=== PATIENT | female | born 1960 | race Caucasian/White ===

== ENCOUNTER 2019-11-30 14:08 | Outpatient (CLI) | payer MEDICARE, MEDICAID, SELFPAY | END 2019-11-30 14:09 | disposition home or self-care (01) | LOC: LAB 14:13 | PROVIDERS: Family Provider Family Medicine; PCP Family Medicine; Visit Provider Nurse Practitioner Family | DX: R91.8 Other nonspecific abnormal finding of lung field (principal) | CPT/HCPCS: 36415; 85610 ==

== ENCOUNTER → 2020-01-12 12:47 | Outpatient (BNVA) | payer MEDICARE, MEDICAID, SELFPAY | PROVIDERS: Family Provider Family Medicine; PCP Family Medicine; Referring Provider Registered Nurse; Visit Provider Anesthesiology Pain Medicine | DX: M54.16 Radiculopathy, lumbar region (principal); M54.2 Cervicalgia; M96.1 Postlaminectomy syndrome, not elsewhere classified; F17.210 Nicotine dependence, cigarettes, uncomplicated; Z79.891 Long term (current) use of opiate analgesic | CPT/HCPCS: 99203; 99999 ==

== ENCOUNTER → 2020-02-09 09:39 | Outpatient (BNVA) | payer MEDICARE, MEDICAID, SELFPAY | PROVIDERS: Family Provider Family Medicine; PCP Family Medicine; Visit Provider Anesthesiology Pain Medicine | DX: M54.2 Cervicalgia (principal); M96.1 Postlaminectomy syndrome, not elsewhere classified; M54.16 Radiculopathy, lumbar region; F17.210 Nicotine dependence, cigarettes, uncomplicated; Z79.891 Long term (current) use of opiate analgesic | CPT/HCPCS: 99213; 99214 ==

== ENCOUNTER → 2020-04-13 08:52 | Outpatient (BNVA) | payer MEDICARE, MEDICAID, SELFPAY | PROVIDERS: Family Provider Family Medicine; PCP Family Medicine; Visit Provider Anesthesiology Pain Medicine | DX: M54.16 Radiculopathy, lumbar region (principal); M54.9 Dorsalgia, unspecified; M96.1 Postlaminectomy syndrome, not elsewhere classified; M43.6 Torticollis; M54.2 Cervicalgia; F17.210 Nicotine dependence, cigarettes, uncomplicated; Z79.891 Long term (current) use of opiate analgesic | CPT/HCPCS: 99213 ==

== ENCOUNTER → 2020-04-22 13:03 | Outpatient (BNVA) | payer MEDICARE, MEDICAID, SELFPAY | PROVIDERS: Family Provider Family Medicine; PCP Family Medicine; Visit Provider Anesthesiology Pain Medicine | DX: M43.6 Torticollis (principal); M54.2 Cervicalgia; F17.210 Nicotine dependence, cigarettes, uncomplicated; Z79.891 Long term (current) use of opiate analgesic | CPT/HCPCS: 64616; 64642; J0585 ==

== ENCOUNTER → 2020-05-06 10:24 | Outpatient (BNVA) | payer MEDICARE, MEDICAID, SELFPAY | PROVIDERS: Family Provider Family Medicine; PCP Family Medicine; Visit Provider Anesthesiology Pain Medicine | DX: M54.16 Radiculopathy, lumbar region (principal); M54.9 Dorsalgia, unspecified; M96.1 Postlaminectomy syndrome, not elsewhere classified; M43.6 Torticollis; M54.2 Cervicalgia | CPT/HCPCS: 99213 ==

== ENCOUNTER 2020-06-12 21:48 | Emergency (ER) | payer MEDICARE, MEDICAID, SELFPAY ==
[2020-06-12 22:01] VITALS: BP 164/88; PULSE 90; RESP 20; TEMP 36.9; O2SAT 95; BMI 29.8
--- NOTE | 2020-06-12 22:16 | XRR_ITS ---
PROCEDURE INFORMATION: Exam: XR Chest, 1 View Exam date and time: 06/12/2020 11:09 PM Age: 60 years old Clinical indication: Prior surgery; Surgery type: C spine; Patient HX: RT side mouth droop; Additional info: Stroke symptoms, hypertensive TECHNIQUE: Imaging protocol: XR of the chest Views: Frontal portable supine view of the chest. COMPARISON: CR Chest 1 [place] [id number] 05/28/2019 11:00 AM FINDINGS: Lungs: Stable right basilar pulmonary subsegmental atelectasis. The lungs are otherwise peripherally clear bilaterally. The pulmonary vasculature is normal. Pleural space: No pleural effusion. No pneumothorax. Heart/Mediastinum: The heart is normal in size and contour. Mediastinum: Stable. Diaphragm: The right hemidiaphragm remains moderately elevated. Bones/joints: Posterior cervicothoracic fixation hardware. Lower cervical spinal anterior fixation hardware. Right lateral vertebral body marginal osteophytes are noted at multiple thoracic spinal levels. XR/XR chest 1V portable [id number] IMPRESSION: Stable right basilar pulmonary subsegmental atelectasis.
--- NOTE | 2020-06-12 22:16 | CTR_ITS ---
PROCEDURE INFORMATION: Exam: CT Head Without Contrast Exam date and time: 06/12/2020 10:26 PM Age: 60 years old Clinical indication: Weakness, facial; Prior surgery; Surgery date: 6+ months; Surgery type: Spine; Additional info: Stroke symptoms TECHNIQUE: Imaging protocol: Computed tomography of the head without contrast. Radiation optimization: All CT scans at this facility use at least one of these dose optimization techniques: automated exposure control; mA and/or kV adjustment per patient size (includes targeted exams where dose is matched to clinical indication); or iterative reconstruction. COMPARISON: CT head wo con* [id number] 05/28/2019 1:44 PM RADIATION DOSE METRICS: Total DLP (mGy-cm): 1592.16 FINDINGS: Brain: No acute intracranial hemorrhage or mass effect. No definite acute infarct by CT. MRI could be more sensitive/specific for detection, as clinically directed. Ventricles: Ventricle size is normal for age. Bones/joints: No definite acute skull fracture. Prior cranial-cervical fusion. Sinuses: Included paranasal sinuses are essentially clear. Mastoid air cells: No significant acute finding. CT/CT head wo con* [id number] IMPRESSION: 1. No acute intracranial hemorrhage or mass effect. 2. No definite acute infarct by CT, see above. 3. Other findings discussed above. 4. Some limitations due to artifact from patient motion. Radiation Dose CTDIVOL = (mGy): DLP = 1592.16 (mGy-cm)
--- NOTE | 2020-06-12 22:18 | ECG_ITS ---
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 Measurements Intervals [place] Rate: 78 P: 72 [place]: 160 QRS: 50 QRSD: 77 T: 66 QT: 375 QTc: 428 Interpretive Statements SINUS RHYTHM POSSIBLE LEFT ATRIAL ENLARGEMENT [-0.1mV P WAVE IN V1/V2] MINIMAL ST DEPRESSION [0.025+ mV ST DEPRESSION] Compared to ECG 05/28/2019 14:41:07 Sinus tachycardia no longer present ST (T wave) deviation still present Electronically Signed On 06-13-2020 21:28:08 CDT by Dora Rodríguez M.D. [id number]
[2020-06-12 22:31] VITALS: BP 193/80; PULSE 88; RESP 16; O2SAT 96
[2020-06-12 23:04] VITALS: RESP 16; O2SAT 97
[2020-06-12] MEDS: ondansetron 2 mg/ML SDV 2 mL 4 MG IVP (23:04)
[2020-06-12] MEDS: fentaNYL 50 mcg/mL INJ 2mL 100 MCG IVP (23:04)
[2020-06-12 23:19] LABS: Basophils # 0.1 10^3/uL (0.0-0.1); Basophils % 0.3 %; Eosinophils # 0.1 10^3/uL (0.0-0.8); Eosinophils % 0.6 %; Hematocrit 46.3 % (37.0-47.0); Hemoglobin 14.9 g/dL (11.5-15.3); Lymphocytes # 1.8 10^3/uL (0.8-4.8); Mean Corpuscular HGB Conc 32.2 g/dL (30.0-36.0); Mean Corpuscular Hemoglobin 32.3 pg (28.0-34.0); Mean Corpuscular Volume 100.2 fL (81-99); Mean Platelet Volume 11.2 fL (7.4-10.4); Monocytes # 1.4 10^3/uL (0.2-0.9); Monocytes % 7.7 %; Neutrophils # 14.71 10^3/uL (1.8-7.7); Neutrophils % 81.1 %; Nucleated Red Blood Cells % 0 %; Platelet Count 329 10^3/cmm (130-400); Red Blood Count 4.62 10^6/uL (4.1-5.3); Red Cell Distribution Width 13.8 % (12.1-15.1); White Blood Count 18.1 10^3/uL (4.0-10.0)
[2020-06-12 23:47] LABS: Alanine Aminotransferase 14 U/L (0-33); Albumin Level 4.6 g/dL (3.5-5.2); Alkaline Phosphatase 71 IU/L (35-105); Aspartate Amino Transferase 17 U/L (0-32); Blood Urea Nitrogen 12 mg/dL (8-23); Calcium 10.9 mg/dL (8.5-10.5); Carbon Dioxide 28 mmol/L (22-29); Chloride 98 mmol/L (98-107); Chol HDL Ratio 4.67 mg/dL (0.0-4.40); Cholesterol 182 mg/dL (0-200); Creatine Phosphokinase 92 U/L (26-192); Globulin 3.4 g/dL (1.3-4.6); Glomerular Filtration Rate 162.8 mL/min (90-130); Glucose 79 mg/dL (65-115); HDL Cholesterol 39 mg/dL (60-100); LDL Cholesterol Calculated 86 mg/dL (50-129); LDL HDL Ratio 2.21 RATIO (0.00-3.22); Osmolality Calculated 283 mOsm/kg (285-295); Sodium 139 mmol/L (136-145); Total Bilirubin 0.2 mg/dL (0.15-1.2); Triglycerides 287 mg/dL (0-150)
[2020-06-12 23:49] LABS: Alcohol Level < 10 mg/dL (0-10)
[2020-06-12 23:53] LABS: INR 0.97 (0.8-1.2)
[2020-06-12 23:54] LABS: Partial Thromboplastin Time 31.4 SECONDS (23.9-36.7)
[2020-06-13] LABS: Anion Gap 16.6 (5-19); Potassium 3.6 mmol/L (3.5-5.1)
[2020-06-13 00:44] VITALS: BP 143/96; PULSE 82; RESP 16; O2SAT 97
[2020-06-13 00:45] VITALS: RESP 16
[2020-06-13 00:59] LABS: Amphetamines Screen Urine Positive (Negative); Barbiturates Screen Urine Negative (Negative); Benzodiazepines Screen Urine Positive (Negative); Cocaine Screen Urine Negative (Negative); Opiate Screen Urine Negative (Negative); PCP Screen Urine Positive (Negative); THC Screen Urine Negative (Negative)
[2020-06-13 01:00] LABS: Add Urine Culture? Yes; Add Urine Microscopic? YES; Bacteria Urine 2+; Bilirubin Urine Neg (NEGATIVE); Blood Urine 3+ (Negative); Glucose Urine UA Norm (Normal); Ketones Urine Negative (Negative); Leukocyte Esterase Urine Negative (Negative); Nitrate Urine Negative (Negative); Protein Urine Neg (Negative); RBC Urine 0-4 /hpf (0-2); Squamous Epithelial Cell Urine 0-4 (0-5); Urine Appearance SL Hazy (CLEAR); Urine Color Yellow (Yellow); Urobilinogen Urine Norm (Negative); WBC Urine 0-4 /hpf (0-5); pH Urine 6 (5-7)
[2020-06-13 02:42] VITALS: BP 175/105; PULSE 86; RESP 15; O2SAT 97
--- NOTE | 2020-06-13 08:57 | ED_ITS ---
HPI - Neuro Symptoms/Deficit General: Chief Complaint: Neuro Symptoms/Deficit Stated Complaint: hypertensive Time Seen by Provider: 06/12/20 22:02 History of Present Illness: HPI Narrative: 60-year-old female presents with multiple complaints. She is a little hard to sort out, and is a poor historian. She reports that on the morning prior, she had experienced a sudden change in her vision, with weakness that was essentially her whole body. She is unable to walk at baseline and has chronic contractures of her lower extremities uses a wheelchair. She states she was unable to move her arms. This quickly resolved. She has been hypertensive at home she says. She also admitted to EMS, that she may have smoked illicit substances prior to their arrival. Onset (ago): day(s) (1.5) Location: speech History of same: No Severity: moderate Quality: weak and tingling Relieving factors: time Exacerbating factors: none Context: sudden onset On Anticoagulants: No Associated symptoms: Reports chest pain, headache(s), nausea and short of breath; Deny fevers/chills or vomiting Treatments Prior to Arrival: none Review of Systems Const: Denies: fever(s) or chills Eyes: Reports: change in vision ENMT: Denies: swelling of lips/tongue, change in hearing or sinus pain Card: Reports: chest pain and palpitations; Denies: irregular heart rhythm, swelling of feet/ankles, dyspnea on exertion or orthopnea Resp: Denies: dyspnea, productive cough, non-productive cough or wheezing GI: Reports: nausea; Denies: vomiting : Denies: dysuria or hematuria Musc: Reports: neck pain and back pain Skin/Breast: Denies: rash, pruritus or erythema Neuro: Reports: headache(s) Psych: Reports: visual hallucinations; Denies: anxiety or auditory hallucinations PFSH ED PFSH: Family History Family/Other Hypertension Depression Anxiety Diabetes Social History Smoking and tobacco status: current every day smoker cigarettes Packs smoked per day: 1.5 Quit status (tobacco): considering quitting Second hand smoke exposure: No Alcohol intake: never Household members: spouse Marital status: History of recent travel: No Physical Exam Const: GENERAL APPEARANCE: well developed ORIENTATION/CONSCIOUSNESS: Yes oriented to person and Yes oriented to place; not oriented to time HENMT: COMMON NORMALS: normocephalic, external ears normal and Normal external nose present HEAD & SCALP: normocephalic FACE & SINUS: normal facial exam NOSE: Normal external nose present and No nasal discharge present EXTERNAL EAR: Yes external ears normal Eye: COMMON NORMALS: Equal, round and reactive pupils present, EOMs intact bilaterally and conjunctivae normal EYELID: eyelids normal CONJUNCTIVA: Yes conjunctivae normal PUPIL: Yes Equal, round and reactive pupils present Neck/C-Spine: GENERAL: No tracheal deviation CERVICAL SPINE: Yes Cervical spine tenderness Chest: COMMONS NORMALS: normal inspection of the chest CHEST: No tenderness Resp: COMMON NORMALS: clear to auscultation bilaterally EFFORT & INSPECTION: Yes tachypneic, No respiratory distress, No retractions, No uses accessory muscles and No tracheal deviation AUSCULTATION: clear to auscultation bilaterally, no rhonchi, no wheezes and lung sounds not diminished Cardio: COMMON NORMALS: regular rate and regular rhythm RATE: regular rate RHYTHM: regular rhythm HEART SOUNDS: no murmurs PERIPHERAL PULSES: radial pulses present GI: INSPECTION: No abdominal distension AUSCULTATION: No Hyperactive bowel sounds present and No Hypoactive bowel sounds present PALPATION: No Guarding due to palpation present (GI) and No Rigid due to palpation PERCUSSION: no dullness to percussion and no tympanic to percussion Neuro: SENSORIUM/ORIENTATION: Yes oriented to person, Yes oriented to place and No oriented to time Psych: APPEARANCE: Yes grossly normal and Yes unkempt ATTITUDE: Yes bizarre ACTIVITY/MOTOR BEHAVIOR: Yes psychomotor agitation and Yes fidgeting SPEECH: Yes rapid MOOD & AFFECT: Yes anxious THOUGHT PROCESS: disorganized Course Vital Signs: Vital signs: Vital Signs Temperature 98.5 F 06/12/20 22:01 Pulse Rate 86 06/13/20 02:42 Respiratory Rate 15 06/13/20 02:42 Blood Pressure 175/105 06/13/20 02:42 Pulse Oximetry 97 06/13/20 02:42 MDM - Neuro Symptoms/Deficit MDM Narrative: Medical decision making narrative: This 60-year-old lady presents with neck pain and headache. She has been hypertensive. Her hypertension improved on its own. Her white blood cell count was 18 with a bit of a left shift. She is afebrile. There was no source of infection found chest x-ray was negative. Head CT did not reveal any hemorrhage. Her urine drug screen was positive for multiple substances including PCP, methamphetamine, and benzodiazepines. Her headache improved with administration of pain medication. She will be allowed home. Lab Data: Labs: Lab Results 06/12/20 06/12/20 06/12/20 Range/Units 23:05 23:05 23:05 WBC 18.1 H (4.0-10.0) 10^3/ uL RBC 4.62 (4.1-5.3) 10^6/u L Hgb 14.9 (11.5-15.3) g/dL Hct 46.3 (37.0-47.0) % MCV 100.2 H (81-99) fL MCH 32.3 (28.0-34.0) pg MCHC 32.2 (30.0-36.0) g/dL RDW 13.8 (12.1-15.1) % Plt Count 329 (130-400) 10^3/c mm MPV 11.2 H (7.4-10.4) fL Neut % (Auto) 81.1 % Lymph % (Auto) 10.0 % [place] % (Auto) 7.7 % Eos % (Auto) 0.6 % Baso % (Auto) 0.3 % Neut # (Auto) 14.71 H (1.8-7.7) 10^3/u L Lymph # (Auto) 1.8 (0.8-4.8) 10^3/u L [place] # (Auto) 1.4 H (0.2-0.9) 10^3/u L Eos # (Auto) 0.1 (0.0-0.8) 10^3/u L Baso # (Auto) 0.1 (0.0-0.1) 10^3/u L Nucleated RBC % (a uto) 0 % Nucleated RBCs # 0.0 /100WBC PT 13.20 (10.5-13.3) SECO NDS INR 0.97 (0.8-1.2) APTT 31.4 (23.9-36.7) SECO NDS Sodium 139 (136-145) mmol/L Potassium 3.6 (3.5-5.1) mmol/L Chloride 98 (98-107) mmol/L Carbon Dioxide 28 (22-29) mmol/L Anion Gap 16.6 (5-19) BUN 12 (8-23) mg/dL Creatinine 0.4 L (0.5-0.9) mg/dL GFR Calculation 162.8 H (90-130) mL/min Glucose 79 (65-115) mg/dL Calculated Osmolal ity 283 L (285-295) mOsm/k g Calcium 10.9 H (8.5-10.5) mg/dL Total Bilirubin 0.2 (0.15-1.2) mg/dL AST 17 (0-32) U/L ALT 14 (0-33) U/L Alkaline Phosphata se 71 (35-105) IU/L Creatine Kinase 92 (26-192) U/L Total Protein 8.0 (6.6-8.7) g/dL Albumin 4.6 (3.5-5.2) g/dL Globulin 3.4 (1.3-4.6) g/dL Triglycerides 287 H (0-150) mg/dL Cholesterol 182 (0-200) mg/dL LDL Cholesterol, C alc 86 (50-129) mg/dL HDL Cholesterol 39 L (60-100) mg/dL LDL/HDL Ratio 2.21 (0.00-3.22) RATI O Cholesterol/HDL Ra shaan 4.67 H (0.0-4.40) mg/dL Urine Color (Yellow) Urine Appearance (CLEAR) Urine pH (5-7) Ur Specific Gravit y (1.005-1.030) Urine Protein (Negative) Urine Glucose (UA) (Normal) Urine Ketones (Negative) Urine Blood (Negative) Urine Nitrate (Negative) Urine Bilirubin (NEGATIVE) Urine Urobilinogen (Negative) mg/dL Ur Leukocyte Maria C ase (Negative) Urine RBC (0-2) /hpf Urine WBC (0-5) /hpf Ur Squamous Epith Cells (0-5) Amorphous Sediment Urine Bacteria (NONE) Urine Opiates Scre en (Negative) ng/mL Ur Barbiturates Sc reen (Negative) ng/mL Ur Phencyclidine S crn (Negative) ng/mL Ur Amphetamines Sc reen (Negative) ng/mL U Benzodiazepines Scrn (Negative) ng/mL Urine Cocaine Scre en (Negative) ng/mL U Marijuana (THC) Screen (Negative) ng/mL Ethyl Alcohol < 10 (0-10) mg/dL 06/13/20 06/13/20 Range/Units 00:46 00:46 WBC (4.0-10.0) 10^3/ uL RBC (4.1-5.3) 10^6/u L Hgb (11.5-15.3) g/dL Hct (37.0-47.0) % MCV (81-99) fL MCH (28.0-34.0) pg MCHC (30.0-36.0) g/dL RDW (12.1-15.1) % Plt Count (130-400) 10^3/c mm MPV (7.4-10.4) fL Neut % (Auto) % Lymph % (Auto) % [place] % (Auto) % Eos % (Auto) % Baso % (Auto) % Neut # (Auto) (1.8-7.7) 10^3/u L Lymph # (Auto) (0.8-4.8) 10^3/u L [place] # (Auto) (0.2-0.9) 10^3/u L Eos # (Auto) (0.0-0.8) 10^3/u L Baso # (Auto) (0.0-0.1) 10^3/u L Nucleated RBC % (a uto) % Nucleated RBCs # /100WBC PT (10.5-13.3) SECO NDS INR (0.8-1.2) APTT (23.9-36.7) SECO NDS Sodium (136-145) mmol/L Potassium (3.5-5.1) mmol/L Chloride (98-107) mmol/L Carbon Dioxide (22-29) mmol/L Anion Gap (5-19) BUN (8-23) mg/dL Creatinine (0.5-0.9) mg/dL GFR Calculation (90-130) mL/min Glucose (65-115) mg/dL Calculated Osmolal ity (285-295) mOsm/k g Calcium (8.5-10.5) mg/dL Total Bilirubin (0.15-1.2) mg/dL AST (0-32) U/L ALT (0-33) U/L Alkaline Phosphata se (35-105) IU/L Creatine Kinase (26-192) U/L Total Protein (6.6-8.7) g/dL Albumin (3.5-5.2) g/dL Globulin (1.3-4.6) g/dL Triglycerides (0-150) mg/dL Cholesterol (0-200) mg/dL LDL Cholesterol, C alc (50-129) mg/dL HDL Cholesterol (60-100) mg/dL LDL/HDL Ratio (0.00-3.22) RATI O Cholesterol/HDL Ra shaan (0.0-4.40) mg/dL Urine Color Yellow (Yellow) Urine Appearance Sl hazy (CLEAR) Urine pH 6 (5-7) Ur Specific Gravit y 1.020 (1.005-1.030) Urine Protein Neg (Negative) Urine Glucose (UA) Norm (Normal) Urine Ketones Negative (Negative) Urine Blood 3+ H (Negative) Urine Nitrate Negative (Negative) Urine Bilirubin Neg (NEGATIVE) Urine Urobilinogen Norm (Negative) mg/dL Ur Leukocyte Maria C ase Negative (Negative) Urine RBC 0-4 H (0-2) /hpf Urine WBC 0-4 H (0-5) /hpf Ur Squamous Epith Cells 0-4 H (0-5) Amorphous Sediment Not Reportable Urine Bacteria 2+ H (NONE) Urine Opiates Scre en Negative (Negative) ng/mL Ur Barbiturates Sc reen Negative (Negative) ng/mL Ur Phencyclidine S crn Positive H (Negative) ng/mL Ur Amphetamines Sc reen Positive H (Negative) ng/mL U Benzodiazepines Scrn Positive H (Negative) ng/mL Urine Cocaine Scre en Negative (Negative) ng/mL U Marijuana (THC) Screen Negative (Negative) ng/mL Ethyl Alcohol (0-10) mg/dL Discharge Plan Discharge Patient Disposition: Home Clinical Impression: Substance abuse Headache Qualifiers: Headache type: unspecified Headache chronicity pattern: acute headache Intractability: intractable Qualified Code(s): R51 - Headache Condition: Stable Prescriptions: No Action atenolol 100 mg tablet 100 mg PO BID RF: 0 clonidine HCl 0.1 mg tablet 0.1 mg PO BID RF: 0 furosemide [Lasix] 40 mg tablet 40 mg PO DAILY RF: 0 potassium chloride 20 mEq tablet extended release 20 meq PO DAILY RF: 0 gabapentin 300 mg capsule 300 mg PO .2-3 caps TID RF: 0 aspirin 325 mg tablet 325 mg PO BID RF: 0 metformin 1,000 mg tablet 1,000 mg PO BID RF: 0 fenofibrate micronized 200 mg capsule 200 mg PO .1 HS RF: 0 venlafaxine [Effexor XR] 75 mg capsule,extended release 24hr 75 mg PO .3 day RF: 0 prochlorperazine maleate [Compazine] 10 mg tablet 10 mg PO DAILY PRNRF: 0 lisinopril 40 mg tablet 40 mg PO DAILY RF: 0 cholecalciferol (vitamin D3) 1,250 mcg (50,000 unit) capsule PO .1 week RF: 0 calcium carbonate 500 mg calcium (1,250 mg) tablet 500 mg PO BID RF: 0 oxycodone-acetaminophen 10-325 mg tablet 1 tab PO TID MDD 3 PRN (Reason: chronic pain) 30 Days Qty: 75 RF: 0 tizanidine 4 mg tablet 4 mg PO TID MDD 3 PRN (Reason: muscle spasticity) Qty: 60 RF: 0 Discharge Orders: Discharge Order (Routine); Ordered 06/13/20 Ordered By: Jose Angel Becker Referrals: Debbie Dietz DO [Primary Care Provider] - 4-7 days Discharge Diet: Advance as tolerated Discharge Activity: Increase activity as tolerated Patient Instructions: Acute Headache (ED), Methamphetamine Abuse (ED) Activity Restrictions/Additional Instructions: Avoid the use of illicit substances, as they can cause drug symptoms. Follow-up with your doctor. Return for worsening mental status, weakness to one side, intense dizziness, other concerning symptoms. Discharge Date/Time: 06/13/20 02:48 Coding Level of Care Code ED Chief Digital Media Officer for Trent Crews
== END 2020-06-13 02:48 | disposition home or self-care (01) ==
PROVIDERS: Emergency Provider Emergency Medicine; PCP Family Medicine
DX: R51 Headache (principal); F19.10 Other psychoactive substance abuse, uncomplicated; Z79.82 Long term (current) use of aspirin; F17.210 Nicotine dependence, cigarettes, uncomplicated; R07.9 Chest pain, unspecified; Z79.899 Other long term (current) drug therapy
CPT/HCPCS: 12345; 70450; 71045; 80053; 80061; 80306; 80307; 81001; 81003; 82550; 85025; 85610; 85730; 87077; 87086; 87186; 93005; 96374; 96375; 99284; J2405; J3010

== ENCOUNTER 2020-10-21 12:26 | Outpatient (CLI) | payer MEDICARE, MEDICAID, SELFPAY ==
--- NOTE | 2020-10-21 13:15 | MM_ITS ---
WS: [id number] BILATERAL DIGITAL DIAGNOSTIC MAMMOGRAM MAMMOGRAPHY WITH CAD CLINICAL INFORMATION: LEFT BREAST PAIN;LEFT BREAST LUMP;DECREASE IN BREAST SIZE COMPARISON: September 07, 2016 TECHNIQUE: Bilateral CC, MLO, and ML views. FINDINGS: Scattered fibroglandular densities bilaterally. Palpable marker inferior left breast. Small adjacent ovoid opacity measuring 6 mm nonspecific. Punctate calcifications left breast. Ultrasound left breast pending. No abnormalities in the right breast. ULTRASOUND BREAST LEFT TECHNIQUE: Ultrasound left breast focused area of concern. CLINICAL INFORMATION: LEFT BREAST PAIN;LEFT BREAST LUMP;DECREASE IN BREAST SIZE COMPARISON: None. FINDINGS: Ultrasound left breast at the 6 clock position. Cystic lesion at the 6 clock position 1 cm from the nipple measuring 3.9 x 4.6 mm has a benign appearance. Additional hypoechoic lesion with mixed echogenicity 1 cm from the nipple measuring 4.1 x 2.6 x 4.0 m m. This is nonspecific and recommend further evaluation with ultrasound-guided biopsy. IMPRESSION: MM/[place] [id number] BI-RADS: 4-Suspicious Finding-Biopsy Should Be Considered FOLLOW UP: US Guided Biopsy Recommended RECOMMEND ULTRASOUND-GUIDED BIOPSY LEFT BREAST
== END 2020-10-21 12:27 | disposition home or self-care (01) ==
LOC: RADSHAW 12:34
PROVIDERS: PCP Family Medicine; Visit Provider Registered Nurse
DX: N64.4 Mastodynia (principal); N63.25 Unspecified lump in the left breast, overlapping quadrants; N64.89 Other specified disorders of breast
CPT/HCPCS: 76642; 77066

== ENCOUNTER 2020-10-21 12:36 | Outpatient (CLI) | payer MEDICARE, MEDICAID, SELFPAY ==
--- NOTE | 2020-10-21 12:40 | MR_ITS ---
WS: [id number] MRI LUMBAR SPINE NONCONTRAST TECHNIQUE: Sagittal T1, T2 and STIR imaging. Axial T1 and T2 imaging. CLINICAL INFORMATION: SPONDYLOSIS, AE RELATED OSTEOPOROSIS, PATH FX COMPARISON: MRI FINDINGS: Lumbar scoliosis. No acute compression. Grade 1 anterolisthesis L4 on L5. Moderate spondylitic change s. Slight anterolisthesis L5 on S1. L1-L2: Mild disc bulging with osteophytic ridging. Mild facet arthropathy. Prominent dorsal epidural fat results in moderate central canal stenosis progressed since the prior examination 2006. Moderate right and no significant left foraminal narrowing. L2-L3: Mild disc osteophyte complex with endplate ridging. Narrowing of the left subarticular recess. Moderate central canal stenosis due to prominent epidural fat. Moderate facet arthropathy. Mild bila teral foraminal narrowing left greater than right. L3-L4: Disc osteophyte complex with endplate ridging. Impingement on the left subarticular recess and traversing left L4 nerve root. Moderate central canal stenosis mainly due to prominent dorsal epidur al fat. Moderate facet arthropathy. Moderate left foraminal narrowing. L4-L5: Grade 1 anterolisthesis. Disc bulging with osteophytic ridging. Moderate central canal stenosi s with impingement traversing left L5 nerve root. Advanced facet arthropathy. Mild left and no signif icant right foraminal narrowing. L5-S1: Slight anterolisthesis. Advanced facet arthropathy. Spinal canal and foramen are patent. Prior postoperative changes in the lower cervical spine. Visualized pelvic bony structures: Normal. Paravertebral soft tissues: Normal. MR/MR lumbar spine wo con* [id number] IMPRESSION: 1. Mild lumbar curve. No acute compression. Grade 1 anterolisthesis L4 on L5 m easuring 3 mm. Trace anterolisthesis L5 on S1. 2. Moderate central canal stenosis L1-L2, L2-L3 and L3-L4 due to disc osteophy te complexes with facet arthropathy and prominent dorsal epidural fat. This is new since 2006 3. Moderate to severe central canal stenosis L4-5 with impingement on the left subarticular recess and traversing left L5 nerve root. Advanced facet arthropa thy at this level. This is also new from previous. 4. Impingement on the left subarticular recess L3-4 and traversing left L4 ner ve root. 5. Mild to moderate bony foraminal narrowing described above worse at left L2- 3, left L3-4, and left L4-5. 6. Advanced arthropathy L4-L5 and L5-S1.
== END 2020-10-21 12:37 | disposition home or self-care (01) ==
LOC: RADSHAW 12:38
PROVIDERS: PCP Family Medicine; Visit Provider Neurological Surgery
DX: M81.0 Age-related osteoporosis without current pathological fracture (principal); M48.061 Spinal stenosis, lumbar region without neurogenic claudication
CPT/HCPCS: 72148

== ENCOUNTER 2020-11-04 11:36 | Outpatient (CLI) | payer MEDICARE, MEDICAID, SELFPAY ==
--- NOTE | 2020-11-04 11:45 | US_ITS ---
WS: [id number] ULTRASOUND-GUIDED LEFT BREAST BIOPSY HISTORY: ABNORMAL MAMMO/L BREAST LESION COMPARISON: 10/21/2020. Procedure, risks and complications are explained to the patient. Medications are reviewed. Consent is obtained. The mass in the LEFT breast is localized with ultrasound. Mass localized to 6:00, 1 cm from the nippl e. Skin is cleansed with ChloraPrep and anesthetized with 1% buffered lidocaine. Small dermatome is m gerardo. Under sterile conditions mass is biopsied with a 14-gauge Achieve needle. Multiple core biopsies are performed. Material placed in formalin and sent to pathology for review. No complications encoun tered. This lesion was very difficult to reimage after the first initial biopsy. Only 2-3 biopsies we re submitted. Breast tissue marker (Bard ultrasound enhanced ribbon): None. Patient left the radiology suite with no complications. Patient is instructed to return to [facility] [place] [facility] with any concerns. US/[place] [id number] IMPRESSION: 1. Uncomplicated core needle biopsy LEFT breast mass at 6:00, 1 cm from the ni pple. PATHOLOGY: Benign breast tissue with fibrocystic changes. No malignancy. RECOMMENDATION: Return to annual screening mammogram. Mammographic and patholog y findings are concordant.
== END 2020-11-04 11:37 | disposition home or self-care (01) ==
LOC: RAD 11:40
PROVIDERS: PCP Family Medicine; Visit Provider Registered Nurse
DX: R92.8 Other abnormal and inconclusive findings on diagnostic imaging of breast (principal); N64.89 Other specified disorders of breast; N63.20 Unspecified lump in the left breast, unspecified quadrant
CPT/HCPCS: 19083; 88305

== ENCOUNTER 2020-12-27 00:27 | Inpatient (IN) | payer MEDICARE, MEDICAID, SELFPAY ==
[2020-12-27] VITALS (199 sets, daily range): BP systolic 83–178; BP diastolic 32–109; PULSE 74–129; RESP 10–54; TEMP 36.2–38.5; O2SAT 71–100; BMI 33.9
--- NOTE | 2020-12-27 00:35 | ECG_ITS ---
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 Measurements Intervals [place] Rate: 80 P: 63 TN: 146 QRS: 9 QRSD: 101 T: 62 QT: 387 QTc: 447 Interpretive Statements SINUS RHYTHM POSSIBLE LEFT ATRIAL ENLARGEMENT [-0.1mV P WAVE IN V1/V2] POSSIBLE LEFT VENTRICULAR HYPERTROPHY [VOLTAGE CRITERIA PLUS LAE OR QRS WIDENING] NONSPECIFIC T-WAVE ABNORMALITY Compared to ECG 06/13/2020 01:05:02 T-wave abnormality now present ST (T wave) deviation no longer present Electronically Signed On 12-27-2020 19:48:49 RELOCATION SPECIALIST by Pat Whitley M.D. [id number]
--- NOTE | 2020-12-27 00:35 | XRR_ITS ---
PROCEDURE INFORMATION: Exam: XR Chest, 1 View Exam date and time: 12/27/2020 12:38 AM Age: 60 years old Clinical indication: Other: AMS; Prior surgery; Surgery type: C spine TECHNIQUE: Imaging protocol: XR of the chest Views: 1 view. COMPARISON: CR XR chest 1V portable [id number] 06/12/2020 10:58 PM FINDINGS: Lungs: Unremarkable. No consolidation. Pleural spaces: Unremarkable. No pleural effusion. No pneumothorax. Heart/Mediastinum: The heart is normal for the AP projection. Diaphragm: There is stable chronic elevation of the right hemidiaphragm. Bones/joints: The patient has undergone lower cervical upper thoracic surgical fusion with metal screws and rods. XR/XR chest 1V portable [id number] IMPRESSION: No acute abnormalities are seen in the chest.
--- NOTE | 2020-12-27 00:35 | CTR_ITS ---
PROCEDURE INFORMATION: Exam: CT Head Without Contrast Exam date and time: 12/27/2020 12:38 AM Age: 60 years old Clinical indication: Altered mental status/memory loss; Confusion or disorientation; Additional info: AMS TECHNIQUE: Imaging protocol: Computed tomography of the head without contrast. Radiation optimization: All CT scans at this facility use at least one of these dose optimization techniques: automated exposure control; mA and/or kV adjustment per patient size (includes targeted exams where dose is matched to clinical indication); or iterative reconstruction. COMPARISON: CT head wo con* [id number] 06/12/2020 11:18 PM RADIATION DOSE METRICS: Total DLP (mGy-cm): 1452.71 FINDINGS: Brain: Normal. No hemorrhage or CT evidence of acute infarction is seen. No mass effect. Cerebral ventricles: No ventriculomegaly. Bones/joints: Posterior craniocervical fusion changes are noted. No acute fracture. Paranasal sinuses: Visualized sinuses are unremarkable. No fluid levels. Mastoid air cells: Visualized mastoid air cells are well aerated. Soft tissues: Unremarkable. CT/CT head wo con* [id number] IMPRESSION: No acute intracranial abnormality. Radiation Dose CTDIVOL = (mGy): DLP = 1452.71 (mGy-cm)
--- NOTE | 2020-12-27 00:43 | ED_ITS ---
HPI - Altered Mental Status General: Chief Complaint: Altered Mental Status Stated Complaint: AMS Time Seen by Provider: 12/27/20 00:28 Source: EMS Mode of arrival: EMS Limitations: altered mental status History of Present Illness: HPI narrative: 60-year-old female brought in by EMS after family found her with altered mental status just before calling 911. She was last seen at her normal baseline approximately 12 hours ago. On review of her prior records, she has history of hypertension, hyperlipidemia, chronic pain, depression, [id number] diabetes. MD complaint: altered mental status and decreased responsiveness Onset (ago): hour(s) Treatments prior to arrival: IV fluid and oxygen Review of Systems General: Reports: ROS unobtainable due to mental status PFS ED PFSH: Medical History (Updated 12/28/20 @ 16:05 by Eduardo Pineda MD) Cervical post-laminectomy syndrome Fxrfudc-Pxhfk-Mozly disease-like deformity of foot right Chronic pain Depression with anxiety Diabetes mellitus, type II History of cardioversion history of SVT vs for other arrhythmia History of DVT of lower extremity post-operative Hyperlipidemia Hypertension Lumbar radiculopathy Lung cancer according to pain clinic notes, managed at [facility], underwent radiation therapy in 2019 Torticollis, acquired Has had good results with Botox in the past Surgical History (Updated 12/27/20 @ 05:19 by Alejandra Valencia MD) History of arthroplasty of left knee (~1976) History of partial hysterectomy Hx of appendectomy Hx of dilation and curettage Hx of neck surgery x 2, posterior laminectomy and cervical fusion with hardware in place, limite d ROM neck at baseline Hx of total knee replacement (~2010) Right Hx of tubal ligation Family History (Updated 12/27/20 @ 05:21 by Alejandra Valencia MD) Family/Other Hypertension Depression Anxiety Diabetes Father Aneurysm Mother Hypertension Brother Diabetes Sister Diabetes Social History (Updated 12/27/20 @ 05:22 by Alejandra Valencia MD) Alcohol intake: never Substance/Drug Use: current Substance/Drug use type: Methamphetamine Marital status: Additional social history: unknown if patient continues to smoke, documented to smoke previously Physical Exam Const: EXAM LIMITATIONS: altered mental status GENERAL APPEARANCE: disheveled, ill appearing and diaphoretic NUTRITIONAL APPEARANCE: overweight ORIENTATION/CONSCIOUSNESS: Yes patient obtunded HENMT: COMMON NORMALS: normocephalic, atraumatic and Normal external nose present HEAD & SCALP: normocephalic and atraumatic FACE & SINUS: face symmetric NOSE: Normal external nose present MOUTH: moist mucous membranes not abnormal Eye: COMMON NORMALS: Equal, round and reactive pupils present and conjunctivae normal ALIGNMENT: Yes alignment normal PERIORBITAL: periorbital findings normal EYELID: eyelids normal CONJUNCTIVA: Yes conjunctivae normal SCLERA: sclerae normal CORNEA: Yes corneas normal PUPIL: Yes Equal, round and reactive pupils present Neck/C-Spine: GENERAL: Yes torticollis CERVICAL SPINE: Yes cervical ROM abnormal lateral flexion to the right decreased, lateral flexion to the left decreased, rotation to the left decreased, rotation to the right decreased, anterior flexion decreased and extension decreased and Yes loss of normal cervical lordosis Resp: EFFORT & INSPECTION: No pursed lip breathing, Yes labored, No Actively coughing, No retractions, Yes uses accessory muscles and Yes prolonged expiratory phase AUSCULTATION: crackles, rhonchi and diminished lung sounds Cardio: COMMON NORMALS: regular rate, regular rhythm, S1 normal heart sound present and S2 normal heart sound present JUGULAR VENOUS DISTENTION: no JVD RATE: regular rate RHYTHM: regular rhythm HEART SOUNDS: S1 normal heart sound present and S2 normal heart sound present GI: COMMON NORMALS: Normal to inspection, nondistended, normoactive bowel sounds present, Soft to palpation, non-tender and No hepatosplenomegaly present INSPECTION: No Fluid wave present PALPATION: Yes Soft to palpation, Yes No hepatosplenomegaly present and Yes Rebound tenderness present PERCUSSION: no fluid wave Extremity: GENERAL: Yes edema RIGHT LOWER EXTREMITY: Yes knee joint (Scar from prior knee replacement) Right knee: Yes ROM (Decreased range of motion), Yes lower leg Right lower leg: Yes inspection (Marked lymphedema, erythema below the knee), Yes foot & digits and Yes foot & digits Right foot and digits: Yes inspection (ulcer- lateral heel, 3cm ) LEFT LOWER EXTREMITY: Yes knee joint Left knee: Yes inspection (Swollen, decreased range of motion) Neuro: SHOSHANA COMA SCALE: document GCS findings [place] coma scale eye opening: To pressure [place] coma scale verbal response: Sounds [place] coma scale motor response: Localising [place] coma scale total score: 9 SENSORIUM/ORIENTATION: Yes obtunded MOTOR EXAM: no tremor noted, no asterixis and Motor fasciculations not present Skin: COMMON NORMALS: no rashes or lesions noted (Erythema and swelling right lower extremity) and no jaundice GENERAL SKIN EXAM: no rashes or lesions noted (Erythema and swelling right lower extremity) Course Vital Signs: Vital signs: Vital Signs Temperature 99 F 12/29/20 05:00 Pulse Rate 88 12/29/20 08:22 Respiratory Rate 2 L 12/29/20 08:23 Blood Pressure 105/62 12/29/20 07:45 Pulse Oximetry 97 12/29/20 08:17 MDM - Altered Mental Status MDM Narrative: Medical decision making narrative: 60-year-old female with decreased level of consciousness, last seen normal over 12 hours ago. Differential diagnosis; CVA, sepsis, metabolic encephalopathy, polypharmacy, opioid overdose, pulmonary embolism, DVT, cellulitis, UTI, dehydration, encephalitis. CT had negative for any acute abnormalities. Chest x-ray appears similar to previous. No obvious infiltrates. GCS score 9; will respond to painful stimuli, mumbling ok ok , but otherwise does not making any purposeful movements or following commands. No obvious focal neuro deficits or abnormal motor activity. No signs of trauma. ABG does not show any significant derangements POC glucose 160s, temperature 99.8, vital signs stable, requiring 2 L of oxygen to maintain sats at 94%. Leukocytosis with left shift, elevated CRP; possible source right lower ext remity cellulitis; blood cultures drawn, vancomycin and Rocephin administered. Lactic acid 1.1 D-dimer elevated, swelling and redness of right lower extremity, new O2 requirement and labored breathing; venous Doppler and CTA chest ordered;no acute emboli. Hyponatremia with BUN:Cr 56, CPK 300s; additional fluid bolus started, monitoring urine output closely. No UTI Tox screen positive for opiates and amphetamines. Ammonia, APAP, and PaCO2 all wnl. patient became more responsive , complaining of diffuse pain, intermittantly with appropriate verbal responses. The case was discussed with Dr. Valencia, hospitalist, she accepted the admission for further work-up of acute encephalopathy. Lab Data: Labs: Lab Results 12/27/20 12/27/20 12/27/20 Range/Units 00:40 00:42 00:42 WBC (4.0-10.0) 10^3/ uL RBC (4.1-5.3) 10^6/u L Hgb (11.5-15.3) g/dL Hct (37.0-47.0) % MCV (81-99) fL MCH (28.0-34.0) pg MCHC (30.0-36.0) g/dL RDW (12.1-15.1) % Plt Count (130-400) 10^3/c mm MPV (7.4-10.4) fL Lymph % (Auto) [place] % (Auto) Lymph # (Auto) [place] # (Auto) Total Counted (0-100) Atypical Lymphs % (0-5) % Absolute Neutrophi ls (1.4-6.5) 10^3/c mm Segmented Neutroph ils % Abs Segm Neuts (Ma n) (1.6-7.1) 10/cmm Band Neutrophils % Abs Band Neuts (Ma n) (0.0-1.2) 10^3/c mm Lymphocytes (Manua l) % Monocytes (Manual) % Absolute Monocytes (0.1-0.6) 10^3/c mm Eosinophils (Manua l) % Absolute Eosinophi ls (0.0-0.7) 10^3/c mm Basophils (Manual) % Absolute Basophils (0.0-0.2) 10^3/c mm Metamyelocytes % Platelet Estimate (Normal) Hypochromasia PT (12.1-14.9) SECO NDS INR (0.8-1.2) D-Dimer (0-0.59) ug/mIFE U Specimen Type Arterial Sample Site Brachial, left ABG pH 7.35 (7.35-7.45) ABG pCO2 42.4 (35-45) mmHg ABG pO2 76.0 L (80.0-100.0) mmH g ABG HCO3 23.6 (22-26) mmol/L ABG O2 Saturation 95.9 ABG Base Excess -2.0 (-2.0-2.0) mmol/ L Abdoulaye Test N/a A-a O2 Gradient 2.8 L (5-10) mmHg Hematocrit 33.4 L (37-47) % Hgb O2 Saturation 93.0 L (95-100) % Carboxyhemoglobin 2.2 (0.4-20.1) %THgb Methemoglobin 0.9 (0.4-1.5) % Total Hemoglobin 10.9 L (12-16) g/dL Sodium 130.0 L (131-143) mmol/L Potassium 3.7 (3.5-5.0) mmol/L Glucose 161.0 H (70-115) mg/dL Ionized Calcium 1.2 (1.1-1.4) mmol/L O2 Delivery Device Nc O2 Liters/Min 2.0 % F[employer] Hel[employer] ID Jlg Chloride (98-107) mmol/L Carbon Dioxide (22-29) mmol/L Anion Gap (5-19) BUN (8-23) mg/dL Creatinine (0.5-0.9) mg/dL GFR Calculation (90-130) mL/min POC Glucose 160 H (70-110) mg/dL Calculated Osmolal ity (285-295) mOsm/k g Lactic Acid (0.5-2.2) mmol/L Calcium (8.5-10.5) mg/dL Magnesium (1.7-2.3) mg/dL Total Bilirubin (0.15-1.2) mg/dL AST (0-32) U/L ALT (0-33) U/L Alkaline Phosphata se (35-105) IU/L Ammonia (11-51) umol/L Creatine Kinase (26-192) U/L Troponin T Gen 5 n g/L (0-10) ng/L C-Reactive Protein (0.0-4.9) mg/L NT-Pro-B Natriuret Pep (0-125) pg/mL Total Protein (6.6-8.7) g/dL Albumin (3.5-5.2) g/dL Globulin (1.3-4.6) g/dL Urine Color Yellow (Yellow) Urine Appearance Sl hazy (CLEAR) Urine pH 5 (5-7) Ur Specific Gravit y 1.020 (1.005-1.030) Urine Protein 2+ H (Negative) Urine Glucose (UA) Norm (Normal) Urine Ketones 1+ H (Negative) Urine Blood Trace H (Negative) Urine Nitrate Negative (Negative) Urine Bilirubin 1+ H (Negative) Urine Urobilinogen 1 H (Negative) mg/dL Ur Leukocyte Maria C ase Negative (Negative) Urine RBC 0-4 H (0-2) /hpf Urine WBC 0-4 H (0-5) /hpf Ur Squamous Epith Cells 0-4 H (0-5) /hpf Amorphous Sediment 4+ /hpf Urine Bacteria Trace (NONE) /hpf Hyaline Casts 0-4 H /lpf Urine Opiates Scre en (Negative) ng/mL Acetaminophen (10-30) ug/mL Ur Barbiturates Sc reen (Negative) ng/mL Ur Phencyclidine S crn (Negative) ng/mL Ur Amphetamines Sc reen (Negative) ng/mL U Benzodiazepines Scrn (Negative) ng/mL Urine Cocaine Scre en (Negative) ng/mL U Marijuana (THC) Screen (Negative) ng/mL Ethyl Alcohol (0-10) mg/dL Nasal/Oral COVID-1 9 PCR SARS-CoV-2 Ag (Rap id) (Negative) 12/27/20 12/27/20 12/27/20 Range/Units 00:42 00:46 00:46 WBC (4.0-10.0) 10^3/ uL RBC (4.1-5.3) 10^6/u L Hgb (11.5-15.3) g/dL Hct (37.0-47.0) % MCV (81-99) fL MCH (28.0-34.0) pg MCHC (30.0-36.0) g/dL RDW (12.1-15.1) % Plt Count (130-400) 10^3/c mm MPV (7.4-10.4) fL Lymph % (Auto) [place] % (Auto) Lymph # (Auto) [place] # (Auto) Total Counted (0-100) Atypical Lymphs % (0-5) % Absolute Neutrophi ls (1.4-6.5) 10^3/c mm Segmented Neutroph ils % Abs Segm Neuts (Ma n) (1.6-7.1) 10/cmm Band Neutrophils % Abs Band Neuts (Ma n) (0.0-1.2) 10^3/c mm Lymphocytes (Manua l) % Monocytes (Manual) % Absolute Monocytes (0.1-0.6) 10^3/c mm Eosinophils (Manua l) % Absolute Eosinophi ls (0.0-0.7) 10^3/c mm Basophils (Manual) % Absolute Basophils (0.0-0.2) 10^3/c mm Metamyelocytes % Platelet Estimate (Normal) Hypochromasia PT (12.1-14.9) SECO NDS INR (0.8-1.2) D-Dimer 3.59 H (0-0.59) ug/mIFE U Specimen Type Sample Site ABG pH (7.35-7.45) ABG pCO2 (35-45) mmHg ABG pO2 (80.0-100.0) mmH g ABG HCO3 (22-26) mmol/L ABG O2 Saturation ABG Base Excess (-2.0-2.0) mmol/ L Abdoulaye Test A-a O2 Gradient (5-10) mmHg Hematocrit (37-47) % Hgb O2 Saturation (95-100) % Carboxyhemoglobin (0.4-20.1) %THgb Methemoglobin (0.4-1.5) % Total Hemoglobin (12-16) g/dL Sodium (131-143) mmol/L Potassium (3.5-5.0) mmol/L Glucose (70-115) mg/dL Ionized Calcium (1.1-1.4) mmol/L O2 Delivery Device O2 Liters/Min % F[employer] ID Chloride (98-107) mmol/L Carbon Dioxide (22-29) mmol/L Anion Gap (5-19) BUN (8-23) mg/dL Creatinine (0.5-0.9) mg/dL GFR Calculation (90-130) mL/min POC Glucose (70-110) mg/dL Calculated Osmolal ity (285-295) mOsm/k g Lactic Acid 1.1 (0.5-2.2) mmol/L Calcium (8.5-10.5) mg/dL Magnesium (1.7-2.3) mg/dL Total Bilirubin (0.15-1.2) mg/dL AST (0-32) U/L ALT (0-33) U/L Alkaline Phosphata se (35-105) IU/L Ammonia (11-51) umol/L Creatine Kinase (26-192) U/L Troponin T Gen 5 n g/L (0-10) ng/L C-Reactive Protein (0.0-4.9) mg/L NT-Pro-B Natriuret Pep (0-125) pg/mL Total Protein (6.6-8.7) g/dL Albumin (3.5-5.2) g/dL Globulin (1.3-4.6) g/dL Urine Color (Yellow) Urine Appearance (CLEAR) Urine pH (5-7) Ur Specific Gravit y (1.005-1.030) Urine Protein (Negative) Urine Glucose (UA) (Normal) Urine Ketones (Negative) Urine Blood (Negative) Urine Nitrate (Negative) Urine Bilirubin (Negative) Urine Urobilinogen (Negative) mg/dL Ur Leukocyte Mari[place] ase (Negative) Urine RBC (0-2) /hpf Urine WBC (0-5) /hpf Ur Squamous Epith Cells (0-5) /hpf Amorphous Sediment /hpf Urine Bacteria (NONE) /hpf Hyaline Casts /lpf Urine Opiates Scre en Positive H (Negative) ng/mL Acetaminophen (10-30) ug/mL Ur Barbiturates Sc reen Negative (Negative) ng/mL Ur Phencyclidine S crn Negative (Negative) ng/mL Ur Amphetamines Sc reen Positive H (Negative) ng/mL U Benzodiazepines Scrn Negative (Negative) ng/mL Urine Cocaine Scre en Negative (Negative) ng/mL U Marijuana (THC) Screen Negative (Negative) ng/mL Ethyl Alcohol (0-10) mg/dL Nasal/Oral COVID-1 9 PCR SARS-CoV-2 Ag (Rap id) (Negative) 12/27/20 12/27/20 12/27/20 Range/Units 00:46 00:46 00:46 WBC (4.0-10.0) 10^3/ uL RBC (4.1-5.3) 10^6/u L Hgb (11.5-15.3) g/dL Hct (37.0-47.0) % MCV (81-99) fL MCH (28.0-34.0) pg MCHC (30.0-36.0) g/dL RDW (12.1-15.1) % Plt Count (130-400) 10^3/c mm MPV (7.4-10.4) fL Lymph % (Auto) [place] % (Auto) Lymph # (Auto) [place] # (Auto) Total Counted (0-100) Atypical Lymphs % (0-5) % Absolute Neutrophi ls (1.4-6.5) 10^3/c mm Segmented Neutroph ils % Abs Segm Neuts (Ma n) (1.6-7.1) 10/cmm Band Neutrophils % Abs Band Neuts (Ma n) (0.0-1.2) 10^3/c mm Lymphocytes (Manua l) % Monocytes (Manual) % Absolute Monocytes (0.1-0.6) 10^3/c mm Eosinophils (Manua l) % Absolute Eosinophi ls (0.0-0.7) 10^3/c mm Basophils (Manual) % Absolute Basophils (0.0-0.2) 10^3/c mm Metamyelocytes % Platelet Estimate (Normal) Hypochromasia PT (12.1-14.9) SECO NDS INR (0.8-1.2) D-Dimer (0-0.59) ug/mIFE U Specimen Type Sample Site ABG pH (7.35-7.45) ABG pCO2 (35-45) mmHg ABG pO2 (80.0-100.0) mmH g ABG HCO3 (22-26) mmol/L ABG O2 Saturation ABG Base Excess (-2.0-2.0) mmol/ L Abdoulaye Test A-a O2 Gradient (5-10) mmHg Hematocrit (37-47) % Hgb O2 Saturation (95-100) % Carboxyhemoglobin (0.4-20.1) %THgb Methemoglobin (0.4-1.5) % Total Hemoglobin (12-16) g/dL Sodium 128 L (131-143) mmol/L Potassium 3.8 (3.5-5.0) mmol/L Glucose 141 H (70-115) mg/dL Ionized Calcium (1.1-1.4) mmol/L O2 Delivery Device O2 Liters/Min % [employer] ID Chloride 95 L (98-107) mmol/L Carbon Dioxide 22 (22-29) mmol/L Anion Gap 14.8 (5-19) BUN 17 (8-23) mg/dL Creatinine 0.3 L (0.5-0.9) mg/dL GFR Calculation 226.9 H (90-130) mL/min POC Glucose (70-110) mg/dL Calculated Osmolal ity 270 L (285-295) mOsm/k g Lactic Acid (0.5-2.2) mmol/L Calcium 8.3 L (8.5-10.5) mg/dL Magnesium 1.4 L (1.7-2.3) mg/dL Total Bilirubin 0.5 (0.15-1.2) mg/dL AST 49 H (0-32) U/L ALT 38 H (0-33) U/L Alkaline Phosphata se 72 (35-105) IU/L Ammonia 44 (11-51) umol/L Creatine Kinase (26-192) U/L Troponin T Gen 5 n g/L 10 (0-10) ng/L C-Reactive Protein 337.6 H (0.0-4.9) mg/L NT-Pro-B Natriuret Pep 500 H (0-125) pg/mL Total Protein 6.1 L (6.6-8.7) g/dL Albumin 3.1 L (3.5-5.2) g/dL Globulin 3.0 (1.3-4.6) g/dL Urine Color (Yellow) Urine Appearance (CLEAR) Urine pH (5-7) Ur Specific Gravit y (1.005-1.030) Urine Protein (Negative) Urine Glucose (UA) (Normal) Urine Ketones (Negative) Urine Blood (Negative) Urine Nitrate (Negative) Urine Bilirubin (Negative) Urine Urobilinogen (Negative) mg/dL Ur Leukocyte Maria C ase (Negative) Urine RBC (0-2) /hpf Urine WBC (0-5) /hpf Ur Squamous Epith Cells (0-5) /hpf Amorphous Sediment /hpf Urine Bacteria (NONE) /hpf Hyaline Casts /lpf Urine Opiates Scre en (Negative) ng/mL Acetaminophen < 5.0 L (10-30) ug/mL Ur Barbiturates Sc reen (Negative) ng/mL Ur Phencyclidine S crn (Negative) ng/mL Ur Amphetamines Sc reen (Negative) ng/mL U Benzodiazepines Scrn (Negative) ng/mL Urine Cocaine Scre en (Negative) ng/mL U Marijuana (THC) Screen (Negative) ng/mL Ethyl Alcohol < 10 (0-10) mg/dL Nasal/Oral COVID-1 9 PCR SARS-CoV-2 Ag (Rap id) (Negative) 12/27/20 12/27/20 12/27/20 Range/Units 00:46 00:46 00:46 WBC 13.3 H (4.0-10.0) 10^3/ uL RBC 3.50 L (4.1-5.3) 10^6/u L Hgb 10.6 L (11.5-15.3) g/dL Hct 33.1 L (37.0-47.0) % MCV 94.6 (81-99) fL MCH 30.3 (28.0-34.0) pg MCHC 32.0 (30.0-36.0) g/dL RDW 14.6 (12.1-15.1) % Plt Count 201 (130-400) 10^3/c mm MPV 10.5 H (7.4-10.4) fL Lymph % (Auto) Not Reportable [place] % (Auto) Not Reportable Lymph # (Auto) Not Reportable [place] # (Auto) Not Reportable Total Counted 100 (0-100) Atypical Lymphs % 0.0 (0-5) % Absolute Neutrophi ls 11.6 H (1.4-6.5) 10^3/c mm Segmented Neutroph ils 64 % Abs Segm Neuts (Ma n) 8.5 H (1.6-7.1) 10/cmm Band Neutrophils 23.0 % Abs Band Neuts (Ma n) 3.1 H (0.0-1.2) 10^3/c mm Lymphocytes (Manua l) 7 % Monocytes (Manual) 3.0 % Absolute Monocytes 0.4 (0.1-0.6) 10^3/c mm Eosinophils (Manua l) 0 % Absolute Eosinophi ls 0.0 (0.0-0.7) 10^3/c mm Basophils (Manual) 0.0 % Absolute Basophils 0.0 (0.0-0.2) 10^3/c mm Metamyelocytes 3.0 % Platelet Estimate Normal (Normal) Hypochromasia 1+ H PT 15.70 H (12.1-14.9) SECO NDS INR 1.21 H (0.8-1.2) D-Dimer (0-0.59) ug/mIFE U Specimen Type Sample Site ABG pH (7.35-7.45) ABG pCO2 (35-45) mmHg ABG pO2 (80.0-100.0) mmH g ABG HCO3 (22-26) mmol/L ABG O2 Saturation ABG Base Excess (-2.0-2.0) mmol/ L Abdoulaye Test A-a O2 Gradient (5-10) mmHg Hematocrit (37-47) % Hgb O2 Saturation (95-100) % Carboxyhemoglobin (0.4-20.1) %THgb Methemoglobin (0.4-1.5) % Total Hemoglobin (12-16) g/dL Sodium (131-143) mmol/L Potassium (3.5-5.0) mmol/L Glucose (70-115) mg/dL Ionized Calcium (1.1-1.4) mmol/L O2 Delivery Device O2 Liters/Min % [employer] ID Chloride (98-107) mmol/L Carbon Dioxide (22-29) mmol/L Anion Gap (5-19) BUN (8-23) mg/dL Creatinine (0.5-0.9) mg/dL GFR Calculation (90-130) mL/min POC Glucose (70-110) mg/dL Calculated Osmolal ity (285-295) mOsm/k g Lactic Acid (0.5-2.2) mmol/L Calcium (8.5-10.5) mg/dL Magnesium (1.7-2.3) mg/dL Total Bilirubin (0.15-1.2) mg/dL AST (0-32) U/L ALT (0-33) U/L Alkaline Phosphata se (35-105) IU/L Ammonia (11-51) umol/L Creatine Kinase 390 H* (26-192) U/L Troponin T Gen 5 n g/L (0-10) ng/L C-Reactive Protein (0.0-4.9) mg/L NT-Pro-B Natriuret Pep (0-125) pg/mL Total Protein (6.6-8.7) g/dL Albumin (3.5-5.2) g/dL Globulin (1.3-4.6) g/dL Urine Color (Yellow) Urine Appearance (CLEAR) Urine pH (5-7) Ur Specific Gravit y (1.005-1.030) Urine Protein (Negative) Urine Glucose (UA) (Normal) Urine Ketones (Negative) Urine Blood (Negative) Urine Nitrate (Negative) Urine Bilirubin (Negative) Urine Urobilinogen (Negative) mg/dL Ur Leukocyte Maria C ase (Negative) Urine RBC (0-2) /hpf Urine WBC (0-5) /hpf Ur Squamous Epith Cells (0-5) /hpf Amorphous Sediment /hpf Urine Bacteria (NONE) /hpf Hyaline Casts /lpf Urine Opiates Scre en (Negative) ng/mL Acetaminophen (10-30) ug/mL Ur Barbiturates Sc reen (Negative) ng/mL Ur Phencyclidine S crn (Negative) ng/mL Ur Amphetamines Sc reen (Negative) ng/mL U Benzodiazepines Scrn (Negative) ng/mL Urine Cocaine Scre en (Negative) ng/mL U Marijuana (THC) Screen (Negative) ng/mL Ethyl Alcohol (0-10) mg/dL Nasal/Oral COVID-1 9 PCR SARS-CoV-2 Ag (Rap id) (Negative) 12/27/20 12/27/20 Range/Units 05:25 05:25 WBC (4.0-10.0) 10^3/ uL RBC (4.1-5.3) 10^6/u L Hgb (11.5-15.3) g/dL Hct (37.0-47.0) % MCV (81-99) fL MCH (28.0-34.0) pg MCHC (30.0-36.0) g/dL RDW (12.1-15.1) % Plt Count (130-400) 10^3/c mm MPV (7.4-10.4) fL Lymph % (Auto) [place] % (Auto) Lymph # (Auto) [place] # (Auto) Total Counted (0-100) Atypical Lymphs % (0-5) % Absolute Neutrophi ls (1.4-6.5) 10^3/c mm Segmented Neutroph ils % Abs Segm Neuts (Ma n) (1.6-7.1) 10/cmm Band Neutrophils % Abs Band Neuts (Ma n) (0.0-1.2) 10^3/c mm Lymphocytes (Manua l) % Monocytes (Manual) % Absolute Monocytes (0.1-0.6) 10^3/c mm Eosinophils (Manua l) % Absolute Eosinophi ls (0.0-0.7) 10^3/c mm Basophils (Manual) % Absolute Basophils (0.0-0.2) 10^3/c mm Metamyelocytes % Platelet Estimate (Normal) Hypochromasia PT (12.1-14.9) SECO NDS INR (0.8-1.2) D-Dimer (0-0.59) ug/mIFE U Specimen Type Sample Site ABG pH (7.35-7.45) ABG pCO2 (35-45) mmHg ABG pO2 (80.0-100.0) mmH g ABG HCO3 (22-26) mmol/L ABG O2 Saturation ABG Base Excess (-2.0-2.0) mmol/ L Abdoulaye Test A-a O2 Gradient (5-10) mmHg Hematocrit (37-47) % Hgb O2 Saturation (95-100) % Carboxyhemoglobin (0.4-20.1) %THgb Methemoglobin (0.4-1.5) % Total Hemoglobin (12-16) g/dL Sodium (131-143) mmol/L Potassium (3.5-5.0) mmol/L Glucose (70-115) mg/dL Ionized Calcium (1.1-1.4) mmol/L O2 Delivery Device O2 Liters/Min % [employer] Hel[employer] ID Chloride (98-107) mmol/L Carbon Dioxide (22-29) mmol/L Anion Gap (5-19) BUN (8-23) mg/dL Creatinine (0.5-0.9) mg/dL GFR Calculation (90-130) mL/min POC Glucose (70-110) mg/dL Calculated Osmolal ity (285-295) mOsm/k g Lactic Acid (0.5-2.2) mmol/L Calcium (8.5-10.5) mg/dL Magnesium (1.7-2.3) mg/dL Total Bilirubin (0.15-1.2) mg/dL AST (0-32) U/L ALT (0-33) U/L Alkaline Phosphata se (35-105) IU/L Ammonia (11-51) umol/L Creatine Kinase (26-192) U/L Troponin T Gen 5 n g/L (0-10) ng/L C-Reactive Protein (0.0-4.9) mg/L NT-Pro-B Natriuret Pep (0-125) pg/mL Total Protein (6.6-8.7) g/dL Albumin (3.5-5.2) g/dL Globulin (1.3-4.6) g/dL Urine Color (Yellow) Urine Appearance (CLEAR) Urine pH (5-7) Ur Specific Gravit y (1.005-1.030) Urine Protein (Negative) Urine Glucose (UA) (Normal) Urine Ketones (Negative) Urine Blood (Negative) Urine Nitrate (Negative) Urine Bilirubin (Negative) Urine Urobilinogen (Negative) mg/dL Ur Leukocyte Maria C ase (Negative) Urine RBC (0-2) /hpf Urine WBC (0-5) /hpf Ur Squamous Epith Cells (0-5) /hpf Amorphous Sediment /hpf Urine Bacteria (NONE) /hpf Hyaline Casts /lpf Urine Opiates Scre en (Negative) ng/mL Acetaminophen (10-30) ug/mL Ur Barbiturates Sc reen (Negative) ng/mL Ur Phencyclidine S crn (Negative) ng/mL Ur Amphetamines Sc reen (Negative) ng/mL U Benzodiazepines Scrn (Negative) ng/mL Urine Cocaine Scre en (Negative) ng/mL U Marijuana (THC) Screen (Negative) ng/mL Ethyl Alcohol (0-10) mg/dL Nasal/Oral COVID-1 9 PCR Not detected SARS-CoV-2 Ag (Rap id) Negative (Negative) EKG Data^: EKG 1: Attestation: I personally reviewed and interpreted this EKG as follows: EKG interpretation date: 12/27/20 Prior EKG tracings: available for review Discharge Plan Discharge Patient Disposition: Admitted As Inpatient Admit Provider: Alejandra Valencia Coding Level of Care Code ED Multiple Slide Operator for Chg Fwd Exam Comprehensive
[2020-12-27] MEDS: naloxone 0.4 mg/ml SDV IVP (00:49)
[2020-12-27 00:52] LABS: Glucose Point of Care 160 mg/dL (70-110)
[2020-12-27 00:55] LABS: ABG PCO2 42.4 mmHg (35-45); ABG PH Result 7.35 (7.35-7.45); Alveolar-Arterial Oxygen Gradi 2.8 mmHg (5-10); Arterial Blood Gas Hematocrit 33.4 % (37-47); Blood Gas Sample Site Brachial, left; Blood Gas Sample Type Arterial; Carboxyhemoglobin 2.2 %THgb (0.4-20.1); HCO3 ABG 23.6 mmol/L (22-26); Ionized Calcium Level - ABG 1.2 mmol/L (1.1-1.4); Methemoglobin 0.9 % (0.4-1.5); Oxygen Device NC; Oxygen Saturation ABG 95.9; Potassium Level - ABG 3.7 mmol/L (3.5-5.0); Total Hemoglobin 10.9 g/dL (12-16)
[2020-12-27 00:56] LABS: Hematocrit 33.1 % (37.0-47.0); Hemoglobin 10.6 g/dL (11.5-15.3); Mean Corpuscular Hemoglobin 30.3 pg (28.0-34.0); Mean Corpuscular Volume 94.6 fL (81-99); Mean Platelet Volume 10.5 fL (7.4-10.4); Platelet Count 201 10^3/cmm (130-400); Red Cell Distribution Width 14.6 % (12.1-15.1); White Blood Count 13.3 10^3/uL (4.0-10.0)
[2020-12-27 01:06] LABS: Bilirubin Urine 1+ (Negative); Blood Urine Trace (Negative); Glucose Urine UA Norm (Normal); Ketones Urine 1+ (Negative); Leukocyte Esterase Urine Negative (Negative); Nitrate Urine Negative (Negative); Protein Urine 2+ (Negative); Urine Appearance SL Hazy (CLEAR); Urine Color Yellow (Yellow); Urobilinogen Urine 1 mg/dL (Negative); pH Urine 5 (5-7)
--- NOTE | 2020-12-27 01:06 | PC.NURSE ---
patient back from CT
[2020-12-27 01:08] LABS: Amphetamines Screen Urine Positive (Negative); Barbiturates Screen Urine Negative (Negative); Benzodiazepines Screen Urine Negative (Negative); Cocaine Screen Urine Negative (Negative); Opiate Screen Urine Positive (Negative); PCP Screen Urine Negative (Negative); THC Screen Urine Negative (Negative)
[2020-12-27 01:12] LABS: D Dimer 3.59 ug/mIFEU (0-0.59)
[2020-12-27 01:14] LABS: Amorphous Sediment Urine 4+ /hpf; Bacteria Urine TRACE /hpf; RBC Urine 0-4 /hpf (0-2); Squamous Epithelial Cell Urine 0-4 /hpf (0-5); WBC Urine 0-4 /hpf (0-5)
[2020-12-27 01:15] LABS: Add Urine Culture? No; Hyaline Casts Urine 0-4 /lpf
[2020-12-27 01:17] LABS: Ammonia 44 umol/L (11-51)
[2020-12-27 01:19] LABS: Lactic Sepsis W/Reflex 1.1 mmol/L (0.5-2.2)
[2020-12-27 01:20] LABS: Troponin T (5th) Once 10 ng/L (0-10)
[2020-12-27 01:26] LABS: Slide Review Slide Review Perform
[2020-12-27 01:27] LABS: Absolute Neutrophil 11.6 10^3/cmm (1.4-6.5); Absolute Segmented Neutrophil 8.5 10/cmm (1.6-7.1); Band Neutrophils Absolute 3.1 10^3/cmm (0.0-1.2); Eosinophils 0 %; Hypochromasia 1+; Lymphocytes 7 %; Monocytes Absolute 0.4 10^3/cmm (0.1-0.6); Platelet Estimate Normal (Normal); Segmented Neutrophils 64 %; Total Cells Counted 100 (0-100)
[2020-12-27 01:29] LABS: Anion Gap 14.8 (5-19); Blood Urea Nitrogen 17 mg/dL (8-23); Carbon Dioxide 22 mmol/L (22-29); Chloride 95 mmol/L (98-107); Creatine Phosphokinase 390 U/L (26-192); Glomerular Filtration Rate 226.9 mL/min (90-130); Glucose 141 mg/dL (65-115); Potassium 3.8 mmol/L (3.5-5.1); Sodium 128 mmol/L (136-145)
[2020-12-27 01:30] LABS: Alanine Aminotransferase 38 U/L (0-33); Albumin Level 3.1 g/dL (3.5-5.2); Alkaline Phosphatase 72 IU/L (35-105); Aspartate Amino Transferase 49 U/L (0-32); C Reactive Protein 337.6 mg/L (0.0-4.9); Calcium 8.3 mg/dL (8.5-10.5); Magnesium 1.4 mg/dL (1.7-2.3); NT Pro B Type Natriuretic Pept 500 pg/mL (0-125); Osmolality Calculated 270 mOsm/kg (285-295); Total Bilirubin 0.5 mg/dL (0.15-1.2); Total Protein 6.1 g/dL (6.6-8.7)
--- NOTE | 2020-12-27 01:34 | USCV_ITS ---
Polina Snyder Age: 60 Gender: F : 1960 Exam Date: 12/27/2020 02:41 Ordering Phys: Coral Zamarripa MD Technologist: Juan R Muñoz Exam Location: [facility] [place]_ Indication: RT LEG PAIN AND SWELLING HISTORY: Lower extremity edema. PROCEDURES: Venous duplex imaging was performed in only the right lower extremity. The following venous structures were evaluated: common femoral vein, profunda vein, proximal portion of the greater saphenous vein, superficial femoral vein, and the popliteal vein. In addition, the posterior tibial and peroneal trunk were evaluated. On the right side, the common femoral, superficial femoral, profunda femoral, popliteal, posterior tibial, greater saphenous veins and the peroneal trunk were identified and interrogated in the standard fashion. These veins were found to be easily compressible with spontaneous blood flow. No evidence of insufficiency or thrombus noted. FINDINGS: Normal 2-D Doppler and augmentation and compressibility throughout the lower extremity venous structures. Additional imaging through the proximal calf veins also reveals no thrombus. Limited evaluation of the greater saphenous vein is patent with no thrombus.. CONCLUSIONS No evidence of right lower extremity DVT. Tom Leyva MD (Electronically Signed) Final Date: 27 December 2020 09:31 S
--- NOTE | 2020-12-27 01:34 | CTR_ITS ---
PROCEDURE INFORMATION: Exam: CT Angiography Chest With Contrast Exam date and time: 12/27/2020 1:37 AM Age: 60 years old Clinical indication: Abnormal findings; Abnormal diagnostic tests; Elevated d-dimer; Additional info: Altered mental status, hypoxia TECHNIQUE: Imaging protocol: Computed tomographic angiography of the chest with contrast. 3D rendering (Not supervised by radiologist): MIP and/or 3D reconstructed images were created by the technologist. Radiation optimization: All CT scans at this facility use at least one of these dose optimization techniques: automated exposure control; mA and/or kV adjustment per patient size (includes targeted exams where dose is matched to clinical indication); or iterative reconstruction. Contrast material: OMNI 350; Contrast volume: 95 ml; Contrast route: INTRAVENOUS (IV); COMPARISON: CTA Chest-Pulmonary Emb [id number] 04/11/2019 6:24 AM RADIATION DOSE METRICS: Total DLP (mGy-cm): 617.12 FINDINGS: Pulmonary arteries: Mild patient motion occurs during the examination, limiting evaluation of bibasilar subsegmental pulmonary arteries. No pulmonary embolus is seen. Aorta: Unremarkable. No aortic aneurysm. No aortic dissection. Lungs: A calcified granuloma is present in the left lower lobe. Mild centrilobular emphysema is appreciated. Subsegmental atelectasis is seen in both lungs Pleural spaces: Unremarkable. No pneumothorax. No pleural effusion. Heart: The heart is normal in size. Lymph nodes: Unremarkable. No enlarged lymph nodes. Bones/joints: Unremarkable. No acute fracture. Soft tissues: Unremarkable. CT/CT angio chest PE protcl [id number] IMPRESSION: 1. Mild patient motion. No pulmonary embolus is seen. 2. Mild emphysema Radiation Dose CTDIVOL = (mGy): DLP = 617.12 (mGy-cm)
[2020-12-27 01:35] LABS: Acetaminophen < 5.0 ug/mL (10-30); Alcohol Level < 10 mg/dL (0-10)
[2020-12-27] MEDS: sodium chloride 0.9% 1,000 ML 999 ML IV ×2 (01:42→03:24)
[2020-12-27] MEDS: cefTRIAXone 1,000 MG in sodium chloride 0.9% (plus) 50 ML 100 MG IV (01:47)
[2020-12-27 02:03] LABS: INR 1.21 (0.8-1.2)
[2020-12-27] MEDS: vancomycin 1,500 MG/300 ML PIGGYBACK 200 MG IV ×3 (02:48→19:16)
--- NOTE | 2020-12-27 02:48 | CTR_ITS ---
PROCEDURE INFORMATION: Exam: CT Abdomen And Pelvis With Contrast Exam date and time: 12/27/2020 2:54 AM Age: 60 years old Clinical indication: Nausea; Additional info: Lymphadenopathy, rle edema TECHNIQUE: Imaging protocol: Computed tomography of the abdomen and pelvis with contrast. Radiation optimization: All CT scans at this facility use at least one of these dose optimization techniques: automated exposure control; mA and/or kV adjustment per patient size (includes targeted exams where dose is matched to clinical indication); or iterative reconstruction. Contrast material: VISI; Contrast volume: 95 ml; Contrast route: INTRAVENOUS (IV); COMPARISON: CT abdomen pelvis w con* [id number] 04/15/2018 12:06 PM RADIATION DOSE METRICS: Total DLP (mGy-cm): 1820.1 FINDINGS: Liver: Fatty change is seen in the liver. No mass. Gallbladder and bile ducts: Normal. No calcified stones. No ductal dilation. Pancreas: Normal. No ductal dilation. Spleen: Normal. No splenomegaly. Adrenal glands: Normal. No mass. Kidneys and ureters: Normal. No hydronephrosis. Stomach and bowel: Unremarkable. No obstruction. No mucosal thickening. Appendix: No evidence of appendicitis. Intraperitoneal space: Unremarkable. No free air. No significant fluid collection. Vasculature: Calcifications are noted. No abdominal aortic aneurysm. Lymph nodes: Unremarkable. No enlarged lymph nodes. Urinary bladder: Garber catheter is in place. Reproductive: The uterus is surgically absent. Unremarkable as visualized. Bones/joints: Multilevel degenerative changes are present. No acute fracture. Soft tissues: Unremarkable. CT/CT abdomen pelvis w con* [id number] IMPRESSION: 1. No acute findings. Negative for adenopathy. 2. Fatty change is present liver. 3. The uterus is surgically absent. Radiation Dose CTDIVOL = (mGy): DLP = 1820.1 (mGy-cm)
--- NOTE | 2020-12-27 02:48 | CTR_ITS ---
PROCEDURE INFORMATION: Exam: CT Right Lower Extremity Without Contrast, Foot Exam date and time: 12/27/2020 2:54 AM Age: 60 years old Clinical indication: Edema; Location not specified; Additional info: Ulcer, R/O osteo TECHNIQUE: Imaging protocol: CT of the Right lower extremity without contrast was performed. Exam focused on the foot. Radiation optimization: All CT scans at this facility use at least one of these dose optimization techniques: automated exposure control; mA and/or kV adjustment per patient size (includes targeted exams where dose is matched to clinical indication); or iterative reconstruction. COMPARISON: CR Foot 3 views, RIGHT* [id number] 02/24/2018 1:15 PM RADIATION DOSE METRICS: Total DLP (mGy-cm): 391.66 FINDINGS: Bones/joints: Degenerative changes are present. No lytic lesion or periosteal reaction is seen. No acute fracture or dislocation. Soft tissues: Soft tissue edema is present in the dorsum of the foot extending into the ankle region. No discrete abscess is seen. No air is present in the soft tissues. CT/CT foot RT wo con* [id number] IMPRESSION: No evidence of osteomyelitis is seen. No fracture is present. Changes of cellulitis are seen. Radiation Dose CTDIVOL = (mGy): DLP = 391.66 (mGy-cm)
[2020-12-27] MEDS: iodixanol 320 mg/mL 100mL Btl IV (03:14)
[2020-12-27] MEDS: piperacillin-tazobactam 4.5 GM in sodium chloride 0.9% (plus) 50 ML IV (03:24)
--- NOTE | 2020-12-27 04:59 | PM.HP ---
Providers/Chief Complaint Admitting Physician: Dr. Valencia Primary Care Provider: unclear who her current pcp is Chief Complaint: AMS History of Present Illness Polina Snyder is a 60 year old female who presented to the emergency room with chief complaint of alteration in mental status. Family had seen her approximately 12 hours prior to presentation and she was at her baseline. They were not currently available to discuss situation. Review of old records indicates that she has had previous admissions with alteration of mental status, sometimes felt secondary to medications. On arrival here initial [place] Coma Scale was 9. She was noted to be following commands. She was mumbling a few words but not answering any questions. She did have some labored breathing noted and hypoxemia necessitating initiation of 2 L of oxygen by nasal cannula. Work-up in the emergency room showed an unremarkable CT of the head, mild emphysematous changes on CTA of the chest with no evidence of PE, no evidence of osteomyelitis in the right lower extremity although findings were consistent with cellulitis based on imaging and physical examination. CT of the abdomen and pelvis also did not reveal any acute findings. She was noted to have an elevated white count with a left shift, normocytic anemia, elevated D-dimer, hyperglycemia, hypomagnesemia, hyponatremia, elevation in CK level as well as significant elevation in CRP. proBNP was also elevated. Urinalysis showed elevation in specific gravity and urine ketones suggestive of volume depletion. I am not able to get any history from the patient herself. Temperature in the emergency room initially noted to be 99.8. She has had some tachycardia. She has gradually started to be more vocal but still not cooperative. Lactic acid was normal at 1.1. Urine drug screen was positive for opiates and amphetamines. She has previously been followed at our pain clinic but I do not see any visits since April of last year when she was found to have broken terms of her narcotic contract. Old records in our system were reviewed to obtain past medical history, social history, family history as noted below. Review of Systems General: Reports: ROS unobtainable due to mental status Medications/Allergies Home Medications Medication Instructions Recorded Confirmed Last Taken Type aspirin 325 mg tablet 325 mg PO BID 03/15/20 04/22/20 Unknown History atenolol 100 mg tablet 100 mg PO BID 03/15/20 04/22/20 Unknown History calcium carbonate 500 mg calcium 500 mg PO BID 03/15/20 04/22/20 Unknown History (1,250 mg) tablet cholecalciferol (vitamin D3) 1,250 PO .1 week cap 03/15/20 04/22/20 Unknown History mcg (50,000 unit) capsule clonidine HCl 0.1 mg tablet 0.1 mg PO BID 03/15/20 04/22/20 Unknown History fenofibrate micronized 200 mg 200 mg PO .1 HS cap 03/15/20 04/22/20 Unknown History capsule furosemide 40 mg tablet 40 mg PO DAILY 03/15/20 04/22/20 Unknown History gabapentin 300 mg capsule 300 mg PO .2-3 caps TID cap 03/15/20 04/22/20 Unknown History lisinopril 40 mg tablet 40 mg PO DAILY 03/15/20 04/22/20 Unknown History metformin 1,000 mg tablet 1,000 mg PO BID 03/15/20 04/22/20 Unknown History potassium chloride 20 mEq 20 meq PO DAILY 03/15/20 04/22/20 Unknown History tablet,extended release prochlorperazine maleate 10 mg 10 mg PO DAILY PRN tab 03/15/20 04/22/20 Unknown History tablet venlafaxine 75 mg capsule,extended 75 mg PO .3 day cap 03/15/20 04/22/20 Unknown History release 24 hr oxycodone-acetaminophen 10 mg-325 1 tab PO TID PRN 30 Days #75 tab 04/13/20 04/22/20 Unknown Rx mg tablet MDD 3 tizanidine 4 mg tablet 4 mg PO TID PRN #60 tab MDD 3 04/13/20 04/22/20 Unknown Rx Allergies Allergy/AdvReac Type Severity Reaction Status Date / Time adhesive tape Allergy rash Verified 04/22/20 13:16 amitriptyline Allergy Unknown Verified 04/22/20 13:16 nalbuphine [From Nubain] Allergy sick to Verified 04/22/20 13:16 stomach Sulfa (Sulfonamide Allergy Itch all Verified 04/22/20 13:16 Antibiotics) over Additional Medication Information The above medication list have not been confirmed as we are unable to get information directly from the patient this evening. Review of external medication reconciliation shows medications filled within the last 3 months include baclofen, Effexor, atenolol, fenofibrate, Metformin, Ventolin, gabapentin, BuSpar, Lasix and potassium. It looks like she has also had antibiotics for Keflex, most recently November 23, clindamycin and is also been prescribed Silvadene cream and ketoconazole topical in the last few months. Last narcotic prescription that I see filled on what we can access here was oxycodone filled in March of last year which is around the time that she could no longer get narcotics prescribed by pain clinic physician here. PFSH Acute PFSH: Medical History (Updated 12/27/20 @ 05:50 by Alejandra Valencia MD) Cervical post-laminectomy syndrome Tmlihfs-Obblg-Ndddt disease-like deformity of foot right Chronic pain Depression with anxiety Diabetes mellitus, type II History of cardioversion history of SVT vs for other arrhythmia History of DVT of lower extremity post-operative Hyperlipidemia Hypertension Lumbar radiculopathy Lung cancer according to pain clinic notes, managed at [facility], underwent radiation therapy in 2019 Torticollis, acquired Has had good results with Botox in the past Surgical History (Updated 12/27/20 @ 05:19 by Alejandra Valencia MD) History of arthroplasty of left knee (~1976) History of partial hysterectomy Hx of appendectomy Hx of dilation and curettage Hx of neck surgery x 2, posterior laminectomy and cervical fusion with hardware in place, limited ROM neck at baseline Hx of total knee replacement (~2010) Right Hx of tubal ligation Family History (Updated 12/27/20 @ 05:21 by Alejandra Valencia MD) Family/Other Hypertension Depression Anxiety Diabetes Father Aneurysm Mother Hypertension Brother Diabetes Sister Diabetes Social History (Updated 12/27/20 @ 05:22 by Alejandra Valencia MD) Alcohol intake: never Substance/Drug Use: current Substance/Drug use type: Methamphetamine Marital status: Additional social history: unknown if patient continues to smoke, documented to smoke previously Vitals/I&O/Wt Last Vital Signs Temp 99.8 F H 12/27/20 00:51 Pulse 98 12/27/20 04:14 Resp 18 12/27/20 04:14 BP 134/90 12/27/20 03:45 Pulse Ox 92 12/27/20 04:14 12/26/20 12/26/20 12/27/20 14:59 22:59 06:59 Intake Total 50 / 50 Balance 50 / 50 Weight last 48 hrs Weight 95.254 kg Physical Exam Const: OTHER: Lethargic, not cooperative when awake, repetitive speech when awake HENMT: OTHER: Normocephalic atraumatic, nasopharynx is clear, oropharynx with dry mucous membranes Eye: OTHER: Pupils are equally reactive bilaterally, not pinpoint, mildly injected sclera Neck/C-Spine: OTHER: Decreased range of motion noted at the neck but this is chronic according to old records Resp: OTHER: Tachypneic, no wheezes, equal breath sounds bilaterally Cardio: OTHER: Tachycardic, regular rhythm, no murmurs GI: OTHER: Abdomen soft, nontender, nondistended with positive bowel sounds : OTHER: Garber catheter in place Extremity: NARRATIVE EXTREMITY EXAM: Patient with contractures of both lower extremities most prominently noted at the right lower extremity. Has Charcot deformity of the right foot with significant edema in the right lower extremity compared to the left. Both lower extremities with pitting edema again more prominent on the left than the right. Neuro: OTHER: Speech is clear although nonsensical at times, other times very goal-directed such as wanting to set up. She moves all extremities although has limitations in range of motion in the lower extremities. No abnormal movements although when aroused very restless. Psych: OTHER: No grossly apparent hallucinations but not currently oriented to person place or situation Skin: OTHER: Erythema noted under both breasts left greater than right, some scattered petechiae on the upper chest. There is erythema with satellite lesions in both groins. Both lower extremities with erythema and warmth from knee to foot right much more prominent than the left. There is a small dime sized bruise upper outer calf. She has skin breakdown on the right heel and the left forefoot present on admission. There is a scab sore to the right great toe. There are other scabbed sores to both lower extremities. No oozing currently Urinary Catheter Management^: Garber: Cath Placed During This Visit: yes Urinary Catheter Date of Insertion: 12/27/20 Urinary Catheter Time of Insertion: 00:51 Data : 12/27/20 00:46 12/27/20 00:46 Micro: Microbiology 12/27/20 01:28 Blood Culture - Preliminary Blood SPECIMEN COLLECTED 12/27/20 00:46 Blood Culture - Preliminary Blood SPECIMEN COLLECTED A&P Assessment and plan (1) Acute encephalopathy: Multifactorial from polysubstance use, hypoxemia, acute (on chronic) infection. No evidence of focal neurological deficits beyond mentation changes presently. Most likely symptoms represent an ingestion but have to keep in mind possibility of withdrawal. And she is waking up a bit it is starting to become apparent that she may be experiencing some psychosis as well. Status: Acute (2) Cellulitis: Bilateral lower extremities, left more significant than right. Status: Acute Qualifiers: Site of cellulitis: extremity Site of cellulitis of extremity: lower extremity Laterality: right Qualified Code(s): L03.115 - Cellulitis of right lower limb (3) Tinea corporis: Status: Acute (4) Hypoxemia: Not chronically on oxygen, history of prior tobacco use, CTA with some emphysematous changes but otherwise unremarkable. Need to rule out Covid. Status: Acute (5) Methamphetamine use: Looks to be a longstanding means of managing pain for this patient on review of records and has led to not being able to be managed at at least our pain clinic here. 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 (7) Ldfrzvu-Rnayg-Bbxkk disease-like deformity of foot: Status: Chronic (8) Hypertension: Chronically on Lasix and atenolol with potassium replacement Status: Chronic Qualifiers: Hypertension type: unspecified Qualified Code(s): I10 - Essential (primary) hypertension (9) Hyperlipidemia: Chronically on fenofibrate Status: Chronic Qualifiers: Hyperlipidemia type: unspecified Qualified Code(s): E78.5 - Hyperlipidemia, unspecified (10) Chronic pain: Looks to be chronically prescribed baclofen and gabapentin Status: Chronic Qualifiers: Chronic pain type: other chronic pain Qualified Code(s): G89.29 - Other chronic pain (11) Depression with anxiety: Looks to chronically be on Effexor and BuSpar Status: Acute Additional A&P Information Leukocytosis with left shift Normocytic anemia Elevated D-dimer without evidence of PE on CTA Hyponatremia and hypochloremia along with urinary findings suggestive of volume depletion Elevated CK level Hypomagnesemia Mild elevation in transaminases Significant elevation in CRP Elevated BNP Hypoalbuminemia Inpatient admission ICU level care currently Covid testing Continue a lower dose of baclofen as it appears to be a chronic medication One-to-one sitter for patient safety We will give a one-time dose of Ativan and see how she responds (became extremely agitated after Covid testing) Continue vancomycin and Zosyn for cellulitic coverage Diflucan and nystatin Monitor wounds to both feet for progression Replace magnesium IV fluids with potassium Insulin therapy Clarify home medications when able Need to get more clarification of recent history from patient and/or family when able Lovenox for DVT prophylaxis Pepcid for GI prophylaxis Supportive care otherwise Full code Attestations Medical Necessity Statement*: Anticipate hospital stay greater than 2 midnights in this lady with multiple issues as noted above. Plans are as indicated. At high risk of rapid clinical decline without monitoring and intervention. Coding Level of Care Code Acute Die Maker Trim for Trent Francisd Diagnoses Acute encephalopathy G93.40 Cellulitis L03.115 Site of cellulitis: extremity Site of cellulitis of extremity: lower extremity Laterality: right Tinea corporis B35.4 Hypoxemia R09.02 Methamphetamine use F15.10 Diabetes mellitus, type II E11.618 Diabetes mellitus long term care administrator insulin use: without long term care administrator use Diabetes mellitus complication status: with diabetic arthropathy Diabetes mellitus complication detail: with other arthropathy Vxgzkfb-Tylez-Joizk disease-like deformity of foot G60.0 Hypertension I10 Hypertension type: unspecified Hyperlipidemia E78.5 Hyperlipidemia type: unspecified Chronic pain G89.29 Chronic pain type: other chronic pain Depression with anxiety F41.8
[2020-12-27 06:12] LABS: SARS Covid-2 Antigen Negative (Negative)
[2020-12-27] MEDS: LORazepam 2 mg/mL INJ 1 mL 1 MG IVP ×2 (06:19→09:54)
--- NOTE | 2020-12-27 09:13 | USCV_ITS ---
Polina Snyder Age: 60 Gender: F : 1960 Exam Date: 12/27/2020 10:13 Ordering Phys: Eduardo Pineda MD Technologist: Juan R Muñoz Exam Location: [facility] [place] Indication: Assess left ventricular function BP: 124 / 100 HR: 110 Rhythm: Sinus Technical Quality: Very technically difficult study MEASUREMENTS (Male / Female) Normal Values 2D ECHO LV Diastolic Diameter PLAX 4.2 cm 4.2 - 5.9 / 3.9 - 5.3 cm LV Systolic Diameter PLAX 2.8 cm IVS Diastolic Thickness 1.2 cm 0.6 - 1.0 / 0.6 - 0.9 cm IVS Systolic Thickness 1.5 cm LVPW Diastolic Thickness 1.1 cm 0.6 - 1.0 / 0.6 - 0.9 cm LVPW Systolic Thickness 1.6 cm LVOT Diameter 2.0 cm LV Ejection Fraction 2D Teich 64.2 % LA Diameter 4.4 cm Aorta at Sinotubular Diameter 2.6 cm M-MODE LV Diastolic Diameter MM 4.4 cm 4.2 - 5.9 / 3.9 - 5.3 cm LV Systolic Diameter MM 2.4 cm LV Ejection Fraction MM Teich 75.9 % IVS Diastolic Thickness MM 1.2 cm 0.6 - 1.0 / 0.6 - 0.9 cm IVS Systolic Thickness MM 1.9 cm LVPW Diastolic Thickness MM 1.3 cm 0.6 - 1.0 / 0.6 - 0.9 cm LVPW Systolic Thickness MM 2.0 cm RV Diastolic Diameter MM 3.4 cm MV E Point Septal Separation 0.8 cm DOPPLER TR Peak Velocity 281.7 cm/s TR Peak Gradient 31.7 mmHg TV Peak E Velocity 122.0 cm/s Right Atrial Pressure 3.0 mmHg Pulmonary Artery Systolic Pressu 34.7 mmHg PV Peak Velocity 127.0 cm/s FINDINGS Left Ventricle Normal left ventricular cavity size. Mildly increased left ventricular wall thickness. Normal left ventricular systolic function. Left ventricular ejection fraction is estimated at 55- 60 %. This study is inadequate for estimation of regional wall motion abnormality. Right Ventricle Normal right ventricular size and systolic function. Right ventricular systolic pressure 36 mmHg. Right Atrium Right atrium not well visualized. Left Atrium Left atrium not well visualized. Mitral Valve Mildly thickened mitral valve. Aortic Valve Aortic valve not well visualized. Tricuspid Valve Tricuspid valve not well visualized. Mild tricuspid valve regurgitation. Pulmonic Valve Pulmonic valve not well visualized. No pulmonary valve stenosis. No pulmonary valve regurgitation. Pericardium No pericardial effusion. Aorta Aorta not well visualized. CONCLUSIONS 1. This is a technically difficult study. 2. Normal left ventricular cavity size and systolic function. Mildly increased left ventricular wall thickness. Left ventricular ejection fraction is estimated at 55-60 %. This study is inadequate for estimation of regional wall motion abnormality. 3. Normal right ventricular size and systolic function. 4. Mild tricuspid valve regurgitation. 5. Direct comparison to previous study dated 03/06/2015 is not possible due to technically difficult study. Dora Rodríguez MD (Electronically Signed) Final Date: 27 December 2020 16:19 S
--- NOTE | 2020-12-27 09:14 | PM.PN ---
Subjective Subjective: Interval history: Patient seen multiple times during the day. Patient admitted overnight. H&P and labs noted. On examination patient is altered, fidgety, moving all over in the bed with heart rate of 122 bpm, regular with blood pressure of 170/80 mmHg. Saturating 94% on 3 L nasal cannula. T-max since admission 99.8 Fahrenheit. Documented urine output 1400 cc since 6 AM today. Vitals/I&O/Wt Last Vital Signs Temp 99.8 F H 12/27/20 00:51 Pulse 103 H 12/27/20 08:35 Resp 20 H 12/27/20 08:35 BP 124/74 12/27/20 08:35 Pulse Ox 96 12/27/20 08:35 12/26/20 12/27/20 12/27/20 22:59 06:59 14:59 Intake Total 2400 / 2400 Balance 2400 / 2400 Weight last 48 hrs Weight 95.254 kg Physical Exam Narrative: EXAM NARRATIVE: General: Altered, awake, moving all limbs appropriately, confused HEENT: PERRLA, pupils bilaterally equal and reactive Chest: Normal vesicular breath sounds, bilateral rhonchi present all over the lung marrero, equal good air entry bilaterally CVS: S1-S2 regular, no murmurs, no tachycardia, no gallops, no rubs Abdomen: Soft, nontender, no organomegaly, bowel sounds present Neuro: No focal deficits, no facial deformity, AO x3, power 5/5 in all limbs Skin: OTHER: Erythema noted under both breasts left greater than right, some scattered petechiae on the upper chest. There is erythema with satellite lesions in both groins. Both lower extremities with erythema and warmth from knee to foot right much more prominent than the left. There is a small dime sized bruise upper outer calf. She has skin breakdown on the right heel and the left forefoot present on admission. There is a scab sore to the right great toe. There are other scabbed sores to both lower extremities. No oozing currently Urinary Catheter Management^: Garber: Cath Placed During This Visit: yes Urinary Catheter Date of Insertion: 12/27/20 Urinary Catheter Time of Insertion: 00:51 Data : 12/27/20 00:46 12/27/20 10:41 Micro: Microbiology 12/27/20 01:28 Blood Culture - Preliminary Blood SPECIMEN COLLECTED 12/27/20 00:46 Blood Culture - Preliminary Blood SPECIMEN COLLECTED A&P Assessment and plan (1) Sepsis: Status: Acute (2) Acute encephalopathy: Status: Acute (3) Methamphetamine use: Looks to be a longstanding means of managing pain for this patient on review of records and has led to not being able to be managed at at least our pain clinic here. Status: Chronic (4) Cellulitis: Bilateral lower extremities, left more significant than right. Status: Acute Qualifiers: Laterality: right Site of cellulitis: extremity Site of cellulitis of extremity: lower extremity Qualified Code(s): L03.115 - Cellulitis of right lower limb (5) Hypoxemia: Not chronically on oxygen, history of prior tobacco use, CTA with some emphysematous changes but otherwise unremarkable. Status: Acute (6) Diabetes mellitus, type II: Looks to chronically only be on Metformin, currently with hyperglycemia Status: Chronic Qualifiers: Diabetes mellitus complication detail: with other arthropathy Diabetes mellitus complication status: with diabetic arthropathy Diabetes mellitus intermediate card tender insulin use: without residential use Qualified Code(s): E11.618 - Type 2 diabetes mellitus with other diabetic arthropathy (7) Hypertension: Chronically on Lasix and atenolol with potassium replacement Status: Chronic Qualifiers: Hypertension type: unspecified Qualified Code(s): I10 - Essential (primary) hypertension (8) Hyperlipidemia: Chronically on fenofibrate Status: Chronic Qualifiers: Hyperlipidemia type: unspecified Qualified Code(s): E78.5 - Hyperlipidemia, unspecified (9) Chronic pain: Looks to be chronically prescribed baclofen and gabapentin Status: Chronic Qualifiers: Chronic pain type: other chronic pain Qualified Code(s): G89.29 - Other chronic pain (10) Depression with anxiety: Looks to chronically be on Effexor and BuSpar Status: Acute (11) Tinea corporis: Status: Acute (12) 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 Sepsis: Secondary to cellulitis. Keep mean arterial pressure over 65. Continue with IV fluids with normal saline at 100 cc an hour. Will monitor for fluid overload. Continue with vancomycin, Zosyn both renally dosed. Check procalcitonin, MRSA swab. Follow-up with blood cultures and urine cultures. Blood cultures preliminary 1 out of 4 positive for heavy growth GPC's in chains. We will continue to monitor. Repeat blood cultures. CT foot negative for any signs of osteomyelitis. We will get right knee x-ray to rule out any effusion to rule out septic arthritis. CT chest abdomen pelvis results appreciated. COVID-19 PCR was sent on admission. We will continue to follow. Continue with isolation precautions for now. Hypoxemia: CT chest concerning for mild emphysema though cannot rule out obstructive sleep apnea as well given the body habitus. ABG for admission appreciated. Keep saturations over 92%. Start patient on DuoNebs, budesonide twice daily. Echocardiogram has been done but results are awaited to check for cardiomyopathy. We will continue to monitor for fluid overload. Strict input output charting, daily weights. Start patient on Solu-Medrol 40 every 6 hourly. Type 2 diabetes mellitus: Insulin sliding scale at moderate dose every 6 hours as patient is n.p.o. because of her mental status. Hypertension: Goal blood pressure less than 140/90 mmHg keeping mean arterial pressure over 65. Patient having tachycardia could be secondary to sepsis versus polysubstance abuse. Start patient on metoprolol 5 mg IV every 6 hours as needed for heart rate of more than 110 while keeping systolic blood pressure more than 110 mmHg. Full code. NPO. Lovenox 40 daily for DVT prophylaxis. Discussed patient's care in detail with her aunt on phone. Her aunt verbalizes that patient has a life partner with whom she is been living for over 20 years. And verbalizes concerns for ongoing drug abuse. Continue with ICU care. Attestations Medical Necessity Statement*: Patient requires further hospitalization for management of acute encephalopathy which is most likely multifactorial because of sepsis from cellulitis, polysubstance abuse with UA positive for amphetamines. Time Spent in Patient Care: Greater than 35 minutes (>than 50% of time spent in counselling and/or direct pt care on unit). Coding Level of Care Code Acute Diver Helper for [facility] Diagnoses Sepsis A41.9 Acute encephalopathy G93.40 Methamphetamine use F15.10 Cellulitis L03.115 Laterality: right Site of cellulitis: extremity Site of cellulitis of extremity: lower extremity Hypoxemia R09.02 Diabetes mellitus, type II E11.618 Diabetes mellitus complication detail: with other arthropathy Diabetes mellitus complication status: with diabetic arthropathy Diabetes mellitus residential insulin use: without residential use Hypertension I10 Hypertension type: unspecified Hyperlipidemia E78.5 Hyperlipidemia type: unspecified Chronic pain G89.29 Chronic pain type: other chronic pain Depression with anxiety F41.8 Tinea corporis B35.4 Kcgzrem-Hyrpo-Pqidh disease-like deformity of foot G60.0
[2020-12-27] MEDS: ipratropium-albuterol 3 mL Neb INHALATION ×3 (09:29→20:45)
--- NOTE | 2020-12-27 09:34 | PC.CHAP ---
Pastoral Care Encounter/Spiritual Assessment Type of Contact [] Declined lubricating specialist visit [] Patient/Family/Request visit [] Outpatient visit [] Follow-up visit [] Physician referral [] Code/Alert [x] Routine visit [] Staff referral [] Actively dying [] Patient sleeping [] Family support [] [] Out of room [] Palliative care [] [] Receiving care in room [] Pre-surgical visit [] Trauma [] Long length of stay [x] ICU visit [] Other: Relational/Emotional Strength [] Patient feels connected with others/family/visitors/staff [] Distress [] Loneliness/isolation [] Abandonment Spirituality of Patient [] Person of Amee [] Attends Lutheran of their Amee [] Believes in Prayer [] Reads Bible or Zoroastrian materials [] There are Spiritual issues to be addressed Esthetician/Owner Interventions [x] Prayer [] Active listening [] Non-anxious presence [] Spiritual/emotional support [] Crisis/trauma care [] Spiritual counseling [] Bereavement support [] Provided bereavement packet [] Provided Bible/devotional materials [] Provided toy/stuffed animal, coloring book to patient or family member [] Provided Communion [] Anointing/[place] [] Salvation [x] Completed spiritual assessment [] Other: Impact on Illness or Injury [] Angry [] Fearful [] Anxious [] Often cries [] Exhaustion [] Unable to work [] Unable to attend adventist [] Unable to walk/stand [] Unable to read [] Unable to drive [] Unable to eat/drink [] Unable to sleep [] Unable to be with family [] Patient intubated [] Other: Summary Time spent with patient
[2020-12-27] MEDS: dexmedetomidine 400 MCG in sodium chloride 0.9% (100 ml) 100 ML IV (10:31)
[2020-12-27] MEDS: famotidine 20 mg/2 mL INJ IVP ×2 (10:31→19:16)
[2020-12-27] MEDS: piperacillin-tazobactam 3.375 GM in sodium chloride 0.9% (plus) 50 ML IV ×2 (10:33→16:34)
[2020-12-27] MEDS: magnesium sulfate premix 2 GM/50 ML PIGGYBACK IV (10:33)
[2020-12-27] MEDS: enoxaparin 40 mg/0.4 mL Syringe SUBCUT (10:34)
[2020-12-27 11:07] LABS: Glucose Point of Care 103 mg/dL (70-110)
[2020-12-27 11:19] LABS: Procalcitonin 2.03 ng/mL (0-0.5)
[2020-12-27 11:20] LABS: Anion Gap 12.7 (5-19); Blood Urea Nitrogen 13 mg/dL (8-23); Calcium 8.3 mg/dL (8.5-10.5); Carbon Dioxide 25 mmol/L (22-29); Chloride 99 mmol/L (98-107); Glomerular Filtration Rate 226.9 mL/min (90-130); Glucose 103 mg/dL (65-115); Osmolality Calculated 276 mOsm/kg (285-295); Potassium 3.7 mmol/L (3.5-5.1); Sodium 133 mmol/L (136-145); Thyroid Stimulating Hormone 0.58 uIU/mL (0.27-4.20)
[2020-12-27 11:30] LABS: Iron 7 ug/dL (37-145); Percent Saturation 2.9 % (20-50); Total Iron Binding Capacity 238 mcg/dl; Unsaturated Iron Binding 231 ug/dL (112-347)
[2020-12-27] MEDS: nystatin powder 15 gm Btl 1 APPLIC TOPICAL ×2 (12:19→17:41)
[2020-12-27] MEDS: sodium chlor 0.9% + KCl 20 mEq 20 MEQ/1,000 ML BAG 100 MEQ IV (12:20)
[2020-12-27 14:13] LABS: Coronavirus Test Green County Not Detected
[2020-12-27 15:25] LABS: Glucose Point of Care 101 mg/dL (70-110)
[2020-12-27] MEDS: FUROsemide 10 mg/mL SDV 2mL 20 MG IVP (16:08)
[2020-12-27] MEDS: morphine 4 mg/mL SDV 1 mL 2 MG IVP (16:20)
[2020-12-27] MEDS: metoprolol tartrate 1 mg/1 mL SDV 5 mL 5 MG IV (16:34)
[2020-12-27 18:14] LABS: Basophils % 0.5 %; Eosinophils % 0.5 %; Hematocrit 29.3 % (37.0-47.0); Hemoglobin 9.6 g/dL (11.5-15.3); Lymphocytes # 0.4 10^3/uL (0.8-4.8); Mean Corpuscular HGB Conc 32.8 g/dL (30.0-36.0); Mean Corpuscular Hemoglobin 30.5 pg (28.0-34.0); Mean Platelet Volume 10.6 fL (7.4-10.4); Monocytes # 0.7 10^3/uL (0.2-0.9); Monocytes % 8.2 %; Neutrophils # 7.62 10^3/uL (1.8-7.7); Neutrophils % 86.5 %; Nucleated Red Blood Cells % 0 %; Platelet Count 162 10^3/cmm (130-400); Red Blood Count 3.15 10^6/uL (4.1-5.3); Red Cell Distribution Width 14.7 % (12.1-15.1); White Blood Count 8.8 10^3/uL (4.0-10.0)
[2020-12-27 18:28] LABS: Lactic Sepsis W/Reflex 0.8 mmol/L (0.5-2.2)
[2020-12-27 18:29] LABS: Alanine Aminotransferase 27 U/L (0-33); Albumin Level 2.5 g/dL (3.5-5.2); Alkaline Phosphatase 70 IU/L (35-105); Anion Gap 15.1 (5-19); Aspartate Amino Transferase 25 U/L (0-32); Blood Urea Nitrogen 10 mg/dL (8-23); Calcium 7.7 mg/dL (8.5-10.5); Carbon Dioxide 23 mmol/L (22-29); Chloride 100 mmol/L (98-107); Globulin 3.5 g/dL (1.3-4.6); Glomerular Filtration Rate 226.9 mL/min (90-130); Glucose 101 mg/dL (65-115); Osmolality Calculated 279 mOsm/kg (285-295); Potassium 3.1 mmol/L (3.5-5.1); Sodium 135 mmol/L (136-145); Total Bilirubin 0.4 mg/dL (0.15-1.2)
--- NOTE | 2020-12-27 18:35 | PC.NURSE ---
Patient was admitted to unit at 0845 via bed from ER. Patient was screaming out and required a 1:1 sitter. Oxygen was ruining at 3L NC. Patient was visibly short of breath and right lower leg was noted to be red, warm and edematous. Patient was A&O x 0 and was unable to follow commands. Only patient belongings with patient was a blanket.
[2020-12-27 19:01] LABS: Slide Review Slide Review Perform
[2020-12-27 20:06] LABS: Glucose Point of Care 127 mg/dL (70-110)
[2020-12-27] MEDS: budesonide 0.5 mg/2 mL Neb INHALATION (20:45)
[2020-12-27 21:18] LABS: Potassium, Radom Urine 48 mmol/L; Urine Random Chloride 74 mmol/L; Urine Random Sodium 32 mmol/L
[2020-12-27] MEDS: dexmedetomidine 400 MCG in sodium chloride 0.9% (100 ml) 100 ML 9.9 MCG IV (22:21)
[2020-12-28] VITALS (207 sets, daily range): BP systolic 123–203; BP diastolic 58–124; PULSE 59–101; RESP 15–38; TEMP 36.5–37.5; O2SAT 65–100
[2020-12-28 00:49] LABS: Glucose Point of Care 177 mg/dL (70-110)
[2020-12-28] MEDS: piperacillin-tazobactam 3.375 GM in sodium chloride 0.9% (plus) 50 ML IV ×2 (01:33→09:00)
[2020-12-28] MEDS: ipratropium-albuterol 3 mL Neb INHALATION ×4 (03:15→20:21)
[2020-12-28] MEDS: vancomycin 1,500 MG/300 ML PIGGYBACK 200 MG IV ×3 (03:38→18:04)
[2020-12-28 04:03] LABS: Basophils # 0.1 10^3/uL (0.0-0.1); Basophils % 0.5 %; Hematocrit 31.5 % (37.0-47.0); Hemoglobin 10.1 g/dL (11.5-15.3); Lymphocytes # 0.5 10^3/uL (0.8-4.8); Lymphocytes % 4.1 %; Mean Corpuscular HGB Conc 32.1 g/dL (30.0-36.0); Mean Corpuscular Hemoglobin 30.6 pg (28.0-34.0); Mean Corpuscular Volume 95.5 fL (81-99); Mean Platelet Volume 10.6 fL (7.4-10.4); Monocytes # 0.8 10^3/uL (0.2-0.9); Monocytes % 6.1 %; Neutrophils # 11.34 10^3/uL (1.8-7.7); Neutrophils % 88.9 %; Nucleated Red Blood Cells % 0 %; Platelet Count 174 10^3/cmm (130-400); Red Cell Distribution Width 14.8 % (12.1-15.1); White Blood Count 12.8 10^3/uL (4.0-10.0)
[2020-12-28 04:28] LABS: Alanine Aminotransferase 25 U/L (0-33); Albumin Level 2.7 g/dL (3.5-5.2); Alkaline Phosphatase 87 IU/L (35-105); Anion Gap 18.3 (5-19); Aspartate Amino Transferase 20 U/L (0-32); Blood Urea Nitrogen 13 mg/dL (8-23); Calcium 8.5 mg/dL (8.5-10.5); Carbon Dioxide 20 mmol/L (22-29); Chloride 99 mmol/L (98-107); Globulin 3.7 g/dL (1.3-4.6); Glomerular Filtration Rate 226.9 mL/min (90-130); Glucose 175 mg/dL (65-115); Magnesium 1.7 mg/dL (1.7-2.3); Osmolality Calculated 282 mOsm/kg (285-295); Phosphorus 2.2 mg/dL (2.5-4.5); Potassium 3.3 mmol/L (3.5-5.1); Sodium 134 mmol/L (136-145); Total Bilirubin 0.4 mg/dL (0.15-1.2); Total Protein 6.4 g/dL (6.6-8.7)
[2020-12-28 04:50] LABS: Creatine Phosphokinase 230 U/L (26-192)
[2020-12-28 05:14] LABS: Estmated Average Glucose 137; Hemoglobin A1C 6.4 % (4.0-6.0)
[2020-12-28 05:42] LABS: Glucose Point of Care 195 mg/dL (70-110)
[2020-12-28] MEDS: famotidine 20 mg/2 mL INJ IVP ×2 (06:02→18:04)
[2020-12-28] MEDS: enoxaparin 40 mg/0.4 mL Syringe SUBCUT (06:02)
--- NOTE | 2020-12-28 07:52 | PC.NURSE ---
AM NOTE REPORT REC'D FROM JACKIE - PRECEDEX DRIP AT 0.5 - PT AWAKENING - AGITATED -PT ALERT TO SELF ONLY AT PRESENT TIME PULLING AT IV/OXYGEN STATING JUST HELP ME - JUST GIVE ME SOMETHING ALERT TO NAME - REPOSITIONED X2 STAFF - 02 3L NC - PRECEDEX DRIP INCREASED TO 0.6 PER THIS NURSE WITH ASSIST FROM LEDY GARZA - INSP WHEEZES NOTED THROUGHOUT - IV X2 LEFT FA/WRIST - SECURED WITH COBAN - ABD SOFT WITH NO DISTENTION - BS HYPOACTIVE - CALDERÓN NOTED TO BE PATENT WITH YELLOW URINE - NOTED RIGHT LOWER EXT TO HAVE 3+ EDEMA NOTED WITH DARK REDDENED AREA THROUGHOUT - RIGHT FOOT DEFORMITY NOTED WITH APPROX QUARTER SIZE AREA SCABBED NOTED TO INNER RIGHT ANKLE AREA - BLE UP ON PILLOWS - 1:1 SITTER AT SIDE - PT CALMING
[2020-12-28] MEDS: dexmedetomidine 400 MCG in sodium chloride 0.9% (100 ml) 100 ML 14.9 MCG IV (08:01)
[2020-12-28] MEDS: budesonide 0.5 mg/2 mL Neb INHALATION ×2 (08:41→20:21)
--- NOTE | 2020-12-28 08:49 | PC.NURSE ---
PRECEDEX TITRATED TO 0.7 DUE TO PT ATTEMPTING TO GET OUT OF BED - 1:1 AT SIDE
--- NOTE | 2020-12-28 08:56 | PC.CHAP ---
Pastoral Care Encounter/Spiritual Assessment Type of Contact [] Declined senior information systems architect visit [] Patient/Family/Request visit [] Outpatient visit [] Follow-up visit [] Physician referral [] Code/Alert [x] Routine visit [] Staff referral [] Actively dying [] Patient sleeping [] Family support [] [] Out of room [] Palliative care [] [] Receiving care in room [] Pre-surgical visit [] Trauma [] Long length of stay [x] ICU visit [] Other: Relational/Emotional Strength [] Patient feels connected with others/family/visitors/staff [] Distress [] Loneliness/isolation [] Abandonment Spirituality of Patient [] Person of Amee [] Attends Holiness of their Amee [] Believes in Prayer [] Reads Bible or Islam materials [] There are Spiritual issues to be addressed Director Of Primary Interventions [x] Prayer [] Active listening [] Non-anxious presence [] Spiritual/emotional support [] Crisis/trauma care [] Spiritual counseling [] Bereavement support [] Provided bereavement packet [] Provided Bible/devotional materials [] Provided toy/stuffed animal, coloring book to patient or family member [] Provided Communion [] Anointing/[place] [] Salvation [x] Completed spiritual assessment [] Other: Impact on Illness or Injury [] Angry [] Fearful [] Anxious [] Often cries [] Exhaustion [] Unable to work [] Unable to attend mosque [] Unable to walk/stand [] Unable to read [] Unable to drive [] Unable to eat/drink [] Unable to sleep [] Unable to be with family [] Patient intubated [] Other: Summary Time spent with patient
[2020-12-28] MEDS: morphine 4 mg/mL SDV 1 mL 2 MG IVP ×2 (08:57→13:10)
--- NOTE | 2020-12-28 09:12 | PC.NURSE ---
DR NORRIS PISANO IN UNIT - NOTIFIED OF MOST RECENT VITAL SIGNS, CURRENT PRECEDEX SETTING AND PTS INCREASED AGITATION AND ATTEMPTING TO GET OUT OF BED - REQUESTS TO DO A PHYSICAL ASSESSMENT PRIOR TO ORDERS - 1:1 REMAINS AT SIDE
--- NOTE | 2020-12-28 09:28 | XR_ITS ---
WS: [id number] Portable AP upright chest, 12/28/2020 Clinical Data: sob, ?covid Comparison: Portable chest, 12/27/2020. Findings: A minimal left midlung patchy opacity has developed which could represent pneumonia. The ri ght lung remains clear. The heart is enlarged. No nodules, masses or effusions are seen. The aortic a rch and descending aorta are minimally tortuous. Monitor leads are on the chest wall. The patient has had extensive anterior cervical disc fusion and posterior cervical and upper thoracic posterior fusi on surgery. There is a dextroscoliosis of the thoracic spine. XR/XR chest 1V portable [id number] Impression: 1. Development of minimal patchy opacity in lateral aspect of left lung which c ould represent atelectasis and/or pneumonia. 2. Atherosclerosis and cardiomegaly.
[2020-12-28] MEDS: nystatin powder 15 gm Btl 1 APPLIC TOPICAL ×2 (09:40→17:14)
--- NOTE | 2020-12-28 10:15 | PC.NURSE ---
LATE ENTRY 1000 PRECEDEX GTT INCREASED TO 1.2 - CONTINUED AGITATION AND CONFUSION - ATTEMPTS TO GET OUT OF BED - DOES NOT REORIENTATE WITH ATTEMPTS - 1:1 REMAINS AT SIDE
[2020-12-28] MEDS: LORazepam 2 mg/mL INJ 1 mL 1 MG IVP ×2 (10:26→14:45)
--- NOTE | 2020-12-28 10:28 | PC.NURSE ---
INCREASE AGITATION DR MAYNARD NOTIFIED OF CONTINUED INCREASE IN AGITATION WITH PRECEDEX MAX DOSE PER ORDER OF 1.2 - ORDER REC'D TO GIVE 1MG IVP ATIVAN NOW - DONE
[2020-12-28] MEDS: iron sucrose 200 MG in sodium chloride 0.9% (100 ml) 100 ML 220 MG IV (10:35)
[2020-12-28] MEDS: sodium chlor 0.9% + KCl 20 mEq 20 MEQ/1,000 ML BAG 50 MEQ IV ×2 (11:00→15:48)
[2020-12-28 11:06] LABS: NT Pro B Type Natriuretic Pept 2551 pg/mL (0-125); Procalcitonin 1.67 ng/mL (0-0.5)
[2020-12-28 11:12] LABS: Glucose Point of Care 208 mg/dL (70-110)
[2020-12-28] MEDS: HYDROmorphone 1 mg/mL INJ 1 mL IVP ×4 (11:15→23:20)
[2020-12-28 11:23] LABS: Vancomycin Trough 18.2 ug/mL (10-15)
--- NOTE | 2020-12-28 11:56 | PC.NURSE ---
MID SHIFT UPDATE PT CURRENTLY CALM WITH EYES CLOSED - PRECEDEX AT 0.8 -THROUGHOUT SHIFT WHEN PT AWAKENS NOTED IMMEDIATE INCREASE IN AGITATION, INABILITY TO FOLLOW COMMANDS, REMAINS DISORIENTATED TO PLACE AND SITUATION - MULTIPLE ATTEMPTS THROUGHOUT SHIFT TO GET OUT OF BED - VANC TROUGH WITHIN NORMAL LIMITS PER LAB - VANC INFUSING - 1:1 SITTER AT SIDE
[2020-12-28] MEDS: dexmedetomidine 400 MCG in sodium chloride 0.9% (100 ml) 100 ML 19.8 MCG IV ×2 (12:27→17:39)
--- NOTE | 2020-12-28 13:19 | PC.NURSE ---
LP DR CHONG AND DR THAKKAR IN ROOM AT 1245 IN ATTEMPT TO DO LP - X3 UNSUCCESSFUL ATTEMPTS - PT BECAME INCREASINGLY AGITATED AND UNCOOPERATIVE - DR BRANNON AWARE
--- NOTE | 2020-12-28 13:25 | P.PN_ITS ---
Subjective Subjective: Interval history: Overnight patient has remained hemodynamically stable. She continues to remain confused and altered. On examination patient is moving all her limbs though incorrectly. She seems to be in pain with occasional auditory hallucinations. She seems to calm down more and dark environment when the lights are switched off. Neck seems to be extremely rigid though she has a history of multiple neck surgeries in the past with most recently in 2018 as per her life partner. On my further conversation with a life partner she has been complaining of headaches for last 3 days with one episode of nausea before she became incoherent and was brought to the ER. Pain was localized on the left side. She is also been complaining of bilateral knee pain more in left than right. He states he has never noticed her using amphetamines but he thinks she uses amphetamines only on the weekends. Patient has remained hemodynamically stable with heart rate mostly ranging from 80 to 100 bpm with T-max of 101.3 Fahrenheit. Vitals/I&O/Wt Last Vital Signs Temp 98.6 F 12/28/20 10:00 Pulse 64 12/28/20 11:53 Resp 18 12/28/20 13:10 BP 138/73 12/28/20 11:53 Pulse Ox 95 12/28/20 11:53 12/27/20 12/28/20 12/28/20 22:59 06:59 14:59 Intake Total 1109.167 / 1409.167 482.34 / 1891.507 163.780 / 163.780 Output Total 1100 / 2500 525 / 3025 Balance 9.167 / -1090.833 -42.66 / -1133.493 163.780 / 163.780 Weight last 48 hrs Weight 95.254 kg Physical Exam Narrative: EXAM NARRATIVE: General: Altered, and currently moving both her arms, HEENT: PERRLA, pupils bilaterally equal and reactive Chest: Normal vesicular breath sounds, bilateral rhonchi present all over the lung marrero, equal good air entry bilaterally CVS: S1-S2 regular, no murmurs, no tachycardia, no gallops, no rubs Abdomen: Soft, nontender, no organomegaly, bowel sounds present Neuro: No focal deficits, no facial deformity, AO x3, power 5/5 in all limbs Skin: OTHER: Erythema noted under both breasts left greater than right, some scattered petechiae on the upper chest. There is erythema with satellite lesions in both groins. Both lower extremities with erythema and warmth from knee to foot right much more prominent than the left. There is a small dime sized bruise upper outer calf. She has skin breakdown on the right heel and the left forefoot present on admission. There is a scab sore to the right great toe. There are other scabbed sores to both lower extremities. No oozing c urrently Urinary Catheter Management^: Garber: Cath Placed During This Visit: yes Reason for Continuing Indwelling Catheter: Accurate Measurement of Urinary Output in Critically Ill Patients Urinary Catheter Date of Insertion: 12/27/20 Urinary Catheter Time of Insertion: 00:51 Data : 12/28/20 03:29 12/28/20 03:29 Other Labs: Pertinent Labs During Stay 12/27/20 12/27/20 12/27/20 00:46 00:46 00:46 Hemoglobin A1c Iron TIBC % Saturation Creatine Kinase 390 H* Troponin T Gen 5 ng/L 10 C-Reactive Protein 337.6 H NT-Pro-B Natriuret Pep 500 H Procalcitonin TSH Vancomycin Trough Acetaminophen < 5.0 L 12/27/20 12/27/20 12/28/20 10:41 10:41 03:29 Hemoglobin A1c Iron 7 L TIBC 238 % Saturation 2.9 L Creatine Kinase 230 H Troponin T Gen 5 ng/L C-Reactive Protein NT-Pro-B Natriuret Pep Procalcitonin 2.03 H TSH 0.58 Vancomycin Trough Acetaminophen 12/28/20 12/28/20 12/28/20 03:29 09:55 09:55 Hemoglobin A1c 6.4 H Iron TIBC % Saturation Creatine Kinase Troponin T Gen 5 ng/L C-Reactive Protein NT-Pro-B Natriuret Pep 2551 H Procalcitonin 1.67 H TSH Vancomycin Trough 18.2 H Acetaminophen Impressions Head CT 12/27/20 00:35 IMPRESSION: No acute intracranial abnormality. Radiation Dose CTDIVOL = (mGy): DLP = 1452.71 (mGy-cm) Chest CTA 12/27/20 01:34 IMPRESSION: 1. Mild patient motion. No pulmonary embolus is seen. 2. Mild emphysema Radiation Dose CTDIVOL = (mGy): DLP = 617.12 (mGy-cm) Abdomen/Pelvis CT 12/27/20 02:48 IMPRESSION: 1. No acute findings. Negative for adenopathy. 2. Fatty change is present liver. 3. The uterus is surgically absent. Radiation Dose CTDIVOL = (mGy): DLP = 1820.1 (mGy-cm) Foot CT 12/27/20 02:48 IMPRESSION: No evidence of osteomyelitis is seen. No fracture is present. Changes of cellulitis are seen. Radiation Dose CTDIVOL = (mGy): DLP = 391.66 (mGy-cm) Chest X-Ray 12/28/20 09:28 Impression: 1. Development of minimal patchy opacity in lateral aspect of left lung which could represent atelectasis and/or pneumonia. 2. Atherosclerosis and cardiomegaly. Micro: Microbiology 12/27/20 00:46 Blood Culture - Preliminary Blood Group g streptococcus 12/27/20 00:45 Legionella Urinary Antigen - Final Unknown Source 12/27/20 01:28 Blood Culture - Preliminary Blood NEGATIVE TO DATE 12/27/20 15:40 Blood Culture - Preliminary Blood SPECIMEN COLLECTED 12/27/20 15:41 Blood Culture - Preliminary Blood SPECIMEN COLLECTED A&P Assessment and plan (1) Streptococcal bacteremia: Status: Acute (2) Sepsis: Status: Acute (3) Acute encephalopathy: Status: Acute (4) Methamphetamine use: Looks to be a longstanding means of managing pain for this patient on r eview of records and has led to not being able to be managed at at least our pain clinic here. Status: Chronic (5) Cellulitis: Bilateral lower extremities, left more significant than right. Status: Acute Qualifiers: Laterality: right Site of cellulitis: extremity Site of cellulitis of extremity: lower extremity Qualified Code(s): L03.115 - Cellulitis of right lower limb (6) Hypoxemia: Not chronically on oxygen, history of prior tobacco use, CTA with some emphysematous changes but otherwise unremarkable. Status: Acute (7) Diabetes mellitus, type II: Looks to chronically only be on Metformin, currently with hyperglycemia Status: Chronic Qualifiers: Diabetes mellitus complication detail: with other arthropathy Diabetes mellitus complication status: with diabetic arthropathy Diabetes mellitus terminal supervisor insulin use: without senior care use Qualified Code(s): E11.618 - Type 2 diabetes mellitus with other diabetic arthropathy (8) Hypertension: Chronically on Lasix and atenolol with potassium replacement Status: Chronic Qualifiers: Hypertension type: unspecified Qualified Code(s): I10 - Essential (primary) hypertension (9) Hyperlipidemia: Chronically on fenofibrate Status: Chronic Qualifiers: Hyperlipidemia type: unspecified Qualified Code(s): E78.5 - Hy perlipidemia, unspecified (10) Chronic pain: Looks to be chronically prescribed baclofen and gabapentin Status: Chronic Qualifiers: Chronic pain type: other chronic pain Qualified Code(s): G89.29 - Other chronic pain (11) Depression with anxiety: Looks to chronically be on Effexor and BuSpar Status: Acute (12) Tinea corporis: Status: Acute (13) 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 Unfortunately lumbar puncture could not be done even after multiple tries both by oncologist and radiologist. Could still be multifactorial because of combination of sepsis from cellulitis, gram-positive bacteremia along with polysubstance abuse with the UA positive for opiates and amphetamines along though withdrawal cannot be ruled out. Streptococcal bacteremia Sepsis: Keep mean arterial pressure over 65. Continue with IV fluids at 50 cc an hour for now. We will have to monitor for fluid overload. Patient has remained hemodynamically stable. Continue with vancomycin. We will switch Zosyn to cefepime for better meningeal penetration. Given extensive cellulitis we will have to cover for pseudomonal coverage even though blood is only growing Streptococcus for now. Repeat blood cultures have remained negative. Cannot rule out meningitis for now so we will add acyclovir 10 mg/kg body weight 3 times a day. We will get x-ray of bilateral knee to rule out effusions. If patient continues to remain altered even after 24 hours of appropriate IV treatment will get MRI brain imaging. If repeat blood cultures come back positive we will have to do CT scan back to rule out discitis given multiple back surgeries in the past. COVID-19 PCR negative. Remove isolation precautions. Send respiratory viral panel, repeat procalcitonin. MRSA swab still awaited. If MRSA swab comes back negative can discontinue vancomycin. Hypoxemia: CT chest concerning for mild emphysema though cannot rule out obstructive sleep apnea as well given the body habitus. ABG for admission jose ramon reciated. Keep saturations over 92%. Continue with DuoNebs and budesonide twice daily for now. Continue with Solu-Medrol 40 mg every 6 hours. Echocardiogram results appreciated. Strict input output charting, daily weights. Type 2 diabetes mellitus: Insulin sliding scale at moderate dose every 6 hours as patient is n.p.o. because of her mental status. Hypertension: Goal blood pressure less than 140/90 mmHg keeping mean arterial pressure over 65. Patient having tachycardia could be secondary to sepsis versus polysubstance abuse. Start patient on metoprolol 5 mg IV every 6 hours as needed for heart rate of more than 110 while keeping systolic blood pressure more than 110 mmHg. Full code. NPO. Lovenox 40 daily for DVT prophylaxis. Discussed patient care in detail with her life partner who is also on her paperwork but not DPOA Mr. Floyd. Also informed that unfortunately if there is no DPOA paperwork in system we will have to discuss her health and medical decisions with her next of kin who would be her son. As per Mr. Floyd her son's name if Odell Stanford whose phone number is [phone]. Tried multiple times to get in touch with Mr. Bain but unfortunately not able to. We will continue to try. Critically ill, guarded prognosis for now. Continue with ICU care. Attestations Medical Necessity Statement*: Patient requires further hospitalization for management of streptococcal bacteremia, sepsis, acute encephalopathy most likely from meningitis though cannot rule out polysubstance abuse Time Spent in Patient Care: Greater than 35 minutes (>than 50% of time spent in counselling and/or direct pt care on unit) . Coding Level of Care Code Acute Director Imaging for [facility] Fwd Diagnoses Streptococcal bacteremia R78.81; B95.5 Sepsis A41.9 Acute encephalopathy G93.40 Methamphetamine use F15.10 Cellulitis L03.115 Laterality: right Site of cellulitis: extremity Site of cellulitis of extremity: lower extremity Hypoxemia R09.02 Diabetes mellitus, type II E11.618 Diabetes mellitus complication detail: with other arthropathy Diabetes mellitus complication status: with diabetic arthropathy Diabetes mellitus terminal supervisor insulin use: without senior care use Hypertension I10 Hypertension type: unspecified Hyperlipidemia E78.5 Hyperlipidemia type: unspecified Chronic pain G89.29 Chronic pain type: other chronic pain Depression with anxiety F41.8 Tinea corporis B35.4 Rgczvsa-Hyytv-Ctlpf disease-like deformity of foot G60.0
[2020-12-28] MEDS: potassium chloride premix 100 ML 25 MEQ IV (13:34)
[2020-12-28] MEDS: lidocaine 1% INJ 20 mL 5 ML IV (13:34)
--- NOTE | 2020-12-28 15:53 | PC.NURSE ---
LATE ENTRY 1430 - TAKEN PT OUT OF ROOM TO X RAY FOR ATTEMPT AT LP - THIS NURSE AND CHANTE RN AT SIDE - PT REMAINED ON MONITORS - ATTEMPTED TO GET PATIENT PRONE ON BED - PT BECAME INCREASINGLY AGITATED - KICKING AT STAFF, YELLING REFUSING TO LAY ON STOMACH - 1445 IVP ATIVAN 1MG GIVEN - NO RESULTS IN PATIENT CALMINGMULTIPLE STAFF AT SIDE TO ASSIST TO PT BACK TO BED - NOTED LEFT FA IV TO BE PULLED OUT - RETURNED TO ROOM - PT NOTED TO HAVE INCREASED AGITATION REMAINING UPON ENTERING ROOM - REATTACHED TO MONITORS IN ROOM - BP 123/58 - PULSE 95 RESP 22 - O2 90 ON 2L - [address] MAYNARD AT SIDE GIVING ORDERS - RT AT SIDE TO DO NEB - IGORRN AT PTS SIDE TO RESTART IV VIA US - X1 SUCCESSFUL ATTEMPT TO 20 GAUGE TO LEFT UPPER ARM - 02 SAT NOTED TO BE 88-90 - POST TREATMENT SATS AT 96% - AUDIBLE WHEEZES REMAIN - DR AWARE - INSTRUCTED PER DOC TO DECREASE ALL STIMULI TO PATIENT - PRECEDEX INCREASED TO 1
--- NOTE | 2020-12-28 15:54 | XR_ITS ---
WS: [id number] Left knee, AP and lateral views, 12/28/2020 Clinical Data: r/o effusion Comparison: Left knee, 07/26/2018. Findings: Severe osteoarthritic change throughout the left knee is present. There is pleural loss of joint spac e on the medial lateral joint compartments. There is irregularity of the posterior patella with loss of joint space. There is anterior spurring of the patella. There are large spurs of the medial latera l femoral condyles. No distinct effusion is seen. XR/XR knee LT 1-2V 25791 Impression: 1. Severe osteoarthritis of the left knee. 2. No left knee joint effusion.
--- NOTE | 2020-12-28 15:54 | XR_ITS ---
WS: [id number] Right knee, AP and lateral views, 12/28/2020 Clinical Data: r/o effusion Comparison: Right knee, 10/03/2007. Findings: A right knee arthroplasty is in position. No loosening is seen. The soft tissues are normal. XR/XR knee RT 1-2V 23820 Impression: Right knee arthroplasty.
--- NOTE | 2020-12-28 16:00 | PM.ACPR ---
Procedure/Consent Time out: Time Out Performed: Yes Consent: Consent for Procedure: Consent obtained from other (indicate) () and Risks & Benefits reviewed Procedure Narrative: Hospitalist Dr. Clark consulted me to perform Lumbar Puncture as patient has altered mental status. Reviewed labs and medications prior to procedure. Lumbar Puncture Procedure Note: Date: 12/28/2020 Time: 1300 Indication: Altered mental status Attending : Kirk Alvares MD A time-out was completed verifying correct patient, procedure, site, positioning, and special equipment if applicable. The patient was placed in the Left lateral decubitus position in a semi- position with help from the nursing staff. The area was cleansed and draped in usual sterile fashion. 1% lidocaine was used anesthetize the surrounding skin area. A 3.5-inch spinal needle was placed in the L3-L4 interspace. unable to obtain csf fluid. Dry tap. I assume patient obese body habitus is also making it difficult to reach CSF Recommended Hospitalist taking care of the patient to obtain LP under CT guidance. Estimated Blood Loss: 1ml. Complications: No complications during the procedure. Acute Procedures Epistaxis Control: Time out performed: Yes
[2020-12-28] MEDS: cefepime 2,000 MG in sodium chloride 0.9% (plus) 50 ML 100 MG IV (16:24)
[2020-12-28] MEDS: acyclovir 1,000 MG in sodium chloride 0.9% (100 ml) 100 ML 120 MG IV (17:01)
[2020-12-28 17:08] LABS: Glucose Point of Care 207 mg/dL (70-110)
[2020-12-28 20:50] LABS: Glucose Point of Care 178 mg/dL (70-110)
[2020-12-28] MEDS: haloperidol inj 5 mg/mL INJ 1 mL 1 MG IVP (21:57)
[2020-12-28] MEDS: dexmedetomidine 400 MCG in sodium chloride 0.9% (100 ml) 100 ML 24.8 MCG IV (22:37)
[2020-12-29] VITALS (144 sets, daily range): BP systolic 79–200; BP diastolic 47–118; PULSE 81–134; RESP 7–41; TEMP 37.2–38.3; O2SAT 81–100
[2020-12-29] MEDS: acyclovir 1,000 MG in sodium chloride 0.9% (100 ml) 100 ML 120 MG IV ×3 (01:01→17:13)
[2020-12-29] MEDS: ipratropium-albuterol 3 mL Neb INHALATION ×4 (02:22→20:32)
[2020-12-29] MEDS: dexmedetomidine 400 MCG in sodium chloride 0.9% (100 ml) 100 ML 24.8 MCG IV (02:37)
[2020-12-29] MEDS: HYDROmorphone 1 mg/mL INJ 1 mL IVP ×4 (03:07→21:11)
[2020-12-29] MEDS: vancomycin 1,500 MG/300 ML PIGGYBACK 200 MG IV ×3 (03:14→19:47)
[2020-12-29 04:11] LABS: Basophils # 0.1 10^3/uL (0.0-0.1); Basophils % 0.5 %; Eosinophils % 0.1 %; Hematocrit 30.3 % (37.0-47.0); Hemoglobin 9.8 g/dL (11.5-15.3); Lymphocytes # 0.6 10^3/uL (0.8-4.8); Lymphocytes % 2.9 %; Mean Corpuscular HGB Conc 32.3 g/dL (30.0-36.0); Mean Corpuscular Volume 92.7 fL (81-99); Monocytes # 0.9 10^3/uL (0.2-0.9); Monocytes % 4.8 %; Neutrophils # 17.05 10^3/uL (1.8-7.7); Neutrophils % 87.1 %; Nucleated Red Blood Cells % 0.1 %; Platelet Count 214 10^3/cmm (130-400); Red Blood Count 3.27 10^6/uL (4.1-5.3); Red Cell Distribution Width 14.9 % (12.1-15.1); White Blood Count 19.6 10^3/uL (4.0-10.0)
[2020-12-29] MEDS: cefepime 2,000 MG in sodium chloride 0.9% (plus) 50 ML 100 MG IV ×2 (04:22→15:32)
[2020-12-29 04:30] LABS: Alanine Aminotransferase 21 U/L (0-33); Albumin Level 2.6 g/dL (3.5-5.2); Alkaline Phosphatase 97 IU/L (35-105); Anion Gap 12.7 (5-19); Aspartate Amino Transferase 13 U/L (0-32); Blood Urea Nitrogen 16 mg/dL (8-23); Calcium 8.1 mg/dL (8.5-10.5); Carbon Dioxide 25 mmol/L (22-29); Chloride 106 mmol/L (98-107); Globulin 3.9 g/dL (1.3-4.6); Glomerular Filtration Rate 226.9 mL/min (90-130); Glucose 138 mg/dL (65-115); Osmolality Calculated 293 mOsm/kg (285-295); Potassium 3.7 mmol/L (3.5-5.1); Sodium 140 mmol/L (136-145); Total Bilirubin 0.4 mg/dL (0.15-1.2); Total Protein 6.5 g/dL (6.6-8.7)
--- NOTE | 2020-12-29 05:32 | PC.NURSE ---
Patient screaming most of the night, then went into tachycardia heart rate, assceossry muslce use for breathing, respirations rate excessive, called Dr. Valencia and updated condition stat RSI
[2020-12-29 05:38] LABS: Glucose Point of Care 135 mg/dL (70-110)
[2020-12-29 05:38] LABS: Glucose Point of Care 192 mg/dL (70-110)
[2020-12-29] MEDS: propofol 1,000 MG/100 ML INJ 2.9 MG IV (05:40)
--- NOTE | 2020-12-29 05:48 | XR_ITS ---
WS: [id number] Portable AP supine chest, 12/29/2020 Clinical Data: RSI Comparison: Portable chest, 12/28/2020 Findings: The endotracheal tube is above the petty. The nasogastric tube appears to end in the stoma ch. Bilateral pulmonary opacities have increased since yesterday. The heart remains enlarged. The aor tic arch and descending aorta are tortuous. Monitor leads are on the chest wall. The patient has had an anterior cervical disc fusion and a posterior fusion of the upper thoracic and lower cervical spin e. XR/XR chest 1V portable [id number] Impression: 1. Endotracheal tube above petty and nasogastric tube appears to be in the sto mach. 2. Increase in bilateral pulmonary opacities. 3. Cardiomegaly and atherosclerosis.
[2020-12-29] MEDS: midazolam 1 mg/mL INJ 5 ML 5 MG (06:07)
[2020-12-29] MEDS: succinylcholine 20 mg/mL SDV 10mL IVP (06:07)
--- NOTE | 2020-12-29 06:09 | PC.NURSE ---
RSI completed per Dr. Valencia, size 8 Endotracheal tube inserted 23 @ the lip, positive color received, positive auscultation heard for placement, OG tube inserted per orders, placement verified by xray. Continue care.
--- NOTE | 2020-12-29 06:18 | PM.CCN ---
Critical Care Event Note Critical Care Event The high probability of a clinically significant, sudden or life threatening deterioration of the patient's respiratory system(s) required my full and direct attention, intervention and personal management. The critical care time is as shown. This time is in addition to time spent performing any reported procedures but includes the following: [x] Data and vital sign review and interpretation [x] Patient assessment, examination and intervention [x] Documentation [x] Medication orders and management Called with patient having sudden onset of significant respiratory distress and drop in oxygen saturations. Upon my arrival she was breathing approximately 40 times a minute. Accessory muscle use noted with supraclavicular and subcostal retractions. Heart rate was 130s to 140s. Patient was unresponsive which is a change from when I admitted her where she vocalized. Decision made to proceed emergently to intubation given clinical appearance. Chest x-ray post procedure shows bilateral infiltrates not present yesterday. I did review Covid testing and both the rapid and PCR test were negative yesterday. Multiple other tests are pending to try to pinpoint an infectious etiology are currently pending. Initial blood cultures grew group G strep. Of note patient's lower extremities are markedly improved compared to had a lot when she presented. She is positive around 1700 L since admission. Morning labs reviewed. Getting lactic acid, CK level and BNP. Currently on cefepime, vancomycin, acyclovir. Sputum culture ordered. Fentanyl and propofol for sedation. She has 3 IVs currently. Critical Care Time Critical Care Time: Code activated: No Critical Care Time (min): 37 Additional information about critical care time: Time above includes intubation noted below Procedures Intubation Time out performed: Yes Sedative: etomidate Mg given: 20 Paralytic: succinylcholine Mg given: 200 Laryngoscope: fiber optic video scope ET tube size: 8 Tube secured depth (cm): 23 Tube secured location: lips Tube placement confirmation: visualized tube passing through cords, equal breath sounds bilaterally, no breath sounds over epigastrium and color change noted Patient tolerated procedure: well Intubation complications: none Additional comments: Personally reviewed chest x-ray showing ET tube in good position Patient also received 5 mg of Versed for RSI Coding Level of Care Code Acute Lining Machine Operator for [facility]
--- NOTE | 2020-12-29 06:24 | PC.NURSE ---
Called and talked to Aunt and currently talking to mom (Hien) to update family on patients change in condition and intubation. Continue care.
[2020-12-29 06:37] LABS: ABG PCO2 49.9 mmHg (35-45); ABG PH Result 7.32 (7.35-7.45); Alveolar-Arterial Oxygen Gradi 44.5 mmHg (5-10); Arterial Blood Gas Hematocrit 31.3 % (37-47); Base Excess ABG -1.1 mmol/L (-2.0-2.0); Blood Gas Sample Site Radial, left; Blood Gas Sample Type Arterial; Carboxyhemoglobin 0.7 %THgb (0.4-20.1); HCO3 ABG 25.4 mmol/L (22-26); HGB O2 Sat 98.2 % (95-100); Ionized Calcium Level - ABG 1.2 mmol/L (1.1-1.4); Methemoglobin 0.8 % (0.4-1.5); Oxygen Device VENT; Oxygen Saturation ABG 99.7; Potassium Level - ABG 3.9 mmol/L (3.5-5.0); Total Hemoglobin 10.2 g/dL (12-16)
--- NOTE | 2020-12-29 06:44 | ECG_ITS ---
[facility] Test Date: 2020-12-29 Pat Name: Polina Snyder Department: Room: [facility] Gender: Female Jailkeeper: : 1960 Requested By: Alejandra Valencia Order Number: [id number] Rosalba MD: Gil Ramos M.D. Measurements Intervals [place] Rate: 83 P: 53 TX: 134 QRS: 23 QRSD: 89 T: 43 QT: 359 QTc: 424 Interpretive Statements SINUS RHYTHM POSSIBLE LEFT ATRIAL ENLARGEMENT [-0.1mV P WAVE IN V1/V2] Compared to ECG 12/27/2020 00:33:51 T-wave abnormality no longer present Electronically Signed On 12-29-2020 16:03:31 MOBILE MARKETING SPECIALIST by Gil Ramos M.D. [id number]
[2020-12-29] MEDS: famotidine 20 mg/2 mL INJ IVP ×2 (07:47→18:38)
[2020-12-29] MEDS: enoxaparin 40 mg/0.4 mL Syringe SUBCUT (07:47)
[2020-12-29 07:56] LABS: Lactic Sepsis W/Reflex 1.2 mmol/L (0.5-2.2)
[2020-12-29] MEDS: budesonide 0.5 mg/2 mL Neb INHALATION ×2 (08:14→20:32)
[2020-12-29 08:18] LABS: Creatine Phosphokinase 91 U/L (26-192); NT Pro B Type Natriuretic Pept 4628 pg/mL (0-125)
[2020-12-29 08:31] LABS: Glucose Point of Care 173 mg/dL (70-110)
[2020-12-29 08:33] LABS: Troponin(5th) Baseline 57 ng/L (0-10)
--- NOTE | 2020-12-29 08:44 | ECG_ITS ---
[facility] Test Date: 2020-12-29 Pat Name: Polina Snyder Department: Room: [facility]06 Gender: Female Ceramics Machine Operator: : 1960 Requested By: Alejandra Valencia Order Number: [id number] Rosalba MD: Gil Ramos M.D. Measurements Intervals [place] Rate: 99 P: 57 CT: 126 QRS: 20 QRSD: 93 T: 43 QT: 340 QTc: 437 Interpretive Statements SINUS RHYTHM POSSIBLE LEFT ATRIAL ENLARGEMENT [-0.1mV P WAVE IN V1/V2] NONSPECIFIC T-WAVE ABNORMALITY Compared to ECG 12/29/2020 08:02:01 T-wave abnormality now present Electronically Signed On 12-29-2020 16:06:53 SHIFT PRODUCTION SUPERVISOR by Gil Ramos M.D. [id number]
--- NOTE | 2020-12-29 08:54 | P.PN_ITS ---
Subjective Subjective: Interval history: Overnight patient became more altered and was not in respiratory distress or to protect the airway she was intubated. Blood pressures have maintained with mean arterial pressure over 65. T-max in last 24 hours 99.5 Fahrenheit. On examination patient lying comfortably in bed, sedated on propofol and fentanyl, running normal saline 50 cc/h. Currently she is on ventilator setting of PEEP of 8, tidal volume of 400 saturating 94%. Tidal volume increased to 450 as per total IV body weight, PEEP decreased to 6. Repeat ABG in 1 hour adjusted. Vitals/I&O/Wt Last Vital Signs Temp 99 F 12/29/20 05:00 Pulse 88 12/29/20 08:22 Resp 2 L 12/29/20 08:23 BP 105/62 12/29/20 07:45 Pulse Ox 97 12/29/20 08:17 12/28/20 12/29/20 12/29/20 22:59 06:59 14:59 Intake Total 1576.96 / 1740.740 646.011 / 2386.751 52.458 / 52.458 Output Total 1000 / 1000 850 / 1850 Balance 576.96 / 740.740 -203.989 / 536.751 52.458 / 52.458 Physical Exam Narrative: EXAM NARRATIVE: General: Altered, and currently moving both her arms, HEENT: PERRLA, pupils bilaterally equal and reactive Chest: Normal vesicular breath sounds, bilateral rhonchi present all over the lung marrero, equal good air entry bilaterally CVS: S1-S2 regular, no murmurs, no tachycardia, no gallops, no rubs Abdomen: Soft, nontender, no organomegaly, bowel sounds present Neuro: No focal deficits, no facial deformity, AO x3, power 5/5 in all limbs Skin: OTHER: Erythema noted under both breasts left greater than right, some scattered petechiae on the upper chest. There is erythema with satellite lesions in both groins. Both lower extremities with erythema and warmth from knee to foot right much more prominent than the left. There is a small dime sized bruise upper outer calf. She has skin breakdown on the right heel and the left forefoot present on admission. There is a scab sore to the right great toe. There are other scabbed sores to both lower extremities. No oozing currently Urinary Catheter Management^: Garber: Cath Placed During This Visit: yes Reason for Continuing Indwelling Catheter: Accurate Measurement of Urinary Output in Critically Ill Patients Urinary Catheter Date of Insertion: 12/27/20 Urinary Catheter Time of Insertion: 00:51 Data : 12/29/20 03:42 12/29/20 03:42 Other Labs: Laboratory Results Radiological impressions Head CT 12/27/20 00:35 IMPRESSION: No acute intracranial abnormality. Radiation Dose CTDIVOL = (mGy): DLP = 1452.71 (mGy-cm) Chest CTA 12/27/20 01:34 IMPRESSION: 1. Mild patient motion. No pulmonary embolus is seen. 2. Mild emphysema Radiation Dose CTDIVOL = (mGy): DLP = 617.12 (mGy-cm) Abdomen/Pelvis CT 12/27/20 02:48 IMPRESSION: 1. No acute findings. Negative for adenopathy. 2. Fatty change is present liver. 3. The uterus is surgically absent. Radiation Dose CTDIVOL = (mGy): DLP = 1820.1 (mGy-cm) Foot CT 12/27/20 02:48 IMPRESSION: No evidence of osteomyelitis is seen. No fracture is present. Changes of cellulitis are seen. Radiation Dose CTDIVOL = (mGy): DLP = 391.66 (mGy-cm) Knee X-Ray 12/28/20 15:54 Impression: Right knee arthroplasty. Chest X-Ray 12/29/20 05:48 Impression: 1. Endotracheal tube above petty and nasogastric tube appears to be in the stomach. 2. Increase in bilateral pulmonary opacities. 3. Cardiomegaly and atherosclerosis. Pertinent Labs During Stay 12/27/20 12/27/20 12/27/20 00:46 00:46 00:46 Hemoglobin A1c Iron TIBC % Saturation Creatine Kinase 390 H* Troponin T Gen 5 ng/L 10 C-Reactive Protein 337.6 H NT-Pro-B Natriuret Pep 500 H Procalcitonin TSH Vancomycin Trough Acetaminophen < 5.0 L 12/27/20 12/27/20 12/28/20 10:41 10:41 03:29 Hemoglobin A1c Iron 7 L TIBC 238 % Saturation 2.9 L Creatine Kinase 230 H Troponin T Gen 5 ng/L C-Reactive Protein NT-Pro-B Natriuret Pep Procalcitonin 2.03 H TSH 0.58 Vancomycin Trough Acetaminophen 12/28/20 12/28/20 12/28/20 03:29 09:55 09:55 Hemoglobin A1c 6.4 H Iron TIBC % Saturation Creatine Kinase Troponin T Gen 5 ng/L C-Reactive Protein NT-Pro-B Natriuret Pep 2551 H Procalcitonin 1.67 H TSH Vancomycin Trough 18.2 H Acetaminophen 12/29/20 12/29/20 07:15 10:42 Hemoglobin A1c Iron TIBC % Saturation Creatine Kinase 91 Troponin T Gen 5 ng/L C-Reactive Protein NT-Pro-B Natriuret Pep 4628 H Procalcitonin TSH Vancomycin Trough 17.6 H Acetaminophen Micro: Microbiology 12/27/20 15:40 Blood Culture - Preliminary Blood NEGATIVE TO DATE 12/27/20 15:41 Blood Culture - Preliminary Blood NEGATIVE TO DATE 12/27/20 00:46 Blood Culture - Preliminary Blood Group g streptococcus 12/27/20 00:45 Legionella Urinary Antigen - Final Unknown Source A&P Assessment and plan (1) Streptococcal bacteremia: Status: Acute (2) Sepsis: Status: Acute (3) Acute encephalopathy: Status: Acute (4) Methamphetamine use: Looks to be a longstanding means of managing pain for this patient on review of records and has led to not being able to be managed at at least our pain clinic here. Status: Chronic (5) Cellulitis: Bilateral lower extremities, left more significant than right. Status: Acute Qualifiers: Laterality: right Site of cellulitis: extremity Site of cellulitis of extremity: lower extremity Qualified Code(s): L03.115 - Cellulitis of right lower limb (6) Hypoxemia: Not chronically on oxygen, history of prior tobacco use, CTA with some emphysematous changes but otherwise unremarkable. 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: without intermodal owner operator truck driver use Qualified Code(s): E11.618 - Type 2 diabetes mellitus with other diabetic arthropathy (8) Hypertension: Chronically on Lasix and atenolol with potassium replacement Status: Chronic Qualifiers: Hypertension type: unspecified Qualified Code(s): I10 - Essential (primary) hypertension (9) Hyperlipidemia: Chronically on fenofibrate Status: Chronic Qualifiers: Hyperlipidemia type: unspecified Qualified Code(s): E78.5 - Hyperlipidemia, unspecified (10) Chronic pain: Looks to be chronically prescribed baclofen and gabapentin Status: Chronic Qualifiers: Chronic pain type: other chronic pain Qualified Code(s): G89.29 - Other chronic pain (11) Depression with anxiety: Looks to chronically be on Effexor and BuSpar Status: Acute (12) Tinea corporis: Status: Acute (13) Gapuqet-Lqxkv-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 Can be secondary to meningitis, toxic metabolic encephalopathy from sepsis secondary to cellulitis, polysubstance abuse with UA positive for opiates and amphetamines. Lumbar puncture could not be done even after multiple attempts both by firmware software verification engineer and radiologist. Patient intubated overnight December 28, 2020. Continue sedation with propofol and fentanyl at current dose. Will start sedation vacation from tomorrow and will assess brain functions. Streptococcal bacteremia Sepsis: Secondary to cellulitis. Patient does have infiltrate on chest x-ray t mone. Antibiotics below will help with both pneumonia or cellulitis. Keep mean arterial pressure over 65. Blood cultures from day of admission now 2 out of 4 sets positive. Will request micro lab for sensitivities. Continue to follow repeat blood cultures. MRSA positive. For now continue with vancomycin, cefepime, acyclovir. Vancomycin as patient is MRSA positive. Cefepime as it has better meningeal penetration and given her IV drug abuse cannot rule out superadded Pseudomonas infection from cellulitis. Knee x-ray is negative for any signs of effusion. Because of history of deformity of the foot will consult podiatry to rule out osteomyelitis. CT scan negative for osteomyelitis on admission. Patient's blood culture come back positive will image back and cervical spine for ruling out discitis and will get formal echocardiogram to rule out infective endocarditis. If patient's mentation does not improve by tomorrow after being on appropriate antibiotics for more than 24 hours we will get MRI brain. COVID-19 PCR negative, isolation precautions removed. Continue DuoNebs and budesonide twice daily. Continue Solu-Medrol at 40 mg IV every 6 hours. Will wean off steroids from to patrick. Echocardiogram results appreciated. Patient looks mildly fluid overloaded today. Stop IV fluids. Lasix 40 mg IV stat. Will dose Lasix daily as per volume status. Strict input output charting, daily weights. Elevated troponins: We will cycle troponin for 6 hours. Most likely secondary to demand ischemia from hypoxia overnight though cannot rule out non-ST elevation NH. We will continue to trend troponin and if getting elevated further we will consult cardiology. Echocardiogram done on admission negative for regional wall motion abnormality. EKG done at baseline 2 hours have remained stable. HbA1c results appreciated. Check lipid panel Start patient on aspirin 81 mg daily, statin 80 mg daily, Lovenox 1 mg/kg body weight every 12 hourly as per renal functions. Type 2 diabetes mellitus: Insulin sliding scale at moderate dose every 6 hours as patient is n.p.o. because of her mental status. Hypertension: Goal blood pressure less than 140/90 mmHg keeping mean arterial pressure over 65. Blood pressure soft today. We will continue to monitor. Full code. NPO. Lovenox 40 daily for DVT prophylaxis. Discussed patient care in detail with her life partner who is also on her p aperwork but not DPOA Mr. Floyd. Also informed that unfortunately if there is no DPOA paperwork in system we will have to discuss her health and medical decisions with her next of kin who would be her son. As per Mr. Floyd her son's name if Odell Stanford whose phone number is [phone]. Tried multiple times to get in touch with Mr. Bain but unfortunately not able to. We will continue to try. Critically ill, guarded prognosis for now. Continue with ICU care. Attestations Medical Necessity Statement*: Patient requires further hospitalization for management of acute metabolic encephalopathy secondary to possible meningitis, strep bacteremia, unable to maintain airway so intubated overnight. Critical Care Time: The high probability of a clinically significant, sudden or life threatening deterioration of the patient's respiratory/neurological system(s) required my full and direct attention, intervention and personal management. The critical care time is as shown. 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 Diagnoses Streptococcal bacteremia R78.81; B95.5 Sepsis A41.9 Acute encephalopathy G93.40 Methamphetamine use F15.10 Cellulitis L03.115 Laterality: right Site of cellulitis: extremity Site of cellulitis of extremity: lower extremity Hypoxemia R09.02 Diabetes mellitus, type II E11.618 Diabetes mellitus complication detail: with other arthropathy Diabetes mellitus complication status: with diabetic arthropathy 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
[2020-12-29] MEDS: FUROsemide 10 mg/mL SDV 4mL 40 MG IVP (09:19)
[2020-12-29] MEDS: nystatin powder 15 gm Btl 1 APPLIC TOPICAL ×2 (09:49→18:39)
[2020-12-29 10:14] LABS: ABG PCO2 35.4 mmHg (35-45); ABG PH Result 7.44 (7.35-7.45); Alveolar-Arterial Oxygen Gradi 26.8 mmHg (5-10); Arterial Blood Gas Hematocrit 35.5 % (37-47); Base Excess ABG 0.3 mmol/L (-2.0-2.0); Blood Gas Allen Test Pos; Blood Gas Operator Identificat GD; Blood Gas Sample Site Radial, left; Blood Gas Sample Type Arterial; Blood Gas Tidal Volume 0.45; Carboxyhemoglobin 0.8 %THgb (0.4-20.1); HCO3 ABG 24.1 mmol/L (22-26); HGB O2 Sat 97.5 % (95-100); Ionized Calcium Level - ABG 1.2 mmol/L (1.1-1.4); Methemoglobin 0.7 % (0.4-1.5); Oxygen Device VENT; Potassium Level - ABG 3.3 mmol/L (3.5-5.0); Total Hemoglobin 11.6 g/dL (12-16)
[2020-12-29 10:35] LABS: Troponin 5 2HR 112.1 ng/L (0-10); Troponin 5 2HR Delta 55.1 ABS# (0-10)
[2020-12-29] MEDS: iron sucrose 200 MG in sodium chloride 0.9% (100 ml) 100 ML 220 MG IV (11:44)
[2020-12-29] MEDS: propofol 1,000 MG/100 ML INJ 20 MG IV ×2 (11:47→13:39)
[2020-12-29 12:25] LABS: Vancomycin Trough 17.6 ug/mL (10-15)
[2020-12-29 12:31] LABS: Glucose Point of Care 201 mg/dL (70-110)
--- NOTE | 2020-12-29 12:44 | ECG_ITS ---
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 Measurements Intervals [place] Rate: 89 P: 44 [place]: 140 QRS: 15 QRSD: 91 T: 32 QT: 378 QTc: 461 Interpretive Statements SINUS RHYTHM POSSIBLE LEFT ATRIAL ENLARGEMENT [-0.1mV P WAVE IN V1/V2] MODERATE T-WAVE ABNORMALITY, CONSIDER ANTERIOR ISCHEMIA [-0.1+ mV T WAVE IN V3/V4] Compared to ECG 12/29/2020 09:14:19 Possible ischemia now present T-wave abnormality still present Electronically Signed On 12-29-2020 16:05:05 FIELD [employer]ILLERY CANNONEER by Gil Ramos M.D. [email or web address]
[2020-12-29 13:00] LABS: Troponin 5 6HR 95.06 ng/L (0-10)
[2020-12-29 13:12] LABS: Troponin 5 6HR Delta 38.06 ng/L (0-12)
[2020-12-29] MEDS: acetaminophen 325 mg Tablet 650 MG PO (14:39)
[2020-12-29] MEDS: aspirin 325 mg EC Tablet PO (15:32)
[2020-12-29] MEDS: enoxaparin 60 mg/0.6 mL Syringe SUBCUT (15:32)
--- NOTE | 2020-12-29 15:56 | XRR_ITS ---
PROCEDURE INFORMATION: Exam: XR Right Foot Exam date and time: 12/29/2020 4:25 PM Age: 60 years old Clinical indication: Condition or disease; Foot deformities; Right; Additional info: Right foot ulcer TECHNIQUE: Imaging protocol: XR Right foot. Views: 3 or more views. COMPARISON: CT foot RT wo con* [id number] 12/27/2020 3:17 AM FINDINGS: Bones/joints: Severely demineralized bones. Collapse of the midfoot arch. Severe arthritis changes throughout the midfoot. There is osseous remodeling and chronic erosive changes between the tarsal bones. No acute fractures. The talus is rotated medially. Circumscribed cystic lesion involving a large part of the talar body. The fibula impacts the calcaneus with chronic remodeling changes of the calcaneal bone. The navicular bone is mostly eroded. Severe hallux valgus deformity of the 1st digit. Large bunion of the 1st digit. Soft tissues: Diffuse soft tissue swelling. XR/XR foot RT min 3V* [id number] IMPRESSION: 1. No acute fractures in the right foot. 2. Diffuse soft tissue swelling of the right lower extremity. 3. 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
--- NOTE | 2020-12-29 16:40 | ED_ITS ---
HPI - Altered Mental Status General: Source: EMS Mode of arrival: EMS Limitations: altered mental status History of Present Illness: HPI narrative: Ms. Snyder is a 60-year-old diabetic female currently intubated and history is captured from chart review. She was brought to to the emergency department via EMS for altered mental status. Exacerbation of respiratory to symptoms and is currently intubated. Blood cultures positive for strep group G, urine culture positive for E. coli. Pat ient being treated for sepsis with empiric IV antibiotics. I was consulted to evaluate the lower extremities as she has a open wound to her right foot and a Charcot deformity. Chart review shows that Charcot has been present at least since 2018 reviewing x-rays on file. There is an older set of x-rays of her right foot from 2012 which shows a plantigrade foot without Charcot involvement. [facility] ED PFSH: Medical History (Updated 12/28/20 @ 16:05 by Eduardo Pineda MD) Cervical post-laminectomy syndrome [id number]-[id number] disease-like deformity of foot right Chronic pain Depression with anxiety Diabetes mellitus, type II History of cardioversion history of SVT vs for other arrhythmia History of DVT of lower extremity post-operative Hyperlipidemia Hypertension Lumbar radiculopathy Lung cancer according to pain clinic notes, managed at [place], underwent radiation therapy in 2019 Torticollis, acquired Has had good results with Botox in the past Surgical History (Updated 12/27/20 @ 05:19 by Alejandra Valencia MD) History of arthroplasty of left knee (~1976) History of partial hysterectomy Hx of appendectomy Hx of dilation and curettage Hx of neck surgery x 2, posterior laminectomy and cervical fusion with hardware in place, limited ROM neck at baseline Hx of total knee replacement (~2010) Right Hx of tubal ligation Family History (Updated 12/27/20 @ 05:21 by Alejandra Valencia MD) Family/Other Hypertension Depression Anxiety Diabetes Father Aneurysm Mother Hypertension Brother Diabetes Sister Diabetes Social History (Updated 12/27/20 @ 05:22 by Alejandra Valencia MD) Alcohol intake: never Substance/Drug Use: current Substance/Drug use type: Methamphetamine Marital status: Additional social history: unknown if patient continues to smoke, documented to smoke previously Physical Exam Narrative: EXAM NARRATIVE: GENERAL: Patient is alert and oriented ?3 and in no acute distress. The following is a focused bilateral lower extremity exam. VASCULAR: Dorsalis pedis and posterior tibial arteries faintly palpable, palp able popliteal artery bilaterally. Capillary refill time less than 5 seconds to the distal hallux bilaterally. Calf is supple and nontender proximally and distally. Diminished growth pitting edema to the bilateral lower extremities, right greater than left. NEUROLOGICAL: Not tested. DERMATOLOGICAL: Wound to the right medial midfoot corresponding to the talar head, does not probe to bone, no tunneling or undermining. There is no purulence from the wound. Fibrogranular base with a small island of devitalized fibrosis at the 3 o'clock position. Indurated lower extremity integument. Wound measures 2.3 cm x 2.9 cm x 0.2 cm. MUSCULOSKELETAL: Nonreducible Charcot deformity of the right foot with prominent talar head medially. Spastic contracture with flexion at bilateral knee. Reducible hammertoe contracture 2 through 5 bilaterally. Urinary Catheter Management^: Garber: Cath Placed During This Visit: yes Reason for Continuing Indwelling Catheter: Accurate Measurement of Urinary Output in Critically Ill Patients Urinary Catheter Date of Insertion: 12/27/20 Urinary Catheter Time of Insertion: 00:51 Course Vital Signs: Vital signs: Vital Signs Temperature 100.5 F H 12/29/20 15:30 Pulse Rate 92 12/29/20 16:30 Respiratory Rate 14 12/29/20 17:13 Blood Pressure 108/58 12/29/20 16:30 Pulse Oximetry 94 12/29/20 17:08 MDM - Altered Mental Status Lab Data: Labs: Lab Results 12/27/20 12/27/20 12/27/20 Range/Units 00:40 00:42 00:42 WBC (4.0-10.0) 10^3/ uL RBC (4.1-5.3) 10^6/u L Hgb (11.5-15.3) g/dL Hct (37.0-47.0) % MCV (81-99) fL MCH (28.0-34.0) pg MCHC (30.0-36.0) g/dL RDW (12.1-15.1) % Plt Count (130-400) 10^3/c mm MPV (7.4-10.4) fL Lymph % (Auto) [place] % (Auto) Lymph # (Auto) [place] # (Auto) Total Counted (0-100) Atypical Lymphs % (0-5) % Absolute Neutrophi ls (1.4-6.5) 10^3/c mm Segmented Neutroph ils % Abs Segm Neuts (Ma n) (1.6-7.1) 10/cmm Band Neutrophils % Abs Band Neuts (Ma n) (0.0-1.2) 10^3/c mm Lymphocytes (Manua l) % Monocytes (Manual) % Absolute Monocytes (0.1-0.6) 10^3/c mm Eosinophils (Manua l) % Absolute Eosinophi ls (0.0-0.7) 10^3/c mm Basophils (Manual) % Absolute Basophils (0.0-0.2) 10^3/c mm Metamyelocytes % Platelet Estimate (Normal) Hypochromasia PT (12.1-14.9) SECO NDS INR (0.8-1.2) D-Dimer (0-0.59) ug/mIFE U Specimen Type Arterial Sample Site Brachial, left ABG pH 7.35 (7.35-7.45) ABG pCO2 42.4 (35-45) mmHg ABG pO2 76.0 L (80.0-100.0) mmH g ABG HCO3 23.6 (22-26) mmol/L ABG O2 Saturation 95.9 ABG Base Excess -2.0 (-2.0-2.0) mmol/ L Abdoulaye Test N/a A-a O2 Gradient 2.8 L (5-10) mmHg Hematocrit 33.4 L (37-47) % Hgb O2 Saturation 93.0 L (95-100) % Carboxyhemoglobin 2.2 (0.4-20.1) %THgb Methemoglobin 0.9 (0.4-1.5) % Total Hemoglobin 10.9 L (12-16) g/dL Sodium 130.0 L (131-143) mmol/L Potassium 3.7 (3.5-5.0) mmol/L Glucose 161.0 H (70-115) mg/dL Ionized Calcium 1.2 (1.1-1.4) mmol/L O2 Delivery Device Nc O2 Liters/Min 2.0 % Plug Wirer ID Jlg Chloride (98-107) mmol/L Carbon Dioxide (22-29) mmol/L Anion Gap (5-19) BUN (8-23) mg/dL Creatinine (0.5-0.9) mg/dL GFR Calculation (90-130) mL/min POC Glucose 160 H (70-110) mg/dL Calculated Osmolal ity (285-295) mOsm/k g Lactic Acid (0.5-2.2) mmol/L Calcium (8.5-10.5) mg/dL Magnesium (1.7-2.3) mg/dL Total Bilirubin (0.15-1.2) mg/dL AST (0-32) U/L ALT (0-33) U/L Alkaline Phosphata se (35-105) IU/L Ammonia (11-51) umol/L Creatine Kinase (26-192) U/L Troponin T Gen 5 n g/L (0-10) ng/L C-Reactive Protein (0.0-4.9) mg/L NT-Pro-B Natriuret Pep (0-125) pg/mL Total Protein (6.6-8.7) g/dL Albumin (3.5-5.2) g/dL Globulin (1.3-4.6) g/dL Urine Color Yellow (Yellow) Urine Appearance Sl hazy (CLEAR) Urine pH 5 (5-7) Ur Specific Gravit y 1.020 (1.005-1.030) Urine Protein 2+ H (Negative) Urine Glucose (UA) Norm (Normal) Urine Ketones 1+ H (Negative) Urine Blood Trace H (Negative) Urine Nitrate Negative (Negative) Urine Bilirubin 1+ H (Negative) Urine Urobilinogen 1 H (Negative) mg/dL Ur Leukocyte Maria C ase Negative (Negative) Urine RBC 0-4 H (0-2) /hpf Urine WBC 0-4 H (0-5) /hpf Ur Squamous Epith Cells 0-4 H (0-5) /hpf Amorphous Sediment 4+ /hpf Urine Bacteria Trace (NONE) /hpf Hyaline Casts 0-4 H /lpf Urine Opiates Scre en (Negative) ng/mL Acetaminophen (10-30) ug/mL Ur Barbiturates Sc reen (Negative) ng/mL Ur Phencyclidine S crn (Negative) ng/mL Ur Amphetamines Sc reen (Negative) ng/mL U Benzodiazepines Scrn (Negative) ng/mL Urine Cocaine Scre en (Negative) ng/mL U Marijuana (THC) Screen (Negative) ng/mL Ethyl Alcohol (0-10) mg/dL Nasal/Oral COVID-1 9 PCR SARS-CoV-2 Ag (Rap id) (Negative) 12/27/20 12/27/20 12/27/20 Range/Units 00:42 00:46 00:46 WBC (4.0-10.0) 10^3/ uL RBC (4.1-5.3) 10^6/u L Hgb (11.5-15.3) g/dL Hct (37.0-47.0) % MCV (81-99) fL MCH (28.0-34.0) pg MCHC (30.0-36.0) g/dL RDW (12.1-15.1) % Plt Count (130-400) 10^3/c mm MPV (7.4-10.4) fL Lymph % (Auto) [place] % (Auto) Lymph # (Auto) [place] # (Auto) Total Counted (0-100) Atypical Lymphs % (0-5) % Absolute Neutrophi ls (1.4-6.5) 10^3/c mm Segmented Neutroph ils % Abs Segm Neuts (Ma n) (1.6-7.1) 10/cmm Band Neutrophils % Abs Band Neuts (Ma n) (0.0-1.2) 10^3/c mm Lymphocytes (Manua l) % Monocytes (Manual) % Absolute Monocytes (0.1-0.6) 10^3/c mm Eosinophils (Manua l) % Absolute Eosinophi ls (0.0-0.7) 10^3/c mm Basophils (Manual) % Absolute Basophils (0.0-0.2) 10^3/c mm Metamyelocytes % Platelet Estimate (Normal) Hypochromasia PT (12.1-14.9) SECO NDS INR (0.8-1.2) D-Dimer 3.59 H (0-0.59) ug/mIFE U Specimen Type Sample Site ABG pH (7.35-7.45) ABG pCO2 (35-45) mmHg ABG pO2 (80.0-100.0) mmH g ABG HCO3 (22-26) mmol/L ABG O2 Saturation ABG Base Excess (-2.0-2.0) mmol/ L Abdoulaye Test A-a O2 Gradient (5-10) mmHg Hematocrit (37-47) % Hgb O2 Saturation (95-100) % Carboxyhemoglobin (0.4-20.1) %THgb Methemoglobin (0.4-1.5) % Total Hemoglobin (12-16) g/dL Sodium (131-143) mmol/L Potassium (3.5-5.0) mmol/L Glucose (70-115) mg/dL Ionized Calcium (1.1-1.4) mmol/L O2 Delivery Device O2 Liters/Min % Plug Wirer ID Chloride (98-107) mmol/L Carbon Dioxide (22-29) mmol/L Anion Gap (5-19) BUN (8-23) mg/dL Creatinine (0.5-0.9) mg/dL GFR Calculation (90-130) mL/min POC Glucose (70-110) mg/dL Calculated Osmolal ity (285-295) mOsm/k g Lactic Acid 1.1 (0.5-2.2) mmol/L Calcium (8.5-10.5) mg/dL Magnesium (1.7-2.3) mg/dL Total Bilirubin (0.15-1.2) mg/dL AST (0-32) U/L ALT (0-33) U/L Alkaline Phosphata se (35-105) IU/L Ammonia (11-51) umol/L Creatine Kinase (26-192) U/L Troponin T Gen 5 n g/L (0-10) ng/L C-Reactive Protein (0.0-4.9) mg/L NT-Pro-B Natriuret Pep (0-125) pg/mL Total Protein (6.6-8.7) g/dL Albumin (3.5-5.2) g/dL Globulin (1.3-4.6) g/dL Urine Color (Yellow) Urine Appearance (CLEAR) Urine pH (5-7) Ur Specific Gravit y (1.005-1.030) Urine Protein (Negative) Urine Glucose (UA) (Normal) Urine Ketones (Negative) Urine Blood (Negative) Urine Nitrate (Negative) Urine Bilirubin (Negative) Urine Urobilinogen (Negative) mg/dL Ur Leukocyte Maria C ase (Negative) Urine RBC (0-2) /hpf Urine WBC (0-5) /hpf Ur Squamous Epith Cells (0-5) /hpf Amorphous Sediment /hpf Urine Bacteria (NONE) /hpf Hyaline Casts /lpf Urine Opiates Scre en Positive H (Negative) ng/mL Acetaminophen (10-30) ug/mL Ur Barbiturates Sc reen Negative (Negative) ng/mL Ur Phencyclidine S crn Negative (Negative) ng/mL Ur Amphetamines Sc reen Positive H (Negative) ng/mL U Benzodiazepines Scrn Negative (Negative) ng/mL Urine Cocaine Scre en Negative (Negative) ng/mL U Marijuana (THC) Screen Negative (Negative) ng/mL Ethyl Alcohol (0-10) mg/dL Nasal/Oral COVID-1 9 PCR SARS-CoV-2 Ag (Rap id) (Negative) 12/27/20 12/27/20 12/27/20 Range/Units 00:46 00:46 00:46 WBC (4.0-10.0) 10^3/ uL RBC (4.1-5.3) 10^6/u L Hgb (11.5-15.3) g/dL Hct (37.0-47.0) % MCV (81-99) fL MCH (28.0-34.0) pg MCHC (30.0-36.0) g/dL RDW (12.1-15.1) % Plt Count (130-400) 10^3/c mm MPV (7.4-10.4) fL Lymph % (Auto) [place] % (Auto) Lymph # (Auto) [place] # (Auto) Total Counted (0-100) Atypical Lymphs % (0-5) % Absolute Neutrophi ls (1.4-6.5) 10^3/c mm Segmented Neutroph ils % Abs Segm Neuts (Ma n) (1.6-7.1) 10/cmm Band Neutrophils % Abs Band Neuts (Ma n) (0.0-1.2) 10^3/c mm Lymphocytes (Manua l) % Monocytes (Manual) % Absolute Monocytes (0.1-0.6) 10^3/c mm Eosinophils (Manua l) % Absolute Eosinophi ls (0.0-0.7) 10^3/c mm Basophils (Manual) % Absolute Basophils (0.0-0.2) 10^3/c mm Metamyelocytes % Platelet Estimate (Normal) Hypochromasia PT (12.1-14.9) SECO NDS INR (0.8-1.2) D-Dimer (0-0.59) ug/mIFE U Specimen Type Sample Site ABG pH (7.35-7.45) ABG pCO2 (35-45) mmHg ABG pO2 (80.0-100.0) mmH g ABG HCO3 (22-26) mmol/L ABG O2 Saturation ABG Base Excess (-2.0-2.0) mmol/ L Abdoulaye Test A-a O2 Gradient (5-10) mmHg Hematocrit (37-47) % Hgb O2 Saturation (95-100) % Carboxyhemoglobin (0.4-20.1) %THgb Methemoglobin (0.4-1.5) % Total Hemoglobin (12-16) g/dL Sodium 128 L (131-143) mmol/L Potassium 3.8 (3.5-5.0) mmol/L Glucose 141 H (70-115) mg/dL Ionized Calcium (1.1-1.4) mmol/L O2 Delivery Device O2 Liters/Min % Plug Wirer ID Chloride 95 L (98-107) mmol/L Carbon Dioxide 22 (22-29) mmol/L Anion Gap 14.8 (5-19) BUN 17 (8-23) mg/dL Creatinine 0.3 L (0.5-0.9) mg/dL GFR Calculation 226.9 H (90-130) mL/min POC Glucose (70-110) mg/dL Calculated Osmolal ity 270 L (285-295) mOsm/k g Lactic Acid (0.5-2.2) mmol/L Calcium 8.3 L (8.5-10.5) mg/dL Magnesium 1.4 L (1.7-2.3) mg/dL Total Bilirubin 0.5 (0.15-1.2) mg/dL AST 49 H (0-32) U/L ALT 38 H (0-33) U/L Alkaline Phosphata se 72 (35-105) IU/L Ammonia 44 (11-51) umol/L Creatine Kinase (26-192) U/L Troponin T Gen 5 n g/L 10 (0-10) ng/L C-Reactive Protein 337.6 H (0.0-4.9) mg/L NT-Pro-B Natriuret Pep 500 H (0-125) pg/mL Total Protein 6.1 L (6.6-8.7) g/dL Albumin 3.1 L (3.5-5.2) g/dL Globulin 3.0 (1.3-4.6) g/dL Urine Color (Yellow) Urine Appearance (CLEAR) Urine pH (5-7) Ur Specific Gravit y (1.005-1.030) Urine Protein (Negative) Urine Glucose (UA) (Normal) Urine Ketones (Negative) Urine Blood (Negative) Urine Nitrate (Negative) Urine Bilirubin (Negative) Urine Urobilinogen (Negative) mg/dL Ur Leukocyte Maria C ase (Negative) Urine RBC (0-2) /hpf Urine WBC (0-5) /hpf Ur Squamous Epith Cells (0-5) /hpf Amorphous Sediment /hpf Urine Bacteria (NONE) /hpf Hyaline Casts /lpf Urine Opiates Scre en (Negative) ng/mL Acetaminophen < 5.0 L (10-30) ug/mL Ur Barbiturates Sc reen (Negative) ng/mL Ur Phencyclidine S crn (Negative) ng/mL Ur Amphetamines Sc reen (Negative) ng/mL U Benzodiazepines Scrn (Negative) ng/mL Urine Cocaine Scre en (Negative) ng/mL U Marijuana (THC) Screen (Negative) ng/mL Ethyl Alcohol < 10 (0-10) mg/dL Nasal/Oral COVID-1 9 PCR SARS-CoV-2 Ag (Rap id) (Negative) 12/27/20 12/27/20 12/27/20 Range/Units 00:46 00:46 00:46 WBC 13.3 H (4.0-10.0) 10^3/ uL RBC 3.50 L (4.1-5.3) 10^6/u L Hgb 10.6 L (11.5-15.3) g/dL Hct 33.1 L (37.0-47.0) % MCV 94.6 (81-99) fL MCH 30.3 (28.0-34.0) pg MCHC 32.0 (30.0-36.0) g/dL RDW 14.6 (12.1-15.1) % Plt Count 201 (130-400) 10^3/c mm MPV 10.5 H (7.4-10.4) fL Lymph % (Auto) Not Reportable [place] % (Auto) Not Reportable Lymph # (Auto) Not Reportable [place] # (Auto) Not Reportable Total Counted 100 (0-100) Atypical Lymphs % 0.0 (0-5) % Absolute Neutrophi ls 11.6 H (1.4-6.5) 10^3/c mm Segmented Neutroph ils 64 % Abs Segm Neuts (Ma n) 8.5 H (1.6-7.1) 10/cmm Band Neutrophils 23.0 % Abs Band Neuts (Ma n) 3.1 H (0.0-1.2) 10^3/c mm Lymphocytes (Manua l) 7 % Monocytes (Manual) 3.0 % Absolute Monocytes 0.4 (0.1-0.6) 10^3/c mm Eosinophils (Manua l) 0 % Absolute Eosinophi ls 0.0 (0.0-0.7) 10^3/c mm Basophils (Manual) 0.0 % Absolute Basophils 0.0 (0.0-0.2) 10^3/c mm Metamyelocytes 3.0 % Platelet Estimate Normal (Normal) Hypochromasia 1+ H PT 15.70 H (12.1-14.9) SECO NDS INR 1.21 H (0.8-1.2) D-Dimer (0-0.59) ug/mIFE U Specimen Type Sample Site ABG pH (7.35-7.45) ABG pCO2 (35-45) mmHg ABG pO2 (80.0-100.0) mmH g ABG HCO3 (22-26) mmol/L ABG O2 Saturation ABG Base Excess (-2.0-2.0) mmol/ L Abdoulaye Test A-a O2 Gradient (5-10) mmHg Hematocrit (37-47) % Hgb O2 Saturation (95-100) % Carboxyhemoglobin (0.4-20.1) %THgb Methemoglobin (0.4-1.5) % Total Hemoglobin (12-16) g/dL Sodium (131-143) mmol/L Potassium (3.5-5.0) mmol/L Glucose (70-115) mg/dL Ionized Calcium (1.1-1.4) mmol/L O2 Delivery Device O2 Liters/Min % Plug Wirer ID Chloride (98-107) mmol/L Carbon Dioxide (22-29) mmol/L Anion Gap (5-19) BUN (8-23) mg/dL Creatinine (0.5-0.9) mg/dL GFR Calculation (90-130) mL/min POC Glucose (70-110) mg/dL Calculated Osmolal ity (285-295) mOsm/k g Lactic Acid (0.5-2.2) mmol/L Calcium (8.5-10.5) mg/dL Magnesium (1.7-2.3) mg/dL Total Bilirubin (0.15-1.2) mg/dL AST (0-32) U/L ALT (0-33) U/L Alkaline Phosphata se (35-105) IU/L Ammonia (11-51) umol/L Creatine Kinase 390 H* (26-192) U/L Troponin T Gen 5 n g/L (0-10) ng/L C-Reactive Protein (0.0-4.9) mg/L NT-Pro-B Natriuret Pep (0-125) pg/mL Total Protein (6.6-8.7) g/dL Albumin (3.5-5.2) g/dL Globulin (1.3-4.6) g/dL Urine Color (Yellow) Urine Appearance (CLEAR) Urine pH (5-7) Ur Specific Gravit y (1.005-1.030) Urine Protein (Negative) Urine Glucose (UA) (Normal) Urine Ketones (Negative) Urine Blood (Negative) Urine Nitrate (Negative) Urine Bilirubin (Negative) Urine Urobilinogen (Negative) mg/dL Ur Leukocyte Maria C ase (Negative) Urine RBC (0-2) /hpf Urine WBC (0-5) /hpf Ur Squamous Epith Cells (0-5) /hpf Amorphous Sediment /hpf Urine Bacteria (NONE) /hpf Hyaline Casts /lpf Urine Opiates Scre en (Negative) ng/mL Acetaminophen (10-30) ug/mL Ur Barbiturates Sc reen (Negative) ng/mL Ur Phencyclidine S crn (Negative) ng/mL Ur Amphetamines Sc reen (Negative) ng/mL U Benzodiazepines Scrn (Negative) ng/mL Urine Cocaine Scre en (Negative) ng/mL U Marijuana (THC) Screen (Negative) ng/mL Ethyl Alcohol (0-10) mg/dL Nasal/Oral COVID-1 9 PCR SARS-CoV-2 Ag (Rap id) (Negative) 12/27/20 12/27/20 Range/Units 05:25 05:25 WBC (4.0-10.0) 10^3/ uL RBC (4.1-5.3) 10^6/u L Hgb (11.5-15.3) g/dL Hct (37.0-47.0) % MCV (81-99) fL MCH (28.0-34.0) pg MCHC (30.0-36.0) g/dL RDW (12.1-15.1) % Plt Count (130-400) 10^3/c mm MPV (7.4-10.4) fL Lymph % (Auto) [place] % (Auto) Lymph # (Auto) [place] # (Auto) Total Counted (0-100) Atypical Lymphs % (0-5) % Absolute Neutrophi ls (1.4-6.5) 10^3/c mm Segmented Neutroph ils % Abs Segm Neuts (Ma n) (1.6-7.1) 10/cmm Band Neutrophils % Abs Band Neuts (Ma n) (0.0-1.2) 10^3/c mm Lymphocytes (Manua l) % Monocytes (Manual) % Absolute Monocytes (0.1-0.6) 10^3/c mm Eosinophils (Manua l) % Absolute Eosinophi ls (0.0-0.7) 10^3/c mm Basophils (Manual) % Absolute Basophils (0.0-0.2) 10^3/c mm Metamyelocytes % Platelet Estimate (Normal) Hypochromasia PT (12.1-14.9) SECO NDS INR (0.8-1.2) D-Dimer (0-0.59) ug/mIFE U Specimen Type Sample Site ABG pH (7.35-7.45) ABG pCO2 (35-45) mmHg ABG pO2 (80.0-100.0) mmH g ABG HCO3 (22-26) mmol/L ABG O2 Saturation ABG Base Excess (-2.0-2.0) mmol/ L Abdoulaye Test A-a O2 Gradient (5-10) mmHg Hematocrit (37-47) % Hgb O2 Saturation (95-100) % Carboxyhemoglobin (0.4-20.1) %THgb Methemoglobin (0.4-1.5) % Total Hemoglobin (12-16) g/dL Sodium (131-143) mmol/L Potassium (3.5-5.0) mmol/L Glucose (70-115) mg/dL Ionized Calcium (1.1-1.4) mmol/L O2 Delivery Device O2 Liters/Min % Plug Wirer ID Chloride (98-107) mmol/L Carbon Dioxide (22-29) mmol/L Anion Gap (5-19) BUN (8-23) mg/dL Creatinine (0.5-0.9) mg/dL GFR Calculation (90-130) mL/min POC Glucose (70-110) mg/dL Calculated Osmolal ity (285-295) mOsm/k g Lactic Acid (0.5-2.2) mmol/L Calcium (8.5-10.5) mg/dL Magnesium (1.7-2.3) mg/dL Total Bilirubin (0.15-1.2) mg/dL AST (0-32) U/L ALT (0-33) U/L Alkaline Phosphata se (35-105) IU/L Ammonia (11-51) umol/L Creatine Kinase (26-192) U/L Troponin T Gen 5 n g/L (0-10) ng/L C-Reactive Protein (0.0-4.9) mg/L NT-Pro-B Natriuret Pep (0-125) pg/mL Total Protein (6.6-8.7) g/dL Albumin (3.5-5.2) g/dL Globulin (1.3-4.6) g/dL Urine Color (Yellow) Urine Appearance (CLEAR) Urine pH (5-7) Ur Specific Gravit y (1.005-1.030) Urine Protein (Negative) Urine Glucose (UA) (Normal) Urine Ketones (Negative) Urine Blood (Negative) Urine Nitrate (Negative) Urine Bilirubin (Negative) Urine Urobilinogen (Negative) mg/dL Ur Leukocyte Maria C ase (Negative) Urine RBC (0-2) /hpf Urine WBC (0-5) /hpf Ur Squamous Epith Cells (0-5) /hpf Amorphous Sediment /hpf Urine Bacteria (NONE) /hpf Hyaline Casts /lpf Urine Opiates Scre en (Negative) ng/mL Acetaminophen (10-30) ug/mL Ur Barbiturates Sc reen (Negative) ng/mL Ur Phencyclidine S crn (Negative) ng/mL Ur Amphetamines Sc reen (Negative) ng/mL U Benzodiazepines Scrn (Negative) ng/mL Urine Cocaine Scre en (Negative) ng/mL U Marijuana (THC) Screen (Negative) ng/mL Ethyl Alcohol (0-10) mg/dL Nasal/Oral COVID-1 9 PCR Not detected SARS-CoV-2 Ag (Rap id) Negative (Negative) Discharge Plan Discharge Patient Disposition: Admitted As Inpatient Admit Provider: Alejandra Valencia Coding Level of Care Code ED Press Tender for Trent Crews
[2020-12-29 17:31] LABS: Troponin T (5th) Once 64 ng/L (0-10)
[2020-12-29] MEDS: propofol 1,000 MG/100 ML INJ 25.7 MG IV ×2 (17:43→20:56)
[2020-12-29 18:25] LABS: Glucose Point of Care 177 mg/dL (70-110)
--- NOTE | 2020-12-29 18:53 | PM.CONSULT ---
Providers/Reason For Consult Consulting Physican/Specialty*: Dr Garrido DPM Reason for Consult*: Cellulitis right lower extremity, diabetic ulcer, right foot, Charcot, right foot Attending Physician: Eduardo Pineda MD Primary Care Provider: Debbie Dietz DO History of Present Illness History of Present Illness Ms. Snyder is a 60-year-old diabetic female currently intubated and history is captured from chart review. She was brought to to the emergency department via EMS for altered mental status. Exacerbation of respiratory to symptoms and is currently intubated. Blood cultures positive for strep group G, urine culture positive for E. coli. Patient being treated for sepsis with empiric IV antibiotics. I was consulted to evaluate the lower extremities as she has a open wound to her right foot and a Charcot deformity. Chart review shows that Charcot has been present at least since 2018 reviewing x-rays on file. There is an older set of x-rays of her right foot from 2011 which shows a plantigrade foot without Charcot involvement. Meds/Allergies Home Medications and Allergies Home Medications Medication Instructions Recorded Confirmed Last Taken Type aspirin 325 mg tablet 325 mg PO BID 03/15/20 12/27/20 Unknown History atenolol 100 mg tablet 100 mg PO BID 03/15/20 12/27/20 Unknown History calcium carbonate 500 mg calcium 500 mg PO BID 03/15/20 12/27/20 Unknown History (1,250 mg) tablet cholecalciferol (vitamin D3) 1,250 1,250 mcg PO Q7D cap 03/15/20 12/27/20 Unknown History mcg (50,000 unit) capsule clonidine HCl 0.1 mg tablet 0.1 mg PO BID 03/15/20 12/27/20 Unknown History fenofibrate micronized 200 mg 200 mg PO BEDTIME cap 03/15/20 12/27/20 Unknown History capsule furosemide 40 mg tablet 40 mg PO DAILY 03/15/20 12/27/20 Unknown History gabapentin 300 mg capsule 300 mg PO .2-3 caps TID cap 03/15/20 12/27/20 Unknown History lisinopril 40 mg tablet 40 mg PO DAILY 03/15/20 12/27/20 Unknown History metformin 1,000 mg tablet 1,000 mg PO BID 03/15/20 12/27/20 Unknown History potassium chloride 20 mEq 20 meq PO DAILY 03/15/20 12/27/20 Unknown History tablet,extended release prochlorperazine maleate 10 mg 10 mg PO DAILY PRN tab 03/15/20 12/27/20 Unknown History tablet venlafaxine 75 mg capsule,extended 75 mg PO TID cap 03/15/20 12/27/20 Unknown History release 24 hr oxycodone-acetaminophen 10 mg-325 1 tab PO TID PRN 30 Days #75 tab 04/13/20 12/27/20 Unknown Rx mg tablet MDD 3 tizanidine 4 mg tablet 4 mg PO TID PRN #60 tab MDD 3 04/13/20 12/27/20 Unknown Rx albuterol sulfate 1 puff INHALATION QID PRN 12/27/20 12/27/20 Unknown History baclofen 20 mg PO DAILY 12/27/20 12/27/20 Unknown History buspirone 5 mg PO TID PRN 12/27/20 12/27/20 Unknown History Allergies Allergy/AdvReac Type Severity Reaction Status Date / Time adhesive tape Allergy rash Verified 04/22/20 13:16 amitriptyline Allergy Unknown Verified 04/22/20 13:16 nalbuphine [From Nubain] Allergy sick to Verified 04/22/20 13:16 stomach Sulfa (Sulfonamide Allergy Itch all Verified 04/22/20 13:16 Antibiotics) over Current Medications Current Medications Generic Name Dose Route Start Last Admin Trade Name Freq PRN Reason Stop Dose Admin Acetaminophen 650 mg 12/27/20 05:51 12/29/20 14:39 Acetaminophen 325 Mg Tablet PO 650 mg Q8H PRN Administration Mild/Mod Pain Or Temp >/= 101 Albuterol/Ipratropium 3 ml 12/27/20 06:43 12/27/20 09:29 Ipratropium-Albuterol 3 Ml Neb INHALATION 3 ml Q6H.RESPIRATORY PRN Administration SHORTNESS OF BREATH Albuterol/Ipratropium 3 ml 12/27/20 15:00 12/29/20 14:49 Ipratropium-Albuterol 3 Ml Neb INHALATION 3 ml Q6H.RESPIRATORY RNAJIT Administration Baclofen 10 mg 12/27/20 09:00 12/28/20 11:59 Baclofen 10 Mg Tablet PO Not Given TID RANJIT Budesonide 0.5 mg 12/27/20 20:00 12/29/20 08:14 Budesonide 0.5 Mg/2 Ml Neb INHALATION 0.5 mg BID.RESPIRATORY RANJIT Administration Famotidine 20 mg 12/27/20 07:00 12/29/20 18:38 Famotidine 20 Mg/2 Ml Inj IVP 20 mg Q12H RNAJIT Administration Hydromorphone HCl 1 mg 12/28/20 13:18 12/29/20 17:08 Hydromorphone 1 Mg/Ml Inj 1 Ml IVP 1 mg Q4H PRN Administration PS 6-10 Vancomycin/PEG/NADA/Lysine/Water 1,500 mg in 300 mls @ 200 mls/hr 12/27/20 11:00 12/29/20 14:27 Vancocin IV Infused Q8H RANJIT Infusion Dexmedetomidine HCl 400 mcg/ 104 mls @ 0 mls/hr 12/27/20 10:00 12/29/20 05:30 Sodium Chloride IV 0 mcg/kg/hr .Q0M RANJIT 0 mls/hr Titration Protocol Per Protocol Iron Sucrose 200 mg/ Sodium 110 mls @ 220 mls/hr 12/28/20 11:00 12/29/20 12:20 Chloride IV 01/01/21 11:29 Infused Q24H RANJIT Infusion Cefepime HCl 2,000 mg/ Sodium 50 mls @ 100 mls/hr 12/28/20 16:30 12/29/20 16:35 Chloride IV Infused Q12H RANJIT Infusion Protocol Acyclovir 1,000 mg/ Sodium 120 mls @ 120 mls/hr 12/28/20 16:30 12/29/20 18:38 Chloride IV Infused Q8H RANJIT Infusion Propofol 1,000 mg in 100 mls @ 0 mls/hr 12/29/20 06:00 12/29/20 17:43 Diprivan IV 45 mcg/kg/min .Q0M RANJIT 25.7 mls/hr Administration Protocol Per Protocol Fentanyl 1,000 mcg/ Sodium 100 mls @ 0 mls/hr 12/29/20 06:00 12/29/20 14:49 Chloride IV 45 mcg/hr .Q0M RANJIT 4.5 mls/hr Administration Protocol Per Protocol Insulin Aspart 0 unit 12/27/20 21:00 12/28/20 21:00 Insulin Aspart 100 Unit/1 Ml SUBCUT 2 unit BEDTIME RANJIT Administration Protocol Insulin Aspart 0 unit 12/28/20 00:00 12/29/20 18:38 Insulin Aspart 100 Unit/1 Ml SUBCUT 4 unit Q6H RANJIT Administration Protocol Methylprednisolone Sodium Succinate 40 mg 12/27/20 17:00 12/29/20 17:12 Methylprednisolone Sod Succ 40 Mg/Ml Inj IVP 40 mg Q6H RANJIT Administration Metoprolol Tartrate 5 mg 12/27/20 15:55 12/27/20 16:34 Metoprolol Tartrate 1 Mg/1 Ml Sdv 5 Ml IV 5 mg Q6H PRN Administration HR more than 120 bpm, SBP 110 Nystatin 1 applic 12/27/20 09:00 12/29/20 18:39 Nystatin Powder 15 Gm Btl TOPICAL 1 applic BID RANJIT Administration PFSH Acute PFSH: Medical History (Updated 12/28/20 @ 16:05 by Eduardo Pineda MD) Cervical post-laminectomy syndrome Ecjkvbj-Illvh-Vfgyy disease-like deformity of foot right Chronic pain Depression with anxiety Diabetes mellitus, type II History of cardioversion history of SVT vs for other arrhythmia History of DVT of lower extremity post-operative Hyperlipidemia Hypertension Lumbar radiculopathy Lung cancer according to pain clinic notes, managed at [facility], underwent radiation therapy in 2019 Torticollis, acquired Has had good results with Botox in the past Surgical History (Updated 12/27/20 @ 05:19 by Alejandra Valencia MD) History of arthroplasty of left knee (~1976) History of partial hysterectomy Hx of appendectomy Hx of dilation and curettage Hx of neck surgery x 2, posterior laminectomy and cervical fusion with hardware in place, limited ROM neck at baseline Hx of total knee replacement (~2010) Right Hx of tubal ligation Family History (Updated 12/27/20 @ 05:21 by Alejandra Valencia MD) Family/Other Hypertension Depression Anxiety Diabetes Father Aneurysm Mother Hypertension Brother Diabetes Sister Diabetes Social History (Updated 12/27/20 @ 05:22 by Alejandra Valencia MD) Alcohol intake: never Substance/Drug Use: current Substance/Drug use type: Methamphetamine Marital status: Additional social history: unknown if patient continues to smoke, documented to smoke previously Vitals/I&O/Wt Last Vital Signs Temp 100.5 F H 12/29/20 15:30 Pulse 92 12/29/20 16:30 Resp 14 12/29/20 17:13 BP 108/58 12/29/20 16:30 Pulse Ox 94 12/29/20 17:08 12/29/20 12/29/20 12/29/20 06:59 14:59 22:59 Intake Total 646.011 / 2386.751 1297.332 / 1297.332 264.253 / 1561.585 Output Total 850 / 1850 1250 / 1250 400 / 1650 Balance -203.989 / 536.751 47.332 / 47.332 -135.747 / -88.415 Physical Exam Narrative: EXAM NARRATIVE: GENERAL: Patient is alert and oriented ?3 and in no acute distress. The following is a focused bilateral lower extremity exam. VASCULAR: Dorsalis pedis and posterior tibial arteries faintly palpable, palpable popliteal artery bilaterally. Capillary refill time less than 5 seconds to the distal hallux bilaterally. Calf is supple and nontender proximally and distally. Diminished growth pitting edema to the bilateral lower extremities, right greater than left. NEUROLOGICAL: Not tested. DERMATOLOGICAL: Wound to the right medial midfoot corresponding to the talar head, does not probe to bone, no tunneling or undermining. There is no purulence from the wound. Fibrogranular base with a small island of devitalized fibrosis at the 3 o'clock position. Indurated lower extremity integument. Wound measures 2.3 cm x 2.9 cm x 0.2 cm. MUSCULOSKELETAL: Nonreducible Charcot deformity of the right foot with prominent talar head medially. Spastic contracture with flexion at bilateral knee. Reducible hammertoe contracture 2 through 5 bilaterally. Urinary Catheter Management^: Garber: Cath Placed During This Visit: yes Reason for Continuing Indwelling Catheter: Accurate Measurement of Urinary Output in Critically Ill Patients Urinary Catheter Date of Insertion: 12/27/20 Urinary Catheter Time of Insertion: 00:51 Data Micro: Micro: Microbiology 12/29/20 17:54 Blood Culture - Pr eliminary Blood SPE[facility]IM[facility] 12/29/20 17:57 Blood Culture - Pr eliminary Blood SPECIMEN [facility] 12/29/20 16:30 Gram Stain - Final Leg - #1 12/29/20 08:25 Gram Stain - Final Sputum - Endotrac heal Tube Aspirate 12/27/20 15:40 Blood Culture - Pr eliminary Blood NEGATIVE TO JOHN E 12/27/20 15:41 Blood Culture - Pr eliminary Blood NEGATIVE TO JOHN E A&P Assessment and plan (1) Cellulitis: Status: Acute Qualifiers: Site of cellulitis: extremity Site of cellulitis of extremity: lower extremity Laterality: right Qualified Code(s): L03.115 - Cellulitis of right lower limb (2) Methamphetamine use: Status: Chronic (3) Diabetes mellitus, type II: Status: Chronic Qualifiers: Diabetes mellitus supervisor intermediates insulin use: without halfway use Diabetes mellitus complication status: with diabetic arthropathy Diabetes mellitus complication detail: with other arthropathy Qualified Code(s): E11.618 - Type 2 diabetes mellitus with other diabetic arthropathy (4) Mzpmckf-Tcfrf-Atjtg disease-like deformity of foot: Status: Chronic (5) Uses wheelchair: Status: Chronic 60-year-old diabetic female currently intubated, cellulitis to right lower extremity with diabetic foot ulcerations at Charcot deformity. Right midfoot wound appears stable, has chronic appearance. Right foot wound appears stable. CT scan negative for osteomyelitis, x-ray also negative for osteomyelitis. Charcot arthropathy most involved at the talonavicular joint, appears to have stable appearance with remodeling. Does not have acute Charcot characteristics with imaging or clinically. Right foot is in stage III/chronic Charcot foot. I performed a 4 mm punch biopsy as a soft tissue culture sent to microbiology. Also performed 4 mm punch biopsy x2 sent to cytology to rule out malignancy as this current wound has a chronic appearance and I am unsure of the length of time this has been present. Recommend continuation of empiric IV antibiotics per chart review cellulitis to the lower extremities has been improving during hospital stay. No plans for surgical intervention at this time from a podiatry standpoint. Wound was dressed with Hydrofera Blue, sterile 4 x 4's and Kerlix. Consult Attestations Medical Necessity Statement: Diabetic foot ulceration right foot, Charcot right foot cellulitis right lower extremity Coding Level of Care Code Acute Stubber for [facility] Diagnoses Cellulitis L03.115 Site of cellulitis: extremity Site of cellulitis of extremity: lower extremity Laterality: right Methamphetamine use F15.10 Diabetes mellitus, type II E11.618 Diabetes mellitus supervisor intermediates insulin use: without supervisor intermediates use Diabetes mellitus complication status: with diabetic arthropathy Diabetes mellitus complication detail: with other arthropathy Lynabzg-Vphbn-Zcxjc disease-like deformity of foot G60.0 Uses wheelchair Z99.3
[2020-12-29] MEDS: atorvastatin 40 mg Tablet 80 MG PO (21:11)
[2020-12-29] MEDS: enoxaparin 100 mg/mL Syringe SUBCUT (21:11)
[2020-12-30] VITALS (87 sets, daily range): BP systolic 105–206; BP diastolic 60–131; PULSE 88–130; RESP 12–32; TEMP 37.4–37.7; O2SAT 89–100
[2020-12-30] MEDS: propofol 1,000 MG/100 ML INJ 25.7 MG IV ×3 (00:04→03:51)
[2020-12-30] MEDS: acyclovir 1,000 MG in sodium chloride 0.9% (100 ml) 100 ML 120 MG IV ×3 (00:38→16:24)
[2020-12-30 00:47] LABS: Glucose Point of Care 163 mg/dL (70-110)
[2020-12-30] MEDS: HYDROmorphone 1 mg/mL INJ 1 mL IVP ×6 (00:48→20:49)
[2020-12-30] MEDS: vancomycin 1,500 MG/300 ML PIGGYBACK 200 MG IV ×3 (02:20→18:36)
[2020-12-30 03:00] LABS: Glucose Point of Care 179 mg/dL (70-110)
[2020-12-30] MEDS: ipratropium-albuterol 3 mL Neb INHALATION ×4 (03:23→20:54)
[2020-12-30] MEDS: cefepime 2,000 MG in sodium chloride 0.9% (plus) 50 ML 100 MG IV ×2 (03:34→16:25)
[2020-12-30 05:18] LABS: Basophils # 0.1 10^3/uL (0.0-0.1); Basophils % 0.5 %; Eosinophils # 0.1 10^3/uL (0.0-0.8); Eosinophils % 0.4 %; Hematocrit 29.8 % (37.0-47.0); Hemoglobin 9.6 g/dL (11.5-15.3); Lymphocytes # 1.4 10^3/uL (0.8-4.8); Lymphocytes % 5.6 %; Mean Corpuscular HGB Conc 32.2 g/dL (30.0-36.0); Mean Corpuscular Hemoglobin 30.8 pg (28.0-34.0); Mean Corpuscular Volume 95.5 fL (81-99); Mean Platelet Volume 11.5 fL (7.4-10.4); Monocytes # 1.4 10^3/uL (0.2-0.9); Monocytes % 5.4 %; Neutrophils # 19.85 10^3/uL (1.8-7.7); Neutrophils % 78.1 %; Nucleated Red Blood Cells % 0 %; Platelet Count 234 10^3/cmm (130-400); Red Blood Count 3.12 10^6/uL (4.1-5.3); White Blood Count 25.4 10^3/uL (4.0-10.0)
[2020-12-30 05:40] LABS: Alanine Aminotransferase 22 U/L (0-33); Albumin Level 2.3 g/dL (3.5-5.2); Alkaline Phosphatase 112 IU/L (35-105); Aspartate Amino Transferase 22 U/L (0-32); Blood Urea Nitrogen 18 mg/dL (8-23); Calcium 8.1 mg/dL (8.5-10.5); Carbon Dioxide 22 mmol/L (22-29); Chloride 107 mmol/L (98-107); Globulin 3.9 g/dL (1.3-4.6); Glomerular Filtration Rate 226.9 mL/min (90-130); Glucose 164 mg/dL (65-115); Osmolality Calculated 302 mOsm/kg (285-295); Sodium 143 mmol/L (136-145); Total Bilirubin 0.5 mg/dL (0.15-1.2); Total Protein 6.2 g/dL (6.6-8.7)
[2020-12-30 05:48] LABS: Procalcitonin 1.04 ng/mL (0-0.5)
[2020-12-30 05:49] LABS: ABG PCO2 36.5 mmHg (35-45); ABG PH Result 7.43 (7.35-7.45); Arterial Blood Gas Hematocrit 31.3 % (37-47); Base Excess ABG 0.2 mmol/L (-2.0-2.0); Blood Gas Allen Test Pos; Blood Gas Operator Identificat JB; Blood Gas Sample Site Radial, right; Blood Gas Sample Type Arterial; Carboxyhemoglobin 0.8 %THgb (0.4-20.1); HCO3 ABG 24.3 mmol/L (22-26); HGB O2 Sat 95.9 % (95-100); Ionized Calcium Level - ABG 1.2 mmol/L (1.1-1.4); Methemoglobin 1.1 % (0.4-1.5); Oxygen Device VENT; Oxygen Saturation ABG 97.9; PO2 ABG 87.7 mmHg (80.0-100.0); Potassium Level - ABG 2.9 mmol/L (3.5-5.0); Total Hemoglobin 10.2 g/dL (12-16)
[2020-12-30 05:50] LABS: Blood Gas Tidal Volume 0.45
[2020-12-30 05:58] LABS: Anion Gap 17.1 (5-19); Potassium 3.1 mmol/L (3.5-5.1)
--- NOTE | 2020-12-30 06:00 | XR_ITS ---
WS: [id number] Portable AP semiupright chest, 12/30/2020 Clinical Data: covid Comparison: Portable chest, 12/29/2020 Findings: The endotracheal tube and nasogastric tube remain in good position. Monitor leads are on th e chest wall. Bilateral pulmonary opacities may have diminished slightly. The heart size remains the same. The patient has had an anterior cervical disc fusion and upper thoracic and cervical posterior fusion. XR/XR chest 1V portable [id number] Impression: 1. Slight improvement in pulmonary opacities. 2. No change in endotracheal tube and nasogastric tube.
[2020-12-30 06:01] LABS: Chol HDL Ratio 18.56 mg/dL (0.0-4.40); Cholesterol 167 mg/dL (0-200); HDL Cholesterol 9 mg/dL (60-100); Triglycerides 764 mg/dL (0-150); VLDL Cholestrol Calculation 153 mg/dL (0-30)
[2020-12-30] MEDS: propofol 1,000 MG/100 ML INJ 28.6 MG IV ×5 (06:01→23:36)
[2020-12-30] MEDS: famotidine 20 mg/2 mL INJ IVP ×2 (06:06→18:36)
[2020-12-30 06:08] LABS: Glucose Point of Care 191 mg/dL (70-110)
[2020-12-30 06:08] LABS: Slide Review Slide Review Perform
[2020-12-30 06:30] LABS: LDL Cholesterol Direct 36 mg/dL (0-100)
[2020-12-30] MEDS: budesonide 0.5 mg/2 mL Neb INHALATION ×2 (08:02→20:54)
[2020-12-30] MEDS: metoprolol tartrate 1 mg/1 mL SDV 5 mL 5 MG IV (08:18)
[2020-12-30 08:30] LABS: Glucose Point of Care 185 mg/dL (70-110)
[2020-12-30] MEDS: aspirin 81 mg EC Tablet PO (09:09)
[2020-12-30] MEDS: lidocaine 1% 5 ML in potassium chloride premix 100 ML 25 ML IV ×2 (09:09→13:10)
[2020-12-30] MEDS: nystatin powder 15 gm Btl 1 APPLIC TOPICAL ×2 (09:10→18:35)
[2020-12-30] MEDS: enoxaparin 100 mg/mL Syringe SUBCUT ×2 (09:10→22:11)
[2020-12-30] MEDS: FUROsemide 10 mg/mL SDV 4mL 40 MG IVP (09:10)
--- NOTE | 2020-12-30 09:29 | CT_ITS ---
WS: [id number] CTA HEAD AND NECK TECHNIQUE: Contrast enhanced CTA of the head and neck with coronal and sagittal reformatted images an d maximum intensity projection (MIP) images. NASCET criteria utilized. CLINICAL INFORMATION: AMS COMPARISON: None. DLP: 1830.[address] scans at [facility] use at least one of these dose optimization techniques: automat ed exposure control; mA and/or kV adjustment per patient size (includes targeted exams where dose is matched to clinical indication); or iterative reconstruction. FINDINGS: RIGHT: Right common carotid artery is patent. Mild calcified atheromatous disease right carotid bulb extending into the ICA. No significant right ICA stenosis. Right ICA is patent to the skull base. Mil d cavernous carotid calcification. LEFT: Left common carotid artery is patent. Calcified atheromatous plaque left carotid bulb extending into the ICA. Less than 50% left ICA stenosis. Left ICA is patent to the skull base. Mild cavernous carotid calcification. INTRACRANIAL CTA: Both vertebral arteries are patent. No significant vertebral artery stenosis. Basilar artery is paten t. Normal vascularity to the [employer] territory bilaterally. Normal vascularity to the GLENDY and MCA territories bilaterally. No evidence of high-grade proximal nacho w limiting stenosis. Distal vessels appear patent. Postoperative changes cervical spine as described on the cervical spine CT. No evidence of discitis/o steomyelitis or epidural abscess. Endotracheal tube and enteric tube. Interstitial and airspace infiltrates in the upper lobes right gr eater than left consistent with pneumonia. Benign-appearing postoperative/dependent fluid in the subc utaneous upper thoracic soft tissues. CT/CT angio headneck* [id number] IMPRESSION: 1. Less than 50% ICA stenosis bilaterally. Both ICAs are patent to the skull b ase. 2. Normal intracranial CTA. No flow-limiting stenosis. 3. Codominant and patent vertebral arteries bilaterally. 4. Cervical spine described on the cervical spine CT. No evidence of discitis/ osteomyelitis or epidural abscess. 5. Patchy infiltrates in the right greater than left upper lobe consistent wit h pneumonia.
--- NOTE | 2020-12-30 09:29 | CT_ITS ---
WS: [id number] CT CERVICAL SPINE TECHNIQUE: Noncontrast CT of the cervical spine with coronal and sagittal reformatted images. CLINICAL INFORMATION: discitis COMPARISON: None. DLP: 629.[address] scans at [facility] use at least one of these dose optimization techniques: automat ed exposure control; mA and/or kV adjustment per patient size (includes targeted exams where dose is matched to clinical indication); or iterative reconstruction. FINDINGS: Straightening of the normal cervical lordosis. Extensive postoperative changes craniocervical fusion with plate and screw fixation occipital calvarium. Posterior cervical and upper thoracic instrumentat ion with pedicle screw fixation and interconnecting rods. Anterior plate and screw fixation with bertha ectomy and interbody fusion graft at C5-C7. Slight anterolisthesis C3 on C4 and C4 on C5. Laminectomy defects throughout the cervical spine. Spinal canal has been decompressed. No high-grade central can al stenosis. Postoperative fluid in the subcutaneous neck soft tissues. No evidence of discitis or epidural abscess. Endotracheal tube. Normal C1-C2 articulation. No evidenc e of hardware loosening. Fibrosis in the lung apices. CT/CT cervical spin wo con* [id number] IMPRESSION: 1. Prior extensive postoperative changes anterior cervical fusion with dorsal posterior element instrumentation extending into the upper thoracic spine. 2. Anterior cervical fusion with corpectomy at C5-C7. Corpectomy at C6. 3. No evidence of high-grade central canal stenosis. Spinal canal has been dec ompressed. 4. No evidence of epidural abscess or discitis. 5. Slight anterolisthesis C3 on C4 and C4 on C5. 6. Endotracheal tube and enteric tube.
--- NOTE | 2020-12-30 09:29 | CT_ITS ---
WS: [id number] CT THORACIC SPINE TECHNIQUE: Noncontrast and contrast-enhanced CT of the thoracic spine with coronal and sagittal refor matted images. CLINICAL INFORMATION: discitis COMPARISON: None. DLP: 1978.[address] scans at [facility] use at least one of these dose optimization techniques: automat ed exposure control; mA and/or kV adjustment per patient size (includes targeted exams where dose is matched to clinical indication); or iterative reconstruction. FINDINGS: Mild thoracic curve. Moderate thoracic kyphosis. Postoperative changes pedicle screw fixation with do rsal connector rods in the upper thoracic spine at T2 and T3. No high-grade central canal stenosis. N o evidence of discitis or epidural abscess. Dorsal benign-appearing fluid in the dorsal subcutaneous soft tissues. Small bilateral pleural effusions with compressive atelectasis in the lung bases. Parti ally visualized patchy interstitial and airspace infiltrates in the right upper lobe and left upper l obe medially. Endotracheal tube and enteric tube. Mild central canal stenosis T9-T10, T10-T11, and moderate central canal stenosis T12-L1. Mild to mode rate bony foraminal narrowing worse at left T9-T10, bilateral T10-11, and left T12-L1. Moderate facet arthropathy lower thoracic spine.. Hardware appears in good position. No evidence of hardware loosen ing. CT/CT thoracic spin wo con* [id number] IMPRESSION: 1. Mild thoracic curve convex right. Mild thoracic kyphosis. Anterior hypertro phic changes thoracic spine. 2. No evidence of discitis or epidural abscess. 3. No high-grade central canal stenosis. Mild central canal stenosis T9-T10, T 10-T11, and moderate T12-L1. 4. Mild to moderate bony foraminal narrowing described above. 5. Small bilateral pleural effusions compressive atelectasis in the lung bases . 6. Patchy interstitial and air space infiltrates in the right greater than lef t upper lobes consistent with pneumonia.
--- NOTE | 2020-12-30 09:29 | CT_ITS ---
WS: [id number] CT LUMBAR SPINE TECHNIQUE: Noncontrast CT of the lumbar spine with coronal and sagittal reformatted images. CLINICAL INFORMATION: discitis COMPARISON: MRI lumbar spine October 21, 2020 DLP: 1667.[address] scans at [facility] use at least one of these dose optimization techniques: automat ed exposure control; mA and/or kV adjustment per patient size (includes targeted exams where dose is matched to clinical indication); or iterative reconstruction. FINDINGS: Advanced spondylitic changes lumbar spine. Mild lumbar curve. Slight anterolisthesis L4 on L5. Disc s pace narrowing throughout the lumbar spine. Anterior hypertrophic changes. Severe central canal steno sis L3-4 and L4-5 due to disc osteophyte complexes with facet arthropathy ligament flavum hypertrophy . No evidence of discitis or epidural abscess. L1-L2: Disc osteophyte complex eccentric to the right. Mild central canal stenosis. Moderate right fo raminal narrowing. Moderate facet arthropathy. L2-L3: Mild disc bulging with mild central canal stenosis. Moderate facet arthropathy. Mild bilateral bony foraminal narrowing. L3-L4: Slight retrolisthesis. Disc osteophyte complex with endplate ridging. Moderate central canal s tenosis. Moderate facet arthropathy. Mild to moderate bilateral bony foraminal narrowing. L4-L5: Slight anterolisthesis L4 on L5. Severe central canal stenosis due to central disc protrusion examination with facet arthropathy and ligamentum flavum hypertrophy. Advanced facet arthropathy. Sev ere left and moderate right foraminal narrowing. L5-S1: Mild disc bulging in combination with advanced facet arthropathy and ligamentum flavum hypertr ophy results in moderate central canal stenosis. Foramen are patent. CT/CT lumbar spine wo con* [id number] IMPRESSION: 1. Mild lumbar curve. Advanced spondylitic changes lumbar spine. 2. Severe central canal stenosis L3-L4 and L4-L5 worse L4-5. Slight anterolist hesis L4 on L5. 3. No evidence of discitis or epidural abscess. 4. Multilevel foraminal narrowing described above. 5. Advanced facet arthropathy worse at L4-5 and L5-S1.
--- NOTE | 2020-12-30 09:32 | CT_ITS ---
WS: [id number] CT CHEST, ABDOMEN, AND PELVIS TECHNIQUE: Contrast-enhanced CT of the chest, abdomen, and pelvis with coronal and sagittal reformatt ed images. CLINICAL INFORMATION: sepsis, infection source COMPARISON: CT abdomen pelvis December 27, 2020. CT chest 2 9,021 DLP: 1936.[address] scans at [facility] use at least one of these dose optimization techniques: automat ed exposure control; mA and/or kV adjustment per patient size (includes targeted exams where dose is matched to clinical indication); or iterative reconstruction. CT CHEST: Small bilateral pleural effusions are new from the CT December 27, 2020. Compressive atelectasis in t he lung bases. Patchy interstitial and airspace infiltrates in the perihilar regions and right greate r than left upper lobes consistent with pneumonia. This is new from previous. Normal caliber thoracic aorta. No mediastinal or hilar lymphadenopathy. No axillary lymphadenopathy. Endotracheal tube with tip above the petty. Enteric tube with tip in the stomach. CT ABDOMEN AND PELVIS: Hysterectomy. Diffuse fatty infiltration of the liver. Enteric tube with tip in the stomach. Adrenal glands are normal. Normal bilateral renal parenchymal enhancement. Normal spleen. Normal pancreas. Ga llbladder appears unremarkable. Normal caliber abdominal aorta. Aortic calcification. Small amount of free fluid in the pelvis. Garber catheter. Sigmoid diverticulosis. No evidence of acute diverticulitis. No evidence of high-grade small or large bowel obstruction. Mild diffuse body wall anasarca. No abdominal or pelvic lymphadenopathy. CT/CT chest abd pel w con* IMPRESSION: 1. Small bilateral pleural effusions compressive atelectasis new from previous . 2. Patchy interstitial and airspace infiltrates in the perihilar regions and b oth upper lobes right greater than left also new from December 27, 2020. Findin gs consistent with pneumonia. 3. Endotracheal tube and enteric tubes. 4. Diffuse fatty infiltration of the liver. 5. Small amount of free fluid in the pelvis. 6. Garber catheter in place. 7. Sigmoid diverticulosis. No evidence of acute diverticulitis. 8. Prior hysterectomy. 9. No acute abdominal or pelvic findings.
--- NOTE | 2020-12-30 09:52 | PM.PN ---
Subjective Subjective: Interval history: No acute events overnight. T-max in last 24 hours 99.9 Fahrenheit . Overnight patient had occasional bursts of heart rate going into 110 bpm, sinus tachycardia with blood pressures of 190 systolics which were settled down after getting as needed IV Dilaudid. Currently patient is on sedation with propofol and fentanyl. Vitals/I&O/Wt Last Vital Signs Temp 99.9 F H 12/30/20 06:00 Pulse 102 H 12/30/20 08:11 Resp 20 H 12/30/20 08:08 BP 129/73 12/30/20 06:00 Pulse Ox 95 12/30/20 08:02 12/29/20 12/30/20 12/30/20 22:59 06:59 14:59 Intake Total 646.921 / 1944.253 808.359 / 2752.612 149.094 / 149.094 Output Total 400 / 1650 750 / 2400 Balance 246.921 / 294.253 58.359 / 352.612 149.094 / 149.094 Physical Exam Narrative: EXAM NARRATIVE: General: Altered, and currently moving both her arms, HEENT: PERRLA, pupils bilaterally equal and reactive Chest: Normal vesicular breath sounds, bilateral rhonchi present all over the lung marrero, equal good air entry bilaterally CVS: S1-S2 regular, no murmurs, no tachycardia, no gallops, no rubs Abdomen: Soft, nontender, no organomegaly, bowel sounds present Neuro: No focal deficits, no facial deformity, AO x3, power 5/5 in all limbs Skin: OTHER: Erythema noted under both breasts left greater than right, some scattered petechiae on the upper chest. There is erythema with satellite lesions in both groins. Both lower extremities with erythema and warmth from knee to foot right much more prominent than the left. There is a small dime sized bruise upper outer calf. She has skin breakdown on the right heel and the left forefoot present on admission. There is a scab sore to the right great toe. There are other scabbed sores to both lower extremities. No oozing currently Urinary Catheter Management^: Garber: Cath Placed During This Visit: yes Reason for Continuing Indwelling Catheter: Accurate Measurement of Urinary Output in Critically Ill Patients Urinary Catheter Date of Insertion: 12/27/20 Urinary Catheter Time of Insertion: 00:51 Data : 12/30/20 04:22 12/30/20 04:22 Other Labs: Pertinent Labs During Stay 12/27/20 12/27/20 12/27/20 00:46 00:46 00:46 Hemoglobin A1c Iron TIBC % Saturation Creatine Kinase 390 H* Troponin T Gen 5 ng/L 10 C-Reactive Protein 337.6 H NT-Pro-B Natriuret Pep 500 H Triglycerides Cholesterol HDL Cholesterol Procalcitonin TSH Vancomycin Trough Acetaminophen < 5.0 L 12/27/20 12/27/20 12/28/20 10:41 10:41 03:29 Hemoglobin A1c Iron 7 L TIBC 238 % Saturation 2.9 L Creatine Kinase 230 H Troponin T Gen 5 ng/L C-Reactive Protein NT-Pro-B Natriuret Pep Triglycerides Cholesterol HDL Cholesterol Procalcitonin 2.03 H TSH 0.58 Vancomycin Trough Acetaminophen 12/28/20 12/28/20 12/28/20 03:29 09:55 09:55 Hemoglobin A1c 6.4 H Iron TIBC % Saturation Creatine Kinase Troponin T Gen 5 ng/L C-Reactive Protein NT-Pro-B Natriuret Pep 2551 H Triglycerides Cholesterol HDL Cholesterol Procalcitonin 1.67 H TSH Vancomycin Trough 18.2 H Acetaminophen 12/29/20 12/29/20 12/29/20 07:15 10:42 16:00 Hemoglobin A1c Iron TIBC % Saturation Creatine Kinase 91 Troponin T Gen 5 ng/L Cancelled C-Reactive Protein NT-Pro-B Natriuret Pep 4628 H Triglycerides Cholesterol HDL Cholesterol Procalcitonin TSH Vancomycin Trough 17.6 H Acetaminophen 12/29/20 12/30/20 16:50 04:22 Hemoglobin A1c Iron TIBC % Saturation Creatine Kinase Troponin T Gen 5 ng/L 64 H C-Reactive Protein NT-Pro-B Natriuret Pep Triglycerides 764 H Cholesterol 167 HDL Cholesterol 9 L Procalcitonin 1.04 H TSH Vancomycin Trough Acetaminophen Micro: Microbiology 12/29/20 08:25 Gram Stain - Final Sputum - Endotracheal Tube Aspirate Sputum Culture - Preliminary Staphylococcus aureus 12/29/20 16:30 Gram Stain - Final Leg - #1 Wound Culture - Preliminary 12/29/20 17:54 Blood Culture - Preliminary Blood SPECIMEN COLLECTED 12/29/20 17:57 Blood Culture - Preliminary Blood SPECIMEN COLLECTED Microbiology 12/29/20 08:25 Sputum - Endotracheal Tube Aspirate Gram Stain - Final 12/29/20 08:25 Sputum - Endotracheal Tube Aspirate Sputum Culture - Preliminary Staphylococcus aureus 12/29/20 16:30 Leg - #1 Gram Stain - Final 12/29/20 16:30 Leg - #1 Wound Culture - Preliminary 12/29/20 17:54 Blood Blood Culture - Preliminary SPECIMEN COLLECTED 12/29/20 17:57 Blood Blood Culture - Preliminary SPECIMEN COLLECTED 12/27/20 15:40 Blood Blood Culture - Preliminary NEGATIVE TO DATE 12/27/20 15:41 Blood Blood Culture - Preliminary NEGATIVE TO DATE 12/27/20 00:46 Blood Blood Culture - Preliminary Group g streptococcus 12/27/20 00:45 Unknown Source Legionella Urinary Antigen - Final 12/27/20 01:28 Blood Blood Culture - Preliminary NEGATIVE TO DATE A&P Assessment and plan (1) Streptococcal bacteremia: Status: Acute (2) Sepsis: Status: Acute (3) Acute encephalopathy: Status: Acute (4) Methamphetamine use: Looks to be a longstanding means of managing pain for this patient on review of records and has led to not being able to be managed at at least our pain clinic here. Status: Chronic (5) Cellulitis: Bilateral lower extremities, left more significant than right. Status: Acute Qualifiers: Site of cellulitis: extremity Site of cellulitis of extremity: lower extremity Laterality: right Qualified Code(s): L03.115 - Cellulitis of right lower limb (6) Hypoxemia: Not chronically on oxygen, history of prior tobacco use, CTA with some emphysematous changes but otherwise unremarkable. Status: Acute (7) Diabetes mellitus, type II: Looks to chronically only be on Metformin, currently with hyperglycemia Status: Chronic Qualifiers: Diabetes mellitus local intermodal truck driver insulin use: without local intermodal truck driver use Diabetes mellitus complication status: with diabetic arthropathy Diabetes mellitus complication detail: with other arthropathy Qualified Code(s): E11.618 - Type 2 diabetes mellitus with other diabetic arthropathy (8) Hypertension: Chronically on Lasix and atenolol with potassium replacement Status: Chronic Qualifiers: Hypertension type: unspecified Qualified Code(s): I10 - Essential (primary) hypertension (9) Hyperlipidemia: Chronically on fenofibrate Status: Chronic Qualifiers: Hyperlipidemia type: unspecified Qualified Code(s): E78.5 - Hyperlipidemia, unspecified (10) Chronic pain: Looks to be chronically prescribed baclofen and gabapentin Status: Chronic Qualifiers: Chronic pain type: other chronic pain Qualified Code(s): G89.29 - Other chronic pain (11) Depression with anxiety: Looks to chronically be on Effexor and BuSpar Status: Acute (12) Tinea corporis: Status: Acute (13) 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 Patient's heart rate in and blood pressure in between going up as high as 120 bpm with systolic blood pressure over 90s which get settled after IV Dilaudid. Start patient on home dose of baclofen to avoid withdrawal. Still cannot rule out meningitis. Lumbar puncture could not be done or been after multiple attempts from activities manager and radiologist. Patient intubated overnight December 28, 2020. Continue sedation with propofol and fentanyl at current dose. Will start sedation vacation from tomorrow and will assess brain functions. Streptococcal bacteremia Sepsis: Secondary to cellulitis and pneumonia: Keep mean arterial pressure over 65. Blood cultures from day of admission now 2 out of 4 sets positive for group B strep. Repeat blood culture still primary. Sensitivities awaited. MRSA positive. For now continue with vancomycin, cefepime, acyclovir. Vancomycin as patient is MRSA positive. Cefepime as it has better meningeal penetration and given her IV drug abuse cannot rule out superadded Pseudomonas infection from cellulitis. Knee x-ray is negative for any signs of effusion. Because of history of deformity of the foot will consult podiatry to rule out osteomyelitis. CT scan negative for osteomyelitis on admission. We will check CTA head and neck for further assessment of altered mental status and acute metabolic encephalopathy unfortunately cannot do the MRI as patient is intubated at present. We will get CT abdomen pelvis, chest and CT spine and cervical spine to rule out discitis. COVID-19 PCR negative, isolation precautions removed. Appreciate Dr. Garrido's input and help. We will consult infectious disease as patient white count is trending up even on broad-spectrum antibiotic and continues to have spikes of fever. It is quite possible patient's white count is going up because of ongoing steroids and fever is most likely from withdrawal from opiates. Continue DuoNebs and budesonide twice daily. Wean Solu-Medrol to 40 mg IV every 12. Echocardiogram results appreciated. With IV Lasix. Dose Lasix daily. Patient overall 1.5 L negative since admission. Strict input output charting, daily weights. Elevated troponins: We will cycle troponin for 6 hours. Most likely secondary to demand ischemia from hypoxia overnight though cannot rule out non-ST elevation DE. For now continue with aspirin 81 mg daily, Lovenox full dose. Will most likely need Lovenox for overall 5 days. Day 2 today. Stop statins given the lipid panel. Start patient on home dose of fenofibrate. Hypertriglyceridemia: Lipid panel results appreciated. Stop statins. Start home dose of fenofibrate Type 2 diabetes mellitus: Insulin sliding scale at moderate dose every 6 hours as patient is n.p.o. because of her mental status. Hypertension: Goal blood pressure less than 140/90 mmHg keeping mean arterial pressure over 65. Blood pressure soft today. We will continue to monitor. Full code. Continue n.p.o. for now. Full dose Lovenox will also help with DVT prophylaxis. Patient's care discussed in detail with her son Odell Stanford on phone. Mr. Bain verbalizes understanding and has agreed to act the DPOA at he is the only next of kin available. Discussed that unfortunately patient is severely altered for last 4 days which could be because of multiple reasons. He verbalizes understanding. Critically ill, guarded prognosis for now. Continue with ICU care. Attestations Medical Necessity Statement*: Patient requires further hospitalization as she is ventilator dependent, acute metabolic encephalopathy most likely secondary to opiate withdrawal, group G strep bacteremia and ongoing pneumonia and cellulitis. Critical Care Time: The high probability of a clinically significant, sudden or life threatening deterioration of the patient's pulmonary, neuro, ID system(s) required my full and direct attention, intervention and personal management. The critical care time is as shown. This time is in addition to time spent performing any reported procedures but includes the following: [x] Data and vital sign review and interpretation [x] Patient assessment, examination and intervention [x] Documentation [x] Medication orders and management Critical Care Time (min): 90 Coding Level of Care Code Acute Corporate Aircraft Mechanic for [facility] Fwd Diagnoses Streptococcal bacteremia R78.81; B95.5 Sepsis A41.9 Acute encephalopathy G93.40 Methamphetamine use F15.10 Cellulitis L03.115 Site of cellulitis: extremity Site of cellulitis of extremity: lower extremity Laterality: right Hypoxemia R09.02 Diabetes mellitus, type II E11.618 Diabetes mellitus intermediate insulin use: without intermediate use Diabetes mellitus complication status: with diabetic arthropathy Diabetes mellitus complication detail: with other arthropathy Hypertension I10 Hypertension type: unspecified Hyperlipidemia E78.5 Hyperlipidemia type: unspecified Chronic pain G89.29 Chronic pain type: other chronic pain Depression with anxiety F41.8 Tinea corporis B35.4 [id number] disease-like deformity of foot G60.0
--- NOTE | 2020-12-30 10:05 | PC.SOCIAL ---
Pg 2 IMM. Explained to pt's son, Odell, via phone, Pg 2 IMM. No questions voiced. Provided pt a copy. Signed, dated, & timed a copy & placed in chart.
--- NOTE | 2020-12-30 10:28 | PC.NURSE ---
Tried to help pt's RN out,after noticing propofol bottle empty, by pulling and scanning bottle of propofol, pt RN had already scanned and hung one upon my return to room. I undone my scan and returned my bottle of propofol.
[2020-12-30 11:29] LABS: Glucose Point of Care 180 mg/dL (70-110)
--- NOTE | 2020-12-30 13:21 | PC.CHAP ---
Pastoral Care Encounter/Spiritual Assessment Type of Contact [] Declined women's soccer coach visit [xx] Patient/Family/Request visit [] Outpatient visit [] Follow-up visit [] Physician referral [] Code/Alert [] Routine visit [] Staff referral [] Actively dying [] Patient sleeping [] Family support [] [] Out of room [] Palliative care [] [] Receiving care in room [] Pre-surgical visit [] Trauma [] Long length of stay [] ICU visit [] Other: Relational/Emotional Strength [] Patient feels connected with others/family/visitors/staff [] Distress [] Loneliness/isolation [] Abandonment Spirituality of Patient [] Person of Amee [] Attends Episcopal of their Amee [] Believes in Prayer [] Reads Bible or Orthodox materials [] There are Spiritual issues to be addressed Epidemiologist Interventions [] Prayer [] Active listening [] Non-anxious presence [] Spiritual/emotional support [] Crisis/trauma care [] Spiritual counseling [] Bereavement support [] Provided bereavement packet [] Provided Bible/devotional materials [] Provided toy/stuffed animal, coloring book to patient or family member [] Provided Communion [] Anointing/[place] [] Salvation [] Completed spiritual assessment [] Other: Impact on Illness or Injury [] Angry [] Fearful [] Anxious [] Often cries [] Exhaustion [] Unable to work [] Unable to attend bahai [] Unable to walk/stand [] Unable to read [] Unable to drive [] Unable to eat/drink [] Unable to sleep [] Unable to be with family [xx] Patient intubated [x] Other: Patient on ventilator Summary Family requested daily prayer for patient. Due to isolation, women's soccer coach prayed outside of room. Spiritual assessment imppossible to complete. Time spent with patient 4 minutes
[2020-12-30] MEDS: iron sucrose 200 MG in sodium chloride 0.9% (100 ml) 100 ML 220 MG IV (13:30)
[2020-12-30] MEDS: iohexol 350 mg/mL 100 mL Btl IV (14:27)
[2020-12-30 15:35] LABS: Hepatitis A Antibody IgM Non-Reactive (Nonreactive); Hepatitis B Core AB, Total Non-Reactive (Nonreactive); Hepatitis B Surface AB 5.1 (0-8.5); Hepatitis B Surface Antigen Non-Reactive (Nonreactive); Hepatitis C Virus Antibody Non-Reactive (Nonreactive)
[2020-12-30] MEDS: propofol 1,000 MG/100 ML INJ 17.1 MG IV (16:24)
[2020-12-30 18:29] LABS: Glucose Point of Care 190 mg/dL (70-110)
--- NOTE | 2020-12-30 19:22 | PC.NURSE ---
[address] Pineda. Reported elevated blood pressure and heart rate, gave PRN metoporolol. Reported potassium level. Orders for IV KCL replacement. Discussed plan of care. Orders for IV lasix. [address] Pineda to report elevated heart rate and blood pressure. Orders to give scheduled Dilaudid early. [address] with RT. No issues [address] Pineda. Orders to turn down sedation to assess mental and respiratory status. [address] Pineda to report elevated blood pressure and heart rate and low O2 sat. Orders to turn sedation back on. Reported positive MRSA in sputum.
[2020-12-30 20:07] LABS: HIV 1 & 2 Antibody Non-Reactive (Non-Reactiv); HIV 1 & 2 Antigen Non-Reactive (Non-Reactiv)
[2020-12-30 20:50] LABS: Glucose Point of Care 181 mg/dL (70-110)
--- NOTE | 2020-12-30 21:17 | PM.CONSULT ---
Providers/Reason For Consult Consulting Physican/Specialty*: Madelyn Winters MD/Infectious Disease Reason for Consult*: Persistent fevers, Worsening White count Attending Physician: Eduardo Pineda MD Primary Care Provider: Debbie Dietz DO History of Present Illness History of Present Illness Polina Snyder is 60-year-old lady with a past medical history of postlaminectomy syndrome, Gzawrsa-Jshyn-Jsgra disease deformity of the foot, depression, diabetes mellitus type 2, history of SVT status post cardioversion, history of DVT, hyperlipidemia, hypertension, lung cancer treated at [facility] with radiation, unknown if received chemotherapy in 2019. She is currently admitted here since December 27, 2020 after presenting to the hospital with altered mental status. She was last known to be at her baseline approximately 12 hours prior to admission. Her GCS was 9 upon admission, she was able to speak a few short words but did not respond appropriately in conversation. CT of the head was unremarkable, emphysematous changes were seen on CTA with no gross evidence of PE. She is also noted to have lymphedema related skin changes in the right lower extremity and there was concern for cellulitis upon examination. CT of the abdomen pelvis did not reveal any acute findings. Leukocytosis was at upon admission, had an elevated D-dimer hyperglycemia and hyponatremia. She has been persistently febrile during the course of admission, T-max currently at 101 Fahrenheit. Urine drug screen has been positive for opiates and amphetamines. Previously used to follow with the pain clinic but appears to have broken terms of her narcotic contract. She was initially admitted with overall impression that of polysubstance abuse and possible withdrawal. Blood culture subsequently resulted with gram-positive cocci in pairs and chains, identified as group G Streptococcus, 1 and 4 culture from day of admission. Repeat blood cultures have been negative to date. No other detailed history is available from patient due to altered mental status at this present time. Per discussion with her life partner it appears she had been complaining of headaches and nausea for 3 days prior to admission. An LP was unable to be completed in spite of multiple attempts as it yielded in a dry tap, limited by body habitus. on 12/29/20 patient needed to be intubated due to worsening mental status and accessory muscle use. Infectious disease consulted due to persistent daily fevers, streptococcus bacteremia. Current abx course : Zosyn--> Cefepime, vancomycin and Acyclovir Review of Systems General: Reports: ROS unobtainable due to endotracheal tube, ROS unobtainable due to medical condition and ROS unobtainable due to mental status Meds/Allergies Home Medications and Allergies Home Medications Medication Instructions Recorded Confirmed Last Taken Type aspirin 325 mg tablet 325 mg PO BID 03/15/20 12/27/20 Unknown History atenolol 100 mg tablet 100 mg PO BID 03/15/20 12/27/20 Unknown History calcium carbonate 500 mg calcium 500 mg PO BID 03/15/20 12/27/20 Unknown History (1,250 mg) tablet cholecalciferol (vitamin D3) 1,250 1,250 mcg PO Q7D cap 03/15/20 12/27/20 Unknown History mcg (50,000 unit) capsule clonidine HCl 0.1 mg tablet 0.1 mg PO BID 03/15/20 12/27/20 Unknown History fenofibrate micronized 200 mg 200 mg PO BEDTIME cap 03/15/20 12/27/20 Unknown History capsule furosemide 40 mg tablet 40 mg PO DAILY 03/15/20 12/27/20 Unknown History gabapentin 300 mg capsule 300 mg PO .2-3 caps TID cap 03/15/20 12/27/20 Unknown History lisinopril 40 mg tablet 40 mg PO DAILY 03/15/20 12/27/20 Unknown History metformin 1,000 mg tablet 1,000 mg PO BID 03/15/20 12/27/20 Unknown History potassium chloride 20 mEq 20 meq PO DAILY 03/15/20 12/27/20 Unknown History tablet,extended release prochlorperazine maleate 10 mg 10 mg PO DAILY PRN tab 03/15/20 12/27/20 Unknown History tablet venlafaxine 75 mg capsule,extended 75 mg PO TID cap 03/15/20 12/27/20 Unknown History release 24 hr oxycodone-acetaminophen 10 mg-325 1 tab PO TID PRN 30 Days #75 tab 04/13/20 12/27/20 Unknown Rx mg tablet MDD 3 tizanidine 4 mg tablet 4 mg PO TID PRN #60 tab MDD 3 04/13/20 12/27/20 Unknown Rx albuterol sulfate 1 puff INHALATION QID PRN 12/27/20 12/27/20 Unknown History baclofen 20 mg PO DAILY 12/27/20 12/27/20 Unknown History buspirone 5 mg PO TID PRN 12/27/20 12/27/20 Unknown History Allergies Allergy/AdvReac Type Severity Reaction Status Date / Time adhesive tape Allergy rash Verified 04/22/20 13:16 amitriptyline Allergy Unknown Verified 04/22/20 13:16 [id number] [From Nubain] Allergy sick to Verified 04/22/20 13:16 stomach Sulfa (Sulfonamide Allergy Itch all Verified 04/22/20 13:16 Antibiotics) over Current Medications Current Medications Generic Name Dose Route Start Last Admin Trade Name Freq PRN Reason Stop Dose Admin Acetaminophen 650 mg 12/27/20 05:51 12/29/20 14:39 Acetaminophen 325 Mg Tablet PO 650 mg Q8H PRN Administration Mild/Mod Pain Or Temp >/= 101 Albuterol/Ipratropium 3 ml 12/27/20 06:43 12/27/20 09:29 Ipratropium-Albuterol 3 Ml Neb INHALATION 3 ml Q6H.RESPIRATORY PRN Administration SHORTNESS OF BREATH Albuterol/Ipratropium 3 ml 12/27/20 15:00 12/30/20 20:54 Ipratropium-Albuterol 3 Ml Neb INHALATION 3 ml Q6H.RESPIRATORY RANJIT Administration Aspirin 81 mg 12/30/20 09:00 12/30/20 09:09 Aspirin 81 Mg Ec Tablet PO 81 mg DAILY RANJIT Administration Baclofen 10 mg 12/27/20 09:00 12/28/20 11:59 Baclofen 10 Mg Tablet PO Not Given TID RANJIT Budesonide 0.5 mg 12/27/20 20:00 12/30/20 20:54 Budesonide 0.5 Mg/2 Ml Neb INHALATION 0.5 mg BID.RESPIRATORY RANJIT Administration Enoxaparin Sodium 100 mg 12/29/20 22:00 12/30/20 09:10 Enoxaparin 100 Mg/Ml Syringe 1 mg/kg (100 mg) 100 mg SUBCUT Administration Q12H RANJIT Famotidine 20 mg 12/27/20 07:00 12/30/20 18:36 Famotidine 20 Mg/2 Ml Inj IVP 20 mg Q12H RANJIT Administration Hydromorphone HCl 1 mg 12/30/20 15:00 12/30/20 20:49 Hydromorphone 1 Mg/Ml Inj 1 Ml IVP 1 mg Q6H RANJIT Administration Vancomycin/PEG/NADA/Lysine/Water 1,500 mg in 300 mls @ 200 mls/hr 12/27/20 11:00 12/30/20 18:36 Vancocin IV 200 mls/hr Q8H RANJIT Administration Dexmedetomidine HCl 400 mcg/ 104 mls @ 0 mls/hr 12/27/20 10:00 12/29/20 05:30 Sodium Chloride IV 0 mcg/kg/hr .Q0M RANJIT 0 mls/hr Titration Protocol Per Protocol Iron Sucrose 200 mg/ Sodium 110 mls @ 220 mls/hr 12/28/20 11:00 12/30/20 14:00 Chloride IV 01/01/21 11:29 Infused Q24H RANJIT Infusion Cefepime HCl 2,000 mg/ Sodium 50 mls @ 100 mls/hr 12/28/20 16:30 12/30/20 16:55 Chloride IV Infused Q12H RANJIT Infusion Protocol Propofol 1,000 mg in 100 mls @ 0 mls/hr 12/29/20 06:00 12/30/20 20:48 Diprivan IV 50 mcg/kg/min .Q0M RANJIT 28.6 mls/hr Administration Protocol Per Protocol Fentanyl 1,000 mcg/ Sodium 100 mls @ 0 mls/hr 12/29/20 06:00 12/30/20 20:50 Chloride IV 100 mcg/hr .Q0M RANJIT 10 mls/hr Administration Protocol Per Protocol Insulin Aspart 0 unit 12/27/20 21:00 12/30/20 20:56 Insulin Aspart 100 Unit/1 Ml SUBCUT 3 unit BEDTIME RANJIT Administration Protocol Insulin Aspart 0 unit 12/28/20 00:00 12/30/20 18:34 Insulin Aspart 100 Unit/1 Ml SUBCUT 6 unit Q6H RANJIT Administration Protocol Methylprednisolone Sodium Succinate 40 mg 12/30/20 16:00 12/30/20 16:24 Methylprednisolone Sod Succ 40 Mg/Ml Inj IVP 40 mg Q12H RANJIT Administration Metoprolol Tartrate 5 mg 12/27/20 15:55 12/30/20 08:18 Metoprolol Tartrate 1 Mg/1 Ml Sdv 5 Ml IV 5 mg Q6H PRN Administration HR more than 120 bpm, SBP 110 Nystatin 1 applic 02/09/21 09:00 12/30/20 18:35 Nystatin Powder 15 Gm Btl TOPICAL 1 applic BID RANJIT Administration PFSH Acute PFSH: Medical History Cervical post-laminectomy syndrome Xeskxli-Ombws-Axduq disease-like deformity of foot right Chronic pain Depression with anxiety Diabetes mellitus, type II History of cardioversion history of SVT vs for other arrhythmia History of DVT of lower extremity post-operative Hyperlipidemia Hypertension Lumbar radiculopathy Lung cancer according to pain clinic notes, managed at [facility], underwent radiation therapy in 2019 Torticollis, acquired Has had good results with Botox in the past Surgical History History of arthroplasty of left knee (~1976) History of partial hysterectomy Hx of appendectomy Hx of dilation and curettage Hx of neck surgery x 2, posterior laminectomy and cervical fusion with hardware in place, limited ROM neck at baseline Hx of total knee replacement (~2010) Right Hx of tubal ligation Family History Family/Other Hypertension Depression Anxiety Diabetes Father Aneurysm Mother Hypertension Brother Diabetes Sister Diabetes Social History Alcohol intake: never Substance/Drug Use: current Substance/Drug use type: Methamphetamine Marital status: Additional social history: unknown if patient continues to smoke, documented to smoke previously Vitals/I&O/Wt Last Vital Signs Temp 99.3 F 12/30/20 15:00 Pulse 95 12/30/20 20:55 Resp 12 12/30/20 20:55 BP 173/94 12/30/20 18:45 Pulse Ox 91 12/30/20 20:55 12/30/20 12/30/20 12/30/20 06:59 14:59 22:59 Intake Total 808.359 / 2752.612 815.614 / 815.614 326.288 / 1141.902 Output Total 750 / 2400 1750 / 1750 450 / 2200 Balance 58.359 / 352.612 -934.386 / -934.386 -123.712 / -1058.098 Physical Exam Narrative: EXAM NARRATIVE: GEN: Intubated, sedated HEENT: ETT in place, no nicky purulence, oral thrush noted CVS: S1S2 N, tachycardia+ RS: CTA B/L, crackles over right lung base Abd: Soft, nt/nd , bs+ GROUP PROGRAM MANAGER: Unable to asess EXT: RLE with chronic lymphedema associated skin changes, changes appear to be related to stasis dermatitis, at this time cellulitis appears to be improving, Right foot with dressing in place, blood soaking noted. RIght knee s/p replacement, no gross swelling noted at any joints Urinary Catheter Management^: Garber: Cath Placed During This Visit: yes Reason for Continuing Indwelling Catheter: Accurate Measurement of Urinary Output in Critically Ill Patients Urinary Catheter Date of Insertion: 12/27/20 Urinary Catheter Time of Insertion: 00:51 Data Micro: Micro: Microbiology 12/29/20 17:54 Blood Culture - Pr eliminary Blood NEGATIVE TO JOHN E 12/29/20 17:57 Blood Culture - Pr eliminary Blood NEGATIVE TO JOHN E 12/29/20 08:25 Gram Stain - Final Sputum - Endotrac heal Tube Aspirate Sputum Culture - P reliminary Staphylococcus aureus 12/29/20 16:30 Gram Stain - Final Leg - #1 Wound Culture - Pr eliminary Microbiology 12/29/20 17:54 Blood Blood Culture - Preliminary NEGATIVE TO DATE 12/29/20 17:57 Blood Blood Culture - Preliminary NEGATIVE TO DATE 12/29/20 08:25 Sputum - Endotracheal Tube Aspirate Gram Stain - Final 12/29/20 08:25 Sputum - Endotracheal Tube Aspirate Sputum Culture - Preliminary Staphylococcus aureus 12/29/20 16:30 Leg - #1 Gram Stain - Final 12/29/20 16:30 Leg - #1 Wound Culture - Preliminary 12/27/20 15:40 Blood Blood Culture - Preliminary NEGATIVE TO DATE 12/27/20 15:41 Blood Blood Culture - Preliminary NEGATIVE TO DATE 12/27/20 00:46 Blood Blood Culture - Preliminary Group g streptococcus 12/27/20 00:45 Unknown Source Legionella Urinary Antigen - Final 12/27/20 01:28 Blood Blood Culture - Preliminary NEGATIVE TO DATE Other Data: Attestation for Other Data: I personally reviewed and interpreted the following: Other data: Laboratory Results WBC 26.5 10^3/uL (4.0 -10.0) H 12/31/20 10:40 RBC 3.10 10^6/uL (4.1 -5.3) L 12/31/20 10:40 Hgb 9.4 g/dL (11.5-15 .3) L 12/31/20 10:40 Hct 29.3 % (37.0-47.0 ) L 12/31/20 10:40 MCV 94.5 fL (81-99) 12/31/20 10:40 MCH 30.3 pg (28.0-34. 0) 12/31/20 10:40 MCHC 32.1 g/dL (30.0-3 6.0) 12/31/20 10:40 RDW 16.6 % (12.1-15.1 ) H 12/31/20 10:40 Plt Count 306 10^3/cmm (130 -400) 12/31/20 10:40 MPV 11.0 fL (7.4-10.4 ) H 12/31/20 10:40 Neut % (Auto) 89.6 % 12/31/20 10:40 Lymph % (Auto) 5.1 % 12/31/20 10:40 Whitley % (Auto) 5.0 % 12/31/20 10:40 Eos % (Auto) 0.0 % 12/31/20 10:40 Baso % (Auto) 0.3 % 12/31/20 10:40 Neut # (Auto) 20.51 10^3/uL (1. 8-7.7) H 12/31/20 10:40 Lymph # (Auto) 1.4 10^3/uL (0.8- 4.8) 12/31/20 10:40 Whitley # (Auto) 1.3 10^3/uL (0.2- 0.9) H 12/31/20 10:40 Eos # (Auto) 0.0 10^3/uL (0.0- 0.8) 12/31/20 10:40 Baso # (Auto) 0.1 10^3/uL (0.0- 0.1) 12/31/20 10:40 Nucleated RBC % (a uto) 0.7 % 12/31/20 10:40 Total Counted 100 (0-100) 12/27/20 00:46 Atypical Lymphs % 0.0 % (0-5) 12/27/20 00:46 Absolute Neutrophi ls 11.6 10^3/cmm (1. 4-6.5) H 12/27/20 00:46 Segmented Neutroph ils 64 % 12/27/20 00:46 Abs Segm Neuts (Ma n) 8.5 10/cmm (1.6-7 .1) H 12/27/20 00:46 Band Neutrophils 23.0 % 12/27/20 00:46 Abs Band Neuts (Ma n) 3.1 10^3/cmm (0.0 -1.2) H 12/27/20 00:46 Lymphocytes (Manua l) 7 % 12/27/20 00:46 Monocytes (Manual) 3.0 % 12/27/20 00:46 Absolute Monocytes 0.4 10^3/cmm (0.1 -0.6) 12/27/20 00:46 Eosinophils (Manua l) 0 % 12/27/20 00:46 Absolute Eosinophi ls 0.0 10^3/cmm (0.0 -0.7) 12/27/20 00:46 Basophils (Manual) 0.0 % 12/27/20 00:46 Absolute Basophils 0.0 10^3/cmm (0.0 -0.2) 12/27/20 00:46 Metamyelocytes 3.0 % 12/27/20 00:46 Nucleated RBCs # 0.2 /100WBC 12/31/20 10:40 Platelet Estimate Normal (Normal) 12/27/20 00:46 Hypochromasia 1+ H 12/27/20 00:46 PT 15.70 SECONDS (12 .1-14.9) H 12/27/20 00:46 INR 1.21 (0.8-1.2) H 12/27/20 00:46 D-Dimer 3.59 ug/mIFEU (0- 0.59) H 12/27/20 00:46 Specimen Type Arterial 12/31/20 04:49 Sample Site Radial, right 12/31/20 04:49 ABG pH 7.38 (7.35-7.45) 12/31/20 04:49 ABG pCO2 52.3 mmHg (35-45) H 12/31/20 04:49 ABG pO2 91.9 mmHg (80.0-1 00.0) 12/31/20 04:49 ABG HCO3 31.1 mmol/L (22-2 6) H 12/31/20 04:49 ABG O2 Saturation 97.4 12/31/20 04:49 ABG Base Excess 5.2 mmol/L (-2.0- 2.0) H 12/31/20 04:49 Abdoulaye Test Pos 12/31/20 04:49 A-a O2 Gradient 12.4 mmHg (5-10) H 12/31/20 04:49 Hematocrit 30.5 % (37-47) L 12/31/20 04:49 Hgb O2 Saturation 95.0 % (95-100) 12/31/20 04:49 Carboxyhemoglobin 1.1 %THgb (0.4-20 .1) 12/31/20 04:49 Methemoglobin 1.4 % (0.4-1.5) 12/31/20 04:49 Total Hemoglobin 10.0 g/dL (12-16) L 12/31/20 04:49 Sodium 151.0 mmol/L (131 -143) H 12/31/20 04:49 Potassium 3.5 mmol/L (3.5-5 .0) 12/31/20 04:49 Glucose 161.0 mg/dL (70-1 15) H 12/31/20 04:49 Ionized Calcium 1.2 mmol/L (1.1-1 .4) 12/31/20 04:49 O2 Delivery Device Vent 12/31/20 04:49 O2 Liters/Min 2.0 % 12/27/20 00:42 Mechanical Rate 14.0 12/29/20 09:59 FiO2 35.0 % 12/31/20 04:49 Tidal Volume 0.45 12/31/20 04:49 PEEP 8.0 cmH20 12/31/20 04:49 X Ray Operator ID Jeovany 12/31/20 04:49 Sodium 146 mmol/L (136-1 45) H 12/31/20 10:40 Potassium 3.4 mmol/L (3.5-5 .1) L 12/31/20 10:40 Chloride 107 mmol/L (98-10 7) 12/31/20 10:40 Carbon Dioxide 27 mmol/L (22-29) 12/31/20 10:40 Anion Gap 15.4 (5-19) 12/31/20 10:40 BUN 19 mg/dL (8-23) 12/31/20 10:40 Creatinine 0.3 mg/dL (0.5-0. 9) L 12/31/20 10:40 GFR Calculation 226.9 mL/min (90- 130) H 12/31/20 10:40 Glucose 178 mg/dL (65-115 ) H 12/31/20 10:40 POC Glucose 197 mg/dL (70-110 ) H 12/31/20 11:26 Estimat Average Gl ucose 137 12/28/20 03:29 Hemoglobin A1c 6.4 % (4.0-6.0) H 12/28/20 03:29 Calculated Osmolal ity 309 mOsm/kg (285- 295) H 12/31/20 10:40 Lactic Acid 1.2 mmol/L (0.5-2 .2) 12/29/20 07:15 Calcium 8.2 mg/dL (8.5-10 .5) L 12/31/20 10:40 Phosphorus 2.2 mg/dL (2.5-4. 5) L 12/28/20 03:29 Magnesium 1.7 mg/dL (1.7-2. 3) 12/28/20 03:29 Iron 7 ug/dL (37-145) L 12/27/20 10:41 TIBC 238 mcg/dl 12/27/20 10:41 % Saturation 2.9 % (20-50) L 12/27/20 10:41 Unsat Iron Binding 231 ug/dL (112-34 7) 12/27/20 10:41 Total Bilirubin 0.5 mg/dL (0.15-1 .2) 12/31/20 10:40 AST 19 U/L (0-32) 12/31/20 10:40 ALT 17 U/L (0-33) 12/31/20 10:40 Alkaline Phosphata se 108 IU/L (35-105) H 12/31/20 10:40 Ammonia 44 umol/L (11-51) 12/27/20 00:46 Creatine Kinase 91 U/L (26-192) 12/29/20 07:15 Troponin T Gen 5 n g/L 30 ng/L (0-10) H 12/31/20 10:40 Troponin T Baselin e 57 ng/L (0-10) H 12/29/20 07:15 Troponin T 120 Min ely shoshone 112.1 ng/L (0-10) H 12/29/20 09:38 Delta Troponin T 55.1 ABS# (0-10) H* 12/29/20 09:38 Troponin T Hi Sens 6Hr 95.06 ng/L (0-10) H 12/29/20 12:13 Troponin T Hi Sens 6Hr Delta 38.06 ng/L (0-12) H* 12/29/20 12:13 C-Reactive Protein 337.6 mg/L (0.0-4 .9) H 12/27/20 00:46 NT-Pro-B Natriuret Pep 4628 pg/mL (0-125 ) H 12/29/20 07:15 Total Protein 6.3 g/dL (6.6-8.7 ) L 12/31/20 10:40 Albumin 2.7 g/dL (3.5-5.2 ) L 12/31/20 10:40 Globulin 3.6 g/dL (1.3-4.6 ) 12/31/20 10:40 Triglycerides 764 mg/dL (0-150) H 12/30/20 04:22 Cholesterol 167 mg/dL (0-200) 12/30/20 04:22 LDL Cholesterol Di rect 36 mg/dL (0-100) 12/30/20 04:22 LDL Cholesterol, C alc Not Reportable 12/30/20 04:22 Total VLDL Cholest bernie 153 mg/dL (0-30) H 12/30/20 04:22 HDL Cholesterol 9 mg/dL (60-100) L 12/30/20 04:22 Cholesterol/HDL Ra shaan 18.56 mg/dL (0.0- 4.40) H 12/30/20 04:22 Procalcitonin 1.04 ng/mL (0-0.5 ) H 12/30/20 04:22 TSH 0.58 uIU/mL (0.27 -4.20) 12/27/20 10:41 Urine Color Yellow (Yellow) 12/27/20 00:42 Urine Appearance Sl hazy (CLEAR) 12/27/20 00:42 Urine pH 5 (5-7) 12/27/20 00:42 Ur Specific Gravit y 1.020 (1.005-1.0 30) 12/27/20 00:42 Urine Protein 2+ (Negative) H 12/27/20 00:42 Urine Glucose (UA) Norm (Normal) 12/27/20 00:42 Urine Ketones 1+ (Negative) H 12/27/20 00:42 Urine Blood Trace (Negative) H 12/27/20 00:42 Urine Nitrate Negative (Negati ve) 12/27/20 00:42 Urine Bilirubin 1+ (Negative) H 12/27/20 00:42 Urine Urobilinogen 1 mg/dL (Negative ) H 12/27/20 00:42 Ur Leukocyte Maria C ase Negative (Negati ve) 12/27/20 00:42 Urine RBC 0-4 /hpf (0-2) H 12/27/20 00:42 Urine WBC 0-4 /hpf (0-5) H 12/27/20 00:42 Ur Squamous Epith Cells 0-4 /hpf (0-5) H 12/27/20 00:42 Amorphous Sediment 4+ /hpf 12/27/20 00:42 Urine Bacteria Trace /hpf (NONE) 12/27/20 00:42 Hyaline Casts 0-4 /lpf H 12/27/20 00:42 Ur Random Sodium 32 mmol/L 12/27/20 16:18 Ur Random Potassiu m 48 mmol/L 12/27/20 16:18 Ur Random Chloride 74 mmol/L 12/27/20 16:18 Vancomycin Trough 17.6 ug/mL (10-15 ) H 12/29/20 10:42 Urine Opiates Scre en Positive ng/mL (N egative) H 12/27/20 00:42 Acetaminophen < 5.0 ug/mL (10-3 0) L 12/27/20 00:46 Ur Barbiturates Sc reen Negative ng/mL (N egative) 12/27/20 00:42 Ur Phencyclidine S crn Negative ng/mL (N egative) 12/27/20 00:42 Ur Amphetamines Sc reen Positive ng/mL (N egative) H 12/27/20 00:42 U Benzodiazepines Scrn Negative ng/mL (N egative) 12/27/20 00:42 Urine Cocaine Scre en Negative ng/mL (N egative) 12/27/20 00:42 U Marijuana (THC) Screen Negative ng/mL (N egative) 12/27/20 00:42 Ethyl Alcohol < 10 mg/dL (0-10) 12/27/20 00:46 Nasal/Oral COVID-1 9 PCR Not detected 12/27/20 05:25 Hepatitis A IgM Ab Non-reactive (No nreactive) 12/29/20 10:42 Hep Bs Antigen Non-reactive (No nreactive) 12/29/20 10:42 Hep Bs Antibody 5.1 (0-8.5) 12/29/20 10:42 Hep B Core Total A b Non-reactive (No nreactive) 12/29/20 10:42 Hepatitis C Antibo dy Non-reactive (No nreactive) 12/29/20 10:42 HIV 1&2 Ab & HIV 1 Ag Non-reactive (No n-Reactiv) 12/29/20 10:42 HIV 1&2 Antibody Non-reactive (No n-Reactiv) 12/29/20 10:42 SARS-CoV-2 Ag (Rap id) Negative (Negati ve) 12/27/20 05:25 [facility] [place] Referenc e See comment 12/27/20 15:[address] 12/27/20 00:35 IMPRESSION: No acute intracranial abnormality. Radiation Dose CTDIVOL = (mGy): DLP = 1452.71 (mGy-cm) Chest CTA 12/27/20 01:34 IMPRESSION: 1. Mild patient motion. No pulmonary embolus is seen. 2. Mild emphysema Radiation Dose CTDIVOL = (mGy): DLP = 617.12 (mGy-cm) Abdomen/Pelvis CT 12/27/20 02:48 IMPRESSION: 1. No acute findings. Negative for adenopathy. 2. Fatty change is present liver. 3. The uterus is surgically absent. Radiation Dose CTDIVOL = (mGy): DLP = 1820.1 (mGy-cm) Foot CT 12/27/20 02:48 IMPRESSION: No evidence of osteomyelitis is seen. No fracture is present. Changes of cellulitis are seen. Radiation Dose CTDIVOL = (mGy): DLP = 391.66 (mGy-cm) Knee X-Ray 12/28/20 15:54 Impression: Right knee arthroplasty. Foot X-Ray 12/29/20 15:56 IMPRESSION: 1. No acute fractures in the right foot. 2. Diffuse soft tissue swelling of the right lower extremity. 3. 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 Chest X-Ray 12/30/20 06:00 Impression: 1. Slight improvement in pulmonary opacities. 2. No change in endotracheal tube and nasogastric tube. Cervical Spine CT 12/30/20 09:29 IMPRESSION: 1. Prior extensive postoperative changes anterior cervical fusion with dorsal posterior element instrumentation extending into the upper thoracic spine. 2. Anterior cervical fusion with corpectomy at C5-C7. Corpectomy at C6. 3. No evidence of high-grade central canal stenosis. Spinal canal has been decompressed. 4. No evidence of epidural abscess or discitis. 5. Slight anterolisthesis C3 on C4 and C4 on C5. 6. Endotracheal tube and enteric tube. Head/Neck CTA 12/30/20 09:29 IMPRESSION: 1. Less than 50% ICA stenosis bilaterally. Both ICAs are patent to the skull base. 2. Normal intracranial CTA. No flow-limiting stenosis. 3. Codominant and patent vertebral arteries bilaterally. 4. Cervical spine described on the cervical spine CT. No evidence of discitis/osteomyelitis or epidural abscess. 5. Patchy infiltrates in the right greater than left upper lobe consistent with pneumonia. Lumbar Spine CT 12/30/20 09:29 IMPRESSION: 1. Mild lumbar curve. Advanced spondylitic changes lumbar spine. 2. Severe central canal stenosis L3-L4 and L4-L5 worse L4-5. Slight anterolisthesis L4 on L5. 3. No evidence of discitis or epidural abscess. 4. Multilevel foraminal narrowing described above. 5. Advanced facet arthropathy worse at L4-5 and L5-S1. Thoracic Spine CT 12/30/20 09:29 IMPRESSION: 1. Mild thoracic curve convex right. Mild thoracic kyphosis. Anterior hypertrophic changes thoracic spine. 2. No evidence of discitis or epidural abscess. 3. No high-grade central canal stenosis. Mild central canal stenosis T9-T10, T10-T11, and moderate T12-L1. 4. Mild to moderate bony foraminal narrowing described above. 5. Small bilateral pleural effusions compressive atelectasis in the lung bases. 6. Patchy interstitial and air space infiltrates in the right greater than left upper lobes consistent with pneumonia. Chest/Abdomen/Pelvis CT 12/30/20 09:32 IMPRESSION: 1. Small bilateral pleural effusions compressive atelectasis new from previous. 2. Patchy interstitial and airspace infiltrates in the perihilar regions and both upper lobes right greater than left also new from December 27, 2020. Findings consistent with pneumonia. 3. Endotracheal tube and enteric tubes. 4. Diffuse fatty infiltration of the liver. 5. Small amount of free fluid in the pelvis. 6. Garber catheter in place. 7. Sigmoid diverticulosis. No evidence of acute diverticulitis. 8. Prior hysterectomy. 9. No acute abdominal or pelvic findings. A&P Assessment and plan (1) Sepsis: Status: Acute Qualifiers: Sepsis type: Streptococcus, other Sepsis acute organ dysfunction status: with acute organ dysfunction Severe sepsis acute organ dysfunction type: encephalopathy Severe sepsis shock status: without septic shock Qualified Code(s): A40.8 - Other streptococcal sepsis; R65.20 - Severe sepsis without septic shock; G93.41 - Metabolic encephalopathy (2) Streptococcal bacteremia: Status: Acute (3) Thrush: Status: Acute (4) Hypoxemia: Status: Acute (5) Cellulitis: Status: Acute Qualifiers: Site of cellulitis: extremity Site of cellulitis of extremity: lower extremity Laterality: right Qualified Code(s): L03.115 - Cellulitis of right lower limb (6) Acute encephalopathy: Status: Acute (7) Diabetes mellitus, type II: Status: Chronic Qualifiers: Diabetes mellitus remote encoding center manager insulin use: without remote encoding center manager use Diabetes mellitus complication status: with diabetic arthropathy Diabetes mellitus complication detail: with other arthropathy Qualified Code(s): E11.618 - Type 2 diabetes mellitus with other diabetic arthropathy Additional A&P Information Ms. Ridley is a 60-year-old female with past medical history as outlined above, currently admitted since December 27, 2020 after presenting with altered mental status of unclear etiology. Thus far work-up has been significant for presence of streptococcal bacteremia, unclear source, however could be skin source from lower extremity cellulitis versus respiratory source from developing pneumonia. Hospital course has also been complicated by acute hypoxic respiratory failure resulting in emergent intubation, currently on mechanical ventilation. #Streptococcal septicemia #MRSA pneumonia #Encephalopathy, can be metabolic encephalopathy from sepsis -Blood culture noted to be positive for group G streptococcus from day of admission, subsequent blood cultures have not revealed any growth. Unclear source of septicemia at this present time, potential sources could be lower extremity cellulitis. Patient is noted to have chronic lymphedema with changes of stasis dermatitis affecting both lower extremities. Right leg does have more prominent changes on the left side. There was noted to be cellulitis on the right lower extremity, which appears to be improving per review of chart notes. No gross edema, warmth or tenderness noted at the right knee joint which is status post replacement. No other gross joint swelling noted. There is small ulceration over the right heel, pictures of which have been reviewed from the podiatry note, appears to be chronic in appearance. No underlying osteomyelitis noted on CT. Even if present, chronic osteomyelitis is highly unlikely to be the source of current sepsis. Patient is noted to be edentulous, very poor oral hygiene, thrush noted in the mouth. Group C streptococcus could be of oropharyngeal origin as well. CT of lumbosacral spine negative fo osteomyelitis/discitis/epidural abscess Patient has been appropriately covered with Zosyn upon admission, changed to cefepime to allow for better GROUP PROGRAM MANAGER penetration. Also has been on vancomycin since admission which covers for Streptococcus. Interim admission events have included intubation for acute hypoxic respiratory failure with development of bilateral infiltrates in both chest. This could represent worsening pneumonia, especially MRSA pneumonia given that sputum culture is positive for this agent. Other possible differentials include COVID-19 pneumonia, though PCR and antigen were negative upon admission. Recommend repeating the same as during initial course of the illness these tests may be negative. Possibility of septic embolization from bacteremia remains a possibility, recommend checking a TTE and if negative VIVEK to evaluate for any valvular vegetations. This would be especially pertinent given history of drug use, possibly IV drug use. Viral pneumonitis could present similarly, respiratory viral panel taken and remains pending. Patient has been started on steroids upon admission due to concern for poor respiratory status and noted wheezing on exam. Though I do not see any chronic steroids listed on her home medications, possibility of disseminated strongyloidosis needs to be considered, check strongyloidiasis antibody for the same. Unlikely to be pneumocystis pneumonitis as there were no infiltrates on day of admission, unlikely for the latter condition to develop within 3 days in a patient who has not otherwise been on long-term steroids and is HIV negative. Check urine Legionella antigen, add atypical pneumonia coverage with levofloxacin over the next 5 days. Check urine histoplasma antigen, no antecedent travel history available at this time. Less likely aspergillosis given acuity of presentation, no underlying profound immunocompromise Acute encephalopathy, present since admission, likely related to metabolic encephalopathy from sepsis. Cannot exclude possibility of bacterial meningitis. LP was unable to be performed in spite of attempts by patient experience coordinator and radiology, likely contributed by body habitus. CT head negative. No gross improvement with trial of acyclovir over 48 hours. Given otherwise evidence of ongoing bacterial infection, less likely that herpes encephalitis as a result of mental status changes. Agree with discontinuing acyclovir. Unlikely that cefepime contributing to encephalopathy given presence since admission. Consider changing cefepime to ceftriaxone 2 g IV every 12 hours is no evidence of Pseudomonas currently. None infectious differentials include status epilepticus versus opioid withdrawal. Check serum cryptococcal antigen given presence of both pneumonia and altered mental status. check serum RPR HIV status negative Oral thrush: Start Fluconazole 100mg po daily x 10 days Thank you for this consult, will follow along Coding Level of Care Code Acute Workers Compensation Coordinator for [facility] Fwd Diagnoses Sepsis A40.8; R65.20; G93.41 Sepsis type: Streptococcus, other Sepsis acute organ dysfunction status: with acute organ dysfunction Severe sepsis acute organ dysfunction type: encephalopathy Severe sepsis shock status: without septic shock Streptococcal bacteremia R78.81; B95.5 Thrush B37.0 Hypoxemia R09.02 Cellulitis L03.115 Site of cellulitis: extremity Site of cellulitis of extremity: lower extremity Laterality: right Acute encephalopathy G93.40 Diabetes mellitus, type II E11.618 Diabetes mellitus remote encoding center manager insulin use: without remote encoding center manager use Diabetes mellitus complication status: with diabetic arthropathy Diabetes mellitus complication detail: with other arthropathy
[2020-12-31] VITALS (90 sets, daily range): BP systolic 104–235; BP diastolic 56–167; PULSE 74–122; RESP 12–31; TEMP 37.5–39.6; O2SAT 88–96
[2020-12-31 01:05] LABS: Glucose Point of Care 166 mg/dL (70-110)
[2020-12-31] MEDS: ipratropium-albuterol 3 mL Neb INHALATION ×4 (02:45→20:52)
[2020-12-31] MEDS: propofol 1,000 MG/100 ML INJ 28.6 MG IV ×2 (03:11→06:38)
[2020-12-31] MEDS: HYDROmorphone 1 mg/mL INJ 1 mL IVP ×4 (03:13→15:00)
[2020-12-31] MEDS: vancomycin 1,500 MG/300 ML PIGGYBACK 200 MG IV (03:14)
[2020-12-31] MEDS: cefepime 2,000 MG in sodium chloride 0.9% (plus) 50 ML 100 MG IV (04:52)
[2020-12-31 05:02] LABS: ABG PCO2 52.3 mmHg (35-45); ABG PH Result 7.38 (7.35-7.45); Alveolar-Arterial Oxygen Gradi 12.4 mmHg (5-10); Arterial Blood Gas Hematocrit 30.5 % (37-47); Base Excess ABG 5.2 mmol/L (-2.0-2.0); Blood Gas Allen Test Pos; Blood Gas Operator Identificat JB; Blood Gas Sample Site Radial, right; Blood Gas Sample Type Arterial; Blood Gas Tidal Volume 0.45; Carboxyhemoglobin 1.1 %THgb (0.4-20.1); HCO3 ABG 31.1 mmol/L (22-26); Ionized Calcium Level - ABG 1.2 mmol/L (1.1-1.4); Methemoglobin 1.4 % (0.4-1.5); Oxygen Device VENT; Oxygen Saturation ABG 97.4; PO2 ABG 91.9 mmHg (80.0-100.0); Potassium Level - ABG 3.5 mmol/L (3.5-5.0)
[2020-12-31 05:57] LABS: Glucose Point of Care 162 mg/dL (70-110)
[2020-12-31] MEDS: famotidine 20 mg/2 mL INJ IVP ×2 (06:38→18:02)
[2020-12-31] MEDS: FUROsemide 10 mg/mL SDV 2mL 20 MG IVP (07:50)
[2020-12-31] MEDS: metoprolol tartrate 1 mg/1 mL SDV 5 mL 5 MG IV (08:37)
[2020-12-31] MEDS: budesonide 0.5 mg/2 mL Neb INHALATION ×2 (08:52→20:51)
[2020-12-31] MEDS: nystatin powder 15 gm Btl 1 APPLIC TOPICAL ×2 (09:52→18:02)
[2020-12-31] MEDS: aspirin 81 mg EC Tablet PO (09:52)
[2020-12-31] MEDS: baclofen 10 mg Tablet 20 MG PO (09:52)
[2020-12-31] MEDS: enoxaparin 100 mg/mL Syringe SUBCUT ×2 (09:52→21:32)
--- NOTE | 2020-12-31 09:54 | PC.CHAP ---
Pastoral Care Encounter/Spiritual Assessment Type of Contact [] Declined marine equipment sales engineer visit [] Patient/Family/Request visit [] Outpatient visit [XX] Follow-up visit [] Physician referral [] Code/Alert [] Routine visit [] Staff referral [] Actively dying [] Patient sleeping [] Family support [] [] Out of room [] Palliative care [] [] Receiving care in room [] Pre-surgical visit [] Trauma [] Long length of stay [XX] ICU visit [] Other: Relational/Emotional Strength [] Patient feels connected with others/family/visitors/staff [] Distress [] Loneliness/isolation [] Abandonment Spirituality of Patient [] Person of Amee [] Attends Adventism of their Amee [] Believes in Prayer [] Reads Bible or Jainism materials [] There are Spiritual issues to be addressed Director Transition Interventions [XX] Prayer [] Active listening [] Non-anxious presence [] Spiritual/emotional support [] Crisis/trauma care [] Spiritual counseling [] Bereavement support [] Provided bereavement packet [] Provided Bible/devotional materials [] Provided toy/stuffed animal, coloring book to patient or family member [] Provided Communion [] Anointing/[place] [] Salvation [] Completed spiritual assessment [] Other: Impact on Illness or Injury [] Angry [] Fearful [] Anxious [] Often cries [] Exhaustion [] Unable to work [] Unable to attend hinduism [] Unable to walk/stand [] Unable to read [] Unable to drive [] Unable to eat/drink [] Unable to sleep [] Unable to be with family [XX] Patient intubated [] Other: Summary: Family has requested daily prayer for patient. Prayed outside her room. Time spent with patient: 5 mins
[2020-12-31] MEDS: vancomycin 1,500 MG/300 ML PIGGYBACK 150 MG IV ×2 (10:01→18:02)
--- NOTE | 2020-12-31 10:02 | P.PN_ITS ---
Subjective Subjective: Interval history: Patient seen multiple times during the day. On examination patient is on minimal vent settings with PEEP of 8, FiO2 of 25% with tidal volume of 450 and mechanical rate of 14 saturating 94%. During the day patient has had multiple episodes when her heart rate will go up to 130s with blood pressure going up to 200 systolic, T-max going up to 103 Fahrenheit which would respond to 1 g of IV Dilaudid after which her heart rate was settled down to 80s and systolic blood pressure was settled down to 140s. Documented urine output in last 24 hours over 4 L. Patient continues to remain altered, not responding to any kind of commands but is moving her limbs. Pupils are better responsive are dilated. Blood pressures have remained stable. Vitals/I&O/Wt Last Vital Signs Temp 100.3 F H 12/31/20 07:00 Pulse 108 H 12/31/20 09:00 Resp 24 H 12/31/20 08:52 BP 175/125 12/31/20 09:00 Pulse Ox 92 12/31/20 09:00 12/30/20 12/31/20 12/31/20 22:59 06:59 14:59 Intake Total 543.288 / 7290.638 4317.917 / 2367.819 69.362 / 69.362 Output Total 1650 / 3400 250 / 3650 950 / 950 Balance -1106.712 / -2041.098 758.917 / -1282.181 -880.638 / -880.638 Weight last 48 hrs Weight 101.968 kg Physical Exam Narrative: EXAM NARRATIVE: General: Altered, and currently moving both her arms, not responding to any kind of commands, pupils bilaterally reactive, not concentrating removed. HEENT: PERRLA, Chest: Normal vesicular breath sounds, coarse crackles present in bilateral upper zone more than the right, rhonchi bilaterally, equal good air entry bilaterally CVS: S1-S2 regular, no murmurs, no tachycardia, no gallops, no rubs Abdomen: Soft, nontender, no organomegaly, bowel sounds present Neuro: No focal deficits, no facial deformity, AO x3, moving all 4 limbs Skin: OTHER: Erythema noted under both breasts left greater than right, some scattered petechiae on the upper chest. There is erythema with satellite lesions in both groins. Both lower extremities with erythema and warmth from knee to foot right much more prominent than the left. There is a small dime sized bruise upper outer calf. She has skin breakdown on the right heel and the left forefoot present on admission. There is a scab sore to the right great toe. There are other scabbed sores to both lower extremities. No oozing currently Urinary Catheter Management^: Garber: Cath Placed During This Visit: yes Reason for Continuing Indwelling Catheter: Accurate Measurement of Urinary Output in Critically Ill Patients Urinary Catheter Date of Insertion: 12/27/20 Urinary Catheter Time of Insertion: 00:51 Data : 12/31/20 10:40 12/31/20 10:40 Other Labs: Laboratory Results Pertinent Labs During Stay 12/27/20 12/27/20 12/27/20 00:46 00:46 00:46 Hemoglobin A1c Iron TIBC % Saturation Creatine Kinase 390 H* Troponin T Gen 5 ng/L 10 C-Reactive Protein 337.6 H NT-Pro-B Natriuret Pep 500 H Triglycerides Cholesterol HDL Cholesterol Procalcitonin TSH Vancomycin Trough Acetaminophen < 5.0 L 12/27/20 12/27/20 12/28/20 10:41 10:41 03:29 Hemoglobin A1c Iron 7 L TIBC 238 % Saturation 2.9 L Creatine Kinase 230 H Troponin T Gen 5 ng/L C-Reactive Protein NT-Pro-B Natriuret Pep Triglycerides Cholesterol HDL Cholesterol Procalcitonin 2.03 H TSH 0.58 Vancomycin Trough Acetaminophen 12/28/20 12/28/20 12/28/20 03:29 09:55 09:55 Hemoglobin A1c 6.4 H Iron TIBC % Saturation Creatine Kinase Troponin T Gen 5 ng/L C-Reactive Protein NT-Pro-B Natriuret Pep 2551 H Triglycerides Cholesterol HDL Cholesterol Procalcitonin 1.67 H TSH Vancomycin Trough 18.2 H Acetaminophen 12/29/20 12/29/20 12/29/20 07:15 10:42 16:00 Hemoglobin A1c Iron TIBC % Saturation Creatine Kinase 91 Troponin T Gen 5 ng/L Cancelled C-Reactive Protein NT-Pro-B Natriuret Pep 4628 H Triglycerides Cholesterol HDL Cholesterol Procalcitonin TSH Vancomycin Trough 17.6 H Acetaminophen 12/29/20 12/30/20 12/31/20 16:50 04:22 10:40 Hemoglobin A1c Iron TIBC % Saturation Creatine Kinase Troponin T Gen 5 ng/L 64 H 30 H C-Reactive Protein NT-Pro-B Natriuret Pep Triglycerides 764 H Cholesterol 167 HDL Cholesterol 9 L Procalcitonin 1.04 H TSH Vancomycin Trough Acetaminophen Impressions Head CT 12/27/20 00:35 IMPRESSION: No acute intracranial abnormality. Radiation Dose CTDIVOL = (mGy): DLP = 1452.71 (mGy-cm) Chest CTA 12/27/20 01:34 IMPRESSION: 1. Mild patient motion. No pulmonary embolus is seen. 2. Mild emphysema Radiation Dose CTDIVOL = (mGy): DLP = 617.12 (mGy-cm) Abdomen/Pelvis CT 12/27/20 02:48 IMPRESSION: 1. No acute findings. Negative for adenopathy. 2. Fatty change is present liver. 3. The uterus is surgically absent. Radiation Dose CTDIVOL = (mGy): DLP = 1820.1 (mGy-cm) Foot CT 12/27/20 02:48 IMPRESSION: No evidence of osteomyelitis is seen. No fracture is present. Changes of cellulitis are seen. Radiation Dose CTDIVOL = (mGy): DLP = 391.66 (mGy-cm) Knee X-Ray 12/28/20 15:54 Impression: Right knee arthroplasty. Foot X-Ray 12/29/20 15:56 IMPRESSION: 1. No acute fractures in the right foot. 2. Diffuse soft tissue swelling of the right lower extremity. 3. 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 Chest X-Ray 12/30/20 06:00 Impression: 1. Slight improvement in pulmonary opacities. 2. No change in endotracheal tube and nasogastric tube. Cervical Spine CT 12/30/20 09:29 IMPRESSION: 1. Prior extensive postoperative changes anterior cervical fusion with dorsal posterior element instrumentation extending into the upper thoracic spine. 2. Anterior cervical fusion with corpectomy at C5-C7. Corpectomy at C6. 3. No evidence of high-grade central canal stenosis. Spinal canal has been decompressed. 4. No evidence of epidural abscess or discitis. 5. Slight anterolisthesis C3 on C4 and C4 on C5. 6. Endotracheal tube and enteric tube. Head/Neck CTA 12/30/20 09:29 IMPRESSION: 1. Less than 50% ICA stenosis bilaterally. Both ICAs are patent to the skull base. 2. Normal intracranial CTA. No flow-limiting stenosis. 3. Codominant and patent vertebral arteries bilaterally. 4. Cervical spine described on the cervical spine CT. No evidence of discitis/osteomyelitis or epidural abscess. 5. Patchy infiltrates in the right greater than left upper lobe consistent with pneumonia. Lumbar Spine CT 12/30/20 09:29 IMPRESSION: 1. Mild lumbar curve. Advanced spondylitic changes lumbar spine. 2. Severe central canal stenosis L3-L4 and L4-L5 worse L4-5. Slight ante rolisthesis L4 on L5. 3. No evidence of discitis or epidural abscess. 4. Multilevel foraminal narrowing described above. 5. Advanced facet arthropathy worse at L4-5 and L5-S1. Thoracic Spine CT 12/30/20 09:29 IMPRESSION: 1. Mild thoracic curve convex right. Mild thoracic kyphosis. Anterior hypertrophic changes thoracic spine. 2. No evidence of discitis or epidural abscess. 3. No high-grade central canal stenosis. Mild central canal stenosis T9-T10, T10-T11, and moderate T12-L1. 4. Mild to moderate bony foraminal narrowing described above. 5. Small bilateral pleural effusions compressive atelectasis in the lung bases. 6. Patchy interstitial and air space infiltrates in the right greater than left upper lobes consistent with pneumonia. Chest/Abdomen/Pelvis CT 12/30/20 09:32 IMPRESSION: 1. Small bilateral pleural effusions compressive atelectasis new from previous. 2. Patchy interstitial and airspace infiltrates in the perihilar regions and both upper lobes right greater than left also new from December 27, 2020. Findings consistent with pneumonia. 3. Endotracheal tube and enteric tubes. 4. Diffuse fatty infiltration of the liver. 5. Small amount of free fluid in the pelvis. 6. Garber catheter in place. 7. Sigmoid diverticulosis. No evidence of acute diverticulitis. 8. Prior hysterectomy. 9. No acute abdominal or pelvic findings. Micro: Microbiology 12/29/20 08:25 Gram Stain - Final Sputum - Endotracheal Tube Aspirate Sputum Culture - Final Methicillin Resis Staph Aureus 12/27/20 00:46 Blood Culture - Preliminary Blood Group g streptococcus 12/29/20 17:54 Blood Culture - Preliminary Blood NEGATIVE TO DATE 12/29/20 17:57 Blood Culture - Preliminary Blood NEGATIVE TO DATE 12/29/20 16:30 Gram Stain - Final Leg - #1 Wound Culture - Preliminary Microbiology 12/29/20 16:30 Leg - #1 Gram Stain - Final 12/29/20 16:30 Leg - #1 Wound Culture - Preliminary 12/29/20 08:25 Sputum - Endotracheal Tube Aspirate Gram Stain - Final 12/29/20 08:25 Sputum - Endotracheal Tube Aspirate Sputum Culture - Final Methicillin Resis Staph Aureus 12/27/20 00:46 Blood Blood Culture - Preliminary Group g streptococcus 12/29/20 17:54 Blood Blood Culture - Preliminary NEGATIVE TO DATE 12/29/20 17:57 Blood Blood Culture - Preliminary NEGATIVE TO DATE 12/27/20 15:40 Blood Blood Culture - Preliminary NEGATIVE TO DATE 12/27/20 15:41 Blood Blood Culture - Preliminary NEGATIVE TO DATE 12/27/20 00:45 Unknown Source Legionella Urinary Antigen - Final 12/27/20 01:28 Blood Blood Culture - Preliminary NEGATIVE TO DATE A&P Assessment and plan (1) Streptococcal bacteremia: Status: Acute (2) Sepsis: Status: Acute (3) Acute encephalopathy: Status: Acute (4) Methamphetamine use: Looks to be a longstanding means of managing pain for this patient on review of records and has led to not being able to be managed at at least our pain clinic here. Status: Chronic (5) Cellulitis: Bilateral lower extremities, left more significant than right. Status: Acute Qualifiers: Laterality: right Site of cellulitis: extremity Site of cellulitis of extremity: lower extremity Qualified Code(s): L03.115 - Cellulitis of right lower limb (6) Hypoxemia: Not chronically on oxygen, history of prior tobacco use, CTA with some emphysematous changes but otherwise unremarkable. Status: Acute (7) Diabetes mellitus, type II: Looks to chronically only be on Metformin, currently with hyperglycemia Status: Chronic Qualifiers: Diabetes mellitus complication detail: with other arthropathy Diabetes mellitus complication status: with diabetic arthropathy Diabetes mellitus watermelon harvesting supervisor insulin use: without half-way use Qualified Code(s): E11.618 - Type 2 diabetes mellitus with other diabetic arthropathy (8) Hypertension: Chronically on Lasix and atenolol with potassium replacement Status: Chronic Qualifiers: Hypertension type: unspecified Qualified Code(s): I10 - Essential (p rimary) hypertension (9) Hyperlipidemia: Chronically on fenofibrate Status: Chronic Qualifiers: Hyperlipidemia type: unspecified Qualified Code(s): E78.5 - Hyperlipidemia, unspecified (10) Chronic pain: Looks to be chronically prescribed baclofen and gabapentin Status: Chronic Qualifiers: Chronic pain type: other chronic pain Qualified Code(s): G89.29 - Other chronic pain (11) Depression with anxiety: Looks to chronically be on Effexor and BuSpar Status: Acute (12) Tinea corporis: Status: Acute (13) 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 Continue with baclofen this could be baclofen withdrawal as well. Start patient on long-acting opiate with methadone 20 mg daily. Check NMDA receptor encephalitis from serum. If elevated will check in CSF. Still cannot rule out meningitis. Lumbar puncture could not be done or been a fter multiple attempts from employment program representative and radiologist. Patient intubated overnight December 28, 2020. Daily sedation vacation. If needed can put patient on fentanyl and Precedex. No signs of seizures at present. If patient continues to remain disabled most likely requires an EEG. Streptococcal bacteremia Sepsis: Secondary to cellulitis and pneumonia: CT spine done yesterday negative for discitis, results appreciated on CT chest. No focus seen on CT abdomen. Meningitis cannot be ruled out as lumbar puncture could not be done though patient has been on appropriate antibiotics for more than 3 days without any improvement in mentation. COVID-19 negative on admission. No signs of osteomyelitis on admission on CT foot. Knee x-ray was done negative for any signs of effusion Cellulitis seems to be improving. Keep mean arterial pressure over 65. Blood cultures from day of admission now 2 out of 4 sets positive for group B strep. Repeat blood culture preliminary negative. Sensitivities awaited. MRSA positive. Repeat blood cultures. For now continue with vancomycin, cefepime, acyclovir. Vancomycin as patient is MRSA positive. Cefepime as it has better meningeal penetration and given her IV drug abuse cannot rule out superadded Pseudomonas infection from cellulitis. Appreciate Dr. Garrido's and Dr. Winters input and help. Continue DuoNebs and budesonide twice daily. Wean Solu-Medrol to 40 mg IV daily for now. Check echocardiogram. Patient overall 3 L negative in last 24 hours. Strict input output charting, daily weights. Elevated troponins: We will cycle troponin for 6 hours. Most likely secondary to demand ischemia from hypoxia overnight though cannot rule out non-ST elevation [place]. Continue 81 mg aspirin daily. Repeat troponins. If lower than before can change the Lovenox to prophylactic dose. Stop statins given the lipid panel. Start patient on home dose of fenofibrate. Hypertriglyceridemia: Lipid panel results appreciated. Stop statins. Start home dose of fenofibrate Type 2 diabetes mellitus: Insulin sliding scale at moderate dose every 6 hours as patient is n.p.o. because of her mental status. Hypertension: Goal blood pressure less than 140/90 mmHg keeping mean arterial pressure over 65. Blood pressure soft today. We will continue to monitor. Full code. Start patient on tube feeds. Start at 20 cc an hour with 10 cc hour increment every 4 hours with goal of 50 cc an hour and free water flush 150 cc every 4. Full dose Lovenox will also help with DVT prophylaxis. Patient's care discussed in detail with her son Odell Stanford on phone. Mr. Bain verbalizes understanding and has agreed to act the DPOA at he is the only next of kin available. Discussed that unfortunately patient is severely altered for last 4 days which could be because of multiple reasons. He verbalizes understanding. Critically ill, guarded prognosis for now. Continue with ICU care. Attestations Medical Necessity Statement*: Patient requires further hospitalization for management of acute encephalopathy most likely secondary to possible opiate w ithdrawal, sepsis from pneumonia as patient remains ventilator dependent. Critical Care Time: The high probability of a clinically significant, sudden or life threatening deterioration of the patient's SOUNDSCRIBER MECHANIC, pulmonary, renal system(s) required my full and direct attention, intervention and personal management. The critical care time is as shown. This time is in addition to time spent performing any reported procedures but includes the following: [x] Data and vital sign review and interpretation [x] Patient assessment, examination and intervention [x] Documentation [x] Medication orders and management Critical Care Time (min): 90 Coding Level of Care Code Acute Financial Center Manager for [facility] Fwd Diagnoses Streptococcal bacteremia R78.81; B95.5 Sepsis A41.9 Acute encephalopathy G93.40 Methamphetamine use F15.10 Cellulitis L03.115 Laterality: right Site of cellulitis: extremity Site of cellulitis of extremity: lower extremity Hypoxemia R09.02 Diabetes mellitus, type II E11.618 Diabetes mellitus complication detail: with other arthropathy Diabetes mellitus complication status: with diabetic arthropathy Diabetes mellitus half-way insulin use: without watermelon harvesting supervisor use Hypertension I10 Hypertension type: unspecified Hyperlipidemia E78.5 Hyperlipidemia type: unspecified Chronic pain G89.29 Chronic pain type: other chronic pain Depression with anxiety F41.8 Tinea corporis B35.4 Vgtuvdw-Huzol-Vppzt disease-like deformity of foot G60.0 Thrush B37.0 Opiate withdrawal F11.23
[2020-12-31] MEDS: dexmedetomidine 400 MCG in sodium chloride 0.9% (100 ml) 100 ML IV (10:21)
[2020-12-31] MEDS: FUROsemide 10 mg/mL SDV 4mL 40 MG IVP (10:22)
[2020-12-31] MEDS: cloNIDine 0.2 mg/24 hr Patch 1 PATCH TRANSDERMA (10:22)
[2020-12-31 11:10] LABS: Alanine Aminotransferase 17 U/L (0-33); Albumin Level 2.7 g/dL (3.5-5.2); Alkaline Phosphatase 108 IU/L (35-105); Anion Gap 15.4 (5-19); Aspartate Amino Transferase 19 U/L (0-32); Blood Urea Nitrogen 19 mg/dL (8-23); Calcium 8.2 mg/dL (8.5-10.5); Carbon Dioxide 27 mmol/L (22-29); Chloride 107 mmol/L (98-107); Globulin 3.6 g/dL (1.3-4.6); Glomerular Filtration Rate 226.9 mL/min (90-130); Glucose 178 mg/dL (65-115); Osmolality Calculated 309 mOsm/kg (285-295); Potassium 3.4 mmol/L (3.5-5.1); Sodium 146 mmol/L (136-145); Total Bilirubin 0.5 mg/dL (0.15-1.2); Total Protein 6.3 g/dL (6.6-8.7)
[2020-12-31 11:15] LABS: Basophils # 0.1 10^3/uL (0.0-0.1); Basophils % 0.3 %; Hematocrit 29.3 % (37.0-47.0); Hemoglobin 9.4 g/dL (11.5-15.3); Lymphocytes # 1.4 10^3/uL (0.8-4.8); Lymphocytes % 5.1 %; Mean Corpuscular HGB Conc 32.1 g/dL (30.0-36.0); Mean Corpuscular Hemoglobin 30.3 pg (28.0-34.0); Mean Corpuscular Volume 94.5 fL (81-99); Monocytes # 1.3 10^3/uL (0.2-0.9); Neutrophils # 20.51 10^3/uL (1.8-7.7); Nucleated Red Blood Cells # 0.2 /100WBC; Nucleated Red Blood Cells % 0.7 %; Platelet Count 306 10^3/cmm (130-400); Red Cell Distribution Width 16.6 % (12.1-15.1); White Blood Count 26.5 10^3/uL (4.0-10.0)
[2020-12-31] MEDS: acetaminophen 325 mg Tablet 650 MG PO (11:25)
[2020-12-31 11:30] LABS: Glucose Point of Care 197 mg/dL (70-110)
[2020-12-31 11:33] LABS: Troponin T (5th) Once 30 ng/L (0-10)
[2020-12-31 11:48] LABS: Slide Review Slide Review Perform
[2020-12-31 11:49] LABS: Neutrophils % 89.6 %
[2020-12-31] MEDS: iron sucrose 200 MG in sodium chloride 0.9% (100 ml) 100 ML 220 MG IV (12:05)
[2020-12-31] MEDS: levofloxacin-dextrose 5 % 750 MG/150 ML PREMIX 100 MG IV (16:42)
[2020-12-31] MEDS: methadone 10 mg Tablet 20 MG PO (16:42)
[2020-12-31] MEDS: sodium chloride 0.45% 1,000 ML 50 ML IV (16:43)
[2020-12-31] MEDS: dexmedetomidine 400 MCG in sodium chloride 0.9% (100 ml) 100 ML 14.9 MCG IV (16:43)
--- NOTE | 2020-12-31 16:43 | P.PN_ITS ---
Subjective Subjective: Interval history: Infectious disease progress note Ramins intubated, sedated, T max 103F today Medications: Reviewed: Yes Vitals/I&O/Wt Last Vital Signs Temp 103.2 F H 12/31/20 15:00 Pulse 86 12/31/20 16:00 Resp 23 H 12/31/20 16:30 BP 128/68 12/31/20 16:00 Pulse Ox 95 12/31/20 16:00 12/31/20 12/31/20 12/31/20 06:59 14:59 22:59 Intake Total 1008.917 / 2367.819 515.328 / 515.328 13.847 / 529.175 Output Total 250 / 3650 2250 / 2250 Balance 758.917 / -1282.181 -1734.672 / -1734.672 13.847 / -1720.825 Weight last 48 hrs Weight 101.968 kg Physical Exam Narrative: EXAM NARRATIVE: GEN: Intubated, sedated HEENT: ETT in place, no nicky purulence, oral thrush noted CVS: S1S2 N, tachycardia+ RS: CTA B/L, crackles over right lung base Abd: Soft, nt/nd , bs+ RN DISEASE MANAGEMENT: Unable to asess EXT: RLE with chronic lymphedema associated skin changes, changes appear to be related to stasis dermatitis, at this time cellulitis appears to be improving, Right foot with dressing in place, blood soaking noted. RIght knee s/p replacement, no gross swelling noted at any joints Urinary Catheter Management^: Garber: Cath Placed During This Visit: yes Reason for Continuing Indwelling Catheter: Accurate Measurement of Urinary Output in Critically Ill Patients Urinary Catheter Date of Insertion: 12/27/20 Urinary Catheter Time of Insertion: 00:51 Data : 12/31/20 10:40 12/31/20 10:40 Micro: Microbiology 12/29/20 16:30 Gram Stain - Final Leg - #1 Wound Culture - Preliminary 12/29/20 08:25 Gram Stain - Final Sputum - Endotracheal Tube Aspirate Sputum Culture - Final Methicillin Resis Staph Aureus 12/27/20 00:46 Blood Culture - Preliminary Blood Group g streptococcus 12/29/20 17:54 Blood Culture - Preliminary Blood NEGATIVE TO DATE 12/29/20 17:57 Blood Culture - Preliminary Blood NEGATIVE TO DATE A&P Assessment and plan (1) Sepsis: Status: Acute Qualifiers: Sepsis type: Streptococcus, other Sepsis acute organ dysfunction status: with acute organ dysfunction Severe sepsis acute organ dysfunction type: encephalopathy Severe sepsis shock status: without septic shock Qualified Code(s): A40.8 - Other streptococcal sepsis; R65.20 - Severe sepsis without septic shock; G93.41 - Metabolic encephalopathy (2) Streptococcal bacteremia: Status: Acute (3) Thrush: Status: Acute (4) Hypoxemia: Status: Acute (5) Cellulitis: Status: Acute Qualifiers: Site of cellulitis: extremity Site of cellulitis of extremity: lower extremity Laterality: right Qualified Code(s): L03.115 - Cellulitis of right lower limb (6) Acute encephalopathy: Status: Acute (7) Diabetes mellitus, type II: Status: Chronic Qualifiers: Diabetes mellitus ad terminal makeup operator insulin use: without ad terminal makeup operator use Diabetes mellitus complication status: with diabetic arthropathy Diabetes mellitus complication detail: with other arthropathy Qualified Code(s): E11.618 - Type 2 diabetes mellitus with other diabetic arthropathy Additional A&P Information Ms. Snyder is a 60-year-old female with past medical history as outlined above, currently admitted since December 27, 2020 after presenting with altered mental status of unclear etiology. Thus far work-up has been significant for presence of streptococcal bacteremia, unclear source, however could be skin source from lower extremity cellulitis versus respiratory source from developing pneumonia. Hospital course has also been complicated by acute hypoxic respiratory failure resulting in emergent intubation, currently on mechanical ventilation. #Streptococcal septicemia #MRSA pneumonia #Encephalopathy, can be metabolic encephalopathy from sepsis -Blood culture noted to be positive for group G streptococcus from day of admission, subsequent blood cultures have not revealed any growth. Unclear source of septicemia at this present time, potential sources could be lower extremity cellulitis. Patient is noted to have chronic lymphedema with changes of stasis dermatitis affecting both lower extremities. Right leg does have more prominent changes on the left side. There was noted to be cellulitis on the right lower extremity, which appears to be improving per review of chart notes. No gross edema, warmth or tenderness noted at the right knee joint which is status post replacement. No other gross joint swelling noted. There is small ulceration over the right heel, pictures of which have been reviewed from the podiatry note, appears to be chronic in appearance. No underlying osteomyelitis noted on CT. Even if present, chronic osteomyelitis is highly unlikely to be the source of current sepsis. Patient is noted to be edentulous, very poor oral hygiene, thrush noted in the mouth. Group C streptococcus could be of oropharyngeal origin as well. CT of lumbosacral spine negative fo osteomyelitis/discitis/epidural abscess Patient has been appropriately covered with Zosyn upon admission, changed to cefepime to allow for better RN DISEASE MANAGEMENT penetration. Also has been on vancomycin since admission which covers for Streptococcus. Interim admission events have included intubation for acute hypoxic respiratory failure with development of bilateral infiltrates in both chest. This could represent worsening pneumonia, especially MRSA pneumonia given that sputum culture is positive for this agent. Other possible differentials include COVID- 19 pneumonia, though PCR and antigen were negative upon admission. Recommend repeating the same as during initial course of the illness these tests may be ne gative. Possibility of septic embolization from bacteremia remains a possibility, recommend checking a TTE and if negative VIVEK to evaluate for any valvular vegetations. This would be especially pertinent given history of drug use, possibly IV drug use. Viral pneumonitis could present similarly, respiratory viral panel taken and remains pending. Patient has been started on steroids upon admission due to concern for poor respiratory status and noted wheezing on exam. Though I do not see any chronic steroids listed on her home medications, possibility of disseminated strongyloidosis needs to be considered, check strongyloidiasis antibody for the same. Unlikely to be pneumocystis pneumonitis as there were no infiltrates on day of admission, unlikely for the latter condition to develop within 3 days in a patient who has not otherwise been on long-term steroids and is HIV negative. Check urine Legionella antigen, add atypical pneumonia coverage with levofloxacin over the next 5 days. Check urine histoplasma antigen, no antecedent travel history available at this time. Less likely aspergillosis given acuity of presentation, no underlying profound immunocompromise Acute encephalopathy, present since admission, likely related to metabolic encephalopathy from sepsis. Cannot exclude possibility of bacterial meningitis. LP was unable to be performed in spite of attempts by land lease information clerk and radiology, likely contributed by body habitus. CT head negative. No gross improvement with trial of acyclovir over 48 hours. Given otherwise evidence of ongoing bacterial infection, less likely that herpes encephalitis as a result of mental status changes. Agree with discontinuing acyclovir. Unlikely that cefepime contributing to encephalopathy given presence since admission. None infectious differentials include status epilepticus versus opioid withdrawal. Check serum cryptococcal antigen given presence of both pneumonia and altered mental status. check serum RPR HIV status negative Oral thrush: Continue Fluconazole 100mg po daily x 10 days Will follow along Attestations Medical Necessity Statement*: per admitting note Coding Level of Care Code Acute Radio Adjuster for g Fwd Diagnoses Sepsis A40.8; R65.20; G93.41 Sepsis type: Streptococcus, other Sepsis acute organ dysfunction status: with acute organ dysfunction Severe sepsis acute organ dysfunction type: encephalopathy Severe sepsis shock status: without septic shock Streptococcal bacteremia R78.81; B95.5 Thrush B37.0 Hypoxemia R09.02 Cellulitis L03.115 Site of cellulitis: extremity Site of cellulitis of extremity: lower extremity Laterality: right Acute encephalopathy G93.40 Diabetes mellitus, type II E11.618 Diabetes mellitus ad terminal makeup operator insulin use: without ad terminal makeup operator use Diabetes mellitus complication status: with diabetic arthropathy Diabetes mellitus complication detail: with other arthropathy
[2020-12-31 17:27] LABS: Glucose Point of Care 220 mg/dL (70-110)
--- NOTE | 2020-12-31 19:07 | PC.NURSE ---
[address] Pineda. Reported VS and UOP. Orders to turn sedation off, give IV Lasix, IV Dilaudid, and IV metoporolol. [address] Pineda to report elevated heart rate, blood pressure, and RR. Orders to continue to monitor. 0845 Spoke to Miriam to report vital sgns and mental status, patient not following commands. States he will be rounding on her soon. Keep sedation off at this time. 1000 Dr. Pineda at bedside. Orders for a clonidine patch, turn up the Fentanyl, and start a Precedex drip. 1020 Dr. Winters at bedside. Discussed plan of care. [address] Pineda to report elevated heart rate and blood pressure, and temp of 102.5. Orders to give IV dilaudud. [address] Pineda on patient's vital signs. [address] Garrido called back and spoke with charge nurse, stated he will be in to assess foot wound today. 1540 Reported elevated temp to Dr. Pineda. Orders for IV tylenol.
--- NOTE | 2020-12-31 21:38 | PC.NURSE ---
Per Pharmacy: Fenofibrate Micronized should not be crushed. Physician notified.
--- NOTE | 2020-12-31 23:17 | PC.NURSE ---
Hold IV Dilaudid until AM physician clarifies.
[2020-12-31] MEDS: dexmedetomidine 400 MCG in sodium chloride 0.9% (100 ml) 100 ML 17.3 MCG IV (23:21)
[2021-01-01] VITALS (67 sets, daily range): BP systolic 114–207; BP diastolic 54–102; PULSE 74–109; RESP 14–26; TEMP 37.7–38.8; O2SAT 85–100
[2021-01-01 01:05] LABS: Procalcitonin 0.77 ng/mL (0-0.5)
[2021-01-01 01:17] LABS: Rapid Plasma Reagin Syphilis Nonreactive (Nonreactive)
[2021-01-01] MEDS: ipratropium-albuterol 3 mL Neb INHALATION ×4 (02:37→20:48)
[2021-01-01] MEDS: vancomycin 1,500 MG/300 ML PIGGYBACK 200 MG IV ×3 (03:18→18:06)
[2021-01-01] MEDS: HYDROmorphone 1 mg/mL INJ 1 mL IVP ×3 (03:19→18:05)
[2021-01-01 03:32] LABS: Glucose Point of Care 191 mg/dL (70-110)
[2021-01-01 03:32] LABS: Glucose Point of Care 182 mg/dL (70-110)
[2021-01-01 04:19] LABS: ABG PCO2 46.6 mmHg (35-45); ABG PH Result 7.47 (7.35-7.45); Alveolar-Arterial Oxygen Gradi 13.6 mmHg (5-10); Arterial Blood Gas Hematocrit 23.8 % (37-47); Base Excess ABG 9.6 mmol/L (-2.0-2.0); Blood Gas Allen Test Pos; Blood Gas Sample Site Radial, left; Blood Gas Sample Type Arterial; Blood Gas Tidal Volume 0.45; Carboxyhemoglobin 1.4 %THgb (0.4-20.1); HCO3 ABG 34.2 mmol/L (22-26); HGB O2 Sat 87.9 % (95-100); Ionized Calcium Level - ABG 1.2 mmol/L (1.1-1.4); Methemoglobin 1.3 % (0.4-1.5); Oxygen Device VENT; Oxygen Saturation ABG 90.4; PO2 ABG 54.4 mmHg (80.0-100.0); Potassium Level - ABG 3.3 mmol/L (3.5-5.0); Total Hemoglobin 7.8 g/dL (12-16)
[2021-01-01 04:38] LABS: Basophils % 0.2 %; Hematocrit 26.7 % (37.0-47.0); Lymphocytes # 1.8 10^3/uL (0.8-4.8); Lymphocytes % 10.5 %; Mean Corpuscular Hemoglobin 29.9 pg (28.0-34.0); Mean Corpuscular Volume 99.6 fL (81-99); Mean Platelet Volume 10.8 fL (7.4-10.4); Monocytes # 1.3 10^3/uL (0.2-0.9); Monocytes % 7.7 %; Neutrophils # 11.88 10^3/uL (1.8-7.7); Neutrophils % 70.6 %; Nucleated Red Blood Cells # 0.1 /100WBC; Nucleated Red Blood Cells % 0.8 %; Platelet Count 258 10^3/cmm (130-400); Red Blood Count 2.68 10^6/uL (4.1-5.3); Red Cell Distribution Width 16.7 % (12.1-15.1); White Blood Count 16.8 10^3/uL (4.0-10.0)
[2021-01-01 05:03] LABS: Alanine Aminotransferase 13 U/L (0-33); Albumin Level 2.4 g/dL (3.5-5.2); Alkaline Phosphatase 93 IU/L (35-105); Anion Gap 10.1 (5-19); Aspartate Amino Transferase 13 U/L (0-32); Blood Urea Nitrogen 23 mg/dL (8-23); Calcium 7.6 mg/dL (8.5-10.5); Carbon Dioxide 30 mmol/L (22-29); Chloride 108 mmol/L (98-107); Glomerular Filtration Rate 226.9 mL/min (90-130); Glucose 184 mg/dL (65-115); Osmolality Calculated 308 mOsm/kg (285-295); Potassium 3.1 mmol/L (3.5-5.1); Sodium 145 mmol/L (136-145); Total Bilirubin 0.5 mg/dL (0.15-1.2); Total Protein 5.4 g/dL (6.6-8.7)
[2021-01-01] MEDS: dexmedetomidine 400 MCG in sodium chloride 0.9% (100 ml) 100 ML 17.3 MCG IV (05:06)
[2021-01-01 05:48] LABS: Slide Review Slide Review Perform
--- NOTE | 2021-01-01 06:00 | XRR_ITS ---
PROCEDURE INFORMATION: Exam: XR Chest, 1 View Exam date and time: 01/01/2021 5:47 AM Age: 60 years old Clinical indication: Shortness of breath; Additional info: Covid TECHNIQUE: Imaging protocol: XR of the chest Views: 1 view. COMPARISON: CT chest abd pel w con* 12/30/2020 2:41 PM FINDINGS: Lungs: Hazy interstitial pulmonary infiltrates are present. They have significantly improved when compared to the previous chest x-ray from 12/30/2020. Pleural spaces: Unremarkable. No pleural effusion. No pneumothorax. Heart/Mediastinum: Heart size is normal for the AP projection. Bones/joints: The patient has undergone cervicothoracic spinal fusion surgery. XR/XR chest 1V portable [id number] IMPRESSION: Improving bilateral interstitial pneumonia.
[2021-01-01] MEDS: famotidine 20 mg/2 mL INJ IVP ×2 (06:20→18:04)
[2021-01-01 07:37] LABS: Glucose Point of Care 243 mg/dL (70-110)
[2021-01-01 07:37] LABS: Glucose Point of Care 225 mg/dL (70-110)
[2021-01-01] MEDS: budesonide 0.5 mg/2 mL Neb INHALATION ×2 (08:53→20:48)
[2021-01-01] MEDS: methadone 10 mg Tablet 20 MG PO (09:23)
[2021-01-01] MEDS: baclofen 10 mg Tablet 20 MG PO (09:23)
[2021-01-01] MEDS: aspirin 81 mg EC Tablet PO (09:23)
[2021-01-01] MEDS: fluconazole 100 mg Tablet NG-TUBE (09:23)
[2021-01-01] MEDS: nystatin powder 15 gm Btl 1 APPLIC TOPICAL ×2 (09:24→18:17)
--- NOTE | 2021-01-01 09:24 | PM.PN ---
Subjective Subjective: Interval history: Patient seen bedside this morning for dressing change and wound inspection. She remains intubated. White count trending down. Vitals/I&O/Wt Last Vital Signs Temp 101.9 F H 01/01/21 06:00 Pulse 80 01/01/21 08:59 Resp 15 01/01/21 08:53 BP 130/70 01/01/21 08:30 Pulse Ox 94 01/01/21 08:53 12/31/20 01/01/21 01/01/21 22:59 06:59 14:59 Intake Total 541.962 / 5326.275 4855.475 / 2729.765 163.333 / 163.333 Output Total 600 / 2850 850 / 3700 Balance -58.038 / -1792.710 822.475 / -970.235 163.333 / 163.333 Weight last 48 hrs Weight 224 lb 12.8 oz Physical Exam Narrative: EXAM NARRATIVE: GENERAL: Patient is alert and oriented ?3 and in no acute distress. The following is a focused bilateral lower extremity exam. VASCULAR: Dorsalis pedis and posterior tibial arteries faintly palpable, palpable popliteal artery bilaterally. Capillary refill time less than 5 seconds to the distal hallux bilaterally. Calf is supple and nontender proximally and distally. Diminished growth pitting edema to the bilateral lower extremities, right greater than left. NEUROLOGICAL: Not tested. DERMATOLOGICAL: Wound to the right medial midfoot corresponding to the talar head, does not probe to bone, no tunneling or undermining. There is no purulence from the wound. Granular base with epithelialized margin, wound measures 2.3 cm x 2.9 cm x 0.2 cm. MUSCULOSKELETAL: Nonreducible Charcot deformity of the right foot with prominent talar head medially. Spastic contracture with flexion at bilateral knee. Reducible hammertoe contracture 2 through 5 bilaterally. Urinary Catheter Management^: Garber: Cath Placed During This Visit: yes Reason for Continuing Indwelling Catheter: Accurate Measurement of Urinary Output in Critically Ill Patients Urinary Catheter Date of Insertion: 12/27/20 Urinary Catheter Time of Insertion: 00:51 Data : 01/01/21 04:02 01/01/21 04:02 Micro: Microbiology 12/31/20 17:05 Legionella Urinary Antigen - Final Urine Catheterized 12/27/20 01:28 Blood Culture - Final Blood NO GROWTH AFTER 5 DAYS 12/31/20 18:46 Blood Culture - Preliminary Blood SPECIMEN COLLECTED 12/31/20 18:46 Blood Culture - Preliminary Blood SPECIMEN COLLECTED 12/29/20 16:30 Gram Stain - Final Leg - #1 Wound Culture - Preliminary 12/29/20 08:25 Gram Stain - Final Sputum - Endotracheal Tube Aspirate Sputum Culture - Final Methicillin Resis Staph Aureus 12/27/20 00:46 Blood Culture - Preliminary Blood Group g streptococcus A&P Assessment and plan (1) Cellulitis: Status: Acute Qualifiers: Site of cellulitis: extremity Site of cellulitis of extremity: lower extremity Laterality: right Qualified Code(s): L03.115 - Cellulitis of right lower limb (2) Methamphetamine use: Status: Chronic (3) Diabetes mellitus, type II: Status: Chronic Qualifiers: Diabetes mellitus local 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 Right midfoot wound appears stable, has chronic appearance. Right foot wound appears stable. CT scan negative for osteomyelitis, x-ray also negative for osteomyelitis. Charcot arthropathy most involved at the talonavicular joint, appears to have stable appearance with remodeling. Does not have acute Charcot characteristics with imaging or clinically. Right foot is in stage III/chronic Charcot foot. Improved granulation tissue at the right foot wound, remains clinically stable, skin lines at the lower extremities indicative of improved edema. No plans for surgical intervention at this time from a podiatry standpoint. Wound was dressed with Hydrofera Blue, sterile 4 x 4's and Kerlix. Wound soft tissue culture negative to date, punch biopsy sent to cytology pending. Podiatry will continue to follow while inpatient, recommend wound care follow-up on discharge. Attestations Medical Necessity Statement*: Diabetic foot ulcer, Charcot, cellulitis and sepsis Coding Level of Care Code Acute Machine Operations Supervisor for [facility] Diagnoses Cellulitis L03.115 Site of cellulitis: extremity Site of cellulitis of extremity: lower extremity Laterality: right Methamphetamine use F15.10 Diabetes mellitus, type II E11.618 Diabetes mellitus local company intermodal truck driver insulin use: without local company intermodal truck driver use Diabetes mellitus complication status: with diabetic arthropathy Diabetes mellitus complication detail: with other arthropathy Uzqmsil-Ueovm-Chkwt disease-like deformity of foot G60.0 Uses wheelchair Z99.3
[2021-01-01] MEDS: enoxaparin 100 mg/mL Syringe SUBCUT (09:25)
--- NOTE | 2021-01-01 09:57 | PC.SOCIAL ---
IMM Update Pg.2 of IMM updated and reviewed with patient's son over the phone. Verbalized understanding.
[2021-01-01 10:38] LABS: Vancomycin Trough 21.5 ug/mL (10-15)
--- NOTE | 2021-01-01 11:00 | PM.PN ---
Subjective Subjective: Interval history: Patient seen today morning. Continues to spike fevers going up to 101.8 Fahrenheit overnight. Has remained hemodynamically stable. Patient continues to be altered. Currently on examination 30% FiO2 with tidal volume of 450, PEEP of 8. On examination she is on fentanyl and Precedex with heart rate of 88 bpm and blood pressure 142/80 mmHg. Hemodynamics have been a lot better after starting methadone but patient continues to spike fever and remain altered. Vitals/I&O/Wt Last Vital Signs Temp 101.3 F H 01/01/21 10:00 Pulse 84 01/01/21 10:00 Resp 14 01/01/21 10:14 BP 132/65 01/01/21 10:00 Pulse Ox 94 01/01/21 10:00 12/31/20 01/01/21 01/01/21 22:59 06:59 14:59 Intake Total 541.962 / 6810.215 4408.475 / 2729.765 259.348 / 259.348 Output Total 600 / 2850 850 / 3700 Balance -58.038 / -1792.710 822.475 / -970.235 259.348 / 259.348 Weight last 48 hrs Weight 101.968 kg Physical Exam Narrative: EXAM NARRATIVE: General: Altered, and currently moving both her arms, not responding to any kind of commands, pupils bilaterally reactive, not concentrating removed. HEENT: PERRLA, Chest: Normal vesicular breath sounds, coarse crackles present in bilateral upper zone more than the right, rhonchi bilaterally, equal good air entry bilaterally CVS: S1-S2 regular, no murmurs, no tachycardia, no gallops, no rubs Abdomen: Soft, nontender, no organomegaly, bowel sounds present Neuro: No focal deficits, no facial deformity, AO x3, moving all 4 limbs Skin: OTHER: Erythema noted under both breasts left greater than right, some scattered petechiae on the upper chest. There is erythema with satellite lesions in both groins. Both lower extremities with erythema and warmth from knee to foot right much more prominent than the left. There is a small dime sized bruise upper outer calf. She has skin breakdown on the right heel and the left forefoot present on admission. There is a scab sore to the right great toe. There are other scabbed sores to both lower extremities. No oozing currently Urinary Catheter Management^: Garber: Cath Placed During This Visit: yes Reason for Continuing Indwelling Catheter: Accurate Measurement of Urinary Output in Critically Ill Patients Urinary Catheter Date of Insertion: 12/27/20 Urinary Catheter Time of Insertion: 00:51 Data : 01/01/21 04:02 01/01/21 04:02 Other Labs: Abnormal lab results 01/01/21 01/01/21 01/01/21 Range/Units 00:27 04:02 04:02 WBC 16.8 H (4.0-10.0) 10^3/uL RBC 2.68 L (4.1-5.3) 10^6/uL Hgb 8.0 L (11.5-15.3) g/dL Hct 26.7 L (37.0-47.0) % MCV 99.6 H D (81-99) fL RDW 16.7 H (12.1-15.1) % MPV 10.8 H (7.4-10.4) fL Neut # (Auto) 11.88 H (1.8-7.7) 10^3/uL [place] # (Auto) 1.3 H (0.2-0.9) 10^3/uL Potassium 3.1 L (3.5-5.1) mmol/L Chloride 108 H (98-107) mmol/L Carbon Dioxide 30 H (22-29) mmol/L Creatinine 0.3 L (0.5-0.9) mg/dL GFR Calculation 226.9 H (90-130) mL/min Glucose 184 H (65-115) mg/dL POC Glucose (70-110) mg/dL Calculated Osmolality 308 H (285-295) mOsm/kg Calcium 7.6 L (8.5-10.5) mg/dL Total Protein 5.4 L (6.6-8.7) g/dL Albumin 2.4 L (3.5-5.2) g/dL Procalcitonin 0.77 H (0-0.5) ng/mL Vancomycin Trough (10-15) ug/mL 01/01/21 01/01/21 01/01/21 Range/Units 04:10 06:09 07:31 WBC (4.0-10.0) 10^3/uL RBC (4.1-5.3) 10^6/uL Hgb (11.5-15.3) g/dL Hct (37.0-47.0) % MCV (81-99) fL RDW (12.1-15.1) % MPV (7.4-10.4) fL Neut # (Auto) (1.8-7.7) 10^3/uL [place] # (Auto) (0.2-0.9) 10^3/uL ABG pH 7.47 H (7.35-7.45) ABG pCO2 46.6 H (35-45) mmHg ABG pO2 54.4 L (80.0-100.0) mmHg ABG HCO3 34.2 H (22-26) mmol/L ABG Base Excess 9.6 H (-2.0-2.0) mmol/L A-a O2 Gradient 13.6 H (5-10) mmHg Hematocrit 23.8 L (37-47) % Hgb O2 Saturation 87.9 L (95-100) % Total Hemoglobin 7.8 L (12-16) g/dL Sodium 154.0 H (131-143) mmol/L Potassium 3.3 L (3.5-5.1) mmol/L Micro: Microbiology 12/29/20 16:30 Gram Stain - Final Leg - #1 Wound Culture - Final 12/31/20 17:05 Legionella Urinary Antigen - Final Urine Catheterized 12/27/20 01:28 Blood Culture - Final Blood NO GROWTH AFTER 5 DAYS 12/31/20 18:46 Blood Culture - Preliminary Blood SPECIMEN COLLECTED 12/31/20 18:46 Blood Culture - Preliminary Blood SPECIMEN COLLECTED 12/29/20 08:25 Gram Stain - Final Sputum - Endotracheal Tube Aspirate Sputum Culture - Final Methicillin Resis Staph Aureus 12/27/20 00:46 Blood Culture - Preliminary Blood Group g streptococcus Microbiology 12/27/20 15:40 Blood Blood Culture - Final NO GROWTH AFTER 5 DAYS 12/27/20 15:41 Blood Blood Culture - Final NO GROWTH AFTER 5 DAYS 12/27/20 00:46 Blood Blood Culture - Final Group g streptococcus 12/29/20 16:30 Leg - #1 Gram Stain - Final 12/29/20 16:30 Leg - #1 Wound Culture - Final 12/31/20 17:05 Urine Catheterized Legionella Urinary Antigen - Final 12/27/20 01:28 Blood Blood Culture - Final NO GROWTH AFTER 5 DAYS 12/31/20 18:46 Blood Blood Culture - Preliminary SPECIMEN COLLECTED 12/31/20 18:46 Blood Blood Culture - Preliminary SPECIMEN COLLECTED 12/29/20 08:25 Sputum - Endotracheal Tube Aspirate Gram Stain - Final 12/29/20 08:25 Sputum - Endotracheal Tube Aspirate Sputum Culture - Final Methicillin Resis Staph Aureus 12/29/20 17:54 Blood Blood Culture - Preliminary NEGATIVE TO DATE 12/29/20 17:57 Blood Blood Culture - Preliminary NEGATIVE TO DATE 12/27/20 00:45 Unknown Source Legionella Urinary Antigen - Final A&P Assessment and plan (1) Streptococcal bacteremia: Status: Acute (2) Sepsis: Status: Acute Qualifiers: Sepsis acute organ dysfunction status: with acute organ dysfunction Sepsis type: Streptococcus, other Severe sepsis acute organ dysfunction type: encephalopathy Severe sepsis shock status: without septic shock Qualified Code(s): A40.8 - Other streptococcal sepsis; R65.20 - Severe sepsis without septic shock; G93.41 - Metabolic encephalopathy (3) Acute encephalopathy: Status: Acute (4) Methamphetamine use: Looks to be a longstanding means of managing pain for this patient on review of records and has led to not being able to be managed at at least our pain clinic here. Status: Chronic (5) Cellulitis: Bilateral lower extremities, left more significant than right. Status: Acute Qualifiers: Laterality: right Site of cellulitis: extremity Site of cellulitis of extremity: lower extremity Qualified Code(s): L03.115 - Cellulitis of right lower limb (6) Hypoxemia: Not chronically on oxygen, history of prior tobacco use, CTA with some emphysematous changes but otherwise unremarkable. Status: Acute (7) Diabetes mellitus, type II: Looks to chronically only be on Metformin, currently with hyperglycemia Status: Chronic Qualifiers: Diabetes mellitus complication detail: with other arthropathy Diabetes mellitus complication status: with diabetic arthropathy Diabetes mellitus longwall headgate operator insulin use: without intermediate use Qualified Code(s): E11.618 - Type 2 diabetes mellitus with other diabetic arthropathy (8) Hypertension: Chronically on Lasix and atenolol with potassium replacement Status: Chronic Qualifiers: Hypertension type: unspecified Qualified Code(s): I10 - Essential (primary) hypertension (9) Hyperlipidemia: Chronically on fenofibrate Status: Chronic Qualifiers: Hyperlipidemia type: unspecified Qualified Code(s): E78.5 - Hyperlipidemia, unspecified (10) Chronic pain: Looks to be chronically prescribed baclofen and gabapentin Status: Chronic Qualifiers: Chronic pain type: other chronic pain Qualified Code(s): G89.29 - Other chronic pain (11) Depression with anxiety: Looks to chronically be on Effexor and BuSpar Status: Acute (12) Tinea corporis: Status: Acute (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 Start patient on long-acting opiate with methadone 20 mg daily. Patient having the spells of agitation and hemodynamic instability including tachycardia and elevated blood pressure since starting methadone. Check NMDA receptor encephalitis from serum. If elevated will check in CSF. Still cannot rule out meningitis. Lumbar puncture could not be done or been after multiple attempts from city mail carrier and radiologist. Patient intubated overnight December 28, 2020. Daily sedation vacation. If needed can put patient on fentanyl and Precedex. No signs of seizures at present. If patient continues to remain disabled most likely requires an EEG. Streptococcal bacteremia Sepsis: Secondary to cellulitis and pneumonia: CT spine done yesterday negative for discitis, results appreciated on CT chest. No focus seen on CT abdomen. Meningitis cannot be ruled out as lumbar puncture could not be done though patient has been on appropriate antibiotics for more than 3 days without any improvement in mentation. COVID-19 negative on admission. No signs of osteomyelitis on admission on CT foot. Knee x-ray was done negative for any signs of effusion Cellulitis seems to be improving. Cannot be malignant hyperthermia CPK is negative, potassium is low, calcium is low while patient received paralyzing medications more than 48 hours ago. Keep mean arterial pressure over 65. Blood cultures from day of admission now 2 out of 4 sets positive for group B strep. Repeat blood culture preliminary negative. Sensitivities awaited. MRSA positive. Repeat blood cultures. Can be drug fevers so we will stop beta-lactam's. For now continue vancomycin which will cover for both strep and MRSA. Continue levofloxacin and Diflucan as per ID recommendations. Appreciate ID recommendations. Appreciate Dr. Garrido's and Dr. Winters input and help. Continue DuoNebs and budesonide twice daily. Wean Solu-Medrol to 40 mg IV daily for now. Echocardiogram results appreciated. Low suspicion for infective endocarditis. If blood cultures come back positive we will look for VIVEK. Patient overall 3 L negative in last 24 hours. Strict input output charting, daily weights. Elevated troponins: We will cycle troponin for 6 hours. Most likely secondary to demand ischemia from hypoxia overnight though cannot rule out non-ST elevation VT. Continue 81 mg aspirin daily. Repeat troponins. If lower than before can change the Lovenox to prophylactic dose. Stop statins given the lipid panel. Start patient on home dose of fenofibrate. Hypertriglyceridemia: Lipid panel results appreciated. Stop statins. Start home dose of fenofibrate Type 2 diabetes mellitus: Insulin sliding scale at moderate dose every 6 hours as patient is n.p.o. because of her mental status. Hypertension: Goal blood pressure less than 140/90 mmHg keeping mean arterial pressure over 65. Blood pressure soft today. We will continue to monitor. Full code. C/w Tube feeds Full dose Lovenox will also help with DVT prophylaxis. Patient's care discussed in detail with her son Odell Stanford on phone [phone]. Mr. Bain verbalizes understanding and has agreed to act the DPOA at he is the only next of kin available. Discussed that unfortunately patient is severely altered for last 4 days which could be because of multiple reasons. He verbalizes understanding. Critically ill, guarded prognosis for now. Continue with ICU care. Attestations Medical Necessity Statement*: Patient needs further hospitalization for management of acute encephalopathy, continued delirium, persistent fever, streptococcal bacteremia, acute opiate withdrawal. Critical Care Time: The high probability of a clinically significant, sudden or life threatening deterioration of the patient's COLD STORAGE SUPERVISOR, ID, cardiovascular system(s) required my full and direct attention, intervention and personal management. The critical care time is as shown. This time is in addition to time spent performing any reported procedures but includes the following: [x] Data and vital sign review and interpretation [x] Patient assessment, examination and intervention [x] Documentation [x] Medication orders and management Critical Care Time (min): 90 Coding Level of Care Code Acute Php Wordpress Developer for g Fwd Diagnoses Streptococcal bacteremia R78.81; B95.5 Sepsis A40.8; R65.20; G93.41 Sepsis acute organ dysfunction status: with acute organ dysfunction Sepsis type: Streptococcus, other Severe sepsis acute organ dysfunction type: encephalopathy Severe sepsis shock status: without septic shock Acute encephalopathy G93.40 Methamphetamine use F15.10 Cellulitis L03.115 Laterality: right Site of cellulitis: extremity Site of cellulitis of extremity: lower extremity Hypoxemia R09.02 Diabetes mellitus, type II E11.618 Diabetes mellitus complication detail: with other arthropathy Diabetes mellitus complication status: with diabetic arthropathy Diabetes mellitus longwall headgate operator insulin use: without longwall headgate operator use Hypertension I10 Hypertension type: unspecified Hyperlipidemia E78.5 Hyperlipidemia type: unspecified Chronic pain G89.29 Chronic pain type: other chronic pain Depression with anxiety F41.8 Tinea corporis B35.4 Pjwzmgg-Lmhuf-Vqeze disease-like deformity of foot G60.0 Thrush B37.0 Opiate withdrawal F11.23
[2021-01-01 11:41] LABS: Creatine Phosphokinase 63 U/L (26-192)
[2021-01-01] MEDS: dexmedetomidine 400 MCG in sodium chloride 0.9% (100 ml) 100 ML 22.3 MCG IV ×3 (11:59→20:43)
[2021-01-01] MEDS: potassium chloride oral liq 20 mEq/15 mL UDC 80 MEQ PO (12:05)
[2021-01-01] MEDS: iron sucrose 200 MG in sodium chloride 0.9% (100 ml) 100 ML 220 MG IV (12:48)
[2021-01-01 12:54] LABS: Glucose Point of Care 279 mg/dL (70-110)
--- NOTE | 2021-01-01 12:58 | PC.CHAP ---
Pastoral Care Encounter/Spiritual Assessment Type of Contact [] Declined flow coordinator visit [X] Patient/Family/Request visit [] Outpatient visit [] Follow-up visit [] Physician referral [] Code/Alert [] Routine visit [] Staff referral [] Actively dying [] Patient sleeping [] Family support [] [] Out of room [] Palliative care [] [] Receiving care in room [] Pre-surgical visit [] Trauma [] Long length of stay [] ICU visit [] Other: Relational/Emotional Strength [] Patient feels connected with others/family/visitors/staff [] Distress [] Loneliness/isolation [] Abandonment Spirituality of Patient [] Person of Amee [] Attends Muslim of their Amee [] Believes in Prayer [] Reads Bible or Sabianism materials [] There are Spiritual issues to be addressed Material Control Analyst Interventions [] Prayer [] Active listening [] Non-anxious presence [] Spiritual/emotional support [] Crisis/trauma care [] Spiritual counseling [] Bereavement support [] Provided bereavement packet [] Provided Bible/devotional materials [] Provided toy/stuffed animal, coloring book to patient or family member [] Provided Communion [] Anointing/[place] [] Salvation [] Completed spiritual assessment [] Other: Impact on Illness or Injury [] Angry [] Fearful [] Anxious [] Often cries [] Exhaustion [] Unable to work [] Unable to attend zoroastrian [] Unable to walk/stand [] Unable to read [] Unable to drive [] Unable to eat/drink [] Unable to sleep [] Unable to be with family [] Patient intubated [] Other: Summary Pt unable to communicate. Prayer completed outside of room Time spent with patient 2min<
[2021-01-01] MEDS: levofloxacin-dextrose 5 % 750 MG/150 ML PREMIX 100 MG IV (15:56)
--- NOTE | 2021-01-01 16:21 | USCV_ITS ---
Polina Snyder Age: 60 Gender: F : 1960 Exam Date: 01/01/2021 05:00 Ordering Phys: Eduardo Pineda MD Technologist: Jackie Nance [place] [facility] [place]: IE BP: 153 / 74 HR: 82 Rhythm: Sinus Technical Quality: Technically difficult study MEASUREMENTS (Male / Female) Normal Values 2D ECHO LV Diastolic Diameter PLAX 3.3 cm 4.2 - 5.9 / 3.9 - 5.3 cm LV Systolic Diameter PLAX 2.0 cm LV Chamber Size 2.6 cm IVS Diastolic Thickness 1.9 cm 0.6 - 1.0 / 0.6 - 0.9 cm IVS Systolic Thickness 2.0 cm LVPW Diastolic Thickness 1.6 cm 0.6 - 1.0 / 0.6 - 0.9 cm LVPW Systolic Thickness 1.6 cm RV Chamber Size 2.6 cm LVOT Diameter 2.0 cm LV Ejection Fraction 2D Teich 69.4 % LA Diameter 4.5 cm LA Width 3.3 cm LA Height 5.5 cm RA Width 3.0 cm RA Height 3.8 cm Aorta at Sinotubular Diameter 3.1 cm M-MODE LV Diastolic Diameter MM 3.9 cm 4.2 - 5.9 / 3.9 - 5.3 cm LV Systolic Diameter MM 2.1 cm LV Ejection Fraction MM Teich 77.9 % IVS Diastolic Thickness MM 1.5 cm 0.6 - 1.0 / 0.6 - 0.9 cm IVS Systolic Thickness MM 1.6 cm LVPW Diastolic Thickness MM 1.4 cm 0.6 - 1.0 / 0.6 - 0.9 cm LVPW Systolic Thickness MM 2.0 cm RV Diastolic Diameter MM 2.2 cm Aortic Annulus Diameter 3.3 cm LA Ao Ratio MM 1.7 MV E Point Septal Separation 0.3 cm DOPPLER AV Peak Velocity 249.0 cm/s LVOT Peak Velocity 173.0 cm/s AV Area Cont Eq vti 2.2 cm squared AV Area Cont Eq pk 2.3 cm squared MV Area PHT 3.7 cm squared Mitral E to A Ratio 0.8 MV E' Velocity 50.5 cm/s Mitral E to MV E' Ratio 5.8 Mitral E to LV E' Lateral Ratio 7.4 Mitral E to LV E' Septal Ratio 4.8 TR Peak Velocity 280.6 cm/s TR Peak Gradient 31.5 mmHg TR Mean Velocity 182.3 cm/s TR Mean Gradient 17.2 mmHg TR Velocity Time Integral 77.1 cm TV Peak E Velocity 49.0 cm/s Right Atrial Pressure 15.0 mmHg Pulmonary Artery Systolic Pressu 46.5 mmHg PV Peak Velocity 105.0 cm/s RV Acceleration Time 0.2 s RV Ejection Time 0.4 s RV AcT/ET 0.5 FINDINGS Left Ventricle Normal left ventricular size and systolic function, EF 65%.no regional wall motion abnormalities. Grade I/IV diastolic dysfunction (abnormal relaxation filling pattern), normal to mildly elevated filling .pressures. Mild left ventricular hypertrophy. Right Ventricle The right ventricle is normal in size and function. Right Atrium The right atrium is normal in size. Left Atrium Mildly increased left atrial size. Mitral Valve No gross abnormalities noted Aortic Valve Thickened aortic valve. Mild aortic valve regurgitation. Tricuspid Valve Mild tricuspid valve regurgitation. The leaflet morphology could not be delineated well. No gross abnormalities noted Pulmonic Valve Trace to mild pulmonary valve regurgitation. Pericardium Normal pericardium without effusion. Aorta Normal ascending aorta dimension. CONCLUSIONS Normal left ventricular size and systolic function, EF 65%.no regional wall motion abnormalities. Grade I/IV diastolic dysfunction (abnormal relaxation filling pattern), normal to mildly elevated filling pressures. Mild concentric left ventricular hypertrophy Mild tricuspid valve regurgitation. The tricuspid leaflet morphology could not be delineated well. No gross abnormalities noted. Thickened aortic valve. Mild aortic valve regurgitation. Mildly increased left atrial size. There is no pericardial effusion. There are no obvious intracardiac masses. Technically somewhat limited study. Possibly no significant change from the study on 12/27/2020 Consider VIVEK, if clinically indicated Dr Pat Whitley MD [facility] (Electronically Signed) Final Date: 01 January 2021 09:14 S
[2021-01-01 17:43] LABS: Glucose Point of Care 346 mg/dL (70-110)
[2021-01-01 20:48] LABS: Glucose Point of Care 264 mg/dL (70-110)
--- NOTE | 2021-01-01 22:29 | PM.PN ---
Subjective Subjective: Interval history: Continues to be febrile to 103F, leukocytosis trending down, remains intubated, sedated Medications: Reviewed: Yes Vitals/I&O/Wt Last Vital Signs Temp 99.8 F H 01/01/21 19:40 Pulse 102 H 01/01/21 21:00 Resp 15 01/01/21 20:48 BP 173/76 01/01/21 21:00 Pulse Ox 98 01/01/21 21:00 01/01/21 01/01/21 01/01/21 06:59 14:59 22:59 Intake Total 1672.475 / 2729.765 877.333 / 334.309 6464.754 / 1992.087 Output Total 850 / 3700 1350 / 1350 Balance 822.475 / -970.235 877.333 / 877.333 -235.246 / 642.087 Weight last 48 hrs Weight 101.968 kg Physical Exam Narrative: EXAM NARRATIVE: GEN: Intubated, sedated HEENT: ETT in place, no nicky purulence, oral thrush noted CVS: S1S2 N, tachycardia+ RS: CTA B/L, crackles over right lung base Abd: Soft, nt/nd , bs+ SODA FLAKER: Unable to asess EXT: RLE with chronic lymphedema associated skin changes, changes appear to be related to stasis dermatitis, at this time cellulitis appears to be improving, Right foot with dressing in place, blood soaking noted. RIght knee s/p replacement, no gross swelling noted at any joints Urinary Catheter Management^: Garber: Cath Placed During This Visit: yes Reason for Continuing Indwelling Catheter: Accurate Measurement of Urinary Output in Critically Ill Patients Urinary Catheter Date of Insertion: 12/27/20 Urinary Catheter Time of Insertion: 00:51 Data : 01/03/21 03:29 01/03/21 03:29 Micro: Microbiology 12/31/20 18:46 Blood Culture - Preliminary Blood NEGATIVE TO DATE 12/31/20 18:46 Blood Culture - Preliminary Blood NEGATIVE TO DATE 01/01/21 09:39 Cryptococcal Antigen - Final Cerebrospinal Fluid 12/27/20 15:40 Blood Culture - Final Blood NO GROWTH AFTER 5 DAYS 12/27/20 15:41 Blood Culture - Final Blood NO GROWTH AFTER 5 DAYS 12/27/20 00:46 Blood Culture - Final Blood Group g streptococcus 12/29/20 16:30 Gram Stain - Final Leg - #1 Wound Culture - Final 12/31/20 17:05 Legionella Urinary Antigen - Final Urine Catheterized 12/27/20 01:28 Blood Culture - Final Blood NO GROWTH AFTER 5 DAYS A&P Assessment and plan (1) Sepsis: Status: Acute Qualifiers: Sepsis type: Streptococcus, other Sepsis acute organ dysfunction status: with acute organ dysfunction Severe sepsis acute organ dysfunction type: encephalopathy Severe sepsis shock status: without septic shock Qualified Code(s): A40.8 - Other streptococcal sepsis; R65.20 - Severe sepsis without septic shock; G93.41 - Metabolic encephalopathy (2) Streptococcal bacteremia: Status: Acute (3) Thrush: Status: Acute (4) Hypoxemia: Status: Acute (5) Cellulitis: Status: Acute Qualifiers: Site of cellulitis: extremity Site of cellulitis of extremity: lower extremity Laterality: right Qualified Code(s): L03.115 - Cellulitis of right lower limb (6) Acute encephalopathy: Status: Acute (7) Diabetes mellitus, type II: Status: Chronic Qualifiers: Diabetes mellitus shelter insulin use: without adjunct faculty for medical terminology use Diabetes mellitus complication status: with diabetic arthropathy Diabetes mellitus complication detail: with other arthropathy Qualified Code(s): E11.618 - Type 2 diabetes mellitus with other diabetic arthropathy Additional A&P Information Ms. Snyder is a 60-year-old female with complicated past medical history, currently admitted since December 27, 2020 after presenting with altered mental status of unclear etiology. Thus far work-up has been significant for presence of streptococcal bacteremia, unclear source, however could be skin source from lower extremity cellulitis versus respiratory source from developing pneumonia. Hospital course has also been complicated by acute hypoxic respiratory failure resulting in emergent intubation, currently on mechanical ventilation. #Streptococcal septicemia #MRSA pneumonia #Encephalopathy, can be metabolic encephalopathy from sepsis -Blood culture noted to be positive for group G streptococcus from day of admission, subsequent blood cultures have not revealed any growth. Unclear source of septicemia at this present time, potential sources could be lower extremity cellulitis. Patient is noted to have chronic lymphedema with changes of stasis dermatitis affecting both lower extremities. Right leg does have more prominent changes on the left side. There was noted to be cellulitis on the right lower extremity, which appears to be improving per review of chart notes. No gross edema, warmth or tenderness noted at the right knee joint which is status post replacement. No other gross joint swelling noted. There is small ulceration over the right heel, pictures of which have been reviewed from the podiatry note, appears to be chronic in appearance. No underlying osteomyelitis noted on CT. Even if present, chronic osteomyelitis is highly unlikely to be the source of current sepsis. Patient is noted to be edentulous, very poor oral hygiene, thrush noted in the mouth. Group C streptococcus could be of oropharyngeal origin as well. CT of lumbosacral spine negative fo osteomyelitis/discitis/epidural abscess Also has been on vancomycin since admission which covers for Streptococcus. Recommend discontinuing imipenem as vancomycin will appropriately cover for streptococcus and MRSA at this time. Interim admission events have included intubation for acute hypoxic respiratory failure with development of bilateral infiltrates in both chest. This could represent worsening pneumonia, especially MRSA pneumonia given that sputum culture is positive for this agent. Other possible differentials include COVID-19 pneumonia, though PCR and antigen were negative upon admission. Possibility of septic embolization from bacteremia remains a possibility, TTE negative for vegetations. Viral pneumonitis could present similarly, respiratory viral panel taken and remains pending. Patient has been started on steroids upon admission due to concern for poor respiratory status and noted wheezing on exam. Though I do not see any chronic steroids listed on her home medications, possibility of disseminated strongyloidosis needs to be considered, check strongyloidiasis antibody for the same. Unlikely to be pneumocystis pneumonitis as there were no infiltrates on day of admission, unlikely for the latter condition to develop within 3 days in a patient who has not otherwise been on long-term steroids and is HIV negative. Acute encephalopathy, present since admission, likely related to metabolic encephalopathy from sepsis. Cannot exclude possibility of bacterial meningitis. LP was unable to be performed in spite of attempts by assurance specialist and radiology, likely contributed by body habitus. CT head negative. No gross improvement with trial of acyclovir over 48 hours. Given otherwise evidence of ongoing bacterial infection, less likely that herpes encephalitis as a result of mental status changes. Agree with discontinuing acyclovir. Non infectious differentials include status epilepticus versus opioid withdrawal. serum cryptococcal antigen pending check serum RPR HIV status negative Oral thrush: Continue Fluconazole 100mg po daily x 10 days Attestations Medical Necessity Statement*: per admitting team Coding Level of Care Code Acute Title Checker for Chg Fwd Diagnoses Sepsis A40.8; R65.20; G93.41 Sepsis type: Streptococcus, other Sepsis acute organ dysfunction status: with acute organ dysfunction Severe sepsis acute organ dysfunction type: encephalopathy Severe sepsis shock status: without septic shock Streptococcal bacteremia R78.81; B95.5 Thrush B37.0 Hypoxemia R09.02 Cellulitis L03.115 Site of cellulitis: extremity Site of cellulitis of extremity: lower extremity Laterality: right Acute encephalopathy G93.40 Diabetes mellitus, type II E11.618 Diabetes mellitus adjunct faculty for medical terminology insulin use: without shelter use Diabetes mellitus complication status: with diabetic arthropathy Diabetes mellitus complication detail: with other arthropathy
[2021-01-02] VITALS (62 sets, daily range): BP systolic 124–201; BP diastolic 51–102; PULSE 68–113; RESP 12–22; TEMP 37.2–39.1; O2SAT 92–99
[2021-01-02] MEDS: HYDROmorphone 1 mg/mL INJ 1 mL IVP ×2 (00:44→13:19)
[2021-01-02 00:50] LABS: Glucose Point of Care 231 mg/dL (70-110)
[2021-01-02] MEDS: dexmedetomidine 400 MCG in sodium chloride 0.9% (100 ml) 100 ML 24.8 MCG IV ×5 (01:26→18:16)
[2021-01-02] MEDS: ipratropium-albuterol 3 mL Neb INHALATION ×4 (03:23→19:59)
[2021-01-02] MEDS: vancomycin 1,500 MG/300 ML PIGGYBACK 200 MG IV ×3 (03:35→18:16)
[2021-01-02 04:43] LABS: Alanine Aminotransferase 11 U/L (0-33); Albumin Level 2.6 g/dL (3.5-5.2); Alkaline Phosphatase 84 IU/L (35-105); Aspartate Amino Transferase 13 U/L (0-32); Blood Urea Nitrogen 17 mg/dL (8-23); Calcium 8.1 mg/dL (8.5-10.5); Carbon Dioxide 34 mmol/L (22-29); Chloride 111 mmol/L (98-107); Globulin 3.1 g/dL (1.3-4.6); Glomerular Filtration Rate 226.9 mL/min (90-130); Glucose 189 mg/dL (65-115); Osmolality Calculated 317 mOsm/kg (285-295); Sodium 150 mmol/L (136-145); Total Bilirubin 0.4 mg/dL (0.15-1.2); Total Protein 5.7 g/dL (6.6-8.7)
[2021-01-02 04:50] LABS: Anion Gap 9.1 (5-19); Potassium 4.1 mmol/L (3.5-5.1)
[2021-01-02 04:51] LABS: ABG PH Result 7.47 (7.35-7.45); Alveolar-Arterial Oxygen Gradi 17.3 mmHg (5-10); Arterial Blood Gas Hematocrit 30.7 % (37-47); Base Excess ABG 10.2 mmol/L (-2.0-2.0); Blood Gas Sample Site Brachial, right; Blood Gas Sample Type Arterial; Blood Gas Tidal Volume 0.45; Carboxyhemoglobin 0.9 %THgb (0.4-20.1); HCO3 ABG 35.3 mmol/L (22-26); HGB O2 Sat 96.3 % (95-100); Ionized Calcium Level - ABG 1.2 mmol/L (1.1-1.4); Oxygen Device VENT; Oxygen Saturation ABG 98.2; PO2 ABG 94.2 mmHg (80.0-100.0); Potassium Level - ABG 3.9 mmol/L (3.5-5.0)
[2021-01-02 04:52] LABS: Basophils % 0.2 %; Eosinophils % 0.1 %; Hematocrit 25.1 % (37.0-47.0); Hemoglobin 7.7 g/dL (11.5-15.3); Lymphocytes # 1.5 10^3/uL (0.8-4.8); Lymphocytes % 9.2 %; Mean Corpuscular HGB Conc 30.7 g/dL (30.0-36.0); Mean Corpuscular Hemoglobin 30.6 pg (28.0-34.0); Mean Corpuscular Volume 99.6 fL (81-99); Mean Platelet Volume 11.6 fL (7.4-10.4); Monocytes # 1.2 10^3/uL (0.2-0.9); Monocytes % 7.3 %; Neutrophils # 12.25 10^3/uL (1.8-7.7); Neutrophils % 75.5 %; Nucleated Red Blood Cells # 0.1 /100WBC; Nucleated Red Blood Cells % 0.7 %; Platelet Count 232 10^3/cmm (130-400); Red Blood Count 2.52 10^6/uL (4.1-5.3); Red Cell Distribution Width 16.5 % (12.1-15.1); White Blood Count 16.2 10^3/uL (4.0-10.0)
[2021-01-02 06:01] LABS: Slide Review Slide Review Perform
[2021-01-02] MEDS: famotidine 20 mg/2 mL INJ IVP ×2 (06:08→17:46)
[2021-01-02] MEDS: budesonide 0.5 mg/2 mL Neb INHALATION ×2 (08:01→19:51)
[2021-01-02] MEDS: fluconazole 100 mg Tablet NG-TUBE (08:47)
[2021-01-02] MEDS: nystatin powder 15 gm Btl 1 APPLIC TOPICAL ×2 (08:47→17:47)
[2021-01-02] MEDS: methadone 10 mg Tablet 20 MG PO (08:47)
[2021-01-02] MEDS: aspirin 81 mg EC Tablet PO (08:47)
--- NOTE | 2021-01-02 09:34 | PC.CHAP ---
Pastoral Care Encounter/Spiritual Assessment Type of Contact [] Declined textile chemist visit [] Patient/Family/Request visit [] Outpatient visit [] Follow-up visit [] Physician referral [] Code/Alert [x] Routine visit [] Staff referral [] Actively dying [] Patient sleeping [] Family support [] [] Out of room [] Palliative care [] [] Receiving care in room [] Pre-surgical visit [] Trauma [] Long length of stay [x] ICU visit [] Other: Relational/Emotional Strength [] Patient feels connected with others/family/visitors/staff [] Distress [] Loneliness/isolation [] Abandonment Spirituality of Patient [] Person of Amee [] Attends Scientologist of their Amee [] Believes in Prayer [] Reads Bible or Latter-Day materials [] There are Spiritual issues to be addressed Academic Guidance Specialist Interventions [x] Prayer [] Active listening [] Non-anxious presence [] Spiritual/emotional support [] Crisis/trauma care [] Spiritual counseling [] Bereavement support [] Provided bereavement packet [] Provided Bible/devotional materials [] Provided toy/stuffed animal, coloring book to patient or family member [] Provided Communion [] Anointing/[place] [] Salvation [x] Completed spiritual assessment [] Other: Impact on Illness or Injury [] Angry [] Fearful [] Anxious [] Often cries [] Exhaustion [] Unable to work [] Unable to attend quaker [] Unable to walk/stand [] Unable to read [] Unable to drive [] Unable to eat/drink [] Unable to sleep [] Unable to be with family [] Patient intubated [] Other: Summary Time spent with patient
--- NOTE | 2021-01-02 09:53 | PM.PN ---
Subjective Subjective: Interval history: Patient seen today morning. Continues to spike fevers going up to 101.8 Fahrenheit overnight. Has remained hemodynamically stable. Patient continues to be altered. Currently on examination 30% FiO2 with tidal volume of 450, PEEP of 8. On examination she is on fentanyl and Precedex with heart rate of 88 bpm and blood pressure 142/80 mmHg. Hemodynamics have been a lot better after starting methadone but patient continues to spike fever and remain altered. Medications: Reviewed: Yes Medication Review Details: The above medication list have not been confirmed as we are unable to get information directly from the patient this evening. Review of external medication reconciliation shows medications filled within the last 3 months include baclofen, Effexor, atenolol, fenofibrate, Metformin, Ventolin, gabapentin, BuSpar, Lasix and potassium. It looks like she has also had antibiotics for Keflex, most recently November 23, clindamycin and is also been prescribed Silvadene cream and ketoconazole topical in the last few months. Last narcotic prescription that I see filled on what we can access here was oxycodone filled in March of last year which is around the time that she could no longer get narcotics prescribed by pain clinic physician here. Vitals/I&O/Wt Last Vital Signs Temp 101.1 F H 01/02/21 09:00 Pulse 95 01/02/21 09:00 Resp 15 01/02/21 09:00 BP 180/81 01/02/21 09:00 Pulse Ox 94 01/02/21 09:00 01/01/21 01/02/21 01/02/21 22:59 06:59 14:59 Intake Total 1414.754 / 2292.087 590.28 / 2882.367 1160 / 1160 Output Total 1350 / 1350 250 / 1600 Balance 64.754 / 942.087 340.28 / 0384.883 9321 / 1160 Physical Exam Narrative: EXAM NARRATIVE: General: Altered, and currently moving both her arms, not responding to any kind of commands, pupils bilaterally reactive, not concentrating removed. HEENT: PERRLA, Chest: Normal vesicular breath sounds, coarse crackles present in bilateral upper zone more than the right, rhonchi bilaterally, equal good air entry bilaterally CVS: S1-S2 regular, no murmurs, no tachycardia, no gallops, no rubs Abdomen: Soft, nontender, no organomegaly, bowel sounds present Neuro: No focal deficits, no facial deformity, AO x3, moving all 4 limbs Skin: OTHER: Erythema noted under both breasts left greater than right, some scattered petechiae on the upper chest. There is erythema with satellite lesions in both groins. Both lower extremities with erythema and warmth from knee to foot right much more prominent than the left. There is a small dime sized bruise upper outer calf. She has skin breakdown on the right heel and the left forefoot present on admission. There is a scab sore to the right great toe. There are other scabbed sores to both lower extremities. No oozing currently Urinary Catheter Management^: Garber: Cath Placed During This Visit: yes Reason for Continuing Indwelling Catheter: Accurate Measurement of Urinary Output in Critically Ill Patients Urinary Catheter Date of Insertion: 12/27/20 Urinary Catheter Time of Insertion: 00:51 Data : 01/02/21 03:46 01/02/21 14:22 Other Labs: Abnormal lab results 01/02/21 01/02/21 01/02/21 Range/Units 03:46 03:46 04:45 WBC 16.2 H (4.0-10.0) 10^3/uL RBC 2.52 L (4.1-5.3) 10^6/uL Hgb 7.7 L (11.5-15.3) g/dL Hct 25.1 L (37.0-47.0) % MCV 99.6 H (81-99) fL RDW 16.5 H (12.1-15.1) % MPV 11.6 H (7.4-10.4) fL Neut # (Auto) 12.25 H (1.8-7.7) 10^3/uL [place] # (Auto) 1.2 H (0.2-0.9) 10^3/uL ABG pH 7.47 H (7.35-7.45) ABG pCO2 49.0 H (35-45) mmHg ABG HCO3 35.3 H (22-26) mmol/L ABG Base Excess 10.2 H (-2.0-2.0) mmol/L A-a O2 Gradient 17.3 H (5-10) mmHg Hematocrit 30.7 L (37-47) % Total Hemoglobin 10.0 L (12-16) g/dL Sodium 150 H 152.0 H (136-145) mmol/L Chloride 111 H (98-107) mmol/L Carbon Dioxide 34 H (22-29) mmol/L Creatinine 0.3 L (0.5-0.9) mg/dL GFR Calculation 226.9 H (90-130) mL/min Glucose 189 H 216.0 H (65-115) mg/dL POC Glucose (70-110) mg/dL Calculated Osmolality 317 H (285-295) mOsm/kg Calcium 8.1 L (8.5-10.5) mg/dL Total Protein 5.7 L (6.6-8.7) g/dL Albumin 2.6 L (3.5-5.2) g/dL 01/02/21 01/02/21 Range/Units 11:34 14:22 Sodium 146 H (136-145) mmol/L Chloride 108 H (98-107) mmol/L Carbon Dioxide 33 H (22-29) mmol/L Creatinine 0.3 L (0.5-0.9) mg/dL GFR Calculation 226.9 H (90-130) mL/min Glucose 309 H (65-115) mg/dL POC Glucose 263 H (70-110) mg/dL Calculated Osmolality 315 H (285-295) mOsm/kg Calcium 8.2 L (8.5-10.5) mg/dL Impressions Head CT 12/27/20 00:35 IMPRESSION: No acute intracranial abnormality. Radiation Dose CTDIVOL = (mGy): DLP = 1452.71 (mGy-cm) Chest CTA 12/27/20 01:34 IMPRESSION: 1. Mild patient motion. No pulmonary embolus is seen. 2. Mild emphysema Radiation Dose CTDIVOL = (mGy): DLP = 617.12 (mGy-cm) Abdomen/Pelvis CT 12/27/20 02:48 IMPRESSION: 1. No acute findings. Negative for adenopathy. 2. Fatty change is present liver. 3. The uterus is surgically absent. Radiation Dose CTDIVOL = (mGy): DLP = 1820.1 (mGy-cm) Foot CT 12/27/20 02:48 IMPRESSION: No evidence of osteomyelitis is seen. No fracture is present. Changes of cellulitis are seen. Radiation Dose CTDIVOL = (mGy): DLP = 391.66 (mGy-cm) Knee X-Ray 12/28/20 15:54 Impression: Right knee arthroplasty. Foot X-Ray 12/29/20 15:56 IMPRESSION: 1. No acute fractures in the right foot. 2. Diffuse soft tissue swelling of the right lower extremity. 3. 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 Cervical Spine CT 12/30/20 09:29 IMPRESSION: 1. Prior extensive postoperative changes anterior cervical fusion with dorsal posterior element instrumentation extending into the upper thoracic spine. 2. Anterior cervical fusion with corpectomy at C5-C7. Corpectomy at C6. 3. No evidence of high-grade central canal stenosis. Spinal canal has been decompressed. 4. No evidence of epidural abscess or discitis. 5. Slight anterolisthesis C3 on C4 and C4 on C5. 6. Endotracheal tube and enteric tube. Head/Neck CTA 12/30/20 09:29 IMPRESSION: 1. Less than 50% ICA stenosis bilaterally. Both ICAs are patent to the skull base. 2. Normal intracranial CTA. No flow-limiting stenosis. 3. Codominant and patent vertebral arteries bilaterally. 4. Cervical spine described on the cervical spine CT. No evidence of discitis/osteomyelitis or epidural abscess. 5. Patchy infiltrates in the right greater than left upper lobe consistent with pneumonia. Lumbar Spine CT 12/30/20 09:29 IMPRESSION: 1. Mild lumbar curve. Advanced spondylitic changes lumbar spine. 2. Severe central canal stenosis L3-L4 and L4-L5 worse L4-5. Slight anterolisthesis L4 on L5. 3. No evidence of discitis or epidural abscess. 4. Multilevel foraminal narrowing described above. 5. Advanced facet arthropathy worse at L4-5 and L5-S1. Thoracic Spine CT 12/30/20 09:29 IMPRESSION: 1. Mild thoracic curve convex right. Mild thoracic kyphosis. Anterior hypertrophic changes thoracic spine. 2. No evidence of discitis or epidural abscess. 3. No high-grade central canal stenosis. Mild central canal stenosis T9-T10, T10-T11, and moderate T12-L1. 4. Mild to moderate bony foraminal narrowing described above. 5. Small bilateral pleural effusions compressive atelectasis in the lung bases. 6. Patchy interstitial and air space infiltrates in the right greater than left upper lobes consistent with pneumonia. Chest/Abdomen/Pelvis CT 12/30/20 09:32 IMPRESSION: 1. Small bilateral pleural effusions compressive atelectasis new from previous. 2. Patchy interstitial and airspace infiltrates in the perihilar regions and both upper lobes right greater than left also new from December 27, 2020. Findings consistent with pneumonia. 3. Endotracheal tube and enteric tubes. 4. Diffuse fatty infiltration of the liver. 5. Small amount of free fluid in the pelvis. 6. Garber catheter in place. 7. Sigmoid diverticulosis. No evidence of acute diverticulitis. 8. Prior hysterectomy. 9. No acute abdominal or pelvic findings. Chest X-Ray 01/01/21 06:00 IMPRESSION: Improving bilateral interstitial pneumonia. Micro: Microbiology 01/01/21 14:33 Urine Culture - Preliminary Urine Catheterized 12/31/20 18:46 Blood Culture - Preliminary Blood NEGATIVE TO DATE 12/31/20 18:46 Blood Culture - Preliminary Blood NEGATIVE TO DATE 01/01/21 09:39 Cryptococcal Antigen - Final Cerebrospinal Fluid 12/27/20 15:40 Blood Culture - Final Blood NO GROWTH AFTER 5 DAYS 12/27/20 15:41 Blood Culture - Final Blood NO GROWTH AFTER 5 DAYS 12/27/20 00:46 Blood Culture - Final Blood Group g streptococcus 12/29/20 16:30 Gram Stain - Final Leg - #1 Wound Culture - Final Microbiology 01/01/21 14:33 Urine Catheterized Urine Culture - Preliminary 12/31/20 18:46 Blood Blood Culture - Preliminary NEGATIVE TO DATE 12/31/20 18:46 Blood Blood Culture - Preliminary NEGATIVE TO DATE 01/01/21 09:39 Cerebrospinal Fluid Cryptococcal Antigen - Final 12/27/20 15:40 Blood Blood Culture - Final NO GROWTH AFTER 5 DAYS 12/27/20 15:41 Blood Blood Culture - Final NO GROWTH AFTER 5 DAYS 12/27/20 00:46 Blood Blood Culture - Final Group g streptococcus 12/29/20 16:30 Leg - #1 Gram Stain - Final 12/29/20 16:30 Leg - #1 Wound Culture - Final 12/31/20 17:05 Urine Catheterized Legionella Urinary Antigen - Final 12/27/20 01:28 Blood Blood Culture - Final NO GROWTH AFTER 5 DAYS 12/29/20 08:25 Sputum - Endotracheal Tube Aspirate Gram Stain - Final 12/29/20 08:25 Sputum - Endotracheal Tube Aspirate Sputum Culture - Final Methicillin Resis Staph Aureus 12/29/20 17:54 Blood Blood Culture - Preliminary NEGATIVE TO DATE 12/29/20 17:57 Blood Blood Culture - Preliminary NEGATIVE TO DATE 12/27/20 00:45 Unknown Source Legionella Urinary Antigen - Final A&P Assessment and plan (1) Streptococcal bacteremia: Status: Acute (2) Sepsis: Status: Acute Qualifiers: Sepsis acute organ dysfunction status: with acute organ dysfunction Sepsis type: Streptococcus, other Severe sepsis acute organ dysfunction type: encephalopathy Severe sepsis shock status: without septic shock Qualified Code(s): A40.8 - Other streptococcal sepsis; R65.20 - Severe sepsis without septic shock; G93.41 - Metabolic encephalopathy (3) Acute encephalopathy: Status: Acute (4) Methamphetamine use: Looks to be a longstanding means of managing pain for this patient on review of records and has led to not being able to be managed at at least our pain clinic here. Status: Chronic (5) Cellulitis: Bilateral lower extremities, left more significant than right. Status: Acute Qualifiers: Laterality: right Site of cellulitis: extremity Site of cellulitis of extremity: lower extremity Qualified Code(s): L03.115 - Cellulitis of right lower limb (6) Hypoxemia: Not chronically on oxygen, history of prior tobacco use, CTA with some emphysematous changes but otherwise unremarkable. Status: Acute (7) Diabetes mellitus, type II: Looks to chronically only be on Metformin, currently with hyperglycemia Status: Chronic Qualifiers: Diabetes mellitus complication detail: with other arthropathy Diabetes mellitus complication status: with diabetic arthropathy Diabetes mellitus correction insulin use: without correction use Qualified Code(s): E11.618 - Type 2 diabetes mellitus with other diabetic arthropathy (8) Hypertension: Chronically on Lasix and atenolol with potassium replacement Status: Chronic Qualifiers: Hypertension type: unspecified Qualified Code(s): I10 - Essential (primary) hypertension (9) Hyperlipidemia: Chronically on fenofibrate Status: Chronic Qualifiers: Hyperlipidemia type: unspecified Qualified Code(s): E78.5 - Hyperlipidemia, unspecified (10) Chronic pain: Looks to be chronically prescribed baclofen and gabapentin Status: Chronic Qualifiers: Chronic pain type: other chronic pain Qualified Code(s): G89.29 - Other chronic pain (11) Depression with anxiety: Looks to chronically be on Effexor and BuSpar Status: Acute (12) Tinea corporis: Status: Acute (13) 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 Case discussed with Dr. Rosario and Dr. Delgado. Continue with methadone 20 mg daily, Dilaudid as needed. We will start adding some home muscle relaxants including venlafaxine and tizanidine today. Start patient on Zyprexa 2.5 mg twice daily. Clonidine added for blood pressure and will also help with opiate withdrawal. We will follow up encephalitis panel including NMDA panel and respiratory viral panel. It is quite possible that patient might take long time because he not really sure how much medications patient was using before admission. Still cannot rule out meningitis/encephalitis. Lumbar puncture could not be done or been after multiple attempts from cardiac rehabilitation specialist and radiologist. Patient intubated overnight December 28, 2020. Daily sedation vacation. If needed can put patient on fentanyl and Precedex. No signs of seizures at present. If patient continues to remain disabled most likely requires an EEG. Streptococcal bacteremia Sepsis: Secondary to cellulitis and pneumonia: CT spine done yesterday negative for discitis, results appreciated on CT chest. No focus seen on CT abdomen. Meningitis cannot be ruled out as lumbar puncture could not be done though patient has been on appropriate antibiotics for more than 3 days without any improvement in mentation. COVID-19 negative on admission. No signs of osteomyelitis on admission on CT foot. Knee x-ray was done negative for any signs of effusion Cellulitis seems to be improving. Cannot be malignant hyperthermia CPK is negative, potassium is low, calcium is low while patient received paralyzing medications more than 48 hours ago. Keep mean arterial pressure over 65. Blood cultures from day of admission now 2 out of 4 sets positive for group B strep. Repeat blood culture preliminary negative. Sensitivities awaited. MRSA positive. Repeat blood cultures. Can be drug fevers so we will stop beta-lactam's. For now continue vancomycin which will cover for both strep and MRSA. Continue levofloxacin and Diflucan as per ID recommendations. Appreciate Dr. Garrido's, Dr. Winters, Dr. Abraham Delgado's help and recommendations. Continue DuoNebs and budesonide twice daily. Stop Solu-Medrol. Echocardiogram results appreciated. Low suspicion for infective endocarditis. If blood cultures come back positive we will look for VIVEK. Patient overall 3 L negative in last 24 hours. Strict input output charting, daily weights. Hypernatremia: Increase free water flushes to 250 cc every 4 hours. Start patient on D5 at 50 cc an hour. Repeat BMP in afternoon. Elevated troponins: We will cycle troponin for 6 hours. Most likely secondary to demand ischemia from hypoxia overnight though cannot rule out non-ST elevation NE. Continue 81 mg aspirin daily. Repeat troponins. If lower than before can change the Lovenox to prophylactic dose. Stop statins given the lipid panel. Start patient on home dose of fenofibrate. Hypertriglyceridemia: Lipid panel results appreciated. Stop statins. Start home dose of fenofibrate Type 2 diabetes mellitus: Insulin sliding scale at moderate dose every 6 hours as patient is n.p.o. because of her mental status. Hypertension: Goal blood pressure less than 140/90 mmHg keeping mean arterial pressure over 65. Blood pressure soft today. We will continue to monitor. Add amlodipine 10 mg daily to clonidine. Avoid beta-ladonna in view of possible amphetamine abuse. Full code. C/w Tube feeds Full dose Lovenox will also help with DVT prophylaxis. Patient's care discussed in detail with her son Odell Stanford on phone [phone]. Mr. Bain verbalizes understanding and has agreed to act the DPOA at he is the only next of kin available. Discussed that unfortunately patient is severely altered for last 4 days which could be because of multiple reasons. He verbalizes understanding. He also verbalizes understanding is quite possible that patient might not wake up or become coherent and is difficult to say if and when she will improve. Critically ill, guarded prognosis for now. Continue with ICU care. Attestations Medical Necessity Statement*: Patient requires further hospitalization for management of acute encephalopathy most likely because of drug withdrawal, strep bacteremia, MRSA pneumonia. Critical Care Time: The high probability of a clinically significant, sudden or life threatening deterioration of the patient's TELEGRAPHIC TYPEWRITER INSTALLER, pulmonary, cardiovascular system(s) required my full and direct attention, intervention and personal management. The critical care time is as shown. This time is in addition to time spent performing any reported procedures but includes the following: [x] Data and vital sign review and interpretation [x] Patient assessment, examination and intervention [x] Documentation [x] Medication orders and management Critical Care Time (min): 90 Coding Level of Care Code Acute Bread Supervisor for [facility] Fwd Diagnoses Streptococcal bacteremia R78.81; B95.5 Sepsis A40.8; R65.20; G93.41 Sepsis acute organ dysfunction status: with acute organ dysfunction Sepsis type: Streptococcus, other Severe sepsis acute organ dysfunction type: encephalopathy Severe sepsis shock status: without septic shock Acute encephalopathy G93.40 Methamphetamine use F15.10 Cellulitis L03.115 Laterality: right Site of cellulitis: extremity Site of cellulitis of extremity: lower extremity Hypoxemia R09.02 Diabetes mellitus, type II E11.618 Diabetes mellitus complication detail: with other arthropathy Diabetes mellitus complication status: with diabetic arthropathy Diabetes mellitus correction insulin use: without long term care pharmacist use Hypertension I10 Hypertension type: unspecified Hyperlipidemia E78.5 Hyperlipidemia type: unspecified Chronic pain G89.29 Chronic pain type: other chronic pain Depression with anxiety F41.8 Tinea corporis B35.4 Iqxvlzc-Btthr-Wkmsr disease-like deformity of foot G60.0 Thrush B37.0 Opiate withdrawal F11.23
[2021-01-02] MEDS: enoxaparin 40 mg/0.4 mL Syringe SUBCUT (10:11)
[2021-01-02] MEDS: dextrose 5% 1,000 ML 50 ML IV (10:11)
[2021-01-02] MEDS: lactulose oral liq 20 gm/30 mL UDC 30 GM PO (10:12)
[2021-01-02 11:52] LABS: Glucose Point of Care 263 mg/dL (70-110)
--- NOTE | 2021-01-02 12:49 | P.CONIM_ITS ---
Providers/Reason For Consult Consulting Physican/Specialty*: Pulmonary critical care medicine Reason for Consult*: Critically ill patient with respiratory failure Attending Physician: Eduardo Pineda MD Primary Care Provider: Debbie Dietz DO History of Present Illness History of Present Illness Polina Snyder is a 60 year old female with a complicated past medical history. Patient is currently intubated and sedated in the ICU and the history was obtained from review of the medical record. Background information: The patient had surgical intervention for cervical spinal problems in the past and had been suffering from chronic pain. She used to be seen by the pain man agement team. She underwent spinal fusion of the cervical spine because of cervical stenosis. In April 2020, her urine tested positive for methamphetamine and subsequently the pain physician did not provide her with any more narcotic medications. The last office visit I can find is from April 2020. In addition to oxycodone that the patient was on at that time, she is also on tizanidine. According to medical record, the patient is also on baclofen however I do not find any record of that from the pain management physician's note. The patient also suffers from torticollis and was getting Botox injections. The patient carries a diagnosis of lung cancer. I do not have details of this but it appears that the patient had gotten radiation therapy for lung cancer. Review of her previous CT scan of the chest revealed a left upper lobe lung nodule which I am assuming was the cancer. The patient has significant the formation of bilateral lower extremity feet. The patient carries a diagnosis of Charcot foot. Her last A1c from December 2020 was 6.4. The patient is generally wheelchair-bound because of her joint deformity. The patient is likely an active smoker and smoking about a pack and a half a day. She also has hypertension and was on lisinopril 40 mg daily at home. This admission: The patient presented to the hospital on December 27 with encephalopathy. Her urine tox screen was positive for opioids and methamphetamine. The patient is on multiple SUPERVISOR DUMPING acting drugs and this was thought to be responsible for her altered mental status. She was also found to have bilateral lower extremity cellulitis. The patient received treatment with antibiotics. Over the next few days her mental status did not improve significantly. The patient likely suffered from aspiration pneumonia resulting in acute hypoxic respiratory failure and had gotten intubated on February 11. The patient then started developing fever. She was empirically treated for meningitis. Multiple attempts to obtain spinal fluid had failed. Post extubation chest radiography also revealed bilateral pulmonary infiltrate, endotracheal aspirate culture was positive for MRSA. The patient is currently on methadone for suspicion of opioid withdrawal. She has been suffering from intermittent episodes of agitation, tachypnea and tachycardia which seems to have settled down with the methadone. Currently, the patient is intubated and sedated with Precedex and fentanyl. She is not responsive at all although opens eyes intermittently. Her CT scan of the chest was negative for any intracranial pathology. CT scan of the chest abdomen and pelvis obtained on December 30 revealed bilateral small pleural effusion, patchy interstitial and airspace opacity bilaterally. Due to persistent fever, her antibiotic regimen was changed with concern for drug fever. Her echocardiogram from January 01 revealed normal ejection fraction of 65%, grade 1 diastolic dysfunction, mild enlarged left atrium. No significant valvular abnormalities. There is mild left ventricular hypertrophy. So overall this is a 60-year-old lady with multiple comorbidities including cervical spinal canal stenosis with spinal fusion, chronic pain, torticollis, left upper lobe lung cancer with unknown histology and treatment, wheelchair- bound due to Charcot foot, previous history of substance abuse who presented to the hospital with altered mental status in the setting of a positive opioid and methamphetamine urine toxicologic testing. In addition, the patient is on multiple SUPERVISOR DUMPING acting medications. In the hospital, her mental status did not improve rather she developed aspiration pneumonia, MRSA pneumonia. The patient has persistent fever at this point with the differential diagnosis including meningitis for which she had received treatment. One of her initial blood cultures are also positive for Streptococcus which was thought to be secondary to her bilateral lower extremity cellulitis. Her mental status has not improved in the hospital. Review of Systems Narrative: Unable to assess Meds/Allergies Home Medications and Allergies Home Medications Medication Instructions Recorded Confirmed Last Taken Type aspirin 325 mg tablet 325 mg PO BID 03/15/20 12/27/20 Unknown History atenolol 100 mg tablet 100 mg PO BID 03/15/20 12/27/20 Unknown History calcium carbonate 500 mg calcium 500 mg PO BID 03/15/20 12/27/20 Unknown History (1,250 mg) tablet cholecalciferol (vitamin D3) 1,250 1,250 mcg PO Q7D cap 03/15/20 12/27/20 Unknown History mcg (50,000 unit) capsule clonidine HCl 0.1 mg tablet 0.1 mg PO BID 03/15/20 12/27/20 Unknown History fenofibrate micronized 200 mg 200 mg PO BEDTIME cap 03/15/20 12/27/20 Unknown History capsule furosemide 40 mg tablet 40 mg PO DAILY 03/15/20 12/27/20 Unknown History gabapentin 300 mg capsule 300 mg PO .2-3 caps TID cap 03/15/20 12/27/20 Unknown History lisinopril 40 mg tablet 40 mg PO DAILY 03/15/20 12/27/20 Unknown History metformin 1,000 mg tablet 1,000 mg PO BID 03/15/20 12/27/20 Unknown History potassium chloride 20 mEq 20 meq PO DAILY 03/15/20 12/27/20 Unknown History tablet,extended release prochlorperazine maleate 10 mg 10 mg PO DAILY PRN tab 03/15/20 12/27/20 Unknown History tablet venlafaxine 75 mg capsule,extended 75 mg PO TID cap 03/15/20 12/27/20 Unknown History release 24 hr oxycodone-acetaminophen 10 mg-325 1 tab PO TID PRN 30 Days #75 tab 04/13/20 12/27/20 Unknown Rx mg tablet MDD 3 tizanidine 4 mg tablet 4 mg PO TID PRN #60 tab MDD 3 04/13/20 12/27/20 Unknown Rx albuterol sulfate 1 puff INHALATION QID PRN 12/27/20 12/27/20 Unknown History baclofen 20 mg PO DAILY 12/27/20 12/27/20 Unknown History buspirone 5 mg PO TID PRN 12/27/20 12/27/20 Unknown History Allergies Allergy/AdvReac Type Severity Reaction Status Date / Time adhesive tape Allergy rash Verified 04/22/20 13:16 amitriptyline Allergy Unknown Verified 04/22/20 13:16 [id number] [From Nubain] Allergy sick to Verified 04/22/20 13:16 stomach Sulfa (Sulfonamide Allergy Itch all Verified 04/22/20 13:16 Antibiotics) over Current Medications Current Medications Generic Name Dose Route Start Last Admin Trade Name Freq PRN Reason Stop Dose Admin Albuterol/Ipratropium 3 ml 12/27/20 06:43 12/27/20 09:29 Ipratropium-Albuterol 3 Ml Neb INHALATION 3 ml Q6H.RESPIRATORY PRN Administration SHORTNESS OF BREATH Albuterol/Ipratropium 3 ml 12/27/20 15:00 01/02/21 08:01 Ipratropium-Albuterol 3 Ml Neb INHALATION 3 ml Q6H.RESPIRATORY RANJIT Administration Aspirin 81 mg 12/30/20 09:00 01/02/21 08:47 Aspirin 81 Mg Ec Tablet PO 81 mg DAILY RANJIT Administration Budesonide 0.5 mg 12/27/20 20:00 01/02/21 08:01 Budesonide 0.5 Mg/2 Ml Neb INHALATION 0.5 mg BID.RESPIRATORY RANJIT Administration Clonidine HCl 1 patch 12/31/20 10:00 12/31/20 10:22 Clonidine 0.2 Mg/24 Hr Patch TRANSDERMA 1 patch Q7D RANJIT Administration Enoxaparin Sodium 40 mg 01/02/21 11:00 01/02/21 10:11 Enoxaparin 40 Mg/0.4 Ml Syringe SUBCUT 40 mg Q24H RANJIT Administration Famotidine 20 mg 12/27/20 07:00 01/02/21 06:08 Famotidine 20 Mg/2 Ml Inj IVP 20 mg Q12H RANJIT Administration Fluconazole 100 mg 01/01/21 09:00 01/02/21 08:47 Fluconazole 100 Mg Tablet NG-TUBE 01/11/21 08:59 100 mg DAILY RANJIT Administration Hydromorphone HCl 1 mg 01/01/21 10:55 01/02/21 00:44 Hydromorphone 1 Mg/Ml Inj 1 Ml IVP 1 mg Q6H PRN Administration OPIOID WITHDRAWAL Vancomycin/PEG/NADA/Lysine/Water 1,500 mg in 300 mls @ 200 mls/hr 12/27/20 11:00 01/02/21 11:26 Vancocin IV 200 mls/hr Q8H RANJIT Administration Dexmedetomidine HCl 400 mcg/ 104 mls @ 0 mls/hr 12/27/20 10:00 01/02/21 10:25 Sodium Chloride IV 1 mcg/kg/hr .Q0M RANJIT 24.8 mls/hr Administration Protocol Per Protocol Fentanyl 1,000 mcg/ Sodium 100 mls @ 0 mls/hr 12/29/20 06:00 01/02/21 05:02 Chloride IV 100 mcg/hr .Q0M RANJIT 10 mls/hr Administration Protocol Per Protocol Acetaminophen 1,000 mg in 100 mls @ 400 mls/hr 12/31/20 16:18 01/02/21 09:40 Ofirmev IV Infused Q8H PRN Infusion FEVER Levofloxacin/Dextrose 750 mg in 150 mls @ 100 mls/hr 12/31/20 16:15 01/01/21 19:12 Levaquin-D5w IV 01/05/21 16:14 Infused Q24H RANJIT Infusion Protocol Dextrose 1,000 mls @ 50 mls/hr 01/02/21 09:45 01/02/21 10:11 D5w IV 50 mls/hr .Q20H RANJIT Administration Insulin Aspart 0 unit 12/27/20 21:00 01/01/21 20:51 Insulin Aspart 100 Unit/1 Ml SUBCUT 5 unit BEDTIME RANJIT Administration Protocol Insulin Aspart 0 unit 12/28/20 00:00 01/02/21 05:03 Insulin Aspart 100 Unit/1 Ml SUBCUT 6 unit Q6H RANJIT Administration Protocol Methadone HCl 20 mg 12/31/20 16:15 01/02/21 08:47 Methadone 10 Mg Tablet PO 20 mg DAILY RANJIT Administration Nystatin 1 applic 12/27/20 09:00 01/02/21 08:47 Nystatin Powder 15 Gm Btl TOPICAL 1 applic BID RANJIT Administration PFSH Acute PFSH: Medical History Cervical post-laminectomy syndrome Stglyge-Zjxst-Htilm disease-like deformity of foot right Chronic pain Depression with anxiety Diabetes mellitus, type II History of cardioversion history of SVT vs for other arrhythmia History of DVT of lower extremity post-operative Hyperlipidemia Hypertension Lumbar radiculopathy Lung cancer according to pain clinic notes, managed at [facility], underwent radiation ther apy in 2019 Torticollis, acquired Has had good results with Botox in the past Surgical History History of arthroplasty of left knee (~1976) History of partial hysterectomy Hx of appendectomy Hx of dilation and curettage Hx of neck surgery x 2, posterior laminectomy and cervical fusion with hardware in place, limited ROM neck at baseline Hx of total knee replacement (~2010) Right Hx of tubal ligation Family History Family/Other Hypertension Depression Anxiety Diabetes Father Aneurysm Mother Hypertension Brother Diabetes Sister Diabetes Social History Alcohol intake: never Substance/Drug Use: current Substance/Drug use type: Methamphetamine Marital status: Additional social history: unknown if patient continues to smoke, documented to smoke previously Vitals/I&O/Wt Last Vital Signs Temp 101.1 F H 01/02/21 09:00 Pulse 86 01/02/21 10:30 Resp 17 01/02/21 11:23 BP 141/63 01/02/21 10:30 Pulse Ox 95 01/02/21 10:30 01/01/21 01/02/21 01/02/21 22:59 06:59 14:59 Intake Total 1414.754 / 2292.087 590.28 / 2882.367 1264 / 1264 Output Total 1350 / 1350 250 / 1600 Balance 64.754 / 942.087 340.28 / 9935.043 8089 / 1264 Physical Exam Narrative: EXAM NARRATIVE: General: The patient is intubated and sedated, opens eyes spontaneously intermittently but not responsive HEENT: Bilateral myopic pupil, no nystagmus Neck: No JVD Respiratory: Auscultation: Bilateral crackles at lung bases, no wheezing or rhonchi Cardiovascular: Regular rate and rhythm, S1-S2 present, no murmur, bilateral mild peripheral edema Abdomen: Soft, nondistended, positive bowel sound Musculoskeletal: Severe deformity of the feet Skin: Rash over bilateral lower extremities, better than before Neuro: Patient opens her eyes spontaneously but not following any commands Urinary Catheter Management^: Garber: Cath Placed During This Visit: yes Reason for Continuing Indwelling Catheter: Accurate Measurement of Urinary O utput in Critically Ill Patients Urinary Catheter Date of Insertion: 12/27/20 Urinary Catheter Time of Insertion: 00:51 Data Micro: Micro: Microbiology 01/01/21 14:33 Urine Culture - Pr eliminary Urine Catheterize d 12/31/20 18:46 Blood Culture - Pr eliminary Blood NEGATIVE TO JOHN E 12/31/20 18:46 Blood Culture - Pr eliminary Blood NEGATIVE TO JOHN E 01/01/21 09:39 Cryptococcal Antig en - Final Cerebrospinal Flu id 12/27/20 15:40 Blood Culture - Fi nal Blood NO GROWTH AFTER 5 DAYS 12/27/20 15:41 Blood Culture - Fi nal Blood NO GROWTH AFTER 5 DAYS 12/27/20 00:46 Blood Culture - Fi nal Blood Group g strepto coccus 12/29/20 16:30 Gram Stain - Final Leg - #1 Wound Culture - Fi nal Other Data: Attestation for Other Data: I personally reviewed and interpreted the following: Other data: I have reviewed the patient's laboratory, microbiologic and radiologic data. Patient has mild leukocytosis. To be worse likely secondary to steroid that the patient had received at that time. She is anemic, hyponatremic and likely has metabolic alkalosis. All her blood culture had been negative except the initial blood culture on 12 27 that was positive for Streptococcus. Endotracheal aspirate was positive for MRSA. A&P Assessment and plan (1) Acute encephalopathy: This is a 60-year-old female who presented to the hospital with acute encephalopathy. The most likely etiology for her encephalopathy aches toxic metabolic. The patient is on multiple SUPERVIS[employer] acting medications including opioids, muscle relaxants. Her urine tox screen was also positive for methamphetamine. When the patient presented to the hospital, she was likely suffering from bilateral lower extremity cellulitis which likely caused worsening of her mental status as well. Unfortunately, the patient has not improved significantly regarding her mental status. There is also a concern for meningitis for which she is receiving antibiotic. However, clinically, I believe her chances of having meningitis is likely less. Multiple attempts to obtain spinal fluid had failed due to her body habitus. I believe the best course of action to support her at this time would be minimization of SUPERVISOR DUMPING acting drugs without precipitating any withdrawal event. I am going to cut down her home medication dosage into half and reinitiate the tizanidine and venlafaxine. Currently the patient is on fentanyl which should be adequate for preventing opioid withdrawal. In addition, the patient is also getting intermittent bolus doses of Dilaudid. Unfortunately, the encephalopathy sometimes may take longer to resolve. The patient is undergoing work-up for paraneoplastic encephalitis in the setting of lung cancer history. There is no evidence of neuroleptic malignant syndrome. There is no nystagmus, clonus or other symptoms of serotonin syndrome either. Status: Acute (2) Acute respiratory failure with hypoxia: During the course of hospitalization, the patient developed MRSA pneumonia likely from recurrent aspiration. Currently the patient is on vancomycin. CT scan of the chest revealed bilateral airspace and interstitial opacity with bilateral pleural effusion. The patient is currently on 30% FiO2 and hemodynamically stable. She also had bilateral pleural effusion when she first presented to the hospital. On echocardiogram she has evidence of left ventricular hypertrophy grade 1 diastolic dysfunction and likely has a component of heart failure with preserved ejection fraction. The patient has been diuresed but developed likely contraction alkalosis. She will likely still need diuresis with the possible addition of acetazolamide. Status: Acute (3) MRSA pneumonia: Status: Acute (4) Substance abuse: The patient has history of substance abuse. This time also her urine tox screen was positive for methamphetamine. Status: Acute (5) Hypernatremia: We will start the patient on free water flush through the OG tube. We need to bring down the sodium to 140. Status: Acute Coding Level of Care Code Acute [facility] for [facility] Diagnoses Acute encephalopathy G93.40 Acute respiratory failure with hypoxia J96.01 MRSA pneumonia J15.212 Substance abuse F19.10 Hypernatremia E87.0
[2021-01-02 13:57] LABS: Adenovirus Not Detected (Not Detected); Human Metapneumovirus Not Detected (Not Detected); Human Parainflu Virus 1 Not Detected (Not Detected); Human Parainflu Virus 2 Not Detected (Not Detected); Human Parainflu Virus 3 Not Detected (Not Detected); Human Rsv A Not Detected (Not Detected); Influenza A Not Detected (Not Detected); Influenza B Not Detected (Not Detected); Rhinovirus/Enterovirus Not Detected (Not Detected)
[2021-01-02] MEDS: tizanidine 4 mg Tablet 2 MG PO ×2 (14:32→20:36)
[2021-01-02] MEDS: levofloxacin-dextrose 5 % 750 MG/150 ML PREMIX 100 MG IV (14:32)
[2021-01-02] MEDS: ibuprofen 200 mg Tablet 400 MG PO (14:32)
[2021-01-02 14:57] LABS: Anion Gap 9.4 (5-19); Blood Urea Nitrogen 16 mg/dL (8-23); Calcium 8.2 mg/dL (8.5-10.5); Carbon Dioxide 33 mmol/L (22-29); Chloride 108 mmol/L (98-107); Glomerular Filtration Rate 226.9 mL/min (90-130); Glucose 309 mg/dL (65-115); Osmolality Calculated 315 mOsm/kg (285-295); Potassium 4.4 mmol/L (3.5-5.1); Sodium 146 mmol/L (136-145)
[2021-01-02] MEDS: amlodipine 10 mg Tablet PO (16:39)
[2021-01-02] MEDS: venlafaxine 75 mg Tablet PO (17:46)
[2021-01-02] MEDS: labetalol 5 mg/mL SDV 20mL 10 MG IVP (17:46)
[2021-01-02 18:03] LABS: Glucose Point of Care 333 mg/dL (70-110)
--- NOTE | 2021-01-02 19:17 | PC.NURSE ---
Ice packs placed to groin, right and left axilla, and bilateral neck. Nurse LEDY Hayden, notified.
[2021-01-02 21:19] LABS: Glucose Point of Care 291 mg/dL (70-110)
[2021-01-03] VITALS (63 sets, daily range): BP systolic 91–174; BP diastolic 46–87; PULSE 53–89; RESP 12–14; TEMP 36.4–37.3; O2SAT 93–100
[2021-01-03] MEDS: dexmedetomidine 400 MCG in sodium chloride 0.9% (100 ml) 100 ML 24.8 MCG IV ×6 (00:14→22:55)
[2021-01-03 01:05] LABS: Glucose Point of Care 247 mg/dL (70-110)
--- NOTE | 2021-01-03 02:18 | PC.NURSE ---
ASSUMING CARE 1900 Patient on CMV mode, TV 450, Rate 12, PEEP 8, 8.0 tube, 24 cm at lip. Patient on 1 mcg/kg/hour of precedex, 100 mcg/hour of fentanyl, and 50 mL/hour of Dextrose 5%. Patient is spontaneously opening eyes, responsive to pain, but not tracking with eyes or following commands.
[2021-01-03] MEDS: ipratropium-albuterol 3 mL Neb INHALATION ×4 (02:52→20:20)
[2021-01-03] MEDS: vancomycin 1,500 MG/300 ML PIGGYBACK 200 MG IV ×2 (03:51→12:57)
[2021-01-03 04:06] LABS: Basophils % 0.2 %; Eosinophils % 0.2 %; Hematocrit 24.2 % (37.0-47.0); Hemoglobin 7.3 g/dL (11.5-15.3); Lymphocytes # 1.3 10^3/uL (0.8-4.8); Lymphocytes % 7.6 %; Mean Corpuscular HGB Conc 30.2 g/dL (30.0-36.0); Mean Corpuscular Hemoglobin 30.7 pg (28.0-34.0); Mean Corpuscular Volume 101.7 fL (81-99); Mean Platelet Volume 10.9 fL (7.4-10.4); Monocytes % 5.7 %; Neutrophils # 13.54 10^3/uL (1.8-7.7); Neutrophils % 81.3 %; Nucleated Red Blood Cells # 0.1 /100WBC; Nucleated Red Blood Cells % 0.5 %; Platelet Count 225 10^3/cmm (130-400); Red Blood Count 2.38 10^6/uL (4.1-5.3); Red Cell Distribution Width 15.8 % (12.1-15.1); White Blood Count 16.7 10^3/uL (4.0-10.0)
[2021-01-03 04:21] LABS: Alanine Aminotransferase 11 U/L (0-33); Albumin Level 2.6 g/dL (3.5-5.2); Alkaline Phosphatase 76 IU/L (35-105); Aspartate Amino Transferase 10 U/L (0-32); Blood Urea Nitrogen 15 mg/dL (8-23); Calcium 8.1 mg/dL (8.5-10.5); Carbon Dioxide 33 mmol/L (22-29); Chloride 100 mmol/L (98-107); Globulin 2.8 g/dL (1.3-4.6); Glomerular Filtration Rate 362.3 mL/min (90-130); Glucose 242 mg/dL (65-115); Osmolality Calculated 293 mOsm/kg (285-295); Sodium 137 mmol/L (136-145); Total Bilirubin 0.3 mg/dL (0.15-1.2); Total Protein 5.4 g/dL (6.6-8.7)
[2021-01-03 04:52] LABS: ABG PH Result 7.41 (7.35-7.45); Arterial Blood Gas Hematocrit 24.6 % (37-47); Base Excess ABG 9.3 mmol/L (-2.0-2.0); Blood Gas Operator Identificat JB; Blood Gas Sample Site Brachial, right; Blood Gas Sample Type Arterial; Carboxyhemoglobin 1.2 %THgb (0.4-20.1); HCO3 ABG 35.1 mmol/L (22-26); HGB O2 Sat 95.1 % (95-100); Ionized Calcium Level - ABG 1.2 mmol/L (1.1-1.4); Methemoglobin 1.3 % (0.4-1.5); Oxygen Device VENT; Oxygen Saturation ABG 97.5; PO2 ABG 89.3 mmHg (80.0-100.0); Potassium Level - ABG 3.7 mmol/L (3.5-5.0)
[2021-01-03 04:53] LABS: Alveolar-Arterial Oxygen Gradi 12.1 mmHg (5-10); Blood Gas Tidal Volume 0.45
--- NOTE | 2021-01-03 06:00 | XR_ITS ---
WS: [id number] PORTABLE CHEST HISTORY: covid COMPARISON: 01/01/2021 Lung volumes are decreased. Scattered interstitial thickening bilaterally but greatest over the centr al LEFT lung. Mild elevation of the LEFT hemidiaphragm. No pleural effusion or pneumothorax. Cardiac size: Normal. Mediastinum/Aorta: Normal mediastinum. Extensive fusion hardware throughout the cervical spine. Nasogastric tube with tip in the upper abdomen. XR/XR chest 1V portable [id number] IMPRESSION: Mild interstitial thickening, greatest over the central LEFT lung. Consistent w ith pneumonitis.
[2021-01-03 06:22] LABS: Glucose Point of Care 228 mg/dL (70-110)
[2021-01-03] MEDS: dextrose 5% 1,000 ML 50 ML IV (06:24)
[2021-01-03] MEDS: famotidine 20 mg/2 mL INJ IVP ×2 (06:25→18:51)
[2021-01-03 07:49] LABS: Glucose Point of Care 241 mg/dL (70-110)
--- NOTE | 2021-01-03 08:06 | PM.PN ---
Subjective Subjective: Interval history: Patient seen bedside, she is tracking and responding to nonverbal. Vitals/I&O/Wt Last Vital Signs Temp 99.2 F 01/03/21 07:30 Pulse 64 01/03/21 07:30 Resp 12 01/03/21 07:30 BP 118/56 01/03/21 07:30 Pulse Ox 97 01/03/21 07:30 01/02/21 01/03/21 01/03/21 22:59 06:59 14:59 Intake Total 1548.28 / 3216.28 1202.093 / 4418.373 300 / 300 Output Total 550 / 1550 800 / 800 Balance 998.28 / 1666.28 1202.093 / 2868.373 -500 / -500 Weight last 48 hrs Weight 229 lb 3.2 oz Physical Exam Narrative: EXAM NARRATIVE: Patient is alert and oriented ?3 and in no acute distress. The following is a focused bilateral lower extremity exam. VASCULAR: Dorsalis pedis and posterior tibial arteries faintly palpable, palpable popliteal artery bilaterally. Capillary refill time less than 5 seconds to the distal hallux bilaterally. Calf is supple and nontender proximally and distally. Diminished growth pitting edema to the bilateral lower extremities, right greater than left. NEUROLOGICAL: Not tested. DERMATOLOGICAL: Wound to the right medial midfoot corresponding to the talar head, does not probe to bone, no tunneling or undermining. There is no purulence from the wound. Granular base with epithelialized margin, wound measures 2.2 cm x 2.5 cm x 0.2 cm. MUSCULOSKELETAL: Nonreducible Charcot deformity of the right foot with prominent talar head medially. Spastic contracture with flexion at bilateral knee. Reducible hammertoe contracture 2 through 5 bilaterally. Urinary Catheter Management^: Garber: Cath Placed During This Visit: yes Reason for Continuing Indwelling Catheter: Accurate Measurement of Urinary Output in Critically Ill Patients Urinary Catheter Date of Insertion: 12/27/20 Urinary Catheter Time of Insertion: 00:51 Data : 01/03/21 03:29 01/03/21 03:29 Micro: Microbiology 01/01/21 14:33 Urine Culture - Final Urine Catheterized A&P Assessment and plan (1) Cellulitis: Status: Acute Qualifiers: Site of cellulitis: extremity Site of cellulitis of extremity: lower extremity Laterality: right Qualified Code(s): L03.115 - Cellulitis of right lower limb (2) Methamphetamine use: Status: Chronic (3) Diabetes mellitus, type II: Status: Chronic Qualifiers: Diabetes mellitus longterm insulin use: without intermediate designer use Diabetes mellitus complication status: with diabetic arthropathy Diabetes mellitus complication detail: with other arthropathy Qualified Code(s): E11.618 - Type 2 diabetes mellitus with other diabetic arthropathy (4) Bflqvhq-Qhsxj-Sqxul disease-like deformity of foot: Status: Chronic (5) Uses wheelchair: Status: Chronic 60-year-old diabetic female currently intubated, cellulitis to right lower extremity with diabetic foot ulcerations at Charcot deformity. Right midfoot wound appears stable, has chronic appearance. Right foot wound appears stable. CT scan negative for osteomyelitis, x-ray also negative for osteomyelitis. Charcot arthropathy most involved at the talonavicular joint, appears to have stable appearance with remodeling. Does not have acute Charcot characteristics with imaging or clinically. Right foot is in stage III/chronic Charcot foot. Improved granulation tissue at the right foot wound, remains clinically stable, skin lines at the lower extremities indicative of improved edema. No plans for surgical intervention at this time from a podiatry standpoint. Wound culture negative growth at day 3, Gram stain negative for organisms. Wound biopsy resulted actinic keratosis. Biopsy sites well-healing. Wound was dressed with Hydrofera Blue, sterile 4 x 4's and Kerlix. Podiatry will continue to follow while inpatient, recommend wound care follow-up on discharge. Attestations Medical Necessity Statement*: Diabetic foot ulcer, Charcot, cellulitis and sepsis Coding Level of Care Code Acute [facility] for [facility] Diagnoses Cellulitis L03.115 Site of cellulitis: extremity Site of cellulitis of extremity: lower extremity Laterality: right Methamphetamine use F15.10 Diabetes mellitus, type II E11.618 Diabetes mellitus intermediate designer insulin use: without intermediate designer use Diabetes mellitus complication status: with diabetic arthropathy Diabetes mellitus complication detail: with other arthropathy Oqpwkwz-Yjrfk-Drkxc disease-like deformity of foot G60.0 Uses wheelchair Z99.3
[2021-01-03] MEDS: budesonide 0.5 mg/2 mL Neb INHALATION ×2 (08:17→20:20)
--- NOTE | 2021-01-03 09:15 | PM.PN ---
Subjective Subjective: Interval history: The patient was seen and examined. She seems to be doing much better today. In fact, she was able to answer simple questions by mouthing words. She was also able to follow simple commands like squeezing her fingers. Although this was not consistent. But overall the patient appears much more comfortable than yesterday. Serum sodium has come down to normal. Her temperature this morning was 99.2 ?F. Her T-max was 1-2.4 yesterday. She is on volume control mode of mechanical ventilation with 450 cc tidal volume PEEP of 8 and FiO2 of 35%. Medications: Reviewed: Yes Vitals/I&O/Wt Last Vital Signs Temp 99.2 F 01/03/21 07:30 Pulse 67 01/03/21 08:24 Resp 12 01/03/21 08:25 BP 118/56 01/03/21 07:30 Pulse Ox 99 01/03/21 08:24 01/02/21 01/03/21 01/03/21 22:59 06:59 14:59 Intake Total 1548.28 / 3216.28 1202.093 / 4418.373 300 / 300 Output Total 550 / 1550 800 / 800 Balance 998.28 / 1666.28 1202.093 / 2868.373 -500 / -500 Weight last 48 hrs Weight 229 lb 3.2 oz Physical Exam Narrative: EXAM NARRATIVE: General: The patient is intubated and sedated.able to follow simple commands today. HEENT: Bilateral myopic pupil, no nystagmus Neck: No JVD Respiratory: Auscultation: Bilateral crackles at lung bases, no wheezing or rhonchi Cardiovascular: Regular rate and rhythm, S1-S2 present, no murmur, bilateral mild peripheral edema on top of chronic lymphedema Abdomen: Soft, nontender, nondistended, positive bowel sound Musculoskeletal: Severe deformity of the feet Skin: Rash over bilateral lower extremities, better than before Neuro: Patient opens her eyes spontaneously but not following any commands Urinary Catheter Management^: Garber: Cath Placed During This Visit: yes Reason for Continuing Indwelling Catheter: Accurate Measurement of Urinary Output in Critically Ill Patients Urinary Catheter Date of Insertion: 12/27/20 Urinary Catheter Time of Insertion: 00:51 Data : 01/03/21 03:29 01/03/21 03:29 Micro: Microbiology 01/01/21 14:33 Urine Culture - Final Urine Catheterized Attestation for Other Data: I personally reviewed and interpreted the following: Other data: I have reviewed her laboratory, microbiologic and radiologic data. The patient has mild interstitial opacity today likely secondary to pulmonary edema. There is also hilar fullness. A&P Assessment and plan (1) Acute encephalopathy: The patient likely has encephalopathy from toxic metabolic causes worsened by cellulitis. Her home dose of venlafaxine and half dose of tizanidine was started yesterday. Her blood pressure is better controlled with amlodipine. Continue with the supportive therapy and hopefully her mental status will be better. She is on minimal ventilator settings and should be able to get extubated once her mental status is better. Status: Acute (2) Acute respiratory failure with hypoxia: The patient is currently getting treated for MRSA pneumonia. On chest x-ray today there is evidence of hilar fullness with interstitial opacity likely secondary to developing pulmonary edema. The patient most likely has heart failure with preserved ejection fraction. I am going to give her 20 mg IV dose of Lasix and one-time dose of acetazolamide. Status: Acute (3) MRSA pneumonia: The patient is now on vancomycin and Levaquin. Status: Acute (4) Substance abuse: The patient has history of substance abuse. This time also her urine tox screen was positive for methamphetamine. Status: Acute (5) Hypernatremia: The serum sodium level had dropped down to 137. We will cut down the tube feed water flush to 50 cc every 6 hours. No IV fluid. She will continue with her tube feed. 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
[2021-01-03] MEDS: tizanidine 4 mg Tablet 2 MG PO ×3 (09:20→21:08)
[2021-01-03] MEDS: fluconazole 100 mg Tablet NG-TUBE (09:20)
[2021-01-03] MEDS: amlodipine 10 mg Tablet PO (09:20)
[2021-01-03] MEDS: aspirin 81 mg EC Tablet PO (09:20)
[2021-01-03] MEDS: venlafaxine 75 mg Tablet PO ×2 (09:20→18:51)
[2021-01-03] MEDS: methadone 10 mg Tablet 20 MG PO (09:20)
[2021-01-03] MEDS: nystatin powder 15 gm Btl 1 APPLIC TOPICAL ×2 (09:21→18:58)
[2021-01-03 09:58] LABS: Troponin T (5th) Once 29 ng/L (0-10)
--- NOTE | 2021-01-03 10:37 | PC.CHAP ---
Pastoral Care Encounter/Spiritual Assessment Type of Contact [] Declined gas meter prover visit [] Patient/Family/Request visit [] Outpatient visit [] Follow-up visit [] Physician referral [] Code/Alert [x] Routine visit [] Staff referral [] Actively dying [] Patient sleeping [] Family support [] [] Out of room [] Palliative care [] [] Receiving care in room [] Pre-surgical visit [] Trauma [] Long length of stay [x] ICU visit [x] Other: ventilator Relational/Emotional Strength [] Patient feels connected with others/family/visitors/staff [] Distress [] Loneliness/isolation [] Abandonment Spirituality of Patient [] Person of Amee [] Attends Holiness of their Amee [] Believes in Prayer [] Reads Bible or Buddhist materials [] There are Spiritual issues to be addressed Wig Stylist Interventions [x] Prayer [] Active listening [] Non-anxious presence [] Spiritual/emotional support [] Crisis/trauma care [] Spiritual counseling [] Bereavement support [] Provided bereavement packet [] Provided Bible/devotional materials [] Provided toy/stuffed animal, coloring book to patient or family member [] Provided Communion [] Anointing/[place] [] Salvation [x] Completed spiritual assessment [] Other: Impact on Illness or Injury [] Angry [] Fearful [] Anxious [] Often cries [] Exhaustion [] Unable to work [] Unable to attend mu-ism [] Unable to walk/stand [] Unable to read [] Unable to drive [] Unable to eat/drink [] Unable to sleep [] Unable to be with family [] Patient intubated [] Other: Summary Time spent with patient
[2021-01-03 10:44] LABS: Ferritin 1558 ng/mL (15-150)
[2021-01-03] MEDS: acetaZOLAMIDE 250 mg Tablet 500 MG PO (10:55)
[2021-01-03] MEDS: FUROsemide 10 mg/mL SDV 2mL 20 MG IVP (10:55)
--- NOTE | 2021-01-03 11:22 | PC.NURSE ---
Speculum used to check for tampon, per Dr. Perez's verbal request to check for toxic shock syndrome. No tampon noted. Nurse, Eloise VILLAFANA as witness.
[2021-01-03] MEDS: enoxaparin 40 mg/0.4 mL Syringe SUBCUT (12:57)
[2021-01-03 13:00] LABS: Glucose Point of Care 200 mg/dL (70-110)
[2021-01-03] MEDS: levofloxacin-dextrose 5 % 750 MG/150 ML PREMIX 100 MG IV (16:33)
--- NOTE | 2021-01-03 16:59 | PC.NURSE ---
Clonidine patch removed at this time per Dr. Rosario telephone order.
--- NOTE | 2021-01-03 17:33 | P.CONIM_ITS ---
Providers/Reason For Consult Consulting Physican/Specialty*: Brenden Coburn Reason for Consult*: Altered mental status Attending Physician: Luis Alberto Perez Primary Care Provider: Debbie Dietz DO History of Present Illness History of Present Illness Polina Snyder is a 60 year old woman who is currently intubated and sedated. She presented having been found in an obtunded state by her family on 12/27/2020. Her family called 911. On arrival she was disheveled, diaphoretic and appeared acutely ill. She was obtunded. She would open her eyes. She had an extensive work-up in the emergency department that included CT scan of the head that was negative, laboratory findings of leukocytosis, elevated CPK and a low sodium. She was mildly febrile 99.8 and tachycardic. Her lactic acid was normal. External medication reconciliation of medications filled within the last 3 months included baclofen, Effexor, atenolol, fenofibrate, Metformin, Ventolin, gabapentin, BuSpar, Lasix and potassium and some antibiotics but no opioids since March 2020 when she ended her relationship with the pain clinic. Urine was positive for opioids and methamphetamine. CT scan of the chest and CTA were negative and urine did not show a sign of infection. She had cellulitis and multiple sites of skin breakdown from severe neuropathy of the legs. She remained confused over the next several days and began spiking fevers. She was placed on broad-spectrum antibiotics and acyclovir. Attempts were made for lumbar puncture without success. There was a question that she was hallucinating. Opioid withdrawal was suspected because she was also tachycardic and she was started on methadone. On 12/29 she had to be intubated for hypoxia. Despite antibiotics she has continued to spike fevers up to 103 on 12/31 and 102 degrees yesterday. I spoke with Dr. Carter yesterday and recommended discontinuing antibiotics since there was no source of fever except for some pneumonitis in the left lung. Because of frustration over her persistent altered mental status, CT scan of the head and CTA were performed 12/30/2020 and showed less than 50% stenosis of the carotid arteries and normal intracranial CTA with no acute findings of the head. Cervical spine CT was also done and there was no sign of epidural abscess. CT of the abdomen and pelvis was negative for an infection source but fatty infiltration of the liver was noted. CT scan of the foot showed no sign of osteomyelitis. CT scans of the lumbar and thoracic spine showed no sign of discitis or epidural abscess. Tonight the patient remains intubated and sedated. She is on fentanyl. She is getting 20 mg of methadone per day. She is still on Levaquin, vancomycin and fluconazole. Review of Systems Narrative: Patient is intubated. Meds/Allergies Home Medications and Allergies Home Medications Medication Instructions Recorded Confirmed Last Taken Type aspirin 325 mg tablet 325 mg PO BID 03/15/20 12/27/20 Unknown History atenolol 100 mg tablet 100 mg PO BID 03/15/20 12/27/20 Unknown History calcium carbonate 500 mg calcium 500 mg PO BID 03/15/20 12/27/20 Unknown History (1,250 mg) tablet cholecalciferol (vitamin D3) 1,250 1,250 mcg PO Q7D cap 03/15/20 12/27/20 Unknown History mcg (50,000 unit) capsule clonidine HCl 0.1 mg tablet 0.1 mg PO BID 03/15/20 12/27/20 Unknown History fenofibrate micronized 200 mg 200 mg PO BEDTIME cap 03/15/20 12/27/20 Unknown History capsule furosemide 40 mg tablet 40 mg PO DAILY 03/15/20 12/27/20 Unknown History gabapentin 300 mg capsule 300 mg PO .2-3 caps TID cap 03/15/20 12/27/20 Unknown History lisinopril 40 mg tablet 40 mg PO DAILY 03/15/20 12/27/20 Unknown History metformin 1,000 mg tablet 1,000 mg PO BID 03/15/20 12/27/20 Unknown History potassium chloride 20 mEq 20 meq PO DAILY 03/15/20 12/27/20 Unknown History tablet,extended release prochlorperazine maleate 10 mg 10 mg PO DAILY PRN tab 03/15/20 12/27/20 Unknown History tablet venlafaxine 75 mg capsule,extended 75 mg PO TID cap 03/15/20 12/27/20 Unknown History release 24 hr oxycodone-acetaminophen 10 mg-325 1 tab PO TID PRN 30 Days #75 tab 04/13/20 12/27/20 Unknown Rx mg tablet MDD 3 tizanidine 4 mg tablet 4 mg PO TID PRN #60 tab MDD 3 04/13/20 12/27/20 Unknown Rx albuterol sulfate 1 puff INHALATION QID PRN 12/27/20 12/27/20 Unknown History baclofen 20 mg PO DAILY 12/27/20 12/27/20 Unknown History buspirone 5 mg PO TID PRN 12/27/20 12/27/20 Unknown History Allergies Allergy/AdvReac Type Severity Reaction Status Date / Time adhesive tape Allergy rash Verified 04/22/20 13:16 amitriptyline Allergy Unknown Verified 04/22/20 13:16 nalbuphine [From Nubain] Allergy sick to Verified 04/22/20 13:16 stomach Sulfa (Sulfonamide Allergy Itch all Verified 04/22/20 13:16 Antibiotics) over Current Medications Current Medications Generic Name Dose Route Start Last Admin Trade Name Freq PRN Reason Stop Dose Admin Albuterol/Ipratropium 3 ml 12/27/20 06:43 12/27/20 09:29 Ipratropium-Albuterol 3 Ml Neb INHALATION 3 ml Q6H.RESPIRATORY PRN Administration SHORTNESS OF BREATH Albuterol/Ipratropium 3 ml 12/27/20 15:00 01/03/21 14:46 Ipratropium-Albuterol 3 Ml Neb INHALATION 3 ml Q6H.RESPIRATORY RANJIT Administration Amlodipine Besylate 10 mg 01/02/21 17:00 01/03/21 09:20 Amlodipine 10 Mg Tablet PO 10 mg DAILY RANJIT Administration Aspirin 81 mg 12/30/20 09:00 01/03/21 09:20 Aspirin 81 Mg Ec Tablet PO 81 mg DAILY RANJIT Administration Budesonide 0.5 mg 12/27/20 20:00 01/03/21 08:17 Budesonide 0.5 Mg/2 Ml Neb INHALATION 0.5 mg BID.RESPIRATORY RANJIT Administration Clonidine HCl 1 patch 12/31/20 10:00 12/31/20 10:22 Clonidine 0.2 Mg/24 Hr Patch TRANSDERMA 1 patch Q7D RANJIT Administration Enoxaparin Sodium 40 mg 01/02/21 11:00 01/03/21 12:57 Enoxaparin 40 Mg/0.4 Ml Syringe SUBCUT 40 mg Q24H RANJIT Administration Famotidine 20 mg 12/27/20 07:00 01/03/21 06:25 Famotidine 20 Mg/2 Ml Inj IVP 20 mg Q12H RANJIT Administration Fluconazole 100 mg 01/01/21 09:00 01/03/21 09:20 Fluconazole 100 Mg Tablet NG-TUBE 01/11/21 08:59 100 mg DAILY RANJIT Administration Vancomycin/PEG/NADA/Lysine/Water 1,500 mg in 300 mls @ 200 mls/hr 12/27/20 11:00 01/03/21 16:58 Vancocin IV Infused Q8H RANJIT Infusion Dexmedetomidine HCl 400 mcg/ 104 mls @ 0 mls/hr 12/27/20 10:00 01/03/21 13:37 Sodium Chloride IV 1 mcg/kg/hr .Q0M RANJIT 24.8 mls/hr Administration Protocol Per Protocol Fentanyl 1,000 mcg/ Sodium 100 mls @ 0 mls/hr 12/29/20 06:00 01/03/21 13:37 Chloride IV 100 mcg/hr .Q0M RANJIT 10 mls/hr Administration Protocol Per Protocol Acetaminophen 1,000 mg in 100 mls @ 400 mls/hr 12/31/20 16:18 01/03/21 09:43 Ofirmev IV Infused Q8H PRN Infusion FEVER Levofloxacin/Dextrose 750 mg in 150 mls @ 100 mls/hr 12/31/20 16:15 01/03/21 16:33 Levaquin-D5w IV 01/05/21 16:14 100 mls/hr Q24H RANJIT Administration Protocol Insulin Aspart 0 unit 12/27/20 21:00 01/02/21 20:36 Insulin Aspart 100 Unit/1 Ml SUBCUT 5 unit BEDTIME RANJIT Administration Protocol Insulin Aspart 0 unit 12/28/20 00:00 01/03/21 12:57 Insulin Aspart 100 Unit/1 Ml SUBCUT 6 unit Q6H RANJIT Administration Protocol Methadone HCl 20 mg 12/31/20 16:15 01/03/21 09:20 Methadone 10 Mg Tablet PO 20 mg DAILY RANJIT Administration Nystatin 1 applic 12/27/20 09:00 01/03/21 09:21 Nystatin Powder 15 Gm Btl TOPICAL 1 applic BID RANJIT Administration Tizanidine HCl 2 mg 01/02/21 15:00 01/03/21 16:36 Tizanidine 4 Mg Tablet PO 2 mg TID RANJIT Administration Venlafaxine HCl 75 mg 01/02/21 18:00 01/03/21 09:20 Venlafaxine 75 Mg Tablet PO 75 mg BID RANJIT Administration PFSH Acute PFSH: Medical History Cervical post-laminectomy syndrome Vihuzaf-Tfzyf-Lnevy disease-like deformity of foot right Chronic pain Depression with anxiety Diabetes mellitus, type II History of cardioversion history of SVT vs for other arrhythmia History of DVT of lower extremity post-operative Hyperlipidemia Hypertension Lumbar radiculopathy Lung cancer according to pain clinic notes, managed at [facility], underwent radiation therapy in 2019 Torticollis, acquired Has had good results with Botox in the past Surgical History History of arthroplasty of left knee (~1976) History of partial hysterectomy Hx of appendectomy Hx of dilation and curettage Hx of neck surgery x 2, posterior laminectomy and cervical fusion with hardware in place, limited ROM neck at baseline Hx of total knee replacement (~2010) Right Hx of tubal ligation Family History Family/Other Hypertension Depression Anxiety Diabetes Father Aneurysm Mother Hypertension Brother Diabetes Sister Diabetes Social History Alcohol intake: never Substance/Drug Use: current Substance/Drug use type: Methamphetamine Marital status: Additional social history: unknown if patient continues to smoke, documented to smoke previously Vitals/I&O/Wt Last Vital Signs Temp 98.2 F 01/03/21 16:30 Pulse 63 01/03/21 16:30 Resp 12 01/03/21 16:30 BP 100/55 01/03/21 16:30 Pulse Ox 97 01/03/21 16:30 01/03/21 01/03/21 01/03/21 06:59 14:59 22:59 Intake Total 1202.093 / 4418.373 2295.747 / 2295.747 1050 / 3345.747 Output Total 800 / 800 Balance 1202.093 / 2868.373 1495.747 / 8916.678 3635 / 2545.747 Weight last 48 hrs Weight 229 lb 3.2 oz Physical Exam Narrative: EXAM NARRATIVE: General: She looks far older than her age and chronically ill with edema of both legs below the knees and chronic changes of cellulitis and Charcot joints in the feet. Mental status exam she opened her eyes to voice and made eye contact. She would inconsistently follow simple commands such as close your eyes or blink twice. . She would not squeeze my hand. She would not purposefully move her eyes or count fingers. Cranial nerves: Visual marrero full to threat. No visual deviation. PERRL 5?3. Face symmetric at rest and she closes both eyes equally. Sensory/motor: She withdraws both hands weakly from pain. I did not stimulate the feet, which are deformed. Chest: Clear to auscultation. Cardiovascular: S1 and S2 are normal without murmur or gallop. Urinary Catheter Management^: Garber: Cath Placed During This Visit: yes Reason for Continuing Indwelling Catheter: Accurate Measurement of Urinary Output in Critically Ill Patients Urinary Catheter Date of Insertion: 12/27/20 Urinary Catheter Time of Insertion: 00:51 Data Micro: Micro: Microbiology 01/01/21 14:33 Urine Culture - Fi nal Urine Catheterize d A&P Assessment and plan (1) Toxic metabolic encephalopathy: Chronically ill obese diabetic who presented with unexplained obtundation and within a few days of admission had respiratory deterioration, fever, tachycardia and hypoxemia requiring intubation and respiratory support. She had a positive sputum culture for MRSA and 1 out of 4 blood culture showing group G Streptococcus which may be a contaminant. She continued to spike high fever despite appropriate antibiotic coverage but is afebrile today and reportedly more alert she is opening her eyes and following some simple commands. She is still sedated and I presume that her mental status is still partly because of sedation. Extensive evaluation to look for abscess has been negative. She presumably has pneumonia as the source of her fever and may have had drug-related fever. I will leave that to the hospitalist to figure out. Status: Acute (2) MRSA pneumonia: Status: Acute (3) Acute respiratory failure with hypoxia: Status: Acute (4) Mzkcttu-Ofmqr-Pivtz disease-like deformity of foot: Status: Chronic Consult Attestations Medical Necessity Statement: Respiratory failure with hypoxemia Time Spent in Patient Care: Greater than 35 minutes Coding Level of Care Code Acute Child Caregiver [facility] for [facility] Diagnoses Toxic metabolic encephalopathy G92 MRSA pneumonia J15.212 Acute respiratory failure with hypoxia J96.01 Palnrng-Uqvnq-Iyopk disease-like deformity of foot G60.0
[2021-01-03 18:48] LABS: Vancomycin Trough 26.7 ug/mL (10-15)
--- NOTE | 2021-01-03 20:15 | PM.PN ---
Subjective Subjective: Interval history: Still heavily sedated but mostly responsive. No acute distress. Mechanically cooled down last night. A febrile this morning. Medications: Reviewed: Yes Medication Review Details: Generic Name Dose Route Start Last Admin Trade Name Jensen PRN Reason Stop Dose Admin Albuterol/Ipratrop ium 3 ml 12/27/20 06:43 12/27/20 09:29 Ipratropium-Albu terol 3 Ml Neb INHALATION 3 ml Q6H.RESPIRATORY P RN Administration SHORTNESS OF IRA TH Albuterol/Ipratrop ium 3 ml 12/27/20 15:00 01/03/21 14:46 Ipratropium-Albu terol 3 Ml Neb INHALATION 3 ml Q6H.RESPIRATORY S CH Administration Amlodipine Besylat e 10 mg 01/02/21 17:00 01/03/21 09:20 Amlodipine 10 Mg Tablet PO 10 mg DAILY RANJIT Administration Aspirin 81 mg 12/30/20 09:00 01/03/21 09:20 Aspirin 81 Mg Ec Tablet PO 81 mg DAILY RANJIT Administration Budesonide 0.5 mg 12/27/20 20:00 01/03/21 08:17 Budesonide 0.5 M g/2 Ml Neb INHALATION 0.5 mg BID.RESPIRATORY S CH Administration Enoxaparin Sodium 40 mg 01/02/21 11:00 01/03/21 12:57 Enoxaparin 40 Mg /0.4 Ml Syringe SUBCUT 40 mg Q24H RANJIT Administration Famotidine 20 mg 12/27/20 07:00 01/03/21 18:51 Famotidine 20 Mg /2 Ml Inj IVP 20 mg Q12H RANJIT Administration Fluconazole 100 mg 01/01/21 09:00 01/03/21 09:20 Fluconazole 100 Mg Tablet NG-TUBE 01/11/21 08:59 100 mg DAILY RANJIT Administration Dexmedetomidine HC l 400 mcg/ 104 mls @ 0 mls/h r 12/27/20 10:00 01/03/21 18:51 Sodium Chloride IV 1 mcg/kg/hr .Q0M RANJIT 24.8 mls/hr Administration Protocol Per Protocol Fentanyl 1,000 mcg / Sodium 100 mls @ 0 mls/h r 12/29/20 06:00 01/03/21 13:37 Chloride IV 100 mcg/hr .Q0M RANJIT 10 mls/hr Administration Protocol Per Protocol Acetaminophen 1,000 mg in 100 m ls @ 400 mls/hr 12/31/20 16:18 01/03/21 09:43 Ofirmev IV Infused Q8H PRN Infusion FEVER Levofloxacin/Dextr ose 750 mg in 150 mls @ 100 mls/hr 12/31/20 16:15 01/03/21 18:51 Levaquin-D5w IV 01/05/21 16:14 Infused Q24H RANJIT Infusion Protocol Insulin Aspart 0 unit 12/27/20 21:00 01/02/21 20:36 Insulin Aspart 1 00 Unit/1 Ml SUBCUT 5 unit BEDTIME RANJIT Administration Protocol Insulin Aspart 0 unit 12/28/20 00:00 01/03/21 19:01 Insulin Aspart 1 00 Unit/1 Ml SUBCUT 6 unit Q6H RANJIT Administration Protocol Methadone HCl 20 mg 12/31/20 16:15 01/03/21 09:20 Methadone 10 Mg Tablet PO 20 mg DAILY RANJIT Administration Nystatin 1 applic 12/27/20 09:00 01/03/21 18:58 Nystatin Powder 15 Gm Btl TOPICAL 1 applic BID RANJIT Administration Tizanidine HCl 2 mg 01/02/21 15:00 01/03/21 16:36 Tizanidine 4 Mg Tablet PO 2 mg TID RANJIT Administration Venlafaxine HCl 75 mg 01/02/21 18:00 01/03/21 18:51 Venlafaxine 75 M g Tablet PO 75 mg BID RANJIT Administration Vitals/I&O/Wt Last Vital Signs Temp 97.8 F 01/03/21 20:00 Pulse 61 01/03/21 20:00 Resp 12 01/03/21 20:00 BP 110/56 01/03/21 20:00 Pulse Ox 98 01/03/21 18:00 01/03/21 01/03/21 01/03/21 06:59 14:59 22:59 Intake Total 1202.093 / 4418.373 2295.747 / 2295.747 1674 / 3969.747 Output Total 800 / 800 750 / 1550 Balance 1202.093 / 2868.373 1495.747 / 1495.747 924 / 2419.747 Weight last 48 hrs Weight 103.963 kg Physical Exam Narrative: EXAM NARRATIVE: No acute distress. Sedated. Vented. Skin is warm and dry. Moist mucous membranes Eyes Ashanti, Neck no JVD Lungs coarse breath sounds bilaterally. No respiratory distress Heart S1, S2, regular tachycardia Abdomen is soft, nontender, bowel sounds are present Extremities bilateral pedal edema. No cyanosis. No calf tenderness. Urinary Catheter Management^: Garber: Cath Placed During This Visit: yes Reason for Continuing Indwelling Catheter: Accurate Measurement of Urinary Output in Critically Ill Patients Urinary Catheter Date of Insertion: 12/27/20 Urinary Catheter Time of Insertion: 00:51 Data : 01/03/21 03:29 01/03/21 03:29 Micro: Microbiology 12/29/20 17:54 Blood Culture - Final Blood NO GROWTH AFTER 5 DAYS 12/29/20 17:57 Blood Culture - Final Blood NO GROWTH AFTER 5 DAYS 01/01/21 14:33 Urine Culture - Final Urine Catheterized A&P Assessment and plan (1) Sepsis: Status: Acute Qualifiers: Sepsis type: Streptococcus, other Sepsis acute organ dysfunction status: with acute organ dysfunction Severe sepsis acute organ dysfunction type: encephalopathy Severe sepsis shock status: without septic shock Qualified Code(s): A40.8 - Other streptococcal sepsis; R65.20 - Severe sepsis without septic shock; G93.41 - Metabolic encephalopathy (2) Streptococcal bacteremia: Status: Acute (3) Thrush: Status: Acute (4) Hypoxemia: Not chronically on oxygen, history of prior tobacco use, CTA with some emphysematous changes but otherwise unremarkable. Status: Acute (5) Cellulitis: Bilateral lower extremities, left more significant than right. Status: Acute Qualifiers: Site of cellulitis: extremity Site of cellulitis of extremity: lower extremity Laterality: right Qualified Code(s): L03.115 - Cellulitis of right lower limb (6) Acute encephalopathy: Status: Acute (7) Diabetes mellitus, type II: Looks to chronically only be on Metformin, currently with hyperglycemia Status: Chronic Qualifiers: Diabetes mellitus long-term insulin use: without long-term use Diabetes mellitus complication status: with diabetic arthropathy Diabetes mellitus complication detail: with other arthropathy Qualified Code(s): E11.618 - Type 2 diabetes mellitus with other diabetic arthropathy Additional A&P Information Ms. Snyder is a 60-year-old female with complicated past medical history, currently admitted since December 27, 2020 after presenting with altered mental status of unclear etiology. Thus far work-up has been significant for presence of streptococcal bacteremia, unclear source, however could be skin source from lower extremity cellulitis versus respiratory source from developing pneumonia. Hospital course has also been complicated by acute hypoxic respiratory failure resulting in emergent intubation, currently on mechanical ventilation. #Streptococcal septicemia #MRSA pneumonia #Encephalopathy, can be metabolic encephalopathy from sepsis -Blood culture noted to be positive for group G streptococcus from day of admission, subsequent blood cultures have not revealed any growth. Unclear source of septicemia at this present time, potential sources could be lower extremity cellulitis. Patient is noted to have chronic lymphedema with changes of stasis dermatitis affecting both lower extremities. Right leg does have more prominent changes on the left side. There was noted to be cellulitis on the right lower extremity, which appears to be improving per review of chart notes. No gross edema, warmth or tenderness noted at the right knee joint which is status post replacement. No other gross joint swelling noted. There is small ulceration over the right heel, pictures of which have been reviewed from the podiatry note, appears to be chronic in appearance. No underlying osteomyelitis noted on CT. Even if present, chronic osteomyelitis is highly unlikely to be the source of current sepsis. Patient is noted to be edentulous, very poor oral hygiene, thrush noted in the mouth. Group C streptococcus could be of oropharyngeal origin as well. CT of lumbosacral spine negative fo osteomyelitis/discitis/epidural abscess Also has been on vancomycin since admission which covers for Streptococcus. Recommend discontinuing imipenem as vancomycin will appropriately cover for streptococcus and MRSA at this time. Interim admission events have included intubation for acute hypoxic respiratory failure with development of bilateral infiltrates in both chest. This could represent worsening pneumonia, especially MRSA pneumonia given that sputum culture is positive for this agent. Other possible differentials include COVID-19 pneumonia, though PCR and antigen were negative upon admission. Possibility of septic embolization from bacteremia remains a possibility, TTE negative for vegetations. Viral pneumonitis could present similarly, respiratory viral panel taken and remains pending. Patient has been started on steroids upon admission due to concern for poor respiratory status and noted wheezing on exam. Though I do not see any chronic steroids listed on her home medications, possibility of disseminated strongyloidosis needs to be considered, check strongyloidiasis antibody for the same. Unlikely to be pneumocystis pneumonitis as there were no infiltrates on day of admission, unlikely for the latter condition to develop within 3 days in a patient who has not otherwise been on long-term steroids and is HIV negative. Acute encephalopathy, present since admission, likely related to metabolic encephalopathy from sepsis. Cannot exclude possibility of bacterial meningitis. LP was unable to be performed in spite of attempts by machine skiver and radiology, likely contributed by body habitus. CT head negative. No gross improvement with trial of acyclovir over 48 hours. Given otherwise evidence of ongoing bacterial infection, less likely that herpes encephalitis as a result of mental status changes. Agree with discontinuing acyclovir. Non infectious differentials include status epilepticus versus opioid withdrawal. serum cryptococcal antigen pending check serum RPR HIV status negative Oral thrush: Continue Fluconazole 100mg po daily x 10 days [place] Fever of unclear etiology. Possible explanations could be lower extremities severe cellulitis, possible bilateral pneumonia, drug withdrawals. 3 attempts for LP were unsuccessful. Repeat Covid testing is pending. Asked the nurses also to check her vagina to make sure that there are no retained tampons. Seems to be improving. Continue antibiotics per Dr. Pierre. Appreciate her help. Acute metabolic encephalopathy secondary to infection and drugs. Withdrawal from drugs is also possible. Currently sedated. Hard to assess her current condition. Appreciate Dr. Delgado's help. Acute respiratory failure, hypercapnia secondary to above. Discussed with Dr. Rosario. His considering extubation. Thrush. Fluconazole. Anemia. Stable. Monitor. Hypertension. Well-controlled. Continue current management. Diabetes. Insulin sliding scale. DVT prophylaxis. Lovenox. Attestations Medical Necessity Statement*: The patient is in critical condition in ICU. Coding Level of Care Code Acute Body Stylist for [facility] Diagnoses Sepsis A40.8; R65.20; G93.41 Sepsis type: Streptococcus, other Sepsis acute organ dysfunction status: with acute organ dysfunction Severe sepsis acute organ dysfunction type: encephalopathy Severe sepsis shock status: without septic shock Streptococcal bacteremia R78.81; B95.5 Thrush B37.0 Hypoxemia R09.02 Cellulitis L03.115 Site of cellulitis: extremity Site of cellulitis of extremity: lower extremity Laterality: right Acute encephalopathy G93.40 Diabetes mellitus, type II E11.618 Diabetes mellitus emt intermediate insulin use: without long-term use Diabetes mellitus complication status: with diabetic arthropathy Diabetes mellitus complication detail: with other arthropathy
[2021-01-03 21:05] LABS: Glucose Point of Care 217 mg/dL (70-110)
[2021-01-03 23:42] LABS: Glucose Point of Care 176 mg/dL (70-110)
[2021-01-04] VITALS (62 sets, daily range): BP systolic 80–150; BP diastolic 40–76; PULSE 52–90; RESP 10–16; TEMP 36.4–37.4; O2SAT 90–100
[2021-01-04] MEDS: ipratropium-albuterol 3 mL Neb INHALATION ×4 (03:17→20:59)
[2021-01-04 04:48] LABS: Basophils % 0.2 %; Eosinophils # 0.2 10^3/uL (0.0-0.8); Eosinophils % 1.4 %; Hematocrit 23.9 % (37.0-47.0); Hemoglobin 7.1 g/dL (11.5-15.3); Lymphocytes # 1.2 10^3/uL (0.8-4.8); Lymphocytes % 9.3 %; Mean Corpuscular HGB Conc 29.7 g/dL (30.0-36.0); Mean Corpuscular Hemoglobin 30.5 pg (28.0-34.0); Mean Corpuscular Volume 102.6 fL (81-99); Monocytes # 0.7 10^3/uL (0.2-0.9); Neutrophils # 10.04 10^3/uL (1.8-7.7); Neutrophils % 80.8 %; Nucleated Red Blood Cells % 0.3 %; Platelet Count 226 10^3/cmm (130-400); Red Blood Count 2.33 10^6/uL (4.1-5.3); Red Cell Distribution Width 15.6 % (12.1-15.1); White Blood Count 12.4 10^3/uL (4.0-10.0)
[2021-01-04] MEDS: dexmedetomidine 400 MCG in sodium chloride 0.9% (100 ml) 100 ML 12.4 MCG IV (04:58)
[2021-01-04 05:08] LABS: Alanine Aminotransferase 10 U/L (0-33); Albumin Level 2.4 g/dL (3.5-5.2); Alkaline Phosphatase 69 IU/L (35-105); Anion Gap 6.9 (5-19); Aspartate Amino Transferase 10 U/L (0-32); Blood Urea Nitrogen 20 mg/dL (8-23); C Reactive Protein 8.8 mg/L (0.0-4.9); Calcium 8.3 mg/dL (8.5-10.5); Carbon Dioxide 32 mmol/L (22-29); Chloride 99 mmol/L (98-107); Globulin 2.7 g/dL (1.3-4.6); Glomerular Filtration Rate 362.3 mL/min (90-130); Glucose 123 mg/dL (65-115); Magnesium 1.9 mg/dL (1.7-2.3); Osmolality Calculated 282 mOsm/kg (285-295); Potassium 3.9 mmol/L (3.5-5.1); Sodium 134 mmol/L (136-145); Total Bilirubin 0.3 mg/dL (0.15-1.2); Total Protein 5.1 g/dL (6.6-8.7)
[2021-01-04 05:10] LABS: ABG PCO2 59.2 mmHg (35-45); ABG PH Result 7.36 (7.35-7.45); Alveolar-Arterial Oxygen Gradi 13.1 mmHg (5-10); Arterial Blood Gas Hematocrit 26.2 % (37-47); Base Excess ABG 6.8 mmol/L (-2.0-2.0); Blood Gas Allen Test Pos; Blood Gas Operator Identificat JB; Blood Gas Sample Site Radial, right; Blood Gas Sample Type Arterial; Blood Gas Tidal Volume 0.45; Carboxyhemoglobin 1.4 %THgb (0.4-20.1); HCO3 ABG 33.4 mmol/L (22-26); Ionized Calcium Level - ABG 1.2 mmol/L (1.1-1.4); Methemoglobin 0.9 % (0.4-1.5); Oxygen Device VENT; Oxygen Saturation ABG 96.3; PO2 ABG 78.6 mmHg (80.0-100.0); Potassium Level - ABG 3.8 mmol/L (3.5-5.0); Total Hemoglobin 8.5 g/dL (12-16)
[2021-01-04 05:17] LABS: NT Pro B Type Natriuretic Pept 433 pg/mL (0-125); Procalcitonin 0.16 ng/mL (0-0.5)
[2021-01-04] MEDS: vancomycin 1,000 MG in sodium chloride 0.9% 250 ML 250 MG IV ×3 (05:40→22:14)
[2021-01-04 06:14] LABS: Glucose Point of Care 215 mg/dL (70-110)
[2021-01-04] MEDS: famotidine 20 mg/2 mL INJ IVP ×2 (07:37→18:30)
[2021-01-04] MEDS: insulin nph human 100 units/1 mL 5 UNIT SUBCUT ×2 (08:25→20:02)
[2021-01-04 08:41] LABS: Coronavirus Test Green County Not Detected
--- NOTE | 2021-01-04 08:46 | PC.NURSE ---
0851 Dr. Rosario here, discontinued tube feeding and connected OG to suction as ordered in preperation for extubation today. Patient awake and acknowledges my explanation of the plan.
[2021-01-04] MEDS: budesonide 0.5 mg/2 mL Neb INHALATION ×2 (08:58→21:00)
[2021-01-04] MEDS: FUROsemide 10 mg/mL SDV 4mL 40 MG IVP (09:17)
--- NOTE | 2021-01-04 09:22 | PC.CHAP ---
Pastoral Care Encounter/Spiritual Assessment Type of Contact [] Declined hosted services analyst visit [] Patient/Family/Request visit [] Outpatient visit [] Follow-up visit [] Physician referral [] Code/Alert [x] Routine visit [] Staff referral [] Actively dying [] Patient sleeping [] Family support [] [] Out of room [] Palliative care [] [] Receiving care in room [] Pre-surgical visit [] Trauma [] Long length of stay [x] ICU visit [x] Other: ventilator Relational/Emotional Strength [] Patient feels connected with others/family/visitors/staff [] Distress [] Loneliness/isolation [] Abandonment Spirituality of Patient [] Person of Amee [] Attends Mandaen of their Amee [] Believes in Prayer [] Reads Bible or Taoist materials [] There are Spiritual issues to be addressed School Health Aide Interventions [x] Prayer [] Active listening [] Non-anxious presence [] Spiritual/emotional support [] Crisis/trauma care [] Spiritual counseling [] Bereavement support [] Provided bereavement packet [] Provided Bible/devotional materials [] Provided toy/stuffed animal, coloring book to patient or family member [] Provided Communion [] Anointing/[place] [] Salvation [x] Completed spiritual assessment [] Other: Impact on Illness or Injury [] Angry [] Fearful [] Anxious [] Often cries [] Exhaustion [] Unable to work [] Unable to attend jain [] Unable to walk/stand [] Unable to read [] Unable to drive [] Unable to eat/drink [] Unable to sleep [] Unable to be with family [] Patient intubated [] Other: Summary Time spent with patient
--- NOTE | 2021-01-04 10:44 | PC.NURSE ---
1035 Spray Machine Loader. extubated patient and placed on 2l n/c then decreased to 1l n/c with Sats mid 90's. Awake and alert, except thought she was in ICU in [place]. THen asking to talk to . Encouraged that we wait a little while to make sure she's gonna do well off the vent and give her voice a little while to rest, then we will contact her . Tolerating well.
--- NOTE | 2021-01-04 10:47 | P.PN_ITS ---
Subjective Subjective: Interval history: The patient was seen and examined this morning. She is sedated and intubated. The patient is able to follow commands and moving her extremities appropriately. No fever in the past 36 hours. Medications: Reviewed: Yes Vitals/I&O/Wt Last Vital Signs Temp 97.6 F 01/04/21 08:00 Pulse 68 01/04/21 10:00 Resp 12 01/04/21 10:00 BP 97/45 01/04/21 10:00 Pulse Ox 98 01/04/21 10:00 01/03/21 01/04/21 01/04/21 22:59 06:59 14:59 Intake Total 1867.686 / 4163.433 144.500 / 4307.933 250 / 250 Output Total 925 / 1725 250 / 1975 Balance 942.686 / 2438.433 -105.500 / 2332.933 250 / 250 Weight last 48 hrs Weight 229 lb 3.2 oz Physical Exam Narrative: EXAM NARRATIVE: General: The patient is intubated and sedated.mental status is much better. Following all commands HEENT: Bilateral myopic pupil, no nystagmus Neck: No JVD Respiratory: Auscultation: Clear to auscultation bilaterally Cardiovascular: Regular rate and rhythm, S1-S2 present, no murmur, bilateral mild peripheral edema on top of chronic lymphedema Abdomen: Soft, nontender, nondistended, positive bowel sound Musculoskeletal: Severe deformity of the feet Skin: Rash over bilateral lower extremities, better than before Neuro: Patient is mildly sedated, able to follow commands, moving all extremities spontaneously Urinary Catheter Management^: Garber: Cath Placed During This Visit: yes Reason for Continuing Indwelling Catheter: Accurate Measurement of Urinary Output in Critically Ill Patients Urinary Catheter Date of Insertion: 12/27/20 Urinary Catheter Time of Insertion: 00:51 Data : 01/04/21 04:10 01/04/21 04:10 Micro: Microbiology 12/29/20 17:54 Blood Culture - Final Blood NO GROWTH AFTER 5 DAYS 12/29/20 17:57 Blood Culture - Final Blood NO GROWTH AFTER 5 DAYS 01/01/21 14:33 Urine Culture - Final Urine Catheterized Attestation for Other Data: I personally reviewed and interpreted the following: Other data: I have reviewed the patient's laboratory microbiologic and radiologic data. The leukocytosis is getting better. She most likely has chronic hypercapnic respiratory failure, possibly from COPD or obesity hypoventilation syndrome. A&P Assessment and plan (1) Acute encephalopathy: Her mental status is significantly better today. The patient is able to follow commands. She is ready for extubation. Status: Acute (2) Acute respiratory failure with hypoxia: The patient is ready for extubation. The patient likely has a component of heart failure with preserved ejection fraction. She will require diuresis after extubation. I have given her a dose of 40 mg of IV Lasix today. Status: Acute (3) MRSA pneumonia: The patient is now on vancomycin and Levaquin. Status: Acute (4) Chronic hypercapnic respiratory failure: The patient's blood gas is consistent with chronic hypercapnic respiratory failure. The patient will need further work-up with pulmonary function test and sleep study as outpatient to determine the etiology for this chronic hypercapnic respiratory failure. Status: Acute (5) Substance abuse: The patient has history of substance abuse. This time also her urine tox screen was positive for methamphetamine. Status: Acute (6) Hypernatremia: This has resolved. Status: Acute Attestations Medical Necessity Statement*: Will defer to the primary team Coding Level of Care Code Acute Desktop Publishing Specialist for [facility] Diagnoses Acute encephalopathy G93.40 Acute respiratory failure with hypoxia J96.01 MRSA pneumonia J15.212 Chronic hypercapnic respiratory failure J96.12 Substance abuse F19.10 Hypernatremia E87.0
[2021-01-04] MEDS: amlodipine 10 mg Tablet PO (11:10)
[2021-01-04] MEDS: methadone 10 mg Tablet 20 MG PO (11:11)
[2021-01-04] MEDS: venlafaxine 75 mg Tablet PO ×2 (11:11→18:29)
[2021-01-04] MEDS: tizanidine 4 mg Tablet 2 MG PO ×3 (11:12→21:08)
[2021-01-04] MEDS: fluconazole 100 mg Tablet NG-TUBE ×2 (11:12→11:23)
[2021-01-04] MEDS: aspirin 81 mg EC Tablet PO (11:13)
[2021-01-04] MEDS: nystatin powder 15 gm Btl 1 APPLIC TOPICAL ×2 (11:18→18:32)
[2021-01-04] MEDS: enoxaparin 40 mg/0.4 mL Syringe SUBCUT (11:21)
--- NOTE | 2021-01-04 12:59 | PC.NURSE ---
1300 Wasted 47ml Fentanyl from drip that was disontinued. Witnessed by Alondra VILLAFANA in ICU.
[2021-01-04 13:46] LABS: Glucose Point of Care 128 mg/dL (70-110)
[2021-01-04 14:54] LABS: Glucose Point of Care 157 mg/dL (70-110)
[2021-01-04 14:54] LABS: Glucose Point of Care 159 mg/dL (70-110)
--- NOTE | 2021-01-04 15:22 | PM.PN ---
Subjective Subjective: Interval history: Off sedation, extubated. Awake alert and oriented. No acute distress. Mood and affect are appropriate. Responses are adequate. Denies any uncontrolled pain. No nausea or vomiting. No shortness of breath or cough. No diarrhea. Medications: Reviewed: Yes Medication Review Details: Generic Name Dose Route Start Last Admin Trade Name Rodq PRN Reason Stop Dose Admin Albuterol/Ipratrop ium 3 ml 12/27/20 06:43 12/27/20 09:29 Ipratropium-Albu terol 3 Ml Neb INHALATION 3 ml Q6H.RESPIRATORY P RN Administration SHORTNESS OF IRA TH Albuterol/Ipratrop ium 3 ml 12/27/20 15:00 01/04/21 14:46 Ipratropium-Albu terol 3 Ml Neb INHALATION 3 ml Q6H.RESPIRATORY S CH Administration Amlodipine Besylat e 10 mg 01/02/21 17:00 01/04/21 11:10 Amlodipine 10 Mg Tablet PO 10 mg DAILY RANJIT Administration Aspirin 81 mg 12/30/20 09:00 01/04/21 11:13 Aspirin 81 Mg Ec Tablet PO 81 mg DAILY RANJIT Administration Budesonide 0.5 mg 12/27/20 20:00 01/04/21 08:58 Budesonide 0.5 M g/2 Ml Neb INHALATION 0.5 mg BID.RESPIRATORY S CH Administration Enoxaparin Sodium 40 mg 01/02/21 11:00 01/04/21 11:21 Enoxaparin 40 Mg /0.4 Ml Syringe SUBCUT 40 mg Q24H RANJIT Administration Famotidine 20 mg 12/27/20 07:00 01/04/21 07:37 Famotidine 20 Mg /2 Ml Inj IVP 20 mg Q12H RANJIT Administration Fluconazole 100 mg 01/01/21 09:00 01/04/21 11:23 Fluconazole 100 Mg Tablet NG-TUBE 01/11/21 08:59 100 mg DAILY RANJIT Administration Dexmedetomidine HC l 400 mcg/ 104 mls @ 0 mls/h r 12/27/20 10:00 01/04/21 09:15 Sodium Chloride IV 0 mcg/kg/hr .Q0M RANJIT 0 mls/hr Titration Protocol Per Protocol Fentanyl 1,000 mcg / Sodium 100 mls @ 0 mls/h r 12/29/20 06:00 01/04/21 13:03 Chloride IV 0 mcg/hr .Q0M RANJIT 0 mls/hr Titration Protocol Per Protocol Acetaminophen 1,000 mg in 100 m ls @ 400 mls/hr 12/31/20 16:18 01/03/21 09:43 Ofirmev IV Infused Q8H PRN Infusion FEVER Levofloxacin/Dextr ose 750 mg in 150 mls @ 100 mls/hr 12/31/20 16:15 01/03/21 18:51 Levaquin-D5w IV 01/05/21 16:14 Infused Q24H RANJIT Infusion Protocol Vancomycin HCl 1,0 00 mg/ 250 mls @ 250 mls /hr 01/04/21 06:00 01/04/21 13:38 Sodium Chloride IV 250 mls/hr Q8H RANJIT Administration Insulin Aspart 0 unit 12/27/20 21:00 01/03/21 21:09 Insulin Aspart 1 00 Unit/1 Ml SUBCUT 3 unit BEDTIME RANJIT Administration Protocol Insulin Aspart 0 unit 12/28/20 00:00 01/04/21 13:09 Insulin Aspart 1 00 Unit/1 Ml SUBCUT Not Given Q6H [facility] Protocol Insulin Human NPH 5 unit 01/04/21 08:00 01/04/21 08:25 Insulin Nph Genoveva n 100 Units/1 Ml SUBCUT 5 unit Q12H RANJIT Administration Methadone HCl 20 mg 12/31/20 16:15 01/04/21 11:11 Methadone 10 Mg Tablet PO 20 mg DAILY RANJIT Administration Nystatin 1 applic 12/27/20 09:00 01/04/21 11:18 Nystatin Powder 15 Gm Btl TOPICAL 1 applic BID RANJIT Administration Tizanidine HCl 2 mg 01/02/21 15:00 01/04/21 15:02 Tizanidine 4 Mg Tablet PO 2 mg TID RANJIT Administration Venlafaxine HCl 75 mg 01/02/21 18:00 01/04/21 11:11 Venlafaxine 75 M g Tablet PO 75 mg BID RANJIT Administration Vitals/I&O/Wt Last Vital Signs Temp 99.3 F 01/04/21 12:00 Pulse 83 01/04/21 14:50 Resp 16 01/04/21 14:40 BP 114/55 01/04/21 14:00 Pulse Ox 94 01/04/21 14:40 01/04/21 01/04/21 01/04/21 06:59 14:59 22:59 Intake Total 144.500 / 4307.933 353.613 / 353.613 Output Total 250 / 1975 Balance -105.500 / 2332.933 353.613 / 353.613 Weight last 48 hrs Weight 103.963 kg Physical Exam Narrative: EXAM NARRATIVE: No acute distress. Mood and affect are appropriate. Pulses are adequate. Skin is warm and dry. Moist mucous membranes Eyes Ashanti, extraocular muscles are intact. Normal speech. Neck no JVD Lungs clear breath sounds bilaterally. No respiratory distress Heart S1, S2, regular tachycardia Abdomen is soft, nontender, bowel sounds are present Bilateral severe edema and chronic venous stasis. Cellulitis in the right lower extremity which is much better today. Hyperemia and warmth have improved no cyanosis. No calf tenderness. Urinary Catheter Management^: Garber: Cath Placed During This Visit: yes Reason for Continuing Indwelling Catheter: Accurate Measurement of Urinary Output in Critically Ill Patients Urinary Catheter Date of Insertion: 12/27/20 Urinary Catheter Time of Insertion: 00:51 Data : 01/04/21 04:10 01/04/21 04:10 Micro: Microbiology 12/29/20 17:54 Blood Culture - Final Blood NO GROWTH AFTER 5 DAYS 12/29/20 17:57 Blood Culture - Final Blood NO GROWTH AFTER 5 DAYS A&P Assessment and plan (1) Sepsis: Status: Acute Qualifiers: Sepsis type: Streptococcus, other Sepsis acute organ dysfunction status: with acute organ dysfunction Severe sepsis acute organ dysfunction type: encephalopathy Severe sepsis shock status: without septic shock Qualified Code(s): A40.8 - Other streptococcal sepsis; R65.20 - Severe sepsis without septic shock; G93.41 - Metabolic encephalopathy (2) Streptococcal bacteremia: Status: Acute (3) Thrush: Status: Acute (4) Hypoxemia: Not chronically on oxygen, history of prior tobacco use, CTA with some emphysematous changes but otherwise unremarkable. Status: Acute (5) Cellulitis: Bilateral lower extremities, left more significant than right. Status: Acute Qualifiers: Site of cellulitis: extremity Site of cellulitis of extremity: lower extremity Laterality: right Qualified Code(s): L03.115 - Cellulitis of right lower limb (6) Acute encephalopathy: Status: Acute (7) Diabetes mellitus, type II: Looks to chronically only be on Metformin, currently with hyperglycemia Status: Chronic Qualifiers: Diabetes mellitus termite control servicer insulin use: without termite control servicer use Diabetes mellitus complication status: with diabetic arthropathy Diabetes mellitus complication detail: with other arthropathy Qualified Code(s): E11.618 - Type 2 diabetes mellitus with other diabetic arthropathy Additional A&P Information Ms. Snyder is a 60-year-old female with complicated past medical history, currently admitted since December 27, 2020 after presenting with altered mental status of unclear etiology. Thus far work-up has been significant for presence of streptococcal bacteremia, unclear source, however could be skin source from lower extremity cellulitis versus respiratory source from developing pneumonia. Hospital course has also been complicated by acute hypoxic respiratory failure resulting in emergent intubation, currently on mechanical ventilation. #Streptococcal septicemia #MRSA pneumonia #Encephalopathy, can be metabolic encephalopathy from sepsis -Blood culture noted to be positive for group G streptococcus from day of admission, subsequent blood cultures have not revealed any growth. Unclear source of septicemia at this present time, potential sources could be lower extremity cellulitis. Patient is noted to have chronic lymphedema with changes of stasis dermatitis affecting both lower extremities. Right leg does have more prominent changes on the left side. There was noted to be cellulitis on the right lower extremity, which appears to be improving per review of chart notes. No gross edema, warmth or tenderness noted at the right knee joint which is status post replacement. No other gross joint swelling noted. There is small ulceration over the right heel, pictures of which have been reviewed from the podiatry note, appears to be chronic in appearance. No underlying osteomyelitis noted on CT. Even if present, chronic osteomyelitis is highly unlikely to be the source of current sepsis. Patient is noted to be edentulous, very poor oral hygiene, thrush noted in the mouth. Group C streptococcus could be of oropharyngeal origin as well. CT of lumbosacral spine negative fo osteomyelitis/discitis/epidural abscess Also has been on vancomycin since admission which covers for Streptococcus. Recommend discontinuing imipenem as vancomycin will appropriately cover for streptococcus and MRSA at this time. Interim admission events have included intubation for acute hypoxic respiratory failure with development of bilateral infiltrates in both chest. This could represent worsening pneumonia, especially MRSA pneumonia given that sputum culture is positive for this agent. Other possible differentials include COVID-19 pneumonia, though PCR and antigen were negative upon admission. Possibility of septic embolization from bacteremia remains a possibility, TTE negative for vegetations. Viral pneumonitis could present similarly, respiratory viral panel taken and remains pending. Patient has been started on steroids upon admission due to concern for poor respiratory status and noted wheezing on exam. Though I do not see any chronic steroids listed on her home medications, possibility of disseminated strongyloidosis needs to be considered, check strongyloidiasis antibody for the same. Unlikely to be pneumocystis pneumonitis as there were no infiltrates on day of admission, unlikely for the latter condition to develop within 3 days in a patient who has not otherwise been on long-term steroids and is HIV negative. Acute encephalopathy, present since admission, likely related to metabolic encephalopathy from sepsis. Cannot exclude possibility of bacterial meningitis. LP was unable to be performed in spite of attempts by reflesher and radiology, likely contributed by body habitus. CT head negative. No gross improvement with trial of acyclovir over 48 hours. Given otherwise evidence of ongoing bacterial infection, less likely that herpes encephalitis as a result of mental status changes. Agree with discontinuing acyclovir. Non infectious differentials include status epilepticus versus opioid withdrawal. serum cryptococcal antigen pending check serum RPR HIV status negative Oral thrush: Continue Fluconazole 100mg po daily x 10 days [place] Fever of unclear etiology. Possible explanations could be lower extremities severe cellulitis, possible bilateral pneumonia, drug withdrawals. 3 attempts for LP were unsuccessful. Repeat Covid testing is pending. Improved significantly. A febrile for last 24 hours. Procalcitonin level is normalized. CRP is down significantly. White blood cells are down. Continue antibiotics per Dr. Winters. Appreciate her help. Acute metabolic encephalopathy secondary to infection and drugs. Withdrawal from drugs was suspected. Resolved. Currently stable. Appreciate Dr. Delgado's input. Acute respiratory failure. Resolved. Extubated. Appreciate Dr. Rosario's input. Thrush. Fluconazole. Anemia. Stable. Monitor. Hypertension. Well-controlled. Continue current management. Diabetes. Insulin sliding scale. DVT prophylaxis. Lovenox. The plan of care was discussed with the patient. She verbalized understanding and agreement. Attestations Medical Necessity Statement*: The patient is just extubated. Still in ICU. Requires very close monitoring. Coding Level of Care Code Acute Discharging Machine Operator for [facility] Diagnoses Sepsis A40.8; R65.20; G93.41 Sepsis type: Streptococcus, other Sepsis acute organ dysfunction status: with acute organ dysfunction Severe sepsis acute organ dysfunction type: encephalopathy Severe sepsis shock status: without septic shock Streptococcal bacteremia R78.81; B95.5 Thrush B37.0 Hypoxemia R09.02 Cellulitis L03.115 Site of cellulitis: extremity Site of cellulitis of extremity: lower extremity Laterality: right Acute encephalopathy G93.40 Diabetes mellitus, type II E11.618 Diabetes mellitus nursing home insulin use: without nursing home use Diabetes mellitus complication status: with diabetic arthropathy Diabetes mellitus complication detail: with other arthropathy
[2021-01-04] MEDS: levofloxacin-dextrose 5 % 750 MG/150 ML PREMIX 100 MG IV (15:53)
[2021-01-05] VITALS (55 sets, daily range): BP systolic 98–155; BP diastolic 44–109; PULSE 73–104; RESP 15–17; TEMP 36.9–37; O2SAT 88–100
[2021-01-05 00:03] LABS: Glucose Point of Care 88 mg/dL (70-110)
[2021-01-05] MEDS: ipratropium-albuterol 3 mL Neb INHALATION ×3 (03:17→14:29)
[2021-01-05 03:49] LABS: Basophils % 0.2 %; Eosinophils # 0.1 10^3/uL (0.0-0.8); Eosinophils % 0.8 %; Hematocrit 27.4 % (37.0-47.0); Hemoglobin 8.3 g/dL (11.5-15.3); Lymphocytes % 6.1 %; Mean Corpuscular HGB Conc 30.3 g/dL (30.0-36.0); Mean Corpuscular Hemoglobin 30.6 pg (28.0-34.0); Mean Corpuscular Volume 101.1 fL (81-99); Mean Platelet Volume 10.8 fL (7.4-10.4); Monocytes # 0.9 10^3/uL (0.2-0.9); Monocytes % 5.4 %; Neutrophils # 13.46 10^3/uL (1.8-7.7); Neutrophils % 85.3 %; Nucleated Red Blood Cells % 0.2 %; Platelet Count 291 10^3/cmm (130-400); Red Blood Count 2.71 10^6/uL (4.1-5.3); Red Cell Distribution Width 16.2 % (12.1-15.1); White Blood Count 15.8 10^3/uL (4.0-10.0)
[2021-01-05 04:11] LABS: Alanine Aminotransferase 11 U/L (0-33); Albumin Level 2.6 g/dL (3.5-5.2); Alkaline Phosphatase 79 IU/L (35-105); Anion Gap 9.5 (5-19); Aspartate Amino Transferase 15 U/L (0-32); Blood Urea Nitrogen 13 mg/dL (8-23); Calcium 8.1 mg/dL (8.5-10.5); Carbon Dioxide 33 mmol/L (22-29); Chloride 99 mmol/L (98-107); Globulin 2.8 g/dL (1.3-4.6); Glomerular Filtration Rate 125.9 mL/min (90-130); Glucose 83 mg/dL (65-115); Magnesium 1.7 mg/dL (1.7-2.3); Osmolality Calculated 285 mOsm/kg (285-295); Potassium 3.5 mmol/L (3.5-5.1); Sodium 138 mmol/L (136-145); Total Bilirubin 0.4 mg/dL (0.15-1.2); Total Protein 5.4 g/dL (6.6-8.7)
[2021-01-05] MEDS: vancomycin 1,000 MG in sodium chloride 0.9% 250 ML 250 MG IV ×3 (05:09→21:51)
[2021-01-05 06:01] LABS: Glucose Point of Care 89 mg/dL (70-110)
[2021-01-05 06:01] LABS: Glucose Point of Care 104 mg/dL (70-110)
[2021-01-05] MEDS: famotidine 20 mg/2 mL INJ IVP ×2 (07:36→20:14)
[2021-01-05] MEDS: insulin nph human 100 units/1 mL 5 UNIT SUBCUT ×2 (07:37→20:18)
[2021-01-05] MEDS: budesonide 0.5 mg/2 mL Neb INHALATION (08:22)
[2021-01-05] MEDS: nystatin powder 15 gm Btl 1 APPLIC TOPICAL ×2 (08:26→18:08)
[2021-01-05] MEDS: venlafaxine 75 mg Tablet PO ×2 (08:27→18:08)
[2021-01-05] MEDS: tizanidine 4 mg Tablet 2 MG PO ×3 (08:27→20:13)
[2021-01-05] MEDS: aspirin 81 mg EC Tablet PO (08:27)
[2021-01-05] MEDS: amlodipine 10 mg Tablet PO (08:29)
[2021-01-05] MEDS: methadone 10 mg Tablet 20 MG PO (08:29)
--- NOTE | 2021-01-05 10:22 | PC.CHAP ---
Pastoral Care Encounter/Spiritual Assessment Type of Contact [] Declined equipment engineering technician visit [] Patient/Family/Request visit [] Outpatient visit [] Follow-up visit [] Physician referral [] Code/Alert [x] Routine visit [] Staff referral [] Actively dying [] Patient sleeping [] Family support [] [] Out of room [] Palliative care [] [] Receiving care in room [] Pre-surgical visit [] Trauma [] Long length of stay [x] ICU visit [] Other: breathing on own.. no ventilator Relational/Emotional Strength [] Patient feels connected with others/family/visitors/staff [] Distress [] Loneliness/isolation [] Abandonment Spirituality of Patient [] Person of Amee [] Attends Sikh of their Amee [] Believes in Prayer [] Reads Bible or Episcopalian materials [] There are Spiritual issues to be addressed Rug Washer Interventions [x] Prayer [] Active listening [] Non-anxious presence [] Spiritual/emotional support [] Crisis/trauma care [] Spiritual counseling [] Bereavement support [] Provided bereavement packet [] Provided Bible/devotional materials [] Provided toy/stuffed animal, coloring book to patient or family member [] Provided Communion [] Anointing/[place] [] Salvation [x] Completed spiritual assessment [] Other: Impact on Illness or Injury [] Angry [] Fearful [] Anxious [] Often cries [] Exhaustion [] Unable to work [] Unable to attend rastafari [] Unable to walk/stand [] Unable to read [] Unable to drive [] Unable to eat/drink [] Unable to sleep [] Unable to be with family [] Patient intubated [] Other: Summary Time spent with patient
[2021-01-05] MEDS: enoxaparin 40 mg/0.4 mL Syringe SUBCUT (10:38)
[2021-01-05] MEDS: potassium chloride ER 20 mEq Tablet PO (10:39)
[2021-01-05] MEDS: magnesium oxide 400 mg tablet PO ×2 (10:39→18:08)
--- NOTE | 2021-01-05 11:33 | P.PN_ITS ---
Subjective Subjective: Interval history: Remained stable. No significant overnight events. Denies any active complaints. Reports feeling better. No chills. No nausea or vomiting. No chest pain, shortness of breath. Reports cough with some mucus. No abdominal pain or diarrhea. Medications: Reviewed: Yes Medication Review Details: Generic Name Dose Route Start Last Admin Trade Name Jensen PRN Reason Stop Dose Admin Albuterol/Ipratrop ium 3 ml 12/27/20 06:43 12/27/20 09:29 Ipratropium-Albu terol 3 Ml Neb INHALATION 3 ml Q6H.RESPIRATORY P RN Administration SHORTNESS OF IRA TH Albuterol/Ipratrop ium 3 ml 12/27/20 15:00 01/05/21 08:22 Ipratropium-Albu terol 3 Ml Neb INHALATION 3 ml Q6H.RESPIRATORY S CH Administration Amlodipine Besylat e 10 mg 01/02/21 17:00 01/05/21 08:29 Amlodipine 10 Mg Tablet PO 10 mg DAILY RANJIT Administration Aspirin 81 mg 12/30/20 09:00 01/05/21 08:27 Aspirin 81 Mg Ec Tablet PO 81 mg DAILY RANJIT Administration Budesonide 0.5 mg 12/27/20 20:00 01/05/21 08:22 Budesonide 0.5 M g/2 Ml Neb INHALATION 0.5 mg BID.RESPIRATORY S CH Administration Enoxaparin Sodium 40 mg 01/02/21 11:00 01/05/21 10:38 Enoxaparin 40 Mg /0.4 Ml Syringe SUBCUT 40 mg Q24H RANJIT Administration Famotidine 20 mg 12/27/20 07:00 01/05/21 07:36 Famotidine 20 Mg /2 Ml Inj IVP 20 mg Q12H RANJIT Administration Fluconazole 100 mg 01/01/21 09:00 01/04/21 11:23 Fluconazole 100 Mg Tablet NG-TUBE 01/11/21 08:59 100 mg DAILY RANJIT Administration Dexmedetomidine HC l 400 mcg/ 104 mls @ 0 mls/h r 12/27/20 10:00 01/04/21 09:15 Sodium Chloride IV 0 mcg/kg/hr .Q0M RANJIT 0 mls/hr Titration Protocol Per Protocol Acetaminophen 1,000 mg in 100 m ls @ 400 mls/hr 12/31/20 16:18 01/03/21 09:43 Ofirmev IV Infused Q8H PRN Infusion FEVER Levofloxacin/Dextr ose 750 mg in 150 mls @ 100 mls/hr 12/31/20 16:15 01/04/21 19:53 Levaquin-D5w IV 01/05/21 16:14 Infused Q24H RANJIT Infusion Protocol Vancomycin HCl 1,0 00 mg/ 250 mls @ 250 mls /hr 01/04/21 06:00 01/05/21 06:06 Sodium Chloride IV 0 mls/hr Q8H RANJIT Infusion Insulin Aspart 0 unit 12/27/20 21:00 01/04/21 21:06 Insulin Aspart 1 00 Unit/1 Ml SUBCUT Not Given BEDTIME [facility] Protocol Insulin Aspart 0 unit 12/28/20 00:00 01/05/21 05:13 Insulin Aspart 1 00 Unit/1 Ml SUBCUT Not Given Q6H [facility] Protocol Insulin Human NPH 5 unit 01/04/21 08:00 01/05/21 07:37 Insulin Nph Genoveva n 100 Units/1 Ml SUBCUT 5 unit Q12H RANJIT Administration Magnesium Oxide 400 mg 01/05/21 09:00 01/05/21 10:39 Magnesium Oxide 400 Mg Tablet PO 01/05/21 18:01 400 mg BID RANJIT Administration Methadone HCl 20 mg 12/31/20 16:15 01/05/21 08:29 Methadone 10 Mg Tablet PO 20 mg DAILY RAJNIT Administration Nystatin 1 applic 12/27/20 09:00 01/05/21 08:26 Nystatin Powder 15 Gm Btl TOPICAL 1 applic BID RANJIT Administration Tizanidine HCl 2 mg 01/02/21 15:00 01/05/21 08:27 Tizanidine 4 Mg Tablet PO 2 mg TID RANJIT Administration Venlafaxine HCl 75 mg 01/02/21 18:00 01/05/21 08:27 Venlafaxine 75 M g Tablet PO 75 mg BID RANJIT Administration Vitals/I&O/Wt Last Vital Signs Temp 98.6 F 01/05/21 08:00 Pulse 85 01/05/21 10:30 Resp 15 01/05/21 08:29 BP 129/48 01/05/21 10:30 Pulse Ox 92 01/05/21 10:30 01/04/21 01/05/21 01/05/21 22:59 06:59 14:59 Intake Total 420 / 773.613 487.5 / 1261.113 100 / 100 Output Total 2175 / 2175 450 / 2625 Balance -1755 / -1401.387 37.5 / -1363.887 100 / 100 Physical Exam Narrative: EXAM NARRATIVE: No acute distress. Mood and affect are appropriate. Pulses are adequate. Skin is warm and dry. Moist mucous membranes Eyes Ashanti, extraocular muscles are intact. Normal speech. Neck no JVD Lungs clear breath sounds bilaterally. No respiratory distress Heart S1, S2, regular tachycardia Abdomen is soft, nontender, bowel sounds are present Bilateral severe edema and chronic venous stasis. Cellulitis in the right more than left lower extremities. Hyperemia and warmth have improved, no cyanosis. No calf tenderness. Urinary Catheter Management^: Garber: Cath Placed During This Visit: yes Reason for Continuing Indwelling Catheter: Accurate Measurement of Urinary Output in Critically Ill Patients Urinary Catheter Date of Insertion: 12/27/20 Urinary Catheter Time of Insertion: 00:51 Data : 01/05/21 03:20 01/05/21 03:20 A&P Assessment and plan (1) Sepsis: Status: Acute Qualifiers: Sepsis type: Streptococcus, other Sepsis acute organ dysfunction status: with acute organ dysfunction Severe sepsis acute organ dysfunction type: encephalopathy Severe sepsis shock status: without septic shock Qualified Code(s): A40.8 - Other streptococcal sepsis; R65.20 - Severe sepsis without septic shock; G93.41 - Metabolic encephalopathy (2) Streptococcal bacteremia: Status: Acute (3) Thrush: Status: Acute (4) Hypoxemia: Not chronically on oxygen, history of prior tobacco use, CTA with some emphysematous changes but otherwise unremarkable. Status: Acute (5) Cellulitis: Bilateral lower extremities, left more significant than right. Status: Acute Qualifiers: Site of cellulitis: extremity Site of cellulitis of extremity: lower extremity Laterality: right Qualified Code(s): L03.115 - Cellulitis of right lower limb (6) Acute encephalopathy: Status: Acute (7) Diabetes mellitus, type II: Looks to chronically only be on Metformin, currently with hyperglycemia Status: Chronic Qualifiers: Diabetes mellitus [facility] insulin use: without [facility] use Diabetes mellitus complication status: with diabetic arthropathy Diabetes mellitus complication detail: with other arthropathy Qualified Code(s): E11.618 - Type 2 diabetes mellitus with other diabetic arthropathy Additional A&P Information Ms. Snyder is a 60-year-old female with complicated past medical history, currently admitted since December 27, 2020 after presenting with altered mental status of unclear etiology. Thus far work-up has been significant for presence of streptococcal bacteremia, unclear source, however could be skin source from lower extremity cellulitis versus respiratory source from developing pneumonia. Hospital course has also been complicated by acute hypoxic respiratory failure resulting in emergent intubation, currently on mechanical ventilation. #Streptococcal septicemia #MRSA pneumonia #Encephalopathy, can be metabolic encephalopathy from sepsis -Blood culture noted to be positive for group G streptococcus from day of admission, subsequent blood cultures have not revealed any growth. Unclear source of septicemia at this present time, potential sources could be lower extremity cellulitis. Patient is noted to have chronic lymphedema with changes of stasis dermatitis affecting both lower extremities. Right leg does have more prominent changes on the left side. There was noted to be cellulitis on the right lower extremity, which appears to be improving per review of chart notes. No gross edema, warmth or tenderness noted at the right knee joint which is status post replacement. No other gross joint swelling noted. There is small ulceration over the right heel, pictures of which have been reviewed from the podiatry note, appears to be chronic in appearance. No underlying osteomyelitis noted on CT. Even if present, chronic osteomyelitis is highly unlikely to be the source of current sepsis. Patient is noted to be edentulous, very poor oral hygiene, thrush noted in the mouth. Group C streptococcus could be of oropharyngeal origin as well. CT of lumbosacral spine negative fo osteomyelitis/discitis/epidural abscess Also has been on vancomycin since admission which covers for Streptococcus. Recommend discontinuing imipenem as vancomycin will appropriately cover for streptococcus and MRSA at this time. Interim admission events have included intubation for acute hypoxic respiratory failure with development of bilateral infiltrates in both chest. This could represent worsening pneumonia, especially MRSA pneumonia given that sputum culture is positive for this agent. Other possible differentials include COVID- 19 pneumonia, though PCR and antigen were negative upon admission. Possibility of septic embolization from bacteremia remains a possibility, TTE negative for vegetations. Viral pneumonitis could present similarly, respiratory viral panel taken and remains pending. Patient has been started on steroids upon admission due to concern for poor respiratory status and noted wheezing on exam. Though I do not see any chronic steroids listed on her home medications, possibility of disseminated strongyl oidosis needs to be considered, check strongyloidiasis antibody for the same. Unlikely to be pneumocystis pneumonitis as there were no infiltrates on day of admission, unlikely for the latter condition to develop within 3 days in a patient who has not otherwise been on long-term steroids and is HIV negative. Acute encephalopathy, present since admission, likely related to metabolic encephalopathy from sepsis. Cannot exclude possibility of bacterial meningitis. LP was unable to be performed in spite of attempts by [employer] human[employer] chair and radiology, likely contributed by body habitus. CT head negative. No gross improvement with trial of acyclovir over 48 hours. Given otherwise evidence of ongoing bacterial infection, less likely that herpes encephalitis as a result of mental status changes. Agree with discontinuing acyclovir. Non infectious differentials include status epilepticus versus opioid withdrawal. serum cryptococcal antigen pending check serum RPR HIV status negative Oral thrush: Continue Fluconazole 100mg po daily x 10 days [place] Fever. Possible explanations could be lower extremities severe cellulitis, possible bilateral pneumonia, drug withdrawals. 3 attempts for LP were unsuccessful. Covid testing was negative. Improved significantly. Remains afebrile for last 48 hours. Procalcitonin level is normalized. CRP is down significantly. Continue antibiotics per Dr. Winters. Appreciate her help. Acute metabolic encephalopathy secondary to infection and drugs. Withdrawal from drugs was suspected. Resolved. Currently stable. Appreciate Dr. Delgado's input. Acute respiratory failure. Resolved. Extubated. Appreciate Dr. Rosario's input. Thrush. Fluconazole. Anemia. Stable. Monitor. Hypertension. Well-controlled. Continue current management. Diabetes. Insulin sliding scale. DVT prophylaxis. Lovenox. The plan of care was discussed with the patient. She verbalized understanding and agreement. Attestations Medical Necessity Statement*: Still requires IV antibiotics and close monitoring. Coding Level of Care Code Acute Hot Dip [employer] for [facility] Fwd Diagnoses Sepsis A40.8; R65.20; G93.41 Sepsis type: Streptococcus, other Sepsis acute organ dysfunction status: with acute organ dysfunction Severe sepsis acute organ dysfunction type: encephalopathy Severe sepsis shock status: without septic shock Streptococcal bacteremia R78.81; B95.5 Thrush B37.0 Hypoxemia R09.02 Cellulitis L03.115 Site of cellulitis: extremity Site of cellulitis of extremity: lower extremity Laterality: right Acute encephalopathy G93.40 Diabetes mellitus, type II E11.618 Diabetes mellitus [employer] insulin use: without [facility] use Diabetes mellitus complication status: with diabetic arthropathy Diabetes mellitus complication detail: with other arthropathy
[2021-01-05 18:02] LABS: Glucose Point of Care 94 mg/dL (70-110)
[2021-01-05 20:28] LABS: Glucose Point of Care 125 mg/dL (70-110)
[2021-01-06] VITALS (39 sets, daily range): BP systolic 117–146; BP diastolic 52–74; PULSE 76–101; RESP 13–20; TEMP 36.8–37.2; O2SAT 91–100
[2021-01-06] MEDS: ipratropium-albuterol 3 mL Neb INHALATION ×4 (03:27→20:24)
[2021-01-06 05:29] LABS: Vancomycin Trough 17.3 ug/mL (10-15)
[2021-01-06 05:43] LABS: C Reactive Protein 112.6 mg/L (0.0-4.9); Magnesium 1.8 mg/dL (1.7-2.3)
[2021-01-06 05:46] LABS: Procalcitonin 0.12 ng/mL (0-0.5)
[2021-01-06] MEDS: vancomycin 1,000 MG in sodium chloride 0.9% 250 ML 250 MG IV ×3 (05:50→22:36)
[2021-01-06 05:57] LABS: Albumin Level 2.5 g/dL (3.5-5.2); Blood Urea Nitrogen 9 mg/dL (8-23); Calcium 7.7 mg/dL (8.5-10.5); Carbon Dioxide 30 mmol/L (22-29); Chloride 100 mmol/L (98-107); Glomerular Filtration Rate 362.3 mL/min (90-130); Glucose 91 mg/dL (65-115); Phosphorus 2.3 mg/dL (2.5-4.5); Sodium 139 mmol/L (136-145)
[2021-01-06] MEDS: famotidine 20 mg/2 mL INJ IVP (06:00)
[2021-01-06 06:02] LABS: Anion Gap 12.8 (5-19); Potassium 3.8 mmol/L (3.5-5.1)
[2021-01-06 06:56] LABS: Basophils % 0.2 %; Eosinophils # 0.1 10^3/uL (0.0-0.8); Eosinophils % 0.7 %; Hematocrit 25.7 % (37.0-47.0); Hemoglobin 7.8 g/dL (11.5-15.3); Lymphocytes # 0.9 10^3/uL (0.8-4.8); Mean Corpuscular HGB Conc 30.4 g/dL (30.0-36.0); Mean Corpuscular Hemoglobin 31.3 pg (28.0-34.0); Mean Corpuscular Volume 103.2 fL (81-99); Mean Platelet Volume 10.9 fL (7.4-10.4); Monocytes # 0.9 10^3/uL (0.2-0.9); Monocytes % 7.4 %; Neutrophils # 10.33 10^3/uL (1.8-7.7); Neutrophils % 83.6 %; Nucleated Red Blood Cells % 0.3 %; Platelet Count 266 10^3/cmm (130-400); Red Blood Count 2.49 10^6/uL (4.1-5.3); Red Cell Distribution Width 17.6 % (12.1-15.1); White Blood Count 12.4 10^3/uL (4.0-10.0)
[2021-01-06 07:49] LABS: Glucose Point of Care 104 mg/dL (70-110)
[2021-01-06] MEDS: venlafaxine 75 mg Tablet PO ×2 (08:29→17:16)
[2021-01-06] MEDS: aspirin 81 mg EC Tablet PO (08:29)
[2021-01-06] MEDS: fluconazole 100 mg Tablet NG-TUBE (08:29)
[2021-01-06] MEDS: nystatin powder 15 gm Btl 1 APPLIC TOPICAL ×2 (08:29→17:16)
[2021-01-06] MEDS: methadone 10 mg Tablet 20 MG PO (08:30)
[2021-01-06] MEDS: tizanidine 4 mg Tablet 2 MG PO ×2 (08:30→19:59)
[2021-01-06] MEDS: amlodipine 10 mg Tablet PO (08:30)
[2021-01-06] MEDS: budesonide 0.5 mg/2 mL Neb INHALATION ×2 (09:10→20:24)
--- NOTE | 2021-01-06 09:40 | P.PN_ITS ---
Subjective Subjective: Interval history: Patient seen bedside she is awake and alert, eating breakfast. Wearing her offloading heel pads. Denies any acute events overnight. Has difficulty straightening her legs, flexure contracture of bilateral knee. Vitals/I&O/Wt Last Vital Signs Temp 98.8 F 01/06/21 07:00 Pulse 80 01/06/21 09:17 Resp 16 01/06/21 09:14 BP 140/56 01/06/21 08:00 Pulse Ox 94 01/06/21 09:14 01/05/21 01/06/21 01/06/21 22:59 06:59 14:59 Intake Total 450 / 550 350 / 900 450 / 450 Output Total 950 / 950 750 / 1700 Balance -500 / -400 -400 / -800 450 / 450 Physical Exam Narrative: EXAM NARRATIVE: Patient is alert and oriented ?3 and in no acute distress. The following is a focused bilateral lower extremity exam. VASCULAR: Dorsalis pedis and posterior tibial arteries faintly palpable, palpable popliteal artery bilaterally. Capillary refill time less than 5 seconds to the distal hallux bilaterally. Calf is supple and nontender proximally and distally. Diminished growth pitting edema to the bilateral lower extremities, right greater than left. NEUROLOGICAL: Not tested. DERMATOLOGICAL: Wound to the right medial midfoot corresponding to the talar head, does not probe to bone, no tunneling or undermining. There is no purulence from the wound. Granular base with epithelialized margin, wound measures 2.0 cm x 2.2 cm x 0.2 cm. Arriaza grade 1 wounds to bilateral heels, no fluctuance, no erythema or drainage, mild ecchymosis. Limited to breakdown of skin. MUSCULOSKELETAL: Nonreducible Charcot deformity of the right foot with prominent talar head medially. Spastic contracture with flexion at bilateral knee. Reducible hammertoe contracture 2 through 5 bilaterally. Urinary Catheter Management^: Garber: Cath Placed During This Visit: yes Reason for Continuing Indwelling Catheter: Accurate Measurement of Urinary Output in Critically Ill Patients Urinary Catheter Date of Insertion: 12/27/20 Urinary Catheter Time of Insertion: 00:51 Data : 01/06/21 06:35 01/06/21 04:46 Micro: Microbiology 12/31/20 18:46 Blood Culture - Final Blood NO GROWTH AFTER 5 DAYS 12/31/20 18:46 Blood Culture - Final Blood NO GROWTH AFTER 5 DAYS A&P Assessment and plan (1) Cellulitis: Status: Acute Qualifiers: Site of cellulitis: extremity Site of cellulitis of extremity: lower extremity Laterality: right Qualified Code(s): L03.115 - Cellulitis of right lower limb (2) Methamphetamine use: Status: Chronic (3) Diabetes mellitus, type II: Status: Chronic Qualifiers: Diabetes mellitus [facility] insulin use: without terminal block assembler use Diabetes mellitus complication status: with diabetic arthropathy Diabetes mellitus complication detail: with other arthropathy Qualified Code(s): E11.618 - Type 2 diabetes mellitus with other diabetic arthropathy (4) [id number] disease-like deformity of foot: Status: Chronic (5) Uses wheelchair: Status: Chronic 60-year-old diabetic female currently intubated, cellulitis to right lower extremity with diabetic foot ulcerations at Charcot deformity. Right midfoot wound appears stable, has chronic appearance. Right foot wound appears stable. CT scan negative for osteomyelitis, x-ray also negative for osteomyelitis. Charcot arthropathy most involved at the talonavicular joint, appears to have stable appearance with remodeling. Does not have acute Charcot characteristics with imaging or clinically. Right foot is in stage III/chronic Charcot foot. Improved granulation tissue at the right foot wound, remains clinically stable, skin lines at the lower extremities indicative of improved edema. No plans for surgical intervention at this time from a podiatry standpoint. Wound culture negative growth at day 3, Gram stain negative for organisms. Wound biopsy resulted actinic keratosis. Right foot wound remains stable, will continue with local wound care. She has developed pressure necrosis at the bilateral heel, no fluctuance, limited breakdown of skin this is a Arriaza grade 1. Ordered PODUS heel offloading boot from [employer], I applied these to the left and right lower extremity for offloading of the heels. Will continue to monitor. Please have patient wear PODUS boot at all times. Attestations Medical Necessity Statement*: Charcot right, cellulitis lower extremities, diabetic ulceration right foot Coding Level of Care Code Acute [place] [facility] Diagnoses Cellulitis L03.115 Site of cellulitis: extremity Site of cellulitis of extremity: lower extremity Laterality: right Methamphetamine use F15.10 Diabetes mellitus, type II E11.618 Diabetes mellitus terminal block assembler insulin use: without terminal block assembler use Diabetes mellitus complication status: with diabetic arthropathy Diabetes mellitus complication detail: with other arthropathy Oyuigro-Xwenb-Xcyoa disease-like deformity of foot G60.0 Uses wheelchair Z99.3
[2021-01-06] MEDS: enoxaparin 40 mg/0.4 mL Syringe SUBCUT (10:10)
[2021-01-06 11:08] LABS: Glucose Point of Care 134 mg/dL (70-110)
--- NOTE | 2021-01-06 14:52 | PM.PN ---
Subjective Subjective: Interval history: Patient seen bedside she is awake and alert, eating breakfast. Wearing her offloading heel pads. Denies any acute events overnight. Has difficulty straightening her legs, flexure contracture of bilateral knee. Medications: Reviewed: Yes Medication Review Details: Generic Name Dose Route Start Last Admin Trade Name Freq PRN Reason Stop Dose Admin Albuterol/Ipratrop ium 3 ml 12/27/20 06:43 12/27/20 09:29 Ipratropium-Albu terol 3 Ml Neb INHALATION 3 ml Q6H.RESPIRATORY P RN Administration SHORTNESS OF IRA TH Albuterol/Ipratrop ium 3 ml 12/27/20 15:00 01/05/21 08:22 Ipratropium-Albu terol 3 Ml Neb INHALATION 3 ml Q6H.RESPIRATORY S CH Administration Amlodipine Besylat e 10 mg 01/02/21 17:00 01/05/21 08:29 Amlodipine 10 Mg Tablet PO 10 mg DAILY RANJIT Administration Aspirin 81 mg 12/30/20 09:00 01/05/21 08:27 Aspirin 81 Mg Ec Tablet PO 81 mg DAILY RANJIT Administration Budesonide 0.5 mg 12/27/20 20:00 01/05/21 08:22 Budesonide 0.5 M g/2 Ml Neb INHALATION 0.5 mg BID.RESPIRATORY S CH Administration Enoxaparin Sodium 40 mg 01/02/21 11:00 01/05/21 10:38 Enoxaparin 40 Mg /0.4 Ml Syringe SUBCUT 40 mg Q24H RANJIT Administration Famotidine 20 mg 12/27/20 07:00 01/05/21 07:36 Famotidine 20 Mg /2 Ml Inj IVP 20 mg Q12H RANJIT Administration Fluconazole 100 mg 01/01/21 09:00 01/04/21 11:23 Fluconazole 100 Mg Tablet NG-TUBE 01/11/21 08:59 100 mg DAILY RANJIT Administration Dexmedetomidine HC l 400 mcg/ 104 mls @ 0 mls/h r 12/27/20 10:00 01/04/21 09:15 Sodium Chloride IV 0 mcg/kg/hr .Q0M RANJIT 0 mls/hr Titration Protocol Per Protocol Acetaminophen 1,000 mg in 100 m ls @ 400 mls/hr 12/31/20 16:18 01/03/21 09:43 Ofirmev IV Infused Q8H PRN Infusion FEVER Levofloxacin/Dextr ose 750 mg in 150 mls @ 100 mls/hr 12/31/20 16:15 01/04/21 19:53 Levaquin-D5w IV 01/05/21 16:14 Infused Q24H RANJIT Infusion Protocol Vancomycin HCl 1,0 00 mg/ 250 mls @ 250 mls /hr 01/04/21 06:00 01/05/21 06:06 Sodium Chloride IV 0 mls/hr Q8H RANJIT Infusion Insulin Aspart 0 unit 12/27/20 21:00 01/04/21 21:06 Insulin Aspart 1 00 Unit/1 Ml SUBCUT Not Given BEDTIME RANJIT Protocol Insulin Aspart 0 unit 12/28/20 00:00 01/05/21 05:13 Insulin Aspart 1 00 Unit/1 Ml SUBCUT Not Given Q6H [facility] Protocol Insulin Human NPH 5 unit 01/04/21 08:00 01/05/21 07:37 Insulin Nph Genoveva n 100 Units/1 Ml SUBCUT 5 unit Q12H RANJIT Administration Magnesium Oxide 400 mg 01/05/21 09:00 01/05/21 10:39 Magnesium Oxide 400 Mg Tablet PO 01/05/21 18:01 400 mg BID RANJIT Administration Methadone HCl 20 mg 12/31/20 16:15 01/05/21 08:29 Methadone 10 Mg Tablet PO 20 mg DAILY RANJIT Administration Nystatin 1 applic 12/27/20 09:00 01/05/21 08:26 Nystatin Powder 15 Gm Btl TOPICAL 1 applic BID RANJIT Administration Tizanidine HCl 2 mg 01/02/21 15:00 01/05/21 08:27 Tizanidine 4 Mg Tablet PO 2 mg TID RANJIT Administration Venlafaxine HCl 75 mg 01/02/21 18:00 01/05/21 08:27 Venlafaxine 75 M g Tablet PO 75 mg BID RANJIT Administration Vitals/I&O/Wt Last Vital Signs Temp 98.9 F 01/06/21 11:00 Pulse 85 01/06/21 14:15 Resp 20 H 01/06/21 14:12 BP 125/56 01/06/21 14:00 Pulse Ox 96 01/06/21 14:12 01/05/21 01/06/21 01/06/21 22:59 06:59 14:59 Intake Total 450 / 550 350 / 900 650 / 650 Output Total 950 / 950 750 / 1700 400 / 400 Balance -500 / -400 -400 / -800 250 / 250 Physical Exam Narrative: EXAM NARRATIVE: No acute distress. Mood and affect are appropriate. Pulses are adequate. Skin is warm and dry. Moist mucous membranes Eyes Ashanti, extraocular muscles are intact. Normal speech. Neck no JVD Lungs clear breath sounds bilaterally. No respiratory distress Heart S1, S2, regular tachycardia Abdomen is soft, nontender, bowel sounds are present Bilateral severe edema and chronic venous stasis. Cellulitis in the right more than left lower extremities. Hyperemia and warmth have improved, no cyanosis. No calf tenderness. Urinary Catheter Management^: Garber: Cath Placed During This Visit: yes Reason for Continuing Indwelling Catheter: Accurate Measurement of Urinary Output in Critically Ill Patients Urinary Catheter Date of Insertion: 12/27/20 Urinary Catheter Time of Insertion: 00:51 Data : 01/06/21 06:35 01/06/21 04:46 Micro: Microbiology 12/31/20 18:46 Blood Culture - Final Blood NO GROWTH AFTER 5 DAYS 12/31/20 18:46 Blood Culture - Final Blood NO GROWTH AFTER 5 DAYS A&P Assessment and plan (1) Sepsis: Status: Acute Qualifiers: Sepsis type: Streptococcus, other Sepsis acute organ dysfunction status: with acute organ dysfunction Severe sepsis acute organ dysfunction type: encephalopathy Severe sepsis shock status: without septic shock Qualified Code(s): A40.8 - Other streptococcal sepsis; R65.20 - Severe sepsis without septic shock; G93.41 - Metabolic encephalopathy (2) Streptococcal bacteremia: Status: Acute (3) Thrush: Status: Acute (4) Hypoxemia: Not chronically on oxygen, history of prior tobacco use, CTA with some emphysematous changes but otherwise unremarkable. Status: Acute (5) Cellulitis: Bilateral lower extremities, left more significant than right. Status: Acute Qualifiers: Site of cellulitis: extremity Site of cellulitis of extremity: lower extremity Laterality: right Qualified Code(s): L03.115 - Cellulitis of right lower limb (6) Acute encephalopathy: Status: Acute (7) Diabetes mellitus, type II: Looks to chronically only be on Metformin, currently with hyperglycemia Status: Chronic Qualifiers: Diabetes mellitus correction insulin use: without buttermaker helper use Diabetes mellitus complication status: with diabetic arthropathy Diabetes mellitus complication detail: with other arthropathy Qualified Code(s): E11.618 - Type 2 diabetes mellitus with other diabetic arthropathy Additional A&P Information Ms. Snyder is a 60-year-old female with complicated past medical history, currently admitted since December 27, 2020 after presenting with altered mental status of unclear etiology. Thus far work-up has been significant for presence of streptococcal bacteremia, unclear source, however could be skin source from lower extremity cellulitis versus respiratory source from developing pneumonia. Hospital course has also been complicated by acute hypoxic respiratory failure resulting in emergent intubation, currently on mechanical ventilation. #Streptococcal septicemia #MRSA pneumonia #Encephalopathy, can be metabolic encephalopathy from sepsis -Blood culture noted to be positive for group G streptococcus from day of admission, subsequent blood cultures have not revealed any growth. Unclear source of septicemia at this present time, potential sources could be lower extremity cellulitis. Patient is noted to have chronic lymphedema with changes of stasis dermatitis affecting both lower extremities. Right leg does have more prominent changes on the left side. There was noted to be cellulitis on the right lower extremity, which appears to be improving per review of chart notes. No gross edema, warmth or tenderness noted at the right knee joint which is status post replacement. No other gross joint swelling noted. There is small ulceration over the right heel, pictures of which have been reviewed from the podiatry note, appears to be chronic in appearance. No underlying osteomyelitis noted on CT. Even if present, chronic osteomyelitis is highly unlikely to be the source of current sepsis. Patient is noted to be edentulous, very poor oral hygiene, thrush noted in the mouth. Group C streptococcus could be of oropharyngeal origin as well. CT of lumbosacral spine negative fo osteomyelitis/discitis/epidural abscess Also has been on vancomycin since admission which covers for Streptococcus. Recommend discontinuing imipenem as vancomycin will appropriately cover for streptococcus and MRSA at this time. Interim admission events have included intubation for acute hypoxic respiratory failure with development of bilateral infiltrates in both chest. This could represent worsening pneumonia, especially MRSA pneumonia given that sputum culture is positive for this agent. Other possible differentials include COVID-19 pneumonia, though PCR and antigen were negative upon admission. Possibility of septic embolization from bacteremia remains a possibility, TTE negative for vegetations. Viral pneumonitis could present similarly, respiratory viral panel taken and remains pending. Patient has been started on steroids upon admission due to concern for poor respiratory status and noted wheezing on exam. Though I do not see any chronic steroids listed on her home medications, possibility of disseminated strongyloidosis needs to be considered, check strongyloidiasis antibody for the same. Unlikely to be pneumocystis pneumonitis as there were no infiltrates on day of admission, unlikely for the latter condition to develop within 3 days in a patient who has not otherwise been on long-term steroids and is HIV negative. Acute encephalopathy, present since admission, likely related to metabolic encephalopathy from sepsis. Cannot exclude possibility of bacterial meningitis. LP was unable to be performed in spite of attempts by guest advisor and radiology, likely contributed by body habitus. CT head negative. No gross improvement with trial of acyclovir over 48 hours. Given otherwise evidence of ongoing bacterial infection, less likely that herpes encephalitis as a result of mental status changes. Agree with discontinuing acyclovir. Non infectious differentials include status epilepticus versus opioid withdrawal. serum cryptococcal antigen pending check serum RPR HIV status negative Oral thrush: Continue Fluconazole 100mg po daily x 10 days [place] Fever. Possible explanations could be lower extremities severe cellulitis, possible bilateral pneumonia, drug withdrawals. 3 attempts for LP were unsuccessful. Covid testing was negative. Improved significantly. Remains afebrile for last 48 hours. Procalcitonin level is normalized. Leukocytosis is improving. Discussed with Dr. Winters. She will adjust the antibiotics and we will prepared the patient for possible discharge soon. Acute metabolic encephalopathy secondary to infection and drugs. Withdrawal from drugs was suspected. Resolved. Currently stable. Appreciate Dr. Delgado's input. Acute respiratory failure. Resolved. Extubated. Appreciate Dr. Rosario's input. Thrush. Fluconazole. Anemia. Stable. Monitor. Hypertension. Well-controlled. Continue current management. Diabetes. Insulin sliding scale. DVT prophylaxis. Lovenox. The plan of care was discussed with the patient. She verbalized understanding and agreement. Attestations Medical Necessity Statement*: Preparing the patient for discharge. We will discharge her after finalization of her antibiotics and understanding her discharge needs Coding Level of Care Code Acute Architectural Manager for [facility] Diagnoses Sepsis A40.8; R65.20; G93.41 Sepsis type: Streptococcus, other Sepsis acute organ dysfunction status: with acute organ dysfunction Severe sepsis acute organ dysfunction type: encephalopathy Severe sepsis shock status: without septic shock Streptococcal bacteremia R78.81; B95.5 Thrush B37.0 Hypoxemia R09.02 Cellulitis L03.115 Site of cellulitis: extremity Site of cellulitis of extremity: lower extremity Laterality: right Acute encephalopathy G93.40 Diabetes mellitus, type II E11.618 Diabetes mellitus buttermaker helper insulin use: without correction use Diabetes mellitus complication status: with diabetic arthropathy Diabetes mellitus complication detail: with other arthropathy
--- NOTE | 2021-01-06 16:26 | PC.OT ---
OT TREATMENT ATTEMPTED; PATIENT IS SLEEPING SOUNDLY-SNORING. WILL ATTEMPT AGAIN LATER TOMORROW
[2021-01-06 16:49] LABS: Glucose Point of Care 109 mg/dL (70-110)
[2021-01-06] MEDS: famotidine 20 mg Tablet PO (17:16)
[2021-01-06] MEDS: insulin nph human 100 units/1 mL 5 UNIT SUBCUT (19:58)
[2021-01-06 21:41] LABS: Glucose Point of Care 129 mg/dL (70-110)
[2021-01-07] VITALS (25 sets, daily range): BP systolic 119–160; BP diastolic 51–80; PULSE 86–105; RESP 14–28; TEMP 37–37.7; O2SAT 90–100
[2021-01-07 03:39] LABS: Glucose Point of Care 126 mg/dL (70-110)
[2021-01-07] MEDS: ipratropium-albuterol 3 mL Neb INHALATION ×4 (03:43→20:18)
[2021-01-07 05:18] LABS: Glucose Point of Care 123 mg/dL (70-110)
[2021-01-07] MEDS: vancomycin 1,000 MG in sodium chloride 0.9% 250 ML 250 MG IV ×3 (05:23→22:43)
[2021-01-07] MEDS: famotidine 20 mg Tablet PO ×2 (05:24→18:24)
[2021-01-07 05:39] LABS: Basophils % 0.1 %; Eosinophils # 0.1 10^3/uL (0.0-0.8); Eosinophils % 0.6 %; Hematocrit 26.4 % (37.0-47.0); Lymphocytes # 0.8 10^3/uL (0.8-4.8); Lymphocytes % 7.8 %; Mean Corpuscular HGB Conc 30.3 g/dL (30.0-36.0); Mean Corpuscular Hemoglobin 31.1 pg (28.0-34.0); Mean Corpuscular Volume 102.7 fL (81-99); Mean Platelet Volume 10.4 fL (7.4-10.4); Monocytes # 0.9 10^3/uL (0.2-0.9); Monocytes % 8.8 %; Neutrophils # 8.64 10^3/uL (1.8-7.7); Neutrophils % 81.6 %; Nucleated Red Blood Cells % 0.2 %; Platelet Count 322 10^3/cmm (130-400); Red Blood Count 2.57 10^6/uL (4.1-5.3); Red Cell Distribution Width 18.2 % (12.1-15.1); White Blood Count 10.6 10^3/uL (4.0-10.0)
--- NOTE | 2021-01-07 06:01 | PC.NURSE ---
uneventful night, one episode of bladder incontinence, no s/s or complaint of distress through out shift, AO x3, answers questions and follows commands
[2021-01-07 06:23] LABS: Procalcitonin 0.08 ng/mL (0-0.5)
[2021-01-07 06:35] LABS: Albumin Level 2.7 g/dL (3.5-5.2); Anion Gap 13.2 (5-19); Blood Urea Nitrogen 6 mg/dL (8-23); C Reactive Protein 160.2 mg/L (0.0-4.9); Carbon Dioxide 30 mmol/L (22-29); Chloride 99 mmol/L (98-107); Glomerular Filtration Rate 362.3 mL/min (90-130); Glucose 106 mg/dL (65-115); Magnesium 1.8 mg/dL (1.7-2.3); Phosphorus 2.3 mg/dL (2.5-4.5); Potassium 3.2 mmol/L (3.5-5.1); Sodium 139 mmol/L (136-145)
[2021-01-07] MEDS: potassium chloride ER 20 mEq Tablet PO (08:39)
[2021-01-07] MEDS: amlodipine 10 mg Tablet PO (08:39)
[2021-01-07] MEDS: aspirin 81 mg EC Tablet PO (08:39)
[2021-01-07] MEDS: magnesium oxide 400 mg tablet PO ×2 (08:39→18:23)
[2021-01-07] MEDS: tizanidine 4 mg Tablet 2 MG PO ×3 (08:40→21:39)
[2021-01-07] MEDS: nystatin 100,000 unit/mL UDC 5 mL 500000 UNIT PO ×4 (08:40→21:39)
[2021-01-07] MEDS: phosphorus 250 mg Tablet PO ×2 (08:40→18:23)
[2021-01-07] MEDS: nystatin powder 15 gm Btl 1 APPLIC TOPICAL ×2 (08:40→18:24)
[2021-01-07] MEDS: venlafaxine 75 mg Tablet PO ×2 (08:40→18:24)
[2021-01-07] MEDS: budesonide 0.5 mg/2 mL Neb INHALATION ×2 (08:48→20:18)
[2021-01-07] MEDS: iron sucrose 200 MG in sodium chloride 0.9% (100 ml) 100 ML 220 MG IV (09:25)
[2021-01-07] MEDS: enoxaparin 40 mg/0.4 mL Syringe SUBCUT (11:18)
[2021-01-07 11:21] LABS: Vitamin B12 1456 pg/mL (232-1245)
[2021-01-07 11:25] LABS: Glucose Point of Care 119 mg/dL (70-110)
--- NOTE | 2021-01-07 14:08 | PM.PN ---
Subjective Subjective: Interval history: The patient reports feeling better today. Denies any fever or chills, nausea or vomiting, diarrhea. No chest pain or shortness of breath. No pain in the extremities. Medications: Medication Review Details: Vitals/I&O/Wt Last Vital Signs Temp 99.1 F 01/07/21 11:00 Pulse 97 01/07/21 14:00 Resp 22 H 01/07/21 14:00 BP 135/69 01/07/21 14:00 Pulse Ox 100 01/07/21 14:00 01/06/21 01/07/21 01/07/21 22:59 06:59 14:59 Intake Total 550 / 1200 500 / 1700 410 / 410 Output Total 400 / 800 Balance 150 / 400 500 / 900 410 / 410 Physical Exam Narrative: EXAM NARRATIVE: No acute distress. Mood and affect are appropriate. Pulses are adequate. Skin is warm and dry. Moist mucous membranes Eyes Ashanti, extraocular muscles are intact. Normal speech. Neck no JVD Lungs clear breath sounds bilaterally. No respiratory distress Heart S1, S2, regular tachycardia Abdomen is soft, nontender, bowel sounds are present Bilateral severe edema and chronic venous stasis. Cellulitis in the right more than left lower extremities. Hyperemia and warmth have improved, no cyanosis. No calf tenderness. Urinary Catheter Management^: Garber: Cath Placed During This Visit: yes Reason for Continuing Indwelling Catheter: Accurate Measurement of Urinary Output in Critically Ill Patients Urinary Catheter Date of Insertion: 12/27/20 Urinary Catheter Time of Insertion: 00:51 Data : 01/07/21 04:47 01/07/21 04:47 A&P Assessment and plan (1) Sepsis: Status: Acute Qualifiers: Sepsis type: Streptococcus, other Sepsis acute organ dysfunction status: with acute organ dysfunction Severe sepsis acute organ dysfunction type: encephalopathy Severe sepsis shock status: without septic shock Qualified Code(s): A40.8 - Other streptococcal sepsis; R65.20 - Severe sepsis without septic shock; G93.41 - Metabolic encephalopathy (2) Streptococcal bacteremia: Status: Acute (3) Thrush: Status: Acute (4) Hypoxemia: Not chronically on oxygen, history of prior tobacco use, CTA with some emphysematous changes but otherwise unremarkable. Status: Acute (5) Cellulitis: Bilateral lower extremities, left more significant than right. Status: Acute Qualifiers: Site of cellulitis: extremity Site of cellulitis of extremity: lower extremity Laterality: right Qualified Code(s): L03.115 - Cellulitis of right lower limb (6) Acute encephalopathy: Status: Acute (7) Diabetes mellitus, type II: Looks to chronically only be on Metformin, currently with hyperglycemia Status: Chronic Qualifiers: Diabetes mellitus ferry terminal agent insulin use: without ferry terminal agent use Diabetes mellitus complication status: with diabetic arthropathy Diabetes mellitus complication detail: with other arthropathy Qualified Code(s): E11.618 - Type 2 diabetes mellitus with other diabetic arthropathy Additional A&P Information Ms. Snyder is a 60-year-old female with complicated past medical history, currently admitted since December 27, 2020 after presenting with altered mental status of unclear etiology. Thus far work-up has been significant for presence of streptococcal bacteremia, unclear source, however could be skin source from lower extremity cellulitis versus respiratory source from developing pneumonia. Hospital course has also been complicated by acute hypoxic respiratory failure resulting in emergent intubation, currently on mechanical ventilation. #Streptococcal septicemia #MRSA pneumonia #Encephalopathy, can be metabolic encephalopathy from sepsis -Blood culture noted to be positive for group G streptococcus from day of admission, subsequent blood cultures have not revealed any growth. Unclear source of septicemia at this present time, potential sources could be lower extremity cellulitis. Patient is noted to have chronic lymphedema with changes of stasis dermatitis affecting both lower extremities. Right leg does have more prominent changes on the left side. There was noted to be cellulitis on the right lower extremity, which appears to be improving per review of chart notes. No gross edema, warmth or tenderness noted at the right knee joint which is status post replacement. No other gross joint swelling noted. There is small ulceration over the right heel, pictures of which have been reviewed from the podiatry note, appears to be chronic in appearance. No underlying osteomyelitis noted on CT. Even if present, chronic osteomyelitis is highly unlikely to be the source of current sepsis. Patient is noted to be edentulous, very poor oral hygiene, thrush noted in the mouth. Group C streptococcus could be of oropharyngeal origin as well. CT of lumbosacral spine negative fo osteomyelitis/discitis/epidural abscess Also has been on vancomycin since admission which covers for Streptococcus. Recommend discontinuing imipenem as vancomycin will appropriately cover for streptococcus and MRSA at this time. Interim admission events have included intubation for acute hypoxic respiratory failure with development of bilateral infiltrates in both chest. This could represent worsening pneumonia, especially MRSA pneumonia given that sputum culture is positive for this agent. Other possible differentials include COVID-19 pneumonia, though PCR and antigen were negative upon admission. Possibility of septic embolization from bacteremia remains a possibility, TTE negative for vegetations. Viral pneumonitis could present similarly, respiratory viral panel taken and remains pending. Patient has been started on steroids upon admission due to concern for poor respiratory status and noted wheezing on exam. Though I do not see any chronic steroids listed on her home medications, possibility of disseminated strongyloidosis needs to be considered, check strongyloidiasis antibody for the same. Unlikely to be pneumocystis pneumonitis as there were no infiltrates on day of admission, unlikely for the latter condition to develop within 3 days in a patient who has not otherwise been on long-term steroids and is HIV negative. Acute encephalopathy, present since admission, likely related to metabolic encephalopathy from sepsis. Cannot exclude possibility of bacterial meningitis. LP was unable to be performed in spite of attempts by outreach associate and radiology, likely contributed by body habitus. CT head negative. No gross improvement with trial of acyclovir over 48 hours. Given otherwise evidence of ongoing bacterial infection, less likely that herpes encephalitis as a result of mental status changes. Agree with discontinuing acyclovir. Non infectious differentials include status epilepticus versus opioid withdrawal. serum cryptococcal antigen pending check serum RPR HIV status negative Oral thrush: Continue Fluconazole 100mg po daily x 10 days [place] Fever. Possible explanations could be lower extremities severe cellulitis, possible bilateral pneumonia, drug withdrawals. 3 attempts for LP were unsuccessful. Covid testing was negative. Improved significantly. Remains afebrile. Procalcitonin level is normalized. Leukocytosis is improving. Discussed with Dr. Winters. She is recommending vancomycin for total of 14 days after last negative blood culture result which was on . Case management is arranging her outpatient IV antibiotics. Will discharge when it is done. Acute metabolic encephalopathy secondary to infection and drugs. Withdrawal from drugs was suspected. Resolved. Currently stable. Appreciate Dr. Delgado's input. Acute respiratory failure. Resolved. Extubated. Appreciate Dr. Rosario's input. Thrush. Nystatin swish and swallow for additional 5 days. Anemia. Stable. Monitor. Hypertension. Well-controlled. Continue current management. Diabetes. Insulin sliding scale. DVT prophylaxis. Lovenox. The plan of care was discussed with the patient. She verbalized understanding and agreement. Attestations Medical Necessity Statement*: Waiting for outpatient IV antibiotic arrangements Coding Level of Care Code Acute Regional Education Manager for [facility] Fw Diagnoses Sepsis A40.8; R65.20; G93.41 Sepsis type: Streptococcus, other Sepsis acute organ dysfunction status: with acute organ dysfunction Severe sepsis acute organ dysfunction type: encephalopathy Severe sepsis shock status: without septic shock Streptococcal bacteremia R78.81; B95.5 Thrush B37.0 Hypoxemia R09.02 Cellulitis L03.115 Site of cellulitis: extremity Site of cellulitis of extremity: lower extremity Laterality: right Acute encephalopathy G93.40 Diabetes mellitus, type II E11.618 Diabetes mellitus ferry terminal agent insulin use: without senior care use Diabetes mellitus complication status: with diabetic arthropathy Diabetes mellitus complication detail: with other arthropathy
--- NOTE | 2021-01-07 14:35 | PC.SOCIAL ---
IMM Updated Updated pt on Pg 2 IMM. No questions voiced. Provided pt a copy. Signed, dated, & timed copy in chart.
--- NOTE | 2021-01-07 15:16 | PC.NURSE ---
1430 Reported post void residual bladder scan of [address] Perez. Orders for straight cath. 1515 Straight cath patient, emptied 700 ml of urine.
[2021-01-07] MEDS: insulin nph human 100 units/1 mL 5 UNIT SUBCUT (22:42)
[2021-01-08] VITALS (19 sets, daily range): BP systolic 113–143; BP diastolic 65–79; PULSE 86–110; RESP 16–22; TEMP 36.8–37.1; O2SAT 91–96
[2021-01-08] MEDS: ipratropium-albuterol 3 mL Neb INHALATION ×4 (03:14→20:53)
[2021-01-08 05:38] LABS: Basophils % 0.1 %; Eosinophils # 0.1 10^3/uL (0.0-0.8); Eosinophils % 0.6 %; Hematocrit 24.2 % (37.0-47.0); Hemoglobin 7.3 g/dL (11.5-15.3); Lymphocytes # 0.8 10^3/uL (0.8-4.8); Lymphocytes % 9.3 %; Mean Corpuscular HGB Conc 30.2 g/dL (30.0-36.0); Mean Corpuscular Hemoglobin 30.5 pg (28.0-34.0); Mean Corpuscular Volume 101.3 fL (81-99); Mean Platelet Volume 10.4 fL (7.4-10.4); Monocytes % 10.9 %; Neutrophils # 6.96 10^3/uL (1.8-7.7); Neutrophils % 78.4 %; Nucleated Red Blood Cells % 0 %; Platelet Count 356 10^3/cmm (130-400); Red Blood Count 2.39 10^6/uL (4.1-5.3); Red Cell Distribution Width 18.6 % (12.1-15.1); White Blood Count 8.9 10^3/uL (4.0-10.0)
[2021-01-08 06:04] LABS: Albumin Level 2.7 g/dL (3.5-5.2); Anion Gap 11.4 (5-19); Blood Urea Nitrogen 5 mg/dL (8-23); Calcium 8.1 mg/dL (8.5-10.5); Carbon Dioxide 30 mmol/L (22-29); Chloride 100 mmol/L (98-107); Glomerular Filtration Rate 362.3 mL/min (90-130); Glucose 93 mg/dL (65-115); Magnesium 1.8 mg/dL (1.7-2.3); Potassium 3.4 mmol/L (3.5-5.1); Sodium 138 mmol/L (136-145)
[2021-01-08] MEDS: famotidine 20 mg Tablet PO ×2 (06:37→18:19)
[2021-01-08 06:43] LABS: Glucose Point of Care 104 mg/dL (70-110)
[2021-01-08] MEDS: vancomycin 1,000 MG in sodium chloride 0.9% 250 ML 250 MG IV ×3 (06:49→23:13)
[2021-01-08] MEDS: budesonide 0.5 mg/2 mL Neb INHALATION ×2 (09:17→20:53)
[2021-01-08] MEDS: iron sucrose 200 MG in sodium chloride 0.9% (100 ml) 100 ML 220 MG IV (09:55)
[2021-01-08] MEDS: insulin nph human 100 units/1 mL 5 UNIT SUBCUT ×2 (09:55→21:15)
[2021-01-08] MEDS: aspirin 81 mg EC Tablet PO (09:56)
[2021-01-08] MEDS: tizanidine 4 mg Tablet 2 MG PO ×3 (09:56→21:15)
[2021-01-08] MEDS: amlodipine 10 mg Tablet PO (09:56)
[2021-01-08] MEDS: venlafaxine 75 mg Tablet PO ×2 (09:56→18:19)
[2021-01-08] MEDS: nystatin 100,000 unit/mL UDC 5 mL 500000 UNIT PO ×4 (09:56→21:15)
[2021-01-08] MEDS: nystatin powder 15 gm Btl 1 APPLIC TOPICAL (10:00)
[2021-01-08 11:23] LABS: Glucose Point of Care 152 mg/dL (70-110)
--- NOTE | 2021-01-08 12:20 | PM.PN ---
Subjective Subjective: Interval history: The patient reports feeling better today. Denies any fever or chills, nausea or vomiting, diarrhea. No chest pain or shortness of breath. No pain in the extremities. Medications: Reviewed: Yes Medication Review Details: Generic Name Dose Route Start Last Admin Trade Name Freq PRN Reason Stop Dose Admin Albuterol/Ipratrop ium 3 ml 12/27/20 06:43 12/27/20 09:29 Ipratropium-Albu terol 3 Ml Neb INHALATION 3 ml Q6H.RESPIRATORY P RN Administration SHORTNESS OF IRA TH Albuterol/Ipratrop ium 3 ml 12/27/20 15:00 01/08/21 09:17 Ipratropium-Albu terol 3 Ml Neb INHALATION 3 ml Q6H.RESPIRATORY S CH Administration Amlodipine Besylat e 10 mg 01/02/21 17:00 01/08/21 09:56 Amlodipine 10 Mg Tablet PO 10 mg DAILY RANJIT Administration Aspirin 81 mg 12/30/20 09:00 01/08/21 09:56 Aspirin 81 Mg Ec Tablet PO 81 mg DAILY RANJIT Administration Budesonide 0.5 mg 12/27/20 20:00 01/08/21 09:17 Budesonide 0.5 M g/2 Ml Neb INHALATION 0.5 mg BID.RESPIRATORY S CH Administration Enoxaparin Sodium 40 mg 01/02/21 11:00 01/07/21 11:18 Enoxaparin 40 Mg /0.4 Ml Syringe SUBCUT 40 mg Q24H RANJIT Administration Famotidine 20 mg 01/06/21 18:00 01/08/21 06:37 Famotidine 20 Mg Tablet PO 20 mg Q12H RANJIT Administration Acetaminophen 1,000 mg in 100 m ls @ 400 mls/hr 12/31/20 16:18 01/05/21 20:52 Ofirmev IV Infused Q8H PRN Infusion FEVER Vancomycin HCl 1,0 00 mg/ 250 mls @ 250 mls /hr 01/04/21 06:00 01/08/21 10:52 Sodium Chloride IV Infused Q8H RANJIT Infusion Iron Sucrose 200 m g/ Sodium 110 mls @ 220 mls /hr 01/07/21 09:00 01/08/21 10:53 Chloride IV 01/11/21 09:29 Infused DAILY RANJIT Infusion Insulin Aspart 0 unit 12/27/20 21:00 01/07/21 21:38 Insulin Aspart 1 00 Unit/1 Ml SUBCUT 3 unit BEDTIME RANJIT Administration Protocol Insulin Aspart 0 unit 12/28/20 00:00 01/08/21 07:04 Insulin Aspart 1 00 Unit/1 Ml SUBCUT Not Given Q6H [facility] Protocol Insulin Human NPH 5 unit 01/04/21 08:00 01/08/21 09:55 Insulin Nph Genoveva n 100 Units/1 Ml SUBCUT 5 unit Q12H RANJIT Administration Nystatin 1 applic 12/27/20 09:00 01/08/21 10:00 Nystatin Powder 15 Gm Btl TOPICAL 1 applic BID RANJIT Administration Nystatin 500,000 unit 01/07/21 09:00 01/08/21 09:56 Nystatin 100,000 Unit/Ml Udc 5 Ml PO 500,000 unit QID RANJIT Administration Tizanidine HCl 2 mg 01/02/21 15:00 01/08/21 09:56 Tizanidine 4 Mg Tablet PO 2 mg TID RANJIT Administration Venlafaxine HCl 75 mg 01/02/21 18:00 01/08/21 09:56 Venlafaxine 75 M g Tablet PO 75 mg BID RANJIT Administration Vitals/I&O/Wt Last Vital Signs Temp 98.2 F 01/08/21 12:00 Pulse 94 01/08/21 12:00 Resp 18 01/08/21 12:00 BP 131/79 01/08/21 12:00 Pulse Ox 91 01/08/21 12:00 01/07/21 01/08/21 01/08/21 22:59 06:59 14:59 Intake Total 1286 / 1696 1300 / 2996 360 / 360 Output Total 700 / 700 Balance 586 / 996 1300 / 2296 360 / 360 Weight last 48 hrs Weight 98.339 kg Physical Exam Narrative: EXAM NARRATIVE: No acute distress. Mood and affect are appropriate. Pulses are adequate. Skin is warm and dry. Moist mucous membranes Eyes Ashanti, extraocular muscles are intact. Normal speech. Neck no JVD Lungs clear breath sounds bilaterally. No respiratory distress Heart S1, S2, regular tachycardia Abdomen is soft, nontender, bowel sounds are present Bilateral severe edema and chronic venous stasis. Cellulitis in the right more than left lower extremities. Hyperemia and warmth have improved, no cyanosis. No calf tenderness. Urinary Catheter Management^: Garber: Cath Placed During This Visit: yes Reason for Continuing Indwelling Catheter: Accurate Measurement of Urinary Output in Critically Ill Patients Urinary Catheter Date of Insertion: 12/27/20 Urinary Catheter Time of Insertion: 00:51 Data : 01/08/21 04:59 01/08/21 04:59 A&P Assessment and plan (1) Sepsis: Status: Acute Qualifiers: Sepsis type: Streptococcus, other Sepsis acute organ dysfunction status: with acute organ dysfunction Severe sepsis acute organ dysfunction type: encephalopathy Severe sepsis shock status: without septic shock Qualified Code(s): A40.8 - Other streptococcal sepsis; R65.20 - Severe sepsis without septic shock; G93.41 - Metabolic encephalopathy (2) Streptococcal bacteremia: Status: Acute (3) Thrush: Status: Acute (4) Hypoxemia: Not chronically on oxygen, history of prior tobacco use, CTA with some emphysematous changes but otherwise unremarkable. Status: Acute (5) Cellulitis: Bilateral lower extremities, left more significant than right. Status: Acute Qualifiers: Site of cellulitis: extremity Site of cellulitis of extremity: lower extremity Laterality: right Qualified Code(s): L03.115 - Cellulitis of right lower limb (6) Acute encephalopathy: Status: Acute (7) Diabetes mellitus, type II: Looks to chronically only be on Metformin, currently with hyperglycemia Status: Chronic Qualifiers: Diabetes mellitus correction insulin use: without ferry terminal agent use Diabetes mellitus complication status: with diabetic arthropathy Diabetes mellitus complication detail: with other arthropathy Qualified Code(s): E11.618 - Type 2 diabetes mellitus with other diabetic arthropathy Additional A&P Information Ms. Snyder is a 60-year-old female with complicated past medical history, currently admitted since December 27, 2020 after presenting with altered mental status of unclear etiology. Thus far work-up has been significant for presence of streptococcal bacteremia, unclear source, however could be skin source from lower extremity cellulitis versus respiratory source from developing pneumonia. Hospital course has also been complicated by acute hypoxic respiratory failure resulting in emergent intubation, currently on mechanical ventilation. #Streptococcal septicemia #MRSA pneumonia #Encephalopathy, can be metabolic encephalopathy from sepsis -Blood culture noted to be positive for group G streptococcus from day of admission, subsequent blood cultures have not revealed any growth. Unclear source of septicemia at this present time, potential sources could be lower extremity cellulitis. Patient is noted to have chronic lymphedema with changes of stasis dermatitis affecting both lower extremities. Right leg does have more prominent changes on the left side. There was noted to be cellulitis on the right lower extremity, which appears to be improving per review of chart notes. No gross edema, warmth or tenderness noted at the right knee joint which is status post replacement. No other gross joint swelling noted. There is small ulceration over the right heel, pictures of which have been reviewed from the podiatry note, appears to be chronic in appearance. No underlying osteomyelitis noted on CT. Even if present, chronic osteomyelitis is highly unlikely to be the source of current sepsis. Patient is noted to be edentulous, very poor oral hygiene, thrush noted in the mouth. Group C streptococcus could be of oropharyngeal origin as well. CT of lumbosacral spine negative fo osteomyelitis/discitis/epidural abscess Also has been on vancomycin since admission which covers for Streptococcus. Recommend discontinuing imipenem as vancomycin will appropriately cover for streptococcus and MRSA at this time. Interim admission events have included intubation for acute hypoxic respiratory failure with development of bilateral infiltrates in both chest. This could represent worsening pneumonia, especially MRSA pneumonia given that sputum culture is positive for this agent. Other possible differentials include COVID-19 pneumonia, though PCR and antigen were negative upon admission. Possibility of septic embolization from bacteremia remains a possibility, TTE negative for vegetations. Viral pneumonitis could present similarly, respiratory viral panel taken and remains pending. Patient has been started on steroids upon admission due to concern for poor respiratory status and noted wheezing on exam. Though I do not see any chronic steroids listed on her home medications, possibility of disseminated strongyloidosis needs to be considered, check strongyloidiasis antibody for the same. Unlikely to be pneumocystis pneumonitis as there were no infiltrates on day of admission, unlikely for the latter condition to develop within 3 days in a patient who has not otherwise been on long-term steroids and is HIV negative. Acute encephalopathy, present since admission, likely related to metabolic encephalopathy from sepsis. Cannot exclude possibility of bacterial meningitis. LP was unable to be performed in spite of attempts by assistant property manager and radiology, likely contributed by body habitus. CT head negative. No gross improvement with trial of acyclovir over 48 hours. Given otherwise evidence of ongoing bacterial infection, less likely that herpes encephalitis as a result of mental status changes. Agree with discontinuing acyclovir. Non infectious differentials include status epilepticus versus opioid withdrawal. serum cryptococcal antigen pending check serum RPR HIV status negative Oral thrush: Continue Fluconazole 100mg po daily x 10 days [place] Fever. Probably due to severe cellulitis in the lower extremities, possible bilateral pneumonia, drug withdrawals. 3 attempts for LP were unsuccessful. Covid testing was negative. Improved significantly. Remains afebrile. Procalcitonin level is normalized. Leukocytosis is resolved. Discussed with Dr. Winters. She is recommending vancomycin for total of 14 days after last negative blood culture result which was on . Case management is arranging her placement to long term facility and IV antibiotics. Generalized deconditioning and debilitated state, acute on chronic secondary to above. Acute metabolic encephalopathy secondary to infection and drugs. Withdrawal from drugs was suspected. Resolved. Currently stable. Appreciate Dr. Delgado's input. Acute respiratory failure. Resolved. Extubated. Appreciate Dr. Rosario's input. Thrush. Nystatin swish and swallow for additional 4 days. Anemia. Stable. Monitor. Hypertension. Well-controlled. Continue current management. Diabetes. Insulin sliding scale. DVT prophylaxis. Lovenox. The plan of care was discussed with the patient. She verbalized understanding and agreement. I also discussed with her son yesterday on the phone per her request. He verbalized understanding and satisfaction with the conversation. Attestations Medical Necessity Statement*: Pending placement Coding Level of Care Code Acute Manager Administrative Services for [facility] Fwd Diagnoses Sepsis A40.8; R65.20; G93.41 Sepsis type: Streptococcus, other Sepsis acute organ dysfunction status: with acute organ dysfunction Severe sepsis acute organ dysfunction type: encephalopathy Severe sepsis shock status: without septic shock Streptococcal bacteremia R78.81; B95.5 Thrush B37.0 Hypoxemia R09.02 Cellulitis L03.115 Site of cellulitis: extremity Site of cellulitis of extremity: lower extremity Laterality: right Acute encephalopathy G93.40 Diabetes mellitus, type II E11.618 Diabetes mellitus correction insulin use: without correction use Diabetes mellitus complication status: with diabetic arthropathy Diabetes mellitus complication detail: with other arthropathy
[2021-01-08] MEDS: enoxaparin 40 mg/0.4 mL Syringe SUBCUT (13:53)
[2021-01-08] MEDS: gabapentin 300 mg Capsule PO ×2 (13:55→21:15)
[2021-01-08 17:17] LABS: Glucose Point of Care 112 mg/dL (70-110)
[2021-01-08 20:50] LABS: Glucose Point of Care 197 mg/dL (70-110)
[2021-01-09] VITALS (15 sets, daily range): BP systolic 105–134; BP diastolic 70–82; PULSE 80–98; RESP 12–22; TEMP 36.1–37.4; O2SAT 94–100
[2021-01-09 00:02] LABS: Glucose Point of Care 113 mg/dL (70-110)
[2021-01-09] MEDS: ipratropium-albuterol 3 mL Neb INHALATION ×3 (02:46→14:33)
[2021-01-09 06:30] LABS: Glucose Point of Care 149 mg/dL (70-110)
[2021-01-09] MEDS: vancomycin 1,000 MG in sodium chloride 0.9% 250 ML 250 MG IV ×3 (06:53→22:54)
[2021-01-09] MEDS: famotidine 20 mg Tablet PO (06:54)
--- NOTE | 2021-01-09 08:01 | PM.PN ---
Subjective Subjective: Interval history: Ms. Snyder seen bedside this morning, she is wearing her PODUS boots. Denies any acute events overnight. Patient denies any subjective nausea, vomiting, fever, chills, shortness of breath or chest pain. Vitals/I&O/Wt Last Vital Signs Temp 99.1 F 01/09/21 07:04 Pulse 90 01/09/21 07:04 Resp 18 01/09/21 07:04 BP 129/75 01/09/21 07:04 Pulse Ox 97 01/09/21 07:04 01/08/21 01/09/21 01/09/21 22:59 06:59 14:59 Intake Total 880 / 1730 1930 / 3660 Balance 880 / 1730 1930 / 3660 Weight last 48 hrs Weight 211 lb 9.6 oz Weight 216 lb 12.8 oz Physical Exam Narrative: EXAM NARRATIVE: Patient is alert and oriented ?3 and in no acute distress. The following is a focused bilateral lower extremity exam. VASCULAR: Dorsalis pedis and posterior tibial arteries faintly palpable, palpable popliteal artery bilaterally. Capillary refill time less than 5 seconds to the distal hallux bilaterally. Calf is supple and nontender proximally and distally. Diminished growth pitting edema to the bilateral lower extremities, right greater than left. NEUROLOGICAL: Not tested. DERMATOLOGICAL: Wound to the right medial midfoot corresponding to the talar head, does not probe to bone, no tunneling or undermining. There is no purulence from the wound. Granular base with epithelialized margin, wound measures 2.0 cm x 2.1 cm x 0.2 cm. Arriaza grade 1 wounds to bilateral heels, no fluctuance, no erythema or drainage, mild ecchymosis. Limited to breakdown of skin. MUSCULOSKELETAL: Nonreducible Charcot deformity of the right foot with prominent talar head medially. Spastic contracture with flexion at bilateral knee. Reducible hammertoe contracture 2 through 5 bilaterally. Urinary Catheter Management^: Garber: Cath Placed During This Visit: yes Reason for Continuing Indwelling Catheter: Accurate Measurement of Urinary Output in Critically Ill Patients Urinary Catheter Date of Insertion: 12/27/20 Urinary Catheter Time of Insertion: 00:51 Data : 01/08/21 04:59 01/08/21 04:59 A&P Assessment and plan (1) Cellulitis: Status: Acute Qualifiers: Site of cellulitis: extremity Site of cellulitis of extremity: lower extremity Laterality: right Qualified Code(s): L03.115 - Cellulitis of right lower limb (2) Methamphetamine use: Status: Chronic (3) Diabetes mellitus, type II: Status: Chronic Qualifiers: Diabetes mellitus mcfp insulin use: without long filler cigar roller machine use Diabetes mellitus complication status: with diabetic arthropathy Diabetes mellitus complication detail: with other arthropathy Qualified Code(s): E11.618 - Type 2 diabetes mellitus with other diabetic arthropathy (4) Ybpgygd-Tyuli-Xxpzt disease-like deformity of foot: Status: Chronic (5) Uses wheelchair: Status: Chronic 60-year-old diabetic female currently intubated, cellulitis to right lower extremity with diabetic foot ulcerations at Charcot deformity. Right midfoot wound appears stable, has chronic appearance. Right foot wound appears stable. CT scan negative for osteomyelitis, x-ray also negative for osteomyelitis. Charcot arthropathy most involved at the talonavicular joint, appears to have stable appearance with remodeling. Does not have acute Charcot characteristics with imaging or clinically. Right foot is in stage III/chronic Charcot foot. Improved granulation tissue at the right foot wound, remains clinically stable, skin lines at the lower extremities indicative of improved edema. No plans for surgical intervention at this time from a podiatry standpoint. Wound culture negative growth at day 3, Gram stain negative for organisms. Wound biopsy resulted actinic keratosis. Right foot wound remains stable, will continue with local wound care, Hydrofera Blue daily. Bilateral heel wound limited to breakdown of skin is clinically stable, no fluctuance or drainage, no surrounding erythema or warmth. Arriaza grade 1 showing improvement utilizing PODUS boots. Recommend wound care follow-up at discharge. Attestations Medical Necessity Statement*: Charcot foot, cellulitis of lower extremities and diabetic foot ulceration. Coding Level of Care Code Acute Attorney At Law for [facility] Diagnoses Cellulitis L03.115 Site of cellulitis: extremity Site of cellulitis of extremity: lower extremity Laterality: right Methamphetamine use F15.10 Diabetes mellitus, type II E11.618 Diabetes mellitus mcfp insulin use: without long filler cigar roller machine use Diabetes mellitus complication status: with diabetic arthropathy Diabetes mellitus complication detail: with other arthropathy Ttreboz-Yxefp-Fbwar disease-like deformity of foot G60.0 Uses wheelchair Z99.3
[2021-01-09] MEDS: budesonide 0.5 mg/2 mL Neb INHALATION (08:12)
[2021-01-09] MEDS: insulin nph human 100 units/1 mL 5 UNIT SUBCUT ×2 (08:43→20:39)
[2021-01-09] MEDS: gabapentin 300 mg Capsule PO ×3 (08:44→20:40)
[2021-01-09] MEDS: nystatin 100,000 unit/mL UDC 5 mL 500000 UNIT PO ×4 (08:44→20:40)
[2021-01-09] MEDS: tizanidine 4 mg Tablet 2 MG PO ×3 (08:44→20:40)
[2021-01-09] MEDS: aspirin 81 mg EC Tablet PO (08:44)
[2021-01-09] MEDS: amlodipine 10 mg Tablet PO (10:00)
[2021-01-09] MEDS: nystatin powder 15 gm Btl 1 APPLIC TOPICAL ×2 (10:01→18:02)
[2021-01-09] MEDS: venlafaxine 75 mg Tablet PO ×2 (10:01→18:01)
[2021-01-09] MEDS: iron sucrose 200 MG in sodium chloride 0.9% (100 ml) 100 ML 220 MG IV (10:01)
[2021-01-09 11:11] LABS: Basophils % 0.3 %; Eosinophils # 0.1 10^3/uL (0.0-0.8); Eosinophils % 1.1 %; Hematocrit 22.8 % (37.0-47.0); Hemoglobin 6.8 g/dL (11.5-15.3); Lymphocytes # 0.7 10^3/uL (0.8-4.8); Mean Corpuscular HGB Conc 29.8 g/dL (30.0-36.0); Mean Corpuscular Hemoglobin 31.3 pg (28.0-34.0); Mean Corpuscular Volume 105.1 fL (81-99); Monocytes # 0.8 10^3/uL (0.2-0.9); Monocytes % 11.6 %; Neutrophils # 5.08 10^3/uL (1.8-7.7); Neutrophils % 76.5 %; Nucleated Red Blood Cells % 0 %; Platelet Count 320 10^3/cmm (130-400); Red Blood Count 2.17 10^6/uL (4.1-5.3); Red Cell Distribution Width 18.9 % (12.1-15.1); White Blood Count 6.6 10^3/uL (4.0-10.0)
[2021-01-09 11:19] LABS: Alanine Aminotransferase 9 U/L (0-33); Albumin Level 2.5 g/dL (3.5-5.2); Alkaline Phosphatase 84 IU/L (35-105); Aspartate Amino Transferase 11 U/L (0-32); Blood Urea Nitrogen 4 mg/dL (8-23); Calcium 8.4 mg/dL (8.5-10.5); Carbon Dioxide 28 mmol/L (22-29); Chloride 103 mmol/L (98-107); Globulin 3.2 g/dL (1.3-4.6); Glomerular Filtration Rate 362.3 mL/min (90-130); Glucose 116 mg/dL (65-115); Magnesium 1.7 mg/dL (1.7-2.3); Osmolality Calculated 286 mOsm/kg (285-295); Sodium 139 mmol/L (136-145); Total Bilirubin 0.6 mg/dL (0.15-1.2); Total Protein 5.7 g/dL (6.6-8.7)
[2021-01-09 11:22] LABS: Anion Gap 11.4 (5-19); Potassium 3.4 mmol/L (3.5-5.1)
[2021-01-09 11:36] LABS: Glucose Point of Care 143 mg/dL (70-110)
--- NOTE | 2021-01-09 12:28 | PC.SOCIAL ---
*IMM* Updated and initialled in the chart.
[2021-01-09] MEDS: acetaminophen 325 mg Tablet 650 MG PO (16:18)
[2021-01-09 16:50] LABS: Glucose Point of Care 130 mg/dL (70-110)
--- NOTE | 2021-01-09 17:40 | P.PN_ITS ---
Subjective Subjective: Interval history: Patient was examined multiple times this morning, she complains of severe back pain, especially when turning in bed, she wanted to leave AGAINST MEDICAL ADVICE this afternoon, however have compromised with patient and started her on Ultram for pain, her hemoglobin is down to 6.8, denies any bloody or black stools, no lightheadedness, no dizziness, no fevers, chills, no cough Medications: Reviewed: Yes Medication Review Details: Generic Name Dose Route Start Last Admin Trade Name Jensen PRN Reason Stop Dose Admin Albuterol/Ipratrop ium 3 ml 12/27/20 06:43 12/27/20 09:29 Ipratropium-Albu terol 3 Ml Neb INHALATION 3 ml Q6H.RESPIRATORY P RN Administration SHORTNESS OF IRA TH Albuterol/Ipratrop ium 3 ml 12/27/20 15:00 01/08/21 09:17 Ipratropium-Albu terol 3 Ml Neb INHALATION 3 ml Q6H.RESPIRATORY S CH Administration Amlodipine Besylat e 10 mg 01/02/21 17:00 01/08/21 09:56 Amlodipine 10 Mg Tablet PO 10 mg DAILY RANJIT Administration Aspirin 81 mg 12/30/20 09:00 01/08/21 09:56 Aspirin 81 Mg Ec Tablet PO 81 mg DAILY RANJIT Administration Budesonide 0.5 mg 12/27/20 20:00 01/08/21 09:17 Budesonide 0.5 M g/2 Ml Neb INHALATION 0.5 mg BID.RESPIRATORY S CH Administration Enoxaparin Sodium 40 mg 01/02/21 11:00 01/07/21 11:18 Enoxaparin 40 Mg /0.4 Ml Syringe SUBCUT 40 mg Q24H RANJIT Administration Famotidine 20 mg 01/06/21 18:00 01/08/21 06:37 Famotidine 20 Mg Tablet PO 20 mg Q12H RANJIT Administration Acetaminophen 1,000 mg in 100 m ls @ 400 mls/hr 12/31/20 16:18 01/05/21 20:52 Ofirmev IV Infused Q8H PRN Infusion FEVER Vancomycin HCl 1,0 00 mg/ 250 mls @ 250 mls /hr 01/04/21 06:00 01/08/21 10:52 Sodium Chloride IV Infused Q8H RANJIT Infusion Iron Sucrose 200 m g/ Sodium 110 mls @ 220 mls /hr 01/07/21 09:00 01/08/21 10:53 Chloride IV 01/11/21 09:29 Infused DAILY [facility] Infusion Insulin Aspart 0 unit 12/27/20 21:00 01/07/21 21:38 Insulin Aspart 1 00 Unit/1 Ml SUBCUT 3 unit BEDTIME RANJIT Administration Protocol Insulin Aspart 0 unit 12/28/20 00:00 01/08/21 07:04 Insulin Aspart 1 00 Unit/1 Ml SUBCUT Not Given Q6H [facility] Protocol Insulin Human NPH 5 unit 01/04/21 08:00 01/08/21 09:55 Insulin Nph Genoveva n 100 Units/1 Ml SUBCUT 5 unit Q12H RANJIT Administration Nystatin 1 applic 12/27/20 09:00 01/08/21 10:00 Nystatin Powder 15 Gm Btl TOPICAL 1 applic BID RANJIT Administration Nystatin 500,000 unit 01/07/21 09:00 01/08/21 09:56 Nystatin 100,000 Unit/Ml Udc 5 Ml PO 500,000 unit QID RANJIT Administration Tizanidine HCl 2 mg 01/02/21 15:00 01/08/21 09:56 Tizanidine 4 Mg Tablet PO 2 mg TID RANJIT Administration Venlafaxine HCl 75 mg 01/02/21 18:00 01/08/21 09:56 Venlafaxine 75 M g Tablet PO 75 mg BID RANJIT Administration Vitals/I&O/Wt Last Vital Signs Temp 98.1 F 01/09/21 16:47 Pulse 94 01/09/21 16:47 Resp 17 01/09/21 16:47 BP 123/79 01/09/21 15:47 Pulse Ox 97 01/09/21 16:47 01/09/21 01/09/21 01/09/21 06:59 14:59 22:59 Intake Total 1930 / 3660 550 / 550 Balance 1930 / 3660 550 / 550 Weight last 48 hrs Weight 95.98 kg Weight 98.339 kg Physical Exam Const: COMMON NORMALS: no acute distress and patient oriented x3 HENMT: COMMON NORMALS: normocephalic HEAD & SCALP: normocephalic Neck/C-Spine: COMMON NORMALS: no JVD Resp: COMMON NORMALS: normal respiratory effort, No retractions, No use of accessory muscles and clear to auscultation bilaterally AUSCULTATION: clear to auscultation bilaterally Cardio: COMMON NORMALS: no JVD, regular rate, regular rhythm, S1 normal heart sound present and S2 normal heart sound present RATE: regular rate RHYTHM: regular rhythm HEART SOUNDS: S1 normal heart sound present and S2 normal heart sound present GI: COMMON NORMALS: Normal to inspection, nondistended, normoactive bowel sounds present, Soft to palpation, non-tender, No hepatosplenomegaly present, no masses and no bruits PALPATION: Yes Soft to palpation and Yes No hepatosplenomegaly present Extremity: COMMON NORMALS: capillary refill normal, no clubbing, cyanosis or edema, no calf tenderness and no pedal edema Neuro: COMMON NORMALS: patient oriented x3 Psych: COMMON NORMALS: mental status grossly normal Urinary Catheter Management^: Garber: Cath Placed During This Visit: yes Reason for Continuing Indwelling Catheter: Accurate Measurement of Urinary Output in Critically Ill Patients Urinary Catheter Date of Insertion: 12/27/20 Urinary Catheter Time of Insertion: 00:51 Data : 01/09/21 10:43 01/09/21 10:43 A&P Assessment and plan (1) Sepsis: Status: Acute Qualifiers: Sepsis type: Streptococcus, other Sepsis acute organ dysfunction status: with acute organ dysfunction Severe sepsis acute organ dysfunction type: encephalopathy Severe sepsis shock status: without septic shock Qualified Code(s): A40.8 - Other streptococcal sepsis; R65.20 - Severe sepsis without septic shock; G93.41 - Metabolic encephalopathy (2) Streptococcal bacteremia: Status: Acute (3) Thrush: Status: Acute (4) Hypoxemia: Not chronically on oxygen, history of prior tobacco use, CTA with some emphysematous changes but otherwise unremarkable. Status: Acute (5) Cellulitis: Bilateral lower extremities, left more significant than right. Status: Acute Qualifiers: Site of cellulitis: extremity Site of cellulitis of extremity: lower extremity Laterality: right Qualified Code(s): L03.115 - Cellulitis of right lower limb (6) Acute encephalopathy: Status: Acute (7) Diabetes mellitus, type II: Looks to chronically only be on Metformin, currently with hyperglycemia Status: Chronic Qualifiers: Diabetes mellitus ticket sorter insulin use: without long-term use Diabetes mellitus complication status: with diabetic arthropathy Diabetes mellitus complication detail: with other arthropathy Qualified Code(s): E11.618 - Type 2 diabetes mellitus with other diabetic arthropathy Additional A&P Information Ms. Snyder is a 60-year-old female with complicated past medical history, currently admitted since December 27, 2020 after presenting with altered mental status of unclear etiology. Thus far work-up has been significant for presence of streptococcal bacteremia, unclear source, however could be skin source from lower extremity cellulitis versus respiratory source from developing pneumonia. Hospital course has also been complicated by acute hypoxic respiratory failure resulting in emergent intubation, status post extubation #Streptococcal septicemia, on vancomycin, total of 14 days #MRSA pneumonia, on vancomycin, total 14 days, 2 L #Encephalopathy, can be metabolic encephalopathy from sepsis, resolved -Blood culture noted to be positive for group G streptococcus from day of admission, subsequent blood cultures have not revealed any growth. Unclear source of septicemia at this present time, potential sources could be lower extremity cellulitis. Patient is noted to have chronic lymphedema with changes of stasis dermatitis affecting both lower extremities. Right leg does have more prominent changes on the left side. There was noted to be cellulitis on the right lower extremity, which appears to be improving per review of chart notes. No gross edema, warmth or tenderness noted at the right knee joint which is status post replacement. No other gross joint swelling noted. There is small ulceration over the right heel, pictures of which have been reviewed from the podiatry note, appears to be chronic in appearance. No underlying osteomyelitis noted on CT. Even if present, chronic osteomyelitis is highly unlikely to be the source of current sepsis. Patient is noted to be edentulous, very poor oral hygiene, thrush noted in the mouth. Group C streptococcus could be of oropharyngeal origin as well. CT of lumbosacral spine negative fo osteomyelitis/discitis/epidural abscess Also has been on vancomycin since admission which covers for Streptococcus. Currently on vancomycin, for a total of 14 days since December, Interim admission events have included intubation for acute hypoxic respiratory failure with development of bilateral infiltrates in both chest. This could represent worsening pneumonia, especially MRSA pneumonia given that sputum culture is positive for this agent. Other possible differentials include COVID- 19 pneumonia, though PCR and antigen were negative upon admission. Possibility of septic embolization from bacteremia remains a possibility, TTE negative for vegetations. Viral pneumonitis could present similarly, respiratory viral panel taken and remains pending. Patient has been started on steroids upon admission due to concern for poor respiratory status and noted wheezing on exam. Though I do not see any chronic steroids listed on her home medications, possibility of disseminated strongyloidosis needs to be considered, check strongyloidiasis antibody for the same. Unlikely to be pneumocystis pneumonitis as there were no infiltrates on day of admission, unlikely for the latter condition to develop within 3 days in a patie nt who has not otherwise been on long-term steroids and is HIV negative. Acute encephalopathy, resolved, present since admission, likely related to metabolic encephalopathy from sepsis. Cannot exclude possibility of bacterial meningitis. LP was unable to be performed in spite of attempts by paper tube cutter and radiology, likely contributed by body habitus. CT head negative. No gross improvement with trial of acyclovir over 48 hours. Given otherwise evidence of ongoing bacterial infection, less likely that herpes encephalitis as a result of mental status changes. Acyclovir discontinued Non infectious differentials include status epilepticus versus opioid withdrawal. serum cryptococcal antigen pending check serum RPR HIV status negative Oral thrush: Continue Fluconazole 100mg po daily x 10 days Fever. Remains afebrile, probably due to severe cellulitis in the lower extremities, possible bilateral pneumonia, drug withdrawals. 3 attempts for LP were unsuccessful. Covid testing was negative. Improved significantly. Remains afebrile. Procalcitonin level is normalized. Leukocytosis is resolved. Discussed with Dr. Winters. She is recommending vancomycin for total of 14 da ys after last negative blood culture result which was on . Case management is arranging her placement to half-way facility and IV antibiotics. Generalized deconditioning and debilitated state, acute on chronic secondary to above. Acute metabolic encephalopathy secondary to infection and drugs. Withdrawal from drugs was suspected. Resolved. Currently stable. Acute respiratory failure. Resolved. Extubated. Appreciate Dr. Rosario's input. Thrush. Nystatin swish and swallow for additional 4 days. Anemia. Hemoglobin down to 6.8, discontinue Lovenox, will give 1 unit PRBC, c ontinue Protonix, Carafate Hypertension. Well-controlled. Continue current management. Diabetes. Insulin sliding scale. DVT prophylaxis. Lovenox on hold, SCDs The plan of care was discussed with the patient. She verbalized understanding and agreement. I also discussed with her son yesterday on the phone per her request. He verbalized understanding and satisfaction with the conversation. Attestations Medical Necessity Statement*: Patient requires hospitalization for acute encephalopathy, resolved, MRSA pneumonia, gram-positive bacteremia, anemia, deconditioning, requiring senior living placement Coding Level of Care Code Acute Shells Inspector for g Fwd Diagnoses Sepsis A40.8; R65.20; G93.41 Sepsis type: Streptococcus, other Sepsis acute organ dysfunction status: with acute organ dysfunction Severe sepsis acute organ dysfunction type: encephalopathy Severe sepsis shock status: without septic shock Streptococcal bacteremia R78.81; B95.5 Thrush B37.0 Hypoxemia R09.02 Cellulitis L03.115 Site of cellulitis: extremity Site of cellulitis of extremity: lower extremity Laterality: right Acute encephalopathy G93.40 Diabetes mellitus, type II E11.618 Diabetes mellitus long-term insulin use: without ticket sorter use Diabetes mellitus complication status: with diabetic arthropathy Diabetes mellitus complication detail: with other arthropathy
[2021-01-09] MEDS: sucralfate 1 gm Tablet PO ×2 (18:01→20:40)
[2021-01-09] MEDS: TRAMadol 50 mg Tablet PO (18:01)
[2021-01-09] MEDS: pantoprazole DR 40 mg Tablet PO (18:02)
[2021-01-09 18:57] LABS: Hematocrit 27.1 % (37.0-47.0)
[2021-01-09 20:46] LABS: Glucose Point of Care 216 mg/dL (70-110)
[2021-01-10] VITALS (11 sets, daily range): BP systolic 100–145; BP diastolic 61–80; PULSE 80–98; RESP 17–20; TEMP 35.9–36.8; O2SAT 91–100
[2021-01-10 00:07] LABS: Glucose Point of Care 117 mg/dL (70-110)
[2021-01-10] MEDS: TRAMadol 50 mg Tablet PO ×4 (00:08→19:56)
[2021-01-10] MEDS: acetaminophen 325 mg Tablet 650 MG PO ×3 (02:30→16:35)
[2021-01-10] MEDS: ipratropium-albuterol 3 mL Neb INHALATION ×2 (03:13→08:34)
[2021-01-10 05:04] LABS: Glucose Point of Care 111 mg/dL (70-110)
[2021-01-10 05:11] LABS: Basophils % 0.3 %; Eosinophils # 0.1 10^3/uL (0.0-0.8); Eosinophils % 1.6 %; Hematocrit 27.1 % (37.0-47.0); Hemoglobin 8.3 g/dL (11.5-15.3); Lymphocytes % 15.7 %; Mean Corpuscular HGB Conc 30.6 g/dL (30.0-36.0); Mean Corpuscular Volume 101.1 fL (81-99); Mean Platelet Volume 9.7 fL (7.4-10.4); Monocytes # 0.7 10^3/uL (0.2-0.9); Monocytes % 10.6 %; Neutrophils # 4.44 10^3/uL (1.8-7.7); Neutrophils % 71.3 %; Nucleated Red Blood Cells % 0 %; Platelet Count 367 10^3/cmm (130-400); Red Blood Count 2.68 10^6/uL (4.1-5.3); Red Cell Distribution Width 19.6 % (12.1-15.1); White Blood Count 6.2 10^3/uL (4.0-10.0)
[2021-01-10] MEDS: vancomycin 1,000 MG in sodium chloride 0.9% 250 ML 250 MG IV (06:41)
[2021-01-10] MEDS: sucralfate 1 gm Tablet PO ×4 (06:41→22:21)
[2021-01-10 06:42] LABS: Glucose Point of Care 108 mg/dL (70-110)
[2021-01-10 07:38] LABS: Alanine Aminotransferase 9 U/L (0-33); Albumin Level 2.6 g/dL (3.5-5.2); Alkaline Phosphatase 84 IU/L (35-105); Anion Gap 10.3 (5-19); Aspartate Amino Transferase 8 U/L (0-32); Blood Urea Nitrogen 5 mg/dL (8-23); Calcium 8.4 mg/dL (8.5-10.5); Carbon Dioxide 30 mmol/L (22-29); Chloride 106 mmol/L (98-107); Globulin 2.7 g/dL (1.3-4.6); Glomerular Filtration Rate 362.3 mL/min (90-130); Glucose 99 mg/dL (65-115); Magnesium 1.7 mg/dL (1.7-2.3); Osmolality Calculated 293 mOsm/kg (285-295); Phosphorus 3.7 mg/dL (2.5-4.5); Potassium 3.3 mmol/L (3.5-5.1); Sodium 143 mmol/L (136-145); Total Bilirubin 0.7 mg/dL (0.15-1.2); Total Protein 5.3 g/dL (6.6-8.7)
[2021-01-10] MEDS: pantoprazole DR 40 mg Tablet PO ×2 (08:23→17:39)
[2021-01-10] MEDS: amlodipine 10 mg Tablet PO (08:23)
[2021-01-10] MEDS: gabapentin 300 mg Capsule PO ×3 (08:23→21:51)
[2021-01-10] MEDS: venlafaxine 75 mg Tablet PO (08:23)
[2021-01-10] MEDS: tizanidine 4 mg Tablet 2 MG PO ×3 (08:23→21:51)
[2021-01-10] MEDS: aspirin 81 mg EC Tablet PO (08:24)
[2021-01-10] MEDS: insulin nph human 100 units/1 mL 5 UNIT SUBCUT ×2 (08:30→21:26)
[2021-01-10] MEDS: budesonide 0.5 mg/2 mL Neb INHALATION (08:34)
[2021-01-10] MEDS: nystatin 100,000 unit/mL UDC 5 mL 500000 UNIT PO ×4 (10:38→21:51)
[2021-01-10] MEDS: nystatin powder 15 gm Btl 1 APPLIC TOPICAL ×2 (10:38→17:41)
[2021-01-10] MEDS: potassium chloride ER 20 mEq Tablet 40 MEQ PO (10:41)
[2021-01-10 11:56] LABS: Glucose Point of Care 270 mg/dL (70-110)
--- NOTE | 2021-01-10 12:45 | PM.PSYCN ---
Providers/Reason for Consult Consulting Physican/Specialty*: Helen De Jesus DO Reason for Consult*: Worsening depressive symptoms Attending Physician: Jose Tapia MD Primary Care Provider: Debbie Dietz DO Psych Consult HPI History of Present Illness Polina Snyder is a 60 year old female with recent admission for altered mental status secondary to metabolic encephalopathy which has since resolved reports worsening depressive symptoms with decreased motivation and decreased interest. Psychiatry consulted to evaluate for medication management strategies with regards to patient's worsening depressive symptoms. Patient reports history of depressive symptoms treated by her primary care with Effexor 75 mg twice daily and BuSpar 5 mg 3 times daily. Patient reports that she had been experiencing worsening depressive symptoms prior to her hospitalization secondary to multiple life stressors to include her constant struggle with chronic pain. Patient reports that she was experiencing low mood states decreased energy and interest in her usual activities, alterations in her diet and sleep secondary to mood symptoms. Patient reports that she has had passive thoughts but never had any active intent or plan of ending her life. She denies any history of suicide attempts and denies any history of psychiatric hospitalizations. She denies any current suicidal ideation or thoughts about self-harm. Patient denies any perceptual disturbances, denies any auditory or visual hallucinations, denies any delusions. Psychiatric review of systems is otherwise negative. Patient does have significant history for substance abuse and opiate abuse. Patient states that she had previously used methamphetamine on a daily basis starting 5 years ago for a couple of years but reports currently using methamphetamine a couple times per week on average. She denies any other illicit drug use but reports that she has used marijuana intermittently. Patient reports that she has little interest in doing things to include taking care of herself but does report an interest in going home and getting back into her normal routine. Patient reports living with her significant other and states that she has a good support system. Review of Systems General: Reports: 10 or more systems reviewed and unremarkable except in HPI and below Meds Current Medications: Current Medications Generic Name Dose Route Start Last Admin Trade Name Freq PRN Reason Stop Dose Admin Acetaminophen 650 mg 01/09/21 15:31 01/10/21 10:37 Acetaminophen 32 5 Mg Tablet PO 650 mg Q6H PRN Administration MILD PAIN Albuterol/Ipratrop ium 3 ml 12/27/20 06:43 12/27/20 09:29 Ipratropium-Albu terol 3 Ml Neb INHALATION 3 ml Q6H.RESPIRATORY P RN Administration SHORTNESS OF IRA TH Albuterol/Ipratrop ium 3 ml 12/27/20 15:00 01/10/21 08:34 Ipratropium-Albu terol 3 Ml Neb INHALATION 3 ml Q6H.RESPIRATORY S CH Administration Amlodipine Besylat e 10 mg 01/02/21 17:00 01/10/21 08:23 Amlodipine 10 Mg Tablet PO 10 mg DAILY RANJIT Administration Aspirin 81 mg 12/30/20 09:00 01/10/21 08:24 Aspirin 81 Mg Ec Tablet PO 81 mg DAILY RANJIT Administration Budesonide 0.5 mg 12/27/20 20:00 01/10/21 08:34 Budesonide 0.5 M g/2 Ml Neb INHALATION 0.5 mg BID.RESPIRATORY S CH Administration Enoxaparin Sodium 40 mg 01/02/21 11:00 01/08/21 13:53 Enoxaparin 40 Mg /0.4 Ml Syringe SUBCUT 40 mg Q24H RANJIT Administration Gabapentin 300 mg 01/08/21 15:00 01/10/21 08:23 Gabapentin 300 M g Capsule PO 300 mg TID RANJIT Administration Vancomycin HCl 1,0 00 mg/ 250 mls @ 250 mls /hr 01/04/21 06:00 01/10/21 06:41 Sodium Chloride IV 250 mls/hr Q8H RANJIT Administration Iron Sucrose 200 m g/ Sodium 110 mls @ 220 mls /hr 01/07/21 09:00 01/10/21 10:37 Chloride IV 01/11/21 09:29 220 mls/hr DAILY RANJIT Administration Insulin Aspart 0 unit 12/27/20 21:00 01/09/21 20:39 Insulin Aspart 1 00 Unit/1 Ml SUBCUT 3 unit BEDTIME RANJIT Administration Protocol Insulin Aspart 0 unit 12/28/20 00:00 01/10/21 05:23 Insulin Aspart 1 00 Unit/1 Ml SUBCUT Not Given Q6H RANJIT Protocol Insulin Human NPH 5 unit 01/04/21 08:00 01/10/21 08:30 Insulin Nph Genoveva n 100 Units/1 Ml SUBCUT 5 unit Q12H RANJIT Administration Nystatin 1 applic 12/27/20 09:00 01/10/21 10:38 Nystatin Powder 15 Gm Btl TOPICAL 1 applic BID RANJIT Administration Nystatin 500,000 unit 01/07/21 09:00 01/10/21 10:38 Nystatin 100,000 Unit/Ml Udc 5 Ml PO 500,000 unit QID RANJIT Administration Pantoprazole Sodiu m 40 mg 01/09/21 18:00 01/10/21 08:[address] 40 Mg Tablet PO 40 mg BID RANJIT Administration Sucralfate 1 gm 01/09/21 17:00 01/10/21 06:41 Sucralfate 1 Gm Tablet PO 1 gm AC&BEDTIME RANJIT Administration Tizanidine HCl 2 mg 01/02/21 15:00 01/10/21 08:23 Tizanidine 4 Mg Tablet PO 2 mg TID RANJIT Administration Tramadol HCl 50 mg 01/09/21 17:40 01/10/21 06:41 Tramadol 50 Mg T ablet PO 50 mg Q6H PRN Administration MODERATE PAIN PFSH NPU PFSH: Medical History Cervical post-laminectomy syndrome [id number] disease-like deformity of foot right Chronic pain Depression with anxiety Diabetes mellitus, type II History of cardioversion history of SVT vs for other arrhythmia History of DVT of lower extremity post-operative Hyperlipidemia Hypertension Lumbar radiculopathy Lung cancer according to pain clinic notes, managed at [place], underwent radiation therapy in 2019 Torticollis, acquired Has had good results with Botox in the past Surgical History History of arthroplasty of left knee (~1976) History of partial hysterectomy Hx of appendectomy Hx of dilation and curettage Hx of neck surgery x 2, posterior laminectomy and cervical fusion with hardware in place, limited ROM neck at baseline Hx of total knee replacement (~2010) Right Hx of tubal ligation Family History Family/Other Hypertension Depression Anxiety Diabetes Father Aneurysm Mother Hypertension Brother Diabetes Sister Diabetes Social History Alcohol intake: never Substance/Drug Use: current Substance/Drug use type: Methamphetamine Marital status: Additional social history: unknown if patient continues to smoke, documented to smoke previously Other Psychiatric History: Other Psychiatric History: Reports current psychiatric medication management by primary care, reports last seeing a psychiatrist 3 years ago Denies any history of psychiatric hospitalizations Denies any history of suicide attempts or self-harm behavior Mental Status Exam MSE Comments: Lying on her side in her hospital bed, obese, disheveled, unkempt, tired appearing, polite, interactive, good eye contact Psychomotor activity is decreased, no agitation Speech is low volume, normal rate, spontaneous, clear reticulation, not pressured I feel horrible, congruent affect, constricted, not labile Alert and oriented to person, place, time, situation Memory and concentration appear to be intact per interview Intellectual functioning appears to be average based on vocabulary, interview Thought process, linear, no flight of ideas, no looseness of associations Thought content, no delusions, no hallucinations, no suicidal or homicidal ideation Insight and judgment appear to be intact Vitals/I&O/Wt Last Vital Signs Temp 96.7 F L 01/10/21 10:50 Pulse 85 01/10/21 10:50 Resp 18 01/10/21 10:50 BP 100/61 01/10/21 10:50 Pulse Ox 100 01/10/21 10:50 01/09/21 01/10/21 01/10/21 22:59 06:59 14:59 Intake Total 976 / 1526 250 / 1776 350 / 350 Balance 976 / 1526 250 / 1776 350 / 350 Weight last 48 hrs Weight 95.98 kg Physical Exam Urinary Catheter Management^: Garber: Cath Placed During This Visit: yes Reason for Continuing Indwelling Catheter: Accurate Measurement of Urinary Output in Critically Ill Patients Urinary Catheter Date of Insertion: 12/27/20 Urinary Catheter Time of Insertion: 00:51 A&P Assessment and plan (1) Depressive disorder: Status: Acute Additional A&P Information 60-year-old female with past psychiatric history of depression and anxiety presenting to the hospital with altered mental status and treated for metabolic encephalopathy which has since resolved but is significantly deconditioned reporting worsening depressive symptoms that appear to have been going on for a while and further compounded by her acute and chronic medical issues. Patient would benefit from change in antidepressant medication while titrating up for effect. Patient's clinical picture also complicated by reported ongoing use of illicit substances and chronic pain with recent/past use of opiate pain medications and PEDIATRIC ASSOCIATE sedating medications which can further affect mood symptoms. Patient is significantly deconditioned and would benefit from physical rehab which may also help improve mood. Inpatient psychiatric hospitalization is not indicated at this time, outpatient psychotropic medication management as well as therapy targeting development of more adaptive coping strategies for chronic medical issues is the least restrictive and appropriate level of care once patient is medically stabilized. START Lexapro 10 mg daily with plan to titrate up for effect and reevaluate for need for augmentation DISCONTINUE Effexor 75 mg twice daily Psychiatry will continue to follow during this hospitalization Attestations NPU Medical Necessity Statement*: Continues to require hospitalization for medical stabilization Time Spent in Patient Care: Greater than 35 minutes (>than 50% of time spent in counselling and/or direct pt care on unit). Coding Level of Care Code Acute Breaker Unit Assembler for Trent Crews Diagnoses Depressive disorder F32.9
--- NOTE | 2021-01-10 15:48 | PM.PN ---
Subjective Subjective: Interval history: Patient was examined this morning, she sitting up to the side of the bed, alert oriented x3, I was honest with patient given her history of methamphetamine use,, were having trouble placing her at a fdc we might just have to finish off her antibiotic treatment here as inpatient, and possibly send her home on Saturday on home health care, she agrees, she states her pain is a bit better under control with Ultram Medications: Reviewed: Yes Medication Review Details: Generic Name Dose Route Start Last Admin Trade Name Jensen PRN Reason Stop Dose Admin Albuterol/Ipratrop ium 3 ml 12/27/20 06:43 12/27/20 09:29 Ipratropium-Albu terol 3 Ml Neb INHALATION 3 ml Q6H.RESPIRATORY P RN Administration SHORTNESS OF IRA TH Albuterol/Ipratrop ium 3 ml 12/27/20 15:00 01/08/21 09:17 Ipratropium-Albu terol 3 Ml Neb INHALATION 3 ml Q6H.RESPIRATORY S CH Administration Amlodipine Besylat e 10 mg 01/02/21 17:00 01/08/21 09:56 Amlodipine 10 Mg Tablet PO 10 mg DAILY RANJIT Administration Aspirin 81 mg 12/30/20 09:00 01/08/21 09:56 Aspirin 81 Mg Ec Tablet PO 81 mg DAILY RANJIT Administration Budesonide 0.5 mg 12/27/20 20:00 01/08/21 09:17 Budesonide 0.5 M g/2 Ml Neb INHALATION 0.5 mg BID.RESPIRATORY S CH Administration Enoxaparin Sodium 40 mg 01/02/21 11:00 01/07/21 11:18 Enoxaparin 40 Mg /0.4 Ml Syringe SUBCUT 40 mg Q24H RANJIT Administration Famotidine 20 mg 01/06/21 18:00 01/08/21 06:37 Famotidine 20 Mg Tablet PO 20 mg Q12H RANJIT Administration Acetaminophen 1,000 mg in 100 m ls @ 400 mls/hr 12/31/20 16:18 01/05/21 20:52 Ofirmev IV Infused Q8H PRN Infusion FEVER Vancomycin HCl 1,0 00 mg/ 250 mls @ 250 mls /hr 01/04/21 06:00 01/08/21 10:52 Sodium Chloride IV Infused Q8H RANJIT Infusion Iron Sucrose 200 m g/ Sodium 110 mls @ 220 mls /hr 01/07/21 09:00 01/08/21 10:53 Chloride IV 01/11/21 09:29 Infused DAILY RANJIT Infusion Insulin Aspart 0 unit 12/27/20 21:00 01/07/21 21:38 Insulin Aspart 1 00 Unit/1 Ml SUBCUT 3 unit BEDTIME RANJIT Administration Protocol Insulin Aspart 0 unit 12/28/20 00:00 01/08/21 07:04 Insulin Aspart 1 00 Unit/1 Ml SUBCUT Not Given Q6H [facility] Protocol Insulin Human NPH 5 unit 01/04/21 08:00 01/08/21 09:55 Insulin Nph Genoveva n 100 Units/1 Ml SUBCUT 5 unit Q12H RANJIT Administration Nystatin 1 applic 12/27/20 09:00 01/08/21 10:00 Nystatin Powder 15 Gm Btl TOPICAL 1 applic BID RANJIT Administration Nystatin 500,000 unit 01/07/21 09:00 01/08/21 09:56 Nystatin 100,000 Unit/Ml Udc 5 Ml PO 500,000 unit QID RANJIT Administration Tizanidine HCl 2 mg 01/02/21 15:00 01/08/21 09:56 Tizanidine 4 Mg Tablet PO 2 mg TID RANJIT Administration Venlafaxine HCl 75 mg 01/02/21 18:00 01/08/21 09:56 Venlafaxine 75 M g Tablet PO 75 mg BID RANJIT Administration Vitals/I&O/Wt Last Vital Signs Temp 97.6 F 01/10/21 14:59 Pulse 98 01/10/21 14:59 Resp 20 H 01/10/21 14:59 BP 110/73 01/10/21 14:59 Pulse Ox 95 01/10/21 14:59 01/10/21 01/10/21 01/10/21 06:59 14:59 22:59 Intake Total 250 / 1776 350 / 350 Balance 250 / 1776 350 / 350 Weight last 48 hrs Weight 95.98 kg Physical Exam Const: COMMON NORMALS: no acute distress and patient oriented x3 HENMT: COMMON NORMALS: normocephalic HEAD & SCALP: normocephalic Neck/C-Spine: COMMON NORMALS: no JVD Resp: COMMON NORMALS: normal respiratory effort, No retractions, No use of accessory muscles and clear to auscultation bilaterally AUSCULTATION: clear to auscultation bilaterally Cardio: COMMON NORMALS: no JVD, regular rate, regular rhythm, S1 normal heart sound present and S2 normal heart sound present RATE: regular rate RHYTHM: regular rhythm HEART SOUNDS: S1 normal heart sound present and S2 normal heart sound present GI: COMMON NORMALS: Normal to inspection, nondistended, normoactive bowel sounds present, Soft to palpation, non-tender, No hepatosplenomegaly present, no masses and no bruits PALPATION: Yes Soft to palpation and Yes No hepatosplenomegaly present Extremity: COMMON NORMALS: capillary refill normal, no clubbing, cyanosis or edema, no calf tenderness and no pedal edema Neuro: COMMON NORMALS: patient oriented x3 Psych: COMMON NORMALS: mental status grossly normal Urinary Catheter Management^: Garber: Cath Placed During This Visit: yes Reason for Continuing Indwelling Catheter: Accurate Measurement of Urinary Output in Critically Ill Patients Urinary Catheter Date of Insertion: 12/27/20 Urinary Catheter Time of Insertion: 00:51 Data : 01/10/21 04:57 01/10/21 05:29 A&P Assessment and plan (1) Sepsis: Status: Acute Qualifiers: Sepsis type: Streptococcus, other Sepsis acute organ dysfunction status: with acute organ dysfunction Severe sepsis acute organ dysfunction type: encephalopathy Severe sepsis shock status: without septic shock Qualified Code(s): A40.8 - Other streptococcal sepsis; R65.20 - Severe sepsis without septic shock; G93.41 - Metabolic encephalopathy (2) Streptococcal bacteremia: Status: Acute (3) Thrush: Status: Acute (4) Hypoxemia: Not chronically on oxygen, history of prior tobacco use, CTA with some emphysematous changes but otherwise unremarkable. Status: Acute (5) Cellulitis: Bilateral lower extremities, left more significant than right. Status: Acute Qualifiers: Site of cellulitis: extremity Site of cellulitis of extremity: lower extremity Laterality: right Qualified Code(s): L03.115 - Cellulitis of right lower limb (6) Acute encephalopathy: Status: Acute (7) Diabetes mellitus, type II: Looks to chronically only be on Metformin, currently with hyperglycemia Status: Chronic Qualifiers: Diabetes mellitus predatory animal exterminator insulin use: without fpc use Diabetes mellitus complication status: with diabetic arthropathy Diabetes mellitus complication detail: with other arthropathy Qualified Code(s): E11.618 - Type 2 diabetes mellitus with other diabetic arthropathy Additional A&P Information Ms. Snyder is a 60-year-old female with complicated past medical history, currently admitted since December 27, 2020 after presenting with altered mental status of unclear etiology. Thus far work-up has been significant for presence of streptococcal bacteremia, unclear source, however could be skin source from lower extremity cellulitis versus respiratory source from developing pneumonia. Hospital course has also been complicated by acute hypoxic respiratory failure resulting in emergent intubation, status post extubation #Streptococcal septicemia, on vancomycin, total of 14 days #MRSA pneumonia, on vancomycin, total 14 days, will be finished on January 12, 2020 #Encephalopathy, can be metabolic encephalopathy from sepsis, resolved -Blood culture noted to be positive for group G streptococcus from day of admission, subsequent blood cultures have not revealed any growth. Unclear source of septicemia at this present time, potential sources could be lower extremity cellulitis. Patient is noted to have chronic lymphedema with changes of stasis dermatitis affecting both lower extremities. Right leg does have more prominent changes on the left side. There was noted to be cellulitis on the right lower extremity, which appears to be improving per review of chart notes. No gross edema, warmth or tenderness noted at the right knee joint which is status post replacement. No other gross joint swelling noted. There is small ulceration over the right heel, pictures of which have been reviewed from the podiatry note, appears to be chronic in appearance. No underlying osteomyelitis noted on CT. Even if present, chronic osteomyelitis is highly unlikely to be the source of current sepsis. Patient is noted to be edentulous, very poor oral hygiene, thrush noted in the mouth. Group C streptococcus could be of oropharyngeal origin as well. CT of lumbosacral spine negative fo osteomyelitis/discitis/epidural abscess Also has been on vancomycin since admission which covers for Streptococcus. Remains afebrile, probably due to severe cellulitis in the lower extremities, possible bilateral pneumonia, drug withdrawals. 3 attempts for LP were unsuccessful. Covid testing was negative. Improved significantly. Procalcitonin level is normalized. Leukocytosis is resolved. Discussed with Dr. Winters. She is recommending vancomycin for total of 14 days after last negative blood culture result which was on . Case management is arranging [facility] and IV antibiotics. However we might have to to give her the antibiotic course as inpatient, discharged on and discharged home with home health care on Currently on vancomycin, for a total of 14 days since December, Interim admission events have included intubation for acute hypoxic respiratory failure with development of bilateral infiltrates in both chest. This could represent worsening pneumonia, especially MRSA pneumonia given that sputum culture is positive for this agent. Other possible differentials include COVID-19 pneumonia, though PCR and antigen were negative upon admission. Possibility of septic embolization from bacteremia remains a possibility, TTE negative for vegetations. Viral pneumonitis could present similarly, respiratory viral panel taken and remains pending. Patient has been started on steroids upon admission due to concern for poor respiratory status and noted wheezing on exam. Though I do not see any chronic steroids listed on her home medications, possibility of disseminated strongyloidosis needs to be considered, check strongyloidiasis antibody for the same. Unlikely to be pneumocystis pneumonitis as there were no infiltrates on day of admission, unlikely for the latter condition to develop within 3 days in a patient who has not otherwise been on long-term steroids and is HIV negative. Acute encephalopathy, resolved, present since admission, likely related to metabolic encephalopathy from sepsis. Cannot exclude possibility of bacterial meningitis. LP was unable to be performed in spite of attempts by bark grinder and radiology, likely contributed by body habitus. CT head negative. No gross improvement with trial of acyclovir over 48 hours. Given otherwise evidence of ongoing bacterial infection, less likely that herpes encephalitis as a result of mental status changes. Acyclovir discontinued Non infectious differentials include status epilepticus versus opioid withdrawal. serum cryptococcal antigen pending check serum RPR HIV status negative Oral thrush: Continue Fluconazole 100mg po daily x 10 days Patient has chronic back pain has been on opiate medications in the past, has been to multiple physicians to get opiate medications, the last refill she got was from a neurosurgeon, her urine has been positive for methamphetamines, I have compromised with patient, and started her on Ultram, I advised patient that I will not give her any other narcotic pain medications, can try topical solutions Generalized deconditioning and debilitated state, acute on chronic secondary to above. Acute metabolic encephalopathy secondary to infection and drugs. Withdrawal from drugs was suspected. Resolved. Currently stable. Acute respiratory failure. Resolved. Extubated. Appreciate Dr. Rosario's input. Thrush. Nystatin swish and swallow for additional 4 days. Anemia. Hemoglobin 8.3, Lovenox on hold, status post 1 unit PRBC, continue Protonix, Carafate Hypertension. Well-controlled. Continue current management. Diabetes. Insulin sliding scale. DVT prophylaxis. Lovenox on hold, SCDs The plan of care was discussed with the patient. She verbalized understanding and agreement. I also discussed with her son yesterday on the phone per her request. He verbalized understanding and satisfaction with the conversation. Attestations Medical Necessity Statement*: Patient requires hospitalization for MRSA pneumonia, acute encephalopathy, respiratory failure, opiate withdrawal Coding Level of Care Code Acute Sub Plant Manager for [facility] Fwd Diagnoses Sepsis A40.8; R65.20; G93.41 Sepsis type: Streptococcus, other Sepsis acute organ dysfunction status: with acute organ dysfunction Severe sepsis acute organ dysfunction type: encephalopathy Severe sepsis shock status: without septic shock Streptococcal bacteremia R78.81; B95.5 Thrush B37.0 Hypoxemia R09.02 Cellulitis L03.115 Site of cellulitis: extremity Site of cellulitis of extremity: lower extremity Laterality: right Acute encephalopathy G93.40 Diabetes mellitus, type II E11.618 Diabetes mellitus predatory animal exterminator insulin use: without predatory animal exterminator use Diabetes mellitus complication status: with diabetic arthropathy Diabetes mellitus complication detail: with other arthropathy
[2021-01-10 16:37] LABS: Glucose Point of Care 191 mg/dL (70-110)
[2021-01-10 16:37] LABS: Glucose Point of Care 215 mg/dL (70-110)
--- NOTE | 2021-01-10 19:33 | PC.NURSE ---
Patient's IV was infiltrated this AM. This nurse attempted to restart IV twice. Let charge nurse know, housekeeper supervisor was notified. She came up attempted to obtain IV access x2. Ultrasound was attempted to get IV unsuccessful. ER nurse attempted and was unsuccessful. Patient has been stuck several times trying to obtain IV access, she currently has Vanc and Iron sucrose ordered that was not given today. Attempted to contact physician and was unable at this time.
[2021-01-10 21:20] LABS: Glucose Point of Care 125 mg/dL (70-110)
[2021-01-10] MEDS: iron sucrose 200 MG in sodium chloride 0.9% (100 ml) 100 ML 220 MG IV (21:30)
--- NOTE | 2021-01-10 22:43 | PC.NURSE ---
IV placed left upper arm on pm shift. Pt IV could not be obtained on the am shift. multiple tries. This evening she has a patent nonsymptomatic IV on the Left upper arm 20g. It is running with Iron Sucrose at present.
[2021-01-11] VITALS (19 sets, daily range): BP systolic 110–142; BP diastolic 63–85; PULSE 81–107; RESP 16–20; TEMP 36.4–37.2; O2SAT 90–98
[2021-01-11 01:48] LABS: Glucose Point of Care 131 mg/dL (70-110)
[2021-01-11] MEDS: vancomycin 1,000 MG in sodium chloride 0.9% 250 ML 250 MG IV ×3 (02:04→17:25)
[2021-01-11] MEDS: TRAMadol 50 mg Tablet PO ×2 (02:08→17:25)
[2021-01-11] MEDS: acetaminophen 325 mg Tablet 650 MG PO ×3 (04:02→21:28)
[2021-01-11] MEDS: HYDROmorphone 1 mg/mL INJ 1 mL 0.5 MG IVP ×2 (04:44→09:06)
--- NOTE | 2021-01-11 04:46 | PC.NURSE ---
uncontrolled pain pt tearful, contacted physician, pt had tylenol 650 mg po with tramadol given 2 hours prior without relief of pain. pt ordered Dilaudid 0.5ml IVP q4 prn
[2021-01-11 05:34] LABS: Basophils % 0.3 %; Eosinophils # 0.1 10^3/uL (0.0-0.8); Eosinophils % 1.7 %; Hematocrit 28.6 % (37.0-47.0); Hemoglobin 8.7 g/dL (11.5-15.3); Lymphocytes # 1.1 10^3/uL (0.8-4.8); Lymphocytes % 19.7 %; Mean Corpuscular HGB Conc 30.4 g/dL (30.0-36.0); Mean Corpuscular Hemoglobin 30.9 pg (28.0-34.0); Mean Corpuscular Volume 101.4 fL (81-99); Mean Platelet Volume 9.7 fL (7.4-10.4); Monocytes # 0.6 10^3/uL (0.2-0.9); Monocytes % 9.6 %; Neutrophils # 3.91 10^3/uL (1.8-7.7); Neutrophils % 68.4 %; Nucleated Red Blood Cells % 0 %; Platelet Count 367 10^3/cmm (130-400); Red Blood Count 2.82 10^6/uL (4.1-5.3); White Blood Count 5.7 10^3/uL (4.0-10.0)
[2021-01-11 05:49] LABS: Alanine Aminotransferase 10 U/L (0-33); Albumin Level 2.6 g/dL (3.5-5.2); Alkaline Phosphatase 87 IU/L (35-105); Anion Gap 11.5 (5-19); Aspartate Amino Transferase 9 U/L (0-32); Blood Urea Nitrogen 5 mg/dL (8-23); Calcium 8.6 mg/dL (8.5-10.5); Carbon Dioxide 31 mmol/L (22-29); Chloride 103 mmol/L (98-107); Globulin 3.4 g/dL (1.3-4.6); Glomerular Filtration Rate 362.3 mL/min (90-130); Glucose 93 mg/dL (65-115); Magnesium 1.7 mg/dL (1.7-2.3); Osmolality Calculated 291 mOsm/kg (285-295); Phosphorus 3.2 mg/dL (2.5-4.5); Potassium 3.5 mmol/L (3.5-5.1); Sodium 142 mmol/L (136-145); Total Bilirubin 0.6 mg/dL (0.15-1.2)
[2021-01-11] MEDS: sucralfate 1 gm Tablet PO ×4 (06:25→21:28)
[2021-01-11 06:46] LABS: Glucose Point of Care 88 mg/dL (70-110)
[2021-01-11] MEDS: insulin nph human 100 units/1 mL 5 UNIT SUBCUT (08:57)
[2021-01-11] MEDS: nystatin powder 15 gm Btl 1 APPLIC TOPICAL ×2 (08:58→17:27)
[2021-01-11] MEDS: nystatin 100,000 unit/mL UDC 5 mL 500000 UNIT PO ×4 (08:59→21:28)
[2021-01-11] MEDS: aspirin 81 mg EC Tablet PO (08:59)
[2021-01-11] MEDS: tizanidine 4 mg Tablet 2 MG PO ×3 (08:59→21:28)
[2021-01-11] MEDS: gabapentin 300 mg Capsule PO ×3 (08:59→21:28)
[2021-01-11] MEDS: escitalopram 10 mg Tablet PO (08:59)
[2021-01-11] MEDS: amlodipine 10 mg Tablet PO (08:59)
[2021-01-11] MEDS: pantoprazole DR 40 mg Tablet PO ×2 (08:59→17:25)
[2021-01-11] MEDS: iron sucrose 200 MG in sodium chloride 0.9% (100 ml) 100 ML 220 MG IV (09:18)
[2021-01-11 11:42] LABS: Glucose Point of Care 132 mg/dL (70-110)
--- NOTE | 2021-01-11 13:20 | PC.SOCIAL ---
IMM UPDATE: PG 2 of IMM update given to patient who verbalized an understanding, initialed, dated, and placed in chart.
--- NOTE | 2021-01-11 14:15 | PM.PN ---
Subjective Subjective: Interval history: Patient was examined this morning she tells me that she was given Dilaudid overnight, that significantly helped her with the pain, she is wondering if Dilaudid comes in a p.o. form, that she can take when she goes home, again I have reiterated to with the patient that I will not prescribe her narcotic pain medications, she was given a one-time dose of the medication overnight due to this pain, she has a history of methamphetamine use, history of narcotic abuse, doctor shopping, and I will only give her a very small and temporary supply of Ultram for her to go home, she is a bit happy that she is going to go home tomorrow after last dose of vancomycin Medications: Reviewed: Yes Medication Review Details: Generic Name Dose Route Start Last Admin Trade Name Jensen PRN Reason Stop Dose Admin Albuterol/Ipratrop ium 3 ml 12/27/20 06:43 12/27/20 09:29 Ipratropium-Albu terol 3 Ml Neb INHALATION 3 ml Q6H.RESPIRATORY P RN Administration SHORTNESS OF IRA TH Albuterol/Ipratrop ium 3 ml 12/27/20 15:00 01/08/21 09:17 Ipratropium-Albu terol 3 Ml Neb INHALATION 3 ml Q6H.RESPIRATORY S CH Administration Amlodipine Besylat e 10 mg 01/02/21 17:00 01/08/21 09:56 Amlodipine 10 Mg Tablet PO 10 mg DAILY RANJIT Administration Aspirin 81 mg 12/30/20 09:00 01/08/21 09:56 Aspirin 81 Mg Ec Tablet PO 81 mg DAILY RANJIT Administration Budesonide 0.5 mg 12/27/20 20:00 01/08/21 09:17 Budesonide 0.5 M g/2 Ml Neb INHALATION 0.5 mg BID.RESPIRATORY S CH Administration Enoxaparin Sodium 40 mg 01/02/21 11:00 01/07/21 11:18 Enoxaparin 40 Mg /0.4 Ml Syringe SUBCUT 40 mg Q24H RANJIT Administration Famotidine 20 mg 01/06/21 18:00 01/08/21 06:37 Famotidine 20 Mg Tablet PO 20 mg Q12H RANJIT Administration Acetaminophen 1,000 mg in 100 m ls @ 400 mls/hr 12/31/20 16:18 01/05/21 20:52 Ofirmev IV Infused Q8H PRN Infusion FEVER Vancomycin HCl 1,0 00 mg/ 250 mls @ 250 mls /hr 01/04/21 06:00 01/08/21 10:52 Sodium Chloride IV Infused Q8H RANJIT Infusion Iron Sucrose 200 m g/ Sodium 110 mls @ 220 mls /hr 01/07/21 09:00 01/08/21 10:53 Chloride IV 01/11/21 09:29 Infused DAILY RANJIT Infusion Insulin Aspart 0 unit 12/27/20 21:00 01/07/21 21:38 Insulin Aspart 1 00 Unit/1 Ml SUBCUT 3 unit BEDTIME RANJIT Administration Protocol Insulin Aspart 0 unit 12/28/20 00:00 01/08/21 07:04 Insulin Aspart 1 00 Unit/1 Ml SUBCUT Not Given Q6H [facility] Protocol Insulin Human NPH 5 unit 01/04/21 08:00 01/08/21 09:55 Insulin Nph Geonveva n 100 Units/1 Ml SUBCUT 5 unit Q12H RANJIT Administration Nystatin 1 applic 12/27/20 09:00 01/08/21 10:00 Nystatin Powder 15 Gm Btl TOPICAL 1 applic BID RANJIT Administration Nystatin 500,000 unit 01/07/21 09:00 01/08/21 09:56 Nystatin 100,000 Unit/Ml Udc 5 Ml PO 500,000 unit QID RANJIT Administration Tizanidine HCl 2 mg 01/02/21 15:00 01/08/21 09:56 Tizanidine 4 Mg Tablet PO 2 mg TID RANJIT Administration Venlafaxine HCl 75 mg 01/02/21 18:00 01/08/21 09:56 Venlafaxine 75 M g Tablet PO 75 mg BID RANJIT Administration Vitals/I&O/Wt Last Vital Signs Temp 97.9 F 01/11/21 11:41 Pulse 81 01/11/21 11:41 Resp 18 01/11/21 11:41 BP 121/77 01/11/21 11:41 Pulse Ox 90 01/11/21 11:41 01/10/21 01/11/21 01/11/21 22:59 06:59 14:59 Intake Total 720 / 1070 250 / 1320 470 / 470 Balance 720 / 1070 250 / 1320 470 / 470 Physical Exam Const: COMMON NORMALS: no acute distress and patient oriented x3 HENMT: COMMON NORMALS: normocephalic HEAD & SCALP: normocephalic Neck/C-Spine: COMMON NORMALS: no JVD Resp: COMMON NORMALS: normal respiratory effort, No retractions, No use of accessory muscles and clear to auscultation bilaterally AUSCULTATION: clear to auscultation bilaterally Cardio: COMMON NORMALS: no JVD, regular rate, regular rhythm, S1 normal heart sound present and S2 normal heart sound present RATE: regular rate RHYTHM: regular rhythm HEART SOUNDS: S1 normal heart sound present and S2 normal heart sound present GI: COMMON NORMALS: Normal to inspection, nondistended, normoactive bowel sounds present, Soft to palpation, non-tender, No hepatosplenomegaly present, no masses and no bruits PALPATION: Yes Soft to palpation and Yes No hepatosplenomegaly present Extremity: COMMON NORMALS: capillary refill normal, no clubbing, cyanosis or edema, no calf tenderness and no pedal edema Neuro: COMMON NORMALS: patient oriented x3 Psych: COMMON NORMALS: mental status grossly normal Urinary Catheter Management^: Garber: Cath Placed During This Visit: yes Reason for Continuing Indwelling Catheter: Accurate Measurement of Urinary Output in Critically Ill Patients Urinary Catheter Date of Insertion: 12/27/20 Urinary Catheter Time of Insertion: 00:51 Data : 01/11/21 04:55 01/11/21 04:55 A&P Assessment and plan (1) Sepsis: Status: Acute Qualifiers: Sepsis type: Streptococcus, other Sepsis acute organ dysfunction status: with acute organ dysfunction Severe sepsis acute organ dysfunction type: encephalopathy Severe sepsis shock status: without septic shock Qualified Code(s): A40.8 - Other streptococcal sepsis; R65.20 - Severe sepsis without septic shock; G93.41 - Metabolic encephalopathy (2) Streptococcal bacteremia: Status: Acute (3) Thrush: Status: Acute (4) Hypoxemia: Not chronically on oxygen, history of prior tobacco use, CTA with some emphysematous changes but otherwise unremarkable. Status: Acute (5) Cellulitis: Bilateral lower extremities, left more significant than right. Status: Acute Qualifiers: Site of cellulitis: extremity Site of cellulitis of extremity: lower extremity Laterality: right Qualified Code(s): L03.115 - Cellulitis of right lower limb (6) Acute encephalopathy: Status: Acute (7) Diabetes mellitus, type II: Looks to chronically only be on Metformin, currently with hyperglycemia Status: Chronic Qualifiers: Diabetes mellitus long wall mining machine helper insulin use: without penitentiary use Diabetes mellitus complication status: with diabetic arthropathy Diabetes mellitus complication detail: with other arthropathy Qualified Code(s): E11.618 - Type 2 diabetes mellitus with other diabetic arthropathy Additional A&P Information Ms. Snyder is a 60-year-old female with complicated past medical history, currently admitted since December 27, 2020 after presenting with altered mental status of unclear etiology. Thus far work-up has been significant for presence of streptococcal bacteremia, unclear source, however could be skin source from lower extremity cellulitis versus respiratory source from developing pneumonia. Hospital course has also been complicated by acute hypoxic respiratory failure resulting in emergent intubation, status post extubation #Streptococcal septicemia, on vancomycin, total of 14 days #MRSA pneumonia, on vancomycin, total 14 days, will be finished on January 12, 2020, discharge thereafter on home health care #Encephalopathy, can be metabolic encephalopathy from sepsis, resolved -Blood culture noted to be positive for group G streptococcus from day of admission, subsequent blood cultures have not revealed any growth. Unclear source of septicemia at this present time, potential sources could be lower extremity cellulitis. Patient is noted to have chronic lymphedema with changes of stasis dermatitis affecting both lower extremities. Right leg does have more prominent changes on the left side. There was noted to be cellulitis on the right lower extremity, which appears to be improving per review of chart notes. No gross edema, warmth or tenderness noted at the right knee joint which is status post replacement. No other gross joint swelling noted. There is small ulceration over the right heel, pictures of which have been reviewed from the podiatry note, appears to be chronic in appearance. No underlying osteomyelitis noted on CT. Even if present, chronic osteomyelitis is highly unlikely to be the source of current sepsis. Patient is noted to be edentulous, very poor oral hygiene, thrush noted in the mouth. Group C streptococcus could be of oropharyngeal origin as well. CT of lumbosacral spine negative fo osteomyelitis/discitis/epidural abscess Also has been on vancomycin since admission which covers for Streptococcus. Remains afebrile, probably due to severe cellulitis in the lower extremities, possible bilateral pneumonia, drug withdrawals. 3 attempts for LP were unsuccessful. Covid testing was negative. Improved significantly. Procalcitonin level is normalized. Leukocytosis is resolved. Discussed with Dr. Winters. She is recommending vancomycin for total of 14 days after last negative blood culture result which was on . Will be discharged home with home health care tomorrow after last dose of IV antibiotic Interim admission events have included intubation for acute hypoxic respiratory failure with development of bilateral infiltrates in both chest. This could represent worsening pneumonia, especially MRSA pneumonia given that sputum culture is positive for this agent. Other possible differentials include COVID-19 pneumonia, though PCR and antigen were negative upon admission. Possibility of septic embolization from bacteremia remains a possibility, TTE negative for vegetations. Viral pneumonitis could present similarly, respiratory viral panel taken and remains pending. Patient has been started on steroids upon admission due to concern for poor respiratory status and noted wheezing on exam. Though I do not see any chronic steroids listed on her home medications, possibility of disseminated strongyloidosis needs to be considered, check strongyloidiasis antibody for the same. Unlikely to be pneumocystis pneumonitis as there were no infiltrates on day of admission, unlikely for the latter condition to develop within 3 days in a patient who has not otherwise been on long-term steroids and is HIV negative. Acute encephalopathy, resolved, present since admission, likely related to metabolic encephalopathy from sepsis. Cannot exclude possibility of bacterial meningitis. LP was unable to be performed in spite of attempts by miniature set builder and radiology, likely contributed by body habitus. CT head negative. No gross improvement with trial of acyclovir over 48 hours. Given otherwise evidence of ongoing bacterial infection, less likely that herpes encephalitis as a result of mental status changes. Acyclovir discontinued Non infectious differentials include status epilepticus versus opioid withdrawal. serum cryptococcal antigen pending check serum RPR HIV status negative Oral thrush: finished Fluconazole Patient has chronic back pain has been on opiate medications in the past, has been to multiple physicians to get opiate medications, the last refill she got was from a neurosurgeon, her urine has been positive for methamphetamines, I have compromised with patient, and started her on Ultram, I advised patient that I will not give her any other narcotic pain medications, can try topical solutions Generalized deconditioning and debilitated state, acute on chronic secondary to above. Acute metabolic encephalopathy secondary to infection and drugs. Withdrawal from drugs was suspected. Resolved. Currently stable. Acute respiratory failure. Resolved. Extubated. Appreciate Dr. Rosario's input. Thrush. Nystatin swish and swallow for additional 4 days. Anemia. Hemoglobin 8.7, Lovenox on hold, status post 1 unit PRBC, continue Protonix, Carafate Hypertension. Well-controlled. Continue current management. Diabetes. Insulin sliding scale. DVT prophylaxis. Lovenox on hold, SCDs The plan of care was discussed with the patient. She verbalized understanding and agreement. Attestations Medical Necessity Statement*: Patient requires hospitalization for MRSA infection, encephalopathy secondary opiate withdrawal, will be discharged tomorrow after last antibiotic therapy Coding Level of Care Code Acute [facility] for [facility] Fwd Diagnoses Sepsis A40.8; R65.20; G93.41 Sepsis type: Streptococcus, other Sepsis acute organ dysfunction status: with acute organ dysfunction Severe sepsis acute organ dysfunction type: encephalopathy Severe sepsis shock status: without septic shock Streptococcal bacteremia R78.81; B95.5 Thrush B37.0 Hypoxemia R09.02 Cellulitis L03.115 Site of cellulitis: extremity Site of cellulitis of extremity: lower extremity Laterality: right Acute encephalopathy G93.40 Diabetes mellitus, type II E11.618 Diabetes mellitus penitentiary insulin use: without long wall mining machine helper use Diabetes mellitus complication status: with diabetic arthropathy Diabetes mellitus complication detail: with other arthropathy
--- NOTE | 2021-01-11 15:24 | PC.OT ---
OT note: Attempted x2. First attempt pt requested OT come back later. When therapist arrived later in the afternoon pt was soundly sleeping. Will attempt again later as able.
[2021-01-11 17:07] LABS: Glucose Point of Care 185 mg/dL (70-110)
[2021-01-11 20:23] LABS: Glucose Point of Care 115 mg/dL (70-110)
[2021-01-12] VITALS (10 sets, daily range): BP systolic 120–147; BP diastolic 62–86; PULSE 78–108; RESP 16–22; TEMP 36–36.8; O2SAT 87–99
[2021-01-12] MEDS: TRAMadol 50 mg Tablet PO ×3 (01:16→15:12)
--- NOTE | 2021-01-12 01:18 | PC.NURSE ---
Patient c.o pain right and left legs and lower back, requested Dilaudid but agreed to take Tramadol when reminded Dilaudid had been discontinued Rates pain 8/10 at all locations.
[2021-01-12] MEDS: vancomycin 1,000 MG in sodium chloride 0.9% 250 ML 250 MG IV ×3 (02:15→17:15)
[2021-01-12] MEDS: acetaminophen 325 mg Tablet 650 MG PO ×2 (04:56→13:43)
[2021-01-12 05:47] LABS: Basophils % 0.4 %; Eosinophils # 0.1 10^3/uL (0.0-0.8); Eosinophils % 1.9 %; Hematocrit 30.8 % (37.0-47.0); Hemoglobin 9.1 g/dL (11.5-15.3); Lymphocytes % 19.2 %; Mean Corpuscular HGB Conc 29.5 g/dL (30.0-36.0); Mean Corpuscular Hemoglobin 30.5 pg (28.0-34.0); Mean Corpuscular Volume 103.4 fL (81-99); Mean Platelet Volume 9.2 fL (7.4-10.4); Monocytes # 0.5 10^3/uL (0.2-0.9); Monocytes % 8.4 %; Neutrophils # 3.74 10^3/uL (1.8-7.7); Neutrophils % 69.7 %; Nucleated Red Blood Cells % 0 %; Platelet Count 330 10^3/cmm (130-400); Red Blood Count 2.98 10^6/uL (4.1-5.3); Red Cell Distribution Width 18.6 % (12.1-15.1); White Blood Count 5.4 10^3/uL (4.0-10.0)
[2021-01-12] MEDS: sucralfate 1 gm Tablet PO ×3 (06:07→17:16)
[2021-01-12 06:11] LABS: Alanine Aminotransferase 8 U/L (0-33); Albumin Level 2.6 g/dL (3.5-5.2); Alkaline Phosphatase 86 IU/L (35-105); Anion Gap 9.3 (5-19); Aspartate Amino Transferase 8 U/L (0-32); Blood Urea Nitrogen 4 mg/dL (8-23); Calcium 8.7 mg/dL (8.5-10.5); Carbon Dioxide 32 mmol/L (22-29); Chloride 102 mmol/L (98-107); Globulin 3.4 g/dL (1.3-4.6); Glomerular Filtration Rate 362.3 mL/min (90-130); Glucose 103 mg/dL (65-115); Magnesium 1.6 mg/dL (1.7-2.3); Osmolality Calculated 287 mOsm/kg (285-295); Phosphorus 3.4 mg/dL (2.5-4.5); Potassium 3.3 mmol/L (3.5-5.1); Sodium 140 mmol/L (136-145); Total Bilirubin 0.5 mg/dL (0.15-1.2)
[2021-01-12 06:13] LABS: Glucose Point of Care 141 mg/dL (70-110)
--- NOTE | 2021-01-12 07:47 | PC.NURSE ---
Bedside report received from LEDY Alvarado and LEDY Lange.
[2021-01-12] MEDS: tizanidine 4 mg Tablet 2 MG PO ×2 (09:13→15:13)
[2021-01-12] MEDS: aspirin 81 mg EC Tablet PO (09:25)
[2021-01-12] MEDS: gabapentin 300 mg Capsule PO ×2 (09:25→15:13)
[2021-01-12] MEDS: escitalopram 10 mg Tablet PO (09:25)
[2021-01-12] MEDS: pantoprazole DR 40 mg Tablet PO ×2 (09:25→17:17)
[2021-01-12] MEDS: amlodipine 10 mg Tablet PO (09:26)
[2021-01-12] MEDS: nystatin powder 15 gm Btl 1 APPLIC TOPICAL ×2 (09:26→17:17)
[2021-01-12] MEDS: ipratropium-albuterol 3 mL Neb INHALATION ×2 (09:55→09:57)
[2021-01-12] MEDS: budesonide 0.5 mg/2 mL Neb INHALATION (09:56)
[2021-01-12] MEDS: nystatin 100,000 unit/mL UDC 5 mL 500000 UNIT PO ×3 (10:02→17:16)
[2021-01-12] MEDS: magnesium oxide 400 mg tablet PO ×2 (10:02→17:16)
[2021-01-12] MEDS: potassium chloride ER 20 mEq Tablet 40 MEQ PO (10:02)
--- NOTE | 2021-01-12 10:18 | P.DS_ITS ---
Discharge Providers Date of Admission: 12/27/20 05:51 Date of Discharge: January 12, 2021 Attending Provider at Admission: Alejandra Valencia MD Attending Provider at Discharge: Jose Tapia MD Primary Care Provider: Debbie Dietz DO Diagnoses at Discharge Discharge Diagnosis (1) Sepsis: Status: Acute Qualifiers: Sepsis type: Streptococcus, other Sepsis acute organ dysfunction status: with acute organ dysfunction Severe sepsis acute organ dysfunction type: encephalopathy Severe sepsis shock status: without septic shock Qualified Code(s): A40.8 - Other streptococcal sepsis; R65.20 - Severe sepsis without septic shock; G93.41 - Metabolic encephalopathy (2) Streptococcal bacteremia: Status: Acute (3) Thrush: Status: Acute (4) Hypoxemia: Status: Acute (5) Cellulitis: Status: Acute Qualifiers: Site of cellulitis: extremity Site of cellulitis of extremity: lower extremity Laterality: right Qualified Code(s): L03.115 - Cellulitis of right lower limb (6) Acute encephalopathy: Status: Acute (7) Diabetes mellitus, type II: Status: Chronic Qualifiers: Diabetes mellitus lobsterman insulin use: without chcf use Diabetes mellitus complication status: with diabetic arthropathy Diabetes mellitus complication detail: with other arthropathy Qualified Code(s): E11.618 - Type 2 diabetes mellitus with other diabetic arthropathy Reason for Visit Reason for Visit: [facility] Hospital Course Hospital Course This is a 60-year-old female with a past medical history of diastolic CHF, emphysema, history of methamphetamine use, on chronic opiate medications, history of cervical laminectomy syndrome, Iyoqbqi-Hbozx-Ojlcj disease, depression and anxiety, noninsulin-dependent type 2 diabetes mellitus, hypertension, hyperlipidemia, lumbar radiculopathy, history of lung cancer status post radiation therapy, who presents to [facility] due to altered mental status Patient was admitted to [facility] for altered mental status secondary to polysubstance abuse, narcotics and methamphetamines, opiates intoxication, and MRSA pneumonia and cellulitis requiring a 14-day total of inpatient antibiotic therapy which She completed For MRSA pneumonia and cellulitis, she received a total of 14 days of IV antibiotics as inpatient, discharged on 2021-01-12 after 14-day course, PICC line removed thereafter. Multiple attempts were made to place patient at a fdc, however this proved to be difficult given her history of opiate abuse and methamphetamine abuse, discharged home with home health care. For altered mental status she had an an extensive work-up including an infectious unremarkable imaging of the spine without any evidence of osteomyelitis discitis or epidural abscess. Multiple attempts were attempted on performing lumbar puncture which was unsuccessful. Covid testing was negative. Transthoracic echocardiogram was negative for vegetationS. Or all her inflammatory markers resolved. sHe remains afebrile on discharge, hemodynamically stable, alert oriented x3, white blood cell count of inflammatory markers have resolved. Patient developed acute respiratory failure during her hospital admission, likely secondary to MRSA pneumonia, polysubstance abuse, opiate intoxication. She was intubated, placed on the ventilator, sedated, eventually successfully weaned, moved out of the ICU, to the general medical floors, clinically did well. On discharge she is requiring 2 L of oxygen likely secondary to diastolic CHF. Discharged on Lasix 40 mg daily, with instructions to follow-up with primary care provider as outpatient to wean oxygen therapy. For patient's polysubstance abuse, has a history of methamphetamine use, she had Breached her pain contract with the pain clinic back in May for methamphetamine positivity in her urine, has not been seen since May, but according to patient she has been getting narcotic pain medications as recent as October from her neurosurgeon in [place]. She says that she was using oxycodone. She has chronic back pain, has had multiple neck and back surgeries. During her inpatient stay all her narcotic medications were stopped, she did developed opiate withdrawal, which was monitored as inpatient, no significant opiate withdrawal symptoms nearing 96 h before discharge. I have not discharged the patient on narcotic pain medications, and advised for her to stop any narcotic pain medicationS that she has at home. She can use Tylenol, her home tizanidine, gabapentin, topical icy hot patch. Patient did develop anemia during her hospitalization, requiring 1 unit PRBC, hemoglobin on discharge was 9.1, she was advised to avoid any NSAID medications, continue Protonix and Carafate, monitor for bloody or black stools, follow-up with general surgery in 1 month for consideration of EGD Physical Exam Const: COMMON NORMALS: no acute distress and patient oriented x3 HENMT: COMMON NORMALS: normocephalic HEAD & SCALP: normocephalic Neck/C-Spine: COMMON NORMALS: no JVD Resp: COMMON NORMALS: normal respiratory effort, No retractions, No use of accessory muscles and clear to auscultation bilaterally AUSCULTATION: clear to auscultation bilaterally Cardio: COMMON NORMALS: no JVD, regular rate, regular rhythm, S1 normal heart sound present and S2 normal heart sound present RATE: regular rate RHYTHM: regular rhythm HEART SOUNDS: S1 normal heart sound present and S2 normal heart sound present GI: COMMON NORMALS: Normal to inspection, nondistended, normoactive bowel sounds present, Soft to palpation, non-tender, No hepatosplenomegaly present, no masses and no bruits PALPATION: Yes Soft to palpation and Yes No hepatosplenomegaly present Extremity: COMMON NORMALS: capillary refill normal, no clubbing, cyanosis or edema, no calf tenderness and no pedal edema Neuro: COMMON NORMALS: patient oriented x3 Psych: COMMON NORMALS: mental status grossly normal Urinary Catheter Management^: Garber: Cath Placed During This Visit: yes Reason for Continuing Indwelling Catheter: Accurate Measurement of Urinary Output in Critically Ill Patients Urinary Catheter Date of Insertion: 12/27/20 Urinary Catheter Time of Insertion: 00:51 Discharge Data Data Completed and Pending: Completed Studies During Hospitalization Category Date Time Status CT abdomen pelvis w con* [id number] Urge nt Cat Scan 12/27/20 02:[address] angio chest PE protcl [id number] Urge nt Cat Scan 12/27/20 01:[address] angio headneck * [id number] Rout ine Cat Scan 12/30/20 09:[address] cervical spin wo con* [id number] Rout ine Cat Scan 12/30/20 09:[address] chest abd pel w con* Routine Cat Scan 12/30/20 09:[address] foot RT wo con * [id number] Urgent Cat Scan 12/27/20 02:[address] head wo con* 7 0450 Urgent Cat Scan 12/27/20 00:[address] lumbar spine w o con* 44048 Routi ne Cat Scan 12/30/20 09:[address] thoracic spin wo con* [id number] Rout ine Cat Scan 12/30/20 09:29 Completed XR chest 1V leslie ble 48460 Q48H Exams 12/30/20 06:00 Completed XR chest 1V leslie ble 62553 Q48H Exams 01/01/21 06:00 Completed XR chest 1V leslie ble 56690 Q48H Exams 01/03/21 06:00 Completed XR chest 1V leslie ble 35117 Routine Exams 12/28/20 09:28 Completed XR chest 1V leslie ble 95357 Routine Exams 12/29/20 05:48 Completed XR chest 1V leslie ble 45483 Stat Exams 12/27/20 00:35 Completed XR foot RT min 3V * [id number] Routine Exams 12/29/20 15:56 Completed XR knee LT 1-2V 7 3560 Routine Exams 12/28/20 15:54 Completed XR knee RT 1-2V 7 3560 Routine Exams 12/28/20 15:54 Completed Cytology [PTH] Ro utine Pth 12/29/20 16:02 Completed CV echo complete* [id number] Routine Ultrasound 01/01/21 16:21 Completed CV echo limited 9 3308 Routine Ultrasound 12/27/20 09:13 [place] [id number] Urgent Ultrasound 12/27/20 01:34 Completed Labs from last 24 hours 01/12/21 01/12/21 01/12/21 06:10 05:28 05:28 WBC 5.4 RBC 2.98 L Hgb 9.1 L Hct 30.8 L MCV 103.4 H MCH 30.5 MCHC 29.5 L RDW 18.6 H Plt Count 330 MPV 9.2 Neut % (Auto) 69.7 Lymph % (Auto) 19.2 [place] % (Auto) 8.4 Eos % (Auto) 1.9 Baso % (Auto) 0.4 Neut # (Auto) 3.74 Lymph # (Auto) 1.0 [place] # (Auto) 0.5 Eos # (Auto) 0.1 Baso # (Auto) 0.0 Nucleated RBC % (a uto) 0 Nucleated RBCs # 0.0 Sodium 140 Potassium 3.3 L Chloride 102 Carbon Dioxide 32 H Anion Gap 9.3 BUN 4 L Creatinine 0.2 L GFR Calculation 362.3 H Glucose 103 POC Glucose 141 H Calculated Osmolal ity 287 Calcium 8.7 Phosphorus 3.4 Magnesium 1.6 L Total Bilirubin 0.5 AST 8 ALT 8 Alkaline Phosphata se 86 Total Protein 6.0 L Albumin 2.6 L Globulin 3.4 01/11/21 01/11/21 01/11/21 20:18 17:03 11:38 WBC RBC Hgb Hct MCV MCH MCHC RDW Plt Count MPV Neut % (Auto) Lymph % (Auto) [place] % (Auto) Eos % (Auto) Baso % (Auto) Neut # (Auto) Lymph # (Auto) [place] # (Auto) Eos # (Auto) Baso # (Auto) Nucleated RBC % (a uto) Nucleated RBCs # Sodium Potassium Chloride Carbon Dioxide Anion Gap BUN Creatinine GFR Calculation Glucose POC Glucose 115 H 185 H 132 H Calculated Osmolal ity Calcium Phosphorus Magnesium Total Bilirubin AST ALT Alkaline Phosphata se Total Protein Albumin Globulin Vitals: Last Vital Signs Temp 98.3 F 01/12/21 08:00 Pulse 95 01/12/21 10:13 Resp 18 01/12/21 10:13 BP 132/72 01/12/21 08:00 Pulse Ox 96 01/12/21 10:13 Discharge Plan Discharge Patient Disposition: Home Health Service Condition: Stable Prescriptions: New acetaminophen 325 mg Tablet 650 mg PO Q6H PRN (Reason: Mild Pain) 30 Days Qty: 60 RF: 0 aspirin 81 mg Tablet,Delayed Release (Dr/Ec) 81 mg PO DAILY 30 Days Qty: 30 RF: 0 amlodipine 10 mg Tablet 10 mg PO DAILY 30 Days Qty: 30 RF: 0 sucralfate 1 gram Tablet 1 g PO AC&BEDTIME 30 Days Qty: 60 RF: 0 pantoprazole 40 mg Tablet,Delayed Release (Dr/Ec) 40 mg PO BID 30 Days Qty: 60 RF: 0 escitalopram oxalate 10 mg Tablet 10 mg PO DAILY 30 Days Qty: 30 RF: 0 Icy Hot (menthol) 5 % adhesive patch,medicated 1 patch topical DAILY PRN (Reason: pain) Qty: 5 RF: 0 Continued potassium chloride 20 mEq tablet extended release 20 meq PO DAILY RF: 0 gabapentin 300 mg capsule 300 mg PO BID RF: 0 metformin 1,000 mg tablet 1,000 mg PO BID RF: 0 fenofibrate micronized 200 mg capsule 200 mg PO BEDTIME RF: 0 cholecalciferol (vitamin D3) 1,250 mcg (50,000 unit) capsule 1,250 mcg PO Q7D RF: 0 calcium carbonate 500 mg calcium (1,250 mg) tablet 500 mg PO BID RF: 0 tizanidine 4 mg tablet 4 mg PO TID MDD 3 PRN (Reason: muscle spasticity) Qty: 60 RF: 0 albuterol sulfate 90 mcg/actuation Hfa Aerosol Inhaler 1 puff INHALATION QID PRN (Reason: Shortness Of Breath) RF: 0 Lasix 40 mg tablet 40 mg PO DAILY Qty: 0 RF: 0 Changed lisinopril 40 mg tablet 20 mg PO DAILY 30 Days Qty: 15 RF: 0 Discontinued atenolol 100 mg tablet 100 mg PO BID RF: 0 clonidine HCl 0.1 mg tablet 0.1 mg PO BID RF: 0 aspirin 325 mg tablet 325 mg PO BID RF: 0 venlafaxine [Effexor XR] 75 mg capsule,extended release 24hr 75 mg PO TID RF: 0 prochlorperazine maleate [Compazine] 10 mg tablet 10 mg PO DAILY PRN (Reason: Nausea) RF: 0 oxycodone-acetaminophen 10-325 mg tablet 1 tab PO TID MDD 3 PRN (Reason: chronic pain) 30 Days Qty: 75 RF: 0 buspirone 5 mg Tablet 5 mg PO TID PRN (Reason: Anxiety) RF: 0 baclofen 20 mg Tablet 20 mg PO DAILY RF: 0 Discharge Orders: Discharge Order (Routine); Ordered 01/12/21 Ordered By: Jose Tapia Other Ambulatory Orders: Complete Blood Count w/Auto (Routine) Timeframe: 1 Week Location: Determined by Patient Ordered By: Jose Tapia DME: Oxygen (Order) Location: None Selected Ordered By: Jose Tapia Referrals: Alejandra Delgado MD [Physician] - 02/01/21 1:15 pm Lucio Dash MD [Physician] - 02/08/21 1:45 pm (egd for anemia) Radha Miguel FNP [Referring] - 01/19/21 9:00 am Discharge Diet: Cardiac Discharge Activity: Resume usual activity Patient Instructions: Sucralfate (By mouth), Acetaminophen (By mouth), Aspirin (By mouth), Amlodipine (By mouth), Pantoprazole (By mouth), Escitalopram (By mouth), Menthol/Methyl Salicylate (On the skin), Methamphetamine Abuse (GEN), Using Oxygen at Home Activity Restrictions/Additional Instructions: -I have stopped your blood pressure medications including atenolol, clonidine as her blood pressures have been on the lower end during her hospitalization, follow-up with primary care provider for blood pressure check and reinstitution of your blood pressure medications if required -Please stop any narcotic pain medications -Please stop any drug use -We have stopped her Effexor, and switched you over to Lexapro -Follow-up with [facility] within a few weeks -For your anemia, avoid ibuprofen, follow-up with general surgery in 1 month for consideration of EGD -Follow with with primary care in 1 week for recheck CBC -I have discharged on 2 L oxygen, wean as tolerated by primary care Discharge Attestations Time Spent in Discharge Care*: greater than 30 min Quality Metrics Clinical Quality Measures During this hospital stay, did patient experience: None Coding Level of Care Code Acute Director Of Child Welfare Services for [facility] Diagnoses Sepsis A40.8; R65.20; G93.41 Sepsis type: Streptococcus, other Sepsis acute organ dysfunction status: with acute organ dysfunction Severe sepsis acute organ dysfunction type: encephalopathy Severe sepsis shock status: without septic shock Streptococcal bacteremia R78.81; B95.5 Thrush B37.0 Hypoxemia R09.02 Cellulitis L03.115 Site of cellulitis: extremity Site of cellulitis of extremity: lower extremity Laterality: right Acute encephalopathy G93.40 Diabetes mellitus, type II E11.618 Diabetes mellitus lobsterman insulin use: without lobsterman use Diabetes mellitus complication status: with diabetic arthropathy Diabetes mellitus complication detail: with other arthropathy
[2021-01-12] MEDS: FUROsemide 10 mg/mL SDV 4mL 40 MG IVP (10:56)
[2021-01-12 11:00] LABS: Glucose Point of Care 118 mg/dL (70-110)
--- NOTE | 2021-01-12 16:21 | PM.PN ---
Subjective Subjective: Interval history: Ms. Snyder seen bedside this morning, she is wearing her PODUS boots. Denies any acute events overnight. Her is bedside, they are hopeful for discharge today. Patient denies any subjective nausea, vomiting, fever, chills, shortness of breath or chest pain. Vitals/I&O/Wt Last Vital Signs Temp 96.8 F L 01/12/21 15:26 Pulse 82 01/12/21 15:37 Resp 16 01/12/21 15:37 BP 120/67 01/12/21 15:26 Pulse Ox 92 01/12/21 15:37 01/12/21 01/12/21 01/12/21 06:59 14:59 22:59 Intake Total 250 / 1580 600 / 600 Output Total 350 / 350 Balance -100 / 1230 600 / 600 Physical Exam Narrative: EXAM NARRATIVE: Patient is alert and oriented ?3 and in no acute distress. The following is a focused bilateral lower extremity exam. VASCULAR: Dorsalis pedis and posterior tibial arteries faintly palpable, palpable popliteal artery bilaterally. Capillary refill time less than 5 seconds to the distal hallux bilaterally. Calf is supple and nontender proximally and distally. Diminished growth pitting edema to the bilateral lower extremities, right greater than left. NEUROLOGICAL: Not tested. DERMATOLOGICAL: Wound to the right medial midfoot corresponding to the talar head, does not probe to bone, no tunneling or undermining. There is no purulence from the wound. Granular base with epithelialized margin, wound measures 2.0 cm x 2.1 cm x 0.2 cm. Arriaza grade 1 wounds to bilateral heels, no fluctuance, no erythema or drainage, mild ecchymosis. Limited to breakdown of skin. MUSCULOSKELETAL: Nonreducible Charcot deformity of the right foot with prominent talar head medially. Spastic contracture with flexion at bilateral knee. Reducible hammertoe contracture 2 through 5 bilaterally. Urinary Catheter Management^: Garber: Cath Placed During This Visit: yes Reason for Continuing Indwelling Catheter: Accurate Measurement of Urinary Output in Critically Ill Patients Urinary Catheter Date of Insertion: 12/27/20 Urinary Catheter Time of Insertion: 00:51 Data : 01/12/21 05:28 01/12/21 05:28 A&P Assessment and plan (1) Cellulitis: Status: Resolved Qualifiers: Site of cellulitis: extremity Site of cellulitis of extremity: lower extremity Laterality: right Qualified Code(s): L03.115 - Cellulitis of right lower limb (2) Methamphetamine use: Status: Chronic (3) Diabetes mellitus, type II: Status: Chronic Qualifiers: Diabetes mellitus skilled nursing insulin use: without skilled nursing use Diabetes mellitus complication status: with diabetic arthropathy Diabetes mellitus complication detail: with other arthropathy Qualified Code(s): E11.618 - Type 2 diabetes mellitus with other diabetic arthropathy (4) Oejrjph-Cbyjt-Ycocv disease-like deformity of foot: Status: Chronic (5) Uses wheelchair: Status: Chronic 60-year-old diabetic female currently intubated, cellulitis to right lower extremity with diabetic foot ulcerations at Charcot deformity. Right midfoot wound appears stable, has chronic appearance. Right foot wound appears stable. CT scan negative for osteomyelitis, x-ray also negative for osteomyelitis. Charcot arthropathy most involved at the talonavicular joint, appears to have stable appearance with remodeling. Does not have acute Charcot characteristics with imaging or clinically. Right foot is in stage III/chronic Charcot foot. Improved granulation tissue at the right foot wound, remains clinically stable, skin lines at the lower extremities indicative of improved edema. No plans for surgical intervention at this time from a podiatry standpoint. Wound culture negative growth at day 3, Gram stain negative for organisms. Wound biopsy resulted actinic keratosis. Right foot wound remains stable, will continue with local wound care, Hydrofera Blue daily. Bilateral heel wound limited to breakdown of skin is clinically stable, no fluctuance or drainage, no surrounding erythema or warmth. Arriaza grade 1 showing improvement utilizing PODUS boots. Recommend wound care follow-up at discharge. Attestations Medical Necessity Statement*: Charcot arthropathy, diabetic foot ulcer Coding Level of Care Code Acute Gas System Operator for [facility] Diagnoses Cellulitis L03.115 Site of cellulitis: extremity Site of cellulitis of extremity: lower extremity Laterality: right Methamphetamine use F15.10 Diabetes mellitus, type II E11.618 Diabetes mellitus skilled nursing insulin use: without skilled nursing use Diabetes mellitus complication status: with diabetic arthropathy Diabetes mellitus complication detail: with other arthropathy Hpodjgk-Gzpnk-Ctnso disease-like deformity of foot G60.0 Uses wheelchair Z99.3
[2021-01-12 16:46] LABS: Glucose Point of Care 194 mg/dL (70-110)
--- NOTE | 2021-01-12 18:55 | PC.NURSE ---
Pt's verbalized earlier in the day that they would have transportation upon discharge. After discharge papers were given to pt, pt's called [facility] for a ride. He was informed they would need a trip number from [facility]. This nurse was notified of this and the process to set up transportation was initiated.
== END 2021-01-12 19:25 | disposition home health service (06) | DRG 870 ==
LOC: ER 00:34 → ICU 06:44 → MEDSURG 01-07 17:41
PROVIDERS: Internal Medicine; Student in an Organized Health Care Education/Training Program; Admitting Provider Hospitalist; Emergency Provider Family Medicine; PCP Family Medicine; Visit Provider Family Medicine
DX: A41.9 Sepsis, unspecified organism (principal); G92 Toxic encephalopathy; J96.01 Acute respiratory failure with hypoxia; J15.212 Pneumonia due to Methicillin resistant Staphylococcus aureus; J69.0 Pneumonitis due to inhalation of food and vomit; L03.116 Cellulitis of left lower limb; L03.115 Cellulitis of right lower limb; E87.1 Hypo-osmolality and hyponatremia; F15.13 Other stimulant abuse with withdrawal; F11.13 Opioid abuse with withdrawal; B37.0 Candidal stomatitis; L97.419 Non-pressure chronic ulcer of right heel and midfoot with unspecified severity; I50.32 Chronic diastolic (congestive) heart failure; C34.12 Malignant neoplasm of upper lobe, left bronchus or lung; R65.20 Severe sepsis without septic shock; D64.9 Anemia, unspecified; E11.40 Type 2 diabetes mellitus with diabetic neuropathy, unspecified; E11.610 Type 2 diabetes mellitus with diabetic neuropathic arthropathy; E11.65 Type 2 diabetes mellitus with hyperglycemia; E83.42 Hypomagnesemia; Z98.1 Arthrodesis status; Z96.651 Presence of right artificial knee joint; G60.0 Hereditary motor and sensory neuropathy; G89.29 Other chronic pain; F41.8 Other specified anxiety disorders; Z86.718 Personal history of other venous thrombosis and embolism; E78.5 Hyperlipidemia, unspecified; M54.16 Radiculopathy, lumbar region; Z79.51 Long term (current) use of inhaled steroids; Z79.84 Long term (current) use of oral hypoglycemic drugs; J43.9 Emphysema, unspecified; Z92.3 Personal history of irradiation; Z99.3 Dependence on wheelchair; L89.621 Pressure ulcer of left heel, stage 1; L89.611 Pressure ulcer of right heel, stage 1; L57.0 Actinic keratosis; E78.1 Pure hyperglyceridemia; E11.621 Type 2 diabetes mellitus with foot ulcer; E66.9 Obesity, unspecified; Z68.34 Body mass index [BMI] 34.0-34.9, adult; M25.562 Pain in left knee; M25.561 Pain in right knee; I11.0 Hypertensive heart disease with heart failure; B35.4 Tinea corporis; M43.6 Torticollis
CPT/HCPCS: 12345; 36415; 36416; 36430; 36600; 51702; 70450; 70496; 70498; 71045; 71260; 71275; 72125; 72128; 72131; 73560; 73630; 73700; 74177; 80048; 80051; 80053; 80061; 80069; 80202; 80306; 80307; 81001; 82140; 82330; 82436; 82550; 82607; 82728; 82746; 82805; 82962; 83036; 83540; 83550; 83605; 83721; 83735; 83880; 84100; 84133; 84145; 84300; 84443; 84484; 85007; 85014; 85018; 85025; 85378; 85610; 86140; 86592; 86682; 86705; 86706; 86709; 86803; 86850; 86900; 86920; 87040; 87070; 87075; 87077; 87086; 87186; 87205; 87327; 87340; 87426; 87449; 87635; 87641; 87806; 88304; 93005; 93306; 93308; 93971; 94002; 94003; 94640; 94799; 96372; 97110; 97162; 97167; 97530; 97535; 99283; A4570; J0131; J0133; J0330; J0692; J0696; J0743; J1170; J1630; J1650; J1756; J1815; J1940; J1956; J2060; J2250; J2270; J2310; J2543; J2704; J2920; J3010; J3370; J3475; J3480; J3490; J7030; J7050; J7626; P9040; Q9967

== ENCOUNTER 2021-01-20 14:14 | Outpatient (CLI) | payer MEDICARE, MEDICAID, SELFPAY | END 2021-01-20 14:15 | disposition home or self-care (01) | LOC: WOUND 14:15 | PROVIDERS: PCP Family Medicine; Visit Provider Surgery | DX: E11.621 Type 2 diabetes mellitus with foot ulcer (principal); L97.512 Non-pressure chronic ulcer of other part of right foot with fat layer exposed; L97.419 Non-pressure chronic ulcer of right heel and midfoot with unspecified severity; L97.429 Non-pressure chronic ulcer of left heel and midfoot with unspecified severity | CPT/HCPCS: 11042; G0463; L3260 ==

== ENCOUNTER → 2021-02-01 12:46 | Outpatient (BNVA) | payer MEDICARE, MEDICAID, SELFPAY | PROVIDERS: PCP Family Medicine; Referring Provider Family Medicine; Visit Provider Specialist | DX: E11.40 Type 2 diabetes mellitus with diabetic neuropathy, unspecified (principal); Z79.84 Long term (current) use of oral hypoglycemic drugs; F15.10 Other stimulant abuse, uncomplicated; M48.061 Spinal stenosis, lumbar region without neurogenic claudication; M96.1 Postlaminectomy syndrome, not elsewhere classified; G31.84 Mild cognitive impairment of uncertain or unknown etiology; F17.210 Nicotine dependence, cigarettes, uncomplicated | CPT/HCPCS: 96116; 99205 ==

== ENCOUNTER 2021-02-03 15:01 | Outpatient (CLI) | payer MEDICARE, MEDICAID, SELFPAY | END 2021-02-03 15:02 | disposition home or self-care (01) | LOC: WOUND 15:02 | PROVIDERS: PCP Family Medicine; Visit Provider Nurse Practitioner Family | DX: E11.621 Type 2 diabetes mellitus with foot ulcer (principal); L97.512 Non-pressure chronic ulcer of other part of right foot with fat layer exposed; L97.419 Non-pressure chronic ulcer of right heel and midfoot with unspecified severity; L97.429 Non-pressure chronic ulcer of left heel and midfoot with unspecified severity | CPT/HCPCS: 11042 ==

== ENCOUNTER 2021-02-10 15:33 | Outpatient (CLI) | payer MEDICARE, MEDICAID, SELFPAY | END 2021-02-10 15:34 | disposition home or self-care (01) | LOC: WOUND 15:34 | PROVIDERS: PCP Family Medicine; Visit Provider Surgery | DX: E11.621 Type 2 diabetes mellitus with foot ulcer (principal); L97.512 Non-pressure chronic ulcer of other part of right foot with fat layer exposed; L97.419 Non-pressure chronic ulcer of right heel and midfoot with unspecified severity; L89.312 Pressure ulcer of right buttock, stage 2; L98.491 Non-pressure chronic ulcer of skin of other sites limited to breakdown of skin | CPT/HCPCS: 11042; 11043 ==

== ENCOUNTER 2021-02-17 14:31 | Outpatient (CLI) | payer MEDICARE, MEDICAID, SELFPAY | END 2021-02-17 14:32 | disposition home or self-care (01) | LOC: WOUND 14:33 | PROVIDERS: PCP Family Medicine; Visit Provider Surgery | DX: E11.621 Type 2 diabetes mellitus with foot ulcer (principal); L97.512 Non-pressure chronic ulcer of other part of right foot with fat layer exposed; L97.419 Non-pressure chronic ulcer of right heel and midfoot with unspecified severity; L98.492 Non-pressure chronic ulcer of skin of other sites with fat layer exposed; L89.312 Pressure ulcer of right buttock, stage 2 | CPT/HCPCS: 11042 ==

== ENCOUNTER 2021-02-24 13:43 | Outpatient (CLI) | payer MEDICARE, MEDICAID, SELFPAY | END 2021-02-24 13:44 | disposition home or self-care (01) | LOC: WOUND 13:44 | PROVIDERS: PCP Family Medicine; Visit Provider Surgery | DX: L98.492 Non-pressure chronic ulcer of skin of other sites with fat layer exposed (principal); E11.621 Type 2 diabetes mellitus with foot ulcer; L97.512 Non-pressure chronic ulcer of other part of right foot with fat layer exposed; L89.610 Pressure ulcer of right heel, unstageable; L89.310 Pressure ulcer of right buttock, unstageable | CPT/HCPCS: 11042; 11045 ==

== ENCOUNTER 2021-03-03 14:35 | Outpatient (CLI) | payer MEDICARE, MEDICAID, SELFPAY | END 2021-03-03 14:36 | disposition home or self-care (01) | LOC: WOUND 14:38 | PROVIDERS: PCP Family Medicine; Visit Provider Surgery | DX: E11.621 Type 2 diabetes mellitus with foot ulcer (principal); L97.512 Non-pressure chronic ulcer of other part of right foot with fat layer exposed; L89.614 Pressure ulcer of right heel, stage 4; L89.312 Pressure ulcer of right buttock, stage 2 | CPT/HCPCS: 11042; 11043 ==

== ENCOUNTER 2021-03-10 18:30 | Inpatient (IN) | payer MEDICARE, MEDICAID, SELFPAY ==
[2021-03-10] VITALS (7 sets, daily range): BP systolic 101–213; BP diastolic 36–96; PULSE 81–88; RESP 16–26; TEMP 36.8; O2SAT 92–98; BMI 29.0
--- NOTE | 2021-03-10 19:01 | XRR_ITS ---
PROCEDURE INFORMATION: Exam: XR Chest Exam date and time: 03/10/2021 7:09 PM Age: 61 years old Clinical indication: Other: AMS; Additional info: Altered mental status TECHNIQUE: Imaging protocol: XR of the chest. Views: 1 view. COMPARISON: CR XR chest 1V portable [id number] 01/03/2021 6:39 AM FINDINGS: Lungs: Coarsened reticular interstitial lung changes similar to prior imaging. No focal pulmonary consolidation. No significant central pulmonary vascular dilation. Pleural spaces: Unremarkable. No pleural effusion. No pneumothorax. Heart/Mediastinum: Moderate cardiac enlargement. Diaphragm: Asymmetric elevation of the right diaphragm. Bones/joints: Extensive surgical hardware fixates cervical spine both anteriorly and posteriorly. XR/XR chest 1V portable [id number] IMPRESSION: No focal acute pulmonary disease identified.
--- NOTE | 2021-03-10 19:04 | ECG_ITS ---
[facility] Test Date: 2021-03-10 Pat Name: Polina Snyder Department: Room: Gender: Female Coordinator Hotels: : 1960 Requested By: Jose Angel Moreno Order Number: [id number] Rosalba MD: Dora Rodríguez M.D. Measurements Intervals [place] Rate: 88 P: 54 IA: 147 QRS: 17 QRSD: 93 T: 91 QT: 355 QTc: 430 Interpretive Statements SINUS RHYTHM POSSIBLE LEFT ATRIAL ENLARGEMENT [-0.1mV P WAVE IN V1/V2] NONSPECIFIC T-WAVE ABNORMALITY Compared to ECG 12/29/2020 13:55:43 Possible ischemia no longer present T-wave abnormality still present Electronically Signed On 03-11-2021 5:14:19 CDT by Dora Rodríguez M.D. [id number]
--- NOTE | 2021-03-10 19:06 | XRR_ITS ---
PROCEDURE INFORMATION: Exam: XR Right Foot Exam date and time: 03/10/2021 7:09 PM Age: 61 years old Clinical indication: Edema and swelling, leg or foot; No, it is generalized; Patient HX: Right lower leg and foot swelling, redness, tender, hot; Additional info: R foot swelling TECHNIQUE: Imaging protocol: XR Right foot. Views: 3 or more views. COMPARISON: CR XR foot RT min 3V* [id number] 12/29/2020 4:17 PM FINDINGS: Bones/joints: Diffuse osseous demineralization changes. No acute fractures. Moderate hallux valgus deformity. Large bunion of the medial distal 1st metatarsal bone. Collapse of the midfoot arch with severe DJD across the midfoot. Severe hindfoot valgus deformity. Large circumscribed cystic lesion in the anterior talus noted similar to prior. Soft tissues: Diffuse soft tissue swelling. Soft tissue swelling is increased from prior. XR/XR foot RT min 3V* [id number] IMPRESSION: 1. Increased soft tissue swelling of the right foot. 2. No change in osseous structures. Suspected severe Charcot arthropathy changes with collapse of the midfoot.
[2021-03-10 19:36] LABS: ABG PCO2 43.9 mmHg (35-45); ABG PH Result 7.44 (7.35-7.45); Base Excess ABG 5.1 mmol/L (-2.0-2.0); Blood Gas Sample Site Brachial, right; Blood Gas Sample Type Arterial; HCO3 ABG 29.9 mmol/L (22-26); Oxygen Device NC; PO2 ABG 53.9 mmHg (80.0-100.0)
--- NOTE | 2021-03-10 19:39 | W.ED.EXTPRO ---
HPI - Extremity Problem General: Chief complaint: Extremity Problem,Nontraumatic Stated complaint: CELLULITIS Time Seen by Provider: 03/10/21 18:44 History of Present Illness: HPI Narrative: 61-year-old female. She presents with worsening swelling and redness with warmth to her right lower extremity. Had cellulitis of this extremity before. She has a chronic Charcot foot deformity. She says that she is noticed this increase for a couple of days . she is a bit sleepy on exam, and a poor historian. MD Complaint: extremity pain and extremity swelling Onset (ago): day(s) Pain Consistency: constant Location: right and lower extremity Quality: burning and aching Radiation: none Relieving factors: nothing Exacerbating factors: range of motion Associated symptoms: Reports fever(s) and rash; Deny chest pain Context: immobilization (She is bedridden by history) Review of Systems Const: Reports: fever(s) Eyes: Denies: change in vision Card: Reports: edema and swelling of feet/ankles; Denies: chest pain or palpitations Resp: Reports: dyspnea; Denies: productive cough or non-productive cough GI: Denies: abdominal pain, nausea or vomiting : Denies: difficulty voiding or dysuria Skin/Breast: Reports: rash, erythema, skin tenderness and changing lesions Neuro: Reports: sensory changes; Denies: headache(s) PFS ED PFSH: Medical History Cervical post-laminectomy syndrome Sokbynd-Gqcot-Rdpti disease-like deformity of foot right Chronic pain Depression with anxiety Diabetes mellitus, type II History of cardioversion history of SVT vs for other arrhythmia History of DVT of lower extremity post-operative Hyperlipidemia Hypertension Lumbar radiculopathy Lung cancer according to pain clinic notes, managed at [place], underwent radiation therapy in 2019 Torticollis, acquired Has had good results with Botox in the past Surgical History History of arthroplasty of left knee (~1976) History of partial hysterectomy Hx of appendectomy Hx of dilation and curettage Hx of neck surgery x 2, posterior laminectomy and cervical fusion with hardware in place, limited ROM neck at baseline Hx of total knee replacement (~2010) Right Hx of tubal ligation Family History Family/Other Hypertension Depression Anxiety Diabetes Father Aneurysm Mother Hypertension Brother Diabetes Sister Diabetes Social History Smoking and tobacco status: current some day smoker Alcohol intake: never Marital status: History of recent travel: No Additional social history: unknown if patient continues to smoke, documented to smoke previously Physical Exam Const: COMMON NORMALS: no acute distress EXAM LIMITATIONS: altered mental status GENERAL APPEARANCE: lethargic NUTRITIONAL APPEARANCE: obese ORIENTATION/CONSCIOUSNESS: Yes oriented to person, Yes oriented to place and Yes lethargic; not oriented to time HENMT: COMMON NORMALS: normocephalic HEAD & SCALP: normocephalic Chest: COMMONS NORMALS: normal inspection of the chest Resp: COMMON NORMALS: normal respiratory effort, No use of accessory muscles and clear to auscultation bilaterally AUSCULTATION: clear to auscultation bilaterally Cardio: COMMON NORMALS: regular rate and regular rhythm RATE: regular rate RHYTHM: regular rhythm Neuro: SENSORIUM/ORIENTATION: Yes oriented to person, Yes oriented to place, No oriented to time and Yes lethargic Skin: LESIONS: lesion noted RASHES: rashes noted OTHER: Right lower extremity reveals chronic Charcot foot deformity. There are 2 ulcerations on the medial heel, they have rolled borders, do look chronic, but have beefy erythema and swelling surrounding them. They are chronic skin changes of vascular insufficiency noted. There is beefy erythema and swelling to just inferior to the knee with a pretty clear demarcation. It is extremely warm to touch. Capillary refill, is not delayed the left lower extremity reveals similar changes of vascular insufficiency with skin thickening. There is less significant erythema of the lower third of the leg to the foot, with less warmth. Course Consultations: Consultation #1: fer Vital Signs: Vital signs: Vital Signs Temperature 99.6 F 03/11/21 04:00 Pulse Rate 79 03/11/21 04:00 Respiratory Rate 18 03/11/21 04:00 Blood Pressure 96/60 03/11/21 04:00 Pulse Oximetry 94 03/11/21 04:00 MDM - Extremity (Nontraumatic) MDM Narrative: Medical decision making narrative: 61-year-old diabetic with a beefy, erythematous and swollen right lower extremity. It is quite warm. Her white blood cell count is 18.6. Her CRP is 275 her other laboratory appears benign, including her lactate. Blood cultures are drawn. She is started on vancomycin. She has a history of Streptococcus sepsis with MRSA pneumonia. Her chest x-ray is negative. Her foot x-ray does not show signs of osteomyelitis. Lab Data: Labs: Lab Results 03/10/21 03/10/21 03/10/21 Range/Units 19:25 19:33 19:33 WBC 18.6 H (4.0-10.0) 10^3/ uL RBC 4.15 (4.1-5.3) 10^6/u L Hgb 13.0 (11.5-15.3) g/dL Hct 41.8 (37.0-47.0) % MCV 100.7 H (81-99) fL MCH 31.3 (28.0-34.0) pg MCHC 31.1 (30.0-36.0) g/dL RDW 14.5 (12.1-15.1) % Plt Count 295 (130-400) 10^3/c mm MPV 10.4 (7.4-10.4) fL Neut % (Auto) 93.2 % Lymph % (Auto) 3.5 % [place] % (Auto) 2.4 % Eos % (Auto) 0.1 % Baso % (Auto) 0.4 % Neut # (Auto) 17.36 H (1.8-7.7) 10^3/u L Lymph # (Auto) 0.7 L (0.8-4.8) 10^3/u L [place] # (Auto) 0.5 (0.2-0.9) 10^3/u L Eos # (Auto) 0.0 (0.0-0.8) 10^3/u L Baso # (Auto) 0.1 (0.0-0.1) 10^3/u L Nucleated RBC % (a uto) 0 % Nucleated RBCs # 0.0 /100WBC ESR 60 H (0-15) mm/hr Specimen Type Arterial Sample Site Brachial, right ABG pH 7.44 (7.35-7.45) ABG pCO2 43.9 (35-45) mmHg ABG pO2 53.9 L (80.0-100.0) mmH g ABG HCO3 29.9 H (22-26) mmol/L ABG Base Excess 5.1 H (-2.0-2.0) mmol/ L Abdoulaye Test N/a Hematocrit 38.0 (37-47) % O2 Delivery Device Nc O2 Liters/Min 1.0 % FiO2 26.0 % Cargo Services Coordinator ID [id number] Sodium (136-145) mmol/L Potassium (3.5-5.1) mmol/L Chloride (98-107) mmol/L Carbon Dioxide (22-29) mmol/L Anion Gap (5-19) BUN (8-23) mg/dL Creatinine (0.5-0.9) mg/dL GFR Calculation (90-130) mL/min Glucose (65-115) mg/dL Calculated Osmolal ity (285-295) mOsm/k g Lactate (0.5-2.2) mmol/L Calcium (8.5-10.5) mg/dL Total Bilirubin (0.15-1.2) mg/dL AST (0-32) U/L ALT (0-33) U/L Alkaline Phosphata se (35-105) IU/L C-Reactive Protein (0.0-4.9) mg/L Total Protein (6.6-8.7) g/dL Albumin (3.5-5.2) g/dL Globulin (1.3-4.6) g/dL Urine Color (Yellow) Urine Appearance (CLEAR) Urine pH (5-7) Ur Specific Gravit y (1.005-1.030) Urine Protein (Negative) Urine Glucose (UA) (Normal) Urine Ketones (Negative) Urine Blood (Negative) Urine Nitrate (Negative) Urine Bilirubin (Negative) Urine Urobilinogen (Negative) mg/dL Ur Leukocyte Maria C ase (Negative) 03/10/21 03/10/21 03/10/21 Range/Units 19:33 19:33 20:04 WBC (4.0-10.0) 10^3/ uL RBC (4.1-5.3) 10^6/u L Hgb (11.5-15.3) g/dL Hct (37.0-47.0) % MCV (81-99) fL MCH (28.0-34.0) pg MCHC (30.0-36.0) g/dL RDW (12.1-15.1) % Plt Count (130-400) 10^3/c mm MPV (7.4-10.4) fL Neut % (Auto) % Lymph % (Auto) % [place] % (Auto) % Eos % (Auto) % Baso % (Auto) % Neut # (Auto) (1.8-7.7) 10^3/u L Lymph # (Auto) (0.8-4.8) 10^3/u L [place] # (Auto) (0.2-0.9) 10^3/u L Eos # (Auto) (0.0-0.8) 10^3/u L Baso # (Auto) (0.0-0.1) 10^3/u L Nucleated RBC % (a uto) % Nucleated RBCs # /100WBC ESR (0-15) mm/hr Specimen Type Sample Site ABG pH (7.35-7.45) ABG pCO2 (35-45) mmHg ABG pO2 (80.0-100.0) mmH g ABG HCO3 (22-26) mmol/L ABG Base Excess (-2.0-2.0) mmol/ L Abdoulaye Test Hematocrit (37-47) % O2 Delivery Device O2 Liters/Min % FiO2 % Cargo Services Coordinator ID Sodium 133 L (136-145) mmol/L Potassium 3.8 (3.5-5.1) mmol/L Chloride 92 L (98-107) mmol/L Carbon Dioxide 28 (22-29) mmol/L Anion Gap 16.8 (5-19) BUN 10 (8-23) mg/dL Creatinine 0.3 L (0.5-0.9) mg/dL GFR Calculation 226.2 H (90-130) mL/min Glucose 112 (65-115) mg/dL Calculated Osmolal ity 276 L (285-295) mOsm/k g Lactate 1.9 (0.5-2.2) mmol/L Calcium 9.1 (8.5-10.5) mg/dL Total Bilirubin 0.5 (0.15-1.2) mg/dL AST 17 (0-32) U/L ALT 10 (0-33) U/L Alkaline Phosphata se 77 (35-105) IU/L C-Reactive Protein 275.4 H (0.0-4.9) mg/L Total Protein 7.6 (6.6-8.7) g/dL Albumin 3.8 (3.5-5.2) g/dL Globulin 3.8 (1.3-4.6) g/dL Urine Color Yellow (Yellow) Urine Appearance Clear (CLEAR) Urine pH 7 (5-7) Ur Specific Gravit y 1.010 (1.005-1.030) Urine Protein Neg (Negative) Urine Glucose (UA) Norm (Normal) Urine Ketones Negative (Negative) Urine Blood Neg (Negative) Urine Nitrate Negative (Negative) Urine Bilirubin Neg (Negative) Urine Urobilinogen 1 H (Negative) mg/dL Ur Leukocyte Maria C ase Negative (Negative) Discharge Plan Discharge Patient Disposition: Admitted As Inpatient Admit Provider: Luis Alberto Perez Clinical Impression: Cellulitis Qualifiers: Site of cellulitis: extremity Site of cellulitis of extremity: lower extremity Laterality: right Qualified Code(s): L03.115 - Cellulitis of right lower limb Condition: Stable Coding Level of Care Code ED Family Practice Medical Doctor for [facility] Fwd Exam Detailed
[2021-03-10 19:42] LABS: Basophils # 0.1 10^3/uL (0.0-0.1); Basophils % 0.4 %; Eosinophils % 0.1 %; Hematocrit 41.8 % (37.0-47.0); Lymphocytes # 0.7 10^3/uL (0.8-4.8); Lymphocytes % 3.5 %; Mean Corpuscular HGB Conc 31.1 g/dL (30.0-36.0); Mean Corpuscular Hemoglobin 31.3 pg (28.0-34.0); Mean Corpuscular Volume 100.7 fL (81-99); Mean Platelet Volume 10.4 fL (7.4-10.4); Monocytes # 0.5 10^3/uL (0.2-0.9); Monocytes % 2.4 %; Neutrophils # 17.36 10^3/uL (1.8-7.7); Neutrophils % 93.2 %; Nucleated Red Blood Cells % 0 %; Platelet Count 295 10^3/cmm (130-400); Red Blood Count 4.15 10^6/uL (4.1-5.3); Red Cell Distribution Width 14.5 % (12.1-15.1); White Blood Count 18.6 10^3/uL (4.0-10.0)
[2021-03-10] MEDS: sodium chloride 0.9% 1,000 ML 999 ML IV (19:56)
[2021-03-10 20:00] LABS: Alanine Aminotransferase 10 U/L (0-33); Albumin Level 3.8 g/dL (3.5-5.2); Alkaline Phosphatase 77 IU/L (35-105); Blood Urea Nitrogen 10 mg/dL (8-23); C Reactive Protein 275.4 mg/L (0.0-4.9); Calcium 9.1 mg/dL (8.5-10.5); Carbon Dioxide 28 mmol/L (22-29); Chloride 92 mmol/L (98-107); Globulin 3.8 g/dL (1.3-4.6); Glomerular Filtration Rate 226.2 mL/min (90-130); Glucose 112 mg/dL (65-115); Lactate (Lactic Acid level) 1.9 mmol/L (0.5-2.2); Osmolality Calculated 276 mOsm/kg (285-295); Sodium 133 mmol/L (136-145); Total Bilirubin 0.5 mg/dL (0.15-1.2); Total Protein 7.6 g/dL (6.6-8.7)
[2021-03-10 20:01] LABS: Anion Gap 16.8 (5-19); Aspartate Amino Transferase 17 U/L (0-32); Potassium 3.8 mmol/L (3.5-5.1)
[2021-03-10 20:10] LABS: Add Urine Microscopic? NO; Charge for UA Resulting for Rev
[2021-03-10 20:12] LABS: Bilirubin Urine Neg (Negative); Blood Urine Neg (Negative); Glucose Urine UA Norm (Normal); Ketones Urine Negative (Negative); Leukocyte Esterase Urine Negative (Negative); Nitrate Urine Negative (Negative); Protein Urine Neg (Negative); Urine Appearance Clear (CLEAR); Urine Color Yellow (Yellow); Urobilinogen Urine 1 mg/dL (Negative); pH Urine 7 (5-7)
[2021-03-10 20:54] LABS: Erythrocyte Sedimentation Rate 60 mm/hr (0-15)
[2021-03-10] MEDS: vancomycin 1,000 MG in sodium chloride 0.9% 250 ML 250 MG IV (20:58)
--- NOTE | 2021-03-10 23:00 | PM.HP ---
Providers/Chief Complaint Admitting Physician: Luis Alberto Perez Primary Care Provider: Debbie Dietz DO Chief Complaint: CELLULITIS History of Present Illness Polina Snyder is a 61 year old female with past medical history of Charcot Caryl tooth disease, diabetes, peripheral neuropathy, Charcot arthropathy, COPD, diastolic CHF, hypertension, previous admissions for sepsis, pneumonia, cellulitis and bacteremia who is presenting today with complaints of increased swelling and redness in the right lower extremity which was noticed to 3 days ago with progressive worsening. She reports that the area is very warm and tender. She has 2 ulcers in that foot. She reports having fever yesterday. She denies chest pain, shortness of breath, cough, palpitations, nausea or vomiting, diarrhea. She reports similar episodes in the past. She has seen international marketing specialist Dr. Garrido before. Review of Systems General: Reports: 10 or more systems reviewed and unremarkable except in HPI and below Medications/Allergies Home Medications Medication Instructions Recorded Confirmed Last Taken Type calcium carbonate 500 mg calcium 500 mg PO BID 03/15/20 02/01/21 Unknown History (1,250 mg) tablet cholecalciferol (vitamin D3) 1,250 1,250 mcg PO Q7D cap 03/15/20 02/01/21 Unknown History mcg (50,000 unit) capsule fenofibrate micronized 200 mg 200 mg PO BEDTIME cap 03/15/20 02/01/21 Unknown History capsule gabapentin 300 mg capsule 300 mg PO BID cap 03/15/20 02/01/21 12/26/20 19:00 History potassium chloride 20 mEq 20 meq PO DAILY 03/15/20 12/27/20 Unknown History tablet,extended release albuterol sulfate 1 puff INHALATION QID PRN 12/27/20 02/01/21 Unknown History Lasix 40 mg PO DAILY #0 tab 01/12/21 02/01/21 Unknown Rx lisinopril 20 mg PO DAILY 30 Days #15 tab 01/12/21 02/01/21 Unknown Rx baclofen 20 mg tablet 40 mg PO BID tab 02/01/21 02/01/21 Unknown History metformin 1,000 mg tablet 500 mg PO BID tab 02/01/21 02/01/21 Unknown History Allergies Allergy/AdvReac Type Severity Reaction Status Date / Time adhesive tape Allergy rash Verified 03/10/21 18:56 amitriptyline Allergy Unknown Verified 03/10/21 18:56 nalbuphine [From Nubain] Allergy sick to Verified 03/10/21 18:56 stomach Sulfa (Sulfonamide Allergy Itch all Verified 03/10/21 18:56 Antibiotics) over PFSH Acute PFSH: Medical History Cervical post-laminectomy syndrome Ttxsayz-Lqfqt-Zgooy disease-like deformity of foot right Chronic pain Depression with anxiety Diabetes mellitus, type II History of cardioversion history of SVT vs for other arrhythmia History of DVT of lower extremity post-operative Hyperlipidemia Hypertension Lumbar radiculopathy Lung cancer according to pain clinic notes, managed at [place], underwent radiation therapy in 2019 Torticollis, acquired Has had good results with Botox in the past Surgical History History of arthroplasty of left knee (~1976) History of partial hysterectomy Hx of appendectomy Hx of dilation and curettage Hx of neck surgery x 2, posterior laminectomy and cervical fusion with hardware in place, limited ROM neck at baseline Hx of total knee replacement (~2010) Right Hx of tubal ligation Family History Family/Other Hypertension Depression Anxiety Diabetes Father Aneurysm Mother Hypertension Brother Diabetes Sister Diabetes Social History Smoking and tobacco status: current some day smoker Alcohol intake: never Marital status: History of recent travel: No Additional social history: unknown if patient continues to smoke, documented to smoke previously Vitals/I&O/Wt Last Vital Signs Temp 98.2 F 03/10/21 22:45 Pulse 87 03/10/21 22:45 Resp 25 H 03/10/21 22:45 BP 101/55 03/10/21 22:45 Pulse Ox 95 03/10/21 22:45 03/10/21 03/10/21 03/11/21 14:59 22:59 06:59 Intake Total 1250 / 1250 Balance 1250 / 1250 Weight last 48 hrs Weight 81.647 kg Physical Exam Narrative: EXAM NARRATIVE: Currently the patient is awake alert and oriented. No acute distress. Mood and affect are appropriate. Responses are adequate. Skin is warm and dry. Dry mucous membranes. Eyes PERRL, extraocular muscles are intact Neck supple. No JVD Lungs are clear. No respiratory distress Heart S1, S2, regular Abdomen soft, nontender, bowel sounds are present Extremities: severe bilateral arthropathic changes more pronounced on the right side, severe bilateral venous stasis and lymphedema, bilateral hyperemia. The left side seems to be stasis dermatitis, however the right side is more swollen and more warm. She has 1 ulcer on her heel and another one around medial malleolus. Mild serous discharge. No peripheral cyanosis. Urinary Catheter Management^: Garber: Cath Placed During This Visit: yes Urinary Catheter Date of Insertion: 03/10/21 Urinary Catheter Time of Insertion: 20:07 Data : 03/10/21 19:03/10/21 19: Other Labs: Laboratory Results WBC 18.6 10^3/uL (4.0-10.0) H 03/10/21 19: RBC 4.15 10^6/uL (4.1-5.3) 03/10/21 19: Hgb 13.0 g/dL (11.5-15.3) 03/10/21 19: Hct 41.8 % (37.0-47.0) 03/10/21 19: MCV 100.7 fL (81-99) H 03/10/21 19: MCH 31.3 pg (28.0-34.0) 03/10/21 19: MCHC 31.1 g/dL (30.0-36.0) 03/10/21 19: RDW 14.5 % (12.1-15.1) 03/10/21 19: Plt Count 295 10^3/cmm (130-400) 03/10/21 19: MPV 10.4 fL (7.4-10.4) 03/10/21 19: Neut % (Auto) 93.2 % 03/10/21 19: Lymph % (Auto) 3.5 % 03/10/21 19: [place] % (Auto) 2.4 % 03/10/21 19: Eos % (Auto) 0.1 % 03/10/21: Baso % (Auto) 0.4 % 03/10/21 19:33 Neut # (Auto) 17.36 10^3/uL (1.8-7.7) H 03/10/21 19:33 Lymph # (Auto) 0.7 10^3/uL (0.8-4.8) L 03/10/21 19:33 [place] # (Auto) 0.5 10^3/uL (0.2-0.9) 03/10/21 19: Eos # (Auto) 0.0 10^3/uL (0.0-0.8) 03/10/21 19: Baso # (Auto) 0.1 10^3/uL (0.0-0.1) 03/10/21: Nucleated RBC % (auto) 0 % 03/10/21: Nucleated RBCs # 0.0 /100WBC 03/10/21 19: ESR 60 mm/hr (0-15) H 03/10/21 19:33 Specimen Type Arterial 03/10/21 19:25 Sample Site Brachial, right 03/10/21 19:25 ABG pH 7.44 (7.35-7.45) 03/10/21 19:25 ABG pCO2 43.9 mmHg (35-45) 03/10/21 19:25 ABG pO2 53.9 mmHg (80.0-100.0) L 03/10/21 19:25 ABG HCO3 29.9 mmol/L (22-26) H 03/10/21 19:25 ABG Base Excess 5.1 mmol/L (-2.0-2.0) H 03/10/21 19:25 Abdoulaye Test N/a 03/10/21 19:25 Hematocrit 38.0 % (37-47) 03/10/21 19:25 O2 Delivery Device Nc 03/10/21 19:25 O2 Liters/Min 1.0 % 03/10/21 19:25 FiO2 26.0 % 03/10/21 19:25 Music Arranger ID [id number] 03/10/21 19:25 Sodium 133 mmol/L (136-145) L 03/10/21 19:33 Potassium 3.8 mmol/L (3.5-5.1) 03/10/21 19: Chloride 92 mmol/L (98-107) L 03/10/21 19:33 Carbon Dioxide 28 mmol/L (22-29) 03/10/21 19:33 Anion Gap 16.8 (5-19) 03/10/21 19:33 BUN 10 mg/dL (8-23) 03/10/21 19:33 Creatinine 0.3 mg/dL (0.5-0.9) L 03/10/21 19:33 GFR Calculation 226.2 mL/min (90-130) H 03/10/21 19:33 Glucose 112 mg/dL (65-115) 03/10/21 19:33 Calculated Osmolality 276 mOsm/kg (285-295) L 03/10/21 19:33 Lactate 1.9 mmol/L (0.5-2.2) 03/10/21 19: Calcium 9.1 mg/dL (8.5-10.5) 03/10/21 19:33 Total Bilirubin 0.5 mg/dL (0.15-1.2) 03/10/21 19:33 AST 17 U/L (0-32) 03/10/21 19:33 ALT 10 U/L (0-33) 03/10/21 19:33 Alkaline Phosphatase 77 IU/L (35-105) 03/10/21 19:33 C-Reactive Protein 275.4 mg/L (0.0-4.9) H 03/10/21 19:33 Total Protein 7.6 g/dL (6.6-8.7) 03/10/21 19:33 Albumin 3.8 g/dL (3.5-5.2) 03/10/21 19:33 Globulin 3.8 g/dL (1.3-4.6) 03/10/21 19:33 Urine Color Yellow (Yellow) 03/10/21 20:04 Urine Appearance Clear (CLEAR) 03/10/21 20:04 Urine pH 7 (5-7) 03/10/21 20:04 Ur Specific [place] 1.010 (1.005-1.030) 03/10/21 20:04 Urine Protein Neg (Negative) 03/10/21 20:04 Urine Glucose (UA) Norm (Normal) 03/10/21 20:04 Urine Ketones Negative (Negative) 03/10/21 20:04 Urine Blood Neg (Negative) 03/10/21 20:04 Urine Nitrate Negative (Negative) 03/10/21 20:04 Urine Bilirubin Neg (Negative) 03/10/21 20:04 Urine Urobilinogen 1 mg/dL (Negative) H 03/10/21 20:04 Ur Leukocyte Esterase Negative (Negative) 03/10/21 20:04 Impressions Chest X-Ray 03/10/21 19:01 IMPRESSION: No focal acute pulmonary disease identified. Foot X-Ray 03/10/21 19:06 IMPRESSION: 1. Increased soft tissue swelling of the right foot. 2. No change in osseous structures. Suspected severe Charcot arthropathy changes with collapse of the midfoot. Micro: Microbiology 03/10/21 19:19 Blood Culture - Preliminary Blood SPECIMEN COLLECTED 03/10/21 19:33 Blood Culture - Preliminary Blood SPECIMEN COLLECTED A&P Additional A&P Information 61 year old female with past medical history of Charcot Caryl tooth disease, diabetes, peripheral neuropathy, Charcot arthropathy, COPD, diastolic CHF, hypertension, previous admissions for sepsis, pneumonia, cellulitis and bacteremia who is presenting today with complaints of increased swelling and redness in the right lower extremity. This very red looking cellulitis involving right foot, ankle and entire right distal lower extremity below the knee. There are 2 associated ulcers which are chronic. The area around ulcer on the ankle seems to be swollen concerning for possible abscess. Cellulitis and possible abscess. Will order MRI of the right foot. If abscess or osteomyelitis are identified we will request podiatry or orthopedic surgery consultation. For now we will start the patient on vancomycin and Zosyn. We will start IV fluids. We will reassess her hydration status in the morning. We will try to stop IV fluids as soon as possible to avoid fluid overload. I will prescribe nystatin orally to avoid thrush. During her previous hospitalization she had this problem. Pain management as needed. Hyponatremia probably secondary to dehydration. Will manage it with IV fluids and monitor. Diabetes. We will hold home Metformin and start insulin sliding scale. DVT prophylaxis. Lovenox. History of CHF and COPD. Currently stable no evidence of exacerbation. History of hypertension. Stable. We will hold her home medications because her blood pressure seems to be a little soft today. CODE STATUS. The patient wants to be full code. The plan of care was discussed with the patient. She verbalized understanding and agreement. Attestations Medical Necessity Statement*: Based on my assessment of her current condition she will require more than 2 midnights in the hospital. Coding Level of Care Code Acute Sanding Line Operator for Trent Crews
[2021-03-11] VITALS (8 sets, daily range): BP systolic 96–131; BP diastolic 60–74; PULSE 75–88; RESP 17–24; TEMP 36.3–38.1; O2SAT 90–98
--- NOTE | 2021-03-11 00:38 | PC.NURSE ---
Patient necklace Heart necklace brought up from ER by William. Necklace given to patient by this nurse.
[2021-03-11] MEDS: enoxaparin 40 mg/0.4 mL Syringe SUBCUT (00:46)
[2021-03-11] MEDS: piperacillin-tazobactam 3.375 GM in sodium chloride 0.9% (plus) 50 ML IV ×3 (00:46→16:06)
[2021-03-11] MEDS: sodium chloride 0.9% 1,000 ML 125 ML IV ×2 (00:47→16:06)
[2021-03-11] MEDS: HYDROcodone-acetaminophen 5-325 mg Tablet 1 TAB PO ×3 (01:29→17:36)
[2021-03-11 04:40] LABS: Glucose Point of Care 104 mg/dL (70-110)
[2021-03-11 06:21] LABS: Glucose Point of Care 92 mg/dL (70-110)
[2021-03-11] MEDS: vancomycin 1,500 MG/300 ML PIGGYBACK 200 MG IV ×3 (06:38→22:04)
[2021-03-11] MEDS: docusate sodium 100 mg Capsule PO ×2 (08:43→17:31)
[2021-03-11] MEDS: baclofen 10 mg Tablet 40 MG PO (08:44)
[2021-03-11] MEDS: gabapentin 300 mg Capsule PO ×2 (08:44→17:31)
--- NOTE | 2021-03-11 09:58 | PC.PHAR ---
PT STATES SHE TAKES CARE OF HER OWN MEDICATIONS-VERIFIED MEDICATIONS WITH [facility] AND PT-PT STATES SHE HAD BEEN IN THE HOSPITAL AND HAD A BUILD UP THE GABAPENTIN AND TAKES 3 CAP PO QID-[facility] LAST FILLED ON 01/27/21 10D/S FOR 3 CAPS QID-[facility] STATES THEY FILL ASPIRIN 81MG DAILY PT STATES SHE TAKES A FULL 325MG ASPIRIN DAILY-[facility] FILLED EFFEXOR ER 75MG 3 CAPS DAILY ON 02/20/21 AND LEXAPRO 10MG PO DAILY FILLED ON 02/21/21 PT STATES SHE DOES NOT TAKE THOSE MEDICATIONS ANYMORE-PT STATES SHE HAS A ATROVENT INHALER [facility] STATES THEY HAVENT FILLED THAT FOR THE PT
[2021-03-11 11:02] LABS: Glucose Point of Care 168 mg/dL (70-110)
--- NOTE | 2021-03-11 12:18 | PC.CHAP ---
Pastoral Care Encounter/Spiritual Assessment Type of Contact [] Declined sales enablement specialist visit [] Patient/Family/Request visit [] Outpatient visit [] Follow-up visit [] Physician referral [] Code/Alert [XX] Routine visit [] Staff referral [] Actively dying [XX] Patient sleeping [] Family support [] [] Out of room [] Palliative care [] [] Receiving care in room [] Pre-surgical visit [] Trauma [] Long length of stay [] ICU visit [] Other: Relational/Emotional Strength [] Patient feels connected with others/family/visitors/staff [] Distress [] Loneliness/isolation [] Abandonment Spirituality of Patient [] Person of Amee [] Attends Buddhist of their Amee [] Believes in Prayer [] Reads Bible or Restorationist materials [] There are Spiritual issues to be addressed Spinneret Cleaner Interventions [] Prayer [] Active listening [] Non-anxious presence [] Spiritual/emotional support [] Crisis/trauma care [] Spiritual counseling [] Bereavement support [] Provided bereavement packet [] Provided Bible/devotional materials [] Provided toy/stuffed animal, coloring book to patient or family member [] Provided Communion [] Anointing/[place] [] Salvation [] Completed spiritual assessment [] Other: Impact on Illness or Injury [] Angry [] Fearful [] Anxious [] Often cries [] Exhaustion [] Unable to work [] Unable to attend mosque [] Unable to walk/stand [] Unable to read [] Unable to drive [] Unable to eat/drink [] Unable to sleep [] Unable to be with family [] Patient intubated [] Other: Summary Time spent with patient
--- NOTE | 2021-03-11 15:18 | P.PN_ITS ---
Subjective Subjective: Interval history: Admitted overnight. H&P and labs noted. Examination patient lying comfortably in bed with family at bedside. On entering the room patient is already drowsy but awakes to have complete conversation. She is complaining of pain. On medical reconciliation she feels she is taking baclofen sometimes 1 tablet twice a day sometimes 2 tablets twice a day, she is not really sure about Cymbalta or Celexa but she says she takes them. She also states she takes methadone 1 tablet now and she last took a tablet 3 days ago. She is not really sure who prescribes her the methadone. She states she does not follow-up with pain clinic as she was discharged from there service. Vitals/I&O/Wt Last Vital Signs Temp 97.4 F L 03/11/21 11:31 Pulse 82 03/11/21 12:29 Resp 18 03/11/21 11:31 BP 100/62 03/11/21 11:31 Pulse Ox 91 03/11/21 12:29 03/11/21 03/11/21 03/11/21 06:59 14:59 22:59 Intake Total 50 / 1300 1730 / 1730 Output Total 600 / 600 525 / 525 Balance -550 / 700 1205 / 1205 Weight last 48 hrs Weight 81.647 kg Physical Exam Narrative: EXAM NARRATIVE: Drowsy on examination. No acute distress. Responses are adequate. Wakes up to have complete transition. AOx3. Skin is warm and dry. Dry mucous membranes. Eyes PERRL, extraocular muscles are intact Neck supple. No JVD Lungs are clear. No respiratory distress Heart S1, S2, regular Abdomen soft, nontender, bowel sounds are present Extremities: severe bilateral arthropathic changes more pronounced on the right side, severe bilateral venous stasis and lymphedema, bilateral hyperemia. The left side seems to be stasis dermatitis, however the right side is more swollen and more warm. She has 1 ulcer on her heel and another one around medial malleo christopher. Mild serous discharge. No peripheral cyanosis. Urinary Catheter Management^: Garber: Cath Placed During This Visit: yes Reason for Continuing Indwelling Catheter: Accurate Measurement of Urinary Output in Critically Ill Patients Urinary Catheter Date of Insertion: 03/10/21 Urinary Catheter Time of Insertion: 20:07 Data : 03/12/21 07:42 04/25/21 07:42 Micro: Microbiology 03/10/21 19:19 Blood Culture - Preliminary Blood SPECIMEN COLLECTED 03/10/21 19:33 Blood Culture - Preliminary Blood SPECIMEN COLLECTED A&P Assessment and plan (1) Cellulitis: Status: Acute Qualifiers: Laterality: right Site of cellulitis: extremity Site of cellulitis of extremity: lower extremity Qualified Code(s): L03.115 - Cellulitis of right lower limb (2) Mwxhday-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 (3) Substance abuse: Status: Acute (4) Methamphetamine use: Status: Chronic (5) Diabetic neuropathy associated with type 2 diabetes mellitus: Status: Acute (6) Diastolic CHF: Status: Acute (7) Diabetes mellitus, type II: Status: Chronic Qualifiers: Diabetes mellitus complication detail: with other arthropathy Diabetes mellitus complication status: with diabetic arthropathy Diabetes mellitus marine oil terminal 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 Sepsis secondary to cellulitis and possible abscess: Cannot rule out osteomyelitis. White count elevated on admission, ESR, CRP elevated. We will do CT foot with contrast and if inconclusive will order MRI of the right foot. We will see the availability of Dr. Garrido over the week and then consult accordingly. For now continue with vancomycin and Zosyn. Blood cultures pending, check MRSA swab. Check iron panel. For now continue with [place] 5 every 8 as needed. Continue with normal saline at 100 cc/h. We will monitor for fluid overload. Hyponatremia: Probably secondary to dehydration. Will manage it with IV fluids and monitor. Diabetes. Insulin sliding scale. Monitor blood sugars. Hypertension: Goal blood pressure less than 140/90 mmHg. We will continue to monitor. History of drug abuse: On last admission patient was intubated because of drug withdrawal. There is a confusion of what medication she is on. On last admission there was a concern for polypharmacy as well. Currently there is a confusion on what medication she is on and what dosage she is on. She is supposed to be on gabapentin 300 twice daily, tizanidine 4 mg p.o. 3 times daily as needed, Celexa while medications including venlafaxine, BuSpar, baclofen was stopped on last discharge but right now as per med rec she is on BuSpar 3 times daily as needed, baclofen 40 mg daily, Compazine as needed and he states he takes methadone 10 mg as well. On Saturday will confirm the medical reconciliation through her pharmacy, nurse from home health and primary care's office. For now continue with baclofen 20 mg daily, [place] 5 mg every 8 hours as needed, gabapentin 300 twice daily. We will monitor for drug withdrawal. History of diastolic heart failure. History of COPD. Lovenox for DVT prophylaxis. Full code. Carb consistent cardiac diet. Attestations Medical Necessity Statement*: Patient requires further hospitalization for management of sepsis secondary to cellulitis, possible abscess versus osteomyelitis Time Spent in Patient Care: Greater than 35 minutes (>than 50% of time spent in counselling and/or direct pt care on unit) . Coding Level of Care Code Acute Supervisor [employer] for [facility] Fwd Diagnoses Cellulitis L03.115 Laterality: right Site of cellulitis: extremity Site of cellulitis of extremity: lower extremity Pkgkbkh-Nmjjb-Dtjeq disease-like deformity of foot G60.0 Substance abuse F19.10 Methamphetamine use F15.10 Diabetic neuropathy associated with type 2 diabetes mellitus E11.40 Diastolic CHF I50.30 Diabetes mellitus, type II E11.618 Diabetes mellitus complication detail: with other arthropathy Diabetes mellitus complication status: with diabetic arthropathy Diabetes mellitus usp insulin use: without marine oil terminal superintendent use Sepsis A41.9
--- NOTE | 2021-03-11 15:18 | CTR_ITS ---
PROCEDURE INFORMATION: Exam: CT Right Lower Extremity With Contrast, Foot Exam date and time: 03/11/2021 6:00 PM Age: 61 years old Clinical indication: Foot; Right; Patient HX: Cmt deformity/arthropathy C/O worsened pain redness and swelling; Additional info: Osteo vs abscess TECHNIQUE: Imaging protocol: CT of the Right lower extremity with intravenous contrast was performed. Exam focused on the foot. Radiation optimization: All CT scans at this facility use at least one of these dose optimization techniques: automated exposure control; mA and/or kV adjustment per patient size (includes targeted exams where dose is matched to clinical indication); or iterative reconstruction. Contrast material: OMNI 300; Contrast volume: 95 ml; Contrast route: INTRAVENOUS (IV); COMPARISON: CT foot RT wo con* [id number] 12/27/2020 3:17 AM RADIATION DOSE METRICS: Total DLP (mGy-cm): 179.51 FINDINGS: Bones/joints: Bones are diffusely demineralized. No acute fractures. Collapse of midfoot arch. The talus is rotated medially. Corticated cystic lesion in the body of the talus stable in appearance from prior imaging. Severe talonavicular joint arthritis. Advanced arthritis changes in the tibiotalar joint and the subtalar joint. Pes planus deformity of midfoot arch. Large osseous spurs of the calcaneus. Soft tissues: Diffuse skin thickening. Diffuse subcutaneous soft tissue edema. No focal drainable soft tissue fluid collection. CT/CT foot RT w con [id number] IMPRESSION: 1. Diffuse cellulitis of the right lower extremity. 2. No convincing CT scan evidence of osteomyelitis in the foot or ankle. 3. No significant changes from comparison imaging demonstrating advanced features of Charcot arthropathy in the midfoot and hindfoot. Radiation Dose CTDIVOL = (mGy): DLP = 179.51 (mGy-cm)
[2021-03-11] MEDS: famotidine 20 mg/2 mL INJ IVP (16:06)
[2021-03-11 17:10] LABS: Glucose Point of Care 175 mg/dL (70-110)
[2021-03-11] MEDS: atenolol 50 mg Tablet PO (17:31)
[2021-03-11] MEDS: sucralfate 1 gm Tablet PO ×2 (17:31→20:46)
[2021-03-11] MEDS: iohexol 300 mg/mL 100 mL Btl IV (18:31)
[2021-03-11 20:32] LABS: Glucose Point of Care 111 mg/dL (70-110)
[2021-03-11] MEDS: nystatin 100,000 unit/mL UDC 5 mL 500000 UNIT PO (20:46)
[2021-03-11] MEDS: morphine 4 mg/mL SDV 1 mL 2 MG IVP (20:49)
[2021-03-11 21:41] LABS: Vancomycin Trough 12.9 ug/mL (10-15)
[2021-03-11 21:46] LABS: Procalcitonin 0.44 ng/mL (0-0.5)
[2021-03-11 21:56] LABS: C Reactive Protein 325.7 mg/L (0.0-4.9); Iron 11 ug/dL (37-145); Percent Saturation 4.8 % (20-50); Total Iron Binding Capacity 227 mcg/dl; Unsaturated Iron Binding 216 ug/dL (112-347)
[2021-03-11] MEDS: sodium chloride 0.9% 1,000 ML 100 ML IV (22:05)
[2021-03-11 22:09] LABS: Erythrocyte Sedimentation Rate 74 mm/hr (0-15)
[2021-03-12] VITALS (18 sets, daily range): BP systolic 98–141; BP diastolic 59–82; PULSE 65–90; RESP 17–24; TEMP 36.4–37.3; O2SAT 90–95
[2021-03-12] MEDS: enoxaparin 40 mg/0.4 mL Syringe SUBCUT ×2 (00:41→23:29)
[2021-03-12] MEDS: piperacillin-tazobactam 3.375 GM in sodium chloride 0.9% (plus) 50 ML IV ×4 (00:41→23:28)
[2021-03-12] MEDS: HYDROcodone-acetaminophen 5-325 mg Tablet 1 TAB PO ×2 (01:24→11:05)
[2021-03-12] MEDS: ondansetron 2 mg/ML SDV 2 mL 4 MG IVP (01:24)
[2021-03-12] MEDS: vancomycin 1,500 MG/300 ML PIGGYBACK 300 MG IV ×2 (06:03→21:11)
[2021-03-12] MEDS: famotidine 20 mg/2 mL INJ IVP ×2 (06:03→17:11)
[2021-03-12] MEDS: morphine 4 mg/mL SDV 1 mL 2 MG IVP (06:04)
[2021-03-12 06:31] LABS: Glucose Point of Care 73 mg/dL (70-110)
[2021-03-12 08:18] LABS: Basophils % 0.3 %; Eosinophils # 0.1 10^3/uL (0.0-0.8); Eosinophils % 0.9 %; Hemoglobin 11.2 g/dL (11.5-15.3); Lymphocytes # 0.9 10^3/uL (0.8-4.8); Lymphocytes % 7.3 %; Mean Corpuscular HGB Conc 29.5 g/dL (30.0-36.0); Mean Corpuscular Hemoglobin 31.7 pg (28.0-34.0); Mean Corpuscular Volume 107.6 fL (81-99); Mean Platelet Volume 10.7 fL (7.4-10.4); Monocytes # 0.8 10^3/uL (0.2-0.9); Monocytes % 7.1 %; Neutrophils % 83.7 %; Nucleated Red Blood Cells % 0 %; Platelet Count 219 10^3/cmm (130-400); Red Blood Count 3.53 10^6/uL (4.1-5.3); Red Cell Distribution Width 14.5 % (12.1-15.1); White Blood Count 11.6 10^3/uL (4.0-10.0)
[2021-03-12 08:35] LABS: Alanine Aminotransferase 16 U/L (0-33); Albumin Level 2.6 g/dL (3.5-5.2); Alkaline Phosphatase 74 IU/L (35-105); Aspartate Amino Transferase 14 U/L (0-32); Blood Urea Nitrogen 8 mg/dL (8-23); Calcium 8.2 mg/dL (8.5-10.5); Carbon Dioxide 27 mmol/L (22-29); Chloride 102 mmol/L (98-107); Globulin 3.5 g/dL (1.3-4.6); Glomerular Filtration Rate 361.1 mL/min (90-130); Glucose 79 mg/dL (65-115); Osmolality Calculated 283 mOsm/kg (285-295); Sodium 138 mmol/L (136-145); Total Bilirubin 0.3 mg/dL (0.15-1.2); Total Protein 6.1 g/dL (6.6-8.7)
[2021-03-12 08:38] LABS: Anion Gap 12.4 (5-19); Potassium 3.4 mmol/L (3.5-5.1)
[2021-03-12] MEDS: gabapentin 300 mg Capsule PO ×2 (08:57→17:11)
[2021-03-12] MEDS: docusate sodium 100 mg Capsule PO ×2 (08:57→17:11)
[2021-03-12] MEDS: atenolol 50 mg Tablet PO ×2 (08:57→17:11)
[2021-03-12] MEDS: baclofen 10 mg Tablet 20 MG PO (08:58)
[2021-03-12] MEDS: sucralfate 1 gm Tablet PO ×4 (08:59→21:11)
[2021-03-12 11:13] LABS: Glucose Point of Care 134 mg/dL (70-110)
[2021-03-12] MEDS: FUROsemide 10 mg/mL SDV 4mL 40 MG IVP ×2 (11:46→17:55)
[2021-03-12] MEDS: ipratropium-albuterol 3 mL Neb INHALATION ×3 (12:03→20:59)
[2021-03-12 12:04] LABS: Albumin Level 2.8 g/dL (3.5-5.2); Blood Urea Nitrogen 9 mg/dL (8-23); Calcium 8.3 mg/dL (8.5-10.5); Carbon Dioxide 24 mmol/L (22-29); Chloride 101 mmol/L (98-107); Glomerular Filtration Rate 361.1 mL/min (90-130); Glucose 80 mg/dL (65-115); Magnesium 1.6 mg/dL (1.7-2.3); Phosphorus 1.8 mg/dL (2.5-4.5); Sodium 136 mmol/L (136-145)
[2021-03-12 12:11] LABS: Anion Gap 15.4 (5-19); Potassium 4.4 mmol/L (3.5-5.1)
[2021-03-12] MEDS: vancomycin 1,500 MG/300 ML PIGGYBACK 200 MG IV (12:49)
[2021-03-12] MEDS: methadone 10 mg Tablet PO (12:57)
--- NOTE | 2021-03-12 14:15 | PM.CONSULT ---
Providers/Reason For Consult Consulting Physican/Specialty*: Dr. Grissom Reason for Consult*: Cellulitis of the foot Attending Physician: Eduardo Pineda MD Primary Care Provider: Debbie Dietz DO History of Present Illness History of Present Illness Polina Snyder is a 61 year old female with chronic wounds who is currently seen at a wound care clinic. Patient presented last night with increasing pain and redness in the right leg over the last 3 days. Patient states it is tender to touch. He she has a history of chronic lymphedema and has had multiple wounds taken care off in the past. She has Charcot's foot, diabetes peripheral neuropathy. Patient was admitted to the hospital for IV antibiotics and is currently on IV vancomycin and Zosyn. Review of Systems General: Reports: 10 or more systems reviewed and unremarkable except in HPI and below Meds/Allergies Home Medications and Allergies Home Medications Medication Instructions Recorded Confirmed Last Taken Type cholecalciferol (vitamin D3) 1,250 1,250 mcg PO Q7D cap 03/15/20 03/11/21 03/09/21 History mcg (50,000 unit) capsule gabapentin 300 mg capsule 900 mg PO QID cap 03/15/20 03/11/21 12/26/20 19:00 History potassium chloride 20 mEq 20 meq PO QAM 03/15/20 03/11/21 Unknown History tablet,extended release albuterol sulfate 2 puff INHALATION Q6H PRN 12/27/20 03/11/21 Unknown History baclofen 20 mg tablet 40 mg PO DAILY@14 tab 02/01/21 03/11/21 Unknown History metformin 1,000 mg tablet 500 mg PO BID tab 02/01/21 03/11/21 Unknown History amlodipine 10 mg PO QAM 03/11/21 03/11/21 Unknown History aspirin 325 mg PO DAILY 03/11/21 03/11/21 Unknown History atenolol 100 mg PO BID 03/11/21 03/11/21 Unknown History buspirone [BuSpar] 5 mg PO TID 03/11/21 03/11/21 Unknown History duloxetine [Cymbalta] 60 mg PO QAM 03/11/21 03/11/21 Unknown History fenofibrate micronized 200 mg PO BEDTIME 03/11/21 03/11/21 Unknown History furosemide 40 mg PO DAILY PRN 03/11/21 03/11/21 Unknown History ipratropium bromide [Atrovent HFA] 2 puff INHALATION BID 03/11/21 03/11/21 Unknown History lidocaine-prilocaine See Rx Instructions .ROUTE .COMPLEX 03/11/21 03/11/21 Unknown History lisinopril 40 mg PO QAM 03/11/21 03/11/21 Unknown History magnesium oxide 400 mg PO DAILY 03/11/21 03/11/21 Unknown History pantoprazole [Protonix] 40 mg PO BID 03/11/21 03/11/21 Unknown History prochlorperazine maleate 10 mg PO DAILY PRN 03/11/21 03/11/21 Unknown History [Compazine] sucralfate 1 g PO QID 03/11/21 03/11/21 Unknown History Allergies Allergy/AdvReac Type Severity Reaction Status Date / Time adhesive tape Allergy rash Verified 03/10/21 18:56 amitriptyline Allergy Unknown Verified 03/10/21 18:56 nalbuphine [From Nubain] Allergy sick to Verified 03/10/21 18:56 stomach Sulfa (Sulfonamide Allergy Itch all Verified 03/10/21 18:56 Antibiotics) over Current Medications Current Medications Generic Name Dose Route Start Last Admin Trade Name Freq PRN Reason Stop Dose Admin Atenolol 50 mg 03/11/21 18:00 03/12/21 08:57 Atenolol 50 Mg Tablet PO 50 mg BID RANJIT Administration Baclofen 20 mg 03/12/21 09:00 03/12/21 08:58 Baclofen 10 Mg Tablet PO 20 mg DAILY RANJIT Administration Docusate Sodium 100 mg 03/11/21 09:00 03/12/21 08:57 Docusate Sodium 100 Mg Capsule PO 100 mg BID RANJIT Administration Enoxaparin Sodium 40 mg 03/10/21 23:00 03/12/21 00:41 Enoxaparin 40 Mg/0.4 Ml Syringe SUBCUT 40 mg Q24H RANJIT Administration Famotidine 20 mg 03/11/21 17:00 03/12/21 06:03 Famotidine 20 Mg/2 Ml Inj IVP 20 mg Q12H RANJIT Administration Gabapentin 300 mg 03/11/21 09:00 03/12/21 08:57 Gabapentin 300 Mg Capsule PO 300 mg BID RANJIT Administration Piperacillin Sod/Tazobactam 50 mls @ 12.5 mls/hr 03/10/21 23:00 03/12/21 13:08 Sod 3.375 gm/ Sodium Chloride IV Infused Q8H [facility] Infusion Protocol Vancomycin/PEG/NADA/Lysine/Water 1,500 mg in 300 mls @ 200 mls/hr 03/11/21 05:00 03/12/21 12:49 Vancocin IV 200 mls/hr Q8H RANJIT Administration Insulin Aspart 0 unit 03/11/21 08:00 03/12/21 11:45 Insulin Aspart 100 Unit/1 Ml SUBCUT Not Given TIDWM [facility] Protocol Methadone HCl 10 mg 03/12/21 12:30 03/12/21 12:57 Methadone 10 Mg Tablet PO 10 mg DAILY RANJIT Administration Morphine Sulfate 2 mg 03/10/21 22:51 03/12/21 06:04 Morphine 4 Mg/Ml Sdv 1 Ml IVP 2 mg Q4H PRN Administration SEVERE PAIN Nystatin 500,000 unit 03/11/21 09:00 03/12/21 12:56 Nystatin 100,000 Unit/Ml Udc 5 Ml PO Not Given QID RANJIT Ondansetron HCl 4 mg 03/10/21 22:51 03/12/21 01:24 Ondansetron 2 Mg/Ml Sdv 2 Ml IVP 4 mg Q8H PRN Administration vomiting, or N/V if npo Sucralfate 1 gm 03/11/21 17:00 03/12/21 13:03 Sucralfate 1 Gm Tablet PO 1 gm QID RANJIT Administration PFSH Acute PFSH: Medical History Cervical post-laminectomy syndrome Oniglid-Kqhzy-Ssdsp disease-like deformity of foot right Chronic pain Depression with anxiety Diabetes mellitus, type II History of cardioversion history of SVT vs for other arrhythmia History of DVT of lower extremity post-operative Hyperlipidemia Hypertension Lumbar radiculopathy Lung cancer according to pain clinic notes, managed at [place], underwent radiation therapy in 2019 Torticollis, acquired Has had good results with Botox in the past Surgical History History of arthroplasty of left knee (~1976) History of partial hysterectomy Hx of appendectomy Hx of dilation and curettage Hx of neck surgery x 2, posterior laminectomy and cervical fusion with hardware in place, limited ROM neck at baseline Hx of total knee replacement (~2010) Right Hx of tubal ligation Family History Family/Other Hypertension Depression Anxiety Diabetes Father Aneurysm Mother Hypertension Brother Diabetes Sister Diabetes Social History Smoking and tobacco status: current some day smoker Alcohol intake: never Marital status: History of recent travel: No Additional social history: unknown if patient continues to smoke, documented to smoke previously Vitals/I&O/Wt Last Vital Signs Temp 98.2 F 03/12/21 12:00 Pulse 86 03/12/21 13:01 Resp 18 03/12/21 12:57 BP 117/63 03/12/21 12:00 Pulse Ox 94 03/12/21 13:01 03/11/21 03/12/21 03/12/21 22:59 06:59 14:59 Intake Total 555.625 / 2935.625 350 / 2935.625 2070.000 / 2070.000 Output Total 825 / 2175 825 / 2175 Balance -269.375 / 760.625 -475 / 329.126 5997.000 / 2070.000 Weight last 48 hrs Weight 180 lb Physical Exam Narrative: EXAM NARRATIVE: HEENT: Normocephalic Eye: Sclera /conjunctiva normal Abdomen: Soft to palpation Neurological: Oriented to place person and time Skin: Right leg: Chronic lymphedema with associated cellulitis extending up to the knee Wound #1: Measures 2.5 x 2 x 0.2 cm on the right calcaneus has no surrounding erythema, necrotic tissue present within the wound Wound #2: Measures 2.5 x 2.5 x 0.1 cm on the medial aspect of the right foot, surrounding erythema present, has minimal necrotic tissue Left leg: Chronic lymphedema no significant cellulitis and the wound is almost completely healed Urinary Catheter Management^: Garber: Cath Placed During This Visit: yes Reason for Continuing Indwelling Catheter: Accurate Measurement of Urinary Output in Critically Ill Patients Urinary Catheter Date of Insertion: 03/10/21 Urinary Catheter Time of Insertion: 20:07 Data Micro: Micro: Microbiology 03/11/21 04:30 Wound Culture - Pr eliminary Ankle - #1 03/10/21 19:19 Blood Culture - Pr eliminary Blood NEGATIVE TO JOHN E 03/10/21 19:33 Blood Culture - Pr eliminary Blood A&P Assessment and plan (1) Cellulitis: 61-year-old female with history of Charcot's foot, diabetes, peripheral neuropathy who presents with cellulitis superimposed on chronic lymphedema in the right leg. Patient's wounds have minimal necrotic tissue and needs debridement which we will perform at the bedside Continue IV vancomycin and Zosyn CT left foot showed cellulitis but no evidence of abscess or osteomyelitis and significant Charcot foot arthropathy: WBC currently is 11.6 Recommend wound care with Celestina once daily after debridement. Status: Acute Qualifiers: Laterality: right Site of cellulitis: extremity Site of cellulitis of extremity: lower extremity Qualified Code(s): L03.115 - Cellulitis of right lower limb Coding Level of Care Code Acute Social Science Instructor for [facility] Diagnoses Cellulitis L03.115 Laterality: right Site of cellulitis: extremity Site of cellulitis of extremity: lower extremity
--- NOTE | 2021-03-12 14:22 | PM.ACPR ---
Procedure/Consent Time out: Time Out Performed: Yes Procedure Narrative: Preop diagnosis: Wound #1 medial aspect of right foot measuring 2.5 x 2.5 x 0.1 cm Wound #2 right heel measuring 2.5 x 2 x 0.2 cm. Postop diagnosis: Same Procedure: Excisional debridement of necrotic wound x2 using curette Surgeon: Wilner Anesthesia: None Description of the procedure: Using a curette excisional debridement of necrotic wound on the medial aspect of the right foot was performed until there is punctate bleeding noted. The wound measured 2.5 x 2.5 0.1 cm. Using curette excisional debridement of necrotic wound on the medial aspect of the right foot was performed until there was punctate bleeding noted. The wound measured 2.5 x 2 x 0.2 cm. Patient tolerated the procedure well Acute Procedures Epistaxis Control: Time out performed: Yes
[2021-03-12] MEDS: iron sucrose 200 MG in sodium chloride 0.9% (100 ml) 100 ML 220 MG IV (14:34)
--- NOTE | 2021-03-12 16:22 | XR_ITS ---
WS: [id number] Exam: XR chest 1V portable [id number] Date/Time of Exam: 03/12/2021 4:22 PM Reason For Exam: chf Comparison 03/10/2021. The lungs are fully expanded. No infiltrates or pleural effusions identified. Cardiomediastinal struc tures are unremarkable for portable technique. There is hardware in the cervical and upper thoracic s pine. XR/XR chest 1V portable [id number] IMPRESSION: 1. No acute cardiopulmonary finding. No change.
[2021-03-12 16:48] LABS: Glucose Point of Care 115 mg/dL (70-110)
--- NOTE | 2021-03-12 17:30 | PM.PN ---
Subjective Subjective: Interval history: No acute events overnight. Patient has remained comfortable. On examination patient looks tachypneic. On 3 L saturating 84%. She feels tight in her chest. Patient states she would like to apologize to me today for giving a false information yesterday. She states she takes sometimes 2 to 3 tablets of methadone recently and prior to that she used to take 10 mg of methadone daily. She denies any nausea, vomiting, headache, abdominal pain, palpitations at present. Vitals/I&O/Wt Last Vital Signs Temp 97.8 F 03/12/21 16:00 Pulse 88 03/12/21 16:00 Resp 18 03/12/21 16:00 BP 141/70 03/12/21 16:00 Pulse Ox 95 03/12/21 16:00 03/12/21 03/12/21 03/12/21 06:59 14:59 22:59 Intake Total 350 / 2935.625 2370.000 / 2370.000 110 / 2480.000 Output Total 825 / 2175 3000 / 3000 Balance -475 / 789.020 6499.000 / 2370.000 -2890 / -520.000 Weight last 48 hrs Weight 81.647 kg Physical Exam Narrative: EXAM NARRATIVE: Awake alert, mild distress due to her difficulty in breathing on 3 L oxygen through nasal cannula Skin is warm and dry. Dry mucous membranes. Eyes PERRL, extraocular muscles are intact Neck supple. No JVD Lungs bilateral fine crackles present in the lower zones Heart S1, S2, regular Abdomen soft, nontender, bowel sounds are present Extremities: severe bilateral arthropathic changes more pronounced on the right side, severe bilateral venous stasis and lymphedema, bilateral hyperemia. The left side seems to be stasis dermatitis, however the right side is more swollen and more warm. She has 1 ulcer on her heel and another one around medial malleolus. Mild serous discharge. No peripheral cyanosis. Urinary Catheter Management^: Garber: Cath Placed During This Visit: yes Reason for Continuing Indwelling Catheter: Accurate Measurement of Urinary Output in Critically Ill Patients Urinary Catheter Date of Insertion: 03/10/21 Urinary Catheter Time of Insertion: 20:07 Data : 03/12/21 07:42 03/12/21 07:42 Micro: Microbiology 03/11/21 04:30 Wound Culture - Preliminary Ankle - #1 03/10/21 19:19 Blood Culture - Preliminary Blood NEGATIVE TO DATE 03/10/21 19:33 Blood Culture - Preliminary Blood A&P Assessment and plan (1) Cellulitis: Status: Acute Qualifiers: Laterality: right Site of cellulitis: extremity Site of cellulitis of extremity: lower extremity Qualified Code(s): L03.115 - Cellulitis of right lower limb (2) Rmtpqtp-Panzo-Fnhvo disease-like deformity of foot: Status: Chronic (3) Substance abuse: Status: Acute (4) Methamphetamine use: Status: Chronic (5) Diabetic neuropathy associated with type 2 diabetes mellitus: Status: Acute (6) Diastolic CHF: Status: Acute (7) Diabetes mellitus, type II: Status: Chronic Qualifiers: Diabetes mellitus dedicated intermodal truck 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 insulin use: without residential use Diabetes mellitus complication status: with diabetic arthropathy Diabetes mellitus complication detail: with other arthropathy Qualified Code(s): E11.618 - Type 2 diabetes mellitus with other diabetic arthropathy (8) Sepsis: Status: Acute Additional A&P Information 61 year old female with past medical history of Charcot Caryl tooth disease, diabetes, peripheral neuropathy, Charcot arthropathy, COPD, diastolic CHF, hypertension, history of drug abuse, previous admissions for sepsis, pneumonia, cellulitis and bacteremia who is presenting today with complaints of increased swelling and redness in the right lower extremity. Sepsis secondary to cellulitis and possible abscess: Cannot rule out osteomyelitis. White count elevated on admission, ESR, CRP elevated. MRI tomorrow. Dr. Garrido not available over the week so we will consult surgery for further recommendations. For now continue with vancomycin and Zosyn. Blood cultures pending, check MRSA swab. Shortness of breath: Most likely because of congestive heart failure. Patient has history of diastolic heart failure: Stop IV fluids. IV Lasix 40 mg stat. Start patient on DuoNebs every 6 hour, budesonide twice daily. Check proBNP, portable chest x-ray. Keep saturation over 92%. If needed will repeat Lasix today. Strict input output charting, daily weights. Hyponatremia: Probably secondary to dehydration. Will manage it with IV fluids and monitor. Diabetes. Insulin sliding scale. Monitor blood sugars. Hypertension: Goal blood pressure less than 140/90 mmHg. We will continue to monitor. History of drug abuse: On last admission patient was intubated because of drug withdrawal. There is a confusion of what medication she is on. She is supposed to be on gabapentin 300 twice daily, tizanidine 4 mg p.o. 3 times daily as needed, Celexa while medications including venlafaxine, BuSpar, baclofen was stopped on last discharge but right now as per med rec she is on BuSpar 3 times daily as needed, baclofen 40 mg daily, Compazine as needed and he states he takes methadone 10 mg as well. To avoid drug withdrawal we will start patient on methadone 10 mg oral daily. Stop oral [place]. On Saturday will confirm the medical reconciliation through her pharmacy, nurse from home health and primary care's office. History of diastolic heart failure. History of COPD. Lovenox for DVT prophylaxis. Full code. Carb consistent cardiac diet. Attestations Medical Necessity Statement*: Patient requires further hospitalization for management of sepsis secondary to cellulitis, diastolic congestive heart failure Time Spent in Patient Care: Greater than 35 minutes (>than 50% of time spent in counselling and/or direct pt care on unit). 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 [employer] Diagnoses Cellulitis L03.115 Laterality: right Site of cellulitis: extremity Site of cellulitis of extremity: lower extremity Qjbsjmy-Zdede-Mptfz disease-like deformity of foot G60.0 Substance abuse F19.10 Methamphetamine use F15.10 Diabetic neuropathy associated with type 2 diabetes mellitus E11.40 Diastolic CHF I50.30 Diabetes mellitus, type II E11.618 Diabetes mellitus dedicated intermodal truck driver insulin use: without dedicated intermodal truck driver use Diabetes mellitus complication status: with diabetic arthropathy Diabetes mellitus complication detail: with other arthropathy Sepsis A41.9
[2021-03-12] MEDS: potassium chloride ER 20 mEq Tablet 80 MEQ PO (17:55)
[2021-03-12 20:15] LABS: Amphetamines Screen Urine Positive (Negative); Barbiturates Screen Urine Negative (Negative); Benzodiazepines Screen Urine Negative (Negative); Cocaine Screen Urine Negative (Negative); Opiate Screen Urine Positive (Negative); PCP Screen Urine Negative (Negative); THC Screen Urine Negative (Negative)
[2021-03-12 20:57] LABS: Glucose Point of Care 124 mg/dL (70-110)
[2021-03-12] MEDS: budesonide 0.5 mg/2 mL Neb 0.25 MG INHALATION (20:59)
[2021-03-13] VITALS (16 sets, daily range): BP systolic 124–166; BP diastolic 69–81; PULSE 61–103; RESP 16–36; TEMP 36.6–37; O2SAT 91–96
[2021-03-13] MEDS: ipratropium-albuterol 3 mL Neb INHALATION ×4 (02:32→21:15)
[2021-03-13] MEDS: morphine 4 mg/mL SDV 1 mL 2 MG IVP (02:56)
[2021-03-13] MEDS: famotidine 20 mg/2 mL INJ IVP ×2 (05:18→17:26)
[2021-03-13 05:55] LABS: Basophils % 0.4 %; Eosinophils # 0.1 10^3/uL (0.0-0.8); Eosinophils % 1.2 %; Hematocrit 34.9 % (37.0-47.0); Hemoglobin 10.7 g/dL (11.5-15.3); Lymphocytes # 0.8 10^3/uL (0.8-4.8); Lymphocytes % 9.2 %; Mean Corpuscular HGB Conc 30.7 g/dL (30.0-36.0); Mean Corpuscular Hemoglobin 31.3 pg (28.0-34.0); Mean Platelet Volume 11.6 fL (7.4-10.4); Monocytes # 0.7 10^3/uL (0.2-0.9); Monocytes % 8.1 %; Neutrophils # 7.21 10^3/uL (1.8-7.7); Neutrophils % 80.8 %; Nucleated Red Blood Cells % 0 %; Platelet Count 239 10^3/cmm (130-400); Red Blood Count 3.42 10^6/uL (4.1-5.3); Red Cell Distribution Width 14.4 % (12.1-15.1); White Blood Count 8.9 10^3/uL (4.0-10.0)
[2021-03-13 06:23] LABS: Alanine Aminotransferase 10 U/L (0-33); Albumin Level 2.6 g/dL (3.5-5.2); Alkaline Phosphatase 92 IU/L (35-105); Blood Urea Nitrogen 7 mg/dL (8-23); Calcium 8.4 mg/dL (8.5-10.5); Carbon Dioxide 29 mmol/L (22-29); Chloride 102 mmol/L (98-107); Globulin 3.6 g/dL (1.3-4.6); Glomerular Filtration Rate 361.1 mL/min (90-130); Glucose 83 mg/dL (65-115); Osmolality Calculated 291 mOsm/kg (285-295); Sodium 142 mmol/L (136-145); Total Bilirubin 0.4 mg/dL (0.15-1.2); Total Protein 6.2 g/dL (6.6-8.7)
[2021-03-13 06:28] LABS: Anion Gap 14.8 (5-19); Aspartate Amino Transferase 17 U/L (0-32); Potassium 3.8 mmol/L (3.5-5.1)
[2021-03-13 06:35] LABS: Glucose Point of Care 94 mg/dL (70-110)
[2021-03-13 06:39] LABS: Slide Review Slide Review Perform
[2021-03-13 06:54] LABS: Vancomycin Trough 20.8 ug/mL (10-15)
--- NOTE | 2021-03-13 08:04 | PC.NURSE ---
Called patient's life partner as requested by patient and let him know that patient is requesting that he comes and sees her today. He said to tell her he will be here to see her today when he can get a ride. Document Improvement Specialist notified patient.
[2021-03-13] MEDS: budesonide 0.5 mg/2 mL Neb 0.25 MG INHALATION ×2 (08:09→21:14)
[2021-03-13] MEDS: polyethylene glycol 3350 Pkt 17 gm PO (08:18)
[2021-03-13] MEDS: piperacillin-tazobactam 3.375 GM in sodium chloride 0.9% (plus) 50 ML IV ×3 (08:18→23:44)
[2021-03-13] MEDS: gabapentin 300 mg Capsule PO ×2 (08:19→17:24)
[2021-03-13] MEDS: baclofen 10 mg Tablet 20 MG PO (08:19)
[2021-03-13] MEDS: docusate sodium 100 mg Capsule PO ×2 (08:19→17:24)
[2021-03-13] MEDS: atenolol 50 mg Tablet PO ×2 (08:19→17:24)
[2021-03-13] MEDS: sucralfate 1 gm Tablet PO ×3 (08:19→17:24)
[2021-03-13] MEDS: methadone 10 mg Tablet PO (08:19)
--- NOTE | 2021-03-13 08:31 | PC.NURSE ---
Patient refused her nystatin and drank less than half her miralax
--- NOTE | 2021-03-13 08:34 | PC.NURSE ---
Notified Dr Gomez that patient is having severe anxiety. she was on 4l oxymask when shift started and now RT just turned her up to 6l oxymask. Her lungs are clear. She wants staff to stay in the room with her at all times. She wants her to come stay with her. She keeps saying the can't breath. can we please have something for anxiety? Manager Drug Safety then notified Dr Gomez that patient has now been turned up to 15l oxymask by RT. Manager Drug Safety received orders for Dilaudid 0.5mg IVP once and Ativan 1mg IVP once. Manager Drug Safety put orders in
[2021-03-13] MEDS: LORazepam 2 mg/mL INJ 1 mL 1 MG IVP (08:40)
[2021-03-13] MEDS: HYDROmorphone 1 mg/mL INJ 1 mL 0.5 MG IVP ×2 (08:40→17:25)
[2021-03-13] MEDS: vancomycin 1,250 MG/250 ML PIGGYBACK 200 MG IV ×3 (08:50→23:44)
--- NOTE | 2021-03-13 08:59 | PC.NURSE ---
Patient is now on 8l oxymask with saturation of 94% and heart rate of 92. Dr Gomez notified.
--- NOTE | 2021-03-13 09:05 | PC.NURSE ---
Addendum entered by Saundra Sylvester RN 03/13/21 09:47: Dr Gomez ordered Dilaudid Q8H instead of Q6H. he put order in Original Note: Per Dr Gomez, he is going to order Dilaudid 0.5mg Q6H IVP PRN. He said he will put order in.
--- NOTE | 2021-03-13 09:41 | PM.PN ---
Subjective Subjective: Interval history: No acute events overnight. Today morning patient had an event of anxiety and agitation which led to respiratory distress requiring 8 L oxygen mask to maintain saturation 92% which settled down after she received 0.5 of Ativan 0.5 of Dilaudid after that she required 4 L of oxygen to maintain saturation at 92%. Patient has remained afebrile Vitals/I&O/Wt Last Vital Signs Temp 98.0 F 03/13/21 07:28 Pulse 103 H 03/13/21 08:25 Resp 36 H 03/13/21 08:40 BP 142/72 03/13/21 07:28 Pulse Ox 96 03/13/21 08:40 03/12/21 03/13/21 03/13/21 22:59 06:59 14:59 Intake Total 160 / 2530.000 600 / 3130.000 590 / 590 Output Total 4250 / 4250 1200 / 5450 300 / 300 Balance -4090 / -1720.000 -600 / -2320.000 290 / 290 Physical Exam Narrative: EXAM NARRATIVE: Awake alert, mild distress due to her difficulty in breathing on 3 L oxygen through nasal cannula Skin is warm and dry. Dry mucous membranes. Eyes PERRL, extraocular muscles are intact Neck supple. No JVD Lungs bilateral fine crackles present in the lower zones Heart S1, S2, regular Abdomen soft, nontender, bowel sounds are present Extremities: severe bilateral arthropathic changes more pronounced on the right side, severe bilateral venous stasis and lymphedema, bilateral hyperemia. The left side seems to be stasis dermatitis, however the right side is more swollen and more warm. She has 1 ulcer on her heel and another one around medial malleolus. Mild serous discharge. No peripheral cyanosis. Urinary Catheter Management^: Garber: Cath Placed During This Visit: yes Reason for Continuing Indwelling Catheter: Other Urinary Catheter Date of Insertion: 03/10/21 Urinary Catheter Time of Insertion: 20:07 Data : 03/13/21 05:00 03/13/21 05:00 Micro: Microbiology 03/11/21 04:30 Wound Culture - Preliminary Ankle - #1 A&P Assessment and plan (1) Cellulitis: Status: Acute Qualifiers: Laterality: right Site of cellulitis: extremity Site of cellulitis of extremity: lower extremity Qualified Code(s): L03.115 - Cellulitis of right lower limb (2) Itgrgxb-Merwo-Kkbii disease-like deformity of foot: Status: Chronic (3) Substance abuse: Status: Acute (4) Methamphetamine use: Status: Chronic (5) Diabetic neuropathy associated with type 2 diabetes mellitus: Status: Acute (6) Diastolic CHF: Status: Acute (7) Diabetes mellitus, type II: Status: Chronic Qualifiers: Diabetes mellitus complication detail: with other arthropathy Diabetes mellitus complication status: with diabetic arthropathy Diabetes mellitus tank terminal gauger insulin use: without tank terminal gauger use Qualified Code(s): E11.618 - Type 2 diabetes mellitus with other diabetic arthropathy (8) Sepsis: Status: Acute Additional A&P Information 61 year old female with past medical history of Charcot Caryl tooth disease, diabetes, peripheral neuropathy, Charcot arthropathy, COPD, diastolic CHF, hypertension, history of drug abuse, previous admissions for sepsis, pneumonia, cellulitis and bacteremia who is presenting today with complaints of increased swelling and redness in the right lower extremity. Sepsis secondary to cellulitis and possible abscess: Cannot rule out osteomyelitis. White count elevated on admission, ESR, CRP elevated. MRI still awaited. Appreciate Dr. Darby's help. For now continue with vancomycin and Zosyn. MRSA positive in the past. For now we will continue the same antibiotics. Shortness of breath: Most likely secondary to congestive heart failure along with anxiety from most likely because of drug withdrawal. For now continue with oral Lasix. If needed will give extra Lasix in the afternoon. Strict input output charting. DuoNebs every 6 hour, budesonide twice daily. Keep saturation 92%. Start patient on Dilaudid 0.5 mg every 8 hours as needed. Hyponatremia: Resolved. Diabetes. Insulin sliding scale. Monitor blood sugars. Hypertension: Goal blood pressure less than 140/90 mmHg. We will continue to monitor. History of drug abuse: On last admission patient was intubated because of drug withdrawal. There is a confusion of what medication she is on. She is supposed to be on gabapentin 300 twice daily, tizanidine 4 mg p.o. 3 times daily as needed, Celexa while medications including venlafaxine, BuSpar, baclofen was stopped on last discharge but right now as per med rec she is on BuSpar 3 times daily as needed, baclofen 40 mg daily, Compazine as needed and he states he takes methadone 10 mg as well. To avoid drug withdrawal we will start patient on methadone 10 mg oral daily. Dilaudid 0.5 every 8 hours as needed Awaiting medical reconciliation through pharmacy, primary care's office. History of diastolic heart failure. History of COPD. Lovenox for DVT prophylaxis. Full code. Carb consistent cardiac diet. Attestations Medical Necessity Statement*: Hospitalization for management of sepsis secondary cellulitis and possible abscess, MRI awaited, drug withdrawal from polypharmacy. Time Spent in Patient Care: Greater than 35 minutes (>than 50% of time spent in counselling and/or direct pt care on unit). 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
--- NOTE | 2021-03-13 10:13 | PC.NURSE ---
patient's oxygen turned down to 4l oxymask by keno writer / runner. Gretel DAWSON and Dr Gomez notified.
[2021-03-13 10:44] LABS: Glucose Point of Care 120 mg/dL (70-110)
--- NOTE | 2021-03-13 11:40 | PC.SOCIAL ---
IMM update Pg 2 of IMM updated. Copy provided to patient.
--- NOTE | 2021-03-13 12:26 | PC.NURSE ---
MRI called and said they need to reschedule MRI for tomorrow at 1015 due to transportation. Web Content & Social Media Manager notified Dr Gomez.
--- NOTE | 2021-03-13 13:03 | PC.NURSE ---
Life Partner at bedside.
[2021-03-13] MEDS: iron sucrose 200 MG in sodium chloride 0.9% (100 ml) 100 ML 220 MG IV (13:23)
--- NOTE | 2021-03-13 16:04 | PM.PN ---
Subjective Subjective: Interval history: Patient was a bit sleepy today, continues to have pain Vitals/I&O/Wt Last Vital Signs Temp 97.9 F 03/13/21 15:29 Pulse 90 03/13/21 15:29 Resp 19 H 03/13/21 15:29 BP 166/81 03/13/21 15:29 Pulse Ox 93 03/13/21 15:29 03/13/21 03/13/21 03/13/21 06:59 14:59 22:59 Intake Total 600 / 3130.000 950 / 950 Output Total 1200 / 5450 300 / 300 Balance -600 / -2320.000 650 / 650 Physical Exam Narrative: EXAM NARRATIVE: Right leg: Cellulitis is improved, has chronic lymphedema, right foot was wrapped Urinary Catheter Management^: Garber: Cath Placed During This Visit: yes Reason for Continuing Indwelling Catheter: Other Urinary Catheter Date of Insertion: 03/10/21 Urinary Catheter Time of Insertion: 20:07 Data : 03/13/21 05:00 03/13/21 05:00 Micro: Microbiology 03/13/21 05:50 Gram Stain - Final Sputum - Expectorated Sputum A&P Assessment and plan (1) Cellulitis: 61-year-old female with history of Charcot's foot, diabetes, peripheral neuropathy who presents with cellulitis superimposed on chronic lymphedema in the right leg. Patient's wounds have minimal necrotic tissue which was debrided at the bedside yesterday Continue IV vancomycin and Zosyn, WBC is down to 8.9 from [address] left foot showed cellulitis but no evidence of abscess or osteomyelitis and significant Charcot foot arthropathy Recommend wound care with Celestina once daily after debridement. Hopefully this patient can be discharged home on oral antibiotics in the next 24 to 48 hours Status: Acute Qualifiers: Laterality: right Site of cellulitis: extremity Site of cellulitis of extremity: lower extremity Qualified Code(s): L03.115 - Cellulitis of right lower limb Attestations Medical Necessity Statement*: Cellulitis right leg will need 1 more night of inpatient stay Coding Level of Care Code Acute Import Export Coordinator for [facility] Diagnoses Cellulitis L03.115 Laterality: right Site of cellulitis: extremity Site of cellulitis of extremity: lower extremity
--- NOTE | 2021-03-13 16:09 | PC.RESP ---
Smoking Cessation information sent to patient.
[2021-03-13 17:05] LABS: Glucose Point of Care 106 mg/dL (70-110)
[2021-03-13 17:18] LABS: ABG PCO2 56.2 mmHg (35-45); ABG PH Result 7.42 (7.35-7.45); Alveolar-Arterial Oxygen Gradi 2.1 mmHg (5-10); Arterial Blood Gas Hematocrit 35.5 % (37-47); Base Excess ABG 9.8 mmol/L (-2.0-2.0); Blood Gas Allen Test Pos; Blood Gas Operator Identificat GD; Blood Gas Sample Site Radial, left; Blood Gas Sample Type Arterial; Carboxyhemoglobin 1.2 %THgb (0.4-20.1); HCO3 ABG 36.1 mmol/L (22-26); HGB O2 Sat 91.1 % (95-100); Ionized Calcium Level - ABG 1.2 mmol/L (1.1-1.4); Methemoglobin 0.8 % (0.4-1.5); Oxygen Device OXY MASK; Oxygen Saturation ABG 92.9; PO2 ABG 64.3 mmHg (80.0-100.0); Potassium Level - ABG 3.4 mmol/L (3.5-5.0); Total Hemoglobin 11.6 g/dL (12-16)
[2021-03-13] MEDS: FUROsemide 10 mg/mL SDV 4mL 40 MG IVP (17:26)
[2021-03-13 18:02] LABS: NT Pro B Type Natriuretic Pept 2571 pg/mL (0-125)
[2021-03-13 20:32] LABS: Glucose Point of Care 154 mg/dL (70-110)
[2021-03-13] MEDS: nystatin 100,000 unit/mL UDC 5 mL 500000 UNIT PO (21:10)
[2021-03-13] MEDS: enoxaparin 40 mg/0.4 mL Syringe SUBCUT (22:15)
[2021-03-14] VITALS (14 sets, daily range): BP systolic 109–159; BP diastolic 70–80; PULSE 61–89; RESP 15–22; TEMP 36.6–37.1; O2SAT 90–99
[2021-03-14] MEDS: ipratropium-albuterol 3 mL Neb INHALATION ×4 (02:37→20:19)
[2021-03-14] MEDS: HYDROmorphone 1 mg/mL INJ 1 mL 0.5 MG IVP ×3 (02:41→21:21)
[2021-03-14] MEDS: famotidine 20 mg/2 mL INJ IVP ×2 (04:16→18:15)
[2021-03-14 05:22] LABS: Basophils % 0.4 %; Eosinophils # 0.1 10^3/uL (0.0-0.8); Eosinophils % 1.1 %; Hematocrit 35.6 % (37.0-47.0); Hemoglobin 11.2 g/dL (11.5-15.3); Lymphocytes # 0.8 10^3/uL (0.8-4.8); Lymphocytes % 7.3 %; Mean Corpuscular HGB Conc 31.5 g/dL (30.0-36.0); Mean Corpuscular Hemoglobin 31.1 pg (28.0-34.0); Mean Corpuscular Volume 98.9 fL (81-99); Mean Platelet Volume 10.7 fL (7.4-10.4); Monocytes # 0.9 10^3/uL (0.2-0.9); Monocytes % 8.1 %; Neutrophils # 8.86 10^3/uL (1.8-7.7); Neutrophils % 82.4 %; Nucleated Red Blood Cells % 0 %; Platelet Count 286 10^3/cmm (130-400); Red Cell Distribution Width 14.3 % (12.1-15.1); White Blood Count 10.8 10^3/uL (4.0-10.0)
[2021-03-14 06:35] LABS: Glucose Point of Care 102 mg/dL (70-110)
--- NOTE | 2021-03-14 07:00 | MRR_ITS ---
PROCEDURE INFORMATION: Exam: MR Right Lower Extremity Other Than Joint Without and With Contrast; Foot Exam date and time: 03/14/2021 10:56 AM Age: 61 years old Clinical indication: Cellulitis; Foot; Right; Additional info: Cellulitis, om? , Abscess? TECHNIQUE: Imaging protocol: MR of the Right lower extremity without and with intravenous contrast. Exam focused on the foot. Contrast material: MULTIHANCE; Contrast volume: 12 ml; Contrast route: INTRAVENOUS (IV); COMPARISON: CT foot RT w con [id number] 03/11/2021 6:40 PM FINDINGS: The examination is somewhat limited by patient positioning and motion degradation. There is diffuse soft tissue swelling and subcutaneous edema with associated enhancement and overlying skin thickening, most severe about the ankle and along the dorsum of the foot. There is a deep soft tissue ulceration along the medial aspect of the talus with associated phlegmonous change and ill-defined loculated fluid. No organized soft tissue collection is identified. There is no soft tissue mass. No acute tendon or ligament injury is identified. There is no MR evidence of acute fracture or dislocation. There is moderate deformity, disorganization and fragmentation about the hindfoot and midfoot, consistent with chronic Charcot neuropathy. No acute erosive or destructive changes are seen. Again noted is a large cystic lesion in the talus, which appears to communicate with the overlying soft tissue defect (series 17, image 22) and may represent a chronic abscess and/or sequelae of chronic osteomyelitis. Bone marrow signal is otherwise normal. MR/MR foot RT wo/w con [id number] IMPRESSION: 1. Large cystic lesion in the talus, which appears to communicate with an overlying soft tissue ulceration and may represent a chronic abscess and/or sequelae of chronic osteomyelitis. No MR evidence of acute osteomyelitis. 2. Additional findings, as above.
[2021-03-14 07:44] LABS: Alanine Aminotransferase 9 U/L (0-33); Albumin Level 2.6 g/dL (3.5-5.2); Alkaline Phosphatase 101 IU/L (35-105); Anion Gap 12.1 (5-19); Aspartate Amino Transferase 10 U/L (0-32); Blood Urea Nitrogen 6 mg/dL (8-23); Calcium 8.5 mg/dL (8.5-10.5); Carbon Dioxide 33 mmol/L (22-29); Chloride 95 mmol/L (98-107); Globulin 3.6 g/dL (1.3-4.6); Glucose 89 mg/dL (65-115); Osmolality Calculated 281 mOsm/kg (285-295); Potassium 3.1 mmol/L (3.5-5.1); Sodium 137 mmol/L (136-145); Total Bilirubin 0.4 mg/dL (0.15-1.2); Total Protein 6.2 g/dL (6.6-8.7)
[2021-03-14 07:45] LABS: Glomerular Filtration Rate 803.6 mL/min (90-130)
[2021-03-14] MEDS: budesonide 0.5 mg/2 mL Neb 0.25 MG INHALATION ×2 (08:15→20:21)
[2021-03-14] MEDS: methadone 10 mg Tablet PO (08:56)
[2021-03-14] MEDS: docusate sodium 100 mg Capsule PO ×2 (08:56→18:04)
[2021-03-14] MEDS: piperacillin-tazobactam 3.375 GM in sodium chloride 0.9% (plus) 50 ML IV ×2 (08:56→15:26)
[2021-03-14] MEDS: vancomycin 1,250 MG/250 ML PIGGYBACK 200 MG IV ×2 (08:57→15:30)
[2021-03-14] MEDS: baclofen 10 mg Tablet 20 MG PO ×2 (08:57→18:04)
[2021-03-14] MEDS: gabapentin 300 mg Capsule PO ×2 (08:57→18:04)
[2021-03-14] MEDS: nystatin 100,000 unit/mL UDC 5 mL 500000 UNIT PO ×4 (08:57→21:20)
[2021-03-14] MEDS: sucralfate 1 gm Tablet PO ×4 (08:57→21:20)
[2021-03-14] MEDS: atenolol 50 mg Tablet PO ×2 (08:57→18:04)
[2021-03-14] MEDS: polyethylene glycol 3350 Pkt 17 gm PO (08:58)
--- NOTE | 2021-03-14 10:03 | PC.NURSE ---
Patient taken to MRI via gurney by ambulance personal.
[2021-03-14] MEDS: gadobenate dimeglumine 20 mL vial IV (10:59)
--- NOTE | 2021-03-14 11:00 | PC.NURSE ---
notified Dr Gomez that patient has wound culture results Staphylococcus aureus Per Fernando in lab.
[2021-03-14] MEDS: iron sucrose 200 MG in sodium chloride 0.9% (100 ml) 100 ML 220 MG IV (13:22)
[2021-03-14 13:28] LABS: Glucose Point of Care 157 mg/dL (70-110)
[2021-03-14] MEDS: potassium chloride ER 20 mEq Tablet 40 MEQ PO (13:34)
[2021-03-14] MEDS: escitalopram 10 mg Tablet PO (13:34)
[2021-03-14] MEDS: BuSPIRONE 10 mg Tablet 5 MG PO ×2 (15:30→21:20)
--- NOTE | 2021-03-14 17:13 | P.PN_ITS ---
Subjective Subjective: Interval history: Documents overnight. Patient is on 4 L oxygen supplementation with nasal cannula satting 92%. She was groggy during the day. Methadone was stopped after that she she woke up. She denies any nausea vomiting, headache. Cellulitis seems to be improving. Medical reconciliation was done as per the med list from primary care's office and home health serv ices. Vitals/I&O/Wt Last Vital Signs Temp 98.7 F 03/14/21 16:00 Pulse 78 03/14/21 16:00 Resp 20 H 03/14/21 16:00 BP 136/75 03/14/21 16:00 Pulse Ox 92 03/14/21 16:00 03/14/21 03/14/21 03/14/21 06:59 14:59 22:59 Intake Total 300 / 1810 1610 / 1610 Output Total 500 / 3600 Balance -200 / -1790 1610 / 1610 Physical Exam Narrative: EXAM NARRATIVE: Awake alert, mild distress due to her difficulty in breathing on 3 L oxygen through nasal cannula Skin is warm and dry. Dry mucous membranes. Eyes PERRL, extraocular muscles are intact Neck supple. No JVD Lungs bilateral fine crackles present in the lower zones Heart S1, S2, regular Abdomen soft, nontender, bowel sounds are present Extremities: severe bilateral arthropathic changes more pronounced on the right side, severe bilateral venous stasis and lymphedema, bilateral hyperemia. The left side seems to be stasis dermatitis, however the right side is more swollen and more warm. She has 1 ulcer on her heel and another one around medial malleolus. Mild serous discharge. No peripheral cyanosis. Urinary Catheter Management^: Garber: Cath Placed During This Visit: yes Reason for Continuing Indwelling Catheter: Assist healing open wound Urinary Catheter Date of Insertion: 03/10/21 Urinary Catheter Time of Insertion: 20:07 Data : 03/15/21 05:36 03/15/21 05:36 Micro: Microbiology 03/11/21 04:30 Wound Culture - Preliminary Ankle - #1 Staphylococcus aureus Group g streptococcus 03/13/21 05:50 Gram Stain - Final Sputum - Expectorated Sputum Sputum Culture - Preliminary A&P Assessment and plan (1) Cellulitis: Status: Acute Qualifiers: Laterality: right Site of cellulitis: extremity Site of cellulitis of extremity: lower extremity Qualified Code(s): L03.115 - Cellulitis of right lower limb (2) Zqtejvz-Wynvx-Qrlzr disease-like deformity of foot: Status: Chronic (3) Substance abuse: Status: Acute (4) Methamphetamine use: Status: Chronic (5) Diabetic neuropathy associated with type 2 diabetes mellitus: Status: Acute (6) Diastolic CHF: Status: Acute (7) Diabetes mellitus, type II: Status: Chronic Qualifiers: Diabetes mellitus complication detail: with other arthropathy Diabetes mellitus complication status: with diabetic arthropathy Diabetes mellitus intermediate frame tender insulin use: without fdc use Qualified Code(s): E11.618 - Type 2 diabetes mellitus with other diabetic arthropathy (8) Sepsis: Status: Acute Additional A&P Information 61 year old female with past medical history of Charcot Caryl tooth disease, diabetes, peripheral neuropathy, Charcot arthropathy, COPD, diastolic CHF, hypertension, history of drug abuse, previous admissions for sepsis, pneumonia, cellulitis and bacteremia who is presenting today with complaints of increased swelling and redness in the right lower extremity. Sepsis secondary to cellulitis and possible abscess: Cannot rule out osteomyelitis. White count elevated on admission, ESR, CRP elevated. MRI still awaited. Appreciate Dr. Darby's help. For now continue with vancomycin and Zosyn. MRSA positive in the past. For now we will continue the same antibiotics. We will follow the culture results and change antibiotics as per sensitivities. Shortness of breath: Most likely secondary to congestive heart failure along with anxiety from most likely because of drug withdrawal. For now continue with oral Lasix. If needed will give extra Lasix in the afternoon. Strict input output charting. DuoNebs every 6 hour, budesonide twice daily. Keep saturation 92%. Start patient on Dilaudid 0.5 mg every 8 hours as needed. Hyponatremia: Resolved. Diabetes. Insulin sliding scale. Monitor blood sugars. Hypertension: Goal blood pressure less than 140/90 mmHg. We will continue to monitor. History of drug abuse: On last admission patient was intubated because of drug withdrawal. There is a confusion of what medication she is on. She is supposed to be on gabapentin 300 3 times daily, tizanidine 4 mg p.o. 3 times a day, Celexa 10 mg every other day, BuSpar 5 mg 3 times a day baclofen 20 mg twice daily. All other medications have been stopped. To avoid further withdrawal patient will be on Dilaudid 0.5 mg every 8 hours as needed. History of diastolic heart failure. History of COPD. Lovenox for DVT prophylaxis. Full code. Carb consistent cardiac diet. Attestations Medical Necessity Statement*: Requires further hospitalization for management of cellulitis, drug withdrawal. Time Spent in Patient Care: Greater than 35 minutes (>than 50% of time spent in counselling and/or direct pt care on unit) . Coding Level of Care Code Acute Company Marker for [facility] Diagnoses Cellulitis L03.115 Laterality: right Site of cellulitis: extremity Site of cellulitis of extremity: lower extremity Evibmcg-Niufr-Bqgrf disease-like deformity of foot G60.0 Substance abuse F19.10 Methamphetamine use F15.10 Diabetic neuropathy associated with type 2 diabetes mellitus E11.40 Diastolic CHF I50.30 Diabetes mellitus, type II E11.618 Diabetes mellitus complication detail: with other arthropathy Diabetes mellitus complication status: with diabetic arthropathy Diabetes mellitus fdc insulin use: without intermediate frame tender use Sepsis A41.9
[2021-03-14 17:31] LABS: Glucose Point of Care 136 mg/dL (70-110)
--- NOTE | 2021-03-14 17:53 | P.PN_ITS ---
Subjective Subjective: Interval history: Patient denies any leg pain, no fevers or chills Vitals/I&O/Wt Last Vital Signs Temp 98.7 F 03/14/21 16:00 Pulse 78 03/14/21 16:00 Resp 20 H 03/14/21 16:00 BP 136/75 03/14/21 16:00 Pulse Ox 92 03/14/21 16:00 03/14/21 03/14/21 03/14/21 06:59 14:59 22:59 Intake Total 300 / 1810 1610 / 1610 Output Total 500 / 3600 Balance -200 / -1790 1610 / 1610 Physical Exam Narrative: EXAM NARRATIVE: Right leg: Erythema significantly improved, chronic lymphedema present, dressings dry and intact Urinary Catheter Management^: Garber: Cath Placed During This Visit: yes Reason for Continuing Indwelling Catheter: Assist healing open wound Urinary Catheter Date of Insertion: 03/10/21 Urinary Catheter Time of Insertion: 20:07 Data : 03/14/21 04:38 03/14/21 07:04 Micro: Microbiology 03/11/21 04:30 Wound Culture - Preliminary Ankle - #1 Staphylococcus aureus Group g streptococcus 03/13/21 05:50 Gram Stain - Final Sputum - Expectorated Sputum Sputum Culture - Preliminary A&P Assessment and plan (1) Cellulitis: 61-year-old female with history of Charcot's foot, diabetes, peripheral neuropathy who presents with cellulitis superimposed on chronic lymphedema in the right leg. Patient's wounds have minimal necrotic tissue which was debrided at the bedside yesterday Continue IV vancomycin and Zosyn, WBC is down from 18.[address] left foot showed cellulitis but no evidence of abscess or osteomyelitis and significant Charcot foot arthropathy MRI left foot showed no evidence of acute osteomyelitis, cystic mass near the talus Recommend wound care with Celestina once daily after debridement. 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
[2021-03-14 20:32] LABS: Glucose Point of Care 174 mg/dL (70-110)
[2021-03-14] MEDS: LORazepam 2 mg/mL INJ 1 mL 1 MG IVP (21:21)
[2021-03-15] VITALS (8 sets, daily range): BP systolic 127–170; BP diastolic 68–97; PULSE 63–96; RESP 16–20; TEMP 36.7–36.8; O2SAT 87–98
[2021-03-15] MEDS: enoxaparin 40 mg/0.4 mL Syringe SUBCUT (00:47)
[2021-03-15] MEDS: vancomycin 1,250 MG/250 ML PIGGYBACK 200 MG IV ×2 (00:47→08:30)
[2021-03-15] MEDS: piperacillin-tazobactam 3.375 GM in sodium chloride 0.9% (plus) 50 ML IV ×2 (02:16→10:00)
[2021-03-15] MEDS: HYDROmorphone 1 mg/mL INJ 1 mL 0.5 MG IVP ×2 (04:34→10:37)
[2021-03-15] MEDS: famotidine 20 mg/2 mL INJ IVP (04:34)
[2021-03-15 05:56] LABS: Basophils % 0.4 %; Eosinophils # 0.2 10^3/uL (0.0-0.8); Eosinophils % 1.6 %; Hematocrit 37.9 % (37.0-47.0); Hemoglobin 11.9 g/dL (11.5-15.3); Lymphocytes # 0.9 10^3/uL (0.8-4.8); Lymphocytes % 9.5 %; Mean Corpuscular HGB Conc 31.4 g/dL (30.0-36.0); Mean Corpuscular Hemoglobin 31.1 pg (28.0-34.0); Mean Platelet Volume 9.7 fL (7.4-10.4); Monocytes # 0.7 10^3/uL (0.2-0.9); Monocytes % 7.5 %; Neutrophils # 7.89 10^3/uL (1.8-7.7); Neutrophils % 79.4 %; Nucleated Red Blood Cells % 0 %; Platelet Count 324 10^3/cmm (130-400); Red Blood Count 3.83 10^6/uL (4.1-5.3); Red Cell Distribution Width 14.3 % (12.1-15.1); White Blood Count 9.9 10^3/uL (4.0-10.0)
[2021-03-15 06:19] LABS: Vancomycin Random 16.6 ug/mL (20.0-40.0)
[2021-03-15 06:20] LABS: Alanine Aminotransferase 12 U/L (0-33); Albumin Level 2.9 g/dL (3.5-5.2); Alkaline Phosphatase 124 IU/L (35-105); Anion Gap 12.2 (5-19); Aspartate Amino Transferase 15 U/L (0-32); Blood Urea Nitrogen 4 mg/dL (8-23); Calcium 8.8 mg/dL (8.5-10.5); Carbon Dioxide 33 mmol/L (22-29); Chloride 99 mmol/L (98-107); Glucose 115 mg/dL (65-115); Osmolality Calculated 290 mOsm/kg (285-295); Potassium 3.2 mmol/L (3.5-5.1); Sodium 141 mmol/L (136-145); Total Bilirubin 0.6 mg/dL (0.15-1.2); Total Protein 6.9 g/dL (6.6-8.7)
[2021-03-15 06:21] LABS: Glomerular Filtration Rate 803.6 mL/min (90-130)
[2021-03-15 06:28] LABS: Glucose Point of Care 110 mg/dL (70-110)
[2021-03-15] MEDS: gabapentin 300 mg Capsule PO (08:31)
[2021-03-15] MEDS: baclofen 10 mg Tablet 20 MG PO (08:31)
[2021-03-15] MEDS: polyethylene glycol 3350 Pkt 17 gm PO (08:31)
[2021-03-15] MEDS: FUROsemide 40 mg Tablet PO (08:31)
[2021-03-15] MEDS: docusate sodium 100 mg Capsule PO (08:31)
[2021-03-15] MEDS: BuSPIRONE 10 mg Tablet 5 MG PO (08:31)
[2021-03-15] MEDS: sucralfate 1 gm Tablet PO (08:31)
[2021-03-15] MEDS: atenolol 50 mg Tablet PO (08:31)
--- NOTE | 2021-03-15 11:29 | PC.SOCIAL ---
*IMM UPDATE* Gave patient IMM update. Provided copy of pg 2 of IMM. 03/15/21 @ 0926 Initialed, dated, timed and placed in chart.
[2021-03-15 11:46] LABS: Glucose Point of Care 126 mg/dL (70-110)
--- NOTE | 2021-03-15 11:58 | P.DS_ITS ---
Discharge Providers Date of Admission: 03/10/21 22:01 Date of Discharge: March 15, 2021 Attending Provider at Admission: Luis Alberto Perez Attending Provider at Discharge: Eduardo Pineda MD Primary Care Provider: Debbie Dietz DO Diagnoses at Discharge Discharge Diagnosis (1) Cellulitis: Status: Acute Qualifiers: Laterality: right Site of cellulitis: extremity Site of cellulitis of extremity: lower extremity Qualified Code(s): L03.115 - Cellulitis of right lower limb Reason for Visit Reason for Visit: CELLULITIS Hospital Course Hospital Course Polina Snyder is a 61 year old female with past medical history of Charcot Caryl tooth disease, diabetes, peripheral neuropathy, Charcot arthropathy, COPD, diastolic CHF, hypertension, previous admissions for sepsis, pneumonia, cellulitis and bacteremia who is presenting today with complaints of increased swelling and redness in the right lower extremity which was noticed to 3 days ago with progressive worsening. She reports that the area is very warm and tender. She has 2 ulcers in that foot. She reports having fever yesterday. S he denies chest pain, shortness of breath, cough, palpitations, nausea or vomiting, diarrhea. She reports similar episodes in the past. She has seen civil geotechnical engineer Dr. Garrido before. She was admitted to hospital for treatment of sepsis secondary to cellulitis. She started on broad-spectrum antibiotics. Surgery was consulted and she underwent bedside debridement. MRI was done to rule out cellulitis. Liver concern for chronic osteomyelitis. Patient responded well to the treatment and the cellulitis improved. Wound culture grew MRSA and group B strep. Her hospitalization was complicated by drug withdrawal most likely to polypharmacy psychiatric medications which she takes at home along with possible methadone which she takes as an outpatient. Her medical reconciliation was done through her pharmacy, home health services and primary care's office. Her medications were adjusted as per her prior discharge 2 months ago. She remained hemodynamically stable and calm on the current medication list. She is to take BuSpar 5 mg 3 times a day, baclofen 20 mg twice daily, gabapentin 10 mg 3 times a day present as needed. She has been advised in detail to avoid any pain medications and to follow-up with pain clinic for proper titration of medications. She is advised against taking medication which are not prescribed to her. She is discharged in medically stable condition with advice to take linezolid as per the culture results for 7 more days. Patient's care plan was discussed in detail with both patient and her caregivers home health services. Physical Exam Urinary Catheter Management^: Garber: Cath Placed During This Visit: yes Reason for Continuing Indwelling Catheter: Other Urinary Catheter Date of Insertion: 03/10/21 Urinary Catheter Time of Insertion: 20:07 Discharge Data Data Completed and Pending: Completed Studies During Hospitalization Category Date Time Status CT foot RT w con [id number] Routine Cat Scan 03/11/21 15:18 Completed XR chest 1V leslie ble [id number] Routine Exams 03/12/21 16:22 Completed XR chest 1V leslie ble [id number] Urgent Exams 03/10/21 19:01 Completed XR foot RT min 3V * [id number] Stat Exams 03/10/21 19:06 Com[place] RT wo/[place] [id number] Routine MRI 03/14/21 07:00 Completed Pending at discharge Category Date Time Status Blood Culture Sta t Lab 03/10/21 19:19 Results Labs from last 24 hours 03/15/21 03/15/21 03/15/21 11:38 06:25 05:36 WBC RBC Hgb Hct MCV MCH MCHC RDW Plt Count MPV Neut % (Auto) Lymph % (Auto) Isabela % (Auto) Eos % (Auto) Baso % (Auto) Neut # (Auto) Lymph # (Auto) Isabela # (Auto) Eos # (Auto) Baso # (Auto) Nucleated RBC % (a uto) Nucleated RBCs # Sodium Potassium Chloride Carbon Dioxide Anion Gap BUN Creatinine GFR Calculation Glucose POC Glucose 126 H 110 Calculated Osmolal ity Calcium Total Bilirubin AST ALT Alkaline Phosphata se Total Protein Albumin Globulin Random Vancomycin 16.6 L 03/15/21 03/15/21 03/14/21 05:36 05:36 20:22 WBC 9.9 RBC 3.83 L Hgb 11.9 Hct 37.9 MCV 99.0 MCH 31.1 MCHC 31.4 RDW 14.3 Plt Count 324 MPV 9.7 Neut % (Auto) 79.4 Lymph % (Auto) 9.5 Isabela % (Auto) 7.5 Eos % (Auto) 1.6 Baso % (Auto) 0.4 Neut # (Auto) 7.89 H Lymph # (Auto) 0.9 Isabela # (Auto) 0.7 Eos # (Auto) 0.2 Baso # (Auto) 0.0 Nucleated RBC % (a uto) 0 Nucleated RBCs # 0.0 Sodium 141 Potassium 3.2 L Chloride 99 Carbon Dioxide 33 H Anion Gap 12.2 BUN 4 L Creatinine 0.1 L GFR Calculation 803.6 H Glucose 115 POC Glucose 174 H Calculated Osmolal ity 290 Calcium 8.8 Total Bilirubin 0.6 AST 15 ALT 12 Alkaline Phosphata se 124 H Total Protein 6.9 Albumin 2.9 L Globulin 4.0 Random Vancomycin 03/14/21 03/14/21 17:21 13:13 WBC RBC Hgb Hct MCV MCH MCHC RDW Plt Count MPV Neut % (Auto) Lymph % (Auto) Isabela % (Auto) Eos % (Auto) Baso % (Auto) Neut # (Auto) Lymph # (Auto) Isabela # (Auto) Eos # (Auto) Baso # (Auto) Nucleated RBC % (a uto) Nucleated RBCs # Sodium Potassium Chloride Carbon Dioxide Anion Gap BUN Creatinine GFR Calculation Glucose POC Glucose 136 H 157 H Calculated Osmolal ity Calcium Total Bilirubin AST ALT Alkaline Phosphata se Total Protein Albumin Globulin Random Vancomycin Addt'l Data from Hospital Stay: Laboratory Results WBC 9.9 10^3/uL (4.0- 10.0) 03/15/21 05:36 RBC 3.83 10^6/uL (4.1 -5.3) L 03/15/21 05:36 Hgb 11.9 g/dL (11.5-1 5.3) 03/15/21 05:36 Hct 37.9 % (37.0-47.0 ) 03/15/21 05:36 MCV 99.0 fL (81-99) 03/15/21 05:36 MCH 31.1 pg (28.0-34. 0) 03/15/21 05:36 MCHC 31.4 g/dL (30.0-3 6.0) 03/15/21 05:36 RDW 14.3 % (12.1-15.1 ) 03/15/21 05:36 Plt Count 324 10^3/cmm (130 -400) 03/15/21 05:36 MPV 9.7 fL (7.4-10.4) 03/15/21 05:36 Neut % (Auto) 79.4 % 03/15/21 05:36 Lymph % (Auto) 9.5 % 03/15/21 05:36 Isabela % (Auto) 7.5 % 03/15/21 05:36 Eos % (Auto) 1.6 % 03/15/21 05:36 Baso % (Auto) 0.4 % 03/15/21 05:36 Neut # (Auto) 7.89 10^3/uL (1.8 -7.7) H 03/15/21 05:36 Lymph # (Auto) 0.9 10^3/uL (0.8- 4.8) 03/15/21 05:36 Isabela # (Auto) 0.7 10^3/uL (0.2- 0.9) 03/15/21 05:36 Eos # (Auto) 0.2 10^3/uL (0.0- 0.8) 03/15/21 05:36 Baso # (Auto) 0.0 10^3/uL (0.0- 0.1) 03/15/21 05:36 Nucleated RBC % (a uto) 0 % 03/15/21 05:36 Nucleated RBCs # 0.0 /100WBC 03/15/21 05:36 ESR 74 mm/hr (0-15) H 03/11/21 20:47 Specimen Type Arterial 03/13/21 17:02 Sample Site Radial, left 03/13/21 17:02 ABG pH 7.42 (7.35-7.45) 03/13/21 17:02 ABG pCO2 56.2 mmHg (35-45) H 03/13/21 17:02 ABG pO2 64.3 mmHg (80.0-1 00.0) L 03/13/21 17:02 ABG HCO3 36.1 mmol/L (22-2 6) H 03/13/21 17:02 ABG O2 Saturation 92.9 03/13/21 17:02 ABG Base Excess 9.8 mmol/L (-2.0- 2.0) H 03/13/21 17:02 Abdoulaye Test Pos 03/13/21 17:02 A-a O2 Gradient 2.1 mmHg (5-10) L 03/13/21 17:02 Hematocrit 35.5 % (37-47) L 03/13/21 17:02 Hgb O2 Saturation 91.1 % (95-100) L 03/13/21 17:02 Carboxyhemoglobin 1.2 %THgb (0.4-20 .1) 03/13/21 17:02 Methemoglobin 0.8 % (0.4-1.5) 03/13/21 17:02 Total Hemoglobin 11.6 g/dL (12-16) L 03/13/21 17:02 Sodium 141.0 mmol/L (131 -143) 03/13/21 17:02 Potassium 3.4 mmol/L (3.5-5 .0) L 03/13/21 17:02 Glucose 95.0 mg/dL (70-11 5) 03/13/21 17:02 Ionized Calcium 1.2 mmol/L (1.1-1 .4) 03/13/21 17:02 O2 Delivery Device Oxy mask 03/13/21 17:02 O2 Liters/Min 5.0 % 03/13/21 17:02 FiO2 26.0 % 03/10/21 19:25 Pulmonary Specialist ID Gd 03/13/21 17:02 Sodium 141 mmol/L (136-1 45) 03/15/21 05:36 Potassium 3.2 mmol/L (3.5-5 .1) L 03/15/21 05:36 Chloride 99 mmol/L (98-107 ) 03/15/21 05:36 Carbon Dioxide 33 mmol/L (22-29) H 03/15/21 05:36 Anion Gap 12.2 (5-19) 03/15/21 05:36 BUN 4 mg/dL (8-23) L 03/15/21 05:36 Creatinine 0.1 mg/dL (0.5-0. 9) L 03/15/21 05:36 GFR Calculation 803.6 mL/min (90- 130) H 03/15/21 05:36 Glucose 115 mg/dL (65-115 ) 03/15/21 05:36 POC Glucose 126 mg/dL (70-110 ) H 03/15/21 11:38 Calculated Osmolal ity 290 mOsm/kg (285- 295) 03/15/21 05:36 Lactate 1.9 mmol/L (0.5-2 .2) 03/10/21 19:33 Calcium 8.8 mg/dL (8.5-10 .5) 03/15/21 05:36 Phosphorus 1.8 mg/dL (2.5-4. 5) L 03/11/21 20:47 Magnesium 1.6 mg/dL (1.7-2. 3) L 03/11/21 20:47 Iron 11 ug/dL (37-145) L 03/11/21 20:47 TIBC 227 mcg/dl 03/11/21 20:47 % Saturation 4.8 % (20-50) L 03/11/21 20:47 Unsat Iron Binding 216 ug/dL (112-34 7) 03/11/21 20:47 Total Bilirubin 0.6 mg/dL (0.15-1 .2) 03/15/21 05:36 AST 15 U/L (0-32) 03/15/21 05:36 ALT 12 U/L (0-33) 03/15/21 05:36 Alkaline Phosphata se 124 IU/L (35-105) H 03/15/21 05:36 C-Reactive Protein 325.7 mg/L (0.0-4 .9) H 03/11/21 20:47 NT-Pro-B Natriuret Pep 2571 pg/mL (0-125 ) H 03/13/21 05:00 Total Protein 6.9 g/dL (6.6-8.7 ) 03/15/21 05:36 Albumin 2.9 g/dL (3.5-5.2 ) L 03/15/21 05:36 Globulin 4.0 g/dL (1.3-4.6 ) 03/15/21 05:36 Procalcitonin 0.44 ng/mL (0-0.5 ) 03/11/21 20:47 TSH 1.10 uIU/mL (0.27 -4.20) 03/11/21 20:47 Urine Color Yellow (Yellow) 03/10/21 20:04 Urine Appearance Clear (CLEAR) 03/10/21 20:04 Urine pH 7 (5-7) 03/10/21 20:04 Ur Specific Gravit y 1.010 (1.005-1.0 30) 03/10/21 20:04 Urine Protein Neg (Negative) 03/10/21 20:04 Urine Glucose (UA) Norm (Normal) 03/10/21 20:04 Urine Ketones Negative (Negati ve) 03/10/21 20:04 Urine Blood Neg (Negative) 03/10/21 20:04 Urine Nitrate Negative (Negati ve) 03/10/21 20:04 Urine Bilirubin Neg (Negative) 03/10/21 20:04 Urine Urobilinogen 1 mg/dL (Negative ) H 03/10/21 20:04 Ur Leukocyte Maria C ase Negative (Negati ve) 03/10/21 20:04 Vancomycin Trough 20.8 ug/mL (10-15 ) H 03/13/21 05:00 Random Vancomycin 16.6 ug/mL (20.0- 40.0) L 03/15/21 05:36 Urine Opiates Scre en Positive ng/mL (N egative) H 03/12/21 19:53 Ur Barbiturates Sc reen Negative ng/mL (N egative) 03/12/21 19:53 Ur Phencyclidine S crn Negative ng/mL (N egative) 03/12/21 19:53 Ur Amphetamines Sc reen Positive ng/mL (N egative) H 03/12/21 19:53 U Benzodiazepines Scrn Negative ng/mL (N egative) 03/12/21 19:53 Urine Cocaine Scre en Negative ng/mL (N egative) 03/12/21 19:53 U Marijuana (THC) Screen Negative ng/mL (N egative) 03/12/21 19:53 Impressions Foot X-Ray 03/10/21 19:06 IMPRESSION: 1. Increased soft tissue swelling of the right foot. 2. No change in osseous structures. Suspected severe Charcot arthropathy changes with collapse of the midfoot. Foot CT 03/11/21 15:18 IMPRESSION: 1. Diffuse cellulitis of the right lower extremity. 2. No convincing CT scan evidence of osteomyelitis in the foot or ankle. 3. No significant changes from comparison imaging demonstrating advanced features of Charcot arthropathy in the midfoot and hindfoot. Radiation Dose CTDIVOL = (mGy): DLP = 179.51 (mGy-cm) Chest X-Ray 03/12/21 16:22 IMPRESSION: 1. No acute cardiopulmonary finding. No change. Foot MRI 03/14/21 07:00 IMPRESSION: 1. Large cystic lesion in the talus, which appears to communicate with an overlying soft tissue ulceration and may represent a chronic abscess and/or sequelae of chronic osteomyelitis. No MR evidence of acute osteomyelitis. 2. Additional findings, as above. Microbiology 03/13/21 05:50 Sputum - Expectorated Sputum Gram Stain - Final 03/13/21 05:50 Sputum - Expectorated Sputum Sputum Culture - Final Methicillin Resis Staph Aureus 03/11/21 04:30 Ankle - #1 Wound Culture - Final Methicillin Resis Staph Aureus Group g streptococcus 03/10/21 19:19 Blood Blood Culture - Preliminary NEGATIVE TO DATE 03/10/21 19:33 Blood Blood Culture - Preliminary Vitals: Last Vital Signs Temp 98.2 F 03/15/21 11:33 Pulse 96 03/15/21 11:33 Resp 20 H 03/15/21 11:33 BP 127/87 03/15/21 11:33 Pulse Ox 98 03/15/21 11:33 Discharge Plan Discharge Patient Disposition: Home Health Service Condition: Stable Prescriptions: New furosemide 40 mg Tablet 40 mg PO DAILY Qty: 30 RF: 0 atenolol 50 mg Tablet 50 mg PO BID Qty: 60 RF: 0 escitalopram oxalate 10 mg Tablet 10 mg PO Q48H Qty: 30 RF: 0 linezolid 600 mg tablet 600 mg PO BID 10 Days Qty: 20 RF: 0 Continued potassium chloride 20 mEq tablet extended release 20 meq PO QAM RF: 0 metformin 1,000 mg tablet 500 mg PO BID RF: 0 baclofen 20 mg tablet 20 mg PO BID RF: 0 BuSpar 5 mg Tablet 5 mg PO TID RF: 0 Compazine 10 mg Tablet 10 mg PO DAILY PRN (Reason: Nausea) RF: 0 fenofibrate micronized 200 mg capsule 200 mg PO BEDTIME RF: 0 amlodipine 10 mg tablet 10 mg PO QAM RF: 0 Protonix 40 mg Tablet,Delayed Release (Dr/Ec) 40 mg PO BID RF: 0 aspirin 81 mg Tablet,Delayed Release (Dr/Ec) 81 mg PO DAILY RF: 0 gabapentin 300 mg Capsule 300 mg PO TID RF: 0 Discontinued furosemide 40 mg tablet 40 mg PO DAILY PRN (Reason: Edema) RF: 0 atenolol 100 mg Tablet 100 mg PO BID RF: 0 escitalopram oxalate 10 mg Tablet 10 mg PO DAILY RF: 0 Discharge Orders: Discharge Order (Routine); Ordered 03/15/21 Ordered By: Eduardo Pineda Referrals: Debbie Dietz DO [Primary Care Provider] - Discharge Diet: Usual diet Discharge Activity: Resume usual activity Patient Instructions: Opioid Safety Activity Restrictions/Additional Instructions: Please take medications as prescribed. Going forward you need to be on gabapentin 10 mg 3 times a day, baclofen 20 mg twice daily, BuSpar 5 mg 3 times a day, Compazine as needed, Lexapro 10 mg every other day. Please make sure you are not on any other psychiatric medications other than the ones prescribed. Please try taking excessive pain medications. Please consider rehab program as discussed in detail. Discharge Attestations Time Spent in Discharge Care*: greater than 30 min Specific Discharge Activities: educating patient, educating and/or supporting family/caregiver, discussing with pcp/other providers, discussing with leather case finisher/social workers/dc planners, documenting/other paperwork and evaluating patient/reviewing data Status at Discharge: Cognitive status at discharge: cognitively intact , Behavioral status at discharge: cooperative , Functional status at discharge: other assisted ambulation Overall status at discharge: patient is back to baseline Quality Metrics Clinical Quality Measures During this hospital stay, did patient experience: None Coding Level of Care Code Acute [facility] FW DC note Diagnoses Cellulitis L03.115 Laterality: right Site of cellulitis: extremity Site of cellulitis of extremity: lower extremity
--- NOTE | 2021-03-15 16:10 | PC.NURSE ---
pt iv taken out and intact. pt discharge instructions explained and questions answered. pt transferred home by [facility] transport.
--- NOTE | 2021-03-15 21:26 | PC.NURSE ---
Discharge Paperwork: Patient called when she got home and said that she was unclear on the medications she was supposed to take. Gave medication instructions over the phone to the patient, she wrote them down and read them back to this nurse correctly. Advised the patient that this nurse would reprint her discharge instructions and mail them to her.
--- NOTE | 2021-03-16 14:22 | PC.SOCIAL ---
Linezolid required PA. Called insurance company and they had to put it in as Zyv[employer]. Was given ceballos [id number] to do for COVER MY MEDS. This was entered and approved. Updated Jeovany Calloway nurse [facility]. They did run the medication and it was approved.
== END 2021-03-15 16:13 | disposition home health service (06) | DRG 853 ==
LOC: ER 20:04 → MEDSURG 22:35
PROVIDERS: Admitting Provider Internal Medicine; Emergency Provider Emergency Medicine; PCP Family Medicine; Visit Provider Student in an Organized Health Care Education/Training Program
DX: A41.9 Sepsis, unspecified organism (principal); L89.613 Pressure ulcer of right heel, stage 3; L89.153 Pressure ulcer of sacral region, stage 3; L03.115 Cellulitis of right lower limb; I50.32 Chronic diastolic (congestive) heart failure; C34.90 Malignant neoplasm of unspecified part of unspecified bronchus or lung; F19.239 Other psychoactive substance dependence with withdrawal, unspecified; E87.1 Hypo-osmolality and hyponatremia; G60.0 Hereditary motor and sensory neuropathy; E11.610 Type 2 diabetes mellitus with diabetic neuropathic arthropathy; E11.42 Type 2 diabetes mellitus with diabetic polyneuropathy; J44.9 Chronic obstructive pulmonary disease, unspecified; I11.0 Hypertensive heart disease with heart failure; Z87.01 Personal history of pneumonia (recurrent); Z98.1 Arthrodesis status; M96.1 Postlaminectomy syndrome, not elsewhere classified; G89.29 Other chronic pain; F41.8 Other specified anxiety disorders; Z86.718 Personal history of other venous thrombosis and embolism; E78.5 Hyperlipidemia, unspecified; M54.16 Radiculopathy, lumbar region; Z92.3 Personal history of irradiation; M43.6 Torticollis; Z79.899 Other long term (current) drug therapy; Z96.653 Presence of artificial knee joint, bilateral; F17.210 Nicotine dependence, cigarettes, uncomplicated; Z79.84 Long term (current) use of oral hypoglycemic drugs; Z79.82 Long term (current) use of aspirin; B95.62 Methicillin resistant Staphylococcus aureus infection as the cause of diseases classified elsewhere; F15.10 Other stimulant abuse, uncomplicated; E86.0 Dehydration
CPT/HCPCS: 36415; 36416; 36600; 51702; 71045; 73630; 73701; 73720; 80051; 80053; 80069; 80202; 80306; 81003; 82330; 82803; 82805; 82962; 83540; 83550; 83605; 83735; 83880; 84145; 84443; 85025; 85651; 86140; 87040; 87070; 87077; 87186; 87205; 93005; 94640; 94762; 96365; 96372; 99285; A9577; J1170; J1650; J1756; J1815; J1940; J2060; J2270; J2405; J2543; J3370; J3490; J7030; J7050; J7626; Q9967

== ENCOUNTER 2021-04-07 09:50 | Outpatient (CLI) | payer MEDICARE, MEDICAID, SELFPAY | END 2021-04-07 09:51 | disposition home or self-care (01) | LOC: WOUND 09:51 | PROVIDERS: PCP Family Medicine; Visit Provider Thoracic Surgery (Cardiothoracic Vascular Surgery) | DX: E11.621 Type 2 diabetes mellitus with foot ulcer (principal); L97.512 Non-pressure chronic ulcer of other part of right foot with fat layer exposed; L89.614 Pressure ulcer of right heel, stage 4; L89.312 Pressure ulcer of right buttock, stage 2 | CPT/HCPCS: 11042; 11045 ==

== ENCOUNTER 2021-04-14 14:01 | Outpatient (CLI) | payer MEDICARE, MEDICAID, SELFPAY | END 2021-04-14 14:02 | disposition home or self-care (01) | LOC: WOUND 14:02 | PROVIDERS: PCP Family Medicine; Visit Provider Surgery | DX: I96 Gangrene, not elsewhere classified (principal); L89.890 Pressure ulcer of other site, unstageable; L89.614 Pressure ulcer of right heel, stage 4; L89.312 Pressure ulcer of right buttock, stage 2; E11.621 Type 2 diabetes mellitus with foot ulcer; L97.512 Non-pressure chronic ulcer of other part of right foot with fat layer exposed | CPT/HCPCS: 11042; 11045 ==

== ENCOUNTER 2021-04-21 14:51 | Outpatient (CLI) | payer MEDICARE, MEDICAID, SELFPAY | END 2021-04-21 14:52 | disposition home or self-care (01) | LOC: WOUND 14:52 | PROVIDERS: PCP Family Medicine; Visit Provider Surgery | DX: I96 Gangrene, not elsewhere classified (principal); L89.890 Pressure ulcer of other site, unstageable; L89.614 Pressure ulcer of right heel, stage 4 | CPT/HCPCS: 11042; 11043; 11046 ==

== ENCOUNTER 2021-04-26 15:03 | Outpatient (CLI) | payer MEDICARE, MEDICAID, SELFPAY ==
--- NOTE | 2021-04-26 15:10 | XR_ITS ---
WS: [id number] Right knee, 3 views, 04/26/2021 Clinical Data: TYPE 2 DM W/FOOT ULCER Comparison: Right knee, 12/28/2020. Findings: The right knee arthroplasty remains in good position. No loosening is seen. There are no fractures. T he soft tissues are normal. XR/XR knee RT 3V* [id number] Impression: Right knee arthroplasty. Kellgren-Hector Classification: NA
== END 2021-04-26 15:04 | disposition home or self-care (01) ==
LOC: RAD 15:05
PROVIDERS: PCP Family Medicine; Visit Provider Surgery
DX: E11.621 Type 2 diabetes mellitus with foot ulcer (principal); Z96.651 Presence of right artificial knee joint
CPT/HCPCS: 73562

== ENCOUNTER 2021-05-05 13:12 | Outpatient (CLI) | payer MEDICARE, MEDICAID, SELFPAY | END 2021-05-05 13:13 | disposition home or self-care (01) | LOC: WOUND 13:13 | PROVIDERS: PCP Family Medicine; Visit Provider Surgery | DX: I96 Gangrene, not elsewhere classified (principal); L89.890 Pressure ulcer of other site, unstageable; L89.614 Pressure ulcer of right heel, stage 4; E11.621 Type 2 diabetes mellitus with foot ulcer; L97.512 Non-pressure chronic ulcer of other part of right foot with fat layer exposed | CPT/HCPCS: 11043; 11046 ==

== ENCOUNTER 2021-05-12 13:42 | Outpatient (CLI) | payer MEDICARE, MEDICAID, SELFPAY | END 2021-05-12 13:43 | disposition home or self-care (01) | LOC: WOUND 13:43 | PROVIDERS: PCP Family Medicine; Visit Provider Surgery | DX: L89.890 Pressure ulcer of other site, unstageable (principal); L89.614 Pressure ulcer of right heel, stage 4; I87.2 Venous insufficiency (chronic) (peripheral); L97.822 Non-pressure chronic ulcer of other part of left lower leg with fat layer exposed; E11.621 Type 2 diabetes mellitus with foot ulcer; L97.512 Non-pressure chronic ulcer of other part of right foot with fat layer exposed | CPT/HCPCS: 11042; 11043 ==

== ENCOUNTER 2021-05-19 10:47 | Outpatient (CLI) | payer MEDICARE, MEDICAID, SELFPAY | END 2021-05-19 10:48 | disposition home or self-care (01) | LOC: WOUND 10:49 | PROVIDERS: PCP Family Medicine; Visit Provider Nurse Practitioner Family | DX: L89.890 Pressure ulcer of other site, unstageable (principal); L89.614 Pressure ulcer of right heel, stage 4; I87.2 Venous insufficiency (chronic) (peripheral); L97.822 Non-pressure chronic ulcer of other part of left lower leg with fat layer exposed; E11.621 Type 2 diabetes mellitus with foot ulcer; L97.512 Non-pressure chronic ulcer of other part of right foot with fat layer exposed | CPT/HCPCS: 11042 ==

== ENCOUNTER → 2021-05-28 15:50 | Outpatient (BNVA) | payer MEDICARE, MEDICAID, SELFPAY | PROVIDERS: PCP Family Medicine; Visit Provider Nurse Practitioner Family | DX: N39.0 Urinary tract infection, site not specified (principal) | CPT/HCPCS: 81000 ==

== ENCOUNTER 2021-06-02 13:02 | Outpatient (CLI) | payer MEDICARE, MEDICAID, SELFPAY | END 2021-06-02 13:03 | disposition home or self-care (01) | LOC: WOUND 13:03 | PROVIDERS: PCP Family Medicine; Visit Provider Surgery | DX: L89.890 Pressure ulcer of other site, unstageable (principal); L89.614 Pressure ulcer of right heel, stage 4; E11.621 Type 2 diabetes mellitus with foot ulcer; L97.512 Non-pressure chronic ulcer of other part of right foot with fat layer exposed | CPT/HCPCS: 11042; 11045 ==

== ENCOUNTER → 2021-06-06 19:01 | Outpatient (BNVA) | payer MEDICARE, MEDICAID, SELFPAY | PROVIDERS: PCP Family Medicine | DX: R30.0 Dysuria (principal) | CPT/HCPCS: 81000 ==

== ENCOUNTER 2021-06-09 13:39 | Outpatient (CLI) | payer MEDICARE, MEDICAID, SELFPAY | END 2021-06-09 13:40 | disposition home or self-care (01) | LOC: WOUND 13:40 | PROVIDERS: PCP Family Medicine; Visit Provider Surgery | DX: L97.515 Non-pressure chronic ulcer of other part of right foot with muscle involvement without evidence of necrosis; I96 Gangrene, not elsewhere classified; L89.614 Pressure ulcer of right heel, stage 4; E11.621 Type 2 diabetes mellitus with foot ulcer | CPT/HCPCS: 11042; 11043; 11046; A6446 ==

== ENCOUNTER 2021-06-16 13:48 | Outpatient (CLI) | payer MEDICARE, MEDICAID, SELFPAY | END 2021-06-16 13:49 | disposition home or self-care (01) | LOC: WOUND 13:49 | PROVIDERS: PCP Family Medicine; Visit Provider Surgery | DX: E11.621 Type 2 diabetes mellitus with foot ulcer (principal); L97.515 Non-pressure chronic ulcer of other part of right foot with muscle involvement without evidence of necrosis; L89.614 Pressure ulcer of right heel, stage 4 | CPT/HCPCS: 11042; 11043; 11046 ==

== ENCOUNTER 2021-06-23 13:46 | Outpatient (CLI) | payer MEDICARE, MEDICAID, SELFPAY | END 2021-06-23 13:47 | disposition home or self-care (01) | LOC: WOUND 13:48 | PROVIDERS: PCP Family Medicine; Visit Provider Surgery | DX: E11.621 Type 2 diabetes mellitus with foot ulcer (principal); L97.512 Non-pressure chronic ulcer of other part of right foot with fat layer exposed; L89.614 Pressure ulcer of right heel, stage 4 | CPT/HCPCS: 11042; 11045 ==

== ENCOUNTER 2021-06-30 13:59 | Outpatient (CLI) | payer MEDICARE, MEDICAID, SELFPAY | END 2021-06-30 14:00 | disposition home or self-care (01) | LOC: WOUND 14:01 | PROVIDERS: PCP Family Medicine; Visit Provider Surgery | DX: E11.621 Type 2 diabetes mellitus with foot ulcer (principal); L97.512 Non-pressure chronic ulcer of other part of right foot with fat layer exposed; L89.614 Pressure ulcer of right heel, stage 4; F17.210 Nicotine dependence, cigarettes, uncomplicated | CPT/HCPCS: 11042; 11045 ==

== ENCOUNTER 2021-07-08 22:59 | Emergency (ER) | payer MEDICARE, MEDICAID, SELFPAY ==
[2021-07-08 23:01] VITALS: BP 162/76; PULSE 88; RESP 24; TEMP 35.6; O2SAT 92; BMI 30.7
--- NOTE | 2021-07-08 23:03 | XRR_ITS ---
PROCEDURE INFORMATION: Exam: XR Chest Exam date and time: 07/08/2021 11:03 PM Age: 61 years old Clinical indication: Dyspnea; Additional info: Aspiration rule out TECHNIQUE: Imaging protocol: XR of the chest. Views: 1 view. COMPARISON: CR XR chest 1V portable [id number] 03/12/2021 6:25 PM FINDINGS: Lungs: There is no consolidation. Pleural spaces: There is no pleural effusion or pneumothorax. Heart/Mediastinum: There is mild cardiac enlargement. Bones/joints: Extensive surgical changes in the cervical spine. Bones in the chest are unremarkable. XR/XR chest 1V portable [id number] IMPRESSION: No acute findings.
--- NOTE | 2021-07-08 23:03 | ECG_ITS ---
[facility] ED Test Date: 2021-07-09 Pat Name: Polina Snyder Department: Room: Gender: Female Public Improvement Inspector: BRYANT ROQUEB: 1960 Requested By: Tirso Ballesteros Order Number: [id number] Rosalba MD: Dora Rodríguez M.D. Measurements Intervals [place] Rate: 100 P: 57 IL: 153 QRS: 24 QRSD: 94 T: 62 QT: 353 QTc: 457 Interpretive Statements SINUS TACHYCARDIA POSSIBLE LEFT ATRIAL ENLARGEMENT NONSPECIFIC ST & T-WAVE ABNORMALITY Compared to ECG 03/10/2021 19:49:13 Sinus rhythm no longer present T-wave abnormality still present Electronically Signed On 07-10-2021 13:12:41 CDT by Dora Rodríguez M.D. [id number]
[2021-07-08 23:57] LABS: Blood Urea Nitrogen 13 mg/dL (8-23); Calcium 9.5 mg/dL (8.5-10.5); Carbon Dioxide 27 mmol/L (22-29); Chloride 99 mmol/L (98-107); Glomerular Filtration Rate 226.2 mL/min (90-130); Glucose 119 mg/dL (65-115); Osmolality Calculated 287 mOsm/kg (285-295); Sodium 138 mmol/L (136-145)
[2021-07-08 23:59] LABS: Acetaminophen < 5.0 ug/mL (10-30); Salicylate < 0.3 mg/dL (3-10)
[2021-07-09] LABS: Anion Gap 17.2 (5-19); Potassium 5.2 mmol/L (3.5-5.1)
[2021-07-09] MEDS: sodium chloride 0.9% 500 ML IV (00:44)
--- NOTE | 2021-07-09 01:05 | ED_ITS ---
HPI - Overdose General: Chief Complaint: Overdose Stated Complaint: Accidental OD Time Seen by Provider: 07/08/21 23:13 History of Present Illness: HPI Narrative: 61-year-old patient comes in with an accidental hydrocodone overdose. Evidently, she had not slept at all last night due to recent life stressors which are significant tonight, she took 3 hydrocodone hoping to get some rest. She became unresponsive for family at home, and EMS was called. She received 2 mg of Narcan in 1 mg increments, and she began to wake up. She is awake alert and talking currently. She denies any suicidal ideation complaint: accidental overdose Onset (ago): hour(s) Timing confirmed by: family member Review of Systems Const: Denies: fever(s) Card: Denies: chest pain or palpitations Resp: Denies: dyspnea or wheezing GI: Denies: abdominal pain, nausea or vomiting Neuro: Denies: headache(s) or difficulty communicating thoughts Psych: Reports: depression; Denies: visual hallucinations, auditory hallucinations, suicidal ideation or homicidal ideation [facility] ED PFSH: Medical History Cervical post-laminectomy syndrome Lxfmpau-Yuspi-Uyfhv disease-like deformity of foot right Chronic pain Depression with anxiety Diabetes mellitus, type II History of cardioversion history of SVT vs for other arrhythmia History of DVT of lower extremity post-operative Hyperlipidemia Hypertension Lumbar radiculopathy Lung cancer according to pain clinic notes, managed at [place], underwent radiation therapy in 2019 Torticollis, acquired Has had good results with Botox in the past Surgical History History of arthroplasty of left knee (~1976) History of partial hysterectomy Hx of appendectomy Hx of dilation and curettage Hx of neck surgery x 2, posterior laminectomy and cervical fusion with hardware in place, limited ROM neck at baseline Hx of total knee replacement (~2010) Right Hx of tubal ligation Family History Family/Other Hypertension Depression Anxiety Diabetes Father Aneurysm Mother Hypertension Brother Diabetes Sister Diabetes Social History Smoking and tobacco status: current some day smoker Alcohol intake: never Marital status: History of recent travel: No Additional social history: unknown if patient continues to smoke, documented to smoke previously Physical Exam Const: COMMON NORMALS: alert GENERAL APPEARANCE: cooperative; not lethargic NUTRITIONAL APPEARANCE: overweight ORIENTATION/CONSCIOUSNESS: not lethargic Eye: COMMON NORMALS: Equal, round and reactive pupils present and EOMs intact bilaterally PUPIL: Yes Equal, round and reactive pupils present Chest: COMMONS NORMALS: normal inspection of the chest Resp: COMMON NORMALS: normal respiratory effort, No use of accessory muscles and clear to auscultation bilaterally AUSCULTATION: clear to auscultation bilaterally Cardio: COMMON NORMALS: regular rate, regular rhythm and Peripheral pulses 2+ throughout RATE: regular rate RHYTHM: regular rhythm PERIPHERAL PULSES: Peripheral pulses 2+ throughout GI: COMMON NORMALS: Normal to inspection, nondistended, normoactive bowel sounds present and Soft to palpation PALPATION: Yes Soft to palpation Neuro: SENSORIUM/ORIENTATION: Yes alert and No lethargic Course Vital Signs: Vital signs: Vital Signs Temperature 96.1 F L 07/08/21 23:01 Pulse Rate 83 07/09/21 02:33 Respiratory Rate 19 H 07/09/21 02:33 Blood Pressure 148/75 07/09/21 02:33 Pulse Oximetry 93 07/09/21 02:33 MDM - Overdose MDM Narrative: Medical decision making narrative: 61-year-old lady with a accidental overdose of hydrocodone. She is awake alert and talking now. She is tearful, and embarrassed, but denies suicidality. Blood pressure 155/95, heart rate 88, saturations 95% on room air. Her chest x-ray is not remarkable. She would like to go home. She has not required any more Narcan. Lab Data: Labs: Lab Results 07/08/21 07/08/21 07/09/21 Range/Units 23:22 23:22 00:15 WBC Cancelled Cancelled Corrected WBC Cancelled Cancelled RBC Cancelled Cancelled Hgb Cancelled Cancelled Hct Cancelled Cancelled MCV Cancelled Cancelled MCH Cancelled Cancelled MCHC Cancelled Cancelled RDW Cancelled Cancelled Plt Count Cancelled Cancelled MPV Cancelled Cancelled Gran % Cancelled Cancelled Neut % (Auto) Cancelled Cancelled Lymph % (Auto) Cancelled Cancelled [place] % (Auto) Cancelled Cancelled Eos % (Auto) Cancelled Cancelled Baso % (Auto) Cancelled Cancelled Neut # (Auto) Cancelled Cancelled Lymph # (Auto) Cancelled Cancelled [place] # (Auto) Cancelled Cancelled Eos # (Auto) Cancelled Cancelled Baso # (Auto) Cancelled Cancelled Absolute Gran (aut o) Cancelled Cancelled Nucleated RBC % (a uto) Cancelled Cancelled Nucleated RBCs # Cancelled Cancelled Sodium 138 (136-145) mmol/L Potassium 5.2 H (3.5-5.1) mmol/L Chloride 99 (98-107) mmol/L Carbon Dioxide 27 (22-29) mmol/L Anion Gap 17.2 (5-19) BUN 13 (8-23) mg/dL Creatinine 0.3 L (0.5-0.9) mg/dL GFR Calculation 226.2 H (90-130) mL/min Glucose 119 H (65-115) mg/dL Calculated Osmolal ity 287 (285-295) mOsm/k g Calcium 9.5 (8.5-10.5) mg/dL Salicylates < 0.3 L (3-10) mg/dL Acetaminophen < 5.0 L (10-30) ug/mL 07/09/21 Range/Units 00:59 WBC 10.6 H Corrected WBC RBC 3.77 L Hgb 11.0 L Hct 35.6 L MCV 94.4 MCH 29.2 MCHC 30.9 RDW 15.2 H Plt Count 342 MPV 9.3 Gran % Neut % (Auto) 80.5 Lymph % (Auto) 8.9 [place] % (Auto) 7.4 Eos % (Auto) 2.3 Baso % (Auto) 0.5 Neut # (Auto) 8.56 H Lymph # (Auto) 0.9 [place] # (Auto) 0.8 Eos # (Auto) 0.2 Baso # (Auto) 0.1 Absolute Gran (aut o) Nucleated RBC % (a uto) 0 Nucleated RBCs # 0.0 Sodium (136-145) mmol/L Potassium (3.5-5.1) mmol/L Chloride (98-107) mmol/L Carbon Dioxide (22-29) mmol/L Anion Gap (5-19) BUN (8-23) mg/dL Creatinine (0.5-0.9) mg/dL GFR Calculation (90-130) mL/min Glucose (65-115) mg/dL Calculated Osmolal ity (285-295) mOsm/k g Calcium (8.5-10.5) mg/dL Salicylates (3-10) mg/dL Acetaminophen (10-30) ug/mL Discharge Plan Discharge Patient Disposition: Home Clinical Impression: Opiate or related narcotic overdose Qualifiers: Encounter type: initial encounter Injury intent: accidental or unintentional Qualified Code(s): T40.601A - Poisoning by unspecified narcotics, accidental (unintentional), initial encounter Condition: Stable Prescriptions: No Action potassium chloride 20 mEq tablet extended release 20 meq PO QAM RF: 0 metformin 1,000 mg tablet 500 mg PO BID RF: 0 baclofen 20 mg tablet 20 mg PO BID RF: 0 atenolol 50 mg tablet 100 mg PO BID RF: 0 fluconazole [Diflucan] 150 mg tablet 150 mg PO Q3D 3 Days Qty: 3 RF: 1 doxycycline hyclate 100 mg tablet 100 mg PO BID 7 Days Qty: 14 RF: 0 ondansetron 4 mg tablet,disintegrating 4 mg PO Q6H PRN (Reason: nausea and vomiting) Qty: 12 RF: 0 buspirone 5 mg Tablet 5 mg PO TID RF: 0 Compazine 10 mg Tablet 10 mg PO DAILY PRN (Reason: Nausea) RF: 0 fenofibrate micronized 200 mg capsule 200 mg PO BEDTIME RF: 0 amlodipine 10 mg tablet 10 mg PO QAM RF: 0 Protonix 40 mg Tablet,Delayed Release (Dr/Ec) 40 mg PO BID RF: 0 aspirin 81 mg Tablet,Delayed Release (Dr/Ec) 81 mg PO DAILY RF: 0 gabapentin 300 mg Capsule 300 mg PO TID RF: 0 furosemide 40 mg Tablet 40 mg PO DAILY Qty: 30 RF: 0 escitalopram oxalate 10 mg Tablet 10 mg PO Q48H Qty: 30 RF: 0 Discharge Orders: Discharge ED (Routine); Ordered 07/09/21 Ordered By: Jose Angel Becker Referrals: Debbie Dietz DO [Primary Care Provider] - 1-3 days Discharge Diet: Advance as tolerated Discharge Activity: Resume usual activity Patient Instructions: Opioid Safety Activity Restrictions/Additional Instructions: Do not take any more hydrocodone for at least the next 48 hours. Return immediately for thoughts or wishes to harm your self or anyone else. Return also for shortness of breath, worsening mental status, any other concerning symptoms. Coding Level of Care Code ED Electronic Imager for Chg Fwd Exam Detailed
[2021-07-09 01:06] LABS: Basophils # 0.1 10^3/uL (0.0-0.1); Basophils % 0.5 %; Eosinophils # 0.2 10^3/uL (0.0-0.8); Eosinophils % 2.3 %; Hematocrit 35.6 % (37.0-47.0); Lymphocytes # 0.9 10^3/uL (0.8-4.8); Lymphocytes % 8.9 %; Mean Corpuscular HGB Conc 30.9 g/dL (30.0-36.0); Mean Corpuscular Hemoglobin 29.2 pg (28.0-34.0); Mean Corpuscular Volume 94.4 fl (81-99); Mean Platelet Volume 9.3 fL (7.4-10.4); Monocytes # 0.8 10^3/uL (0.2-0.9); Monocytes % 7.4 %; Neutrophils # 8.56 10^3/uL (1.8-7.7); Neutrophils % 80.5 %; Nucleated Red Blood Cells % 0 %; Platelet Count 342 10^3/cmm (130-400); Red Blood Count 3.77 10^6/uL (4.1-5.3); Red Cell Distribution Width 15.2 % (12.1-15.1); White Blood Count 10.6 10^3/uL (4.0-10.0)
[2021-07-09 02:33] VITALS: BP 148/75; PULSE 83; RESP 19; O2SAT 93
== END 2021-07-09 05:00 | disposition home or self-care (01) ==
PROVIDERS: Emergency Medicine; Emergency Provider Emergency Medicine; PCP Family Medicine
DX: T40.2X1A Poisoning by other opioids, accidental (unintentional), initial encounter (principal); E11.9 Type 2 diabetes mellitus without complications; E78.5 Hyperlipidemia, unspecified; I10 Essential (primary) hypertension; F17.200 Nicotine dependence, unspecified, uncomplicated; Z79.84 Long term (current) use of oral hypoglycemic drugs
CPT/HCPCS: 71045; 80048; 80307; 85025; 93005; 96360; 99283; J7040

== ENCOUNTER 2021-07-14 12:58 | Outpatient (CLI) | payer MEDICARE, MEDICAID, SELFPAY | END 2021-07-14 12:59 | disposition home or self-care (01) | LOC: WOUND 13:00 | PROVIDERS: PCP Family Medicine; Visit Provider Surgery | DX: E11.621 Type 2 diabetes mellitus with foot ulcer (principal); L97.415 Non-pressure chronic ulcer of right heel and midfoot with muscle involvement without evidence of necrosis; L89.614 Pressure ulcer of right heel, stage 4; F17.210 Nicotine dependence, cigarettes, uncomplicated | CPT/HCPCS: 11043; 11046 ==

== ENCOUNTER 2021-07-27 13:30 | Outpatient (CLI) | payer MEDICARE, MEDICAID, SELFPAY | END 2021-07-27 13:31 | disposition home or self-care (01) | LOC: WOUND 13:31 | PROVIDERS: PCP Family Medicine; Visit Provider Emergency Medicine | DX: E11.621 Type 2 diabetes mellitus with foot ulcer (principal); L97.512 Non-pressure chronic ulcer of other part of right foot with fat layer exposed; I96 Gangrene, not elsewhere classified; L89.614 Pressure ulcer of right heel, stage 4; F17.210 Nicotine dependence, cigarettes, uncomplicated | CPT/HCPCS: 11042; 11045; 99212 ==

== ENCOUNTER 2021-08-04 13:09 | Outpatient (CLI) | payer MEDICARE, MEDICAID, SELFPAY | END 2021-08-04 13:10 | disposition home or self-care (01) | LOC: WOUND 13:10 | PROVIDERS: PCP Family Medicine; Visit Provider Surgery | DX: I96 Gangrene, not elsewhere classified (principal); L89.614 Pressure ulcer of right heel, stage 4; E11.621 Type 2 diabetes mellitus with foot ulcer; L97.515 Non-pressure chronic ulcer of other part of right foot with muscle involvement without evidence of necrosis; F17.210 Nicotine dependence, cigarettes, uncomplicated | CPT/HCPCS: 11042; 11043 ==

== ENCOUNTER → 2021-08-18 12:58 | Outpatient (BNVA) | payer MEDICARE, MEDICAID, SELFPAY | PROVIDERS: PCP Family Medicine; Visit Provider Nurse Practitioner Family | DX: Z20.822 Contact with and (suspected) exposure to COVID-19 (principal); Z20.828 Contact with and (suspected) exposure to other viral communicable diseases | CPT/HCPCS: 87635 ==

== ENCOUNTER 2021-09-08 13:03 | Outpatient (CLI) | payer MEDICARE, MEDICAID, SELFPAY | END 2021-09-08 13:04 | disposition home or self-care (01) | LOC: WOUND 13:04 | PROVIDERS: PCP Family Medicine; Visit Provider Surgery | DX: I96 Gangrene, not elsewhere classified (principal); L89.614 Pressure ulcer of right heel, stage 4; E11.621 Type 2 diabetes mellitus with foot ulcer; L97.512 Non-pressure chronic ulcer of other part of right foot with fat layer exposed; F17.210 Nicotine dependence, cigarettes, uncomplicated | CPT/HCPCS: 11042; 11043 ==

== ENCOUNTER 2021-09-15 13:10 | Outpatient (CLI) | payer MEDICARE, MEDICAID, SELFPAY | END 2021-09-15 13:11 | disposition home or self-care (01) | LOC: WOUND 13:12 | PROVIDERS: PCP Family Medicine; Visit Provider Surgery | DX: E11.621 Type 2 diabetes mellitus with foot ulcer (principal); L97.516 Non-pressure chronic ulcer of other part of right foot with bone involvement without evidence of necrosis; L89.614 Pressure ulcer of right heel, stage 4; F17.210 Nicotine dependence, cigarettes, uncomplicated | CPT/HCPCS: 11043; 11044; 11047 ==

== ENCOUNTER 2021-09-22 13:26 | Outpatient (CLI) | payer MEDICARE, MEDICAID, SELFPAY | END 2021-09-22 13:27 | disposition home or self-care (01) | LOC: WOUND 13:27 | PROVIDERS: PCP Family Medicine; Visit Provider Surgery | DX: E11.621 Type 2 diabetes mellitus with foot ulcer (principal); L97.516 Non-pressure chronic ulcer of other part of right foot with bone involvement without evidence of necrosis; L89.614 Pressure ulcer of right heel, stage 4; F17.210 Nicotine dependence, cigarettes, uncomplicated | CPT/HCPCS: 11043; 11044; 11047; A6197 ==

== ENCOUNTER 2021-11-08 10:22 | Inpatient (IN) | payer MEDICARE, MEDICAID, SELFPAY ==
[2021-11-08] VITALS (23 sets, daily range): BP systolic 99–136; BP diastolic 52–92; PULSE 68–97; RESP 16–25; TEMP 36.6–39.3; O2SAT 90–98; BMI 29.7
--- NOTE | 2021-11-08 10:36 | ECG_ITS ---
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 Measurements Intervals [place] Rate: 92 P: 60 NE: 142 QRS: 31 QRSD: 96 T: 69 QT: 348 QTc: 431 Interpretive Statements SINUS RHYTHM Compared to ECG 07/09/2021 01:49:17 Sinus tachycardia no longer present T-wave abnormality no longer present Electronically Signed On 11-09-2021 8:50:13 [employer] by Gil Ramos M.D. [email or web address].[email or web address]/store/NU/[id number] f
--- NOTE | 2021-11-08 10:36 | XRR_ITS ---
PROCEDURE INFORMATION: Exam: XR Chest Exam date and time: 11/08/2021 10:36 AM Age: 61 years old Clinical indication: Shortness of breath; Patient HX: History--diabetic. Has swelling lower extremities; Additional info: Dyspnea/cough TECHNIQUE: Imaging protocol: XR of the chest. Views: 1 view. COMPARISON: CR XR chest 1V portable [id number] 07/08/2021 11:22 PM FINDINGS: Lungs: Low lung volumes are seen. The lungs are clear No consolidation. Pleural spaces: Elevated right hemidiaphragm is seen. No pleural effusion. No pneumothorax. Heart/Mediastinum: Unremarkable. No cardiomegaly. Bones/joints: Metallic hardware is seen in the cervical spine XR/XR chest 1V portable [id number] IMPRESSION: 1. No acute findings. 2. Low lung volumes. 3. Elevated right hemidiaphragm. 4. Orthopedic hardware cervical spine
--- NOTE | 2021-11-08 10:39 | ED_ITS ---
HPI - Fever General: Chief Complaint: Fever Stated Complaint: ABDOMINAL PAIN/ FEVER Time Seen by Provider: 11/08/21 10:23 History of Present Illness: HPI Narrative: 61-year-old female presents emergency room complaining of fevers and chills he has a fever of 102 she reports same at home. She has currently been taking antibiotics for bilateral lower extremity infections the right much worse than the labs. She has chronic venous stasis edema no significant skin changes. She is scheduled to have a right below the knee amputation on November 242021. She states she has not been feeling well very nauseous mildly short of breath. She denies any abdomina l pain or chest pain. MD elicited complaint: fever, malaise and weakness Pertinent past history: diabetes Onset (ago): day(s) Exacerbating factors: nothing Relieving factors: nothing Associated symptoms: Reports chills and extremity pain; Deny abdominal pain, flank pain, chest pain, confusion, cough, diarrhea, dysuria, headache(s), myalgias, nasal congestion, nausea, night sweats, rash, rhinorrhea, short of breath, sinus pain, stiffness, sore throat, vaginal discharge, vomiting or weight loss Treatments prior to arrival fever: none Review of Systems Const: Reports: fever(s) and chills; Denies: night sweats ENMT: Denies: nasal congestion or sinus pain Card: Denies: chest pain Resp: Denies: dyspnea, productive cough or non-productive cough GI: Denies: abdominal pain, nausea, vomiting or diarrhea : Denies: flank pain, dysuria or vaginal discharge Musc: Reports: extremity pain and other Skin/Breast: Denies: rash or pruritus Neuro: Denies: headache(s) or confusion PFSH ED PFSH: Medical History Anemia Cellulitis Cervical post-laminectomy syndrome Wvrowif-Uljzg-Zfpqn disease-like deformity of foot right Chronic pain Depression with anxiety Diabetes mellitus, type II Diabetic neuropathy associated with type 2 diabetes mellitus Diastolic CHF History of cardioversion history of SVT vs for other arrhythmia History of DVT of lower extremity post-operative Hyperlipidemia Hypertension Lumbar radiculopathy Lung cancer according to pain clinic notes, managed at [place], underwent radiation therapy in 2019 Methamphetamine use Substance abuse Torticollis, acquired Has had good results with Botox in the past Venous stasis ulcer Surgical History History of arthroplasty of left knee (~1976) History of partial hysterectomy Hx of appendectomy Hx of dilation and curettage Hx of neck surgery x 2, posterior laminectomy and cervical fusion with hardware in place, limited ROM neck at baseline Hx of total knee replacement (~2010) Right Hx of tubal ligation Family History Family/Other Hypertension Depression Anxiety Diabetes Father Aneurysm Mother Hypertension Brother Diabetes Sister Diabetes Social History Smoking and tobacco status: current every day smoker Alcohol intake: never Marital status: History of recent travel: No Additional social history: unknown if patient continues to smoke, documented to smoke previously Physical Exam Const: GENERAL APPEARANCE: cooperative and comfortable ORIENTATION/CONSCIOUSNESS: Yes awake HENMT: COMMON NORMALS: normocephalic, atraumatic and hearing grossly normal bilaterally HEAD & SCALP: normocephalic and atraumatic Neck/C-Spine: COMMON NORMALS: no JVD Lymph: LYMPHATIC: no lymphadenopathy noted and no lymphedema noted Resp: COMMON NORMALS: normal respiratory effort, No retractions, No use of accessory muscles and clear to auscultation bilaterally AUSCULTATION: clear to auscultation bilaterally Cardio: COMMON NORMALS: no JVD, regular rate, regular rhythm and No murmurs present (Cardio) RATE: regular rate RHYTHM: regular rhythm GI: COMMON NORMALS: Soft to palpation and No hepatosplenomegaly present AUSCULTATION: Yes normoactive bowel sounds PALPATION: Yes Soft to palpation, No Tenderness to palpation present (GI), No Guarding due to palpation present (GI) and Yes No hepatosplenomegaly present Extremity: OTHER: Severe bilateral Charcot foot. There is a significant cellulitis of the lower extremity particularly the right there is also some in the left. Course Vital Signs: Vital signs: Vital Signs Temperature 98.3 F 11/11/21 17:01 Pulse Rate 89 11/11/21 17:01 Respiratory Rate 18 11/11/21 17:01 Blood Pressure 151/84 11/11/21 17:01 Pulse Oximetry 91 11/11/21 17:01 MDM - Fever MDM Narrative: Medical decision making narrative: Patient is obviously acutely septic. IV antibiotics started cultures done. Discussed with orthopedics as well as vascular surgery. Dr. Champagne is agreed to take the patient directly to the OR for amputation of the right lower leg. Hospitalist has been consulted and they will admit to the hospitalist after surgery. Patient will need further work-up as well. Arterial duplex lower extremity shows severe diffuse disease in the right leg. Exam limited due to body habitus. Lab Data: Labs: Lab Results 11/08/21 11/08/21 11/08/21 07:45 10:35 10:35 WBC 26.9 10^3/uL H 10 ^3/uL (4.0-10.0) RBC 4.16 10^6/uL 10^6 /uL (4.1-5.3) Hgb 12.0 g/dL g/dL (11.5-15.3) Hct 38.5 % % (37.0-47.0) MCV 92.5 fl fl (81-99) MCH 28.8 pg pg (28.0-34.0) MCHC 31.2 g/dL g/dL (30.0-36.0) RDW 15.6 % H % (12.1-15.1) Plt Count 332 10^3/cmm 10^3 /cmm (130-400) MPV 9.4 fL fL (7.4-10.4) Neut % (Auto) 91.4 % % Lymph % (Auto) 2.2 % % [place] % (Auto) 5.1 % % Eos % (Auto) 0.4 % % Baso % (Auto) 0.4 % % Neut # (Auto) 24.56 10^3/uL H 1 0^3/uL (1.8-7.7) Lymph # (Auto) 0.6 10^3/uL L 10^ 3/uL (0.8-4.8) [place] # (Auto) 1.4 10^3/uL H 10^ 3/uL (0.2-0.9) Eos # (Auto) 0.1 10^3/uL 10^3/ uL (0.0-0.8) Baso # (Auto) 0.1 10^3/uL 10^3/ uL (0.0-0.1) Nucleated RBC % (a uto) 0 % % Nucleated RBCs # 0.0 /100WBC /100W BC Sodium 134 mmol/L L mmol /L (136-145) Potassium 4.0 mmol/L mmol/L (3.5-5.1) Chloride 95 mmol/L L mmol/ L (98-107) Carbon Dioxide 23 mmol/L mmol/L (22-29) Anion Gap 20.0 H (5-19) BUN 17 mg/dL mg/dL (8-23) Creatinine 0.3 mg/dL L mg/dL (0.5-0.9) GFR Calculation 226.2 mL/min H mL /min (90-130) Glucose 138 mg/dL H mg/dL (65-115) POC Glucose Calculated Osmolal ity 282 mOsm/kg L mOs m/kg (285-295) Lactic Acid Lactic Acid (Sepsi s) Calcium 8.9 mg/dL mg/dL (8.5-10.5) Magnesium 1.2 mg/dL L mg/dL (1.7-2.3) Total Bilirubin 0.3 mg/dL mg/dL (0.15-1.2) AST 13 U/L U/L (0-32) ALT 11 U/L U/L (0-33) Alkaline Phosphata se 106 IU/L H IU/L (35-105) Creatine Kinase 37 U/L U/L (26-192) C-Reactive Protein Total Protein 7.2 g/dL g/dL (6.6-8.7) Albumin 3.6 g/dL g/dL (3.5-5.2) Globulin 3.6 g/dL g/dL (1.3-4.6) Urine Color Yellow (Yellow) Urine Appearance Clear (CLEAR) Urine pH 5 (5-7) Ur Specific Gravit y 1.015 (1.005-1.030) Urine Protein Trace (Negative) Urine Glucose (UA) Norm (Normal) Urine Ketones Negative (Negative) Urine Blood 3+ H (Negative) Urine Nitrate Negative (Negative) Urine Bilirubin Neg (Negative) Urine Urobilinogen Norm mg/dL mg/dL (Negative) Ur Leukocyte Maria C ase Negative (Negative) Urine RBC 15-25 /hpf H /hpf (0-2) Urine WBC 0-4 /hpf H /hpf (0-5) Ur Squamous Epith Cells 5-10 /hpf H /hpf (0-5) Amorphous Sediment Not Reportable Urine Bacteria 1+ /hpf H /hpf (NONE) Coronavirus 229E ( PCR) SARS-CoV-2 (PCR) Blood Type Rho(D) Type Antibody Screen Crossmatch 11/08/21 11/08/21 11/08/21 10:35 10:35 12:57 WBC RBC Hgb Hct MCV MCH MCHC RDW Plt Count MPV Neut % (Auto) Lymph % (Auto) [place] % (Auto) Eos % (Auto) Baso % (Auto) Neut # (Auto) Lymph # (Auto) [place] # (Auto) Eos # (Auto) Baso # (Auto) Nucleated RBC % (a uto) Nucleated RBCs # Sodium Potassium Chloride Carbon Dioxide Anion Gap BUN Creatinine GFR Calculation Glucose POC Glucose Calculated Osmolal ity Lactic Acid 2.1 mmol/L mmol/L (0.5-2.2) Lactic Acid (Sepsi s) 1.9 mmol/L mmol/L (0.5-2.2) Calcium Magnesium Total Bilirubin AST ALT Alkaline Phosphata se Creatine Kinase C-Reactive Protein 84.5 mg/L H mg/L (0.0-4.9) Total Protein Albumin Globulin Urine Color Urine Appearance Urine pH Ur Specific Gravit y Urine Protein Urine Glucose (UA) Urine Ketones Urine Blood Urine Nitrate Urine Bilirubin Urine Urobilinogen Ur Leukocyte Maria C ase Urine RBC Urine WBC Ur Squamous Epith Cells Amorphous Sediment Urine Bacteria Coronavirus 229E ( PCR) SARS-CoV-2 (PCR) Blood Type Rho(D) Type Antibody Screen Crossmatch 11/08/21 11/08/21 11/08/21 15:00 16:35 20:33 WBC RBC Hgb Hct MCV MCH MCHC RDW Plt Count MPV Neut % (Auto) Lymph % (Auto) [place] % (Auto) Eos % (Auto) Baso % (Auto) Neut # (Auto) Lymph # (Auto) [place] # (Auto) Eos # (Auto) Baso # (Auto) Nucleated RBC % (a uto) Nucleated RBCs # Sodium Potassium Chloride Carbon Dioxide Anion Gap BUN Creatinine GFR Calculation Glucose POC Glucose 110 mg/dL mg/dL (70-110) Calculated Osmolal ity Lactic Acid Lactic Acid (Sepsi s) Calcium Magnesium Total Bilirubin AST ALT Alkaline Phosphata se Creatine Kinase C-Reactive Protein Total Protein Albumin Globulin Urine Color Urine Appearance Urine pH Ur Specific Gravit y Urine Protein Urine Glucose (UA) Urine Ketones Urine Blood Urine Nitrate Urine Bilirubin Urine Urobilinogen Ur Leukocyte Maria C ase Urine RBC Urine WBC Ur Squamous Epith Cells Amorphous Sediment Urine Bacteria Coronavirus 229E ( PCR) Not detected (NOT DETECT) SARS-CoV-2 (PCR) Not detected (NOT DETECT) Blood Type B Negative Rho(D) Type Negative Antibody Screen Negative Crossmatch See Detail Critical Care Time Critical Care Time: Critical Care Time: Yes Total Critical Care Time: 40 Attestation: The high probability of a clinically significant, sudden or life th reatening deterioration of the patient's sepsis, musculoskeletal, cardiorespiratory system(s) required my full and direct attention, intervention and personal management. The critical care time is as shown. This time is in addition to time spent performing any reported procedures but includes the following: [x] Data and vital sign review and interpretation [x] Patient assessment, examination and intervention [x] Documentation [x] Medication orders and management Discharge Plan Discharge Patient Disposition: Admitted As Inpatient Admit Provider: Casey Champagne Clinical Impression: Sepsis, Diabetes mellitus, type II, Chronic hypercapnic respiratory failure, Cellulitis, Charcot foot due to diabetes mellitus Condition: Stable Discharge Diet: Diabetic Discharge Activity: Limit activity as instructed Coding Level of Care Code ED Plastic Surgery Assistant for Trent Crews
[2021-11-08 10:50] LABS: Basophils # 0.1 10^3/uL (0.0-0.1); Basophils % 0.4 %; Eosinophils # 0.1 10^3/uL (0.0-0.8); Eosinophils % 0.4 %; Hematocrit 38.5 % (37.0-47.0); Lymphocytes # 0.6 10^3/uL (0.8-4.8); Lymphocytes % 2.2 %; Mean Corpuscular HGB Conc 31.2 g/dL (30.0-36.0); Mean Corpuscular Hemoglobin 28.8 pg (28.0-34.0); Mean Corpuscular Volume 92.5 fl (81-99); Mean Platelet Volume 9.4 fL (7.4-10.4); Monocytes # 1.4 10^3/uL (0.2-0.9); Monocytes % 5.1 %; Neutrophils # 24.56 10^3/uL (1.8-7.7); Neutrophils % 91.4 %; Nucleated Red Blood Cells % 0 %; Platelet Count 332 10^3/cmm (130-400); Red Blood Count 4.16 10^6/uL (4.1-5.3); Red Cell Distribution Width 15.6 % (12.1-15.1); White Blood Count 26.9 10^3/uL (4.0-10.0)
--- NOTE | 2021-11-08 11:02 | XRR_ITS ---
PROCEDURE INFORMATION: Exam: XR Right Tibia and Fibula Exam date and time: 11/08/2021 11:02 AM Age: 61 years old Clinical indication: Patient HX: History--type 2 diabetic, pain throughout lower leg on R and L. Legs swollen, open sores. Having amputation of right lower leg in the next month. ; Additional info: Osteomyelitis TECHNIQUE: Imaging protocol: XR Right tibia and fibula. Views: 2 views. COMPARISON: MR foot RT wo/w con [id number] 03/14/2021 10:49 AM FINDINGS: Bones/joints: The positioning of the ankle is suboptimal. There is linear lucencies in the distal shaft and metaphysis of the fibula suspicious for nondisplaced hairline fractures. Metallic knee replacement is seen in good position without loosening. No additional acute bony abnormalities are present. Soft tissues: Normal. XR/XR tibia fibula RT 2V [id number] IMPRESSION: 1. Linear nondisplaced hairline fractures distal fibula. 2. Otherwise negative for additional bone abnormalities. 3. Metallic knee replacement is present in good position.
--- NOTE | 2021-11-08 11:02 | XRR_ITS ---
PROCEDURE INFORMATION: Exam: XR Left Tibia and Fibula Exam date and time: 11/08/2021 11:02 AM Age: 61 years old Clinical indication: Left; Patient HX: History--type 2 diabetic, pain throughout lower leg on R and L. Legs swollen, open sores. Having amputation of right lower leg in the next month. ; Additional info: Osteomyelitis TECHNIQUE: Imaging protocol: XR Left tibia and fibula. Views: 2 views. COMPARISON: CR Foot 3 views, LEFT* [id number] 02/24/2018 1:22 PM FINDINGS: Bones/joints: There is osteoarthritis seen with narrowing of the medial and lateral compartments of the knee. No acute bony abnormalities seen. Soft tissues: Soft tissue edema is seen in the medial and lateral ankle XR/XR tibia fibula LT 2V [id number] IMPRESSION: No acute findings. Osteoarthritis of the knee
[2021-11-08 11:11] LABS: Alanine Aminotransferase 11 U/L (0-33); Albumin Level 3.6 g/dL (3.5-5.2); Alkaline Phosphatase 106 IU/L (35-105); Aspartate Amino Transferase 13 U/L (0-32); Blood Urea Nitrogen 17 mg/dL (8-23); Calcium 8.9 mg/dL (8.5-10.5); Carbon Dioxide 23 mmol/L (22-29); Chloride 95 mmol/L (98-107); Creatine Phosphokinase 37 U/L (26-192); Globulin 3.6 g/dL (1.3-4.6); Glomerular Filtration Rate 226.2 mL/min (90-130); Glucose 138 mg/dL (65-115); Magnesium 1.2 mg/dL (1.7-2.3); Osmolality Calculated 282 mOsm/kg (285-295); Sodium 134 mmol/L (136-145); Total Bilirubin 0.3 mg/dL (0.15-1.2); Total Protein 7.2 g/dL (6.6-8.7)
[2021-11-08 11:12] LABS: Lactic Sepsis W/Reflex 2.1 mmol/L (0.5-2.2)
[2021-11-08 11:20] LABS: C Reactive Protein 84.5 mg/L (0.0-4.9)
[2021-11-08] MEDS: morphine 4 mg/mL SDV 1 mL 2 MG IVP (11:56)
[2021-11-08] MEDS: vancomycin 1,000 MG in sodium chloride 0.9% 250 ML 250 MG IV (11:57)
--- NOTE | 2021-11-08 12:03 | XRR_ITS ---
PROCEDURE INFORMATION: Exam: XR Left Foot Exam date and time: 11/08/2021 12:03 PM Age: 61 years old Clinical indication: Condition or disease; Other: Diabetic [id number]; Patient HX: Diabetic ulcers-swelling lower extremities-redness. Does not walk. Supposed to be looking at surgery at another facility. ; Additional info: Osteomyelitis TECHNIQUE: Imaging protocol: XR Left foot. Views: 3 or more views. COMPARISON: CR Foot 3 views, LEFT* [id number] 02/24/2018 1:22 PM FINDINGS: Bones/joints: There is generalized osteopenia and osteoarthritis. Narrowing of the interphalangeal articulation of multiple digits are seen. No acute fractures are present. A small bone spurs present on the inferior calcaneus. Negative for osteomyelitis Soft tissues: Normal. XR/XR foot LT min 3V* [id number] IMPRESSION: 1. Osteopenia and osteoarthritis. 2. Negative for acute fracture. 3. Small bone spur inferior calcaneus. 4. Negative for osteomyelitis
--- NOTE | 2021-11-08 12:03 | XRR_ITS ---
PROCEDURE INFORMATION: Exam: XR Right Foot Exam date and time: 11/08/2021 12:03 PM Age: 61 years old Clinical indication: Condition or disease; Other: Diabetic ulcers; RT foot turns out; Patient HX: PT has diabetic ulcers and swelling lower extremities. Redness. RT foot turns out. She does not walk. Supposed to be looking at surgery at another facility; Additional info: Osteomyelitis TECHNIQUE: Imaging protocol: XR Right foot. Views: 3 or more views. COMPARISON: MR foot RT wo/w con [id number] 03/14/2021 10:49 AM FINDINGS: Bones/joints: Pes planus deformity is seen. Negative for acute fractures. Widening of the interspace between the 1st and 2nd metatarsal. There is a hallux valgus deformity in the great toe. Soft tissues: Diffuse soft tissue edema is seen in the dorsal aspect of the foot XR/XR foot RT min 3V* [id number] IMPRESSION: 1. Negative for acute fracture. 2. Hallux valgus deformity great toe. 3. Widened interspace between the 1st and 2nd metatarsal. 4. Pes planus deformity 5. Soft tissue edema dorsal foot
--- NOTE | 2021-11-08 12:08 | PC.PHAR ---
pt and pts haaw verified the pts medications-pts states he takes care of his meds-notes are made in the pharmacy comments
[2021-11-08 12:36] LABS: Reflex Lactate Order REFLEX LACTIC ORDERD
[2021-11-08 13:24] LABS: Lactic Acid level (Lactate) 1.9 mmol/L (0.5-2.2)
--- NOTE | 2021-11-08 14:17 | P.CONIM_ITS ---
Providers/Reason For Consult Consulting Physician/Specialty*: Elizabeth Leigh MD Reason for Consult*: Cellulitis and dysvascular right lower extremity Requesting Physician: Gene King MD Primary Care Provider: Debbie Dietz DO History of Present Illness History of Present Illness Polina Snyder is a 61 year old female who presents emergency room complaining of fevers and chills. She has a fever of 102, and she reports same at home. Upon questioning in the emergency department, she is minimally able to answer questions. She has currently been taking antibiotics for bilateral lower extremity infections the right much worse than the left. She is a wound care patient. She has chronic venous stasis edema with significant skin changes. 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 She is scheduled to have a right below the knee amputation on November [id number] in [place]. She states she has not been feeling well very nauseous mildly short of breath. She denies any abdominal pain or chest pain. The emergency room physician contacted the surgeon in [place] who is planning the amputation. He does not feel that this would require urgent transfer. Review of Systems General: Reports: ROS unobtainable due to medical condition Narrative: Patient is minimally responsive to questions. Meds/Allergies Home Medications and Allergies Home Medications Medication Instructions Recorded Confirmed Last Taken Type potassium chloride 20 mEq 20 meq PO QAM PRN 03/15/20 11/08/21 Unknown History tablet,extended release baclofen 20 mg tablet 20 mg PO BID tab 02/01/21 11/08/21 Unknown History amlodipine 10 mg PO QAM 03/11/21 11/08/21 Unknown History buspirone 5 mg PO TID 03/11/21 11/08/21 Unknown History fenofibrate micronized 200 mg PO BEDTIME 03/11/21 11/08/21 11/07/21 History pantoprazole [Protonix] 40 mg PO BID 03/11/21 11/08/21 Unknown History prochlorperazine maleate 10 mg PO DAILY PRN 03/11/21 11/08/21 Unknown History [Compazine] ondansetron 4 mg disintegrating 4 mg PO Q6H PRN #12 tab 06/07/21 11/08/21 Unknown Rx tablet aspirin 325 mg tablet 325 mg PO DAILY 08/17/21 11/08/21 Unknown History hydroxyzine HCl 25 mg tablet 25 mg PO BID PRN #10 tab 10/07/21 11/08/21 Unknown Rx Probiotic 1 cap PO DAILY 11/08/21 11/08/21 Unknown History albuterol sulfate 2 puff INHALATION Q4H PRN 11/08/21 11/08/21 Unknown History atenolol 100 mg PO BID 11/08/21 11/08/21 Unknown History calcium 1 cap PO DAILY 11/08/21 11/08/21 Unknown History cholecalciferol (vitamin D3) 125 mcg PO DAILY 11/08/21 11/08/21 Unknown History [Vitamin D3] clindamycin HCl 300 mg PO BID 11/08/21 11/08/21 Unknown History duloxetine 40 mg PO DAILY 11/08/21 11/08/21 Unknown History ergocalciferol (vitamin D2) See Rx Instructions .ROUTE .COMPLEX 11/08/21 11/08/21 Unknown History escitalopram oxalate 10 mg PO DAILY 11/08/21 11/08/21 Unknown History fluticasone propionate 2 spray INTRANASAL DAILY PRN 11/08/21 11/08/21 Unknown History furosemide 40 mg PO QAM 11/08/21 11/08/21 Unknown History gabapentin 1,200 mg PO TID 11/08/21 11/08/21 Unknown History ipratropium bromide [Atrovent HFA] 2 puff INHALATION Q6H 11/08/21 11/08/21 Unknown History lidocaine-prilocaine 1 applic TOPICAL . DIRECTED 11/08/21 11/08/21 Unknown History metformin 500 mg PO BID 11/08/21 11/08/21 Unknown History mupirocin 1 applic TOPICAL . DIRECTED 11/08/21 11/08/21 Unknown History Allergies Allergy/AdvReac Type Severity Reaction Status Date / Time adhesive tape Allergy rash Verified 10/07/21 16:32 amitriptyline Allergy Unknown Verified 10/07/21 16:32 nalbuphine [From Nubain] Allergy sick to Verified 10/07/21 16:32 stomach nitrofurantoin Allergy ADR-Vomitin Verified 10/07/21 16:32 [From Macrobid] g Sulfa (Sulfonamide Allergy Itch all Verified 10/07/21 16:32 Antibiotics) over PFSH Acute PFSH: Medical History Cervical post-laminectomy syndrome Nceuibg-Draol-Cljmx disease-like deformity of foot right Chronic pain Depression with anxiety Diabetes mellitus, type II Diabetic neuropathy associated with type 2 diabetes mellitus Diastolic CHF History of cardioversion history of SVT vs for other arrhythmia History of DVT of lower extremity post-operative Hyperlipidemia Hypertension Lumbar radiculopathy Lung cancer according to pain clinic notes, managed at [place], underwent radiation therapy in 2019 Methamphetamine use Substance abuse Torticollis, acquired Has had good results with Botox in the past Surgical History History of arthroplasty of left knee (~1976) History of partial hysterectomy Hx of appendectomy Hx of dilation and curettage Hx of neck surgery x 2, posterior laminectomy and cervical fusion with hardware in place, limited ROM neck at baseline Hx of total knee replacement (~2010) Right Hx of tubal ligation Family History Family/Other Hypertension Depression Anxiety Diabetes Father Aneurysm Mother Hypertension Brother Diabetes Sister Diabetes Social History Smoking and tobacco status: current every day smoker Alcohol intake: never Marital status: History of recent travel: No Additional social history: unknown if patient continues to smoke, documented to smoke previously Vitals/I&O/Wt Last Vital Signs Temp 102.7 F H 11/08/21 10:28 Pulse 88 11/08/21 13:05 Resp 23 H 11/08/21 13:05 BP 125/71 11/08/21 13:05 Pulse Ox 93 11/08/21 13:05 11/07/21 11/08/21 11/08/21 22:59 06:59 14:59 Intake Total 250.000 / 250.000 Balance 250.000 / 250.000 Weight last 48 hrs Weight 190 lb Physical Exam Const: COMMON NORMALS: no acute distress GENERAL APPEARANCE: comfortable ORIENTATION/CONSCIOUSNESS: Yes awake HENMT: COMMON NORMALS: normocephalic and atraumatic HEAD & SCALP: normocephalic and atraumatic Eye: GENERAL EYE: appearance normal, both eyes and all related structures Chest: COMMONS NORMALS: normal inspection of the chest Resp: COMMON NORMALS: normal respiratory effort EFFORT & INSPECTION: Yes symmetric chest movement Extremity: NARRATIVE EXTREMITY EXAM: Bilateral lower extremity exam indicates both legs below the knees have evidence of significant chronic edematous changes with elephantiasis and woody edematous type of findings. There is a large ulceration on the anterior aspect of the right distal tibia. Also, of note, the patient is status post right total knee arthroplasty and these are chronic changes including the cellulitic woody type changes extend above the level of the distal incision placed for the patient's total knee arthroplasty. The total knee arthroplasty incision is well-healed, however. Both legs are obviously dysvascular. The right is definitely worse than the left. Psych: COMMON NORMALS: mental status grossly normal APPEARANCE: Yes grossly normal ATTITUDE: Yes calm and Yes engaged ATTENTION/CONCENTRATION: Yes attention grossly intact Skin: COMMON NORMALS: no rashes or lesions noted GENERAL SKIN EXAM: no rashes or lesions noted Data Micro: Micro: Microbiology 11/08/21 10:50 Blood Culture - Pr eliminary Blood SPECIMEN [facility] 11/08/21 10:35 Blood Culture - Pr eliminary Blood SPECIMEN [facility] A&P Assessment and plan (1) Cellulitis: This patient was seen and evaluated in the emergency department at the request of Dr. Gene King. By history, she has been scheduled for a below- knee amputation in [place] to occur on 11/24/20. That surgeon was contacted regarding possible transfer as she was on the schedule. According to Dr. Gorge dillon, in talking with the surgeon, there has been no preoperative work-up. The patient has not had vascular studies. On my evaluation of the patient, she has cellulitic and chronic edematous skin changes nearly to her knee. They extend past the distal portion of the patient's previous total knee incision. Although this incision is well-healed, the stem of the prosthesis would go below this are a, and any sort of BK amputation would likely be at or above the level of the stem resulting in a potential for total knee arthroplasty infection. Further evaluation I did not feel that there was enough skin to be able to effectively close a BK amputation. If she were to maintain the BK level, she would likely need the consultation of plastic surgeons which are unavailable at our institution. Initially, I also attempted to contact Dr. Champagne, our vascular surgeon, but he is out of town. Subsequently, we did have a conversation and he is willing to see and evaluate the patient for possible above-knee amputation if she is willing to agree to this. Otherwise, further care will be provided by Dr. Champagne regarding this particular patient. I advised Dr. Champagne and Dr. King that I do not feel my training is adequate for above-knee amputation, and in fact, below-knee amputation is not a procedure that I have performed for an extended period of time. Advised him that I feel the patient for the best care needs either Dr. Champagne from a vascular surgery perspective or possible transfer to where plastic surgery would be available and a more experience surgeon with above-knee and below-knee amputations. I have concerns that beginning with a below-knee would likely extend to an above-knee intraoperatively based on the patient's skin conditions and comorbidities. Status: Acute Qualifiers: Laterality: right Site of cellulitis: extremity Site of cellulitis of extremity: lower extremity Qualified Code(s): L03.115 - Cellulitis of right lower limb (2) Venous stasis ulcer: Status: Acute Qualifiers: Venous stasis ulcer site: other part of lower leg Varicose vein presence: unspecified whether present Laterality: right Non-pressure ulcer stage: unspecified non-pressure ulcer stage Qualified Code(s): I83.018 - Varicose veins of right lower extremity with ulcer other part of lower leg; L97.819 - Non-pressure chronic ulcer of other part of right lower leg with unspecified severity Consult Attestations Medical Necessity Statement: The patient requires treatment for the medical service for cellulitis and elevated white blood cell count, and she will be evaluated by vascular surgery for possible above-knee amputation Coding Level of Care Code Acute Annual Giving Director for [facility] Fwd Exam Detailed Diagnoses Cellulitis L03.115 Laterality: right Site of cellulitis: extremity Site of cellulitis of extremity: lower extremity Venous stasis ulcer I83.018; L97.819 Venous stasis ulcer site: other part of lower leg Varicose vein presence: unspecified whether present Laterality: right Non-pressure ulcer stage: unspecified non-pressure ulcer stage
--- NOTE | 2021-11-08 14:59 | PM.HP ---
Providers/Chief Complaint Primary Care Provider: Debbie Dietz DO Chief Complaint: ABDOMINAL PAIN/ FEVER History of Present Illness Polina Snyder is a 61 year old female Medications/Allergies Home Medications Medication Instructions Recorded Confirmed Last Taken Type potassium chloride 20 mEq 20 meq PO QAM PRN 03/15/20 11/08/21 Unknown History tablet,extended release baclofen 20 mg tablet 20 mg PO BID tab 02/01/21 11/08/21 Unknown History amlodipine 10 mg PO QAM 03/11/21 11/08/21 Unknown History buspirone 5 mg PO TID 03/11/21 11/08/21 Unknown History fenofibrate micronized 200 mg PO BEDTIME 03/11/21 11/08/21 11/07/21 History pantoprazole [Protonix] 40 mg PO BID 03/11/21 11/08/21 Unknown History prochlorperazine maleate 10 mg PO DAILY PRN 03/11/21 11/08/21 Unknown History [Compazine] ondansetron 4 mg disintegrating 4 mg PO Q6H PRN #12 tab 06/07/21 11/08/21 Unknown Rx tablet aspirin 325 mg tablet 325 mg PO DAILY 08/17/21 11/08/21 Unknown History hydroxyzine HCl 25 mg tablet 25 mg PO BID PRN #10 tab 10/07/21 11/08/21 Unknown Rx Probiotic 1 cap PO DAILY 11/08/21 11/08/21 Unknown History albuterol sulfate 2 puff INHALATION Q4H PRN 11/08/21 11/08/21 Unknown History atenolol 100 mg PO BID 11/08/21 11/08/21 Unknown History calcium 1 cap PO DAILY 11/08/21 11/08/21 Unknown History cholecalciferol (vitamin D3) 125 mcg PO DAILY 11/08/21 11/08/21 Unknown History [Vitamin D3] clindamycin HCl 300 mg PO BID 11/08/21 11/08/21 Unknown History duloxetine 40 mg PO DAILY 11/08/21 11/08/21 Unknown History ergocalciferol (vitamin D2) See Rx Instructions .ROUTE .COMPLEX 11/08/21 11/08/21 Unknown History escitalopram oxalate 10 mg PO DAILY 11/08/21 11/08/21 Unknown History fluticasone propionate 2 spray INTRANASAL DAILY PRN 11/08/21 11/08/21 Unknown History furosemide 40 mg PO QAM 11/08/21 11/08/21 Unknown History gabapentin 1,200 mg PO TID 11/08/21 11/08/21 Unknown History ipratropium bromide [Atrovent HFA] 2 puff INHALATION Q6H 11/08/21 11/08/21 Unknown History lidocaine-prilocaine 1 applic TOPICAL . DIRECTED 11/08/21 11/08/21 Unknown History metformin 500 mg PO BID 11/08/21 11/08/21 Unknown History mupirocin 1 applic TOPICAL . DIRECTED 11/08/21 11/08/21 Unknown History Allergies Allergy/AdvReac Type Severity Reaction Status Date / Time adhesive tape Allergy rash Verified 10/07/21 16:32 amitriptyline Allergy Unknown Verified 10/07/21 16:32 nalbuphine [From Nubain] Allergy sick to Verified 10/07/21 16:32 stomach nitrofurantoin Allergy ADR-Vomitin Verified 10/07/21 16:32 [From Macrobid] g Sulfa (Sulfonamide Allergy Itch all Verified 10/07/21 16:32 Antibiotics) over PFSH Acute PFSH: Medical History Cervical post-laminectomy syndrome Hlvidcl-Mwsie-Udjwe disease-like deformity of foot right Chronic pain Depression with anxiety Diabetes mellitus, type II Diabetic neuropathy associated with type 2 diabetes mellitus Diastolic CHF History of cardioversion history of SVT vs for other arrhythmia History of DVT of lower extremity post-operative Hyperlipidemia Hypertension Lumbar radiculopathy Lung cancer according to pain clinic notes, managed at [place], underwent radiation therapy in 2019 Methamphetamine use Substance abuse Torticollis, acquired Has had good results with Botox in the past Surgical History History of arthroplasty of left knee (~1976) History of partial hysterectomy Hx of appendectomy Hx of dilation and curettage Hx of neck surgery x 2, posterior laminectomy and cervical fusion with hardware in place, limited ROM neck at baseline Hx of total knee replacement (~2010) Right Hx of tubal ligation Family History Family/Other Hypertension Depression Anxiety Diabetes Father Aneurysm Mother Hypertension Brother Diabetes Sister Diabetes Social History Smoking and tobacco status: current every day smoker Alcohol intake: never Marital status: History of recent travel: No Additional social history: unknown if patient continues to smoke, documented to smoke previously Vitals/I&O/Wt Last Vital Signs Temp 102.7 F H 11/08/21 10:28 Pulse 88 11/08/21 13:05 Resp 23 H 11/08/21 13:05 BP 125/71 11/08/21 13:05 Pulse Ox 93 11/08/21 13:05 11/07/21 11/08/21 11/08/21 22:59 06:59 14:59 Intake Total 250.000 / 250.000 Balance 250.000 / 250.000 Weight last 48 hrs Weight 86.183 kg Data : 11/08/21 10:35 11/08/21 10:35 Micro: Microbiology 11/08/21 10:50 Blood Culture - Preliminary Blood SPECIMEN COLLECTED 11/08/21 10:35 Blood Culture - Preliminary Blood SPECIMEN COLLECTED Coding Level of Care Code Acute 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
--- NOTE | 2021-11-08 15:25 | USCV_ITS ---
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 PT IN TOO MUCH PAIN Patent iliac, femoral, popliteal and infrapopliteal vessels on the right side. Monophasic and continuous waveforms throughout. Elevated Doppler velocities in the iliac, femoral and popliteal arteries. No MIMI was obtained. CONCLUSIONS Features suggestive of possible severe diffuse disease in the right lower extremity arteries. MIMI could not be obtained Consider CTA to better evaluate the arteries, if clinically indicated Dr Pat Whitley MD [facility] (Electronically Signed) Final Date: 10 November 2021 10:09 S
--- NOTE | 2021-11-08 16:45 | PC.NURSE ---
Significant other, Everett Foley, contacted to update on pt condition. Contacted per Hellen Swan RN. Hellen informed Everett the Polina would be going to surgery to have the right leg amputated below the knee. Everett explained that he would not be able to come to the hospital but that a friend may be coming.
--- NOTE | 2021-11-08 16:52 | P.ANESASSM_ITS ---
Pre-Anesthetic Assessment Pre-Anesthetic Assessment: Height/Weight: Height 1.7 m Weight 86.183 kg Temp Pulse Resp BP Pulse Ox 100.4 F H 97 20 H 130/84 90 11/08/21 16:22 11/08/21 16:22 11/08/21 16:22 11/08/21 16:22 11/08/21 16:22 Preop Diagnosis: Cellulitis Proposed Procedure: Operation Date: 11/08/21 17:00 Proposed Procedures p Above Knee Amputation(Right) - Casey Champagne MD Familial anesthetic complications: None Was Beta Lester taken within 24 hours: Yes Was Clonidine taken within 24 hours: N/A Last intake: > 8 hrs Social: Social History: Tobacco and No alcohol Comment: Meth smoked last night, methadone last night Exam: Pre-Anes Outpt Exam: alert, oriented x 3, clear to auscultation bilaterally and regular rate & rhythm Airway: Cervical ROM: Other (mildly limited extension) MP: 3 Dentition: Other (no teeth) Pulmonary: Comments: hx lung cancer CV/HEM: CV/HEM: CHF and HTN GI: GI: GERD Metabolic: Metabolic: DM and Hyperlipidemia Anesthetic Plan: ASA status: 4 Anesthesia: General Risk of > 500 ml blood loss (7ml/kg in children): No PFSH Anesthesia PFSH: Medical History Cervical post-laminectomy syndrome Szuitav-Krquh-Ljbev disease-like deformity of foot right Chronic pain Depression with anxiety Diabetes mellitus, type II Diabetic neuropathy associated with type 2 diabetes mellitus Diastolic CHF History of cardioversion history of SVT vs for other arrhythmia History of DVT of lower extremity post-operative Hyperlipidemia Hypertension Lumbar radiculopathy Lung cancer according to pain clinic notes, managed at [place], underwent radiation therapy in 2019 Methamphetamine use Substance abuse Torticollis, acquired Has had good results with Botox in the past Surgical History History of arthroplasty of left knee (~1976) History of partial hysterectomy Hx of appendectomy Hx of dilation and curettage Hx of neck surgery x 2, posterior laminectomy and cervical fusion with hardware in place, limited ROM neck at baseline Hx of total knee replacement (~2010) Right Hx of tubal ligation Family History Family/Other Hypertension Depression Anxiety Diabetes Father Aneurysm Mother Hypertension Brother Diabetes Sister Diabetes Social History Smoking and tobacco status: current every day smoker Alcohol intake: never Marital status: History of recent travel: No Additional social history: unknown if patient continues to smoke, documented to smoke previously Data Anesthesia CBC & Chem 7: 11/08/21 10:35 11/08/21 10:35 Other Labs: Laboratory Results - last 48 hr 11/08/21 11/08/21 11/08/21 10:35 10:35 10:35 WBC 26.9 H RBC 4.16 Hgb 12.0 Hct 38.5 MCV 92.5 MCH 28.8 MCHC 31.2 RDW 15.6 H Plt Count 332 MPV 9.4 Neut % (Auto) 91.4 Lymph % (Auto) 2.2 [place] % (Auto) 5.1 Eos % (Auto) 0.4 Baso % (Auto) 0.4 Neut # (Auto) 24.56 H Lymph # (Auto) 0.6 L [place] # (Auto) 1.4 H Eos # (Auto) 0.1 Baso # (Auto) 0.1 Nucleated RBC % (auto) 0 Nucleated RBCs # 0.0 Sodium 134 L Potassium 4.0 Chloride 95 L Carbon Dioxide 23 Anion Gap 20.0 H BUN 17 Creatinine 0.3 L GFR Calculation 226.2 H Glucose 138 H Calculated Osmolality 282 L Lactic Acid 2.1 Lactic Acid (Sepsis) Calcium 8.9 Magnesium 1.2 L Total Bilirubin 0.3 AST 13 ALT 11 Alkaline Phosphatase 106 H Creatine Kinase 37 C-Reactive Protein Total Protein 7.2 Albumin 3.6 Globulin 3.6 11/08/21 11/08/21 10:35 12:57 WBC RBC Hgb Hct MCV MCH MCHC RDW Plt Count MPV Neut % (Auto) Lymph % (Auto) [place] % (Auto) Eos % (Auto) Baso % (Auto) Neut # (Auto) Lymph # (Auto) [place] # (Auto) Eos # (Auto) Baso # (Auto) Nucleated RBC % (auto) Nucleated RBCs # Sodium Potassium Chloride Carbon Dioxide Anion Gap BUN Creatinine GFR Calculation Glucose Calculated Osmolality Lactic Acid Lactic Acid (Sepsis) 1.9 Calcium Magnesium Total Bilirubin AST ALT Alkaline Phosphatase Creatine Kinase C-Reactive Protein 84.5 H Total Protein Albumin Globulin Micro: Microbiology 11/08/21 10:50 Blood Culture - Preliminary Blood SPECIMEN COLLECTED 11/08/21 10:35 Blood Culture - Preliminary Blood SPECIMEN COLLECTED Cardiac Studies: No Data to Display
--- NOTE | 2021-11-08 16:54 | PM.CONSULT ---
Providers/Reason For Consult Consulting Physician/Specialty*: Dr. Champagne/cardiothoracic surgery Reason for Consult*: Severe diabetic ulceration with cellulitis right lower extremity Requesting Physician: Dr. Leigh Attending Physician: Casey Champagne MD Primary Care Provider: Debbie Dietz DO History of Present Illness History of Present Illness Polina Snyder is a 61 year old female with a long history of diabetes mellitus and lower extremity diabetic wounds with history of bilateral foot wounds and Charcot deformity. She has been seen since 2018 and most recently she has been followed in wound care services since January of this year. She has bilateral foot diabetic ulcerations right greater than left with skin changes consistent with lymphedema/venous insufficiency. She had a prior right knee replacement. She states she was originally scheduled for right lower extremity amputation on November 24 in [place]. Most recently seen in wound care services on September [address] Dash. At that time she been previously seen by an orthopedic surgeon in [place] and scheduled for her above-knee amputation. She presents today with a increasing cellulitis and leukocytosis of 27,000. Dr. Dash stated he is concerned with the original timing for her amputation and that the potential for septic complications before the definitive procedure. Indeed, with her current presentation, it appears that has occurred. Review of Systems Const: Reports: fever(s), chills, body aches and fatigue Eyes: Denies: change in vision ENMT: Denies: throat pain Card: Reports: edema (Bilateral lower extremities), dyspnea on exertion and orthopnea; Denies: palpitations Resp: Denies: productive cough GI: Reports: heartburn Musc: Reports: back pain, extremity pain, joint pain, joint swelling and muscle cramps Skin/Breast: Reports: erythema and skin swelling Meds/Allergies Home Medications and Allergies Home Medications Medication Instructions Recorded Confirmed Last Taken Type potassium chloride 20 mEq 20 meq PO QAM PRN 03/15/20 11/08/21 Unknown History tablet,extended release baclofen 20 mg tablet 20 mg PO BID tab 02/01/21 11/08/21 Unknown History amlodipine 10 mg PO QAM 03/11/21 11/08/21 Unknown History buspirone 5 mg PO TID 03/11/21 11/08/21 Unknown History fenofibrate micronized 200 mg PO BEDTIME 0411/08/21 11/07/21 History pantoprazole [Protonix] 40 mg PO BID 03/11/21 11/08/21 Unknown History prochlorperazine maleate 10 mg PO DAILY PRN 03/11/21 11/08/21 Unknown History [Compazine] ondansetron 4 mg disintegrating 4 mg PO Q6H PRN #12 tab 06/07/21 11/08/21 Unknown Rx tablet aspirin 325 mg tablet 325 mg PO DAILY 08/17/21 11/08/21 Unknown History hydroxyzine HCl 25 mg tablet 25 mg PO BID PRN #10 tab 10/07/21 11/08/21 Unknown Rx Probiotic 1 cap PO DAILY 11/08/21 11/08/21 Unknown History albuterol sulfate 2 puff INHALATION Q4H PRN 11/08/21 11/08/21 Unknown History atenolol 100 mg PO BID 11/08/21 11/08/21 Unknown History calcium 1 cap PO DAILY 11/08/21 11/08/21 Unknown History cholecalciferol (vitamin D3) 125 mcg PO DAILY 11/08/21 11/08/21 Unknown History [Vitamin D3] clindamycin HCl 300 mg PO BID 11/08/21 11/08/21 Unknown History duloxetine 40 mg PO DAILY 11/08/21 11/08/21 Unknown History ergocalciferol (vitamin D2) See Rx Instructions .ROUTE .COMPLEX 11/08/21 11/08/21 Unknown History escitalopram oxalate 10 mg PO DAILY 11/08/21 11/08/21 Unknown History fluticasone propionate 2 spray INTRANASAL DAILY PRN 11/08/21 11/08/21 Unknown History furosemide 40 mg PO QAM 11/08/21 11/08/21 Unknown History gabapentin 1,200 mg PO TID 11/08/21 11/08/21 Unknown History ipratropium bromide [Atrovent HFA] 2 puff INHALATION Q6H 11/08/21 11/08/21 Unknown History lidocaine-prilocaine 1 applic TOPICAL . DIRECTED 11/08/21 11/08/21 Unknown History metformin 500 mg PO BID 11/08/21 11/08/21 Unknown History mupirocin 1 applic TOPICAL . DIRECTED 11/08/21 11/08/21 Unknown History Allergies Allergy/AdvReac Type Severity Reaction Status Date / Time adhesive tape Allergy rash Verified 10/07/21 16:32 amitriptyline Allergy Unknown Verified 10/07/21 16:32 nalbuphine [From Nubain] Allergy sick to Verified 10/07/21 16:32 stomach nitrofurantoin Allergy ADR-Vomitin Verified 10/07/21 16:32 [From Macrobid] g Sulfa (Sulfonamide Allergy Itch all Verified 10/07/21 16:32 Antibiotics) over PFSH Acute PFSH: Medical History Cervical post-laminectomy syndrome Aedmgdr-Jtzot-Cilyb disease-like deformity of foot right Chronic pain Depression with anxiety Diabetes mellitus, type II Diabetic neuropathy associated with type 2 diabetes mellitus Diastolic CHF History of cardioversion history of SVT vs for other arrhythmia History of DVT of lower extremity post-operative Hyperlipidemia Hypertension Lumbar radiculopathy Lung cancer according to pain clinic notes, managed at [facility], underwent radiation therapy in 2019 Methamphetamine use Substance abuse Torticollis, acquired Has had good results with Botox in the past Surgical History History of arthroplasty of left knee (~1976) History of partial hysterectomy Hx of appendectomy Hx of dilation and curettage Hx of neck surgery x 2, posterior laminectomy and cervical fusion with hardware in place, limited ROM neck at baseline Hx of total knee replacement (~2010) Right Hx of tubal ligation Family History Family/Other Hypertension Depression Anxiety Diabetes Father Aneurysm Mother Hypertension Brother Diabetes Sister Diabetes Social History Smoking and tobacco status: current every day smoker Alcohol intake: never Marital status: History of recent travel: No Additional social history: unknown if patient continues to smoke, documented to smoke previously Vitals/I&O/Wt Last Vital Signs Temp 100.4 F H 11/08/21 16:22 Pulse 97 11/08/21 16:22 Resp 20 H 11/08/21 16:22 BP 130/84 11/08/21 16:22 Pulse Ox 90 11/08/21 16:22 11/08/21 11/08/21 11/08/21 06:59 14:59 22:59 Intake Total 250.000 / 250.000 Balance 250.000 / 250.000 Weight last 48 hrs Weight 190 lb Physical Exam Const: COMMON NORMALS: patient oriented x3 EXAM LIMITATIONS: physical limitations HENMT: COMMON NORMALS: normocephalic, atraumatic, hearing grossly normal bilaterally and external ears normal HEAD & SCALP: normocephalic and atraumatic EXTERNAL EAR: Yes external ears normal Neck/C-Spine: COMMON NORMALS: no lymphadenopathy, no JVD and No carotid bruits Chest: COMMONS NORMALS: normal palpation of entire chest wall Resp: COMMON NORMALS: No retractions and No use of accessory muscles EFFORT & INSPECTION: Yes able to speak in complete sentences and Yes symmetric chest movement Cardio: COMMON NORMALS: no JVD GI: COMMON NORMALS: Normal to inspection, nondistended, normoactive bowel sounds present and Soft to palpation PALPATION: Yes Soft to palpation Extremity: COMMON NORMALS: negative for normal to inspection OTHER: Chronic changes of venous insufficiency with skin changes up to the knees bilaterally worse on the right than the left. Open lesions to the anterior lateral aspect of the right lower extremity above the ankle as well as open wounds to the right foot and to the lesser degree to the left great toe. Right foot and leg wounds are quite deep. There is drainage which is cloudy. There is extensive cellulitis of the right lower extremity. She has received vancomycin about 3 hours ago upon her presentation to the emergency department. Extensive bony malalignment related to Charcot deformity which has been longstanding. Neuro: COMMON NORMALS: patient oriented x3 and moves all extremities Data Micro: Micro: Microbiology 11/08/21 10:50 Blood Culture - Pr eliminary Blood SPECIMEN [facility] 11/08/21 10:35 Blood Culture - Pr eliminary Blood SPECIMEN [facility] A&P Assessment and plan (1) Cellulitis: Extensive cellulitis right lower extremity with numerous diabetic ulcerations quite deep on the lateral aspect of the right foot with bony exposure. I discussed very carefully and frankly with Ms. Snyder the recommendation to proceed with expeditions right above-knee amputation related to her cellulitis and leukocytosis. Rationale was discussed as well as the risk related to her numerous comorbidities. She stated understanding and wishes for us to proceed. Written consent was reviewed with her carefully, witnessed by nurses, and signed. Given the extensive nature of her cellulitis and right lower extremity ulceration changes, I believe we should proceed to a directed fashion for right above-knee amputation. I appreciate the oversight of medical review by our hospitalist colleagues. Status: Acute Qualifiers: Laterality: right Site of cellulitis: extremity Site of cellulitis of extremity: lower extremity Qualified Code(s): L03.115 - Cellulitis of right lower limb Consult Attestations Medical Necessity Statement: Severe diabetic ulcerations with a sending cellulitis and leukocytosis Time Spent in Patient Care: Greater than 35 minutes Coding Level of Care Code Acute Adjunct [facility] Diagnoses Cellulitis L03.115 Laterality: right Site of cellulitis: extremity Site of cellulitis of extremity: lower extremity
[2021-11-08 17:01] LABS: Adenovirus Not Detected (NOT DETECT); Chlamydia Pneumoniae Not Detected (NOT DETECT); Coronavirus 229E,HKU1,NL63,OC4 Not Detected (NOT DETECT); Human Metapneumovirus Not Detected (NOT DETECT); Human Rhinovirus/Enterovirus Not Detected (NOT DETECT); Influenza A Not Detected (NOT DETECT); Influenza A H1 Not Detected (NOT DETECT); Influenza A H1-2009 Not Detected (NOT DETECT); Influenza A H3 Not Detected (NOT DETECT); Influenza B Not Detected (NOT DETECT); Mycoplasma Pneumoniae Not Detected (NOT DETECT); Parainfluenza Virus Type 1 Not Detected (NOT DETECT); Parainfluenza Virus Type 2 Not Detected (NOT DETECT); Parainfluenza Virus Type 3 Not Detected (NOT DETECT); Parainfluenza Virus Type 4 Not Detected (NOT DETECT); Respiratory Syncytial Virus A Not Detected (NOT DETECT); Respiratory Syncytial Virus B Not Detected (NOT DETECT); SARS-COV-2 Not Detected (NOT DETECT)
[2021-11-08] MEDS: vancomycin 1,000 MG SDV 1000 MG XX (17:56)
--- NOTE | 2021-11-08 18:19 | PC.NURSE ---
1818 spoke with Laly who is patient's life partner and gave him an update. TRI
[2021-11-08 20:35] LABS: Glucose Point of Care 110 mg/dL (70-110)
--- NOTE | 2021-11-08 20:43 | ANE.PACU2 ---
Inpatient post-anesthesia follow up: Airway intact: No Vital signs: Temperature 98.3 F Pulse Rate 85 Respiratory Rate 18 Blood Pressure 99/56 Pulse Oximetry 96 Oxygen Delivery Me thod Venturi Mask Oxygen Flow Rate 6 Fraction of Inspir ed Oxygen Hydration adequate: Yes Nausea and vomiting: No Pain level: 2 Mental status: Baseline
--- NOTE | 2021-11-08 20:54 | P.OP_ITS ---
Operative Report Date of procedure: November 08, 2021 Pre-op Diagnosis: Cellulitis, diabetic ulcers with bone exposure Post-op diagnosis: same Procedure Done: Right above-knee amputation Specimens removed/disposition: Right leg amputation mid thigh Surgeon: Casey Champagne Anesthesia: General Estimated blood loss (mL): 150 Complications: None Condition: stable Disposition: PACU Brief History: Ms. Snyder is a 61-year-old diabetic female with progressive ulcerations of the right lower extremity with bony exposure has been cared for in wound care services since January of this year. She was tentatively scheduled for a right above-knee amputation by orthopedic surgeon out [facility] on November 24. She presented to the emergency department with fever, chills, leukocytosis of near 27,000, and draining wounds of the right foot and lower leg. Extensive cellulitis up to the knee. It is clear that her ulcerations are progressing more rapidly with now extensive right leg cellulitis. She is developing worsening systemic symptoms. Given these findings, we recommended expeditious right above-knee amputation. Details the risk of the procedure were carefully and frankly discussed. Appropriate consents were reviewed and signed. Procedure: Ms. Snyder was taken to the operating room and placed on the OR table in the supine position. She underwent general endotracheal anesthesia. The entire right lower extremity was sterilely prepped and draped. Right thigh was marked for incision line. #10 scalpel blade was utilized to circumferentially incise the skin in a fish[place] pattern. Anterior musculature was sharply divided utilizing scalpel and minimal use of cautery. Periosteal elevator was used for dissecting the periosteum off of the femur. Medial dissection exposed the femoral artery and vein which were controlled individually, and underwent double ligation. Oscillating saw was utilized to divide the femur. Amputation knife was then used posteriorly to complete amputation of the right lower extremity. Meticulous inspection was carried out and hemostasis was controlled with judicious use of cautery, surgical clips, and suture ligature as required. The sciatic nerve was dissected proximally, ligated, and divided. The wound was irrigated with large amounts of antibiotic solution. Hemostasis was confirmed. A large Hemovac drain was placed beneath the fascia. The fascia was reapproximated with interrupted 0 and 2-0 Vicryl suture. Skin was reapproximated in an interrupted mattress fashion with monofilament suture. Sterile dressings were applied followed by a bulky dressing. Next,, she underwent curette debridement of ulcerations of the left foot and leg. Most of these were superficial with 1 extending to the just at the adipose layer. Wet-to-dry dressings were applied to these wounds and they will be changed daily. Ms. Snyder tolerated the procedure well and was taken to PACU.) Was kept in contact by the operating team as to her progress. She will continue convalescence on the medical/surgical drake.
[2021-11-08] MEDS: piperacillin-tazobactam 3.375 GM in sodium chloride 0.9% (plus) 50 ML IV (22:43)
[2021-11-08] MEDS: lactated ringers 1,000 ML 100 ML IV (22:44)
[2021-11-08] MEDS: HYDROmorphone 1 mg/mL INJ 1 mL 0.5 MG IVP (22:44)
--- NOTE | 2021-11-08 22:56 | PC.PHAR ---
Vancomycin is dosed at 1000mg IVPB every 8 hours to produce a predicted trough level of 12.14 (population based pharmacokinetic analysis). A trough level hs been ordered from the lab to be obtained before the fourth dose to confirm and adjust if needed.
--- NOTE | 2021-11-08 22:58 | PC.PHAR ---
Zosyn is dosed at 3.375gm IVPB every 8 hours on the basis of the creatinine clearance of 222.07. Each dose is to be infused over four hours per the extended infusion protocol.
[2021-11-09] VITALS (11 sets, daily range): BP systolic 102–131; BP diastolic 64–76; PULSE 81–97; RESP 16–22; TEMP 36.3–36.9; O2SAT 93–100
--- NOTE | 2021-11-09 00:36 | P.HP_ITS ---
Providers/Chief Complaint Admitting Physician: Casey Champagne MD Primary Care Provider: Debbie Dietz DO Chief Complaint: ABDOMINAL PAIN/ FEVER History of Present Illness 61-year-old with past medical history of hypertension, hyperlipidemia, reported lung cancer, COVID-19 infection on 08/2021, diabetes mellitus with chronic lower extremity ulcer/infection on chronic clindamycin 300mg PO BID who presented to ER with fever. This was associated with generalized weakness, nausea and vomiting. Upon arrival to ER patient was noted to have worsening right lower extremity infection as per ER/ortho/surgery notes. Lab work up showed a WBC of 26.9 and magnesium of 1.2 COVID -19 PCR was not detected. Started on broad spectrum antibiotics including vancomycin and Zosyn. Patient was seen by orthopedic surgery as well as cardiothoracic surgery and taken for a right AKA. Patient was in the post op period by me. Did not appear jose in any distress. Review of Systems General: Reports: 10 or more systems reviewed and unremarkable except in HPI and below Medications/Allergies Home Medications Medication Instructions Recorded Confirmed Last Taken Type potassium chloride 20 mEq 20 meq PO QAM PRN 03/15/20 11/08/21 Unknown History tablet,extended release baclofen 20 mg tablet 20 mg PO BID tab 02/01/21 11/08/21 Unknown History amlodipine 10 mg PO QAM 03/11/21 11/08/21 Unknown History buspirone 5 mg PO TID 03/11/21 11/08/21 Unknown History fenofibrate micronized 200 mg PO BEDTIME 03/11/21 11/08/21 11/07/21 History pantoprazole [Protonix] 40 mg PO BID 03/11/21 11/08/21 Unknown History prochlorperazine maleate 10 mg PO DAILY PRN 03/11/21 11/08/21 Unknown History [Compazine] ondansetron 4 mg disintegrating 4 mg PO Q6H PRN #12 tab 06/07/21 11/08/21 Unknown Rx tablet aspirin 325 mg tablet 325 mg PO DAILY 08/17/21 11/08/21 Unknown History hydroxyzine HCl 25 mg tablet 25 mg PO BID PRN #10 tab 10/07/21 11/08/21 Unknown Rx Probiotic 1 cap PO DAILY 11/08/21 11/08/21 Unknown History albuterol sulfate 2 puff INHALATION Q4H PRN 11/08/21 11/08/21 Unknown History atenolol 100 mg PO BID 11/08/21 11/08/21 Unknown History calcium 1 cap PO DAILY 11/08/21 11/08/21 Unknown History cholecalciferol (vitamin D3) 125 mcg PO DAILY 11/08/21 11/08/21 Unknown History [Vitamin D3] clindamycin HCl 300 mg PO BID 11/08/21 11/08/21 Unknown History duloxetine 40 mg PO DAILY 11/08/21 11/08/21 Unknown History ergocalciferol (vitamin D2) See Rx Instructions .ROUTE .COMPLEX 11/08/21 11/08/21 Unknown History escitalopram oxalate 10 mg PO DAILY 11/08/21 11/08/21 Unknown History fluticasone propionate 2 spray INTRANASAL DAILY PRN 11/08/21 11/08/21 Unknown History furosemide 40 mg PO QAM 11/08/21 11/08/21 Unknown History gabapentin 1,200 mg PO TID 11/08/21 11/08/21 Unknown History ipratropium bromide [Atrovent HFA] 2 puff INHALATION Q6H 11/08/21 11/08/21 Unknown History lidocaine-prilocaine 1 applic TOPICAL . DIRECTED 11/08/21 11/08/21 Unknown His tory metformin 500 mg PO BID 11/08/21 11/08/21 Unknown History mupirocin 1 applic TOPICAL . DIRECTED 11/08/21 11/08/21 Unknown History Allergies Allergy/AdvReac Type Severity Reaction Status Date / Time adhesive tape Allergy rash Verified 10/07/21 16:32 amitriptyline Allergy Unknown Verified 10/07/21 16:32 nalbuphine [From Nubain] Allergy sick to Verified 10/07/21 16:32 stomach nitrofurantoin Allergy ADR-Vomitin Verified 10/07/21 16:32 [From Macrobid] g Sulfa (Sulfonamide Allergy Itch all Verified 10/07/21 16:32 Antibiotics) over PFSH Acute PFSH: Medical History (Updated 11/09/21 @ 02:53 by Kiersten Yang MD) Cervical post-laminectomy syndrome Wmbtyon-Hnozw-Zkkor disease-like deformity of foot right Chronic pain Depression with anxiety Diabetes mellitus, type II Diabetic neuropathy associated with type 2 diabetes mellitus Diastolic CHF History of cardioversion history of SVT vs for other arrhythmia History of DVT of lower extremity post-operative Hyperlipidemia Hypertension Lumbar radiculopathy Lung cancer according to pain clinic notes, managed at [facility], underwent radiation therapy in 2019 Methamphetamine use Substance abuse Torticollis, acquired Has had good results with Botox in the past Surgical History History of arthroplasty of left knee (~1976) History of partial hysterectomy Hx of appendectomy Hx of dilation and curettage Hx of neck surgery x 2, posterior laminectomy and cervical fusion with hardware in place, limited ROM neck at baseline Hx of total knee replacement (~2010) Right Hx of tubal ligation Family History Family/Other Hypertension Depression Anxiety Diabetes Father Aneurysm Mother Hypertension Brother Diabetes Sister Diabetes Social History Smoking and tobacco status: current every day smoker Alcohol intake: never Marital status: History of recent travel: No Additional social history: unknown if patient continues to smoke, documented to smoke previously Vitals/I&O/Wt Last Vital Signs Temp 97.7 F 11/09/21 00:45 Pulse 83 11/09/21 00:45 Resp 17 11/09/21 00:45 BP 115/70 11/09/21 00:45 Pulse Ox 97 11/09/21 00:45 11/08/21 11/08/21 11/09/21 14:59 22:59 06:59 Intake Total 250.000 / 585.971 2633 / 1910.000 50 / 1960.000 Output Total 300 / 300 Balance 250.000 / 312.288 9424 / 1610.000 50 / 1660.000 Weight last 48 hrs Weight 86.183 kg Physical Exam Narrative: EXAM NARRATIVE: General: Alert, awake on o2 HEENT; Grossly unremarkable CVS; RRR CHEST: decrease at bases, non-labored ABD: soft,nt.nd Ext: S/p Right AKA post op dressing. Left lower ext wound with dressing Urinary Catheter Management^: Garber: Cath Placed During This Visit: yes Urinary Catheter Date of Insertion: 11/08/21 Urinary Catheter Time of Insertion: 17:00 Data : 11/08/21 10:35 11/08/21 10:35 Micro: Microbiology 11/08/21 10:50 Blood Culture - Preliminary Blood SPECIMEN COLLECTED 11/08/21 10:35 Blood Culture - Preliminary Blood SPECIMEN COLLECTED A&P Assessment and plan (1) Cellulitis: Status: Acute Qualifiers: Laterality: right Site of cellulitis: extremity Site of cellulitis of extremity: lower extremity Qualified Code(s): L03.115 - Cellulitis of right lower limb (2) Hypertension: Status: Chronic Qualifiers: Hypertension type: unspecified Qualified Code(s): I10 - Essential (primary) hypertension (3) Hyperlipidemia: Status: Chronic Qualifiers: Hyperlipidemia type: unspecified Qualified Code(s): E78.5 - Hyperlipidemia, unspecified (4) Anemia: Status: Acute (5) Venous stasis ulcer: Status: Acute Qualifiers: Venous stasis ulcer site: other part of lower leg Varicose vein presence: unspecified whether present Laterality: right Non-pressure ulcer stage: unspecified non-pressure ulcer stage Qualified Code(s): I83.018 - Varicose veins of right lower extremity with ulcer other part of lower leg; L97.819 - Non-pressure chronic ulcer of other part of right lower leg with unspecified severity (6) Diabetes mellitus, type II: Status: Acute Qualifiers: Diabetes mellitus terminologist insulin use: without intermediate use Diabetes mellitus complication status: with diabetic arthropathy Diabetes mellitus complication detail: with other arthropathy Qualified Code(s): E11.618 - Type 2 diabetes mellitus with other diabetic arthropathy Additional A&P Information Sepsis due to infected RLE ulcer/cellulitis - CTS on board ? S/p AKA - Post op management per surgery - Continue IV vancomycin - Continue zosyn - Follow up on culture - Pain control - PT consult / will need orthotic - Continue IVF - Repeat cbc/cmp in am Additional Medical Problems - Diabetes Mellitus - Hypertension - Hyperlipidemia - Hx of COVID19 - Hx of Lung cancer - Peripheral neuropathy DVT ppx - Start heparin when ok with surgery Attestations Medical Necessity Statement*: will require > 2 midnight stay in hospital for eval and treatment Time Spent in Patient Care: Greater than 35 minutes (>than 50% of time spent in counselling and/or direct pt care on unit) . Coding Level of Care Code Acute Magician/Illusionist for [facility] Diagnoses Cellulitis L03.115 Laterality: right Site of cellulitis: extremity Site of cellulitis of extremity: lower extremity Hypertension I10 Hypertension type: unspecified Hyperlipidemia E78.5 Hyperlipidemia type: unspecified Anemia D64.9 Venous stasis ulcer I83.018; L97.819 Venous stasis ulcer site: other part of lower leg Varicose vein presence: unspecified whether present Laterality: right Non-pressure ulcer stage: unspecified non-pressure ulcer stage Diabetes mellitus, type II E11.618 Diabetes mellitus intermediate insulin use: without intermediate use Diabetes mellitus complication status: with diabetic arthropathy Diabetes mellitus complication detail: with other arthropathy
[2021-11-09] MEDS: vancomycin 1,000 MG in sodium chloride 0.9% 250 ML 250 MG IV ×4 (01:05→14:27)
[2021-11-09 02:41] LABS: Basophils # 0.1 10^3/uL (0.0-0.1); Basophils % 0.4 %; Eosinophils % 0.1 %; Hematocrit 28.2 % (37.0-47.0); Hemoglobin 8.6 g/dL (11.5-15.3); Lymphocytes # 0.5 10^3/uL (0.8-4.8); Lymphocytes % 2.7 %; Mean Corpuscular HGB Conc 30.5 g/dL (30.0-36.0); Mean Corpuscular Hemoglobin 28.7 pg (28.0-34.0); Mean Platelet Volume 9.6 fL (7.4-10.4); Monocytes # 0.7 10^3/uL (0.2-0.9); Monocytes % 3.6 %; Neutrophils # 16.82 10^3/uL (1.8-7.7); Neutrophils % 92.4 %; Nucleated Red Blood Cells % 0 %; Platelet Count 253 10^3/cmm (130-400); Red Cell Distribution Width 16.1 % (12.1-15.1); White Blood Count 18.2 10^3/uL (4.0-10.0)
[2021-11-09 03:23] LABS: Alanine Aminotransferase 9 U/L (0-33); Albumin Level 2.7 g/dL (3.5-5.2); Alkaline Phosphatase 77 IU/L (35-105); Anion Gap 15.5 (5-19); Aspartate Amino Transferase 15 U/L (0-32); Blood Urea Nitrogen 13 mg/dL (8-23); Calcium 7.1 mg/dL (8.5-10.5); Carbon Dioxide 25 mmol/L (22-29); Chloride 104 mmol/L (98-107); Globulin 2.9 g/dL (1.3-4.6); Glomerular Filtration Rate 226.2 mL/min (90-130); Glucose 107 mg/dL (65-115); Osmolality Calculated 293 mOsm/kg (285-295); Potassium 3.5 mmol/L (3.5-5.1); Sodium 141 mmol/L (136-145); Total Bilirubin 0.4 mg/dL (0.15-1.2); Total Protein 5.6 g/dL (6.6-8.7)
[2021-11-09] MEDS: oxyCODONE-APAP 10-325 mg Tablet 1 TAB PO (04:17)
[2021-11-09] MEDS: HYDROmorphone 1 mg/mL INJ 1 mL 0.5 MG IVP ×5 (05:03→22:46)
[2021-11-09 06:45] LABS: Glucose Point of Care 147 mg/dL (70-110)
[2021-11-09] MEDS: piperacillin-tazobactam 3.375 GM in sodium chloride 0.9% (plus) 50 ML IV ×3 (06:50→21:53)
[2021-11-09 08:07] LABS: Add Urine Microscopic? YES; Bilirubin Urine Neg (Negative); Blood Urine 3+ (Negative); Glucose Urine UA Norm (Normal); Ketones Urine Negative (Negative); Leukocyte Esterase Urine Negative (Negative); Nitrate Urine Negative (Negative); Protein Urine Trace (Negative); Specific Gravity, Urine 1.015 (1.005-1.030); Urine Appearance Clear (CLEAR); Urine Color Yellow (Yellow); Urobilinogen Urine Norm (Negative); pH Urine 5 (5-7)
[2021-11-09 08:09] LABS: Add Urine Culture? Yes; Bacteria Urine 1+ /hpf; RBC Urine 15-25 /hpf (0-2); WBC Urine 0-4 /hpf (0-5)
[2021-11-09] MEDS: pantoprazole DR 40 mg Tablet PO (08:45)
[2021-11-09] MEDS: lactated ringers 1,000 ML 100 ML IV ×2 (08:46→16:45)
--- NOTE | 2021-11-09 11:06 | P.PN_ITS ---
Subjective Subjective: Interval history: Postop day #1 status post right above-knee amputation. Estimated Hemovac drain output 100 cc since surgery. Continuing vancomycin and Zosyn IV. White blood cell count down to 18.2. Temperature 97.5 degrees Postop pain appears to be under good control. Surgical dressings are in place. She is conversive this afternoon and appears comfortable. She does wish to transition to a regular diet and I believe given her good glucose readings, this is not unreasonable to help her with oral intake. Modest anemia noted. Vital signs are stable. Discussed at length with Ms. Snyder we will need to begin assisting with transitioning to chair for improved pulmonary toilet. Vitals/I&O/Wt Last Vital Signs Temp 97.5 F L 11/09/21 07:52 Pulse 81 11/09/21 07:52 Resp 18 11/09/21 07:52 BP 131/76 11/09/21 07:52 Pulse Ox 97 11/09/21 07:52 11/08/21 11/09/21 11/09/21 22:59 06:59 14:59 Intake Total 1660 / 1910.000 780 / 2690.000 1800 / 1800 Output Total 300 / 300 900 / 1200 Balance 1360 / 1610.000 -120 / 0241.376 3748 / 1800 Weight last 48 hrs Weight 190 lb Physical Exam Extremity: OTHER: Postop right AKA surgical dressing is in place, clean and dry. Hemovac drain is in position. Urinary Catheter Management^: Garber: Cath Placed During This Visit: yes Reason for Continuing Indwelling Catheter: Perioperative Use in Selected Surgeries Urinary Catheter Date of Insertion: 11/08/21 Urinary Catheter Time of Insertion: 17:00 Data : 11/09/21 02:16 11/09/21 02:16 Micro: Microbiology 11/08/21 10:35 Blood Culture - Preliminary Blood 11/08/21 10:50 Blood Culture - Preliminary Blood SPECIMEN COLLECTED A&P Assessment and plan (1) Status post above-knee amputation of right lower extremity: POD #1 status post right above-knee amputation Status post debridement left lower extremity ulcers Plan: We will change ADA diet to regular diet. Continue before meals and at bedtime fingersticks and insulin Out of bed in chair with Nubia lift with confirmation of adequate staff. CBC in a.m. I will plan to remove surgical dressings tomorrow and assess Hemovac drain output to determine whether it can be DC'd. We will adjust antibiotics as appropriate from cultures. I do know 1 of 3 blood culture bottles was positive for gram-positive cocci in chains. Identification is pending. We appreciate the oversight had medical management of our hospitalist colleagues. 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
[2021-11-09 11:07] LABS: Glucose Point of Care 123 mg/dL (70-110)
--- NOTE | 2021-11-09 11:13 | P.PN_ITS ---
Subjective Subjective: Interval history: Patient was seen and examined this morning postop day #1 status post right above-knee amputation. was complaining of pain in the right lower extremity.Her other vitals and labs have been reviewed. Medications: Reviewed: Yes Vitals/I&O/Wt Last Vital Signs Temp 97.5 F L 11/09/21 07:52 Pulse 81 11/09/21 07:52 Resp 18 11/09/21 07:52 BP 131/76 11/09/21 07:52 Pulse Ox 97 11/09/21 07:52 11/08/21 11/09/21 11/09/21 22:59 06:59 14:59 Intake Total 1660 / 1910.000 780 / 2690.000 1850 / 1850 Output Total 300 / 300 900 / 1200 Balance 1360 / 1610.000 -120 / 8359.370 2808 / 1850 Weight last 48 hrs Weight 86.183 kg Physical Exam Const: COMMON NORMALS: patient oriented x3 HENMT: COMMON NORMALS: normocephalic and atraumatic HEAD & SCALP: normocephalic and atraumatic Chest: CHEST: Yes Symmetrical chest wall rise Resp: COMMON NORMALS: clear to auscultation bilaterally EFFORT & INSPECTION: Yes symmetric chest movement AUSCULTATION: clear to auscultation bilaterally Cardio: COMMON NORMALS: regular rate, regular rhythm, S1 normal heart sound present, S2 normal heart sound present, No gallops present (Cardio), No murmurs present (Cardio), No rub (Cardio) and Peripheral pulses 2+ throughout RATE: regular rate RHYTHM: regular rhythm HEART SOUNDS: S1 normal heart sound present and S2 normal heart sound present PERIPHERAL PULSES: Peripheral pulses 2+ throughout GI: COMMON NORMALS: Normal to inspection, nondistended, normoactive bowel sounds present, Soft to palpation, non-tender, No hepatosplenomegaly present and no masses AUSCULTATION: Yes normoactive bowel sounds PALPATION: Yes Soft to palpation and Yes No hepatosplenomegaly present RECTAL EXAM: deferred Extremity: COMMON NORMALS: no clubbing, cyanosis or edema and no pedal edema NARRATIVE EXTREMITY EXAM: right AKA surgical dressing is in place, clean and dry. Hemovac drain is in position. Neuro: COMMON NORMALS: patient oriented x3 Urinary Catheter Management^: Garber: Cath Placed During This Visit: yes Reason for Continuing Indwelling Catheter: Perioperative Use in Selected Surgeries Urinary Catheter Date of Insertion: 11/08/21 Urinary Catheter Time of Insertion: 17:00 Data : 11/09/21 02:16 11/09/21 02:16 Micro: Microbiology 11/08/21 10:35 Blood Culture - Preliminary Blood 11/08/21 10:50 Blood Culture - Preliminary Blood SPECIMEN COLLECTED A&P Assessment and plan (1) Cellulitis: Status: Acute Qualifiers: Laterality: right Site of cellulitis: extremity Site of cellulitis of extremity: lower extremity Qualified Code(s): L03.115 - Cellulitis of right lower limb (2) Hypertension: Status: Chronic Qualifiers: Hypertension type: unspecified Qualified Code(s): I10 - Essential (primary) hypertension (3) Hyperlipidemia: Status: Chronic Qualifiers: Hyperlipidemia type: unspecified Qualified Code(s): E78.5 - Hyperlipidemia, unspecified (4) Anemia: Status: Acute (5) Venous stasis ulcer: Status: Acute Qualifiers: Laterality: right Non-pressure ulcer stage: unspecified non-pressure ulcer stage Varicose vein presence: unspecified whether present Venous stasis ulcer site: other part of lower leg Qualified Code(s): I83.018 - Varicose veins of right lower extremity with ulcer other part of lower leg; L97.819 - Non-pres sure chronic ulcer of other part of right lower leg with unspecified severity (6) Diabetes mellitus, type II: Status: Acute Qualifiers: Diabetes mellitus complication detail: with other arthropathy Diabetes mellitus complication status: with diabetic arthropathy Diabetes mellitus group home insulin use: without pest control worker helper use Qualified Code(s): E11.618 - Type 2 diabetes mellitus with other diabetic arthropathy Additional A&P Information Sepsis due to infected RLE ulcer/cellulitis - CTS on board ? S/p AKA - Post op management per surgery - Continue IV vancomycin - Continue zosyn - Follow up on culture - Pain control - PT consult / will need orthotic - Continue IVF - Repeat cbc/cmp in am Additional Medical Problems - Diabetes Mellitus - Hypertension - Hyperlipidemia - Hx of COVID19 - Hx of Lung cancer - Peripheral neuropathy DVT ppx - Start heparin when ok with surgery Attestations Medical Necessity Statement*: Needs to be in hospital for management of sepsis secondary to right lower extremity ulcer/cellulitis. Coding Level of Care Code Acute Gis Analyst Developer for [facility] Diagnoses Cellulitis L03.115 Laterality: right Site of cellulitis: extremity Site of cellulitis of extremity: lower extremity Hypertension I10 Hypertension type: unspecified Hyperlipidemia E78.5 Hyperlipidemia type: unspecified Anemia D64.9 Venous stasis ulcer I83.018; L97.819 Laterality: right Non-pressure ulcer stage: unspecified non-pressure ulcer stage Varicose vein presence: unspecified whether present Venous stasis ulcer site: other part of lower leg Diabetes mellitus, type II E11.618 Diabetes mellitus complication detail: with other arthropathy Diabetes mellitus complication status: with diabetic arthropathy Diabetes mellitus pest control worker helper insulin use: without pest control worker helper use
[2021-11-09 17:11] LABS: Glucose Point of Care 116 mg/dL (70-110)
[2021-11-09 20:12] LABS: Glucose Point of Care 186 mg/dL (70-110)
[2021-11-10] VITALS (12 sets, daily range): BP systolic 121–151; BP diastolic 66–77; PULSE 74–97; RESP 16–18; TEMP 36.4–37.1; O2SAT 91–100
--- NOTE | 2021-11-10 00:49 | PC.PHAR ---
Vancomcyin trough level before fourth dose of 1gm IVPB every 8 hours is 8.0. Dosage is increased to 1250mg IVPB every 8 hours with another trough level to be obtained before the fourth 1250mg dose to determine if further adjustment is needed.
[2021-11-10] MEDS: vancomycin 1,250 MG/250 ML PIGGYBACK 250 MG IV ×3 (00:51→17:40)
[2021-11-10 02:26] LABS: Glucose Point of Care 131 mg/dL (70-110)
[2021-11-10] MEDS: oxyCODONE-APAP 10-325 mg Tablet 1 TAB PO ×4 (03:01→17:40)
[2021-11-10] MEDS: lactated ringers 1,000 ML 100 ML IV ×2 (03:18→13:48)
[2021-11-10 05:40] LABS: Basophils # 0.1 10^3/uL (0.0-0.1); Basophils % 0.4 %; Eosinophils # 0.1 10^3/uL (0.0-0.8); Eosinophils % 1.3 %; Hematocrit 27.6 % (37.0-47.0); Hemoglobin 8.5 g/dL (11.5-15.3); Lymphocytes % 8.8 %; Mean Corpuscular HGB Conc 30.8 g/dL (30.0-36.0); Mean Corpuscular Hemoglobin 29.1 pg (28.0-34.0); Mean Corpuscular Volume 94.5 fl (81-99); Mean Platelet Volume 9.8 fL (7.4-10.4); Monocytes # 1.1 10^3/uL (0.2-0.9); Monocytes % 9.7 %; Neutrophils # 8.75 10^3/uL (1.8-7.7); Neutrophils % 78.1 %; Nucleated Red Blood Cells % 0 %; Platelet Count 246 10^3/cmm (130-400); Red Blood Count 2.92 10^6/uL (4.1-5.3); Red Cell Distribution Width 15.9 % (12.1-15.1); White Blood Count 11.2 10^3/uL (4.0-10.0)
[2021-11-10] MEDS: piperacillin-tazobactam 3.375 GM in sodium chloride 0.9% (plus) 50 ML IV ×3 (05:46→23:43)
[2021-11-10] MEDS: HYDROmorphone 1 mg/mL INJ 1 mL 0.5 MG IVP ×3 (05:49→21:28)
[2021-11-10 06:31] LABS: Glucose Point of Care 120 mg/dL (70-110)
[2021-11-10 06:37] LABS: Slide Review Slide Review Perform
[2021-11-10] MEDS: TRAMadol 50 mg Tablet 100 MG PO (08:10)
[2021-11-10] MEDS: pantoprazole DR 40 mg Tablet PO (08:11)
[2021-11-10] MEDS: ketorolac 30 mg/mL INJ IVP (08:11)
--- NOTE | 2021-11-10 09:52 | P.PN_ITS ---
Subjective Subjective: Interval history: Afebrile. Vital signs stable. 1 blood culture bottle with gram-positive cocci in chains, identification pending. White count is down to 11.2. Accu-Cheks are under good control. Hemovac drain output reported to be less than 30 cc in past 24 hours. There is minimal blood in the Hemovac drain during my inspection. Appears to be under good control. She is transitioning to oxycodone with less need for IV medication. Vitals/I&O/Wt Last Vital Signs Temp 97.8 F 11/10/21 08:00 Pulse 97 11/10/21 08:00 Resp 18 11/10/21 09:19 BP 133/66 11/10/21 08:00 Pulse Ox 100 11/10/21 08:00 11/09/21 11/10/21 11/10/21 22:59 06:59 14:59 Intake Total 1338.333 / 3188.333 1540 / 4728.333 240 / 240 Output Total 1000 / 1000 1300 / 2300 Balance 338.333 / 2188.333 240 / 2428.333 240 / 240 Weight last 48 hrs Weight 190 lb Physical Exam Extremity: OTHER: Hemovac drain was discontinued. Incision line is intact. Painted with Betadine and redressed with bordered gauze and then further secured with Harris bandage and tape. Only drainage noted was from the drain site after removal of Hemovac. Incision line is dry. Urinary Catheter Management^: Garber: Cath Placed During This Visit: yes Reason for Continuing Indwelling Catheter: Required Immobilization for Trauma or Surgery or Anesthesia Urinary Catheter Date of Insertion: 11/08/21 Urinary Catheter Time of Insertion: 17:00 Data : 11/10/21 05:15 11/09/21 02:16 Micro: Microbiology 11/08/21 07:45 Urine Culture - Preliminary Urine,Clean Catch 11/08/21 10:50 Blood Culture - Preliminary Blood NEGATIVE TO DATE 11/08/21 10:35 Blood Culture - Preliminary Blood A&P Assessment and plan (1) Status post above-knee amputation of right lower extremity: POD #2 status post right above-knee amputation. Plan: We will continue current parenteral antibiotics, awaiting ID from the 1+ blood culture. I would recommend repeating CBC tomorrow to further confirm no rmalization of her white blood cell count. Discharge planning can begin at the discretion of our hospitalist colleagues. It would be advantageous to continue oral antibiotics for at least 1 week after discharge if we can determine appropriate spectrum of coverage in relation to her cultures. I did have a lengthy conversation with her concerning prosthesis. I do not think she is a particular good candidate related to her comorbidities as well as wounds of her left lower extremity. This could be potentially readdressed later if her left lower extremity wounds could be healed and she was felt to have adequate balance and energy level. Status: Acute Attestations Medical Necessity Statement*: Status post right above, ulcerations with bone exposure. Time Spent in Patient Care: 16 - 35 minutes Coding Level of Care Code Acute Well Flow Operator for [facility] Diagnoses Status post above-knee amputation of right lower extremity Z89.611
--- NOTE | 2021-11-10 11:09 | P.PN_ITS ---
Subjective Subjective: Interval history: Patient was seen and examined this morning, pain has improved. Gabapentin and other home medications has been restarted. Blood sugar fairly well controlled, minimal Hemovac drain output. Medications: Reviewed: Yes Vitals/I&O/Wt Last Vital Signs Temp 97.6 F 11/10/21 11:06 Pulse 74 11/10/21 11:06 Resp 18 11/10/21 11:06 BP 144/76 11/10/21 11:06 Pulse Ox 98 11/10/21 11:06 11/09/21 11/10/21 11/10/21 22:59 06:59 14:59 Intake Total 1338.333 / 3188.333 1540 / 4728.333 240 / 240 Output Total 1000 / 1000 1300 / 2300 Balance 338.333 / 2188.333 240 / 2428.333 240 / 240 Physical Exam Const: COMMON NORMALS: patient oriented x3 HENMT: COMMON NORMALS: normocephalic and atraumatic HEAD & SCALP: normocephalic and atraumatic Chest: CHEST: Yes Symmetrical chest wall rise Resp: COMMON NORMALS: clear to auscultation bilaterally EFFORT & INSPECTION: Yes symmetric chest movement AUSCULTATION: clear to auscultation bilaterally Cardio: COMMON NORMALS: regular rate, regular rhythm, S1 normal heart sound present, S2 normal heart sound present, No gallops present (Cardio), No murmurs present (Cardio), No rub (Cardio) and Peripheral pulses 2+ throughout RATE: regular rate RHYTHM: regular rhythm HEART SOUNDS: S1 normal heart sound present and S2 normal heart sound present PERIPHERAL PULSES: Peripheral p ulses 2+ throughout GI: COMMON NORMALS: Normal to inspection, nondistended, normoactive bowel sounds present, Soft to palpation, non-tender, No hepatosplenomegaly present and no masses AUSCULTATION: Yes normoactive bowel sounds PALPATION: Yes Soft to palpation and Yes No hepatosplenomegaly present RECTAL EXAM: deferred Extremity: COMMON NORMALS: no clubbing, cyanosis or edema and no pedal edema NARRATIVE EXTREMITY EXAM: right AKA surgical dressing is in place, clean and dry. Hemovac drain is in position. Neuro: COMMON NORMALS: patient oriented x3 Urinary Catheter Management^: Garber: Cath Placed During This Visit: yes Reason for Continuing Indwelling Catheter: Required Immobilization for Trauma or Surgery or Anesthesia Urinary Catheter Date of Insertion: 11/08/21 Urinary Catheter Time of Insertion: 17:00 Data : 11/10/21 05:15 11/09/21 02:16 Micro: Microbiology 11/08/21 10:35 Blood Culture - Preliminary Blood Group g streptococcus 11/08/21 07:45 Urine Culture - Preliminary Urine,Clean Catch 11/08/21 10:50 Blood Culture - Preliminary Blood NEGATIVE TO DATE A&P Assessment and plan (1) Cellulitis: Status: Acute Qualifiers: Laterality: right Site of cellulitis: extremity Site of cellulitis of extremity: lower extremity Qualified Code(s): L03.115 - Cellulitis of right lower limb (2) Hypertension: Status: Chronic Qualifiers: Hypertension type: unspecified Qualified Code(s): I10 - Essential (primary) hypertension (3) Hyperlipidemia: Status: Chronic Qualifiers: Hyperlipidemia type: unspecified Qualified Code(s): E78.5 - Hyperlipidemia, unspecified (4) Anemia: Status: Acute (5) Venous stasis ulcer: Status: Acute Qualifiers: Laterality: right Non-pressure ulcer stage: unspecified non-pressure ulcer stage Varicose vein presence: unspecified whether present Venous stasis ulcer site: other part of lower leg Qualified Code(s): I83.018 - Varicose veins of right lower extremity with ulcer other part of lower leg; L97.819 - Non- pressure chronic ulcer of other part of right lower leg with unspecified severity (6) Diabetes mellitus, type II: Status: Acute Qualifiers: Diabetes mellitus complication detail: with other arthropathy Diabetes mellitus complication status: with diabetic arthropathy Diabetes mellitus computer terminal operator insulin use: without jail use Qualified Code(s): E11.618 - Type 2 diabetes mellitus with other diabetic arthropathy Additional A&P Information # Sepsis due to infected RLE ulcer/cellulitis S/p AKA Blood culture: Group g Streptococcus in 1 bottle. Pending identification. Continue IV vancomycin and zosyn Pain control Appreciate CT surgery managing the patient PT on Board # Diabetes Mellitus : On sliding scale insulin. Monitor fingerstick glucose. Carbohydrate consistent diet. #Hypertension : On amlodipine #Peripheral neuropathy : On gabapentin Attestations Medical Necessity Statement*: Patient needs to be in hospital for management of sepsis. Coding Level of Care Code Acute Supervisor Lump Room for [facility] Fwd Exam Detailed Diagnoses Cellulitis L03.115 Laterality: right Site of cellulitis: extremity Site of cellulitis of extremity: lower extremity Hypertension I10 Hypertension type: unspecified Hyperlipidemia E78.5 Hyperlipidemia type: unspecified Anemia D64.9 Venous stasis ulcer I83.018; L97.819 Laterality: right Non-pressure ulcer stage: unspecified non-pressure ulcer stage Varicose vein presence: unspecified whether present Venous stasis ulcer site: other part of lower leg Diabetes mellitus, type II E11.618 Diabetes mellitus complication detail: with other arthropathy Diabetes mellitus complication status: with diabetic arthropathy Diabetes mellitus computer terminal operator insulin use: without jail use
[2021-11-10 11:39] LABS: Glucose Point of Care 165 mg/dL (70-110)
--- NOTE | 2021-11-10 11:41 | PC.CHAP ---
Pastoral Care Encounter/Spiritual Assessment Type of Contact [] Declined applications instructor visit [] Patient/Family/Request visit [] Outpatient visit [] Follow-up visit [] Physician referral [] Code/Alert [] Routine visit [] Staff referral [] Actively dying [] Patient sleeping [] Family support [] [] Out of room [] Palliative care [] [] Receiving care in room [] Pre-surgical visit [] Trauma [] Long length of stay [] ICU visit [xx] Other:Isolation Relational/Emotional Strength [] Patient feels connected with others/family/visitors/staff [] Distress [] Loneliness/isolation [] Abandonment Spirituality of Patient [] Person of Amee [] Attends [employer] of their Amee [] Believes in Prayer [] Reads Bible or Religion materials [] There are Spiritual issues to be addressed Safety And Occupational Health Manager Interventions [] Prayer [] Active listening [] Non-anxious presence [] Spiritual/emotional support [] Crisis/trauma care [] Spiritual counseling [] Bereavement support [] Provided bereavement packet [] Provided Bible/devotional materials [] Provided toy/stuffed animal, coloring book to patient or family member [] Provided Communion [] Anointing/[place] [] Salvation [] Completed spiritual assessment [] Other: Impact on Illness or Injury [] Angry [] Fearful [] Anxious [] Often cries [] Exhaustion [] Unable to work [] Unable to attend holiness [] Unable to walk/stand [] Unable to read [] Unable to drive [] Unable to eat/drink [] Unable to sleep [] Unable to be with family [] Patient intubated [] Other: Summary Time spent with patient
[2021-11-10 17:35] LABS: Glucose Point of Care 146 mg/dL (70-110)
[2021-11-10] MEDS: gabapentin 400 mg Capsule 1200 MG PO ×2 (17:40→21:37)
--- NOTE | 2021-11-10 19:08 | PC.NURSE ---
Report to Edvin CHAN at this time.
[2021-11-10] MEDS: ondansetron 2 mg/ML SDV 2 mL 4 MG IVP (20:05)
[2021-11-10] MEDS: BuSPIRONE 10 mg Tablet 5 MG PO (21:37)
[2021-11-10] MEDS: insulin lispro 100 unit/1 mL SUBCUT (21:38)
[2021-11-11] VITALS (11 sets, daily range): BP systolic 136–151; BP diastolic 66–84; PULSE 67–100; RESP 16–18; TEMP 36.4–37.1; O2SAT 90–95
[2021-11-11] MEDS: oxyCODONE-APAP 10-325 mg Tablet 1 TAB PO ×4 (00:13→15:28)
[2021-11-11] MEDS: vancomycin 1,250 MG/250 ML PIGGYBACK 250 MG IV ×2 (00:41→08:50)
[2021-11-11] MEDS: lactated ringers 1,000 ML 100 ML IV (02:58)
[2021-11-11 05:24] LABS: Basophils # 0.1 10^3/uL (0.0-0.1); Basophils % 0.5 %; Eosinophils # 0.3 10^3/uL (0.0-0.8); Eosinophils % 2.5 %; Hematocrit 27.9 % (37.0-47.0); Hemoglobin 8.6 g/dL (11.5-15.3); Lymphocytes # 1.4 10^3/uL (0.8-4.8); Lymphocytes % 12.9 %; Mean Corpuscular HGB Conc 30.8 g/dL (30.0-36.0); Mean Corpuscular Hemoglobin 29.5 pg (28.0-34.0); Mean Corpuscular Volume 95.5 fl (81-99); Monocytes # 1.3 10^3/uL (0.2-0.9); Monocytes % 11.7 %; Neutrophils # 7.65 10^3/uL (1.8-7.7); Neutrophils % 70.6 %; Nucleated Red Blood Cells % 0 %; Platelet Count 265 10^3/cmm (130-400); Red Blood Count 2.92 10^6/uL (4.1-5.3); Red Cell Distribution Width 15.8 % (12.1-15.1); White Blood Count 10.8 10^3/uL (4.0-10.0)
[2021-11-11 05:48] LABS: Anion Gap 15.3 (5-19); Blood Urea Nitrogen 7 mg/dL (8-23); Carbon Dioxide 27 mmol/L (22-29); Chloride 104 mmol/L (98-107); Glomerular Filtration Rate 361.1 mL/min (90-130); Glucose 84 mg/dL (65-115); Osmolality Calculated 291 mOsm/kg (285-295); Potassium 4.3 mmol/L (3.5-5.1); Sodium 142 mmol/L (136-145)
[2021-11-11] MEDS: piperacillin-tazobactam 3.375 GM in sodium chloride 0.9% (plus) 50 ML IV (06:23)
[2021-11-11] MEDS: amlodipine 10 mg Tablet PO (06:23)
[2021-11-11 08:11] LABS: Glucose Point of Care 185 mg/dL (70-110)
[2021-11-11 08:11] LABS: Glucose Point of Care 105 mg/dL (70-110)
[2021-11-11 08:31] LABS: Vancomycin Trough 15.6 ug/mL (10-15)
[2021-11-11] MEDS: gabapentin 400 mg Capsule 1200 MG PO ×2 (08:49→15:16)
[2021-11-11] MEDS: pantoprazole DR 40 mg Tablet PO (08:50)
[2021-11-11] MEDS: BuSPIRONE 10 mg Tablet 5 MG PO ×2 (08:50→15:16)
[2021-11-11] MEDS: duloxetine 20 mg Capsule 40 MG PO (08:50)
[2021-11-11] MEDS: TRAMadol 50 mg Tablet 100 MG PO (08:58)
[2021-11-11] MEDS: docusate sodium 100 mg Capsule PO (08:59)
[2021-11-11] MEDS: ketorolac 30 mg/mL INJ IVP (08:59)
--- NOTE | 2021-11-11 10:47 | P.DS_ITS ---
Discharge Providers Date of Admission: 11/08/21 22:00 Date of Discharge: November 11, 2021 Attending Provider at Admission: Casey Champagne MD Attending Provider at Discharge: Michel Pelletier MD Primary Care Provider: Debbie Dietz DO Diagnoses at Discharge Discharge Diagnosis (1) Cellulitis: Status: Acute Qualifiers: Laterality: right Site of cellulitis: extremity Site of cellulitis of extremity: lower extremity Qualified Code(s): L03.115 - Cellulitis of right lower limb (2) Hypertension: Status: Chronic Qualifiers: Hypertension type: unspecified Qualified Code(s): I10 - Essential (primary) hypertension (3) Hyperlipidemia: Status: Chronic Qualifiers: Hyperlipidemia type: unspecified Qualified Code(s): E78.5 - H yperlipidemia, unspecified (4) Anemia: Status: Acute (5) Venous stasis ulcer: Status: Acute Qualifiers: Laterality: right Non-pressure ulcer stage: unspecified non-pressure ulcer stage Varicose vein presence: unspecified whether present Venous stasis ulcer site: other part of lower leg Qualified Code(s): I83.018 - Varicose veins of right lower extremity with ulcer other part of lower leg; L97.819 - Non- pressure chronic ulcer of other part of right lower leg with unspecified severity (6) Diabetes mellitus, type II: Status: Acute Qualifiers: Diabetes mellitus complication detail: with other arthropathy Diabetes mellitus complication status: with diabetic arthropathy Diabetes mellitus custodial insulin use: without custodial use Qualified Code(s): E11.618 - Type 2 diabetes mellitus with other diabetic arthropathy Reason for Visit Reason for Visit: ABDOMINAL PAIN/ FEVER Hospital Course Hospital Course 61-year-old with past medical history of hypertension, hyperlipidemia, reported lung cancer, COVID-19 infection on 08/2021, diabetes mellitus with chronic lower extremity ulcer/infection on chronic clindamycin 300mg PO BID who presented to ER with fever. This was associated with generalized weakness, nausea and vomiting. Upon arrival to ER patient was noted to have worsening right lower extremity infection.She was admitted for the management of Sepsis 2/2 RLE ulce r/cellulitis S/p AKA she was kept on broad spectrum abxs, blood culture grew Group g Streptococcus in 1 bottle. sensitive to levofloxacin, she was on po levofloxacin for additional 10 days and she will follow in wound care clinic in 1 week.She responded well to above medical management and was discharged in stable condition to home. Physical Exam Const: COMMON NORMALS: patient oriented x3 HENMT: COMMON NORMALS: normocephalic and atraumatic HEAD & SCALP: normocephalic and atraumatic Chest: CHEST: Yes Symmetrical chest wall rise Resp: COMMON NORMALS: clear to auscultation bilaterally EFFORT & INSPECTION: Yes symmetric chest movement AUSCULTATION: clear to auscultation bilaterally Cardio: COMMON NORMALS: regular rate, regular rhythm, S1 normal heart sound present, S2 normal heart sound present, No gallops present (Cardio), No murmurs present (Cardio), No rub (Cardio) and Peripheral pulses 2+ throughout RATE: r egular rate RHYTHM: regular rhythm HEART SOUNDS: S1 normal heart sound present and S2 normal heart sound present PERIPHERAL PULSES: Peripheral pulses 2+ throughout GI: COMMON NORMALS: Normal to inspection, nondistended, normoactive bowel sounds present, Soft to palpation, non-tender, No hepatosplenomegaly present and no masses AUSCULTATION: Yes normoactive bowel sounds PALPATION: Yes Soft to palpation and Yes No hepatosplenomegaly present RECTAL EXAM: deferred Extremity: COMMON NORMALS: no clubbing, cyanosis or edema and no pedal edema NARRATIVE EXTREMITY EXAM: right AKA surgical dressing is in place, clean and dry. Neuro: COMMON NORMALS: patient oriented x3 Urinary Catheter Management^: Garber: Cath Placed During This Visit: yes Reason for Continuing Indwelling Catheter: Assist Healing of Perineal & Sacral Wounds- Incontinent Patients Urinary Catheter Date of Insertion: 11/08/21 Urinary Catheter Time of Insertion: 17:00 Discharge Data Data Completed and Pending: Completed Studies During Hospitalization Category Date Time Status XR chest 1V leslie ble 14071 Stat Exams 11/08/21 10:36 Completed XR foot LT min 3V * [id number] Stat Exams 11/08/21 12:03 Completed XR foot RT min 3V * [id number] Stat Exams 11/08/21 12:03 Completed XR tibia fibula L T 2V [id number] Stat Exams 11/08/21 11:02 Completed XR tibia fibula R T 2V [id number] Stat Exams 11/08/21 11:02 [place] [id number] Stat Ultrasound 11/08/21 15:25 Completed Pending at discharge Category Date Time Status Blood Culture Sta t Lab 11/08/21 10:50 Results PC [Leukocyte Red uced RBC] Stat Lab 11/08/21 16:35 Results Type and Screen S tat Lab 11/08/21 16:35 Results Pathology: Surgic al [PTH] Routine Pth 11/08/21 20:36 Received Labs from last 24 hours 11/11/21 11/11/21 11/11/21 07:52 06:49 04:49 WBC RBC Hgb Hct MCV MCH MCHC RDW Plt Count MPV Neut % (Auto) Lymph % (Auto) [place] % (Auto) Eos % (Auto) Baso % (Auto) Neut # (Auto) Lymph # (Auto) [place] # (Auto) Eos # (Auto) Baso # (Auto) Nucleated RBC % (a uto) Nucleated RBCs # Sodium 142 Potassium 4.3 Chloride 104 Carbon Dioxide 27 Anion Gap 15.3 BUN 7 L Creatinine 0.2 L GFR Calculation 361.1 H Glucose 84 POC Glucose 105 Calculated Osmolal ity 291 Calcium 8.0 L Vancomycin Trough 15.6 H 11/11/21 11/10/21 11/10/21 04:49 20:56 17:29 WBC 10.8 H RBC 2.92 L Hgb 8.6 L Hct 27.9 L MCV 95.5 MCH 29.5 MCHC 30.8 RDW 15.8 H Plt Count 265 MPV 10.0 Neut % (Auto) 70.6 Lymph % (Auto) 12.9 [place] % (Auto) 11.7 Eos % (Auto) 2.5 Baso % (Auto) 0.5 Neut # (Auto) 7.65 Lymph # (Auto) 1.4 [place] # (Auto) 1.3 H Eos # (Auto) 0.3 Baso # (Auto) 0.1 Nucleated RBC % (a uto) 0 Nucleated RBCs # 0.0 Sodium Potassium Chloride Carbon Dioxide Anion Gap BUN Creatinine GFR Calculation Glucose POC Glucose 185 H 146 H Calculated Osmolal ity Calcium Vancomycin Trough 11/10/21 11:09 WBC RBC Hgb Hct MCV MCH MCHC RDW Plt Count MPV Neut % (Auto) Lymph % (Auto) [place] % (Auto) Eos % (Auto) Baso % (Auto) Neut # (Auto) Lymph # (Auto) [place] # (Auto) Eos # (Auto) Baso # (Auto) Nucleated RBC % (a uto) Nucleated RBCs # Sodium Potassium Chloride Carbon Dioxide Anion Gap BUN Creatinine GFR Calculation Glucose POC Glucose 165 H Calculated Osmolal ity Calcium Vancomycin Trough Vitals: Last Vital Signs Temp 98.0 F 11/11/21 07:47 Pulse 100 11/11/21 07:47 Resp 18 11/11/21 07:47 BP 149/80 11/11/21 07:47 Pulse Ox 90 11/11/21 07:47 Discharge Plan Discharge Patient Disposition: Home Condition: Stable Prescriptions: New levofloxacin 750 mg tablet 750 mg PO DAILY 10 Days Qty: 10 RF: 0 Percocet 5-325 mg tablet 1 tab PO Q4H PRN (Reason: pain) Qty: 30 RF: 0 tramadol 100 mg tablet extended release 24 hr 100 mg PO Q4H 3 Days Qty: 18 RF: 0 Diflucan 200 mg tablet 200 mg PO DAILY Qty: 7 RF: 0 Continued potassium chloride 20 mEq tablet extended release 20 meq PO QAM PRN (Reason: rx filled 07/26/21 90d/s-pts states takes pr) RF: 0 aspirin 325 mg tablet 325 mg PO DAILY RF: 0 hydroxyzine HCl 25 mg tablet 25 mg PO BID PRN (Reason: itching) Qty: 10 RF: 0 baclofen 20 mg tablet 20 mg PO BID RF: 0 ondansetron 4 mg tablet,disintegrating 4 mg PO Q6H PRN (Reason: nausea and vomiting) Qty: 12 RF: 0 Hold Instructions: Home Medication placed on hold at Doctor's office buspirone 5 mg Tablet 5 mg PO TID RF: 0 prochlorperazine maleate [Compazine] 10 mg Tablet 10 mg PO DAILY PRN (Reason: Nausea) RF: 0 Hold Instructions: Home Medication placed on hold at Doctor's office fenofibrate micronized 200 mg capsule 200 mg PO BEDTIME RF: 0 amlodipine 10 mg tablet 10 mg PO QAM RF: 0 pantoprazole [Protonix] 40 mg Tablet,Delayed Release (Dr/Ec) 40 mg PO BID RF: 0 metformin 500 mg tablet 500 mg PO BID RF: 0 atenolol 100 mg tablet 100 mg PO BID RF: 0 gabapentin 400 mg capsule 1,200 mg PO TID RF: 0 furosemide 40 mg tablet 40 mg PO QAM RF: 0 lidocaine-prilocaine 2.5-2.5 % cream 1 applic topical . DIRECTED RF: 0 mupirocin 2 % ointment 1 applic TOPICAL . DIRECTED RF: 0 ergocalciferol (vitamin D2) 1,250 mcg (50,000 unit) Capsule See Rx Instructions .ROUTE .COMPLEX RF: 0 albuterol sulfate 90 mcg/actuation HFA aerosol inhaler 2 puff INHALATION Q4H PRN (Reason: Shortness Of Breath) RF: 0 fluticasone propionate 50 mcg/actuation spray,suspension 2 spray INTRANASAL DAILY PRN (Reason: Allergy Symptoms) RF: 0 duloxetine 20 mg capsule,delayed release(DR/EC) 40 mg PO DAILY RF: 0 Atrovent HFA 17 mcg/actuation HFA aerosol inhaler 2 puff INHALATION Q6H RF: 0 Vitamin D3 125 mcg (5,000 unit) Tablet 125 mcg PO DAILY RF: 0 Probiotic 1 cap PO DAILY RF: 0 calcium 1 cap PO DAILY RF: 0 escitalopram oxalate 10 mg tablet 10 mg PO DAILY RF: 0 Discontinued clindamycin HCl 300 mg capsule 300 mg PO BID RF: 0 Discharge Orders: Discharge Order (Routine); Ordered 11/11/21 Ordered By: Michel Pelletier Referrals: Casey Champagne MD [Physician] - 2 weeks (Please call Saturday morning to schedule a follow-up appointment. ) Discharge Diet: Diabetic Discharge Activity: Limit activity as instructed Patient Instructions: Oxycodone/Acetaminophen (By mouth), Tramadol (By mouth), Levofloxacin (By mouth), Above the Knee Amputation (GEN), Opioid Safety Activity Restrictions/Additional Instructions: Wet-to-dry dressing with saline to left leg wound daily Right aka dressing, paint incision with betadine, cover with island dressing, wrap with usman wrap. Discharge Attestations Time Spent in Discharge Care*: less than 30 min Specific Discharge Activities: educating patient, educating and/or supporting family/caregiver, discussing with pcp/other providers, discussing with patient case manager/social workers/dc planners, documenting/other paperwork and evaluating patient/reviewing data Status at Discharge: Cognitive status at discharge: cognitively intact , Behavioral status at discharge: cooperative , Quality Metrics Clinical Quality Measures During this hospital stay, did patient experience: None Coding Level of Care Code Acute Chg FW DC note Exam Detailed Diagnoses Cellulitis L03.115 Laterality: right Site of cellulitis: extremity Site of cellulitis of extremity: lower extremity Hypertension I10 Hypertension type: unspecified Hyperlipidemia E78.5 Hyperlipidemia type: unspecified Anemia D64.9 Venous stasis ulcer I83.018; L97.819 Laterality: right Non-pressure ulcer stage: unspecified non-pressure ulcer stage Varicose vein presence: unspecified whether present Venous stasis ulcer site: other part of lower leg Diabetes mellitus, type II E11.618 Diabetes mellitus complication detail: with other arthropathy Diabetes mellitus complication status: with diabetic arthropathy 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
[2021-11-11 11:19] LABS: Glucose Point of Care 262 mg/dL (70-110)
[2021-11-11] MEDS: levoFLOXacin 750 mg Tablet PO (11:27)
[2021-11-11] MEDS: insulin lispro 100 unit/1 mL SUBCUT (11:27)
--- NOTE | 2021-11-11 11:27 | P.PN_ITS ---
Subjective Subjective: Interval history: POD #3 status post right above-knee amputation. White blood cell count is down to 10.8. Remains afebrile. Postop discomfort under good control with oral narcotic. Blood culture bottle grew group G Streptococcus. She is eager for discharge home. Home health arrangements have been arranged by Dr. Pelletier. Vitals/I&O/Wt Last Vital Signs Temp 98.0 F 11/11/21 07:47 Pulse 100 11/11/21 07:47 Resp 16 11/11/21 11:12 BP 149/80 11/11/21 07:47 Pulse Ox 90 11/11/21 07:47 11/10/21 11/11/21 11/11/21 22:59 06:59 14:59 Intake Total 660 / 2440 1300 / 3740 250 / 250 Output Total 1000 / 1000 1750 / 2750 1300 / 1300 Balance -340 / 1440 -450 / 990 -1050 / -1050 Physical Exam Extremity: OTHER: Wet to dry dressing changes continue to the left lower extremity. Postoperative dressing to right AKA is clean and dry. Urinary Catheter Management^: Garber: Cath Placed During This Visit: yes Reason for Continuing Indwelling Catheter: Assist Healing of Perineal & Sacral Wounds- Incontinent Patients Urinary Catheter Date of Insertion: 11/08/21 Urinary Catheter Time of Insertion: 17:00 Data : 11/11/21 04:49 11/11/21 04:49 Micro: Microbiology 11/08/21 07:45 Urine Culture - Final Urine,Clean Catch 11/08/21 10:35 Blood Culture - Preliminary Blood Group g streptococcus A&P Assessment and plan (1) Status post above-knee amputation of right lower extremity: POD #3 status post right AKA Plan: Dr. Pelletier has made arrangements for discharge to home with home health services. Levaquin will be continued secondary to the Streptococcus recovered from the blood culture. She will be scheduled to follow-up in wound care services next week. I have instructed her to contact wound care clinic on Saturday to confirm appointment date and time. I greatly appreciate the expertise and oversight of Dr. Pelletier with her postoperative care. Status: Acute Attestations Medical Necessity Statement*: Status post right above-knee amputation secondary to progressive cellulitis and nonhealing wounds Time Spent in Patient Care: less than 15 minutes Coding Level of Care Code Acute Sawdust Machine Operator for Chg Fwd Diagnoses Status post above-knee amputation of right lower extremity Z89.613
--- NOTE | 2021-11-11 12:24 | PC.NURSE ---
dressings changed to right stump and left lower leg per Dr. Castillo's orders prior to discharge, teaching completed to patient and sent with dressing change supplies.
--- NOTE | 2021-11-11 12:32 | PC.SOCIAL ---
IMM update IMM updated with patient. Verbalized an understanding. Copy Pg 2 provided. Initialled, dated, timed, and placed in chart.
--- NOTE | 2021-11-11 17:03 | PC.NURSE ---
Patient discharged home via wheelchair to private car, sent home with supplies for dressing changes, belongings, and discharge instructions, denies further questions or concerns, patient states, I want to go home. I do not want to stay. I will be fine with my he can get me out of this car and into my wheelchair.
== END 2021-11-11 17:00 | disposition home health service (06) | DRG 854 ==
LOC: ER 16:03 → OR 16:05 → MEDSURG 22:19
PROVIDERS: Admitting Provider Thoracic Surgery (Cardiothoracic Vascular Surgery); Emergency Provider Family Medicine; PCP Family Medicine; Visit Provider Internal Medicine
PROC: 0Y6C0Z2 Detachment at Right Upper Leg, Mid, Open Approach (ICD-10-PCS; CPT 27590; principal; 2021-11-08 17:00)
DX: A41.9 Sepsis, unspecified organism (principal); L03.115 Cellulitis of right lower limb; I50.32 Chronic diastolic (congestive) heart failure; F11.20 Opioid dependence, uncomplicated; L97.816 Non-pressure chronic ulcer of other part of right lower leg with bone involvement without evidence of necrosis; J96.12 Chronic respiratory failure with hypercapnia; L03.116 Cellulitis of left lower limb; E11.622 Type 2 diabetes mellitus with other skin ulcer; I83.018 Varicose veins of right lower extremity with ulcer other part of lower leg; E11.618 Type 2 diabetes mellitus with other diabetic arthropathy; B95.4 Other streptococcus as the cause of diseases classified elsewhere; E11.621 Type 2 diabetes mellitus with foot ulcer; L97.519 Non-pressure chronic ulcer of other part of right foot with unspecified severity; L97.529 Non-pressure chronic ulcer of other part of left foot with unspecified severity; D64.9 Anemia, unspecified; F41.8 Other specified anxiety disorders; E11.40 Type 2 diabetes mellitus with diabetic neuropathy, unspecified; E11.610 Type 2 diabetes mellitus with diabetic neuropathic arthropathy; E78.5 Hyperlipidemia, unspecified; I11.0 Hypertensive heart disease with heart failure; F17.200 Nicotine dependence, unspecified, uncomplicated; F15.90 Other stimulant use, unspecified, uncomplicated; M96.1 Postlaminectomy syndrome, not elsewhere classified; K21.9 Gastro-esophageal reflux disease without esophagitis; Z86.718 Personal history of other venous thrombosis and embolism; Z96.653 Presence of artificial knee joint, bilateral; Z86.16 Personal history of COVID-19; Z79.84 Long term (current) use of oral hypoglycemic drugs; Z79.82 Long term (current) use of aspirin; Z85.118 Personal history of other malignant neoplasm of bronchus and lung
CPT/HCPCS: 36415; 36416; 51702; 71045; 73590; 73630; 80048; 80053; 80202; 81001; 82550; 82962; 83605; 83735; 85025; 86140; 86850; 86900; 86920; 87040; 87077; 87086; 87186; 87205; 87635; 88307; 88311; 93005; 93926; 96365; 96372; 96375; 97161; 97165; 97530; 99285; J0690; J1170; J1815; J1885; J2270; J2370; J2405; J2543; J2704; J3010; J3370; J3490; J7050

== ENCOUNTER 2021-11-27 10:02 | Outpatient (CLI) | payer MEDICARE, MEDICAID, SELFPAY | END 2021-11-27 10:03 | disposition home or self-care (01) | LOC: WOUND 10:05 | PROVIDERS: PCP Family Medicine; Visit Provider Thoracic Surgery (Cardiothoracic Vascular Surgery) | DX: I96 Gangrene, not elsewhere classified (principal); E11.622 Type 2 diabetes mellitus with other skin ulcer; L97.822 Non-pressure chronic ulcer of other part of left lower leg with fat layer exposed; E11.621 Type 2 diabetes mellitus with foot ulcer; L97.421 Non-pressure chronic ulcer of left heel and midfoot limited to breakdown of skin | CPT/HCPCS: 11042; 97597 ==

== ENCOUNTER 2021-11-29 15:57 | Outpatient (CLI) | payer MEDICARE, MEDICAID, SELFPAY | END 2021-11-29 15:58 | disposition home or self-care (01) | LOC: WOUND 15:59 | PROVIDERS: PCP Family Medicine; Visit Provider Thoracic Surgery (Cardiothoracic Vascular Surgery) | DX: I96 Gangrene, not elsewhere classified (principal); E11.622 Type 2 diabetes mellitus with other skin ulcer; L97.821 Non-pressure chronic ulcer of other part of left lower leg limited to breakdown of skin; E11.621 Type 2 diabetes mellitus with foot ulcer; L97.421 Non-pressure chronic ulcer of left heel and midfoot limited to breakdown of skin; F17.210 Nicotine dependence, cigarettes, uncomplicated | CPT/HCPCS: 97597; A6253 ==

== ENCOUNTER 2021-12-04 10:16 | Outpatient (CLI) | payer MEDICARE, MEDICAID, SELFPAY | END 2021-12-04 10:17 | disposition home or self-care (01) | LOC: WOUND 10:16 | PROVIDERS: PCP Family Medicine; Visit Provider Nurse Practitioner Family | DX: I96 Gangrene, not elsewhere classified (principal); E11.621 Type 2 diabetes mellitus with foot ulcer; L97.522 Non-pressure chronic ulcer of other part of left foot with fat layer exposed; L97.422 Non-pressure chronic ulcer of left heel and midfoot with fat layer exposed; E11.622 Type 2 diabetes mellitus with other skin ulcer; L97.822 Non-pressure chronic ulcer of other part of left lower leg with fat layer exposed; F17.210 Nicotine dependence, cigarettes, uncomplicated | CPT/HCPCS: 11042 ==

== ENCOUNTER 2021-12-11 09:03 | Outpatient (CLI) | payer MEDICARE, MEDICAID, SELFPAY | END 2021-12-11 09:04 | disposition home or self-care (01) | LOC: WOUND 09:04 | PROVIDERS: PCP Family Medicine; Visit Provider Thoracic Surgery (Cardiothoracic Vascular Surgery) | DX: E11.622 Type 2 diabetes mellitus with other skin ulcer (principal); L97.821 Non-pressure chronic ulcer of other part of left lower leg limited to breakdown of skin; E11.621 Type 2 diabetes mellitus with foot ulcer; L97.421 Non-pressure chronic ulcer of left heel and midfoot limited to breakdown of skin; L97.511 Non-pressure chronic ulcer of other part of right foot limited to breakdown of skin; F17.210 Nicotine dependence, cigarettes, uncomplicated | CPT/HCPCS: 97597; A6252 ==

== ENCOUNTER 2021-12-25 09:57 | Outpatient (CLI) | payer MEDICARE, MEDICAID, SELFPAY | END 2021-12-25 09:58 | disposition home or self-care (01) | LOC: WOUND 09:58 | PROVIDERS: PCP Family Medicine; Visit Provider Thoracic Surgery (Cardiothoracic Vascular Surgery) | DX: E11.622 Type 2 diabetes mellitus with other skin ulcer (principal); L97.821 Non-pressure chronic ulcer of other part of left lower leg limited to breakdown of skin; E11.621 Type 2 diabetes mellitus with foot ulcer; L97.429 Non-pressure chronic ulcer of left heel and midfoot with unspecified severity; L97.529 Non-pressure chronic ulcer of other part of left foot with unspecified severity; F17.210 Nicotine dependence, cigarettes, uncomplicated | CPT/HCPCS: 97597 ==

== ENCOUNTER 2022-01-08 09:37 | Outpatient (CLI) | payer MEDICARE, MEDICAID, SELFPAY | END 2022-01-08 09:38 | disposition home or self-care (01) | LOC: WOUND 09:38 | PROVIDERS: PCP Family Medicine; Visit Provider Thoracic Surgery (Cardiothoracic Vascular Surgery) | DX: E11.621 Type 2 diabetes mellitus with foot ulcer (principal); L97.521 Non-pressure chronic ulcer of other part of left foot limited to breakdown of skin; E11.622 Type 2 diabetes mellitus with other skin ulcer; L97.822 Non-pressure chronic ulcer of other part of left lower leg with fat layer exposed; F17.210 Nicotine dependence, cigarettes, uncomplicated | CPT/HCPCS: 97597; A6219 ==

== ENCOUNTER 2022-01-15 09:45 | Outpatient (CLI) | payer MEDICARE, MEDICAID, SELFPAY | END 2022-01-15 09:46 | disposition home or self-care (01) | LOC: WOUND 09:46 | PROVIDERS: PCP Family Medicine; Visit Provider Thoracic Surgery (Cardiothoracic Vascular Surgery) | DX: E11.621 Type 2 diabetes mellitus with foot ulcer (principal); E11.622 Type 2 diabetes mellitus with other skin ulcer; L97.822 Non-pressure chronic ulcer of other part of left lower leg with fat layer exposed; L97.521 Non-pressure chronic ulcer of other part of left foot limited to breakdown of skin; F17.210 Nicotine dependence, cigarettes, uncomplicated | CPT/HCPCS: 97597 ==

== ENCOUNTER 2022-01-22 13:23 | Outpatient (CLI) | payer MEDICARE, MEDICAID, SELFPAY | END 2022-01-22 13:24 | disposition home or self-care (01) | PROVIDERS: PCP Family Medicine; Visit Provider Thoracic Surgery (Cardiothoracic Vascular Surgery) | DX: E11.621 Type 2 diabetes mellitus with foot ulcer (principal); I96 Gangrene, not elsewhere classified; E11.622 Type 2 diabetes mellitus with other skin ulcer; L97.421 Non-pressure chronic ulcer of left heel and midfoot limited to breakdown of skin; L97.822 Non-pressure chronic ulcer of other part of left lower leg with fat layer exposed; L97.521 Non-pressure chronic ulcer of other part of left foot limited to breakdown of skin | CPT/HCPCS: 11042; 97597; A6252 ==

== ENCOUNTER 2022-01-29 10:29 | Outpatient (CLI) | payer MEDICARE, MEDICAID, SELFPAY | END 2022-01-29 10:30 | disposition home or self-care (01) | LOC: WOUND 10:33 | PROVIDERS: PCP Family Medicine; Visit Provider Thoracic Surgery (Cardiothoracic Vascular Surgery) | DX: E11.621 Type 2 diabetes mellitus with foot ulcer (principal); L97.421 Non-pressure chronic ulcer of left heel and midfoot limited to breakdown of skin; E11.622 Type 2 diabetes mellitus with other skin ulcer; L97.822 Non-pressure chronic ulcer of other part of left lower leg with fat layer exposed; L97.521 Non-pressure chronic ulcer of other part of left foot limited to breakdown of skin; F17.210 Nicotine dependence, cigarettes, uncomplicated | CPT/HCPCS: 97597 ==

== ENCOUNTER → 2022-02-07 08:29 | Outpatient (BNVA) | payer MEDICARE, MEDICAID, SELFPAY | PROVIDERS: PCP Family Medicine; Visit Provider Thoracic Surgery (Cardiothoracic Vascular Surgery) | DX: E11.621 Type 2 diabetes mellitus with foot ulcer (principal); I96 Gangrene, not elsewhere classified; L97.421 Non-pressure chronic ulcer of left heel and midfoot limited to breakdown of skin; E11.622 Type 2 diabetes mellitus with other skin ulcer; L97.822 Non-pressure chronic ulcer of other part of left lower leg with fat layer exposed; L97.521 Non-pressure chronic ulcer of other part of left foot limited to breakdown of skin; F17.210 Nicotine dependence, cigarettes, uncomplicated | CPT/HCPCS: 11042; 97597; A6252 ==

== ENCOUNTER 2022-02-09 08:27 | Outpatient (CLI) | payer MEDICARE, MEDICAID, SELFPAY ==
[2022-02-09 09:14] LABS: Estmated Average Glucose 137; Hemoglobin A1C 6.4 % (4.0-6.0)
[2022-02-09 09:19] LABS: Basophils # 0.1 10^3/uL (0.0-0.1); Basophils % 0.6 %; Eosinophils # 0.3 10^3/uL (0.0-0.8); Eosinophils % 3.1 %; Hematocrit 41.4 % (37.0-47.0); Hemoglobin 13.3 g/dL (11.5-15.3); Lymphocytes # 1.8 10^3/uL (0.8-4.8); Lymphocytes % 18.1 %; Mean Corpuscular HGB Conc 32.1 g/dL (30.0-36.0); Mean Corpuscular Hemoglobin 29.6 pg (28.0-34.0); Mean Corpuscular Volume 92.2 fl (81-99); Mean Platelet Volume 9.9 fL (7.4-10.4); Monocytes # 0.8 10^3/uL (0.2-0.9); Monocytes % 8.1 %; Neutrophils % 69.7 %; Nucleated Red Blood Cells % 0 %; Platelet Count 391 10^3/cmm (130-400); Red Blood Count 4.49 10^6/uL (4.1-5.3); Red Cell Distribution Width 14.9 % (12.1-15.1)
[2022-02-09 09:30] LABS: Alanine Aminotransferase 12 U/L (0-33); Alkaline Phosphatase 125 IU/L (35-105); Anion Gap 14.7 (5-19); Aspartate Amino Transferase 16 U/L (0-32); Blood Urea Nitrogen 11 mg/dL (8-23); Calcium 9.6 mg/dL (8.5-10.5); Carbon Dioxide 28 mmol/L (22-29); Chloride 99 mmol/L (98-107); Chol HDL Ratio 4.71 mg/dL (0.0-4.40); Cholesterol 198 mg/dL (0-200); Globulin 3.8 g/dL (1.3-4.6); Glomerular Filtration Rate 361.1 mL/min (90-130); Glucose 114 mg/dL (65-115); HDL Cholesterol 42 mg/dL (60-100); LDL Cholesterol Calculated 120 mg/dL (50-129); LDL HDL Ratio 2.86 RATIO (0.00-3.22); Osmolality Calculated 286 mOsm/kg (285-295); Potassium 3.7 mmol/L (3.5-5.1); Sodium 138 mmol/L (136-145); Thyroid Stimulating Hormone 1.14 uIU/mL (0.27-4.20); Total Bilirubin 0.2 mg/dL (0.15-1.2); Total Protein 7.8 g/dL (6.6-8.7); Triglycerides 179 mg/dL (0-150)
[2022-02-09 11:36] LABS: Amphetamines Screen Urine Negative (Negative); Barbiturates Screen Urine Negative (Negative); Benzodiazepines Screen Urine Negative (Negative); Cocaine Screen Urine Negative (Negative); Opiate Screen Urine Negative (Negative); PCP Screen Urine Negative (Negative); THC Screen Urine Negative (Negative)
== END 2022-02-09 08:28 | disposition home or self-care (01) ==
LOC: LAB 08:30
PROVIDERS: PCP Family Medicine; Visit Provider Family Medicine
DX: E11.610 Type 2 diabetes mellitus with diabetic neuropathic arthropathy (principal); F32.9 Major depressive disorder, single episode, unspecified; G89.29 Other chronic pain; M54.16 Radiculopathy, lumbar region; Z99.3 Dependence on wheelchair; Z91.19 Patient's noncompliance with other medical treatment and regimen
CPT/HCPCS: 36415; 80053; 80061; 80306; 83036; 84443; 85025

== ENCOUNTER → 2022-02-14 09:41 | Outpatient (BNVA) | payer MEDICARE, MEDICAID, SELFPAY | PROVIDERS: PCP Family Medicine; Visit Provider Thoracic Surgery (Cardiothoracic Vascular Surgery) | DX: E11.621 Type 2 diabetes mellitus with foot ulcer (principal); I96 Gangrene, not elsewhere classified; L97.421 Non-pressure chronic ulcer of left heel and midfoot limited to breakdown of skin; E11.622 Type 2 diabetes mellitus with other skin ulcer; L97.521 Non-pressure chronic ulcer of other part of left foot limited to breakdown of skin; L97.822 Non-pressure chronic ulcer of other part of left lower leg with fat layer exposed; F17.210 Nicotine dependence, cigarettes, uncomplicated | CPT/HCPCS: 97597 ==

== ENCOUNTER → 2022-02-26 09:20 | Outpatient (BNVA) | payer MEDICARE, MEDICAID, SELFPAY | PROVIDERS: PCP Family Medicine; Visit Provider Thoracic Surgery (Cardiothoracic Vascular Surgery) | DX: I96 Gangrene, not elsewhere classified (principal); E11.621 Type 2 diabetes mellitus with foot ulcer; L97.421 Non-pressure chronic ulcer of left heel and midfoot limited to breakdown of skin; L97.822 Non-pressure chronic ulcer of other part of left lower leg with fat layer exposed; E11.622 Type 2 diabetes mellitus with other skin ulcer; L97.521 Non-pressure chronic ulcer of other part of left foot limited to breakdown of skin; F17.210 Nicotine dependence, cigarettes, uncomplicated | CPT/HCPCS: 97597 ==

== ENCOUNTER 2022-02-27 14:39 | Inpatient (IN) | payer MEDICARE, MEDICAID, SELFPAY ==
[2022-02-27] VITALS (7 sets, daily range): BP systolic 104–127; BP diastolic 62–77; PULSE 70–76; RESP 16–18; TEMP 36.4–36.7; O2SAT 87–92; BMI 30.5
--- NOTE | 2022-02-27 14:51 | ECG_ITS ---
[facility] Test Date: 2022-02-27 Pat Name: Polina Snyder Department: Room: Gender: Female News Copy Editor: : 1960 Requested By: Tirso Ballesteros Order Number: [id number] Rosalba MD: Dora Rodríguez M.D. Measurements Intervals [place] Rate: 69 P: 36 OK: 122 QRS: 30 QRSD: 105 T: 45 QT: 414 QTc: 444 Interpretive Statements SINUS RHYTHM WITH SINUS ARRHYTHMIA Compared to ECG 11/08/2021 11:11:58 No significant changes Electronically Signed On 02-27-2022 18:37:19 CDT by Dora Rodríguez M.D. [id number]
--- NOTE | 2022-02-27 14:52 | W.ED.GENADLT ---
HPI - General Adult General: Chief complaint: Extremity Injury, Lower Stated complaint: sent to ER per X-Ray left leg fracture Time Seen by Provider: 02/27/22 14:44 History of Present Illness: Patient is a 61-year-old female with history of CHF, diabetes, hypertension, right BKA presenting to the emergency room with concerns of left knee pain. Patient reports falling from bed 10 days ago and earlier this morning went for outpatient x-ray and was found to have distal transverse femur fracture. Patient was then told to come to the emergency room. He denies any other injuries or pain elsewhere. Onset: 1 week ago Duration:1 week Location:home Severity:severe Associated symptoms: Deny chest pain, dyspnea, nausea, palpitations or vomiting Review of Systems Const: Denies: fever(s) or chills Eyes: Denies: change in vision ENMT: Denies: mouth pain Card: Denies: chest pain or palpitations Resp: Denies: dyspnea or non-productive cough GI: Denies: abdominal pain, nausea, vomiting or diarrhea : Denies: dysuria Musc: Reports: extremity pain (+L knee pain) Skin/Breast: Reports: new lesions (+l thigh bruises and hematoma) Neuro: Denies: weakness in extremities Psych: Reports: other (Normal mood) Napoleon/Lymph: Denies: easy bruising PFSH ED PFSH: Medical History Anemia Cellulitis Cervical post-laminectomy syndrome Ullzsnn-Iorml-Ggnoo disease-like deformity of foot right Chronic pain Depression with anxiety Diabetes mellitus, type II Diabetic neuropathy associated with type 2 diabetes mellitus Diastolic CHF History of cardioversion history of SVT vs for other arrhythmia History of DVT of lower extremity post-operative Hyperlipidemia Hypertension Lumbar radiculopathy Lung cancer Methamphetamine use Substance abuse Torticollis, acquired Has had good results with Botox in the past Venous stasis ulcer Surgical History History of arthroplasty of left knee (~1976) History of partial hysterectomy Hx of appendectomy Hx of dilation and curettage Hx of neck surgery x 2, posterior laminectomy and cervical fusion with hardware in place, limited ROM neck at baseline Hx of total knee replacement (~2010) Right Hx of tubal ligation Family History Family/Other Hypertension Depression Anxiety Diabetes Father Aneurysm Mother Hypertension Brother Diabetes Sister Diabetes Social History Smoking and tobacco status: never smoked Alcohol intake: never Marital status: History of recent travel: No Additional social history: unknown if patient continues to smoke, documented to smoke previously Physical Exam Const: COMMON NORMALS: alert HENMT: COMMON NORMALS: atraumatic HEAD & SCALP: atraumatic MOUTH: moist mucous membranes not abnormal Eye: COMMON NORMALS: EOMs intact bilaterally and conjunctivae normal CONJUNCTIVA: Yes conjunctivae normal Neck/C-Spine: COMMON NORMALS: full ROM and supple Resp: COMMON NORMALS: normal respiratory effort and clear to auscultation bilaterally AUSCULTATION: clear to auscultation bilaterally Cardio: COMMON NORMALS: regular rate RATE: regular rate GI: COMMON NORMALS: Soft to palpation and non-tender PALPATION: Yes Soft to palpation Extremity: NARRATIVE EXTREMITY EXAM: + Significant L distal femur/knee tenderness to palpation, neurovascular exam intact in the affected extremity, compartment is soft in the thigh and tib-fib on the affected side Neuro: SENSORIUM/ORIENTATION: Yes alert MOTOR EXAM: No Abnormal motor strength present and Other motor observations present (no focal motor deficits) Psych: COMMON NORMALS: speech normal SPEECH: Yes normal speech MOOD & AFFECT: Yes euthymic mood Skin: NARRATIVE SKIN EXAM: +Multiple thigh hematoma and bruises on the L leg Course Vital Signs: Vital signs: Vital Signs Temperature 98.0 F 02/28/22 07:12 Pulse Rate 86 02/28/22 08:13 Respiratory Rate 20 H 02/28/22 08:37 Blood Pressure 117/70 02/28/22 07:57 Pulse Oximetry 90 02/28/22 08:13 MDM - General Adult Medical Decision Making 61-year-old female presenting to the emergency room with concerns of left distal femur fracture. Neurovascular exam is intact. Pain is improved with 4 mg of morphine. Case was discussed with Dr. Simons who will evaluate for possible surgery. Patient will be admitted to medicine. Disposition: admission Lab Data : 02/28/22 05:25 02/28/22 05:[address] 02/27/22 14:59 IMPRESSION: 1. Acute, comminuted oblique fracture of the distal metaphysis of the left femur. There is posterior displacement of approximately 1/2 shaft width and mild impaction of the distal fracture fragment. Numerous small butterfly fragments are also seen at the fracture site. 2. Extensive subcutaneous edema in the visualized gluteal subcutaneous tissues and extending inferiorly along the left thigh. 3. Bilobed fluid collection with the fat fluid level suspicious for hematoma in the distal left thigh the pleural. There is more diffuse moderate soft tissue hemorrhage in the both the anterior and posterior compartments of the distal left thigh around the fracture. 4. Old, ununited, minimally displaced fracture of the medial tibial plateau with mild, 4 mm depression of the tibial fracture. 5. Marked tricompartment degenerative changes at the left knee.There is a fabella in the soft tissues posterior to the knee. 6. There is mild posterior subluxation of the tibia with respect to the femur, it is uncertain whether this could be due to acute ligamentous injury or if findings represent chronic ligamentous laxity. 7. Multiple small calcifications are seen within the suprapatellar recess of the left knee joint, findings could represent intra-articular loose bodies or possibly synovial osteochondromatosis. 8. Marked degenerative changes at the left hip. 9. Incidental/nonacute findings are listed in the report. Imaging Data Other Imaging: Radiologist's impression: [employer] [place] [address] XRay Report Signed Patient: Polina Snyder Unit #: [id number] : 1960 Age/Sex: 61 / F ADM Date: 02/27/22 Loc: [facility] Room/Bed: Attending Dr: Casey Champagne MD Ordering Provider/Ordering MD: Casey Champagne MD (Andy) Date of Service: 02/27/22 Procedure(s): XR knee LT 1-2V 06782 Accession Number(s): [id number] Report Number: [id number] PROCEDURE INFORMATION: Exam: XR Left Knee Exam date and time: 02/27/2022 1:37 PM Age: 61 years old Clinical indication: Injury or trauma; Fall; Blunt trauma; Thigh or upper leg; Injury date: 02/16/22? ; Patient HX: PT fell 02/16/22. C/O bruising lt posterior hip and pain left femur. Swelling-redness left lower leg. Right leg has been amputated; Additional info: Effusion left knee TECHNIQUE: Imaging protocol: XR Left knee. Views: 1 or 2 views. COMPARISON: CR XR knee LT 1-2V [id number] 12/28/2020 4:12 PM FINDINGS: Bones/joints: There is transverse subluxed fracture of the distal shaft of the left femur. Severe osteoarthritis is seen with tricompartmental narrowing and sclerosis in the knee. Soft tissues: Unremarkable XR/XR knee LT 1-2V 72179 IMPRESSION: 1. Transverse subluxed fracture distal shaft of the femur. 2. Severe osteoarthritis of the knee. 3. Otherwise negative examination ? Dictated By: Wicho Castillo Signed By: Wicho Castillo Signed Date/Time: 02/27/22 1419 DD/ [address] [address] [address] Scan Report Signed Patient: Polina Snyder Unit #: [id number] : 1960 Age/Sex: 61 / F ADM Date: 02/27/22 Loc: [facility] Room/Bed: [facility] Attending [address]: Michel Pelletier MD Ordering Provider/Ordering MD: Tirso Ballesteros MD Date of Service: 02/27/22 Procedure(s): CT femur LT wo con* [id number] Accession Number(s): [id number] Report Number: [id number] PROCEDURE INFORMATION: Exam: CT Left Lower Extremity Without Contrast; Thigh Exam date and time: 02/27/2022 6:02 PM Age: 61 years old Clinical indication: Injury or trauma; Fall; Fracture, traumatic; Closed fracture; Femur; Left; Additional info: Distal femur FX TECHNIQUE: Imaging protocol: CT of the Left lower extremity without contrast was performed. Exam focused on the thigh. Sagittal and coronal reformatted images were created from this the submitted axial images. Radiation optimization: All CT scans at this facility use at least one of these dose optimization techniques: automated exposure control; mA and/or kV adjustment per patient size (includes targeted exams where dose is matched to clinical indication); or iterative reconstruction. COMPARISON: CT chest abd pel w con* 12/30/2020 2:41 PM RADIATION DOSE METRICS: Total DLP (mGy-cm): 1053.42 FINDINGS: Bones/joints: There is an acute, comminuted oblique fracture of the distal metaphysis of the left femur. There is posterior displacement of approximately 1/2 shaft width and mild impaction of the distal fracture fragment. Numerous small butterfly fragments are also seen at the fracture site. Old, ununited, minimally displaced fracture of the medial tibial plateau with mild, 4 mm depression of the tibial fracture. Marked tricompartment degenerative changes at the left knee with near complete loss of joint space height, large osteophytes, and subchondral sclerosis/subchondral at all 3 compartments. There is mild posterior subluxation of the tibia with respect to the femur, it is uncertain whether this could be due to acute ligamentous injury or if findings represent chronic ligamentous laxity. Multiple small calcifications are seen within the suprapatellar recess of the left knee joint, findings could represent intra-articular loose bodies or possibly synovial osteochondromatosis. Marked degenerative changes at the left hip with large osteophytes, subchondral sclerosis/subchondral cysts, and complete loss of joint space height. Soft tissues: Extensive subcutaneous edema in the visualized gluteal subcutaneous tissues and extending inferiorly along the left thigh. No radiopaque foreign body. Bilobed fluid collection with the fat fluid level suspicious for hematoma in the distal left thigh, this measures 3.2 x 3.9 x 4.3 cm (series 2, images 117 and 121). There is more diffuse moderate soft tissue hemorrhage in the both the anterior and posterior compartments of the distal left thigh around the fracture. CT/CT femur LT wo con* [id number] IMPRESSION: 1. Acute, comminuted oblique fracture of the distal metaphysis of the left femur. There is posterior displacement of approximately 1/2 shaft width and mild impaction of the distal fracture fragment. Numerous small butterfly fragments are also seen at the fracture site. 2. Extensive subcutaneous edema in the visualized gluteal subcutaneous tissues and extending inferiorly along the left thigh. 3. Bilobed fluid collection with the fat fluid level suspicious for hematoma in the distal left thigh the pleural. There is more diffuse moderate soft tissue hemorrhage in the both the anterior and posterior compartments of the distal left thigh around the fracture. 4. Old, ununited, minimally displaced fracture of the medial tibial plateau with mild, 4 mm depression of the tibial fracture. 5. Marked tricompartment degenerative changes at the left knee.There is a fabella in the soft tissues posterior to the knee. 6. There is mild posterior subluxation of the tibia with respect to the femur, it is uncertain whether this could be due to acute ligamentous injury or if findings represent chronic ligamentous laxity. 7. Multiple small calcifications are seen within the suprapatellar recess of the left knee joint, findings could represent intra-articular loose bodies or possibly synovial osteochondromatosis. 8. Marked degenerative changes at the left hip. 9. Incidental/nonacute findings are listed in the report. ? Dictated By: Silvina Blanco MD Signed By: Silvina Blanco MD Signed Date/Time: 02/27/221942 DD/ 01 Discharge Plan Discharge Patient Disposition: Admitted As Inpatient Admit Provider: Michel Pelletier Clinical Impression: Closed femur fracture Condition: Stable Coding Level of Care Code ED Ship Runner for g Fwd Exam Comprehensive
--- NOTE | 2022-02-27 14:59 | CTR_ITS ---
PROCEDURE INFORMATION: Exam: CT Left Lower Extremity Without Contrast; Thigh Exam date and time: 02/27/2022 6:02 PM Age: 61 years old Clinical indication: Injury or trauma; Fall; Fracture, traumatic; Closed fracture; Femur; Left; Additional info: Distal femur FX TECHNIQUE: Imaging protocol: CT of the Left lower extremity without contrast was performed. Exam focused on the thigh. Sagittal and coronal reformatted images were created from this the submitted axial images. Radiation optimization: All CT scans at this facility use at least one of these dose optimization techniques: automated exposure control; mA and/or kV adjustment per patient size (includes targeted exams where dose is matched to clinical indication); or iterative reconstruction. COMPARISON: CT chest abd pel w con* 12/30/2020 2:41 PM RADIATION DOSE METRICS: Total DLP (mGy-cm): 1053.42 FINDINGS: Bones/joints: There is an acute, comminuted oblique fracture of the distal metaphysis of the left femur. There is posterior displacement of approximately 1/2 shaft width and mild impaction of the distal fracture fragment. Numerous small butterfly fragments are also seen at the fracture site. Old, ununited, minimally displaced fracture of the medial tibial plateau with mild, 4 mm depression of the tibial fracture. Marked tricompartment degenerative changes at the left knee with near complete loss of joint space height, large osteophytes, and subchondral sclerosis/subchondral at all 3 compartments. There is mild posterior subluxation of the tibia with respect to the femur, it is uncertain whether this could be due to acute ligamentous injury or if findings represent chronic ligamentous laxity. Multiple small calcifications are seen within the suprapatellar recess of the left knee joint, findings could represent intra-articular loose bodies or possibly synovial osteochondromatosis. Marked degenerative changes at the left hip with large osteophytes, subchondral sclerosis/subchondral cysts, and complete loss of joint space height. Soft tissues: Extensive subcutaneous edema in the visualized gluteal subcutaneous tissues and extending inferiorly along the left thigh. No radiopaque foreign body. Bilobed fluid collection with the fat fluid level suspicious for hematoma in the distal left thigh, this measures 3.2 x 3.9 x 4.3 cm (series 2, images 117 and 121). There is more diffuse moderate soft tissue hemorrhage in the both the anterior and posterior compartments of the distal left thigh around the fracture. CT/CT femur LT wo con* [id number] IMPRESSION: 1. Acute, comminuted oblique fracture of the distal metaphysis of the left femur. There is posterior displacement of approximately 1/2 shaft width and mild impaction of the distal fracture fragment. Numerous small butterfly fragments are also seen at the fracture site. 2. Extensive subcutaneous edema in the visualized gluteal subcutaneous tissues and extending inferiorly along the left thigh. 3. Bilobed fluid collection with the fat fluid level suspicious for hematoma in the distal left thigh the pleural. There is more diffuse moderate soft tissue hemorrhage in the both the anterior and posterior compartments of the distal left thigh around the fracture. 4. Old, ununited, minimally displaced fracture of the medial tibial plateau with mild, 4 mm depression of the tibial fracture. 5. Marked tricompartment degenerative changes at the left knee.There is a fabella in the soft tissues posterior to the knee. 6. There is mild posterior subluxation of the tibia with respect to the femur, it is uncertain whether this could be due to acute ligamentous injury or if findings represent chronic ligamentous laxity. 7. Multiple small calcifications are seen within the suprapatellar recess of the left knee joint, findings could represent intra-articular loose bodies or possibly synovial osteochondromatosis. 8. Marked degenerative changes at the left hip. 9. Incidental/nonacute findings are listed in the report.
[2022-02-27] MEDS: morphine 4 mg/mL SDV 1 mL IVP (16:19)
[2022-02-27 16:42] LABS: Basophils # 0.1 10^3/uL (0.0-0.1); Basophils % 0.7 %; Eosinophils # 0.3 10^3/uL (0.0-0.8); Eosinophils % 3.3 %; Hematocrit 32.7 % (37.0-47.0); Lymphocytes # 1.7 10^3/uL (0.8-4.8); Lymphocytes % 18.9 %; Mean Corpuscular HGB Conc 30.6 g/dL (30.0-36.0); Mean Corpuscular Hemoglobin 29.5 pg (28.0-34.0); Mean Corpuscular Volume 96.5 fl (81-99); Mean Platelet Volume 10.1 fL (7.4-10.4); Monocytes # 1.1 10^3/uL (0.2-0.9); Monocytes % 12.2 %; Neutrophils # 5.61 10^3/uL (1.8-7.7); Neutrophils % 64.1 %; Nucleated Red Blood Cells % 0.3 %; Platelet Count 319 10^3/cmm (130-400); Red Blood Count 3.39 10^6/uL (4.1-5.3); Red Cell Distribution Width 15.7 % (12.1-15.1); White Blood Count 8.8 10^3/uL (4.0-10.0)
[2022-02-27 16:55] LABS: Anion Gap 11.2 (5-19); Blood Urea Nitrogen 16 mg/dL (8-23); Calcium 9.5 mg/dL (8.5-10.5); Carbon Dioxide 30 mmol/L (22-29); Chloride 101 mmol/L (98-107); Glomerular Filtration Rate 226.2 mL/min (90-130); Glucose 123 mg/dL (65-115); INR 0.98 (0.8-1.2); Osmolality Calculated 289 mOsm/kg (285-295); Potassium 4.2 mmol/L (3.5-5.1); Sodium 138 mmol/L (136-145)
--- NOTE | 2022-02-27 17:21 | PM.HP ---
Providers/Chief Complaint Admitting Physician: Michel Pelletier MD Primary Care Provider: Wilner Hdez DO Chief Complaint: sent to ER per X-Ray left leg fracture History of Present Illness Polina Snyder is a 61 year old female with past medical history of hypertension , diabetes , status post right aka was admitted with chief complaint of Left lower extremity pain, which he experienced after having slipped from her bed at home. Upon arrival in the ER she was worked up for above-mentioned complaint. Pertinent imaging studies: XR knee LT?: Transverse subluxed fracture distal shaft of the femur. CT femur left without contrast: Review of Systems General: Reports: 10 or more systems reviewed and unremarkable except in HPI and below Const: Denies: fever(s), chills, body aches, change in appetite or diaphoresis Card: Denies: palpitations, edema, swelling of feet/ankles, dyspnea on exertion, orthopnea or leg pain with exertion Resp: Denies: dyspnea, productive cough, wheezing or pain on inspiration GI: Denies: abdominal pain, nausea, vomiting, diarrhea or constipation : Denies: flank pain Musc: Denies: back pain, extremity pain or extremity swelling Neuro: Denies: headache(s), difficulty walking or confusion Medications/Allergies Home Medications Medication Instructions Recorded Confirmed Last Taken Type potassium chloride 20 mEq 20 meq PO QAM PRN 03/15/20 02/27/22 Unknown History tablet,extended release baclofen 20 mg tablet 20 mg PO BID tab 02/01/21 02/27/22 Unknown History amlodipine 10 mg tablet 10 mg PO QAM 03/11/21 02/27/22 Unknown History fenofibrate micronized 200 mg 200 mg PO BEDTIME 03/11/21 02/27/22 11/07/21 History capsule pantoprazole 40 mg tablet,delayed 40 mg PO BID 03/11/21 02/27/22 Unknown History release (Protonix) ondansetron 4 mg disintegrating 4 mg PO Q6H PRN #12 tab 06/07/21 02/27/22 Unknown Rx tablet aspirin 325 mg tablet 325 mg PO DAILY 08/17/21 02/27/22 Unknown History Probiotic 1 cap PO DAILY 11/08/21 02/27/22 Unknown History albuterol sulfate 90 mcg/actuation 2 puff INHALATION Q4H PRN 11/08/21 02/27/22 Unknown History aerosol inhaler atenolol 100 mg tablet 100 mg PO BID 11/08/21 02/27/22 Unknown History cholecalciferol (vitamin D3) 125 125 mcg PO DAILY 11/08/21 02/27/22 Unknown History mcg (5,000 unit) tablet (Vitamin D3) fluticasone propionate 50 2 spray INTRANASAL DAILY PRN 11/08/21 02/27/22 Unknown History mcg/actuation nasal spray,suspension gabapentin 400 mg capsule 1,200 mg PO TID 11/08/21 02/27/22 Unknown History ipratropium bromide 17 2 puff INHALATION Q6H 11/08/21 02/27/22 Unknown History mcg/actuation HFA aerosol inhaler (Atrovent HFA) lidocaine-prilocaine 2.5 %-2.5 % 1 applic TOPICAL . DIRECTED 11/08/21 02/27/22 Unknown History topical cream fluconazole 200 mg tablet 200 mg PO DAILY #7 tab 11/11/21 02/27/22 Unknown Rx (Diflucan) buspirone 5 mg tablet 5 mg PO BID tab 01/30/22 02/27/22 Unknown History furosemide 40 mg tablet 40 mg PO BID tab 01/30/22 02/27/22 Unknown History metformin 500 mg tablet 1,000 mg PO BID tab 01/30/22 02/27/22 Unknown History venlafaxine 75 mg capsule,extended 75 mg PO DAILY 30 Days #30 cap 02/13/22 02/27/22 Unknown Rx release 24 hr (Effexor XR) hydrocodone 5 mg-acetaminophen 325 1 tab PO Q8H PRN 5 Days #14 tab 02/26/22 02/27/22 Unknown Rx mg tablet ketorolac 10 mg tablet 10 mg PO TID PRN 5 Days #15 tab 02/26/22 02/27/22 Unknown Rx levofloxacin 500 mg tablet 500 mg PO DAILY #7 tab 02/26/22 02/27/22 Unknown Rx temazepam 15 mg capsule 15 mg PO .qhs PRN 10 Days #10 cap 02/26/22 02/27/22 Unknown Rx MDD 1 Allergies Allergy/AdvReac Type Severity Reaction Status Date / Time adhesive tape Allergy rash Verified 02/27/22 16:33 amitriptyline Allergy Unknown Verified 02/27/22 16:33 nitrofurantoin Allergy ADR-Vomitin Verified 02/27/22 16:33 [From Macrobid] g Sulfa (Sulfonamide Allergy Itch all Verified 02/27/22 16:33 Antibiotics) over PFSH Acute PFSH: Medical History Anemia Cellulitis Cervical post-laminectomy syndrome Nqdcwhi-Wblez-Aqgrl disease-like deformity of foot right Chronic pain Depression with anxiety Diabetes mellitus, type II Diabetic neuropathy associated with type 2 diabetes mellitus Diastolic CHF History of cardioversion history of SVT vs for other arrhythmia History of DVT of lower extremity post-operative Hyperlipidemia Hypertension Lumbar radiculopathy Lung cancer Methamphetamine use Substance abuse Torticollis, acquired Has had good results with Botox in the past Venous stasis ulcer Surgical History History of arthroplasty of left knee (~1976) History of partial hysterectomy Hx of appendectomy Hx of dilation and curettage Hx of neck surgery x 2, posterior laminectomy and cervical fusion with hardware in place, limited ROM neck at baseline Hx of total knee replacement (~2010) Right Hx of tubal ligation Family History Family/Other Hypertension Depression Anxiety Diabetes Father Aneurysm Mother Hypertension Brother Diabetes Sister Diabetes Social History Smoking and tobacco status: never smoked Alcohol intake: never Marital status: History of recent travel: No Additional social history: unknown if patient continues to smoke, documented to smoke previously Vitals/I&O/Wt Last Vital Signs Temp 98.1 F 02/27/22 17:07 Pulse 73 02/27/22 17:07 Resp 16 02/27/22 17:07 BP 127/73 02/27/22 17:07 Pulse Ox 92 02/27/22 17:07 Weight last 48 hrs Weight 88.451 kg Physical Exam Const: COMMON NORMALS: patient oriented x3 HENMT: COMMON NORMALS: normocephalic and atraumatic HEAD & SCALP: normocephalic and atraumatic Chest: CHEST: Yes Symmetrical chest wall rise Resp: COMMON NORMALS: clear to auscultation bilaterally EFFORT & INSPECTION: Yes symmetric chest movement AUSCULTATION: clear to auscultation bilaterally Cardio: COMMON NORMALS: regular rate, regular rhythm, S1 normal heart sound present, S2 normal heart sound present, No gallops present (Cardio), No murmurs present (Cardio), No rub (Cardio) and Peripheral pulses 2+ throughout RATE: regular rate RHYTHM: regular rhythm HEART SOUNDS: S1 normal heart sound present and S2 normal heart sound present PERIPHERAL PULSES: Peripheral pulses 2+ throughout GI: COMMON NORMALS: Normal to inspection, nondistended, normoactive bowel sounds present, Soft to palpation, non-tender, No hepatosplenomegaly present and no masses AUSCULTATION: Yes normoactive bowel sounds PALPATION: Yes Soft to palpation and Yes No hepatosplenomegaly present RECTAL EXAM: deferred Extremity: NARRATIVE EXTREMITY EXAM: S/p rt AKA , Neuro: COMMON NORMALS: patient oriented x3 Data : 02/27/22 16:13 02/27/22 16:13 A&P Assessment and plan (1) Diabetes mellitus, type II: Status: Acute (2) Hypertension: Status: Acute (3) Closed femur fracture: Status: Acute Plan Polina Snyder is a 61 year old female with past medical history of hypertension , diabetes , status post right aka was admitted with chief complaint of Left lower extremity pain, which he experienced after having slipped from her bed at home. Assessment: #Left femur shaft fracture: Pain control Bowel regimen Orthopedic on board #Diabetes: SSI Carb consistent diet Monitor fingerstick glucose #Hypertension: 100 mg p.o. twice daily #CODE STATUS: Full code #DVT prophylaxis on Lovenox Attestations Medical Necessity Statement*: Patient is doing hospital for management of left femur fracture. Anticipated length of stay greater than 2 midnights Time Spent in Patient Care: Greater than 35 minutes (>than 50% of time spent in counselling and/or direct pt care on unit). Coding Level of Care Code Acute Medical Secretary Receptionist for Chg Fwd Exam Detailed Diagnoses Diabetes mellitus, type II E11.9 Hypertension I10 Closed femur fracture S72.90XA
--- NOTE | 2022-02-27 17:55 | PC.NURSE ---
Pt was taken to CT by manufacturer agent. While in ct a stroke alert came in and she was placed in the hallway. Pt was taken back to room to await another time for CT. After a few minutes she was taken back to CT. She came back shortly after crying. motion picture camera lens technician came to me and stated that my patient was upset because she accidentally hit her stretcher on the wall while pushing her. I went to the pt room to check on her. Pt was crying and stated that the motion picture camera lens technician was rude to her. She was not gentle when moving her over to the scanner. I consoled pt and told charge nurse.
[2022-02-27] MEDS: sodium chloride 0.9% 1,000 ML 50 ML IV (18:29)
[2022-02-27] MEDS: BuSPIRONE 10 mg Tablet 5 MG PO (18:29)
[2022-02-27] MEDS: docusate sodium 100 mg Capsule PO (18:29)
[2022-02-27] MEDS: morphine 4 mg/mL SDV 1 mL 2 MG IVP ×2 (18:29→21:06)
[2022-02-27] MEDS: enoxaparin 40 mg/0.4 mL Syringe SUBCUT (18:29)
[2022-02-27 20:52] LABS: Glucose Point of Care 105 mg/dL (70-110)
[2022-02-28] VITALS (24 sets, daily range): BP systolic 98–167; BP diastolic 60–81; PULSE 66–110; RESP 12–20; TEMP 36.3–37.1; O2SAT 85–98
--- NOTE | 2022-02-28 | SCC_ITS ---
Procedure done: Let IM nail for distal femur fracture 95.4 seconds of fluoroscopic guidance, for a cumulative dose of 9.63 mGy, was provided to Dr. Simons by the radiology department. C-arm images of the left femur were saved for the patient's permanent record. [id number]
[2022-02-28] MEDS: morphine 4 mg/mL SDV 1 mL IVP ×3 (00:10→12:46)
[2022-02-28] MEDS: morphine 4 mg/mL SDV 1 mL 2 MG IVP ×3 (02:29→20:47)
[2022-02-28] MEDS: amlodipine 10 mg Tablet PO (05:21)
[2022-02-28 06:14] LABS: Basophils # 0.1 10^3/uL (0.0-0.1); Basophils % 0.8 %; Eosinophils # 0.3 10^3/uL (0.0-0.8); Eosinophils % 3.7 %; Hematocrit 31.7 % (37.0-47.0); Hemoglobin 9.8 g/dL (11.5-15.3); Lymphocytes # 1.3 10^3/uL (0.8-4.8); Lymphocytes % 14.6 %; Mean Corpuscular HGB Conc 30.9 g/dL (30.0-36.0); Mean Corpuscular Hemoglobin 30.2 pg (28.0-34.0); Mean Corpuscular Volume 97.8 fl (81-99); Mean Platelet Volume 9.9 fL (7.4-10.4); Monocytes # 0.8 10^3/uL (0.2-0.9); Monocytes % 8.5 %; Neutrophils # 6.58 10^3/uL (1.8-7.7); Neutrophils % 71.6 %; Nucleated Red Blood Cells % 0 %; Platelet Count 295 10^3/cmm (130-400); Red Blood Count 3.24 10^6/uL (4.1-5.3); Red Cell Distribution Width 15.7 % (12.1-15.1); White Blood Count 9.2 10^3/uL (4.0-10.0)
--- NOTE | 2022-02-28 06:36 | NUR.SHIFT ---
Patient able to rest between doses of pain medication. Did report discomfort frequently, pillows and repositioning done as well as manager medicare which was effective for some time but did require frequent assessment/intervention. IV in right arm patent and intact infusing ns at 50ml/hr. Dressing to LLE dry and intact, pressure wounds noted to limb. Continent and used bedpan to void this shift.
--- NOTE | 2022-02-28 06:57 | P.CONIM_ITS ---
Providers/Reason For Consult Consulting Physician/Specialty*: Orthopedics Reason for Consult*: Left leg pain Attending Physician: Michel Pelletier MD Primary Care Provider: Wilner Hdez DO History of Present Illness History of Present Illness Polina Snyder is a 61 year old female from her bed on 02/27/2022 at her residence. She felt immediate pain in the left leg she transported to [facility] emergency room where x-rays confirmed a left distal femur fracture. She has had multiple falls and has had wounds on her left mid tibial region from a fall 3 months ago and she has been in the wound clinic with Dr. Champagne following her left leg wounds. She is diabetic and states her last hemoglobin A1c was between 5 and 6. Following the most recent fall she did not report loss of consciou sness. Denies any neck or back pain. All of her pain is localized to the left leg. She had extensive knee pain prior to the fall. She has had an [id number] amputation [address] Champagne from a Charcot foot. She does not have a prosthetic limb for the right lower extremity. Pain has been sharp stabbing constant nature in the left leg. Any movement makes it much worse. Medicines have given her some temporary relief. An extensive review of the patient's past medical history, surgical history, allergies, medications, family history, social history, and review of systems was completed Review of Systems General: Reports: 10 or more systems reviewed and unremarkable except in HPI and below Const: Denies: fever(s), chills, body aches, change in appetite or diaphoresis Card: Denies: palpitations, edema, swelling of feet/ankles, dyspnea on exertion, orthopnea or leg pain with exertion Resp: Denies: dyspnea, productive cough, wheezing or pain on inspiration GI: Denies: abdominal pain, nausea, vomiting, diarrhea or constipation : Denies: flank pain Musc: Denies: back pain, extremity pain or extremity swelling Neuro: Denies: headache(s), difficulty walking or confusion Medications/Allergies Home Medications Medication Instructions Recorded Confirmed Last Taken Type potassium chloride 20 mEq 20 meq PO QAM PRN 03/15/20 02/27/22 Unknown History tablet,extended release baclofen 20 mg tablet 20 mg PO BID tab 02/01/21 02/27/22 Unknown History amlodipine 10 mg tablet 10 mg PO QAM 03/11/21 02/27/22 Unknown History fenofibrate micronized 200 mg 200 mg PO BEDTIME 03/11/21 02/27/22 11/07/21 History capsule pantoprazole 40 mg tablet,delayed 40 mg PO BID 03/11/21 02/27/22 Unknown History release (Protonix) ondansetron 4 mg disintegrating 4 mg PO Q6H PRN #12 tab 06/07/21 02/27/22 Unkno wn Rx tablet aspirin 325 mg tablet 325 mg PO DAILY 08/17/21 02/27/22 Unknown History Probiotic 1 cap PO DAILY 11/08/21 02/27/22 Unknown History albuterol sulfate 90 mcg/actuation 2 puff INHALATION Q4H PRN 11/08/21 02/27/22 Unknown History aerosol inhaler atenolol 100 mg tablet 100 mg PO BID 11/08/21 02/27/22 Unknown History cholecalciferol (vitamin D3) 125 125 mcg PO DAILY 11/08/21 02/27/22 Unknown History mcg (5,000 unit) tablet (Vitamin D3) fluticasone propionate 50 2 spray INTRANASAL DAILY PRN 11/08/21 02/27/22 Unknown History mcg/actuation nasal spray,suspension gabapentin 400 mg capsule 1,200 mg PO TID 11/08/21 02/27/22 Unknown History ipratropium bromide 17 2 puff INHALATION Q6H 11/08/21 02/27/22 Unknown History mcg/actuation HFA aerosol inhaler (Atrovent HFA) lidocaine-prilocaine 2.5 %-2.5 % 1 applic TOPICAL . DIRECTED 11/08/21 02/27/22 Unknown History topical cream fluconazole 200 mg tablet 200 mg PO DAILY #7 tab 11/11/21 02/27/22 Unknown Rx (Diflucan) buspirone 5 mg tablet 5 mg PO BID tab 01/30/22 02/27/22 Unknown History furosemide 40 mg tablet 40 mg PO BID tab 01/30/22 02/27/22 Unknown History metformin 500 mg tablet 1,000 mg PO BID tab 01/30/22 02/27/22 Unknown History venlafaxine 75 mg capsule,extended 75 mg PO DAILY 30 Days #30 cap 02/13/22 02/27/22 Unknown Rx release 24 hr (Effexor XR) hydrocodone 5 mg-acetaminophen 325 1 tab PO Q8H PRN 5 Days #14 tab 02/26/22 0 02/27/22 Unknown Rx mg tablet ketorolac 10 mg tablet 10 mg PO TID PRN 5 Days #15 tab 02/26/22 02/27/22 Unknown Rx levofloxacin 500 mg tablet 500 mg PO DAILY #7 tab 02/26/22 02/27/22 Unknown Rx temazepam 15 mg capsule 15 mg PO .qhs PRN 10 Days #10 cap 02/26/22 02/27/22 Unknown Rx MDD 1 Allergies Allergy/AdvReac Type Severity Reaction Status Date / Time adhesive tape Allergy rash Verified 02/27/22 16:33 amitriptyline Allergy Unknown Verified 02/27/22 16:33 nitrofurantoin Allergy ADR-Vomitin Verified 02/27/22 16:33 [From Macrobid] g Sulfa (Sulfonamide Allergy Itch all Verified 02/27/22 16:33 Antibiotics) over Current Medications Generic Name Dose Route Start Last Admin Trade Name Freq PRN Reason Stop Dose Admin Amlodipine Besylate 10 mg 02/28/22 06:00 02/28/22 05:21 Amlodipine 10 Mg Tablet PO 10 mg QAM RANJIT Administration Buspirone HCl 5 mg 02/27/22 18:00 02/27/22 18:29 Buspirone 10 Mg Tablet PO 5 mg BID RANJIT Administration Docusate Sodium 100 mg 02/27/22 18:00 02/27/22 18:29 Docusate Sodium 100 Mg Capsule PO 100 mg BID RANJIT Administration Enoxaparin Sodium 40 mg 02/27/22 18:00 02/27/22 18:29 Enoxaparin 40 Mg/0.4 Ml Syringe SUBCUT 40 mg Q24H RANJIT Administration Sodium Chloride 1,000 mls @ 50 mls/hr 02/27/22 17:30 02/27/22 18:29 Sodium Chloride 0.9% IV 50 mls/hr .Q20H RANJIT Administration Morphine Sulfate 2 mg 02/27/22 17:27 02/28/22 02:29 Morphine 4 Mg/Ml Sdv 1 Ml IVP 2 mg Q2H PRN Administration SEVERE PAIN Morphine Sulfate 4 mg 02/28/22 00:07 02/28/22 05:20 Morphine 4 Mg/Ml Sdv 1 Ml IVP 4 mg Q2H PRN Administration SEVERE PAIN PFSH Acute PFSH: Medical History Anemia Cellulitis Cervical post-laminectomy syndrome Ulrhkue-Ltatl-Fpujk disease-like deformity of foot right Chronic pain Depression with anxiety Diabetes mellitus, type II Diabetic neuropathy associated with type 2 diabetes mellitus Diastolic CHF History of cardioversion history of SVT vs for other arrhythmia History of DVT of lower extremity post-operative Hyperlipidemia Hypertension Lumbar radiculopathy Lung cancer Methamphetamine use Substance abuse Torticollis, acquired Has had good results with Botox in the past Venous stasis ulcer Surgical History History of arthroplasty of left knee (~1976) History of partial hysterectomy Hx of appendectomy Hx of dilation and curettage Hx of neck surgery x 2, posterior laminectomy and cervical fusion with hardware in place, limited ROM neck at baseline Hx of total knee replacement (~2010) Right Hx of tubal ligation Family History Family/Other Hypertension Depression Anxiety Diabetes Father Aneurysm Mother Hypertension Brother Diabetes Sister Diabetes Social History Smoking and tobacco status: never smoked Alcohol intake: never Marital status: History of recent travel: No Additional social history: unknown if patient continues to smoke, documented to smoke previously Vitals/I&O/Wt Last Vital Signs Temp 98.0 F 02/28/22 04:00 Pulse 66 02/28/22 04:00 Resp 20 H 02/28/22 05:20 BP 98/60 02/28/22 04:00 Pulse Ox 90 02/28/22 04:00 Weight last 48 hrs Weight 195 lb Physical Exam Narrative: She is alert and orient x3 has a good general appearance normal normal affect. She has [id number] amputation on the right. Patient is laying in the right lateral position with ecchymosis through the left leg. She has tenderness with palpation over the distal portion of the femur. She has dressings on her left tibial region. With edematous tissue through the left leg into the foot. She is able to slightly wiggle her toes with decreased sensation to light touch. They are warm to the touch. She has 1+ pitting edema in the left lower extremity. She has no palpable pain in the lumbar thoracic region she moves both upper extremities hands warm good cap refill no palpable pain in the shoulders elbows or wrists. Radial pulses are palpable. HENMT: COMMON NORMALS: normocephalic and atraumatic HEAD & SCALP: normocephalic and atraumatic Resp: COMMON NORMALS: normal respiratory effort Cardio: COMMON NORMALS: regular rate and regular rhythm RATE: regular rate RHYTHM: regular rhythm GI: COMMON NORMALS: Soft to palpation PALPATION: Yes Soft to palpation : COMMON NORMALS: Yes no CVA tenderness BLADDER/KIDNEY EXAM: Yes no CVA tenderness Back/Pelvis: COMMON NORMALS: no CVA tenderness Psych: COMMON NORMALS: cooperative Skin: NARRATIVE SKIN EXAM: Wounds on the left lower extremity. Data : 02/28/22 05:25 02/27/22 16:13 A&P Assessment and plan (1) Closed fracture of left distal femur: Discussed with her treatment options involve open reduction internal fixation of the left leg versus intramedullary nailing to the left femur. Discussed that she has a very degenerative left knee which certainly will cause worsening of her osteoarthritis. Discussed the wounds on her left leg from fall 3 months ago that have had delayed healing certainly offering complexity to increase risk of infection. Discussed with her her [id number] amputation on the right making it difficult for her to mobilize transfer as she does not have a prosthetic limb for the right either. She understands these complex risks. We will have social media job titles discuss options for placement as well as physical therapy to work with transferring postoperatively. All questions were discussed all risks were discussed patient understands. Discussed this with Dr. Lynch and he agrees above-stated plan. Status: Acute (2) Degenerative joint disease of left knee: Status: Acute Coding Level of Care Code New Pt Acute Paint And Table Edger for g Fwd Patient Type New History Detailed Exam Detailed Medical Decision Making Moderate Complexity Diagnoses Closed fracture of left distal femur S72.402A Degenerative joint disease of left knee M17.12 Time Spent (min) 30
[2022-02-28 07:02] LABS: Anion Gap 12.8 (5-19); Blood Urea Nitrogen 8 mg/dL (8-23); Carbon Dioxide 29 mmol/L (22-29); Chloride 102 mmol/L (98-107); Glomerular Filtration Rate 361.1 mL/min (90-130); Glucose 96 mg/dL (65-115); Osmolality Calculated 288 mOsm/kg (285-295); Potassium 3.8 mmol/L (3.5-5.1); Sodium 140 mmol/L (136-145)
[2022-02-28] MEDS: venlafaxine ER (24HR) 75 mg Capsule PO (09:08)
[2022-02-28] MEDS: docusate sodium 100 mg Capsule PO (09:08)
[2022-02-28] MEDS: BuSPIRONE 10 mg Tablet 5 MG PO (09:09)
--- NOTE | 2022-02-28 11:17 | PC.CHAP ---
Pastoral Care Encounter/Spiritual Assessment Type of Contact [] Declined whizzer hand visit [] Patient/Family/Request visit [] Outpatient visit [] Follow-up visit [] Physician referral [] Code/Alert [x] Routine visit [] Staff referral [] Actively dying [x] Patient sleeping [] Family support [] [] Out of room [] Palliative care [] [] Receiving care in room [] Pre-surgical visit [] Trauma [] Long length of stay [] ICU visit [] Other: Relational/Emotional Strength [] Patient feels connected with others/family/visitors/staff [] Distress [] Loneliness/isolation [] Abandonment Spirituality of Patient [] Person of Amee [] Attends Mosque of their Amee [] Believes in Prayer [] Reads Bible or Jehovah'S Witness materials [] There are Spiritual issues to be addressed Inspector Multifocal Lens Interventions [] Prayer [] Active listening [] Non-anxious presence [] Spiritual/emotional support [] Crisis/trauma care [] Spiritual counseling [] Bereavement support [] Provided bereavement packet [] Provided Bible/devotional materials [] Provided toy/stuffed animal, coloring book to patient or family member [] Provided Communion [] Anointing/Hayden [] Salvation [] Completed spiritual assessment [] Other: Impact on Illness or Injury [] Angry [] Fearful [] Anxious [] Often cries [] Exhaustion [] Unable to work [] Unable to attend jain [] Unable to walk/stand [] Unable to read [] Unable to drive [] Unable to eat/drink [] Unable to sleep [] Unable to be with family [] Patient intubated [] Other: Summary Time spent with patient
[2022-02-28] MEDS: sodium chloride 0.9% 1,000 ML 50 ML IV (12:46)
[2022-02-28 13:16] LABS: Glucose Point of Care 128 mg/dL (70-110)
--- NOTE | 2022-02-28 15:50 | P.ANESASSM_ITS ---
Pre-Anesthetic Assessment Height/Weight: Height 1.7 m Weight 88.451 kg Temp Pulse Resp BP Pulse Ox 97.6 F 96 18 158/79 93 02/28/22 15:44 02/28/22 15:44 02/28/22 15:44 02/28/22 15:44 02/28/22 15:44 Preop Diagnosis: Left distal femur fracture Operation Date: 02/28/22 17:45 Proposed Procedures p IM Femoral Nail Insertion(Left) - Uriel Simons, Familial anesthetic complications: None Was Beta Lester taken within 24 hours: Yes Was Clonidine taken within 24 hours: N/A Last intake: Intake Last Liquid Date 02/27/22 Last Liquid Time 10:00 Last Solid Date 02/27/22 Last Solid Time 10:00 Social Tobacco and No alcohol Exam alert, oriented x 3 and regular rate & rhythm Airway Submandibular: within normal limits Cervical ROM: Other (Very limited) Mallampati: Class II Dentition: false Pulmonary Chronic Obstructive Pulmonary Disease CV/HEM Hypertension GI Gastroesophageal Reflux Disease Metabolic Diabetes Mellitus and Morbid Ob[place] [facility] [place] Lower Back Pain and Osteoarthritis/DJD Chronic pain/opioid Neuropsych Anxiety and Depression Anesthetic Plan ASA status: 3 Anesthesia: General Medications/Allergies Home Medications Medication Instructions Recorded Confirmed Last Taken Type potassium chloride 20 mEq 20 meq PO QAM PRN 03/15/20 02/27/22 Unknown History tablet,extended release baclofen 20 mg tablet 20 mg PO BID tab 02/01/21 02/27/22 Unknown History amlodipine 10 mg tablet 10 mg PO QAM 03/11/21 02/27/22 Unknown History fenofibrate micronized 200 mg 200 mg PO BEDTIME 03/11/21 02/27/22 11/07/21 History capsule pantoprazole 40 mg tablet,delayed 40 mg PO BID 03/11/21 02/27/22 Unknown History release (Protonix) ondansetron 4 mg disintegrating 4 mg PO Q6H PRN #12 tab 06/07/21 02/27/22 Unknown Rx tablet aspirin 325 mg tablet 325 mg PO DAILY 08/17/21 02/27/22 Unknown History Probiotic 1 cap PO DAILY 11/08/21 02/27/22 Unknown History albuterol sulfate 90 mcg/actuation 2 puff INHALATION Q4H PRN 11/08/21 02/27/22 Unknown History aerosol inhaler atenolol 100 mg tablet 100 mg PO BID 11/08/21 02/27/22 Unknown History cholecalciferol (vitamin D3) 125 125 mcg PO DAILY 11/08/21 02/27/22 Unknown His tory mcg (5,000 unit) tablet (Vitamin D3) fluticasone propionate 50 2 spray INTRANASAL DAILY PRN 11/08/21 02/27/22 Unknown History mcg/actuation nasal spray,suspension gabapentin 400 mg capsule 1,200 mg PO TID 11/08/21 02/27/22 Unknown History ipratropium bromide 17 2 puff INHALATION Q6H 11/08/21 02/27/22 Unknown History mcg/actuation HFA aerosol inhaler (Atrovent HFA) lidocaine-prilocaine 2.5 %-2.5 % 1 applic TOPICAL . DIRECTED 11/08/21 02/27/22 Unknown History topical cream fluconazole 200 mg tablet 200 mg PO DAILY #7 tab 11/11/21 02/27/22 Unknown Rx (Diflucan) buspirone 5 mg tablet 5 mg PO BID tab 01/30/22 02/27/22 Unknown History furosemide 40 mg tablet 40 mg PO BID tab 01/30/22 02/27/22 Unknown History metformin 500 mg tablet 1,000 mg PO BID tab 01/30/22 02/27/22 Unknown History venlafaxine 75 mg capsule,extended 75 mg PO DAILY 30 Days #30 cap 02/13/22 02/27/22 Unknown Rx release 24 hr (Effexor XR) hydrocodone 5 mg-acetaminophen 325 1 tab PO Q8H PRN 5 Days #14 tab 02/26/22 02/27/22 Unknown Rx mg tablet ketorolac 10 mg tablet 10 mg PO TID PRN 5 Days #15 tab 02/26/22 02/27/22 Unknown Rx levofloxacin 500 mg tablet 500 mg PO DAILY #7 tab 02/26/22 02/27/22 Unknown Rx temazepam 15 mg capsule 15 mg PO .qhs PRN 10 Days #10 cap 02/26/22 02/27/22 Unknown Rx MDD 1 Allergies Allergy/AdvReac Type Severity Reaction Status Date / Time adhesive tape Allergy rash Verified 02/27/22 16:33 amitriptyline Allergy Unknown Verified 02/27/22 16:33 nitrofurantoin Allergy ADR-Vomitin Verified 02/27/22 16:33 [From Macrobid] g Sulfa (Sulfonamide Allergy Itch all Verified 02/27/22 16:33 Antibiotics) over Current Medications Generic Name Dose Route Start Last Admin Trade Name Rodq PRN Reason Stop Dose Admin Amlodipine Besylate 10 mg 02/28/22 06:00 02/28/22 05:21 Amlodipine 10 Mg Tablet PO 10 mg QAM RANJIT Administration Aspirin 81 mg 02/28/22 09:00 02/28/22 07:51 Aspirin 81 Mg Ec Tablet PO Not Given DAILY RANJIT Buspirone HCl 5 mg 02/27/22 18:00 02/28/22 09:09 Buspirone 10 Mg Tablet PO 5 mg BID RANJIT Administration Docusate Sodium 100 mg 02/27/22 18:00 02/28/22 09:08 Docusate Sodium 100 Mg Capsule PO 100 mg BID RANJIT Administration Enoxaparin Sodium 40 mg 02/27/22 18:00 02/27/22 18:29 Enoxaparin 40 Mg/0.4 Ml Syringe SUBCUT 40 mg Q24H RANJIT Administration Sodium Chloride 1,000 mls @ 50 mls/hr 02/27/22 17:30 02/28/22 12:46 Sodium Chloride 0.9% IV 50 mls/hr .Q20H RANJIT Administration Insulin Human Lispro 0 unit 02/28/22 08:00 02/28/22 12:39 Insulin Lispro 100 Unit/1 Ml SUBCUT Not Given TIDWM [facility] Protocol Morphine Sulfate 2 mg 02/27/22 17:27 02/28/22 08:37 Morphine 4 Mg/Ml Sdv 1 Ml IVP 2 mg Q2H PRN Administration SEVERE PAIN Morphine Sulfate 4 mg 02/28/22 00:07 02/28/22 12:46 Morphine 4 Mg/Ml Sdv 1 Ml IVP 4 mg Q2H PRN Administration SEVERE PAIN Venlafaxine HCl 75 mg 02/28/22 09:00 02/28/22 09:08 Venlafaxine Er (24hr) 75 Mg Capsule PO 75 mg DAILY RANJIT Administration PFSH Anesthesia Medical History Anemia Cellulitis Cervical post-laminectomy syndrome Appltnb-Xkzml-Poqjk disease-like deformity of foot right Chronic pain Depression with anxiety Diabetes mellitus, type II Diabetic neuropathy associated with type 2 diabetes mellitus Diastolic CHF History of cardioversion history of SVT vs for other arrhythmia History of DVT of lower extremity post-operative Hyperlipidemia Hypertension Lumbar radiculopathy Lung cancer Methamphetamine use Substance abuse Torticollis, acquired Has had good results with Botox in the past Venous stasis ulcer Surgical History History of arthroplasty of left knee (~1976) History of partial hysterectomy Hx of appendectomy Hx of dilation and curettage Hx of neck surgery x 2, posterior laminectomy and cervical fusion with hardware in place, limited ROM neck at baseline Hx of total knee replacement (~2010) Right Hx of tubal ligation Family History Family/Other Hypertension Depression Anxiety Diabetes Father Aneurysm Mother Hypertension Brother Diabetes Sister Diabetes Social History Smoking and tobacco status: never smoked Alcohol intake: never Marital status: History of recent travel: No Additional social history: unknown if patient continues to smoke, documented to smoke previously Data Anesthesia : 02/28/22 05:25 02/28/22 05:25 Short CBC 02/27/22 02/28/22 Range/Units 16:13 05:25 WBC 8.8 9.2 (4.0-10.0) 10^3/uL Hgb 10.0 L 9.8 L (11.5-15.3) g/dL Hct 32.7 L 31.7 L (37.0-47.0) % MCV 96.5 97.8 (81-99) fl Plt Count 319 295 (130-400) 10^3/cmm Neut % (Auto) 64.1 71.6 % Neut # (Auto) 5.61 6.58 (1.8-7.7) 10^3/uL BMP 02/27/22 02/28/22 16:13 05:25 Sodium 138 140 Potassium 4.2 3.8 Chloride 101 102 Carbon Dioxide 30 H 29 BUN 16 8 Creatinine 0.3 L 0.2 L Glucose 123 H 96 Calcium 9.5 9.0 Coags 02/27/22 16:13 PT 13.30 INR 0.98 APTT 33.0 Cardiac Studies: Echocardiogram Limited Views 12/27/20 Echocardiogram Ultrasound 01/01/21
--- NOTE | 2022-02-28 15:58 | PM.PN ---
Subjective Subjective: Patient was seen and examined this morning currently scheduled for orthopedic intervention today. Medications: Medication Review Details: Generic Name Dose Route Start Last Admin Trade Name Freq PRN Reason Stop Dose Admin Amlodipine Besylat e 10 mg 02/28/22 06:00 02/28/22 05:21 Amlodipine 10 Mg Tablet PO 10 mg QAM RANJIT Administration Aspirin 81 mg 02/28/22 09:00 02/28/22 07:51 Aspirin 81 Mg Ec Tablet PO Not Given DAILY RANJIT Buspirone HCl 5 mg 02/27/22 18:00 02/28/22 09:09 Buspirone 10 Mg Tablet PO 5 mg BID RANJIT Administration Docusate Sodium 100 mg 02/27/22 18:00 02/28/22 09:08 Docusate Sodium 100 Mg Capsule PO 100 mg BID RANJIT Administration Enoxaparin Sodium 40 mg 02/27/22 18:00 02/27/22 18:29 Enoxaparin 40 Mg /0.4 Ml Syringe SUBCUT 40 mg Q24H RANJIT Administration Sodium Chloride 1,000 mls @ 50 ml s/hr 02/27/22 17:30 02/28/22 12:46 Sodium Chloride 0.9% IV 50 mls/hr .Q20H RANJIT Administration Insulin Human Lisp ro 0 unit 02/28/22 08:00 02/28/22 12:39 Insulin Lispro 1 00 Unit/1 Ml SUBCUT Not Given TIDWM [facility] Protocol Morphine Sulfate 2 mg 02/27/22 17:27 02/28/22 08:37 Morphine 4 Mg/Ml Sdv 1 Ml IVP 2 mg Q2H PRN Administration SEVERE PAIN Morphine Sulfate 4 mg 02/28/22 00:07 02/28/22 12:46 Morphine 4 Mg/Ml Sdv 1 Ml IVP 4 mg Q2H PRN Administration SEVERE PAIN Venlafaxine HCl 75 mg 02/28/22 09:00 02/28/22 09:08 Venlafaxine Er ( 24hr) 75 Mg Capsul e PO 75 mg DAILY RANJIT Administration Vitals/I&O/Wt Last Vital Signs Temp 97.6 F 02/28/22 15:44 Pulse 96 02/28/22 15:44 Resp 18 02/28/22 15:44 BP 158/79 02/28/22 15:44 Pulse Ox 93 02/28/22 15:44 0402/28/22 02/28/22 06:59 14:59 22:59 Intake Total 914.167 / 914.167 Balance 914.167 / 914.167 Weight last 48 hrs Weight 88.451 kg Physical Exam Const: COMMON NORMALS: patient oriented x3 HENMT: COMMON NORMALS: normocephalic and atraumatic HEAD & SCALP: normocephalic and atraumatic Chest: CHEST: Yes Symmetrical chest wall rise Resp: COMMON NORMALS: clear to auscultation bilaterally EFFORT & INSPECTION: Yes symmetric chest movement AUSCULTATION: clear to auscultation bilaterally Cardio: COMMON NORMALS: regular rate, regular rhythm, S1 normal heart sound present, S2 normal heart sound present, No gallops present (Cardio), No murmurs present (Cardio), No rub (Cardio) and Peripheral pulses 2+ throughout RATE: regular rate RHYTHM: regular rhythm HEART SOUNDS: S1 normal heart sound present and S2 normal heart sound present PERIPHERAL PULSES: Peripheral pulses 2+ throughout GI: COMMON NORMALS: Normal to inspection, nondistended, normoactive bowel sounds present, Soft to palpation, non-tender, No hepatosplenomegaly present and no masses AUSCULTATION: Yes normoactive bowel sounds PALPATION: Yes Soft to palpation and Yes No hepatosplenomegaly present RECTAL EXAM: deferred Extremity: NARRATIVE EXTREMITY EXAM: S/p rt AKA , Neuro: COMMON NORMALS: patient oriented x3 Urinary Catheter Management: Garber: Cath Placed During This Visit: yes Urinary Catheter Date of Insertion: 02/28/22 Urinary Catheter Time of Insertion: 11:30 Data : 02/28/22 05:25 02/28/22 05:25 A&P Assessment and plan (1) Diabetes mellitus, type II: Status: Acute (2) Hypertension: Status: Acute (3) Closed femur fracture: Status: Acute Plan Polina Snyder is a 61 year old female with past medical history of hypertension , diabetes , status post right aka was admitted with chief complaint of Left lower extremity pain, which he experienced after having slipped from her bed at home. Assessment: #Left femur shaft fracture: Pain control Bowel regimen Orthopedic on board #Diabetes: SSI Carb consistent diet Monitor fingerstick glucose #Hypertension: 100 mg p.o. twice daily #CODE STATUS: Full code #DVT prophylaxis on Lovenox Attestations Medical Necessity Statement*: Patient is in hospital for orthopedic intervention. Time Spent in Patient Care: 16 - 35 minutes Coding Level of Care Code Acute Instrument Assembler for g Fwd Exam Detailed Diagnoses Diabetes mellitus, type II E11.9 Hypertension I10 Closed femur fracture S72.90XA
[2022-02-28] MEDS: sodium chloride 0.9% 1,000 ML 30 ML IV (16:11)
--- NOTE | 2022-02-28 16:34 | W.PM.OPSUD ---
Surgery/Procedure H&P Update DATE OF PROCEDURE: February 28, 2022 DATE H&P PERFORMED: 02/27/22 H&P UPDATE INFORMATION: I have reviewed H&P completed within last 30 days, I have examined patient prior to procedure and No changes to prior documentation PREOP DIAGNOSIS: Left distal femur fracture PLANNED PROCEDURE: Operation Date: 02/28/22 17:45 Proposed Procedures p IM Femoral Nail Insertion(Left) - Uriel Simons DO
--- NOTE | 2022-02-28 18:28 | XR_ITS ---
WS: [id number] Left femur and thigh, C-arm fluoroscopy, 02/28/2022 Clinical Data: OR PICS Comparison: None. Findings: Insertion of a long intramedullary radha fixed with 2 transverse screws distally in the left femur. XR/XR femur LT 1V [id number] Impression: Internal fixation of distal left femoral fracture.
--- NOTE | 2022-02-28 18:46 | ANE.PACU2 ---
Inpatient post-anesthesia follow up: Vital signs: Temperature 97.4 F Pulse Rate 87 Respiratory Rate 13 Blood Pressure 120/70 Pulse Oximetry 91 Oxygen Delivery Me thod Nasal Cannula Oxygen Flow Rate 4 Fraction of Inspir ed Oxygen Hydration adequate: Yes Nausea and vomiting: No Mental status: Baseline
--- NOTE | 2022-02-28 18:49 | P.OP_ITS ---
Operative Report Date of procedure: February 28, 2022 Pre-op diagnosis: Preop Diagnosis Left distal femur fracture Post-op diagnosis: same Procedure done: Let IM nail for distal femur fracture Surgeon: Uriel Simons Food Production Machine Operator: Leighton Talbert Food Production Machine Operator: The surgical services director, Leighton Talbert, PABLO was needed for his expertise with fracture care. He was important and necessary throughout the procedure to complete in a safe and timely manner. He assisted with patient positioning prepping and draping tissue retraction suctioning of the operative field protection of the critical structures and tissue closure Estimated blood loss (mL): 10 Procedure: IM nail Left distal femur fracture Patient was brought to the operative suite. After undergoing anesthesia was placed onto a table. All areas impingement were well-padded. Patient was then prepped and draped normal sterile fashion. A trial was placed under the left leg. The x-ray was brought in and since he was made laterally in order to facilitate getting to the fracture. A reduction clamp was then placed on the fracture to hold it reduced. And then attention was brought to the starting incision which was over the anterior aspect of the knee. Just medial to the patella tendon. Starting pin was inserted opening reamer was inserted into the distal aspect of the femur. A guidewire was placed. The nail length was measured. The canal was then reamed to a 11-1/2. A size 10 [place] nail that was 360 mm long was inserted. 2 screws were placed distally through the nail. 1 screws placed proximally. AP lateral fluoroscopy ensured that the fracture and hardware improved positions. Patient had severe osteoarthritis of her knee and was actually contracted and cannot fully extend her knee. Wounds were irrigated and closed with Vicryl and dilcia. Sterile dressings applied and patient was transferred to the PACU in stable condition.
[2022-02-28 21:02] LABS: Glucose Point of Care 113 mg/dL (70-110)
[2022-02-28] MEDS: oxyCODONE-APAP 5-325 mg Tablet 1 TAB PO (23:01)
[2022-03-01] VITALS (15 sets, daily range): BP systolic 132–167; BP diastolic 71–91; PULSE 68–101; RESP 16–19; TEMP 36.7–37; O2SAT 90–96
[2022-03-01] MEDS: morphine 4 mg/mL SDV 1 mL IVP ×4 (01:54→16:43)
[2022-03-01] MEDS: oxyCODONE-APAP 5-325 mg Tablet 1 TAB PO ×3 (03:14→21:35)
[2022-03-01] MEDS: amlodipine 10 mg Tablet PO (06:30)
[2022-03-01 06:39] LABS: Basophils % 0.2 %; Hemoglobin 9.9 g/dL (11.5-15.3); Lymphocytes # 0.9 10^3/uL (0.8-4.8); Lymphocytes % 7.4 %; Mean Corpuscular HGB Conc 30.9 g/dL (30.0-36.0); Mean Corpuscular Hemoglobin 30.1 pg (28.0-34.0); Mean Corpuscular Volume 97.3 fl (81-99); Mean Platelet Volume 10.1 fL (7.4-10.4); Monocytes # 0.6 10^3/uL (0.2-0.9); Neutrophils # 10.81 10^3/uL (1.8-7.7); Neutrophils % 86.6 %; Nucleated Red Blood Cells % 0 %; Platelet Count 350 10^3/cmm (130-400); Red Blood Count 3.29 10^6/uL (4.1-5.3); Red Cell Distribution Width 15.5 % (12.1-15.1); White Blood Count 12.5 10^3/uL (4.0-10.0)
[2022-03-01 07:06] LABS: Anion Gap 16.9 (5-19); Blood Urea Nitrogen 7 mg/dL (8-23); Carbon Dioxide 25 mmol/L (22-29); Chloride 100 mmol/L (98-107); Glomerular Filtration Rate 361.1 mL/min (90-130); Glucose 164 mg/dL (65-115); Osmolality Calculated 288 mOsm/kg (285-295); Potassium 3.9 mmol/L (3.5-5.1); Sodium 138 mmol/L (136-145)
[2022-03-01] MEDS: docusate sodium 100 mg Capsule PO (08:02)
[2022-03-01] MEDS: BuSPIRONE 10 mg Tablet 5 MG PO ×2 (08:02→16:43)
[2022-03-01] MEDS: aspirin 81 mg EC Tablet PO (08:02)
[2022-03-01] MEDS: venlafaxine ER (24HR) 75 mg Capsule PO (08:02)
--- NOTE | 2022-03-01 08:12 | PM.PN ---
Subjective Subjective: POD 1 Patient resting comfortably. Complains of moderate left leg pain. Denies any shortness of breath or chest pain. Vitals/I&O/Wt Last Vital Signs Temp 98.2 F 03/01/22 07:43 Pulse 83 03/01/22 07:43 Resp 18 03/01/22 07:43 BP 132/74 03/01/22 07:43 Pulse Ox 95 03/01/22 07:43 02/28/22 03/01/22 03/01/22 22:59 06:59 14:59 Intake Total 910 / 1824.167 60 / 1884.167 Output Total 150 / 150 Balance 760 / 1674.167 60 / 1734.167 Weight last 48 hrs Weight 195 lb Physical Exam Narrative: Patient is alert oriented. Dressings on the left lower extremity appear to be clean and dry. The wound on her lower leg continues to be clean and dry as well. Skin is warm feet are warm. Urinary Catheter Management: Garber: Cath Placed During This Visit: yes Reason for Continuing Indwelling Catheter: Perioperative Use in Selected Surgeries Urinary Catheter Date of Insertion: 02/28/22 Urinary Catheter Time of Insertion: 11:30 Data : 03/01/22 06:02 03/01/22 06:02 A&P Assessment and plan (1) Closed fracture of left distal femur: Discussed with the patient the intramedullary nailing of the left femur with well. Given the wounds on her mid tibial region from which Dr. Champagne has been managing at the wound clinic I told the patient we will make him aware of her hospitalization. Continue to work with physical therapy. Continue to work with incentive spirometry for pulmonary toilet. We will get nursing home social worker involved for placement. We will see her in the office in 2 weeks time for staple removal. Status: Acute Attestations Medical Necessity Statement*: defer to medical team Coding Level of Care Code Acute Bobbin Washer for Trent Fwbasilia Diagnoses Closed fracture of left distal femur S72.402A
--- NOTE | 2022-03-01 10:29 | PC.CHAP ---
Pastoral Care Encounter/Spiritual Assessment Type of Contact [] Declined career consultant visit [] Patient/Family/Request visit [] Outpatient visit [] Follow-up visit [] Physician referral [] Code/Alert [x] Routine visit [] Staff referral [] Actively dying [] Patient sleeping [] Family support [] [] Out of room [] Palliative care [] [x] Receiving care in room [] Pre-surgical visit [] Trauma [] Long length of stay [] ICU visit [] Other: Relational/Emotional Strength [x] Patient feels connected with others/family/visitors/staff [] Distress [] Loneliness/isolation [] Abandonment Spirituality of Patient [x] Person of Amee [] Attends Sikh of their Amee [x] Believes in Prayer [] Reads Bible or Spiritism materials [] There are Spiritual issues to be addressed Shoe Stitcher Interventions [x] Prayer [x] Active listening [x] Non-anxious presence [x] Spiritual/emotional support [] Crisis/trauma care [x] Spiritual counseling [] Bereavement support [] Provided bereavement packet [] Provided Bible/devotional materials [] Provided toy/stuffed animal, coloring book to patient or family member [] Provided Communion [] Anointing/[place] [] Salvation [x] Completed spiritual assessment [] Other: Impact on Illness or Injury [] Angry [] Fearful [x] Anxious [] Often cries [] Exhaustion [] Unable to work [] Unable to attend christianity [] Unable to walk/stand [] Unable to read [] Unable to drive [] Unable to eat/drink [] Unable to sleep [] Unable to be with family [] Patient intubated [] Other: Summary had surgery had some bleeding waiting to see if bleeding is stope has some negative feelins is going home +1 friend Time spent with patient 10 mins
[2022-03-01 12:57] LABS: Glucose Point of Care 162 mg/dL (70-110)
--- NOTE | 2022-03-01 14:17 | P.PN_ITS ---
Subjective Subjective: Patient was seen and examined this morning s/p: Lt IM nail for distal femur fracture. Has done well postprocedure. Medications: Medication Review Details: Generic Name Dose Route Start Last Admin Trade Name Freq PRN Reason Stop Dose Admin Amlodipine Besylat e 10 mg 02/28/22 06:00 02/28/22 05:21 Amlodipine 10 Mg Tablet PO 10 mg QAM RANJIT Administration Aspirin 81 mg 02/28/22 09:00 02/28/22 07:51 Aspirin 81 Mg Ec Tablet PO Not Given DAILY RANJIT Buspirone HCl 5 mg 02/27/22 18:00 02/28/22 09:09 Buspirone 10 Mg Tablet PO 5 mg BID RANJIT Administration Docusate Sodium 100 mg 02/27/22 18:00 02/28/22 09:08 Docusate Sodium 100 Mg Capsule PO 100 mg BID RANJIT Administration Enoxaparin Sodium 40 mg 02/27/22 18:00 02/27/22 18:29 Enoxaparin 40 Mg /0.4 Ml Syringe SUBCUT 40 mg Q24H RANJIT Administration Sodium Chloride 1,000 mls @ 50 ml s/hr 02/27/22 17:30 02/28/22 12:46 Sodium Chloride 0.9% IV 50 mls/hr .Q20H RANJIT Administration Insulin Human Lisp ro 0 unit 02/28/22 08:00 02/28/22 12:39 Insulin Lispro 1 00 Unit/1 Ml SUBCUT Not Given TIDWM [facility] Protocol Morphine Sulfate 2 mg 02/27/22 17:27 02/28/22 08:37 Morphine 4 Mg/Ml Sdv 1 Ml IVP 2 mg Q2H PRN Administration SEVERE PAIN Morphine Sulfate 4 mg 02/28/22 00:07 02/28/22 12:46 Morphine 4 Mg/Ml Sdv 1 Ml IVP 4 mg Q2H PRN Administration SEVERE PAIN Venlafaxine HCl 75 mg 02/28/22 09:00 02/28/22 09:08 Venlafaxine Er ( 24hr) 75 Mg Capsul e PO 75 mg DAILY RANJIT Administration Vitals/I&O/Wt Last Vital Signs Temp 98.2 F 03/01/22 07:43 Pulse 68 03/01/22 11:55 Resp 18 03/01/22 12:46 BP 132/71 03/01/22 11:55 Pulse Ox 94 03/01/22 11:55 02/28/22 03/01/22 03/01/22 22:59 06:59 14:59 Intake Total 910 / 1824.167 60 / 1884.167 540 / 540 Output Total 150 / 150 Balance 760 / 1674.167 60 / 1734.167 540 / 540 Weight last 48 hrs Weight 88.451 kg Physical Exam Const: COMMON NORMALS: patient oriented x3 HENMT: COMMON NORMALS: normocephalic and atraumatic HEAD & SCALP: normocephalic and atraumatic Chest: CHEST: Yes Symmetrical chest wall rise Resp: COMMON NORMALS: clear to auscultation bilaterally EFFORT & INSPECTION: Yes symmetric chest movement AUSCULTATION: clear to auscultation bilaterally Cardio: COMMON NORMALS: regular rate, regular rhythm, S1 normal heart sound present, S2 normal heart sound present, No gallops present (Cardio), No murmurs present (Cardio), No rub (Cardio) and Peripheral pulses 2+ throughout RATE: regular rate RHYTHM: regular rhythm HEART SOUNDS: S1 normal heart sound present and S2 normal heart sound present PERIPHERAL PULSES: Peripheral pulses 2+ throughout GI: COMMON NORMALS: Normal to inspection, nondistended, normoactive bowel sounds present, Soft to palpation, non-tender, No hepatosplenomegaly present and no masses AUSCULTATION: Yes normoactive bowel sounds PALPATION: Yes Soft to palpation and Yes No hepatosplenomegaly present RECTAL EXAM: deferred Extremity: NARRATIVE EXTREMITY EXAM: S/p rt AKA , Neuro: COMMON NORMALS: patient oriented x3 Urinary Catheter Management: Garber: Cath Placed During This Visit: yes Reason for Continuing Indwelling Catheter: Perioperative Use in Selected Surgeries Urinary Catheter Date of Insertion: 02/28/22 Urinary Catheter Time of Insertion: 11:30 Data : 03/01/22 06:02 03/01/22 06:02 A&P Assessment and plan (1) Diabetes mellitus, type II: Status: Acute (2) Hypertension: Status: Acute (3) Closed femur fracture: Status: Acute Plan Polina Snyder is a 61 year old female with past medical history of hypertension , diabetes , status post right aka was admitted with chief complaint of Left lower extremity pain, which he experienced after having slipped from her bed at home. Assessment: #Left femur shaft fracture: Pain control Bowel regimen Orthopedic on board #Leukocytosis: Likely reactive Blood culture Lactic acid Procalcitonin We will hold on antibiotics. #Diabetes: SSI Carb consistent diet Monitor fingerstick glucose #Hypertension: 100 mg p.o. twice daily #CODE STATUS: Full code #DVT prophylaxis on Lovenox Attestations Medical Necessity Statement*: Patient is still in hospital for management of left femur shaft fracture postop day 1. Time Spent in Patient Care: 16 - 35 minutes Coding Level of Care Code Acute Manufacturing Engineering Technician for [facility] Fwd Exam Detailed Diagnoses Diabetes mellitus, type II E11.9 Hypertension I10 Closed femur fracture S72.90XA
--- NOTE | 2022-03-01 14:42 | PC.NURSE ---
records management analyst, Farhana, attempted to call Dr. Juventino martining ulcers to patients left leg that he was addressing prior to pt being admitted. No response at this time.
[2022-03-01] MEDS: enoxaparin 40 mg/0.4 mL Syringe SUBCUT (16:42)
[2022-03-01] MEDS: ondansetron 2 mg/ML SDV 2 mL 4 MG IVP (16:43)
[2022-03-01 17:01] LABS: Glucose Point of Care 139 mg/dL (70-110)
[2022-03-01 21:11] LABS: Glucose Point of Care 141 mg/dL (70-110)
[2022-03-01] MEDS: acetaminophen 325 mg Tablet 650 MG PO (22:53)
[2022-03-01] MEDS: temazepam 15 mg Capsule PO (22:53)
[2022-03-02] VITALS (10 sets, daily range): BP systolic 130–154; BP diastolic 60–86; PULSE 96–101; RESP 16–17; TEMP 36.7–37; O2SAT 86–94
[2022-03-02] MEDS: morphine 4 mg/mL SDV 1 mL IVP (02:19)
[2022-03-02 02:57] LABS: Basophils % 0.3 %; Eosinophils # 0.2 10^3/uL (0.0-0.8); Eosinophils % 2.3 %; Hematocrit 30.9 % (37.0-47.0); Hemoglobin 9.3 g/dL (11.5-15.3); Lymphocytes # 1.5 10^3/uL (0.8-4.8); Lymphocytes % 15.3 %; Mean Corpuscular HGB Conc 30.1 g/dL (30.0-36.0); Mean Corpuscular Hemoglobin 28.7 pg (28.0-34.0); Mean Corpuscular Volume 95.4 fl (81-99); Mean Platelet Volume 9.9 fL (7.4-10.4); Monocytes # 0.8 10^3/uL (0.2-0.9); Monocytes % 8.1 %; Neutrophils # 6.94 10^3/uL (1.8-7.7); Neutrophils % 73.2 %; Nucleated Red Blood Cells % 0.2 %; Platelet Count 334 10^3/cmm (130-400); Red Blood Count 3.24 10^6/uL (4.1-5.3); Red Cell Distribution Width 15.7 % (12.1-15.1); White Blood Count 9.5 10^3/uL (4.0-10.0)
[2022-03-02 03:14] LABS: Lactic Sepsis W/Reflex 0.8 mmol/L (0.5-2.2)
[2022-03-02 03:18] LABS: Anion Gap 14.4 (5-19); Blood Urea Nitrogen 8 mg/dL (8-23); Carbon Dioxide 28 mmol/L (22-29); Chloride 101 mmol/L (98-107); Glomerular Filtration Rate 361.1 mL/min (90-130); Glucose 118 mg/dL (65-115); Osmolality Calculated 289 mOsm/kg (285-295); Potassium 3.4 mmol/L (3.5-5.1); Sodium 140 mmol/L (136-145)
[2022-03-02 03:26] LABS: Procalcitonin 0.04 ng/mL (0-0.5)
[2022-03-02] MEDS: oxyCODONE-APAP 5-325 mg Tablet 1 TAB PO ×3 (03:55→13:39)
[2022-03-02] MEDS: amlodipine 10 mg Tablet PO (05:14)
[2022-03-02 06:22] LABS: Glucose Point of Care 96 mg/dL (70-110)
[2022-03-02] MEDS: aspirin 81 mg EC Tablet PO (07:37)
[2022-03-02] MEDS: BuSPIRONE 10 mg Tablet 5 MG PO (07:37)
[2022-03-02] MEDS: venlafaxine ER (24HR) 75 mg Capsule PO (07:37)
[2022-03-02] MEDS: docusate sodium 100 mg Capsule PO (07:37)
--- NOTE | 2022-03-02 08:42 | PM.PN ---
Subjective Subjective: POD 2 Patient resting comfortably. She is wanting to go home with home health care. Vitals/I&O/Wt Last Vital Signs Temp 98.6 F 03/02/22 07:31 Pulse 100 03/02/22 08:21 Resp 17 03/02/22 08:21 BP 149/80 03/02/22 07:31 Pulse Ox 94 03/02/22 08:21 03/01/22 03/02/22 03/02/22 22:59 06:59 14:59 Intake Total 300 / 840 Output Total 1600 / 1600 1300 / 2900 Balance -1300 / -760 -1300 / -2060 Physical Exam Narrative: Patient is alert oriented.? Dressings on the left lower extremity appear to be clean and dry.? The wound on her lower leg continues to be clean and dry as well.? Skin is warm feet are warm. Urinary Catheter Management: Garber: Cath Placed During This Visit: yes Reason for Continuing Indwelling Catheter: Required Immobilization for Trauma or Surgery or Anesthesia Urinary Catheter Date of Insertion: 02/28/22 Urinary Catheter Time of Insertion: 11:30 Data : 03/02/22 02:01 03/02/22 02:01 Micro: Microbiology 03/02/22 01:59 Blood Culture - Preliminary Blood SPECIMEN COLLECTED 03/02/22 02:01 Blood Culture - Preliminary Blood SPECIMEN COLLECTED A&P Assessment and plan (1) Closed fracture of left distal femur: Discussed with the nurse for dressing change to the left femur incisions. Discussed with Dr. Champagne regarding the wound care to the mid tibia. Okay from orthopedic standpoint to discharge home with home health care and other care from the family as long as she is medically stable and physical therapy agrees. We will see her back in the office in 2 weeks time for staple removal. Continue incentive spirometry for pulmonary toilet. Status: Acute (2) Degenerative joint disease of left knee: Status: Acute Attestations Medical Necessity Statement*: defer to medical team Coding Level of Care Code Acute [place] Attendant for Trent Crews Diagnoses Degenerative joint disease of left knee M17.12 Closed fracture of left distal femur S72.402A
--- NOTE | 2022-03-02 09:35 | PC.SOCIAL ---
IMM update IMM updated with patient. Verbalized an understanding. Copy Pg 2 provided. Initialled, dated, timed, and placed in chart.
--- NOTE | 2022-03-02 10:27 | P.DS_ITS ---
Discharge Providers Date of Admission: 02/27/22 15:05 Date of Discharge: March 02, 2022 Attending Provider at Admission: Michel Pelletier MD Attending Provider at Discharge: Michel Pelletier MD Primary Care Provider: Wilner Hdez DO Diagnoses at Discharge Discharge Diagnosis (1) Closed fracture of left distal femur: Status: Acute (2) Degenerative joint disease of left knee: Status: Acute Reason for Visit Reason for Visit: sent to ER per X-Ray left leg fracture Hospital Course Hospital Course HPI: 61 year old female with past medical history of hypertension , diabetes , status post right aka was admitted with chief complaint of Left lower extremity pain, which he experienced after having slipped from her bed at home.Upon arrival in the ER she was worked up for above-mentioned complaint. Pertinent imaging studies: XR knee LT?: Transverse subluxed fracture distal shaft of the femur. CT femur left without contrast: Acute, comminuted oblique fracture of the distal metaphysis of the left femur.There is posterior displacement of approximately 1/2 shaft width and mild impaction of the distal fracture fragment. Hospital course: She was admitted for the management of : Left femur shaft fracture: s/p: Lt IM nail. She was also managed for her other medical conditions diabetes hypertension. Patient responded well to medical management and was discharged in stable condition to home. Continue to follow orthopedic as an outpatient. Physical Exam Const: COMMON NORMALS: patient oriented x3 HENMT: COMMON NORMALS: normocephalic and atraumatic HEAD & SCALP: normocephalic and atraumatic Chest: CHEST: Yes Symmetrical chest wall rise Resp: COMMON NORMALS: clear to auscultation bilaterally EFFORT & INSPECTION: Yes symmetric chest movement AUSCULTATION: clear to auscultation bilaterally Cardio: COMMON NORMALS: regular rate, regular rhythm, S1 normal heart sound present, S2 normal heart sound present, No gallops present (Cardio), No murmurs present (Cardio), No rub (Cardio) and Peripheral pulses 2+ throughout RATE: regular rate RHYTHM: regular rhythm HEART SOUNDS: S1 normal heart sound present and S2 normal heart sound present PERIPHERAL PULSES: Peripheral pulses 2+ throughout GI: COMMON NORMALS: Normal to inspection, nondistended, normoactive bowel sounds present, Soft to palpation, non-tender, No hepatosplenomegaly present and no masses AUSCULTATION: Yes normoactive bowel sounds PALPATION: Yes Soft to palpation and Yes No hepatosplenomegaly present RECTAL EXAM: deferred Extremity: NARRATIVE EXTREMITY EXAM: S/p rt AKA , Neuro: COMMON NORMALS: patient oriented x3 Urinary Catheter Management: Garber: Cath Placed During This Visit: yes Reason for Continuing Indwelling Catheter: Required Immobilization for Trauma or Surgery or Anesthesia Urinary Catheter Date of Insertion: 02/28/22 Urinary Catheter Time of Insertion: 11:30 Discharge Data Studies Completed and Pending Completed Studies During Hospitalization Category Date Time Status CT femur LT wo con* [id number] Urgent Cat Scan 02/27/22 14:59 Completed XR femur LT 1V [id number] Routine Exams 02/28/22 18:28 Completed Pending at discharge Category Date Time Status Blood Culture AM LABS Lab 03/02/22 01:59 Results Radiology Impressions Femur CT 02/27/22 14:59 IMPRESSION: 1. Acute, comminuted oblique fracture of the distal metaphysis of the left femur. There is posterior displacement of approximately 1/2 shaft width and mild impaction of the distal fracture fragment. Numerous small butterfly fragments are also seen at the fracture site. 2. Extensive subcutaneous edema in the visualized gluteal subcutaneous tissues and extending inferiorly along the left thigh. 3. Bilobed fluid collection with the fat fluid level suspicious for hematoma in the distal left thigh the pleural. There is more diffuse moderate soft tissue hemorrhage in the both the anterior and posterior compartments of the distal left thigh around the fracture. 4. Old, ununited, minimally displaced fracture of the medial tibial plateau with mild, 4 mm depression of the tibial fracture. 5. Marked tricompartment degenerative changes at the left knee.There is a fabella in the soft tissues posterior to the knee. 6. There is mild posterior subluxation of the tibia with respect to the femur, it is uncertain whether this could be due to acute ligamentous injury or if findings represent chronic ligamentous laxity. 7. Multiple small calcifications are seen within the suprapatellar recess of the left knee joint, findings could represent intra-articular loose bodies or possibly synovial osteochondromatosis. 8. Marked degenerative changes at the left hip. 9. Incidental/nonacute findings are listed in the report. Femur X-Ray 02/28/22 18:28 Impression: Internal fixation of distal left femoral fracture. Laboratory Results WBC 9.5 10^3/uL (4.0-10.0) 03/02/22 02:01 RBC 3.24 10^6/uL (4.1-5.3) L 03/02/22 02:01 Hgb 9.3 g/dL (11.5-15.3) L 03/02/22 02:01 Hct 30.9 % (37.0-47.0) L 03/02/22 02:01 MCV 95.4 fl (81-99) 03/02/22 02:01 MCH 28.7 pg (28.0-34.0) 03/02/22 02:01 MCHC 30.1 g/dL (30.0-36.0) 03/02/22 02:01 RDW 15.7 % (12.1-15.1) H 03/02/22 02:01 Plt Count 334 10^3/cmm (130-400) 03/02/22 02:01 MPV 9.9 fL (7.4-10.4) 03/02/22 02:01 Neut % (Auto) 73.2 % 03/02/22 02:01 Lymph % (Auto) 15.3 % 03/02/22 02:01 [place] % (Auto) 8.1 % 03/02/22 02:01 Eos % (Auto) 2.3 % 03/02/22 02:01 Baso % (Auto) 0.3 % 03/02/22 02:01 Neut # (Auto) 6.94 10^3/uL (1.8-7.7) 03/02/22 02:01 Lymph # (Auto) 1.5 10^3/uL (0.8-4.8) 03/02/22 02:01 [place] # (Auto) 0.8 10^3/uL (0.2-0.9) 03/02/22 02:01 Eos # (Auto) 0.2 10^3/uL (0.0-0.8) 03/02/22 02:01 Baso # (Auto) 0.0 10^3/uL (0.0-0.1) 03/02/22 02:01 Nucleated RBC % (auto) 0.2 % 03/02/22 02:01 Nucleated RBCs # 0.0 /100WBC 03/02/22 02:01 PT 13.30 SECONDS (12.1-14.9) 02/27/22 16:13 INR 0.98 (0.8-1.2) 02/27/22 16:13 APTT 33.0 SECONDS (23.9-36.7) 02/27/22 16:13 Sodium 140 mmol/L (136-145) 03/02/22 02:01 Potassium 3.4 mmol/L (3.5-5.1) L 03/02/22 02:01 Chloride 101 mmol/L (98-107) 03/02/22 02:01 Carbon Dioxide 28 mmol/L (22-29) 03/02/22 02:01 Anion Gap 14.4 (5-19) 03/02/22 02:01 BUN 8 mg/dL (8-23) 03/02/22 02:01 Creatinine 0.2 mg/dL (0.5-0.9) L 03/02/22 02:01 GFR Calculation 361.1 mL/min (90-130) H 03/02/22 02:01 Glucose 118 mg/dL (65-115) H 03/02/22 02:01 POC Glucose 96 mg/dL (70-110) 03/02/22 06:06 Calculated Osmolality 289 mOsm/kg (285-295) 03/02/22 02:01 Lactic Acid 0.8 mmol/L (0.5-2.2) 03/02/22 02:01 Calcium 9.0 mg/dL (8.5-10.5) 03/02/22 02:01 Procalcitonin 0.04 ng/mL (0-0.5) 03/02/22 02:01 Vitals Last Vital Signs Temp 98.6 F 03/02/22 07:31 Pulse 100 03/02/22 08:21 Resp 16 03/02/22 09:17 BP 149/80 03/02/22 07:31 Pulse Ox 94 03/02/22 08:21 Discharge Plan Discharge Patient Disposition: Home Condition: Stable Prescriptions: New oxycodone 5 mg tablet 5 - 10 mg PO DAILY PRN (Reason: pain) 7 Days Qty: 40 0RF Continued potassium chloride 20 mEq tablet extended release 20 meq PO QAM PRN (Reason: rx filled 07/26/21 90d/s-pts states takes pr) 0RF aspirin 325 mg tablet 325 mg PO DAILY 0RF baclofen 20 mg tablet 20 mg PO BID 0RF venlafaxine [Effexor XR] 75 mg capsule,extended release 24hr 75 mg PO DAILY 30 Days Qty: 30 2RF Rx Instructions: Start Effexor on day that you stop the Cymbalta. ondansetron 4 mg tablet,disintegrating 4 mg PO Q6H PRN (Reason: nausea and vomiting) Qty: 12 0RF Hold Instructions: Home Medication placed on hold at Doctor's office Rx Instructions: 340b please levofloxacin 500 mg tablet 500 mg PO DAILY Qty: 7 0RF temazepam 15 mg capsule 15 mg PO .qhs MDD 1 PRN (Reason: sleep) 10 Days Qty: 10 0RF Rx Instructions: 1 qhs prn insomnia ketorolac 10 mg tablet 10 mg PO TID PRN (Reason: pain) 5 Days Qty: 15 0RF hydrocodone-acetaminophen 5-325 mg tablet 1 tab PO Q8H PRN (Reason: pain) 5 Days Qty: 14 0RF fenofibrate micronized 200 mg capsule 200 mg PO BEDTIME 0RF amlodipine 10 mg tablet 10 mg PO QAM 0RF pantoprazole [Protonix] 40 mg Tablet,Delayed Release (Dr/Ec) 40 mg PO BID 0RF buspirone 5 mg tablet 5 mg PO BID 0RF atenolol 100 mg tablet 100 mg PO BID 0RF gabapentin 400 mg capsule 1,200 mg PO TID 0RF lidocaine-prilocaine 2.5-2.5 % cream 1 applic topical . DIRECTED 0RF albuterol sulfate 90 mcg/actuation HFA aerosol inhaler 2 puff INHALATION Q4H PRN (Reason: Shortness Of Breath) 0RF fluticasone propionate 50 mcg/actuation spray,suspension 2 spray INTRANASAL DAILY PRN (Reason: Allergy Symptoms) 0RF Atrovent HFA 17 mcg/actuation HFA aerosol inhaler 2 puff INHALATION Q6H 0RF cholecalciferol (vitamin D3) [Vitamin D3] 125 mcg (5,000 unit) Tablet 125 mcg PO DAILY 0RF Probiotic 1 cap PO DAILY 0RF fluconazole [Diflucan] 200 mg tablet 200 mg PO DAILY Qty: 7 0RF furosemide 40 mg tablet 40 mg PO BID 0RF metformin 500 mg tablet 1,000 mg PO BID 0RF Discharge Orders: Discharge Order (Routine); Ordered 03/02/22 Ordered By: Michel Pelletier Referrals: Wilner Hdez, [Primary Care Provider] - 03/08/22 9:15 am Discharge Diet: Advance as tolerated Patient Instructions: Opioid Safety Activity Restrictions/Additional Instructions: You are being discharged from the hospital today during which time you have been under the care of Dr Simons. You had a Left IM nail for Distal Femur Fracture. You were treated for this injury with [Im Nail]. You may resume you normal diet (including any special diets as directed by your primary doctor) as well as your home medications. You should follow up with you primary doctor if you have any questions regarding medication you took prior to your stay in the hospital. You may take your pain medication as prescribed. After the first few days, take your pain medication as needed. Do not drive or drink alcohol while taking your pain medication. Your injury may increase your risk of developing a blood clot,or DVT, in your arm or leg. This could potentially dislodge and travel to your lungs and become a life threatening condition called apulmonary embolus,or PE. You have been prescribed [] to be taken to prevent this. Frequent movement of the [LLE] will also help prevent this from occurring. If you develop any new or worsening cough, chestpain, bloody sputum or shortness of breath, call 911 or go to the EmergencyRoom. Always keep your surgical incision/dressing clean and dry. If you experience increasing pain at your incision site, redness, swelling, increasing discharge, foul odors, or fevers (greater than 100.4), night sweats or chills you should call the office at the above number. If you feel this is an emergency you should be evaluated in the Emergency Department of a nearby hospital. Orthopedic Patient Instructions Summary: Weight Bearing: [NWB LLE] Activity: [Ice/Elevation]. Diet: [as tolerated]. Splint Care: Keep splint clean and dry. Cover with a plastic bag for bathing. Wound Care: Keep dressing clean and dry. Anticoagulation: [Lovenox] Pain Medication: Take only as needed. Ice, rest and elevation will be of great benefit. Please plan to follow-up [facility] [[facility]rist[facility]] in [2] weeks. You will need to call the clinic [phone] to schedule this visit. Thank you far allowing me to participate in your care. Do not hesitate to call the office with any questions or concerns. Discharge Attestations Time Spent in Discharge Care*: less than 30 min Status at Discharge: Cognitive status at discharge: cognitively intact , Behavioral status at discharge: cooperative , Quality Metrics Clinical Quality Measures [ No reported AMI, CVA or VTE this stay] Coding Level of Care Code Acute [facility] note Diagnoses Closed fracture of left distal femur S72.402A Degenerative joint disease of left knee M17.12
[2022-03-02 11:44] LABS: Glucose Point of Care 184 mg/dL (70-110)
[2022-03-02] MEDS: insulin lispro 100 unit/1 mL SUBCUT (12:45)
[2022-03-02] MEDS: potassium chloride ER 20 mEq Tablet 40 MEQ PO (12:58)
== END 2022-03-02 15:10 | disposition home or self-care (01) | DRG 482 ==
LOC: ER 15:46 → MEDSURG 16:08
PROVIDERS: Orthopaedic Surgery; Admitting Provider Internal Medicine; Emergency Provider Emergency Medicine; PCP Family Medicine; Visit Provider Internal Medicine
PROC: 0QSC06Z Reposition Left Lower Femur with Intramedullary Internal Fixation Device, Open Approach (ICD-10-PCS; principal; 2022-02-28 17:35)
DX: S72.402A Unspecified fracture of lower end of left femur, initial encounter for closed fracture (principal); W06.XXXA Fall from bed, initial encounter; I50.9 Heart failure, unspecified; I11.0 Hypertensive heart disease with heart failure; E11.9 Type 2 diabetes mellitus without complications; Z89.511 Acquired absence of right leg below knee; Z86.718 Personal history of other venous thrombosis and embolism; Z96.652 Presence of left artificial knee joint; Z98.1 Arthrodesis status; M17.12 Unilateral primary osteoarthritis, left knee; Z79.891 Long term (current) use of opiate analgesic; Z79.84 Long term (current) use of oral hypoglycemic drugs
CPT/HCPCS: 36415; 36416; 51702; 73551; 73560; 73700; 76000; 80048; 82962; 83605; 84145; 85025; 85610; 85730; 87040; 93005; 94664; 96372; 97161; 97167; 97530; 97535; 97597; 99285; C1713; J0330; J0690; J1100; J1170; J1650; J1815; J2270; J2405; J2704; J3010; J3490; J7030

== ENCOUNTER → 2022-03-07 13:19 | Outpatient (BNVA) | payer MEDICARE, MEDICAID, SELFPAY | PROVIDERS: PCP Family Medicine; Visit Provider Nurse Practitioner Family | DX: E11.622 Type 2 diabetes mellitus with other skin ulcer (principal); L97.822 Non-pressure chronic ulcer of other part of left lower leg with fat layer exposed; I96 Gangrene, not elsewhere classified; E11.621 Type 2 diabetes mellitus with foot ulcer; L97.521 Non-pressure chronic ulcer of other part of left foot limited to breakdown of skin; L97.821 Non-pressure chronic ulcer of other part of left lower leg limited to breakdown of skin; F17.210 Nicotine dependence, cigarettes, uncomplicated | CPT/HCPCS: 11042; A6252 ==

== ENCOUNTER → 2022-03-12 15:11 | Outpatient (BNVA) | payer MEDICARE, MEDICAID, SELFPAY | PROVIDERS: PCP Family Medicine; Visit Provider Thoracic Surgery (Cardiothoracic Vascular Surgery) | DX: E11.622 Type 2 diabetes mellitus with other skin ulcer (principal); E11.621 Type 2 diabetes mellitus with foot ulcer; I96 Gangrene, not elsewhere classified; L97.822 Non-pressure chronic ulcer of other part of left lower leg with fat layer exposed; L97.521 Non-pressure chronic ulcer of other part of left foot limited to breakdown of skin | CPT/HCPCS: 97597; A6251 ==

== ENCOUNTER → 2022-03-15 10:51 | Outpatient (BNVA) | payer MEDICARE, MEDICAID, SELFPAY | PROVIDERS: PCP Family Medicine; Visit Provider Physician Assistant | DX: Z98.890 Other specified postprocedural states (principal); S72.402D Unspecified fracture of lower end of left femur, subsequent encounter for closed fracture with routine healing; X58.XXXD Exposure to other specified factors, subsequent encounter | CPT/HCPCS: 73552 ==

== ENCOUNTER → 2022-03-19 12:56 | Outpatient (BNVA) | payer MEDICARE, MEDICAID, SELFPAY | PROVIDERS: PCP Family Medicine; Visit Provider Thoracic Surgery (Cardiothoracic Vascular Surgery) | DX: E11.622 Type 2 diabetes mellitus with other skin ulcer (principal); F17.210 Nicotine dependence, cigarettes, uncomplicated; L97.822 Non-pressure chronic ulcer of other part of left lower leg with fat layer exposed; I96 Gangrene, not elsewhere classified; E11.621 Type 2 diabetes mellitus with foot ulcer; L97.521 Non-pressure chronic ulcer of other part of left foot limited to breakdown of skin | CPT/HCPCS: 11042; 97597 ==

== ENCOUNTER → 2022-03-20 10:45 | Outpatient (BNVA) | payer MEDICARE, MEDICAID, SELFPAY | PROVIDERS: PCP Family Medicine; Visit Provider Physician Assistant | DX: S72.402D Unspecified fracture of lower end of left femur, subsequent encounter for closed fracture with routine healing (principal); X58.XXXD Exposure to other specified factors, subsequent encounter | CPT/HCPCS: 99024; 99999 ==

== ENCOUNTER → 2022-03-26 13:04 | Outpatient (BNVA) | payer MEDICARE, MEDICAID, SELFPAY | PROVIDERS: PCP Family Medicine; Visit Provider Thoracic Surgery (Cardiothoracic Vascular Surgery) | DX: E11.622 Type 2 diabetes mellitus with other skin ulcer (principal); L97.822 Non-pressure chronic ulcer of other part of left lower leg with fat layer exposed; I96 Gangrene, not elsewhere classified; L97.521 Non-pressure chronic ulcer of other part of left foot limited to breakdown of skin; L97.821 Non-pressure chronic ulcer of other part of left lower leg limited to breakdown of skin; F17.210 Nicotine dependence, cigarettes, uncomplicated | CPT/HCPCS: 97597 ==

== ENCOUNTER → 2022-04-09 09:48 | Outpatient (BNVA) | payer MEDICARE, MEDICAID, SELFPAY | PROVIDERS: PCP Family Medicine; Visit Provider Thoracic Surgery (Cardiothoracic Vascular Surgery) | DX: E11.622 Type 2 diabetes mellitus with other skin ulcer (principal); L97.822 Non-pressure chronic ulcer of other part of left lower leg with fat layer exposed; I96 Gangrene, not elsewhere classified; E11.621 Type 2 diabetes mellitus with foot ulcer; L97.521 Non-pressure chronic ulcer of other part of left foot limited to breakdown of skin; L97.821 Non-pressure chronic ulcer of other part of left lower leg limited to breakdown of skin | CPT/HCPCS: 97597; 97598 ==

== ENCOUNTER → 2022-04-18 14:54 | Outpatient (BNVA) | payer MEDICARE, MEDICAID, SELFPAY | PROVIDERS: PCP Family Medicine; Visit Provider Thoracic Surgery (Cardiothoracic Vascular Surgery) | DX: E11.622 Type 2 diabetes mellitus with other skin ulcer (principal); L97.822 Non-pressure chronic ulcer of other part of left lower leg with fat layer exposed; I96 Gangrene, not elsewhere classified; L97.521 Non-pressure chronic ulcer of other part of left foot limited to breakdown of skin; L97.821 Non-pressure chronic ulcer of other part of left lower leg limited to breakdown of skin | CPT/HCPCS: 97597; A6252 ==

== ENCOUNTER 2022-04-20 13:21 | Outpatient (CLI) | payer MEDICARE, MEDICAID, SELFPAY ==
--- NOTE | 2022-04-20 13:42 | XRR_ITS ---
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 Views: 2 views. COMPARISON: CR XR femur LT min 2V* [id number] 03/15/2022 11:39 AM FINDINGS: Bones/joints: There is a metallic intramedullary radha within the femur traversing a healing fracture in the distal shaft of the femur. Periosteal new bone formation is seen increased since prior examination in the area of the distal femur fracture. Metallic screws are present in the distal metaphysis of the left femur. There is tricompartmental narrowing consistent with severe osteoarthritis in the left knee. Soft tissues: Unremarkable. XR/XR femur LT min 2V* [id number] IMPRESSION: 1. Healing fracture distal shaft of the left femur status post ORIF. 2. Severe osteoarthritis of the left knee
== END 2022-04-20 13:22 | disposition home or self-care (01) ==
PROVIDERS: PCP Family Medicine; Visit Provider Physician Assistant
DX: M17.12 Unilateral primary osteoarthritis, left knee (principal); M25.562 Pain in left knee
CPT/HCPCS: 73552

== ENCOUNTER → 2022-04-23 09:58 | Outpatient (BNVA) | payer MEDICARE, MEDICAID, SELFPAY | PROVIDERS: PCP Family Medicine; Visit Provider Thoracic Surgery (Cardiothoracic Vascular Surgery) | DX: I96 Gangrene, not elsewhere classified (principal); E11.622 Type 2 diabetes mellitus with other skin ulcer; L97.822 Non-pressure chronic ulcer of other part of left lower leg with fat layer exposed; Z09 Encounter for follow-up examination after completed treatment for conditions other than malignant neoplasm | CPT/HCPCS: 97597 ==

== ENCOUNTER → 2022-04-24 14:24 | Outpatient (BNVA) | payer MEDICARE, MEDICAID, SELFPAY | PROVIDERS: PCP Family Medicine; Visit Provider Physician Assistant | DX: X58.XXXD Exposure to other specified factors, subsequent encounter; S72.402D Unspecified fracture of lower end of left femur, subsequent encounter for closed fracture with routine healing | CPT/HCPCS: 99024 ==

== ENCOUNTER → 2022-04-30 09:26 | Outpatient (BNVA) | payer MEDICARE, MEDICAID, SELFPAY | PROVIDERS: PCP Family Medicine; Visit Provider Thoracic Surgery (Cardiothoracic Vascular Surgery) | DX: E11.622 Type 2 diabetes mellitus with other skin ulcer (principal); L97.822 Non-pressure chronic ulcer of other part of left lower leg with fat layer exposed; I96 Gangrene, not elsewhere classified | CPT/HCPCS: 29581; 97597; A6210 ==

== ENCOUNTER → 2022-05-07 09:35 | Outpatient (BNVA) | payer MEDICARE, MEDICAID, SELFPAY | PROVIDERS: PCP Family Medicine; Visit Provider Nurse Practitioner Family | DX: E11.622 Type 2 diabetes mellitus with other skin ulcer (principal); L97.822 Non-pressure chronic ulcer of other part of left lower leg with fat layer exposed | CPT/HCPCS: 11042; A6210 ==

== ENCOUNTER → 2022-05-14 10:05 | Outpatient (BNVA) | payer MEDICARE, MEDICAID, SELFPAY | PROVIDERS: PCP Family Medicine; Visit Provider Thoracic Surgery (Cardiothoracic Vascular Surgery) | DX: L97.822 Non-pressure chronic ulcer of other part of left lower leg with fat layer exposed (principal); E11.621 Type 2 diabetes mellitus with foot ulcer | CPT/HCPCS: 99212 ==

== ENCOUNTER 2022-06-05 12:52 | Outpatient (CLI) | payer MEDICARE, MEDICAID, SELFPAY ==
--- NOTE | 2022-06-05 13:02 | XRR_ITS ---
PROCEDURE INFORMATION: Exam: XR Left Femur Exam date and time: 06/05/2022 1:13 PM Age: 62 years old Clinical indication: Condition or disease; Other: Unspecified fracture of lower end of left femu. . . ; Additional info: S72.402d - unspecified fracture of lower end of left femu. . . TECHNIQUE: Imaging protocol: Radiologic exam of the Left femur. Views: 2 views. COMPARISON: CR XR femur LT min 2V* [id number] 04/20/2022 1:50 PM FINDINGS: Bones/joints: Orthopedic radha seen in place in the femur. Severe osteoarthritis of the knee. Soft tissues: Unremarkable. XR/XR femur LT min 2V* [id number] IMPRESSION: 1. Orthopedic radha seen in place in the femur. 2. Severe osteoarthritis of the knee.
== END 2022-06-05 12:53 | disposition home or self-care (01) ==
PROVIDERS: PCP Family Medicine; Visit Provider Physician Assistant
DX: S72.402D Unspecified fracture of lower end of left femur, subsequent encounter for closed fracture with routine healing (principal); X58.XXXD Exposure to other specified factors, subsequent encounter
CPT/HCPCS: 73552

== ENCOUNTER → 2022-06-07 12:08 | Outpatient (BNVA) | payer MEDICARE, MEDICAID, SELFPAY | PROVIDERS: PCP Family Medicine; Visit Provider Physician Assistant | DX: S72.402D Unspecified fracture of lower end of left femur, subsequent encounter for closed fracture with routine healing (principal); X58.XXXD Exposure to other specified factors, subsequent encounter | CPT/HCPCS: 99213 ==

== ENCOUNTER → 2022-07-09 13:16 | Outpatient (BNVA) | payer MEDICARE, MEDICAID, SELFPAY | PROVIDERS: PCP Family Medicine; Visit Provider Thoracic Surgery (Cardiothoracic Vascular Surgery) | DX: I96 Gangrene, not elsewhere classified (principal); E11.622 Type 2 diabetes mellitus with other skin ulcer; E11.621 Type 2 diabetes mellitus with foot ulcer; L97.822 Non-pressure chronic ulcer of other part of left lower leg with fat layer exposed; L97.522 Non-pressure chronic ulcer of other part of left foot with fat layer exposed | CPT/HCPCS: 97597; 99213; A6251 ==

== ENCOUNTER → 2022-07-12 15:09 | Outpatient (BNVA) | payer MEDICARE, MEDICAID, SELFPAY | PROVIDERS: PCP Family Medicine; Visit Provider Nurse Practitioner Family | DX: E11.622 Type 2 diabetes mellitus with other skin ulcer (principal); L97.829 Non-pressure chronic ulcer of other part of left lower leg with unspecified severity | CPT/HCPCS: 29581; A6251 ==

== ENCOUNTER → 2022-07-16 14:24 | Outpatient (BNVA) | payer MEDICARE, MEDICAID, SELFPAY | PROVIDERS: PCP Family Medicine; Visit Provider Thoracic Surgery (Cardiothoracic Vascular Surgery) | DX: I96 Gangrene, not elsewhere classified (principal); L97.822 Non-pressure chronic ulcer of other part of left lower leg with fat layer exposed; L97.522 Non-pressure chronic ulcer of other part of left foot with fat layer exposed | CPT/HCPCS: 97597; A6197 ==

== ENCOUNTER → 2022-07-30 10:10 | Outpatient (BNVA) | payer MEDICARE, MEDICAID, SELFPAY | PROVIDERS: PCP Family Medicine; Visit Provider Nurse Practitioner Family | DX: I96 Gangrene, not elsewhere classified (principal); E11.621 Type 2 diabetes mellitus with foot ulcer; L97.822 Non-pressure chronic ulcer of other part of left lower leg with fat layer exposed | CPT/HCPCS: 11042; A6197 ==

== ENCOUNTER → 2022-08-09 14:05 | Outpatient (BNVA) | payer MEDICARE, MEDICAID, SELFPAY | PROVIDERS: PCP Family Medicine; Visit Provider Thoracic Surgery (Cardiothoracic Vascular Surgery) | DX: I96 Gangrene, not elsewhere classified (principal); E11.622 Type 2 diabetes mellitus with other skin ulcer; L97.822 Non-pressure chronic ulcer of other part of left lower leg with fat layer exposed; E11.621 Type 2 diabetes mellitus with foot ulcer; L97.522 Non-pressure chronic ulcer of other part of left foot with fat layer exposed | CPT/HCPCS: 97597; A6197 ==

== ENCOUNTER → 2022-08-13 09:49 | Outpatient (BNVA) | payer MEDICARE, MEDICAID, SELFPAY | PROVIDERS: PCP Family Medicine; Visit Provider Thoracic Surgery (Cardiothoracic Vascular Surgery) | DX: I96 Gangrene, not elsewhere classified (principal); E11.622 Type 2 diabetes mellitus with other skin ulcer; L97.822 Non-pressure chronic ulcer of other part of left lower leg with fat layer exposed; E11.621 Type 2 diabetes mellitus with foot ulcer; L97.522 Non-pressure chronic ulcer of other part of left foot with fat layer exposed | CPT/HCPCS: 97597 ==

== ENCOUNTER → 2022-08-20 08:29 | Outpatient (BNVA) | payer MEDICARE, MEDICAID, SELFPAY | PROVIDERS: PCP Family Medicine; Visit Provider Thoracic Surgery (Cardiothoracic Vascular Surgery) | DX: I96 Gangrene, not elsewhere classified (principal); E11.622 Type 2 diabetes mellitus with other skin ulcer; L97.822 Non-pressure chronic ulcer of other part of left lower leg with fat layer exposed; L89.892 Pressure ulcer of other site, stage 2 | CPT/HCPCS: 11042; 97597; 97598; A6252 ==

== ENCOUNTER → 2022-09-03 08:14 | Outpatient (BNVA) | payer MEDICARE, MEDICAID, SELFPAY | PROVIDERS: PCP Family Medicine; Visit Provider Nurse Practitioner Family | DX: I96 Gangrene, not elsewhere classified (principal); E11.622 Type 2 diabetes mellitus with other skin ulcer; L97.822 Non-pressure chronic ulcer of other part of left lower leg with fat layer exposed; E11.621 Type 2 diabetes mellitus with foot ulcer; L97.521 Non-pressure chronic ulcer of other part of left foot limited to breakdown of skin | CPT/HCPCS: 11042 ==

== ENCOUNTER → 2022-09-10 08:20 | Outpatient (BNVA) | payer MEDICARE, MEDICAID, SELFPAY | PROVIDERS: PCP Family Medicine; Visit Provider Thoracic Surgery (Cardiothoracic Vascular Surgery) | DX: I96 Gangrene, not elsewhere classified (principal); E11.622 Type 2 diabetes mellitus with other skin ulcer; L97.822 Non-pressure chronic ulcer of other part of left lower leg with fat layer exposed; E11.621 Type 2 diabetes mellitus with foot ulcer; L97.521 Non-pressure chronic ulcer of other part of left foot limited to breakdown of skin | CPT/HCPCS: 97597 ==

== ENCOUNTER → 2022-09-17 08:32 | Outpatient (BNVA) | payer MEDICARE, MEDICAID, SELFPAY | PROVIDERS: PCP Family Medicine; Visit Provider Thoracic Surgery (Cardiothoracic Vascular Surgery) | DX: I96 Gangrene, not elsewhere classified (principal); I87.2 Venous insufficiency (chronic) (peripheral); L97.822 Non-pressure chronic ulcer of other part of left lower leg with fat layer exposed; L97.522 Non-pressure chronic ulcer of other part of left foot with fat layer exposed | CPT/HCPCS: 97597; A6210 ==

== ENCOUNTER → 2022-09-24 08:54 | Outpatient (BNVA) | payer MEDICARE, MEDICAID, SELFPAY | PROVIDERS: PCP Family Medicine; Visit Provider Thoracic Surgery (Cardiothoracic Vascular Surgery) | DX: I96 Gangrene, not elsewhere classified (principal); I87.2 Venous insufficiency (chronic) (peripheral); L97.822 Non-pressure chronic ulcer of other part of left lower leg with fat layer exposed; L97.522 Non-pressure chronic ulcer of other part of left foot with fat layer exposed | CPT/HCPCS: 99212; A6210 ==

== ENCOUNTER → 2022-10-01 08:51 | Outpatient (BNVA) | payer MEDICARE, MEDICAID, SELFPAY | PROVIDERS: PCP Family Medicine; Visit Provider Thoracic Surgery (Cardiothoracic Vascular Surgery) | DX: I87.2 Venous insufficiency (chronic) (peripheral) (principal); L97.822 Non-pressure chronic ulcer of other part of left lower leg with fat layer exposed; E11.621 Type 2 diabetes mellitus with foot ulcer; L89.891 Pressure ulcer of other site, stage 1; L89.892 Pressure ulcer of other site, stage 2 | CPT/HCPCS: 99212; A6210 ==

== ENCOUNTER → 2022-12-03 15:11 | Outpatient (BNVA) | payer MEDICARE, MEDICAID, SELFPAY | PROVIDERS: PCP Family Medicine; Visit Provider Thoracic Surgery (Cardiothoracic Vascular Surgery) | DX: I96 Gangrene, not elsewhere classified (principal); E11.621 Type 2 diabetes mellitus with foot ulcer; L97.522 Non-pressure chronic ulcer of other part of left foot with fat layer exposed | CPT/HCPCS: 99213 ==

== ENCOUNTER 2022-12-26 10:54 | Outpatient (RCR) | payer MEDICARE, MEDICAID, SELFPAY | END 2023-01-15 23:59 | disposition home or self-care (01) | LOC: SPT 10:54 | PROVIDERS: PCP Family Medicine; Visit Provider Thoracic Surgery (Cardiothoracic Vascular Surgery) | DX: I89.0 Lymphedema, not elsewhere classified (principal) | CPT/HCPCS: 97161 ==

== ENCOUNTER → 2023-02-27 11:32 | Outpatient (BNVA) | payer MEDICARE, MEDICAID, SELFPAY | PROVIDERS: PCP Family Medicine; Visit Provider Podiatrist Foot & Ankle Surgery | DX: E11.42 Type 2 diabetes mellitus with diabetic polyneuropathy (principal); Z89.611 Acquired absence of right leg above knee; E11.622 Type 2 diabetes mellitus with other skin ulcer; L97.321 Non-pressure chronic ulcer of left ankle limited to breakdown of skin; Z79.84 Long term (current) use of oral hypoglycemic drugs | CPT/HCPCS: 99214 ==

== ENCOUNTER → 2023-04-03 13:11 | Outpatient (BNVA) | payer MEDICARE, MEDICAID, SELFPAY | PROVIDERS: PCP Family Medicine; Visit Provider Podiatrist Foot & Ankle Surgery | DX: E11.42 Type 2 diabetes mellitus with diabetic polyneuropathy (principal); Z89.611 Acquired absence of right leg above knee; E11.621 Type 2 diabetes mellitus with foot ulcer; L97.522 Non-pressure chronic ulcer of other part of left foot with fat layer exposed; R60.0 Localized edema; M20.32 Hallux varus (acquired), left foot | CPT/HCPCS: 73630; 99214 ==

== ENCOUNTER → 2023-04-08 11:36 | Outpatient (BNVA) | payer MEDICARE, MEDICAID, SELFPAY | PROVIDERS: PCP Family Medicine; Visit Provider Podiatrist Foot & Ankle Surgery | DX: E11.621 Type 2 diabetes mellitus with foot ulcer (principal); E11.42 Type 2 diabetes mellitus with diabetic polyneuropathy; L97.522 Non-pressure chronic ulcer of other part of left foot with fat layer exposed; R60.0 Localized edema; Z89.611 Acquired absence of right leg above knee; Z51.89 Encounter for other specified aftercare | CPT/HCPCS: 29580; 99213 ==

== ENCOUNTER → 2023-04-16 10:52 | Outpatient (BNVA) | payer MEDICARE, MEDICAID, SELFPAY | PROVIDERS: PCP Family Medicine; Visit Provider Podiatrist Foot & Ankle Surgery | DX: E11.42 Type 2 diabetes mellitus with diabetic polyneuropathy (principal); Z89.611 Acquired absence of right leg above knee; E11.621 Type 2 diabetes mellitus with foot ulcer; L97.522 Non-pressure chronic ulcer of other part of left foot with fat layer exposed; R60.0 Localized edema; Z79.84 Long term (current) use of oral hypoglycemic drugs | CPT/HCPCS: 99214 ==

== ENCOUNTER 2023-06-11 14:35 | Inpatient (IN) | payer MEDICARE, MEDICAID, SELFPAY ==
[2023-06-11] VITALS (44 sets, daily range): BP systolic 80–145; BP diastolic 39–89; PULSE 68–84; RESP 15–36; TEMP 36.8–37.1; O2SAT 76–100; BMI 29.0
--- NOTE | 2023-06-11 14:49 | ECG_ITS ---
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 Measurements Intervals Paden Rate: 66 P: 59 WV: 160 QRS: 38 QRSD: 86 T: 56 QT: 411 QTc: 433 Interpretive Statements SINUS RHYTHM NONSPECIFIC ST & T-WAVE ABNORMALITY Compared to ECG 02/27/2022 15:20:56 T-wave abnormality now present Sinus arrhythmia no longer present Electronically Signed On 06-11-2023 17:30:41 CDT by Gil Ramos M.D. [id number]
--- NOTE | 2023-06-11 14:49 | USR_ITS ---
PROCEDURE INFORMATION: Exam: US Duplex Left Lower Extremity Veins, Limited Exam date and time: 06/11/2023 4:34 PM Age: 63 years old Clinical indication: Swelling (edema) of limb; Lower extremity, left; Additional info: Cellulitis, swelling TECHNIQUE: Imaging protocol: Real-time duplex ultrasound of the left extremity with 2-D ludwig scale, color Doppler flow and spectral waveform analysis including responses to compression and other maneuvers (when performed) with image documentation. Limited exam focused on the left lower extremity veins. COMPARISON: CT femur LT wo con* [id number] 02/27/2022 6:02 PM FINDINGS: Left deep veins: Unremarkable. The common femoral, femoral, and proximal profunda femoral veins are patent without thrombus. Normal Doppler waveforms. Compressibility and/or augmentation response could not be assessed due to patient intolerance. The popliteal vein was not accessible and was not imaged. Left superficial veins: Unremarkable. Saphenofemoral junction is patent without thrombus. Soft tissues: Unremarkable. US/CV venous duplex [facility] [id number] IMPRESSION: 1. No evidence of deep vein thrombosis. 2. Evaluation is limited due to patient intolerance of compression or augmentation. The popliteal vein could not be accessed.
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
--- NOTE | 2023-06-11 15:06 | XR_ITS ---
WS: [id number] EXAMINATION: XR foot LT min 3V* [id number] REASON FOR EXAM: pain COMPARISON: 04/03/2023 ORDER DATE: 06/11/2023 3:09 PM TECHNIQUE: 3 views of the left foot were obtained. Findings: There is diffuse osteoarthritis and demineralization. There is lateral deviation of the distal phalanx from the proximal phalanx of left great toe. The foot is flat. There is a plantar spur. There is some wavy periosteal thickening involving second through fifth metatarsals. There is hallux valgus change and marked degenerative changes at the DIP j oint of the great toe There is soft tissue swelling on the plantar and dorsal aspects of the foot. No definite osteomyelitis. XR/XR foot LT min 3V* [id number] Impression: 1. Diffuse osteoarthritis and demineralization. 2. Soft tissue swelling surrounding the left foot. 3. No definite osteomyelitis.
--- NOTE | 2023-06-11 15:06 | XR_ITS ---
WS: [id number] EXAMINATION: XR knee LT 3V* [id number] REASON FOR EXAM: pain COMPARISON: 06/05/2022 ORDER DATE: 06/11/2023 3:09 PM FINDINGS/IMPRESSION: The long intramedullary radha of the left femur is fixed with proximal and distal orthopedic screws. The transverse fracture of the distal left femur is underwent union with marked hypertrophic change a nd extensive bilateral heterotopic ossification with near obliteration of the joint. There is also co nsiderable medial subluxation of the medial femoral condyle in reference to the medial tibial plateau . Prominent osteochondromas noted along with near obliteration of the patellofemoral compartment srinivas lar causes.
--- NOTE | 2023-06-11 15:06 | XR_ITS ---
WS: [id number] EXAMINATION: XR femur LT min 2V* [id number] REASON FOR EXAM: pain COMPARISON: None available. ORDER DATE: 06/11/2023 3:09 PM FINDINGS: Bones/joints: Orthopedic radha seen in place in the femur. Severe osteoarthritis of the knee with extensive heterotopic ossification. XR/XR femur LT min 2V* [id number] IMPRESSION: 1. Orthopedic radha seen in place in the femur. 2. Severe osteoarthritis and posttraumatic changes at the knee. See knee report for more detail.
--- NOTE | 2023-06-11 15:06 | XR_ITS ---
WS: [id number] EXAMINATION: XR ankle LT min 3V* [id number] REASON FOR EXAM: pain COMPARISON: None available. ORDER DATE: 06/11/2023 3:09 PM TECHNIQUE: 3 views of the left ankle were obtained. X-RAY FINDINGS: There is severe narrowing of the ankle mortise especially the medial component with erosive change in the medial malleolus along with some small osseous fragments secondary to erosion is also present in the adjacent talus. Marked osteopenia. XR/XR ankle LT min 3V* [id number] IMPRESSION: No fractures or dislocations. Marked osteopenia with erosive change as describe d question Charcot joint and or other peripheral neuropathy.
[2023-06-11 15:23] LABS: Basophils # 0.1 10^3/uL (0.0-0.1); Basophils % 0.4 %; Hematocrit 39.4 % (37.0-47.0); Hemoglobin 12.4 g/dL (11.5-15.3); Lymphocytes # 0.5 10^3/uL (0.8-4.8); Lymphocytes % 2.4 %; Mean Corpuscular HGB Conc 31.5 g/dL (30.0-36.0); Mean Corpuscular Hemoglobin 29.7 pg (28.0-34.0); Mean Corpuscular Volume 94.5 fl (81-99); Monocytes # 0.5 10^3/uL (0.2-0.9); Monocytes % 2.7 %; Neutrophils % 92.2 %; Nucleated Red Blood Cells % 0 %; Platelet Count 292 10^3/cmm (130-400); Red Blood Count 4.17 10^6/uL (4.1-5.3); Red Cell Distribution Width 14.3 % (12.1-15.1); White Blood Count 20.1 10^3/uL (4.0-10.0)
[2023-06-11 15:40] LABS: Lactic Sepsis W/Reflex 2.2 mmol/L (0.5-2.2)
[2023-06-11] MEDS: vancomycin 1,000 MG in sodium chloride 0.9% 250 ML 250 MG IV (15:41)
[2023-06-11 15:47] LABS: Alanine Aminotransferase 17 U/L (0-33); Albumin Level 3.6 g/dL (3.5-5.2); Alkaline Phosphatase 100 U/L (35-105); Aspartate Amino Transferase 30 U/L (0-32); Blood Urea Nitrogen 13 mg/dL (8-23); Carbon Dioxide 28 mmol/L (22-29); Chloride 92 mmol/L (98-107); Globulin 3.8 g/dL (1.3-4.6); Glomerular Filtration Rate 161.2 mL/min (90-130); Glucose 130 mg/dL (65-115); Osmolality Calculated 274 mOsm/kg (285-295); Sodium 131 mmol/L (136-145); Total Bilirubin 0.8 mg/dL (0.15-1.2); Total Protein 7.4 g/dL (6.6-8.7)
[2023-06-11 15:50] LABS: Anion Gap 14.5 (5-19); Potassium 3.5 mmol/L (3.5-5.1)
[2023-06-11] MEDS: morphine 4 mg/mL SDV 1 mL IVP (16:10)
[2023-06-11 16:21] LABS: Add Urine Microscopic? YES; Bacteria Urine TRACE /hpf; Bilirubin Urine 1+ (Negative); Blood Urine 3+ (Negative); Glucose Urine UA Norm (Normal); Ketones Urine Negative (Negative); Leukocyte Esterase Urine Negative (Negative); Mucus Urine 2+ /hpf; Nitrate Urine Negative (Negative); Protein Urine 1+ (Negative); Specific Gravity, Urine 1.025 (1.005-1.030); Squamous Epithelial Cell Urine 0-4 /hpf (0-5); Urine Appearance Cloudy (CLEAR); Urine Color Amber (Yellow); Urobilinogen Urine 8 mg/dL (Negative); WBC Urine 0-4 /hpf (0-5); pH Urine 6 (5-7)
[2023-06-11 16:22] LABS: Add Urine Culture? No; Amorphous Sediment Urine 2+ /hpf; Hyaline Casts Urine 0-4 /lpf
--- NOTE | 2023-06-11 16:38 | PC.PHAR ---
pt states she takes 50mg of methadone a day-pt states she gets [facility] is closed no way to verify mg-pts verified all other medications-states the pt doesnt take an aspirin 325mg daily states he gives it to her prn-states the pt takes lasix 40mg daily prn ext shows last filled 03/20/23 90d/s 40mg daily-pts states the pt takes gabapentin 600mg takes 2 tabs (1200mg) bid ext shows last filled 05/15/23 30d/s 900mg tid-states the pt takes pantoprazole 40mg qpm rx filled 03/25/23 90d/s 40mg bid-notes are made in the pharmacy comments
[2023-06-11 17:04] LABS: Reflex Lactate Order REFLEX LACTIC ORDERD
--- NOTE | 2023-06-11 17:41 | CTR_ITS ---
PROCEDURE INFORMATION: Exam: CT Left Lower Extremity With Contrast, Knee Exam date and time: 06/11/2023 6:04 PM Age: 63 years old Clinical indication: Pain; Knee; Left; Prior surgery; Surgery date: 6+ months; Surgery type: Lt femoral nail; Additional info: Evalute for septic arthritis TECHNIQUE: Imaging protocol: CT of the left lower extremity with intravenous contrast was performed. Exam focused on the knee. Radiation optimization: All CT scans at this facility use at least one of these dose optimization techniques: automated exposure control; mA and/or kV adjustment per patient size (includes targeted exams where dose is matched to clinical indication); or iterative reconstruction. Contrast material: OMNI 350; Contrast volume: 100 ml; Contrast route: INTRAVENOUS (IV); REPORTING DATA: Count of CT and Cardiac NM exams in prior 12 months: This patient has received 0 known CTs and 0 known cardiac nuclear medicine studies in the 12 months prior to the current study. COMPARISON: CR XR knee LT 3V* [id number] 06/11/2023 3:38 PM RADIATION DOSE METRICS: Total DLP (mGy-cm): 462.41 FINDINGS: Bones/joints: Intramedullary radha in the left femur with 2 distal locking screws. Old healed fracture in the distal metaphysis of the left femur. Severe degenerative changes of all 3 knee compartments with severe joint space narrowing and hypertrophic spurring. Old healed medial tibial plateau fracture. No acute fracture or acute bone destruction identified. Multiple degenerative subchondral cysts in the femoral and tibial condyles. Soft tissues: Severe diffuse subcutaneous soft tissue edema throughout the left lower extremity, with skin thickening. No definite organized fluid collection. Fatty atrophy of multiple muscles in the thigh and lower leg. CT/CT knee LT w con [id number] IMPRESSION: 1. Severe diffuse subcutaneous soft tissue edema and skin thickening throughout the left lower extremity. This could represent edema or cellulitis. No organized fluid collection or abscess identified. 2. Old healed fractures in the distal right femur and medial tibial plateau. 3. Severe hypertrophic degenerative changes of the knee joint.
--- NOTE | 2023-06-11 17:42 | P.HP_ITS ---
Providers/Chief Complaint Primary Care Provider: Wilner Hdez DO Chief Complaint: LT Leg Pain History of Present Illness Polina Snyder is a 63 year old female with a past medical history of diabetes mellitus, peripheral artery disease status post AKA of her right leg, currently on methadone presenting to the hospital today with 3 days of worsening left lower extremity swelling. Patient and her state that patient has c hronic lower extremity edema which often develops weeping ulcerations. She has had 1 set weeping ulceration over her toe and also on the lower part of her cough. Over the past 3 days they noticed that her leg was becoming more warm swollen and erythematous over the course of the past 24 hours it has diffusely increased up to her thigh level now. Her leg is extremely painful, tender to touch. This morning she was confused and delirious and was brought into the emergency room. She is found to have leukocytosis, diffuse cellulitis affecting her left leg extending from her foot to her left groin. Also has intertrigo noted bilaterally. Per she had a fever of 102 Fahrenheit at home. Currently she is afebrile. She is confused, answers questions intermittently. Able to correctly state her name and the fact that she has been sick for the past week. Unable to give any other details at this time. Review of Systems General: Reports: ROS unobtainable due to mental status Medications/Allergies Home Medications Medication Instructions Recorded Confirmed Last Taken Type aspirin 325 mg tablet 325 mg PO DAILY PRN Pain 08/17/21 06/11/23 06/11/23 History fluticasone propionate 50 2 spray intranasal DAILY PRN 11/08/21 06/11/23 Unknown History mcg/actuation nasal Allergy Symptoms spray,suspension ipratropium bromide 17 2 puff inhalation Q6H PRN unknown 11/08/21 06/11/23 Unknown History mcg/actuation HFA aerosol inhaler (Atrovent HFA) miscellaneous medical supply See Rx Instructions .Route 06/18/22 06/11/23 Unknown Rx .COMPLEX #1 ea potassium chloride 20 mEq 20 meq PO QAM #90 tabs 06/18/22 06/11/23 06/11/23 Rx tablet,extended release Nubia Lift #1 ea 12/25/22 06/11/23 Unknown Rx silver sulfadiazine 1 % topical 1 applic topical BID #20 grams 03/13/23 06/11/23 Unknown Rx cream (Silvadene) [facility] bed #1 ea 03/22/23 06/11/23 Unknown Rx ketoconazole 2 % shampoo See Rx Instructions .Route 06/10/23 06/11/23 Unknown Rx .COMPLEX #120 mL L.acidophil-L.casei-B.bifid-B.longum-FOS 1 cap PO DAILY PRN unknown 06/11/23 06/11/23 Unknown History 2 billion cell-50 mg capsule (Probiotic Blend) albuterol sulfate 90 mcg/actuation 2 puff inhalation Q6H PRN 06/11/23 06/11/23 Unknown History aerosol inhaler Shortness Of Breath amlodipine 10 mg tablet 10 mg PO QAM 06/11/23 06/11/23 06/10/23 History atenolol 100 mg tablet 100 mg PO BID 06/11/23 06/11/23 06/10/23 History baclofen 20 mg tablet 20 mg PO BID 06/11/23 06/11/23 06/11/23 History buspirone 5 mg tablet 5 mg PO BID 06/11/23 06/11/23 06/11/23 History fenofibrate micronized 200 mg 200 mg PO BEDTIME 06/11/23 06/11/23 06/10/23 History capsule furosemide 40 mg tablet 40 mg PO DAILY PRN Edema 06/11/23 06/11/23 Unknown History gabapentin 600 mg tablet 1,200 mg PO BID 06/11/23 06/11/23 06/11/23 History lidocaine-prilocaine 2.5 %-2.5 % 1 applic topical BID PRN unknown 06/11/23 06/11/23 Unknown History topical cream metformin 500 mg tablet,extended 500 mg PO QAM 06/11/23 06/11/23 Unknown History release 24hr methadone 40 mg soluble tablet 50 mg PO QAM 06/11/23 06/11/23 06/11/23 History miconazole nitrate 2 % vaginal See Rx Instructions .Route .COMPLEX 06/11/23 06/11/23 Unknown History cream (Monistat 7) pantoprazole 40 mg tablet,delayed 40 mg PO QPM 06/11/23 06/11/23 06/10/23 History release prochlorperazine maleate 10 mg 10 mg PO BID PRN Nausea And 06/11/23 06/11/23 Unknown History tablet (Compazine) Vomiting temazepam 15 mg capsule 15 mg PO BEDTIME PRN sleep 06/11/23 06/11/23 Unknown History venlafaxine 75 mg capsule,extended 75 mg PO QAM 06/11/23 06/11/23 Unknown History release 24 hr Allergies Allergy/AdvReac Type Severity Reaction Status Date / Time adhesive tape Allergy rash Verified 06/11/23 16:38 amitriptyline Allergy Unknown Verified 06/11/23 16:38 nitrofurantoin Allergy ADR-Vomitin Verified 06/11/23 16:38 [From Macrobid] g Sulfa (Sulfonamide Allergy Itch all Verified 06/11/23 16:38 Antibiotics) over PFSH Acute PFSH: Medical History Anemia Cellulitis Cervical post-laminectomy syndrome Ekccygt-Diire-Gmqre disease-like deformity of foot right Chronic pain Closed femur fracture Closed fracture of left distal femur Degenerative joint disease of left knee Depression with anxiety Diabetes mellitus, type II Diabetic neuropathy associated with type 2 diabetes mellitus Diastolic CHF History of cardioversion history of SVT vs for other arrhythmia History of DVT of lower extremity post-operative Hyperlipidemia Hypertension Hypertension Lumbar radiculopathy Lung cancer Methamphetamine use Substance abuse Torticollis, acquired Has had good results with Botox in the past Venous stasis ulcer Surgical History History of arthroplasty of left knee (~1976) History of partial hysterectomy Hx of appendectomy Hx of dilation and curettage Hx of neck surgery x 2, posterior laminectomy and cervical fusion with hardware in place, limited ROM neck at baseline Hx of total knee replacement (~2010) Right Hx of tubal ligation Family History Family/Other Hypertension Depression Anxiety Diabetes Father Aneurysm Mother Hypertension Brother Diabetes Sister Diabetes Social History Smoking and tobacco status: current every day smoker Alcohol intake: never Substance/Drug Use: current Substance/Drug use frequency: few times a month Marital status: Additional social history: unknown if patient continues to smoke, documented to smoke previously Female Reproductive History: Spontaneous abortions: No Vitals/I&O/Wt Last Vital Signs Temp 98.5 F 06/11/23 14:44 Pulse 74 06/11/23 16:01 Resp 22 H 06/11/23 16:10 BP 137/89 06/11/23 16:01 Pulse Ox 97 06/11/23 16:10 O2 Del Method Nasal Cannula 06/11/23 16:01 O2 Flow Rate 3 06/11/23 16:01 Weight last 48 hrs Weight 83.915 kg Physical Exam Narrative: General: No acute distress, AO x2 HEENT: PERRLA, pupils bilaterally equal and reactive, pallors not present Chest: Normal vesicular breath sounds, no added sounds, equal good air entry bilaterally CVS: S1-S2 regular, no murmurs, no tachycardia, no gallops, no rubs Abdomen: Soft, nontender, no organomegaly, bowel sounds present Neuro: No focal deficits, moves all limbs B/L , no facial deformity, AO x2 EXT: left leg diffuse cellulitis Urinary Catheter Management: 2-way Urethral: Cath Placed During This Visit: yes Urinary Catheter Date of Insertion: 06/11/23 Urinary Catheter Time of Insertion: 15:50 Data 06/11/23 14:59 06/11/23 14:59 Other Labs: Radiology Impressions Venous Duplex 06/11/23 14:49 IMPRESSION: 1. No evidence of deep vein thrombosis. 2. Evaluation is limited due to patient intolerance of compression or augmentation. The popliteal vein could not be accessed. Ankle X-Ray 06/11/23 15:06 IMPRESSION: No fractures or dislocations. Marked osteopenia with erosive change as described question Charcot joint and or other peripheral neuropathy. Femur X-Ray 06/11/23 15:06 IMPRESSION: 1. Orthopedic radha seen in place in the femur. 2. Severe osteoarthritis and posttraumatic changes at the knee. See knee report for more detail. Foot X-Ray 06/11/23 15:06 Impression: 1. Diffuse osteoarthritis and demineralization. 2. Soft tissue swelling surrounding the left foot. 3. No definite osteomyelitis. Laboratory Results WBC 20.1 10^3/uL (4.0-10.0) H 06/11/23 14:59 RBC 4.17 10^6/uL (4.1-5.3) 06/11/23 14:59 Hgb 12.4 g/dL (11.5-15.3) 06/11/23 14:59 Hct 39.4 % (37.0-47.0) 06/11/23 14:59 MCV 94.5 fl (81-99) 06/11/23 14:59 MCH 29.7 pg (28.0-34.0) 06/11/23 14:59 MCHC 31.5 g/dL (30.0-36.0) 06/11/23 14:59 RDW 14.3 % (12.1-15.1) 06/11/23 14:59 Plt Count 292 10^3/cmm (130-400) 06/11/23 14:59 MPV 10.0 fL (7.4-10.4) 06/11/23 14:59 Neut % (Auto) 92.2 % 06/11/23 14:59 Lymph % (Auto) 2.4 % 06/11/23 14:59 [place] % (Auto) 2.7 % 06/11/23 14:59 Eos % (Auto) 0.0 % 06/11/23 14:59 Baso % (Auto) 0.4 % 06/11/23 14:59 Neut # (Auto) 18.50 10^3/uL (1.8-7.7) H 06/11/23 14:59 Lymph # (Auto) 0.5 10^3/uL (0.8-4.8) L 06/11/23 14:59 [place] # (Auto) 0.5 10^3/uL (0.2-0.9) 06/11/23 14:59 Eos # (Auto) 0.0 10^3/uL (0.0-0.8) 06/11/23 14:59 Baso # (Auto) 0.1 10^3/uL (0.0-0.1) 06/11/23 14:59 Nucleated RBC % (auto) 0 % 06/11/23 14:59 Nucleated RBCs # 0.0 /100WBC 06/11/23 14:59 Sodium 131 mmol/L (136-145) L 06/11/23 14:59 Potassium 3.5 mmol/L (3.5-5.1) 06/11/23 14:59 Chloride 92 mmol/L (98-107) L 06/11/23 14:59 Carbon Dioxide 28 mmol/L (22-29) 06/11/23 14:59 Anion Gap 14.5 (5-19) 06/11/23 14:59 BUN 13 mg/dL (8-23) 06/11/23 14:59 Creatinine 0.4 mg/dL (0.5-0.9) L 06/11/23 14:59 GFR Calculation 161.2 mL/min (90-130) H 06/11/23 14:59 Glucose 130 mg/dL (65-115) H 06/11/23 14:59 Calculated Osmolality 274 mOsm/kg (285-295) L 06/11/23 14:59 Lactic Acid 2.2 mmol/L (0.5-2.2) 06/11/23 14:59 Calcium 9.0 mg/dL (8.5-10.5) 06/11/23 14:59 Total Bilirubin 0.8 mg/dL (0.15-1.2) 06/11/23 14:59 AST 30 U/L (0-32) 06/11/23 14:59 ALT 17 U/L (0-33) 06/11/23 14:59 Alkaline Phosphatase 100 U/L (35-105) 06/11/23 14:59 Total Protein 7.4 g/dL (6.6-8.7) 06/11/23 14:59 Albumin 3.6 g/dL (3.5-5.2) 06/11/23 14:59 Globulin 3.8 g/dL (1.3-4.6) 06/11/23 14:59 Urine Color Batsheva (Yellow) 06/11/23 15:55 Urine Appearance Cloudy (CLEAR) A 06/11/23 15:55 Urine pH 6 (5-7) 06/11/23 15:55 Ur Specific [place] 1.025 (1.005-1.030) 06/11/23 15:55 Urine Protein 1+ (Negative) H 06/11/23 15:55 Urine Glucose (UA) Norm (Normal) 06/11/23 15:55 Urine Ketones Negative (Negative) 06/11/23 15:55 Urine Blood 3+ (Negative) H 06/11/23 15:55 Urine Nitrate Negative (Negative) 06/11/23 15:55 Urine Bilirubin 1+ (Negative) H 06/11/23 15:55 Urine Urobilinogen 8 mg/dL (Negative) H 06/11/23 15:55 Ur Leukocyte Esterase Negative (Negative) 06/11/23 15:55 Urine RBC 5-10 /hpf (0-2) H 06/11/23 15:55 Urine WBC 0-4 /hpf (0-5) H 06/11/23 15:55 Ur Squamous Epith Cells 0-4 /hpf (0-5) H 06/11/23 15:55 Amorphous Sediment 2+ /hpf 06/11/23 15:55 Urine Bacteria Trace /hpf (NONE) 06/11/23 15:55 Hyaline Casts 0-4 /lpf H 06/11/23 15:55 Urine Mucus 2+ /hpf 06/11/23 15:55 Micro: Microbiology 06/11/23 15:32 Blood Culture - Preliminary Blood SPECIMEN COLLECTED 06/11/23 14:59 Blood Culture - Preliminary Blood SPECIMEN COLLECTED A&P Assessment and plan (1) Left leg cellulitis: (2) Metabolic encephalopathy: Plan Patient presenting today with history of peripheral artery disease, chronic lower extremity swelling, rapidly progressing left lower extremity cellulitis. Had a fever of 102 Fahrenheit reported at home. Currently also with leukocytosis of 20,000. Started on empiric treatment with cefepime and vancomycin. Blood cultures taken prior to starting fish antibiotic therapy. IV fluids normal saline at 100 cc/h. Metabolic encephalopathy related to acute infection most likely. She is currently oriented x2, able to move all her extremities. IV antibiotics IV fluids,, monitor mentation closely Fall precautions CT of the left knee to evaluate for possible underlying septic arthritis given diffuse swelling Intertrigo noted in bilateral groin folds, start clotrimazole ointment application twice daily. Insulin sliding scale for DM management Dvt ppx: lovenox Full code Attestations Medical Necessity Statement*: >2 midnight admission is anticipated for management of cellulitis , metabolic encephalopathy, need for iv abx, IVF, monitoring of neurological status Coding Level of Care Code Acute Code for Chg Fwd High MDM includes number and complexity of problems actively addressed during encounter, amount and/or complexity of data reviewed/ordered and described risk of complication, morbidity or mortality of management as documented Diagnoses Left leg cellulitis L03.116 Metabolic encephalopathy G93.41
[2023-06-11] MEDS: iohexol 350 mg/mL 500 mL Btl (per mL) IV (18:07)
--- NOTE | 2023-06-11 19:16 | PC.NURSE ---
Attempted to call report at [phone], med surg unable to find primary care nurse to receive report. Will reattempt at a later time.
--- NOTE | 2023-06-11 20:09 | PC.PHAR ---
[id number] VANCOMYCIN: High trough requested, 1g given in er 1541. Will redose at 1500 mg q12h starting 8 hours after to maintain levels from lower //first dose. Dosed conservatively due to Patient parameters as on the line for q 8 to q12h dosing. Level due 06/13 @1100
[2023-06-11] MEDS: cefepime 2,000 MG in sodium chloride 0.9% (plus) 50 ML 100 MG IV (20:37)
[2023-06-11] MEDS: sodium chloride 0.9% 1,000 ML 100 ML IV (20:37)
[2023-06-11] MEDS: enoxaparin 40 mg/0.4 mL Syringe SUBCUT (20:38)
[2023-06-11 20:56] LABS: Glucose Point of Care 99 mg/dL (70-110)
[2023-06-11] MEDS: clotrimazole 1% cream 30 gm 1 APPLIC TOPICAL (22:24)
[2023-06-11] MEDS: ketorolac 30 mg/mL INJ 15 MG IVP (22:52)
[2023-06-11] MEDS: vancomycin 1,500 MG/300 ML PIGGYBACK 200 MG IV (23:27)
[2023-06-11 23:56] LABS: Glucose Point of Care 99 mg/dL (70-110)
[2023-06-12 02:12] LABS: Glucose Point of Care 84 mg/dL (70-110)
[2023-06-12 03:43] VITALS: BP 111/70; PULSE 67; RESP 17; TEMP 36.6; O2SAT 96
[2023-06-12] MEDS: methadone 10 mg Tablet 50 MG PO (05:37)
[2023-06-12] MEDS: venlafaxine ER (24HR) 75 mg Capsule PO (05:38)
[2023-06-12 06:29] LABS: Glucose Point of Care 88 mg/dL (70-110)
[2023-06-12 07:09] VITALS: BP 109/69; PULSE 65; RESP 18; TEMP 36.4; O2SAT 95
[2023-06-12] MEDS: pantoprazole DR 40 mg Tablet PO (08:45)
[2023-06-12] MEDS: clotrimazole 1% cream 30 gm 1 APPLIC TOPICAL ×2 (08:45→16:46)
[2023-06-12] MEDS: atenolol 50 mg Tablet 100 MG PO ×2 (08:45→16:37)
[2023-06-12] MEDS: ketorolac 30 mg/mL INJ 15 MG IVP ×2 (09:36→16:37)
[2023-06-12] MEDS: cefepime 2,000 MG in sodium chloride 0.9% (plus) 50 ML 100 MG IV ×2 (09:37→20:10)
[2023-06-12] MEDS: ondansetron 2 mg/ML SDV 2 mL 4 MG IVP (09:37)
[2023-06-12 09:52] VITALS: PULSE 65; RESP 18; O2SAT 98
[2023-06-12 11:12] LABS: Glucose Point of Care 94 mg/dL (70-110)
[2023-06-12 11:53] LABS: Hematocrit 35.9 % (37.0-47.0); Hemoglobin 10.9 g/dL (11.5-15.3); Mean Corpuscular HGB Conc 30.4 g/dL (30.0-36.0); Mean Corpuscular Hemoglobin 29.2 pg (28.0-34.0); Mean Corpuscular Volume 96.2 fl (81-99); Mean Platelet Volume 10.4 fL (7.4-10.4); Platelet Count 247 10^3/cmm (130-400); Red Blood Count 3.73 10^6/uL (4.1-5.3); Red Cell Distribution Width 14.3 % (12.1-15.1)
[2023-06-12 12:45] LABS: Alanine Aminotransferase 18 U/L (0-33); Albumin Level 3.1 g/dL (3.5-5.2); Alkaline Phosphatase 86 U/L (35-105); Anion Gap 16.8 (5-19); Aspartate Amino Transferase 37 U/L (0-32); Blood Urea Nitrogen 17 mg/dL (8-23); Calcium 8.5 mg/dL (8.5-10.5); Carbon Dioxide 23 mmol/L (22-29); Chloride 98 mmol/L (98-107); Globulin 2.8 g/dL (1.3-4.6); Glomerular Filtration Rate 224.7 mL/min (90-130); Glucose 74 mg/dL (65-115); Osmolality Calculated 278 mOsm/kg (285-295); Potassium 3.8 mmol/L (3.5-5.1); Sodium 134 mmol/L (136-145); Total Bilirubin 0.6 mg/dL (0.15-1.2); Total Protein 5.9 g/dL (6.6-8.7)
[2023-06-12 12:50] LABS: Absolute Segmented Neutrophil 10.8 10/cmm (1.6-7.1); Band Neutrophils Absolute 1.6 10^3/cmm (0.0-1.2); Segmented Neutrophils 83 %; Slide Review Slide Review Perform; Total Cells Counted 100 (0-100)
[2023-06-12 12:51] LABS: Absolute Neutrophil 12.4 10^3/cmm (1.4-6.5); Eosinophils 0 %; Lymphocytes 2 %; Lymphocytes Absolute 0.3 10^3/cmm (1.2-3.4); Monocytes Absolute 0.3 10^3/cmm (0.1-0.6); Platelet Estimate Normal (Normal)
[2023-06-12 12:52] LABS: Dohle Bodies 2+
[2023-06-12 13:09] VITALS: BP 114/68; PULSE 64; RESP 18; TEMP 36.9; O2SAT 93
--- NOTE | 2023-06-12 14:37 | PM.PN ---
Subjective Subjective: Continues to have significant swelling extending from left foot to left buttock, no worse compared to yesterday. She is much more awake and alert today. She is able to have a conversation. Tmax 99.3 overnight. Leukocytosis improving from 20--> 13 today. Medications: Reviewed: Yes Vitals/I&O/Wt Last Vital Signs Temp 98.4 F 06/12/23 13:09 Pulse 64 06/12/23 13:09 Resp 18 06/12/23 13:09 BP 114/68 06/12/23 13:09 Pulse Ox 93 06/12/23 13:09 O2 Del Method Nasal Cannula 06/12/23 13:09 O2 Flow Rate 3 06/12/23 09:52 06/11/23 06/12/23 06/12/23 22:59 06:59 14:59 Intake Total 250 / 250 1880 / 1880 Output Total 800 / 800 Balance 250 / 250 -800 / -550 1880 / 1880 Weight last 48 hrs Weight 83.915 kg Physical Exam Narrative: General: No acute distress, AO x3 HEENT: PERRLA, pupils bilaterally equal and reactive, pallors not present Chest: Normal vesicular breath sounds, no added sounds, equal good air entry bilaterally CVS: S1-S2 regular, no murmurs, no tachycardia, no gallops, no rubs Abdomen: Soft, nontender, no organomegaly, bowel sounds present Neuro: No focal deficits, no facial deformity, AO x3, power 5/5 in all limbs Extremities: Left lower extremity with significant cellulitis affecting the entire leg including foot extending up to knee and hip. Marked area appears to be unchanged compared to yesterday's exam. Urinary Catheter Management: 2-way Urethral: Cath Placed During This Visit: yes Reason for Continuing Indwelling Catheter: Other Urinary Catheter Date of Insertion: 06/11/23 Urinary Catheter Time of Insertion: 15:50 Data 06/12/23 11:15 06/12/23 11:15 Micro: Microbiology 06/11/23 15:32 Blood Culture - Preliminary Blood SPECIMEN COLLECTED 06/11/23 14:59 Blood Culture - Preliminary Blood SPECIMEN COLLECTED A&P Assessment and plan (1) Left leg cellulitis: (2) Metabolic encephalopathy: Plan Patient presenting today with history of peripheral artery disease, chronic lower extremity swelling, rapidly progressing left lower extremity cellulitis. Had a fever of 102 Fahrenheit reported at home. Currently also with leukocytosis of 20,000. Started on empiric treatment with cefepime and vancomycin. Blood cultures taken prior to starting antibiotic therapy, currently no growth to date CT of the left knee shows severe diffuse subcutaneous soft tissue edema and skin thickening, no organized fluid collection or abscess identified. Old healed fractures were seen in the distal right femur and medial tibial plateau. Severe hypertrophic degenerative changes of knee joint. There is no underlying hardware within the joint itself. IV fluids normal saline at 100 cc/h. Metabolic encephalopathy related to acute infection most likely. Mental status is currently much improved. She is awake alert and oriented x3, able to carry on a conversation Fall precautions Intertrigo noted in bilateral groin folds, start clotrimazole ointment application twice daily. Insulin sliding scale for DM management Dvt ppx: lovenox Full code Resume carbohydrate consistent diet today. This documentation was created by [employer] dubbing machine operator software. Every effort was made to ensure accuracy of dubbing machine operator. Any obvious errors or omissions should be clarified with the author of the document. Attestations Medical Necessity Statement*: Needs continued inpatient admission for IV antibiotics, IV fluids, slowly improving mental status, cellulitis still present, no worse, but no signifcant improvement yet Coding Level of Care Code Acute Code for Chg Fwd Diagnoses Left leg cellulitis L03.116 Metabolic encephalopathy G93.41
[2023-06-12 16:28] VITALS: BP 130/73; PULSE 58; RESP 16; TEMP 36.3; O2SAT 91
[2023-06-12 16:38] LABS: Glucose Point of Care 97 mg/dL (70-110)
[2023-06-12] MEDS: vancomycin 1,500 MG/300 ML PIGGYBACK 200 MG IV (16:38)
[2023-06-12 19:53] VITALS: BP 101/67; PULSE 60; RESP 15; TEMP 36.3; O2SAT 92
[2023-06-12] MEDS: acetaminophen 325 mg Tablet 650 MG PO (20:11)
[2023-06-12] MEDS: enoxaparin 40 mg/0.4 mL Syringe SUBCUT (20:27)
[2023-06-12 21:00] LABS: Glucose Point of Care 146 mg/dL (70-110)
[2023-06-12] MEDS: insulin lispro 100 unit/1 mL SUBCUT (21:47)
[2023-06-13] VITALS (38 sets, daily range): BP systolic 96–155; BP diastolic 52–77; PULSE 59–77; RESP 12–24; TEMP 36.4–37.3; O2SAT 86–100
[2023-06-13] MEDS: vancomycin 1,500 MG/300 ML PIGGYBACK 200 MG IV ×2 (05:46→17:30)
[2023-06-13] MEDS: methadone 10 mg Tablet 50 MG PO (05:47)
[2023-06-13] MEDS: venlafaxine ER (24HR) 75 mg Capsule PO (05:47)
[2023-06-13 06:29] LABS: Glucose Point of Care 84 mg/dL (70-110)
[2023-06-13 07:33] LABS: Glucose Point of Care 91 mg/dL (70-110)
[2023-06-13] MEDS: cefepime 2,000 MG in sodium chloride 0.9% (plus) 50 ML 100 MG IV ×2 (07:55→20:25)
[2023-06-13] MEDS: ipratropium-albuterol 3 mL Neb INHALATION ×3 (07:58→20:02)
[2023-06-13] MEDS: pantoprazole DR 40 mg Tablet PO (08:33)
[2023-06-13] MEDS: clotrimazole 1% cream 30 gm 1 APPLIC TOPICAL ×2 (08:35→17:31)
--- NOTE | 2023-06-13 09:40 | CT_ITS ---
WS: [id number] CTA OF THE CHEST WITH PULMONARY EMBOLISM PROTOCOL TECHNIQUE: High-resolution contrast enhanced CTA of the chest with coronal and sagittal reformatted i mages with pulmonary embolism protocol. MIP images are also reviewed. CLINICAL INFORMATION: evaluate for PE COMPARISON: None. DLP: 487.[address] scans at [facility] use at least one of these dose optimization techniques: automated e xposure control; mA and/or kV adjustment per patient size (includes targeted exams where dose is matc hed to clinical indication); or iterative reconstruction. FINDINGS: Images degraded by breathing artifact. Patient unable to raise arms above head. Shallow inspiration. Elevation hemidiaphragm. Moderate chronic emphysematous changes. Compressive ate lectasis in the RIGHT greater than LEFT lower lobe. Slight hazy infiltrate or atelectasis in the LEFT upper lobe. Cardiomegaly. Normal caliber thoracic aorta. Aortic calcification. Proximal main pulmonary arteries are normal. Small filling defects in the RIGHT lower lobe segmental and subsegmental pulmonary arteries compatible with pulmonary embolus. Additional tiny filling defec ts in the RIGHT upper lobe subsegmental pulmonary arteries. No mediastinal or hilar lymphadenopathy. No axillary lymphadenopathy. Cardiomegaly. Coronary calcific ation. Hepatomegaly. Adrenal glands are normal. Thoracic kyphosis with ankylosis. Prior postoperative changes lower cervical and upper thoracic spine. CT/CT angio chest PE protcl [id number] IMPRESSION: 1. Small segmental and subsegmental filling defects in the RIGHT lower lobe co mpatible with pulmonary embolus. 2. Cardiomegaly with coronary calcification. 3. Slight bibasilar atelectasis. 4. Small amount of hazy infiltrate or atelectasis in the LEFT upper lobe. Notified Madelyn MD Singh at 06/13/2023 12:41 PM.
--- NOTE | 2023-06-13 09:43 | CT_ITS ---
WS: [id number] CT HEAD TECHNIQUE: Noncontrast CT of the head obtained from the skullbase to the vertex. CLINICAL INFORMATION: evaluate for stroke COMPARISON: 2020 DLP: 1175.[address] scans at [facility] use at least one of these dose optimization techniques: automated e xposure control; mA and/or kV adjustment per patient size (includes targeted exams where dose is matc hed to clinical indication); or iterative reconstruction. FINDINGS: No evidence of intracranial hemorrhage or mass effect. Ventricular system and basal cisterns are dupree nt. Mild small vessel changes with mild parenchymal volume loss. No extra-axial fluid collections. No evidence of mass or mass effect. Normal ludwig-white differentiation. Paranasal sinuses and mastoid air cells are well aerated. .Normal visualized soft tissues. Partially visualized postoperative changes cranial cervical fusion with low-lying cerebellar tonsils CT/CT head wo con* [id number] IMPRESSION: 1. No evidence of intracranial hemorrhage or mass effect. 2. Mild small vessel changes. Mild parenchymal volume loss. 3. No acute intracranial findings.
--- NOTE | 2023-06-13 09:44 | P.HP_ITS ---
Providers/Chief Complaint Admitting Physician: Madelyn Winters MD Primary Care Provider: Wilner Hdez DO Chief Complaint: LT Leg Pain History of Present Illness Polina Snyder is a 63 year old female Medications/Allergies Home Medications Medication Instructions Recorded Confirmed Last Taken Type aspirin 325 mg tablet 325 mg PO DAILY PRN Pain 08/17/21 06/11/23 06/11/23 History fluticasone propionate 50 2 spray intranasal DAILY PRN 11/08/21 06/11/23 Unknown History mcg/actuation nasal Allergy Symptoms spray,suspension ipratropium bromide 17 2 puff inhalation Q6H PRN unknown 11/08/21 06/11/23 Unknown History mcg/actuation HFA aerosol inhaler (Atrovent HFA) miscellaneous medical supply See Rx Instructions .Route 06/18/22 06/11/23 Unknown Rx .COMPLEX #1 ea potassium chloride 20 mEq 20 meq PO QAM #90 tabs 06/18/22 06/11/23 06/11/23 Rx tablet,extended release Nubia Lift #1 ea 12/25/22 06/11/23 Unknown Rx silver sulfadiazine 1 % topical 1 applic topical BID #20 grams 03/13/23 06/11/23 Unknown Rx cream (Silvadene) Hospital bed #1 ea 03/22/23 06/11/23 Unknown Rx ketoconazole 2 % shampoo See Rx Instructions .Route 06/10/23 06/11/23 Unknown Rx .COMPLEX #120 mL L.acidophil-L.casei-B.bifid-B.longum-FOS 1 cap PO DAILY PRN unknown 06/11/23 06/11/23 Unknown History 2 billion cell-50 mg capsule (Probiotic Blend) albuterol sulfate 90 mcg/actuation 2 puff inhalation Q6H PRN 06/11/23 06/11/23 Unknown History aerosol inhaler Shortness Of Breath amlodipine 10 mg tablet 10 mg PO QAM 06/11/23 06/11/23 06/10/23 History atenolol 100 mg tablet 100 mg PO BID 06/11/23 06/11/23 06/10/23 History baclofen 20 mg tablet 20 mg PO BID 06/11/23 06/11/23 06/11/23 History buspirone 5 mg tablet 5 mg PO BID 06/11/23 06/11/2306/11/23 History fenofibrate micronized 200 mg 200 mg PO BEDTIME 06/11/23 06/11/23 06/10/23 History capsule furosemide 40 mg tablet 40 mg PO DAILY PRN Edema 06/11/23 06/11/23 Unknown History gabapentin 600 mg tablet 1,200 mg PO BID 06/11/23 06/11/23 06/11/23 History lidocaine-prilocaine 2.5 %-2.5 % 1 applic topical BID PRN unknown 06/11/23 06/11/23 Unknown History topical cream metformin 500 mg tablet,extended 500 mg PO QAM 06/11/23 06/11/23 Unknown History release 24hr methadone 40 mg soluble tablet 50 mg PO QAM 06/11/23 06/11/23 06/11/23 History miconazole nitrate 2 % vaginal See Rx Instructions .Route .COMPLEX 06/11/23 06/11/23 Unknown History cream (Monistat 7) pantoprazole 40 mg tablet,delayed 40 mg PO QPM 06/11/23 06/11/23 06/10/23 Hist ory release prochlorperazine maleate 10 mg 10 mg PO BID PRN Nausea And 06/11/23 06/11/23 Unk nown History tablet (Compazine) Vomiting temazepam 15 mg capsule 15 mg PO BEDTIME PRN sleep 06/11/23 06/11/23 Unknown History venlafaxine 75 mg capsule,extended 75 mg PO QAM 06/11/23 06/11/23 Unknown History release 24 hr Allergies Allergy/AdvReac Type Severity Reaction Status Date / Time adhesive tape Allergy rash Verified 06/11/23 16:38 amitriptyline Allergy Unknown Verified 06/11/23 16:38 nitrofurantoin Allergy ADR-Vomitin Verified 06/11/23 16:38 [From Macrobid] g Sulfa (Sulfonamide Allergy Itch all Verified 06/11/23 16:38 Antibiotics) over PFSH Acute PFSH: Medical History Anemia Cellulitis Cervical post-laminectomy syndrome [id number] disease-like deformity of foot right Chronic pain Closed femur fracture Closed fracture of left distal femur Degenerative joint disease of left knee Depression with anxiety Diabetes mellitus, type II Diabetic neuropathy associated with type 2 diabetes mellitus Diastolic CHF History of cardioversion history of SVT vs for other arrhythmia History of DVT of lower extremity post-operative Hyperlipidemia Hypertension Hypertension Lumbar radiculopathy Lung cancer Methamphetamine use Substance abuse Torticollis, acquired Has had good results with Botox in the past Venous stasis ulcer Surgical History History of arthroplasty of left knee (~1976) History of partial hysterectomy Hx of appendectomy Hx of dilation and curettage Hx of neck surgery x 2, posterior laminectomy and cervical fusion with hardware in place, limi tressa ROM neck at baseline Hx of total knee replacement (~2010) Right Hx of tubal ligation Family History Family/Other Hypertension Depression Anxiety Diabetes Father Aneurysm Mother Hypertension Brother Diabetes Sister Diabetes Social History Smoking and tobacco status: current every day smoker Alcohol intake: never Substance/Drug Use: current Substance/Drug use frequency: few times a month Marital status: Additional social history: unknown if patient continues to smoke, documented to smoke previously Female Reproductive History: Spontaneous abortions: No Vitals/I&O/Wt Last Vital Signs Temp 97.6 F 06/13/23 08:00 Pulse 70 06/13/23 08:00 Resp 18 06/13/23 08:00 BP 100/52 06/13/23 08:00 Pulse Ox 92 06/13/23 08:00 O2 Del Method Nasal Cannula 06/13/23 08:00 O2 Flow Rate 3 06/13/23 07:58 06/12/23 06/13/23 06/13/23 22:59 06:59 14:59 Intake Total 780 / 2660 350 / 350 Output Total 625 / 625 175 / 800 Balance 155 / 2035 -175 / 1860 350 / 350 Weight last 48 hrs Weight 83.915 kg Physical Exam Urinary Catheter Management: 2-way Urethral: Cath Placed During This Visit: yes Reason for Continuing Indwelling Catheter: Other Urinary Catheter Date of Insertion: 06/11/23 Urinary Catheter Time of Insertion: 15:50 Data 06/12/23 11:15 06/12/23 11:15 Micro: Microbiology 06/11/23 15:32 Blood Culture - Preliminary Blood NEGATIVE TO DATE 06/11/23 14:59 Blood Culture - Preliminary Blood NEGATIVE TO DATE Coding Level of Care Code Acute Code for Chg Fwd Diagnoses
[2023-06-13 09:46] LABS: ABG PH Result 7.32 (7.35-7.45); Arterial Blood Gas Hematocrit 35.1 % (37-47); Base Excess ABG 0.5 mmol/L (-2.0-2.0); Blood Gas Allen Test Pos; Blood Gas Sample Site Radial, right; Blood Gas Sample Type Arterial; HCO3 ABG 27.3 mmol/L (22-26); Oxygen Device NC; PO2 ABG 67.2 mmHg (80.0-100.0)
[2023-06-13] MEDS: FUROsemide 10 mg/mL SDV 4mL 40 MG IVP (10:07)
--- NOTE | 2023-06-13 10:27 | PC.NURSE ---
pt was not wearing nasal cannula during bedside report. placed back on pt. pt was found during morning med pass without nasal cannula again. replaced on pt. once oxygen was at 90% on 2L nc, assessed orientation of pt to be a&ox1 to self only. report from NOC nurse was a&ox4. pt had fine crackles to bilat posterior bases. dr notified of changes. one time lasix 40mg ivp ordered, ivf order stopped. when dr rounded on pt, pt was found to have nasal cannula off again, was reported purple and not orientated. stat abg showed compensated metabolic acidosis with hypoxia. dr order to tx pt to ICU. report called to Eloise VILLAFANA at [phone]. pt taken by bed.
[2023-06-13] MEDS: iohexol 350 mg/mL 500 mL Btl (per mL) IV (10:46)
--- NOTE | 2023-06-13 10:58 | PC.NURSE ---
Pt was brought to ICU via bed on 5L NC and is A&O to self only. Left leg is red, swollen and the skin is flaking. There is a deep tissue injury to left heel with an optifoam in place. Pt has 3 rings, 3 earrings, 1 bracelet and 2 necklaces a night gown, socks and a phone assembler fishing floats.
[2023-06-13 11:26] LABS: Basophils % 0.3 %; Eosinophils # 0.2 10^3/uL (0.0-0.8); Eosinophils % 1.3 %; Hematocrit 37.5 % (37.0-47.0); Hemoglobin 11.4 g/dL (11.5-15.3); Lymphocytes # 0.8 10^3/uL (0.8-4.8); Lymphocytes % 6.7 %; Mean Corpuscular HGB Conc 30.4 g/dL (30.0-36.0); Mean Corpuscular Hemoglobin 28.6 pg (28.0-34.0); Monocytes # 1.1 10^3/uL (0.2-0.9); Monocytes % 9.1 %; Neutrophils # 9.62 10^3/uL (1.8-7.7); Neutrophils % 82.1 %; Nucleated Red Blood Cells % 0 %; Platelet Count 240 10^3/cmm (130-400); Red Blood Count 3.99 10^6/uL (4.1-5.3); Red Cell Distribution Width 14.1 % (12.1-15.1); White Blood Count 11.7 10^3/uL (4.0-10.0)
[2023-06-13 11:43] LABS: Lactate (Lactic Acid level) 0.7 mmol/L (0.5-2.2)
[2023-06-13 11:51] LABS: Alanine Aminotransferase 18 U/L (0-33); Albumin Level 3.1 g/dL (3.5-5.2); Alkaline Phosphatase 97 U/L (35-105); Anion Gap 14.5 (5-19); Aspartate Amino Transferase 26 U/L (0-32); Blood Urea Nitrogen 16 mg/dL (8-23); Calcium 8.6 mg/dL (8.5-10.5); Carbon Dioxide 26 mmol/L (22-29); Chloride 96 mmol/L (98-107); Globulin 2.9 g/dL (1.3-4.6); Glomerular Filtration Rate 161.2 mL/min (90-130); Glucose 91 mg/dL (65-115); Osmolality Calculated 277 mOsm/kg (285-295); Potassium 3.5 mmol/L (3.5-5.1); Sodium 133 mmol/L (136-145); Total Bilirubin 0.5 mg/dL (0.15-1.2)
[2023-06-13 12:16] LABS: Glucose Point of Care 87 mg/dL (70-110)
[2023-06-13] MEDS: dexmedetomidine 400 MCG in sodium chloride 0.9% (100 ml) 100 ML IV (13:34)
--- NOTE | 2023-06-13 14:25 | PM.PN ---
Subjective Subjective: Patient was seen and examined at around 9:30 AM today. Upon walking into the room she was noted to be cyanosed O2 sat 78%, she was confused and delirious, kept repeating I am sorry . She was not able to be reoriented. This is a significant change from yesterday when patient was alert awake oriented, able to carry on a conversation. She did not have her oxygen on her and pernursing report had been taking off her oxygen during the course of the night. ABG was done which showed evidence of hypoxic hypercapnic respiratory failure. She was transferred to ICU and and ordered for BiPAP ventilation. CT head did not show any evidence of acute intracranial hemorrhage or mass effect. CTA of her chest showed small segmental and subsegmental filling defects in the right lower lobe concerning for PE. Medications: Reviewed: Yes Vitals/I&O/Wt Last Vital Signs Temp 97.6 F 06/13/23 08:00 Pulse 68 06/13/23 13:20 Resp 17 06/13/23 13:00 BP 139/69 06/13/23 12:00 Pulse Ox 95 06/13/23 13:20 O2 Del Method Nasal Cannula 06/13/23 12:58 O2 Flow Rate 5 06/13/23 12:58 FiO2 40 06/13/23 13:20 06/12/23 06/13/23 06/13/23 22:59 06:59 14:59 Intake Total 780 / 2660 400 / 400 Output Total 625 / 625 175 / 800 Balance 155 / 2035 -175 / 1860 400 / 400 Weight last 48 hrs Weight 83.915 kg Physical Exam Narrative: General: Acute distress when seen at 9:30pm , cyanosed, 02 sat 74% HEENT: PERRLA, pupils bilaterally equal and reactive, pallors not present Chest: wheezing to auscultation B/L CVS: S1-S2 regular, no murmurs, no tachycardia, no gallops, no rubs Abdomen: Soft, nontender, no organomegaly, bowel sounds present Neuro: disoriented, keeps mumbling Im sorry , does not turn sides, not following any commands Urinary Catheter Management: 2-way Urethral: Cath Placed During This Visit: yes Reason for Continuing Indwelling Catheter: Other Urinary Catheter Date of Insertion: 06/11/23 Urinary Catheter Time of Insertion: 15:50 Data 06/13/23 11:16 06/13/23 11:16 Micro: Microbiology 06/11/23 15:32 Blood Culture - Preliminary Blood NEGATIVE TO DATE 06/11/23 14:59 Blood Culture - Preliminary Blood NEGATIVE TO DATE A&P Assessment and plan (1) Left leg cellulitis: Patient admitted to the hospital on June 11, 2023 with chief complaints of left leg cellulitis and altered mental status. She has been on treatment with cefepime and vancomycin following which her left leg is starting to look improved. Cellulitis is improving. (2) AMS (altered mental status): Initially during the course of admission her mental status improved significantly within the first 24 hours. She was dehydrated on admission and it appeared she had metabolic encephalopathy from underlying infection and dehydration. With antibiotics and IV fluids on June 12, 2023 she was alert awake oriented and able to hold a conversation. On the morning of June 13, 2023 she was found to be hypoxic, O2 sats down 73% on room air was found cyanosed at rounds. She had not been reportedly wearing her oxygen during the course of the night and had been taking it off this morning as well. Oxygen saturation improved to 93% after being placed on 5 L/min supplemental O2. She was delirious and kept repeating I am sorry CT head was negative for any acute intracranial events. ABG showed hypoxic hypercapnic respiratory failure Likely that her altered mental status is currently related to hypoxia, hypercapnia, She was moved to ICU Due to sudden change in her respiratory status, CTA of the chest was performed which showed right-sided PE. (3) Respiratory failure with hypoxia and hypercapnia: Likely multifactorial related to PE, COPD exacerbation given bilateral wheezing on exam Started on dexamethasone 6 mg IV every 24 hours DuoNeb inhalation to continue every 6 hours, add budesonide inhalation Ordered for BiPAP after moving to ICU (4) Pulmonary embolism: Started on Lovenox 1 mg/kg every 12 hours (5) COPD (chronic obstructive pulmonary disease): DuoNeb and budesonide inhalation scheduled Start steroids dexamethasone 6 mg IV every 24 hours BiPAP ventilation Repeat ABG in the afternoon Attestations Medical Necessity Statement*: continued admission for iv antibiotics, PE, respiratory distress, moved to ICU today Coding Level of Care Code Critical Care >/= 30 minutes Diagnoses Left leg cellulitis L03.116 AMS (altered mental status) R41.82 Respiratory failure with hypoxia and hypercapnia J96.91; J96.92 Pulmonary embolism I26.99 COPD (chronic obstructive pulmonary disease) J44.9
--- NOTE | 2023-06-13 14:48 | USCV_ITS ---
Polina Snyder Age: 63 Gender: F : 1960 Exam Date: 06/13/2023 14:59 Ordering Phys: Madelyn Winters MD Technologist: Juan R Muñoz Exam Location: [facility] – [place] Indication: ? ef BP: / HR: 68 Rhythm: Sinus Technical Quality: Adequate MEASUREMENTS (Male / Female) Normal Values 2D ECHO LV Diastolic Diameter PLAX 3.1 cm 4.2 - 5.9 / 3.9 - 5.3 cm LV Systolic Diameter PLAX 2.6 cm IVS Diastolic Thickness 1.2 cm 0.6 - 1.0 / 0.6 - 0.9 cm IVS Systolic Thickness 1.8 cm LVPW Diastolic Thickness 1.1 cm 0.6 - 1.0 / 0.6 - 0.9 cm LVPW Systolic Thickness 2.0 cm LVOT Diameter 2.0 cm LV Ejection Fraction 2D Teich 38.0 % LV Ejection Fraction MOD 2C 51.6 % LV Ejection Fraction 2C AL 50.2 % LA Diameter 4.2 cm M-MODE Aortic Annulus Diameter 3.6 cm LA Ao Ratio MM 1.2 DOPPLER AV Peak Velocity 118.0 cm/s LVOT Peak Velocity 112.0 cm/s AV Area Cont Eq vti 3.4 cm squared AV Area Cont Eq pk 3.1 cm squared MV Area PHT 2.8 cm squared Mitral E to A Ratio 0.8 MV E' Velocity 61.5 cm/s Mitral E to MV E' Ratio 10.8 Mitral E to LV E' Lateral Ratio 12.2 Mitral E to LV E' Septal Ratio 9.8 TR Peak Velocity 213.3 cm/s TR Peak Gradient 18.2 mmHg TV Peak E Velocity 61.0 cm/s Right Atrial Pressure 3.0 mmHg Pulmonary Artery Systolic Pressu 21.2 mmHg PV Peak Velocity 98.0 cm/s RV Acceleration Time 0.1 s FINDINGS Left Ventricle Normal left ventricular size and systolic function, EF 58 %. No regional wall motion abnormalities. Mild left ventricular hypertrophy. Right Ventricle Normal RV size with slightly diminished ejection fraction Right Atrium Mildly increased right atrial size. Left Atrium Mildly increased left atrial size. Mitral Valve No gross abnormalities noted Aortic Valve Thickened aortic valve. Tricuspid Valve Tricuspid valve not well visualized. Pulmonic Valve Pulmonic valve not well visualized. Pericardium No pericardial effusion. Aorta Normal aortic annulus size. IVC Inferior vena cava not visualized. CONCLUSIONS Normal left ventricular size and systolic function, EF 58 %. No regional wall motion abnormalities. Mild left ventricular hypertrophy. (Echo contrast - Optison was used to delineate the endocardium and to estimate the LV ejection fraction) Normal RV size with a slightly diminished ejection fraction. Mild biatrial enlargement Thickened aortic valve. No pericardial effusion Technically difficult study. Dr Pat Whitley MD FACC (Electronically Signed) Final Date: 13 June 2023 16:45 S
[2023-06-13] MEDS: perflutren protein-a microsphr 0.22 mg/mL SDV 3 mL IV (15:34)
[2023-06-13 15:44] LABS: Troponin T (5th) Once 12 ng/L (0-10)
[2023-06-13] MEDS: dexamethasone 4 mg/mL INJ 6 MG IVP (15:58)
[2023-06-13] MEDS: enoxaparin 100 mg/mL Syringe 80 MG SUBCUT (15:58)
[2023-06-13 16:08] LABS: ABG PCO2 49.5 mmHg (35-45); ABG PH Result 7.37 (7.35-7.45); Arterial Blood Gas Hematocrit 35.2 % (37-47); Base Excess ABG 2.6 mmol/L (-2.0-2.0); Blood Gas Allen Test Pos; Blood Gas Operator Identificat CAK; Blood Gas Sample Site Radial, left; Blood Gas Sample Type Arterial; HCO3 ABG 28.6 mmol/L (22-26); Oxygen Device BIPAP; PO2 ABG 74.2 mmHg (80.0-100.0)
[2023-06-13 16:18] LABS: Glucose Point of Care 104 mg/dL (70-110)
[2023-06-13] MEDS: budesonide 0.5 mg/2 mL Neb INHALATION (20:03)
[2023-06-13] MEDS: dexmedetomidine 400 MCG in sodium chloride 0.9% (100 ml) 100 ML 10.91 MCG IV (20:05)
[2023-06-13 20:28] LABS: Glucose Point of Care 140 mg/dL (70-110)
[2023-06-14] VITALS (54 sets, daily range): BP systolic 102–159; BP diastolic 40–80; PULSE 51–84; RESP 13–29; TEMP 36.4–36.6; O2SAT 87–99
[2023-06-14] MEDS: enoxaparin 100 mg/mL Syringe 80 MG SUBCUT ×2 (01:44→12:28)
[2023-06-14] MEDS: ipratropium-albuterol 3 mL Neb INHALATION ×4 (03:37→20:12)
[2023-06-14 03:55] LABS: Basophils # 0.1 10^3/uL (0.0-0.1); Basophils % 0.6 %; Eosinophils % 0.1 %; Hematocrit 36.2 % (37.0-47.0); Hemoglobin 11.4 g/dL (11.5-15.3); Lymphocytes # 1.1 10^3/uL (0.8-4.8); Lymphocytes % 6.9 %; Mean Corpuscular HGB Conc 31.5 g/dL (30.0-36.0); Mean Corpuscular Hemoglobin 29.5 pg (28.0-34.0); Mean Corpuscular Volume 93.8 fl (81-99); Mean Platelet Volume 10.5 fL (7.4-10.4); Monocytes # 0.8 10^3/uL (0.2-0.9); Monocytes % 4.8 %; Neutrophils # 13.78 10^3/uL (1.8-7.7); Neutrophils % 86.6 %; Nucleated Red Blood Cells % 0 %; Platelet Count 248 10^3/cmm (130-400); Red Blood Count 3.86 10^6/uL (4.1-5.3); Red Cell Distribution Width 13.9 % (12.1-15.1); White Blood Count 15.9 10^3/uL (4.0-10.0)
[2023-06-14 04:22] LABS: Vancomycin Trough 12.9 ug/mL (10-15)
[2023-06-14 04:28] LABS: Alanine Aminotransferase 17 U/L (0-33); Alkaline Phosphatase 107 U/L (35-105); Aspartate Amino Transferase 21 U/L (0-32); Blood Urea Nitrogen 13 mg/dL (8-23); Calcium 8.7 mg/dL (8.5-10.5); Carbon Dioxide 25 mmol/L (22-29); Chloride 96 mmol/L (98-107); Glomerular Filtration Rate 224.7 mL/min (90-130); Glucose 182 mg/dL (65-115); NT Pro B Type Natriuretic Pept 1583 pg/mL (0-125); Osmolality Calculated 289 mOsm/kg (285-295); Sodium 137 mmol/L (136-145); Total Bilirubin 0.4 mg/dL (0.15-1.2)
[2023-06-14 04:31] LABS: Anion Gap 19.9 (5-19); Potassium 3.9 mmol/L (3.5-5.1)
[2023-06-14] MEDS: vancomycin 1,500 MG/300 ML PIGGYBACK 200 MG IV (04:40)
[2023-06-14] MEDS: venlafaxine ER (24HR) 75 mg Capsule PO (05:28)
[2023-06-14] MEDS: dexmedetomidine 400 MCG in sodium chloride 0.9% (100 ml) 100 ML 15.27 MCG IV ×2 (05:28→12:55)
[2023-06-14 08:01] LABS: Glucose Point of Care 187 mg/dL (70-110)
[2023-06-14] MEDS: budesonide 0.5 mg/2 mL Neb INHALATION ×2 (08:08→20:12)
[2023-06-14] MEDS: insulin lispro 100 unit/1 mL SUBCUT ×4 (08:59→20:35)
[2023-06-14] MEDS: cefepime 2,000 MG in sodium chloride 0.9% (plus) 50 ML 100 MG IV ×2 (08:59→20:35)
[2023-06-14] MEDS: clotrimazole 1% cream 30 gm 1 APPLIC TOPICAL ×2 (09:00→17:48)
[2023-06-14] MEDS: pantoprazole DR 40 mg Tablet PO (09:00)
[2023-06-14] MEDS: atenolol 50 mg Tablet 100 MG PO (09:00)
--- NOTE | 2023-06-14 11:25 | PC.SOCIAL ---
IMM update IMM updated with patient's fiance. Copy Pg 2 placed at bedside. Verbalized an understanding. Initialled, dated, timed, and placed in chart.
[2023-06-14 11:43] LABS: Glucose Point of Care 169 mg/dL (70-110)
[2023-06-14] MEDS: acetaminophen 325 mg Tablet 650 MG PO (15:07)
[2023-06-14] MEDS: dexamethasone 4 mg/mL INJ 6 MG IVP (15:08)
--- NOTE | 2023-06-14 15:09 | PM.PN ---
Subjective Subjective: Mental status is back to baseline today. She is alert awake oriented x3. Currently on 6 L/min supplemental O2 via nasal cannula. Still needing Precedex 0.7, being titrated down. Medications: Reviewed: Yes Vitals/I&O/Wt Last Vital Signs Temp 98 F 06/14/23 13:00 Pulse 61 06/14/23 14:20 Resp 20 H 06/14/23 14:20 BP 119/48 06/14/23 13:00 Pulse Ox 92 06/14/23 14:20 O2 Del Method Nasal Cannula 06/14/23 14:20 O2 Flow Rate 6 06/14/23 14:20 FiO2 40 06/14/23 10:00 06/14/23 06/14/23 06/14/23 06:59 14:59 22:59 Intake Total 104.000 / 714.018 8786 / 1134 Output Total 100 / 3200 Balance 4.000 / -2325.605 1134 / 1134 Physical Exam Narrative: General: No acute distress, AO x3 HEENT: PERRLA, pupils bilaterally equal and reactive, pallors not present Chest: Normal vesicular breath sounds, no added sounds, equal good air entry bilaterally CVS: S1-S2 regular, no murmurs, no tachycardia, no gallops, no rubs Abdomen: Soft, nontender, no organomegaly, bowel sounds present Neuro: No focal deficits, no facial deformity, AO x3, power 5/5 in all limbs Extremities: Improving cellulitis over left lower extremity, though still continues to have significant erythema over the left thigh and knee. No fluctuance encountered. Knee appears to be overall deformed due to severe arthritis. Urinary Catheter Management: 2-way Urethral: Cath Placed During This Visit: yes Reason for Continuing Indwelling Catheter: Accurate Measurement of Urinary Output in Critically Ill Patients Urinary Catheter Date of Insertion: 06/11/23 Urinary Catheter Time of Insertion: 15:50 Data 06/14/23 03:45 06/14/23 03:45 A&P Assessment and plan (1) Left leg cellulitis: Patient admitted to the hospital on June 11, 2023 with chief complaints of left leg cellulitis and altered mental status. She has been on treatment with cefepime and vancomycin following which her left leg is starting to look improved. Cellulitis is improving.changes nearly resolved over foot and calf. Continues to have redness around the left knee and upper thigh. Leukocytosis at 15.9 CT left knee without obvious signs of septic arthritis (2) AMS (altered mental status): Initially during the course of admission her mental status improved significantly within the first 24 hours. She was dehydrated on admission and it appeared she had metabolic encephalopathy from underlying infection and dehydration. With antibiotics and IV fluids on June 12, 2023 she was alert awake oriented and able to hold a conversation. On the morning of June 13, 2023 she was found to be hypoxic, O2 sats down 73% on room air was found cyanosed at rounds. She had not been reportedly wearing her oxygen during the course of the night. Oxygen saturation improved to 93% after being placed on 5 L/min supplemental O2. ABG showed hypoxic hypercapnic respiratory failure CTA shwed PE for which she was started on full dose lovenox. She was moved to the ICU. Needed to be on BiPAP intermittently on June 13, 2023 Respiratory status is now currently much improved. Currently on nasal cannula at 6 L/min, she is alert awake and oriented x3 (3) Respiratory failure with hypoxia and hypercapnia: Likely multifactorial related to PE, COPD exacerbation given bilateral wheezing on exam Started on dexamethasone 6 mg IV every 24 hours DuoNeb inhalation to continue every 6 hours, add budesonide inhalation Ordered for BiPAP after moving to ICU (4) Pulmonary embolism: Started on Lovenox 1 mg/kg every 12 hours (5) COPD (chronic obstructive pulmonary disease): DuoNeb and budesonide inhalation scheduled Start steroids dexamethasone 6 mg IV every 24 hours BiPAP ventilation Repeat ABG in the afternoon Attestations Medical Necessity Statement*: Ongoing need for IV antibiotics, full dose anticoagulation, monitoring of respiratory status, currently on Precedex infusion which is being titrated down, IV steroids for COPD exacerbation Coding Level of Care Code Critical Care >/= 30 minutes Diagnoses Left leg cellulitis L03.116 AMS (altered mental status) R41.82 Respiratory failure with hypoxia and hypercapnia J96.91; J96.92 Pulmonary embolism I26.99 COPD (chronic obstructive pulmonary disease) J44.9
[2023-06-14] MEDS: sennosides-docusate Tablet 1 TAB PO (17:48)
[2023-06-14] MEDS: vancomycin 2,000 MG/400 ML PIGGYBACK 200 MG IV (17:48)
[2023-06-14 17:58] LABS: Glucose Point of Care 258 mg/dL (70-110)
[2023-06-14] MEDS: lanolin oint 7 gm 1 APPLIC TOPICAL (18:34)
[2023-06-14 20:40] LABS: Glucose Point of Care 233 mg/dL (70-110)
[2023-06-14] MEDS: dexmedetomidine 400 MCG in sodium chloride 0.9% (100 ml) 100 ML 10.91 MCG IV (21:12)
[2023-06-15] VITALS (44 sets, daily range): BP systolic 128–188; BP diastolic 49–88; PULSE 47–88; RESP 14–31; TEMP 36.4–36.6; O2SAT 85–98
[2023-06-15] MEDS: enoxaparin 100 mg/mL Syringe 80 MG SUBCUT ×2 (00:54→13:13)
--- NOTE | 2023-06-15 01:29 | PC.PHAR ---
VANCOMYCIN TROUGH SCHEDULED FOR 06/16/23 AT 0400. PLEASE HOLD 0500 DOSE UNTIL DRAWN. WILL CONTINUE TO FOLLOW. THANK YOU, DIANA JEFFERSON H
[2023-06-15] MEDS: ipratropium-albuterol 3 mL Neb INHALATION ×4 (03:23→23:10)
[2023-06-15] MEDS: vancomycin 2,000 MG/400 ML PIGGYBACK 200 MG IV ×2 (04:41→17:19)
[2023-06-15] MEDS: venlafaxine ER (24HR) 75 mg Capsule PO (06:13)
[2023-06-15 07:53] LABS: Glucose Point of Care 171 mg/dL (70-110)
[2023-06-15] MEDS: budesonide 0.5 mg/2 mL Neb INHALATION ×2 (07:58→19:16)
[2023-06-15] MEDS: cefepime 2,000 MG in sodium chloride 0.9% (plus) 50 ML 100 MG IV ×2 (08:02→20:38)
[2023-06-15] MEDS: insulin lispro 100 unit/1 mL SUBCUT ×2 (08:02→11:40)
[2023-06-15] MEDS: atenolol 50 mg Tablet 100 MG PO ×2 (08:03→17:48)
[2023-06-15] MEDS: sennosides-docusate Tablet 1 TAB PO (08:03)
[2023-06-15] MEDS: pantoprazole DR 40 mg Tablet PO (08:03)
[2023-06-15] MEDS: clotrimazole 1% cream 30 gm 1 APPLIC TOPICAL ×2 (08:04→17:49)
--- NOTE | 2023-06-15 10:28 | USR_ITS ---
PROCEDURE INFORMATION: Exam: US Left Non-Vascular Joint or Other Extremity Structure Exam date and time: 06/15/2023 3:36 PM Age: 63 years old Clinical indication: Cellulitis; Upper leg; Left; Additional info: Evaluate for interval development of abscess over upper thig TECHNIQUE: Imaging protocol: Left US joint or other nonvascular extremity structure or structures. Real-time ultrasound with image documentation. Limited study. Exam focused on the lower extremity in the region of clinical interest. COMPARISON: [id number] 06/11/2023 4:34 PM FINDINGS: Soft tissues: Images were obtained of the soft tissues of the upper left thigh or area of interest. An ill-defined or irregular shaped hypoechoic focus is seen measuring 3.3 x 1.6 x 1.5 cm, approximally 1.4 cm below the skin surface. This is labeled area interest/area of concern. Increased flow is seen around this region. US/US soft tissue/extremity [id number] IMPRESSION: Hypoechoic focus with adjacent increased flow is seen over the area of interest or area of concern within the left thigh, measuring 3.3 x 1.6 x 1.5 cm and approximally 1.4 cm deep to the skin surface. This likely represents developing abscess with the clinical history.
[2023-06-15 11:21] LABS: Glucose Point of Care 157 mg/dL (70-110)
[2023-06-15] MEDS: ketorolac 30 mg/mL INJ 15 MG IVP (11:39)
--- NOTE | 2023-06-15 14:49 | P.PN_ITS ---
Subjective Subjective: Patient remains alert awake oriented. Trending to be hypertensive today. Wishes to be resumed back on her methadone she has pain. Left lower extremity cellulitis is improving except for left upper thigh where there appeared to be persisting changes. Ultrasound has been ordered.remains on precedex 0.2, attempts to wean down result in significant anxiety. Medications: Reviewed: Yes Vitals/I&O/Wt Last Vital Signs Temp 97.8 F 06/15/23 14:00 Pulse 60 06/15/23 14:34 Resp 22 H 06/15/23 14:00 BP 165/67 06/15/23 14:00 Pulse Ox 91 06/15/23 14:00 O2 Del Method Nasal Cannula 06/15/23 14:00 O2 Flow Rate 6 06/15/23 14:00 FiO2 40 06/15/23 00:00 06/14/23 06/15/23 06/15/23 22:59 06:59 14:59 Intake Total 1054.000 / 2188.000 92.264 / 2280.264 810 / 810 Output Total 650 / 650 900 / 1550 Balance 404.000 / 1538.000 -807.736 / 730.264 810 / 810 Physical Exam Narrative: General: No acute distress, AO x3 HEENT: PERRLA, pupils bilaterally equal and reactive, pallors not present Chest: Normal vesicular breath sounds, no added sounds, equal good air entry bilaterally CVS: S1-S2 regular, no murmurs, no tachycardia, no gallops, no rubs Abdomen: Soft, nontender, no organomegaly, bowel sounds present Neuro: No focal deficits, no facial deformity, AO x3, power 5/5 in all limbs Ext: LLE cellulitis continues to improve. left upper thigh less tender however concerned that she may be developing a soft tissue abscess over left upper thigh. Urinary Catheter Management: 2-way Urethral: Cath Placed During This Visit: yes Reason for Continuing Indwelling Catheter: Accurate Measurement of Urinary Outpu t in Critically Ill Patients Urinary Catheter Date of Insertion: 06/11/23 Urinary Catheter Time of Insertion: 15:50 Data 06/14/23 03:45 06/14/23 03:45 A&P Assessment and plan (1) Left leg cellulitis: Patient admitted to the hospital on June 11, 2023 with chief complaints of left leg cellulitis and altered mental status. She has been on treatment with cefepime and vancomycin following which her left leg is starting to look improved. Cellulitis is improving.changes nearly resolved over foot and calf. Continues to have redness around the left knee and upper thigh. check soft tissue US to check for interim development of abscess. CT left knee without signs of septic arthritis, advanced changes of septic arthritis (2) AMS (altered mental status): Now resolved Mentation is back at baseline Suspect that her AMS was related to hypoxia on June 13 her O2 sats down 73% on room air was found cyanosed at rounds. ABG showed hypoxic hypercapnic respiratory failure CTA shwed PE for which she was started on full dose lovenox. She was moved to the ICU. Needed to be on BiPAP intermittently on June 13, 2023 Respiratory status is now currently much improved. Currently on nasal cannula at 6 L/min, she is alert awake and oriented x3 Has significant anxiety, currently on Precedex attempting to be titrated down. resume methadone, suspect withdrawal may be contributing to currently persisting anxiety, continue venlafaxine, resume trazodone at night time prn. Continue to hold gabapentin for now. (3) Respiratory failure with hypoxia and hypercapnia: Likely multifactorial related to PE, COPD exacerbation given bilateral wheezing on exam D/c dexamethasone DuoNeb inhalation to continue every 6 hours, budesonide inhalation Ordered for BiPAP after moving to ICU (4) Pulmonary embolism: Started on Lovenox 1 mg/kg every 12 hours (5) COPD (chronic obstructive pulmonary disease): DuoNeb and budesonide inhalation scheduled BiPAP ventilation prn Attestations Medical Necessity Statement*: Continue attempts to wean off Precedex. Resume home medications as above , continue iv abx. US soft tissue Coding Level of Care Code Acute Code for Chg Fwd Diagnoses Left leg cellulitis L03.116 AMS (altered mental status) R41.82 Respiratory failure with hypoxia and hypercapnia J96.91; J96.92 Pulmonary embolism I26.99 COPD (chronic obstructive pulmonary disease) J44.9
[2023-06-15] MEDS: methadone 10 mg Tablet 40 MG PO (15:11)
[2023-06-15] MEDS: amlodipine 10 mg Tablet PO (15:11)
[2023-06-15 17:39] LABS: Glucose Point of Care 89 mg/dL (70-110)
[2023-06-15] MEDS: BuSPIRONE 10 mg Tablet 5 MG PO (17:48)
[2023-06-15 21:15] LABS: Glucose Point of Care 105 mg/dL (70-110)
[2023-06-16] VITALS (51 sets, daily range): BP systolic 111–191; BP diastolic 58–107; PULSE 52–74; RESP 13–32; TEMP 36.6–36.7; O2SAT 89–99
[2023-06-16] MEDS: enoxaparin 100 mg/mL Syringe 80 MG SUBCUT ×2 (00:42→14:42)
[2023-06-16] MEDS: dexmedetomidine 400 MCG in sodium chloride 0.9% (100 ml) 100 ML IV (01:00)
[2023-06-16] MEDS: ipratropium-albuterol 3 mL Neb INHALATION ×2 (03:00→13:34)
[2023-06-16 03:35] LABS: Hematocrit 38.8 % (37.0-47.0); Hemoglobin 12.2 g/dL (11.5-15.3); Mean Corpuscular HGB Conc 31.4 g/dL (30.0-36.0); Mean Corpuscular Volume 92.2 fl (81-99); Mean Platelet Volume 10.8 fL (7.4-10.4); Platelet Count 376 10^3/cmm (130-400); Red Blood Count 4.21 10^6/uL (4.1-5.3); Red Cell Distribution Width 14.2 % (12.1-15.1)
[2023-06-16 03:49] LABS: Alanine Aminotransferase 23 U/L (0-33); Albumin Level 3.2 g/dL (3.5-5.2); Alkaline Phosphatase 125 U/L (35-105); Aspartate Amino Transferase 27 U/L (0-32); Blood Urea Nitrogen 10 mg/dL (8-23); Calcium 8.8 mg/dL (8.5-10.5); Carbon Dioxide 29 mmol/L (22-29); Chloride 96 mmol/L (98-107); Globulin 2.9 g/dL (1.3-4.6); Glomerular Filtration Rate 358.7 mL/min (90-130); Glucose 88 mg/dL (65-115); Osmolality Calculated 284 mOsm/kg (285-295); Sodium 138 mmol/L (136-145); Total Bilirubin 0.6 mg/dL (0.15-1.2); Total Protein 6.1 g/dL (6.6-8.7)
[2023-06-16 03:50] LABS: Vancomycin Trough 19.5 ug/mL (10-15)
[2023-06-16 03:51] LABS: Anion Gap 16.5 (5-19); Potassium 3.5 mmol/L (3.5-5.1)
[2023-06-16 04:35] LABS: Absolute Segmented Neutrophil 14.5 10/cmm (1.6-7.1); Lymphocytes 11 %; Segmented Neutrophils 69 %; Total Cells Counted 100 (0-100)
[2023-06-16 04:36] LABS: Absolute Eosinophils 0.2 10^3/cmm (0.0-0.7); Absolute Neutrophil 14.5 10^3/cmm (1.4-6.5); Eosinophils 1 %; Lymphocytes Absolute 2.3 10^3/cmm (1.2-3.4); Monocytes Absolute 2.1 10^3/cmm (0.1-0.6); Platelet Estimate Normal (Normal)
--- NOTE | 2023-06-16 04:38 | PC.NURSE ---
Shift note: 1900- Patient oriented, but drowsy at shift assessment. 2200- Patient drowsy, oriented, but unable to maintain O2 sat >88 on 8L NC. Placed bipap mask with 40% FIO2. 0100- Patient complaint of anxiety. Frequent attempts to remove bipap mask. Notified Dr Carr. RAI to re-start precedex gtt. 0300- Precedex gtt stopped. 0430- Patient awake, conversational, oriented. Placed on NC at 8L/min. SpO2=97%
[2023-06-16] MEDS: vancomycin 2,000 MG/400 ML PIGGYBACK 200 MG IV ×2 (05:09→18:15)
[2023-06-16] MEDS: venlafaxine ER (24HR) 75 mg Capsule PO (05:10)
[2023-06-16] MEDS: amlodipine 10 mg Tablet PO (05:10)
[2023-06-16 07:29] LABS: Glucose Point of Care 85 mg/dL (70-110)
[2023-06-16] MEDS: cefepime 2,000 MG in sodium chloride 0.9% (plus) 50 ML 100 MG IV ×2 (07:43→21:13)
[2023-06-16] MEDS: BuSPIRONE 10 mg Tablet 5 MG PO ×2 (08:06→18:19)
[2023-06-16] MEDS: pantoprazole DR 40 mg Tablet PO (08:07)
[2023-06-16] MEDS: sennosides-docusate Tablet 1 TAB PO ×2 (08:07→18:19)
[2023-06-16] MEDS: atenolol 50 mg Tablet 100 MG PO (08:07)
[2023-06-16] MEDS: clotrimazole 1% cream 30 gm 1 APPLIC TOPICAL ×2 (08:08→18:24)
[2023-06-16] MEDS: ketorolac 30 mg/mL INJ 15 MG IVP (10:47)
--- NOTE | 2023-06-16 10:56 | CTR_ITS ---
PROCEDURE INFORMATION: Exam: CT Left Lower Extremity With Contrast, Knee Exam date and time: 06/16/2023 2:06 PM Age: 63 years old Clinical indication: Edema and swelling or effusion of joint; Yes, it is localized; Knee; Additional info: Interval development of abscess, persisting leukocytosis, persisting cellulitis over left TECHNIQUE: Imaging protocol: CT of the left lower extremity with intravenous contrast was performed. Exam focused on the knee. Radiation optimization: All CT scans at this facility use at least one of these dose optimization techniques: automated exposure control; mA and/or kV adjustment per patient size (includes targeted exams where dose is matched to clinical indication); or iterative reconstruction. Contrast material: OMNI 350; Contrast volume: 100 ml; Contrast route: INTRAVENOUS (IV); REPORTING DATA: Count of CT and Cardiac NM exams in prior 12 months: This patient has received 3 known CTs and 0 known cardiac nuclear medicine studies in the 12 months prior to the current study. COMPARISON: CT hip LT w con [id number] 06/16/2023 1:59 PM RADIATION DOSE METRICS: Total DLP (mGy-cm): 737.52 FINDINGS: Bones/joints: Severe tricompartmental osteoarthritis of the knee. Surgical radha seen in place in the femur. Soft tissues: Mild subcutaneous edema along the anterior aspect of the knee along with somewhat diffuse subcutaneous edema, nonspecific. CT/CT knee LT w con [id number] IMPRESSION: 1. Negative for focal fluid collection to indicate an abscess as clinically questioned. 2. Negative for acute bony abnormality. 3. Mild subcutaneous edema along the anterior aspect of the knee along with somewhat diffuse subcutaneous edema, nonspecific. 4. Severe tricompartmental osteoarthritis of the knee. 5. Surgical radha seen in place in the femur.
--- NOTE | 2023-06-16 11:00 | PC.SOCIAL ---
IMM Updated Updated pt on IMM. No questions voiced. Provided pt a copy. Initialed, dated, & timed copy in chart.
--- NOTE | 2023-06-16 11:01 | CTR_ITS ---
PROCEDURE INFORMATION: Exam: CT Left Lower Extremity With Contrast, Hip Exam date and time: 06/16/2023 1:59 PM Age: 63 years old Clinical indication: Pain; Hip; Left; Prior surgery; Surgery date: 6+ months; Surgery type: Lt femur; Additional info: Evaluate for septic arthritis TECHNIQUE: Imaging protocol: CT of the left lower extremity with intravenous contrast was performed. Exam focused on the hip. Radiation optimization: All CT scans at this facility use at least one of these dose optimization techniques: automated exposure control; mA and/or kV adjustment per patient size (includes targeted exams where dose is matched to clinical indication); or iterative reconstruction. Contrast material: OMNI 350; Contrast volume: 50 ml; Contrast route: INTRAVENOUS (IV); REPORTING DATA: Count of CT and Cardiac NM exams in prior 12 months: This patient has received 3 known CTs and 0 known cardiac nuclear medicine studies in the 12 months prior to the current study. COMPARISON: CT knee LT w con [id number] 06/11/2023 6:04 PM, left femur CT 02/27/2022. RADIATION DOSE METRICS: Total DLP (mGy-cm): 718.72 FINDINGS: Bones/joints: A small joint effusion is present. There is severe degenerative changes of the hip with [id number] contact particularly of the posterior femoroacetabular joint space with bulky marginal osteophyte formation and subchondral sclerotic/cystic change. This had a similar appearance to prior comparison study dated 02/27/2022. No irregular osseous erosions are appreciated. Partially visualized intramedullary nail noted. Soft tissues: There is an ovoid thin walled fluid collection within the subcutaneous tissues superficial to the left hip measuring 8.8 x 4.6 x 12.1 cm series 5, image 62 and series 13, image 87. The Hounsfield units within the fluid collection is hyperdense consistent with hematoma. No gas seen within the fluid collection. There is also patulous hematoma within the gluteus deep musculature. CT/CT hip LT w con [id number] IMPRESSION: 1. There is a small joint effusion of the left hip with severe degenerative changes/joint space narrowing that were present on remote comparison studies. No specific imaging features that would be suspicious for septic arthritis. 2. There is an ovoid walled-off fluid collection in the subcutaneous tissues superficial to the left hip measuring 8.8 x 4.6 x 12.1 cm with imaging characteristics consistent with hematoma. There is also patulous hematoma noted within the gluteus deep musculature.
[2023-06-16] MEDS: iohexol 350 mg/mL 500 mL Btl (per mL) IV ×2 (14:29→14:30)
--- NOTE | 2023-06-16 14:36 | PM.PN ---
Subjective Subjective: Patient was restarted on her methadone, Dilaudid lower dosing of 40 mg daily instead of 50 mg daily. A few hours after receiving methadone she became increasingly lethargic. Needed to be placed on BiPAP through the night. Precedex was transiently also started to let her tolerate the BiPAP. This morning patient is again alert awake and oriented. She states that her pain is really bad. Ultrasound of her thigh and was performed yesterday showed interval development of an abscess 3.3 x 1.6 x 1.5 cm approximately 1.4 cm deep to the skin surface. Changes over left thigh have continued to evolve since then. There is further fluctuance noted over her upper thigh, and around her left hip posteriorly. CT imaging has been ordered and to include the hip joint thigh and knee assess extent of changes. Medications: Reviewed: Yes Vitals/I&O/Wt Last Vital Signs Temp 98.0 F 06/16/23 08:00 Pulse 53 L 06/16/23 13:38 Resp 20 H 06/16/23 13:30 BP 163/58 06/16/23 10:00 Pulse Ox 94 06/16/23 13:30 O2 Del Method Nasal Cannula 06/16/23 13:30 O2 Flow Rate 4 06/16/23 13:30 FiO2 40 06/16/23 04:00 06/15/23 06/16/23 06/16/23 22:59 06:59 14:59 Intake Total 581.736 / 1391.736 13.499 / 1405.235 570 / 570 Output Total 2450 / 2450 250 / 2700 1350 / 1350 Balance -1868.264 / -1058.264 -236.501 / -1294.765 -780 / -780 Physical Exam Narrative: General: No acute distress, AO x3, chronically ill appearing HEENT: PERRLA, pupils bilaterally equal and reactive, pallors not present Chest: Normal vesicular breath sounds, no added sounds, equal good air entry bilaterally CVS: S1-S2 regular, no murmurs, no tachycardia, no gallops, no rubs Abdomen: Soft, nontender, no organomegaly, bowel sounds present Neuro: No focal deficits, no facial deformity, AO x3, power 5/5 in all limbs Ext: cellulitic changes over left calf are resolved however noted worsening and fluctuanace over upper left thigh Urinary Catheter Management: 2-way Urethral: Cath Placed During This Visit: yes Reason for Continuing Indwelling Catheter: Accurate Measurement of Urinary Output in Critically Ill Patients Urinary Catheter Date of Insertion: 06/11/23 Urinary Catheter Time of Insertion: 15:50 Data 06/16/23 02:41 06/16/23 02:41 A&P Assessment and plan (1) Left leg cellulitis: Patient admitted to the hospital on June 11, 2023 with chief complaints of left leg cellulitis and altered mental status. She has been on treatment with cefepime and vancomycin following which her left leg started to improve. Cellulitis is resolved over the left calf however there has been interval development of abscess over the left thigh. On exam today I am concerned there is worsening changes over her upper thigh along with fluctuance over posterior hip. Will obtain CT thigh, Hip and Knee w/contrast today to look for interval abscess development, Septic Hip. Broaden abx coverage from cefepime/Vanc to Meropenem/vancomycin (2) AMS (altered mental status): Now resolved Mentation is back at baseline Suspect that her AMS was related to hypoxia on June 13, when her O2 sats down 73% on room air was found cyanosed at rounds. ABG showed hypoxic hypercapnic respiratory failure CTA showed rigth side PE for which she has been on full dose lovenox. She was moved to the ICU. Needed to be on BiPAP intermittently on June 13, 2023 Respiratory status was improving until yesterday evening when methadone was resumed. PAtient becamme lethargic a few hrs later and needed to be placed back on Bipap due to increased 02 demand. Transiently needed precedex to tolerate Bipap no weaned off. Currently on nasal cannula at 6 L/min, she is alert awake and oriented x3 Reduce methadone to 10 mg daily starting tomorrow, hold completely today (3) Respiratory failure with hypoxia and hypercapnia: Likely multifactorial related to PE, COPD exacerbation given bilateral wheezing on exam DuoNeb inhalation to continue every 6 hours, budesonide inhalation (4) Pulmonary embolism: Started on Lovenox 1 mg/kg every 12 hours Le duplex without DVT (5) COPD (chronic obstructive pulmonary disease): DuoNeb and budesonide inhalation scheduled BiPAP ventilation prn Plan Pain management is an issue currently since she if off metahdone. We are avoiding opiates to prevent lethargy. Will optimize regimen with IV Tylenol, p.o. tramadol, topical diclofenac and continue Toradol. Attestations Medical Necessity Statement*: Worsening cellulitic changes over left eye, interval development of abscess, needs broaden antibiotic coverage, awaiting CT imaging. Coding Level of Care Code Acute Code for Chg Fwd High MDM includes number and complexity of problems actively addressed during encounter, amount and/or complexity of data reviewed/ordered and described risk of complication, morbidity or mortality of management as documented Diagnoses Left leg cellulitis L03.116 AMS (altered mental status) R41.82 Respiratory failure with hypoxia and hypercapnia J96.91; J96.92 Pulmonary embolism I26.99 COPD (chronic obstructive pulmonary disease) J44.9
[2023-06-16 14:37] LABS: Glucose Point of Care 110 mg/dL (70-110)
[2023-06-16] MEDS: acetaminophen 1,000 MG/100 ML PIGGYBACK 400 MG IV (14:42)
[2023-06-16] MEDS: meropenem 1,000 MG in sodium chloride 0.9% (plus) 50 ML 100 MG IV (14:43)
--- NOTE | 2023-06-16 15:31 | PC.NURSE ---
Medication Administered 1700 dose of Voltaren for pain to left hip and knee early, per doctor orders.
[2023-06-16] MEDS: diclofenac 1% Topical Gel 100 gm 1 APPLIC TOPICAL ×2 (15:32→21:13)
--- NOTE | 2023-06-16 15:36 | P.CONIM_ITS ---
Providers/Reason For Consult Consulting Physician/Specialty*: Dr. Elizabeth Leigh - Orthopedics Reason for Consult*: Concern for possible septic arthritis Requesting Physician: Madelyn Winters MD Attending Physician: Madelyn Winters MD Primary Care Provider: Wilner Hdez DO History of Present Illness History of Present Illness Polina Snyder is a 63 year old female who presented through the emergency department for left leg pain. The patient has a significant past medical history including diabetes mellitus, peripheral artery disease, and methadone use prior to entering the hospital. He presented to the hospital on 11 June. She stated she had had worsening lower extremity swelling for approximately 3 days. The patient has had an AKA of her opposite right leg secondary to her peripheral artery disease. She also has had ulcerations and chronic lower extremity edema. On the morning of admission, reportedly, the patient was confused and was brought to the emergency department where she was found to have a leukocytosis, cellulitis in the left lower extremity, and history of a fever at home. Today, I am consulted by Dr. Winters as she has had resolution of the cellulitis below the knee, but Dr. Winters is concerned regarding septic arthritis versus possible buttocks abscess. She will likely be consulting general surgery for buttocks abscess or using ultrasound guided aspiration. Review of Systems General: Reports: ROS unobtainable due to mental status Const: Reports: fatigue and malaise; Denies: fever(s), chills or diaphoresis Eyes: Denies: photophobia Card: Denies: chest pain Resp: Denies: dyspnea GI: Denies: abdominal pain, nausea or vomiting : Denies: dysuria, urinary frequency or urinary urgency Musc: Reports: extremity pain and extremity swelling; Denies: neck pain or back pain Skin/Breast: Reports: rash and erythema Neuro: Reports: confusion Medications/Allergies Home Medications Medication Instructions Recorded Confirmed Last Taken Type aspirin 325 mg tablet 325 mg PO DAILY PRN Pain 08/17/21 06/11/23 06/11/23 History fluticasone propionate 50 2 spray intranasal DAILY PRN 11/08/21 06/11/23 Unknown History mcg/actuation nasal Allergy Symptoms spray,suspension ipratropium bromide 17 2 puff inhalation Q6H PRN unknown 11/08/21 06/11/23 Unkno wn History mcg/actuation HFA aerosol inhaler (Atrovent HFA) miscellaneous medical supply See Rx Instructions .Route 06/18/22 06/11/23 Unknown Rx .COMPLEX #1 ea potassium chloride 20 mEq 20 meq PO QAM #90 tabs 06/18/22 06/11/23 06/11/23 Rx tablet,extended release Nubia Lift #1 ea 12/25/22 06/11/23 Unknown Rx silver sulfadiazine 1 % topical 1 applic topical BID #20 grams 03/13/23 06/11/23 Unknown Rx cream (Silvadene) Hospital bed #1 ea 03/22/23 06/11/23 Unknown Rx ketoconazole 2 % shampoo See Rx Instructions .Route 06/10/23 06/11/23 Unknown Rx .COMPLEX #120 mL L.acidophil-L.casei-B.bifid-B.longum-FOS 1 cap PO DAILY PRN unknown 06/11/23 06/11/23 Unknown History 2 billion cell-50 mg capsule (Probiotic Blend) albuterol sulfate 90 mcg/actuation 2 puff inhalation Q6H PRN 06/11/23 06/11/23 Unknown History aerosol inhaler Shortness Of Breath amlodipine 10 mg tablet 10 mg PO QAM 06/11/23 06/11/23 06/10/23 History atenolol 100 mg tablet 100 mg PO BID 06/11/23 06/11/23 06/10/23 History baclofen 20 mg tablet 20 mg PO BID 06/11/23 06/11/23 06/11/23 History buspirone 5 mg tablet 5 mg PO BID 06/11/23 06/11/23 06/11/23 History fenofibrate micronized 200 mg 200 mg PO BEDTIME 06/11/23 06/11/23 06/10/23 History capsule furosemide 40 mg tablet 40 mg PO DAILY PRN Edema 06/11/23 06/11/23 Unknown History gabapentin 600 mg tablet 1,200 mg PO BID 06/11/23 06/11/23 06/11/23 History lidocaine-prilocaine 2.5 %-2.5 % 1 applic topical BID PRN unknown 06/11/23 06/11/23 Unknown History topical cream metformin 500 mg tablet,extended 500 mg PO QAM 06/11/23 06/11/23 Unknown History release 24hr methadone 40 mg soluble tablet 50 mg PO QAM 06/11/23 06/11/23 06/11/23 History miconazole nitrate 2 % vaginal See Rx Instructions .Route .COMPLEX 06/11/23 06/11/23 Unknown History cream (Monistat 7) pantoprazole 40 mg tablet,delayed 40 mg PO QPM 06/11/23 06/11/23 06/10/23 History release prochlorperazine maleate 10 mg 10 mg PO BID PRN Nausea And 06/11/23 06/11/23 Unknown History tablet (Compazine) Vomiting temazepam 15 mg capsule 15 mg PO BEDTIME PRN sleep 06/11/23 06/11/23 Unknown History venlafaxine 75 mg capsule,extended 75 mg PO QAM 06/11/23 06/11/23 Unknown History release 24 hr Allergies Allergy/AdvReac Type Severity Reaction Status Date / Time adhesive tape Allergy rash Verified 06/11/23 16:38 amitriptyline Allergy Unknown Verified 06/11/23 16:38 nitrofurantoin Allergy ADR-Vomitin Verified 06/11/23 16:38 [From Macrobid] g Sulfa (Sulfonamide Allergy Itch all Verified 06/11/23 16:38 Antibiotics) over Current Medications Generic Name Dose Route Start Last Admin Trade Name Freq PRN Reason Stop Dose Admin Acetaminophen 650 mg 06/11/23 19:55 06/14/23 15:07 Acetaminophen 325 Mg Tablet PO 650 mg Q6H PRN Administration Mild/Mod Pain Or Temp >/= 101 Albuterol/Ipratropium 3 ml 06/16/23 14:00 06/16/23 13:34 Ipratropium-Albuterol 3 Ml Neb INHALATION 3 ml Q6H.RESP RANJIT Administration Amlodipine Besylate 10 mg 06/15/23 14:50 06/16/23 05:10 Amlodipine 10 Mg Tablet PO 10 mg QAM RANJIT Administration Budesonide 0.5 mg 06/13/23 20:00 06/16/23 08:22 Budesonide 0.5 Mg/2 Ml Neb INHALATION Not Given BID.RESPIRATORY RANJIT Buspirone HCl 5 mg 06/15/23 18:00 06/16/23 08:06 Buspirone 10 Mg Tablet PO 5 mg BID RANJIT Administration Clotrimazole 1 applic 06/11/23 20:30 06/16/23 08:08 Clotrimazole 1% Cream 30 Gm TOPICAL 1 applic BID RANJIT Administration Diclofenac Sodium 1 applic 06/16/23 17:00 06/16/23 15:32 Diclofenac 1% Topical Gel 100 Gm TOPICAL 1 applic QID RANJIT Administration Enoxaparin Sodium 80 mg 06/13/23 13:00 06/16/23 14:42 Enoxaparin 100 Mg/Ml Syringe 1 mg/kg (80 mg) 80 mg SUBCUT Administration Q12H RANJIT Dexmedetomidine HCl 400 mcg/ 104 mls @ 0 mls/hr 06/13/23 11:45 06/16/23 15:19 Sodium Chloride IV Infused .Q0M [facility] Titration Protocol Per Protocol Vancomycin/PEG/NADA/Lysine/Water 2,000 mg in 400 mls @ 200 mls/hr 06/14/23 17:00 06/16/23 07:09 Vancocin IV Infused Q12H RANJIT Infusion Meropenem 1,000 mg/ Sodium 50 mls @ 100 mls/hr 06/16/23 11:00 06/16/23 15:13 Chloride IV Infused Q8H RANJIT Infusion Protocol Insulin Human Lispro 0 unit 06/11/23 19:55 06/16/23 14:35 Insulin Lispro 100 Unit/1 Ml SUBCUT Not Given WM&BEDTIME [facility] Protocol Ketorolac Tromethamine 15 mg 06/11/23 19:55 06/16/23 10:47 Ketorolac 30 Mg/Ml Inj IVP 06/16/23 19:54 15 mg Q6H PRN Administration MODERATE PAIN Lanolin 1 applic 06/14/23 16:52 06/14/23 18:34 Lanolin Oint 7 Gm TOPICAL 1 applic PRN PRN Administration DRYNESS Non-Formulary Medication 200 mg 06/11/23 21:00 06/15/23 20:37 Fenofibrate Micronized PO Not Given BEDTIME RANJIT Ondansetron HCl 4 mg 06/11/23 19:55 06/12/23 09:37 Ondansetron 2 Mg/Ml Sdv 2 Ml IVP 4 mg Q8H PRN Administration vomiting, or N/V if npo Pantoprazole Sodium 40 mg 06/12/23 09:00 06/16/23 08:[address] 40 Mg Tablet PO 40 mg DAILY RANJIT Administration Senna/Docusate Sodium 1 tab 06/14/23 18:00 06/16/23 08:07 Sennosides-Docusate Tablet PO 1 tab BID RANJIT Administration Venlafaxine HCl 75 mg 06/12/23 06:00 06/16/23 05:10 Venlafaxine Er (24hr) 75 Mg Capsule PO 75 mg QAM RANJIT Administration PFSH Acute PFSH: Medical History Anemia Cellulitis Cervical post-laminectomy syndrome [id number] disease-like deformity of foot right Chronic pain Closed femur fracture Closed fracture of left distal femur Degenerative joint disease of left knee Depression with anxiety Diabetes mellitus, type II Diabetic neuropathy associated with type 2 diabetes mellitus Diastolic CHF History of cardioversion history of SVT vs for other arrhythmia History of DVT of lower extremity post-operative Hyperlipidemia Hypertension Hypertension Lumbar radiculopathy Lung cancer Methamphetamine use Substance abuse Torticollis, acquired Has had good results with Botox in the past Venous stasis ulcer Surgical History History of arthroplasty of left knee (~1976) History of partial hysterectomy Hx of appendectomy Hx of dilation and curettage Hx of neck surgery x 2, posterior laminectomy and cervical fusion with hardware in place, limited ROM neck at baseline Hx of total knee replacement (~2010) Right Hx of tubal ligation Family History Family/Other Hypertension Depression Anxiety Diabetes Father Aneurysm Mother Hypertension Brother Diabetes Sister Diabetes Social History Smoking and tobacco status: current every day smoker Alcohol intake: never Substance/Drug Use: current Substance/Drug use frequency: few times a month Marital status: Additional social history: unknown if patient continues to smoke, documented to smoke previously Female Reproductive History: Spontaneous abortions: No Dietary Habits: Current diet type/program: regular Caffeine: Yes Caffeine intake frequency: carbonated beverages and coffee Vitals/I&O/Wt Last Vital Signs Temp 98.0 F 06/16/23 08:00 Pulse 68 06/16/23 15:00 Resp 26 H 06/16/23 15:00 BP 159/66 06/16/23 15:00 Pulse Ox 94 06/16/23 15:00 O2 Del Method Nasal Cannula 06/16/23 13:30 O2 Flow Rate 4 06/16/23 13:30 FiO2 40 06/16/23 04:00 06/16/23 06/16/23 06/16/23 06:59 14:59 22:59 Intake Total 13.499 / 1405.235 670 / 670 50 / 720 Output Total 250 / 2700 1350 / 1350 Balance -236.501 / -1294.765 -680 / -680 50 / -630 Physical Exam Const: COMMON NORMALS: no acute distress, patient oriented x3 and alert GENERAL APPEARANCE: cooperative and comfortable ORIENTATION/CONSCIOUSNESS: Yes awake HENMT: COMMON NORMALS: normocephalic and atraumatic HEAD & SCALP: normocephalic and atraumatic Eye: GENERAL EYE: appearance normal, both eyes and all related structures Chest: COMMONS NORMALS: normal inspection of the chest Resp: COMMON NORMALS: normal respiratory effort EFFORT & INSPECTION: Yes able to speak in complete sentences and Yes symmetric chest movement Extremity: LEFT LOWER EXTREMITY: Yes hip joint (Palpable soft tissue mass in buttocks) and Yes upper leg (Significant findings of cellulitis) Neuro: COMMON NORMALS: patient oriented x3 SENSORIUM/ORIENTATION: Yes alert Psych: COMMON NORMALS: mental status grossly normal APPEARANCE: Yes grossly normal ATTITUDE: Yes calm and Yes engaged ATTENTION/CONCENTRATION: Yes attention grossly intact Urinary Catheter Management: 2-way Urethral: Cath Placed During This Visit: yes Reason for Continuing Indwelling Catheter: Accurate Measurement of Urinary Output in Critically Ill Patients Urinary Catheter Date of Insertion: 06/11/23 Urinary Catheter Time of Insertion: 15:50 Data 06/17/23 02:49 06/17/23 02:49 Micro: Microbiology 06/11/23 15:32 Blood Culture - Final Blood NO GROWTH AFTER 5 DAYS 06/11/23 14:59 Blood Culture - Final Blood NO GROWTH AFTER 5 DAYS US: Radiologist's impression: Soft tissue ultrasound was obtained on June 15. There was noted to be an area of increased flow in the soft tissues of the upper left thigh which was approximately 3.3 cm x 1.6 cm x 1.5 cm and was approximately 1.4 cm below the skin surface. This was felt to represent a developing abscess based on the patient's clinical history. Xray Ortho: My impression: X-ray of the left knee demonstrates there previously was a retrograde nail placed with 2 screws distally. There was a significant tibial plateau fracture with bone loss and complete obliteration of cartilage. There are cystic changes throughout the distal femur consistent with severe degenerative osteoarthritic change. Additional imaging including the femur demonstrates 1 screw from anterior to posterior through this nail. The hip joint itself was not impacted by either fracture or the hardware. Other CT: Radiologist's impression: CT of the patient's left knee was obtained on June 11, 2023. Findings on this study included severe diffuse subcutaneous soft tissue edema with skin thickening throughout the left lower extremity felt to represent edema or cellulitis. There was no organized fluid collection. There were old healed fractures distally in the thigh and knee. Also, these fractures involve the medial tibial plateau. There were noted to be severe hypertrophic degenerative changes of the left knee joint. A&P Assessment and plan (1) Cellulitis: Patient presented as noted above. Today, after antibiotics, cellulitis is improving except over the left thigh. There is a perception of fluctuance in the buttocks which will likely be evaluated by general surgery. CT scan of the hip knee and femur are ordered but are still pending at the time of this dictation. There is question as to whether or not there needs to be an I&D, but at this point, Dr. Winters and I have discussed the case. There is nothing that we would be able to do at the level of the knee, but she notes this is improving. There is no involvement of the hip with regards to the hardware. Subsequently, CT was read as demonstrating hematoma rather than an abscess. At this point, no further orthopedic care is necessary or indicated. Qualifiers: Laterality: left Site of cellulitis: extremity Site of cellulitis of extremity: lower extremity Qualified Code(s): L03.116 - Cellulitis of left lower limb (2) Status post above-knee amputation of right lower extremity: Coding Level of Care Code Acute Code for [facility] Diagnoses Cellulitis L03.116 Laterality: left Site of cellulitis: extremity Site of cellulitis of extremity: lower extremity Status post above-knee amputation of right lower extremity Z89.611
[2023-06-16 18:18] LABS: Glucose Point of Care 109 mg/dL (70-110)
[2023-06-16] MEDS: atenolol 50 mg Tablet PO (18:19)
[2023-06-16] MEDS: heparin drip 25,000 UNIT/500 ML PREMIX 23.5 UNIT IV (18:30)
[2023-06-16 20:24] LABS: Glucose Point of Care 134 mg/dL (70-110)
[2023-06-16] MEDS: TRAMadol 50 mg Tablet PO (22:02)
[2023-06-16] MEDS: temazepam 15 mg Capsule PO (22:54)
[2023-06-17] VITALS (55 sets, daily range): BP systolic 130–179; BP diastolic 58–92; PULSE 53–80; RESP 15–39; TEMP 36.7–37.1; O2SAT 77–100
[2023-06-17] MEDS: oxyCODONE-APAP 5-325 mg Tablet 1 TAB PO (00:31)
[2023-06-17 01:29] LABS: Partial Thromboplastin Time 84.6 SECONDS (23.9-36.7)
[2023-06-17 03:37] LABS: Basophils # 0.1 10^3/uL (0.0-0.1); Basophils % 0.7 %; Eosinophils # 0.4 10^3/uL (0.0-0.8); Eosinophils % 2.2 %; Hematocrit 35.1 % (37.0-47.0); Hemoglobin 11.1 g/dL (11.5-15.3); Lymphocytes # 2.7 10^3/uL (0.8-4.8); Mean Corpuscular HGB Conc 31.6 g/dL (30.0-36.0); Mean Corpuscular Hemoglobin 29.1 pg (28.0-34.0); Mean Corpuscular Volume 91.9 fl (81-99); Mean Platelet Volume 10.2 fL (7.4-10.4); Monocytes # 1.7 10^3/uL (0.2-0.9); Monocytes % 9.3 %; Neutrophils # 11.08 10^3/uL (1.8-7.7); Neutrophils % 62.3 %; Nucleated Red Blood Cells % 0 %; Platelet Count 367 10^3/cmm (130-400); Red Blood Count 3.82 10^6/uL (4.1-5.3); Red Cell Distribution Width 14.1 % (12.1-15.1); White Blood Count 17.8 10^3/uL (4.0-10.0)
[2023-06-17 03:55] LABS: Alanine Aminotransferase 20 U/L (0-33); Albumin Level 3.1 g/dL (3.5-5.2); Alkaline Phosphatase 108 U/L (35-105); Aspartate Amino Transferase 19 U/L (0-32); Blood Urea Nitrogen 8 mg/dL (8-23); Calcium 8.3 mg/dL (8.5-10.5); Carbon Dioxide 32 mmol/L (22-29); Chloride 96 mmol/L (98-107); Globulin 2.7 g/dL (1.3-4.6); Glomerular Filtration Rate 358.7 mL/min (90-130); Glucose 104 mg/dL (65-115); Osmolality Calculated 287 mOsm/kg (285-295); Sodium 139 mmol/L (136-145); Total Bilirubin 0.5 mg/dL (0.15-1.2); Total Protein 5.8 g/dL (6.6-8.7)
[2023-06-17] MEDS: venlafaxine ER (24HR) 75 mg Capsule PO (05:16)
[2023-06-17] MEDS: potassium chloride ER 20 mEq Tablet 40 MEQ PO ×2 (05:17→10:33)
[2023-06-17] MEDS: amlodipine 10 mg Tablet PO (05:17)
[2023-06-17] MEDS: TRAMadol 50 mg Tablet PO ×3 (05:17→20:33)
[2023-06-17] MEDS: ondansetron 2 mg/ML SDV 2 mL 4 MG IVP (06:08)
[2023-06-17] MEDS: vancomycin 2,000 MG/400 ML PIGGYBACK 200 MG IV ×2 (06:08→16:27)
[2023-06-17] MEDS: budesonide 0.5 mg/2 mL Neb INHALATION ×2 (07:38→20:18)
[2023-06-17] MEDS: ipratropium-albuterol 3 mL Neb INHALATION ×3 (07:38→20:18)
[2023-06-17] MEDS: atenolol 50 mg Tablet PO ×2 (08:16→18:14)
[2023-06-17] MEDS: pantoprazole DR 40 mg Tablet PO (08:16)
[2023-06-17] MEDS: methadone 10 mg Tablet PO (08:16)
[2023-06-17] MEDS: BuSPIRONE 10 mg Tablet 5 MG PO ×2 (08:17→18:14)
[2023-06-17] MEDS: sennosides-docusate Tablet 1 TAB PO ×2 (08:17→18:15)
[2023-06-17 08:26] LABS: Glucose Point of Care 105 mg/dL (70-110)
[2023-06-17] MEDS: clotrimazole 1% cream 30 gm 1 APPLIC TOPICAL ×2 (08:37→18:32)
[2023-06-17 09:17] LABS: Partial Thromboplastin Time 64.6 SECONDS (23.9-36.7)
[2023-06-17] MEDS: diclofenac 1% Topical Gel 100 gm 1 APPLIC TOPICAL ×3 (09:25→20:36)
[2023-06-17] MEDS: potassium chloride premix 100 ML 25 MEQ IV (10:32)
[2023-06-17] MEDS: cefepime 2,000 MG in sodium chloride 0.9% (plus) 50 ML 100 MG IV ×2 (10:33→21:58)
[2023-06-17] MEDS: FUROsemide 10 mg/mL SDV 4mL 40 MG IVP (10:33)
[2023-06-17 10:38] LABS: Magnesium 1.5 mg/dL (1.7-2.3)
[2023-06-17 11:23] LABS: Glucose Point of Care 157 mg/dL (70-110)
[2023-06-17] MEDS: insulin lispro 100 unit/1 mL SUBCUT ×2 (11:23→18:15)
[2023-06-17] MEDS: lidocaine 1% INJ 10 mL (per mL) 5 ML IV (12:16)
[2023-06-17 15:28] LABS: Partial Thromboplastin Time 51.6 SECONDS (23.9-36.7)
[2023-06-17] MEDS: heparin drip 25,000 UNIT/500 ML PREMIX 21.82 UNIT IV (15:36)
--- NOTE | 2023-06-17 15:54 | PM.PN ---
Subjective Subjective: Patient immediately asked to go home and explained to me all that she can do to take care of herself at home. She lives with her who does not drive. But helps her get into the [employer] lift. She is wheelchair-bound. Patient states that she is feeling better however she reports her leg is not significantly improved. Vitals/I&O/Wt Last Vital Signs Temp 98.7 F 06/17/23 09:00 Pulse 68 06/17/23 15:45 Resp 39 H 06/17/23 15:30 BP 131/64 06/17/23 14:00 Pulse Ox 92 06/17/23 15:30 O2 Del Method Nasal Cannula 06/17/23 14:00 O2 Flow Rate 2 06/17/23 14:00 FiO2 40 06/16/23 04:00 06/17/23 06/17/23 06/17/23 06:59 14:59 22:59 Intake Total 870.167 / 0272.651 3096 / 1270 293.115 / 1563.115 Output Total 1550 / 4300 1700 / 1700 Balance -679.833 / -2469.833 1270 / 1270 -1406.885 / -136.885 Physical Exam Narrative: 63-year-old female who appears older than her stated age. Acute distress Neurologic alert and oriented to person place and time and situation Heart regular normal S1-S2 without murmurs clicks gallops or rubs Lungs diminished throughout but clear to auscultation poor expiratory phase Abdomen soft nontender nondistended positive bowel sounds Extremities right AKA stump is stable. Left left extremity with large hematoma over left posterior lateral buttock. She has erythema from her hip to her toes except for a area on her left thigh that is clear. She has skin changes associated with peripheral vascular disease Urinary Catheter Management: 2-way Urethral: Cath Placed During This Visit: yes Reason for Continuing Indwelling Catheter: Accurate Measurement of Urinary Output in Critically Ill Patients Urinary Catheter Date of Insertion: 06/11/23 Urinary Catheter Time of Insertion: 15:50 Data 06/17/23 02:49 06/17/23 02:49 Micro: Microbiology 06/11/23 15:32 Blood Culture - Final Blood NO GROWTH AFTER 5 DAYS 06/11/23 14:59 Blood Culture - Final Blood NO GROWTH AFTER 5 DAYS A&P Assessment and plan (1) Left leg cellulitis: Patient admitted to the hospital on June 11, 2023 with chief complaints of left leg cellulitis and altered mental status. She has been on treatment with cefepime and vancomycin following which her left leg started to improve. Broaden abx coverage from cefepime/Vanc to Meropenem/vancomycin occurred last couple of days. Per RN no significant improvement over weekend. Will need to further evaluate. Discussed with Dr. Cazares regarding hematoma. The hematoma is located in the buttock for which general surgery would need to be consulted if there were worsening of this hematoma. Patient's previous surgery resulted in nonhealing fracture with osteoporosis and abnormal anatomy and function. If patient were to have any further surgery that would require another AKA. (2) AMS (altered mental status): Patient has had a few episodes of altered mental status initially related to hypoxia ABG showed hypoxic and hypercapnic respiratory failure CTA of the chest showed a right-sided PE. Methadone has also in her altered mental status when she was placed back on her normal dose of 50 mg. Had to be decreased to 10 mg and currently complaining of pain. (3) Respiratory failure with hypoxia and hypercapnia: Likely multifactorial related to PE, COPD exacerbation given bilateral wheezing on exam DuoNeb inhalation to continue every 6 hours, budesonide inhalation (4) Pulmonary embolism: Started on Lovenox 1 mg/kg every 12 hours Le duplex without DVT May have come from pelvic region. (5) COPD (chronic obstructive pulmonary disease): DuoNeb and budesonide inhalation scheduled BiPAP ventilation prn Plan Pain management remains an issue as she is on low-dose methadone I will increasingly titrate slowly.. Will optimize regimen with IV Tylenol, p.o. tramadol, topical diclofenac and continue Toradol. Restart lower dose gabapentin and titrate to her home dose of 1200 mg p.o. twice daily We will start diuresis to see if decreasing leg edema improves the look of her leg. Added potassium replacement daily given start on Lasix. Attestations Medical Necessity Statement*: No significant improvement and cellulitic changes. Pain uncontrolled and requiring broadened antibiotic coverage and IV Lasix for improvement of her leg. Coding Level of Care Code Acute Code for Chg Fwd Diagnoses Left leg cellulitis L03.116 AMS (altered mental status) R41.82 Respiratory failure with hypoxia and hypercapnia J96.91; J96.92 Pulmonary embolism I26.99 COPD (chronic obstructive pulmonary disease) J44.9
[2023-06-17 17:30] LABS: Glucose Point of Care 157 mg/dL (70-110)
[2023-06-17] MEDS: gabapentin 100 mg Capsule 200 MG PO (18:14)
[2023-06-17] MEDS: diazePAM 5 mg Tablet 2.5 MG PO (18:26)
--- NOTE | 2023-06-17 20:03 | PC.NURSE ---
Patient wanted this nurse to call and notify life partner of 23 years of hospital update. Partner stated concerns of patient once had home health and would like to see if that is a possibility. Patient and family pleased with visit. Patient is calm and in good spirits today.
[2023-06-17 20:28] LABS: Glucose Point of Care 133 mg/dL (70-110)
[2023-06-17] MEDS: temazepam 15 mg Capsule PO (20:34)
[2023-06-17] MEDS: gabapentin 400 mg Capsule PO (21:58)
[2023-06-17] MEDS: morphine 4 mg/mL SDV 1 mL 1 MG IVP (21:58)
[2023-06-18] VITALS (52 sets, daily range): BP systolic 97–158; BP diastolic 51–100; PULSE 57–85; RESP 13–26; TEMP 36.7; O2SAT 82–99
[2023-06-18] MEDS: diazePAM 5 mg Tablet 2.5 MG PO ×2 (00:53→11:27)
[2023-06-18 01:29] LABS: Partial Thromboplastin Time 41.3 SECONDS (23.9-36.7)
[2023-06-18] MEDS: heparin 5,000 unit/mL INJ 1 mL IV (01:54)
[2023-06-18] MEDS: acetaminophen 325 mg Tablet 650 MG PO ×2 (02:27→20:13)
[2023-06-18] MEDS: TRAMadol 50 mg Tablet PO ×4 (02:27→22:18)
[2023-06-18] MEDS: ipratropium-albuterol 3 mL Neb INHALATION ×4 (02:41→19:51)
--- NOTE | 2023-06-18 04:41 | PC.NURSE ---
Patient complained of severe pain again tonight. Patient tried to get up in chair for about 2 hours, Patient became too drowsy and unable to raise leg of chair due to pain, patient then transferred back to bed where she slept for 3 hours after new orders obtained by dr to increase medication. Patient is very cooperative and no longer crying of severe pain.
[2023-06-18] MEDS: vancomycin 2,000 MG/400 ML PIGGYBACK 200 MG IV ×2 (05:39→17:37)
[2023-06-18] MEDS: amlodipine 10 mg Tablet PO (05:40)
[2023-06-18] MEDS: venlafaxine ER (24HR) 75 mg Capsule PO (05:40)
[2023-06-18] MEDS: budesonide 0.5 mg/2 mL Neb INHALATION ×2 (07:32→19:51)
[2023-06-18 08:14] LABS: Platelet Count 278 10^3/cmm (130-400)
[2023-06-18 08:20] LABS: Glucose Point of Care 88 mg/dL (70-110)
[2023-06-18] MEDS: atenolol 50 mg Tablet PO ×2 (08:45→17:37)
--- NOTE | 2023-06-18 08:45 | P.PN_ITS ---
Subjective Subjective: Patient states she is doing better today she agrees with less and edema noted on her left lower extremity however she continues on oxygen and has wheezing. She lives with her who does not drive. But helps her get into the [employer] lift. She is wheelchair-bound. Vitals/I&O/Wt Last Vital Signs Temp 98.0 F 06/17/23 18:30 Pulse 67 06/18/23 07:39 Resp 20 H 06/18/23 07:33 BP 145/75 06/18/23 06:00 Pulse Ox 94 06/18/23 07:33 O2 Del Method Nasal Cannula 06/18/23 07:33 O2 Flow Rate 3 06/18/23 07:33 FiO2 40 06/16/23 04:00 06/17/23 06/18/23 06/18/23 22:59 06:59 14:59 Intake Total 1124.757 / 2394.757 402.933 / 2797.690 Output Total 1700 / 1700 Balance -575.243 / 694.757 402.933 / 1097.690 Physical Exam Narrative: 63-year-old female who appears older than her stated age. She is chronically ill with mild acute distress due to her respiratory status. Neurologic alert and oriented to person place and time and situation, Heart regular normal S1-S2 without murmurs clicks gallops or rubs Lungs diminished throughout with b/l crackles, poor inspiration and expiration Abdomen soft nontender nondistended positive bowel sounds Extremities right AKA stump is stable. Left left extremity with large hematoma over left posterior lateral buttock. Erythema from yesterday has turned more pink and less edema noted. [place] remains from pelvic/iliac crest to buttocks down entire leg. Skin is becoming flat instead of bubbled up. Remains with chronic skin changes due to arterial and venous disease. Psych: she is in denial and not accepting the severity of illness, chronicity and the interaction of cardiac and respiratory failure Urinary Catheter Management: 2-way Urethral: Cath Placed During This Visit: yes Reason for Continuing Indwelling Catheter: Accurate Measurement of Urinary Output in Critically Ill Patients Urinary Catheter Date of Insertion: 06/11/23 Urinary Catheter Time of Insertion: 15:50 Data 06/18/23 08:06 06/17/23 02:49 A&P Assessment and plan (1) Left leg cellulitis: Patient admitted to the hospital on June 11, 2023 with chief complaints of entire left leg cellulitis from hip/buttock to toes and altered mental status. She has been on treatment with cefepime and vancomycin following which her left leg started to improve. Broaden abx coverage from cefepime/Vanc to Meropenem/vancomycin occurred over the weekend 06/[address] Cazares regarding hematoma. The hematoma is located in the buttock for which general surgery would need to be consulted if there were worsening of this hematoma. Patient's previous surgery resulted in nonhealing fracture with osteoporosis and abnormal anatomy and function. If patient were to have any further surgery that would require another AKA. Yesterday I started lasix and today there is significant improvement in leg edema. I willl futher increase today. (2) AMS (altered mental status): Patient has had a few episodes of altered mental status initially related to hyp oxia ABG showed hypoxic and hypercapnic respiratory failure CTA of the chest showed a right-sided PE. Methadone has also in her altered mental status when she was placed back on her normal dose of 50 mg. Had to be decreased to 10 mg and currently complaining of pain. (3) Respiratory failure with hypoxia and hypercapnia: Likely multifactorial related to PE, COPD exacerbation given bilateral wheezing on exam DuoNeb inhalation to continue every 6 hours, budesonide inhalation (4) Pulmonary embolism: Started on Lovenox 1 mg/kg every 12 hours Le duplex without DVT May have come from pelvic region. change to eliquis 2.5 bid. 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 Will optimize regimen with IV Tylenol, p.o. tramadol, topical diclofenac and continue Toradol. Restart lower dose gabapentin and titrate to her home dose of 1200 mg p.o. twice daily diuresis IS IMPROVING leg edema Added potassium replacement daily given start on Lasix. recheck labs I would recommend correction home placement for IV Lasix and IV antibiotics. Patient does not like this idea however I think it should be discussed further. Attestations Medical Necessity Statement*: Patient with congestive heart failure and chronic respiratory failure. Currently she is in acute exacerbation of CHF along with an acute PE.. She is also suffering with with this massive cellulitis of the entire left leg. She is requiring intensive care frequent nursing evaluations and IV medications. Her care will cross a few more midnights. Coding Level of Care Code Acute Code for g Fwd Diagnoses Left leg cellulitis L03.116 AMS (altered mental status) R41.82 Respiratory failure with hypoxia and hypercapnia J96.91; J96.92 Pulmonary embolism I26.99 COPD (chronic obstructive pulmonary disease) J44.9
[2023-06-18] MEDS: sennosides-docusate Tablet 1 TAB PO (08:46)
[2023-06-18] MEDS: methadone 10 mg Tablet PO (08:46)
[2023-06-18] MEDS: BuSPIRONE 10 mg Tablet 5 MG PO ×3 (08:46→20:17)
[2023-06-18] MEDS: gabapentin 300 mg Capsule 600 MG PO ×2 (08:46→17:37)
[2023-06-18] MEDS: potassium chloride ER 20 mEq Tablet 40 MEQ PO (08:46)
[2023-06-18] MEDS: apixaban 5 mg Tablet 2.5 MG PO ×2 (08:47→20:16)
[2023-06-18] MEDS: pantoprazole DR 40 mg Tablet PO (08:47)
[2023-06-18] MEDS: cefepime 2,000 MG in sodium chloride 0.9% (plus) 50 ML 100 MG IV ×2 (09:07→22:17)
[2023-06-18] MEDS: FUROsemide 10 mg/mL SDV 4mL 40 MG IVP ×2 (09:11→17:37)
[2023-06-18 11:27] LABS: Glucose Point of Care 229 mg/dL (70-110)
[2023-06-18] MEDS: insulin lispro 100 unit/1 mL SUBCUT (11:39)
--- NOTE | 2023-06-18 13:09 | PC.SOCIAL ---
IMM Updated Updated pt on IMM. No questions voiced. Provided pt a copy. Initialed, dated, & timed copy in chart.
[2023-06-18 17:06] LABS: Glucose Point of Care 131 mg/dL (70-110)
[2023-06-18 17:39] LABS: Anion Gap 15.5 (5-19); Blood Urea Nitrogen 12 mg/dL (8-23); Calcium 8.7 mg/dL (8.5-10.5); Carbon Dioxide 27 mmol/L (22-29); Chloride 98 mmol/L (98-107); Glomerular Filtration Rate 224.7 mL/min (90-130); Glucose 129 mg/dL (65-115); Magnesium 1.4 mg/dL (1.7-2.3); Osmolality Calculated 283 mOsm/kg (285-295); Potassium 4.5 mmol/L (3.5-5.1); Sodium 136 mmol/L (136-145)
[2023-06-18] MEDS: diazePAM 5 mg Tablet PO (17:50)
[2023-06-18] MEDS: magnesium sulfate premix 4 GM/100 ML PREMIX IV (19:42)
[2023-06-18 19:46] LABS: Anion Gap 18.3 (5-19); Blood Urea Nitrogen 13 mg/dL (8-23); Calcium 8.9 mg/dL (8.5-10.5); Carbon Dioxide 26 mmol/L (22-29); Chloride 96 mmol/L (98-107); Glomerular Filtration Rate 224.7 mL/min (90-130); Glucose 134 mg/dL (65-115); Magnesium 1.5 mg/dL (1.7-2.3); Osmolality Calculated 284 mOsm/kg (285-295); Potassium 4.3 mmol/L (3.5-5.1); Sodium 136 mmol/L (136-145)
[2023-06-18] MEDS: lanolin oint 7 gm 1 APPLIC TOPICAL (20:17)
[2023-06-18] MEDS: diclofenac 1% Topical Gel 100 gm 1 APPLIC TOPICAL (20:17)
[2023-06-18 20:33] LABS: Glucose Point of Care 115 mg/dL (70-110)
[2023-06-19] VITALS (30 sets, daily range): BP systolic 111–154; BP diastolic 59–82; PULSE 64–84; RESP 12–25; TEMP 36.4; O2SAT 88–98
[2023-06-19] MEDS: diazePAM 5 mg Tablet PO ×2 (03:12→11:19)
[2023-06-19 04:49] LABS: Anion Gap 12.4 (5-19); Blood Urea Nitrogen 11 mg/dL (8-23); Calcium 8.7 mg/dL (8.5-10.5); Carbon Dioxide 32 mmol/L (22-29); Chloride 100 mmol/L (98-107); Glomerular Filtration Rate 358.7 mL/min (90-130); Glucose 98 mg/dL (65-115); Magnesium 2.1 mg/dL (1.7-2.3); Osmolality Calculated 289 mOsm/kg (285-295); Potassium 4.4 mmol/L (3.5-5.1); Sodium 140 mmol/L (136-145)
[2023-06-19] MEDS: FUROsemide 10 mg/mL SDV 4mL 40 MG IVP (05:00)
[2023-06-19] MEDS: vancomycin 2,000 MG/400 ML PIGGYBACK 200 MG IV (05:00)
[2023-06-19] MEDS: amlodipine 10 mg Tablet PO (05:01)
[2023-06-19] MEDS: TRAMadol 50 mg Tablet PO (05:01)
[2023-06-19] MEDS: venlafaxine ER (24HR) 75 mg Capsule PO (05:01)
--- NOTE | 2023-06-19 05:04 | PC.PHAR ---
Vancomycin Trough 20. The previous does was turned off and restarted so finished late which could skew the result. Will continue to follow. Thank you, Blanche Suggs [facility]
[2023-06-19 07:21] LABS: Glucose Point of Care 108 mg/dL (70-110)
[2023-06-19] MEDS: atenolol 50 mg Tablet PO (08:07)
[2023-06-19] MEDS: gabapentin 300 mg Capsule 600 MG PO (08:07)
[2023-06-19] MEDS: BuSPIRONE 10 mg Tablet 5 MG PO (08:08)
[2023-06-19] MEDS: apixaban 5 mg Tablet 2.5 MG PO (08:08)
[2023-06-19] MEDS: sennosides-docusate Tablet 1 TAB PO (08:09)
[2023-06-19] MEDS: pantoprazole DR 40 mg Tablet PO (08:09)
[2023-06-19] MEDS: potassium chloride ER 20 mEq Tablet 40 MEQ PO (08:09)
[2023-06-19] MEDS: methadone 10 mg Tablet PO (08:09)
[2023-06-19] MEDS: diclofenac 1% Topical Gel 100 gm 1 APPLIC TOPICAL (08:09)
[2023-06-19] MEDS: clotrimazole 1% cream 30 gm 1 APPLIC TOPICAL (08:10)
[2023-06-19] MEDS: budesonide 0.5 mg/2 mL Neb INHALATION (08:57)
[2023-06-19] MEDS: ipratropium-albuterol 3 mL Neb INHALATION (08:57)
[2023-06-19] MEDS: cefepime 2,000 MG in sodium chloride 0.9% (plus) 50 ML 100 MG IV (09:40)
[2023-06-19] MEDS: fluconazole 100 mg Tablet 150 MG PO (09:53)
--- NOTE | 2023-06-19 10:13 | P.DS_ITS ---
Discharge Providers Date of Admission: 06/11/23 18:50 Date of Discharge: June 19, 2023 Attending Provider at Admission: Madelyn Cullen MD Attending Provider at Discharge: Kavon Etienne DO Primary Care Provider: Wilner Hdez DO Diagnoses at Discharge Discharge Diagnosis (1) Left leg cellulitis: Status: Acute (2) AMS (altered mental status): Status: Acute (3) Respiratory failure with hypoxia and hypercapnia: Status: Acute (4) Pulmonary embolism: Status: Acute (5) COPD (chronic obstructive pulmonary disease): Status: Acute Reason for Visit Reason for Visit: LT Leg Pain Brief History: Patient admitted to the hospital on June 11, 2023 with chief complaints of entire left leg cellulitis from hip/buttock to toes and altered mental status. Hospital Course Hospital Course Patient admitted to the hospital on June 11, 2023 with chief complaints of entire left leg cellulitis from hip/buttock to toes and altered mental status. Initial treatment was with cefepime and vancomycin following which her left leg started to improve.? However, she appeared to have a abscess and abx coverage was changed to Meropenem/vancomycin occurred over the weekend 06/[address] Cazares regarding hematoma.? The hematoma is located in the buttock for which general surgery would need to be consulted if there were worsening of this hematoma.? Patient's previous surgery resulted in nonhealing fracture with osteoporosis and abnormal anatomy and function.? If patient were to have any further surgery that would require another AKA. Also please note that the patient today on date of discharge admitted to multiple falls prior to coming in and stated that her hematoma was already present. We were concerned that the hematoma was from anticoagulation. It does not seem to have changed while administering anticoagulation however a home health care nurse will follow it Patient admitted to not taking Lasix at home and she was in fluid overload with significant edema in the left lower extremity as well as crackles in the lungs. She was started on Lasix 40 mg twice a day with good results and she will be sent home on this dose During this hospitalization patient had a few episodes of altered mental status initially related to hypoxia which was likely from PE and then later resuming her home dose of methadone at 50 mg because another altered mental status. She was placed on a lower dose of down at 10 mg. Patient has known moderate COPD. She was started on an inhaled steroid. She was only using oxygen as needed. She will be sent home on 2 to 4 L. She was counseled to quit smoke Patient will go home with home health care to evaluate leg edema leg cellulitis breathing and review proper medications. Physical Exam Urinary Catheter Management: 2-way Urethral: Cath Placed During This Visit: yes Reason for Continuing Indwelling Catheter: Accurate Measurement of Urinary Output in Critically Ill Patients Urinary Catheter Date of Insertion: 06/11/23 Urinary Catheter Time of Insertion: 15:50 Discharge Data Studies Completed and Pending Completed Studies During Hospitalization Category Date Time Status CT head wo con* 20700 Routine Cat Scan 06/13/23 09:[address] hip LT w con [id number] Routine Cat Scan 06/16/23 11:[address] knee LT w con [id number] Routine Cat Scan 06/11/23 17:[address] knee LT w con [id number] Routine Cat Scan 06/16/23 10:56 Completed CTA PE [CT angio chest PE protcl [id number]] Routine Cat Scan 06/13/23 09:40 Completed XR ankle LT min 3V* [id number] Stat Exams 06/11/23 15:06 Completed XR femur LT min 2V* 20750 Stat Exams 06/11/23 15:06 Completed XR foot LT min 3V* [id number] Stat Exams 06/11/23 15:06 Completed XR knee LT 3V* [id number] Stat Exams 06/11/23 15:06 Completed CV. echo wo/w contrast [id number] Routine Ultrasound 06/13/23 14:48 Completed US soft tissue and or extremity [US soft tissue/ Ultrasound 06/15/23 10:28 Completed extremity 20219] Routine US venous duplex lower extremity LT [CV venous duplex Ultrasound 06/11/23 14:49 [place] [id number]] Stat Radiology Impressions Venous Duplex 06/11/23 14:49 IMPRESSION: 1. No evidence of deep vein thrombosis. 2. Evaluation is limited due to patient intolerance of compression or augmentation. The popliteal vein could not be accessed. Ankle X-Ray 06/11/23 15:06 IMPRESSION: No fractures or dislocations. Marked osteopenia with erosive change as described question Charcot joint and or other peripheral neuropathy. Femur X-Ray 06/11/23 15:06 IMPRESSION: 1. Orthopedic radha seen in place in the femur. 2. Severe osteoarthritis and posttraumatic changes at the knee. See knee report for more detail. Foot X-Ray 06/11/23 15:06 Impression: 1. Diffuse osteoarthritis and demineralization. 2. Soft tissue swelling surrounding the left foot. 3. No definite osteomyelitis. Chest CTA 06/13/23 09:40 IMPRESSION: 1. Small segmental and subsegmental filling defects in the RIGHT lower lobe compatible with pulmonary embolus. 2. Cardiomegaly with coronary calcification. 3. Slight bibasilar atelectasis. 4. Small amount of hazy infiltrate or atelectasis in the LEFT upper lobe. Notified Madelyn Cullen MD at 06/13/2023 12:[address] 06/13/23 09:43 IMPRESSION: 1. No evidence of intracranial hemorrhage or mass effect. 2. Mild small vessel changes. Mild parenchymal volume loss. 3. No acute intracranial findings. Soft Tissue Ultrasound 06/15/23 10:28 IMPRESSION: Hypoechoic focus with adjacent increased flow is seen over the area of interest or area of concern within the left thigh, measuring 3.3 x 1.6 x 1.5 cm and approximally 1.4 cm deep to the skin surface. This likely represents developing abscess with the clinical history. Knee CT 06/16/23 10:56 IMPRESSION: 1. Negative for focal fluid collection to indicate an abscess as clinically questioned. 2. Negative for acute bony abnormality. 3. Mild subcutaneous edema along the anterior aspect of the knee along with somewhat diffuse subcutaneous edema, nonspecific. 4. Severe tricompartmental osteoarthritis of the knee. 5. Surgical radha seen in place in the femur. Hip CT 06/16/23 11:01 IMPRESSION: 1. There is a small joint effusion of the left hip with severe degenerative changes/joint space narrowing that were present on remote comparison studies. No specific imaging features that would be suspicious for septic arthritis. 2. There is an ovoid walled-off fluid collection in the subcutaneous tissues superficial to the left hip measuring 8.8 x 4.6 x 12.1 cm with imaging characteristics consistent with hematoma. There is also patulous hematoma noted within the gluteus deep musculature. ADDENDUM: 06/16/23 1559 Findings were discussed with MADELYN CULLEN at 06/16/2023 3:57 PM CDT. Laboratory Results WBC 17.8 10^3/uL (4.0-10.0) H 06/17/23 02:49 RBC 3.82 10^6/uL (4.1-5.3) L 06/17/23 02:49 Hgb 11.1 g/dL (11.5-15.3) L 06/17/23 02:49 Hct 35.1 % (37.0-47.0) L 06/17/23 02:49 MCV 91.9 fl (81-99) 06/17/23 02:49 MCH 29.1 pg (28.0-34.0) 06/17/23 02:49 MCHC 31.6 g/dL (30.0-36.0) 06/17/23 02:49 RDW 14.1 % (12.1-15.1) 06/17/23 02:49 Plt Count 278 10^3/cmm (130-400) 06/18/23 08:06 MPV 10.2 fL (7.4-10.4) 06/17/23 02:49 Neut % (Auto) 62.3 % 06/17/23 02:49 Lymph % (Auto) 15.0 % 06/17/23 02:49 [place] % (Auto) 9.3 % 06/17/23 02:49 Eos % (Auto) 2.2 % 06/17/23 02:49 Baso % (Auto) 0.7 % 06/17/23 02:49 Neut # (Auto) 11.08 10^3/uL (1.8-7.7) H 06/17/23 02:49 Lymph # (Auto) 2.7 10^3/uL (0.8-4.8) 06/17/23 02:49 [place] # (Auto) 1.7 10^3/uL (0.2-0.9) H 06/17/23 02:49 Eos # (Auto) 0.4 10^3/uL (0.0-0.8) 06/17/23 02:49 Baso # (Auto) 0.1 10^3/uL (0.0-0.1) 06/17/23 02:49 Nucleated RBC % (auto) 0 % 06/17/23 02:49 Total Counted 100 (0-100) 06/16/23 02:41 Atypical Lymphs % 0.0 % (0-5) 06/16/23 02:41 Absolute Neutrophils 14.5 10^3/cmm (1.4-6.5) H 06/16/23 02:41 Segmented Neutrophils 69 % 06/16/23 02:41 Abs Segm Neuts (Man) 14.5 10/cmm (1.6-7.1) H 06/16/23 02:41 Band Neutrophils 0.0 % 06/16/23 02:41 Abs Band Neuts (Man) 0.0 10^3/cmm (0.0-1.2) 06/16/23 02:41 Absolute Lymphocytes 2.3 10^3/cmm (1.2-3.4) 06/16/23 02:41 Lymphocytes (Manual) 11 % 06/16/23 02:41 Monocytes (Manual) 10.0 % 06/16/23 02:41 Absolute Monocytes 2.1 10^3/cmm (0.1-0.6) H 06/16/23 02:41 Eosinophils (Manual) 1 % 06/16/23 02:41 Absolute Eosinophils 0.2 10^3/cmm (0.0-0.7) 06/16/23 02:41 Basophils (Manual) 0.0 % 06/16/23 02:41 Absolute Basophils 0.0 10^3/cmm (0.0-0.2) 06/16/23 02:41 Metamyelocytes 1.0 % 06/12/23 11:15 Myelocytes 6.0 % 06/16/23 02:41 Promyelocytes 3.0 % 06/16/23 02:41 Nucleated RBCs 0.0 /100WBC (0-1) 06/12/23 11:15 Nucleated RBCs # 0.0 /100WBC 06/17/23 02:49 Dohle Bodies 2+ H 06/12/23 11:15 Platelet Estimate Normal (Normal) 06/16/23 02:41 APTT 41.3 SECONDS (23.9-36.7) H 06/18/23 01:05 Specimen Type Arterial 06/13/23 15:57 Sample Site Radial, left 06/13/23 15:57 ABG pH 7.37 (7.35-7.45) 06/13/23 15:57 ABG pCO2 49.5 mmHg (35-45) H 06/13/23 15:57 ABG pO2 74.2 mmHg (80.0-100.0) L 06/13/23 15:57 ABG HCO3 28.6 mmol/L (22-26) H 06/13/23 15:57 ABG Base Excess 2.6 mmol/L (-2.0-2.0) H 06/13/23 15:57 Abdoulaye Test Pos 06/13/23 15:57 Hematocrit 35.2 % (37-47) L 06/13/23 15:57 O2 Delivery Device Bipap 06/13/23 15:57 O2 Liters/Min 5.0 % 06/13/23 09:34 FiO2 40.0 % 06/13/23 15:57 [employer]pet Installer ID Cak 06/13/23 15:57 Sodium 140 mmol/L (136-145) 06/19/23 03:45 Potassium 4.4 mmol/L (3.5-5.1) 06/19/23 03:45 Chloride 100 mmol/L (98-107) 06/19/23 03:45 Carbon Dioxide 32 mmol/L (22-29) H 06/19/23 03:45 Anion Gap 12.4 (5-19) 06/19/23 03:45 BUN 11 mg/dL (8-23) 06/19/23 03:45 Creatinine 0.2 mg/dL (0.5-0.9) L 06/19/23 03:45 GFR Calculation 358.7 mL/min (90-130) H 06/19/23 03:45 Glucose 98 mg/dL (65-115) 06/19/23 03:45 POC Glucose 108 mg/dL (70-110) 06/19/23 07:18 Calculated Osmolality 289 mOsm/kg (285-295) 06/19/23 03:45 Lactic Acid 2.2 mmol/L (0.5-2.2) 06/11/23 14:59 Lactic Acid (Sepsis) 1.0 mmol/L (0.5-2.2) 06/11/23 23:22 Lactate 0.7 mmol/L (0.5-2.2) 06/13/23 11:16 Calcium 8.7 mg/dL (8.5-10.5) 06/19/23 03:45 Magnesium 2.1 mg/dL (1.7-2.3) 06/19/23 03:45 Total Bilirubin 0.5 mg/dL (0.15-1.2) 06/17/23 02:49 AST 19 U/L (0-32) 06/17/23 02:49 ALT 20 U/L (0-33) 06/17/23 02:49 Alkaline Phosphatase 108 U/L (35-105) H 06/17/23 02:49 Troponin T Gen 5 ng/L 12 ng/L (0-10) H 06/13/23 11:16 NT-Pro-B Natriuret Pep 1583 pg/mL (0-125) H 06/14/23 03:45 Total Protein 5.8 g/dL (6.6-8.7) L 06/17/23 02:49 Albumin 3.1 g/dL (3.5-5.2) L 06/17/23 02:49 Globulin 2.7 g/dL (1.3-4.6) 06/17/23 02:49 Urine Color Batsheva (Yellow) 06/11/23 15:55 Urine Appearance Cloudy (CLEAR) A 06/11/23 15:55 Urine pH 6 (5-7) 06/11/23 15:55 Ur Specific [place] 1.025 (1.005-1.030) 06/11/23 15:55 Urine Protein 1+ (Negative) H 06/11/23 15:55 Urine Glucose (UA) Norm (Normal) 06/11/23 15:55 Urine Ketones Negative (Negative) 06/11/23 15:55 Urine Blood 3+ (Negative) H 06/11/23 15:55 Urine Nitrate Negative (Negative) 06/11/23 15:55 Urine Bilirubin 1+ (Negative) H 06/11/23 15:55 Urine Urobilinogen 8 mg/dL (Negative) H 06/11/23 15:55 Ur Leukocyte Esterase Negative (Negative) 06/11/23 15:55 Urine RBC 5-10 /hpf (0-2) H 06/11/23 15:55 Urine WBC 0-4 /hpf (0-5) H 06/11/23 15:55 Ur Squamous Epith Cells 0-4 /hpf (0-5) H 06/11/23 15:55 Amorphous Sediment 2+ /hpf 06/11/23 15:55 Urine Bacteria Trace /hpf (NONE) 06/11/23 15:55 Hyaline Casts 0-4 /lpf H 06/11/23 15:55 Urine Mucus 2+ /hpf 06/11/23 15:55 Vancomycin Trough 20.0 ug/mL (10-15) H 06/19/23 03:45 Vitals Last Vital Signs Temp 97.6 F 06/19/23 10:09 Pulse 76 06/19/23 10:09 Resp 16 06/19/23 10:09 BP 154/77 06/19/23 10:09 Pulse Ox 95 06/19/23 10:09 O2 Del Method Nasal Cannula 06/19/23 08:57 O2 Flow Rate 4 06/19/23 08:57 FiO2 40 06/16/23 04:00 Discharge Plan Discharge Patient Disposition: Home Health Service Condition: Stable Prescriptions: New Eliquis 5 mg Tablet 2.5 mg PO BID@0900,2100 Qty: 60 0RF furosemide 40 mg Tablet 40 mg PO BID@08,16 Qty: 60 0RF gabapentin 300 mg Capsule 300 mg PO TID Qty: 90 0RF budesonide 0.5 mg/2 mL Suspension For Nebulization 0.5 mg inhalation BID.RESPIRATORY Qty: 30 1RF diazepam 5 mg Tablet 5 mg PO Q8H PRN (Reason: pain) Qty: 90 0RF methadone 10 mg Tablet 10 mg PO DAILY Qty: 30 0RF amoxicillin-pot clavulanate 875-125 mg tablet 1 tab PO Q12H Qty: 14 0RF Continued (DME) Nubia Lift See Rx Instructions .Route .MEDSUPPLY Qty: 1 0RF Rx Instructions: Please issue mechanical or electric lift for patient to use at home for transfers and mobility due to high risk of falls, R AKA, Charcot foot of the Left foot. (DME) Hospital bed See Rx Instructions .Route .MEDSUPPLY Qty: 1 0RF Rx Instructions: As directed silver sulfadiazine [Silvadene] 1 % cream 1 applic topical BID Qty: 20 0RF Rx Instructions: apply a 1.5 mm thickness miscellaneous medical supply Misc See Rx Instructions .ROUTE .COMPLEX Qty: 1 0RF Rx Instructions: Please issue Motorized wheelchair. ketoconazole 2 % shampoo See Rx Instructions .ROUTE .COMPLEX Qty: 120 0RF Dose Instruction: USE NEEDED TO SCALP Rx Instructions: USE NEEDED TO SCALP fluticasone propionate 50 mcg/actuation spray,suspension 2 spray INTRANASAL DAILY PRN (Reason: Allergy Symptoms) Atrovent HFA 17 mcg/actuation HFA aerosol inhaler 2 puff INHALATION Q6H PRN (Reason: unknown) Monistat 7 2 % Cream See Rx Instructions .ROUTE .COMPLEX Rx Instructions: vaginally as directed as needed Probiotic Blend 2 billion cell-50 mg Capsule 1 cap PO DAILY PRN (Reason: unknown) Rx Instructions: give with meal/snack venlafaxine 75 mg capsule,extended release 24hr 75 mg PO QAM atenolol 100 mg tablet 100 mg PO BID Compazine 10 mg tablet 10 mg PO BID PRN (Reason: Nausea And Vomiting) fenofibrate micronized 200 mg capsule 200 mg PO BEDTIME lidocaine-prilocaine 2.5-2.5 % cream 1 applic topical BID PRN (Reason: unknown) pantoprazole 40 mg tablet,delayed release (DR/EC) 40 mg PO QPM albuterol sulfate 90 mcg/actuation HFA aerosol inhaler 2 puff inhalation Q6H PRN (Reason: Shortness Of Breath) metformin 500 mg tablet extended release 24hr 500 mg PO QAM Changed furosemide 40 mg tablet 40 mg PO BID Qty: 60 0RF buspirone 5 mg tablet 5 mg PO TID Qty: 90 0RF potassium chloride 20 mEq tablet extended release 20 meq PO BID Qty: 90 5RF Discontinued aspirin 325 mg tablet 325 mg PO DAILY PRN (Reason: Pain) methadone 40 mg Tablet,Soluble 50 mg PO QAM gabapentin 600 mg tablet 1,200 mg PO BID baclofen 20 mg tablet 20 mg PO BID temazepam 15 mg capsule 15 mg PO BEDTIME MDD 1 cap PRN (Reason: sleep) amlodipine 10 mg tablet 10 mg PO QAM Discharge Orders: Discharge Order (Routine); Ordered 06/19/23 Ordered By: Kavon Etienne Referrals: [facility] ([facility]) [Outside] Wilner Hdez DO [Primary Care Provider] - Discharge Diet: Cardiac Discharge Activity: Resume usual activity Patient Instructions: Opioid Safety, Pain Management Activity Restrictions/Additional Instructions: * For hypertension, stop Norvasc as this may be increasing your edema in the left leg. * Atenolol is increased accordingly. * You will maintain on Eliquis for pulmonary embolism. * Stop baclofen instead using Valium 5 mg 3 times daily as needed * Stop Restoril for sleep May use Valium instead * Augmentin is your antibiotic for cellulitis complete 1 week of therapy * Increase Lasix to 40 mg twice a day. * Home health care RN can assess when edema is resolved. When edema resolves would decrease to 40 mg every morning potassium 20 mEq with each dose of Lasix. * Will likely decrease potassium dose as Lasix dose is decreased * Discuss with your primary caregiver regarding your severe depression Discharge Attestations Time Spent in Discharge Care*: greater than 30 min Status at Discharge: Cognitive status at discharge: cognitively intact , Behavioral status at discharge: cooperative , Quality Metrics Clinical Quality Measures [ No reported AMI, CVA or VTE this stay] Coding Level of Care Code Acute Code for Chg Fwd Diagnoses Left leg cellulitis L03.116 AMS (altered mental status) R41.82 Respiratory failure with hypoxia and hypercapnia J96.91; J96.92 Pulmonary embolism I26.99 COPD (chronic obstructive pulmonary disease) J44.9
[2023-06-19 11:39] LABS: Glucose Point of Care 119 mg/dL (70-110)
--- NOTE | 2023-06-19 12:37 | PC.RESP ---
pt instructed on neb use
--- NOTE | 2023-06-19 12:41 | PC.NURSE ---
Patient received discharge orders, all IVs removed, purdy removed. All discharge instructions given to patient who verbalized understanding, all meds gave to patient via meds to beds and sent home with patient.
--- NOTE | 2023-06-19 12:52 | PC.NURSE ---
Patient left at 1251
== END 2023-06-19 12:51 | disposition home health service (06) | DRG 602 ==
LOC: ER 17:19 → MEDSURG 18:51 → ICU 06-13 11:05
PROVIDERS: Internal Medicine; Admitting Provider Student in an Organized Health Care Education/Training Program; Emergency Provider Family Medicine; PCP Family Medicine; Visit Provider Internal Medicine
DX: L03.116 Cellulitis of left lower limb (principal); G93.41 Metabolic encephalopathy; I26.99 Other pulmonary embolism without acute cor pulmonale; J96.92 Respiratory failure, unspecified with hypercapnia; J96.91 Respiratory failure, unspecified with hypoxia; J44.1 Chronic obstructive pulmonary disease with (acute) exacerbation; I50.32 Chronic diastolic (congestive) heart failure; F17.200 Nicotine dependence, unspecified, uncomplicated; Z79.51 Long term (current) use of inhaled steroids; Z79.84 Long term (current) use of oral hypoglycemic drugs; E11.610 Type 2 diabetes mellitus with diabetic neuropathic arthropathy; M85.872 Other specified disorders of bone density and structure, left ankle and foot; E11.42 Type 2 diabetes mellitus with diabetic polyneuropathy; E11.51 Type 2 diabetes mellitus with diabetic peripheral angiopathy without gangrene; Z89.611 Acquired absence of right leg above knee; Z79.891 Long term (current) use of opiate analgesic; L30.4 Erythema intertrigo; G89.29 Other chronic pain; M17.12 Unilateral primary osteoarthritis, left knee; Z99.3 Dependence on wheelchair; S30.0XXA Contusion of lower back and pelvis, initial encounter; W18.30XA Fall on same level, unspecified, initial encounter; E86.0 Dehydration; Z96.652 Presence of left artificial knee joint; Z86.718 Personal history of other venous thrombosis and embolism; I11.0 Hypertensive heart disease with heart failure; F41.9 Anxiety disorder, unspecified; F32.A Depression, unspecified
CPT/HCPCS: 36415; 36416; 36600; 51702; 70450; 71275; 73552; 73562; 73610; 73630; 73701; 76882; 80048; 80053; 80202; 81001; 82803; 82962; 83605; 83735; 83880; 84484; 85007; 85025; 85049; 85730; 87040; 93005; 93971; 94640; 94660; 94760; 96365; 96372; 96375; 96376; 99285; C8929; J0131; J0692; J1100; J1644; J1650; J1815; J1885; J1940; J2185; J2270; J2405; J3370; J3372; J3475; J3480; J7030; J7050; J7626; Q9956; Q9967

== ENCOUNTER 2023-07-11 20:00 | Inpatient (IN) | payer MEDICARE, MEDICAID, SELFPAY ==
[2023-07-11 20:07] VITALS: BP 106/63; PULSE 82; RESP 18; TEMP 36.7; O2SAT 93; BMI 28.1
--- NOTE | 2023-07-11 20:24 | CTR_ITS ---
PROCEDURE INFORMATION: Exam: CT Left Lower Extremity With Contrast, Foot Exam date and time: 07/11/2023 9:07 PM Age: 63 years old Clinical indication: Patient HX: Diffuse cellulitis to left foot. C/O pain. TECHNIQUE: Imaging protocol: CT of the left lower extremity with intravenous contrast was performed. Exam focused on the foot. Radiation optimization: All CT scans at this facility use at least one of these dose optimization techniques: automated exposure control; mA and/or kV adjustment per patient size (includes targeted exams where dose is matched to clinical indication); or iterative reconstruction. Contrast material: OMNI 350; Contrast volume: 100 ml; Contrast route: INTRAVENOUS (IV); REPORTING DATA: Count of CT and Cardiac NM exams in prior 12 months: This patient has received 5 known CTs and 0 known cardiac nuclear medicine studies in the 12 months prior to the current study. COMPARISON: CT hip LT w con [id number] 06/16/2023 1:59 PM RADIATION DOSE METRICS: Total DLP (mGy-cm): 187.46 FINDINGS: Bones/joints: Suspected small ulceration in the plantar foot overlying the 1st metatarsal sesamoids. Diffuse demineralization of the bones. Mild degenerative changes of the intertarsal joints. Severe degenerative changes of the 1st interphalangeal joint. The bones are otherwise intact. No fracture or active bone destruction identified. Calcaneus spur. Soft tissues: Diffuse subcutaneous soft tissue edema with skin thickening in the lower leg, ankle, heel, dorsal foot, and toes. No definite organized fluid collection or abscess identified. CT/CT foot LT w con [id number] IMPRESSION: 1. Severe cellulitis in the lower leg, ankle, dorsal foot, and toes. 2. No organized fluid collection or abscess identified. 3. Small ulceration over the plantar surface of the distal 1st metatarsal. 4. No definite evidence for active osteomyelitis.
--- NOTE | 2023-07-11 20:34 | W.ED.EXTPRO ---
HPI - Extremity Problem General: Chief complaint: Extremity Injury, Lower Stated complaint: FOOT PAIN Time Seen by Provider: 07/11/23 20:10 Source: patient and EMS Mode of arrival: EMS Limitations: no limitations History of Present Illness: 63-year-old female history of pressure ulcers to left foot she had a AKA of her right leg. She states she has home health and they are concerned with increased swelling in her leg she had no fever she states she has had some pain treat her pain 3 out of 10. She has a history of diabetes. She had no increase in drainage. Associated symptoms: Deny chest pain, fever(s) or rash Review of Systems Const: Denies: fever(s), chills, body aches or change in appetite ENMT: Denies: throat pain or dental pain Card: Denies: chest pain Resp: Denies: dyspnea GI: Denies: abdominal pain, nausea, vomiting or diarrhea : Denies: dysuria Musc: Reports: extremity pain and extremity swelling; Denies: neck pain or back pain Skin/Breast: Denies: rash Neuro: Denies: headache(s) PFSH ED PFSH: Medical History AMS (altered mental status) Anemia Cellulitis Cervical post-laminectomy syndrome Ranyjen-Lcjry-Caugs disease-like deformity of foot right Chronic pain Closed femur fracture Closed fracture of left distal femur COPD (chronic obstructive pulmonary disease) Degenerative joint disease of left knee Depression with anxiety Diabetes mellitus, type II Diabetic neuropathy associated with type 2 diabetes mellitus Diastolic CHF History of cardioversion history of SVT vs for other arrhythmia History of DVT of lower extremity post-operative Hyperlipidemia Hypertension Hypertension Lumbar radiculopathy Lung cancer Metabolic encephalopathy Methamphetamine use Substance abuse Torticollis, acquired Has had good results with Botox in the past Venous stasis ulcer Surgical History History of arthroplasty of left knee (~1976) History of partial hysterectomy Hx of appendectomy Hx of dilation and curettage Hx of neck surgery x 2, posterior laminectomy and cervical fusion with hardware in place, limited ROM neck at baseline Hx of total knee replacement (~2010) Right Hx of tubal ligation Status post above-knee amputation of right lower extremity Family History Family/Other Hypertension Depression Anxiety Diabetes Father Aneurysm Mother Hypertension Brother Diabetes Sister Diabetes Social History Smoking and tobacco status: current every day smoker Alcohol intake: never Substance/Drug Use: current Substance/Drug use frequency: few times a month Marital status: Additional social history: unknown if patient continues to smoke, documented to smoke previously Female Reproductive History: Spontaneous abortions: No Physical Exam Const: COMMON NORMALS: no acute distress, patient oriented x3 and healthy appearing HENMT: COMMON NORMALS: normocephalic and atraumatic HEAD & SCALP: normocephalic and atraumatic Neck/C-Spine: COMMON NORMALS: full ROM and supple Chest: COMMONS NORMALS: normal inspection of the chest and normal palpation of entire chest wall Resp: COMMON NORMALS: normal respiratory effort, No retractions, No use of accessory muscles and clear to auscultation bilaterally AUSCULTATION: clear to auscultation bilaterally Cardio: COMMON NORMALS: regular rate, regular rhythm and No murmurs present (Cardio) RATE: regular rate RHYTHM: regular rhythm GI: COMMON NORMALS: Normal to inspection, nondistended, normoactive bowel sounds present, Soft to palpation, non-tender and no masses PALPATION: Yes Soft to palpation Extremity: NARRATIVE EXTREMITY EXAM: Erythema to left leg has an ulcer to her heel no drainage no necrosis noted Neuro: COMMON NORMALS: patient oriented x3, moves all extremities and no focal motor deficits Psych: COMMON NORMALS: mental status grossly normal, Normal thought process present and cooperative THOUGHT PROCESS: Normal thought process present Skin: COMMON NORMALS: no rashes or lesions noted and no wounds GENERAL SKIN EXAM: no rashes or lesions noted Course Vital Signs: Vital signs: Vital Signs Temperature 98.1 F 07/11/23 20:07 Pulse Rate 90 07/11/23 22:38 Respiratory Rate 16 07/11/23 22:38 Blood Pressure 119/78 07/11/23 22:38 Pulse Oximetry 92 07/11/23 22:38 Oxygen Delivery Me thod Nasal Cannula 07/11/23 20:07 Oxygen Flow Rate 2 07/11/23 20:07 MDM - Extremity (Nontraumatic) Medical Decision Making Patient presents here with cellulitis no signs of osteomyelitis I did speak to the hospitalist and will start IV antibiotics and admit at this time. Medical Records I reviewed the patient's medical records. Lab Data I reviewed the patient's lab results. 07/11/23 20:43 07/11/23 20:[address] 07/11/23 20:24 IMPRESSION: 1. Severe cellulitis in the lower leg, ankle, dorsal foot, and toes. 2. No organized fluid collection or abscess identified. 3. Small ulceration over the plantar surface of the distal 1st metatarsal. 4. No definite evidence for active osteomyelitis. Laboratory Results WBC 11.24 10^3/uL (3.29-11.43) 07/11/23 20:43 RBC 3.83 10^6/uL (3.85-5.65) L 07/11/23 20:43 Hgb 10.60 g/dL (11.27-16.99) L 07/11/23 20:43 Hct 36.5 % (36-47) 07/11/23 20:43 MCV 95.3 fl (85-98) 07/11/23 20:43 MCH 27.7 pg (27-33) 07/11/23 20:43 MCHC 29.0 g/dL (30-55) L 07/11/23 20:43 RDW 15.7 % (12.1-15.1) H 07/11/23 20:43 Plt Count 495 10^3/cmm (157-399) H 07/11/23 20:43 MPV 9.3 fL (7.4-10.4) 07/11/23 20:43 Neut % (Auto) 71.1 % 07/11/23 20:43 Lymph % (Auto) 16.4 % 07/11/23 20:43 [place] % (Auto) 9.3 % 07/11/23 20:43 Eos % (Auto) 2.4 % 07/11/23 20:43 Baso % (Auto) 0.4 % 07/11/23 20:43 Neut # (Auto) 7.99 10^3/uL (1.8-7.7) H 07/11/23 20:43 Lymph # (Auto) 1.8 10^3/uL (0.8-4.8) 07/11/23 20:43 [place] # (Auto) 1.1 10^3/uL (0.2-0.9) H 07/11/23 20:43 Eos # (Auto) 0.3 10^3/uL (0.0-0.8) 07/11/23 20:43 Baso # (Auto) 0.0 10^3/uL (0.0-0.1) 07/11/23 20:43 Nucleated RBC % (auto) 0 % 07/11/23 20:43 Nucleated RBCs # 0.0 /100WBC 07/11/23 20:43 Sodium 140 mmol/L (136-145) 07/11/23 20:43 Potassium 3.8 mmol/L (3.5-5.1) 07/11/23 20:43 Chloride 99 mmol/L (98-107) 07/11/23 20:43 Carbon Dioxide 32 mmol/L (22-29) H 07/11/23 20:43 Anion Gap 12.8 (5-19) 07/11/23 20:43 BUN 10 mg/dL (8-23) 07/11/23 20:43 Creatinine 0.4 mg/dL (0.5-0.9) L 07/11/23 20:43 GFR Calculation 161.2 mL/min (90-130) H 07/11/23 20:43 Glucose 95 mg/dL (65-115) 07/11/23 20:43 Calculated Osmolality 289 mOsm/kg (285-295) 07/11/23 20:43 Calcium 9.3 mg/dL (8.5-10.5) 07/11/23 20:43 Total Bilirubin 0.3 mg/dL (0.15-1.2) 07/11/23 20:43 AST 15 U/L (0-32) 07/11/23 20:43 ALT 10 U/L (0-33) 07/11/23 20:43 Alkaline Phosphatase 94 U/L (35-105) 07/11/23 20:43 C-Reactive Protein 67.4 mg/L (0.0-4.9) H 07/11/23 20:43 Total Protein 8.5 g/dL (6.6-8.7) 07/11/23 20:43 Albumin 3.8 g/dL (3.5-5.2) 07/11/23 20:43 Globulin 4.7 g/dL (1.3-4.6) H 07/11/23 20:43 Discharge Plan Discharge Patient Disposition: Admitted As Inpatient Admit Provider: Jose Tapia Clinical Impression: Cellulitis, Diabetic neuropathy associated with type 2 diabetes mellitus, Non-pressure chronic ulcer of other part of left foot with fat layer exposed Condition: Stable Coding Level of Care Code ED [employer] 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
[2023-07-11 21:05] LABS: Basophils % 0.4 %; Eosinophils # 0.3 10^3/uL (0.0-0.8); Eosinophils % 2.4 %; Hematocrit 36.5 % (36-47); Lymphocytes # 1.8 10^3/uL (0.8-4.8); Lymphocytes % 16.4 %; Mean Corpuscular Hemoglobin 27.7 pg (27-33); Mean Corpuscular Volume 95.3 fl (85-98); Mean Platelet Volume 9.3 fL (7.4-10.4); Monocytes # 1.1 10^3/uL (0.2-0.9); Monocytes % 9.3 %; Neutrophils # 7.99 10^3/uL (1.8-7.7); Neutrophils % 71.1 %; Nucleated Red Blood Cells % 0 %; Platelet Count 495 10^3/cmm (157-399); Red Blood Count 3.83 10^6/uL (3.85-5.65); Red Cell Distribution Width 15.7 % (12.1-15.1); White Blood Count 11.24 10^3/uL (3.29-11.43)
[2023-07-11] MEDS: iohexol 350 mg/mL 500 mL Btl (per mL) IV (21:18)
[2023-07-11] MEDS: vancomycin 1,000 MG in sodium chloride 0.9% 250 ML 250 MG IV (21:20)
[2023-07-11 21:21] LABS: Chloride 99 mmol/L (98-107); Sodium 140 mmol/L (136-145)
[2023-07-11 21:39] LABS: Alanine Aminotransferase 10 U/L (0-33); Albumin Level 3.8 g/dL (3.5-5.2); Alkaline Phosphatase 94 U/L (35-105); Anion Gap 12.8 (5-19); Aspartate Amino Transferase 15 U/L (0-32); Blood Urea Nitrogen 10 mg/dL (8-23); C Reactive Protein 67.4 mg/L (0.0-4.9); Calcium 9.3 mg/dL (8.5-10.5); Carbon Dioxide 32 mmol/L (22-29); Globulin 4.7 g/dL (1.3-4.6); Glomerular Filtration Rate 161.2 mL/min (90-130); Glucose 95 mg/dL (65-115); Osmolality Calculated 289 mOsm/kg (285-295); Potassium 3.8 mmol/L (3.5-5.1); Total Bilirubin 0.3 mg/dL (0.15-1.2); Total Protein 8.5 g/dL (6.6-8.7)
[2023-07-11 22:38] VITALS: BP 119/78; PULSE 90; RESP 16; O2SAT 92
--- NOTE | 2023-07-11 22:52 | P.HP_ITS ---
Providers/Chief Complaint Admitting Physician: Jose Tapia MD Primary Care Provider: Wilner Hdez DO Chief Complaint: FOOT PAIN History of Present Illness Polina Snyder is a 63 year old female with a past medical history of insulin- dependent type 2 diabetes mellitus, history of smoking, history of COPD, history of chronic methadone, recent hospitalization for pulmonary embolism, currently on low-dose Eliquis for left pulm office hematoma? Recently hospitalized for le ft leg cellulitis, altered mental status, her dose of methadone was decreased to 10 mg once daily during that hospitalization due to altered mental status, who presents to [facility] due to increased swelling of her left leg, increased erythema, tenderness, denies any fevers, chills, she has noticed increased drainage, around her toes, reports weeping edema, she does have pets at home, reports cats and dogs, denies any cat or dog bites, Review of Systems Const: Denies: fever(s) or chills Eyes: Denies: change in vision Card: Denies: chest pain Resp: Denies: dyspnea GI: Denies: abdominal pain : Denies: flank pain Musc: Denies: neck pain Neuro: Denies: headache(s) Medications/Allergies Home Medications Medication Instructions Recorded Confirmed Last Taken Type fluticasone propionate 50 2 spray intranasal DAILY PRN 11/08/21 06/11/23 Unknown History mcg/actuation nasal Allergy Symptoms spray,suspension ipratropium bromide 17 2 puff inhalation Q6H PRN unknown 11/08/21 06/11/23 Unknown History mcg/actuation HFA aerosol inhaler (Atrovent HFA) miscellaneous medical supply See Rx Instructions .Route 06/18/22 06/11/23 Unknown Rx .COMPLEX #1 ea Nubia Lift #1 ea 12/25/22 06/11/23 Unknown Rx silver sulfadiazine 1 % topical 1 applic topical BID #20 grams 03/13/23 06/11/23 Unknown Rx cream (Silvadene) Hospital bed #1 ea 03/22/23 06/11/23 Unknown Rx ketoconazole 2 % shampoo See Rx Instructions .Route 06/10/23 06/11/23 Unknown Rx .COMPLEX #120 mL L.acidophil-L.casei-B.bifid-B.longum-FOS 1 cap PO DAILY PRN unknown 06/11/23 06/11/23 Unknown History 2 billion cell-50 mg capsule (Probiotic Blend) albuterol sulfate 90 mcg/actuation 2 puff inhalation Q6H PRN 06/11/23 06/11/23 Unknown History aerosol inhaler Shortness Of Breath atenolol 100 mg tablet 100 mg PO BID 06/11/23 06/11/23 06/10/23 History fenofibrate micronized 200 mg 200 mg PO BEDTIME 06/11/23 06/11/23 06/10/23 History capsule lidocaine-prilocaine 2.5 %-2.5 % 1 applic topical BID PRN unknown 06/11/23 06/11/23 Unknown History topical cream metformin 500 mg tablet,extended 500 mg PO QAM 06/11/23 06/11/23 Unknown History release 24hr miconazole nitrate 2 % vaginal See Rx Instructions .Route .COMPLEX 06/11/23 06/11/23 Unknown History cream (Monistat 7) pantoprazole 40 mg tablet,delayed 40 mg PO QPM 06/11/23 06/11/23 06/10/23 History release prochlorperazine maleate 10 mg 10 mg PO BID PRN Nausea And 06/11/23 06/11/23 Unknown History tablet (Compazine) Vomiting venlafaxine 75 mg capsule,extended 75 mg PO QAM 06/11/23 06/11/23 Unknown History release 24 hr amoxicillin 875 mg-potassium 1 tab PO Q12H #14 tabs 06/19/23 Unknown Rx clavulanate 125 mg tablet apixaban 5 mg tablet (Eliquis) 2.5 mg PO BID@0900,2100 pulmonary 06/19/23 Unknown Rx embolism #60 tabs budesonide 0.5 mg/2 mL suspension 0.5 mg (2 mL) inhalation 06/19/23 Unknown Rx for nebulization BID.RESPIRATORY #30 mL buspirone 5 mg tablet 5 mg PO TID #90 tabs 06/19/23 06/11/23 06/11/23 Rx diazepam 5 mg tablet 5 mg PO Q8H PRN pain #90 tabs 06/19/23 Unknown Rx furosemide 40 mg tablet 40 mg PO BID #60 tabs 06/19/23 06/11/23 Unknown Rx furosemide 40 mg tablet 40 mg PO BID@08,16 #60 tabs 06/19/23 Unknown Rx gabapentin 300 mg capsule 300 mg PO TID #90 caps 06/19/23 Unknown Rx methadone 10 mg tablet 10 mg PO DAILY #30 tabs 06/19/23 Unknown Rx potassium chloride 20 mEq 20 meq PO BID #90 tabs 06/19/23 06/11/23 06/11/23 Rx tablet,extended release hydrocortisone acetate 25 mg 25 mg DE DAILY #12 ea 06/27/23 Unknown Rx rectal suppository (Anusol-HC) Allergies Allergy/AdvReac Type Severity Reaction Status Date / Time nalbuphine Allergy Unknown sick to Unverified 06/19/23 16:48 stomach adhesive tape Allergy rash Verified 06/11/23 16:38 amitriptyline Allergy Unknown Verified 06/11/23 16:38 nitrofurantoin Allergy ADR-Vomitin Verified 06/11/23 16:38 [From Macrobid] g Sulfa (Sulfonamide Allergy Itch all Verified 06/11/23 16:38 Antibiotics) over PFSH Acute PFSH: Medical History AMS (altered mental status) Anemia Cellulitis Cervical post-laminectomy syndrome Xplnebm-Pmacy-Rhjhh disease-like deformity of foot right Chronic pain Closed femur fracture Closed fracture of left distal femur COPD (chronic obstructive pulmonary disease) Degenerative joint disease of left knee Depression with anxiety Diabetes mellitus, type II Diabetic neuropathy associated with type 2 diabetes mellitus Diastolic CHF History of cardioversion history of SVT vs for other arrhythmia History of DVT of lower extremity post-operative Hyperlipidemia Hypertension Hypertension Lumbar radiculopathy Lung cancer Metabolic encephalopathy Methamphetamine use Substance abuse Torticollis, acquired Has had good results with Botox in the past Venous stasis ulcer Surgical History History of arthroplasty of left knee (~1976) History of partial hysterectomy Hx of appendectomy Hx of dilation and curettage Hx of neck surgery x 2, posterior laminectomy and cervical fusion with hardware in place, limited ROM neck at baseline Hx of total knee replacement (~2010) Right Hx of tubal ligation Status post above-knee amputation of right lower extremity Family History Family/Other Hypertension Depression Anxiety Diabetes Father Aneurysm Mother Hypertension Brother Diabetes Sister Diabetes Social History Smoking and tobacco status: current every day smoker Alcohol intake: never Substance/Drug Use: current Substance/Drug use frequency: few times a month Marital status: Additional social history: unknown if patient continues to smoke, documented to smoke previously Female Reproductive History: Spontaneous abortions: No Vitals/I&O/Wt Last Vital Signs Temp 98.1 F 07/11/23 20:07 Pulse 90 07/11/23 22:38 Resp 16 07/11/23 22:38 BP 119/78 07/11/23 22:38 Pulse Ox 92 07/11/23 22:38 O2 Del Method Nasal Cannula 07/11/23 20:07 O2 Flow Rate 2 07/11/23 20:07 Weight last 48 hrs Weight 81.647 kg Physical Exam Const: COMMON NORMALS: no acute distress and patient oriented x3 GENERAL APPEARANCE: cooperative, well kempt and well developed HENMT: COMMON NORMALS: normocephalic and Normal external nose present HEAD & SCALP: normocephalic FACE & SINUS: normal facial exam NOSE: Normal external nose present Eye: COMMON NORMALS: Equal, round and reactive pupils present, EOMs intact bilaterally, conjunctivae normal and no scleral icterus CONJUNCTIVA: Yes conjunctivae normal PUPIL: Yes Equal, round and reactive pupils present Neck/C-Spine: COMMON NORMALS: full ROM, no lymphadenopathy, no JVD and No carotid bruits THYROID: Thyroid normal Lymph: LYMPHATIC: no lymphadenopathy noted Chest: COMMONS NORMALS: normal inspection of the chest Resp: COMMON NORMALS: normal respiratory effort, No retractions, No use of accessory muscles and clear to auscultation bilaterally AUSCULTATION: clear to auscultation bilaterally OTHER: scattered crackle Cardio: COMMON NORMALS: regular rate, regular rhythm, S1 normal heart sound present, S2 normal heart sound present, No murmurs present (Cardio) and Peripheral pulses 2+ throughout RATE: regular rate RHYTHM: regular rhythm HEART SOUNDS: S1 normal heart sound present and S2 normal heart sound present PERIPHERAL PULSES: Peripheral pulses 2+ throughout GI: COMMON NORMALS: Normal to inspection, nondistended, normoactive bowel sounds present, Soft to palpation and non-tender : BLADDER/KIDNEY EXAM: Yes no CVA tenderness Back/Pelvis: COMMON NORMALS: no CVA tenderness Extremity: NARRATIVE EXTREMITY EXAM: Right BKA Left lower extremity, has weeping edema, 2+ of lower extremity, with erythema extending all the way up to the distal to the knee joint, does have some calf swelling, no tenderness, she also has some erythema, swelling around her left thigh, extending to the left buttocks Neuro: COMMON NORMALS: patient oriented x3, CN's II-XII intact bilaterally, moves all extremities, no focal motor deficits and no sensory deficits noted MENINGEAL SIGNS: Yes no meningeal signs Psych: COMMON NORMALS: mental status grossly normal, Normal thought process present, cooperative and speech normal APPEARANCE: Yes well kempt SPEECH: Yes normal speech THOUGHT PROCESS: Normal thought process present Skin: COMMON NORMALS: turgor normal and no jaundice GENERAL SKIN EXAM: turgor normal Data 07/11/23 20:43 07/11/23 20:43 Micro: Microbiology 07/11/23 20:55 Blood Culture - Preliminary Blood SPECIMEN COLLECTED 07/11/23 20:43 Blood Culture - Preliminary Blood SPECIMEN COLLECTED A&P Assessment and plan (1) Cellulitis: (2) Left leg swelling: (3) Left leg cellulitis: (4) Pulmonary embolism: (5) Traumatic hematoma of buttock: (6) Leg ulcer, left: Qualifiers: Non-pressure ulcer stage: limited to breakdown of skin Qualified Code(s): L97.921 - Non-pressure chronic ulcer of unspecified part of left lower leg limited to breakdown of skin (7) Essential hypertension: (8) Fluid overload: (9) Diastolic CHF, acute: Plan Left leg swelling -Venous ultrasound for DVT, as she is on the lower dose of Eliquis -She does have a history of noncompliance with diuretics, she does have weeping edema Lasix 40 IV twice daily -I have ordered a BMP and a troponin series Left leg cellulitis ? She denies any cat bites any dog bites ? Blood cultures ? Vancomycin, cefepime ?, CRP, Pro-Celio, ESR ? We will have podiatry, and take a look at her feet in the morning She has a history of a left hip hematoma measuring 8.8 x 4.6 x 12.1 cm ? Consistent with hematoma ? On examination she does have some erythema, swelling, tenderness of her left hip ? We will order CT scan abdomen pelvis History of pulmonary embolism ? She was discharged on Eliquis 2.5 mg twice daily for pulmonary embolism, possible lower dose because of hematoma as above ? Pending CT scan abdomen pelvis we will consider increasing her to 5 mg twice daily Chronic pain ? Continue methadone 10 mg once daily, on her last hospital discharge her dose of methadone was decreased to 10 mg due to drowsiness and altered mental status ? Diazepam 5 mg t 3 times daily as needed Type 2 diabetes mellitus, low-dose sliding scale COPD, not in exacerbation does report intermittent smoking Hypoxia, currently on 2 L, history of respiratory failure, I will order chest x- ray, BnP, troponin series, possible fluid overload as she does have some scattered crackles, -She has a history of respiratory failure requiring BiPAP -We will order ABG Attestations Medical Necessity Statement*: Patient requires hospitalization, inpatient, greater than 2 midnights, for left leg cellulitis, swelling, concerns for fluid overload, requiring diuresis, hypoxia on 2 L diastolic CHF exacerbation Diagnoses Cellulitis L03.90 Left leg swelling M79.89 Left leg cellulitis L03.116 Pulmonary embolism I26.99 Traumatic hematoma of buttock S30.0XXA Leg ulcer, left L97.921 Non-pressure ulcer stage: limited to breakdown of skin Essential hypertension I10 Fluid overload E87.70 Diastolic CHF, acute I50.31
[2023-07-11 23:19] LABS: Lactic Sepsis W/Reflex 1.6 mmol/L (0.5-2.2)
--- NOTE | 2023-07-11 23:22 | PC.NURSE ---
Addendum entered by Etta Medeiros RN 07/11/23 23:45: Patient now answering questions better. Admission assessment completed. Original Note: Unable to answer parts of admission assessment; unable to complete med rec or immunization assessment due to patient being lethargic.
--- NOTE | 2023-07-11 23:23 | ECG_ITS ---
[facility] Test Date: 2023-07-11 Pat Name: Polina Snyder Department: Room: 259 Gender: Female [employer] Consultant: : 1960 Requested By: Jose Tapia Order Number: [id number] Rosalba MD: Pat Whitley M.D. Measurements Intervals [place] Rate: 89 P: 69 VA: 156 QRS: 49 QRSD: 97 T: 69 QT: 378 QTc: 460 Interpretive Statements SINUS RHYTHM Compared to ECG 06/11/2023 15:08:10 T-wave abnormality no longer present Electronically Signed On 07-12-2023 18:12:33 CDT by Pat Whitley M.D. [id number]
[2023-07-11 23:24] VITALS: BP 126/74; PULSE 87; RESP 18; TEMP 36.7; O2SAT 91
[2023-07-11] MEDS: pantoprazole 40 mg SDV IVP (23:37)
[2023-07-11] MEDS: FUROsemide 10 mg/mL SDV 4mL 40 MG IVP (23:38)
[2023-07-11 23:40] LABS: Erythrocyte Sedimentation Rate 69 mm/hr (0-15)
[2023-07-11 23:48] LABS: Troponin(5th) Baseline 18 ng/L (0-10)
[2023-07-11 23:51] LABS: Estmated Average Glucose 131; Hemoglobin A1C 6.2 % (4.0-6.0)
[2023-07-11] MEDS: cefepime 1,000 MG in sodium chloride 0.9% (plus) 50 ML 100 MG IV (23:56)
--- NOTE | 2023-07-11 23:57 | PC.PHAR ---
Pharmacokinetic dosing service Date: 07/11/23 Time: 2357 Objective: Patient: Polina Snyder Floor: 259-2 Age: 63 yo Serum creatinine: 0.4 mg/dL Height: 67.0 Inches Weight (kg): 81.647 Diagnosis: Relevant medical/social history: Cultures and sensitivities: Other labs: Assessment: IBW (kg): 61.60 Dosing wt(kg): 81.647 Estimated Creatinine clearance (ml/min): 130 Clearance limited to 130 ml/min to reduce risk of overdosing. CRCL method: Cockcroft and Gault using ibw(default). Drug selected: Vancomycin Loading dose (mg): 0 Vd (liters): 73.5 (factor used: 0.9 L/kg) Sumeet (hr-1): 0.112 Half life (hrs): 6.19 Recommended dose: 1250 mg Interval: 8 hrs Infusion time (hrs): 1.5 Predicted peak (mcg/mL): 26.5 Predicted trough (mcg/mL): 12.80 Total body weight is being used for vancomycin dosing. Renal function is stable [ ] /unstable [ ] Recommendations: Give Vancomycin 1250 mg q 8 hrs with an expected Cpeak of 26.5 mcg/ml and an expected Ctrough of 12.80 mcg/ml Renal dosing of other antibiotics (review renal dosing of other medications and list guidelines here): Thank you for the consult, will continue to follow. Signature: Blanche Suggs [facility]
[2023-07-11 23:59] LABS: Procalcitonin 0.05 ng/mL (0-0.5); Thyroid Stimulating Hormone 1.71 uIU/mL (0.27-4.20)
[2023-07-12] VITALS (12 sets, daily range): BP systolic 94–167; BP diastolic 59–84; PULSE 62–90; RESP 16–22; TEMP 36.3–37; O2SAT 90–97
[2023-07-12 00:08] LABS: ABG PCO2 58.2 mmHg (35-45); ABG PH Result 7.37 (7.35-7.45); Arterial Blood Gas Hematocrit 30.6 % (37-47); Blood Gas Sample Site Brachial, right; Blood Gas Sample Type Arterial; HCO3 ABG 33.6 mmol/L (22-26); Oxygen Device NC
[2023-07-12 00:10] LABS: Chol HDL Ratio 4.19 mg/dL (0.0-4.40); Cholesterol 109 mg/dL (0-200); HDL Cholesterol 26 mg/dL (60-100); LDL Cholesterol Calculated 43 mg/dL (50-129); LDL HDL Ratio 1.65 RATIO (0.00-3.22); Triglycerides 201 mg/dL (0-150)
[2023-07-12] MEDS: diazePAM 5 mg Tablet PO ×2 (00:22→21:17)
[2023-07-12 00:28] LABS: NT Pro B Type Natriuretic Pept 514 pg/mL (0-125)
[2023-07-12 01:12] LABS: Troponin 5 2HR 18.68 ng/L (0-10)
[2023-07-12 01:17] LABS: Troponin 5 2HR Delta 0.68 ABS# (0-10)
--- NOTE | 2023-07-12 02:03 | PC.RESP ---
0120 Patient refused 010 EKG , RN aware
[2023-07-12 05:21] LABS: Basophils # 0.1 10^3/uL (0.0-0.1); Basophils % 0.3 %; Eosinophils # 0.2 10^3/uL (0.0-0.8); Eosinophils % 1.5 %; Hematocrit 33.3 % (36-47); Lymphocytes # 1.2 10^3/uL (0.8-4.8); Lymphocytes % 7.9 %; Mean Corpuscular HGB Conc 29.7 g/dL (30-55); Mean Corpuscular Volume 94.1 fl (85-98); Mean Platelet Volume 9.4 fL (7.4-10.4); Monocytes # 0.9 10^3/uL (0.2-0.9); Monocytes % 5.7 %; Neutrophils # 12.76 10^3/uL (1.8-7.7); Neutrophils % 84.1 %; Nucleated Red Blood Cells % 0 %; Platelet Count 449 10^3/cmm (157-399); Red Blood Count 3.54 10^6/uL (3.85-5.65); Red Cell Distribution Width 15.8 % (12.1-15.1); White Blood Count 15.17 10^3/uL (3.29-11.43)
[2023-07-12 05:39] LABS: Troponin 5 6HR 22.23 ng/L (0-10)
[2023-07-12 05:40] LABS: Troponin 5 6HR Delta 4.23 ng/L (0-12)
[2023-07-12] MEDS: vancomycin 1,250 MG/250 ML PIGGYBACK 250 MG IV ×3 (05:45→21:16)
[2023-07-12 05:46] LABS: Alanine Aminotransferase 8 U/L (0-33); Albumin Level 3.1 g/dL (3.5-5.2); Alkaline Phosphatase 84 U/L (35-105); Anion Gap 12.6 (5-19); Aspartate Amino Transferase 16 U/L (0-32); Blood Urea Nitrogen 9 mg/dL (8-23); Calcium 8.4 mg/dL (8.5-10.5); Carbon Dioxide 32 mmol/L (22-29); Chloride 98 mmol/L (98-107); Globulin 3.8 g/dL (1.3-4.6); Glomerular Filtration Rate 224.7 mL/min (90-130); Glucose 107 mg/dL (65-115); Magnesium 1.3 mg/dL (1.7-2.3); Osmolality Calculated 287 mOsm/kg (285-295); Phosphorus 4.8 mg/dL (2.5-4.5); Potassium 3.6 mmol/L (3.5-5.1); Sodium 139 mmol/L (136-145); Total Bilirubin 0.3 mg/dL (0.15-1.2); Total Protein 6.9 g/dL (6.6-8.7)
[2023-07-12 06:47] LABS: Glucose Point of Care 117 mg/dL (70-110)
[2023-07-12] MEDS: gabapentin 300 mg Capsule PO ×3 (08:07→21:18)
[2023-07-12] MEDS: atenolol 50 mg Tablet 100 MG PO (08:07)
[2023-07-12] MEDS: BuSPIRONE 10 mg Tablet 5 MG PO ×3 (08:07→21:16)
[2023-07-12] MEDS: methadone 10 mg Tablet PO (08:07)
[2023-07-12] MEDS: potassium chloride ER 20 mEq Tablet PO ×2 (08:07→22:46)
[2023-07-12] MEDS: venlafaxine ER (24HR) 75 mg Capsule PO (08:07)
[2023-07-12] MEDS: apixaban 5 mg Tablet 2.5 MG PO ×2 (08:08→21:16)
--- NOTE | 2023-07-12 08:58 | PC.CHAP ---
Pastoral Care Encounter/Spiritual Assessment Type of Contact [] Declined outdoor landscape architect visit [] Patient/Family/Request visit [] Outpatient visit [] Follow-up visit [] Physician referral [] Code/Alert [] Routine visit [] Staff referral [] Actively dying [x] Patient sleeping [] Family support [] [] Out of room [] Palliative care [] [] Receiving care in room [] Pre-surgical visit [] Trauma [] Long length of stay [] ICU visit [] Other: Relational/Emotional Strength [] Patient feels connected with others/family/visitors/staff [] Distress [] Loneliness/isolation [] Abandonment Spirituality of Patient [] Person of Amee [] Attends Buddhism of their Amee [] Believes in Prayer [] Reads Bible or Methodist materials [] There are Spiritual issues to be addressed Banking Representative Interventions [] Prayer [] Active listening [] Non-anxious presence [] Spiritual/emotional support [] Crisis/trauma care [] Spiritual counseling [] Bereavement support [] Provided bereavement packet [] Provided Bible/devotional materials [] Provided toy/stuffed animal, coloring book to patient or family member [] Provided Communion [] Anointing/[place] [] Salvation [] Completed spiritual assessment [] Other: Impact on Illness or Injury [] Angry [] Fearful [] Anxious [] Often cries [] Exhaustion [] Unable to work [] Unable to attend alevism [] Unable to walk/stand [] Unable to read [] Unable to drive [] Unable to eat/drink [] Unable to sleep [] Unable to be with family [] Patient intubated [] Other: Summary Time spent with patient
--- NOTE | 2023-07-12 09:11 | PC.PHAR ---
SPOKE WITH [facility]/ [facility] TO VERIFY PT MEDICATIONS. CONTACTED GUARDIAN/PARTNER ON ALL MEDICATIONS FOR SECONDARY VERIFICATION FOR ACCURACY. 07/12/23
--- NOTE | 2023-07-12 09:14 | PM.PN ---
Subjective Subjective: Reports that she did not sleep well last night. She is worried that she is going to have to have surgery again. Says that her legs are not hurting at this time. Vitals/I&O/Wt Last Vital Signs Temp 98.6 F 07/12/23 08:00 Pulse 88 07/12/23 08:00 Resp 18 07/12/23 08:00 BP 157/84 07/12/23 08:00 Pulse Ox 93 07/12/23 08:00 O2 Del Method Room Air 07/12/23 04:14 O2 Flow Rate 2 07/12/23 00:16 07/11/23 07/12/23 07/12/23 22:59 06:59 14:59 Intake Total 300 / 300 250 / 250 Output Total 1500 / 1500 Balance -1200 / -1200 250 / 250 Weight last 48 hrs Weight 180 lb Physical Exam Narrative: General: Patient appearstired, emotional. HEENT: Normocephalic, Atraumatic. External ears normal. Nasal passages patent without drainage. MMM. Heart: RRR. Resp: Lungs with fine rales at the bases. Otherwise clear to auscultation. No respiratory distress or use of accessory muscles. Abd: Soft, non-tender. Non-distended. Extremities: Right BKA Left lower extremity, has weeping edema, 2+ of lower extremity, with erythema extending all the way up to the distal to the knee joint, does have some calf swelling, no tenderness, she also has some erythema, swelling around her left thigh, extending to the left buttocks Neuro: No focal motor or sensory loss. Gait is normal. Urinary Catheter Management: Garber: Cath Placed During This Visit: yes Reason for Continuing Indwelling Catheter: Other Urinary Catheter Date of Insertion: 07/12/23 Urinary Catheter Time of Insertion: 01:00 Data 07/12/23 05:10 07/12/23 05:10 Micro: Microbiology 07/11/23 20:55 Blood Culture - Preliminary Blood SPECIMEN COLLECTED 07/11/23 20:43 Blood Culture - Preliminary Blood SPECIMEN COLLECTED A&P Assessment and plan (1) Cellulitis: (2) Left leg swelling: (3) Left leg cellulitis: (4) Pulmonary embolism: (5) Traumatic hematoma of buttock: (6) Leg ulcer, left: Qualifiers: Non-pressure ulcer stage: limited to breakdown of skin Qualified Code(s): L97.921 - Non-pressure chronic ulcer of unspecified part of left lower leg limited to breakdown of skin (7) Essential hypertension: (8) Fluid overload: (9) Diastolic CHF, acute: Plan 63-year-old female admitted for left lower extremity cellulitis, swelling and pain. Continue close inpatient monitoring. Ultrasound was obtained overnight is negative for DVT. Blood and wound cultures are pending. Currently receiving vancomycin and cefepime for cellulitis. WBC elevated today to 15. ESR: 69, CRP: 67.4. Recheck inflammatory markers in 1-2 days. Procal: 0.05. Magnesium 1.3. Will replace. Continues to have swelling, tenderness erythema to the left hip. She has a CT of the abdomen and pelvis also pending. Continue sliding scale insulin. Vitals are improved today. Her blood pressure is a little elevated. Her oxygen saturation has improved, she is on 1.5 L oxygen. Will consider consult with podiatry in the next 1-2 days if no improvement with antibiotics. Continue methadone and diazepam for pain and anxiety. Continue IV Lasix. Strict I's and O's. Continue Eliquis for previous DVT/PE treatment and prophylaxis. Consider increasing, but will await results of CT. Code Status: Full IVF: None DVT PPx: Eliquis GI PPx: Protonix ABx: Vancomycin, cefepime Diet: Carb consistent Discharge plan: To be determined Attestations Medical Necessity Statement*: Will need continued inpatient stay for IV antibiotics, cultures, consults, and possibly wound care. Coding Level of Care Code Acute Code for Chg Fwd Moderate MDM includes number and complexity of problems actively addressed during encounter, amount and/or complexity of data reviewed/ordered and described risk of complication, morbidity or mortality of management as documented Diagnoses Cellulitis L03.90 Left leg swelling M79.89 Left leg cellulitis L03.116 Pulmonary embolism I26.99 Traumatic hematoma of buttock S30.0XXA Leg ulcer, left L97.921 Non-pressure ulcer stage: limited to breakdown of skin Essential hypertension I10 Fluid overload E87.70 Diastolic CHF, acute I50.31
[2023-07-12] MEDS: ondansetron 2 mg/ML SDV 2 mL 4 MG IVP (10:04)
[2023-07-12] MEDS: FUROsemide 10 mg/mL SDV 4mL 40 MG IVP (11:28)
[2023-07-12] MEDS: cefepime 1,000 MG in sodium chloride 0.9% (plus) 50 ML 100 MG IV (11:28)
[2023-07-12 11:59] LABS: Glucose Point of Care 160 mg/dL (70-110)
--- NOTE | 2023-07-12 12:27 | PC.OT ---
OT evaluation attempted, however pt is not able to stay awake to participate in evaluation. Evaluation to be attempted again at a later time.
[2023-07-12 16:36] LABS: Glucose Point of Care 116 mg/dL (70-110)
[2023-07-12 21:13] LABS: Glucose Point of Care 119 mg/dL (70-110)
--- NOTE | 2023-07-12 23:18 | CT_ITS ---
WS: [id number] CT ABDOMEN PELVIS TECHNIQUE: Noncontrast CT of the abdomen and pelvis with coronal and sagittal reformatted images. CLINICAL INFORMATION: left buttock hematoma COMPARISON: None. DLP: 1198.[address] scans at [facility] use at least one of these dose optimization techniques: automated e xposure control; mA and/or kV adjustment per patient size (includes targeted exams where dose is matc hed to clinical indication); or iterative reconstruction. FINDINGS: Hepatomegaly. Mild diffuse fatty infiltration of the liver. Vicarious excretion of contrast in the ga llbladder. Normal spleen. Prior hysterectomy. Diffuse body wall anasarca. LEFT buttock hematoma measu ring approximately 7.3 x 4.4 x 13.7 cm AP by transverse by craniocaudal with some increased attenuati on blood products. This measures slightly smaller compared to previous where it measured 8.8 x 4.6 x 12.1 cm Intramedullary radha and screw fixation LEFT femur. Trace RIGHT pleural fluid. Bibasilar atelectasis. Slight patchy filtrates in the lingula and RIGHT lo wer lobe. Small esophageal hernia. Noncontrast pancreas appears normal. Adrenal glands are normal. No evidence of small or large bowel obstruction. No free fluid in the abdomen or pelvis. Garber cathet er. Diffuse body wall anasarca. Tiny fat-containing umbilical hernia. Adrenal glands are normal. No h ydronephrosis. Normal caliber abdominal aorta. Lumbar curve with advanced spondylitic changes. Grade 1 anterolisthesis L4 on L5. Severe central canal stenosis L4-5. IMPRESSION: 1. LEFT buttock mixed attenuation hematoma measures slightly smaller today compared to previous. 2. Slight patchy infiltrates in the lingula and RIGHT lower lobe. Correlation for pneumonia. 3. Hepatomegaly. 4. Small esophageal hernia. 5. Severe central canal stenosis L4-5. 6. No other significant changes.
--- NOTE | 2023-07-12 23:18 | XR_ITS ---
WS: [id number] EXAMINATION: XR chest 1V portable [id number] REASON FOR EXAM: crackle COMPARISON: 06/13/2021 ORDER DATE: 07/12/2023 11:18 PM TECHNIQUE: A single, portable frontal chest x-ray was obtained. X-RAY FINDINGS: Lungs: Low lung volumes are seen. The lungs are clear No consolidation. Pleural spaces: Elevated right hemidiaphragm is seen. No pleural effusion. No pneumothorax. Heart/Mediastinum: Unremarkable. No cardiomegaly. Bones/joints: Metallic hardware is seen in the cervical . No acute findings. IMPRESSION: No interval change from previous study
--- NOTE | 2023-07-12 23:18 | USR_ITS ---
PROCEDURE INFORMATION: Exam: US Duplex Left Lower Extremity Veins, Limited Exam date and time: 07/12/2023 12:35 AM Age: 63 years old Clinical indication: Pain; Edema, localized; Lower extremity, left; Leg, upper and leg, lower; Additional info: Dvt TECHNIQUE: Imaging protocol: Real-time duplex ultrasound of the left extremity with 2-D ludwig scale, color Doppler flow and spectral waveform analysis including responses to compression and other maneuvers (when performed) with image documentation. Limited exam focused on the left lower extremity veins. COMPARISON: US CV venous duplex [facility] [id number] 06/11/2023 4:34 PM FINDINGS: Left deep veins: Unremarkable. The common femoral, femoral, proximal profunda femoral and popliteal veins are patent without thrombus. Normal Doppler waveforms. Patient could not tolerate assessment compressibility or augmentation response. Superficial veins: Unremarkable. Saphenofemoral junction is patent without thrombus. Soft tissues: Unremarkable. US/CV venous duplex [facility] [id number] IMPRESSION: No evidence of deep vein thrombosis.
[2023-07-13] VITALS (10 sets, daily range): BP systolic 97–112; BP diastolic 59–72; PULSE 70–87; RESP 18–20; TEMP 36.8–37.3; O2SAT 90–94
[2023-07-13] MEDS: FUROsemide 10 mg/mL SDV 4mL 40 MG IVP ×2 (01:27→14:14)
[2023-07-13] MEDS: cefepime 1,000 MG in sodium chloride 0.9% (plus) 50 ML 100 MG IV ×2 (01:27→15:52)
[2023-07-13] MEDS: pantoprazole 40 mg SDV IVP (01:27)
[2023-07-13 04:13] LABS: Basophils % 0.3 %; Eosinophils # 0.2 10^3/uL (0.0-0.8); Eosinophils % 1.8 %; Hematocrit 31.5 % (36-47); Lymphocytes # 1.2 10^3/uL (0.8-4.8); Lymphocytes % 11.1 %; Mean Corpuscular HGB Conc 29.2 g/dL (30-55); Mean Corpuscular Hemoglobin 27.7 pg (27-33); Mean Corpuscular Volume 94.9 fl (85-98); Mean Platelet Volume 9.3 fL (7.4-10.4); Monocytes # 1.1 10^3/uL (0.2-0.9); Monocytes % 10.2 %; Neutrophils # 8.15 10^3/uL (1.8-7.7); Neutrophils % 76.3 %; Nucleated Red Blood Cells % 0 %; Platelet Count 418 10^3/cmm (157-399); Red Blood Count 3.32 10^6/uL (3.85-5.65); Red Cell Distribution Width 15.9 % (12.1-15.1); White Blood Count 10.68 10^3/uL (3.29-11.43)
[2023-07-13 05:11] LABS: Vancomycin Trough 21.8 ug/mL (10-15)
[2023-07-13 05:24] LABS: Magnesium 1.4 mg/dL (1.7-2.3); Phosphorus 3.7 mg/dL (2.5-4.5)
[2023-07-13 05:31] LABS: Alanine Aminotransferase 7 U/L (0-33); Albumin Level 2.9 g/dL (3.5-5.2); Alkaline Phosphatase 74 U/L (35-105); Anion Gap 9.6 (5-19); Aspartate Amino Transferase 12 U/L (0-32); Blood Urea Nitrogen 9 mg/dL (8-23); Carbon Dioxide 35 mmol/L (22-29); Chloride 101 mmol/L (98-107); Globulin 3.3 g/dL (1.3-4.6); Glomerular Filtration Rate 224.7 mL/min (90-130); Glucose 103 mg/dL (65-115); Osmolality Calculated 293 mOsm/kg (285-295); Potassium 3.6 mmol/L (3.5-5.1); Sodium 142 mmol/L (136-145); Total Bilirubin 0.2 mg/dL (0.15-1.2); Total Protein 6.2 g/dL (6.6-8.7)
--- NOTE | 2023-07-13 05:48 | PC.PHAR ---
Pharmacokinetic dosing service Date: 07/13/23 Time: 0548 Patient: Polina Snyder Floor: 259-2 Weight: 81.647 Kilograms Vancomycin single level analysis: Current dose being given: 1250 mg Current dosing interval: 8 hrs Current infusion time (hrs): 1 Single level Trough Data: Trough level obtained: 21.8 mcg/ml Timing of trough - # of hrs before next dose: 1 Hrs Desired peak: 40 mcg/ml Desired trough: 15 mcg/ml Diagnosis: Relevant medical/social history: Cultures and sensitivities: Other labs: Estimated PK Parameters: New rate constant (gen): 0.082 hr-1 Half-life: 8.45 Hours Vd from levels: 73.48 Liters (0.7 L/kg) CLvanco=?? 6.025 L/hr Estimated New Dose and Interval Recommended dose: 2007.1 mg Recommended interval: 13.0 Hrs Patient response: Patient is responding to treatment [yes/no] wbc decreasing, S/SX reduced [yes/no] Renal function is stable/unstable Recommendations: Give Vancomycin 1500 mg q 12 hrs. Infuse over 1 hrs Expected Cpeak: 31.3 mcg/mL Expected Ctrough: 12.7 mcg/mL AUC 0-24 /HIRA Data: HIRA 0.5 mcg/mL:?? AUC/HIRA:? 995.9 HIRA 1.0 mcg/mL:?? AUC/HIRA:? 497.9 Recommended labs and intervals: Measure Bun and Scr 3 times/week. Renal dosing of other antibiotics (review renal dosing of other medications and list guidelines here): Thank you for the consult, will continue to follow. Blanche Suggs [facility]
[2023-07-13 06:52] LABS: Glucose Point of Care 102 mg/dL (70-110)
[2023-07-13] MEDS: budesonide 0.5 mg/2 mL Neb INHALATION (08:06)
[2023-07-13] MEDS: methadone 10 mg Tablet PO (09:59)
[2023-07-13] MEDS: diazePAM 5 mg Tablet PO (09:59)
[2023-07-13] MEDS: venlafaxine ER (24HR) 150 mg Capsule PO (10:00)
[2023-07-13] MEDS: gabapentin 300 mg Capsule PO ×3 (10:00→21:10)
[2023-07-13] MEDS: BuSPIRONE 10 mg Tablet 5 MG PO ×3 (10:00→21:10)
[2023-07-13] MEDS: atenolol 50 mg Tablet 100 MG PO ×2 (10:00→18:04)
[2023-07-13] MEDS: potassium chloride ER 20 mEq Tablet PO ×2 (10:00→18:04)
[2023-07-13] MEDS: apixaban 5 mg Tablet 2.5 MG PO ×2 (10:00→21:11)
[2023-07-13] MEDS: vancomycin 1,500 MG/300 ML PIGGYBACK 200 MG IV ×2 (10:30→21:11)
[2023-07-13 11:17] LABS: Glucose Point of Care 159 mg/dL (70-110)
--- NOTE | 2023-07-13 13:38 | PM.PN ---
Subjective Subjective: Reports that she did sleep better last night. Reports pain in LLE, better than yesterday. Asking if she is able to go home yet. Vitals/I&O/Wt Last Vital Signs Temp 98.5 F 07/13/23 12:00 Pulse 77 07/13/23 12:00 Resp 20 H 07/13/23 12:00 BP 105/64 07/13/23 12:00 Pulse Ox 91 07/13/23 12:00 O2 Del Method Nasal Cannula 07/13/23 12:00 O2 Flow Rate 1.5 07/13/23 08:06 07/12/23 07/13/23 07/13/23 22:59 06:59 14:59 Intake Total 600 / 1020 50 / 1070 480 / 480 Output Total 1200 / 1200 1400 / 2600 Balance -600 / -180 -1350 / -1530 480 / 480 Weight last 48 hrs Weight 180 lb Physical Exam Narrative: General: Patient appearstired, emotional. HEENT: Normocephalic, Atraumatic. External ears normal. Nasal passages patent without drainage. MMM. Heart: RRR. Resp: Lungs with fine rales at the bases. Otherwise clear to auscultation. No respiratory distress or use of accessory muscles. Abd: Soft, non-tender. Non-distended. Extremities: Right BKA Left lower extremity, has weeping edema, 2+ of lower extremity, with erythema extending all the way up to the distal to the knee joint, does have some calf swelling, no tenderness, she also has some erythema, swelling around her left thigh, extending to the left buttocks Neuro: No focal motor or sensory loss. Gait is normal. Urinary Catheter Management: Garber: Cath Placed During This Visit: yes Reason for Continuing Indwelling Catheter: Other Urinary Catheter Date of Insertion: 07/12/23 Urinary Catheter Time of Insertion: 01:00 Data 07/13/23 04:07 07/13/23 04:07 Micro: Microbiology 07/11/23 20:55 Blood Culture - Preliminary Blood NEGATIVE TO DATE 07/11/23 20:43 Blood Culture - Preliminary Blood NEGATIVE TO DATE A&P Assessment and plan (1) Cellulitis: (2) Left leg swelling: (3) Left leg cellulitis: (4) Pulmonary embolism: (5) Traumatic hematoma of buttock: (6) Leg ulcer, left: Qualifiers: Non-pressure ulcer stage: limited to breakdown of skin Qualified Code(s): L97.921 - Non-pressure chronic ulcer of unspecified part of left lower leg limited to breakdown of skin (7) Essential hypertension: (8) Fluid overload: (9) Diastolic CHF, acute: Plan 63-year-old female admitted for left lower extremity cellulitis, swelling and pain. Continue close inpatient monitoring. Ultrasound was negative for DVT. Blood and wound cultures are pending, currently negative. Currently receiving vancomycin and cefepime for cellulitis. WBC inproved today to 10.7. ESR and CRP were elevated on admission. Recheck tomorrow. Procal: 0.05. Magnesium 1.3. Will replace and recheck. CT Abd/Pelvis show improvement in fluid collection in left buttock. Continue sliding scale insulin. Vitals are stable. On 1-2L O2 per N/C. Will consider consult with podiatry in the next 1-2 days if no improvement with antibiotics. Continue methadone and diazepam for pain and anxiety. Added oxycodone for breakthrough pain. Continue IV Lasix for diuresis. Strict I's and O's. Will have nursing provide wound care and wraps to LLE. Continue Eliquis for previous DVT/PE treatment and prophylaxis. Consider increasing, but will await results of CT. Code Status: Full IVF: None DVT PPx: Eliquis GI PPx: Protonix ABx: Vancomycin, cefepime Diet: Carb consistent Discharge plan: To be determined Attestations Medical Necessity Statement*: Will need continued inpatient stay for IV antibiotics, cultures, consults, and possibly wound care. Coding Level of Care Code Acute Code for Chg Fwd Moderate MDM includes number and complexity of problems actively addressed during encounter, amount and/or complexity of data reviewed/ordered and described risk of complication, morbidity or mortality of management as documented Diagnoses Cellulitis L03.90 Left leg swelling M79.89 Left leg cellulitis L03.116 Pulmonary embolism I26.99 Traumatic hematoma of buttock S30.0XXA Leg ulcer, left L97.921 Non-pressure ulcer stage: limited to breakdown of skin Essential hypertension I10 Fluid overload E87.70 Diastolic CHF, acute I50.31
[2023-07-13 17:16] LABS: Glucose Point of Care 176 mg/dL (70-110)
[2023-07-13] MEDS: insulin lispro 100 unit/1 mL SUBCUT (18:03)
[2023-07-13 20:25] LABS: Glucose Point of Care 143 mg/dL (70-110)
[2023-07-14] VITALS (10 sets, daily range): BP systolic 119–137; BP diastolic 63–76; PULSE 70–84; RESP 16–21; TEMP 36.4–37.2; O2SAT 90–96
[2023-07-14] MEDS: pantoprazole 40 mg SDV IVP (02:00)
[2023-07-14] MEDS: FUROsemide 10 mg/mL SDV 4mL 40 MG IVP ×2 (02:00→14:07)
[2023-07-14] MEDS: cefepime 1,000 MG in sodium chloride 0.9% (plus) 50 ML 100 MG IV ×2 (02:38→14:13)
[2023-07-14 05:47] LABS: Basophils % 0.4 %; Eosinophils # 0.2 10^3/uL (0.0-0.8); Eosinophils % 1.9 %; Hematocrit 33.2 % (36-47); Lymphocytes # 1.3 10^3/uL (0.8-4.8); Lymphocytes % 12.9 %; Mean Corpuscular HGB Conc 29.2 g/dL (30-55); Mean Platelet Volume 9.2 fL (7.4-10.4); Monocytes % 10.4 %; Neutrophils # 7.34 10^3/uL (1.8-7.7); Neutrophils % 73.8 %; Nucleated Red Blood Cells % 0 %; Platelet Count 410 10^3/cmm (157-399); Red Blood Count 3.46 10^6/uL (3.85-5.65); Red Cell Distribution Width 15.8 % (12.1-15.1); White Blood Count 9.94 10^3/uL (3.29-11.43)
[2023-07-14 06:05] LABS: Alanine Aminotransferase < 5 U/L (0-33); Albumin Level 2.9 g/dL (3.5-5.2); Alkaline Phosphatase 74 U/L (35-105); Anion Gap 8.5 (5-19); Aspartate Amino Transferase 13 U/L (0-32); Blood Urea Nitrogen 9 mg/dL (8-23); Calcium 8.5 mg/dL (8.5-10.5); Carbon Dioxide 38 mmol/L (22-29); Chloride 100 mmol/L (98-107); Globulin 4.1 g/dL (1.3-4.6); Glomerular Filtration Rate 224.7 mL/min (90-130); Glucose 109 mg/dL (65-115); Magnesium 1.4 mg/dL (1.7-2.3); Osmolality Calculated 295 mOsm/kg (285-295); Phosphorus 3.1 mg/dL (2.5-4.5); Potassium 3.5 mmol/L (3.5-5.1); Sodium 143 mmol/L (136-145); Total Bilirubin 0.3 mg/dL (0.15-1.2)
[2023-07-14 06:44] LABS: Glucose Point of Care 117 mg/dL (70-110)
[2023-07-14] MEDS: BuSPIRONE 10 mg Tablet 5 MG PO ×3 (08:24→20:27)
[2023-07-14] MEDS: potassium chloride ER 20 mEq Tablet PO ×2 (08:24→18:23)
[2023-07-14] MEDS: methadone 10 mg Tablet PO (08:24)
[2023-07-14] MEDS: apixaban 5 mg Tablet 2.5 MG PO ×2 (08:24→20:27)
[2023-07-14] MEDS: gabapentin 300 mg Capsule PO ×3 (08:25→20:27)
[2023-07-14] MEDS: atenolol 50 mg Tablet 100 MG PO ×2 (08:25→18:23)
[2023-07-14] MEDS: venlafaxine ER (24HR) 150 mg Capsule PO (08:26)
[2023-07-14] MEDS: vancomycin 1,500 MG/300 ML PIGGYBACK 100 MG IV ×2 (08:27→20:28)
[2023-07-14] MEDS: ipratropium-albuterol 3 mL Neb INHALATION ×2 (09:08→20:34)
[2023-07-14] MEDS: budesonide 0.5 mg/2 mL Neb INHALATION ×2 (09:08→20:34)
[2023-07-14 09:42] LABS: C Reactive Protein 78.5 mg/L (0.0-4.9)
--- NOTE | 2023-07-14 11:11 | P.PN_ITS ---
Subjective Subjective: Reports she was able to tolerate the dressing change well yesterday. States that she did get some rest last night as well. She has been eating and drinking okay. She is again requesting to be discharged today if possible. Vitals/I&O/Wt Last Vital Signs Temp 98.3 F 07/14/23 08:00 Pulse 80 07/14/23 09:08 Resp 18 07/14/23 09:08 BP 132/73 07/14/23 08:00 Pulse Ox 96 07/14/23 09:08 O2 Del Method Nasal Cannula 07/14/23 09:08 O2 Flow Rate 2 07/14/23 09:08 07/13/23 07/14/23 07/14/23 22:59 06:59 14:59 Intake Total 170 / 950 350 / 1300 Output Total 1800 / 1800 1000 / 2800 Balance -1630 / -850 -650 / -1500 Physical Exam Narrative: General: Patient appearstired, emotional. HEENT: Normocephalic, Atraumatic. External ears normal. Nasal passages patent without drainage. MMM. Heart: RRR. Resp: Lungs with fine rales at the bases. Otherwise clear to auscultation. No respiratory distress or use of accessory muscles. Abd: Soft, non-tender. Non-distended. Extremities: Right BKA. LLE with erythema throughout the lower leg, and up the thigh. Appears improved from last exam. There is serosanguinous weeping from the lower leg, with slough present. Urinary Catheter Management: Garber: Cath Placed During This Visit: yes Reason for Continuing Indwelling Catheter: Other Urinary Catheter Date of Insertion: 07/12/23 Urinary Catheter Time of Insertion: 01:00 Data 07/14/23 05:15 07/14/23 05:15 A&P Assessment and plan (1) Cellulitis: (2) Left leg swelling: (3) Left leg cellulitis: (4) Pulmonary embolism: (5) Traumatic hematoma of buttock: (6) Leg ulcer, left: Qualifiers: Non-pressure ulcer stage: limited to breakdown of skin Qualified Code( s): L97.921 - Non-pressure chronic ulcer of unspecified part of left lower leg limited to breakdown of skin (7) Essential hypertension: (8) Fluid overload: (9) Diastolic CHF, acute: Plan 63-year-old female admitted for left lower extremity cellulitis, swelling and pain. Continue close inpatient monitoring. Ultrasound was negative for DVT. Blood and wound cultures are pending, currently negative. Currently receiving vancomycin and cefepime for cellulitis. Continue daily wound care, dressing changes. WBC and platelets now normal. Magnesium 1.4. Will replace and recheck. Continue sliding scale insulin. Vitals are stable. On 1-2L O2 per N/C. Will hold on Podiatry referral for now. Discussed that we may be able to discharge her home tomorrow on oral abx and follow up in my office in 1-2 days. Will need arrangements for wound care and /or possibly referral to podiatry. Discussed in depth that she will need to keep her animals away from her leg, and make sure that she is keeping the leg clean and covered at all times. In addition, she needs to spend a lot of the time with the LLE elevated so as to keep the LE edema controlled. Continue IV Lasix, K supplement. Strict I's and O's. Will have nursing provide wound care and wraps to LLE. Continue Eliquis for previous DVT/PE treatment and prophylaxis. Code Status: Full IVF: None DVT PPx: Eliquis GI PPx: Protonix ABx: Vancomycin, cefepime Diet: Carb consistent Discharge plan: To be determined Attestations Medical Necessity Statement*: Will need continued inpatient stay for IV antibiotics, cultures, consults, and possibly wound care. Coding Level of Care Code Acute Code for Chg Fwd Moderate MDM includes number and complexity of problems actively addressed during encounter, amount and/or complexity of data reviewed/ordered and described risk of complication, morbidity or mortality of management as documented Diagnoses Cellulitis L03.90 Left leg swelling M79.89 Left leg cellulitis L03.116 Pulmonary embolism I26.99 Traumatic hematoma of buttock S30.0XXA Leg ulcer, left L97.921 Non-pressure ulcer stage: limited to breakdown of skin Essential hypertension I10 Fluid overload E87.70 Diastolic CHF, acute I50.31
--- NOTE | 2023-07-14 12:05 | PC.SOCIAL ---
IMM Update pg 2 of IMM updated and reviewed w/ patient. Copy provided and Copy dated, initialed and placed in chart.
[2023-07-14 13:00] LABS: Glucose Point of Care 192 mg/dL (70-110)
[2023-07-14] MEDS: magnesium sulfate premix 2 GM/50 ML PIGGYBACK IV (14:07)
[2023-07-14 18:23] LABS: Glucose Point of Care 173 mg/dL (70-110)
[2023-07-14] MEDS: oxyCODONE-APAP 5-325 mg Tablet 1 TAB PO (20:31)
[2023-07-14 21:42] LABS: Glucose Point of Care 153 mg/dL (70-110)
[2023-07-15] VITALS (9 sets, daily range): BP systolic 109–127; BP diastolic 56–77; PULSE 68–84; RESP 16–17; TEMP 36.6–37.1; O2SAT 90–93
[2023-07-15] MEDS: FUROsemide 10 mg/mL SDV 4mL 40 MG IVP ×2 (00:46→12:24)
[2023-07-15] MEDS: pantoprazole 40 mg SDV IVP (00:46)
[2023-07-15] MEDS: cefepime 1,000 MG in sodium chloride 0.9% (plus) 50 ML 100 MG IV ×2 (02:53→15:52)
[2023-07-15 03:20] LABS: Glucose Point of Care 128 mg/dL (70-110)
[2023-07-15 06:54] LABS: Glucose Point of Care 111 mg/dL (70-110)
[2023-07-15] MEDS: atenolol 50 mg Tablet 100 MG PO (08:00)
[2023-07-15] MEDS: potassium chloride ER 20 mEq Tablet PO (08:00)
[2023-07-15] MEDS: apixaban 5 mg Tablet PO (08:00)
[2023-07-15] MEDS: venlafaxine ER (24HR) 150 mg Capsule PO (08:00)
[2023-07-15] MEDS: methadone 10 mg Tablet PO (08:01)
[2023-07-15] MEDS: gabapentin 300 mg Capsule PO ×2 (08:01→15:52)
[2023-07-15] MEDS: BuSPIRONE 10 mg Tablet 5 MG PO ×2 (08:02→15:52)
[2023-07-15 08:10] LABS: Basophils % 0.3 %; Eosinophils # 0.2 10^3/uL (0.0-0.8); Eosinophils % 1.8 %; Hematocrit 34.2 % (36-47); Lymphocytes # 1.5 10^3/uL (0.8-4.8); Lymphocytes % 12.7 %; Mean Corpuscular HGB Conc 29.5 g/dL (30-55); Mean Corpuscular Hemoglobin 27.4 pg (27-33); Mean Corpuscular Volume 92.7 fl (85-98); Mean Platelet Volume 9.4 fL (7.4-10.4); Monocytes % 8.7 %; Neutrophils # 8.96 10^3/uL (1.8-7.7); Neutrophils % 76.1 %; Nucleated Red Blood Cells % 0 %; Platelet Count 458 10^3/cmm (157-399); Red Blood Count 3.69 10^6/uL (3.85-5.65); Red Cell Distribution Width 15.4 % (12.1-15.1); White Blood Count 11.78 10^3/uL (3.29-11.43)
[2023-07-15] MEDS: ipratropium-albuterol 3 mL Neb INHALATION (08:11)
[2023-07-15] MEDS: budesonide 0.5 mg/2 mL Neb INHALATION (08:11)
[2023-07-15 08:23] LABS: Vancomycin Trough 19.5 ug/mL (10-15)
[2023-07-15 08:35] LABS: Anion Gap 10.9 (5-19); Blood Urea Nitrogen 11 mg/dL (8-23); Calcium 8.6 mg/dL (8.5-10.5); Carbon Dioxide 36 mmol/L (22-29); Chloride 96 mmol/L (98-107); Glomerular Filtration Rate 224.7 mL/min (90-130); Glucose 131 mg/dL (65-115); NT Pro B Type Natriuretic Pept 1289 pg/mL (0-125); Osmolality Calculated 289 mOsm/kg (285-295); Potassium 3.9 mmol/L (3.5-5.1); Sodium 139 mmol/L (136-145)
--- NOTE | 2023-07-15 09:52 | PM.DCS ---
Discharge Providers Date of Admission: 07/11/23 22:10 Date of Discharge: July 15, 2023 Attending Provider at Admission: Jose Tapia MD Attending Provider at Discharge: Jose Tapia MD Primary Care Provider: Wilner Hdez DO Diagnoses at Discharge Discharge Diagnosis (1) Cellulitis: Status: Acute (2) Left leg swelling: Status: Acute (3) Left leg cellulitis: Status: Acute (4) Pulmonary embolism: Status: Acute (5) Traumatic hematoma of buttock: Status: Acute (6) Leg ulcer, left: Status: Acute Qualifiers: Non-pressure ulcer stage: limited to breakdown of skin Qualified Code(s): L97.921 - Non-pressure chronic ulcer of unspecified part of left lower leg limited to breakdown of skin (7) Essential hypertension: Status: Acute (8) Fluid overload: Status: Acute (9) Diastolic CHF, acute: Status: Acute Reason for Visit Reason for Visit: FOOT PAIN Hospital Course Hospital Course Polina Snyder is a 63 year old female with a past medical history of insulin-dependent type 2 diabetes mellitus, history of smoking, history of COPD, history of chronic methadone, recent hospitalization for pulmonary embolism, currently on low-dose Eliquis for left pulm office hematoma?? Recently hospitalized for left leg cellulitis, altered mental status, her dose of methadone was decreased to 10 mg once daily during that hospitalization due to altered mental status, who presents to [facility] due to increased swelling of her left leg, increased erythema, tenderness, denies any fevers, chills, she has noticed increased drainage, around her toes, reports weeping edema, she does have pets at home, reports cats and dogs, denies any cat or dog bites, Patient was admitted to [facility] for left leg swelling, erythema, admitted for diastolic CHF exacerbation, fluid overload, left leg cellulitis, received IV antibiotics, inpatient diuresis, overall clinically improved. She was diuresed over 8 L, discharged on Lasix 40 mg once daily with potassium replacement therapy with a follow-up with primary care provider as outpatient. For her cellulitis she was discharged on 5 remaining days of p.o. Augmentin and doxycycline. She has a history of left hip hematoma, repeat CT of the left hip, did not show any significant enlargement of the hematoma radiographically. She is recently diagnosed with a pulmonary embolism and discharged on the hospital 06/19/2023, discharged on low-dose Eliquis 2.5 mg twice daily possibly because of her left hip hematoma, as her hemoglobin remained stable as inpatient and radiographically the size of hematoma has remained stable, I discharged her on therapeutic dose of Eliquis 5 mg twice daily. She is to follow-up with primary care provider for recheck hemoglobin in 1 to 3 days. She also has a left heel ulcer, and needs to be monitored as outpatient, follow-up with Dr. Garrido. Physical Exam Const: COMMON NORMALS: no acute distress and patient oriented x3 Resp: COMMON NORMALS: normal respiratory effort, No retractions, No use of accessory muscles and clear to auscultation bilaterally AUSCULTATION: clear to auscultation bilaterally Cardio: COMMON NORMALS: regular rate, regular rhythm, S1 normal heart sound present and S2 normal heart sound present RATE: regular rate RHYTHM: regular rhythm HEART SOUNDS: S1 normal heart sound present and S2 normal heart sound present GI: COMMON NORMALS: Normal to inspection, nondistended, normoactive bowel sounds present and non-tender Extremity: NARRATIVE EXTREMITY EXAM: Left leg swelling, erythema significantly improved -Left heel ulcer, well demarcated borders measuring by 2 x 3 cm, Neuro: COMMON NORMALS: patient oriented x3 Psych: COMMON NORMALS: mental status grossly normal Urinary Catheter Management: Garber: Cath Placed During This Visit: yes Reason for Continuing Indwelling Catheter: Other Urinary Catheter Date of Insertion: 07/12/23 Urinary Catheter Time of Insertion: 01:00 Discharge Data Studies Completed and Pending Completed Studies During Hospitalization Category Date Time Status CT abdomen pelvis wo con [id number] Routine Cat Scan 07/12/23 23:[address] foot LT w con [id number] Stat Cat Scan 07/11/23 20:24 Completed XR chest 1V portable [id number] Routine Exams 07/12/23 23:18 [place] [id number] Routine Ultrasound 07/12/23 23:18 Completed Pending at discharge Category Date Time Status Blood Culture Stat Lab 07/11/23 20:55 Results Radiology Impressions Foot CT 07/11/23 20:24 IMPRESSION: 1. Severe cellulitis in the lower leg, ankle, dorsal foot, and toes. 2. No organized fluid collection or abscess identified. 3. Small ulceration over the plantar surface of the distal 1st metatarsal. 4. No definite evidence for active osteomyelitis. Venous Duplex 07/12/23 23:18 IMPRESSION: No evidence of deep vein thrombosis. Laboratory Results WBC 11.78 10^3/uL (3.29-11.43) H 07/15/23 07:53 RBC 3.69 10^6/uL (3.85-5.65) L 07/15/23 07:53 Hgb 10.10 g/dL (11.27-16.99) L 07/15/23 07:53 Hct 34.2 % (36-47) L 07/15/23 07:53 MCV 92.7 fl (85-98) 07/15/23 07:53 MCH 27.4 pg (27-33) 07/15/23 07:53 MCHC 29.5 g/dL (30-55) L 07/15/23 07:53 RDW 15.4 % (12.1-15.1) H 07/15/23 07:53 Plt Count 458 10^3/cmm (157-399) H 07/15/23 07:53 MPV 9.4 fL (7.4-10.4) 07/15/23 07:53 Neut % (Auto) 76.1 % 07/15/23 07:53 Lymph % (Auto) 12.7 % 07/15/23 07:53 Henry % (Auto) 8.7 % 07/15/23 07:53 Eos % (Auto) 1.8 % 07/15/23 07:53 Baso % (Auto) 0.3 % 07/15/23 07:53 Neut # (Auto) 8.96 10^3/uL (1.8-7.7) H 07/15/23 07:53 Lymph # (Auto) 1.5 10^3/uL (0.8-4.8) 07/15/23 07:53 Henry # (Auto) 1.0 10^3/uL (0.2-0.9) H 07/15/23 07:53 Eos # (Auto) 0.2 10^3/uL (0.0-0.8) 07/15/23 07:53 Baso # (Auto) 0.0 10^3/uL (0.0-0.1) 07/15/23 07:53 Nucleated RBC % (auto) 0 % 07/15/23 07:53 Nucleated RBCs # 0.0 /100WBC 07/15/23 07:53 ESR 69 mm/hr (0-15) H 07/11/23 20:25 Specimen Type Arterial 07/12/23 00:01 Sample Site Brachial, right 07/12/23 00:01 ABG pH 7.37 (7.35-7.45) 07/12/23 00:01 ABG pCO2 58.2 mmHg (35-45) H 07/12/23 00:01 ABG pO2 63.0 mmHg (80.0-100.0) L 07/12/23 00:01 ABG HCO3 33.6 mmol/L (22-26) H 07/12/23 00:01 ABG Base Excess 7.0 mmol/L (-2.0-2.0) H 07/12/23 00:01 Abdoulaye Test N/a 07/12/23 00:01 Hematocrit 30.6 % (37-47) L 07/12/23 00:01 O2 Delivery Device Nc 07/12/23 00:01 O2 Liters/Min 2.0 % 07/12/23 00:01 FiO2 28.0 % 07/12/23 00:01 [employer] ID Olyajan 07/12/23 00:01 Sodium 139 mmol/L (136-145) 07/15/23 07:53 Potassium 3.9 mmol/L (3.5-5.1) 07/15/23 07:53 Chloride 96 mmol/L (98-107) L 07/15/23 07:53 Carbon Dioxide 36 mmol/L (22-29) H 07/15/23 07:53 Anion Gap 10.9 (5-19) 07/15/23 07:53 BUN 11 mg/dL (8-23) 07/15/23 07:53 Creatinine 0.3 mg/dL (0.5-0.9) L 07/15/23 07:53 GFR Calculation 224.7 mL/min (90-130) H 07/15/23 07:53 Glucose 131 mg/dL (65-115) H 07/15/23 07:53 POC Glucose 111 mg/dL (70-110) H 07/15/23 06:48 Estimat Average Glucose 131 07/11/23 20:25 Hemoglobin A1c 6.2 % (4.0-6.0) H 07/11/23 20:25 Calculated Osmolality 289 mOsm/kg (285-295) 07/15/23 07:53 Lactic Acid 1.6 mmol/L (0.5-2.2) 07/11/23 20:43 Calcium 8.6 mg/dL (8.5-10.5) 07/15/23 07:53 Phosphorus 3.1 mg/dL (2.5-4.5) 07/14/23 05:15 Magnesium 1.4 mg/dL (1.7-2.3) L 07/14/23 05:15 Total Bilirubin 0.3 mg/dL (0.15-1.2) 07/14/23 05:15 AST 13 U/L (0-32) 07/14/23 05:15 ALT < 5 U/L (0-33) 07/14/23 05:15 Alkaline Phosphatase 74 U/L (35-105) 07/14/23 05:15 Troponin T Baseline 18 ng/L (0-10) H 07/11/23 23:20 Troponin T 120 Minute 18.68 ng/L (0-10) H 07/12/23 00:40 Delta Troponin T 0.68 ABS# (0-10) 07/12/23 00:40 Troponin T Hi Sens 6Hr 22.23 ng/L (0-10) H 07/12/23 05:10 Troponin T Hi Sens 6Hr Delta 4.23 ng/L (0-12) 07/12/23 05:10 C-Reactive Protein 78.5 mg/L (0.0-4.9) H 07/14/23 05:15 NT-Pro-B Natriuret Pep 1289 pg/mL (0-125) H 07/15/23 07:53 Total Protein 7.0 g/dL (6.6-8.7) 07/14/23 05:15 Albumin 2.9 g/dL (3.5-5.2) L 07/14/23 05:15 Globulin 4.1 g/dL (1.3-4.6) 07/14/23 05:15 Triglycerides 201 mg/dL (0-150) H 07/11/23 23:20 Cholesterol 109 mg/dL (0-200) 07/11/23 23:20 LDL Cholesterol, Calc 43 mg/dL (50-129) L 07/11/23 23:20 HDL Cholesterol 26 mg/dL (60-100) L 07/11/23 23:20 LDL/HDL Ratio 1.65 RATIO (0.00-3.22) 07/11/23 23:20 Cholesterol/HDL Ratio 4.19 mg/dL (0.0-4.40) 07/11/23 23:20 Procalcitonin 0.05 ng/mL (0-0.5) 07/11/23 23:20 TSH 1.71 uIU/mL (0.27-4.20) 07/11/23 23:20 Vancomycin Trough 19.5 ug/mL (10-15) H 07/15/23 07:53 Vitals Last Vital Signs Temp 97.9 F 07/15/23 04:00 Pulse 84 07/15/23 08:14 Resp 16 07/15/23 08:05 BP 127/77 07/15/23 04:00 Pulse Ox 93 07/15/23 08:05 O2 Del Method Nasal Cannula 07/15/23 08:05 O2 Flow Rate 3 07/15/23 08:05 Discharge Plan Discharge Patient Disposition: Home Condition: Stable Prescriptions: New amoxicillin-pot clavulanate 875-125 mg tablet 1 tab PO BID 5 Days Qty: 10 0RF doxycycline hyclate 100 mg tablet 100 mg PO BID 5 Days Qty: 10 0RF Continued (DME) [employer] Lift See Rx Instructions .Route .MEDSUPPLY Qty: 1 0RF Rx Instructions: Please issue mechanical or electric lift for patient to use at home for transfers and mobility due to high risk of falls, R AKA, Charcot foot of the Left foot. (DME) Hospital bed See Rx Instructions .Route .MEDSUPPLY Qty: 1 0RF Rx Instructions: As directed silver sulfadiazine [Silvadene] 1 % cream 1 applic topical BID Qty: 20 0RF Rx Instructions: apply a 1.5 mm thickness miscellaneous medical supply Misc See Rx Instructions .ROUTE .COMPLEX Qty: 1 0RF Rx Instructions: Please issue Motorized wheelchair. ketoconazole 2 % shampoo See Rx Instructions .ROUTE .COMPLEX Qty: 120 0RF Dose Instruction: USE NEEDED TO SCALP Rx Instructions: USE NEEDED TO SCALP hydrocortisone acetate [Anusol-HC] 25 mg suppository 25 mg OH DAILY Qty: 12 2RF Rx Instructions: May use daily x 7 days, then need two weeks off prior to using again. fluticasone propionate 50 mcg/actuation spray,suspension 2 spray INTRANASAL DAILY PRN (Reason: Allergy Symptoms) Probiotic Blend 2 billion cell-50 mg Capsule 1 cap PO DAILY PRN (Reason: unknown) Rx Instructions: give with meal/snack venlafaxine 75 mg capsule,extended release 24hr 75 mg PO QAM atenolol 100 mg tablet 100 mg PO BID prochlorperazine maleate [Compazine] 10 mg tablet 10 mg PO BID PRN (Reason: Nausea And Vomiting) fenofibrate micronized 200 mg capsule 200 mg PO BEDTIME lidocaine-prilocaine 2.5-2.5 % cream 1 applic topical BID PRN (Reason: unknown) pantoprazole 40 mg tablet,delayed release (DR/EC) 40 mg PO QPM albuterol sulfate 90 mcg/actuation HFA aerosol inhaler 2 puff inhalation Q6H PRN (Reason: Shortness Of Breath) metformin 500 mg tablet extended release 24hr 500 mg PO QAM gabapentin 300 mg Capsule 300 mg PO TID Qty: 90 0RF budesonide 0.5 mg/2 mL Suspension For Nebulization 0.5 mg inhalation BID.RESPIRATORY Qty: 30 1RF diazepam 5 mg Tablet 5 mg PO Q8H PRN (Reason: pain) Qty: 90 0RF methadone 10 mg Tablet 10 mg PO DAILY Qty: 30 0RF buspirone 5 mg tablet 5 mg PO TID Qty: 90 0RF Changed furosemide 40 mg Tablet 40 mg PO DAILY Qty: 60 0RF potassium chloride 20 mEq tablet extended release 20 meq PO DAILY Qty: 90 5RF Eliquis 5 mg Tablet 5 mg PO BID@0900,2100 Qty: 60 0RF Discharge Orders: Discharge Order (Routine); Ordered 07/15/23 Ordered By: Jose Tapia Referrals: Wilner Hdez DO [Primary Care Provider] - 1-3 days (MESSAGE SENT TO CLINIC 07/15 @ 774) Jose Garrido DPM [Physician] - 1-3 days (left heel ulcer) Discharge Diet: Cardiac Discharge Activity: Resume usual activity Patient Instructions: Opioid Safety Activity Restrictions/Additional Instructions: - For your cellulitis have discharged you on 5 remaining days of Augmentin and doxycycline -Please continue wound care -Keep area clean and dry -For your left heel ulcer please follow-up with Dr. Garrido -For your fluid overload, continue Lasix 40 mg once daily with potassium replacement -For your recent history of pulmonary embolism, I have increased her dose of Eliquis to therapeutic dose of 5 mg twice a day, please have Dr. Hdez recheck your hemoglobin in 1 to 3 days, if you develop a left hip swelling or left pain please come to the emergency room Discharge Attestations Time Spent in Discharge Care*: greater than 30 min Status at Discharge: Cognitive status at discharge: cognitively intact, Behavioral status at discharge: cooperative, Quality Metrics Clinical Quality Measures [ No reported AMI, CVA or VTE this stay] Coding Level of Care Code 45767 Total time (in minutes) for Discharge: 50 Diagnoses Cellulitis L03.90 Left leg swelling M79.89 Left leg cellulitis L03.116 Pulmonary embolism I26.99 Traumatic hematoma of buttock S30.0XXA Leg ulcer, left L97.921 Non-pressure ulcer stage: limited to breakdown of skin Essential hypertension I10 Fluid overload E87.70 Diastolic CHF, acute I50.31
[2023-07-15] MEDS: vancomycin 1,000 MG in sodium chloride 0.9% 250 ML 250 MG IV (11:21)
[2023-07-15 11:49] LABS: Glucose Point of Care 189 mg/dL (70-110)
[2023-07-15] MEDS: insulin lispro 100 unit/1 mL SUBCUT (12:21)
--- NOTE | 2023-07-15 14:42 | PC.OT ---
PER PATIENT AND CONFIRMED WITH NURSE; PATIENT IS TO D/C TODAY. NO EVALUATION TO BE COMPLETED AT THIS TIME.
[2023-07-15 16:38] LABS: Glucose Point of Care 106 mg/dL (70-110)
== END 2023-07-15 17:25 | disposition home or self-care (01) | DRG 602 ==
LOC: ER 21:21 → MEDSURG 22:32
PROVIDERS: Admitting Provider Family Medicine; Emergency Provider Emergency Medicine; PCP Family Medicine; Visit Provider Family Medicine
DX: L03.116 Cellulitis of left lower limb (principal); I50.33 Acute on chronic diastolic (congestive) heart failure; L97.921 Non-pressure chronic ulcer of unspecified part of left lower leg limited to breakdown of skin; I11.0 Hypertensive heart disease with heart failure; E11.40 Type 2 diabetes mellitus with diabetic neuropathy, unspecified; E11.622 Type 2 diabetes mellitus with other skin ulcer; F17.200 Nicotine dependence, unspecified, uncomplicated; J44.9 Chronic obstructive pulmonary disease, unspecified; Z79.891 Long term (current) use of opiate analgesic; Z86.711 Personal history of pulmonary embolism; L89.629 Pressure ulcer of left heel, unspecified stage; Z79.84 Long term (current) use of oral hypoglycemic drugs; Z79.01 Long term (current) use of anticoagulants; F41.8 Other specified anxiety disorders; E78.5 Hyperlipidemia, unspecified; Z85.118 Personal history of other malignant neoplasm of bronchus and lung; F15.90 Other stimulant use, unspecified, uncomplicated; Z96.652 Presence of left artificial knee joint; Z89.611 Acquired absence of right leg above knee; M48.061 Spinal stenosis, lumbar region without neurogenic claudication; G89.29 Other chronic pain; T50.1X6A Underdosing of loop [high-ceiling] diuretics, initial encounter
CPT/HCPCS: 36415; 36416; 36600; 51702; 71045; 73701; 74176; 80048; 80053; 80061; 80202; 82803; 82962; 83036; 83605; 83735; 83880; 84100; 84145; 84443; 84484; 85025; 85651; 86140; 87040; 93005; 93971; 94640; 94664; 96365; 96372; 99285; C9113; J0692; J1815; J1940; J2405; J3370; J3475; J7050; J7626; Q9967

== ENCOUNTER 2023-07-17 09:41 | Emergency (ER) | payer MEDICARE, MEDICAID, SELFPAY ==
[2023-07-17 09:42] VITALS: BP 147/83; PULSE 87; RESP 18; TEMP 36.9; O2SAT 92; BMI 29.0
--- NOTE | 2023-07-17 09:50 | ED_ITS ---
HPI - General Adult General: Chief complaint: Altered Mental Status Stated complaint: AMS Time Seen by Provider: 07/17/23 09:45 Source: patient Mode of arrival: ambulatory History of Present Illness: 63-year-old female presents emergency room with altered mental status she went to the [facility] clinic was altered running her wheelchair into the wall. She is talking nonsense on arrival here she is tearful does contribute to her history. She admitted to recent methamphetamine use but states she is quit in and not being used anymore. She has a known history of PE she is on Eliquis she is not particularly short of breath. No fever sweats chills no chest pain. Slight productive cough and wheezing is on oral antibiotics. Onset (ago): minute(s) Relieving factors: none Exacerbating factors: none Associated symptoms: Reports confusion and decreased appetite; Deny chest pain, cough, diaphoresis, dyspnea, fevers/chills, headache(s), malaise, nausea, rash, palpitations, seizures, short of breath, syncope, vomiting or weakness Treatments prior to arrival: none Review of Systems Const: Denies: fever(s), chills, malaise or diaphoresis ENMT: Denies: throat pain, ear or mastoid pain, nasal discharge or nasal congestion Card: Denies: chest pain, palpitations or syncope Resp: Denies: dyspnea GI: Denies: nausea or vomiting : Denies: flank pain, difficulty voiding, dysuria, urinary frequency or urinary urgency Skin/Breast: Denies: rash Neuro: Reports: confusion; Denies: headache(s) [facility], [facility] ED PFSH: Medical History AMS (altered mental status) Anemia Cellulitis Cervical post-laminectomy syndrome [id number] disease-like deformity of foot right Chronic pain Closed femur fracture Closed fracture of left distal femur COPD (chronic obstructive pulmonary disease) Degenerative joint disease of left knee Depression with anxiety Diabetes mellitus, type II Diabetic neuropathy associated with type 2 diabetes mellitus Diastolic CHF History of cardioversion history of SVT vs for other arrhythmia History of DVT of lower extremity post-operative Hyperlipidemia Hypertension Hypertension Lumbar radiculopathy Lung cancer Metabolic encephalopathy Methamphetamine use Substance abuse Torticollis, acquired Has had good results with Botox in the past Venous stasis ulcer Surgical History History of arthroplasty of left knee (~1976) History of partial hysterectomy Hx of appendectomy Hx of dilation and curettage Hx of neck surgery x 2, posterior laminectomy and cervical fusion with hardware in place, limited ROM neck at baseline Hx of total knee replacement (~2010) Right Hx of tubal ligation Status post above-knee amputation of right lower extremity Family History Family/Other Hypertension Depression Anxiety Diabetes Father Aneurysm Mother Hypertension Brother Diabetes Sister Diabetes Social History Smoking and tobacco status: current every day smoker Alcohol intake: never Substance/Drug Use: current Substance/Drug use frequency: few times a month Marital status: Additional social history: unknown if patient continues to smoke, documented to smoke previously Female Reproductive History: Spontaneous abortions: No Physical Exam Const: GENERAL APPEARANCE: cooperative ORIENTATION/CONSCIOUSNESS: Yes awake, Yes oriented to person, Yes oriented to place and Yes oriented to time HENMT: COMMON NORMALS: normocephalic, atraumatic and hearing grossly normal bilaterally HEAD & SCALP: normocephalic and atraumatic Resp: COMMON NORMALS: normal respiratory effort, No retractions and No use of accessory muscles AUSCULTATION: rhonchi Cardio: COMMON NORMALS: regular rate, regular rhythm and No murmurs present (Cardio) RATE: regular rate RHYTHM: regular rhythm GI: COMMON NORMALS: Soft to palpation and No hepatosplenomegaly present AUSCULTATION: Yes normoactive bowel sounds PALPATION: Yes Soft to palpation, No Tenderness to palpation present (GI), No Guarding due to palpation present (GI) and Yes No hepatosplenomegaly present Neuro: SENSORIUM/ORIENTATION: Yes oriented to person, Yes oriented to place and Yes oriented to time Skin: COMMON NORMALS: no rashes or lesions noted GENERAL SKIN EXAM: no rashes or lesions noted Course Vital Signs: Vital signs: Vital Signs Temperature 98.4 F 07/17/23 09:42 Pulse Rate 61 07/17/23 15:23 Respiratory Rate 18 07/17/23 10:39 Blood Pressure 142/74 07/17/23 15:23 Pulse Oximetry 98 07/17/23 15:23 Oxygen Delivery Me thod Room Air 07/17/23 11:30 Oxygen Flow Rate 3 07/17/23 10:39 MDM - General Adult Medical Decision Making Patient prefers to go home at this point she did test positive again for methamphetamines. She is more awake and alert advised observation she declined she wants to go home she is advised she can return at any point. Encouraged to stop using methamphetamine while on the Suboxone. She was wheezing a bit we gave her a nebulizer that it helped we will discharge home on prednisone taper. Chest x-ray negative. Medical Records I reviewed the patient's medical records. Lab Data I reviewed the patient's lab results. 07/17/23 09:50 07/17/23 09:50 Laboratory Results WBC 11.08 10^3/uL (3.29-11.43) 07/17/23 09:50 RBC 4.05 10^6/uL (3.85-5.65) 07/17/23 09:50 Hgb 11.20 g/dL (11.27-16.99) L 07/17/23 09:50 Hct 37.3 % (36-47) 07/17/23 09:50 MCV 92.1 fl (85-98) 07/17/23 09:50 MCH 27.7 pg (27-33) 07/17/23 09:50 MCHC 30.0 g/dL (30-55) 07/17/23 09:50 RDW 15.9 % (12.1-15.1) H 07/17/23 09:50 Plt Count 541 10^3/cmm (157-399) H 07/17/23 09:50 MPV 9.9 fL (7.4-10.4) 07/17/23 09:50 Neut % (Auto) 70.8 % 07/17/23 09:50 Lymph % (Auto) 16.9 % 07/17/23 09:50 [place] % (Auto) 9.1 % 07/17/23 09:50 Eos % (Auto) 2.0 % 07/17/23 09:50 Baso % (Auto) 0.6 % 07/17/23 09:50 Neut # (Auto) 7.84 10^3/uL (1.8-7.7) H 07/17/23 09:50 Lymph # (Auto) 1.9 10^3/uL (0.8-4.8) 07/17/23 09:50 [place] # (Auto) 1.0 10^3/uL (0.2-0.9) H 07/17/23 09:50 Eos # (Auto) 0.2 10^3/uL (0.0-0.8) 07/17/23 09:50 Baso # (Auto) 0.1 10^3/uL (0.0-0.1) 07/17/23 09:50 Nucleated RBC % (auto) 0 % 07/17/23 09:50 Nucleated RBCs # 0.0 /100WBC 07/17/23 09:50 Specimen Type Arterial 07/17/23 10:11 Sample Site Radial, left 07/17/23 10:11 ABG pH 7.46 (7.35-7.45) H 07/17/23 10:11 ABG pCO2 47.7 mmHg (35-45) H 07/17/23 10:11 ABG pO2 69.3 mmHg (80.0-100.0) L 07/17/23 10:11 ABG HCO3 33.7 mmol/L (22-26) H 07/17/23 10:11 ABG O2 Saturation 95.0 07/17/23 10:11 ABG Base Excess 8.8 mmol/L (-2.0-2.0) H 07/17/23 10:11 Abdoulaye Test Pos 07/17/23 10:11 A-a O2 Gradient 9.3 mmHg (5-10) 07/17/23 10:11 Hematocrit 32.2 % (37-47) L 07/17/23 10:11 Hgb O2 Saturation 92.2 % (95-100) L 07/17/23 10:11 Carboxyhemoglobin 2.5 %THgb (0.4-20.1) 07/17/23 10:11 Methemoglobin 0.4 % (0.4-1.5) 07/17/23 10:11 Total Hemoglobin 10.5 g/dL (12-16) L 07/17/23 10:11 Sodium 140.0 mmol/L (131-143) 07/17/23 10:11 Potassium 3.6 mmol/L (3.5-5.0) 07/17/23 10:11 Glucose 149.0 mg/dL (70-115) H 07/17/23 10:11 Ionized Calcium 1.2 mmol/L (1.1-1.4) 07/17/23 10:11 O2 Delivery Device Nc 07/17/23 10:11 O2 Liters/Min 2.0 % 07/17/23 10:11 FiO2 28.0 % 07/17/23 10:11 Vice President Financial ID glc 07/17/23 10:11 Sodium 137 mmol/L (136-145) 07/17/23 09:50 Potassium 4.2 mmol/L (3.5-5.1) 07/17/23 09:50 Chloride 95 mmol/L (98-107) L 07/17/23 09:50 Carbon Dioxide 33 mmol/L (22-29) H 07/17/23 09:50 Anion Gap 13.2 (5-19) 07/17/23 09:50 BUN 21 mg/dL (8-23) 07/17/23 09:50 Creatinine 0.3 mg/dL (0.5-0.9) L 07/17/23 09:50 GFR Calculation 224.7 mL/min (90-130) H 07/17/23 09:50 Glucose 143 mg/dL (65-115) H 07/17/23 09:50 Calculated Osmolality 289 mOsm/kg (285-295) 07/17/23 09:50 Calcium 9.6 mg/dL (8.5-10.5) 07/17/23 09:50 Magnesium 1.6 mg/dL (1.7-2.3) L 07/17/23 09:50 Total Bilirubin 0.4 mg/dL (0.15-1.2) 07/17/23 09:50 AST 27 U/L (0-32) 07/17/23 09:50 ALT 10 U/L (0-33) 07/17/23 09:50 Alkaline Phosphatase 95 U/L (35-105) 07/17/23 09:50 Creatine Kinase 130 U/L (26-192) 07/17/23 09:50 Total Protein 8.9 g/dL (6.6-8.7) H 07/17/23 09:50 Albumin 3.8 g/dL (3.5-5.2) 07/17/23 09:50 Globulin 5.1 g/dL (1.3-4.6) H 07/17/23 09:50 Urine Color Yellow (Yellow) 07/17/23 10:35 Urine Appearance Sl hazy (CLEAR) A 07/17/23 10:35 Urine pH 6.5 (5-7) 07/17/23 10:35 Ur Specific [place] 1.020 (1.005-1.030) 07/17/23 10:35 Urine Protein Trace (Negative) 07/17/23 10:35 Urine Glucose (UA) Norm (Normal) 07/17/23 10:35 Urine Ketones Negative (Negative) 07/17/23 10:35 Urine Blood Neg (Negative) 07/17/23 10:35 Urine Nitrate Negative (Negative) 07/17/23 10:35 Urine Bilirubin Neg (Negative) 07/17/23 10:35 Urine Urobilinogen 1 mg/dL (Negative) H 07/17/23 10:35 Ur Leukocyte Esterase Negative (Negative) 07/17/23 10:35 Urine RBC 0-4 /hpf (0-2) H 07/17/23 10:35 Urine WBC 5-10 /hpf (0-5) H 07/17/23 10:35 Ur Squamous Epith Cells 0-4 /hpf (0-5) H 07/17/23 10:35 Amorphous Sediment Not Reportable 07/17/23 10:35 Urine Bacteria Trace /hpf (NONE) 07/17/23 10:35 Urine Opiates Screen Negative ng/mL (Negative) 07/17/23 10:35 Ur Barbiturates Screen Negative ng/mL (Negative) 07/17/23 10:35 Ur Phencyclidine Scrn Negative ng/mL (Negative) 07/17/23 10:35 Ur Amphetamines Screen Positive ng/mL (Negative) H 07/17/23 10:35 U Benzodiazepines Scrn Positive ng/mL (Negative) H 07/17/23 10:35 Urine Cocaine Screen Negative ng/mL (Negative) 07/17/23 10:35 U Marijuana (THC) Screen Negative ng/mL (Negative) 07/17/23 10:35 Discharge Plan Discharge Patient Disposition: Home Clinical Impression: Chronic pain, Depression with anxiety, Methamphetamine use, Pulmonary embolism Condition: Stable Prescriptions: New Medrol (Nikita) 4 mg tablets,dose pack See Rx Instructions .ROUTE .COMPLEX Qty: 21 0RF Rx Instructions: orally per package directions albuterol sulfate 90 mcg/actuation HFA aerosol inhaler 2 inh INHALATION Q4H PRN (Reason: shortness of breath or wheezing) Qty: 18 0RF No Action (DME) Nubia Lift See Rx Instructions .Route .MEDSUPPLY Qty: 1 0RF Rx Instructions: Please issue mechanical or electric lift for patient to use at home for transfers and mobility due to high risk of falls, R AKA, Charcot foot of the Left foot. (DME) Hospital bed See Rx Instructions .Route .MEDSUPPLY Qty: 1 0RF Rx Instructions: As directed silver sulfadiazine [Silvadene] 1 % cream 1 applic topical BID Qty: 20 0RF Rx Instructions: apply a 1.5 mm thickness miscellaneous medical supply Misc See Rx Instructions .ROUTE .COMPLEX Qty: 1 0RF Rx Instructions: Please issue Motorized wheelchair. ketoconazole 2 % shampoo See Rx Instructions .ROUTE .COMPLEX Qty: 120 0RF Dose Instruction: USE NEEDED TO SCALP Rx Instructions: USE NEEDED TO SCALP hydrocortisone acetate [Anusol-HC] 25 mg suppository 25 mg TN DAILY Qty: 12 2RF Rx Instructions: May use daily x 7 days, then need two weeks off prior to using again. fluticasone propionate 50 mcg/actuation spray,suspension 2 spray INTRANASAL DAILY PRN (Reason: Allergy Symptoms) venlafaxine 75 mg capsule,extended release 24hr 75 mg PO QAM atenolol 100 mg tablet 100 mg PO BID prochlorperazine maleate [Compazine] 10 mg tablet 10 mg PO BID PRN (Reason: Nausea And Vomiting) fenofibrate micronized 200 mg capsule 200 mg PO BEDTIME lidocaine-prilocaine 2.5-2.5 % cream 1 applic topical BID PRN (Reason: unknown) pantoprazole 40 mg tablet,delayed release (DR/EC) 40 mg PO QPM albuterol sulfate 90 mcg/actuation HFA aerosol inhaler 2 puff inhalation Q6H PRN (Reason: Shortness Of Breath) metformin 500 mg tablet extended release 24hr 500 mg PO QAM gabapentin 300 mg Capsule 300 mg PO TID Qty: 90 0RF diazepam 5 mg Tablet 5 mg PO Q8H PRN (Reason: pain) Qty: 90 0RF methadone 10 mg Tablet 10 mg PO DAILY Qty: 30 0RF buspirone 5 mg tablet 5 mg PO TID Qty: 90 0RF furosemide 40 mg Tablet 40 mg PO DAILY Qty: 60 0RF Eliquis 5 mg Tablet 5 mg PO BID@0900,2100 Qty: 60 0RF potassium chloride 20 mEq tablet extended release 20 meq PO DAILY Qty: 90 5RF budesonide 0.5 mg/2 mL suspension for nebulization 0.5 mg inhalation BID PRN (Reason: Shortness Of Breath) Discharge Orders: Discharge ED (Routine); Ordered 07/17/23 Ordered By: Gene Knig Referrals: Wilner Hdez DO [Primary Care Provider] - Patient Instructions: Opioid Safety, Pain Management Activity Restrictions/Additional Instructions: We recommended observation you prefer to go home. Continue oxygen supplement at 2 to 3 L/min as needed continuously. Recommend you follow-up with your primary care doctor within the week sooner if able. Also recommend you continue your current medications you are given a burst in your steroids for a week and albuterol to use to try to improve your breathing if you have any worsening problems you are welcome to return to the emergency room to be reevaluated. Coding Level of Care Code ED Ore Mixer for Trent Crews
--- NOTE | 2023-07-17 09:59 | XR_ITS ---
WS: [id number] Exam: XR chest 1V portable [id number] Date/Time of Exam: 07/17/2023 10:00 AM Reason For Exam: dyspnea/cough Comparison 07/12/2023. Mild bilateral plaque atelectasis. The lungs are otherwise clear. Low lung volumes secondary to limit ed inspiration. Mild cardiac enlargement unchanged. No pleural effusions. Regional bony elements are intact. Fusion hardware in the visualized cervical and upper thoracic spine. IMPRESSION: 1. No acute cardiopulmonary finding. 2. Mild cardiac enlargement.
--- NOTE | 2023-07-17 10:10 | ECG_ITS ---
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 Measurements Intervals [place] Rate: 86 P: 41 MO: 153 QRS: -2 QRSD: 92 T: 45 QT: 383 QTc: 458 Interpretive Statements SINUS RHYTHM POSSIBLE LEFT ATRIAL ENLARGEMENT [-0.1mV P-WAVE IN V1/V2] POSSIBLE LEFT VENTRICULAR HYPERTROPHY [VOLTAGE CRITERIA PLUS LAE OR QRS WIDENING] Compared to ECG 07/11/2023 23:23:10 No significant changes Electronically Signed On 07-17-2023 12:11:17 CDT by Dora Rodríguez M.D. [id number]
[2023-07-17 10:11] LABS: Basophils # 0.1 10^3/uL (0.0-0.1); Basophils % 0.6 %; Eosinophils # 0.2 10^3/uL (0.0-0.8); Hematocrit 37.3 % (36-47); Lymphocytes # 1.9 10^3/uL (0.8-4.8); Lymphocytes % 16.9 %; Mean Corpuscular Hemoglobin 27.7 pg (27-33); Mean Corpuscular Volume 92.1 fl (85-98); Mean Platelet Volume 9.9 fL (7.4-10.4); Monocytes % 9.1 %; Neutrophils # 7.84 10^3/uL (1.8-7.7); Neutrophils % 70.8 %; Nucleated Red Blood Cells % 0 %; Platelet Count 541 10^3/cmm (157-399); Red Blood Count 4.05 10^6/uL (3.85-5.65); Red Cell Distribution Width 15.9 % (12.1-15.1); White Blood Count 11.08 10^3/uL (3.29-11.43)
[2023-07-17 10:23] LABS: ABG PCO2 47.7 mmHg (35-45); ABG PH Result 7.46 (7.35-7.45); Alveolar-Arterial Oxygen Gradi 9.3 mmHg (5-10); Arterial Blood Gas Hematocrit 32.2 % (37-47); Base Excess ABG 8.8 mmol/L (-2.0-2.0); Blood Gas Allen Test Pos; Blood Gas Operator Identificat glc; Blood Gas Sample Site Radial, left; Blood Gas Sample Type Arterial; Carboxyhemoglobin 2.5 %THgb (0.4-20.1); HCO3 ABG 33.7 mmol/L (22-26); HGB O2 Sat 92.2 % (95-100); Ionized Calcium Level - ABG 1.2 mmol/L (1.1-1.4); Methemoglobin 0.4 % (0.4-1.5); Oxygen Device NC; PO2 ABG 69.3 mmHg (80.0-100.0); Potassium Level - ABG 3.6 mmol/L (3.5-5.0); Total Hemoglobin 10.5 g/dL (12-16)
[2023-07-17 10:34] LABS: Alanine Aminotransferase 10 U/L (0-33); Albumin Level 3.8 g/dL (3.5-5.2); Alkaline Phosphatase 95 U/L (35-105); Anion Gap 13.2 (5-19); Aspartate Amino Transferase 27 U/L (0-32); Blood Urea Nitrogen 21 mg/dL (8-23); Calcium 9.6 mg/dL (8.5-10.5); Carbon Dioxide 33 mmol/L (22-29); Chloride 95 mmol/L (98-107); Creatine Phosphokinase 130 U/L (26-192); Globulin 5.1 g/dL (1.3-4.6); Glomerular Filtration Rate 224.7 mL/min (90-130); Glucose 143 mg/dL (65-115); Magnesium 1.6 mg/dL (1.7-2.3); Osmolality Calculated 289 mOsm/kg (285-295); Potassium 4.2 mmol/L (3.5-5.1); Sodium 137 mmol/L (136-145); Total Bilirubin 0.4 mg/dL (0.15-1.2); Total Protein 8.9 g/dL (6.6-8.7)
[2023-07-17 10:39] VITALS: BP 130/82; PULSE 83; RESP 18; O2SAT 93
[2023-07-17 11:07] LABS: Amphetamines Screen Urine Positive (Negative); Barbiturates Screen Urine Negative (Negative); Benzodiazepines Screen Urine Positive (Negative); Cocaine Screen Urine Negative (Negative); Opiate Screen Urine Negative (Negative); PCP Screen Urine Negative (Negative); THC Screen Urine Negative (Negative)
[2023-07-17 11:08] LABS: Add Urine Culture? No; Add Urine Microscopic? YES; Bacteria Urine TRACE /hpf; Bilirubin Urine Neg (Negative); Blood Urine Neg (Negative); Glucose Urine UA Norm (Normal); Ketones Urine Negative (Negative); Leukocyte Esterase Urine Negative (Negative); Nitrate Urine Negative (Negative); Protein Urine Trace (Negative); RBC Urine 0-4 /hpf (0-2); Squamous Epithelial Cell Urine 0-4 /hpf (0-5); Urine Appearance SL Hazy (CLEAR); Urine Color Yellow (Yellow); Urobilinogen Urine 1 mg/dL (Negative); pH Urine 6.5 (5-7)
[2023-07-17 11:30] VITALS: BP 119/68; PULSE 87; O2SAT 90
[2023-07-17 15:23] VITALS: BP 142/74; PULSE 61; O2SAT 98
== END 2023-07-17 15:39 | disposition home or self-care (01) ==
PROVIDERS: Emergency Provider Family Medicine; PCP Family Medicine
DX: G89.29 Other chronic pain (principal); F41.8 Other specified anxiety disorders; F15.90 Other stimulant use, unspecified, uncomplicated; I26.99 Other pulmonary embolism without acute cor pulmonale; Z79.01 Long term (current) use of anticoagulants; Z79.84 Long term (current) use of oral hypoglycemic drugs; F17.210 Nicotine dependence, cigarettes, uncomplicated; J44.9 Chronic obstructive pulmonary disease, unspecified; E11.9 Type 2 diabetes mellitus without complications; I11.0 Hypertensive heart disease with heart failure; I50.30 Unspecified diastolic (congestive) heart failure; E78.5 Hyperlipidemia, unspecified; Z85.118 Personal history of other malignant neoplasm of bronchus and lung
CPT/HCPCS: 36600; 51701; 71045; 80051; 80053; 80306; 81001; 82330; 82550; 82805; 83735; 85025; 87040; 93005; 99285

== ENCOUNTER → 2023-10-17 08:01 | Outpatient (BNVA) | payer MEDICARE, MEDICAID, SELFPAY | PROVIDERS: PCP Family Medicine; Visit Provider Nurse Practitioner Family | DX: E11.52 Type 2 diabetes mellitus with diabetic peripheral angiopathy with gangrene (principal); E11.622 Type 2 diabetes mellitus with other skin ulcer; L97.821 Non-pressure chronic ulcer of other part of left lower leg limited to breakdown of skin; L89.892 Pressure ulcer of other site, stage 2; L89.622 Pressure ulcer of left heel, stage 2 | CPT/HCPCS: 97597; 97598; 99213; A6212 ×2 ==

== ENCOUNTER → 2023-10-24 08:52 | Outpatient (BNVA) | payer MEDICARE, MEDICAID, SELFPAY | PROVIDERS: PCP Family Medicine; Visit Provider Nurse Practitioner Family | DX: E11.52 Type 2 diabetes mellitus with diabetic peripheral angiopathy with gangrene (principal); E11.622 Type 2 diabetes mellitus with other skin ulcer; L97.821 Non-pressure chronic ulcer of other part of left lower leg limited to breakdown of skin; L89.892 Pressure ulcer of other site, stage 2; L89.622 Pressure ulcer of left heel, stage 2 | CPT/HCPCS: 97597; 97598 ==

== ENCOUNTER 2023-10-26 14:15 | Inpatient (IN) | payer MEDICARE, MEDICAID, SELFPAY ==
[2023-10-26] VITALS (31 sets, daily range): BP systolic 77–125; BP diastolic 39–69; PULSE 70–747; RESP 16–19; TEMP 36.7–36.8; O2SAT 86–100; BMI 29.0
--- NOTE | 2023-10-26 14:26 | ED_ITS ---
HPI - Fever 2 General: Chief Complaint: Fever Stated Complaint: RIGHT LEG PAIN/REDNESS Time Seen by Provider: 10/26/23 14:26 History of Present Illness: 63-year-old female presents emergency de partment complaints of feeling increased fatigue and malaise as well as subjective fever for the previous 4 days. She states that she also noticed some swelling and redness to her left upper leg that was not there previously. She states she does feel nauseated and has vomited 1 time. She does have longstanding diabetes and also states that she had a right lower leg amputation. She states she was seen by wound care 2 days ago. She states that she does have a wound to her left lower leg that is not healing very well. She does appear to be slightly sedated and she states she does take methadone for her pain control. Associated symptoms: Reports extremity pain Review of Systems 2 General: Reports: 10 or more systems reviewed and unremarkable except in HPI and below Const: Reports: fever(s), fatigue and malaise Musc: Reports: extremity pain, extremity swelling and joint pain Skin/Breast: Reports: erythema (right upper thigh), skin pain and other (left lower leg wound) PFSH ED 2 PFSH: Medical History AMS (altered mental status) Anemia Cellulitis Cervical post-laminectomy syndrome [id number] disease-like deformity of foot right Chronic pain Closed femur fracture Closed fracture of left distal femur COPD (chronic obstructive pulmonary disease) Degenerative joint disease of left knee Depression with anxiety Diabetes mellitus, type II Diabetic neuropathy associated with type 2 diabetes mellitus Diastolic CHF History of cardioversion history of SVT vs for other arrhythmia History of DVT of lower extremity post-operative Hyperlipidemia Hypertension Hypertension Lumbar radiculopathy Lung cancer Metabolic encephalopathy Methamphetamine use Substance abuse Torticollis, acquired Has had good results with Botox in the past Venous stasis ulcer Surgical History History of arthroplasty of left knee (~1976) History of partial hysterectomy Hx of appendectomy Hx of dilation and curettage Hx of neck surgery x 2, posterior laminectomy and cervical fusion with hardware in place, limited ROM neck at baseline Hx of total knee replacement (~2010) Right Hx of tubal ligation Status post above-knee amputation of right lower extremity Family History Family/Other Hypertension Depression Anxiety Diabetes Father Aneurysm Mother Hypertension Brother Diabetes Sister Diabetes Social History Smoking and tobacco/nicotine status: current every day tobacco/nicotine user Alcohol intake: never Substance/Drug Use: current Substance/Drug use frequency: few times a month Additional social history: unknown if patient continues to smoke, documented to smoke previously Marital status: Female Reproductive History: Spontaneous abortions: No Physical Exam 2 Narrative: EXAM NARRATIVE: Constitutional: the patient appears well nourished and with normal development. Vital signs reviewed as documented. HENMT: Normocephalic, atraumatic. Extermal ears with normal appearance without drainage. Nose without drainage, normal appearance. Mucus membranes moist. Neck is supple, No jugular venous distension, trachea is midline, no appreciable carotid bruits. No lymphadenopathy. No meningeal signs. Flexion, extension and lateral rotation is without pain. Eyes: Pupils are equal, round, reactive to light and accommodation. No scleral icterus. Extra-ocular movement are intact. Thorax is symmetrical and with equal rise and fall with respirations. Resp: Lungs are clear to auscultation. No wheezes, rales, crackles or ronchi at present. Cardio: Regular rate and rhythm. Positive S1, S2. No appreciable murmurs, rubs or gallops. GI: Abdominal exam reveals normal bowel sounds to all quadrants. No organomegaly. No obvious palpable masses noted. No hepatomegally appreciated. Soft, nontender to palpation. Extremity: Extremities are non-edematous and both femoral and pedal pulses are 2+ and equal bilaterally. Right BKA noted to be erythematious and Left lower leg with obvious ulceration noted. Remaining appendages-moves all extremities well, sensation in all extremities. Neuro: Alert and oriented x4, person, place, time and situation. Cranial nerves II through XII are grossly intact, there is no focal neurological deficits that I can appreciate at present. Motor strength in the upper and lower extremities are equal and bilateral 5/5. Psych: Cooperative, calm, normal thought process, appropriate judgment. Skin: left lower leg with poor healing wound. Cellulitis to right upper thigh, Erythema to remaining portion of right lower extremity. Right BKA present. Back: Symmetrical, no obvious deformity, No CVA tenderness Course 2 Vital Signs: Vital signs: Vital Signs Temperature 98.2 F 10/26/23 14:21 Pulse Rate 79 10/26/23 17:00 Respiratory Rate 18 10/26/23 15:43 Blood Pressure 96/43 10/26/23 17:00 Pulse Oximetry 100 10/26/23 17:00 Oxygen Delivery Me thod Nasal Cannula 10/26/23 17:00 Oxygen Flow Rate 2 10/26/23 17:00 MDM - Fever Medical Decision Making Physical exam completed and documented, I will obtain a CBC, CMP, ESR CRP as well as blood cultures procalcitonin and lactic acid I will provide her IV fluid rehydration we will obtain a COVID swab, influenza swab and chest x-ray as well. I will obtain a urinalysis and we will evaluate for infectious sites. I will request admission for this patient given her sepsis and provide IV fluid rehydration as well as consult surgery for her delayed healing wound of the left lower extremity. I will provide IV antibiotics as well as circulatory support to include Levophed. Medical Records I reviewed the patient's medical records. Lab Data I reviewed the patient's lab results. 10/26/23 14:00 10/26/23 14:00 Radiology Impressions Chest X-Ray 10/26/23 14:29 IMPRESSION: 1. Cardiomegaly. 2. Bilateral left greater than right mid lung field atelectasis. Lower Extremity CT 10/26/23 15:45 IMPRESSION: 1. Negative for focal acute appearing bony abnormality, if clinical concern for osteomyelitis remains consider further evaluation with MRI scan. 2. Severe tricompartmental osteoarthritis of the knee. 3. 14 mm calcific loose body in the posterior aspect of the lateral knee joint . 4. Calcified heel spur. 5. Diffuse decreased bone density. 6. Diffuse subcutaneous edema throughout the lower extremity, nonspecific. 7. Suspected subcutaneous emphysema seen over the medial aspect of the 1st metatarsal head with some more localized subcutaneous edema, concerning for an ulcer, please correlate clinically. 8. Surgical hardware somewhat visualized in the femur. Laboratory Results WBC 20.20 10^3/uL (3.29-11.43) H 10/26/23 14:00 RBC 4.08 10^6/uL (3.85-5.65) 10/26/23 14:00 Hgb 10.90 g/dL (11.27-16.99) L 10/26/23 14:00 Hct 34.2 % (36-47) L 10/26/23 14:00 MCV 83.8 fl (85-98) L 10/26/23 14:00 MCH 26.7 pg (27-33) L 10/26/23 14:00 MCHC 31.9 g/dL (30-55) 10/26/23 14:00 RDW 19.6 % (12.1-15.1) H 10/26/23 14:00 Plt Count 368 10^3/cmm (157-399) 10/26/23 14:00 MPV 10.0 fL (7.4-10.4) 10/26/23 14:00 Neut % (Auto) 85.7 % 10/26/23 14:00 Lymph % (Auto) 4.2 % 10/26/23 14:00 [place] % (Auto) 7.7 % 10/26/23 14:00 Eos % (Auto) 0.1 % 10/26/23 14:00 Baso % (Auto) 0.4 % 10/26/23 14:00 Neut # (Auto) 17.31 10^3/uL (1.8-7.7) H 10/26/23 14:00 Lymph # (Auto) 0.9 10^3/uL (0.8-4.8) 10/26/23 14:00 [place] # (Auto) 1.6 10^3/uL (0.2-0.9) H 10/26/23 14:00 Eos # (Auto) 0.0 10^3/uL (0.0-0.8) 10/26/23 14:00 Baso # (Auto) 0.1 10^3/uL (0.0-0.1) 10/26/23 14:00 Nucleated RBC % (auto) 0.1 % 10/26/23 14:00 Nucleated RBCs # 0.0 /100WBC 10/26/23 14:00 ESR 107 mm/hr (0-15) H 10/26/23 14:00 PT 20.80 SECONDS (12.1-14.9) H 10/26/23 14:00 INR 1.73 (0.8-1.2) H 10/26/23 14:00 APTT 55.3 SECONDS (23.9-36.7) H 10/26/23 14:00 Specimen Type Arterial 10/26/23 15:00 Sample Site Brachial, right 10/26/23 15:00 ABG pH 7.41 (7.35-7.45) 10/26/23 15:00 ABG pCO2 41.1 mmHg (35-45) 10/26/23 15:00 ABG pO2 61.9 mmHg (80.0-100.0) L 10/26/23 15:00 ABG PO2/FiO2 Ratio 0 10/26/23 15:00 ABG HCO3 26.2 mmol/L (22-26) H 10/26/23 15:00 ABG Base Excess 1.5 mmol/L (-2.0-2.0) 10/26/23 15:00 Abdoulaye Test N/a 10/26/23 15:00 Hematocrit 29.2 % (37-47) L 10/26/23 15:00 O2 Delivery Device Room air 10/26/23 15:00 FiO2 21.0 % 10/26/23 15:00 Flap Lining Binder ID [id number] 10/26/23 15:00 Sodium 128 mmol/L (136-145) L 10/26/23 14:00 Potassium 4.6 mmol/L (3.5-5.1) 10/26/23 14:00 Chloride 91 mmol/L (98-107) L 10/26/23 14:00 Carbon Dioxide 23 mmol/L (22-29) 10/26/23 14:00 Anion Gap 18.6 (5-19) 10/26/23 14:00 BUN 17 mg/dL (8-23) 10/26/23 14:00 Creatinine 0.6 mg/dL (0.5-0.9) 10/26/23 14:00 GFR Calculation 101.0 mL/min (90-130) 10/26/23 14:00 Glucose 73 mg/dL (65-115) 10/26/23 14:00 Calculated Osmolality 266 mOsm/kg (285-295) L 10/26/23 14:00 Lactic Acid 1.3 mmol/L (0.5-2.2) 10/26/23 14:48 Calcium 8.9 mg/dL (8.5-10.5) 10/26/23 14:00 Total Bilirubin 1.0 mg/dL (0.15-1.2) 10/26/23 14:00 AST 29 U/L (0-32) 10/26/23 14:00 ALT 14 U/L (0-33) 10/26/23 14:00 Alkaline Phosphatase 155 U/L (35-105) H 10/26/23 14:00 C-Reactive Protein 293.0 mg/L (0.0-4.9) H 10/26/23 14:00 Total Protein 7.7 g/dL (6.6-8.7) 10/26/23 14:00 Albumin 3.0 g/dL (3.5-5.2) L 10/26/23 14:00 Globulin 4.7 g/dL (1.3-4.6) H 10/26/23 14:00 Procalcitonin 1.16 ng/mL (0-0.5) H 10/26/23 14:00 Urine Color Bats[place]va (Yellow) 10/26/23 16:10 Urine Appearance Clear (CLEAR) 10/26/23 16:10 Urine pH 5 (5-7) 10/26/23 16:10 Ur Specific [place] 1.005 (1.005-1.030) 10/26/23 16:10 Urine Protein Neg (Negative) 10/26/23 16:10 Urine Glucose (UA) Norm (Normal) 10/26/23 16:10 Urine Ketones 1+ (Negative) H 10/26/23 16:10 Urine Blood 3+ (Negative) H 10/26/23 16:10 Urine Nitrate Negative (Negative) 10/26/23 16:10 Urine Bilirubin 1+ (Negative) H 10/26/23 16:10 Urine Urobilinogen 4+ mg/dL (Negative) H 10/26/23 16:10 Ur Leukocyte Esterase Negative (Negative) 10/26/23 16:10 Urine RBC 5-10 /hpf (0-2) H 10/26/23 16:10 Urine WBC 0-4 /hpf (0-5) H 10/26/23 16:10 Ur Squamous Epith Cells 0-4 /hpf (0-5) H 10/26/23 16:10 Amorphous Sediment Not Reportable 10/26/23 16:10 Urine Bacteria 1+ /hpf (NONE) H 10/26/23 16:10 Serum Ketones Negative (Negative) 10/26/23 14:00 SARS-CoV-2 Ag (Rapid) negative (Negative) 10/26/23 14:48 All radiology interpretation(s) finalized by discharge Critical Care Time 2 Critical Care Time: Critical Care Time: Yes Total Critical Care Time: 75 Attestation: This case had a high probability of a clinically significant, sudden, or life threatening deterioration of this patient's condition which required my full and direct attention, intervention and personal management. Discharge Plan Discharge Patient Disposition: Admitted As Inpatient Admit Provider: Brian Mccauley Clinical Impression: Sepsis, Acute hypotension, Acute hyponatremia, Chronic wound of extremity Condition: Stable Coding Level of Care Code ED Assistant Merchandise Manager for Trent Crews
--- NOTE | 2023-10-26 14:29 | XRR_ITS ---
PROCEDURE INFORMATION: Exam: XR Chest Exam date and time: 10/26/2023 3:00 PM Age: 63 years old Clinical indication: Cough and fever; Additional info: Fever/cough TECHNIQUE: Imaging protocol: Radiologic exam of the chest. Views: 1 view. COMPARISON: CR XR chest 1V portable [id number] 07/17/2023 10:06 AM FINDINGS: Lungs: Bilateral left greater than right mid lung field atelectasis. Pleural spaces: Unremarkable. No pleural effusion. No pneumothorax. Heart/Mediastinum: Cardiomegaly. Bones/joints: Surgical hardware in the cervical and upper thoracic spine. XR/XR chest 1V portable [id number] IMPRESSION: 1. Cardiomegaly. 2. Bilateral left greater than right mid lung field atelectasis.
[2023-10-26 14:41] LABS: Basophils # 0.1 10^3/uL (0.0-0.1); Basophils % 0.4 %; Eosinophils % 0.1 %; Hematocrit 34.2 % (36-47); Lymphocytes # 0.9 10^3/uL (0.8-4.8); Lymphocytes % 4.2 %; Mean Corpuscular HGB Conc 31.9 g/dL (30-55); Mean Corpuscular Hemoglobin 26.7 pg (27-33); Mean Corpuscular Volume 83.8 fl (85-98); Monocytes # 1.6 10^3/uL (0.2-0.9); Monocytes % 7.7 %; Neutrophils # 17.31 10^3/uL (1.8-7.7); Neutrophils % 85.7 %; Nucleated Red Blood Cells % 0.1 %; Platelet Count 368 10^3/cmm (157-399); Red Blood Count 4.08 10^6/uL (3.85-5.65); Red Cell Distribution Width 19.6 % (12.1-15.1)
[2023-10-26 14:46] LABS: Erythrocyte Sedimentation Rate 107 mm/hr (0-15)
[2023-10-26 14:56] LABS: INR 1.73 (0.8-1.2)
[2023-10-26 14:57] LABS: Partial Thromboplastin Time 55.3 SECONDS (23.9-36.7)
[2023-10-26 15:05] LABS: Alanine Aminotransferase 14 U/L (0-33); Anion Gap 18.6 (5-19); Aspartate Amino Transferase 29 U/L (0-32); Blood Urea Nitrogen 17 mg/dL (8-23); Calcium 8.9 mg/dL (8.5-10.5); Carbon Dioxide 23 mmol/L (22-29); Chloride 91 mmol/L (98-107); Globulin 4.7 g/dL (1.3-4.6); Glucose 73 mg/dL (65-115); Osmolality Calculated 266 mOsm/kg (285-295); Potassium 4.6 mmol/L (3.5-5.1); Sodium 128 mmol/L (136-145); Total Protein 7.7 g/dL (6.6-8.7)
[2023-10-26 15:09] LABS: Ketone (Acetest) Serum Negative (Negative)
[2023-10-26 15:12] LABS: Procalcitonin 1.16 ng/mL (0-0.5)
[2023-10-26 15:13] LABS: ABG PCO2 41.1 mmHg (35-45); ABG PH Result 7.41 (7.35-7.45); Arterial Blood Gas Hematocrit 29.2 % (37-47); Base Excess ABG 1.5 mmol/L (-2.0-2.0); Blood Gas Operator Identificat AMH; Blood Gas Sample Site Brachial, right; Blood Gas Sample Type Arterial; HCO3 ABG 26.2 mmol/L (22-26); Oxygen Device ROOM AIR; PO2 ABG 61.9 mmHg (80.0-100.0); PO2 FiO2 Ratio Arterial Blood 0
[2023-10-26] MEDS: sodium chloride 0.9% 1,000 ML 999 ML IV ×2 (15:15→16:55)
[2023-10-26 15:16] LABS: Alkaline Phosphatase 155 U/L (35-105)
[2023-10-26 15:17] LABS: Lactic Sepsis W/Reflex 1.3 mmol/L (0.5-2.2)
[2023-10-26 15:30] LABS: SARS Covid-2 Antigen negative (Negative)
[2023-10-26] MEDS: lactated ringers 1,000 ML 999 ML IV (15:31)
[2023-10-26] MEDS: fentaNYL 50 mcg/mL INJ 2mL IVP (15:43)
[2023-10-26] MEDS: vancomycin 1,250 MG/250 ML PIGGYBACK 250 MG IV (15:44)
[2023-10-26] MEDS: piperacillin-tazobactam 3.375 GM in sodium chloride 0.9% (plus) 50 ML IV (15:44)
--- NOTE | 2023-10-26 15:45 | CTR_ITS ---
PROCEDURE INFORMATION: Exam: CT Left Lower Extremity With Contrast; Lower Leg Exam date and time: 10/26/2023 4:15 PM Age: 63 years old Clinical indication: Cellulitis and swelling, leg or foot; Lower leg; Left; Additional info: Non-healing wound left lower leg, Dr. Chirinos--surgery requested CT TECHNIQUE: Imaging protocol: CT of the left lower extremity with intravenous contrast was performed. Exam focused on the lower leg. Radiation optimization: All CT scans at this facility use at least one of these dose optimization techniques: automated exposure control; mA and/or kV adjustment per patient size (includes targeted exams where dose is matched to clinical indication); or iterative reconstruction. Contrast material: OMNI 350; Contrast volume: 100 ml; Contrast route: INTRAVENOUS (IV); REPORTING DATA: Count of CT and Cardiac NM exams in prior 12 months: This patient has received 7 known CTs and 0 known cardiac nuclear medicine studies in the 12 months prior to the current study. COMPARISON: CT hip LT w con [id number] 06/16/2023 1:59 PM RADIATION DOSE METRICS: Total DLP (mGy-cm): 567.96 FINDINGS: Bones/joints: Severe tricompartmental osteoarthritis of the knee. 14 mm calcific loose body in the posterior aspect of the lateral knee joint . Calcified heel spur. Diffuse decreased bone density. Suspected subcutaneous emphysema seen over the medial aspect of the 1st metatarsal head with some more localized subcutaneous edema, concerning for an ulcer, please correlate clinically. Surgical hardware somewhat visualized in the femur. Soft tissues: Diffuse subcutaneous edema throughout the lower extremity, nonspecific. CT/CT lower leg LT w con [id number] IMPRESSION: 1. Negative for focal acute appearing bony abnormality, if clinical concern for osteomyelitis remains consider further evaluation with MRI scan. 2. Severe tricompartmental osteoarthritis of the knee. 3. 14 mm calcific loose body in the posterior aspect of the lateral knee joint . 4. Calcified heel spur. 5. Diffuse decreased bone density. 6. Diffuse subcutaneous edema throughout the lower extremity, nonspecific. 7. Suspected subcutaneous emphysema seen over the medial aspect of the 1st metatarsal head with some more localized subcutaneous edema, concerning for an ulcer, please correlate clinically. 8. Surgical hardware somewhat visualized in the femur.
--- NOTE | 2023-10-26 15:56 | PC.PHAR ---
pt and pts hawa [phone] verified pts medications-pt states [facility] states not [facility] for 2 days-notes are made in the pharmacy comments
[2023-10-26] MEDS: iohexol 350 mg/mL 500 mL Btl (per mL) IV (16:24)
[2023-10-26 16:43] LABS: Bilirubin Urine 1+ (Negative); Blood Urine 3+ (Negative); Glucose Urine UA Norm (Normal); Ketones Urine 1+ (Negative); Nitrate Urine Negative (Negative); Protein Urine Neg (Negative); Specific Gravity, Urine 1.005 (1.005-1.030); Urine Appearance Clear (CLEAR); Urine Color Amber (Yellow); pH Urine 5 (5-7)
[2023-10-26 16:44] LABS: Add Urine Culture? No; Add Urine Microscopic? YES; Bacteria Urine 1+ /hpf; Leukocyte Esterase Urine Negative (Negative); Squamous Epithelial Cell Urine 0-4 /hpf (0-5); Urobilinogen Urine 4+ mg/dL (Negative); WBC Urine 0-4 /hpf (0-5)
--- NOTE | 2023-10-26 17:55 | P.HP_ITS ---
Providers/Chief Complaint 2 Admitting Physician: Brian Mccauley Primary Care Provider: Wilner Hdez DO Chief Complaint: RIGHT LEG PAIN/REDNESS History of Present Illness Pleasant 63-year-old lady came into ER for evaluation due to malaise, chills fever, cough several days, states did not have appetite, felt ill, could not eat. reportedly did have an episode of vomiting.No diarrhea. Was bothered by pain in her left foot. She has chronic wounds that she follows with wound care on her lower leg, lal, and feet, and her helps her with dressing changes at home. In ER she is noted with erythema of left lower leg, but also areas of erythema of the Lateral/posterior left thigh, buttock, as well as right thigh, stump. knee ER with leukocytosis 20,000, soft blood pressure, normal lactic acid, negative serum ketones, normal serum pH on ABG. She is normally nonambulatory. Gets around mostly in a wheelchair. She fell down out of her chair about 4 days ago onto her right side, states hurt for a bit afterward but no residual pain. Review of Systems 2 Const: Reports: fever(s), chills, change in appetite and malaise ENMT: Denies: throat pain Card: Denies: chest pain, edema, pre-syncope or dyspnea on exertion Resp: Denies: dyspnea, productive cough, change in phlegm color or hemoptysis GI: Denies: abdominal pain, diarrhea, constipation, hematochezia or melena : Denies: flank pain, urinary frequency or hematuria Musc: Denies: back pain, joint swelling or joint redness Skin/Breast: Reports: rash and erythema Neuro: Denies: headache(s), numbness in extremities, weakness in extremities, dizziness, confusion or seizure-like activity Medications/Allergies Home Medications Medication Instructions Recorded Confirmed Last Taken Type fluticasone propionate 50 2 spray intranasal DAILY PRN 11/08/21 10/26/23 Unknown History mcg/actuation nasal Allergy Symptoms spray,suspension miscellaneous medical supply See Rx Instructions .Route 06/18/22 10/26/23 Unknown Rx .COMPLEX #1 ea Nubia Lift #1 ea 12/25/22 10/26/23 Unknown Rx Hospital bed #1 ea 03/22/23 10/26/23 Unknown Rx atenolol 100 mg tablet 100 mg PO BID 06/11/23 10/26/23 10/26/23 09:00 History fenofibrate micronized 200 mg 200 mg PO BEDTIME 06/11/23 10/26/23 10/25/23 History capsule pantoprazole 40 mg tablet,delayed 40 mg PO BID 06/11/23 10/26/23 10/26/23 History release prochlorperazine maleate 10 mg 10 mg PO BID PRN Nausea And 06/11/23 10/26/23 Unknown History tablet (Compazine) Vomiting albuterol sulfate 90 mcg/actuation 2 inh inhalation Q4H PRN shortness 07/17/23 10/26/23 Unknown Rx aerosol inhaler of breath or wheezing #18 grams budesonide 0.5 mg/2 mL suspension 0.5 mg inhalation BID PRN 07/17/23 10/26/23 Unknown History for nebulization Shortness Of Breath Power chair repair #1 ea 07/30/23 10/26/23 Unknown Rx apixaban 5 mg tablet (Eliquis) 5 mg PO BID@0900,2100 pulmonary 07/30/23 10/26/23 10/26/23 Rx embolism #60 tabs silver sulfadiazine 1 % topical 1 applic topical BID #20 grams 09/09/23 10/26/23 Unknown Rx cream (Silvadene) lidocaine-prilocaine 2.5 %-2.5 % See Rx Instructions .Route 09/10/23 10/26/23 Unknown Rx topical cream .COMPLEX #30 grams ketoconazole 2 % shampoo See Rx Instructions .Route 09/18/23 10/26/23 Unknown Rx .COMPLEX #120 mL nystatin 100,000 unit/gram topical 1 applic topical TID #15 grams 09/25/23 10/26/23 Unknown Rx powder venlafaxine 150 mg 150 mg PO QAM #90 caps 10/07/23 10/26/23 10/26/23 Rx capsule,extended release 24 hr aspirin 325 mg tablet 325 mg PO Q4H PRN Headache 10/26/23 10/26/23 10/26/23 History diazepam 5 mg tablet 5 mg PO QAM 10/26/23 10/26/23 10/26/23 History see pharmacy comment furosemide 40 mg tablet 40 mg PO DAILY PRN Edema 10/26/23 10/26/23 Unknown History gabapentin 600 mg tablet 900 mg PO TID 10/26/23 10/26/23 10/26/23 History metformin 500 mg tablet,extended 500 mg PO QAM 10/26/23 10/26/23 10/26/23 09:00 History release 24 hr methadone 40 mg soluble tablet 30 mg PO QAM 10/26/23 10/26/23 10/24/23 History potassium chloride 20 mEq 20 meq PO DAILY PRN unknown 10/26/23 10/26/23 Unknown History tablet,extended release Allergies Allergy/AdvReac Type Severity Reaction Status Date / Time nalbuphine Allergy Unknown sick to Verified 10/07/23 09:01 stomach adhesive tape Allergy rash Verified 10/07/23 09:01 amitriptyline Allergy Unknown Verified 10/07/23 09:01 nitrofurantoin Allergy ADR-Vomitin Verified 10/07/23 09:01 [From Macrobid] g Sulfa (Sulfonamide Allergy Itch all Verified 10/07/23 09:01 Antibiotics) over PFSH Acute 2 PFSH: Medical History (Updated 10/26/23 @ 19:18 by Brian Mccauley MD) COPD (chronic obstructive pulmonary disease) AMS (altered mental status) Metabolic encephalopathy Degenerative joint disease of left knee Closed fracture of left distal femur Hypertension Closed femur fracture Venous stasis ulcer Cellulitis Diabetic neuropathy associated with type 2 diabetes mellitus Diastolic CHF Anemia Substance abuse Depression with anxiety Chronic pain History of DVT of lower extremity post-operative Hyperlipidemia Hypertension History of cardioversion history of SVT vs for other arrhythmia Methamphetamine use Diabetes mellitus, type II Gemiscd-Falyk-Sehrh disease-like deformity of foot right Lung cancer Torticollis, acquired Has had good results with Botox in the past Lumbar radiculopathy Cervical post-laminectomy syndrome Surgical History Status post above-knee amputation of right lower extremity Hx of neck surgery x 2, posterior laminectomy and cervical fusion with hardware in place, limited ROM neck at baseline Hx of total knee replacement (~2010) Right History of arthroplasty of left knee (~1976) History of partial hysterectomy Hx of dilation and curettage Hx of tubal ligation Hx of appendectomy Family History Family/Other Hypertension Depression Anxiety Diabetes Father Aneurysm Mother Hypertension Brother Diabetes Sister Diabetes Social History Smoking and tobacco/nicotine status: current every day tobacco/nicotine user Alcohol intake: never Substance/Drug Use: current Substance/Drug use frequency: few times a month Additional social history: unknown if patient continues to smoke, documented to smoke previously Marital status: Female Reproductive History: Spontaneous abortions: No Vitals/I&O/Wt Last Vital Signs Temp 98.2 F 10/26/23 14:21 Pulse 79 10/26/23 17:00 Resp 18 10/26/23 15:43 BP 96/43 10/26/23 17:00 Pulse Ox 100 10/26/23 17:00 O2 Del Method Nasal Cannula 10/26/23 17:00 O2 Flow Rate 2 10/26/23 17:00 10/26/23 10/26/23 10/26/23 06:59 14:59 22:59 Intake Total 1000 / 1000 Balance 1000 / 1000 Weight last 48 hrs Weight 83.915 kg Physical Exam 2 Narrative: Somnolent but wakes up to voice, oriented. Provides history. Const: COMMON NORMALS: patient oriented x3 GENERAL APPEARANCE: cooperative HENMT: COMMON NORMALS: oropharynx normal Neck/C-Spine: COMMON NORMALS: no JVD Resp: COMMON NORMALS: normal respiratory effort and clear to auscultation bilaterally AUSCULTATION: clear to auscultation bilaterally Cardio: COMMON NORMALS: no JVD, regular rhythm, S1 normal heart sound present, S2 normal heart sound present and No murmurs present (Cardio) RHYTHM: regular rhythm HEART SOUNDS: S1 normal heart sound present and S2 normal heart sound present GI: COMMON NORMALS: Normal to inspection, nondistended, normoactive bowel sounds present, Soft to palpation and non-tender PALPATION: Yes Soft to palpation Extremity: COMMON NORMALS: no joint enlargement and no pedal edema N ARRATIVE EXTREMITY EXAM: Right AKA There is some crepitus on movement of the left hip. Neuro: COMMON NORMALS: patient oriented x3 and moves all extremities S ENSORIUM/ORIENTATION: Yes alert Skin: NARRATIVE SKIN EXAM: Extensive area of cellulitis including left foot, left lower leg, less dense areas of cellulitis of left lateral posterior thigh, posterior buttocks, and also extending down to lateral right thigh and right stump. Areas are not tender to palpation. Additionally intertrigo with yeast odor under pannus, groin. I do not appreciate cellulitis extending into the groin. Urinary Catheter Management: Garber: Cath Placed During This Visit: yes Urinary Catheter Date of Insertion: 10/26/23 Urinary Catheter Time of Insertion: 16:05 Data 10/26/23 14:00 10/26/23 14:00 Micro: Microbiology 10/26/23 14:51 Blood Culture - Preliminary Blood SPECIMEN COLLECTED 10/26/23 14:48 Blood Culture - Preliminary Blood SPECIMEN COLLECTED A&P Assessment and plan (1) Cellulitis: Extensive cellulitis, point of entry likely left lower extremity where she has chronic ulcerations on her anterior medial and lateral lal, also drying cracking of skin, there is a small blood-filled blister on the big toe. Cellulitis appears to extend up the lateral/posterior thigh, around posterior/superior buttocks, around the right lateral thigh and to the stump with involvement, Appears extending over dependent areas likely where she is sitting down likely in the wheelchair. Blood cultures have been sent. Received empirically Zosyn and vancomycin in the ER, will continue. Given extent of cellulitis, severe illness with hypotension, possible early septic shock, had empirically clindamycin as well. Does have able to fill blister on her toe, discussed with ER physician request for surgical assessment for consideration of invasive infection, although areas involved by cellulitis are not tender. There is some subcutaneous emphysema over an area of the left great toe on CT. Given quite significant intertrigo we will add Diflucan empirically for now as well. At risk of kidney injury with antibiotic combination, additionally hypotension, monitor renal function. Reviewed vitals, CBC, CMP, UA, serum ketones, rapid COVID, chest x-ray, lower extremity CT. Reviewed ER documentation, discussed with ER physician. Monitor blood culture. Did have difficult time healing seems with hematoma of the left hip in the past, she had a fall 4 days ago, some crepitus on the left hip, although fall was onto the right side, once she is little bit more stable consider additional imaging. Wound cultures from left lower extremity ulcers. (2) Hypotension: Possible hypovolemic shock, she has not eaten in 3 to 4 days. Less likely likely septic shock. Does not meet sepsis criteria. Some response to boluses. Levophed requested in case of further hypotension. Initial admission to intensive care unit. (3) Intertrigo: Diflucan. Nystatin powder. (4) Diabetes mellitus, type II: Accu-Cheks requested, sliding scale insulin. Complicated by diabetic neuropathy. Plan Hyponatremia: Likely hypovolemic, with poor oral intake last several days. Received fluid boluses. Recheck chemistry. History of PE: On anticoagulation with Eliquis. Will transition to Lovenox for now. COPD: Currently not in exacerbation, not normally on oxygen. HTN: Hold antihypertensive HLD Venous stasis ulcers and diabetic wounds: Follows with wound care. Diastolic CHF: Currently does not appear in exacerbation Anemia History of substance use disorder: On methadone, will need to confirm dose. For now resumed at 30 mg daily. Qhcwvnp-Dtwag-Hgwox, vomiting Lumbar radiculopathy Other medical problems Attestations 2 Medical Necessity Statement*: Admission of over 2 midnights anticipated for assessment management of severe extensive cellulitis, hypovolemic shock, Coding Level of Care Code Critical Care >/= 30 minutes Critical care time (in minutes): 35 The high probability of a clinically significant, sudden or life threatening deterioration, as referenced in this documentation, required my full and direct attention, intervention and personal management. The critical care time shown is in addition to time spent performing any reported separately billable procedures and includes the following: [x] Data and vital sign review and interpretation [x ] Patient assessment, examination and intervention [x] Medication orders and management [x] Patient/Family updates as able [x] Care Coordination and Documentation. Diagnoses Cellulitis L03.90 Hypotension I95.9 Intertrigo L30.4 Type 2 diabetes mellitus with other diabetic arthropathy, 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
[2023-10-26 17:56] LABS: Cortisol Random 37.44 ug/dL (2.47-19.5)
--- NOTE | 2023-10-26 19:30 | PC.NURSE ---
Patient is drowsy, awakens to her name but immediately goes back to sleep. She is oriented to person and place. Does not answer any questions pertaining to her history or home life. Patiet can follow simple commands such as alowing for an oral temp.
--- NOTE | 2023-10-26 20:00 | PC.NURSE ---
Spoke with telepharmacy regarding unverified orders.
--- NOTE | 2023-10-26 20:30 | PC.NURSE ---
Spoke with telepharmacy again. They report that patient's home meds; fenofibrate and methadone is non formulary and not available. I nformed telepharm that the dose of clindamycin ordered is showing as unavailable anywhere in the hospital. After speaking with telepharm I contacted hospitalist on duty to inform hime of medicines not available tonight.
[2023-10-26] MEDS: lactated ringers 1,000 ML 100 ML IV (20:42)
[2023-10-26] MEDS: pantoprazole DR 40 mg Tablet PO (20:52)
[2023-10-26] MEDS: fluconazole premix 400 MG/200 ML PIGGYBACK 200 MG IV (20:53)
[2023-10-26 20:57] LABS: Glucose Point of Care 72 mg/dL (70-110)
[2023-10-26] MEDS: nystatin powder 15 gm Btl 1 APPLIC TOPICAL (20:58)
--- NOTE | 2023-10-26 22:00 | PC.NURSE ---
Care of patient transferred to Sandra Marvin RN. Reported that patient continues to have intermittant confusion and that I was unable to complete admission assessment.
[2023-10-26] MEDS: enoxaparin 100 mg/mL Syringe 80 MG SUBCUT (23:22)
[2023-10-26] MEDS: dextrose 50% syringe 50 mL IVP (23:31)
[2023-10-26] MEDS: dextrose 5 % 500 ML 100 ML IV (23:43)
[2023-10-27] VITALS (59 sets, daily range): BP systolic 86–109; BP diastolic 46–79; PULSE 62–80; RESP 13–96; TEMP 36.6–37; O2SAT 93–100
[2023-10-27] MEDS: morphine 4 mg/mL SDV 1 mL 2 MG IVP ×3 (00:01→19:30)
[2023-10-27] MEDS: piperacillin-tazobactam 3.375 GM in sodium chloride 0.9% (plus) 50 ML IV ×4 (00:03→23:15)
[2023-10-27 01:23] LABS: Glucose Point of Care 103 mg/dL (70-110)
[2023-10-27 01:23] LABS: Glucose Point of Care 57 mg/dL (70-110)
[2023-10-27 01:23] LABS: Glucose Point of Care 105 mg/dL (70-110)
--- NOTE | 2023-10-27 01:26 | PC.NURSE ---
pt mood very labile. pt crying and then asking for ice. pt is confused and then will be able to have a very detailed conversation 2 minutes later.
[2023-10-27] MEDS: vancomycin 1,250 MG/250 ML PIGGYBACK 250 MG IV ×2 (02:58→14:28)
[2023-10-27 05:19] LABS: Basophils # 0.1 10^3/uL (0.0-0.1); Basophils % 0.5 %; Eosinophils % 0.2 %; Hematocrit 33.3 % (36-47); Lymphocytes # 1.3 10^3/uL (0.8-4.8); Lymphocytes % 6.5 %; Mean Corpuscular HGB Conc 30.6 g/dL (30-55); Mean Corpuscular Hemoglobin 26.5 pg (27-33); Mean Corpuscular Volume 86.5 fl (85-98); Mean Platelet Volume 9.9 fL (7.4-10.4); Monocytes # 1.8 10^3/uL (0.2-0.9); Monocytes % 9.3 %; Neutrophils % 80.5 %; Nucleated Red Blood Cells % 0 %; Platelet Count 305 10^3/cmm (157-399); Red Blood Count 3.85 10^6/uL (3.85-5.65); Red Cell Distribution Width 19.9 % (12.1-15.1); White Blood Count 19.49 10^3/uL (3.29-11.43)
[2023-10-27] MEDS: dextrose 5% 1,000 ML 100 ML IV (05:21)
[2023-10-27 05:37] LABS: Alanine Aminotransferase 12 U/L (0-33); Albumin Level 2.4 g/dL (3.5-5.2); Alkaline Phosphatase 130 U/L (35-105); Anion Gap 13.7 (5-19); Aspartate Amino Transferase 24 U/L (0-32); Blood Urea Nitrogen 11 mg/dL (8-23); Calcium 8.1 mg/dL (8.5-10.5); Carbon Dioxide 24 mmol/L (22-29); Chloride 94 mmol/L (98-107); Globulin 3.8 g/dL (1.3-4.6); Glomerular Filtration Rate 161.2 mL/min (90-130); Glucose 73 mg/dL (65-115); Osmolality Calculated 264 mOsm/kg (285-295); Phosphorus 2.5 mg/dL (2.5-4.5); Potassium 3.7 mmol/L (3.5-5.1); Sodium 128 mmol/L (136-145); Total Bilirubin 0.8 mg/dL (0.15-1.2); Total Protein 6.2 g/dL (6.6-8.7)
[2023-10-27 05:54] LABS: Magnesium 1.6 mg/dL (1.7-2.3)
[2023-10-27] MEDS: methadone 10 mg Tablet 30 MG PO (06:04)
[2023-10-27] MEDS: venlafaxine ER (24HR) 150 mg Capsule PO (06:06)
[2023-10-27] MEDS: clindamycin 300 MG/50 ML PREMIX 100 MG IV (08:18)
[2023-10-27 08:29] LABS: Glucose Point of Care 96 mg/dL (70-110)
[2023-10-27] MEDS: lactated ringers 1,000 ML 100 ML IV (09:02)
[2023-10-27] MEDS: magnesium sulfate premix 2 GM/50 ML PIGGYBACK IV (10:07)
[2023-10-27] MEDS: enoxaparin 80 mg/0.8 mL Syringe SUBCUT ×2 (10:09→23:16)
[2023-10-27] MEDS: nystatin powder 15 gm Btl 1 APPLIC TOPICAL ×3 (10:15→21:17)
--- NOTE | 2023-10-27 10:35 | PM.CONSULT ---
Providers/Reason For Consult Consulting Physician/Specialty*: Dr. Hakeem Chirinos Reason for Consult*: LE cellulitis Attending Physician: Brian Mccauley Primary Care Provider: Wilner Hdez DO History of Present Illness History of Present Illness Polina Snyder is a 63 year old female who presented to the hospital with erythema of her bilateral lower extremities along with a chronic wound on the left heel. CT shows evidence of a small ulcer of the left first metatarsal head. It otherwise does not show any evidence of gas gangrene. Patient is somewhat confused and therefore HPI and review of systems are limited secondary to this. She does see wound care Review of Systems General: Reports: ROS unobtainable due to mental status Medications/Allergies Home Medications Medication Instructions Recorded Confirmed Last Taken Type fluticasone propionate 50 2 spray intranasal DAILY PRN 11/08/21 10/26/23 Unknown History mcg/actuation nasal Allergy Symptoms spray,suspension miscellaneous medical supply See Rx Instructions .Route 06/18/22 10/26/23 Unknown Rx .COMPLEX #1 ea Nubia Lift #1 ea 12/25/22 10/26/23 Unknown Rx Hospital bed #1 ea 03/22/23 10/26/23 Unknown Rx atenolol 100 mg tablet 100 mg PO BID 06/11/23 10/26/23 10/26/23 09:00 History fenofibrate micronized 200 mg 200 mg PO BEDTIME 06/11/23 10/26/23 10/25/23 History capsule pantoprazole 40 mg tablet,delayed 40 mg PO BID 06/11/23 10/26/23 10/26/23 History release prochlorperazine maleate 10 mg 10 mg PO BID PRN Nausea And 06/11/23 10/26/23 Unknown History tablet (Compazine) Vomiting albuterol sulfate 90 mcg/actuation 2 inh inhalation Q4H PRN shortness 07/17/23 10/26/23 Unknown Rx aerosol inhaler of breath or wheezing #18 grams budesonide 0.5 mg/2 mL suspension 0.5 mg inhalation BID PRN 07/17/23 10/26/23 Unknown History for nebulization Shortness Of Breath Power chair repair #1 ea 07/30/23 10/26/23 Unknown Rx apixaban 5 mg tablet (Eliquis) 5 mg PO BID@0900,2100 pulmonary 07/30/23 10/26/23 10/26/23 Rx embolism #60 tabs silver sulfadiazine 1 % topical 1 applic topical BID #20 grams 09/09/23 10/26/23 Unknown Rx cream (Silvadene) lidocaine-prilocaine 2.5 %-2.5 % See Rx Instructions .Route 09/10/23 10/26/23 Unknown Rx topical cream .COMPLEX #30 grams ketoconazole 2 % shampoo See Rx Instructions .Route 09/18/23 10/26/23 Unknown Rx .COMPLEX #120 mL nystatin 100,000 unit/gram topical 1 applic topical TID #15 grams 09/25/23 10/26/23 Unknown Rx powder venlafaxine 150 mg 150 mg PO QAM #90 caps 10/07/23 10/26/23 10/26/23 Rx capsule,extended release 24 hr aspirin 325 mg tablet 325 mg PO Q4H PRN Headache 10/26/23 10/26/23 10/26/23 History diazepam 5 mg tablet 5 mg PO QAM 10/26/23 10/26/23 10/26/23 History see pharmacy comment furosemide 40 mg tablet 40 mg PO DAILY PRN Edema 10/26/23 10/26/23 Unknown History gabapentin 600 mg tablet 900 mg PO TID 10/26/23 10/26/23 10/26/23 History metformin 500 mg tablet,extended 500 mg PO QAM 10/26/23 10/26/23 10/26/23 09:00 History release 24 hr methadone 40 mg soluble tablet 30 mg PO QAM 10/26/23 10/26/23 10/24/23 History potassium chloride 20 mEq 20 meq PO DAILY PRN unknown 10/26/23 10/26/23 Unknown History tablet,extended release Allergies Allergy/AdvReac Type Severity Reaction Status Date / Time nalbuphine Allergy Unknown sick to Verified 10/07/23 09:01 stomach adhesive tape Allergy rash Verified 10/07/23 09:01 amitriptyline Allergy Unknown Verified 10/07/23 09:01 nitrofurantoin Allergy ADR-Vomitin Verified 10/07/23 09:01 [From Macrobid] g Sulfa (Sulfonamide Allergy Itch all Verified 10/07/23 09:01 Antibiotics) over Current Medications Generic Name Dose Route Start Last Admin Trade Name Freq PRN Reason Stop Dose Admin Dextrose 50 ml 12/09/23 19:17 10/26/23 23:31 Dextrose 50% Syringe 50 Ml IVP 50 ml PRN PRN Administration hypoglycemia protocol Protocol Enoxaparin Sodium 80 mg 10/27/23 11:00 10/27/23 23:16 Enoxaparin 80 Mg/0.8 Ml Syringe 1 mg/kg (80 mg) 80 mg SUBCUT Administration Q12H RANJIT Piperacillin Sod/Tazobactam 50 mls @ 12.5 mls/hr 10/26/23 23:30 10/27/23 23:15 Sod 3.375 gm/ Sodium Chloride IV 12.5 mls/hr Q8H RANJIT Administration Protocol Fluconazole 400 mg in 200 mls @ 200 mls/hr 10/26/23 20:00 10/27/23 20:19 Diflucan Premix IV 200 mls/hr Q24H RANJIT Administration Dextrose 500 mls @ 0 mls/hr 10/26/23 19:17 10/27/23 04:43 D5w IV Infused ONCE PRN Infusion Adult Acute Hypoglycemia Prot Protocol Per Protocol Vancomycin/PEG/NADA/Lysine/Water 1,250 mg in 250 mls @ 250 mls/hr 10/27/23 03:00 10/28/23 03:02 Vancocin IV 250 mls/hr Q12H RANJIT Administration Dextrose 1,000 mls @ 50 mls/hr 10/27/23 11:15 10/28/23 05:57 D10w IV 50 mls/hr .Q20H RANJIT Administration Clindamycin HCl/Dextrose 300 25 mls @ 50 mls/hr 10/27/23 16:00 10/28/23 00:07 mg/ N/A IV 50 mls/hr Q8H RANJIT Administration Insulin Human Lispro 0 unit 10/26/23 19:30 10/28/23 02:27 Insulin Lispro 100 Unit/1 Ml SUBCUT Not Given Q6H [facility] Protocol Methadone HCl 30 mg 10/27/23 06:00 10/28/23 06:02 Methadone 10 Mg Tablet PO 30 mg QAM RANJIT Administration Morphine Sulfate 2 mg 10/26/23 19:10 10/27/23 19:30 Morphine 4 Mg/Ml Sdv 1 Ml IVP 2 mg Q4H PRN Administration SEVERE PAIN Non-Formulary Medication 200 mg 10/26/23 21:00 10/27/23 21:38 Fenofibrate Micronized PO Not Given BEDTIME RANJIT Nystatin 1 applic 10/26/23 21:00 10/27/23 21:17 Nystatin Powder 15 Gm Btl TOPICAL 1 applic TID RANJIT Administration Pantoprazole Sodium 40 mg 10/26/23 18:33 10/27/23 18:[address] 40 Mg Tablet PO Not Given BID RANJIT Venlafaxine HCl 150 mg 10/27/23 06:00 10/28/23 06:06 Venlafaxine Er (24hr) 150 Mg Capsule PO 150 mg QAM RANJIT Administration PFSH Acute PFSH: Medical History COPD (chronic obstructive pulmonary disease) AMS (altered mental status) Metabolic encephalopathy Degenerative joint disease of left knee Closed fracture of left distal femur Hypertension Closed femur fracture Venous stasis ulcer Cellulitis Diabetic neuropathy associated with type 2 diabetes mellitus Diastolic CHF Anemia Substance abuse Depression with anxiety Chronic pain History of DVT of lower extremity post-operative Hyperlipidemia Hypertension History of cardioversion history of SVT vs for other arrhythmia Methamphetamine use Diabetes mellitus, type II Ujyensg-Gkbib-Ickvd disease-like deformity of foot right Lung cancer Torticollis, acquired Has had good results with Botox in the past Lumbar radiculopathy Cervical post-laminectomy syndrome Surgical History Status post above-knee amputation of right lower extremity Hx of neck surgery x 2, posterior laminectomy and cervical fusion with hardware in place, limited ROM neck at baseline Hx of total knee replacement (~2010) Right History of arthroplasty of left knee (~1976) History of partial hysterectomy Hx of dilation and curettage Hx of tubal ligation Hx of appendectomy Family History Family/Other Hypertension Depression Anxiety Diabetes Father Aneurysm Mother Hypertension Brother Diabetes Sister Diabetes Social History Smoking and tobacco/nicotine status: current every day tobacco/nicotine user Alcohol intake: never Substance/Drug Use: current Substance/Drug use frequency: few times a month Additional social history: unknown if patient continues to smoke, documented to smoke previously Marital status: Female Reproductive History: Spontaneous abortions: No Vitals/I&O/Wt Last Vital Signs Temp 97 F L 10/28/23 05:15 Pulse 72 10/28/23 05:41 Resp 18 10/28/23 05:15 BP 98/67 10/28/23 05:15 Pulse Ox 91 10/28/23 05:15 O2 Del Method Nasal Cannula 10/27/23 17:01 O2 Flow Rate 2 10/27/23 18:45 10/27/23 10/27/23 10/28/23 14:59 22:59 06:59 Intake Total 540 / 540 345 / 885 925.833 / 1810.833 Output Total 300 / 300 650 / 950 825 / 1775 Balance 240 / 240 -305 / -65 100.833 / 35.833 Weight last 48 hrs Weight 196 lb Weight 196 lb Weight 195 lb 5 oz Weight 195 lb 5 oz Weight 185 lb Weight 185 lb Physical Exam Narrative: General : Patient is well developed , no acute distress, oriented x3 Head : Normal cephalic, a-traumatic. Ears : Pinnae and external canal are normal. Hearing is normal. Eyes : PERRLA, Sclera and injection are normal. No conjunctival discharge. Nose : Mucous membranes are without erythema. Throat : buccal mucosa is normal, gums are without significant recession or hypertrophy. Lungs : Equal chest rise bilaterally, no use of accessory muscles, trachea is midline. Cor : Rate and rhythm are normal. Abdomen : Soft, ND, NT, no g/r/m Extremities : There is an ulcer of the left heel but otherwise no significant wounds on her bilateral lower extremities. She is status post right AKA. There is dependent erythema that is mostly not blanchable. There is no crepitus or even tenderness to palpation. No fluctuation. Upper extremities are normal bilaterally. Back : non-tender to palpation, no CVA tenderness. Neuro : CN II - XII intact, Upper and lower extremities have equal and full strength Urinary Catheter Management: Garber: Cath Placed During This Visit: yes Reason for Continuing Indwelling Catheter: Accurate Measurement of Urinary Output in Critically Ill Patients Urinary Catheter Date of Insertion: 10/26/23 Urinary Catheter Time of Insertion: 16:05 Data 10/29/23 04:19 10/29/23 04:19 Micro: Microbiology 10/26/23 14:51 Blood Culture - Preliminary Blood NEGATIVE TO DATE 10/26/23 14:48 Blood Culture - Preliminary Blood NEGATIVE TO DATE 10/26/23 14:48 Gram Stain - Final Leg - #1 Wound Culture - Preliminary Gram Negative Rods A&P Assessment and plan (1) Cellulitis: (2) Ulcer of left heel: Qualifiers: Non-pressure ulcer stage: with fat layer exposed Qualified Code(s): L97.422 - Non-pressure chronic ulcer of left heel and midfoot with fat layer exposed (3) Chronic wound of extremity: Plan No acute gen surgery intervention recommend podiatry consult Continue antibiotics Medical management per primary Coding Level of Care Code 46229 Diagnoses Cellulitis L03.90 Skin ulcer of left heel with fat layer exposed L97.422 Non-pressure ulcer stage: with fat layer exposed Chronic wound of extremity
[2023-10-27 11:09] LABS: Glucose Point of Care 79 mg/dL (70-110)
[2023-10-27 11:09] LABS: Glucose Point of Care 79 mg/dL (70-110)
[2023-10-27 11:09] LABS: Glucose Point of Care 78 mg/dL (70-110)
[2023-10-27 11:09] LABS: Glucose Point of Care 68 mg/dL (70-110)
--- NOTE | 2023-10-27 11:10 | PC.NURSE ---
blood sugar level-79 received verbal order read back fro dr milan to start dextrose 10% at 50 cc/hr
[2023-10-27] MEDS: dextrose 10% 1,000 ML 50 ML IV (11:26)
[2023-10-27 13:57] LABS: Glucose Point of Care 97 mg/dL (70-110)
--- NOTE | 2023-10-27 18:32 | P.PN_ITS ---
Subjective 2 Subjective: Received IV morphine for pain earlier this morning, somnolent at the time of my visit. Vitals/I&O/Wt Last Vital Signs Temp 97.9 F 10/27/23 17:01 Pulse 69 10/27/23 17:01 Resp 16 10/27/23 17:01 BP 92/59 10/27/23 17:01 Pulse Ox 100 10/27/23 17:01 O2 Del Method Nasal Cannula 10/27/23 17:01 O2 Flow Rate 2 10/27/23 17:01 10/27/23 10/27/23 10/27/23 06:59 14:59 22:59 Intake Total 1113.333 / 2313.333 540 / 540 275 / 815 Output Total 525 / 1775 300 / 300 Balance 588.333 / 538.333 240 / 240 275 / 515 Weight last 48 hrs Weight 88.592 kg Weight 88.592 kg Weight 83.915 kg Weight 83.915 kg Physical Exam 2 Const: OTHER: Somnolent. HENMT: COMMON NORMALS: oropharynx normal Neck/C-Spine: COMMON NORMALS: no JVD Resp: COMMON NORMALS: normal respiratory effort and clear to auscultation bilaterally AUSCULTATION: clear to auscultation bilaterally Cardio: COMMON NORMALS: no JVD, regular rhythm, S1 normal heart sound present, S2 normal heart sound present and No murmurs present (Cardio) RHYTHM: regular rhythm HEART SOUNDS: S1 normal heart sound present and S2 normal heart sound present GI: COMMON NORMALS: Normal to inspection, nondistended, normoactive bowel sounds present, Soft to palpation and non-tender PALPATION: Yes Soft to palpation Extremity: COMMON NORMALS: no joint enlargement and no pedal edema N ARRATIVE EXTREMITY EXAM: Right AKA There is some crepitus on movement of the left hip. Neuro: COMMON NORMALS: moves all extremities Skin: NARRATIVE SKIN EXAM: Decreased intensity of erythema. Extensive area of cellulitis including left foot, left lower leg, less dense areas of cellulitis of left lateral posterior thigh, posterior buttocks, and also extending down to lateral right thigh and right stump. Areas are not tender to palpation. Additionally intertrigo with yeast odor under pannus, groin. I do not appreciate cellulitis extending into the groin. Blood-filled blister/clot/eschar 1 cm byx 4 mm on dorsal surface of the L third toe. Urinary Catheter Management: Garber: Cath Placed During This Visit: yes Reason for Continuing Indwelling Catheter: Accurate Measurement of Urinary Output in Critically Ill Patients Urinary Catheter Date of Insertion: 10/26/23 Urinary Catheter Time of Insertion: 16:05 Data 10/27/23 05:07 10/27/23 05:07 Micro: Microbiology 10/26/23 14:51 Blood Culture - Preliminary Blood NEGATIVE TO DATE 10/26/23 14:48 Blood Culture - Preliminary Blood NEGATIVE TO DATE 10/26/23 14:48 Gram Stain - Final Leg - #1 Wound Culture - Preliminary Gram Negative Rods A&P Assessment and plan (1) Cellulitis: Afebrile, leukocytosis similar, slightly better, continue empiric antibiotic and antifungal coverage, Order has been placed by pharmacist as discussed initial 800 mg dose was not available in the system. Continue 400 mg. Slight improvement in intensity of erythema of left lower extremity. Blood pressure with mild improvement although still soft. Reviewed cultures, gram-negative rods on wound culture, follow-up results. Reviewed blood culture, pending. Follow-up. Extensive cellulitis, point of entry likely left lower extremity where she has chronic ulcerations on her anterior medial and lateral lal, also drying cracking of skin, there is a small blood-filled blister on the big toe. Cellulitis appears to extend up the lateral/posterior thigh, around posterior/superior buttocks, around the right lateral thigh and to the stump with involvement, Appears extending over dependent areas likely where she is sitting down likely in the wheelchair. Blood cultures have been sent. Received empirically Zosyn and vancomycin in the ER, will continue. Given extent of cellulitis, severe illness with hypotension, possible early septic shock, had empirically clindamycin as well. Does have able to fill blister on her toe, discussed with ER physician request for surgical assessment for consideration of invasive infection, although areas involved by cellulitis are not tender. There is some subcutaneous emphysema over an area of the left great toe on CT. Given quite significant intertrigo we will add Diflucan empirically for now as well. At risk of kidney injury with antibiotic combination, additionally hypotension, monitor renal function. Reviewed vitals, CBC, CMP, magnesium. Blood and wound cultures. (2) Hypoglycemia: Not on hypoglycemic medications at home. Reviewed cortisol, with good response. Suspect related to infection and poor oral intake. Switch fluid to D10, continue at 50 mill per hour. Follow-up glucose. (3) Hypotension: Given borderline blood pressures dipping into low 60s mean arterial pressure but so far has not required initiation of pressor, but blood pressure is too low to safely transfer out of ICU just yet. Will stop LR infusion. Will give additional volume with 25 g of 25% albumin. Suspected hypovolemic shock, she has not eaten in 3 to 4 days. Less likely likely septic shock. Does not meet sepsis criteria. Some response to boluses. Levophed requested in case of further hypotension. Initial admission to intensive care unit. (4) Intertrigo: Diflucan. Nystatin powder. (5) Diabetes mellitus, type II: Accu-Cheks requested, sliding scale insulin. Complicated by diabetic neuropathy. Plan Crepitus of L hip: Did have difficult time healing seems with hematoma of the left hip in the past, she had a fall 4 days ago, some crepitus on the left hip, although fall was onto the right side, once she is little bit more stable consider additional imaging to rule out occult pathological fracture, etc.. Hyponatremia: So far did not respond to fluid resuscitation, may have a component of SIADH. Will treat underlying infection as above. Follow-up sodium level. Stop LR. Hypomagnesemia: Supplement. Recheck. Lower extremity wounds: Continue wound care. Wound care consultation if possible on Sat. History of PE: On anticoagulation with Eliquis. Lovenox here for now. COPD: Currently not in exacerbation, not normally on oxygen. HTN: Hold antihypertensive HLD Venous stasis ulcers and diabetic wounds: Follows with wound care. Diastolic CHF: Currently does not appear in exacerbation Anemia History of substance use disorder: On methadone, will need to confirm dose on Saturday when open. For now resumed at 30 mg daily. Zlcidsu-Aivdp-Lviku deformity Lumbar radiculopathy Other medical problems Attestations 2 Medical Necessity Statement*: Continue admission for assessment management of extensive severe cellulitis, hypovolemia, hypotension, additional medical problems as above. Diagnoses Cellulitis L03.90 Hypoglycemia E16.2 Hypotension I95.9 Intertrigo L30.4 Type 2 diabetes mellitus with other diabetic arthropathy, 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
[2023-10-27 19:11] LABS: Glucose Point of Care 95 mg/dL (70-110)
[2023-10-27] MEDS: fluconazole premix 400 MG/200 ML PIGGYBACK 200 MG IV (20:19)
[2023-10-27] MEDS: albumin 25 G/100 ML BAG 60 G IV (21:17)
--- NOTE | 2023-10-27 21:34 | PC.NURSE ---
Patient's life partner updated on condition and obtained consent for Albumin. Patient unable to give consent due to somnolent state. Patient is arousable and was able to answer all orientation questions however she falls asleep very quickly.
[2023-10-28] VITALS (55 sets, daily range): BP systolic 78–128; BP diastolic 45–78; PULSE 62–83; RESP 12–22; TEMP 36.1–36.9; O2SAT 91–99
[2023-10-28 00:39] LABS: Anion Gap 12.5 (5-19); Blood Urea Nitrogen 8 mg/dL (8-23); Calcium 8.4 mg/dL (8.5-10.5); Carbon Dioxide 24 mmol/L (22-29); Chloride 99 mmol/L (98-107); Glomerular Filtration Rate 224.7 mL/min (90-130); Glucose 106 mg/dL (65-115); Osmolality Calculated 273 mOsm/kg (285-295); Potassium 3.5 mmol/L (3.5-5.1); Sodium 132 mmol/L (136-145)
[2023-10-28 01:22] LABS: Glucose Point of Care 120 mg/dL (70-110)
[2023-10-28] MEDS: vancomycin 1,250 MG/250 ML PIGGYBACK 250 MG IV ×2 (03:02→16:00)
[2023-10-28 05:35] LABS: Basophils # 0.1 10^3/uL (0.0-0.1); Basophils % 0.4 %; Eosinophils # 0.2 10^3/uL (0.0-0.8); Eosinophils % 1.2 %; Hematocrit 29.2 % (36-47); Lymphocytes # 1.2 10^3/uL (0.8-4.8); Lymphocytes % 7.2 %; Mean Corpuscular HGB Conc 29.5 g/dL (30-55); Mean Corpuscular Hemoglobin 25.9 pg (27-33); Mean Platelet Volume 10.4 fL (7.4-10.4); Monocytes # 1.3 10^3/uL (0.2-0.9); Monocytes % 8.2 %; Neutrophils # 13.01 10^3/uL (1.8-7.7); Neutrophils % 80.6 %; Nucleated Red Blood Cells % 0 %; Platelet Count 279 10^3/cmm (157-399); Red Blood Count 3.32 10^6/uL (3.85-5.65); Red Cell Distribution Width 20.3 % (12.1-15.1); White Blood Count 16.14 10^3/uL (3.29-11.43)
[2023-10-28] MEDS: dextrose 10% 1,000 ML 50 ML IV (05:57)
[2023-10-28] MEDS: methadone 10 mg Tablet 30 MG PO (06:02)
[2023-10-28 06:04] LABS: Alanine Aminotransferase 8 U/L (0-33); Albumin Level 2.6 g/dL (3.5-5.2); Alkaline Phosphatase 112 U/L (35-105); Anion Gap 13.1 (5-19); Aspartate Amino Transferase 14 U/L (0-32); Blood Urea Nitrogen 8 mg/dL (8-23); Calcium 8.1 mg/dL (8.5-10.5); Carbon Dioxide 25 mmol/L (22-29); Chloride 97 mmol/L (98-107); Glomerular Filtration Rate 161.2 mL/min (90-130); Glucose 112 mg/dL (65-115); Osmolality Calculated 273 mOsm/kg (285-295); Potassium 3.1 mmol/L (3.5-5.1); Sodium 132 mmol/L (136-145); Total Bilirubin 0.9 mg/dL (0.15-1.2); Total Protein 5.6 g/dL (6.6-8.7)
[2023-10-28] MEDS: venlafaxine ER (24HR) 150 mg Capsule PO ×2 (06:06→21:33)
[2023-10-28 06:36] LABS: Glucose Point of Care 109 mg/dL (70-110)
[2023-10-28] MEDS: piperacillin-tazobactam 3.375 GM in sodium chloride 0.9% (plus) 50 ML IV ×3 (07:44→23:53)
[2023-10-28] MEDS: nystatin powder 15 gm Btl 1 APPLIC TOPICAL ×3 (08:35→21:37)
[2023-10-28] MEDS: norepinephrine 4 MG/250 ML BAG 7.5 MG IV (10:36)
[2023-10-28] MEDS: lidocaine 1% 5 ML in potassium chloride premix 100 ML 26.25 ML IV ×2 (10:37→13:47)
[2023-10-28 11:11] LABS: Iron 15 ug/dL (37-145); Total Iron Binding Capacity 149 mcg/dl; Unsaturated Iron Binding 134 ug/dL (112-347)
[2023-10-28] MEDS: enoxaparin 80 mg/0.8 mL Syringe SUBCUT ×2 (11:44→23:54)
--- NOTE | 2023-10-28 12:50 | PC.SOCIAL ---
IMM Update pg 2 of IMM not updated w/ patient as she was not awake or alert. Copy left @ bedside and copy in chart dated and initialed.
--- NOTE | 2023-10-28 13:08 | P.CONIM_ITS ---
Providers/Reason For Consult 2 Consulting Physician/Specialty*: Dr. Derrell Laguna, D.P.M./podiatry Reason for Consult*: Multiple wounds left foot Attending Physician: Eduardo Pineda MD Primary Care Provider: Wilner Hdez DO History of Present Illness History of Present Illness Polina Snyder is a 63 year old female Review of Systems 2 General: Reports: 10 or more systems reviewed and unremarkable except in HPI and below Const: Denies: fever(s), chills, body aches or change in appetite Eyes: Denies: change in vision or blurry vision Card: Denies: chest pain, palpitations or irregular heart rhythm Resp: Denies: dyspnea GI: Denies: abdominal pain, nausea, vomiting or diarrhea Musc: Reports: joint stiffness Skin/Breast: Reports: non-healing lesions and lesions Neuro: Reports: numbness in extremities Medications/Allergies Home Medications Medication Instructions Recorded Confirmed Last Taken Type fluticasone propionate 50 2 spray intranasal DAILY PRN 11/08/21 10/26/23 Unknown History mcg/actuation nasal Allergy Symptoms spray,suspension miscellaneous medical supply See Rx Instructions .Route 06/18/22 10/26/23 Unknown Rx .COMPLEX #1 ea Nubia Lift #1 ea 12/25/22 10/26/23 Unknown Rx Hospital bed #1 ea 03/22/23 10/26/23 Unknown Rx atenolol 100 mg tablet 100 mg PO BID 06/11/23 10/26/23 10/26/23 09:00 History fenofibrate micronized 200 mg 200 mg PO BEDTIME 06/11/23 10/26/23 10/25/23 History capsule pantoprazole 40 mg tablet,delayed 40 mg PO BID 06/11/23 10/26/23 10/26/23 History release prochlorperazine maleate 10 mg 10 mg PO BID PRN Nausea And 06/11/23 10/26/23 Unknown History tablet (Compazine) Vomiting albuterol sulfate 90 mcg/actuation 2 inh inhalation Q4H PRN shortness 07/17/23 10/26/23 Unknown Rx aerosol inhaler of breath or wheezing #18 grams budesonide 0.5 mg/2 mL suspension 0.5 mg inhalation BID PRN 07/17/23 10/26/23 Unknown History for nebulization Shortness Of Breath Power chair repair #1 ea 07/30/23 10/26/23 Unknown Rx apixaban 5 mg tablet (Eliquis) 5 mg PO BID@0900,2100 pulmonary 07/30/23 10/26/23 10/26/23 Rx embolism #60 tabs silver sulfadiazine 1 % topical 1 applic topical BID #20 grams 09/09/23 10/26/23 Unknown Rx cream (Silvadene) lidocaine-prilocaine 2.5 %-2.5 % See Rx Instructions .Route 09/10/23 10/26/23 Unknown Rx topical cream .COMPLEX #30 grams ketoconazole 2 % shampoo See Rx Instructions .Route 09/18/23 10/26/23 Unknown Rx .COMPLEX #120 mL nystatin 100,000 unit/gram topical 1 applic topical TID #15 grams 09/25/23 10/26/23 Unknown Rx powder venlafaxine 150 mg 150 mg PO QAM #90 caps 10/07/23 10/26/23 10/26/23 Rx capsule,extended release 24 hr aspirin 325 mg tablet 325 mg PO Q4H PRN Headache 10/26/23 10/26/23 10/26/23 History diazepam 5 mg tablet 5 mg PO QAM 10/26/23 10/26/23 10/26/23 History see pharmacy comment furosemide 40 mg tablet 40 mg PO DAILY PRN Edema 10/26/23 10/26/23 Unknown History gabapentin 600 mg tablet 900 mg PO TID 10/26/23 10/26/23 10/26/23 History metformin 500 mg tablet,extended 500 mg PO QAM 10/26/23 10/26/23 10/26/23 09:00 History release 24 hr methadone 40 mg soluble tablet 30 mg PO QAM 10/26/23 10/26/23 10/24/23 History potassium chloride 20 mEq 20 meq PO DAILY PRN unknown 10/26/23 10/26/23 Unknown History tablet,extended release Allergies Allergy/AdvReac Type Severity Reaction Status Date / Time nalbuphine Allergy Unknown sick to Verified 10/07/23 09:01 stomach adhesive tape Allergy rash Verified 10/07/23 09:01 amitriptyline Allergy Unknown Verified 10/07/23 09:01 nitrofurantoin Allergy ADR-Vomitin Verified 10/07/23 09:01 [From Macrobid] g Sulfa (Sulfonamide Allergy Itch all Verified 10/07/23 09:01 Antibiotics) over Current Medications Generic Name Dose Route Start Last Admin Trade Name Freq PRN Reason Stop Dose Admin Dextrose 50 ml 10/26/23 19:17 10/26/23 23:31 Dextrose 50% Syringe 50 Ml IVP 50 ml PRN PRN Administration hypoglycemia protocol Protocol Enoxaparin Sodium 80 mg 10/27/23 11:00 10/28/23 11:44 Enoxaparin 80 Mg/0.8 Ml Syringe 1 mg/kg (80 mg) 80 mg SUBCUT Administration Q12H RANJIT norepinephrine 4 mg in 250 mls @ 0 mls/hr 10/26/23 16:45 10/28/23 10:36 Levophed IV 2 mcg/min .Q0M RANJIT 7.5 mls/hr Administration Protocol Per Protocol Piperacillin Sod/Tazobactam 50 mls @ 12.5 mls/hr 10/26/23 23:30 10/28/23 07:44 Sod 3.375 gm/ Sodium Chloride IV 12.5 mls/hr Q8H RANJIT Administration Protocol Fluconazole 400 mg in 200 mls @ 200 mls/hr 10/26/23 20:00 10/28/23 07:13 Diflucan Premix IV Infused Q24H RANJIT Infusion Dextrose 500 mls @ 0 mls/hr 10/26/23 19:17 10/27/23 04:43 D5w IV Infused ONCE PRN Infusion Adult Acute Hypoglycemia Prot Protocol Per Protocol Vancomycin/PEG/NADA/Lysine/Water 1,250 mg in 250 mls @ 250 mls/hr 10/27/23 03:00 10/28/23 07:13 Vancocin IV Infused Q12H RANJIT Infusion Dextrose 1,000 mls @ 50 mls/hr 10/27/23 11:15 10/28/23 05:57 D10w IV 50 mls/hr .Q20H RANJIT Administration Lidocaine HCl 5 ml/ Potassium 105 mls @ 26.25 mls/hr 10/28/23 09:15 10/28/23 10:37 Chloride IV 10/28/23 17:14 26.25 mls/hr Q4H RANJIT Administration Insulin Human Lispro 0 unit 10/26/23 19:30 10/28/23 07:13 Insulin Lispro 100 Unit/1 Ml SUBCUT Not Given Q6H RANJIT Protocol Morphine Sulfate 2 mg 10/26/23 19:10 10/27/23 19:30 Morphine 4 Mg/Ml Sdv 1 Ml IVP 2 mg Q4H PRN Administration SEVERE PAIN Non-Formulary Medication 200 mg 10/26/23 21:00 10/27/23 21:38 Fenofibrate Micronized PO Not Given BEDTIME RANJIT Nystatin 1 applic 10/26/23 21:00 10/28/23 08:35 Nystatin Powder 15 Gm Btl TOPICAL 1 applic TID RANJIT Administration Pantoprazole Sodium 40 mg 10/26/23 18:33 10/28/23 09:[address] 40 Mg Tablet PO Not Given BID RANJIT Venlafaxine HCl 150 mg 10/27/23 06:00 10/28/23 06:06 Venlafaxine Er (24hr) 150 Mg Capsule PO 150 mg QAM RANJIT Administration PFSH Acute 2 PFSH: Medical History (Updated 10/27/23 @ 19:13 by Brian Mccauley MD) COPD (chronic obstructive pulmonary disease) AMS (altered mental status) Metabolic encephalopathy Degenerative joint disease of left knee Closed fracture of left distal femur Hypertension Closed femur fracture Venous stasis ulcer Cellulitis Diabetic neuropathy associated with type 2 diabetes mellitus Diastolic CHF Anemia Substance abuse Depression with anxiety Chronic pain History of DVT of lower extremity post-operative Hyperlipidemia Hypertension History of cardioversion history of SVT vs for other arrhythmia Methamphetamine use Diabetes mellitus, type II Bubsjjz-Xzmxu-Rayyj disease-like deformity of foot right Lung cancer Torticollis, acquired Has had good results with Botox in the past Lumbar radiculopathy Cervical post-laminectomy syndrome Surgical History Status post above-knee amputation of right lower extremity Hx of neck surgery x 2, posterior laminectomy and cervical fusion with hardware in place, limited ROM neck at baseline Hx of total knee replacement (~2010) Right History of arthroplasty of left knee (~1976) History of partial hysterectomy Hx of dilation and curettage Hx of tubal ligation Hx of appendectomy Family History Family/Other Hypertension Depression Anxiety Diabetes Father Aneurysm Mother Hypertension Brother Diabetes Sister Diabetes Social History Smoking and tobacco/nicotine status: current every day tobacco/nicotine user Alcohol intake: never Substance/Drug Use: current Substance/Drug use frequency: few times a month Additional social history: unknown if patient continues to smoke, documented to smoke previously Marital status: Female Reproductive History: Spontaneous abortions: No Vitals/I&O/Wt Last Vital Signs Temp 98.5 F 10/28/23 07:30 Pulse 77 10/28/23 11:30 Resp 18 10/28/23 11:30 BP 103/61 10/28/23 11:30 Pulse Ox 94 10/28/23 11:30 O2 Del Method Nasal Cannula 10/28/23 11:30 O2 Flow Rate 2 10/28/23 11:30 10/27/23 10/28/23 10/28/23 22:59 06:59 14:59 Intake Total 345 / 885 925.833 / 1810.833 525 / 525 Output Total 650 / 950 825 / 1775 Balance -305 / -65 100.833 / 35.833 525 / 525 Weight last 48 hrs Weight 196 lb Weight 196 lb Weight 195 lb 5 oz Weight 195 lb 5 oz Weight 185 lb Weight 185 lb Physical Exam 2 Narrative: BELOW IS A FOCUSED LOWER EXTREMITY EXAM GENERAL: A&O x 3 VASCULAR: DP/PT pulses left foot palpable 2/4 with CFT intact, <3seconds to distal digits DERMATOLOGICAL: Diffuse scale to left lower extremity with multiple superficial ulcerations to left leg. Mild surrounding erythema, no ascending cellulitis, streaking or fluctuance of left lower extremity. No evidence of deep space abscess. Plantar left 1st metatarsal head wound measures 0.3 x 0.3 x 0.3cm negative probe to bone. No active drainage and no underlying fluctuance or signs of deep space infection. Posterior left heel wound measures 5.2 x 5.0 x 0.2cm, hyperkeratotic rim, stable with no active purulence. 100% granular wound base. No underlying fluctuance. MUSCULOSKELETAL: Right BKA. NEUROLOGICAL: Neurological sensation to the affected foot and ankle is diminished IMAGING: CT scan of left foot personally interpreted by me which shows no signs of osteomyelitis. Soft tissue defect was referred to as possible subcutaneous emphysema. This coorelated clinically with the wound. No subcutaneous gas visualized. Urinary Catheter Management: Garber: Cath Placed During This Visit: yes Reason for Continuing Indwelling Catheter: Accurate Measurement of Urinary Output in Critically Ill Patients Urinary Catheter Date of Insertion: 10/26/23 Urinary Catheter Time of Insertion: 16:05 Data 10/28/23 03:40 10/28/23 03:40 Micro: Microbiology 10/26/23 14:51 Blood Culture - Preliminary Blood NEGATIVE TO DATE 10/26/23 14:48 Blood Culture - Preliminary Blood NEGATIVE TO DATE 10/26/23 14:48 Gram Stain - Final Leg - #1 Wound Culture - Preliminary Gram Negative Rods A&P Assessment and plan (1) Ulcer of left heel: Qualifiers: Non-pressure ulcer stage: with fat layer exposed Qualified Code(s): L 97.422 - Non-pressure chronic ulcer of left heel and midfoot with fat layer exposed (2) Right above-knee amputee: (3) Diabetes mellitus, type II: (4) Chronic wound of extremity: Plan -Multiple ulcerations left lower extremity -Labs and vitals reviewed -WBC 20.2--> 16.1 -ESR 107 -CRP 293 -HR 77 -RR 18 -Tmax 98.5 -Cultures right leg show gram-negative rods -Abx vancomycin/Zosyn -Diet: Currently n.p.o. per hospitalist -No plan for acute surgical intervention from podiatry standpoint. Wounds of left lower extremity are found to be stable upon evaluation -CT scan reviwed. No gas. Concern for gas visualized on CT scan is actually soft tissue defect from site of ulceration plantar 1st metatarsal head -Pain Mgmt: Morphine 2 mg every 4 hours per hospitalist -Weight bearing: Nonweightbearing to left lower extremity, right-sided BKA -Dressings: Daily dressing changes to left lower extremity wounds consisting of silvercel, dry sterile dressing -Continue current Abx therapy until ID and Sensitivity results -Trend labs -Discharge plan: To be determined -Podiatry will continue to follow Coding Level of Care Code Acute Code for Chg Fwd Diagnoses Skin ulcer of left heel with fat layer exposed L97.422 Non-pressure ulcer stage: with fat layer exposed Right above-knee amputee Z89.611 Type 2 diabetes mellitus with other diabetic arthropathy, 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 Chronic wound of extremity
[2023-10-28] MEDS: insulin lispro 100 unit/1 mL SUBCUT (14:04)
[2023-10-28] MEDS: dextrose 5%-sod chloride 0.9% 1,000 ML 75 ML IV (14:08)
[2023-10-28] MEDS: iron sucrose 200 MG in sodium chloride 0.9% (100 ml) 100 ML 220 MG IV (14:09)
[2023-10-28 15:40] LABS: Vancomycin Trough 14.7 ug/mL (10-15)
[2023-10-28 15:49] LABS: Vitamin B12 > 2000 pg/mL (232-1245)
[2023-10-28 17:40] LABS: Glucose Point of Care 164 mg/dL (70-110)
--- NOTE | 2023-10-28 18:34 | PM.PN ---
Subjective Subjective: Hospital course, labs appreciated. On examination today patient is somnolent, blood pressure was soft for which she required to be on Levophed which was later tapered down during the day. Patient asked the nurse was waking up to take her medications in the morning but on examination he is somnolent and not waking up to verbal stimulus. Maintaining her airway. Document urine output of 1700 in last 24 hours. Vitals/I&O/Wt Last Vital Signs Temp 97.9 F 10/28/23 16:30 Pulse 74 10/28/23 17:00 Resp 15 10/28/23 17:00 BP 94/60 10/28/23 17:00 Pulse Ox 96 10/28/23 17:00 O2 Del Method Nasal Cannula 10/28/23 17:00 O2 Flow Rate 2 10/28/23 17:00 10/28/23 10/28/23 10/28/23 06:59 14:59 22:59 Intake Total 925.833 / 7996.327 6388.542 / 1118.542 360 / 1478.542 Output Total 825 / 1775 675 / 675 Balance 100.833 / 35.833 1118.542 / 1118.542 -315 / 803.542 Weight last 48 hrs Weight 88.904 kg Weight 88.904 kg Weight 88.592 kg Weight 88.592 kg Physical Exam Const: COMMON NORMALS: patient oriented x3 and alert GENERAL APPEARANCE: cooperative OTHER: Somnolent. HENMT: COMMON NORMALS: oropharynx normal Neck/C-Spine: COMMON NORMALS: no JVD Resp: COMMON NORMALS: normal respiratory effort and clear to auscultation bilaterally AUSCULTATION: clear to auscultation bilaterally Cardio: COMMON NORMALS: no JVD, regular rhythm, S1 normal heart sound present, S2 normal heart sound present and No murmurs present (Cardio) RHYTHM: regular rhythm HEART SOUNDS: S1 normal heart sound present and S2 normal heart sound present GI: COMMON NORMALS: Normal to inspection, nondistended, normoactive bowel sounds present, Soft to palpation and non-tender PALPATION: Yes Soft to palpation Extremity: COMMON NORMALS: no joint enlargement and no pedal edema NARRATIVE EXTREMITY EXAM: Right AKA There is some crepitus on movement of the left hip. Neuro: COMMON NORMALS: patient oriented x3 and moves all extremities SENSORIUM/ORIENTATION: Yes alert Skin: NARRATIVE SKIN EXAM: Erythema with crepitus on the right stump, left leg showing decreased area of cellulitis Additionally intertrigo with yeast odor under pannus, groin. I do not appreciate cellulitis extending into the groin. Blood-filled blister/clot/eschar 1 cm byx 4 mm on dorsal surface of the L third toe. Urinary Catheter Management: Garber: Cath Placed During This Visit: yes Reason for Continuing Indwelling Catheter: Accurate Measurement of Urinary Output in Critically Ill Patients Urinary Catheter Date of Insertion: 10/26/23 Urinary Catheter Time of Insertion: 16:05 Data 10/29/23 04:19 10/29/23 04:19 Micro: Microbiology 10/26/23 14:48 Gram Stain - Final Leg - #1 Wound Culture - Preliminary Pseudomonas aeruginosa Group g streptococcus 10/26/23 14:51 Blood Culture - Preliminary Blood NEGATIVE TO DATE 10/26/23 14:48 Blood Culture - Preliminary Blood NEGATIVE TO DATE A&P Assessment and plan (1) Sepsis: With concerns for shock. Keep mean artery pressure 65. Levophed if needed. Continue with IV hydration at current rate. Improper charting, daily weights. Qualifiers: Sepsis acute organ dysfunction status: with acute organ dysfunction Sepsis type: sepsis due to unspecified organism Severe sepsis acute organ dysfunction type: unspecified Severe sepsis shock status: with septic shock Qualified Code(s): A41.9 - Sepsis, unspecified organism; R65.21 - Severe sepsis with septic shock (2) Cellulitis: Appreciate CT of left leg, ultrasound of the right stump. Appreciate surgical recommendations of examination negative for necrotizing fasciitis. Wound culture growing gram-negative rods. Follow-up blood culture. For now continue with current IV antibiotics vancomycin and Zosyn. Dose renally. Will consult podiatry for further recommendations on left leg cellulitis and open wound on left foot with concerns for Charcot. Discussed in detail with orthopedics regarding possible fluid collection on the right stump who recommended patient to be seen by Dr. Castillo. Will plan for MRI of the stump and MRI of the left leg to rule out osteomyelitis. Possibility of patient requiring BKA on the left leg. Will consult Dr. Mayers accordingly. Continue with Diflucan. (3) AMS (altered mental status): Most likely in setting of sepsis, polypharmacy with pain and anxiety medications along with hyponatremia on admission. Hyponatremia has resolved. Most likely in setting of polypharmacy. On further review with pharmacy it seems patient gets methadone through [facility]. Patient has not been able to go to [facility] regularly. Hold off on any further methadone. Admission positive for amphetamines. Change diazepam to as needed. Start on gabapentin at 200 3 times daily. Change venlafaxine to p.m. (4) Hypoglycemia: Most likely in setting of severe sepsis. Pressure is better controlled. Change fluid to D5 NS which should also help with hyponatremia. Hypoglycemia protocol. (5) Diabetes mellitus, type II: Accu-Cheks requested, sliding scale insulin. Complicated by diabetic neuropathy. (6) Acute hyponatremia: Resolving. Sodium up to 132. Fluid change as above. Monitor daily for now. (7) Intertrigo: Diflucan. Nystatin powder. Plan lower extremity wounds: Continue wound care. Wound care consultation if possible on Sat. History of PE: On anticoagulation with Eliquis. Lovenox here for now. COPD: Currently not in exacerbation, not normally on oxygen. HTN: Hold antihypertensive HLD Venous stasis ulcers and diabetic wounds: Follows with wound care. Diastolic CHF: Currently does not appear in exacerbation Anemia History of substance use disorder: On methadone, will need to confirm dose on Saturday when open. For now resumed at 30 mg daily. Afwghov-Bgmfl-Yiklo deformity Lumbar radiculopathy Other medical problems Full status: Full code. Will try to call patient's life partner to have further discussion about goals of care. NPO. Full dose Lovenox will suffice DVT prophylaxis Protonix for PUD prophylaxis Attestations Medical Necessity Statement*: Requires further hospitalization for management of septic shock, lower limb cellulitis and possible abscess collection, altered mental status Diagnoses Sepsis A41.9; R65.21 Sepsis acute organ dysfunction status: with acute organ dysfunction Sepsis type: sepsis due to unspecified organism Severe sepsis acute organ dysfunction type: unspecified Severe sepsis shock status: with septic shock Cellulitis L03.90 AMS (altered mental status) R41.82 Hypoglycemia E16.2 Type 2 diabetes mellitus with other diabetic arthropathy, 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 Acute hyponatremia E87.1 Intertrigo L30.4
--- NOTE | 2023-10-28 18:44 | PC.NURSE ---
Pt has rested in bed throughout the shift.. She has remained obtunded this am. She would only moan a little with repositioning. Due to this, PO medication was held today, Dr Kuhn aware. She was hypotensive this am. Levophed started at 2mcg/min. Hypotension resolved early this afternoon and leophed stopped. IV fluids changed to D5%/NS. She received Iron sucralose and 2 k-ryders of 40mEq today. Dressing to left leg hanged this am Dr Laguna consulted, redressed leg this afternoon. She is scheduled for MRI of her legs tomorrow. She had 675 ml of urine output this shift.
[2023-10-28 18:46] LABS: Glucose Point of Care 102 mg/dL (70-110)
[2023-10-28] MEDS: fluconazole premix 400 MG/200 ML PIGGYBACK 200 MG IV (19:43)
[2023-10-28] MEDS: budesonide 0.5 mg/2 mL Neb INHALATION (20:04)
[2023-10-28] MEDS: gabapentin 100 mg Capsule 200 MG PO (21:28)
--- NOTE | 2023-10-28 23:35 | US_ITS ---
WS: [id number] ULTRASOUND SOFT TISSUES distal RIGHT thigh. HISTORY: R stump, assess for any fluid collection/abscess COMPARISON: None available. TECHNIQUE: 2-D and color Doppler imaging is submitted. Mild diffuse soft tissue edema. Along the distal lateral RIGHT thigh is a fluid collection extending through the subcutaneous soft tissues measuring 13 x 8 mm. No increased vascularity is identified. IMPRESSION: 1. Very tiny subcutaneous soft tissue fluid collection measuring 13 x 8 mm in the distal lateral RIGH T thigh. Very nonspecific. No increased vascularity. This may be a small phlegmon. This is at the sit e of the overlying soft tissue erythema.
[2023-10-29] VITALS (25 sets, daily range): BP systolic 90–131; BP diastolic 57–101; PULSE 77–91; RESP 14–26; TEMP 36.1–36.7; O2SAT 90–98; BMI 31.6
[2023-10-29 02:07] LABS: Glucose Point of Care 122 mg/dL (70-110)
[2023-10-29] MEDS: vancomycin 1,250 MG/250 ML PIGGYBACK 250 MG IV ×2 (03:02→17:21)
[2023-10-29 04:30] LABS: Basophils # 0.1 10^3/uL (0.0-0.1); Basophils % 0.4 %; Eosinophils # 0.2 10^3/uL (0.0-0.8); Eosinophils % 1.3 %; Hematocrit 31.2 % (36-47); Lymphocytes # 1.2 10^3/uL (0.8-4.8); Lymphocytes % 6.9 %; Mean Corpuscular HGB Conc 28.8 g/dL (30-55); Mean Corpuscular Hemoglobin 26.2 pg (27-33); Mean Corpuscular Volume 90.7 fl (85-98); Mean Platelet Volume 9.4 fL (7.4-10.4); Monocytes # 1.4 10^3/uL (0.2-0.9); Monocytes % 7.8 %; Neutrophils # 14.16 10^3/uL (1.8-7.7); Neutrophils % 80.3 %; Nucleated Red Blood Cells % 0 %; Platelet Count 295 10^3/cmm (157-399); Red Blood Count 3.44 10^6/uL (3.85-5.65); Red Cell Distribution Width 20.9 % (12.1-15.1); White Blood Count 17.62 10^3/uL (3.29-11.43)
--- NOTE | 2023-10-29 04:33 | PC.NURSE ---
left hand edema- nurse removed 3 rings and placed them in the pyxis.
[2023-10-29 04:45] LABS: Alanine Aminotransferase 8 U/L (0-33); Albumin Level 2.4 g/dL (3.5-5.2); Alkaline Phosphatase 116 U/L (35-105); Anion Gap 14.2 (5-19); Aspartate Amino Transferase 10 U/L (0-32); Blood Urea Nitrogen 7 mg/dL (8-23); Calcium 8.3 mg/dL (8.5-10.5); Carbon Dioxide 25 mmol/L (22-29); Chloride 101 mmol/L (98-107); Globulin 3.3 g/dL (1.3-4.6); Glomerular Filtration Rate 224.7 mL/min (90-130); Glucose 129 mg/dL (65-115); Magnesium 1.9 mg/dL (1.7-2.3); Osmolality Calculated 282 mOsm/kg (285-295); Potassium 4.2 mmol/L (3.5-5.1); Sodium 136 mmol/L (136-145); Total Bilirubin 1.1 mg/dL (0.15-1.2); Total Protein 5.7 g/dL (6.6-8.7)
[2023-10-29] MEDS: dextrose 5%-sod chloride 0.9% 1,000 ML 75 ML IV ×2 (05:54→22:13)
[2023-10-29 06:42] LABS: Glucose Point of Care 134 mg/dL (70-110)
[2023-10-29 07:20] LABS: Glucose Point of Care 129 mg/dL (70-110)
[2023-10-29] MEDS: nystatin powder 15 gm Btl 1 APPLIC TOPICAL ×3 (08:16→21:37)
[2023-10-29] MEDS: piperacillin-tazobactam 3.375 GM in sodium chloride 0.9% (plus) 50 ML IV ×3 (08:16→23:09)
[2023-10-29] MEDS: gabapentin 100 mg Capsule 200 MG PO (08:16)
[2023-10-29] MEDS: pantoprazole DR 40 mg Tablet PO ×2 (08:16→17:22)
--- NOTE | 2023-10-29 09:35 | P.CONIM_ITS ---
Providers/Reason For Consult 2 Consulting Physician/Specialty*: Dr. Champagne/cardiothoracic surgery Reason for Consult*: Cellulitis right AKA Requesting Physician: Dr. Pineda Attending Physician: Eduardo Pineda MD Primary Care Provider: Wilner Hdez DO History of Present Illness History of Present Illness Polina Snyder is a 63 year old female who has been previously cared for in wound care services for a left foot wound. She is a longstanding diabetic status post right above-knee amputation. She was admitted after presentation to the emergency department on October 26 with complaints of malaise, chills, fever, cough, and decreased appetite. Initial evaluation revealed erythema and what appeared to be cellulitis of left lower extremity with a left longstanding calcaneal wound. There is also erythema over the distal aspect of previous right above-knee amputation. Upon presentation she had a 20,000 white blood cell count and a hemoglobin of 10.9./ BUN 17 /creatinine 0.6./ Lactic acid 1.3 /C-reactive protein 293/procalcitonin 1.16 CT scan of the left lower extremity on October 26, 2023: 1. Negative for focal acute appearing bony abnormality, if clinical concern for osteomyelitis remains consider further evaluation with MRI scan. 2. Severe tricompartmental osteoarthritis of the knee. 3. 14 mm calcific loose body in the posterior aspect of the lateral knee joint . 4. Calcified heel spur. 5. Diffuse decreased bone density. 6. Diffuse subcutaneous edema throughout the lower extremity, nonspecific. 7. Suspected subcutaneous emphysema seen over the medial aspect of the 1st metatarsal head with some more localized subcutaneous edema, concerning for an ulcer, please correlate clinically. 8. Surgical hardware somewhat visualized in the femur. Soft tissue ultrasound of the right AKA on October 28 revealed: 1. Very tiny subcutaneous soft tissue fluid collection measuring 13 x 8 mm in the distal lateral RIGHT thigh. Very nonspecific. No increased vascularity. This may be a small phlegmon. This is at the site of the overlying soft tissue erythema. Examination reveals erythema of both lower extremities. There is erythema of the distal right AKA with some modest induration medially over the area described on ultrasound though no ballotable fluid collection is noted. This would be very difficult to localize my external exam and it size would be challenging for direct surgical drainage, though ultrasound-guided aspiration could be performed if material needed to be collected for further culture analysis. Review of Systems 2 General: Reports: ROS unobtainable due to medical condition Medications/Allergies Home Medications Medication Instructions Recorded Confirmed Last Taken Type fluticasone propionate 50 2 spray intranasal DAILY PRN 11/08/21 10/26/23 Unknown History mcg/actuation nasal Allergy Symptoms spray,suspension miscellaneous medical supply See Rx Instructions .Route 06/18/22 10/26/23 Unknown Rx .COMPLEX #1 ea Nubia Lift #1 ea 12/25/22 10/26/23 Unknown Rx Hospital bed #1 ea 03/22/23 10/26/23 Unknown Rx atenolol 100 mg tablet 100 mg PO BID 06/11/23 10/26/23 10/26/23 09:00 History fenofibrate micronized 200 mg 200 mg PO BEDTIME 06/11/23 10/26/23 10/25/23 History capsule pantoprazole 40 mg tablet,delayed 40 mg PO BID 06/11/23 10/26/23 10/26/23 History release prochlorperazine maleate 10 mg 10 mg PO BID PRN Nausea And 06/11/23 10/26/23 Unknown History tablet (Compazine) Vomiting albuterol sulfate 90 mcg/actuation 2 inh inhalation Q4H PRN shortness 07/17/23 10/26/23 Unknown Rx aerosol inhaler of breath or wheezing #18 grams budesonide 0.5 mg/2 mL suspension 0.5 mg inhalation BID PRN 07/17/23 10/26/23 Unknown History for nebulization Shortness Of Breath Power chair repair #1 ea 07/30/23 10/26/23 Unknown Rx apixaban 5 mg tablet (Eliquis) 5 mg PO BID@0900,2100 pulmonary 07/30/23 10/26/23 10/26/23 Rx embolism #60 tabs silver sulfadiazine 1 % topical 1 applic topical BID #20 grams 09/09/23 10/26/23 Unknown Rx cream (Silvadene) lidocaine-prilocaine 2.5 %-2.5 % See Rx Instructions .Route 09/10/23 10/26/23 Unknown Rx topical cream .COMPLEX #30 grams ketoconazole 2 % shampoo See Rx Instructions .Route 09/18/23 10/26/23 Unknown Rx .COMPLEX #120 mL nystatin 100,000 unit/gram topical 1 applic topical TID #15 grams 09/25/23 10/26/23 Unknown Rx powder venlafaxine 150 mg 150 mg PO QAM #90 caps 10/07/23 10/26/23 10/26/23 Rx capsule,extended release 24 hr aspirin 325 mg tablet 325 mg PO Q4H PRN Headache 10/26/23 10/26/23 10/26/23 History diazepam 5 mg tablet 5 mg PO QAM 10/26/23 10/26/23 10/26/23 History see pharmacy comment furosemide 40 mg tablet 40 mg PO DAILY PRN Edema 10/26/23 10/26/23 Unknown History gabapentin 600 mg tablet 900 mg PO TID 10/26/23 10/26/23 10/26/23 History metformin 500 mg tablet,extended 500 mg PO QAM 10/26/23 10/26/23 10/26/23 09:00 History release 24 hr methadone 40 mg soluble tablet 30 mg PO QAM 10/26/23 10/26/23 10/24/23 History potassium chloride 20 mEq 20 meq PO DAILY PRN unknown 10/26/23 10/26/23 Unknown History tablet,extended release Allergies Allergy/AdvReac Type Severity Reaction Status Date / Time nalbuphine Allergy Unknown sick to Verified 10/07/23 09:01 stomach adhesive tape Allergy rash Verified 10/07/23 09:01 amitriptyline Allergy Unknown Verified 10/07/23 09:01 nitrofurantoin Allergy ADR-Vomitin Verified 10/07/23 09:01 [From Macrobid] g Sulfa (Sulfonamide Allergy Itch all Verified 10/07/23 09:01 Antibiotics) over Current Medications Generic Name Dose Route Start Last Admin Trade Name Freq PRN Reason Stop Dose Admin Budesonide 0.5 mg 10/28/23 20:00 10/29/23 07:42 Budesonide 0.5 Mg/2 Ml Neb INHALATION Not Given BID.RESPIRATORY RANJIT Dextrose 50 ml 10/26/23 19:17 10/26/23 23:31 Dextrose 50% Syringe 50 Ml IVP 50 ml PRN PRN Administration hypoglycemia protocol Protocol Enoxaparin Sodium 80 mg 10/27/23 11:00 10/28/23 23:54 Enoxaparin 80 Mg/0.8 Ml Syringe 1 mg/kg (80 mg) 80 mg SUBCUT Administration Q12H RANJIT Gabapentin 200 mg 10/28/23 15:00 10/29/23 08:16 Gabapentin 100 Mg Capsule PO 200 mg TID RANJIT Administration norepinephrine 4 mg in 250 mls @ 0 mls/hr 10/26/23 16:45 10/28/23 14:11 Levophed IV Infused .Q0M RANJIT Titration Protocol Per Protocol Piperacillin Sod/Tazobactam 50 mls @ 12.5 mls/hr 10/26/23 23:30 10/29/23 08:16 Sod 3.375 gm/ Sodium Chloride IV 12.5 mls/hr Q8H RANJIT Administration Protocol Fluconazole 400 mg in 200 mls @ 200 mls/hr 10/26/23 20:00 10/28/23 20:43 Diflucan Premix IV Infused Q24H RANJIT Infusion Dextrose 500 mls @ 0 mls/hr 10/26/23 19:17 10/27/23 04:43 D5w IV Infused ONCE PRN Infusion Adult Acute Hypoglycemia Prot Protocol Per Protocol Vancomycin/PEG/NADA/Lysine/Water 1,250 mg in 250 mls @ 250 mls/hr 10/27/23 03:00 10/29/23 04:02 Vancocin IV Infused Q12H RANJIT Infusion Dextrose 1,000 mls @ 50 mls/hr 10/27/23 11:15 10/29/23 03:34 D10w IV Not Given .Q20H RANJIT Dextrose/Sodium Chloride 1,000 mls @ 75 mls/hr 10/28/23 12:30 10/29/23 05:54 Dextrose 5%-Sod Chloride 0.9% IV 75 mls/hr .[id number] RANJIT Administration Iron Sucrose 200 mg/ Sodium 110 mls @ 220 mls/hr 10/28/23 13:30 10/28/23 15:00 Chloride IV 11/01/23 13:59 Infused Q24H RANJIT Infusion Insulin Human Lispro 0 unit 10/26/23 19:30 10/29/23 08:11 Insulin Lispro 100 Unit/1 Ml SUBCUT Not Given Q6H [facility] Protocol Morphine Sulfate 2 mg 10/26/23 19:10 10/27/23 19:30 Morphine 4 Mg/Ml Sdv 1 Ml IVP 2 mg Q4H PRN Administration SEVERE PAIN Non-Formulary Medication 200 mg 10/26/23 21:00 10/28/23 21:36 Fenofibrate Micronized PO Not Given BEDTIME RANJIT Nystatin 1 applic 10/26/23 21:00 10/29/23 08:16 Nystatin Powder 15 Gm Btl TOPICAL 1 applic TID RANJIT Administration Pantoprazole Sodium 40 mg 10/26/23 18:33 10/29/23 08:[address] 40 Mg Tablet PO 40 mg BID RANJIT Administration Venlafaxine HCl 150 mg 10/28/23 21:00 10/28/23 21:33 Venlafaxine Er (24hr) 150 Mg Capsule PO 150 mg BEDTIME RANJIT Administration PFSH Acute 2 PFSH: Medical History COPD (chronic obstructive pulmonary disease) AMS (altered mental status) Metabolic encephalopathy Degenerative joint disease of left knee Closed fracture of left distal femur Hypertension Closed femur fracture Venous stasis ulcer Cellulitis Diabetic neuropathy associated with type 2 diabetes mellitus Diastolic CHF Anemia Substance abuse Depression with anxiety Chronic pain History of DVT of lower extremity post-operative Hyperlipidemia Hypertension History of cardioversion history of SVT vs for other arrhythmia Methamphetamine use Diabetes mellitus, type II Xrgsibr-Ukqjm-Aikee disease-like deformity of foot right Lung cancer Torticollis, acquired Has had good results with Botox in the past Lumbar radiculopathy Cervical post-laminectomy syndrome Surgical History Status post above-knee amputation of right lower extremity Hx of neck surgery x 2, posterior laminectomy and cervical fusion with hardware in place, limited ROM neck at baseline Hx of total knee replacement (~2010) Right History of arthroplasty of left knee (~1976) History of partial hysterectomy Hx of dilation and curettage Hx of tubal ligation Hx of appendectomy Family History Family/Other Hypertension Depression Anxiety Diabetes Father Aneurysm Mother Hypertension Brother Diabetes Sister Diabetes Social History Smoking and tobacco/nicotine status: current every day tobacco/nicotine user Alcohol intake: never Substance/Drug Use: current Substance/Drug use frequency: few times a month Additional social history: unknown if patient continues to smoke, documented to smoke previously Marital status: Female Reproductive History: Spontaneous abortions: No Vitals/I&O/Wt Last Vital Signs Temp 96.9 F L 10/29/23 05:59 Pulse 80 10/29/23 08:00 Resp 16 10/29/23 08:00 BP 101/62 10/29/23 08:00 Pulse Ox 97 10/29/23 08:00 O2 Del Method Nasal Cannula 10/29/23 07:43 O2 Flow Rate 2 10/29/23 07:43 10/28/23 10/29/23 10/29/23 22:59 06:59 14:59 Intake Total 730 / 9022.756 4908 / 3153.542 Output Total 955 / 955 375 / 1330 Balance -225 / 893.542 930 / 1823.542 Weight last 48 hrs Weight 202 lb Weight 196 lb Weight 196 lb Physical Exam 2 Const: COMMON NORMALS: no acute distress; negative for patient oriented x3, negative for healthy appearing and negative for alert Resp: COMMON NORMALS: normal respiratory effort and clear to auscultation bilaterally AUSCULTATION: clear to auscultation bilaterally Cardio: COMMON NORMALS: regular rate, regular rhythm and S1 normal heart sound present RATE: regular rate RHYTHM: regular rhythm HEART SOUNDS: S1 normal heart sound present GI: COMMON NORMALS: Normal to inspection, nondistended, normoactive bowel sounds present Extremity: NARRATIVE EXTREMITY EXAM: Longstanding right above-knee amputation with erythema to the distal aspect of the extremity. There is some palpable induration medially over the area in question as noted on ultrasound, though I cannot identify by physical exam a ballotable region that would clearly represent the very tiny subcutaneous soft tissue fluid collection noted on ultrasound from yesterday. Right lower extremity has a dressing in place across the lower ankle and foot. I have reviewed the podiatry photos demonstrating a longstanding chronic ulceration of the left calcaneus which had been previously cared for in wound care services. Neuro: COMMON NORMALS: negative for patient oriented x3 S ENSORIUM/ORIENTATION: No alert Urinary Catheter Management: Garber: Cath Placed During This Visit: yes Reason for Continuing Indwelling Catheter: Accurate Measurement of Urinary Output in Critically Ill Patients Urinary Catheter Date of Insertion: 10/26/23 Urinary Catheter Time of Insertion: 16:05 Data 10/29/23 04:19 10/29/23 04:19 Micro: Microbiology 12/09/23 14:48 Gram Stain - Final Leg - #1 Wound Culture - Preliminary Pseudomonas aeruginosa Group g streptococcus A&P Assessment and plan (1) Chronic wound of extremity: Chronic left calcaneal wound with a contracture left lower extremity. It is doubtful this wound will heal related to the contracture of this extremity. Given the patient is nonambulatory, along with a chronic wound and celiac changes, if patient returns to a cognitive state, it would be reasonable to have discussion concerning elective above-knee amputation with this extremity. If this is entertained and subsequently felt to be the best course and agreed to by the patient, orthopedic service will need to be consulted in relation to the left femoral radha which is in place. It is my understanding that there was a verbal conversation between the hospital service and orthopedic services earlier. We will await results of the MRI scheduled for 5 PM this evening. (2) Cellulitis: Right AKA distal cellulitis with tiny fluid collection noted on ultrasound from yesterday. I cannot discretely identified this area by exam related to induration of the region and would be problematic to attempt surgical drainage without further localization, though not clearly indicated at this time. Hopefully, this may be further elucidated with a scheduled MRI for 5:00 this evening. Consult Attestations 2 Medical Necessity Statement: Cellulitis of lower extremities Coding Level of Care Code Acute Code for Chg Fwd Diagnoses Chronic wound of extremity Cellulitis L03.90
[2023-10-29] MEDS: enoxaparin 80 mg/0.8 mL Syringe SUBCUT ×2 (11:24→22:45)
[2023-10-29] MEDS: morphine 4 mg/mL SDV 1 mL 1 MG IVP ×2 (11:45→23:09)
--- NOTE | 2023-10-29 11:49 | PC.NURSE ---
Morphine administered before MRI, Okayed by DR Kuhn.
--- NOTE | 2023-10-29 13:10 | PC.NURSE ---
Pt had went to MRI for scan of her legs, unable to complete scan due to contracture of left leg, pt unable to straighten sufficiently .
--- NOTE | 2023-10-29 13:40 | P.PN_ITS ---
Subjective 2 Subjective: No acute events overnight. Patient slightly more awake today. Responding to verbal stimulus but not able to participate much in examination. Has been off Levophed since yesterday afternoon. Blood pressures have been better. Urine output of 1300 cc in last 24 hours. Blood work shows persistent leukocytosis up to 17,000 today, hemoglobin of 9, CMP showing resolution of hyponatremia up to 136, stable creatinine 0.3 Vitals/I&O/Wt Last Vital Signs Temp 96.9 F L 10/29/23 05:59 Pulse 80 10/29/23 08:00 Resp 17 10/29/23 11:45 BP 101/62 10/29/23 08:00 Pulse Ox 98 10/29/23 11:45 O2 Del Method Nasal Cannula 10/29/23 07:43 O2 Flow Rate 2 10/29/23 07:43 10/28/23 10/29/23 10/29/23 22:59 06:59 14:59 Intake Total 730 / 6781.574 0211 / 3153.542 532.25 / 532.25 Output Total 955 / 955 375 / 1330 Balance -225 / 893.542 930 / 1823.542 532.25 / 532.25 Weight last 48 hrs Weight 91.626 kg Weight 88.904 kg Weight 88.904 kg Physical Exam 2 Const: COMMON NORMALS: patient oriented x3 and alert GENERAL APPEARANCE: c ooperative OTHER: Somnolent. HENMT: COMMON NORMALS: oropharynx normal Neck/C-Spine: COMMON NORMALS: no JVD Resp: COMMON NORMALS: normal respiratory effort and clear to auscultation bilaterally AUSCULTATION: clear to auscultation bilaterally Cardio: COMMON NORMALS: no JVD, regular rhythm, S1 normal heart sound present, S2 normal heart sound present and No murmurs present (Cardio) RHYTHM: regular rhythm HEART SOUNDS: S1 normal heart sound present and S2 normal heart sound present GI: COMMON NORMALS: Normal to inspection, nondistended, normoactive bowel sounds present, Soft to palpation and non-tender PALPATION: Yes Soft to palpation Extremity: COMMON NORMALS: no joint enlargement and no pedal edema N ARRATIVE EXTREMITY EXAM: Right AKA There is some crepitus on movement of the left hip. Neuro: COMMON NORMALS: patient oriented x3 and moves all extremities S ENSORIUM/ORIENTATION: Yes alert Skin: NARRATIVE SKIN EXAM: Erythema with crepitus on the right stump, left leg showing decreased area of cellulitis Additionally intertrigo with yeast odor under pannus, groin. I do not appreciate cellulitis extending into the groin. Blood-filled blister/clot/eschar 1 cm byx 4 mm on dorsal surface of the L third toe. Urinary Catheter Management: Garber: Cath Placed During This Visit: yes Reason for Continuing Indwelling Catheter: Accurate Measurement of Urinary Output in Critically Ill Patients Urinary Catheter Date of Insertion: 10/26/23 Urinary Catheter Time of Insertion: 16:05 Data 10/29/23 04:19 10/29/23 04:19 Micro: Microbiology 10/26/23 14:48 Gram Stain - Final Leg - #1 Wound Culture - Preliminary Pseudomonas aeruginosa Group g streptococcus A&P Assessment and plan (1) Sepsis: With concerns for shock. Shock seems to have resolved. Keep mean artery pressure 65. Levophed if needed. Continue with IV hydration at current rate. Strict input and output charting, daily weights. Qualifiers: Sepsis acute organ dysfunction status: with acute organ dysfunction S epsis type: sepsis due to unspecified organism Severe sepsis acute organ dysfunction type: unspecified Severe sepsis shock status: with septic shock Qualified Code(s): A41.9 - Sepsis, unspecified organism; R65.21 - Severe sepsis with septic shock (2) Cellulitis: Appreciate CT of left leg, ultrasound of the right stump. Appreciate surgical recommendations of examination negative for necrotizing fasciitis. Wound culture growing Pseudomonas and Streptococcus. Continue with current antibiotics as per culture sensitivities. Follow-up blood culture. So far negative. MRI could not be done because of left leg being locked and not able to straighten because of which patient was not able to fit inside the machine. Appreciate podiatry recommendations. Wound care on the left leg as per podiatry. Appreciate Dr. Cox's recommendation. Because MRI cannot be done we will plan for CT pelvis with contrast, CT right stump with contrast. Further plan of treatment with patient possibly requiring left BKA, drainage of the collection on the right stump as per the studies. Will continue to follow-up with podiatry, Dr. Mayers and may be involved orthopedics if patient needs BKA of the left leg given hardware in the leg. Continue with Diflucan for intertrigo. Finish 7-day course. (3) AMS (altered mental status): Most likely in setting of sepsis, polypharmacy with pain and anxiety medications along with hyponatremia on admission. Hyponatremia has resolved. Most likely in setting of polypharmacy. On further review with pharmacy it seems patient gets methadone through [facility]. Patient has not been able to go to [facility] regularly. Hold off on any further methadone. Admission positive for amphetamines. Further changes with gabapentin down to 100 mg twice daily, decreasing dose of venlafaxine to 75 mg continue diazepam as needed. Holding off on methadone. If patient continues to remain somnolent will try dose of Narcan. (4) Hypoglycemia: Resolved. Most likely in setting of severe sepsis. Continue with D5 NS which should also help with hyponatremia. Hypoglycemia protocol. (5) Diabetes mellitus, type II: Accu-Cheks requested, sliding scale insulin. Complicated by diabetic neuropathy. (6) Acute hyponatremia: Resolved for now. Monitor BMP daily. (7) Intertrigo: Diflucan. Nystatin powder. Plan lower extremity wounds: Continue wound care. Wound care consultation if possible on Sat. Iron deficiency anemia: Patient malnourished as well as patient is not able to have oral intake given altered mental status. Continue with IV iron to finish a 5-day course. Last dose on 11/01. History of PE: On anticoagulation with Eliquis. Lovenox here for now. COPD: Currently not in exacerbation, not normally on oxygen. HTN: Hold antihypertensive HLD Venous stasis ulcers and diabetic wounds: Follows with wound care. Diastolic CHF: Currently does not appear in exacerbation Anemia History of substance use disorder: On methadone, will need to confirm dose on Saturday when open. For now resumed at 30 mg daily. Naiozpn-Kzdob-Rhicm deformity Lumbar radiculopathy Other medical problems Full status: Full code. Discussed patient's care in detail with her life partner over the phone. He states patient does have children though they are not involved. Also has an aunt. He is agreeable to make patient's medical decision as as per him he has been helping with her medical conditions for a long time. Will confirm with patient's and before making any further decision. He confirms patient had wished in the past to remain full code. NPO. Full dose Lovenox will suffice DVT prophylaxis Protonix for PUD prophylaxis Attestations 2 Medical Necessity Statement*: Requires further hospitalization for management of sepsis in setting of significant cellulitis, right stump infection, altered mental status in setting of polypharmacy Diagnoses Sepsis A41.9; R65.21 Sepsis acute organ dysfunction status: with acute organ dysfunction Sepsis type: sepsis due to unspecified organism Severe sepsis acute organ dysfunction type: unspecified Severe sepsis shock status: with septic shock Cellulitis L03.90 AMS (altered mental status) R41.82 Hypoglycemia E16.2 Type 2 diabetes mellitus with other diabetic arthropathy, 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 Acute hyponatremia E87.1 Intertrigo L30.4
--- NOTE | 2023-10-29 13:44 | CT_ITS ---
WS: [id number] CT pelvis TECHNIQUE: Contrast-enhanced CT of the pelvis with coronal and sagittal reformatted images. CLINICAL INFORMATION: History of left hip abscess, cellulitis currently COMPARISON: None. DLP: 1763.[address] scans at [facility] use at least one of these dose optimization techniques: automated e xposure control; mA and/or kV adjustment per patient size (includes targeted exams where dose is matc hed to clinical indication); or iterative reconstruction. FINDINGS:Mild diffuse body wall anasarca. Garber catheter. Few sigmoid diverticula. No evidence of acu te diverticulitis. Trace free fluid in the cul-de-sac. Mild RIGHT colonic constipation. Low-lying cec um. Grade 1 anterolisthesis L4 on L5. Disc osteophyte complex with moderate central canal stenosis L3 -4. Severe central canal stenosis L4-5. Postoperative changes LEFT femur.Advanced arthritis LEFT hip with subchondral cystic change and kmfl-dr-zutl articulation. IMPRESSION: 1. Diffuse body wall anasarca. 2. No evidence of drainable abscess or fluid collection 3. Garber catheter. 4. Severe central canal stenosis L4-5. 5. No evidence of LEFT hip abscess or fluid collection. 6. Postoperative changes LEFT femur. 7. Advanced arthritis LEFT hip with subchondral cystic change and lxvs-hv-zhul articulation.
--- NOTE | 2023-10-29 13:44 | CT_ITS ---
WS: [id number] INDICATION: Evaluate for abscess. TECHNIQUE: Contrast-enhanced CT of the RIGHT lower extremity with coronal and sagittal reformatted im ages. FINDINGS: Prior postoperative changes ooezl-foz-wxeb amputation in the mid femoral shaft. Advanced de generative arthritis RIGHT hip. Osteopenia. Diffuse body wall anasarca. No evidence of osteomyelitis. No evidence of drainable abscess or fluid collection. Cellulitis and edema involving the distal stum p. Small ovoid lymph node or venous varix distal stump a Vascular calcification. A few reactive RIGHT inguinal lymph nodes. IMPRESSION 1. No evidence of drainable abscess or fluid collection. 2. Evidence of soft tissue cellulitis distal stump. 3. No evidence of osteomyelitis.
[2023-10-29] MEDS: iohexol 350 mg/mL 500 mL Btl (per mL) IV (15:00)
--- NOTE | 2023-10-29 15:30 | PC.NURSE ---
Pt completed CT of pelvis and leg.
[2023-10-29] MEDS: gabapentin 100 mg Capsule PO (17:22)
[2023-10-29 17:43] LABS: Glucose Point of Care 122 mg/dL (70-110)
[2023-10-29] MEDS: iron sucrose 200 MG in sodium chloride 0.9% (100 ml) 100 ML 220 MG IV (17:43)
[2023-10-29] MEDS: fluconazole premix 400 MG/200 ML PIGGYBACK 200 MG IV (20:20)
[2023-10-29 21:44] LABS: Glucose Point of Care 111 mg/dL (70-110)
[2023-10-30] VITALS (26 sets, daily range): BP systolic 92–143; BP diastolic 55–86; PULSE 74–96; RESP 14–27; TEMP 36.3–37.2; O2SAT 93–97
[2023-10-30 01:34] LABS: Glucose Point of Care 133 mg/dL (70-110)
[2023-10-30] MEDS: vancomycin 1,250 MG/250 ML PIGGYBACK 250 MG IV ×2 (03:10→15:43)
[2023-10-30 04:34] LABS: Basophils # 0.1 10^3/uL (0.0-0.1); Basophils % 0.4 %; Eosinophils # 0.2 10^3/uL (0.0-0.8); Eosinophils % 1.3 %; Hematocrit 31.4 % (36-47); Lymphocytes % 7.1 %; Mean Corpuscular HGB Conc 28.3 g/dL (30-55); Mean Corpuscular Hemoglobin 26.1 pg (27-33); Mean Corpuscular Volume 92.1 fl (85-98); Mean Platelet Volume 9.7 fL (7.4-10.4); Monocytes # 1.2 10^3/uL (0.2-0.9); Monocytes % 8.5 %; Neutrophils # 10.62 10^3/uL (1.8-7.7); Nucleated Red Blood Cells % 0 %; Platelet Count 321 10^3/cmm (157-399); Red Blood Count 3.41 10^6/uL (3.85-5.65); Red Cell Distribution Width 21.2 % (12.1-15.1)
[2023-10-30 04:54] LABS: Magnesium 1.9 mg/dL (1.7-2.3)
[2023-10-30 05:00] LABS: Alanine Aminotransferase 8 U/L (0-33); Albumin Level 2.3 g/dL (3.5-5.2); Alkaline Phosphatase 123 U/L (35-105); Anion Gap 10.9 (5-19); Aspartate Amino Transferase 12 U/L (0-32); Blood Urea Nitrogen 5 mg/dL (8-23); Calcium 8.3 mg/dL (8.5-10.5); Carbon Dioxide 28 mmol/L (22-29); Chloride 108 mmol/L (98-107); Globulin 3.4 g/dL (1.3-4.6); Glomerular Filtration Rate 224.7 mL/min (90-130); Glucose 124 mg/dL (65-115); Osmolality Calculated 295 mOsm/kg (285-295); Potassium 3.9 mmol/L (3.5-5.1); Sodium 143 mmol/L (136-145); Total Bilirubin 1.2 mg/dL (0.15-1.2); Total Protein 5.7 g/dL (6.6-8.7)
[2023-10-30 06:00] LABS: Glucose Point of Care 111 mg/dL (70-110)
[2023-10-30 07:27] LABS: Glucose Point of Care 145 mg/dL (70-110)
[2023-10-30] MEDS: budesonide 0.5 mg/2 mL Neb INHALATION ×2 (07:55→21:13)
[2023-10-30] MEDS: venlafaxine ER (24HR) 75 mg Capsule PO (08:29)
[2023-10-30] MEDS: pantoprazole DR 40 mg Tablet PO ×2 (08:29→17:45)
[2023-10-30] MEDS: nystatin powder 15 gm Btl 1 APPLIC TOPICAL ×3 (08:29→20:55)
[2023-10-30] MEDS: piperacillin-tazobactam 3.375 GM in sodium chloride 0.9% (plus) 50 ML IV ×3 (08:29→22:50)
[2023-10-30] MEDS: gabapentin 100 mg Capsule PO (08:29)
[2023-10-30] MEDS: enoxaparin 80 mg/0.8 mL Syringe SUBCUT ×2 (10:57→22:11)
[2023-10-30 12:31] LABS: Glucose Point of Care 136 mg/dL (70-110)
[2023-10-30] MEDS: iron sucrose 200 MG in sodium chloride 0.9% (100 ml) 100 ML 220 MG IV (13:04)
[2023-10-30] MEDS: dextrose 5%-sod chloride 0.9% 1,000 ML 75 ML IV (13:06)
[2023-10-30] MEDS: HYDROcodone-acetaminophen 5-325 mg Tablet 1 TAB PO ×2 (13:12→22:10)
--- NOTE | 2023-10-30 14:42 | PC.SOCIAL ---
IMM Update pg 2 of IMM updated and reviewed w/ patient. Copy provided and copy dated, initialed and placed in chart.
--- NOTE | 2023-10-30 15:55 | PC.NURSE ---
Report clled to [facility] for room 259-2. Report given to Sandra.
--- NOTE | 2023-10-30 15:57 | PM.MISC ---
Miscellaneous Note Purpose of Documentation: I have conferred with my colleague Dr. Pineda by phone. Results of pelvis and right lower extremity CT scans are noted. Patient is now alert and does not wish to consider amputation at this time. However, if amputation is reconsidered for the left lower extremity, I would recommend consideration for an above-knee amputation as I feel contracture of the left knee would result in further wounding to a BKA amputation. Orthopedic hardware can be transected if amputation is subsequently entertained.
--- NOTE | 2023-10-30 16:00 | PC.NURSE ---
Pt's rings retrieved from ICU pyxis, for transfer.
--- NOTE | 2023-10-30 16:15 | PC.NURSE ---
Pt transferred to room 259-2 via bed. All her personal belongings with her. ( Clothing, 3 rings in a bio bag, necklaces and earrings in a denture cup.) Further update given to LEDY Flores. Srai specifically showed and identified with Sandra.
[2023-10-30 16:50] LABS: Glucose Point of Care 143 mg/dL (70-110)
--- NOTE | 2023-10-30 16:52 | PM.PN ---
Subjective Subjective: No acute events overnight. Today morning on examination patient is a lot more awake and alert. Able to complete conversation. Able to give her history by herself. Denies any nausea, vomiting. Morning for pain in lower limb. States she is associated with methadone clinic though not able to go frequently because of back transportation. On the day she is not able to go she endorses using amphetamines. She states she uses amphetamines once or twice a day at least 4-5 times a week. Patient has remained hemodynamically stable and afebrile. Off pressors. On minimal oxygen supplementation. Vitals/I&O/Wt Last Vital Signs Temp 97.9 F 10/30/23 16:33 Pulse 74 10/30/23 16:33 Resp 18 10/30/23 16:33 BP 127/64 10/30/23 16:33 Pulse Ox 93 10/30/23 16:33 O2 Del Method Nasal Cannula 10/30/23 16:33 O2 Flow Rate 2 10/30/23 15:00 10/30/23 10/30/23 10/30/23 06:59 14:59 22:59 Intake Total 300 / 1770.00 1100 / 1100 Output Total 850 / 1850 Balance -550 / -80.00 1100 / 1100 Weight last 48 hrs Weight 93.44 kg Weight 93.44 kg Weight 91.626 kg Physical Exam Const: COMMON NORMALS: patient oriented x3 and alert GENERAL APPEARANCE: cooperative HENMT: COMMON NORMALS: oropharynx normal Neck/C-Spine: COMMON NORMALS: no JVD Resp: COMMON NORMALS: normal respiratory effort and clear to auscultation bilaterally AUSCULTATION: clear to auscultation bilaterally Cardio: COMMON NORMALS: no JVD, regular rhythm, S1 normal heart sound present, S2 normal heart sound present and No murmurs present (Cardio) RHYTHM: regular rhythm HEART SOUNDS: S1 normal heart sound present and S2 normal heart sound present GI: COMMON NORMALS: Normal to inspection, nondistended, normoactive bowel sounds present, Soft to palpation and non-tender PALPATION: Yes Soft to palpation Extremity: COMMON NORMALS: no joint enlargement and no pedal edema NARRATIVE EXTREMITY EXAM: Right AKA There is some crepitus on movement of the left hip. Neuro: COMMON NORMALS: patient oriented x3 and moves all extremities SENSORIUM/ORIENTATION: Yes alert Skin: NARRATIVE SKIN EXAM: Erythema with crepitus on the right stump, left leg showing decreased area of cellulitis Additionally intertrigo with yeast odor under pannus, groin. I do not appreciate cellulitis extending into the groin. Blood-filled blister/clot/eschar 1 cm byx 4 mm on dorsal surface of the L third toe. Urinary Catheter Management: Garber: Cath Placed During This Visit: yes Reason for Continuing Indwelling Catheter: Accurate Measurement of Urinary Output in Critically Ill Patients Urinary Catheter Date of Insertion: 10/26/23 Urinary Catheter Time of Insertion: 16:05 Data 10/30/23 04:00 10/30/23 04:00 Micro: Microbiology 10/26/23 14:48 Gram Stain - Final Leg - #1 Wound Culture - Final Pseudomonas aeruginosa Group g streptococcus A&P Assessment and plan (1) Sepsis: Shock seems to have resolved. Keep mean artery pressure 65. Continue with IV hydration at current rate. Strict input and output charting, daily weights. Qualifiers: Sepsis acute organ dysfunction status: with acute organ dysfunction Sepsis type: sepsis due to unspecified organism Severe sepsis acute organ dysfunction type: unspecified Severe sepsis shock status: with septic shock Qualified Code(s): A41.9 - Sepsis, unspecified organism; R65.21 - Severe sepsis with septic shock (2) Cellulitis: Appreciate CT of left leg, ultrasound of the right stump. Appreciate surgical recommendations of examination negative for necrotizing fasciitis. Wound culture growing Pseudomonas and Streptococcus. Continue with current antibiotics as per culture sensitivities. History of being MRSA positive in the past. Follow-up blood culture. So far negative. MRI could not be done because of left leg being locked and not able to straighten because of which patient was not able to fit inside the machine. Appreciate podiatry recommendations. Wound care on the left leg as per podiatry. Appreciate Dr. Castillo's recommendation. Appreciate CT pelvis and CT stump. Negative for any collection or osteomyelitis. Continue wound care as per podiatry. Discussed in detail with patient today that there is a high chance patient would need amputation of the left leg because of high risk of infection and continued pain because of contractures. Patient verbalizes understanding but wants to hold off for now. Dr. Castillo recommends patient to have AKA whenever she is more agreeable regarding BKA given knee contractures. Continue with Diflucan for intertrigo. Finish 7-day course. (3) AMS (altered mental status): Most likely in setting of sepsis, polypharmacy with pain and anxiety medications along with hyponatremia on admission. Hyponatremia has resolved. Most likely in setting of polypharmacy. On further review with pharmacy it seems patient gets methadone through [facility]. Patient has not been able to go to [facility] regularly. Hold off on any further methadone. Admission positive for amphetamines. Patient endorses using amphetamines once or twice a day at least 4-5 times a week. Increase gabapentin to 200 mg twice daily, continue with decreased dose of venlafaxine at 75 mg daily, continue diazepam 5 mg every 12 as needed. Hold off on methadone. Start on [place] 5 mg every 6 hours as needed. (4) Hypoglycemia: Resolved. Most likely in setting of severe sepsis. Continue with D5 NS which should also help with hyponatremia. Hypoglycemia protocol. (5) Diabetes mellitus, type II: Accu-Cheks requested, sliding scale insulin. Complicated by diabetic neuropathy. (6) Acute hyponatremia: Resolved for now. Monitor BMP daily. (7) Intertrigo: Diflucan. Nystatin powder. Plan lower extremity wounds: Continue wound care. Wound care consultation if possible on Mon. Iron deficiency anemia: Patient malnourished as well as patient is not able to have oral intake given altered mental status. Continue with IV iron to finish a 5-day course. Last dose on 11/01. History of PE: On anticoagulation with Eliquis. Lovenox here for now. COPD: Currently not in exacerbation, not normally on oxygen. HTN: Hold antihypertensive HLD Venous stasis ulcers and diabetic wounds: Follows with wound care. Diastolic CHF: Currently does not appear in exacerbation Anemia History of substance use disorder: On methadone, supposed to be on methadone. Does not go to methadone clinic because of transportation. Twzuqgf-Nvfzh-Boymt deformity Lumbar radiculopathy Other medical problems Full status: Full code. Discussed in detail with patient. She would want her life partner doing to make medical decisions for her going forward. Patient is AOx3. Will request case management for DPOA paperwork. Patient wants to remain full code. Declining AKA for now. Started mechanical soft diet Full dose Lovenox will suffice DVT prophylaxis Protonix for PUD prophylaxis Transfer to [facility] floor. Attestations Medical Necessity Statement*: Requires further hospitalization for management of right stump cellulitis, left lower limb ulcer in a patient with improving mental status in setting of amphetamine abuse and polypharmacy Diagnoses Sepsis A41.9; R65.21 Sepsis acute organ dysfunction status: with acute organ dysfunction Sepsis type: sepsis due to unspecified organism Severe sepsis acute organ dysfunction type: unspecified Severe sepsis shock status: with septic shock Cellulitis L03.90 AMS (altered mental status) R41.82 Hypoglycemia E16.2 Type 2 diabetes mellitus with other diabetic arthropathy, 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 Acute hyponatremia E87.1 Intertrigo L30.4
[2023-10-30] MEDS: morphine 4 mg/mL SDV 1 mL 1 MG IVP (17:49)
[2023-10-30] MEDS: fluconazole premix 400 MG/200 ML PIGGYBACK 200 MG IV (19:59)
[2023-10-30 20:33] LABS: Glucose Point of Care 121 mg/dL (70-110)
[2023-10-30] MEDS: gabapentin 100 mg Capsule 200 MG PO (20:55)
[2023-10-31] VITALS (22 sets, daily range): BP systolic 138–169; BP diastolic 68–100; PULSE 73–104; RESP 9–25; TEMP 36.4–37.7; O2SAT 91–98
[2023-10-31 00:47] LABS: Glucose Point of Care 125 mg/dL (70-110)
[2023-10-31] MEDS: albuterol 2.5 mg/3 mL Neb INHALATION ×2 (01:41→20:07)
[2023-10-31 02:51] LABS: Basophils # 0.1 10^3/uL (0.0-0.1); Basophils % 0.5 %; Eosinophils # 0.1 10^3/uL (0.0-0.8); Eosinophils % 1.1 %; Hematocrit 30.1 % (36-47); Lymphocytes % 8.9 %; Mean Corpuscular HGB Conc 28.9 g/dL (30-55); Mean Corpuscular Hemoglobin 26.3 pg (27-33); Mean Corpuscular Volume 90.9 fl (85-98); Mean Platelet Volume 9.4 fL (7.4-10.4); Monocytes % 8.7 %; Neutrophils # 8.49 10^3/uL (1.8-7.7); Neutrophils % 76.9 %; Nucleated Red Blood Cells % 0 %; Platelet Count 308 10^3/cmm (157-399); Red Blood Count 3.31 10^6/uL (3.85-5.65); Red Cell Distribution Width 21.1 % (12.1-15.1); White Blood Count 11.03 10^3/uL (3.29-11.43)
[2023-10-31 03:12] LABS: Alanine Aminotransferase 11 U/L (0-33); Albumin Level 2.5 g/dL (3.5-5.2); Alkaline Phosphatase 116 U/L (35-105); Anion Gap 11.8 (5-19); Aspartate Amino Transferase 21 U/L (0-32); Blood Urea Nitrogen 4 mg/dL (8-23); Calcium 8.1 mg/dL (8.5-10.5); Carbon Dioxide 26 mmol/L (22-29); Chloride 108 mmol/L (98-107); Globulin 2.8 g/dL (1.3-4.6); Glomerular Filtration Rate 358.7 mL/min (90-130); Glucose 123 mg/dL (65-115); Magnesium 1.7 mg/dL (1.7-2.3); Osmolality Calculated 292 mOsm/kg (285-295); Potassium 3.8 mmol/L (3.5-5.1); Sodium 142 mmol/L (136-145); Total Bilirubin 1.9 mg/dL (0.15-1.2); Total Protein 5.3 g/dL (6.6-8.7)
[2023-10-31 03:13] LABS: Vancomycin Trough 14.5 ug/mL (10-15)
[2023-10-31] MEDS: vancomycin 1,250 MG/250 ML PIGGYBACK 250 MG IV ×2 (03:51→15:28)
[2023-10-31] MEDS: dextrose 5%-sod chloride 0.9% 1,000 ML 75 ML IV (04:16)
[2023-10-31] MEDS: piperacillin-tazobactam 3.375 GM in sodium chloride 0.9% (plus) 50 ML IV ×3 (06:29→22:43)
[2023-10-31] MEDS: HYDROcodone-acetaminophen 5-325 mg Tablet 1 TAB PO (06:29)
[2023-10-31] MEDS: budesonide 0.5 mg/2 mL Neb INHALATION ×2 (07:32→20:07)
[2023-10-31 09:28] LABS: Glucose Point of Care 153 mg/dL (70-110)
[2023-10-31] MEDS: gabapentin 100 mg Capsule 200 MG PO ×2 (10:00→15:28)
[2023-10-31] MEDS: nystatin powder 15 gm Btl 1 APPLIC TOPICAL ×3 (10:00→22:25)
[2023-10-31] MEDS: venlafaxine ER (24HR) 75 mg Capsule PO (10:00)
[2023-10-31] MEDS: pantoprazole DR 40 mg Tablet PO ×2 (10:00→18:41)
--- NOTE | 2023-10-31 10:23 | PC.NURSE ---
No insulin given this am. Was not checked until 09. Patient has not eaten anything. Dr. Pineda made aware.
[2023-10-31] MEDS: FUROsemide 10 mg/mL SDV 4mL 40 MG IVP (10:33)
[2023-10-31] MEDS: enoxaparin 80 mg/0.8 mL Syringe SUBCUT ×2 (10:34→22:47)
[2023-10-31 12:18] LABS: Glucose Point of Care 164 mg/dL (70-110)
--- NOTE | 2023-10-31 12:27 | PC.NURSE ---
Dr. Pineda in patients room and gave verbal orders to turn fluids off.
[2023-10-31] MEDS: insulin lispro 100 unit/1 mL SUBCUT (12:31)
[2023-10-31] MEDS: iron sucrose 200 MG in sodium chloride 0.9% (100 ml) 100 ML 220 MG IV (12:37)
--- NOTE | 2023-10-31 15:22 | P.PN_ITS ---
Subjective 2 Subjective: Patient is a lot more awake and alert today. Able to have complete conversation. States pain is well-controlled. Patient has not had much to eat as she states she requires assistance in eating as she is not able to set at the edge of the bed. We discussed that we will help her to sit at the edge of the bed so that she can feed herself. Also discussed that she is unable to do so then we might have to look for rehabitation so that she can get back to her baseline. Patient states he would like to try to set up and eat by herself. Hemodynamically has remained stable. Blood work appreciated. Vitals/I&O/Wt Last Vital Signs Temp 97.7 F 10/31/23 11:32 Pulse 89 10/31/23 11:32 Resp 15 10/31/23 11:32 BP 169/99 10/31/23 11:32 Pulse Ox 93 10/31/23 11:32 O2 Del Method Nasal Cannula 10/31/23 11:32 O2 Flow Rate 3 10/31/23 11:32 10/31/23 10/31/23 10/31/23 06:59 14:59 22:59 Intake Total 1300 / 3360 Output Total 500 / 1150 1999 / 1999 Balance 800 / 2210 -1999 / -1999 Weight last 48 hrs Weight 96.729 kg Weight 93.44 kg Weight 93.44 kg Physical Exam 2 Const: COMMON NORMALS: patient oriented x3 and alert GENERAL APPEARANCE: c ooperative OTHER: Somnolent. HENMT: COMMON NORMALS: oropharynx normal Neck/C-Spine: COMMON NORMALS: no JVD Resp: COMMON NORMALS: normal respiratory effort and clear to auscultation bilaterally AUSCULTATION: clear to auscultation bilaterally Cardio: COMMON NORMALS: no JVD, regular rhythm, S1 normal heart sound present, S2 normal heart sound present and No murmurs present (Cardio) RHYTHM: regular rhythm HEART SOUNDS: S1 normal heart sound present and S2 normal heart sound present GI: COMMON NORMALS: Normal to inspection, nondistended, normoactive bowel sounds present, Soft to palpation and non-tender PALPATION: Yes Soft to palpation Extremity: COMMON NORMALS: no joint enlargement and no pedal edema N ARRATIVE EXTREMITY EXAM: Right AKA There is some crepitus on movement of the left hip. Left leg contracted at the hip and knee Neuro: COMMON NORMALS: patient oriented x3 and moves all extremities S ENSORIUM/ORIENTATION: Yes alert Skin: NARRATIVE SKIN EXAM: Erythema with crepitus on the right stump, left leg showing decreased area of cellulitis Additionally intertrigo with yeast odor under pannus, groin. I do not appreciate cellulitis extending into the groin. Blood-filled blister/clot/eschar 1 cm byx 4 mm on dorsal surface of the L third toe. Urinary Catheter Management: Garber: Cath Placed During This Visit: yes Reason for Continuing Indwelling Catheter: Other Urinary Catheter Date of Insertion: 10/26/23 Urinary Catheter Time of Insertion: 16:05 Data 10/31/23 02:36 10/31/23 02:36 Micro: Microbiology 10/26/23 14:51 Blood Culture - Final Blood NO GROWTH AFTER 5 DAYS 10/26/23 14:48 Blood Culture - Final Blood NO GROWTH AFTER 5 DAYS A&P Assessment and plan (1) Sepsis: Shock seems to have resolved. Keep mean artery pressure 65. Continue with IV hydration at current rate. Strict input and output charting, daily weights. Qualifiers: Sepsis acute organ dysfunction status: with acute organ dysfunction S epsis type: sepsis due to unspecified organism Severe sepsis acute organ dysfunction type: unspecified Severe sepsis shock status: with septic shock Qualified Code(s): A41.9 - Sepsis, unspecified organism; R65.21 - Severe sepsis with septic shock (2) Cellulitis: Appreciate CT of left leg, ultrasound of the right stump. Appreciate surgical recommendations of examination negative for necrotizing fasciitis. Wound culture growing Pseudomonas and Streptococcus. Continue with current antibiotics as per culture sensitivities. History of being MRSA positive in the past. Follow-up blood culture. So far negative. MRI could not be done because of left leg being locked and not able to straighten because of which patient was not able to fit inside the machine. Appreciate podiatry recommendations. Wound care on the left leg as per podiatry. Appreciate Dr. Castillo's recommendation. Appreciate CT pelvis and CT stump. Negative for any collection or osteomyelitis. Continue wound care as per podiatry. Discussed in detail with patient today that there is a high chance patient would need amputation of the left leg because of high risk of infection and continued pain because of contractures. Patient verbalizes understanding but wants to hold off for now. Dr. Castillo recommends patient to have AKA whenever she is more agreeable regarding BKA given knee contractures. Continue with Diflucan for intertrigo. Finish 7-day course. (3) AMS (altered mental status): Most likely in setting of sepsis, polypharmacy with pain and anxiety medications along with hyponatremia on admission. Hyponatremia has resolved. Most likely in setting of polypharmacy. On further review with pharmacy it seems patient gets methadone through [facility]. Patient has not been able to go to [facility] regularly. Hold off on any further methadone. Admission positive for amphetamines. Patient endorses using amphetamines once or twice a day at least 4-5 times a week. Increase gabapentin to 200 mg twice daily, continue with decreased dose of venlafaxine at 75 mg daily, continue diazepam 5 mg every 12 as needed. Hold off on methadone. Start on [place] 5 mg every 6 hours as needed. (4) Hypoglycemia: Resolved. Most likely in setting of severe sepsis. Continue with D5 NS which should also help with hyponatremia. Hypoglycemia protocol. (5) Diabetes mellitus, type II: Accu-Cheks requested, sliding scale insulin. Complicated by diabetic neuropathy. (6) Acute hyponatremia: Resolved for now. Monitor BMP daily. (7) Intertrigo: Diflucan. Nystatin powder. Plan lower extremity wounds: Continue wound care. Wound care consultation if possible on Mon. Iron deficiency anemia: Patient malnourished as well as patient is not able to have oral intake given altered mental status. Continue with IV iron to finish a 5-day course. Last dose on 11/01. History of PE: On anticoagulation with Eliquis. Lovenox here for now. COPD: Currently not in exacerbation, not normally on oxygen. HTN: Hold antihypertensive HLD Venous stasis ulcers and diabetic wounds: Follows with wound care. Diastolic CHF: Currently does not appear in exacerbation Anemia History of substance use disorder: On methadone, supposed to be on methadone. Does not go to methadone clinic because of transportation. Vgkkucy-Zyarc-Sgdml deformity Lumbar radiculopathy Other medical problems Full status: Full code. Discussed in detail with patient. She would want her life partner doing to make medical decisions for her going forward. Patient is AOx3. Will request case management for DPOA paperwork. Patient wants to remain full code. Declining AKA for now. Started mechanical soft diet Full dose Lovenox will suffice DVT prophylaxis Protonix for PUD prophylaxis Plan for the day: Continue with current IV IV antibiotics with vancomycin and Zosyn. Leukocytosis has resolved. Patient will finish 5-day course of antibiotics today. For now we will continue. Will plan to transition to oral antibiotics on discharge to finish overall 10-day course. Wound care as per podiatry team. Continue with current dose of gabapentin 200 mg 3 times daily, Valium 5 mg every 12 as needed. Holding off on methadone. Continue with current dose of [place] every 6 as needed. Continue with current dose of Effexor 75 mg nightly. Physical therapy. DPOA paperwork completed. Patient's life partner is the DPOA going forward. Patient continues to improve will plan to discharge within next 24 hours. Attestations 2 Medical Necessity Statement*: Requires further hospitalization for management of resolving sepsis in setting of left leg cellulitis, right stump cellulitis in a patient with resolving altered mental status in setting of amphetamine abuse, polypharmacy Diagnoses Sepsis A41.9; R65.21 Sepsis acute organ dysfunction status: with acute organ dysfunction Sepsis type: sepsis due to unspecified organism Severe sepsis acute organ dysfunction type: unspecified Severe sepsis shock status: with septic shock Cellulitis L03.90 AMS (altered mental status) R41.82 Hypoglycemia E16.2 Type 2 diabetes mellitus with other diabetic arthropathy, 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 Acute hyponatremia E87.1 Intertrigo L30.4
[2023-10-31 16:57] LABS: Glucose Point of Care 100 mg/dL (70-110)
[2023-10-31] MEDS: amlodipine 5 mg Tablet PO (18:41)
[2023-10-31 19:22] LABS: Glucose Point of Care 117 mg/dL (70-110)
[2023-10-31 19:29] LABS: ABG PCO2 55.1 mmHg (35-45); ABG PH Result 7.36 (7.35-7.45); Alveolar-Arterial Oxygen Gradi 0.5 mmHg (5-10); Arterial Blood Gas Hematocrit 28.7 % (37-47); Base Excess ABG 4.9 mmol/L (-2.0-2.0); Blood Gas Allen Test Pos; Blood Gas Sample Site Radial, right; Blood Gas Sample Type Arterial; Carboxyhemoglobin 1.6 %THgb (0.4-20.1); HCO3 ABG 31.2 mmol/L (22-26); HGB O2 Sat 93.8 % (95-100); Ionized Calcium Level - ABG 1.1 mmol/L (1.1-1.4); Methemoglobin 0.7 % (0.4-1.5); Oxygen Device NC; Oxygen Saturation ABG 96.1; PO2 ABG 80.6 mmHg (80.0-100.0); Potassium Level - ABG 3.4 mmol/L (3.5-5.0); Total Hemoglobin 9.4 g/dL (12-16)
--- NOTE | 2023-10-31 19:38 | CTR_ITS ---
PROCEDURE INFORMATION: Exam: CT Head Without Contrast Exam date and time: 10/31/2023 8:41 PM Age: 63 years old Clinical indication: Altered mental status/memory loss; Confusion or disorientation; Prior surgery; Surgery date: 6+ months; Surgery type: Cervical/occipital fusion. Patient HX: New onset of lethargy with confusion. ; Additional info: SOB mental status change TECHNIQUE: Imaging protocol: Computed tomography of the head without contrast. Radiation optimization: All CT scans at this facility use at least one of these dose optimization techniques: automated exposure control; mA and/or kV adjustment per patient size (includes targeted exams where dose is matched to clinical indication); or iterative reconstruction. REPORTING DATA: Count of CT and Cardiac NM exams in prior 12 months: This patient has received 10 known [address]s and 0 known cardiac nuclear medicine studies in the 12 months prior to the current study. COMPARISON: CT head wo con* [id number] 06/13/2023 10:33 AM RADIATION DOSE METRICS: Total DLP (mGy-cm): 1973.68 FINDINGS: Limitations: The patient's head was malpositioned in the CT gantry. This creates significant hypodense artifact in the left hemisphere. Brain: Mild cortical volume loss. No intracranial hemorrhage. No abnormal brain attenuation. Cerebral ventricles: No ventriculomegaly. Paranasal sinuses: Visualized sinuses are unremarkable. No fluid levels. Mastoid air cells: Visualized mastoid air cells are well aerated. Bones/joints: Fusion hardware in the posterior cervical spine and occipital calvarium. Soft tissues: Unremarkable. CT/CT head wo con* [id number] IMPRESSION: 1. No acute intracranial abnormality identified. 2. Evaluation is limited by artifact in the left hemisphere.
--- NOTE | 2023-10-31 19:40 | XRR_ITS ---
PROCEDURE INFORMATION: Exam: XR Chest Exam date and time: 10/31/2023 10:43 PM Age: 63 years old Clinical indication: Shortness of breath; Additional info: SOB TECHNIQUE: Imaging protocol: Radiologic exam of the chest. Views: 1 view. COMPARISON: CR (CHEST, ) 10/26/2023 3:00 PM FINDINGS: Lungs: Interstitial opacities throughout both lungs. Mild atelectasis in the lung bases and left perihilar region. Pleural spaces: Unremarkable. No pleural effusion. No pneumothorax. Heart/Mediastinum: Unremarkable. No cardiomegaly. Diaphragm: Stable elevation of the right diaphragm. Bones/joints: Fusion hardware in the cervical and upper thoracic spine. Other findings: Shallow inspiration. XR/XR chest 1V portable [id number] IMPRESSION: 1. Suspect mild interstitial pulmonary edema.
[2023-10-31] MEDS: FUROsemide 10 mg/mL SDV 2mL 20 MG IVP (19:51)
--- NOTE | 2023-10-31 19:52 | PC.NURSE ---
Gave patient evening medications at 1841. Patient stated first and last name. Patient took medications well. Patient has been labored breathing since my shift started this am. Upon doing bedside report patient was difficult to arouse. This nurse tried to call Dr. Pineda but it was a little after 7. This nurse had the charge nurse come and look. Vitals were BP 145/74, 94% on 3 L, Pulse 94, respirations 22. Blood glucose was 17. Dr. Chang was notifed
--- NOTE | 2023-10-31 20:00 | W.PM.EVENTAC ---
Event Note Event Note: Was called by the nurse to evaluate the patient at bedside Patient was very fatigued and tired with increased work of breathing I requested stat ABG while I was going to see the patient By the time I entered the room her ABG came back with low normal pH with hypercapnia she has increased work of breathing I do believe she is decompensated considering tachypnea she should be in respiratory alkalotic range I have asked RT to put her on BiPAP Transfer to ICU On physical exam Patient has bilateral symmetrical pupils reactive to light Extremities look edematous She is able to squeeze my hand able to lift her hands on verbal command When I asked her if she has any chest pain she stated: No Her breathing is labored with positive crackles She was on 4 L nasal cannula Assessment and plan Stat chest x-ray, administer 20 mg of IV Lasix, request that CT head Her ABG showed blood glucose 115 mg/dL Will request serial troponin and EKG Event Notes Attestations Time Spent in Patient Care: 50
[2023-10-31 20:14] LABS: Glucose Point of Care 110 mg/dL (70-110)
--- NOTE | 2023-10-31 20:17 | PC.NURSE ---
Report called to Jessica in ICU at approximately 18:00.
[2023-10-31 21:02] LABS: Troponin(5th) Baseline 28 ng/L (0-10)
[2023-10-31] MEDS: lidocaine 1% 5 ML in potassium chloride premix 100 ML 25 ML IV (21:24)
[2023-10-31] MEDS: methylPREDNISolone sod succ 125 mg/2 mL INJ 60 MG IVP (21:27)
[2023-10-31] MEDS: fluconazole premix 400 MG/200 ML PIGGYBACK 200 MG IV (21:37)
[2023-10-31] MEDS: dextrose 50% syringe 50 mL 25 ML IVP (21:55)
--- NOTE | 2023-10-31 22:01 | PC.NURSE ---
Transfer to ICU 5- Pt arrived to ICU 5 @2049 via hospital bed and was transferred to an air mattress. Pt is lethargic, Pt opened eyes and squeezed fingers on command with a slight delay. AMS, pt was only able to tell us her name, no other orientation questions were answered. Pt is unable to safely swallow PO medications at this time. Dr. Chang made aware, new order to non-admin Fenofibrate Micronize 200mg, Gabaoentin 200mg, and metoprolol 25mg.
[2023-10-31 22:33] LABS: Troponin 5 2HR 32.67 ng/L (0-10); Troponin 5 2HR Delta 4.67 ABS# (0-10)
--- NOTE | 2023-10-31 22:44 | ECG_ITS ---
[facility] Test Date: 2023-10-31 Pat Name: Polina Snyder Department: Room: [facility] Gender: Female Feed Management Advisor: : 1960 Requested By: Alexander Chang Order Number: [id number] Reading MD: Venkata Monk M.D. Measurements Intervals [place] Rate: 84 P: 48 AR: 143 QRS: 26 QRSD: 95 T: 52 QT: 405 QTc: 482 Interpretive Statements SINUS RHYTHM NONSPECIFIC ST & T-WAVE ABNORMALITY Compared to ECG 07/17/2023 10:10:06 T-wave abnormality now present Electronically Signed On 11-01-2023 13:43:59 KINESEOLOGIST by Venkata Monk M.D. [id number]
[2023-11-01] VITALS (48 sets, daily range): BP systolic 116–191; BP diastolic 63–115; PULSE 54–101; RESP 13–37; TEMP 36.4–37.6; O2SAT 89–98
[2023-11-01 02:23] LABS: Basophils % 0.3 %; Eosinophils % 0.2 %; Hematocrit 30.8 % (36-47); Lymphocytes # 0.7 10^3/uL (0.8-4.8); Lymphocytes % 6.7 %; Mean Corpuscular HGB Conc 29.9 g/dL (30-55); Mean Corpuscular Hemoglobin 26.7 pg (27-33); Mean Corpuscular Volume 89.5 fl (85-98); Mean Platelet Volume 9.5 fL (7.4-10.4); Monocytes # 0.2 10^3/uL (0.2-0.9); Neutrophils % 87.6 %; Nucleated Red Blood Cells % 0 %; Platelet Count 325 10^3/cmm (157-399); Red Blood Count 3.44 10^6/uL (3.85-5.65); Red Cell Distribution Width 20.9 % (12.1-15.1); White Blood Count 10.15 10^3/uL (3.29-11.43)
[2023-11-01 02:42] LABS: Troponin 5 6HR 25.61 ng/L (0-10)
[2023-11-01 02:43] LABS: Troponin 5 6HR Delta -2.39 ng/L (0-12)
[2023-11-01 02:44] LABS: Alanine Aminotransferase 19 U/L (0-33); Albumin Level 2.7 g/dL (3.5-5.2); Alkaline Phosphatase 145 U/L (35-105); Blood Urea Nitrogen 4 mg/dL (8-23); Calcium 8.2 mg/dL (8.5-10.5); Carbon Dioxide 26 mmol/L (22-29); Chloride 102 mmol/L (98-107); Globulin 3.6 g/dL (1.3-4.6); Glomerular Filtration Rate 358.7 mL/min (90-130); Glucose 149 mg/dL (65-115); Osmolality Calculated 292 mOsm/kg (285-295); Sodium 141 mmol/L (136-145); Total Bilirubin 1.7 mg/dL (0.15-1.2); Total Protein 6.3 g/dL (6.6-8.7)
[2023-11-01 02:47] LABS: Anion Gap 17.3 (5-19); Aspartate Amino Transferase 37 U/L (0-32); Potassium 4.3 mmol/L (3.5-5.1)
[2023-11-01] MEDS: vancomycin 1,250 MG/250 ML PIGGYBACK 250 MG IV ×2 (04:02→15:50)
[2023-11-01] MEDS: budesonide 0.5 mg/2 mL Neb INHALATION ×2 (07:51→19:44)
[2023-11-01] MEDS: ipratropium-albuterol 3 mL Neb INHALATION (07:51)
[2023-11-01] MEDS: pantoprazole DR 40 mg Tablet PO ×2 (08:39→18:08)
[2023-11-01] MEDS: gabapentin 100 mg Capsule 200 MG PO (08:39)
[2023-11-01] MEDS: nystatin powder 15 gm Btl 1 APPLIC TOPICAL ×3 (08:39→20:13)
[2023-11-01] MEDS: metoprolol tartrate 25 mg Tablet PO (08:39)
[2023-11-01] MEDS: piperacillin-tazobactam 3.375 GM in sodium chloride 0.9% (plus) 50 ML IV ×3 (08:39→23:11)
[2023-11-01] MEDS: amlodipine 5 mg Tablet PO (08:39)
[2023-11-01] MEDS: venlafaxine ER (24HR) 75 mg Capsule PO (08:39)
[2023-11-01] MEDS: insulin lispro 100 unit/1 mL SUBCUT ×4 (08:40→20:25)
--- NOTE | 2023-11-01 09:19 | ECG_ITS ---
[facility] Test Date: 2023-11-01 Pat Name: Polina Snyder Department: Room: [facility] Gender: Female Cutter V Groove: : 1960 Requested By: Alexander Chang Order Number: [id number] Reading MD: Venkata Monk M.D. Measurements Intervals [place] Rate: 63 P: 34 [place]: 125 QRS: 43 QRSD: 104 T: 51 QT: 493 QTc: 507 Interpretive Statements SINUS RHYTHM MINIMAL ST DEPRESSION [0.025+ mV ST DEPRESSION] PROLONGED QT INTERVAL Compared to ECG 10/31/2023 22:44:04 ST (T wave) deviation now present Prolonged QT interval now present T-wave abnormality no longer present Electronically Signed On 11-01-2023 13:44:26 CONSTRUCTION GRIP by Venkata Monk M.D. [id number]
--- NOTE | 2023-11-01 09:23 | PC.SOCIAL ---
IMM Update pg 2 of IMM updated and reviewed w/ patient. Copy provided and copy dated, initialed and placed in chart.
--- NOTE | 2023-11-01 10:18 | US_ITS ---
WS: [id number] Exam: [place] liver [id number] Date/Time of Exam: 11/01/2023 10:25 AM Reason For Exam: Transaminitis, elevated bilirubin The liver is echodense suggesting hepatic steatosis. The gallbladder is unremarkable. No hepatic mass or intrahepatic ductal dilatation. The liver measures 18.2 cm in greatest dimension. The portal vein demonstrates hepatopetal flow. Common bile duct is not dilated and measures 4.[address]. Unremarkable RIGHT kidney. No mass or free fluid in the RIGHT abdomen. The pancreas is unremarka ble as visualized. IMPRESSION: 1. Echodense liver most likely indicating hepatic steatosis. No mass, biliary dilatation or other sig nificant finding.
[2023-11-01] MEDS: enoxaparin 80 mg/0.8 mL Syringe SUBCUT (11:25)
[2023-11-01 11:31] LABS: Gamma Glutamyl Transferase 98 U/L (5-36)
[2023-11-01 11:33] LABS: Glucose Point of Care 111 mg/dL (70-110)
[2023-11-01 11:39] LABS: Ammonia 63 umol/L (11-51)
[2023-11-01 11:42] LABS: Lactate Dehydrogenase 210 U/L (135-214)
[2023-11-01 11:49] LABS: Glucose Point of Care 141 mg/dL (70-110)
[2023-11-01 11:49] LABS: Glucose Point of Care 189 mg/dL (70-110)
[2023-11-01 11:49] LABS: Glucose Point of Care 172 mg/dL (70-110)
[2023-11-01 11:50] LABS: Hepatitis A Antibody IgM Non-Reactive (Nonreactive); Hepatitis B Core AB, Total Non-Reactive (Nonreactive); Hepatitis B Surface AB < 3.5 (11.5-1000); Hepatitis B Surface Antigen Non-Reactive (Nonreactive); Hepatitis C Virus Antibody Non-Reactive (Nonreactive)
[2023-11-01] MEDS: lactulose oral liq 20 gm/30 mL UDC PO ×2 (13:10→18:08)
--- NOTE | 2023-11-01 13:23 | P.PN_ITS ---
Subjective 2 Subjective: Overnight patient had altered mental status which was thought to be from hypercapnia. She was placed on BiPAP and transitioned over to ICU. In the morning today seen off BiPAP on nasal cannula. Patient is drowsy but awake and able to have conversation. He is alert and oriented to self and place and year. Denies any pain. Denies any nausea or vomiting. Blood was appreciated. Vitals/I&O/Wt Last Vital Signs Temp 98.6 F 11/01/23 07:30 Pulse 59 L 11/01/23 08:00 Resp 23 H 11/01/23 08:00 BP 191/100 11/01/23 08:00 Pulse Ox 93 11/01/23 08:00 O2 Del Method BiPAP 11/01/23 08:00 O2 Flow Rate 3 10/31/23 15:50 FiO2 40 11/01/23 08:00 10/31/23 11/01/23 11/01/23 22:59 06:59 14:59 Intake Total 1608 / 1658 405.000 / 2063.000 50 / 50 Output Total 2425 / 4425 500 / 4925 Balance -817 / -2767 -95.000 / -2862.000 50 / 50 Weight last 48 hrs Weight 93.44 kg Weight 96.729 kg Physical Exam 2 Const: COMMON NORMALS: patient oriented x3 and alert GENERAL APPEARANCE: c ooperative OTHER: Drowsy but able to answer questions appropriately HENMT: COMMON NORMALS: oropharynx normal Neck/C-Spine: COMMON NORMALS: no JVD Resp: COMMON NORMALS: normal respiratory effort and clear to auscultation bilaterally AUSCULTATION: clear to auscultation bilaterally Cardio: COMMON NORMALS: no JVD, regular rhythm, S1 normal heart sound present, S2 normal heart sound present and No murmurs present (Cardio) RHYTHM: regular rhythm HEART SOUNDS: S1 normal heart sound present and S2 normal heart sound present GI: COMMON NORMALS: Normal to inspection, nondistended, normoactive bowel sounds present, Soft to palpation and non-tender PALPATION: Yes Soft to palpation Extremity: COMMON NORMALS: no joint enlargement and no pedal edema N ARRATIVE EXTREMITY EXAM: Right AKA There is some crepitus on movement of the left hip. Left leg contracted at the hip and knee Neuro: COMMON NORMALS: patient oriented x3 and moves all extremities S ENSORIUM/ORIENTATION: Yes alert Skin: NARRATIVE SKIN EXAM: Erythema with crepitus on the right stump, left leg showing decreased area of cellulitis Additionally intertrigo with yeast odor under pannus, groin. I do not appreciate cellulitis extending into the groin. Blood-filled blister/clot/eschar 1 cm byx 4 mm on dorsal surface of the L third toe. Urinary Catheter Management: Garber: Cath Placed During This Visit: yes Reason for Continuing Indwelling Catheter: Accurate Measurement of Urinary Output in Critically Ill Patients Urinary Catheter Date of Insertion: 10/26/23 Urinary Catheter Time of Insertion: 16:05 Data 11/01/23 02:15 11/01/23 02:15 Micro: Microbiology 10/26/23 14:51 Blood Culture - Final Blood NO GROWTH AFTER 5 DAYS 10/26/23 14:48 Blood Culture - Final Blood NO GROWTH AFTER 5 DAYS A&P Assessment and plan (1) Sepsis: Shock seems to have resolved. Keep mean artery pressure 65. Continue with IV hydration at current rate. Strict input and output charting, daily weights. Qualifiers: Sepsis acute organ dysfunction status: with acute organ dysfunction S epsis type: sepsis due to unspecified organism Severe sepsis acute organ dysfunction type: unspecified Severe sepsis shock status: with septic shock Qualified Code(s): A41.9 - Sepsis, unspecified organism; R65.21 - Severe sepsis with septic shock (2) Cellulitis: Appreciate CT of left leg, ultrasound of the right stump. Appreciate surgical recommendations of examination negative for necrotizing fasciitis. Wound culture growing Pseudomonas and Streptococcus. Continue with current antibiotics as per culture sensitivities. History of being MRSA positive in the past. Follow-up blood culture. So far negative. MRI could not be done because of left leg being locked and not able to straighten because of which patient was not able to fit inside the machine. Appreciate podiatry recommendations. Wound care on the left leg as per podiatry. Appreciate Dr. Castillo's recommendation. Appreciate CT pelvis and CT stump. Negative for any collection or osteomyelitis. Continue wound care as per podiatry. Discussed in detail with patient today that there is a high chance patient would need amputation of the left leg because of high risk of infection and continued pain because of contractures. Patient verbalizes understanding but wants to hold off for now. Dr. Castillo recommends patient to have AKA whenever she is more agreeable regarding BKA given knee contractures. Continue with Diflucan for intertrigo. Finish 7-day course. (3) AMS (altered mental status): Most likely in setting of sepsis, polypharmacy with pain and anxiety medications along with hyponatremia on admission. Hyponatremia has resolved. Most likely in setting of polypharmacy. On further review with pharmacy it seems patient gets methadone through [facility]. Patient has not been able to go to [facility] regularly. Hold off on any further methadone. Admission positive for amphetamines. Patient endorses using amphetamines once or twice a day at least 4-5 times a week. Increase gabapentin to 200 mg twice daily, continue with decreased dose of venlafaxine at 75 mg daily, continue diazepam 5 mg every 12 as needed. Hold off on methadone. Start on [place] 5 mg every 6 hours as needed. (4) Hypoglycemia: Resolved. Most likely in setting of severe sepsis. Continue with D5 NS which should also help with hyponatremia. Hypoglycemia protocol. (5) Diabetes mellitus, type II: Accu-Cheks requested, sliding scale insulin. Complicated by diabetic neuropathy. (6) Acute hyponatremia: Resolved for now. Monitor BMP daily. (7) Intertrigo: Diflucan. Nystatin powder. Plan lower extremity wounds: Continue wound care. Wound care consultation if possible on Sat. Iron deficiency anemia: Patient malnourished as well as patient is not able to have oral intake given altered mental status. Continue with IV iron to finish a 5-day course. Last dose on 11/01. History of PE: On anticoagulation with Eliquis. Lovenox here for now. COPD: Currently not in exacerbation, not normally on oxygen. HTN: Hold antihypertensive HLD Venous stasis ulcers and diabetic wounds: Follows with wound care. Diastolic CHF: Currently does not appear in exacerbation Anemia History of substance use disorder: On methadone, supposed to be on methadone. Does not go to methadone clinic because of transportation. Zzbuazf-Vanic-Ywlgt deformity Lumbar radiculopathy Other medical problems Full status: Full code. Discussed in detail with patient. She would want her life partner doing to make medical decisions for her going forward. Patient is AOx3. Will request case management for DPOA paperwork. Patient wants to remain full code. Declining AKA for now. Started mechanical soft diet Full dose Lovenox will suffice DVT prophylaxis Protonix for PUD prophylaxis Plan for the day: Patient had redevelopment of altered mental status last night. Thought to be in setting of hypercapnia. Gabapentin dose was increased yesterday. Will cut it back down to 100 mg twice daily. Did not get lorazepam as needed dose. Did not get extra dose of [place]. For now we will continue the same at current dose along with venlafaxine. Speech evaluation. Patient does have mild worsening of transaminitis today along with elevation of bilirubin. Check LDH, GGT, liver ultrasound, ammonia level, hepatitis panel. If ammonia level is elevated will start on lactulose. Continue with IV antibiotics for overall 7 days. Keep patient in ICU. Blood pressure is elevated. Patient did have bradycardia after getting metoprolol. Hold off on metoprolol. Increase amlodipine to 10 mg daily. Add hydralazine 10 mg every 4 hours as needed for systolic blood pressure of more than 160 mmHg. 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
[2023-11-01] MEDS: HYDROcodone-acetaminophen 5-325 mg Tablet 1 TAB PO ×2 (14:02→20:14)
[2023-11-01] MEDS: iron sucrose 200 MG in sodium chloride 0.9% (100 ml) 100 ML 220 MG IV (14:05)
--- NOTE | 2023-11-01 14:42 | PC.SLP ---
Patient is sleeping at present and not available for MEDICAL IMAGING TECHNOLOGIST assessment. MEDICAL IMAGING TECHNOLOGIST will assess the patient tomorrow. Nurse reports good performance with oral consumption. No overt symptoms of aspiration noted or reported.
[2023-11-01 18:03] LABS: Glucose Point of Care 274 mg/dL (70-110)
--- NOTE | 2023-11-01 19:30 | PC.NURSE ---
Shift summary: Pt was using BiPap at beginning of shift. Pt alert and oriented. Pt switched to nasal cannula at breakfast time. NO respiratory issues this shift. Pt ate her meals well. No significant changes noted on her left heel wound or the cellulitis and ulcers on her left lower leg. She was complaining of constipation, but was able to have a large hard BM. Her Ammonia levels were elevated, at 63. SO she was started on Lactulose. She had 2 more BM that were copious liquid after Lactulose started. Weber cath output of 700 of dark yellow urine noted tis shift. Hydrocodone admin once this shift.
[2023-11-01] MEDS: fluconazole premix 400 MG/200 ML PIGGYBACK 200 MG IV (20:02)
[2023-11-01] MEDS: gabapentin 100 mg Capsule PO (20:13)
[2023-11-01] MEDS: diazePAM 5 mg Tablet PO (20:14)
[2023-11-01] MEDS: enoxaparin 100 mg/mL Syringe 90 MG SUBCUT (23:11)
--- NOTE | 2023-11-01 23:59 | PC.NURSE ---
Refused dose of lactulose, states It hurts to much when I have to be turned so much from pooping . I don't want this dose. Explained to patient that her ammonia level was elevated and this will help to decrease that. States maybe I will take the next dose .
[2023-11-02] VITALS (20 sets, daily range): BP systolic 105–168; BP diastolic 56–80; PULSE 45–86; RESP 15–29; TEMP 36.3–37.2; O2SAT 88–97
[2023-11-02] MEDS: vancomycin 1,250 MG/250 ML PIGGYBACK 250 MG IV ×2 (02:32→14:53)
[2023-11-02 03:36] LABS: Glucose Point of Care 138 mg/dL (70-110)
[2023-11-02] MEDS: HYDROcodone-acetaminophen 5-325 mg Tablet 1 TAB PO ×4 (04:36→23:38)
[2023-11-02 05:28] LABS: Ammonia 63 umol/L (11-51)
[2023-11-02 06:35] LABS: Basophils % 0.2 %; Eosinophils % 0.1 %; Lymphocytes # 1.4 10^3/uL (0.8-4.8); Lymphocytes % 9.6 %; Mean Corpuscular Hemoglobin 26.3 pg (27-33); Mean Corpuscular Volume 87.6 fl (85-98); Mean Platelet Volume 9.5 fL (7.4-10.4); Monocytes % 7.1 %; Neutrophils # 11.79 10^3/uL (1.8-7.7); Neutrophils % 80.1 %; Nucleated Red Blood Cells % 0 %; Platelet Count 323 10^3/cmm (157-399); Red Blood Count 3.31 10^6/uL (3.85-5.65); Red Cell Distribution Width 20.8 % (12.1-15.1)
[2023-11-02 06:40] LABS: Alanine Aminotransferase 25 U/L (0-33); Albumin Level 2.7 g/dL (3.5-5.2); Alkaline Phosphatase 159 U/L (35-105); Anion Gap 11.2 (5-19); Aspartate Amino Transferase 40 U/L (0-32); Blood Urea Nitrogen 10 mg/dL (8-23); Calcium 8.6 mg/dL (8.5-10.5); Carbon Dioxide 31 mmol/L (22-29); Chloride 100 mmol/L (98-107); Globulin 3.5 g/dL (1.3-4.6); Glomerular Filtration Rate 224.7 mL/min (90-130); Glucose 162 mg/dL (65-115); Osmolality Calculated 291 mOsm/kg (285-295); Potassium 3.2 mmol/L (3.5-5.1); Sodium 139 mmol/L (136-145); Total Bilirubin 0.9 mg/dL (0.15-1.2); Total Protein 6.2 g/dL (6.6-8.7)
[2023-11-02] MEDS: piperacillin-tazobactam 3.375 GM in sodium chloride 0.9% (plus) 50 ML IV ×2 (08:11→14:54)
[2023-11-02] MEDS: amlodipine 10 mg Tablet PO (08:14)
[2023-11-02] MEDS: gabapentin 100 mg Capsule PO ×3 (08:14→21:56)
[2023-11-02] MEDS: pantoprazole DR 40 mg Tablet PO ×2 (08:14→18:11)
[2023-11-02] MEDS: venlafaxine ER (24HR) 75 mg Capsule PO (08:14)
[2023-11-02] MEDS: nystatin powder 15 gm Btl 1 APPLIC TOPICAL ×4 (08:15→21:56)
[2023-11-02 08:33] LABS: Glucose Point of Care 227 mg/dL (70-110)
[2023-11-02 08:33] LABS: Glucose Point of Care 127 mg/dL (70-110)
[2023-11-02 11:00] LABS: Glucose Point of Care 208 mg/dL (70-110)
[2023-11-02] MEDS: enoxaparin 100 mg/mL Syringe 90 MG SUBCUT ×2 (11:37→23:38)
[2023-11-02] MEDS: insulin lispro 100 unit/1 mL SUBCUT ×3 (11:37→21:55)
[2023-11-02] MEDS: lactulose oral liq 20 gm/30 mL UDC PO ×2 (12:56→18:11)
[2023-11-02 15:26] LABS: Vancomycin Trough 14.5 ug/mL (10-15)
--- NOTE | 2023-11-02 16:16 | PC.NURSE ---
Report called to [facility] for bed 254. Report given to LEDY Gardner.
--- NOTE | 2023-11-02 16:20 | PC.NURSE ---
Jewelry: Pt's life partner, Scout Foley, taking pt's jewelry home. He is in possession of her jewelry at this time
--- NOTE | 2023-11-02 16:22 | PC.NURSE ---
Pt transferred to [facility] with her belongings. Scout Foley followed.
--- NOTE | 2023-11-02 16:34 | PM.PN ---
Subjective Subjective: No acute events overnight. Patient is a lot more awake and alert today morning. Able to feed herself sitting at edge of the bed. Able to have complete conversation. Denies any nausea or vomiting. Did have lactulose yesterday and had bowel movements. Refused lactulose earlier today morning. Is agreeable to take lactulose now. Vitals/I&O/Wt Last Vital Signs Temp 98.9 F 11/02/23 14:00 Pulse 69 11/02/23 15:00 Resp 20 H 11/02/23 15:00 BP 136/56 11/02/23 15:00 Pulse Ox 97 11/02/23 15:00 O2 Del Method Nasal Cannula 11/02/23 15:00 O2 Flow Rate 2 11/02/23 15:00 FiO2 40 11/01/23 08:00 11/02/23 11/02/23 11/02/23 06:59 14:59 22:59 Intake Total 550.0 / 1560.0 500 / 500 Output Total 450 / 1150 Balance 100.0 / 410.0 500 / 500 Weight last 48 hrs Weight 90.492 kg Weight 93.44 kg Physical Exam Const: COMMON NORMALS: patient oriented x3 and alert GENERAL APPEARANCE: cooperative OTHER: Awake and alert, not somnolent anymore. HENMT: COMMON NORMALS: oropharynx normal Neck/C-Spine: COMMON NORMALS: no JVD Resp: COMMON NORMALS: normal respiratory effort and clear to auscultation bilaterally AUSCULTATION: clear to auscultation bilaterally Cardio: COMMON NORMALS: no JVD, regular rhythm, S1 normal heart sound present, S2 normal heart sound present and No murmurs present (Cardio) RHYTHM: regular rhythm HEART SOUNDS: S1 normal heart sound present and S2 normal heart sound present GI: COMMON NORMALS: Normal to inspection, nondistended, normoactive bowel sounds present, Soft to palpation and non-tender PALPATION: Yes Soft to palpation Extremity: COMMON NORMALS: no joint enlargement and no pedal edema NARRATIVE EXTREMITY EXAM: Right AKA There is some crepitus on movement of the left hip. Left leg contracted at the hip and knee Neuro: COMMON NORMALS: patient oriented x3 and moves all extremities SENSORIUM/ORIENTATION: Yes alert Skin: NARRATIVE SKIN EXAM: Erythema with crepitus on the right stump, left leg showing decreased area of cellulitis Additionally intertrigo with yeast odor under pannus, groin. I do not appreciate cellulitis extending into the groin. Blood-filled blister/clot/eschar 1 cm byx 4 mm on dorsal surface of the L third toe. Urinary Catheter Management: Garber: Cath Placed During This Visit: yes Reason for Continuing Indwelling Catheter: Accurate Measurement of Urinary Output in Critically Ill Patients Urinary Catheter Date of Insertion: 10/26/23 Urinary Catheter Time of Insertion: 16:05 Data 11/02/23 04:43 11/02/23 04:43 A&P Assessment and plan (1) Sepsis: Shock seems to have resolved. Keep mean artery pressure 65. Continue with IV hydration at current rate. Strict input and output charting, daily weights. Qualifiers: Sepsis acute organ dysfunction status: with acute organ dysfunction Sepsis type: sepsis due to unspecified organism Severe sepsis acute organ dysfunction type: unspecified Severe sepsis shock status: with septic shock Qualified Code(s): A41.9 - Sepsis, unspecified organism; R65.21 - Severe sepsis with septic shock (2) Cellulitis: Appreciate CT of left leg, ultrasound of the right stump. Appreciate surgical recommendations of examination negative for necrotizing fasciitis. Wound culture growing Pseudomonas and Streptococcus. Continue with current antibiotics as per culture sensitivities. History of being MRSA positive in the past. Follow-up blood culture. So far negative. MRI could not be done because of left leg being locked and not able to straighten because of which patient was not able to fit inside the machine. Appreciate podiatry recommendations. Wound care on the left leg as per podiatry. Appreciate Dr. Castillo's recommendation. Appreciate CT pelvis and CT stump. Negative for any collection or osteomyelitis. Continue wound care as per podiatry. Discussed in detail with patient today that there is a high chance patient would need amputation of the left leg because of high risk of infection and continued pain because of contractures. Patient verbalizes understanding but wants to hold off for now. Dr. Castillo recommends patient to have AKA whenever she is more agreeable regarding BKA given knee contractures. Continue with Diflucan for intertrigo. Finish 7-day course. (3) AMS (altered mental status): Most likely in setting of sepsis, polypharmacy with pain and anxiety medications along with hyponatremia on admission. Hyponatremia has resolved. Most likely in setting of polypharmacy. On further review with pharmacy it seems patient gets methadone through [facility]. Patient has not been able to go to [facility] regularly. Hold off on any further methadone. Admission positive for amphetamines. Patient endorses using amphetamines once or twice a day at least 4-5 times a week. Increase gabapentin to 200 mg twice daily, continue with decreased dose of venlafaxine at 75 mg daily, continue diazepam 5 mg every 12 as needed. Hold off on methadone. Start on [place] 5 mg every 6 hours as needed. (4) Hypoglycemia: Resolved. Most likely in setting of severe sepsis. Continue with D5 NS which should also help with hyponatremia. Hypoglycemia protocol. (5) Diabetes mellitus, type II: Accu-Cheks requested, sliding scale insulin. Complicated by diabetic neuropathy. (6) Acute hyponatremia: Resolved for now. Monitor BMP daily. (7) Intertrigo: Diflucan. Nystatin powder. Plan lower extremity wounds: Continue wound care. Wound care consultation if possible on Mon. Iron deficiency anemia: Patient malnourished as well as patient is not able to have oral intake given altered mental status. Continue with IV iron to finish a 5-day course. Last dose on 11/01. History of PE: On anticoagulation with Eliquis. Lovenox here for now. COPD: Currently not in exacerbation, not normally on oxygen. HTN: Hold antihypertensive HLD Venous stasis ulcers and diabetic wounds: Follows with wound care. Diastolic CHF: Currently does not appear in exacerbation Anemia History of substance use disorder: On methadone, supposed to be on methadone. Does not go to methadone clinic because of transportation. [id number] deformity Lumbar radiculopathy Other medical problems Full status: Full code. Discussed in detail with patient. She would want her life partner doing to make medical decisions for her going forward. Patient is AOx3. Will request case management for DPOA paperwork. Patient wants to remain full code. Declining AKA for now. Started mechanical soft diet Full dose Lovenox will suffice DVT prophylaxis Protonix for PUD prophylaxis Plan for the day: Mentation back to baseline. Most likely in setting of hepatic encephalopathy. Improved with lactulose. Cannot rule out in setting of elevated gabapentin dose from 2 days ago. Continue with gabapentin 100 mg 3 times daily. Continue other medications including [place], Valium and venlafaxine as before. Lactulose 20 mg every 12 hourly. Patient is agreeable. Monitor CMP daily for now. If patient remains stable will likely discharge within next 24 hours to home. Patient is agreeable to stay. Continue with amlodipine 10 mg daily, hydralazine as needed. Transfer out of ICU to [facility]. Attestations Medical Necessity Statement*: Requires further hospitalization for management of altered mental status in setting of polypharmacy, hepatic encephalopathy in a patient with baseline meth and pain medication abuse, left foot cellulitis, right stump infection Diagnoses Sepsis A41.9; R65.21 Sepsis acute organ dysfunction status: with acute organ dysfunction Sepsis type: sepsis due to unspecified organism Severe sepsis acute organ dysfunction type: unspecified Severe sepsis shock status: with septic shock Cellulitis L03.90 AMS (altered mental status) R41.82 Hypoglycemia E16.2 Type 2 diabetes mellitus with other diabetic arthropathy, 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 Acute hyponatremia E87.1 Intertrigo L30.4
[2023-11-02 17:19] LABS: Glucose Point of Care 224 mg/dL (70-110)
[2023-11-02] MEDS: budesonide 0.5 mg/2 mL Neb INHALATION (20:37)
[2023-11-02 21:11] LABS: Glucose Point of Care 235 mg/dL (70-110)
[2023-11-03] VITALS (9 sets, daily range): BP systolic 151–166; BP diastolic 74–91; PULSE 69–95; RESP 17–20; TEMP 36.5–36.7; O2SAT 90–94
[2023-11-03 05:01] LABS: Basophils % 0.3 %; Eosinophils # 0.3 10^3/uL (0.0-0.8); Eosinophils % 2.3 %; Hematocrit 31.2 % (36-47); Lymphocytes # 1.9 10^3/uL (0.8-4.8); Lymphocytes % 18.1 %; Mean Corpuscular HGB Conc 29.8 g/dL (30-55); Mean Corpuscular Hemoglobin 26.5 pg (27-33); Mean Corpuscular Volume 88.9 fl (85-98); Mean Platelet Volume 9.5 fL (7.4-10.4); Monocytes # 0.8 10^3/uL (0.2-0.9); Neutrophils # 7.41 10^3/uL (1.8-7.7); Neutrophils % 69.3 %; Nucleated Red Blood Cells % 0 %; Platelet Count 313 10^3/cmm (157-399); Red Blood Count 3.51 10^6/uL (3.85-5.65); Red Cell Distribution Width 21.3 % (12.1-15.1)
[2023-11-03 05:21] LABS: Alanine Aminotransferase 22 U/L (0-33); Albumin Level 2.7 g/dL (3.5-5.2); Alkaline Phosphatase 152 U/L (35-105); Anion Gap 9.7 (5-19); Aspartate Amino Transferase 25 U/L (0-32); Blood Urea Nitrogen 7 mg/dL (8-23); Calcium 8.2 mg/dL (8.5-10.5); Carbon Dioxide 36 mmol/L (22-29); Chloride 102 mmol/L (98-107); Globulin 3.5 g/dL (1.3-4.6); Glomerular Filtration Rate 358.7 mL/min (90-130); Glucose 90 mg/dL (65-115); Osmolality Calculated 298 mOsm/kg (285-295); Sodium 145 mmol/L (136-145); Total Bilirubin 0.7 mg/dL (0.15-1.2); Total Protein 6.2 g/dL (6.6-8.7)
[2023-11-03 05:39] LABS: Potassium 2.7 mmol/L (3.5-5.1)
[2023-11-03 06:31] LABS: Glucose Point of Care 85 mg/dL (70-110)
[2023-11-03] MEDS: lactulose oral liq 20 gm/30 mL UDC PO (08:18)
[2023-11-03] MEDS: amlodipine 10 mg Tablet PO (08:19)
[2023-11-03] MEDS: venlafaxine ER (24HR) 75 mg Capsule PO (08:19)
[2023-11-03] MEDS: pantoprazole DR 40 mg Tablet PO (08:19)
[2023-11-03] MEDS: HYDROcodone-acetaminophen 5-325 mg Tablet 1 TAB PO ×2 (08:19→15:10)
[2023-11-03] MEDS: gabapentin 100 mg Capsule PO (08:19)
[2023-11-03] MEDS: nystatin powder 15 gm Btl 1 APPLIC TOPICAL (08:22)
[2023-11-03 10:56] LABS: Glucose Point of Care 159 mg/dL (70-110)
[2023-11-03] MEDS: insulin lispro 100 unit/1 mL SUBCUT (11:53)
[2023-11-03] MEDS: enoxaparin 100 mg/mL Syringe 90 MG SUBCUT (11:54)
[2023-11-03] MEDS: diazePAM 5 mg Tablet PO (11:54)
[2023-11-03] MEDS: potassium chloride ER 20 mEq Tablet 40 MEQ PO ×3 (11:54→15:10)
--- NOTE | 2023-11-03 12:44 | P.DS_ITS ---
Discharge Providers Date of Admission: 10/26/23 17:13 Date of Discharge: November 03, 2023 Attending Provider at Admission: Brian Mccauley Attending Provider at Discharge: Eduardo Pineda MD Primary Care Provider: Wilner Hdez DO Diagnoses at Discharge Discharge Diagnosis (1) Sepsis: Status: Acute Qualifiers: Sepsis acute organ dysfunction status: with acute organ dysfunction Sepsis type: sepsis due to unspecified organism Severe sepsis acute organ dysfunction type: unspecified Severe sepsis shock status: with septic shock Qualified Code(s): A41.9 - Sepsis, unspecified organism; R65.21 - Severe sepsis with septic shock (2) Cellulitis: Status: Acute (3) AMS (altered mental status): Status: Acute (4) Hypoglycemia: Status: Acute (5) Diabetes mellitus, type II: Status: Acute (6) Acute hyponatremia: Status: Acute (7) Intertrigo: Status: Acute Reason for Visit Reason for Visit: RIGHT LEG PAIN/REDNESS Brief History: History as per HPI: Pleasant 63-year-old lady came into ER for evaluation due to malaise, chills fever, cough several days, states did not have appetite, felt ill, could not eat. reportedly did have an episode of vomiting.No diarrhea. Was bothered by pain in her left foot. She has chronic wounds that she follows with wound care on her lower leg, lal, and feet, and her helps her with dressing changes at home. In ER she is noted with erythema of left lower leg, but also areas of erythema of the Lateral/posterior left thigh, buttock, as well as right thigh, stump. knee ER with leukocytosis 20,000, soft blood pressure, normal lactic acid, negative serum ketones, normal serum pH on ABG. She is normally nonambulatory. Gets around mostly in a wheelchair. She fell down out of her chair about 4 days ago onto her right side, states hurt for a bit afterward but no residual pain. Hospital Course Hospital Course Patient was admitted to the ICU for further evaluation and management of altered mental status. Thought to Be Secondary to Sepsis from Significant Cellulitis of the Left Leg and Right Stump Infection. Surgery Was Consulted and Necrotizing Fasciitis Was Ruled out. Patient Underwent various images which ruled out osteomyelitis and abscess. Orthopedic surgery and vascular surgery were also consulted who recommended patient to possibly have left AKA as well given long- term contractures. It is believed patient's altered mental status is most likely in setting of chronic amphetamine abuse along with polypharmacy. Patient's medications were adjusted and she came back to her baseline mentation. Patient stated she is supposed to go to methadone clinic but not able to go because of poor transportation hence uses amphetamines 4-5 times a week once or twice a day. Patient's altered mental status is also in setting of hepatic encephalopathy for which she required lactulose. She finished a course of IV antibiotics for cellulitis. Possibility of AKA was discussed in detail with the patient and she would want to hold off and would continue with wound care for now. She has been discharged hemodynamically stable condition with advised to follow- up with wound care clinic as an outpatient. She is to continue wound care as advised. Her dose of diazepam has been managed as needed, gabapentin has been reduced to 100 mg 3 times daily. She is counseled in detail to avoid amphetamines. She is advised in detail to follow-up at methadone clinic. Physical Exam Const: COMMON NORMALS: patient oriented x3 and alert GENERAL APPEARANCE: cooperative OTHER: Awake and alert, not somnolent anymore. HENMT: COMMON NORMALS: oropharynx normal Neck/C-Spine: COMMON NORMALS: no JVD Resp: COMMON NORMALS: normal respiratory effort and clear to auscultation bilaterally AUSCULTATION: clear to auscultation bilaterally Cardio: COMMON NORMALS: no JVD, regular rhythm, S1 normal heart sound present, S2 normal heart sound present and No murmurs present (Cardio) RHYTHM: regular rhythm HEART SOUNDS: S1 normal heart sound present and S2 normal heart sound present GI: COMMON NORMALS: Normal to inspection, nondistended, normoactive bowel sounds present, Soft to palpation and non-tender PALPATION: Yes Soft to pa lpation Extremity: COMMON NORMALS: no joint enlargement and no pedal edema NARRATIVE EXTREMITY EXAM: Right AKA There is some crepitus on movement of the left hip. Left leg contracted at the hip and knee Neuro: COMMON NORMALS: patient oriented x3 and moves all extremities SENSORIUM/ORIENTATION: Yes alert Skin: NARRATIVE SKIN EXAM: Erythema with crepitus on the right stump, left leg showing decreased area of cellulitis Additionally intertrigo with yeast odor under pannus, groin. I do not appreciate cellulitis extending into the groin. Blood-filled blister/clot/eschar 1 cm byx 4 mm on dorsal surface of the L third toe. Urinary Catheter Management: Garber: Cath Placed During This Visit: yes Reason for Continuing Indwelling Catheter: Acute Urinary Retention or Obstruction Urinary Catheter Date of Insertion: 10/26/23 Urinary Catheter Time of Insertion: 16:05 Discharge Data Studies Completed and Pending Completed Studies During Hospitalization Category Date Time Status CT head wo con* [id number] Stat Cat Scan 10/31/23 19:[address] lower leg LT w con [id number] Stat Cat Scan 10/26/23 15:[address] lower leg RT w con [id number] Routine Cat Scan 10/29/23 13:[address] pelvis w con* [id number] Routine Cat Scan 10/29/23 13:44 Completed XR chest 1V portable [id number] Stat Exams 10/26/23 14:29 Completed XR chest 1V portable [id number] Stat Exams 10/31/23 19:40 [place] liver [id number] Routine Ultrasound 11/01/23 10:18 Completed US soft tissue/extremity [id number] Routine Ultrasound 10/28/23 23:35 Completed Radiology Impressions Head CT 10/31/23 19:38 IMPRESSION: 1. No acute intracranial abnormality identified. 2. Evaluation is limited by artifact in the left hemisphere. Chest X-Ray 10/31/23 19:40 IMPRESSION: 1. Suspect mild interstitial pulmonary edema. Laboratory Results WBC 10.70 10^3/uL (3.29-11.43) 11/03/23 04:17 RBC 3.51 10^6/uL (3.85-5.65) L 11/03/23 04:17 Hgb 9.30 g/dL (11.27-16.99) L 11/03/23 04:17 Hct 31.2 % (36-47) L 11/03/23 04:17 MCV 88.9 fl (85-98) 11/03/23 04:17 MCH 26.5 pg (27-33) L 11/03/23 04:17 MCHC 29.8 g/dL (30-55) L 11/03/23 04:17 RDW 21.3 % (12.1-15.1) H 11/03/23 04:17 Plt Count 313 10^3/cmm (157-399) 11/03/23 04:17 MPV 9.5 fL (7.4-10.4) 11/03/23 04:17 Neut % (Auto) 69.3 % 11/03/23 04:17 Lymph % (Auto) 18.1 % 11/03/23 04:17 [place] % (Auto) 7.0 % 11/03/23 04:17 Eos % (Auto) 2.3 % 11/03/23 04:17 Baso % (Auto) 0.3 % 11/03/23 04:17 Neut # (Auto) 7.41 10^3/uL (1.8-7.7) 11/03/23 04:17 Lymph # (Auto) 1.9 10^3/uL (0.8-4.8) 11/03/23 04:17 [place] # (Auto) 0.8 10^3/uL (0.2-0.9) 11/03/23 04:17 Eos # (Auto) 0.3 10^3/uL (0.0-0.8) 11/03/23 04:17 Baso # (Auto) 0.0 10^3/uL (0.0-0.1) 11/03/23 04:17 Nucleated RBC % (auto) 0 % 11/03/23 04:17 Nucleated RBCs # 0.0 /100WBC 11/03/23 04:17 ESR 107 mm/hr (0-15) H 10/26/23 14:00 PT 20.80 SECONDS (12.1-14.9) H 10/26/23 14:00 INR 1.73 (0.8-1.2) H 10/26/23 14:00 APTT 55.3 SECONDS (23.9-36.7) H 10/26/23 14:00 Specimen Type Arterial 10/31/23 19:18 Sample Site Radial, right 10/31/23 19:18 ABG pH 7.36 (7.35-7.45) 10/31/23 19:18 ABG pCO2 55.1 mmHg (35-45) H 10/31/23 19:18 ABG pO2 80.6 mmHg (80.0-100.0) 10/31/23 19:18 ABG PO2/FiO2 Ratio 0 10/26/23 15:00 ABG HCO3 31.2 mmol/L (22-26) H 10/31/23 19:18 ABG O2 Saturation 96.1 10/31/23 19:18 ABG Base Excess 4.9 mmol/L (-2.0-2.0) H 10/31/23 19:18 Abdoulaye Test Pos 10/31/23 19:18 A-a O2 Gradient 0.5 mmHg (5-10) L 10/31/23 19:18 Hematocrit 28.7 % (37-47) L 10/31/23 19:18 Hgb O2 Saturation 93.8 % (95-100) L 10/31/23 19:18 Carboxyhemoglobin 1.6 %THgb (0.4-20.1) 10/31/23 19:18 Methemoglobin 0.7 % (0.4-1.5) 10/31/23 19:18 Total Hemoglobin 9.4 g/dL (12-16) L 10/31/23 19:18 Sodium 144.0 mmol/L (131-143) H 10/31/23 19:18 Potassium 3.4 mmol/L (3.5-5.0) L 10/31/23 19:18 Glucose 115.0 mg/dL (70-115) 10/31/23 19:18 Ionized Calcium 1.1 mmol/L (1.1-1.4) 10/31/23 19:18 O2 Delivery Device Nc 10/31/23 19:18 O2 Liters/Min 3.0 % 10/31/23 19:18 FiO2 21.0 % 10/26/23 15:00 Senior Trainer ID [email or web address] 10/31/23 19:18 Sodium 145 mmol/L (136-145) 11/03/23 04:17 Potassium 2.7 mmol/L (3.5-5.1) L* 11/03/23 04:17 Chloride 102 mmol/L (98-107) 11/03/23 04:17 Carbon Dioxide 36 mmol/L (22-29) H 11/03/23 04:17 Anion Gap 9.7 (5-19) 11/03/23 04:17 BUN 7 mg/dL (8-23) L 11/03/23 04:17 Creatinine 0.2 mg/dL (0.5-0.9) L 11/03/23 04:17 GFR Calculation 358.7 mL/min (90-130) H 11/03/23 04:17 Glucose 90 mg/dL (65-115) 11/03/23 04:17 POC Glucose 159 mg/dL (70-110) H 11/03/23 10:45 Calculated Osmolality 298 mOsm/kg (285-295) H 11/03/23 04:17 Lactic Acid 1.3 mmol/L (0.5-2.2) 10/26/23 14:48 Calcium 8.2 mg/dL (8.5-10.5) L 11/03/23 04:17 Phosphorus 2.5 mg/dL (2.5-4.5) 10/27/23 05:07 Magnesium 1.7 mg/dL (1.7-2.3) 10/31/23 02:36 Iron 15 ug/dL (37-145) L 10/28/23 03:56 TIBC 149 mcg/dl 10/28/23 03:56 % Saturation 10.0 % (20-50) L 10/28/23 03:56 Unsat Iron Binding 134 ug/dL (112-347) 10/28/23 03:56 Total Bilirubin 0.7 mg/dL (0.15-1.2) 11/03/23 04:17 GGT 98 U/L (5-36) H 11/01/23 02:15 AST 25 U/L (0-32) 11/03/23 04:17 ALT 22 U/L (0-33) 11/03/23 04:17 Alkaline Phosphatase 152 U/L (35-105) H 11/03/23 04:17 Ammonia 63 umol/L (11-51) H 11/02/23 04:43 Lactate Dehydrogenase 210 U/L (135-214) 11/01/23 02:15 Troponin T Baseline 28 ng/L (0-10) H 10/31/23 20:31 Troponin T 120 Minute 32.67 ng/L (0-10) H 10/31/23 22:11 Delta Troponin T 4.67 ABS# (0-10) 10/31/23 22:11 Troponin T Hi Sens 6Hr 25.61 ng/L (0-10) H 11/01/23 02:15 Troponin T Hi Sens 6Hr Delta -2.39 ng/L (0-12) L 11/01/23 02:15 C-Reactive Protein 293.0 mg/L (0.0-4.9) H 10/26/23 14:00 Total Protein 6.2 g/dL (6.6-8.7) L 11/03/23 04:17 Albumin 2.7 g/dL (3.5-5.2) L 11/03/23 04:17 Globulin 3.5 g/dL (1.3-4.6) 11/03/23 04:17 Vitamin B12 > 2000 pg/mL (232-1245) H 10/28/23 03:56 Folate 14.0 ng/mL (4.8-37.3) 10/29/23 04:19 Procalcitonin 1.16 ng/mL (0-0.5) H 10/26/23 14:00 Random Cortisol 37.44 ug/dL (2.47-19.5) H 10/26/23 14:00 Urine Color [place] (Yellow) 10/26/23 16:10 Urine Appearance Clear (CLEAR) 10/26/23 16:10 Urine pH 5 (5-7) 10/26/23 16:10 Ur Specific [place] 1.005 (1.005-1.030) 10/26/23 16:10 Urine Protein Neg (Negative) 10/26/23 16:10 Urine Glucose (UA) Norm (Normal) 10/26/23 16:10 Urine Ketones 1+ (Negative) H 10/26/23 16:10 Urine Blood 3+ (Negative) H 10/26/23 16:10 Urine Nitrate Negative (Negative) 10/26/23 16:10 Urine Bilirubin 1+ (Negative) H 10/26/23 16:10 Urine Urobilinogen 4+ mg/dL (Negative) H 10/26/23 16:10 Ur Leukocyte Esterase Negative (Negative) 10/26/23 16:10 Urine RBC 5-10 /hpf (0-2) H 10/26/23 16:10 Urine WBC 0-4 /hpf (0-5) H 10/26/23 16:10 Ur Squamous Epith Cells 0-4 /hpf (0-5) H 10/26/23 16:10 Amorphous Sediment Not Reportable 10/26/23 16:10 Urine Bacteria 1+ /hpf (NONE) H 10/26/23 16:10 Vancomycin Trough 14.5 ug/mL (10-15) 11/02/23 14:00 Serum Ketones Negative (Negative) 10/26/23 14:00 Hepatitis A IgM Ab Non-reactive (Nonreactive) 11/01/23 02:15 Hep Bs Antigen Non-reactive (Nonreactive) 11/01/23 02:15 Hep Bs Antibody < 3.5 (11.5-1000) L 11/01/23 02:15 Hep B Core Total Ab Non-reactive (Nonreactive) 11/01/23 02:15 Hepatitis C Antibody Non-reactive (Nonreactive) 11/01/23 02:15 SARS-CoV-2 Ag (Rapid) negative (Negative) 10/26/23 14:48 Vitals Last Vital Signs Temp 98.0 F 11/03/23 10:00 Pulse 90 11/03/23 11:09 Resp 17 11/03/23 11:09 BP 151/91 11/03/23 10:00 Pulse Ox 94 11/03/23 11:09 O2 Del Method Nasal Cannula 11/03/23 11:09 O2 Flow Rate 2 11/03/23 11:09 FiO2 40 11/01/23 08:00 Discharge Plan Discharge Patient Disposition: Home Condition: Stable Prescriptions: New amlodipine 10 mg Tablet 10 mg PO DAILY Qty: 30 0RF gabapentin 100 mg Capsule 100 mg PO TID 30 Days Qty: 90 0RF linezolid 600 mg tablet 600 mg PO BID Qty: 6 0RF levofloxacin 500 mg tablet 500 mg PO Q24H 3 Days Qty: 3 0RF lactulose 10 gram packet 10 g PO DAILY Qty: 15 0RF Continued (DME) [employer]ia Lift See Rx Instructions .Route .MEDSUPPLY Qty: 1 0RF Rx Instructions: Please issue mechanical or electric lift for patient to use at home for transfers and mobility due to high risk of falls, R AKA, Charcot foot of the Left foot. silver sulfadiazine [Silvadene] 1 % cream 1 applic topical BID Qty: 20 0RF Rx Instructions: apply a 1.5 mm thickness venlafaxine 150 mg capsule,extended release 24hr 150 mg PO QAM Qty: 90 2RF (DME) Hospital bed See Rx Instructions .Route .MEDSUPPLY Qty: 1 0RF Rx Instructions: As directed Eliquis 5 mg tablet 5 mg PO BID@0900,2100 Qty: 60 3RF (DME) Power chair repair See Rx Instructions .Route .MEDSUPPLY Qty: 1 0RF Rx Instructions: As directed nystatin 100,000 unit/gram powder 1 applic topical TID Qty: 15 0RF miscellaneous medical supply [facility] [place] See Rx Instructions .ROUTE .COMPLEX Qty: 1 0RF Rx Instructions: Please issue Motorized wheelchair. lidocaine-prilocaine 2.5-2.5 % cream See Rx Instructions .ROUTE .COMPLEX Qty: 30 2RF Dose Instruction: APPLY TO THE AFFECTED AREA(S) TWICE DAILY Rx Instructions: APPLY TO THE AFFECTED AREA(S) TWICE DAILY ketoconazole 2 % shampoo See Rx Instructions .ROUTE .COMPLEX Qty: 120 0RF Dose Instruction: USE NEEDED TO SCALP Rx Instructions: USE NEEDED TO SCALP fluticasone propionate 50 mcg/actuation spray,suspension 2 spray INTRANASAL DAILY PRN (Reason: Allergy Symptoms) prochlorperazine maleate [Compazine] 10 mg tablet 10 mg PO BID PRN (Reason: Nausea And Vomiting) fenofibrate micronized 200 mg capsule 200 mg PO BEDTIME pantoprazole 40 mg tablet,delayed release (DR/EC) 40 mg PO BID metformin 500 mg tablet extended release 24 hr 500 mg PO QAM aspirin 325 mg Tablet 325 mg PO Q4H PRN (Reason: Headache) Rx Instructions: while awake methadone 40 mg Tablet,Soluble 30 mg PO QAM furosemide 40 mg tablet 40 mg PO DAILY PRN (Reason: Edema) potassium chloride 20 mEq tablet extended release 20 meq PO DAILY PRN (Reason: unknown) budesonide 0.5 mg/2 mL suspension for nebulization 0.5 mg inhalation BID PRN (Reason: Shortness Of Breath) albuterol sulfate 90 mcg/actuation HFA aerosol inhaler 2 inh INHALATION Q4H PRN (Reason: shortness of breath or wheezing) Qty: 18 0RF Changed diazepam 5 mg tablet 5 mg PO QAM PRN (Reason: anxiety) Qty: 2 0RF Rx Instructions: Disregard the prescription as patient already has the medications at home Discontinued atenolol 100 mg tablet 100 mg PO BID gabapentin 600 mg tablet 900 mg PO TID Discharge Orders: Discharge Order (Routine); Ordered 11/03/23 Ordered By: Eduardo Pineda Referrals: Dewitt,Wilner W, DO [Primary Care Provider] - 7-10 days (Please call [phone] TOMORROW to set up an appointment to see Dr Hdez. ) WOUND CARE CLINIC, [Staff Physician] - 4-7 days Discharge Diet: Cardiac Discharge Activity: Resume usual activity and Increase activity as tolerated Patient Instructions: Type 2 Diabetes, Gabapentin (By mouth), Amlodipine (By mouth), Hyponatremia (DC), Hypotension (DC), Hypoglycemia in Adolescents with Diabetes (DC), Opioid Safety Activity Restrictions/Additional Instructions: Please avoid amphetamines. Gabapentin dose has been changed to 100 mg 3 times a day. Please follow-up with methadone clinic. Please use lactulose at least twice daily so you have 1 or 2 soft bowel movements daily. Please continue to follow-up at wound care clinic. Atenolol has been discontinued. Discharge Attestations Time Spent in Discharge Care*: greater than 30 min Specific Discharge Activities: educating patient, discussing with pcp/other providers, discussing with trimming caser/social workers/dc planners, documenting/other paperwork and evaluating patient/reviewing data Status at Discharge: Cognitive status at discharge: cognitively intact , Behavioral status at discharge: cooperative , Functional status at discharge: other assisted ambulation , Overall status at discharge: patient is back to baseline Quality Metrics Clinical Quality Measures [ No reported AMI, CVA or VTE this stay] Coding Level of Care Code 51297 Total time (in minutes) for Discharge: 60 Diagnoses Sepsis A41.9; R65.21 Sepsis acute organ dysfunction status: with acute organ dysfunction Sepsis type: sepsis due to unspecified organism Severe sepsis acute organ dysfunction type: unspecified Severe sepsis shock status: with septic shock Cellulitis L03.90 AMS (altered mental status) R41.82 Hypoglycemia E16.2 Type 2 diabetes mellitus with other diabetic arthropathy, 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 Acute hyponatremia E87.1 Intertrigo L30.4
== END 2023-11-03 18:02 | disposition home or self-care (01) | DRG 871 ==
LOC: ER 17:22 → ICU 17:24 → MEDSURG 10-30 15:59 → ICU 10-31 20:48 → MEDSURG 11-02 16:38
PROVIDERS: Internal Medicine; Admitting Provider Internal Medicine; Emergency Provider Internal Medicine; PCP Family Medicine; Visit Provider Student in an Organized Health Care Education/Training Program
DX: A41.9 Sepsis, unspecified organism (principal); R65.21 Severe sepsis with septic shock; L03.116 Cellulitis of left lower limb; L03.115 Cellulitis of right lower limb; T87.43 Infection of amputation stump, right lower extremity; I50.32 Chronic diastolic (congestive) heart failure; F11.20 Opioid dependence, uncomplicated; E46 Unspecified protein-calorie malnutrition; L97.422 Non-pressure chronic ulcer of left heel and midfoot with fat layer exposed; E87.1 Hypo-osmolality and hyponatremia; B99.9 Unspecified infectious disease; Y81.8 Miscellaneous general- and plastic-surgery devices associated with adverse incidents, not elsewhere classified; J44.9 Chronic obstructive pulmonary disease, unspecified; I11.0 Hypertensive heart disease with heart failure; E11.40 Type 2 diabetes mellitus with diabetic neuropathy, unspecified; E11.610 Type 2 diabetes mellitus with diabetic neuropathic arthropathy; E11.65 Type 2 diabetes mellitus with hyperglycemia; F32.A Depression, unspecified; F41.9 Anxiety disorder, unspecified; G89.29 Other chronic pain; E78.5 Hyperlipidemia, unspecified; M43.6 Torticollis; M54.16 Radiculopathy, lumbar region; M96.1 Postlaminectomy syndrome, not elsewhere classified; R06.89 Other abnormalities of breathing; D50.9 Iron deficiency anemia, unspecified; B95.5 Unspecified streptococcus as the cause of diseases classified elsewhere; B96.5 Pseudomonas (aeruginosa) (mallei) (pseudomallei) as the cause of diseases classified elsewhere; E83.42 Hypomagnesemia; E11.621 Type 2 diabetes mellitus with foot ulcer; L97.529 Non-pressure chronic ulcer of other part of left foot with unspecified severity; K76.82 Hepatic encephalopathy; F15.10 Other stimulant abuse, uncomplicated; I95.9 Hypotension, unspecified; Z99.3 Dependence on wheelchair; Z79.01 Long term (current) use of anticoagulants; Z79.84 Long term (current) use of oral hypoglycemic drugs; Z86.718 Personal history of other venous thrombosis and embolism; Z87.891 Personal history of nicotine dependence; Z89.611 Acquired absence of right leg above knee; Z68.32 Body mass index [BMI] 32.0-32.9, adult; Z86.14 Personal history of Methicillin resistant Staphylococcus aureus infection; Z80.1 Family history of malignant neoplasm of trachea, bronchus and lung
CPT/HCPCS: 36415; 36416; 36600; 51702; 70450; 71045; 72193; 73701; 76705; 76882; 80048; 80051; 80053; 80202; 81001; 82009; 82140; 82330; 82533; 82607; 82746; 82803; 82805; 82962; 82977; 83540; 83550; 83605; 83615; 83735; 84100; 84145; 84484; 85025; 85610; 85651; 85730; 86140; 86705; 86706; 86709; 86803; 87040; 87070; 87077; 87186; 87205; 87340; 87426; 92610; 93005; 94640; 94660; 96365; 96366; 96367; 96372; 96375; 96376; 97597; 97598; 99285; J1450; J1650; J1756; J1815; J1940; J2270; J2543; J2930; J3010; J3370; J3475; J3480; J3490; J3535; J7030; J7042; J7060; J7070; J7120; J7613; J7626; P9046; Q9967

== ENCOUNTER → 2023-11-07 08:12 | Outpatient (BNVA) | payer MEDICARE, MEDICAID, SELFPAY | PROVIDERS: PCP Family Medicine; Visit Provider Thoracic Surgery (Cardiothoracic Vascular Surgery) | DX: E11.52 Type 2 diabetes mellitus with diabetic peripheral angiopathy with gangrene (principal); E11.622 Type 2 diabetes mellitus with other skin ulcer; L97.821 Non-pressure chronic ulcer of other part of left lower leg limited to breakdown of skin; E11.621 Type 2 diabetes mellitus with foot ulcer; L97.521 Non-pressure chronic ulcer of other part of left foot limited to breakdown of skin; L89.622 Pressure ulcer of left heel, stage 2 | CPT/HCPCS: 11042; 97597; A6219 ==

== ENCOUNTER → 2023-11-26 10:57 | Outpatient (BNVA) | payer MEDICARE, MEDICAID, SELFPAY | PROVIDERS: PCP Family Medicine; Visit Provider Nurse Practitioner Family | DX: E11.52 Type 2 diabetes mellitus with diabetic peripheral angiopathy with gangrene (principal); E11.622 Type 2 diabetes mellitus with other skin ulcer; L97.821 Non-pressure chronic ulcer of other part of left lower leg limited to breakdown of skin; E11.621 Type 2 diabetes mellitus with foot ulcer; L89.622 Pressure ulcer of left heel, stage 2; L89.892 Pressure ulcer of other site, stage 2 | CPT/HCPCS: 97597; 97598 ==

== ENCOUNTER → 2023-12-03 08:48 | Outpatient (BNVA) | payer MEDICARE, MEDICAID, SELFPAY | PROVIDERS: PCP Family Medicine; Visit Provider Nurse Practitioner Family | DX: L89.622 Pressure ulcer of left heel, stage 2 (principal); L89.892 Pressure ulcer of other site, stage 2; E11.52 Type 2 diabetes mellitus with diabetic peripheral angiopathy with gangrene; E11.622 Type 2 diabetes mellitus with other skin ulcer; L97.822 Non-pressure chronic ulcer of other part of left lower leg with fat layer exposed; E11.621 Type 2 diabetes mellitus with foot ulcer; L97.422 Non-pressure chronic ulcer of left heel and midfoot with fat layer exposed | CPT/HCPCS: 97597; 97598 ==

== ENCOUNTER 2023-12-16 15:07 | Inpatient (IN) | payer MEDICARE, MEDICAID, SELFPAY ==
[2023-12-16] VITALS (54 sets, daily range): BP systolic 72–115; BP diastolic 43–64; PULSE 58–79; RESP 16–29; TEMP 36.8–37.2; O2SAT 91–97
--- NOTE | 2023-12-16 15:20 | XRR_ITS ---
PROCEDURE INFORMATION: Exam: XR Chest Exam date and time: 12/16/2023 3:41 PM Age: 63 years old Clinical indication: Other: AMS TECHNIQUE: Imaging protocol: Radiologic exam of the chest. Views: 1 view. COMPARISON: CR XR chest 1V portable [id number] 10/31/2023 10:43 PM FINDINGS: Lungs: Interval improved aeration of the lungs. Left parahilar scar versus atelectasis. Left lower lobe calcified granuloma again seen as seen on CTA chest of 12/27/2020. No active pulmonary disease. Pleural spaces: No pleural effusion or pneumothorax. Heart/Mediastinum: Unremarkable. Diaphragm: Elevated right hemidiaphragm again noted. Bones/joints: Cervicothoracic fusion hardware again noted. XR/XR chest 1V portable [id number] IMPRESSION: No acute pathology.
--- NOTE | 2023-12-16 15:20 | CTR_ITS ---
PROCEDURE INFORMATION: Exam: CT Cervical Spine Without Contrast Exam date and time: 12/16/2023 4:30 PM Age: 63 years old Clinical indication: Injury or trauma; Fall; Blunt trauma; Prior surgery; Surgery date: 6+ months; Surgery type: Skull c spine fusion; Additional info: Trauma/fall/ams TECHNIQUE: Imaging protocol: Computed tomography of the cervical spine without contrast. Radiation optimization: All CT scans at this facility use at least one of these dose optimization techniques: automated exposure control; mA and/or kV adjustment per patient size (includes targeted exams where dose is matched to clinical indication); or iterative reconstruction. COMPARISON: CT cervical spin wo con* [id number] 12/30/2020 2:27 PM RADIATION DOSE METRICS: Total DLP (mGy-cm): 207 FINDINGS: Bones/joints: Straightening of cervical lordosis. Posterior fusion hardware extends from the occipital bone through at least the T3 vertebral body is again seen. Patient is status post posterior decompression from C3 through C6. Patient is also status post anterior fusion from C5 through C7 with C6 corpectomy. Mild anterolisthesis of C3 on C4 is again seen. Slight anterior buckling of the anterior cortex of the C4 vertebral body is unchanged compared to the prior exam. No acute fracture or dislocation. No hardware failure. Artifacts from hardware partially obscure contents of the cervical canal. Lungs: Mild emphysema at the lung apices. Soft tissues: No acute soft tissue pathology is seen. CT/CT cervical spin wo con* [id number] IMPRESSION: Stable exam with no evidence of acute traumatic injury. Features of prior decompression and fusion and other minor findings are again seen as detailed above.
--- NOTE | 2023-12-16 15:20 | CTR_ITS ---
PROCEDURE INFORMATION: Exam: CT Head Without Contrast Exam date and time: 12/16/2023 4:30 PM Age: 63 years old Clinical indication: Injury or trauma; Fall; Blunt trauma (contusions or hematomas); Prior surgery; Surgery date: 6+ months; Surgery type: Skull to c spin fusion; Additional info: Trauma/fall/ams TECHNIQUE: Imaging protocol: Computed tomography of the head without contrast. Radiation optimization: All CT scans at this facility use at least one of these dose optimization techniques: automated exposure control; mA and/or kV adjustment per patient size (includes targeted exams where dose is matched to clinical indication); or iterative reconstruction. COMPARISON: CT head wo con* [id number] 10/31/2023 8:41 PM RADIATION DOSE METRICS: Total DLP (mGy-cm): 1204 FINDINGS: Brain: No evidence of mass effect, intracranial hemorrhage or extra-axial collection. No acute infarct. Cerebral ventricles: Ventricular size and configuration within normal limits for age. Paranasal sinuses: No significant pathology. Mastoid air cells: No significant pathology. Bones/joints: Again noted is artifact emanating from cervical occipital fusion hardware partially obscuring adjacent anatomy in the posterior fossa. No evidence of skull fracture. Soft tissues: No significant pathology. CT/CT head wo con* [id number] IMPRESSION: No acute traumatic pathology.
[2023-12-16 16:10] LABS: Hematocrit 34.5 % (36-47); Mean Corpuscular HGB Conc 31.6 g/dL (30-55); Mean Corpuscular Hemoglobin 28.5 pg (27-33); Mean Corpuscular Volume 90.3 fl (85-98); Mean Platelet Volume 10.3 fL (7.4-10.4); Platelet Count 655 10^3/cmm (157-399); Red Blood Count 3.82 10^6/uL (3.85-5.65); Red Cell Distribution Width 18.9 % (12.1-15.1)
[2023-12-16 16:46] LABS: Absolute Segmented Neutrophil 30.4 10/cmm (1.6-7.1); Band Neutrophils Absolute 10.9 10^3/cmm (0.0-1.2); Eosinophils 0 %; Lymphocytes 8 %; Lymphocytes Absolute 3.8 10^3/cmm (1.2-3.4); Monocytes Absolute 0.9 10^3/cmm (0.1-0.6); Segmented Neutrophils 64 %; Slide Review Slide Review Perform; Total Cells Counted 100 (0-100); White Blood Count 47.43 10^3/uL (3.29-11.43)
[2023-12-16 16:47] LABS: Absolute Neutrophil 41.3 10^3/cmm (1.4-6.5); Platelet Estimate Increased (Normal)
--- NOTE | 2023-12-16 17:09 | ED_ITS ---
Documented by User: Todd Bailey MD 12/22/23 10:13 HPI - Altered Mental Status 2 General: Chief Complaint: Altered Mental Status Stated Complaint: ams, post fall last night Time Seen by Provider: 12/16/23 15:19 History of Present Illness: 63-year-old female presents to the emerg ency department via EMS personnel. EMS personnel state that the patient was found on the floor by her family and had apparently fallen last night. Per EMS the family states that the patient is significantly altered from her baseline. Patient is responsive to noxious stimuli only. She does have a dressing to her left lower extremity and does have urine covering the dressing. She does appear to be very malodorous and unkept. Review of Systems 2 General: Reports: ROS unobtainable due to medical condition and ROS unobtainable due to mental status PFSH ED 2 PFSH: Medical History AMS (altered mental status) COPD (chronic obstructive pulmonary disease) Metabolic encephalopathy Degenerative joint disease of left knee Closed fracture of left distal femur Hypertension Closed femur fracture Venous stasis ulcer Cellulitis Diabetic neuropathy associated with type 2 diabetes mellitus Diastolic CHF Anemia Substance abuse Depression with anxiety Chronic pain History of DVT of lower extremity post-operative Hyperlipidemia Hypertension History of cardioversion history of SVT vs for other arrhythmia Methamphetamine use Diabetes mellitus, type II Nzctjvk-Zhati-Rforq disease-like deformity of foot right Lung cancer Torticollis, acquired Has had good results with Botox in the past Lumbar radiculopathy Cervical post-laminectomy syndrome Surgical History Status post above-knee amputation of right lower extremity Hx of neck surgery x 2, posterior laminectomy and cervical fusion with hardware in place, limited ROM neck at baseline Hx of total knee replacement (~2010) Right History of arthroplasty of left knee (~1976) History of partial hysterectomy Hx of dilation and curettage Hx of tubal ligation Hx of appendectomy Family History Family/Other Hypertension Depression Anxiety Diabetes Father Aneurysm Mother Hypertension Brother Diabetes Sister Diabetes Social History Smoking and tobacco/nicotine status: current every day tobacco/nicotine user Alcohol intake: never Substance/Drug Use: current Substance/Drug use frequency: few times a month Additional social history: unknown if patient continues to smoke, documented to smoke previously Marital status: Female Reproductive History: Spontaneous abortions: No Physical Exam 2 Narrative: Constitutional: The patient is malodorous, unkept, ill-appearing, responsive to only noxious stimuli. With significant altered mental status Head, eyes, ears, nose, mouth, throat: Normocephalic, atraumatic. Pupils-equal, round, reactive to light. No scleral icterus. Normal-appearing external ears. Normal appearing nasal turbinates, no drainage. No obvious oral lesions, posterior oropharynx without erythema or exudates. Neck: Supple, trachea is midline, no lymphadenopathy, no jugular venous distension, thyromegaly, or carotid bruits. Carotid upstrokes are brisk bilaterally. Postoperative surgical scars to the posterior aspect of the neck. Lungs: Diminished bilaterally in the bases, coarse lung sounds throughout. Symmetrical rise and fall of chest, no obvious signs of increased work of breathing at present. Cardiac: Regular rate and rhythm, positive S1, S2. No murmurs, rubs or gallops that I can appreciate Abdomen: Soft, non-tender to palpation, normal active bowel sounds to all quadrants. No palpable masses, no organomegaly and abdominal bruits. Extremities: 2+ pulses in the upper extremities that are equal bilaterally, 2+ pulses in the lower extremities that are equal bilaterally. Left lower extremity with wound I have remove the dressing. Moves all extremities well, responsive to noxious stimuli all extremities are noted. Skin: Warm, wound as previously noted to the left lower extremity she does appear to be significantly unkept. Urinary Catheter Management: Garber: Cath Placed During This Visit: yes Urinary Catheter Date of Insertion: 12/16/23 Course 2 Vital Signs: Vital signs: Vital Signs Temperature 97.6 F 12/22/23 08:00 Pulse Rate 72 12/22/23 08:00 Respiratory Rate 17 12/22/23 08:34 Blood Pressure 129/78 12/22/23 08:00 Pulse Oximetry 100 12/22/23 08:00 Oxygen Delivery Me thod Nasal Cannula 12/22/23 08:00 Oxygen Flow Rate 2 12/22/23 08:00 MDM - Altered Mental Status Medical Decision Making Physical exam completed and documented, I will obtain POC glucose check and treat accordingly. I will obtain a chest x-ray and if indicated a CT scan of the head without contrast to evaluate for intracranial hemorrhage and if indicated a CTA scan of the head and neck for evaluation of acute ischemic vessel occlusion. I have reviewed previous and pertinent medical records for assist in obtaining benefical medical information to improved the care and treatment of the patient. Given the concern for sepsis I will provide IV fluid rehydration as well as obtain blood cultures, urinalysis, CBC, CMP, CRP, ESR, procalcitonin and lactic acid. Medical Records I reviewed the patient's medical records. Lab Data 12/22/23 05:49 12/22/23 05:49 Radiology Impressions Cervical Spine CT 12/16/23 15:20 IMPRESSION: Stable exam with no evidence of acute traumatic injury. Features of prior decompression and fusion and other minor findings are again seen as detailed above. Head CT 12/16/23 15:20 IMPRESSION: No acute traumatic pathology. Laboratory Results WBC 47.43 10^3/uL (3.29-11.43) H* 12/16/23 14:44 RBC 3.82 10^6/uL (3.85-5.65) L 12/16/23 14:44 Hgb 10.90 g/dL (11.27-16.99) L 12/16/23 14:44 Hct 34.5 % (36-47) L 12/16/23 14:44 MCV 90.3 fl (85-98) 12/16/23 14:44 MCH 28.5 pg (27-33) 12/16/23 14:44 MCHC 31.6 g/dL (30-55) 12/16/23 14:44 RDW 18.9 % (12.1-15.1) H 12/16/23 14:44 Plt Count 655 10^3/cmm (157-399) H 12/16/23 14:44 MPV 10.3 fL (7.4-10.4) 12/16/23 14:44 Lymph % (Auto) Not Reportable 12/16/23 14:44 [place] % (Auto) Not Reportable 12/16/23 14:44 Lymph # (Auto) Not Reportable 12/16/23 14:44 [place] # (Auto) Not Reportable 12/16/23 14:44 Total Counted 100 (0-100) 12/16/23 14:44 Atypical Lymphs % 0.0 % (0-5) 12/16/23 14:44 Absolute Neutrophils 41.3 10^3/cmm (1.4-6.5) H 12/16/23 14:44 Segmented Neutrophils 64 % 12/16/23 14:44 Abs Segm Neuts (Man) 30.4 10/cmm (1.6-7.1) H 12/16/23 14:44 Band Neutrophils 23.0 % 12/16/23 14:44 Abs Band Neuts (Man) 10.9 10^3/cmm (0.0-1.2) H 12/16/23 14:44 Absolute Lymphocytes 3.8 10^3/cmm (1.2-3.4) H 12/16/23 14:44 Lymphocytes (Manual) 8 % 12/16/23 14:44 Monocytes (Manual) 2.0 % 12/16/23 14:44 Absolute Monocytes 0.9 10^3/cmm (0.1-0.6) H 12/16/23 14:44 Eosinophils (Manual) 0 % 12/16/23 14:44 Absolute Eosinophils 0.0 10^3/cmm (0.0-0.7) 12/16/23 14:44 Basophils (Manual) 0.0 % 12/16/23 14:44 Absolute Basophils 0.0 10^3/cmm (0.0-0.2) 12/16/23 14:44 Metamyelocytes 2.0 % 12/16/23 14:44 Myelocytes 1.0 % 12/16/23 14:44 Platelet Estimate Increased (Normal) H 12/16/23 14:44 ESR 125 mm/hr (0-15) H 12/16/23 14:44 Sodium 130 mmol/L (136-145) L 12/16/23 19:19 Potassium 5.7 mmol/L (3.5-5.1) H 12/16/23 19:19 Chloride 103 mmol/L (98-107) 12/16/23 19:19 Carbon Dioxide 16 mmol/L (22-29) L 12/16/23 19:19 Anion Gap 16.7 (5-19) 12/16/23 19:19 BUN 61 mg/dL (8-23) H 12/16/23 19:19 Creatinine 1.4 mg/dL (0.5-0.9) H 12/16/23 19:19 GFR Calculation 38.0 mL/min (90-130) L 12/16/23 19:19 Glucose 202 mg/dL (65-115) H 12/16/23 19:19 POC Glucose 236 mg/dL (70-110) H 12/16/23 18:02 Estimat Average Glucose 160 12/16/23 14:44 Hemoglobin A1c 7.2 % (4.0-6.0) H 12/16/23 14:44 Calculated Osmolality 293 mOsm/kg (285-295) 12/16/23 19:19 Lactic Acid 2.0 mmol/L (0.5-2.2) 12/16/23 21:34 Calcium 8.0 mg/dL (8.5-10.5) L 12/16/23 19:19 Total Bilirubin 1.0 mg/dL (0.15-1.2) 12/16/23 19:19 AST 21 U/L (0-32) 12/16/23 19:19 ALT 10 U/L (0-33) 12/16/23 19:19 Alkaline Phosphatase 220 U/L (35-105) H 12/16/23 19:19 C-Reactive Protein 289.5 mg/L (0.0-4.9) H 12/16/23 19:19 Total Protein 6.0 g/dL (6.6-8.7) L 12/16/23 19:19 Albumin 1.9 g/dL (3.5-5.2) L 12/16/23 19:19 Globulin 4.1 g/dL (1.3-4.6) 12/16/23 19:19 Procalcitonin 11.06 ng/mL (0-0.5) H 12/16/23 19:19 Urine Color [place] (Yellow) 12/16/23 18:01 Urine Appearance Cloudy (CLEAR) A 12/16/23 18:01 Urine pH 5 (5-7) 12/16/23 18:01 Ur Specific [place] 1.015 (1.005-1.030) 12/16/23 18:01 Urine Protein 1+ (Negative) H 12/16/23 18:01 Urine Glucose (UA) Norm (Normal) 12/16/23 18:01 Urine Ketones 1+ (Negative) H 12/16/23 18:01 Urine Blood 2+ (Negative) H 12/16/23 18:01 Urine Nitrate Negative (Negative) 12/16/23 18:01 Urine Bilirubin 1+ (Negative) H 12/16/23 18:01 Urine Urobilinogen 1 mg/dL (Negative) H 12/16/23 18:01 Ur Leukocyte Esterase 2+ (Negative) H 12/16/23 18:01 Urine RBC 10-15 /hpf (0-2) H 12/16/23 18:01 Urine WBC 40-55 /hpf (0-5) H 12/16/23 18:01 Ur Squamous Epith Cells 0-4 /hpf (0-5) H 12/16/23 18:01 Amorphous Sediment Not Reportable 12/16/23 18:01 Urine Bacteria 4+ /hpf (NONE) H 12/16/23 18:01 Discharge Plan Discharge Patient Disposition: Admitted As Inpatient Admit Provider: Jose Tapia Clinical Impression: Acute alteration in mental status, Fall, Urinary tract infection, Cellulitis of left lower leg Condition: Stable Coding Level of Care Code ED Recruiting Assistant for Chg Fwd Documented by User: Judson Garcias DO 12/16/23 21:13 HPI - Altered Mental Status 2 General: Chief Complaint: Altered Mental Status Stated Complaint: ams, post fall last night Time Seen by Provider: 12/16/23 15:19 PFSH ED 2 PFSH: Medical History AMS (altered mental status) COPD (chronic obstructive pulmonary disease) Metabolic encephalopathy Degenerative joint disease of left knee Closed fracture of left distal femur Hypertension Closed femur fracture Venous stasis ulcer Cellulitis Diabetic neuropathy associated with type 2 diabetes mellitus Diastolic CHF Anemia Substance abuse Depression with anxiety Chronic pain History of DVT of lower extremity post-operative Hyperlipidemia Hypertension History of cardioversion history of SVT vs for other arrhythmia Methamphetamine use Diabetes mellitus, type II Dnjpwcm-Ujirf-Zvwzj disease-like deformity of foot right Lung cancer Torticollis, acquired Has had good results with Botox in the past Lumbar radiculopathy Cervical post-laminectomy syndrome Surgical History Status post above-knee amputation of right lower extremity Hx of neck surgery x 2, posterior laminectomy and cervical fusion with hardware in place, limited ROM neck at baseline Hx of total knee replacement (~2010) Right History of arthroplasty of left knee (~1976) History of partial hysterectomy Hx of dilation and curettage Hx of tubal ligation Hx of appendectomy Family History Family/Other Hypertension Depression Anxiety Diabetes Father Aneurysm Mother Hypertension Brother Diabetes Sister Diabetes Social History Smoking and tobacco/nicotine status: current every day tobacco/nicotine user Alcohol intake: never Substance/Drug Use: current Substance/Drug use frequency: few times a month Additional social history: unknown if patient continues to smoke, documented to smoke previously Marital status: Physical Exam 2 Urinary Catheter Management: Garber: Cath Placed During This Visit: yes Course 2 Vital Signs: Vital signs: Vital Signs Temperature 97.6 F 12/22/23 08:00 Pulse Rate 72 12/22/23 08:00 Respiratory Rate 17 12/22/23 08:34 Blood Pressure 129/78 12/22/23 08:00 Pulse Oximetry 100 12/22/23 08:00 Oxygen Delivery Me thod Nasal Cannula 12/22/23 08:00 Oxygen Flow Rate 2 12/22/23 08:00 MDM - Altered Mental Status Lab Data I reviewed the patient's lab results. 12/22/23 05:49 12/22/23 05:49 Radiology Impressions Cervical Spine CT 12/16/23 15:20 IMPRESSION: Stable exam with no evidence of acute traumatic injury. Features of prior decompression and fusion and other minor findings are again seen as detailed above. Head CT 12/16/23 15:20 IMPRESSION: No acute traumatic pathology. Laboratory Results WBC 47.43 10^3/uL (3.29-11.43) H* 12/16/23 14:44 RBC 3.82 10^6/uL (3.85-5.65) L 12/16/23 14:44 Hgb 10.90 g/dL (11.27-16.99) L 12/16/23 14:44 Hct 34.5 % (36-47) L 12/16/23 14:44 MCV 90.3 fl (85-98) 12/16/23 14:44 MCH 28.5 pg (27-33) 12/16/23 14:44 MCHC 31.6 g/dL (30-55) 12/16/23 14:44 RDW 18.9 % (12.1-15.1) H 12/16/23 14:44 Plt Count 655 10^3/cmm (157-399) H 12/16/23 14:44 MPV 10.3 fL (7.4-10.4) 12/16/23 14:44 Lymph % (Auto) Not Reportable 12/16/23 14:44 [place] % (Auto) Not Reportable 12/16/23 14:44 Lymph # (Auto) Not Reportable 12/16/23 14:44 [place] # (Auto) Not Reportable 12/16/23 14:44 Total Counted 100 (0-100) 12/16/23 14:44 Atypical Lymphs % 0.0 % (0-5) 12/16/23 14:44 Absolute Neutrophils 41.3 10^3/cmm (1.4-6.5) H 12/16/23 14:44 Segmented Neutrophils 64 % 12/16/23 14:44 Abs Segm Neuts (Man) 30.4 10/cmm (1.6-7.1) H 12/16/23 14:44 Band Neutrophils 23.0 % 12/16/23 14:44 Abs Band Neuts (Man) 10.9 10^3/cmm (0.0-1.2) H 12/16/23 14:44 Absolute Lymphocytes 3.8 10^3/cmm (1.2-3.4) H 12/16/23 14:44 Lymphocytes (Manual) 8 % 12/16/23 14:44 Monocytes (Manual) 2.0 % 12/16/23 14:44 Absolute Monocytes 0.9 10^3/cmm (0.1-0.6) H 12/16/23 14:44 Eosinophils (Manual) 0 % 12/16/23 14:44 Absolute Eosinophils 0.0 10^3/cmm (0.0-0.7) 12/16/23 14:44 Basophils (Manual) 0.0 % 12/16/23 14:44 Absolute Basophils 0.0 10^3/cmm (0.0-0.2) 12/16/23 14:44 Metamyelocytes 2.0 % 12/16/23 14:44 Myelocytes 1.0 % 12/16/23 14:44 Platelet Estimate Increased (Normal) H 12/16/23 14:44 ESR 125 mm/hr (0-15) H 12/16/23 14:44 Sodium 130 mmol/L (136-145) L 12/16/23 19:19 Potassium 5.7 mmol/L (3.5-5.1) H 12/16/23 19:19 Chloride 103 mmol/L (98-107) 12/16/23 19:19 Carbon Dioxide 16 mmol/L (22-29) L 12/16/23 19:19 Anion Gap 16.7 (5-19) 12/16/23 19:19 BUN 61 mg/dL (8-23) H 12/16/23 19:19 Creatinine 1.4 mg/dL (0.5-0.9) H 12/16/23 19:19 GFR Calculation 38.0 mL/min (90-130) L 12/16/23 19:19 Glucose 202 mg/dL (65-115) H 12/16/23 19:19 POC Glucose 236 mg/dL (70-110) H 12/16/23 18:02 Estimat Average Glucose 160 12/16/23 14:44 Hemoglobin A1c 7.2 % (4.0-6.0) H 12/16/23 14:44 Calculated Osmolality 293 mOsm/kg (285-295) 12/16/23 19:19 Lactic Acid 2.0 mmol/L (0.5-2.2) 12/16/23 21:34 Calcium 8.0 mg/dL (8.5-10.5) L 12/16/23 19:19 Total Bilirubin 1.0 mg/dL (0.15-1.2) 12/16/23 19:19 AST 21 U/L (0-32) 12/16/23 19:19 ALT 10 U/L (0-33) 12/16/23 19:19 Alkaline Phosphatase 220 U/L (35-105) H 12/16/23 19:19 C-Reactive Protein 289.5 mg/L (0.0-4.9) H 12/16/23 19:19 Total Protein 6.0 g/dL (6.6-8.7) L 12/16/23 19:19 Albumin 1.9 g/dL (3.5-5.2) L 12/16/23 19:19 Globulin 4.1 g/dL (1.3-4.6) 12/16/23 19:19 Procalcitonin 11.06 ng/mL (0-0.5) H 12/16/23 19:19 Urine Color [place] (Yellow) 12/16/23 18:01 Urine Appearance Cloudy (CLEAR) A 12/16/23 18:01 Urine pH 5 (5-7) 12/16/23 18:01 Ur Specific [place] 1.015 (1.005-1.030) 12/16/23 18:01 Urine Protein 1+ (Negative) H 12/16/23 18:01 Urine Glucose (UA) Norm (Normal) 12/16/23 18:01 Urine Ketones 1+ (Negative) H 12/16/23 18:01 Urine Blood 2+ (Negative) H 12/16/23 18:01 Urine Nitrate Negative (Negative) 12/16/23 18:01 Urine Bilirubin 1+ (Negative) H 12/16/23 18:01 Urine Urobilinogen 1 mg/dL (Negative) H 12/16/23 18:01 Ur Leukocyte Esterase 2+ (Negative) H 12/16/23 18:01 Urine RBC 10-15 /hpf (0-2) H 12/16/23 18:01 Urine WBC 40-55 /hpf (0-5) H 12/16/23 18:01 Ur Squamous Epith Cells 0-4 /hpf (0-5) H 12/16/23 18:01 Amorphous Sediment Not Reportable 12/16/23 18:01 Urine Bacteria 4+ /hpf (NONE) H 12/16/23 18:01 All radiology interpretation(s) finalized by discharge Discharge Plan Discharge Patient Disposition: Admitted As Inpatient Admit Provider: Jose Tapia Clinical Impression: Acute alteration in mental status, Fall, Urinary tract infection, Cellulitis of left lower leg Condition: Stable Coding Level of Care Code ED Recruiting Assistant for Trent Crews
[2023-12-16] MEDS: sodium chloride 0.9% 1,000 ML 999 ML IV ×2 (17:24→18:37)
[2023-12-16 18:01] LABS: Lactic Sepsis W/Reflex 0.7 mmol/L (0.5-2.2)
[2023-12-16 18:06] LABS: Glucose Point of Care 236 mg/dL (70-110)
--- NOTE | 2023-12-16 18:27 | PC.NURSE ---
LAB CALLED STATING BLOOD NEEDED TO BE REDRAWN DUE TO INACCURATE RESULTS. THIS NURSE TOLD THEM THAT THE LAB WOULD HAVE TO DRAW THE BLOOD.
[2023-12-16 18:45] LABS: Urine Appearance Cloudy (CLEAR); Urine Color Amber (Yellow)
[2023-12-16 18:46] LABS: Add Urine Culture? Yes; Add Urine Microscopic? YES; Bacteria Urine 4+ /hpf; Bilirubin Urine 1+ (Negative); Blood Urine 2+ (Negative); Glucose Urine UA Norm (Normal); Ketones Urine 1+ (Negative); Leukocyte Esterase Urine 2+ (Negative); Nitrate Urine Negative (Negative); Protein Urine 1+ (Negative); Specific Gravity, Urine 1.015 (1.005-1.030); Squamous Epithelial Cell Urine 0-4 /hpf (0-5); Urobilinogen Urine 1 mg/dL (Negative); WBC Urine 40-55 /hpf (0-5); pH Urine 5 (5-7)
[2023-12-16 19:46] LABS: Erythrocyte Sedimentation Rate 125 mm/hr (0-15)
[2023-12-16 19:55] LABS: Alanine Aminotransferase 10 U/L (0-33); Albumin Level 1.9 g/dL (3.5-5.2); Alkaline Phosphatase 220 U/L (35-105); Anion Gap 16.7 (5-19); Aspartate Amino Transferase 21 U/L (0-32); Blood Urea Nitrogen 61 mg/dL (8-23); C Reactive Protein 289.5 mg/L (0.0-4.9); Carbon Dioxide 16 mmol/L (22-29); Chloride 103 mmol/L (98-107); Globulin 4.1 g/dL (1.3-4.6); Glucose 202 mg/dL (65-115); Osmolality Calculated 293 mOsm/kg (285-295); Potassium 5.7 mmol/L (3.5-5.1); Sodium 130 mmol/L (136-145)
[2023-12-16 20:00] LABS: Procalcitonin 11.06 ng/mL (0-0.5)
[2023-12-16] MEDS: piperacillin-tazobactam 3.375 GM in sodium chloride 0.9% (plus) 50 ML IV (21:29)
--- NOTE | 2023-12-16 22:10 | P.HP_ITS ---
Providers/Chief Complaint 2 Admitting Physician: Jose Tapia MD Primary Care Provider: Wilner Hdez DO Chief Complaint: ams, post fall last night History of Present Illness Polina Snyder is a 63 year old female with a past medical history of type 2 diabetes mellitus, history of right above-knee amputation, history of left leg cellulitis diabetic ulcer, managed with wound care, history of pulmonary embolism, hospitalization in October for altered mental status secondary to sepsis septic shock left lower extremity cellulitis history of altered mental status secondary to polypharmacy, history of hepatic encephalopathy, history of methadone use, history of amphetamine abuse who presents [facility] due to altered mental status. Currently patient is examined, she awakens to sternal rub but falls back asleep, does not follow commands, blood pressure 105/48, pulse 68, temperature 98.2, she is 93% on room air, according to ER provider patient had a fall last night was found on the floor by family, with altered mental status, she was found covered in her urine, urine covering her dressing, malodorous, unkempt Review of Systems 2 General: Reports: ROS unobtainable due to mental status Medications/Allergies Home Medications Medication Instructions Recorded Confirmed Last Taken Type Nubia Lift #1 ea 12/25/22 12/16/23 Unknown Rx Hospital bed #1 ea 03/22/23 12/16/23 Unknown Rx fenofibrate micronized 200 mg 200 mg PO BEDTIME 06/11/23 12/16/23 10/25/23 History capsule pantoprazole 40 mg tablet,delayed 40 mg PO BID 06/11/23 12/16/23 10/26/23 History release prochlorperazine maleate 10 mg 10 mg PO BID PRN Nausea And 06/11/23 12/16/23 Unknown History tablet (Compazine) Vomiting albuterol sulfate 90 mcg/actuation 2 inh inhalation Q4H PRN shortness 07/17/23 12/16/23 Unknown Rx aerosol inhaler of breath or wheezing #18 grams budesonide 0.5 mg/2 mL suspension 0.5 mg inhalation BID PRN 07/17/23 12/16/23 Unknown History for nebulization Shortness Of Breath Power chair repair #1 ea 07/30/23 12/16/23 Unknown Rx silver sulfadiazine 1 % topical 1 applic topical BID #20 grams 09/09/23 12/16/23 Unknown Rx cream (Silvadene) ketoconazole 2 % shampoo See Rx Instructions .Route 09/18/23 12/16/23 Unknown Rx .COMPLEX #120 mL furosemide 40 mg tablet 40 mg PO DAILY PRN Edema 10/26/23 12/16/23 Unknown History potassium chloride 20 mEq 20 meq PO DAILY PRN unknown 10/26/23 12/16/23 Unknown History tablet,extended release diazepam 5 mg tablet 5 mg PO QAM PRN anxiety #2 tabs 11/03/23 12/16/23 10/26/23 Rx see pharmacy comment lactulose 10 gram oral packet 10 g PO DAILY encephalopathy #15 ea 11/03/23 12/16/23 Unknown Rx apixaban 5 mg tablet (Eliquis) 5 mg PO BID@0900,2100 pulmonary 11/15/23 12/16/23 Unknown Rx embolism #60 tabs venlafaxine 150 mg 150 mg PO QAM #90 caps 12/12/23 12/16/23 Unknown Rx capsule,extended release 24 hr Methadone (Unknown Source) See Rx Instructions .Route .COMPLEX 12/16/23 12/16/23 Unknown History atenolol 100 mg tablet 100 mg PO BID 12/16/23 12/16/23 Unknown History gabapentin 300 mg capsule 300 mg PO TID 12/16/23 12/16/23 Unknown History metformin 500 mg tablet,extended 500 mg PO DAILY 12/16/23 12/16/23 Unknown History release 24 hr venlafaxine 75 mg capsule,extended 75 mg PO DAILY 12/16/23 12/16/23 Unknown History release 24 hr Allergies Allergy/AdvReac Type Severity Reaction Status Date / Time nalbuphine Allergy Unknown sick to Verified 10/07/23 09:01 stomach adhesive tape Allergy rash Verified 10/07/23 09:01 amitriptyline Allergy Unknown Verified 10/07/23 09:01 nitrofurantoin Allergy ADR-Vomitin Verified 10/07/23 09:01 [From Macrobid] g Sulfa (Sulfonamide Allergy Itch all Verified 10/07/23 09:01 Antibiotics) over PFSH Acute 2 PFSH: Medical History AMS (altered mental status) COPD (chronic obstructive pulmonary disease) Metabolic encephalopathy Degenerative joint disease of left knee Closed fracture of left distal femur Hypertension Closed femur fracture Venous stasis ulcer Cellulitis Diabetic neuropathy associated with type 2 diabetes mellitus Diastolic CHF Anemia Substance abuse Depression with anxiety Chronic pain History of DVT of lower extremity post-operative Hyperlipidemia Hypertension History of cardioversion history of SVT vs for other arrhythmia Methamphetamine use Diabetes mellitus, type II Ksvlums-Zzuvq-Ayzue disease-like deformity of foot right Lung cancer Torticollis, acquired Has had good results with Botox in the past Lumbar radiculopathy Cervical post-laminectomy syndrome Surgical History Status post above-knee amputation of right lower extremity Hx of neck surgery x 2, posterior laminectomy and cervical fusion with hardware in place, limited ROM neck at baseline Hx of total knee replacement (~2010) Right History of arthroplasty of left knee (~1976) History of partial hysterectomy Hx of dilation and curettage Hx of tubal ligation Hx of appendectomy Family History Family/Other Hypertension Depression Anxiety Diabetes Father Aneurysm Mother Hypertension Brother Diabetes Sister Diabetes Social History Smoking and tobacco/nicotine status: current every day tobacco/nicotine user Alcohol intake: never Substance/Drug Use: current Substance/Drug use frequency: few times a month Additional social history: unknown if patient continues to smoke, documented to smoke previously Marital status: Female Reproductive History: Spontaneous abortions: No Vitals/I&O/Wt Last Vital Signs Temp 98.2 F 12/16/23 15:23 Pulse 68 12/16/23 22:04 Resp 16 12/16/23 22:04 BP 105/48 12/16/23 22:04 Pulse Ox 93 12/16/23 22:04 O2 Del Method Room Air 12/16/23 15:23 12/16/23 12/16/23 12/16/23 06:59 14:59 22:59 Intake Total 1999 Balance 1999 Physical Exam 2 Const: COMMON NORMALS: no acute distress EXAM LIMITATIONS: altered mental status ORIENTATION/CONSCIOUSNESS: Yes awake and Yes confused; not oriented to person, not oriented to place and not oriented to time Eye: COMMON NORMALS: Equal, round and reactive pupils present Lymph: LYMPHATIC: no lymphadenopathy noted Resp: COMMON NORMALS: normal respiratory effort, No retractions, No use of accessory muscles and clear to auscultation bilaterally AUSCULTATION: clear to auscultation bilaterally Cardio: COMMON NORMALS: no JVD, regular rate, regular rhythm, S1 normal heart sound present and S2 normal heart sound present RATE: regular rate RHYTHM: regular rhythm HEART SOUNDS: S1 normal heart sound present and S2 normal heart sound present GI: COMMON NORMALS: Normal to inspection, nondistended, normoactive bowel sounds present, Soft to palpation and non-tender : COMMON NORMALS: Yes no CVA tenderness Extremity: NARRATIVE EXTREMITY EXAM: Right above-knee amputation Left lower extremity, multiple superficial diabetic ulcers throughout the left lal, left lower extremity, left heel, appear infected, erythematous, actively draining, foul-smelling Urinary Catheter Management: Garber: Cath Placed During This Visit: yes Reason for Continuing Indwelling Catheter: Accurate Measurement of Urinary Output in Critically Ill Patients Urinary Catheter Date of Insertion: 12/16/23 Data 12/16/23 14:44 12/16/23 19:19 A&P Assessment and plan (1) Acute encephalopathy: (2) Septic shock: (3) Left leg cellulitis: (4) Methamphetamine use: (5) Sepsis: Qualifiers: Sepsis acute organ dysfunction status: with acute organ dysfunction S epsis type: Streptococcus, other Severe sepsis acute organ dysfunction type: e ncephalopathy Severe sepsis shock status: without septic shock Qualified Code(s): A40.8 - Other streptococcal sepsis; R65.20 - Severe sepsis without septic shock; G93.41 - Metabolic encephalopathy (6) Metabolic acidosis: (7) Hypoalbuminemia: (8) Urinary tract infection: Qualifiers: Hematuria presence: with hematuria Urinary tract infection type: acute cystitis Qualified Code(s): N30.01 - Acute cystitis with hematuria (9) Hyperkalemia: Plan Acute encephalopathy -Likely sec to UTI, cellulitis, sepsis -Possible hepatic encephalopathy check ammonia levels will consider rectal lactulose -Aspiration precautions -Neurocheck -Ammonia levels, drug screen, alcohol level Sepsis, septic shock -Secondary to UTI, cellulitis -Evidence of septic shock due to low blood pressures MAP less than 65, creatinine 1.4, leukocytosis elevated CRP, Pro-Celio -IV albumin -Levophed maintain MAP greater than 65 Hypoalbuminemia -Poor nutrition -IV albumin Urinary tract infection ? KERRY 1.4 CT scan abdomen pelvis ? Zosyn -Vancomycin Left leg cellulitis -During her last hospitalizations there was concerns for severe left lower extremity cellulitis, deep tissue infection with consideration of left below- knee amputation -Order CT scan left lower extremity -ESR is 125, CRP 289, Pro-Celio 11 -Blood cultures -Vancomycin, Zosyn Hyperkalemia -10 units IV push insulin, D50 Hyponatremia, monitor Acute kidney injury, dehydration, IV fluids Type 2 diabetes mellitus, low-dose sliding scale History of hepatic encephalopathy, ammonia levels pending History of PE, cannot take Eliquis due to altered mental status started on heparin drip Attestations 2 Medical Necessity Statement*: Patient requires hospitalization, inpatient, greater than 2 midnights, for sepsis, septic shock, UTI, left lower extremity cellulitis, encephalopathy, KERRY, hypoalbuminemia, Diagnoses Acute encephalopathy G93.40 Septic shock A41.9; R65.21 Left leg cellulitis L03.116 Methamphetamine use F15.10 Sepsis due to other Streptococcus species with encephalopathy without septic shock A40.8; R65.20; G93.41 Sepsis acute organ dysfunction status: with acute organ dysfunction Sepsis type: Streptococcus, other Severe sepsis acute organ dysfunction type: encephalopathy Severe sepsis shock status: without septic shock Metabolic acidosis E87.20 Hypoalbuminemia E88.09 Urinary tract infection N30.01 Hematuria presence: with hematuria Urinary tract infection type: acute cystitis Hyperkalemia E87.5
[2023-12-16 22:40] LABS: Estmated Average Glucose 160; Hemoglobin A1C 7.2 % (4.0-6.0)
[2023-12-16 23:00] LABS: Troponin(5th) Baseline 39 ng/L (0-10)
--- NOTE | 2023-12-16 23:01 | ECG_ITS ---
[facility] Test Date: 2023-12-16 Pat Name: Polina Snyder Department: Room: [facility]03 Gender: Female Security Coordinator: : 1960 Requested By: Jose Tapia Order Number: [id number] Rosalba MD: Gil Ramos M.D. Measurements Intervals [place] Rate: 62 P: 45 PA: 139 QRS: 11 QRSD: 92 T: 45 QT: 420 QTc: 430 Interpretive Statements SINUS RHYTHM WITH SHORT PA INTERVAL LOW QRS VOLTAGE IN PRECORDIAL LEADS [QRS DEFLECTION < 1.0 mV IN CHEST LEADS] Compared to ECG 11/01/2023 09:19:28 Low QRS voltage now present ST (T wave) deviation no longer present Prolonged QT interval no longer present Electronically Signed On 12-17-2023 18:31:28 SHEARING SUPERVISOR by Gil Ramos M.D. [id number]
[2023-12-16 23:11] LABS: Chol HDL Ratio 8.46 mg/dL (0.0-4.40); Cholesterol 110 mg/dL (0-200); Creatine Phosphokinase 74 U/L (26-192); HDL Cholesterol 13 mg/dL (60-100); LDL Cholesterol Calculated 45 mg/dL (50-129); LDL HDL Ratio 3.46 RATIO (0.00-3.22); NT Pro B Type Natriuretic Pept 4626 pg/mL (0-125); Thyroid Stimulating Hormone 5.41 uIU/mL (0.27-4.20); Triglycerides 260 mg/dL (0-150)
[2023-12-16 23:18] LABS: ABG PCO2 30.7 mmHg (35-45); ABG PH Result 7.36 (7.35-7.45); Arterial Blood Gas Hematocrit 30.2 % (37-47); Base Excess ABG -7.4 mmol/L (-2.0-2.0); Blood Gas Operator Identificat JB; Blood Gas Sample Site Brachial, right; Blood Gas Sample Type Arterial; HCO3 ABG 17.2 mmol/L (22-26); Oxygen Device ROOM AIR; PO2 ABG 75.5 mmHg (80.0-100.0)
[2023-12-16] MEDS: dextrose 50% syringe 50 mL IVP (23:31)
[2023-12-16] MEDS: insulin regular-human 10 UNIT in SYRINGE 1 EACH IVP (23:32)
[2023-12-16] MEDS: norepinephrine 4 MG/250 ML BAG 7.5 MG IV (23:33)
[2023-12-16] MEDS: pantoprazole 40 mg SDV IVP (23:33)
[2023-12-16] MEDS: albumin 25 G/100 ML BAG 60 G IV (23:33)
[2023-12-17] VITALS (175 sets, daily range): BP systolic 83–148; BP diastolic 31–86; PULSE 63–89; RESP 17–27; TEMP 36.3–36.8; O2SAT 66–100
--- NOTE | 2023-12-17 | XR_ITS ---
WS: [id number] CHEST XRAY TECHNIQUE: Portable chest. CLINICAL INFORMATION: PICC LINE COMPARISON: Earlier today FINDINGS: PICC line repositioning with tip in the distal SVC. No pneumothorax. No other significant changes fro m previous. IMPRESSION: See above
[2023-12-17 00:19] LABS: Glucose Point of Care 173 mg/dL (70-110)
[2023-12-17 00:19] LABS: Glucose Point of Care 264 mg/dL (70-110)
[2023-12-17] MEDS: heparin drip 25,000 UNIT/500 ML PREMIX 21 UNIT IV (01:04)
[2023-12-17] MEDS: sodium chloride 0.9% 1,000 ML 50 ML IV ×2 (01:07→21:27)
[2023-12-17] MEDS: vancomycin 1,500 MG/300 ML PIGGYBACK 200 MG IV (01:08)
[2023-12-17 01:22] LABS: Troponin 5 2HR 37.11 ng/L (0-10); Troponin 5 2HR Delta -1.89 ABS# (0-10)
[2023-12-17 01:25] LABS: Ammonia 27 umol/L (11-51)
[2023-12-17 01:34] LABS: Alcohol Level < 10 mg/dL (0-10)
--- NOTE | 2023-12-17 02:27 | PC.NURSE ---
Patient arrived to ICU from ED via rney at 2225, Patient was lethargic with MAP in the 50's, Dr. Tapia notified, orders for Levophed given.
--- NOTE | 2023-12-17 03:41 | ECG_ITS ---
[facility] Test Date: 2023-12-17 Pat Name: Polina Snyder Department: Room: [facility]03 Gender: Female Ragman: : 1960 Requested By: Jose Tapia Order Number: [id number] Rosalba MD: Gil Ramos M.D. Measurements Intervals [place] Rate: 68 P: 49 CO: 123 QRS: 15 QRSD: 112 T: 51 QT: 416 QTc: 442 Interpretive Statements SINUS RHYTHM MODERATE INTRAVENTRICULAR CONDUCTION DELAY [110+ ms QRS DURATION] Compared to ECG 12/16/2023 23:01:22 Intraventricular conduction delay now present Electronically Signed On 12-17-2023 18:34:13 PRIMARY CARE PEDIATRICIAN by Gil Ramos M.D. [id number]
[2023-12-17 04:21] LABS: Amphetamines Screen Urine Positive (Negative); Barbiturates Screen Urine Negative (Negative); Benzodiazepines Screen Urine Positive (Negative); Cocaine Screen Urine Negative (Negative); Opiate Screen Urine Negative (Negative); PCP Screen Urine Negative (Negative); THC Screen Urine Negative (Negative)
--- NOTE | 2023-12-17 05:12 | PC.NURSE ---
Patient home meds stored in [employer], sealed with tamper tape. These medications include: -Potassium, eliquis, Aspirin in unmarked container, gabapentin, promethazine, furosemide, buspirone, baclofen, atenolol, naproxen, prochlorperazine, probiotic, metformin, fenofibrate, venlafaxine, protonix, sucralfate, temazepam 10 capsules, and diazepam 1 pill count witnessed by Cathy Graff RN
[2023-12-17] MEDS: piperacillin-tazobactam 3.375 GM in sodium chloride 0.9% (plus) 50 ML IV ×3 (05:27→21:27)
[2023-12-17] MEDS: albumin 25 G/100 ML BAG 60 G IV ×3 (05:30→21:28)
[2023-12-17 06:01] LABS: Glucose Point of Care 165 mg/dL (70-110)
[2023-12-17 07:21] LABS: Eosinophils # 0.2 10^3/uL (0.0-0.8); Eosinophils % 0.4 %; Hematocrit 33.6 % (36-47); Lymphocytes # 1.5 10^3/uL (0.8-4.8); Lymphocytes % 2.8 %; Mean Corpuscular HGB Conc 31.3 g/dL (30-55); Mean Corpuscular Hemoglobin 28.2 pg (27-33); Mean Corpuscular Volume 90.3 fl (85-98); Mean Platelet Volume 9.6 fL (7.4-10.4); Monocytes # 0.9 10^3/uL (0.2-0.9); Monocytes % 1.6 %; Neutrophils # 50.36 10^3/uL (1.8-7.7); Neutrophils % 91.2 %; Nucleated Red Blood Cells % 0 %; Platelet Count 530 10^3/cmm (157-399); Red Blood Count 3.72 10^6/uL (3.85-5.65); Red Cell Distribution Width 18.4 % (12.1-15.1)
[2023-12-17 07:38] LABS: Alanine Aminotransferase 10 U/L (0-33); Albumin Level 1.9 g/dL (3.5-5.2); Alkaline Phosphatase 196 U/L (35-105); Blood Urea Nitrogen 63 mg/dL (8-23); Calcium 9.3 mg/dL (8.5-10.5); Carbon Dioxide 14 mmol/L (22-29); Chloride 102 mmol/L (98-107); Globulin 4.8 g/dL (1.3-4.6); Glomerular Filtration Rate 41.4 mL/min (90-130); Glucose 178 mg/dL (65-115); Magnesium 1.8 mg/dL (1.7-2.3); Osmolality Calculated 296 mOsm/kg (285-295); Phosphorus 3.9 mg/dL (2.5-4.5); Sodium 132 mmol/L (136-145); Total Bilirubin 1.2 mg/dL (0.15-1.2); Total Protein 6.7 g/dL (6.6-8.7)
[2023-12-17 07:40] LABS: Anion Gap 21.6 (5-19); Aspartate Amino Transferase 21 U/L (0-32); Potassium 5.6 mmol/L (3.5-5.1)
[2023-12-17 08:05] LABS: White Blood Count 55.24 10^3/uL (3.29-11.43)
[2023-12-17] MEDS: insulin lispro 100 unit/1 mL SUBCUT ×2 (08:06→11:31)
--- NOTE | 2023-12-17 08:06 | XR_ITS ---
WS: [id number] CHEST XRAY TECHNIQUE: Portable chest. CLINICAL INFORMATION: post picc insertion COMPARISON: 12/16/2023 FINDINGS: RIGHT PICC line with tip in the RIGHT atrium. Recommend retraction 3.0 cm for optimal distal SVC plac ement. Otherwise no changes compared to previous. No pneumothorax. IMPRESSION: RIGHT PICC line with tip in the RIGHT atrium. Recommend retraction 3.0 cm for optimal distal SVC pl acement.
[2023-12-17 08:09] LABS: Slide Review Slide Review Perform
--- NOTE | 2023-12-17 09:00 | PC.NURSE ---
Triple lumen PICC placed to right basilic. Referred to vascular access nurse due to poor access and need for vasopressors. Pt not alert or oriented. Spoke to life partner, Milad, via phone. Risks and benefits discussed and informed consent obtained from Milda. Right arm assessed with right basilic vein straight and apparent best choice for placement. Using sterile technique and MST, right basilic vein accessed x 1 stick. Mid-arm circumference measured 10 cm from right AC 28 cm. Trimmed cath originally 47 cm. First CXR showed tip in right atrium with recommendation from radiologist to retract 3 cm. Catheter removed and trimmed 3 cm for 44 cm total length. Follow-up CXR shows tip in distal SVC, in good postion for use per radiologist. No external length noted. Line secured with stat-lock. Insertion site covered with gauze and due to be changed 12/18/23. Report given to bedside nurseNixon.
[2023-12-17 10:07] LABS: Partial Thromboplastin Time 37.7 SECONDS (23.9-36.7)
[2023-12-17 11:00] LABS: Glucose Point of Care 155 mg/dL (70-110)
[2023-12-17 11:00] LABS: Glucose Point of Care 180 mg/dL (70-110)
[2023-12-17] MEDS: norepinephrine 4 MG/250 ML BAG 7.5 MG IV (14:17)
[2023-12-17 15:11] LABS: Blood Urea Nitrogen 54 mg/dL (8-23); Calcium 9.1 mg/dL (8.5-10.5); Carbon Dioxide 17 mmol/L (22-29); Chloride 104 mmol/L (98-107); Glomerular Filtration Rate 50.2 mL/min (90-130); Glucose 121 mg/dL (65-115); Osmolality Calculated 298 mOsm/kg (285-295); Sodium 136 mmol/L (136-145)
[2023-12-17 15:27] LABS: Anion Gap 20.3 (5-19); Potassium 5.3 mmol/L (3.5-5.1)
[2023-12-17 17:25] LABS: Glucose Point of Care 127 mg/dL (70-110)
--- NOTE | 2023-12-17 19:15 | P.PN_ITS ---
Subjective 2 Subjective: Not alert to answer questions or provide history. Vitals/I&O/Wt Last Vital Signs Temp 98.2 F 12/17/23 16:07 Pulse 82 12/17/23 17:02 Resp 21 H 12/17/23 16:07 BP 97/45 12/17/23 16:07 Pulse Ox 98 12/17/23 15:50 O2 Del Method Room Air 12/16/23 22:34 12/17/23 12/17/23 12/17/23 06:59 14:59 22:59 Intake Total 459.725 / 2459.725 555.925 / 555.925 317.675 / 873.600 Output Total 750 / 750 275 / 275 450 / 725 Balance -290.275 / 1709.725 280.925 / 280.925 -132.325 / 148.600 Weight last 48 hrs Weight 76.5 kg Weight 76.5 kg Physical Exam 2 Const: GENERAL APPEARANCE: lethargic (Responds to pain.) O RIENTATION/CONSCIOUSNESS: Yes lethargic (Responds to pain.) HENMT: COMMON NORMALS: oropharynx normal Neck/C-Spine: COMMON NORMALS: no JVD Resp: COMMON NORMALS: normal respiratory effort and clear to auscultation bilaterally AUSCULTATION: clear to auscultation bilaterally Cardio: COMMON NORMALS: no JVD, regular rhythm, S1 normal heart sound present, S2 normal heart sound present and No murmurs present (Cardio) RHYTHM: regular rhythm HEART SOUNDS: S1 normal heart sound present and S2 normal heart sound present GI: COMMON NORMALS: Normal to inspection, nondistended, normoactive bowel sounds present, Soft to palpation and non-tender PALPATION: Yes Soft to palpation Extremity: OTHER: R AKA Neuro: SENSORIUM/ORIENTATION: Yes lethargic (Responds to pain.) Skin: NARRATIVE SKIN EXAM: Diffuse erythema, show ulcerations, mild weeping with blister ration of left lower extremity from dorsal foot to about three quarters of the way up the lower leg. Urinary Catheter Management: Garber: Cath Placed During This Visit: yes Reason for Continuing Indwelling Catheter: Accurate Measurement of Urinary Output in Critically Ill Patients Urinary Catheter Date of Insertion: 12/16/23 Data 12/17/23 07:00 12/17/23 13:24 A&P Assessment and plan (1) Acute encephalopathy: (2) Septic shock: (3) Left leg cellulitis: (4) Methamphetamine use: (5) Sepsis: Qualifiers: Sepsis type: Streptococcus, other Sepsis acute organ dysfunction status: with acute organ dysfunction Severe sepsis acute organ dysfunction type: encephalopathy Severe sepsis shock status: without septic shock Qualified Code(s): A40.8 - Other streptococcal sepsis; R65.20 - Severe sepsis without septic shock; G93.41 - Metabolic encephalopathy (6) Metabolic acidosis: (7) Hypoalbuminemia: (8) Urinary tract infection: Qualifiers: Hematuria presence: with hematuria Urinary tract infection type: acute cystitis Qualified Code(s): N30.01 - Acute cystitis with hematuria (9) Hyperkalemia: Plan Acute encephalopathy: With history of recurrent encephalopathy including during prior admission. Reviewed vitals, CBC, CMP, ammonia level, troponin series, urinalysis, urine drug screen. Continue treatment of cellulitis/soft tissue infection of left lower extremity and UTI. Monitor for any diarrhea with noted leukocytosis, recent antibiotics. Renal function noted to be improving. Blood pressure improving, weaning off pressor. Mental status without improvement so far. Noted positive for amphetamine on urine drug screen. No leukocytosis resolved during last admission. Hold off potential contributing medications. Maintain seizure precautions. Reviewing imaging studies she additionally has also received CT abdomen pelvis in addition to CT lower extremity, which is also showing interval development of dense collection surrounding left hip extending anterior lateral and posterior to the left hip joint. No liquefied center. Unclear etiology, possibility of hematoma, abscess not excluded. Given sepsis, septic shock, possibility of abscess is considered. Discussed with orthopedics, requesting aspiration of collection for further assessment. Appreciate their consultation. Last admission she was treated for lower extremity infection, she was it sounds like fairly adamant about not having amputation. Discussed with her significant other, he confirms that she has really been wanting to defer amputation, has not wanted, did not want to come to the hospital last time in the first place as well. 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 He does state that she was also found on the floor yesterday, he states that she frequently repositions in bed due to the pain, but will not allow the family to raise the guardrails, and when coming to check on her he found that she was on the floor perpendicular to the bed. Did not seem to complain of pain or discomfort at the time. Discussed with him findings on CT, discussed consideration of collection of unknown etiology, possibility of hematoma versus abscess versus hematoma turning into abscess. As per discussion for now we are going to hold on further heparin drip due to concern for possible hematoma. Risk of further bleeding. We did discuss risk of DVT. There is no good place to place SCDs. We will reassess blood counts, further consideration depending on condition, findings of whether may tolerate some prophylactic anticoagulation. Has history of DVT in the past, this was a while back per report. Reviewing prior studies venous duplex back in both May and June [address] was negative for DVT. CT abdomen pelvis additionally with left lower lobe opacification, pneumonia versus atelectasis. Incidentally also noted abnormal left hip joint, advanced degenerative changes. Synovial thickening. Prior intramedullary rodding of left femur. Weaning off of pressors. Continue albumin infusions for now, reviewed albumin overload. Currently NPO. Continue gentle IV hydration. Monitor vitals. Sepsis, septic shock As above. Hypoalbuminemia -Poor nutrition -IV albumin Urinary tract infection: Reviewed CT, no obstructive uropathy noted. Continue empiric antibiotic coverage. ? KERRY 1.4 CT scan abdomen pelvis ? Zosyn -Vancomycin Left leg cellulitis and soft tissue infection: Will need to revisit again regarding consideration of amputation given extent and lack of improvement in cellulitis. Per significant other it seems that she did take antibiotics after discharge, although he is not entirely sure. It seems she was rather adamant about not having amputation. -Blood cultures -Vancomycin, Zosyn Hyperkalemia -10 units IV push insulin, D50 Hyponatremia, monitor Acute kidney injury, dehydration, IV fluids Type 2 diabetes mellitus, low-dose sliding scale History of hepatic encephalopathy, ammonia levels pending History of PE, cannot take Eliquis due to altered mental status, hold heparin drip Attestations 2 Medical Necessity Statement*: Continue admission for assessment management of sepsis, septic shock, acute encephalopathy, UTI, left lower extremity cellulitis/soft tissue infection, collection around left hip, possible hematoma versus abscess. Coding Level of Care Code Critical Care >/= 30 minutes Critical care time (in minutes): 40 The high probability of a clinically significant, sudden or life threatening deterioration, as referenced in this documentation, required my full and direct attention, intervention and personal management. The critical care time shown is in addition to time spent performing any reported separately billable procedures and includes the following: [x] Data and vital sign review and interpretation [x ] Patient assessment, examination and intervention [x] Medication orders and management [x] Patient/Family updates as able [x] Care Coordination and Documentation. Diagnoses Acute encephalopathy G93.40 Septic shock A41.9; R65.21 Left leg cellulitis L03.116 Methamphetamine use F15.10 Sepsis due to other Streptococcus species with encephalopathy without septic shock A40.8; R65.20; G93.41 Sepsis type: Streptococcus, other Sepsis acute organ dysfunction status: with acute organ dysfunction Severe sepsis acute organ dysfunction type: encephalopathy Severe sepsis shock status: without septic shock Metabolic acidosis E87.20 Hypoalbuminemia E88.09 Urinary tract infection N30.01 Hematuria presence: with hematuria Urinary tract infection type: acute cystitis Hyperkalemia E87.5
[2023-12-17] MEDS: pantoprazole 40 mg SDV IVP (21:29)
--- NOTE | 2023-12-17 21:56 | CT_ITS ---
WS: [id number] CT ABDOMEN AND PELVIS NONCONTRAST HISTORY: ams, uti, TECHNIQUE: Imaging performed through the abdomen and pelvis. Coronal and sagittal reformats are submi tted. All CT scans at [facility] use at least one of these dose optimization techniques: auto mated exposure control; mA and/or kV adjustment per patient size (includes targeted exams where dose is matched to clinical indication); or iterative reconstruction. DLP: 1086.11 mGy.cm COMPARISON: 10/29/2023 Lower thorax: Dependent changes at the lung bases. Liver: Normal size liver. No mass or bile duct dilatation. Gallbladder: Normal gallbladder. No pericholecystic fluid or cholelithiasis. No gallbladder wall thic kening. Pancreas: Normal size and attenuation. Normal pancreatic duct. No pancreatitis or mass. Spleen: Normal. Adrenal glands: Normal. No mass. Right kidney: Normal size kidney with no mass or hydronephrosis. Left kidney: Normal size kidney with no mass or hydronephrosis. Aorta: Mild atherosclerosis abdominal aorta with no aneurysm. No free fluid, intraperitoneal air or significant lymphadenopathy. GI tract: Normal noncontrast imaging of the stomach, small bowel and colon. No obstruction or wall th ickening. Normal appendix. Abdominal wall: Negative. No hernia. Pelvis: There is severe muscle atrophy. Mild soft tissue anasarca. There is a large dense collection centered surrounding the LEFT hip. Collection begins over the superior lateral LEFT ilium and extends inferiorly to encase the anterior and posterior soft tissues surrounding the LEFT hip. This collecti on was not present on the prior study. This is a very dense collection and may be a hematoma. There i s no liquefied center. There is an abnormal LEFT hip. Advanced degenerative changes of the LEFT hip j oint with synovial thickening. Osseous structures: Severe thoracolumbar scoliosis. L4 anterolisthesis by 6 mm. IMPRESSION: 1. Interval development of dense collection surrounding the LEFT hip extending both anterior lateral and posterior to the LEFT hip joint. This is predominant subcu soft tissue. No liquefied center. Thi s may be a hematoma. Abscess not excluded. There was mild subcutaneous stranding on the prior study w hich is significantly progressed. 2. Abnormal LEFT hip joint. Advanced degenerative changes with synovial thickening. 3. No renal obstruction. 4. Severe muscle atrophy. 5. LEFT lower lobe opacifications, pneumonia versus atelectasis.
--- NOTE | 2023-12-17 21:56 | CT_ITS ---
WS: [id number] CT LEFT LOWER EXTREMITY, NONCONTRAST. HISTORY: Cellulitis. Technique: All CT scans at [facility] use at least one of these dose optimization techniques: automated exposure control; mA and/or kV adjustment per patient size (includes targeted exams where dose is matched to clinical indication); or iterative reconstruction. DLP: 659.42 mGy.cm COMPARISON: 10/26/2023 Imaging is performed of the entire LEFT lower extremity beginning at the proximal thigh extending to the ankle. There is diffuse soft tissue edema both superficial and within the deep compartments. Ther e is severe muscle atrophy. The extent of the subcutaneous infiltration has improved slightly since t he prior study from 10/26/2023. No definite focal ulcerations are identified. Severe degenerative changes at the knee joint. Loss of the normal joint spaces with orthopedic screws and a long intramedullary radha identified within the femur. IMPRESSION: 1. Diffuse soft tissue infiltration throughout the superficial and deep compartments of the LEFT low er extremity. There is no focal collection or abscess identified on this unenhanced exam. This may be edema or cellulitis. 2. Severe muscle atrophy. 3. Severe degenerative changes at the knee joint. 4. Prior intramedullary rodding LEFT femur.
[2023-12-17 22:19] LABS: Partial Thromboplastin Time 47.6 SECONDS (23.9-36.7)
[2023-12-17] MEDS: vancomycin 1,250 MG/250 ML PIGGYBACK 250 MG IV (23:32)
[2023-12-18] VITALS (67 sets, daily range): BP systolic 98–168; BP diastolic 50–96; PULSE 82–110; RESP 14–27; TEMP 36.5–36.9; O2SAT 83–97
[2023-12-18 05:26] LABS: Basophils # 0.2 10^3/uL (0.0-0.1); Basophils % 0.4 %; Eosinophils # 0.3 10^3/uL (0.0-0.8); Eosinophils % 0.6 %; Hematocrit 22.9 % (36-47); Lymphocytes # 0.8 10^3/uL (0.8-4.8); Lymphocytes % 1.9 %; Mean Corpuscular HGB Conc 31.4 g/dL (30-55); Mean Corpuscular Hemoglobin 28.5 pg (27-33); Mean Corpuscular Volume 90.5 fl (85-98); Mean Platelet Volume 9.6 fL (7.4-10.4); Monocytes # 0.5 10^3/uL (0.2-0.9); Monocytes % 1.2 %; Neutrophils # 37.88 10^3/uL (1.8-7.7); Neutrophils % 91.2 %; Nucleated Red Blood Cells % 0 %; Platelet Count 368 10^3/cmm (157-399); Red Blood Count 2.53 10^6/uL (3.85-5.65); Red Cell Distribution Width 18.6 % (12.1-15.1)
[2023-12-18 05:43] LABS: Slide Review Slide Review Perform
[2023-12-18 05:44] LABS: White Blood Count 41.52 10^3/uL (3.29-11.43)
[2023-12-18] MEDS: piperacillin-tazobactam 3.375 GM in sodium chloride 0.9% (plus) 50 ML IV ×3 (05:44→22:15)
[2023-12-18] MEDS: albumin 25 G/100 ML BAG 60 G IV (05:44)
[2023-12-18 05:51] LABS: Alanine Aminotransferase 10 U/L (0-33); Albumin Level 2.8 g/dL (3.5-5.2); Alkaline Phosphatase 161 U/L (35-105); Anion Gap 20.6 (5-19); Aspartate Amino Transferase 17 U/L (0-32); Blood Urea Nitrogen 44 mg/dL (8-23); Calcium 9.3 mg/dL (8.5-10.5); Carbon Dioxide 17 mmol/L (22-29); Chloride 110 mmol/L (98-107); Globulin 3.5 g/dL (1.3-4.6); Glomerular Filtration Rate 72.4 mL/min (90-130); Glucose 126 mg/dL (65-115); Magnesium 1.7 mg/dL (1.7-2.3); Osmolality Calculated 311 mOsm/kg (285-295); Potassium 3.6 mmol/L (3.5-5.1); Sodium 144 mmol/L (136-145); Total Bilirubin 1.7 mg/dL (0.15-1.2); Total Protein 6.3 g/dL (6.6-8.7)
[2023-12-18] MEDS: insulin lispro 100 unit/1 mL SUBCUT ×3 (08:49→17:36)
[2023-12-18 08:50] LABS: Basophils # 0.2 10^3/uL (0.0-0.1); Basophils % 0.4 %; Eosinophils # 0.2 10^3/uL (0.0-0.8); Eosinophils % 0.5 %; Lymphocytes # 0.6 10^3/uL (0.8-4.8); Lymphocytes % 1.7 %; Mean Corpuscular HGB Conc 31.2 g/dL (30-55); Mean Platelet Volume 9.2 fL (7.4-10.4); Monocytes # 0.5 10^3/uL (0.2-0.9); Monocytes % 1.3 %; Neutrophils # 34.54 10^3/uL (1.8-7.7); Neutrophils % 91.2 %; Nucleated Red Blood Cells % 0 %; Platelet Count 350 10^3/cmm (157-399); Red Blood Count 2.14 10^6/uL (3.85-5.65); Red Cell Distribution Width 18.7 % (12.1-15.1)
[2023-12-18 09:27] LABS: Glucose Point of Care 151 mg/dL (70-110)
[2023-12-18 09:48] LABS: Hematocrit 19.9 % (36-47); White Blood Count 37.92 10^3/uL (3.29-11.43)
[2023-12-18 09:51] LABS: Slide Review Slide Review Perform
[2023-12-18] MEDS: magnesium sulfate premix 2 GM/50 ML PIGGYBACK IV (10:03)
[2023-12-18 11:32] LABS: Glucose Point of Care 141 mg/dL (70-110)
--- NOTE | 2023-12-18 11:32 | PM.CONSULT ---
Providers/Reason For Consult Consulting Physician/Specialty*: Hospitalist Reason for Consult*: Fluid collection left hip Attending Physician: Brian Mccauley Primary Care Provider: Wilner Hdez DO History of Present Illness History of Present Illness Polina Snyder is a 63 year old female who is currently being treated for foot infection. I have been consulted prior for possible amputation. However patient does not want an amputation. At this point she was found down and has a fluid collection around her hip. I had recommended to do ultrasound-guided aspiration. Which they did and per the nurse today the dental technologist felt this was a hematoma. Will await the report. With her history of being found down she may have fallen and landed on her hip causing hematoma. Review of Systems Narrative: Patient not alert to get a review of systems Medications/Allergies Home Medications Medication Instructions Recorded Confirmed Last Taken Type Nubia Lift #1 ea 12/25/22 12/16/23 Unknown Rx Hospital bed #1 ea 03/22/23 12/16/23 Unknown Rx fenofibrate micronized 200 mg 200 mg PO BEDTIME 06/11/23 12/16/23 10/25/23 History capsule pantoprazole 40 mg tablet,delayed 40 mg PO BID 06/11/23 12/16/23 10/26/23 History release prochlorperazine maleate 10 mg 10 mg PO BID PRN Nausea And 06/11/23 12/16/23 Unknown History tablet (Compazine) Vomiting albuterol sulfate 90 mcg/actuation 2 inh inhalation Q4H PRN shortness 07/17/23 12/16/23 Unknown Rx aerosol inhaler of breath or wheezing #18 grams budesonide 0.5 mg/2 mL suspension 0.5 mg inhalation BID PRN 07/17/23 12/16/23 Unknown History for nebulization Shortness Of Breath Power chair repair #1 ea 07/30/23 12/16/23 Unknown Rx silver sulfadiazine 1 % topical 1 applic topical BID #20 grams 09/09/23 12/16/23 Unknown Rx cream (Silvadene) ketoconazole 2 % shampoo See Rx Instructions .Route 09/18/23 12/16/23 Unknown Rx .COMPLEX #120 mL furosemide 40 mg tablet 40 mg PO DAILY PRN Edema 10/26/23 12/16/23 Unknown History potassium chloride 20 mEq 20 meq PO DAILY PRN unknown 10/26/23 12/16/23 Unknown History tablet,extended release diazepam 5 mg tablet 5 mg PO QAM PRN anxiety #2 tabs 11/03/23 12/16/23 10/26/23 Rx see pharmacy comment lactulose 10 gram oral packet 10 g PO DAILY encephalopathy #15 ea 11/03/23 12/16/23 Unknown Rx apixaban 5 mg tablet (Eliquis) 5 mg PO BID@0900,2100 pulmonary 11/15/23 12/16/23 Unknown Rx embolism #60 tabs venlafaxine 150 mg 150 mg PO QAM #90 caps 12/12/23 12/16/23 Unknown Rx capsule,extended release 24 hr Methadone (Unknown Source) See Rx Instructions .Route .COMPLEX 12/16/23 12/16/23 Unknown History atenolol 100 mg tablet 100 mg PO BID 12/16/23 12/16/23 Unknown History gabapentin 300 mg capsule 300 mg PO TID 12/16/23 12/16/23 Unknown History metformin 500 mg tablet,extended 500 mg PO DAILY 12/16/23 12/16/23 Unknown History release 24 hr venlafaxine 75 mg capsule,extended 75 mg PO DAILY 12/16/23 12/16/23 Unknown History release 24 hr Allergies Allergy/AdvReac Type Severity Reaction Status Date / Time nalbuphine Allergy Unknown sick to Verified 10/07/23 09:01 stomach adhesive tape Allergy rash Verified 10/07/23 09:01 amitriptyline Allergy Unknown Verified 10/07/23 09:01 nitrofurantoin Allergy ADR-Vomitin Verified 10/07/23 09:01 [From Macrobid] g Sulfa (Sulfonamide Allergy Itch all Verified 10/07/23 09:01 Antibiotics) over Current Medications Generic Name Dose Route Start Last Admin Trade Name Freq PRN Reason Stop Dose Admin Albumin Human 25 g in 100 mls @ 60 mls/hr 12/16/23 22:00 12/18/23 05:44 Albumin IV 60 mls/hr Q8H RANJIT Administration Heparin Sodium/Sodium Chloride 25,000 unit in 500 mls @ 0 mls/hr 12/16/23 22:00 12/17/23 16:59 Heparin Drip IV 17.65 unit/kg/hr .Q0M RANJIT 27 mls/hr Titration Protocol Per Protocol Sodium Chloride 1,000 mls @ 30 mls/hr 12/16/23 22:15 12/17/23 21:27 Sodium Chloride 0.9% IV 50 mls/hr .Q24H RANJIT Administration norepinephrine 4 mg in 250 mls @ 0 mls/hr 12/16/23 23:00 12/17/23 16:00 Levophed IV 0 mcg/min .Q0M RANJIT 0 mls/hr Titration Protocol Per Protocol Piperacillin Sod/Tazobactam 50 mls @ 12.5 mls/hr 12/17/23 05:00 12/18/23 05:44 Sod 3.375 gm/ Sodium Chloride IV 12.5 mls/hr Q8H RANJIT Administration Vancomycin/PEG/NADA/Lysine/Water 1,250 mg in 250 mls @ 250 mls/hr 12/17/23 23:00 12/18/23 00:38 Vancocin IV Infused Q24H RANJIT Infusion Insulin Human Lispro 0 unit 12/17/23 08:00 12/18/23 08:49 Insulin Lispro 100 Unit/1 Ml SUBCUT 2 unit TIDWM RANJIT Administration Protocol Pantoprazole Sodium 40 mg 12/16/23 22:15 12/17/23 21:29 Pantoprazole 40 Mg Sdv IVP 40 mg Q24H RANJIT Administration PFSH Acute PFSH: Medical History AMS (altered mental status) COPD (chronic obstructive pulmonary disease) Metabolic encephalopathy Degenerative joint disease of left knee Closed fracture of left distal femur Hypertension Closed femur fracture Venous stasis ulcer Cellulitis Diabetic neuropathy associated with type 2 diabetes mellitus Diastolic CHF Anemia Substance abuse Depression with anxiety Chronic pain History of DVT of lower extremity post-operative Hyperlipidemia Hypertension History of cardioversion history of SVT vs for other arrhythmia Methamphetamine use Diabetes mellitus, type II Jwuvigw-Ufsyh-Viqjl disease-like deformity of foot right Lung cancer Torticollis, acquired Has had good results with Botox in the past Lumbar radiculopathy Cervical post-laminectomy syndrome Surgical History Status post above-knee amputation of right lower extremity Hx of neck surgery x 2, posterior laminectomy and cervical fusion with hardware in place, limited ROM neck at baseline Hx of total knee replacement (~2010) Right History of arthroplasty of left knee (~1976) History of partial hysterectomy Hx of dilation and curettage Hx of tubal ligation Hx of appendectomy Family History Family/Other Hypertension Depression Anxiety Diabetes Father Aneurysm Mother Hypertension Brother Diabetes Sister Diabetes Social History Smoking and tobacco/nicotine status: current every day tobacco/nicotine user Alcohol intake: never Substance/Drug Use: current Substance/Drug use frequency: few times a month Additional social history: unknown if patient continues to smoke, documented to smoke previously Marital status: Female Reproductive History: Spontaneous abortions: No Vitals/I&O/Wt Last Vital Signs Temp 97.7 F 12/18/23 11:19 Pulse 91 12/18/23 11:19 Resp 22 H 12/18/23 11:19 BP 131/70 12/18/23 11:19 Pulse Ox 93 12/18/23 08:45 O2 Del Method Room Air 12/16/23 22:34 12/17/23 12/18/23 12/18/23 22:59 06:59 14:59 Intake Total 1317.675 / 1873.600 400 / 2273.600 0 / 0 Output Total 450 / 725 900 / 1625 Balance 867.675 / 1148.600 -500 / 648.600 0 / 0 Weight last 48 hrs Weight 169 lb 8 oz Weight 168 lb 10.458 oz Weight 168 lb 10.458 oz Physical Exam Narrative: Open wounds on left leg Urinary Catheter Management: Garber: Cath Placed During This Visit: yes Reason for Continuing Indwelling Catheter: Accurate Measurement of Urinary Output in Critically Ill Patients Urinary Catheter Date of Insertion: 12/16/23 Data 12/18/23 08:35 12/18/23 05:20 Micro: Microbiology 12/16/23 18:01 Urine Culture - Preliminary Urine,Clean Catch Gram Negative Rods A&P Assessment and plan (1) Hematoma and contusion: Sounds more likely a left hip hematoma. At this point we will await results of cultures. Coding Level of Care Code Acute Code for [facility] Fwd Diagnoses Hematoma and contusion T14.8XXA
--- NOTE | 2023-12-18 12:55 | PC.SOCIAL ---
IMM Update pg 2 of IMM left @ bedside. Patient is still very lethargic @ this time. Copy dated, initialed and placed in chart.
--- NOTE | 2023-12-18 13:44 | P.PN_ITS ---
Subjective 2 Subjective: Today she is slightly more responsive, opens her eyes to voice. Squeezes hand on command. Vitals/I&O/Wt Last Vital Signs Temp 97.7 F 12/18/23 11:19 Pulse 92 12/18/23 12:50 Resp 19 H 12/18/23 12:50 BP 159/81 12/18/23 12:50 Pulse Ox 95 12/18/23 12:50 O2 Del Method Room Air 12/16/23 22:34 12/17/23 12/18/23 12/18/23 22:59 06:59 14:59 Intake Total 1317.675 / 1873.600 400 / 2273.600 50 / 50 Output Total 450 / 725 900 / 1625 Balance 867.675 / 1148.600 -500 / 648.600 50 / 50 Weight last 48 hrs Weight 76.884 kg Weight 76.5 kg Weight 76.5 kg Physical Exam 2 Const: GENERAL APPEARANCE: lethargic (Responds to voice) O RIENTATION/CONSCIOUSNESS: Yes lethargic (Responds to voice) HENMT: COMMON NORMALS: oropharynx normal Neck/C-Spine: COMMON NORMALS: no JVD Resp: COMMON NORMALS: normal respiratory effort and clear to auscultation bilaterally AUSCULTATION: clear to auscultation bilaterally Cardio: COMMON NORMALS: no JVD, regular rhythm, S1 normal heart sound present, S2 normal heart sound present and No murmurs present (Cardio) RHYTHM: regular rhythm HEART SOUNDS: S1 normal heart sound present and S2 normal heart sound present GI: COMMON NORMALS: Normal to inspection, nondistended, normoactive bowel sounds present, Soft to palpation and non-tender PALPATION: Yes Soft to palpation Extremity: OTHER: R AKA Neuro: SENSORIUM/ORIENTATION: Yes lethargic (Responds to voice) Skin: NARRATIVE SKIN EXAM: Diffuse erythema, show ulcerations, mild weeping with blister ration of left lower extremity from dorsal foot to about three quarters of the way up the lower leg. Mildly less intense erythema. Urinary Catheter Management: Garber: Cath Placed During This Visit: yes Reason for Continuing Indwelling Catheter: Accurate Measurement of Urinary Output in Critically Ill Patients Urinary Catheter Date of Insertion: 12/16/23 Data 12/18/23 08:35 12/18/23 05:20 Micro: Microbiology 12/16/23 18:01 Urine Culture - Preliminary Urine,Clean Catch Gram Negative Rods A&P Assessment and plan (1) Acute encephalopathy: (2) Septic shock: (3) Left leg cellulitis: (4) Methamphetamine use: (5) Sepsis: Qualifiers: Sepsis type: Streptococcus, other Sepsis acute organ dysfunction status: with acute organ dysfunction Severe sepsis acute organ dysfunction type: encephalopathy Severe sepsis shock status: without septic shock Qualified Code(s): A40.8 - Other streptococcal sepsis; R65.20 - Severe sepsis without septic shock; G93.41 - Metabolic encephalopathy (6) Metabolic acidosis: (7) Hypoalbuminemia: (8) Urinary tract infection: Qualifiers: Hematuria presence: with hematuria Urinary tract infection type: acute cystitis Qualified Code(s): N30.01 - Acute cystitis with hematuria (9) Hyperkalemia: Plan Large collection around the left hip: Suspected hematoma but question whether any superimposed infection of the hematoma possibly spread from the bed infection and left lower limb is unanswered. Ultrasound was ordered with FNA aspiration, however, per radiologist could not be aspirated without any liquefied portion of hematoma at current time. Reviewed vitals, CBC, APTT, CMP. Reviewed and appreciate orthopedic assessment, reviewed note. Blood pressures with improvement. Afebrile. Leukocytosis with improvement to 37.92. Continue IV antibiotics. Follow-up blood cultures. Anticoagulation was stopped yesterday. At risk of DVT. SCD on 1 arm if possible. Acute anemia: Hemoglobin down to 6.2. Requested RBC transfusion. Anticoagulation held yesterday. Reassess blood counts. Large hematoma around the left hip. Severe symptomatic acute blood loss anemia. With encephalopathy. Tachycardia in the 90s. At risk of further bleeding, hemorrhagic shock. Continue management in ICU. Complicated UTI: With acute encephalopathy, sepsis, noted more than 100,000 gram-negative rods in urine. Follow-up cultures. Continue IV antibiotics. Monitor for risk of kidney injury with combination of Zosyn and vancomycin. Kidney function reviewed. Reassessment chemistry requested. Acute encephalopathy: Acute metabolic encephalopathy secondary to multiple foci of infection, sepsis, septic shock. Some improvement in mental status, today she is responding to voice, opens eyes. Still lethargic, falls asleep promptly after. Did squeeze hand on command. Continue treatment of infections. Continue to reorient. With history of recurrent encephalopathy including during prior admission. Hold off potential contributing medications. Maintain seizure precautions. CT abdomen pelvis additionally with left lower lobe opacification, pneumonia versus atelectasis. Incidentally also noted abnormal left hip joint, advanced degenerative changes. Synovial thickening. Prior intramedullary rodding of left femur. Weaning off of pressors. Reduce albumin infusions for now, reviewed albumin overload. Currently NPO. Reduce gentle IV hydration. Monitor vitals. Sepsis, septic shock As above. Hypoalbuminemia -Poor nutrition -IV albumin Urinary tract infection: Reviewed CT, no obstructive uropathy noted. Continue empiric antibiotic coverage. Reviewed urine culture, gram-negative rods. KERRY: Reviewed renal function. KERRY resolving. Reduce albumin infusions. Reduce maintenance IV fluid. Left leg cellulitis and soft tissue infection: Will need to revisit again regarding consideration of amputation given extent and lack of improvement in cellulitis. Per significant other it seems that she did take antibiotics after discharge, although he is not entirely sure. It seems she was rather adamant about not having amputation. -Blood cultures -Vancomycin, Zosyn Hyperkalemia -10 units IV push insulin, D50 Hyponatremia, monitor Acute kidney injury, dehydration, IV fluids Type 2 diabetes mellitus, low-dose sliding scale History of hepatic encephalopathy, ammonia levels pending History of PE, cannot take Eliquis due to altered mental status, hold heparin drip Attestations 2 Medical Necessity Statement*: Continue admission for assessment management of large collection around the left hip, hematoma, concern for possibility of superinfection with extensive cellulitis, soft tissue infection of left lower extremity, continue treatment of UTI, pneumonia, with acute encephalopathy. Coding Level of Care Code Critical Care >/= 30 minutes Critical care time (in minutes): 35 The high probability of a clinically significant, sudden or life threatening deterioration, as referenced in this documentation, required my full and direct attention, intervention and personal management. The critical care time shown is in addition to time spent performing any reported separately billable procedures and includes the following: [x] Data and vital sign review and interpretation [x ] Patient assessment, examination and intervention [x] Medication orders and management [x] Patient/Family updates as able [x] Care Coordination and Documentation. Diagnoses Acute encephalopathy G93.40 Septic shock A41.9; R65.21 Left leg cellulitis L03.116 Methamphetamine use F15.10 Sepsis due to other Streptococcus species with encephalopathy without septic shock A40.8; R65.20; G93.41 Sepsis type: Streptococcus, other Sepsis acute organ dysfunction status: with acute organ dysfunction Severe sepsis acute organ dysfunction type: encephalopathy Severe sepsis shock status: without septic shock Metabolic acidosis E87.20 Hypoalbuminemia E88.09 Urinary tract infection N30.01 Hematuria presence: with hematuria Urinary tract infection type: acute cystitis Hyperkalemia E87.5
[2023-12-18 14:33] LABS: Methicillin-Resist S.aureu PCR DETECTED (NOT DETECTED)
[2023-12-18 17:25] LABS: Glucose Point of Care 155 mg/dL (70-110)
[2023-12-18 17:54] LABS: Basophils # 0.2 10^3/uL (0.0-0.1); Basophils % 0.4 %; Eosinophils # 0.2 10^3/uL (0.0-0.8); Eosinophils % 0.4 %; Hematocrit 25.2 % (36-47); Lymphocytes # 0.8 10^3/uL (0.8-4.8); Lymphocytes % 1.8 %; Mean Corpuscular HGB Conc 31.3 g/dL (30-55); Mean Corpuscular Hemoglobin 27.8 pg (27-33); Mean Corpuscular Volume 88.7 fl (85-98); Mean Platelet Volume 9.6 fL (7.4-10.4); Monocytes # 0.5 10^3/uL (0.2-0.9); Monocytes % 1.1 %; Neutrophils # 38.53 10^3/uL (1.8-7.7); Neutrophils % 91.8 %; Nucleated Red Blood Cells % 0.1 %; Platelet Count 349 10^3/cmm (157-399); Red Blood Count 2.84 10^6/uL (3.85-5.65); Red Cell Distribution Width 19.3 % (12.1-15.1)
[2023-12-18 18:46] LABS: White Blood Count 41.99 10^3/uL (3.29-11.43)
--- NOTE | 2023-12-18 19:36 | US_ITS ---
WS: [id number] INDICATION: Soft tissue collection TECHNIQUE: Ultrasound soft tissue area of concern upper LEFT thigh FINDINGS: Ultrasound upper LEFT thigh area of concern. Subcutaneous collection corresponding to the p rior CT findings most compatible with hematoma. This measures approximately 6.1 x 1.8 x 6.1 cm with a semisolid echogenic appearance. This does not appear drainable. No other suspicious findings. Recomm end follow-up to resolution. IMPRESSION: See above
[2023-12-18] MEDS: pantoprazole 40 mg SDV IVP (22:16)
[2023-12-18] MEDS: sodium chloride 0.9% 1,000 ML 50 ML IV (22:16)
[2023-12-18] MEDS: morphine 4 mg/mL SDV 1 mL 1 MG IVP (22:54)
[2023-12-18] MEDS: vancomycin 1,250 MG/250 ML PIGGYBACK 250 MG IV (23:42)
[2023-12-19] VITALS (7 sets, daily range): BP systolic 129–156; BP diastolic 69–80; PULSE 100–110; RESP 16–23; TEMP 36.6–39.1; O2SAT 90–95; BMI 26.5
--- NOTE | 2023-12-19 00:53 | PC.NURSE ---
Home meds given to Belén Antonio RN during transfer
--- NOTE | 2023-12-19 01:28 | PC.NURSE ---
Home medications put in the 2S pyxis by racebook writer.
[2023-12-19 05:39] LABS: Basophils # 0.1 10^3/uL (0.0-0.1); Basophils % 0.3 %; Eosinophils # 0.1 10^3/uL (0.0-0.8); Eosinophils % 0.3 %; Hematocrit 25.4 % (36-47); Lymphocytes # 0.9 10^3/uL (0.8-4.8); Lymphocytes % 2.6 %; Mean Corpuscular HGB Conc 30.3 g/dL (30-55); Mean Corpuscular Hemoglobin 27.3 pg (27-33); Mean Corpuscular Volume 90.1 fl (85-98); Mean Platelet Volume 9.6 fL (7.4-10.4); Monocytes # 0.6 10^3/uL (0.2-0.9); Monocytes % 1.8 %; Neutrophils # 31.63 10^3/uL (1.8-7.7); Neutrophils % 90.9 %; Nucleated Red Blood Cells % 0 %; Platelet Count 345 10^3/cmm (157-399); Red Blood Count 2.82 10^6/uL (3.85-5.65); Red Cell Distribution Width 19.9 % (12.1-15.1)
[2023-12-19] MEDS: piperacillin-tazobactam 3.375 GM in sodium chloride 0.9% (plus) 50 ML IV ×3 (05:46→21:20)
[2023-12-19 05:53] LABS: White Blood Count 34.78 10^3/uL (3.29-11.43)
[2023-12-19 07:07] LABS: Glucose Point of Care 159 mg/dL (70-110)
[2023-12-19] MEDS: insulin lispro 100 unit/1 mL SUBCUT ×3 (08:37→17:48)
[2023-12-19 08:40] LABS: Alanine Aminotransferase 8 U/L (0-33); Albumin Level 3.1 g/dL (3.5-5.2); Alkaline Phosphatase 145 U/L (35-105); Anion Gap 24.7 (5-19); Aspartate Amino Transferase 7 U/L (0-32); Blood Urea Nitrogen 33 mg/dL (8-23); Calcium 9.1 mg/dL (8.5-10.5); Carbon Dioxide 13 mmol/L (22-29); Chloride 115 mmol/L (98-107); Globulin 3.5 g/dL (1.3-4.6); Glomerular Filtration Rate 84.5 mL/min (90-130); Glucose 176 mg/dL (65-115); Magnesium 2.1 mg/dL (1.7-2.3); Osmolality Calculated 322 mOsm/kg (285-295); Sodium 150 mmol/L (136-145); Total Bilirubin 2.6 mg/dL (0.15-1.2); Total Protein 6.6 g/dL (6.6-8.7)
[2023-12-19 09:09] LABS: Potassium 2.7 mmol/L (3.5-5.1)
--- NOTE | 2023-12-19 10:32 | PC.CHAP ---
Pastoral Care Encounter/Spiritual Assessment Type of Contact [] Declined mold release worker visit [] Patient/Family/Request visit [] Outpatient visit [] Follow-up visit [] Physician referral [] Code/Alert [x] Routine visit [] Staff referral [] Actively dying [] Patient sleeping [] Family support [] [] Out of room [] Palliative care [] [x] Receiving care in room [] Pre-surgical visit [] Trauma [] Long length of stay [] ICU visit [] Other: Relational/Emotional Strength [x] Patient feels connected with others/family/visitors/staff [] Distress [] Loneliness/isolation [] Abandonment Spirituality of Patient [x] Person of Amee [x] Attends [employer] of their Ame[place] [] Believes in Prayer [] Reads Bible or Jain materials [] There are Spiritual issues to be addressed Motor [employer]ian Interventions [] Prayer [] Active listening [] Non-anxious presence [] Spiritual/emotional support [] Crisis/trauma care [] Spiritual counseling [] Bereavement support [] Provided bereavement packet [] Provided Bible/devotional materials [] Provided toy/stuffed animal, coloring book to patient or family member [] Provided Communion [] Anointing/[place] [] Salvation [] Completed spiritual assessment [] Other: Impact on Illness or Injury [] Angry [] Fearful [] Anxious [] Often cries [] Exhaustion [] Unable to work [] Unable to attend sabianism [] Unable to walk/stand [] Unable to read [] Unable to drive [] Unable to eat/drink [] Unable to sleep [] Unable to be with family [] Patient intubated [] Other: Summary going hmoe + 1 Time spent with patient 10 mins
[2023-12-19 11:25] LABS: Glucose Point of Care 181 mg/dL (70-110)
[2023-12-19] MEDS: lidocaine 1% 5 ML in potassium chloride premix 100 ML 26.25 ML IV (11:26)
[2023-12-19] MEDS: dextrose 5% 1,000 ML 30 ML IV (11:32)
[2023-12-19 17:13] LABS: Glucose Point of Care 270 mg/dL (70-110)
[2023-12-19] MEDS: acetaminophen 325 mg Tablet 650 MG PO (21:19)
[2023-12-19 22:30] LABS: Vancomycin Trough 15.6 ug/mL (10-15)
[2023-12-19] MEDS: pantoprazole 40 mg SDV IVP (22:30)
--- NOTE | 2023-12-19 23:26 | P.PN_ITS ---
Subjective 2 Subjective: She opens her eyes, makes eye contact states she is doing okay but then starts crying. Not oriented. Vitals/I&O/Wt Last Vital Signs Temp 102.3 F H 12/19/23 20:00 Pulse 100 12/19/23 20:00 Resp 18 12/19/23 20:00 BP 152/77 12/19/23 20:00 Pulse Ox 90 12/19/23 20:00 O2 Del Method Room Air 12/19/23 16:00 12/19/23 12/19/23 12/20/23 14:59 22:59 06:59 Intake Total 416.4 / 416.4 1495 / 1911.4 Output Total 340 / 340 Balance 416.4 / 416.4 1155 / 1571.4 Weight last 48 hrs Weight 76.884 kg Weight 76.884 kg Physical Exam 2 Const: GENERAL APPEARANCE: lethargic (Responds to voice) O RIENTATION/CONSCIOUSNESS: Yes lethargic (Responds to voice) HENMT: COMMON NORMALS: oropharynx normal Neck/C-Spine: COMMON NORMALS: no JVD Resp: COMMON NORMALS: normal respiratory effort and clear to auscultation bilaterally AUSCULTATION: clear to auscultation bilaterally Cardio: COMMON NORMALS: no JVD, regular rhythm, S1 normal heart sound present, S2 normal heart sound present and No murmurs present (Cardio) RHYTHM: regular rhythm HEART SOUNDS: S1 normal heart sound present and S2 normal heart sound present GI: COMMON NORMALS: Normal to inspection, nondistended, normoactive bowel sounds present, Soft to palpation and non-tender PALPATION: Yes Soft to palpation Extremity: OTHER: R AKA Large area of swelling around left hip/pelvis. Neuro: SENSORIUM/ORIENTATION: Yes lethargic (Responds to voice) Skin: NARRATIVE SKIN EXAM: Diffuse erythema, show ulcerations, mild weeping with blister ration of left lower extremity from dorsal foot to about three quarters of the way up the lower leg. Mildly less intense erythema. Urinary Catheter Management: Garber: Cath Placed During This Visit: yes Reason for Continuing Indwelling Catheter: Other Urinary Catheter Date of Insertion: 12/16/23 Data 12/19/23 05:19 12/19/23 07:52 Micro: Microbiology 12/16/23 18:01 Urine Culture - Final Urine,Clean Catch Klebsiella pneumoniae 12/16/23 17:06 Blood Culture - Preliminary Blood 12/16/23 17:06 Blood Culture - Preliminary Blood A&P Assessment and plan (1) Acute encephalopathy: (2) Septic shock: (3) Left leg cellulitis: (4) Methamphetamine use: (5) Sepsis: Qualifiers: Sepsis type: Streptococcus, other Sepsis acute organ dysfunction status: with acute organ dysfunction Severe sepsis acute organ dysfunction type: encephalopathy Severe sepsis shock status: without septic shock Qualified Code(s): A40.8 - Other streptococcal sepsis; R65.20 - Severe sepsis without septic shock; G93.41 - Metabolic encephalopathy (6) Metabolic acidosis: (7) Hypoalbuminemia: (8) Urinary tract infection: Qualifiers: Hematuria presence: with hematuria Urinary tract infection type: acute cystitis Qualified Code(s): N30.01 - Acute cystitis with hematuria (9) Hyperkalemia: Plan Large collection around the left hip: Reviewed vitals, CBC, CMP. WBC with improvement, but continues to have fever spikes, up to 102.3 this evening. Repeat ultrasound again to assess for any liquefied portion of the hematoma to aspirate to assess for superinfection of hematoma given extensive area of infection of left lower extremity. Continue IV antibiotics. Zosyn, vancomycin. Concern for persistent sepsis with leukocytosis 34.78, sinus tachycardia 100, fever 102.3. Blood culture reviewed, so far negative. Suspected hematoma but question whether any superimposed infection of the hematoma possibly spread from the bed infection and left lower limb is unanswered. Ultrasound was ordered with FNA aspiration, however, per radiologist could not be aspirated without any liquefied portion of hematoma at current time. Reviewed vitals, CBC, APTT, CMP. Reviewed and appreciate orthopedic assessment, reviewed note. Blood pressures with improvement. Afebrile. Leukocytosis with improvement to 37.92. Continue IV antibiotics. Follow-up blood cultures. Anticoagulation was stopped yesterday. At risk of DVT. SCD on 1 arm if possible. Severe hypokalemia: Replacement requested. Reviewed magnesium. Recheck both. Hyponatremia: Change IV fluid to low rate D5W. Acute anemia: Hemoglobin reviewed, 7.7. Recheck CBC. Hemoglobin up to 7.9 after RBC transfusion. Anticoagulation held. Large hematoma around the left hip. Severe symptomatic acute blood loss anemia. With encephalopathy. Tachycardia in the 90s. At risk of further bleeding, hemorrhagic shock. Complicated UTI: Reviewed urine culture, noted growing Klebsiella. Continue Zosyn. With acute encephalopathy, sepsis, noted more than 100,000 gram-negative rods in urine. Follow-up cultures. Continue IV antibiotics. Monitor for risk of kidney injury with combination of Zosyn and vancomycin. Kidney function reviewed. Reassessment chemistry requested. Acute encephalopathy: Improving. She is more alert, still not oriented, confused. Continue treatment of underlying infections, reassess for possibility of abscess at the site of hematoma surrounding the left hip. Continue to reorient. Acute metabolic encephalopathy secondary to multiple foci of infection, sepsis, septic shock. Some improvement in mental status, today she is responding to voice, opens eyes. Still lethargic, falls asleep promptly after. Did squeeze hand on command. Continue treatment of infections. Continue to reorient. With history of recurrent encephalopathy including during prior admission. Hold off potential contributing medications. Maintain seizure precautions. CT abdomen pelvis additionally with left lower lobe opacification, pneumonia versus atelectasis. Incidentally also noted abnormal left hip joint, advanced degenerative changes. Synovial thickening. Prior intramedullary rodding of left femur. Weaning off of pressors. Reduce albumin infusions for now, reviewed albumin overload. Currently NPO. Reduce gentle IV hydration. Monitor vitals. Sepsis, septic shock As above. Hypoalbuminemia -Poor nutrition -IV albumin Urinary tract infection: Reviewed CT, no obstructive uropathy noted. Continue empiric antibiotic coverage. Reviewed urine culture, gram-negative rods. KERRY: Reviewed renal function. KERRY resolving. Reduce albumin infusions. Reduce maintenance IV fluid. Left leg cellulitis and soft tissue infection: Will need to revisit again regarding consideration of amputation given extent and lack of improvement in cellulitis. Per significant other it seems that she did take antibiotics after discharge, although he is not entirely sure. It seems she was rather adamant about not having amputation. -Blood cultures -Vancomycin, Zosyn Hyperkalemia -10 units IV push insulin, D50 Hyponatremia, monitor Acute kidney injury, dehydration, IV fluids Type 2 diabetes mellitus, low-dose sliding scale History of hepatic encephalopathy, ammonia levels pending History of PE, cannot take Eliquis due to altered mental status, hold heparin drip Attestations 2 Medical Necessity Statement*: Continue admission for assessment management of sepsis, extensive cellulitis left lower extremity, large hematoma around the left hip, additional assessment for possible infected hematoma, acute encephalopathy. Diagnoses Acute encephalopathy G93.40 Septic shock A41.9; R65.21 Left leg cellulitis L03.116 Methamphetamine use F15.10 Sepsis due to other Streptococcus species with encephalopathy without septic shock A40.8; R65.20; G93.41 Sepsis type: Streptococcus, other Sepsis acute organ dysfunction status: with acute organ dysfunction Severe sepsis acute organ dysfunction type: encephalopathy Severe sepsis shock status: without septic shock Metabolic acidosis E87.20 Hypoalbuminemia E88.09 Urinary tract infection N30.01 Hematuria presence: with hematuria Urinary tract infection type: acute cystitis Hyperkalemia E87.5
[2023-12-20] VITALS (8 sets, daily range): BP systolic 120–153; BP diastolic 76–85; PULSE 81–93; RESP 16–18; TEMP 36.4–38.8; O2SAT 91–96
[2023-12-20] MEDS: vancomycin 1,250 MG/250 ML PIGGYBACK 250 MG IV (00:09)
--- NOTE | 2023-12-20 01:28 | PC.NURSE ---
During nursing hourly rounding at 0100, pt is noted to look as though her condition is declining. Her face appears sunken in, is much less alert, and is maintaining a persistent fever. Physician notified and AM labs drawn early.
[2023-12-20 01:53] LABS: Basophils # 0.1 10^3/uL (0.0-0.1); Basophils % 0.2 %; Hematocrit 23.7 % (36-47); Lymphocytes # 0.9 10^3/uL (0.8-4.8); Lymphocytes % 3.8 %; Mean Corpuscular HGB Conc 31.2 g/dL (30-55); Mean Corpuscular Hemoglobin 27.6 pg (27-33); Mean Corpuscular Volume 88.4 fl (85-98); Mean Platelet Volume 9.5 fL (7.4-10.4); Monocytes % 4.3 %; Neutrophils # 20.59 10^3/uL (1.8-7.7); Neutrophils % 87.2 %; Nucleated Red Blood Cells % 0.1 %; Platelet Count 276 10^3/cmm (157-399); Red Blood Count 2.68 10^6/uL (3.85-5.65); Red Cell Distribution Width 19.9 % (12.1-15.1); White Blood Count 23.64 10^3/uL (3.29-11.43)
[2023-12-20 02:18] LABS: ABG PCO2 25.8 mmHg (35-45); ABG PH Result 7.42 (7.35-7.45); Arterial Blood Gas Hematocrit 24.5 % (37-47); Base Excess ABG -6.7 mmol/L (-2.0-2.0); Blood Gas Allen Test Pos; Blood Gas Sample Site Radial, right; Blood Gas Sample Type Arterial; HCO3 ABG 16.8 mmol/L (22-26); Oxygen Device ROOM AIR; PO2 ABG 68.4 mmHg (80.0-100.0)
[2023-12-20 02:18] LABS: Alanine Aminotransferase 7 U/L (0-33); Albumin Level 3.4 g/dL (3.5-5.2); Alkaline Phosphatase 154 U/L (35-105); Anion Gap 19.5 (5-19); Aspartate Amino Transferase 10 U/L (0-32); Blood Urea Nitrogen 40 mg/dL (8-23); Calcium 8.7 mg/dL (8.5-10.5); Carbon Dioxide 17 mmol/L (22-29); Chloride 116 mmol/L (98-107); Globulin 3.3 g/dL (1.3-4.6); Glomerular Filtration Rate 72.4 mL/min (90-130); Glucose 300 mg/dL (65-115); Osmolality Calculated 329 mOsm/kg (285-295); Potassium 3.5 mmol/L (3.5-5.1); Sodium 149 mmol/L (136-145); Total Bilirubin 2.8 mg/dL (0.15-1.2); Total Protein 6.7 g/dL (6.6-8.7)
[2023-12-20 02:19] LABS: Magnesium 2.1 mg/dL (1.7-2.3)
[2023-12-20] MEDS: piperacillin-tazobactam 3.375 GM in sodium chloride 0.9% (plus) 50 ML IV ×3 (05:37→20:37)
[2023-12-20 06:49] LABS: Glucose Point of Care 291 mg/dL (70-110)
[2023-12-20 06:49] LABS: Glucose Point of Care 217 mg/dL (70-110)
--- NOTE | 2023-12-20 07:00 | US_ITS ---
WS: [id number] ULTRASOUND SOFT TISSUES LEFT hip HISTORY: Hematoma around l hip, persistenet fevers COMPARISON: 12/18/2023 TECHNIQUE: 2-D and color Doppler imaging is submitted. There is a large complex collection with low-level echoes throughout and no increased vascularity. Th is mass extends over a length of 7.3 cm x 3.7 cm. This corresponds to the previously identified soft tissue mass by CT and ultrasound Mass appears slightly better performed today. Small amount of posterior enhancement. IMPRESSION: Reidentified is a complex collection over the LEFT lateral hip and thigh region. No increased vascula rity.
[2023-12-20] MEDS: insulin lispro 100 unit/1 mL SUBCUT ×4 (08:44→22:01)
[2023-12-20 11:19] LABS: Glucose Point of Care 269 mg/dL (70-110)
--- NOTE | 2023-12-20 11:35 | US_ITS ---
WS: [id number] ULTRASOUND GUIDED SOFT TISSUE ASPIRATION CLINICAL INFORMATION: collection around L hip, assess for abscess TECHNIQUE: Ultrasound-guided aspiration FINDINGS: The procedure including risks, benefits, and complications were discussed with the patient' s caregiver who agreed to proceed. Consent was obtained via telephone. Timeout was performed. Using sterile technique patient was prepped and draped in usual sterile fashio n. After 1% lidocaine, using ultrasound guidance, a 4 [place] Inspirotec catheter was advanced into the marely ection. Approximately 10 cc of bloody hematoma was aspirated before catheter occluded. Next an 18-gau ge spinal needle was inserted into the collection with an additional 10 cc of bloody fluid aspirated. No immediate complications. IMPRESSION: 1. Uncomplicated ultrasound-guided aspiration of the LEFT upper thigh/gluteus complex fluid collecti on 2. Approximately 20 cc of bloody fluid was aspirated. 3. Fluid sent for requested cultures and microbiology studies
--- NOTE | 2023-12-20 11:37 | P.PN_ITS ---
Subjective 2 Subjective: Awake, makes eye contact, tells me her name partially, not oriented. Anxious, wants to hold my hand, cries when I am leaving the room. Vitals/I&O/Wt Last Vital Signs Temp 98.1 F 12/20/23 07:00 Pulse 81 12/20/23 07:00 Resp 16 12/20/23 07:00 BP 148/85 12/20/23 07:00 Pulse Ox 94 12/20/23 07:00 O2 Del Method Nasal Cannula 12/20/23 07:00 12/19/23 12/20/23 12/20/23 22:59 06:59 14:59 Intake Total 1615 / 2031.4 300 / 2331.4 390 / 390 Output Total 340 / 340 200 / 540 Balance 1275 / 1691.4 100 / 1791.4 390 / 390 Weight last 48 hrs Weight 76.884 kg Physical Exam 2 Const: GENERAL APPEARANCE: lethargic (Responds to voice) O RIENTATION/CONSCIOUSNESS: Yes lethargic (Responds to voice) HENMT: COMMON NORMALS: oropharynx normal Neck/C-Spine: COMMON NORMALS: no JVD Resp: COMMON NORMALS: normal respiratory effort and clear to auscultation bilaterally AUSCULTATION: clear to auscultation bilaterally Cardio: COMMON NORMALS: no JVD, regular rhythm, S1 normal heart sound present, S2 normal heart sound present and No murmurs present (Cardio) RHYTHM: regular rhythm HEART SOUNDS: S1 normal heart sound present and S2 normal heart sound present GI: COMMON NORMALS: Normal to inspection, nondistended, normoactive bowel sounds present, Soft to palpation and non-tender PALPATION: Yes Soft to palpation Extremity: OTHER: R AKA Large area of swelling around left hip/pelvis. Neuro: SENSORIUM/ORIENTATION: Yes lethargic (Responds to voice) Skin: NARRATIVE SKIN EXAM: Diffuse erythema, show ulcerations, mild weeping with blister ration of left lower extremity from dorsal foot to about three quarters of the way up the lower leg. Mildly less intense erythema. Urinary Catheter Management: Garber: Cath Placed During This Visit: yes Reason for Continuing Indwelling Catheter: Other Urinary Catheter Date of Insertion: 12/16/23 Data 12/20/23 01:45 12/20/23 01:45 Micro: Microbiology 12/16/23 18:01 Urine Culture - Final Urine,Clean Catch Klebsiella pneumoniae 12/16/23 17:06 Blood Culture - Preliminary Blood 12/16/23 17:06 Blood Culture - Preliminary Blood A&P Assessment and plan (1) Acute encephalopathy: (2) Septic shock: (3) Left leg cellulitis: (4) Sepsis: Qualifiers: Sepsis acute organ dysfunction status: with acute organ dysfunction S epsis type: Streptococcus, other Severe sepsis acute organ dysfunction type: e ncephalopathy Severe sepsis shock status: without septic shock Qualified Code(s): A40.8 - Other streptococcal sepsis; R65.20 - Severe sepsis without septic shock; G93.41 - Metabolic encephalopathy (5) Metabolic acidosis: (6) Hypoalbuminemia: (7) Urinary tract infection: Qualifiers: Hematuria presence: with hematuria Urinary tract infection type: acute cystitis Qualified Code(s): N30.01 - Acute cystitis with hematuria (8) Hyperkalemia: Plan Large collection around the left hip: Reviewed vitals, CBC, ABG, CMP, Vanco trough, repeat soft tissue ultrasound. Discussed with radiologist. Attempt will be made today to see if a sample can be obtained from the large collection given she has continued spiking fevers last night up to 102.3. Continue IV antibiotics. Zosyn, vancomycin. Concern for persistent sepsis with leukocytosis 34.78, sinus tachycardia 100, fever 102.3. Blood culture reviewed, so far negative. Suspected hematoma but question whether any superimposed infection of the hematoma possibly spread from the bed infection and left lower limb is unanswered. Ultrasound was ordered with FNA aspiration, however, per radiologist could not be aspirated without any liquefied portion of hematoma at current time. Reviewed vitals, CBC, APTT, CMP. Reviewed and appreciate orthopedic assessment, reviewed note. Blood pressures with improvement. Afebrile. Leukocytosis with improvement to 37.92. Continue IV antibiotics. Follow-up blood cultures. Anticoagulation was stopped yesterday. At risk of DVT. SCD on 1 arm if possible. Severe hypokalemia: Replaced. Reviewed magnesium. Recheck both. Hypernatremia: D5W. Reviewed sodium, slightly better 149. Acute anemia: Hemoglobin reviewed, 7.4. Recheck CBC. Hemoglobin up to 7.9 after RBC transfusion. Anticoagulation held. Large hematoma around the left hip. Severe symptomatic acute blood loss anemia. With encephalopathy. Tachycardia in the 90s. At risk of further bleeding, hemorrhagic shock. Complicated UTI: Reviewed urine culture, noted growing Klebsiella. Continue Zosyn. With acute encephalopathy, sepsis, noted more than 100,000 gram-negative rods in urine. Follow-up cultures. Continue IV antibiotics. Monitor for risk of kidney injury with combination of Zosyn and vancomycin. Kidney function reviewed. Reassessment chemistry requested. Acute encephalopathy:Sounds to hold improving she is awake and alert, but confused. Continues to have sepsis with leukocytosis, fevers, continue treatment as above. Continue to reorient. Concern for Methamphetamine use and/or withdrawal. Seizure precautions. Monitor vitals. Monitor on telemetry. She is more alert, still not oriented, confused. Continue treatment of underlying infections, reassess for possibility of abscess at the site of hematoma surrounding the left hip. Continue to reorient. Acute metabolic encephalopathy secondary to multiple foci of infection, sepsis, septic shock. Some improvement in mental status, today she is responding to voice, opens eyes. Still lethargic, falls asleep promptly after. Did squeeze hand on command. Continue treatment of infections. Continue to reorient. With history of recurrent encephalopathy including during prior admission. Hold off potential contributing medications. Maintain seizure precautions. CT abdomen pelvis additionally with left lower lobe opacification, pneumonia versus atelectasis. Incidentally also noted abnormal left hip joint, advanced degenerative changes. Synovial thickening. Prior intramedullary rodding of left femur. Weaning off of pressors. Reviewed vitals. Start albumin Sepsis, septic shock As above. Hypoalbuminemia -Poor nutrition -stop IV albumin Urinary tract infection: Reviewed CT, no obstructive uropathy noted. Continue empiric antibiotic coverage. Reviewed urine culture, gram-negative rods. KERRY: Reviewed renal function. KERRY resolving. Reduce albumin infusions. Reduce maintenance IV fluid. Left leg cellulitis and soft tissue infection: Will need to revisit again regarding consideration of amputation given extent and lack of improvement in cellulitis. Per significant other it seems that she did take antibiotics after discharge, although he is not entirely sure. It seems she was rather adamant about not having amputation. -Blood cultures -Vancomycin, Zosyn Hyperkalemia -10 units IV push insulin, D50 Hyponatremia, monitor Acute kidney injury, dehydration, IV fluids Type 2 diabetes mellitus, low-dose sliding scale History of hepatic encephalopathy, ammonia levels pending History of PE, cannot take Eliquis due to altered mental status, hold heparin drip Attestations 2 Medical Necessity Statement*: Continue admission for assessment management of sepsis, extensive cellulitis left lower extremity, large hematoma around the left hip, additional assessment for possible infected hematoma, acute encephalopathy. Diagnoses Acute encephalopathy G93.40 Septic shock A41.9; R65.21 Left leg cellulitis L03.116 Sepsis due to other Streptococcus species with encephalopathy without septic shock A40.8; R65.20; G93.41 Sepsis acute organ dysfunction status: with acute organ dysfunction Sepsis type: Streptococcus, other Severe sepsis acute organ dysfunction type: encephalopathy Severe sepsis shock status: without septic shock Metabolic acidosis E87.20 Hypoalbuminemia E88.09 Urinary tract infection N30.01 Hematuria presence: with hematuria Urinary tract infection type: acute cystitis Hyperkalemia E87.5
[2023-12-20] MEDS: ondansetron 2 mg/ML SDV 2 mL 4 MG IVP ×2 (13:18→21:59)
[2023-12-20 15:59] LABS: Cyto Order Verification No Order
[2023-12-20 16:29] LABS: Monocytes # Body Fluid 8.112
[2023-12-20 16:31] LABS: Glucose Point of Care 305 mg/dL (70-110)
[2023-12-20 16:34] LABS: Apprearance, Body Fluid BLOODY; Color, Body Fluid RED
[2023-12-20 16:35] LABS: PATH Referral YES
[2023-12-20] MEDS: insulin glargine 100 units/1 mL 5 UNIT SUBCUT (16:36)
[2023-12-20] MEDS: morphine 4 mg/mL SDV 1 mL 1 MG IVP (20:37)
[2023-12-20 21:42] LABS: Glucose Point of Care 145 mg/dL (70-110)
[2023-12-20] MEDS: pantoprazole 40 mg SDV IVP (21:58)
[2023-12-20] MEDS: HYDROmorphone 1 mg/mL INJ 1 mL 0.4 MG IVP (21:59)
[2023-12-20] MEDS: vancomycin 1,250 MG/250 ML PIGGYBACK 200 MG IV (22:00)
[2023-12-20] MEDS: dextrose 5% 1,000 ML 30 ML IV (22:00)
[2023-12-21] VITALS (12 sets, daily range): BP systolic 135–152; BP diastolic 70–85; PULSE 69–92; RESP 16–18; TEMP 36.4–37.7; O2SAT 95–100
[2023-12-21] MEDS: HYDROmorphone 1 mg/mL INJ 1 mL 0.4 MG IVP ×4 (01:57→20:43)
[2023-12-21] MEDS: piperacillin-tazobactam 3.375 GM in sodium chloride 0.9% (plus) 50 ML IV (04:32)
[2023-12-21 05:07] LABS: Basophils # 0.1 10^3/uL (0.0-0.1); Basophils % 0.3 %; Eosinophils # 0.1 10^3/uL (0.0-0.8); Eosinophils % 0.3 %; Hematocrit 26.3 % (36-47); Lymphocytes # 1.2 10^3/uL (0.8-4.8); Lymphocytes % 5.2 %; Mean Corpuscular HGB Conc 29.3 g/dL (30-55); Mean Corpuscular Hemoglobin 27.2 pg (27-33); Mean Corpuscular Volume 92.9 fl (85-98); Mean Platelet Volume 10.5 fL (7.4-10.4); Monocytes % 4.1 %; Neutrophils # 20.58 10^3/uL (1.8-7.7); Nucleated Red Blood Cells % 0.2 %; Platelet Count 216 10^3/cmm (157-399); Red Blood Count 2.83 10^6/uL (3.85-5.65); Red Cell Distribution Width 20.1 % (12.1-15.1); White Blood Count 23.92 10^3/uL (3.29-11.43)
[2023-12-21 07:13] LABS: Glucose Point of Care 135 mg/dL (70-110)
[2023-12-21 07:29] LABS: Anion Gap 17.7 (5-19); Blood Urea Nitrogen 44 mg/dL (8-23); Calcium 8.7 mg/dL (8.5-10.5); Carbon Dioxide 17 mmol/L (22-29); Chloride 123 mmol/L (98-107); Glucose 136 mg/dL (65-115); Osmolality Calculated 333 mOsm/kg (285-295); Sodium 155 mmol/L (136-145)
[2023-12-21 07:33] LABS: Potassium 2.7 mmol/L (3.5-5.1)
[2023-12-21] MEDS: insulin glargine 100 units/1 mL 5 UNIT SUBCUT (08:05)
[2023-12-21] MEDS: lidocaine 1% 5 ML in potassium chloride premix 100 ML 26.25 ML IV (11:10)
[2023-12-21 11:20] LABS: Glucose Point of Care 145 mg/dL (70-110)
[2023-12-21] MEDS: insulin lispro 100 unit/1 mL SUBCUT (13:01)
[2023-12-21] MEDS: piperacillin-tazobactam 3.375 GM in dextrose 5% (plus) 50 ML IV (14:43)
[2023-12-21 17:20] LABS: Glucose Point of Care 116 mg/dL (70-110)
--- NOTE | 2023-12-21 19:05 | P.PN_ITS ---
Subjective 2 Subjective: She is more alert today. She would like to try some oral intake. No longer vomiting. She is oriented to being in the hospital and [place]. Does not remember the year. 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 Vitals/I&O/Wt Last Vital Signs Temp 98.5 F 12/21/23 16:00 Pulse 72 12/21/23 16:00 Resp 16 12/21/23 16:57 BP 146/84 12/21/23 16:00 Pulse Ox 95 12/21/23 16:00 O2 Del Method Room Air 12/21/23 16:00 O2 Flow Rate 2 12/21/23 10:56 12/21/23 12/21/23 12/21/23 06:59 14:59 22:59 Intake Total 300 / 1740 Balance 300 / 1740 Weight last 48 hrs Weight 76.43 kg Physical Exam 2 Const: COMMON NORMALS: alert HENMT: COMMON NORMALS: oropharynx normal Neck/C-Spine: COMMON NORMALS: no JVD Resp: COMMON NORMALS: normal respiratory effort and clear to auscultation bilaterally AUSCULTATION: clear to auscultation bilaterally Cardio: COMMON NORMALS: no JVD, regular rhythm, S1 normal heart sound present, S2 normal heart sound present and No murmurs present (Cardio) RHYTHM: regular rhythm HEART SOUNDS: S1 normal heart sound present and S2 normal heart sound present GI: COMMON NORMALS: Normal to inspection, nondistended, normoactive bowel sounds present, Soft to palpation and non-tender PALPATION: Yes Soft to palpation Extremity: OTHER: R AKA Large area of swelling around left hip/pelvis. Neuro: SENSORIUM/ORIENTATION: Yes alert Skin: NARRATIVE SKIN EXAM: Improvement in diffuse erythema, show ulcerations, mild weeping with blister ration of left lower extremity from dorsal foot to about three quarters of the way up the lower leg. Mildly less intense erythema. Urinary Catheter Management: Garber: Cath Placed During This Visit: yes, but has since been removed by the nurse Reason for Continuing Indwelling Catheter: Accurate Measurement of Urinary Output in Critically Ill Patients Urinary Catheter Date of Insertion: 12/16/23 Date Urinary Catheter Removed: 12/20/23 Time Urinary Catheter Discontinued: 19:31 Data 12/21/23 04:39 12/21/23 06:46 Micro: Microbiology 12/20/23 Unknown Gram Stain - Final Other Source Body Fluid Culture - Preliminary A&P Assessment and plan (1) Acute encephalopathy: (2) Septic shock: (3) Left leg cellulitis: (4) Sepsis: Qualifiers: Sepsis acute organ dysfunction status: with acute organ dysfunction S epsis type: Streptococcus, other Severe sepsis acute organ dysfunction type: e ncephalopathy Severe sepsis shock status: without septic shock Qualified Code(s): A40.8 - Other streptococcal sepsis; R65.20 - Severe sepsis without septic shock; G93.41 - Metabolic encephalopathy (5) Metabolic acidosis: (6) Hypoalbuminemia: (7) Urinary tract infection: Qualifiers: Hematuria presence: with hematuria Urinary tract infection type: acute cystitis Qualified Code(s): N30.01 - Acute cystitis with hematuria (8) Hyperkalemia: Plan Large collection around the left hip: Gram-positive cocci in chains noted on review of Gram stain from the left hip collection. Discussed with orthopedics. Pending reassessment. Continue IV antibiotics. Reviewed CBC, BMP, vitals. Reviewed blood culture, so far no growth. Preliminary. Continue IV antibiotics. Zosyn, vancomycin. Reassess renal function with risk of renal dysfunction with Zosyn and Vanco combination. Suspected hematoma but question whether any superimposed infection of the hematoma possibly spread from the bed infection and left lower limb is unanswered. Ultrasound was ordered with FNA aspiration, however, per radiologist could not be aspirated without any liquefied portion of hematoma at current time. Reviewed vitals, CBC, APTT, CMP. Reviewed and appreciate orthopedic assessment, reviewed note. Blood pressures with improvement. Afebrile. Leukocytosis with improvement to 37.92. Continue IV antibiotics. Follow-up blood cultures. Anticoagulation was stopped yesterday. At risk of DVT. SCD on 1 arm if possible. Severe hypokalemia: Replaced. Reviewed magnesium. Recheck both. Hypernatremia: Worsened to severe hyponatremia. Risk of neurologic dysfunction. With hyperchloremic acidosis. Discussed with pharmacist, switch any infusions possible to D5W days. [id number]. Oral intake is tolerating. Reassess chemistry. Acute anemia: Hemoglobin reviewed, 7.7. Recheck CBC. Hemoglobin up to 7.9 after RBC transfusion. Anticoagulation held. Large hematoma around the left hip. Severe symptomatic acute blood loss anemia. With encephalopathy. Tachycardia in the 90s. At risk of further bleeding, hemorrhagic shock. Complicated UTI: Reviewed urine culture, noted growing Klebsiella. Continue Zosyn. With acute encephalopathy, sepsis, noted more than 100,000 gram-negative rods in urine. Follow-up cultures. Continue IV antibiotics. Monitor for risk of kidney injury with combination of Zosyn and vancomycin. Kidney function reviewed. Reassessment chemistry requested. Acute encephalopathy:Sounds to hold improving she is awake and alert, but confused. Continues to have sepsis with leukocytosis, fevers, continue treatment as above. Continue to reorient. Concern for Methamphetamine use and/or withdrawal. Seizure precautions. Monitor vitals. Monitor on telemetry. She is more alert, still not oriented, confused. Continue treatment of underlying infections, reassess for possibility of abscess at the site of hematoma surrounding the left hip. Continue to reorient. Acute metabolic encephalopathy secondary to multiple foci of infection, sepsis, septic shock. Some improvement in mental status, today she is responding to voice, opens eyes. Still lethargic, falls asleep promptly after. Did squeeze hand on command. Continue treatment of infections. Continue to reorient. With history of recurrent encephalopathy including during prior admission. Hold off potential contributing medications. Maintain seizure precautions. CT abdomen pelvis additionally with left lower lobe opacification, pneumonia versus atelectasis. Incidentally also noted abnormal left hip joint, advanced degenerative changes. Synovial thickening. Prior intramedullary rodding of left femur. Weaning off of pressors. Reviewed vitals. Start albumin Sepsis, septic shock As above. Hypoalbuminemia -Poor nutrition -stop IV albumin Urinary tract infection: Reviewed CT, no obstructive uropathy noted. Continue empiric antibiotic coverage. Reviewed urine culture, gram-negative rods. KERRY: Reviewed renal function. KERRY resolving. Reduce albumin infusions. Reduce maintenance IV fluid. Left leg cellulitis and soft tissue infection: Will need to revisit again regarding consideration of amputation given extent and lack of improvement in cellulitis. Per significant other it seems that she did take antibiotics after discharge, although he is not entirely sure. It seems she was rather adamant about not having amputation. -Blood cultures -Vancomycin, Zosyn Hyperkalemia -10 units IV push insulin, D50 Hyponatremia, resolved Acute kidney injury, resolved Type 2 diabetes mellitus, sliding scale History of hepatic encephalopathy, ammonia levels normal History of PE, cannot take Eliquis due to altered mental status, hold heparin drip due to hematoma Attestations 2 Medical Necessity Statement*: Continue admission for assessment management of sepsis, extensive cellulitis left lower extremity, large hematoma around the left hip, additional assessment for possible infected hematoma, acute encephalopathy. Diagnoses Acute encephalopathy G93.40 Septic shock A41.9; R65.21 Left leg cellulitis L03.116 Sepsis due to other Streptococcus species with encephalopathy without septic shock A40.8; R65.20; G93.41 Sepsis acute organ dysfunction status: with acute organ dysfunction Sepsis type: Streptococcus, other Severe sepsis acute organ dysfunction type: encephalopathy Severe sepsis shock status: without septic shock Metabolic acidosis E87.20 Hypoalbuminemia E88.09 Urinary tract infection N30.01 Hematuria presence: with hematuria Urinary tract infection type: acute cystitis Hyperkalemia E87.5
[2023-12-21 21:07] LABS: Glucose Point of Care 126 mg/dL (70-110)
[2023-12-21] MEDS: vancomycin 1,250 MG/250 ML PIGGYBACK 200 MG IV (23:05)
[2023-12-21] MEDS: pantoprazole 40 mg SDV IVP (23:05)
[2023-12-22] VITALS (14 sets, daily range): BP systolic 117–168; BP diastolic 69–83; PULSE 68–92; RESP 16–17; TEMP 36.4–36.8; O2SAT 91–100; BMI 26.4
[2023-12-22] MEDS: HYDROmorphone 1 mg/mL INJ 1 mL 0.4 MG IVP ×6 (01:23→23:40)
[2023-12-22 06:05] LABS: Basophils % 0.2 %; Eosinophils # 0.3 10^3/uL (0.0-0.8); Eosinophils % 1.8 %; Hematocrit 26.4 % (36-47); Lymphocytes % 5.2 %; Mean Corpuscular HGB Conc 29.5 g/dL (30-55); Mean Corpuscular Hemoglobin 27.9 pg (27-33); Mean Corpuscular Volume 94.3 fl (85-98); Mean Platelet Volume 10.3 fL (7.4-10.4); Monocytes # 0.5 10^3/uL (0.2-0.9); Monocytes % 2.6 %; Neutrophils # 16.43 10^3/uL (1.8-7.7); Neutrophils % 88.4 %; Nucleated Red Blood Cells % 0 %; Platelet Count 162 10^3/cmm (157-399); Red Cell Distribution Width 19.2 % (12.1-15.1)
[2023-12-22 06:18] LABS: Glucose Point of Care 157 mg/dL (70-110)
[2023-12-22 06:32] LABS: Magnesium 1.6 mg/dL (1.7-2.3)
[2023-12-22 07:19] LABS: Blood Urea Nitrogen 32 mg/dL (8-23); Calcium 8.2 mg/dL (8.5-10.5); Carbon Dioxide 19 mmol/L (22-29); Chloride 111 mmol/L (98-107); Glomerular Filtration Rate 124.6 mL/min (90-130); Glucose 121 mg/dL (65-115); Osmolality Calculated 300 mOsm/kg (285-295); Sodium 141 mmol/L (136-145)
[2023-12-22 07:22] LABS: Anion Gap 14.8 (5-19); Potassium 3.8 mmol/L (3.5-5.1)
[2023-12-22] MEDS: insulin lispro 100 unit/1 mL SUBCUT ×2 (07:57→17:15)
[2023-12-22] MEDS: insulin glargine 100 units/1 mL 5 UNIT SUBCUT (08:35)
[2023-12-22] MEDS: dextrose 5% 1,000 ML 30 ML IV (08:36)
[2023-12-22] MEDS: magnesium sulfate premix 2 GM/50 ML PIGGYBACK IV (10:34)
--- NOTE | 2023-12-22 11:14 | MRR_ITS ---
PROCEDURE INFORMATION: Exam: MR Left Lower Extremity Joint Without Contrast; Hip Exam date and time: 12/22/2023 2:26 PM Age: 63 years old Clinical indication: Injury or trauma; Fall; Edema; Location not specified; Blunt trauma; Prior surgery; Surgery date: 6+ months; Surgery type: Left hip nail; Additional info: Abscess around hip TECHNIQUE: Imaging protocol: Magnetic resonance imaging of the left lower extremity joint without contrast. Exam focused on the hip. COMPARISON: CT hip LT w con [id number] 06/16/2023 1:59 PM FINDINGS: Bones/joints: Surgical changes of femoral intramedullary nailing. There is advanced degenerative disease of the left hip joint with severe joint space narrowing, subchondral sclerosis and marginal osteophytes as well as severe chondral cartilage thickening and small hip joint effusion. No acute fracture. Labrum: Unremarkable. No tear. TENDONS: Tendons of iliopsoas group: Unremarkable. No evidence of tear. Tendons of medial compartment of thigh: Unremarkable. No evidence of tear. Tendons of lateral rotators of hip: Unremarkable. No evidence of tear. Tendons of gluteal group: Unremarkable. No evidence of tear. Tendons of posterior compartment of thigh: There is moderate to severe fatty atrophy of the left quadriceps, left hamstring and left gluteus muscles. There is strain of the adductor muscles. Soft tissues: There is a subcutaneous lateral hip collection extending into the anterior subcutaneous tissues of the thigh that is partially included on the current images measuring approximately 21 x 10 cm with internal high T2 weighted signal, low T1 weighted signal and scattered fat lobules especially at its periphery. MR/MR hip LT wo con* [id number] IMPRESSION: 1. Left lateral hip collection extending into the anterior thigh with internal fat signal suggestive of Ortega Romi lesion. Superimposed infection is not totally excluded. 2. 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 3. Moderate to severe atrophy of the left gluteus, left hamstring and left quadriceps muscles. Strain of the adductor muscles.
--- NOTE | 2023-12-22 11:14 | P.PN_ITS ---
Subjective 2 Subjective: Patient is somewhat confused. We discussed possibly doing surgery on her hip to drain the abscess that is in the hip. Will order an MRI to evaluate this. We also did discuss amputation of her left leg. Patient stated that she agreed to proceed with the left below the knee amputation but wants to go home first. She stated she just got paid and had some things she had to do. Vitals/I&O/Wt Last Vital Signs Temp 97.6 F 12/22/23 08:00 Pulse 72 12/22/23 08:00 Resp 17 12/22/23 08:34 BP 129/78 12/22/23 08:00 Pulse Ox 100 12/22/23 08:00 O2 Del Method Nasal Cannula 12/22/23 08:00 O2 Flow Rate 2 12/22/23 08:00 12/21/23 12/22/23 12/22/23 22:59 06:59 14:59 Intake Total 155 / 155 300 / 455 1220 / 1220 Output Total 300 / 300 Balance 155 / 155 300 / 455 920 / 920 Weight last 48 hrs Weight 168 lb 8 oz Weight 168 lb 8 oz Physical Exam 2 Narrative: Left leg wrapped in [place]. Patient is holding left leg flexed complaining of discomfort. Urinary Catheter Management: Garber: Cath Placed During This Visit: yes, but has since been removed by the nurse Reason for Continuing Indwelling Catheter: Accurate Measurement of Urinary Output in Critically Ill Patients Urinary Catheter Date of Insertion: 12/16/23 Date Urinary Catheter Removed: 12/20/23 Time Urinary Catheter Discontinued: 19:31 Data 12/22/23 05:49 12/22/23 05:49 Micro: Microbiology 12/20/23 Unknown Gram Stain - Final Other Source Body Fluid Culture - Preliminary A&P Assessment and plan (1) Cellulitis of left lower leg: Will get MRI of left hip to determine if we are going to do surgery on her tomorrow. Okay to get MRI in a.m. Keep n.p.o. after midnight. Attestations 2 Medical Necessity Statement*: Per primary service Coding Level of Care Code Acute Code for [facility] Fwd Diagnoses Cellulitis of left lower leg L03.116
[2023-12-22 11:29] LABS: Glucose Point of Care 138 mg/dL (70-110)
[2023-12-22] MEDS: venlafaxine ER (24HR) 150 mg Capsule PO (13:46)
[2023-12-22] MEDS: gabapentin 300 mg Capsule PO ×2 (13:46→21:41)
[2023-12-22] MEDS: diazePAM 5 mg Tablet PO (13:50)
[2023-12-22 16:46] LABS: Glucose Point of Care 177 mg/dL (70-110)
[2023-12-22 20:46] LABS: Glucose Point of Care 118 mg/dL (70-110)
[2023-12-22] MEDS: pantoprazole 40 mg SDV IVP (21:41)
--- NOTE | 2023-12-22 22:12 | P.PN_ITS ---
Subjective 2 Subjective: States she has been feeling quite anxious with nerves , requesting for medication to help her. She has been further considering amputation and feels she may do it. Is still considering it. Initially request to go home, but discussed with her regarding large hematoma over left hip with concern for organisms on Gram stain/concern for infected hematoma overlying the hip joint. Discussed pending additional evaluation by MRI. Need for additional management depending on findings on imaging. She is agreeable to stay. Vitals/I&O/Wt Last Vital Signs Temp 98.2 F 12/22/23 20:00 Pulse 82 12/22/23 20:00 Resp 17 12/22/23 20:00 BP 132/81 12/22/23 20:00 Pulse Ox 95 12/22/23 20:00 O2 Del Method Room Air 12/22/23 20:00 O2 Flow Rate 2 12/22/23 08:00 12/22/23 12/22/23 12/22/23 06:59 14:59 22:59 Intake Total 300 / 455 1750 / 1750 170 / 1920 Output Total 300 / 300 Balance 300 / 455 1450 / 1450 170 / 1620 Weight last 48 hrs Weight 76.43 kg Weight 76.43 kg Physical Exam 2 Const: COMMON NORMALS: alert GENERAL APPEARANCE: lethargic (Responds to voice) ORIENTATION/CONSCIOUSNESS: Yes lethargic (Responds to voice) HENMT: COMMON NORMALS: oropharynx normal Neck/C-Spine: COMMON NORMALS: no JVD Resp: COMMON NORMALS: normal respiratory effort and clear to auscultation bilaterally AUSCULTATION: clear to auscultation bilaterally Cardio: COMMON NORMALS: no JVD, regular rhythm, S1 normal heart sound present, S2 normal heart sound present and No murmurs present (Cardio) RHYTHM: regular rhythm HEART SOUNDS: S1 normal heart sound present and S2 normal heart sound present GI: COMMON NORMALS: Normal to inspection, nondistended, normoactive bowel sounds present, Soft to palpation and non-tender PALPATION: Yes Soft to palpation Extremity: OTHER: R AKA Large area of fluctuant swelling around left hip/pelvis. Neuro: SENSORIUM/ORIENTATION: Yes alert and Yes lethargic (Responds to voice) Skin: NARRATIVE SKIN EXAM: Improvement in diffuse erythema, show ulcerations, mild weeping with blister ration of left lower extremity from dorsal foot to about three quarters of the way up the lower leg. Mildly less intense erythema. Urinary Catheter Management: Garber: Cath Placed During This Visit: yes, but has since been removed by the nurse Reason for Continuing Indwelling Catheter: Accurate Measurement of Urinary Output in Critically Ill Patients Urinary Catheter Date of Insertion: 12/16/23 Date Urinary Catheter Removed: 12/20/23 Time Urinary Catheter Discontinued: 19:31 Data 12/22/23 05:49 12/22/23 05:49 Micro: Microbiology 12/16/23 17:06 Blood Culture - Final Blood 12/20/23 Unknown Gram Stain - Final Other Source Body Fluid Culture - Preliminary A&P Assessment and plan (1) Acute encephalopathy: (2) Septic shock: (3) Left leg cellulitis: (4) Sepsis: Qualifiers: Sepsis type: Streptococcus, other Sepsis acute organ dysfunction status: with acute organ dysfunction Severe sepsis acute organ dysfunction type: encephalopathy Severe sepsis shock status: without septic shock Qualified Code(s): A40.8 - Other streptococcal sepsis; R65.20 - Severe sepsis without septic shock; G93.41 - Metabolic encephalopathy (5) Metabolic acidosis: (6) Hypoalbuminemia: (7) Urinary tract infection: Qualifiers: Hematuria presence: with hematuria Urinary tract infection type: acute cystitis Qualified Code(s): N30.01 - Acute cystitis with hematuria (8) Hyperkalemia: Plan Large hematoma collection around the left hip: Discussed with orthopedics regarding evaluation, concern with positive Gram stain. Cultures so far reviewed without further growth. MRI is being obtained by orthopedics. Initially requesting to go home, however, on discussion with her now agreeable to stay but requesting for opinion from another orthopedic doctor. Please contact surgeon on-call tomorrow. With risk for lower leg amputation she states she would really want Dr. Mayers to perform it if he were available. Continue IV antibiotics. Reviewed CBC, BMP, vitals. On Zosyn, vancomycin. Reassess renal function with risk of renal dysfunction with Zosyn and Vanco combination. Suspected hematoma but question whether any superimposed infection of the hematoma possibly spread from the bed infection and left lower limb is unanswered. At risk of DVT. SCD on 1 arm if possible. Not on anticoagulation due to hematoma. Severe hypokalemia: Replaced. Hypomagnesemia: Given replacement. Recheck. Hypernatremia: Improved. Stop D5W. Oral intake is tolerating. Reassess chemistry. Acute anemia: Hemoglobin reviewed, 7.7. Recheck CBC. Hemoglobin up to 7.9 after RBC transfusion. Anticoagulation held. Large hematoma around the left hip. Severe symptomatic acute blood loss anemia. With encephalopathy. Tachycardia in the 90s. At risk of further bleeding, hemorrhagic shock. Complicated UTI: Reviewed urine culture, noted growing Klebsiella. Continue Zosyn. With acute encephalopathy, sepsis, noted more than 100,000 gram-negative rods in urine. Follow-up cultures. Continue IV antibiotics. Monitor for risk of kidney injury with combination of Zosyn and vancomycin. Kidney function reviewed. Reassessment chemistry requested. Acute encephalopathy: Resolving. Severe anxiety today. Resumed some of her home medications including diazepam, Gabapentin. Has methadone listed, but it appears is not from [facility]. If able to confirm dosing with dispensary resume as well. Sounds to hold improving she is awake and alert, but confused. Continues to have sepsis with leukocytosis, fevers, continue treatment as above. Continue to reorient. Concern for Methamphetamine use and/or withdrawal. Seizure precautions. Monitor vitals. Monitor on telemetry. She is more alert, still not oriented, confused. Continue treatment of underlying infections, reassess for possibility of abscess at the site of hematoma surrounding the left hip. Continue to reorient. Acute metabolic encephalopathy secondary to multiple foci of infection, sepsis, septic shock. Some improvement in mental status, today she is responding to voice, opens eyes. Still lethargic, falls asleep promptly after. Did squeeze hand on command. Continue treatment of infections. Continue to reorient. CT abdomen pelvis additionally with left lower lobe opacification, pneumonia versus atelectasis. Incentive spirometer. Antibiotics as above. Incidentally also noted abnormal left hip joint, advanced degenerative changes. Synovial thickening. Prior intramedullary rodding of left femur. Sepsis, septic shock: Resolved Hypoalbuminemia: Encourage oral intake is tolerating. -Poor nutrition -stop IV albumin Urinary tract infection: Reviewed CT, no obstructive uropathy noted. Continue empiric antibiotic coverage. Reviewed urine culture, Klebsiella KERRY: Reviewed renal function. KERRY resolving. Reduce albumin infusions. Reduce maintenance IV fluid. Left leg cellulitis and soft tissue infection: Will need to revisit again regarding consideration of amputation given extent and lack of improvement in cellulitis. Per significant other it seems that she did take antibiotics after discharge, although he is not entirely sure. It seems she was rather adamant about not having amputation. Now with resolving encephalopathy she is mostly lucid, understands the significance of extent of cellulitis and wounds of left lower extremity, difficulties with healing, now also apparent spread of infection to large hematoma over the left hip states may be agreeable to amputation. -Blood cultures So far negative -Vancomycin, Zosyn Hyperkalemia Resolved Hyponatremia, resolved Acute kidney injury, resolved Type 2 diabetes mellitus, sliding scale History of hepatic encephalopathy, ammonia levels normal History of PE, cannot take Eliquis due to altered mental status, hold heparin drip due to hematoma Attestations 2 Medical Necessity Statement*: Continue admission for assessment management of sepsis, extensive cellulitis left lower extremity, large hematoma around the left hip, additional assessment for possible infected hematoma, acute encephalopathy. Diagnoses Acute encephalopathy G93.40 Septic shock A41.9; R65.21 Left leg cellulitis L03.116 Sepsis due to other Streptococcus species with encephalopathy without septic shock A40.8; R65.20; G93.41 Sepsis type: Streptococcus, other Sepsis acute organ dysfunction status: with acute organ dysfunction Severe sepsis acute organ dysfunction type: encephalopathy Severe sepsis shock status: without septic shock Metabolic acidosis E87.20 Hypoalbuminemia E88.09 Urinary tract infection N30.01 Hematuria presence: with hematuria Urinary tract infection type: acute cystitis Hyperkalemia E87.5
[2023-12-22] MEDS: vancomycin 1,250 MG/250 ML PIGGYBACK 200 MG IV (23:25)
[2023-12-23] VITALS (7 sets, daily range): BP systolic 118–135; BP diastolic 69–78; PULSE 86–96; RESP 16–18; TEMP 36.6–37.5; O2SAT 93–97; BMI 28.0
[2023-12-23] MEDS: ondansetron 2 mg/ML SDV 2 mL 4 MG IVP (00:16)
[2023-12-23] MEDS: venlafaxine ER (24HR) 150 mg Capsule PO (05:15)
[2023-12-23 05:51] LABS: Basophils % 0.2 %; Eosinophils # 0.3 10^3/uL (0.0-0.8); Eosinophils % 1.7 %; Hematocrit 27.8 % (36-47); Lymphocytes % 5.9 %; Mean Corpuscular HGB Conc 29.5 g/dL (30-55); Mean Corpuscular Hemoglobin 27.9 pg (27-33); Mean Corpuscular Volume 94.6 fl (85-98); Mean Platelet Volume 10.7 fL (7.4-10.4); Monocytes # 0.5 10^3/uL (0.2-0.9); Monocytes % 3.1 %; Neutrophils # 15.37 10^3/uL (1.8-7.7); Neutrophils % 87.8 %; Nucleated Red Blood Cells % 0 %; Platelet Count 207 10^3/cmm (157-399); Red Blood Count 2.94 10^6/uL (3.85-5.65)
[2023-12-23 06:12] LABS: Blood Urea Nitrogen 18 mg/dL (8-23); Calcium 7.8 mg/dL (8.5-10.5); Carbon Dioxide 20 mmol/L (22-29); Chloride 109 mmol/L (98-107); Glomerular Filtration Rate 161.2 mL/min (90-130); Glucose 100 mg/dL (65-115); Osmolality Calculated 290 mOsm/kg (285-295); Sodium 139 mmol/L (136-145)
[2023-12-23 06:14] LABS: Anion Gap 13.4 (5-19); Potassium 3.4 mmol/L (3.5-5.1)
[2023-12-23 06:15] LABS: Magnesium 1.9 mg/dL (1.7-2.3)
[2023-12-23 06:38] LABS: Glucose Point of Care 116 mg/dL (70-110)
[2023-12-23] MEDS: gabapentin 300 mg Capsule PO ×3 (08:00→20:20)
--- NOTE | 2023-12-23 11:01 | P.PN_ITS ---
Subjective 2 Subjective: Patient resting in bed. Patient has a large Ortega Aileen lesion on her left hip that is possibly infected. Cultures are still pending. At this point I discussed surgical I&D of this area. Patient stated that she would prefer to have a another physician treat her. I respected her wishes. Vitals/I&O/Wt Last Vital Signs Temp 99 F 12/23/23 08:25 Pulse 92 12/23/23 08:25 Resp 18 12/23/23 08:25 BP 125/76 12/23/23 08:25 Pulse Ox 93 12/23/23 08:25 O2 Del Method Room Air 12/23/23 08:25 O2 Flow Rate 2 12/22/23 08:00 12/22/23 12/23/23 12/23/23 22:59 06:59 14:59 Intake Total 170 / 1920 756 / 2676 50 / 50 Balance 170 / 1620 756 / 2376 50 / 50 Weight last 48 hrs Weight 178 lb 11.2 oz Weight 168 lb 8 oz Physical Exam 2 Narrative: Asleep in the bed when I came in. Urinary Catheter Management: Garber: Cath Placed During This Visit: yes, but has since been removed by the nurse Reason for Continuing Indwelling Catheter: Accurate Measurement of Urinary Output in Critically Ill Patients Urinary Catheter Date of Insertion: 12/16/23 Date Urinary Catheter Removed: 12/20/23 Time Urinary Catheter Discontinued: 19:31 Data 12/23/23 05:13 12/23/23 05:13 Micro: Microbiology 12/16/23 17:06 Blood Culture - Final Blood 12/20/23 Unknown Gram Stain - Final Other Source Body Fluid Culture - Preliminary A&P Assessment and plan (1) Hematoma and contusion: Patient needs a below the knee amputation as well as I&D of her hip. Discussed surgical options with her. At this point she would like to have another physician treat her. She stated that she did not not like my work . I respect her wishes. At this point I will sign off. Attestations 2 Medical Necessity Statement*: Per primary service Coding Level of Care Code Acute Code for [facility] Fwd Diagnoses Hematoma and contusion T14.8XXA
[2023-12-23 11:42] LABS: Glucose Point of Care 103 mg/dL (70-110)
--- NOTE | 2023-12-23 12:25 | PC.SOCIAL ---
IMM Updated Updated pt on IMM. No questions voiced. Provided pt a copy. Initialed, dated, & timed copy in chart.
[2023-12-23] MEDS: piperacillin-tazobactam 3.375 GM in sodium chloride 0.9% (plus) 50 ML IV ×2 (14:28→23:48)
[2023-12-23] MEDS: HYDROmorphone 1 mg/mL INJ 1 mL 0.4 MG IVP ×2 (14:32→20:20)
[2023-12-23 16:38] LABS: Glucose Point of Care 108 mg/dL (70-110)
--- NOTE | 2023-12-23 17:15 | P.PN_ITS ---
Subjective 2 Subjective: Hospital course, labs appreciated. Examination patient lying comfortably in bed. Awake and alert. Denies any nausea, vomiting, headache. Has remained hemodynamically stable and afebrile on room air. States pain is more localized in the left hip otherwise controlled. Patient is n.p.o. for orthopedic procedure. Vitals/I&O/Wt Last Vital Signs Temp 97.9 F 12/23/23 17:00 Pulse 93 12/23/23 17:00 Resp 18 12/23/23 17:00 BP 135/74 12/23/23 17:00 Pulse Ox 94 12/23/23 17:00 O2 Del Method Room Air 12/23/23 17:00 O2 Flow Rate 2 12/22/23 08:00 12/23/23 12/23/23 12/23/23 06:59 14:59 22:59 Intake Total 756 / 4486 50 / 50 Balance 756 / 2376 50 / 50 Weight last 48 hrs Weight 81.057 kg Weight 76.43 kg Physical Exam 2 Const: COMMON NORMALS: no acute distress and alert O RIENTATION/CONSCIOUSNESS: Yes awake, Yes oriented to person, Yes oriented to place and Yes oriented to time HENMT: COMMON NORMALS: oropharynx normal Eye: COMMON NORMALS: Equal, round and reactive pupils present PUPIL: Yes Equal, round and reactive pupils present Neck/C-Spine: COMMON NORMALS: no JVD Lymph: LYMPHATIC: no lymphadenopathy noted Resp: COMMON NORMALS: normal respiratory effort, No retractions, No use of accessory muscles and clear to auscultation bilaterally AUSCULTATION: clear to auscultation bilaterally Cardio: COMMON NORMALS: no JVD, regular rate, regular rhythm, S1 normal heart sound present, S2 normal heart sound present and No murmurs present (Cardio) RATE: regular rate RHYTHM: regular rhythm HEART SOUNDS: S1 normal heart sound present and S2 normal heart sound present GI: COMMON NORMALS: Normal to inspection, nondistended, normoactive bowel sounds present, Soft to palpation and non-tender PALPATION: Yes Soft to palpation : COMMON NORMALS: Yes no CVA tenderness BLADDER/KIDNEY EXAM: Yes no CVA tenderness Back/Pelvis: COMMON NORMALS: no CVA tenderness Extremity: NARRATIVE EXTREMITY EXAM: Right above-knee amputation Left lower extremity, multiple superficial diabetic ulcers throughout the left lal, left lower extremity, left heel, appear infected, erythematous, actively draining, foul-smelling OTHER: R AKA Large area of fluctuant, tender swelling around left hip/pelvis. Neuro: SENSORIUM/ORIENTATION: Yes alert, Yes oriented to person, Yes oriented to place and Yes oriented to time Skin: NARRATIVE SKIN EXAM: Improvement in diffuse erythema, show ulcerations, mild weeping with blister ration of left lower extremity from dorsal foot to about three quarters of the way up the lower leg. Mildly less intense erythema. Urinary Catheter Management: Garber: Cath Placed During This Visit: yes, but has since been removed by the nurse Reason for Continuing Indwelling Catheter: Accurate Measurement of Urinary Output in Critically Ill Patients Urinary Catheter Date of Insertion: 12/16/23 Date Urinary Catheter Removed: 12/20/23 Time Urinary Catheter Discontinued: 19:31 Data 12/23/23 05:13 12/23/23 05:13 Micro: Microbiology 12/16/23 17:06 Blood Culture - Final Blood 12/23/23 14:20 Blood Culture - Preliminary Blood SPECIMEN COLLECTED 12/23/23 14:15 Blood Culture - Preliminary Blood SPECIMEN COLLECTED 12/20/23 Unknown Gram Stain - Final Other Source Body Fluid Culture - Final 12/16/23 17:06 Blood Culture - Final Blood A&P Assessment and plan (1) Acute encephalopathy: (2) Left leg cellulitis: (3) Sepsis: Qualifiers: Sepsis acute organ dysfunction status: with acute organ dysfunction S epsis type: Streptococcus, other Severe sepsis acute organ dysfunction type: e ncephalopathy Severe sepsis shock status: without septic shock Qualified Code(s): A40.8 - Other streptococcal sepsis; R65.20 - Severe sepsis without septic shock; G93.41 - Metabolic encephalopathy (4) Hypoalbuminemia: (5) Urinary tract infection: Qualifiers: Hematuria presence: with hematuria Urinary tract infection type: acute cystitis Qualified Code(s): N30.01 - Acute cystitis with hematuria (6) Infected fluid collection: (7) Essential hypertension: (8) Pulmonary embolism: (9) Diabetes mellitus, type II: Plan Large hematoma collection around the left hip: Post diagnostic tap. Gram stain from the fluid growing gram-positive cocci in chains. Patient will need further I&D for source control. Continues to have leukocytosis. As per past culture history she has a history of group G Streptococcus, Pseudomonas and Klebsiella pneumonia. Plan to continue with IV vancomycin and Zosyn. History of MRSA in the past. Left leg cellulitis: Antibiotics as above. Orthopedic team has recommended AKA. Patient is agreeable now. Patient today states she is not agreeable to have procedure with Dr. Simons though is okay to go ahead with procedure with other Ortho. Discussed with Dr. Hussein. He wants patient to be seen by Dr. Mayers first as in the past patient had agreed for the procedure with Dr. Mayers before going ahead with the procedure. Will await their conversation with the patient. Change n.p.o. to diet for now. History of pulmonary embolism: Still not sure if and when the patient will have procedure depending on the orthopedics once on the case. Hold off on home dose of Eliquis. Not getting heparin drip because of significant hematoma with shock on presentation. Hold off on heparin drip for now. Anemia: Patient does have significant hematoma in the leg. Continue to monitor hemoglobin daily. Target hemoglobin more than 7 for now. Will transfuse accordingly. Protonix IV daily. Staff epidermidis bacteremia: Blood cultures from admission 1 out of 4 bottles positive. Given hematoma in place cannot rule out being actual bacteremia. Repeat blood cultures. PICC line was placed on admission. For now we will continue with PICC line. If repeat blood cultures are positive will remove PICC line accordingly. Acute encephalopathy: Present on admission. In setting of sepsis and polypharmacy. Resolved for now. Continue diazepam as needed, gabapentin at 300 mg 3 times daily. Patient not on methadone anymore. Continue with home dose of Effexor 150 mg daily. Full code Cardiac diet Protonix for PUD prophylaxis Cannot do SCD as patient has right leg AKA, left leg cellulitis. Cannot do medical prophylaxis because of acute anemia requiring transfusion. Discharge plan: Patient will need IV antibiotics on discharge because of bacteremia. Patient is still pending amputation. 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 Will continue to follow. Case management alerted. Attestations 2 Medical Necessity Statement*: Requires further hospitalization for management of infected large hematoma of left hip, left leg cellulitis requiring amputation Diagnoses Acute encephalopathy G93.40 Left leg cellulitis L03.116 Sepsis due to other Streptococcus species with encephalopathy without septic shock A40.8; R65.20; G93.41 Sepsis acute organ dysfunction status: with acute organ dysfunction Sepsis type: Streptococcus, other Severe sepsis acute organ dysfunction type: encephalopathy Severe sepsis shock status: without septic shock Hypoalbuminemia E88.09 Urinary tract infection N30.01 Hematuria presence: with hematuria Urinary tract infection type: acute cystitis Infected fluid collection Essential hypertension I10 Pulmonary embolism I26.99 Type 2 diabetes mellitus with other diabetic arthropathy, 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
--- NOTE | 2023-12-23 18:48 | PM.MISC ---
Miscellaneous Note Purpose of Documentation: Miscellaneous note: Was contacted by Dr. Pineda as today about possibly seeing the patient as initially my partner Dr. Simons had seen evaluated the patient and give recommendations going to be set up for surgery today however according to patient's wishes she wishes to have another provider instead of Dr Simons. As a result i was contacted. reviewing of her record she has had report with Dr. Champagne and according to last hospitalist note says she would be okay with him performing possibly an amputation as a result I spoke with Dr. Champagne as well with Dr. Pineda. Dr. Champagne was to see and evaluate the patient, given his orthopedic hardware as well as complex fluid accumulation around the hip he does not feel as though he be the best surgeon for this patient. He states the patient is clinically stable at this point in time we will proceed with consultation orthopedics myself Dr. Hussein for evaluation of patient as well as possible treatment recommendations. Will see and evaluate patient with a full consult note tomorrow. Patric Hussein, DO Orthopedic surgery
[2023-12-23] MEDS: vancomycin 1,250 MG/250 ML PIGGYBACK 250 MG IV (23:36)
[2023-12-23] MEDS: pantoprazole 40 mg SDV IVP (23:37)
[2023-12-23] MEDS: acetaminophen 325 mg Tablet 650 MG PO (23:37)
[2023-12-24] VITALS (8 sets, daily range): BP systolic 111–143; BP diastolic 68–82; PULSE 89–105; RESP 16–26; TEMP 36.6–38.4; O2SAT 92–95; BMI 27.6
[2023-12-24] MEDS: HYDROmorphone 1 mg/mL INJ 1 mL 0.4 MG IVP ×4 (02:42→20:01)
[2023-12-24] MEDS: piperacillin-tazobactam 3.375 GM in sodium chloride 0.9% (plus) 50 ML IV ×3 (05:46→22:19)
[2023-12-24 08:26] LABS: Glucose Point of Care 131 mg/dL (70-110)
--- NOTE | 2023-12-24 08:32 | P.CONIM_ITS ---
Providers/Reason For Consult 2 Consulting Physician/Specialty*: Patric Hussein DO/orthopedic surgery Reason for Consult*: Left hip infected hematoma Requesting Physician: Dr. Pineda Attending Physician: Eduardo Pineda MD Primary Care Provider: Wilner Hdez DO History of Present Illness History of Present Illness Polina Snyder is a 63 year old female patient was admitted back on 12/16/2023. Patient is admitted for altered mental status and sepsis tract. History of a right AKA. She has done well with this. She has a left knee contracture and ongoing diabetic foot ulcerations wound being managed by the wound care team plan was for possibly an outpatient amputation either below the knee versus [id number] given the contracture potentially an [id number] amputation. She was found down prior to her hospitalization by the family and brought into the hospital and she was found to have a large fluid collection around the left hip not associated with the left lower extremity. At this point in time my previous partner Dr. Dr. Simons was evaluated aspiration was requested performed of this large fluid collection above the fascia that was noted on CT scan. Concern for possible infection was noted as there was Gram stain was positive. MRI performed showing a Ortega Romi lesion. Plan was Dr. Dr. Simons was planning on taking this patient to the OR however per patient's request she wishes for him not to perform the procedure and as result I was asked for a evaluation by the hospitalist team as another consult to discuss treatment options with patient. Patient on my evaluation is alert and oriented and is able to make decisions. She is accompanied by her partner in the room. At this point in time she does appear to be stable. At this point in time her main complaint is her left hip and she would like to have the pressure relieved of her hip as this is causing her significant issues and she cannot lay on this. She states she would like to maintain her limb is much as possible. Would prefer just addressing the hip at this time. Denies any fever chills or chest pain at this time. Denies any nausea or vomiting. Review of Systems 2 General: Reports: 10 or more systems reviewed and unremarkable except in HPI and below Medications/Allergies Home Medications Medication Instructions Recorded Confirmed Last Taken Type Nubia Lift #1 ea 12/25/22 12/16/23 Unknown Rx Hospital bed #1 ea 03/22/23 12/16/23 Unknown Rx fenofibrate micronized 200 mg 200 mg PO BEDTIME 06/11/23 12/16/23 10/25/23 History capsule pantoprazole 40 mg tablet,delayed 40 mg PO BID 06/11/23 12/16/23 10/26/23 History release prochlorperazine maleate 10 mg 10 mg PO BID PRN Nausea And 06/11/23 12/16/23 Unknown History tablet (Compazine) Vomiting albuterol sulfate 90 mcg/actuation 2 inh inhalation Q4H PRN shortness 07/17/23 12/16/23 Unknown Rx aerosol inhaler of breath or wheezing #18 grams budesonide 0.5 mg/2 mL suspension 0.5 mg inhalation BID PRN 07/17/23 12/16/23 Unknown History for nebulization Shortness Of Breath Power chair repair #1 ea 07/30/23 12/16/23 Unknown Rx silver sulfadiazine 1 % topical 1 applic topical BID #20 grams 09/09/23 12/16/23 Unknown Rx cream (Silvadene) ketoconazole 2 % shampoo See Rx Instructions .Route 09/18/23 12/16/23 Unknown Rx .COMPLEX #120 mL furosemide 40 mg tablet 40 mg PO DAILY PRN Edema 10/26/23 12/16/23 Unknown History potassium chloride 20 mEq 20 meq PO DAILY PRN unknown 10/26/23 12/16/23 Unknown History tablet,extended release diazepam 5 mg tablet 5 mg PO QAM PRN anxiety #2 tabs 11/03/23 12/16/23 10/26/23 Rx see pharmacy comment lactulose 10 gram oral packet 10 g PO DAILY encephalopathy #15 ea 11/03/23 12/16/23 Unknown Rx apixaban 5 mg tablet (Eliquis) 5 mg PO BID@0900,2100 pulmonary 11/15/23 12/16/23 Unknown Rx embolism #60 tabs venlafaxine 150 mg 150 mg PO QAM #90 caps 12/12/23 12/16/23 Unknown Rx capsule,extended release 24 hr Methadone (Unknown Source) See Rx Instructions .Route .COMPLEX 12/16/23 12/16/23 Unknown History atenolol 100 mg tablet 100 mg PO BID 12/16/23 12/16/23 Unknown History gabapentin 300 mg capsule 300 mg PO TID 12/16/23 12/16/23 Unknown History metformin 500 mg tablet,extended 500 mg PO DAILY 12/16/23 12/16/23 Unknown History release 24 hr venlafaxine 75 mg capsule,extended 75 mg PO DAILY 12/16/23 12/16/23 Unknown History release 24 hr Allergies Allergy/AdvReac Type Severity Reaction Status Date / Time nalbuphine Allergy Unknown sick to Verified 10/07/23 09:01 stomach adhesive tape Allergy rash Verified 10/07/23 09:01 amitriptyline Allergy Unknown Verified 10/07/23 09:01 morphine Allergy ADR-Vomitin Verified 12/25/23 11:52 g nitrofurantoin Allergy ADR-Vomitin Verified 10/07/23 09:01 [From Macrobid] g Sulfa (Sulfonamide Allergy Itch all Verified 10/07/23 09:01 Antibiotics) over Current Medications Generic Name Dose Route Start Last Admin Trade Name Freq PRN Reason Stop Dose Admin Acetaminophen 650 mg 12/16/23 22:02 12/23/23 23:37 Acetaminophen 325 Mg Tablet PO 650 mg Q6H PRN Administration Mild/Mod Pain Or Temp >/= 101 Diazepam 5 mg 12/22/23 12:58 12/22/23 13:50 Diazepam 5 Mg Tablet PO 5 mg DAILY PRN Administration anxiety Gabapentin 300 mg 12/22/23 13:05 12/23/23 20:20 Gabapentin 300 Mg Capsule PO 300 mg TID RANJIT Administration Hydromorphone HCl 0.4 mg 12/20/23 21:39 12/24/23 02:42 Hydromorphone 1 Mg/Ml Inj 1 Ml IVP 0.4 mg Q4H PRN Administration SEVERE PAIN Vancomycin/PEG/NADA/Lysine/Water 1,250 mg in 250 mls @ 250 mls/hr 12/17/23 23:00 12/24/23 00:36 Vancocin IV Infused Q24H RANJIT Infusion Piperacillin Sod/Tazobactam 50 mls @ 12.5 mls/hr 12/23/23 14:30 12/24/23 05:46 Sod 3.375 gm/ Sodium Chloride IV 12.5 mls/hr Q8H RANJIT Administration Insulin Glargine 5 unit 12/20/23 12:00 12/23/23 08:01 Insulin Glargine 100 Units/1 Ml SUBCUT Not Given DAILY [facility] Insulin Human Lispro 0 unit 12/20/23 18:00 12/24/23 08:31 Insulin Lispro 100 Unit/1 Ml SUBCUT Not Given WM&BEDTIME [facility] Protocol Non-Formulary Medication 200 mg 12/22/23 21:00 12/23/23 20:19 Fenofibrate Micronized PO Not Given BEDTIME RANJIT Ondansetron HCl 4 mg 12/16/23 22:02 12/23/23 00:16 Ondansetron 2 Mg/Ml Sdv 2 Ml IVP 4 mg Q8H PRN Administration vomiting, or N/V if npo Pantoprazole Sodium 40 mg 12/16/23 22:15 12/23/23 23:37 Pantoprazole 40 Mg Sdv IVP 40 mg Q24H RANJIT Administration Venlafaxine HCl 150 mg 12/22/23 13:05 12/24/23 05:53 Venlafaxine Er (24hr) 150 Mg Capsule PO Not Given QAM RANJIT PFSH Acute 2 PFSH: Medical History AMS (altered mental status) COPD (chronic obstructive pulmonary disease) Metabolic encephalopathy Degenerative joint disease of left knee Closed fracture of left distal femur Hypertension Closed femur fracture Venous stasis ulcer Cellulitis Diabetic neuropathy associated with type 2 diabetes mellitus Diastolic CHF Anemia Substance abuse Depression with anxiety Chronic pain History of DVT of lower extremity post-operative Hyperlipidemia Hypertension History of cardioversion history of SVT vs for other arrhythmia Methamphetamine use Diabetes mellitus, type II Gzcgvno-Yieac-Xufrt disease-like deformity of foot right Lung cancer Torticollis, acquired Has had good results with Botox in the past Lumbar radiculopathy Cervical post-laminectomy syndrome Surgical History Status post above-knee amputation of right lower extremity Hx of neck surgery x 2, posterior laminectomy and cervical fusion with hardware in place, limited ROM neck at baseline Hx of total knee replacement (~2010) Right History of arthroplasty of left knee (~1976) History of partial hysterectomy Hx of dilation and curettage Hx of tubal ligation Hx of appendectomy Family History Family/Other Hypertension Depression Anxiety Diabetes Father Aneurysm Mother Hypertension Brother Diabetes Sister Diabetes Social History Smoking and tobacco/nicotine status: current every day tobacco/nicotine user Alcohol intake: never Substance/Drug Use: current Substance/Drug use frequency: few times a month Additional social history: unknown if patient continues to smoke, documented to smoke previously Marital status: Female Reproductive History: Spontaneous abortions: No Vitals/I&O/Wt Last Vital Signs Temp 99.1 F 12/24/23 07:55 Pulse 96 12/24/23 07:55 Resp 18 12/24/23 07:55 BP 134/82 12/24/23 07:55 Pulse Ox 94 12/24/23 07:55 O2 Del Method Room Air 12/24/23 07:55 O2 Flow Rate 2 12/22/23 08:00 12/23/23 12/24/23 12/24/23 22:59 06:59 14:59 Intake Total 830 / 880 300 / 1180 Balance 830 / 880 300 / 1180 Weight last 48 hrs Weight 176 lb 9 oz Weight 178 lb 11.2 oz Physical Exam 2 Narrative: Examination of the left lower extremity: Examination left lower extremity Coban and dressing applied to the left lower extremity just below the mid substance of the lal around the toes of the feet. Significant dry skin appreciated throughout. She has a right AKA noted that is healed well. She has not 90 degree knee flexion contracture with minimal range of motion of less than 5 degrees of the knee. There is no erythema from above the dressing to the left lower extremity as this was not subsequently taken down. As result does not appear that there is any erythema tracking up proximally or associated at all with the left hip. The left hip has a large palpable fluctuance all from the posterior gluteus region to the anterior medial thigh. This is significantly swollen compartments do appear to be soft and compressible and no acute signs of compartment syndrome she can wiggle her toes. Patient does have warmth and erythema along the left hip and significant tenderness to palpation. She is able to tolerate logroll examination. Urinary Catheter Management: Garber: Cath Placed During This Visit: yes, but has since been removed by the nurse Reason for Continuing Indwelling Catheter: Accurate Measurement of Urinary Output in Critically Ill Patients Urinary Catheter Date of Insertion: 12/16/23 Date Urinary Catheter Removed: 12/20/23 Time Urinary Catheter Discontinued: 19:31 Data 12/27/23 03:35 12/27/23 03:35 Micro: Microbiology 12/16/23 17:06 Blood Culture - Final Blood 12/23/23 14:20 Blood Culture - Preliminary Blood SPECIMEN COLLECTED 12/23/23 14:15 Blood Culture - Preliminary Blood SPECIMEN COLLECTED 12/20/23 Unknown Gram Stain - Final Other Source Body Fluid Culture - Final MRI: Radiologist's impression: MR/MR hip LT wo con* [id number] IMPRESSION: 1. Left lateral hip collection extending into the anterior thigh with internal fat signal suggestive of Jordan Llanos lesion. Superimposed infection is not totally excluded. 2. 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 3. Moderate to severe atrophy of the left gluteus, left hamstring and left quadriceps muscles. Strain of the adductor muscles. A&P Assessment and plan (1) Infected hematoma: (2) Hematoma and contusion: (3) Ankle wound: Qualifiers: Encounter type: initial encounter Laterality: left Qualified Code(s): S91.002A - Unspecified open wound, left ankle, initial encounter (4) Right above-knee amputee: Plan Chart reviewed Labs reviewed Imaging reviewed Case discussed with Dr. Champagne, Dr. Simons , Dr. Pineda This point in time she does not wish to have Dr. Dr. Simons performed the procedure and Dr. Champagne does not feel comfortable given there is orthopedic hardware. I had a detailed discussion with the patient about her treatment options about above the knee amputation left hip I&D or both at the same time through shared decision-making she elects to proceed with a left hip I&D as this is causing her biggest issue and she like to maintain her limb is always possible this does not appear to be causing her acute illness as this looks fairly contained just based off of her dressings as this is within the confines of her dressing, her main area of concern is the large fluid collection Jordan Llanos appears to be possibly an infected hematoma due to her fall and being found down. As result through shared decision-making she elects proceed with a left hip irrigation debridement. She understands the ins and outs procedure the risk benefits complication alternatives of surgery through shared decision- making elects proceed with surgical intervention we will get her added on surgery schedule on Saturday she will be n.p.o. night before. All questions have been answered. Coding Level of Care Code Acute Code for Chg Fwd Diagnoses Infected hematoma T14.8XXA; L08.9 Hematoma and contusion T14.8XXA Wound of left ankle, initial encounter S91.002A Encounter type: initial encounter Laterality: left Right above-knee amputee Z89.611 Time Spent (min) 60
[2023-12-24] MEDS: gabapentin 300 mg Capsule PO ×3 (08:39→20:06)
[2023-12-24] MEDS: insulin glargine 100 units/1 mL 5 UNIT SUBCUT (08:39)
[2023-12-24] MEDS: diazePAM 5 mg Tablet PO (09:49)
[2023-12-24 11:46] LABS: Glucose Point of Care 306 mg/dL (70-110)
[2023-12-24 11:47] LABS: Basophils % 0.1 %; Eosinophils # 0.2 10^3/uL (0.0-0.8); Eosinophils % 1.2 %; Hematocrit 27.5 % (36-47); Lymphocytes # 0.7 10^3/uL (0.8-4.8); Lymphocytes % 5.3 %; Mean Corpuscular HGB Conc 30.2 g/dL (30-55); Mean Corpuscular Hemoglobin 27.8 pg (27-33); Mean Platelet Volume 10.1 fL (7.4-10.4); Monocytes # 0.4 10^3/uL (0.2-0.9); Monocytes % 2.9 %; Neutrophils # 12.27 10^3/uL (1.8-7.7); Neutrophils % 89.5 %; Nucleated Red Blood Cells % 0 %; Platelet Count 304 10^3/cmm (157-399); Red Blood Count 2.99 10^6/uL (3.85-5.65); White Blood Count 13.73 10^3/uL (3.29-11.43)
[2023-12-24 12:02] LABS: Alanine Aminotransferase < 5 U/L (0-33); Albumin Level 2.7 g/dL (3.5-5.2); Alkaline Phosphatase 146 U/L (35-105); Anion Gap 15.9 (5-19); Aspartate Amino Transferase 8 U/L (0-32); Blood Urea Nitrogen 13 mg/dL (8-23); Carbon Dioxide 21 mmol/L (22-29); Chloride 107 mmol/L (98-107); Globulin 3.1 g/dL (1.3-4.6); Glomerular Filtration Rate 124.6 mL/min (90-130); Glucose 230 mg/dL (65-115); Osmolality Calculated 299 mOsm/kg (285-295); Sodium 141 mmol/L (136-145); Total Bilirubin 0.8 mg/dL (0.15-1.2); Total Protein 5.8 g/dL (6.6-8.7)
[2023-12-24] MEDS: insulin lispro 100 unit/1 mL SUBCUT ×2 (12:13→21:31)
[2023-12-24 12:31] LABS: Potassium 2.9 mmol/L (3.5-5.1)
--- NOTE | 2023-12-24 14:43 | P.PN_ITS ---
Subjective 2 Subjective: Laying comfortably in bed on examination today. Awake and alert. Overnight patient had Tmax of 101.3 Fahrenheit. Remains. Hemodynamically stable. Asking if she can eat a regular diet. Vitals/I&O/Wt Last Vital Signs Temp 98.0 F 12/24/23 12:00 Pulse 89 12/24/23 12:00 Resp 18 12/24/23 12:00 BP 120/75 12/24/23 12:00 Pulse Ox 95 12/24/23 12:00 O2 Del Method Room Air 12/24/23 12:00 O2 Flow Rate 2 12/22/23 08:00 12/23/23 12/24/23 12/24/23 22:59 06:59 14:59 Intake Total 830 / 880 300 / 1180 530 / 530 Balance 830 / 880 300 / 1180 530 / 530 Weight last 48 hrs Weight 80.087 kg Weight 81.057 kg Physical Exam 2 Const: COMMON NORMALS: no acute distress and alert O RIENTATION/CONSCIOUSNESS: Yes awake, Yes oriented to person, Yes oriented to place and Yes oriented to time HENMT: COMMON NORMALS: oropharynx normal Eye: COMMON NORMALS: Equal, round and reactive pupils present PUPIL: Yes Equal, round and reactive pupils present Neck/C-Spine: COMMON NORMALS: no JVD Lymph: LYMPHATIC: no lymphadenopathy noted Resp: COMMON NORMALS: normal respiratory effort, No retractions, No use of accessory muscles and clear to auscultation bilaterally AUSCULTATION: clear to auscultation bilaterally Cardio: COMMON NORMALS: no JVD, regular rate, regular rhythm, S1 normal heart sound present, S2 normal heart sound present and No murmurs present (Cardio) RATE: regular rate RHYTHM: regular rhythm HEART SOUNDS: S1 normal heart sound present and S2 normal heart sound present GI: COMMON NORMALS: Normal to inspection, nondistended, normoactive bowel sounds present, Soft to palpation and non-tender PALPATION: Yes Soft to palpation : COMMON NORMALS: Yes no CVA tenderness BLADDER/KIDNEY EXAM: Yes no CVA tenderness Back/Pelvis: COMMON NORMALS: no CVA tenderness Extremity: NARRATIVE EXTREMITY EXAM: Right above-knee amputation Left lower extremity, multiple superficial diabetic ulcers throughout the left lal, left lower extremity, left heel, appear infected, erythematous, actively draining, foul-smelling OTHER: R AKA Large area of fluctuant, tender swelling around left hip/pelvis. Neuro: SENSORIUM/ORIENTATION: Yes alert, Yes oriented to person, Yes oriented to place and Yes oriented to time Skin: NARRATIVE SKIN EXAM: Improvement in diffuse erythema, show ulcerations, mild weeping with blister ration of left lower extremity from dorsal foot to about three quarters of the way up the lower leg. Mildly less intense erythema. Urinary Catheter Management: Garber: Cath Placed During This Visit: yes, but has since been removed by the nurse Reason for Continuing Indwelling Catheter: Accurate Measurement of Urinary Output in Critically Ill Patients Urinary Catheter Date of Insertion: 12/24/23 Urinary Catheter Time of Insertion: 10:00 Date Urinary Catheter Removed: 12/20/23 Time Urinary Catheter Discontinued: 19:31 Data 12/24/23 11:07 12/24/23 11:07 Micro: Microbiology 12/23/23 14:20 Blood Culture - Preliminary Blood NEGATIVE TO DATE 12/23/23 14:15 Blood Culture - Preliminary Blood NEGATIVE TO DATE 12/16/23 17:06 Blood Culture - Final Blood 12/20/23 Unknown Gram Stain - Final Other Source Body Fluid Culture - Final A&P Assessment and plan (1) Acute encephalopathy: (2) Left leg cellulitis: (3) Sepsis: Qualifiers: Sepsis type: Streptococcus, other Sepsis acute organ dysfunction status: with acute organ dysfunction Severe sepsis acute organ dysfunction type: encephalopathy Severe sepsis shock status: without septic shock Qualified Code(s): A40.8 - Other streptococcal sepsis; R65.20 - Severe sepsis without septic shock; G93.41 - Metabolic encephalopathy (4) Hypoalbuminemia: (5) Urinary tract infection: Qualifiers: Hematuria presence: with hematuria Urinary tract infection type: acute cystitis Qualified Code(s): N30.01 - Acute cystitis with hematuria (6) Infected fluid collection: (7) Essential hypertension: (8) Pulmonary embolism: (9) Diabetes mellitus, type II: Plan Large hematoma collection around the left hip: Post diagnostic tap. Gram stain from the fluid growing gram-positive cocci in chains. Patient will need further I&D for source control. Continues to have leukocytosis. As per past culture history she has a history of group G Streptococcus, Pseudomonas and Klebsiella pneumonia. Plan to continue with IV vancomycin and Zosyn. History of MRSA in the past. Left leg cellulitis: Antibiotics as above. Orthopedic team has recommended AKA. Patient is agreeable now. Patient today states she is not agreeable to have procedure with Dr. Simons though is okay to go ahead with procedure with other Ortho. Discussed with Dr. Hussein. He wants patient to be seen by Dr. Mayers first as in the past patient had agreed for the procedure with Dr. Mayers before going ahead with the procedure. Will await their conversation with the patient. Change n.p.o. to diet for now. History of pulmonary embolism: Still not sure if and when the patient will have procedure depending on the orthopedics once on the case. Hold off on home dose of Eliquis. Not getting heparin drip because of significant hematoma with shock on presentation. Hold off on heparin drip for now. Anemia: Patient does have significant hematoma in the leg. Continue to monitor hemoglobin daily. Target hemoglobin more than 7 for now. Will transfuse accordingly. Protonix IV daily. Staff epidermidis bacteremia: Blood cultures from admission 1 out of 4 bottles positive. Given hematoma in place cannot rule out being actual bacteremia. Repeat blood cultures. PICC line was placed on admission. For now we will continue with PICC line. If repeat blood cultures are positive will remove PICC line accordingly. Acute encephalopathy: Present on admission. In setting of sepsis and polypharmacy. Resolved for now. Continue diazepam as needed, gabapentin at 300 mg 3 times daily. Patient not on methadone anymore. Continue with home dose of Effexor 150 mg daily. Full code Cardiac diet Protonix for PUD prophylaxis Cannot do SCD as patient has right leg AKA, left leg cellulitis. Cannot do medical prophylaxis because of acute anemia requiring transfusion. Discharge plan: Patient will need IV antibiotics on discharge because of bacteremia. Patient is still pending amputation. 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 Will continue to follow. Case management alerted. Plan for the day: Follow-up repeat blood cultures. Continue with current IV antibiotics. Leukocytosis seems to be improving. Replace potassium with 80 mg of oral. Plan for I&D of the hip infected fluid tomorrow. N.p.o. after midnight. No plan for AKA. PICC line already in place. If repeat blood cultures are also positive will remove PICC line otherwise we will keep in place. Most likely patient will need IV antibiotics for at least 2 weeks after debridement. Hemoglobin so far stable. History of iron deficiency anemia. Already received transfusion during this hospitalization. Will start on IV iron supplementation. Continue other chronic medications. Discharge plan: Patient will need IV antibiotics as an outpatient. Given history of meth abuse in the past patient will not be able to discharge home on IV antibiotics. Most likely will need aggressive wound care as well. Plan to discharge to SNF versus swing bed versus LTAC. Discussed care plan of care with orthopedics team. Appreciate recommendations. Discussed the treatment plan with the patient and she is agreeable. Attestations 2 Medical Necessity Statement*: Requires further hospitalization for management of infected large hematoma of the left hip, large left leg cellulitis, staff epidermidis bacteremia while patient awaits I&D and possible AKA and safe discharge planning is Diagnoses Acute encephalopathy G93.40 Left leg cellulitis L03.116 Sepsis due to other Streptococcus species with encephalopathy without septic shock A40.8; R65.20; G93.41 Sepsis type: Streptococcus, other Sepsis acute organ dysfunction status: with acute organ dysfunction Severe sepsis acute organ dysfunction type: encephalopathy Severe sepsis shock status: without septic shock Hypoalbuminemia E88.09 Urinary tract infection N30.01 Hematuria presence: with hematuria Urinary tract infection type: acute cystitis Infected fluid collection Essential hypertension I10 Pulmonary embolism I26.99 Type 2 diabetes mellitus with other diabetic arthropathy, 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
[2023-12-24] MEDS: iron sucrose 200 MG in sodium chloride 0.9% (100 ml) 100 ML 220 MG IV (14:58)
[2023-12-24] MEDS: potassium chloride ER 20 mEq Tablet 80 MEQ PO (14:59)
[2023-12-24 16:54] LABS: Glucose Point of Care 132 mg/dL (70-110)
[2023-12-24 21:20] LABS: Glucose Point of Care 143 mg/dL (70-110)
[2023-12-24] MEDS: pantoprazole 40 mg SDV IVP (22:41)
[2023-12-24] MEDS: vancomycin 1,250 MG/250 ML PIGGYBACK 250 MG IV (23:09)
[2023-12-25] VITALS (48 sets, daily range): BP systolic 75–171; BP diastolic 44–128; PULSE 69–103; RESP 10–22; TEMP 36.2–37; O2SAT 88–100
[2023-12-25] MEDS: HYDROmorphone 1 mg/mL INJ 1 mL 0.4 MG IVP ×2 (00:09→08:52)
[2023-12-25] MEDS: piperacillin-tazobactam 3.375 GM in sodium chloride 0.9% (plus) 50 ML IV ×2 (05:53→22:36)
[2023-12-25 06:12] LABS: Basophils % 0.2 %; Eosinophils # 0.2 10^3/uL (0.0-0.8); Eosinophils % 1.3 %; Hematocrit 28.2 % (36-47); Lymphocytes % 5.8 %; Mean Corpuscular HGB Conc 29.4 g/dL (30-55); Mean Corpuscular Hemoglobin 27.9 pg (27-33); Mean Corpuscular Volume 94.9 fl (85-98); Mean Platelet Volume 9.6 fL (7.4-10.4); Monocytes # 0.7 10^3/uL (0.2-0.9); Monocytes % 3.8 %; Neutrophils # 15.12 10^3/uL (1.8-7.7); Neutrophils % 88.3 %; Nucleated Red Blood Cells % 0 %; Platelet Count 374 10^3/cmm (157-399); Red Blood Count 2.97 10^6/uL (3.85-5.65); Red Cell Distribution Width 19.4 % (12.1-15.1); White Blood Count 17.15 10^3/uL (3.29-11.43)
[2023-12-25 06:28] LABS: Alanine Aminotransferase < 5 U/L (0-33); Albumin Level 2.3 g/dL (3.5-5.2); Alkaline Phosphatase 119 U/L (35-105); Anion Gap 13.9 (5-19); Aspartate Amino Transferase 7 U/L (0-32); Blood Urea Nitrogen 10 mg/dL (8-23); Calcium 7.5 mg/dL (8.5-10.5); Carbon Dioxide 21 mmol/L (22-29); Chloride 109 mmol/L (98-107); Globulin 3.2 g/dL (1.3-4.6); Glomerular Filtration Rate 224.7 mL/min (90-130); Glucose 103 mg/dL (65-115); Osmolality Calculated 289 mOsm/kg (285-295); Potassium 3.9 mmol/L (3.5-5.1); Sodium 140 mmol/L (136-145); Total Bilirubin 0.7 mg/dL (0.15-1.2); Total Protein 5.5 g/dL (6.6-8.7)
[2023-12-25 06:31] LABS: Glucose Point of Care 84 mg/dL (70-110)
[2023-12-25] MEDS: gabapentin 300 mg Capsule PO (09:44)
[2023-12-25] MEDS: insulin glargine 100 units/1 mL 5 UNIT SUBCUT (09:45)
[2023-12-25 11:22] LABS: Glucose Point of Care 105 mg/dL (70-110)
--- NOTE | 2023-12-25 12:03 | PC.SOCIAL ---
IMM updated Updated pt on IMM. No questions voiced. Provided pt a copy. Initialed, dated, & timed copy in chart.
--- NOTE | 2023-12-25 12:33 | P.ANESASSM_ITS ---
Pre-Anesthetic Assessment Height/Weight: Height 1.7 m Weight 81.783 kg Temp Pulse Resp BP Pulse Ox O2 Del Method O2 Flow Rate 98.2 F 88 16 145/88 95 Room Air 2 12/25/23 12:05 12/25/23 12:05 12/25/23 12:05 12/25/23 12:05 12/25/23 12:05 12/25/23 12:05 12/22/23 08:00 Operation Date: 12/25/23 16:45 Proposed Procedures p Incision & Drainage Left Hip(Left) - Patric Keenan, DO Familial anesthetic complications: none Was Beta Lester taken within 24 hours: Yes Was Clonidine taken within 24 hours: N/A Last intake: Intake Last Liquid Date 12/24/23 Last Liquid Time 23:55 Last Solid Date 12/24/23 Last Solid Time 18:00 Social Tobacco and No alcohol Encouraged smoking cessation & reaching out to PCP for assistance Exam alert, oriented x 3, clear to auscultation bilaterally and regular rate & rhythm Airway Mallampati: Class III Dentition: other (no teeth) Pulmonary Hx lung cancer (nodules) CV/HEM Hypertension Hx PE PVCs/PACs EF 58%, mild LVH Metabolic Diabetes Mellitus Anesthetic Plan ASA status: 4 Anesthesia: General Risk of > 500 ml blood loss (7ml/kg in children): No Medications/Allergies Home Medications Medication Instructions Recorded Confirmed Last Taken Type Nubia Lift #1 ea 12/25/22 12/16/23 Unknown Rx Hospital bed #1 ea 03/22/23 12/16/23 Unknown Rx fenofibrate micronized 200 mg 200 mg PO BEDTIME 06/11/23 12/16/23 10/25/23 History capsule pantoprazole 40 mg tablet,delayed 40 mg PO BID 06/11/23 12/16/23 10/26/23 History release prochlorperazine maleate 10 mg 10 mg PO BID PRN Nausea And 06/11/23 12/16/23 Unknown History tablet (Compazine) Vomiting albuterol sulfate 90 mcg/actuation 2 inh inhalation Q4H PRN shortness 07/17/23 12/16/23 Unknown Rx aerosol inhaler of breath or wheezing #18 grams budesonide 0.5 mg/2 mL suspension 0.5 mg inhalation BID PRN 07/17/23 12/16/23 Unknown History for nebulization Shortness Of Breath Power chair repair #1 ea 07/30/23 12/16/23 Unknown Rx silver sulfadiazine 1 % topical 1 applic topical BID #20 grams 09/09/23 12/16/23 Unknown Rx cream (Silvadene) ketoconazole 2 % shampoo See Rx Instructions .Route 09/18/23 12/16/23 Unknown Rx .COMPLEX #120 mL furosemide 40 mg tablet 40 mg PO DAILY PRN Edema 10/26/23 12/16/23 Unknown History potassium chloride 20 mEq 20 meq PO DAILY PRN unknown 10/26/23 12/16/23 Unknown History tablet,extended release diazepam 5 mg tablet 5 mg PO QAM PRN anxiety #2 tabs 11/03/23 12/16/23 10/26/23 Rx see pharmacy comment lactulose 10 gram oral packet 10 g PO DAILY encephalopathy #15 ea 11/03/23 12/16/23 Unknown Rx apixaban 5 mg tablet (Eliquis) 5 mg PO BID@0900,2100 pulmonary 11/15/23 12/16/23 Unknown Rx embolism #60 tabs venlafaxine 150 mg 150 mg PO QAM #90 caps 12/12/23 12/16/23 Unknown Rx capsule,extended release 24 hr Methadone (Unknown Source) See Rx Instructions .Route .COMPLEX 12/16/23 12/16/23 Unknown History atenolol 100 mg tablet 100 mg PO BID 12/16/23 12/16/23 Unknown History gabapentin 300 mg capsule 300 mg PO TID 12/16/23 12/16/23 Unknown History metformin 500 mg tablet,extended 500 mg PO DAILY 12/16/23 12/16/23 Unknown History release 24 hr venlafaxine 75 mg capsule,extended 75 mg PO DAILY 12/16/23 12/16/23 Unknown History release 24 hr Allergies Allergy/AdvReac Type Severity Reaction Status Date / Time nalbuphine Allergy Unknown sick to Verified 10/07/23 09:01 stomach adhesive tape Allergy rash Verified 10/07/23 09:01 amitriptyline Allergy Unknown Verified 10/07/23 09:01 morphine Allergy ADR-Vomitin Verified 12/25/23 11:52 g nitrofurantoin Allergy ADR-Vomitin Verified 10/07/23 09:01 [From Macrobid] g Sulfa (Sulfonamide Allergy Itch all Verified 10/07/23 09:01 Antibiotics) over Current Medications Generic Name Dose Route Start Last Admin Trade Name Jensen PRN Reason Stop Dose Admin Acetaminophen 650 mg 12/16/23 22:02 12/23/23 23:37 Acetaminophen 325 Mg Tablet PO 650 mg Q6H PRN Administration Mild/Mod Pain Or Temp >/= 101 Diazepam 5 mg 12/22/23 12:58 12/24/23 09:49 Diazepam 5 Mg Tablet PO 5 mg DAILY PRN Administration anxiety Gabapentin 300 mg 12/22/23 13:05 12/25/23 09:44 Gabapentin 300 Mg Capsule PO 300 mg TID RANJIT Administration Hydromorphone HCl 0.4 mg 12/20/23 21:39 12/25/23 08:52 Hydromorphone 1 Mg/Ml Inj 1 Ml IVP 0.4 mg Q4H PRN Administration SEVERE PAIN Vancomycin/PEG/NADA/Lysine/Water 1,250 mg in 250 mls @ 250 mls/hr 12/17/23 23:00 12/25/23 01:12 Vancocin IV Infused Q24H RANJIT Infusion Piperacillin Sod/Tazobactam 50 mls @ 12.5 mls/hr 12/23/23 14:30 12/25/23 09:55 Sod 3.375 gm/ Sodium Chloride IV Infused Q8H RANJIT Infusion Iron Sucrose 200 mg/ Sodium 110 mls @ 220 mls/hr 12/24/23 15:00 12/24/23 15:59 Chloride IV Infused Q24H RANJIT Infusion Insulin Glargine 5 unit 12/20/23 12:00 12/25/23 09:45 Insulin Glargine 100 Units/1 Ml SUBCUT 5 unit DAILY RANJIT Administration Insulin Human Lispro 0 unit 12/20/23 18:00 12/25/23 07:49 Insulin Lispro 100 Unit/1 Ml SUBCUT Not Given WM&BEDTIME [facility] Protocol Non-Formulary Medication 200 mg 12/22/23 21:00 12/24/23 20:03 Fenofibrate Micronized PO Not Given BEDTIME RANJIT Ondansetron HCl 4 mg 12/16/23 22:02 12/23/23 00:16 Ondansetron 2 Mg/Ml Sdv 2 Ml IVP 4 mg Q8H PRN Administration vomiting, or N/V if npo Pantoprazole Sodium 40 mg 12/16/23 22:15 12/24/23 22:41 Pantoprazole 40 Mg Sdv IVP 40 mg Q24H RANJIT Administration Venlafaxine HCl 150 mg 12/22/23 13:05 12/25/23 06:21 Venlafaxine Er (24hr) 150 Mg Capsule PO Not Given QAM RANJIT PFSH Anesthesia Medical History AMS (altered mental status) COPD (chronic obstructive pulmonary disease) Metabolic encephalopathy Degenerative joint disease of left knee Closed fracture of left distal femur Hypertension Closed femur fracture Venous stasis ulcer Cellulitis Diabetic neuropathy associated with type 2 diabetes mellitus Diastolic CHF Anemia Substance abuse Depression with anxiety Chronic pain History of DVT of lower extremity post-operative Hyperlipidemia Hypertension History of cardioversion history of SVT vs for other arrhythmia Methamphetamine use Diabetes mellitus, type II Kubjuig-Iknun-Jsifu disease-like deformity of foot right Lung cancer Torticollis, acquired Has had good results with Botox in the past Lumbar radiculopathy Cervical post-laminectomy syndrome Surgical History Status post above-knee amputation of right lower extremity Hx of neck surgery x 2, posterior laminectomy and cervical fusion with hardware in place, limited ROM neck at baseline Hx of total knee replacement (~2010) Right History of arthroplasty of left knee (~1976) History of partial hysterectomy Hx of dilation and curettage Hx of tubal ligation Hx of appendectomy Family History Family/Other Hypertension Depression Anxiety Diabetes Father Aneurysm Mother Hypertension Brother Diabetes Sister Diabetes Social History Smoking and tobacco/nicotine status: current every day tobacco/nicotine user Alcohol intake: never Substance/Drug Use: current Substance/Drug use frequency: few times a month Additional social history: unknown if patient continues to smoke, documented to smoke previously Marital status: Female Reproductive History Spontaneous abortions: No Data Anesthesia 12/25/23 05:56 12/25/23 05:56 Short CBC 12/24/23 12/25/23 Range/Units 11:07 05:56 WBC 13.73 H 17.15 H (3.29-11.43) 10^3/uL Hgb 8.30 L 8.30 L (11.27-16.99) g/dL Hct 27.5 L 28.2 L (36-47) % MCV 92.0 94.9 (85-98) fl Plt Count 304 D 374 (157-399) 10^3/cmm Neut % (Auto) 89.5 88.3 % Neut # (Auto) 12.27 H 15.12 H (1.8-7.7) 10^3/uL BMP 12/24/23 12/25/23 11:07 05:56 Sodium 141 140 Potassium 2.9 L 3.9 Chloride 107 109 H Carbon Dioxide 21 L 21 L BUN 13 10 Creatinine 0.5 0.3 L Glucose 230 H 103 Calcium 8.0 L 7.5 L Liver Function 12/24/23 12/25/23 Range/Units 11:07 05:56 Total Bilirubin 0.8 0.7 (0.15-1.2) mg/dL AST 8 7 (0-32) U/L ALT < 5 < 5 (0-33) U/L Alkaline Phosphatase 146 H 119 H (35-105) U/L Albumin 2.7 L 2.3 L (3.5-5.2) g/dL Microbiology 12/23/23 14:20 Blood Culture - Preliminary Blood NEGATIVE TO DATE 12/23/23 14:15 Blood Culture - Preliminary Blood NEGATIVE TO DATE Cardiac Studies: 2 Echocardiogram 06/13/23 Echocardiogram Limited Views 12/27/20 Echocardiogram Ultrasound 01/01/21
[2023-12-25] MEDS: sodium chloride 0.9% 1,000 ML 30 ML IV (12:41)
[2023-12-25 12:55] LABS: Glucose Point of Care 118 mg/dL (70-110)
[2023-12-25] MEDS: scopolamine 1.5 Patch 1 PATCH TRANSDERMA (13:23)
[2023-12-25] MEDS: ketorolac 30 mg/mL INJ IVP (13:23)
[2023-12-25] MEDS: acetaminophen 1,000 MG/100 ML PIGGYBACK 400 MG IV (13:24)
--- NOTE | 2023-12-25 13:26 | P.PN_ITS ---
Subjective 2 Subjective: Patient seen and examined preoperatively all questions been answered she elects proceed with surgical intervention today. Been n.p.o. since midnight. Agreed to just address the hip today. Vitals/I&O/Wt Last Vital Signs Temp 98.2 F 12/25/23 12:05 Pulse 88 12/25/23 12:05 Resp 16 12/25/23 12:05 BP 145/88 12/25/23 12:05 Pulse Ox 95 12/25/23 12:05 O2 Del Method Room Air 12/25/23 12:05 O2 Flow Rate 2 12/22/23 08:00 12/24/23 12/25/23 12/25/23 22:59 06:59 14:59 Intake Total 400 / 930 300 / 1230 50 / 50 Output Total 120 / 120 1400 / 1520 550 / 550 Balance 280 / 810 -1100 / -290 -500 / -500 Weight last 48 hrs Weight 180 lb 4.8 oz Weight 176 lb 9 oz Physical Exam 2 Narrative: Examination of the left lower extremity: Examination left lower extremity Coban and dressing applied to the left lower extremity just below the mid substance of the lal around the toes of the feet. Significant dry skin appreciated throughout. She has a right AKA noted that is healed well. She has not 90 degree knee flexion contracture with minimal range of motion of less than 5 degrees of the knee. There is no erythema from above the dressing to the left lower extremity as this was not subsequently taken down. As result does not appear that there is any erythema tracking up proximally or associated at all with the left hip. The left hip has a large palpable fluctuance all from the posterior gluteus region to the anterior medial thigh. This is significantly swollen compartments do appear to be soft and compressible and no acute signs of compartment syndrome she can wiggle her toes. Patient does have warmth and erythema along the left hip and significant tenderness to palpation. She is able to tolerate logroll examination. Urinary Catheter Management: Garber: Cath Placed During This Visit: yes, but has since been removed by the nurse Reason for Continuing Indwelling Catheter: Accurate Measurement of Urinary Output in Critically Ill Patients Urinary Catheter Date of Insertion: 12/24/23 Urinary Catheter Time of Insertion: 10:00 Date Urinary Catheter Removed: 12/20/23 Time Urinary Catheter Discontinued: 19:31 Data 12/27/23 03:35 12/27/23 03:35 Micro: Microbiology 12/23/23 14:20 Blood Culture - Preliminary Blood NEGATIVE TO DATE 12/23/23 14:15 Blood Culture - Preliminary Blood NEGATIVE TO DATE A&P Assessment and plan (1) Infected hematoma: (2) Hematoma and contusion: (3) Ankle wound: Qualifiers: Encounter type: initial encounter Laterality: left Qualified Code(s): S91.002A - Unspecified open wound, left ankle, initial encounter (4) Right above-knee amputee: Plan Chart reviewed Labs reviewed Imaging reviewed N.p.o. since midnight?plan to proceed with the OR today for left hip irrigation and debridement patient understands and agrees with current plan. All questions answered. Consent obtained. Attestations 2 Medical Necessity Statement*: Infected hematoma ongoing care requiring surgical intervention Coding Level of Care Code Acute Code for Chg Fwd Diagnoses Infected hematoma T14.8XXA; L08.9 Hematoma and contusion T14.8XXA Wound of left ankle, initial encounter S91.002A Encounter type: initial encounter Laterality: left Right above-knee amputee Z89.611
--- NOTE | 2023-12-25 13:26 | W.PM.OPSUD ---
Surgery/Procedure H&P Update DATE OF PROCEDURE: December 25, 2023 DATE H&P PERFORMED: 12/24/23 H&P UPDATE INFORMATION: I have reviewed H&P completed within last 30 days, I have examined patient prior to procedure and No changes to prior documentation CHANGES TO PREVIOUS DOCUMENTATION: Patient has concern for infected hematoma of the left hip with a Ortega Romi lesion. At this point in time we talked about her treatment options she in the process can be taken care of amputation in outpatient setting ultimately she would like to maintain her leg if possible and would like to just proceed with a left hip I&D we will proceed with a left hip evacuation hematoma as well as with irrigation and debridement. Patient understands the ins and outs procedure risk benefits complication alternatives of surgery and through shared decision make elects proceed with surgical intervention. All questions have been answered at this time. PREOP DIAGNOSIS: Left hip infected hematoma PRIMARY INDICATION FOR PROCEDURE: Left hip infected hematoma PLANNED PROCEDURE: Operation Date: 12/25/23 16:45 Proposed Procedures p Incision & Drainage Left Hip(Left) - Patric Hussein DO
[2023-12-25] MEDS: ceFAZolin 2,000 MG in sodium chloride 0.9% (plus) 50 ML 100 MG IV (13:31)
--- NOTE | 2023-12-25 13:38 | P.PN_ITS ---
Subjective 2 Subjective: Laying comfortably in bed on examination today. Awake and alert. Overnight patient had Tmax of 101.3 Fahrenheit. Remains. Hemodynamically stable. Asking if she can eat a regular diet. Vitals/I&O/Wt Last Vital Signs Temp 98.2 F 12/25/23 12:05 Pulse 88 12/25/23 12:05 Resp 16 12/25/23 12:05 BP 145/88 12/25/23 12:05 Pulse Ox 95 12/25/23 12:05 O2 Del Method Room Air 12/25/23 12:05 O2 Flow Rate 2 12/22/23 08:00 12/24/23 12/25/23 12/25/23 22:59 06:59 14:59 Intake Total 400 / 930 300 / 1230 50 / 50 Output Total 120 / 120 1400 / 1520 550 / 550 Balance 280 / 810 -1100 / -290 -500 / -500 Weight last 48 hrs Weight 81.783 kg Weight 80.087 kg Physical Exam 2 Const: COMMON NORMALS: no acute distress and alert O RIENTATION/CONSCIOUSNESS: Yes awake, Yes oriented to person, Yes oriented to place and Yes oriented to time HENMT: COMMON NORMALS: oropharynx normal Eye: COMMON NORMALS: Equal, round and reactive pupils present PUPIL: Yes Equal, round and reactive pupils present Neck/C-Spine: COMMON NORMALS: no JVD Lymph: LYMPHATIC: no lymphadenopathy noted Resp: COMMON NORMALS: normal respiratory effort, No retractions, No use of accessory muscles and clear to auscultation bilaterally AUSCULTATION: clear to auscultation bilaterally Cardio: COMMON NORMALS: no JVD, regular rate, regular rhythm, S1 normal heart sound present, S2 normal heart sound present and No murmurs present (Cardio) RATE: regular rate RHYTHM: regular rhythm HEART SOUNDS: S1 normal heart sound present and S2 normal heart sound present GI: COMMON NORMALS: Normal to inspection, nondistended, normoactive bowel sounds present, Soft to palpation and non-tender PALPATION: Yes Soft to palpation : COMMON NORMALS: Yes no CVA tenderness BLADDER/KIDNEY EXAM: Yes no CVA tenderness Back/Pelvis: COMMON NORMALS: no CVA tenderness Extremity: NARRATIVE EXTREMITY EXAM: Right above-knee amputation Left lower extremity, multiple superficial diabetic ulcers throughout the left lal, left lower extremity, left heel, appear infected, erythematous, actively draining, foul-smelling OTHER: R AKA Large area of fluctuant, tender swelling around left hip/pelvis. Neuro: SENSORIUM/ORIENTATION: Yes alert, Yes oriented to person, Yes oriented to place and Yes oriented to time Skin: NARRATIVE SKIN EXAM: Improvement in diffuse erythema, show ulcerations, mild weeping with blister ration of left lower extremity from dorsal foot to about three quarters of the way up the lower leg. Mildly less intense erythema. Urinary Catheter Management: Garber: Cath Placed During This Visit: yes, but has since been removed by the nurse Reason for Continuing Indwelling Catheter: Accurate Measurement of Urinary Output in Critically Ill Patients Urinary Catheter Date of Insertion: 12/24/23 Urinary Catheter Time of Insertion: 10:00 Date Urinary Catheter Removed: 12/20/23 Time Urinary Catheter Discontinued: 19:31 Data 12/25/23 05:56 12/25/23 05:56 Micro: Microbiology 12/23/23 14:20 Blood Culture - Preliminary Blood NEGATIVE TO DATE 12/23/23 14:15 Blood Culture - Preliminary Blood NEGATIVE TO DATE A&P Assessment and plan (1) Acute encephalopathy: (2) Left leg cellulitis: (3) Sepsis: Qualifiers: Sepsis type: Streptococcus, other Sepsis acute organ dysfunction status: with acute organ dysfunction Severe sepsis acute organ dysfunction type: encephalopathy Severe sepsis shock status: without septic shock Qualified Code(s): A40.8 - Other streptococcal sepsis; R65.20 - Severe sepsis without septic shock; G93.41 - Metabolic encephalopathy (4) Hypoalbuminemia: (5) Urinary tract infection: Qualifiers: Hematuria presence: with hematuria Urinary tract infection type: acute cystitis Qualified Code(s): N30.01 - Acute cystitis with hematuria (6) Infected fluid collection: (7) Essential hypertension: (8) Pulmonary embolism: (9) Diabetes mellitus, type II: Plan Large hematoma collection around the left hip: Post diagnostic tap. Gram stain from the fluid growing gram-positive cocci in chains. No growth on final cultures. Will order anaerobic cultures. Patient will need further I&D for source control. Continues to have leukocytosis. Plan for I&D of the wound today with orthopedics. No plan for AKA for now. As per past culture history she has a history of group G Streptococcus, Pseudomonas and Klebsiella pneumonia. Plan to continue with IV vancomycin and Zosyn. History of MRSA in the past. Left leg cellulitis: Antibiotics as above. Orthopedic team has recommended AKA. Patient was agreeable at first but currently is declining as per orthopedic team. Plan for I&D only with wound care going forward. History of pulmonary embolism: Eliquis is on hold given hematoma on admission. Will confirm with orthopedics team before restarting anticoagulation. Most likely will do heparin drip and then transition over to Eliquis. Anemia: Patient does have significant hematoma in the leg. Currently hemoglobin has remained stable. Continue to monitor hemoglobin daily. Target hemoglobin more than 7 for now. Will transfuse accordingly. Protonix IV daily. Staff epidermidis bacteremia: Blood cultures from admission 1 out of 4 bottles positive. Given hematoma in place cannot rule out being actual bacteremia. Repeat blood cultures from 12/23 so far negative. PICC line was placed on admission. For now we will continue with PICC line. If repeat blood cultures are positive will remove PICC line accordingly. Acute encephalopathy: Present on admission. Resolved. In setting of sepsis and polypharmacy. Continue diazepam as needed, gabapentin at 300 mg 3 times daily. Patient not on methadone anymore. Continue with home dose of Effexor 150 mg daily. Full code Cardiac diet Protonix for PUD prophylaxis Cannot do SCD as patient has right leg AKA, left leg cellulitis. Cannot do medical prophylaxis because of acute anemia requiring transfusion. Discharge plan: Patient will need IV antibiotics on discharge because of bacteremia. Patient is still pending amputation. 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 Will continue to follow. Case management alerted. Attestations 2 Medical Necessity Statement*: Requires further hospitalization for management of staff epidermidis bacteremia in setting of large infected hematoma of the hip, left leg cellulitis in a patient with a right AKA Diagnoses Acute encephalopathy G93.40 Left leg cellulitis L03.116 Sepsis due to other Streptococcus species with encephalopathy without septic shock A40.8; R65.20; G93.41 Sepsis type: Streptococcus, other Sepsis acute organ dysfunction status: with acute organ dysfunction Severe sepsis acute organ dysfunction type: encephalopathy Severe sepsis shock status: without septic shock Hypoalbuminemia E88.09 Urinary tract infection N30.01 Hematuria presence: with hematuria Urinary tract infection type: acute cystitis Infected fluid collection Essential hypertension I10 Pulmonary embolism I26.99 Type 2 diabetes mellitus with other diabetic arthropathy, 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
[2023-12-25] MEDS: vancomycin 1,000 MG SDV 1000 MG XX (15:00)
[2023-12-25] MEDS: vancomycin 1,000 MG SDV 3000 MG XX (15:00)
--- NOTE | 2023-12-25 15:51 | P.BOP_ITS ---
Date of Procedure: 12/25/2023 Surgeon: Patric Hussein DO Adult Education Manager(s): Josh Hussein PA-C Procedure(s) performed: Left hip hematoma evacuation 55 cm x 35 cm x 12 cm Left hip irrigation and debridement 55 cm x 35 cm x 12 cm Intraoperative cultures taken of infected hematoma Deep wound VAC application was applied Findings of the procedure(s): Patient was found to have a large infected hematoma to the left hip in accordance with measurements above. This had significant necrosis in the superficial space this went directly down to the fascia but the fascia to the hip was not violated this extended anteriorly as well as posteriorly through the gluteus region as well as to the upper border of the hip outside of the pelvis. Patient underwent hematoma evacuation as well as I&D with good debridement given the large size of I&D and noticeable necrosis of the subcutaneous tissue and Ortega Romi lesion laced deep wound VAC in place to help close down the space and plan for repeat I&D this coming Saturday. Patient was taken to PACU in stable condition she did have soft pressures postoperatively and currently being actively monitored by anesthesia will either return to the floor or ICU depending on her response and pressures and treatment. Family was called and spoken with afterwards and understand and agree with current plan. All questions answered. Estimated blood loss: 200 mL Hematoma 2000 mL Specimen(s) removed: Cultures of aerobic and anaerobic hematoma infected fluid Post-operative diagnosis: Infected left hip hematoma with Ortega Romi lesion
--- NOTE | 2023-12-25 15:51 | PM.PACU ---
PACU note Narrative: Patient is a 63-year-old female that just underwent a left hip I&D. Patient's blood pressures are, low here in PACU and they are getting continue monitoring them and she will either be sent back up to floor or possibly ICU pending blood pressures. Patient is alert and responding here in PACU. left hip wound VAC is on dry and in place. Dressing on lower leg and foot is dry and intact as well. Unable to perform any further assessment due to residual localized anesthetic. Exam: awake Disposition: back to floor (watching BP and pt could go to floor or ICU)
--- NOTE | 2023-12-25 15:55 | P.OP_ITS ---
Operative Report Date of procedure: December 25, 2023 Pre-op diagnosis: Left hip infected hematoma Post-op diagnosis: Same, joint not involved Post-op findings: See operative report narrative Procedure done: Left hip hematoma evacuation 55 cm x 35 cm x 12 cm (2000mL evacuated) Left hip irrigation and debridement 55 cm x 35 cm x 12 cm Intraoperative cultures taken of infected hematoma Deep wound VAC application was applied Implants: Deep wound VAC applied Specimens removed/disposition: Cultures of aerobic and anaerobic of hematoma performed Surgeon: Patric Hussein DO Public Address Servicer: Josh Hussein PA-C: CARSON was necessary for assistance in this case with leg positioning retraction and protection of neurovascular structures as well as assistance with debridement and irrigation as well as with VAC placement Anesthesia: General Estimated blood loss: 200mL None IV fluids: 400 mL Complications: Patient had soft pressures intraoperatively was appropriately treated and continued to have soft pressures despite treatment postoperatively in PACU and as result was subsequently taken to ICU Findings: See operative report narrative Condition: other (Taken to ICU awake and stable however requiring BPpressure monitoring and treatment) Disposition: ICU Brief History: Patient is a 63-year-old female who has a large hematoma with consistent with a Ortega Romi lesion of the left hip this all appears to be above the hip joint this fluid has been aspirated and concerns for infection. She has had a persistent white count. She has a history of an AKA on the right side. She also has diabetic foot wounds on the left side had previously been talking about an amputation at this point in time she like to maintain the leg continue with wound care and addressed the left hip. We talked about this in detail through shared decision makes this proceed with a left hip hematoma evacuation with irrigation and debridement. She understands and Zetts procedure risk benefits complication alternatives surgery through shared decision making lets proceed with surgical intervention all questions answered. Procedure: Patient was seen evaluate in the preoperative holding area. Consent was reviewed and signed with patient correct extremity was marked. Patient was then seen evaluated by anesthesia was cleared for surgery was taken back to the operative suite patient was then transported to the OR table and subsequently underwent anesthesia per the anesthesia part once properly anesthetized the left hip was then placed in lateral decubitus position with the left hip up with plan for incision and drainage. Lateral decubitus position was held and maintained with beanbag. Patient was then properly secured to the bed as well as all bony prominences well-padded patient appropriate secured to the bed. Left lower extremity was then prepped and draped in orthopedic fashion. Final timeout performed. Patient received appropriate preoperative antibiotics. Plan for direct lateral position centering over the greater trochanter and over the hematoma. Sharp scalpel incision was made through skin and subcutaneous tissue immediately encountered a large jenkins of murky brown purulent appearing hematoma. This was evacuated in total of 2000 mL. This was appropriately cultured and sent for microbiology. Once this was then performed I completely opened up the incision with electrocautery. Hemostasis was maintained and then subsequently encountered the IT band as well as the gluteal fascia. This is not disrupted there is no extent of the infection through this area. There was significant necrotic tissue throughout the wound bed this was subsequently measured to being 55 cm x 35 cm x 12 cm in size. All necrotic tissue of skin fascia fat muscle and tendon was appropriately debrided with rongeur curettage as well as sharp scalpel excision. This was all debrided to viable tissue. There was a large pocket anteriorly as well as posteriorly in the gluteal region and then directly over the IT band. Once this was then appropriately debrided I thoroughly irrigated the wound bed with 6 L Pulsavac normal saline. Then utilized diluted Betadine soak the wound for 5 minutes and then subsequently finalized the irrigation with 3 more liters of normal saline. Once I was satisfied with my debridement given the extent of this wound and infection I feel this would be appropriate for a repeat washout in 2 days. As result in order to encourage good healing as well as appropriate debridement I then subsequently elected to do a deep wound VAC placement. 2 large wound VAC sponges wound was placed anteriorly as well as posteriorly and then subsequently placed an appropriate wound border and then sealed the black foam wound VAC sponge in place cut appropriate hole and then hooked up to the suction to the wound VAC which had excellent seal and closing down of space. Patient was then subsequently awakened from anesthesia and taken to PACU in stable condition however she was requiring some pressure support and had soft pressures in PACU and as a result after being closely monitored decision was made to not return to the floor and transferred to the ICU postoperatively from PACU. Patient's family subsequently updated.: Disposition: Patient taken to ICU after being recovered in PACU. Patient had satisfactory debridement of the left hip as well as hematoma evacuation definitely concerning signs of infection but no tracking deep. We placed a deep wound VAC and plan to return to the OR on Saturday for repeat I&D and possible primary closure. Patient family understand agree with current plan. All questions answered.
[2023-12-25 16:46] LABS: Hematocrit 27.3 % (36-47); Mean Corpuscular HGB Conc 28.2 g/dL (30-55); Mean Corpuscular Hemoglobin 28.1 pg (27-33); Mean Corpuscular Volume 99.6 fl (85-98); Mean Platelet Volume 9.9 fL (7.4-10.4); Platelet Count 527 10^3/cmm (157-399); Red Blood Count 2.74 10^6/uL (3.85-5.65); Red Cell Distribution Width 19.7 % (12.1-15.1); White Blood Count 26.27 10^3/uL (3.29-11.43)
[2023-12-25] MEDS: albumin 25 G/100 ML BAG 60 G IV (16:59)
[2023-12-25 17:03] LABS: Total Cells Counted 100 (0-100)
--- NOTE | 2023-12-25 17:07 | PC.NURSE ---
Patient arrived to ICU at 1643, AOX4, Patient has no complaints of pain, PICC line in place and functioning, patient has wound vac in place and functioning, patient is on room air, see MAR and documented vitals.
[2023-12-25 17:11] LABS: Absolute Eosinophils 0.5 10^3/cmm (0.0-0.7); Absolute Neutrophil 23.6 10^3/cmm (1.4-6.5); Absolute Segmented Neutrophil 23.6 10/cmm (1.6-7.1); Basophils Absolute 0.3 10^3/cmm (0.0-0.2); Eosinophils 2 %; Lymphocytes 4 %; Lymphocytes Absolute 1.6 10^3/cmm (1.2-3.4); Monocytes Absolute 0.3 10^3/cmm (0.1-0.6); Platelet Estimate Increased (Normal)
[2023-12-25 17:12] LABS: Anisocytosis 2+; Hypochromasia 1+; Macrocytosis Trace; Poikilocytosis 1+; Polychromasia 1+
[2023-12-25 17:17] LABS: Segmented Neutrophils 90 %
[2023-12-25] MEDS: insulin lispro 100 unit/1 mL SUBCUT (17:50)
[2023-12-25] MEDS: sodium chloride 0.9% 1,000 ML 75 ML IV (17:51)
--- NOTE | 2023-12-25 17:52 | ANE.PACU2 ---
Inpatient post-anesthesia follow up: Airway intact: Yes Vital signs: Temperature 97.6 F Pulse Rate 92 Respiratory Rate 15 Blood Pressure 94/62 Pulse Oximetry 94 Oxygen Delivery Me thod Room Air Oxygen Flow Rate 2 Fraction of Inspir ed Oxygen Hydration adequate: Yes Nausea and vomiting: No Pain level: 1 Mental status: Baseline Additional Comments: To ICU for hypotension, actively infusing fluids. order for 1 unit to be transfused per Dr. Pineda and Hgb 7.7
[2023-12-25] MEDS: HYDROmorphone 1 mg/mL INJ 1 mL IVP (20:18)
[2023-12-25] MEDS: ondansetron 2 mg/ML SDV 2 mL 4 MG IVP (20:18)
[2023-12-25 20:40] LABS: Glucose Point of Care 110 mg/dL (70-110)
[2023-12-25 21:32] LABS: Glucose Point of Care 178 mg/dL (70-110)
[2023-12-25] MEDS: pantoprazole 40 mg SDV IVP (22:35)
[2023-12-25] MEDS: vancomycin 1,250 MG/250 ML PIGGYBACK 250 MG IV (23:22)
[2023-12-26] VITALS (39 sets, daily range): BP systolic 94–147; BP diastolic 45–77; PULSE 88–111; RESP 14–24; TEMP 36.4–37; O2SAT 73–100
[2023-12-26] MEDS: albumin 25 G/100 ML BAG 60 G IV ×3 (01:41→17:36)
[2023-12-26] MEDS: HYDROmorphone 1 mg/mL INJ 1 mL IVP (02:13)
[2023-12-26 05:24] LABS: Basophils % 0.2 %; Eosinophils # 0.2 10^3/uL (0.0-0.8); Eosinophils % 1.3 %; Hematocrit 21.4 % (36-47); Lymphocytes # 0.8 10^3/uL (0.8-4.8); Lymphocytes % 5.9 %; Mean Corpuscular HGB Conc 29.9 g/dL (30-55); Mean Corpuscular Hemoglobin 29.1 pg (27-33); Mean Corpuscular Volume 97.3 fl (85-98); Mean Platelet Volume 9.9 fL (7.4-10.4); Monocytes # 0.6 10^3/uL (0.2-0.9); Monocytes % 4.5 %; Neutrophils # 11.07 10^3/uL (1.8-7.7); Neutrophils % 87.5 %; Nucleated Red Blood Cells % 0 %; Platelet Count 317 10^3/cmm (157-399); Red Cell Distribution Width 17.9 % (12.1-15.1); White Blood Count 12.65 10^3/uL (3.29-11.43)
[2023-12-26 05:44] LABS: Alanine Aminotransferase < 5 U/L (0-33); Albumin Level 2.6 g/dL (3.5-5.2); Alkaline Phosphatase 74 U/L (35-105); Anion Gap 14.6 (5-19); Aspartate Amino Transferase 7 U/L (0-32); Blood Urea Nitrogen 11 mg/dL (8-23); Carbon Dioxide 21 mmol/L (22-29); Chloride 110 mmol/L (98-107); Globulin 2.1 g/dL (1.3-4.6); Glomerular Filtration Rate 224.7 mL/min (90-130); Glucose 116 mg/dL (65-115); Osmolality Calculated 294 mOsm/kg (285-295); Potassium 3.6 mmol/L (3.5-5.1); Sodium 142 mmol/L (136-145); Total Bilirubin 2.2 mg/dL (0.15-1.2); Total Protein 4.7 g/dL (6.6-8.7)
[2023-12-26] MEDS: sodium chloride 0.9% 1,000 ML 75 ML IV ×2 (05:50→20:18)
[2023-12-26] MEDS: venlafaxine ER (24HR) 150 mg Capsule PO (05:50)
[2023-12-26] MEDS: piperacillin-tazobactam 3.375 GM in sodium chloride 0.9% (plus) 50 ML IV ×3 (05:51→21:55)
[2023-12-26 07:23] LABS: Glucose Point of Care 101 mg/dL (70-110)
[2023-12-26] MEDS: gabapentin 300 mg Capsule PO ×3 (08:40→20:47)
[2023-12-26] MEDS: HYDROmorphone 1 mg/mL INJ 1 mL 0.2 MG IVP ×3 (08:40→20:47)
[2023-12-26] MEDS: insulin glargine 100 units/1 mL 5 UNIT SUBCUT (09:46)
[2023-12-26 11:11] LABS: Glucose Point of Care 109 mg/dL (70-110)
[2023-12-26 13:06] LABS: Hematocrit 23.8 % (36-47)
[2023-12-26] MEDS: iron sucrose 200 MG in sodium chloride 0.9% (100 ml) 100 ML 220 MG IV (14:20)
--- NOTE | 2023-12-26 14:43 | P.PN_ITS ---
Subjective 2 Subjective: No events overnight. Postoperatively patient was transferred to ICU because of hypotension. On examination today patient remains comfortably. Denies any nausea, vomiting, headache. Did not require Levophed to be started overnight for hypotension. Blood pressures have maintained over 65. Has remained afebrile otherwise. Wound VAC in place. Overnight 450 cc of bloody fluid in drain. Vitals/I&O/Wt Last Vital Signs Temp 98.6 F 12/26/23 09:16 Pulse 95 12/26/23 09:16 Resp 18 12/26/23 14:19 BP 145/77 12/26/23 09:16 Pulse Ox 100 12/26/23 14:19 O2 Del Method Room Air 12/26/23 01:00 O2 Flow Rate 2 12/22/23 08:00 12/25/23 12/26/23 12/26/23 22:59 06:59 14:59 Intake Total 450 / 550 1488.75 / 2038.75 300 / 300 Output Total 200 / 750 450 / 1200 Balance 250 / -200 1038.75 / 838.75 300 / 300 Weight last 48 hrs Weight 81 kg Weight 81.783 kg Physical Exam 2 Const: COMMON NORMALS: no acute distress and alert O RIENTATION/CONSCIOUSNESS: Yes awake, Yes oriented to person, Yes oriented to place and Yes oriented to time HENMT: COMMON NORMALS: oropharynx normal Eye: COMMON NORMALS: Equal, round and reactive pupils present PUPIL: Yes Equal, round and reactive pupils present Neck/C-Spine: COMMON NORMALS: no JVD Lymph: LYMPHATIC: no lymphadenopathy noted Resp: COMMON NORMALS: normal respiratory effort, No retractions, No use of accessory muscles and clear to auscultation bilaterally AUSCULTATION: clear to auscultation bilaterally Cardio: COMMON NORMALS: no JVD, regular rate, regular rhythm, S1 normal heart sound present, S2 normal heart sound present and No murmurs present (Cardio) RATE: regular rate RHYTHM: regular rhythm HEART SOUNDS: S1 normal heart sound present and S2 normal heart sound present GI: COMMON NORMALS: Normal to inspection, nondistended, normoactive bowel sounds present, Soft to palpation and non-tender PALPATION: Yes Soft to palpation : COMMON NORMALS: Yes no CVA tenderness BLADDER/KIDNEY EXAM: Yes no CVA tenderness Back/Pelvis: COMMON NORMALS: no CVA tenderness Extremity: NARRATIVE EXTREMITY EXAM: Right above-knee amputation Left lower extremity, multiple superficial diabetic ulcers throughout the left lal, left lower extremity, left heel, appear infected, erythematous, actively draining, foul-smelling OTHER: R AKA Large area of fluctuant, tender swelling around left hip/pelvis. Neuro: SENSORIUM/ORIENTATION: Yes alert, Yes oriented to person, Yes oriented to place and Yes oriented to time Skin: NARRATIVE SKIN EXAM: Improvement in diffuse erythema, show ulcerations, mild weeping with blister ration of left lower extremity from dorsal foot to about three quarters of the way up the lower leg. Mildly less intense erythema. Urinary Catheter Management: Garber: Cath Placed During This Visit: yes, but has since been removed by the nurse Reason for Continuing Indwelling Catheter: Accurate Measurement of Urinary Output in Critically Ill Patients Urinary Catheter Date of Insertion: 12/24/23 Urinary Catheter Time of Insertion: 10:00 Date Urinary Catheter Removed: 12/20/23 Time Urinary Catheter Discontinued: 19:31 Data 12/26/23 12:45 12/26/23 04:32 Micro: Microbiology 12/25/23 15:00 Gram Stain - Final Hip - #1 A&P Assessment and plan (1) Infected fluid collection: (2) Postoperative hypotension: (3) Postoperative anemia: (4) Sepsis: Qualifiers: Sepsis type: Streptococcus, other Sepsis acute organ dysfunction status: with acute organ dysfunction Severe sepsis acute organ dysfunction type: encephalopathy Severe sepsis shock status: without septic shock Qualified Code(s): A40.8 - Other streptococcal sepsis; R65.20 - Severe sepsis without septic shock; G93.41 - Metabolic encephalopathy (5) Left leg cellulitis: (6) Acute encephalopathy: (7) Hypoalbuminemia: (8) Urinary tract infection: Qualifiers: Hematuria presence: with hematuria Urinary tract infection type: acute cystitis Qualified Code(s): N30.01 - Acute cystitis with hematuria (9) Essential hypertension: (10) Pulmonary embolism: (11) Diabetes mellitus, type II: Plan Large hematoma collection around the left hip: Post I&D day 1. Plan for repeat washout on 12/27. N.p.o. after midnight. Patient had acute blood loss of 200 cc total 2 L of fluid was evacuated from the wound. Wound VAC in place. Appreciate orthopedic recommendations. Follow-up cultures. For now Gram stain shows GPC. Patient did develop postoperative hypotension due to postoperative blood loss. Received monitor PRBC yesterday. Hemoglobin down to 6.4 today. Getting monitor PRBC. Will repeat CBC and transfuse accordingly. Target hemoglobin more than 8. Leukocytosis slightly improving today. Continue with broad-spectrum antibiotics for now. As per past culture history she has a history of group G Streptococcus, Pseudomonas and Klebsiella pneumonia. Plan to continue with IV vancomycin and Zosyn. History of MRSA in the past. Left leg cellulitis: Antibiotics as above. Orthopedic team has recommended AKA. Patient was agreeable at first but currently is declining as per orthopedic team. History of pulmonary embolism: Eliquis is on hold given hematoma on admission. Will confirm with orthopedics team before restarting anticoagulation. Most likely will do heparin drip and then transition over to Eliquis. Anemia: Postoperative anemia. Target hemoglobin around 8. Post to the blood transfusion. Staff epidermidis bacteremia: Blood cultures from admission 1 out of 4 bottles positive. Given hematoma in place cannot rule out being actual bacteremia. Repeat blood cultures from 12/23 so far negative. PICC line was placed on admission. For now we will continue with PICC line. If repeat blood cultures are positive will remove PICC line accordingly. Acute encephalopathy: Present on admission. Resolved. In setting of sepsis and polypharmacy. Continue diazepam as needed, gabapentin at 300 mg 3 times daily. Patient not on methadone anymore. Continue with home dose of Effexor 150 mg daily. Full code Cardiac diet Protonix for PUD prophylaxis Cannot do SCD as patient has right leg AKA, left leg cellulitis. Cannot do medical prophylaxis because of acute anemia requiring transfusion. Discharge plan: Patient will need IV antibiotics on discharge because of bacteremia. Patient is still pending amputation. 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 Will continue to follow. Case management alerted. Attestations 2 Medical Necessity Statement*: Requires further hospitalization for management of postoperative anemia leading to postoperative hypotension in a patient with post I&D for infected hematoma of the hip, staph bacteremia while safe discharge planning discharge. Diagnoses Infected fluid collection Postoperative hypotension I95.81 Postoperative anemia D64.9 Sepsis due to other Streptococcus species with encephalopathy without septic shock A40.8; R65.20; G93.41 Sepsis type: Streptococcus, other Sepsis acute organ dysfunction status: with acute organ dysfunction Severe sepsis acute organ dysfunction type: encephalopathy Severe sepsis shock status: without septic shock Left leg cellulitis L03.116 Acute encephalopathy G93.40 Hypoalbuminemia E88.09 Urinary tract infection N30.01 Hematuria presence: with hematuria Urinary tract infection type: acute cystitis Essential hypertension I10 Pulmonary embolism I26.99 Type 2 diabetes mellitus with other diabetic arthropathy, 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
[2023-12-26 17:03] LABS: Glucose Point of Care 152 mg/dL (70-110)
[2023-12-26] MEDS: HYDROcodone-acetaminophen 5-325 mg Tablet 1 TAB PO (17:36)
[2023-12-26] MEDS: insulin lispro 100 unit/1 mL SUBCUT ×2 (17:37→20:47)
--- NOTE | 2023-12-26 17:43 | P.PN_ITS ---
Subjective 2 Subjective: Patient seen evaluated postoperative day 1. Pains controlled. Wound VAC has good seal of the roughly 450 output over the past 24 hours. Patient understands plan to return to the OR tomorrow. Vitals/I&O/Wt Last Vital Signs Temp 98.6 F 12/26/23 09:16 Pulse 104 H 12/26/23 14:00 Resp 18 12/26/23 14:19 BP 124/61 12/26/23 14:00 Pulse Ox 100 12/26/23 14:19 O2 Del Method Room Air 12/26/23 01:00 O2 Flow Rate 2 12/22/23 08:00 12/26/23 12/26/23 12/26/23 06:59 14:59 22:59 Intake Total 1488.75 / 2038.75 650 / 650 Output Total 450 / 1200 Balance 1038.75 / 838.75 650 / 650 Weight last 48 hrs Weight 178 lb 9.191 oz Weight 180 lb 4.8 oz Physical Exam 2 Narrative: Left hip wound VAC in place with good seal roughly 450 has had output over the past 24 hours. Good seal was noted maintenance of closure of space appreciated tenderness palpation around the incision site left hip, compartments soft compressible. No signs of recurrent infection Urinary Catheter Management: Garber: Cath Placed During This Visit: yes, but has since been removed by the nurse Reason for Continuing Indwelling Catheter: Accurate Measurement of Urinary Output in Critically Ill Patients Urinary Catheter Date of Insertion: 12/24/23 Urinary Catheter Time of Insertion: 10:00 Date Urinary Catheter Removed: 12/20/23 Time Urinary Catheter Discontinued: 19:31 Data 12/29/23 03:49 12/29/23 03:49 Micro: Microbiology 12/25/23 15:00 Gram Stain - Final Hip - #1 Wound Culture - Preliminary A&P Assessment and plan (1) Infected hematoma: (2) Hematoma and contusion: (3) Ankle wound: Qualifiers: Encounter type: initial encounter Laterality: left Qualified Code(s): S91.002A - Unspecified open wound, left ankle, initial encounter (4) Right above-knee amputee: Plan Labs reviewed N.p.o. at midnight tonight plan to take to the OR tomorrow for left hip irrigation and debridement with possible primary closure suspect likely placed deep drains patient understands incidence of this procedure and elects proceed all questions were answered at this time we will get her added onto the surgery schedule tomorrow. Communicated plan with hospitalist. Attestations 2 Medical Necessity Statement*: Ongoing care infected left hip hematoma Coding Level of Care Code Acute Code for Chg Fwd Diagnoses Infected hematoma T14.8XXA; L08.9 Hematoma and contusion T14.8XXA Wound of left ankle, initial encounter S91.002A Encounter type: initial encounter Laterality: left Right above-knee amputee Z89.611
--- NOTE | 2023-12-26 17:52 | PC.NURSE ---
Shift summary: blood administered per TAR, after reviewing following Hgb Dr. Pineda ordered to hold 2nd unit. uneventful shift
[2023-12-26 20:41] LABS: Glucose Point of Care 162 mg/dL (70-110)
[2023-12-26] MEDS: diazePAM 5 mg Tablet PO (20:47)
[2023-12-26] MEDS: pantoprazole 40 mg SDV IVP (21:55)
[2023-12-26 22:24] LABS: Vancomycin Trough 11.7 ug/mL (10-15)
[2023-12-26] MEDS: vancomycin 1,250 MG/250 ML PIGGYBACK 250 MG IV (22:57)
[2023-12-27] VITALS (30 sets, daily range): BP systolic 108–170; BP diastolic 54–92; PULSE 80–106; RESP 13–30; TEMP 36.6–37.2; O2SAT 91–100
[2023-12-27] MEDS: albumin 25 G/100 ML BAG 60 G IV ×3 (01:50→18:09)
[2023-12-27] MEDS: HYDROcodone-acetaminophen 5-325 mg Tablet 1 TAB PO ×2 (01:59→19:01)
[2023-12-27 04:21] LABS: Basophils % 0.3 %; Eosinophils # 0.3 10^3/uL (0.0-0.8); Eosinophils % 2.6 %; Lymphocytes % 9.8 %; Mean Corpuscular HGB Conc 31.7 g/dL (30-55); Mean Corpuscular Hemoglobin 28.6 pg (27-33); Mean Corpuscular Volume 90.2 fl (85-98); Mean Platelet Volume 9.7 fL (7.4-10.4); Monocytes # 0.8 10^3/uL (0.2-0.9); Monocytes % 7.8 %; Neutrophils # 7.82 10^3/uL (1.8-7.7); Neutrophils % 78.9 %; Nucleated Red Blood Cells % 0 %; Platelet Count 332 10^3/cmm (157-399); Red Blood Count 2.24 10^6/uL (3.85-5.65); Red Cell Distribution Width 22.6 % (12.1-15.1); White Blood Count 9.91 10^3/uL (3.29-11.43)
[2023-12-27 04:41] LABS: Alanine Aminotransferase < 5 U/L (0-33); Albumin Level 2.8 g/dL (3.5-5.2); Alkaline Phosphatase 73 U/L (35-105); Anion Gap 12.9 (5-19); Aspartate Amino Transferase 6 U/L (0-32); Blood Urea Nitrogen 8 mg/dL (8-23); Calcium 6.6 mg/dL (8.5-10.5); Carbon Dioxide 21 mmol/L (22-29); Chloride 113 mmol/L (98-107); Glomerular Filtration Rate 224.7 mL/min (90-130); Glucose 81 mg/dL (65-115); Osmolality Calculated 295 mOsm/kg (285-295); Sodium 144 mmol/L (136-145); Total Bilirubin 0.8 mg/dL (0.15-1.2); Total Protein 4.8 g/dL (6.6-8.7)
[2023-12-27 04:51] LABS: Potassium 2.9 mmol/L (3.5-5.1)
[2023-12-27 04:52] LABS: Hematocrit 20.2 % (36-47)
[2023-12-27] MEDS: sodium chloride 0.9% 100 mL Bag 50 ML IV (05:16)
[2023-12-27] MEDS: piperacillin-tazobactam 3.375 GM in sodium chloride 0.9% (plus) 50 ML IV ×3 (05:35→18:09)
[2023-12-27] MEDS: venlafaxine ER (24HR) 150 mg Capsule PO (05:35)
[2023-12-27] MEDS: potassium chloride ER 20 mEq Tablet 40 MEQ PO ×3 (05:35→08:40)
--- NOTE | 2023-12-27 06:23 | PC.NURSE ---
Patient rested well overnight. Wound Vac output of 325ml, urine 1200mls. Pain treated with frequently. Left lower leg outer dressings replaced, no orders noted for wound care on leg. Wound Vac needing frequent manipulation to enable pressures. Blood unit started this A.M. due to low Hgb of 6.4. frequent subtle turns provided.
[2023-12-27 06:55] LABS: Glucose Point of Care 85 mg/dL (70-110)
[2023-12-27] MEDS: HYDROmorphone 1 mg/mL INJ 1 mL 0.2 MG IVP ×3 (08:30→23:00)
[2023-12-27] MEDS: gabapentin 300 mg Capsule PO ×2 (08:31→20:16)
[2023-12-27] MEDS: ondansetron 2 mg/ML SDV 2 mL 4 MG IVP (08:32)
[2023-12-27] MEDS: calcium gluconate 0.9% NaCL 1 GM/50 ML PREMIX IV (10:57)
--- NOTE | 2023-12-27 12:04 | W.PM.OPSUD ---
Surgery/Procedure H&P Update DATE OF PROCEDURE: December 27, 2023 DATE H&P PERFORMED: 12/24/23 H&P UPDATE INFORMATION: I have reviewed H&P completed within last 30 days, I have examined patient prior to procedure and No changes to prior documentation CHANGES TO PREVIOUS DOCUMENTATION: Spoke with hospitalist patient has already received a unit of blood's and stable for us to proceed with surgery today. She has been low in hemoglobin I feel important that we proceed with a plan for closure with deep drains to hopefully continue close the space and prevent reaccumulation of hematoma as well as to hopefully stop patient's blood loss. Patient understands and agrees with current plan. All questions answered. Will go back to the OR for removal of wound VAC with left hip repeat I&D and possible primary closure. Patient understands agrees with current plan. Questions answered. PREOP DIAGNOSIS: Left hip infected hematoma PRIMARY INDICATION FOR PROCEDURE: Left hip wound delayed closure with plan for primary closure after patient's received initial I&D and wound VAC placement with plan for repeat I&D and possible primary closure. PLANNED PROCEDURE: Operation Date: 12/25/23 16:45 Proposed Procedures p Incision & Drainage Left Hip(Left) - Patric Hussein DO Operation Date: 12/27/23 11:15 Proposed Procedures p Incision and Drainage left hip possible closure(Left) - Patric Hussein DO
--- NOTE | 2023-12-27 12:12 | ANES.PREANE2 ---
Pre-Anesthetic Assessment Height/Weight: Height 1.7 m Weight 82.554 kg Temp Pulse Resp BP Pulse Ox O2 Del Method O2 Flow Rate 98.6 F 86 20 H 169/85 93 Room Air 2 12/27/23 11:30 12/27/23 11:08 12/27/23 08:30 12/27/23 11:30 12/27/23 11:08 12/26/23 01:00 12/22/23 08:00 Preop Diagnosis: Left hip infected hematoma Operation Date: 12/25/23 16:45 Proposed Procedures p Incision & Drainage Left Hip(Left) - Patric Hussein DO Operation Date: 12/27/23 11:15 Proposed Procedures p Incision and Drainage left hip possible closure(Left) - Patric Hussein DO Last intake: Intake Last Liquid Date 12/24/23 Last Liquid Time 23:55 Last Solid Date 12/24/23 Last Solid Time 18:00 Social Alcohol and Tobacco Airway Submandibular: within normal limits Cervical ROM: within normal limits Mallampati: Class II Pulmonary Chronic Obstructive Pulmonary Disease CV/HEM Congestive Heart Failure Hepatic Cirrhosis GI Gastroesophageal Reflux Disease Metabolic Diabetes Mellitus and Hyperlipidemia Neuropsych Anxiety and Depression Anesthetic Plan ASA status: 4E Anesthesia: General Medications/Allergies Home Medications Medication Instructions Recorded Confirmed Last Taken Type Nubia Lift #1 ea 12/25/22 12/16/23 Unknown Rx Hospital bed #1 ea 03/22/23 12/16/23 Unknown Rx fenofibrate micronized 200 mg 200 mg PO BEDTIME 06/11/23 12/16/23 10/25/23 History capsule pantoprazole 40 mg tablet,delayed 40 mg PO BID 06/11/23 12/16/23 10/26/23 History release prochlorperazine maleate 10 mg 10 mg PO BID PRN Nausea And 06/11/23 12/16/23 Unknown History tablet (Compazine) Vomiting albuterol sulfate 90 mcg/actuation 2 inh inhalation Q4H PRN shortness 07/17/23 12/16/23 Unknown Rx aerosol inhaler of breath or wheezing #18 grams budesonide 0.5 mg/2 mL suspension 0.5 mg inhalation BID PRN 07/17/23 12/16/23 Unknown History for nebulization Shortness Of Breath Power chair repair #1 ea 07/30/23 12/16/23 Unknown Rx silver sulfadiazine 1 % topical 1 applic topical BID #20 grams 09/09/23 12/16/23 Unknown Rx cream (Silvadene) ketoconazole 2 % shampoo See Rx Instructions .Route 09/18/23 12/16/23 Unknown Rx .COMPLEX #120 mL furosemide 40 mg tablet 40 mg PO DAILY PRN Edema 10/26/23 12/16/23 Unknown History potassium chloride 20 mEq 20 meq PO DAILY PRN unknown 10/26/23 12/16/23 Unknown History tablet,extended release diazepam 5 mg tablet 5 mg PO QAM PRN anxiety #2 tabs 11/03/23 12/16/23 10/26/23 Rx see pharmacy comment lactulose 10 gram oral packet 10 g PO DAILY encephalopathy #15 ea 11/03/23 12/16/23 Unknown Rx apixaban 5 mg tablet (Eliquis) 5 mg PO BID@0900,2100 pulmonary 11/15/23 12/16/23 Unknown Rx embolism #60 tabs venlafaxine 150 mg 150 mg PO QAM #90 caps 12/12/23 12/16/23 Unknown Rx capsule,extended release 24 hr Methadone (Unknown Source) See Rx Instructions .Route .COMPLEX 12/16/23 12/16/23 Unknown History atenolol 100 mg tablet 100 mg PO BID 12/16/23 12/16/23 Unknown History gabapentin 300 mg capsule 300 mg PO TID 12/16/23 12/16/23 Unknown History metformin 500 mg tablet,extended 500 mg PO DAILY 12/16/23 12/16/23 Unknown History release 24 hr venlafaxine 75 mg capsule,extended 75 mg PO DAILY 12/16/23 12/16/23 Unknown History release 24 hr Allergies Allergy/AdvReac Type Severity Reaction Status Date / Time nalbuphine Allergy Unknown sick to Verified 10/07/23 09:01 stomach adhesive tape Allergy rash Verified 10/07/23 09:01 amitriptyline Allergy Unknown Verified 10/07/23 09:01 morphine Allergy ADR-Vomitin Verified 12/25/23 11:52 g nitrofurantoin Allergy ADR-Vomitin Verified 10/07/23 09:01 [From Macrobid] g Sulfa (Sulfonamide Allergy Itch all Verified 10/07/23 09:01 Antibiotics) over Current Medications Generic Name Dose Route Start Last Admin Trade Name Freq PRN Reason Stop Dose Admin Acetaminophen 650 mg 12/16/23 22:02 12/23/23 23:37 Acetaminophen 325 Mg Tablet PO 650 mg Q6H PRN Administration Mild/Mod Pain Or Temp >/= 101 Hydrocodone Bitart/Acetaminophen 1 tab 12/25/23 18:44 12/27/23 01:59 Hydrocodone-Acetaminophen 5-325 Mg Tablet PO 1 tab Q6H PRN Administration MODERATE PAIN Diazepam 5 mg 12/22/23 12:58 12/26/23 20:47 Diazepam 5 Mg Tablet PO 5 mg DAILY PRN Administration anxiety Gabapentin 300 mg 12/22/23 13:05 12/27/23 08:31 Gabapentin 300 Mg Capsule PO 300 mg TID RANJIT Administration Hydromorphone HCl 0.2 mg 12/25/23 19:04 12/27/23 08:30 Hydromorphone 1 Mg/Ml Inj 1 Ml IVP 0.2 mg Q6H PRN Administration pain Vancomycin/PEG/NADA/Lysine/Water 1,250 mg in 250 mls @ 250 mls/hr 12/17/23 23:00 12/27/23 05:59 Vancocin IV Infused Q24H RANJIT Infusion Piperacillin Sod/Tazobactam 50 mls @ 12.5 mls/hr 12/23/23 14:30 12/27/23 10:27 Sod 3.375 gm/ Sodium Chloride IV Infused Q8H RANJIT Infusion Iron Sucrose 200 mg/ Sodium 110 mls @ 220 mls/hr 12/24/23 15:00 12/27/23 09:05 Chloride IV 12/29/23 15:29 Infused Q24H RANJIT Infusion Albumin Human 25 g in 100 mls @ 60 mls/hr 12/25/23 17:00 12/27/23 10:27 Albumin IV Infused Q8H RANJIT Infusion Insulin Glargine 5 unit 12/20/23 12:00 12/27/23 08:32 Insulin Glargine 100 Units/1 Ml SUBCUT Not Given DAILY [facility] Insulin Human Lispro 0 unit 12/20/23 18:00 12/27/23 08:14 Insulin Lispro 100 Unit/1 Ml SUBCUT Not Given WM&BEDTIME [facility] Protocol Non-Formulary Medication 200 mg 12/22/23 21:00 12/26/23 21:52 Fenofibrate Micronized PO Not Given BEDTIME [facility] Ondansetron HCl 4 mg 12/16/23 22:02 12/27/23 08:32 Ondansetron 2 Mg/Ml Sdv 2 Ml IVP 4 mg Q8H PRN Administration vomiting, or N/V if npo Pantoprazole Sodium 40 mg 12/16/23 22:15 12/26/23 21:55 Pantoprazole 40 Mg Sdv IVP 40 mg Q24H RANJIT Administration Venlafaxine HCl 150 mg 12/22/23 13:05 12/27/23 05:35 Venlafaxine Er (24hr) 150 Mg Capsule PO 150 mg QAM RANJIT Administration PFSH Anesthesia Medical History AMS (altered mental status) COPD (chronic obstructive pulmonary disease) Metabolic encephalopathy Degenerative joint disease of left knee Closed fracture of left distal femur Hypertension Closed femur fracture Venous stasis ulcer Cellulitis Diabetic neuropathy associated with type 2 diabetes mellitus Diastolic CHF Anemia Substance abuse Depression with anxiety Chronic pain History of DVT of lower extremity post-operative Hyperlipidemia Hypertension History of cardioversion history of SVT vs for other arrhythmia Methamphetamine use Diabetes mellitus, type II [id number]-Hvpjc-Wxmof disease-like deformity of foot right Lung cancer Torticollis, acquired Has had good results with Botox in the past Lumbar radiculopathy Cervical post-laminectomy syndrome Surgical History Status post above-knee amputation of right lower extremity Hx of neck surgery x 2, posterior laminectomy and cervical fusion with hardware in place, limited ROM neck at baseline Hx of total knee replacement (~2010) Right History of arthroplasty of left knee (~1976) History of partial hysterectomy Hx of dilation and curettage Hx of tubal ligation Hx of appendectomy Family History Family/Other Hypertension Depression Anxiety Diabetes Father Aneurysm Mother Hypertension Brother Diabetes Sister Diabetes Social History Smoking and tobacco/nicotine status: current every day tobacco/nicotine user Alcohol intake: never Substance/Drug Use: current Substance/Drug use frequency: few times a month Additional social history: unknown if patient continues to smoke, documented to smoke previously Marital status: Female Reproductive History Spontaneous abortions: No Data Anesthesia 12/27/23 03:35 12/27/23 03:35 Short CBC 12/25/23 12/26/23 12/26/23 Range/Units 16:17 04:32 12:45 WBC 26.27 H 12.65 H (3.29-11.43) 10^3/uL Hgb 7.70 L 6.40 L* 7.50 L (11.27-16.99) g/dL Hct 27.3 L 21.4 L 23.8 L (36-47) % MCV 99.6 H 97.3 (85-98) fl Plt Count 527 H D 317 D (157-399) 10^3/cmm Neut % (Auto) 87.5 % Neut # (Auto) 11.07 H (1.8-7.7) 10^3/uL 12/27/23 Range/Units 03:35 WBC 9.91 (3.29-11.43) 10^3/uL Hgb 6.40 L* (11.27-16.99) g/dL Hct 20.2 L* (36-47) % MCV 90.2 D (85-98) fl Plt Count 332 (157-399) 10^3/cmm Neut % (Auto) 78.9 % Neut # (Auto) 7.82 H (1.8-7.7) 10^3/uL BMP 12/26/23 12/27/23 04:32 03:35 Sodium 142 144 Potassium 3.6 2.9 L Chloride 110 H 113 H Carbon Dioxide 21 L 21 L BUN 11 8 Creatinine 0.3 L 0.3 L Glucose 116 H 81 Calcium 7.0 L 6.6 L Liver Function 12/26/23 12/27/23 Range/Units 04:32 03:35 Total Bilirubin 2.2 H 0.8 (0.15-1.2) mg/dL AST 7 6 (0-32) U/L ALT < 5 < 5 (0-33) U/L Alkaline Phosphatase 74 73 (35-105) U/L Albumin 2.6 L 2.8 L (3.5-5.2) g/dL Blood Bank 12/24/23 11:07 Blood Type B Negative Rho(D) Type Negative Antibody Screen Negative Microbiology 12/25/23 15:00 Gram Stain - Final Hip - #1 Wound Culture - Preliminary Cardiac Studies: Echocardiogram 07/27/23 Echocardiogram Limited Views 12/27/20 Echocardiogram Ultrasound 01/01/21
[2023-12-27] MEDS: vancomycin 1,000 MG SDV 2000 MG IRRIGATION (13:38)
--- NOTE | 2023-12-27 14:10 | P.PN_ITS ---
Subjective 2 Subjective: No acute events overnight. Patient has remained hemodynamically stable and afebrile. Around 500 cc of fluid and wound VAC overnight. Patient is awake and alert and able to have complete conversation. Denies any nausea, vomiting, headache. Plan to go to the OR today. Vitals/I&O/Wt Last Vital Signs Temp 100.9 F H 12/27/23 12:00 Pulse 93 12/27/23 12:00 Resp 18 12/27/23 12:00 BP 159/83 12/27/23 12:00 Pulse Ox 95 12/27/23 12:00 O2 Del Method Room Air 12/26/23 01:00 O2 Flow Rate 2 12/22/23 08:00 12/26/23 12/27/23 12/27/23 22:59 06:59 14:59 Intake Total 1500 / 2150 400 / 2550 1660 / 1660 Output Total 1300 / 1300 1625 / 2925 Balance 200 / 850 -1225 / -375 1660 / 1660 Weight last 48 hrs Weight 82.554 kg Weight 81 kg Physical Exam 2 Const: COMMON NORMALS: no acute distress and alert O RIENTATION/CONSCIOUSNESS: Yes awake, Yes oriented to person, Yes oriented to place and Yes oriented to time HENMT: COMMON NORMALS: oropharynx normal Eye: COMMON NORMALS: Equal, round and reactive pupils present PUPIL: Yes Equal, round and reactive pupils present Neck/C-Spine: COMMON NORMALS: no JVD Lymph: LYMPHATIC: no lymphadenopathy noted Resp: COMMON NORMALS: normal respiratory effort, No retractions, No use of accessory muscles and clear to auscultation bilaterally AUSCULTATION: clear to auscultation bilaterally Cardio: COMMON NORMALS: no JVD, regular rate, regular rhythm, S1 normal heart sound present, S2 normal heart sound present and No murmurs present (Cardio) RATE: regular rate RHYTHM: regular rhythm HEART SOUNDS: S1 normal heart sound present and S2 normal heart sound present GI: COMMON NORMALS: Normal to inspection, nondistended, normoactive bowel sounds present, Soft to palpation and non-tender PALPATION: Yes Soft to palpation : COMMON NORMALS: Yes no CVA tenderness BLADDER/KIDNEY EXAM: Yes no CVA tenderness Back/Pelvis: COMMON NORMALS: no CVA tenderness Extremity: NARRATIVE EXTREMITY EXAM: Right above-knee amputation Left lower extremity, multiple superficial diabetic ulcers throughout the left lal, left lower extremity, left heel, appear infected, erythematous, actively draining, foul-smelling OTHER: R AKA Left hip wound VAC present Neuro: SENSORIUM/ORIENTATION: Yes alert, Yes oriented to person, Yes oriented to place and Yes oriented to time Skin: NARRATIVE SKIN EXAM: Improvement in diffuse erythema, show ulcerations, mild weeping with blister ration of left lower extremity from dorsal foot to about three quarters of the way up the lower leg. Mildly less intense erythema. Urinary Catheter Management: Garber: Cath Placed During This Visit: yes, but has since been removed by the nurse Reason for Continuing Indwelling Catheter: Accurate Measurement of Urinary Output in Critically Ill Patients Urinary Catheter Date of Insertion: 12/24/23 Urinary Catheter Time of Insertion: 10:00 Date Urinary Catheter Removed: 12/20/23 Time Urinary Catheter Discontinued: 19:31 Data 12/27/23 03:35 12/27/23 03:35 Micro: Microbiology 12/25/23 15:00 Gram Stain - Final Hip - #1 Wound Culture - Preliminary A&P Assessment and plan (1) Infected fluid collection: (2) Postoperative hypotension: (3) Postoperative anemia: (4) Sepsis: Qualifiers: Sepsis type: Streptococcus, other Sepsis acute organ dysfunction status: with acute organ dysfunction Severe sepsis acute organ dysfunction type: encephalopathy Severe sepsis shock status: without septic shock Qualified Code(s): A40.8 - Other streptococcal sepsis; R65.20 - Severe sepsis without septic shock; G93.41 - Metabolic encephalopathy (5) Left leg cellulitis: (6) Acute encephalopathy: (7) Hypoalbuminemia: (8) Urinary tract infection: Qualifiers: Hematuria presence: with hematuria Urinary tract infection type: acute cystitis Qualified Code(s): N30.01 - Acute cystitis with hematuria (9) Essential hypertension: (10) Pulmonary embolism: (11) Diabetes mellitus, type II: Plan Large hematoma collection around the left hip: Post I&D day 2. Plan for repeat washout today. Patient had acute blood loss of 200 cc total 2 L of fluid was evacuated from the wound. Wound VAC in place. Draining around 500 cc per shift. Appreciate orthopedic recommendations. Follow-up cultures. For now Gram stain shows GPC. Await final culture results. Leukocytosis have resolved for now. Patient did develop postoperative hypotension due to postoperative blood loss. Overall has received 2 units of PRBC. Hemoglobin again low today. Will transfuse 2 more units of PRBC as patient is going to the OR. Target hemoglobin more than 8. Leukocytosis have resolved. Continue with broad-spectrum antibiotics for now. As per past culture history she has a history of group G Streptococcus, Pseudomonas and Klebsiella pneumonia. Plan to continue with IV vancomycin and Zosyn. History of MRSA in the past. Left leg cellulitis: Antibiotics as above. Orthopedic team has recommended AKA. Patient was agreeable at first but currently is declining as per orthopedic team. History of pulmonary embolism: Eliquis is on hold given hematoma on admission. Will confirm with orthopedics team before restarting anticoagulation. Most likely will do heparin drip and then transition over to Eliquis. Anemia: Postoperative anemia. Target hemoglobin around 8. Post to the blood transfusion. Continue with IV iron supplementation for overall 1 g of dose. Last dose on 12/29. Staphylococcus epidermidis bacteremia: Blood cultures from admission 1 out of 4 bottles positive. Given hematoma in place cannot rule out being actual bacteremia. Repeat blood cultures from 12/23 so far negative. PICC line was placed on admission. For now we will continue with PICC line. If repeat blood cultures are positive will remove PICC line accordingly. Acute encephalopathy: Present on admission. Resolved. In setting of sepsis and polypharmacy. Continue diazepam as needed, gabapentin at 300 mg 3 times daily. Patient not on methadone anymore. Continue with home dose of Effexor 150 mg daily. Replete 80 mg of oral potassium. Full code NPO. Restart cardiac diet postoperatively Protonix for PUD prophylaxis Cannot do SCD as patient has right leg AKA, left leg cellulitis. Cannot do medical prophylaxis because of acute anemia requiring transfusion. Discharge plan: Patient will need IV antibiotics on discharge because of bacteremia. Patient is still pending amputation. 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 Will continue to follow. Case management alerted. Attestations 2 Medical Necessity Statement*: Requires further hospitalization as patient needs further wound washout for infected fluid collection with wound VAC in place, postoperative anemia requiring blood transfusions, Staphylococcus bacteremia while safe discharge planning is sought. Diagnoses Infected fluid collection Postoperative hypotension I95.81 Postoperative anemia D64.9 Sepsis due to other Streptococcus species with encephalopathy without septic shock A40.8; R65.20; G93.41 Sepsis type: Streptococcus, other Sepsis acute organ dysfunction status: with acute organ dysfunction Severe sepsis acute organ dysfunction type: encephalopathy Severe sepsis shock status: without septic shock Left leg cellulitis L03.116 Acute encephalopathy G93.40 Hypoalbuminemia E88.09 Urinary tract infection N30.01 Hematuria presence: with hematuria Urinary tract infection type: acute cystitis Essential hypertension I10 Pulmonary embolism I26.99 Type 2 diabetes mellitus with other diabetic arthropathy, 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
--- NOTE | 2023-12-27 15:05 | PC.SLP ---
[employer] will follow-up with the pt, next week when the pt is off NPO status.
--- NOTE | 2023-12-27 15:12 | ANE.PACU2 ---
Inpatient post-anesthesia follow up: Vital signs: Temperature 100.9 F Pulse Rate 93 Respiratory Rate 18 Blood Pressure 159/83 Pulse Oximetry 95 Oxygen Delivery Me thod Room Air Oxygen Flow Rate 2 Fraction of Inspir ed Oxygen Hydration adequate: Yes Nausea and vomiting: No Pain level: 3 Mental status: Baseline
--- NOTE | 2023-12-27 15:15 | P.BOP_ITS ---
Date of Procedure: 12/27/2023 Surgeon: Patric Hussein DO [employer](s): Josh Hussein PA-C Procedure(s) performed: Left hip wound VAC removal, irrigation debridement (55 cm x 35 cm x 12 cm) 2 deep drains placed Left hip primary closure Incisional VAC wound placement Findings of the procedure(s): Patient wound bed was found to be healthy with bleeding red tissue all residual areas of skin and tissue necrosis were all excised at this point in time there is no reaccumulation of hematoma or infected abscess and as a result the fascia was well-maintained and as result decision was made for primary closure deep retention stitches were then subsequently made 2 deep drains were then placed 1 to Hemovac and 1 to the incisional VAC. Deep layered closure was then subsequently performed and a primary closure was successful. Incisional VAC was placed with Incorporated drain. Patient tolerated procedure well and was taken to ICU in stable condition per anesthesia. Plan will be to maintain incisional VAC dressing for 2 to 3 days until output slows down appropriately and then subsequently move incisional VAC drain and possibly leave in the Hemovac drain longer if necessary. No plan for return to the OR at this time. Estimated blood loss: 100 cc Specimen(s) removed: None Post-operative diagnosis: Left hip infected hematoma delayed wound closure with wound VAC removal and primary closure
--- NOTE | 2023-12-27 15:15 | PC.NURSE ---
pt came back from surgery pt was alet but crying due to left wound pain post surgery/drainage and closure. pt has a wound vac on left lateral hip draining with small blood clots, wound incision sutured to wound drainage reservoir below the lateral left hip noted. pt is on right lateral side, pain med given as ordered.
--- NOTE | 2023-12-27 16:01 | PC.NURSE ---
called Dr Hussein in regards to transfer order when it was process from surgery back to icu, all her medications has been DC in the MAR. she is due to have gabapentin and Zosyn at 3 pm-. Left a voicemail message to the surgeon's phone #. Called Dr Gomez and notified him of the event in regards to processing her transfer orders and all the meds in [facility] are DC from surgery to icu. He is okay to put one time dose of these meds zosyn and gabapentin and notify surgeon.
--- NOTE | 2023-12-27 16:27 | PM.OP ---
Operative Report Date of procedure: December 27, 2023 Pre-op diagnosis: Left hip infected hematoma, with delayed primary closure Post-op diagnosis: Same Post-op findings: Patient had good granulation bed from the wound VAC and was prepped for primary closure with deep drain and Procedure done: Left hip wound VAC removal, irrigation debridement (55 cm x 35 cm x 12 cm) 2 deep drains placed Left hip primary closure Incisional VAC wound placement Implants: 2 deep drains placed as well as incision VAC with large black foam sponge Surgeon: Patric Hussein DO Purchasing Buyer: Josh Hussein PA-C: CARSON was necessary for assistance in this case with leg positioning retraction and protection of neurovascular structures as well as assistance debridement, and irrigation wound closure and dressing application. Anesthesia: General Estimated blood loss: 100 mL None IV fluids: 800 mL Urine output: See anesthesia record Complications: None?patient taken to ICU in stable condition Findings: See operative report narrative Condition: stable Disposition: ICU Brief History: Patient at this point in time has had an infected left hip hematoma. Given the extent of the infection and larger wound and space I subsequently planned for a delayed primary closure and placed a wound VAC 2 days ago. At this point in time she has continually had steady output and at this point in time would recommend primary closure as she has required multiple units of PRBC. As result we talked about this in detail with the patient she understands and agrees to proceed with current plan. All questions been answered at this time we will take her back for repeat left hip irrigation and debridement and possible primary closure. Patient understands agrees with current plan. All questions answered. She does understand the risk benefits complication alternatives of surgery elects to proceed all questions answered. Procedure: Patient seen evaluated in ICU. Consent was reviewed and signed with patient. Patient was then seen evaluate by anesthesia once cleared for surgery was taken directly from ICU into the operative suite. Transported from the hospital bed to the OR table. Patient then subsequently underwent anesthesia per the anesthesia department. Patient was then placed once appropriately anesthetized into a lateral decubitus position with the left hip up in a beanbag positioner. Patient had all bony prominences well-padded patient appropriate secured to the bed. At this point in time once appropriate secured to the bed and ready for prep the wound VAC was then subsequently removed and then the left lower extremity was then prepped and draped in standard orthopedic fashion. Final timeout was performed patient had been receiving appropriate perioperative antibiotics on the floor. This point in time would begin the procedure with evaluating the wound bed. Where the VAC sponge was was both on the anterior and posterior aspects this had good healthy bleeding granulation tissue there is very minimal residual aspects of any types of necrosis. At this point in time I felt this would be competent for primary closure with deep drain placement. At this point in time I performed a standard irrigation sequence. I initially performed irrigation with Pulsavac for 3 L of normal saline. At this point in time I then switched to an appropriate debridement of the wound bed which consisted of 55 cm x 35 cm x 12 cm. This was debrided of all nonviable tissue of skin fat and fascia with sharp scalpel excision with rongeur as well. Once this was all appropriately debrided to healthy bleeding tissue I maintained exact hemostasis prior to its closure. Once I was satisfied with this final debridement and ready to close I then subsequently soaked the wound bed and diluted Betadine for 5 minutes this was allowed to set and be effective for its 5-minute duration and then subsequently utilized 6 L of Pulsavac irrigation normal saline to irrigate out the wound bed to its entirety. Once this was done entire wound bed was dry and hemostasis was maintained and proceeded with closure I placed an anterior drain with a 15 Icelandic into a Hemovac distally away from the incision. Then subsequently placed another 15 Icelandic drain out the incision proximally this drain was kept in more the gluteal region. I then subsequently used 0 PDS suture to tack down the skin in standard fashion to the fascia. I then placed Deanna to help with hemostasis as well as 2 g of vancomycin powder into the wound bed. I then subsequently closed this in layered fashion of 0 PDS 2-0 PDS as well as 2-0 PDS interrupted for the skin layer in horizontal mattress fashion. I then subsequently cut and placed a incisional VAC dressing with a black foam sponge directly over the incision with Xeroform appropriately windowed the incision and then subsequently incorporated my proximal deep drain into the incisional VAC for appropriate seal and closing down of the space. I then placed Ioban over the entire VAC in this subsequently had excellent seal and I sutured the drain to the Hemovac to appropriately secure this. Then appropriately dressings were then applied around the dressing with 4 x 4's as well as Harris wrap. Patient was then awake from anesthesia and taken to ICU in stable condition Disposition: Patient taken to ICU in stable condition she tolerated this with no apparent complications she had been receiving appropriate PRBC prior to the procedure. Per anesthesia her blood pressure did maintain the hospitalist as well as the nursing staff and ICU were appropriately updated on patient's intraoperative findings as well as plan moving forward. Plan to keep the incisional VAC and deep drain on and in place until output slows down to help prevent from any reaccumulation into this large space the patient had. Family was contacted as well understand agree with current plan. All questions answered. At this point time no further orthopedic surgical is planned. Drains will be removed and appropriate timing depending on patient's clinical resolution of drainage.
[2023-12-27 18:05] LABS: Glucose Point of Care 67 mg/dL (70-110)
[2023-12-27] MEDS: sodium chloride 0.9% (100 ml) 100 ML 30 ML (18:10)
[2023-12-27] MEDS: iron sucrose 200 MG in sodium chloride 0.9% (100 ml) 100 ML 220 MG IV (19:31)
[2023-12-27] MEDS: diazePAM 5 mg Tablet PO (20:16)
[2023-12-27 20:54] LABS: Glucose Point of Care 138 mg/dL (70-110)
[2023-12-27] MEDS: vancomycin 1,250 MG/250 ML PIGGYBACK 250 MG IV (22:48)
[2023-12-27] MEDS: pantoprazole 40 mg SDV IVP (22:48)
[2023-12-28] VITALS (25 sets, daily range): BP systolic 134–191; BP diastolic 68–100; PULSE 82–111; RESP 13–25; TEMP 36.3–37.3; O2SAT 90–98
[2023-12-28] MEDS: piperacillin-tazobactam 3.375 GM in sodium chloride 0.9% (plus) 50 ML IV ×3 (00:43→17:21)
[2023-12-28] MEDS: albumin 25 G/100 ML BAG 60 G IV ×3 (00:43→17:20)
[2023-12-28] MEDS: HYDROcodone-acetaminophen 5-325 mg Tablet 1 TAB PO ×3 (01:39→17:55)
--- NOTE | 2023-12-28 02:30 | PC.NURSE ---
4 rings placed in Home Meds bin of Pyxis. Rings removed during procedure. Tamper proof tape applied.
[2023-12-28 04:23] LABS: Basophils % 0.4 %; Eosinophils # 0.2 10^3/uL (0.0-0.8); Eosinophils % 2.4 %; Hematocrit 27.6 % (36-47); Lymphocytes # 0.8 10^3/uL (0.8-4.8); Lymphocytes % 7.6 %; Mean Corpuscular HGB Conc 31.2 g/dL (30-55); Mean Corpuscular Hemoglobin 29.3 pg (27-33); Mean Corpuscular Volume 93.9 fl (85-98); Mean Platelet Volume 9.4 fL (7.4-10.4); Monocytes # 0.9 10^3/uL (0.2-0.9); Monocytes % 8.3 %; Neutrophils # 8.23 10^3/uL (1.8-7.7); Neutrophils % 80.8 %; Nucleated Red Blood Cells % 0 %; Platelet Count 313 10^3/cmm (157-399); Red Blood Count 2.94 10^6/uL (3.85-5.65); Red Cell Distribution Width 20.5 % (12.1-15.1); White Blood Count 10.18 10^3/uL (3.29-11.43)
[2023-12-28 04:56] LABS: Alanine Aminotransferase < 5 U/L (0-33); Albumin Level 3.3 g/dL (3.5-5.2); Alkaline Phosphatase 73 U/L (35-105); Anion Gap 12.9 (5-19); Aspartate Amino Transferase 6 U/L (0-32); Blood Urea Nitrogen 11 mg/dL (8-23); Calcium 7.5 mg/dL (8.5-10.5); Carbon Dioxide 23 mmol/L (22-29); Chloride 110 mmol/L (98-107); Globulin 2.1 g/dL (1.3-4.6); Glomerular Filtration Rate 161.2 mL/min (90-130); Glucose 116 mg/dL (65-115); Osmolality Calculated 294 mOsm/kg (285-295); Potassium 3.9 mmol/L (3.5-5.1); Sodium 142 mmol/L (136-145); Total Bilirubin 0.7 mg/dL (0.15-1.2); Total Protein 5.4 g/dL (6.6-8.7)
[2023-12-28] MEDS: venlafaxine ER (24HR) 150 mg Capsule PO (05:22)
[2023-12-28 06:45] LABS: Glucose Point of Care 94 mg/dL (70-110)
[2023-12-28] MEDS: gabapentin 300 mg Capsule PO ×3 (08:38→20:24)
[2023-12-28] MEDS: HYDROmorphone 1 mg/mL INJ 1 mL 0.2 MG IVP ×3 (08:39→20:24)
[2023-12-28] MEDS: insulin glargine 100 units/1 mL 5 UNIT SUBCUT (08:39)
--- NOTE | 2023-12-28 08:47 | P.PN_ITS ---
<Statement entered by Patric Hussein DO - 12/28/23 09:54> Reviewed and agree with PAs assessment and plan. Patient was seen evaluated with PA. Patient understands and agrees with current plan. Questions answered. Working on possible LTAC placement. Will monitor drain output and discontinue accordingly [place], DO Subjective 2 Subjective: Pt is 1 day post op Left hip I & D. No acute events overnight. Pt is doing well and pain is controlled. Vitals/I&O/Wt Last Vital Signs Temp 99.1 F 12/28/23 06:00 Pulse 106 H 12/28/23 08:00 Resp 19 H 12/28/23 08:00 BP 175/100 12/28/23 08:00 Pulse Ox 91 12/28/23 08:00 O2 Del Method Room Air 12/26/23 01:00 O2 Flow Rate 2 12/22/23 08:00 12/27/23 12/28/23 12/28/23 22:59 06:59 14:59 Intake Total 810 / 2470 960 / 960 Output Total 1000 / 1175 1835 / 3010 Balance -190 / 1295 -1835 / -540 960 / 960 Weight last 48 hrs Weight 185 lb Weight 182 lb Physical Exam 2 Const: COMMON NORMALS: no acute distress and alert Resp: COMMON NORMALS: normal respiratory effort and No retractions Cardio: COMMON NORMALS: Peripheral pulses 2+ throughout PERIPHERAL PULSES: Peripheral pulses 2+ throughout Extremity: NARRATIVE EXTREMITY EXAM: Left hip-wound vac dressing is on and inplace. Wound vac is working and no seal issues. bloody tinge drainage from wound vac-250 ml. Hemovacc with a deep drain intact and has 50 ml of bloody tinge drainage. No surrounding erythema or warmth around wound site. Neuro: SENSORIUM/ORIENTATION: Yes alert Skin: GENERAL SKIN EXAM: dry skin Data 12/28/23 03:35 12/28/23 03:35 Micro: Microbiology 12/25/23 15:00 Anaerobic Culture - Preliminary Hip - #2 12/20/23 Unknown Anaerobic Culture - Preliminary Hip - Aspirate 12/25/23 15:00 Gram Stain - Final Hip - #1 Wound Culture - Preliminary A&P Assessment and plan (1) Infected hematoma: (2) Hematoma and contusion: (3) Ankle wound: Qualifiers: Encounter type: initial encounter Laterality: left Qualified Code(s): S91.002A - Unspecified open wound, left ankle, initial encounter (4) Right above-knee amputee: Plan Plan: Medicine on board Chart reviewed Labs reviewed- wbc 10.18, hgb 8.6 Imaging reviewed Pain control PT/OT antibiotics per medicine Keep vacuum dressing on and dry and continue monitoring output Ortho will continue to follow Attestations 2 Medical Necessity Statement*: Ongoing care for Left hip infected hematoma Coding Level of Care Code Acute Code for Chg Fwd Diagnoses Infected hematoma T14.8XXA; L08.9 Hematoma and contusion T14.8XXA Wound of left ankle, initial encounter S91.002A Encounter type: initial encounter Laterality: left Right above-knee amputee Z89.611
[2023-12-28] MEDS: metoprolol tartrate 25 mg Tablet PO ×2 (11:03→20:24)
--- NOTE | 2023-12-28 11:10 | PC.NURSE ---
reposition at this time head of bed elevated am care done usman wrap to left leg and up to hip pain medication given
[2023-12-28 11:16] LABS: Glucose Point of Care 158 mg/dL (70-110)
--- NOTE | 2023-12-28 11:20 | P.PN_ITS ---
Subjective 2 Subjective: Documents overnight. Underwent rewashout of the joint on 12/27. Wound VAC present. Drain from wound VAC around 125 cc overnight. Hemoglobin has remained stable. Today morning seen laying comfortably in bed, fairly weak. Lower limb dressings changed during examination. Vitals/I&O/Wt Last Vital Signs Temp 97.4 F L 12/28/23 10:00 Pulse 103 H 12/28/23 10:00 Resp 15 12/28/23 10:00 BP 149/95 12/28/23 10:00 Pulse Ox 96 12/28/23 10:00 O2 Del Method Room Air 12/26/23 01:00 O2 Flow Rate 2 12/22/23 08:00 12/27/23 12/28/23 12/28/23 22:59 06:59 14:59 Intake Total 810 / 2470 1060 / 1060 Output Total 1000 / 1175 1835 / 3010 Balance -190 / 1295 -1835 / -540 1060 / 1060 Weight last 48 hrs Weight 83.915 kg Weight 82.554 kg Physical Exam 2 Const: COMMON NORMALS: no acute distress and alert O RIENTATION/CONSCIOUSNESS: Yes awake, Yes oriented to person, Yes oriented to place and Yes oriented to time HENMT: COMMON NORMALS: oropharynx normal Eye: COMMON NORMALS: Equal, round and reactive pupils present PUPIL: Yes Equal, round and reactive pupils present Neck/C-Spine: COMMON NORMALS: no JVD Lymph: LYMPHATIC: no lymphadenopathy noted Resp: COMMON NORMALS: normal respiratory effort, No retractions, No use of accessory muscles and clear to auscultation bilaterally AUSCULTATION: clear to auscultation bilaterally Cardio: COMMON NORMALS: no JVD, regular rate, regular rhythm, S1 normal heart sound present, S2 normal heart sound present and No murmurs present (Cardio) RATE: regular rate RHYTHM: regular rhythm HEART SOUNDS: S1 normal heart sound present and S2 normal heart sound present GI: COMMON NORMALS: Normal to inspection, nondistended, normoactive bowel sounds present, Soft to palpation and non-tender PALPATION: Yes Soft to palpation : COMMON NORMALS: Yes no CVA tenderness BLADDER/KIDNEY EXAM: Yes no CVA tenderness Back/Pelvis: COMMON NORMALS: no CVA tenderness Extremity: NARRATIVE EXTREMITY EXAM: Right above-knee amputation Left lower extremity, multiple superficial diabetic ulcers throughout the left lal, left lower extremity, left heel, appear infected, erythematous, actively draining, foul-smelling OTHER: R AKA Left hip wound VAC present Neuro: SENSORIUM/ORIENTATION: Yes alert, Yes oriented to person, Yes oriented to place and Yes oriented to time Skin: NARRATIVE SKIN EXAM: Improvement in diffuse erythema, show ulcerations, mild weeping with blister ration of left lower extremity from dorsal foot to about three quarters of the way up the lower leg. Mildly less intense erythema. Urinary Catheter Management: Garber: Cath Placed During This Visit: yes, but has since been removed by the nurse Reason for Continuing Indwelling Catheter: Accurate Measurement of Urinary Output in Critically Ill Patients Urinary Catheter Date of Insertion: 12/24/23 Urinary Catheter Time of Insertion: 10:00 Date Urinary Catheter Removed: 12/20/23 Time Urinary Catheter Discontinued: 19:31 Data 12/28/23 03:35 12/28/23 03:35 Micro: Microbiology 12/25/23 15:00 Gram Stain - Final Hip - #1 Wound Culture - Final 12/20/23 Unknown Anaerobic Culture - Preliminary Hip - Aspirate 12/25/23 15:00 Anaerobic Culture - Preliminary Hip - #2 A&P Assessment and plan (1) Infected fluid collection: (2) Postoperative hypotension: (3) Postoperative anemia: (4) Sepsis: Qualifiers: Sepsis acute organ dysfunction status: with acute organ dysfunction S epsis type: Streptococcus, other Severe sepsis acute organ dysfunction type: e ncephalopathy Severe sepsis shock status: without septic shock Qualified Code(s): A40.8 - Other streptococcal sepsis; R65.20 - Severe sepsis without septic shock; G93.41 - Metabolic encephalopathy (5) Left leg cellulitis: (6) Acute encephalopathy: (7) Hypoalbuminemia: (8) Urinary tract infection: Qualifiers: Hematuria presence: with hematuria Urinary tract infection type: acute cystitis Qualified Code(s): N30.01 - Acute cystitis with hematuria (9) Essential hypertension: (10) Pulmonary embolism: (11) Diabetes mellitus, type II: Plan Large hematoma collection around the left hip: First I&D on 12/25. Repeat washout on 12/27. Wound VAC in place. Last drain and wound VAC overnight. Wound VAC management as per orthopedic team. Follow-up cultures. For now Gram stain shows GPC. Await final culture results. Leukocytosis have resolved for now. Postoperative hypotension: Most likely in setting of excessive fluid loss from the wound. Overall patient received 4 unit of blood transfusion. Hemoglobin stable for now. Target hemoglobin more than 8. Leukocytosis have resolved. Continue with broad-spectrum antibiotics for now. Patient has been on IV vancomycin and Zosyn since 12/16. Repeat blood cultures from 12/23 negative. Will plan to discontinue Zosyn tomorrow. Continue vancomycin to finish a 14-day course from 12/23. As per past culture history she has a history of group G Streptococcus, Pseudomonas and Klebsiella pneumonia. Plan to continue with IV vancomycin and Zosyn. History of MRSA in the past. Left leg cellulitis: Antibiotics as above. Orthopedic team has recommended AKA. Patient was agreeable at first but currently is declining as per orthopedic team. Wound care with wet-to-dry on the leg and Hydrofera Blue on the heel. History of pulmonary embolism: Eliquis is on hold given hematoma on admission. Holding off on anticoagulation for now given blood loss anemia. Will continue to monitor for now. Anemia: Postoperative anemia. Target hemoglobin around 8. Post to the blood transfusion. Continue with IV iron supplementation for overall 1 g of dose. Last dose on 12/29. Staphylococcus epidermidis bacteremia: Blood cultures from admission 1 out of 4 bottles positive. Given hematoma in place cannot rule out being actual bacteremia. Repeat blood cultures from 12/23 negative. PICC line was placed on admission. For now we will continue with PICC line. If repeat blood cultures are positive will remove PICC line accordingly. Acute encephalopathy: Present on admission. Resolved. In setting of sepsis and polypharmacy. Continue diazepam as needed, gabapentin at 300 mg 3 times daily. Patient not on methadone anymore. Continue with home dose of Effexor 150 mg daily. Full code Cardiac diet Protonix for PUD prophylaxis Cannot do SCD as patient has right leg AKA, left leg cellulitis. Cannot do medical prophylaxis because of acute anemia requiring transfusion. Discharge plan: Patient will need IV antibiotics on discharge because of bacteremia. Patient is still pending amputation. 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 Will continue to follow. Case management alerted. Attestations 2 Medical Necessity Statement*: Requires further hospitalization for management of infected large hematoma of left hip post washout, left leg cellulitis, Staphylococcus epidermidis bacteremia while safe discharge planning is sought. Diagnoses Infected fluid collection Postoperative hypotension I95.81 Postoperative anemia D64.9 Sepsis due to other Streptococcus species with encephalopathy without septic shock A40.8; R65.20; G93.41 Sepsis acute organ dysfunction status: with acute organ dysfunction Sepsis type: Streptococcus, other Severe sepsis acute organ dysfunction type: encephalopathy Severe sepsis shock status: without septic shock Left leg cellulitis L03.116 Acute encephalopathy G93.40 Hypoalbuminemia E88.09 Urinary tract infection N30.01 Hematuria presence: with hematuria Urinary tract infection type: acute cystitis Essential hypertension I10 Pulmonary embolism I26.99 Type 2 diabetes mellitus with other diabetic arthropathy, 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
[2023-12-28] MEDS: insulin lispro 100 unit/1 mL SUBCUT (12:16)
--- NOTE | 2023-12-28 13:45 | PC.NURSE ---
visitor in room noon meal served .. chocked on something visitor out yelling help her she choking pt request to be suctioned out ... get it out both visitor and pt calmed.. wanting doctor called to get that out .. took food explained need to be npo for awhile with coughing
[2023-12-28] MEDS: diazePAM 5 mg Tablet PO (14:30)
--- NOTE | 2023-12-28 15:05 | PC.NURSE ---
pain medication and valium given to pt , now calmer at this time .
--- NOTE | 2023-12-28 16:46 | PC.NURSE ---
wound vac canister changed
[2023-12-28 17:13] LABS: Glucose Point of Care 82 mg/dL (70-110)
[2023-12-28] MEDS: iron sucrose 200 MG in sodium chloride 0.9% (100 ml) 100 ML 220 MG IV (17:56)
[2023-12-28 20:22] LABS: Glucose Point of Care 119 mg/dL (70-110)
[2023-12-28] MEDS: pantoprazole 40 mg SDV IVP (22:11)
[2023-12-28] MEDS: vancomycin 1,250 MG/250 ML PIGGYBACK 166 MG IV (22:12)
[2023-12-29] VITALS (27 sets, daily range): BP systolic 140–180; BP diastolic 71–122; PULSE 85–123; RESP 11–31; TEMP 36.2–36.6; O2SAT 92–100
[2023-12-29] MEDS: HYDROcodone-acetaminophen 5-325 mg Tablet 1 TAB PO ×4 (00:26→20:25)
[2023-12-29] MEDS: albumin 25 G/100 ML BAG 60 G IV ×2 (00:26→09:19)
[2023-12-29] MEDS: piperacillin-tazobactam 3.375 GM in sodium chloride 0.9% (plus) 50 ML IV (03:58)
[2023-12-29 04:25] LABS: Basophils % 0.4 %; Eosinophils # 0.3 10^3/uL (0.0-0.8); Eosinophils % 3.2 %; Hematocrit 27.6 % (36-47); Lymphocytes # 0.9 10^3/uL (0.8-4.8); Lymphocytes % 9.2 %; Mean Corpuscular HGB Conc 30.8 g/dL (30-55); Mean Corpuscular Hemoglobin 28.6 pg (27-33); Mean Corpuscular Volume 92.9 fl (85-98); Mean Platelet Volume 9.7 fL (7.4-10.4); Monocytes # 0.9 10^3/uL (0.2-0.9); Monocytes % 9.3 %; Neutrophils # 7.21 10^3/uL (1.8-7.7); Neutrophils % 77.6 %; Nucleated Red Blood Cells % 0 %; Platelet Count 312 10^3/cmm (157-399); Red Blood Count 2.97 10^6/uL (3.85-5.65); Red Cell Distribution Width 20.3 % (12.1-15.1); White Blood Count 9.31 10^3/uL (3.29-11.43)
[2023-12-29 04:41] LABS: Alanine Aminotransferase < 5 U/L (0-33); Albumin Level 3.7 g/dL (3.5-5.2); Alkaline Phosphatase 75 U/L (35-105); Anion Gap 12.4 (5-19); Aspartate Amino Transferase 5 U/L (0-32); Blood Urea Nitrogen 6 mg/dL (8-23); Calcium 7.9 mg/dL (8.5-10.5); Carbon Dioxide 26 mmol/L (22-29); Chloride 109 mmol/L (98-107); Globulin 2.1 g/dL (1.3-4.6); Glomerular Filtration Rate 224.7 mL/min (90-130); Glucose 70 mg/dL (65-115); Osmolality Calculated 294 mOsm/kg (285-295); Potassium 3.4 mmol/L (3.5-5.1); Sodium 144 mmol/L (136-145); Total Bilirubin 0.7 mg/dL (0.15-1.2); Total Protein 5.8 g/dL (6.6-8.7)
[2023-12-29] MEDS: HYDROmorphone 1 mg/mL INJ 1 mL 0.2 MG IVP ×3 (05:24→18:29)
[2023-12-29] MEDS: venlafaxine ER (24HR) 150 mg Capsule PO (05:24)
[2023-12-29 07:24] LABS: Glucose Point of Care 83 mg/dL (70-110)
--- NOTE | 2023-12-29 08:45 | P.PN_ITS ---
Subjective 2 Subjective: Patient seen and examined this morning she is doing well eating breakfast. At this point in time drain output slowing down 250 cc out put from incisional VAC deep drain as well as Hemovac is had 100 cc output. A.m. labs reviewed hemoglobin appears to maintain be stable. Will continue to monitor drains and discontinue as output slows down. Vitals/I&O/Wt Last Vital Signs Temp 97.4 F L 12/29/23 08:00 Pulse 100 12/29/23 14:00 Resp 22 H 12/29/23 14:00 BP 156/91 12/29/23 14:00 Pulse Ox 98 12/29/23 14:00 O2 Del Method Nasal Cannula 12/29/23 06:00 O2 Flow Rate 2 12/29/23 06:00 12/29/23 12/29/23 12/29/23 06:59 14:59 22:59 Intake Total 470 / 2780 800 / 800 Output Total 1880 / 3650 Balance -1410 / -870 800 / 800 Weight last 48 hrs Weight 184 lb 1.376 oz Weight 185 lb Physical Exam 2 Const: COMMON NORMALS: no acute distress and alert Resp: COMMON NORMALS: normal respiratory effort and No retractions Cardio: COMMON NORMALS: Peripheral pulses 2+ throughout PERIPHERAL PULSES: Peripheral pulses 2+ throughout Extremity: NARRATIVE EXTREMITY EXAM: Left hip-wound vac dressing is on and inplace. Wound vac is working and no seal issues. bloody tinge drainage from wound vac-250 ml. Hemovacc with a deep drain intact and has 100 ml of bloody tinge serosanguineous drainage. No surrounding erythema or warmth around wound site. Neuro: SENSORIUM/ORIENTATION: Yes alert Skin: GENERAL SKIN EXAM: dry skin Urinary Catheter Management: Garber: Cath Placed During This Visit: yes, but has since been removed by the nurse Reason for Continuing Indwelling Catheter: Accurate Measurement of Urinary Output in Critically Ill Patients Urinary Catheter Date of Insertion: 12/24/23 Urinary Catheter Time of Insertion: 10:00 Date Urinary Catheter Removed: 12/20/23 Time Urinary Catheter Discontinued: 19:31 Data 12/29/23 03:49 12/29/23 03:49 Micro: Microbiology 12/25/23 15:00 Anaerobic Culture - Preliminary Hip - #2 12/20/23 Unknown Anaerobic Culture - Preliminary Hip - Aspirate 12/23/23 14:20 Blood Culture - Final Blood NO GROWTH AFTER 5 DAYS 12/23/23 14:15 Blood Culture - Final Blood NO GROWTH AFTER 5 DAYS 12/25/23 15:00 Gram Stain - Final Hip - #1 Wound Culture - Final A&P Assessment and plan (1) Infected hematoma: (2) Hematoma and contusion: (3) Ankle wound: Qualifiers: Encounter type: initial encounter Laterality: left Qualified Code(s): S91.002A - Unspecified open wound, left ankle, initial encounter (4) Right above-knee amputee: Plan Plan: Medicine on board Chart reviewed Labs reviewed- Imaging reviewed Pain control PT/OT antibiotics per medicine Keep vacuum dressing on and dry and continue monitoring output Ortho will continue to follow-hopefully plan to discontinue some of the deep drains once output slows down Recommend podiatry or wound care for evaluation of left lower extremity wounds for appropriate dressings as well as possible debridement if necessary. Attestations 2 Medical Necessity Statement*: Ongoing care infected left hip hematoma Coding Level of Care Code Acute Code for g Fwd Diagnoses Infected hematoma T14.8XXA; L08.9 Hematoma and contusion T14.8XXA Wound of left ankle, initial encounter S91.002A Encounter type: initial encounter Laterality: left Right above-knee amputee Z89.611
[2023-12-29] MEDS: insulin glargine 100 units/1 mL 5 UNIT SUBCUT (09:19)
[2023-12-29] MEDS: metoprolol tartrate 25 mg Tablet PO ×2 (09:19→20:25)
[2023-12-29] MEDS: gabapentin 300 mg Capsule PO ×3 (09:19→20:25)
[2023-12-29] MEDS: losartan 50 mg Tablet 25 MG PO (11:04)
[2023-12-29] MEDS: potassium chloride ER 20 mEq Tablet 40 MEQ PO (11:05)
[2023-12-29 12:22] LABS: Glucose Point of Care 205 mg/dL (70-110)
[2023-12-29] MEDS: insulin lispro 100 unit/1 mL SUBCUT ×2 (12:23→21:26)
[2023-12-29] MEDS: diazePAM 5 mg Tablet PO (14:43)
--- NOTE | 2023-12-29 15:41 | P.PN_ITS ---
Subjective 2 Subjective: No acute events overnight. Patient has remained hemodynamically stable and afebrile with blood pressure slightly elevated today. Wound VAC drain continues to be decreased with up to 100?1 50 cc in last 24 hours. Patient otherwise awake and alert, saturating well on room air, afebrile. Vitals/I&O/Wt Last Vital Signs Temp 97.4 F L 12/29/23 08:00 Pulse 100 12/29/23 14:00 Resp 22 H 12/29/23 14:00 BP 156/91 12/29/23 14:00 Pulse Ox 98 12/29/23 14:00 O2 Del Method Nasal Cannula 12/29/23 06:00 O2 Flow Rate 2 12/29/23 06:00 12/29/23 12/29/23 12/29/23 06:59 14:59 22:59 Intake Total 470 / 2780 800 / 800 Output Total 1880 / 3650 Balance -1410 / -870 800 / 800 Weight last 48 hrs Weight 83.5 kg Weight 83.915 kg Physical Exam 2 Const: COMMON NORMALS: no acute distress and alert O RIENTATION/CONSCIOUSNESS: Yes awake, Yes oriented to person, Yes oriented to place and Yes oriented to time HENMT: COMMON NORMALS: oropharynx normal Eye: COMMON NORMALS: Equal, round and reactive pupils present PUPIL: Yes Equal, round and reactive pupils present Neck/C-Spine: COMMON NORMALS: no JVD Lymph: LYMPHATIC: no lymphadenopathy noted Resp: COMMON NORMALS: normal respiratory effort, No retractions, No use of accessory muscles and clear to auscultation bilaterally AUSCULTATION: clear to auscultation bilaterally Cardio: COMMON NORMALS: no JVD, regular rate, regular rhythm, S1 normal heart sound present, S2 normal heart sound present and No murmurs present (Cardio) RATE: regular rate RHYTHM: regular rhythm HEART SOUNDS: S1 normal heart sound present and S2 normal heart sound present GI: COMMON NORMALS: Normal to inspection, nondistended, normoactive bowel sounds present, Soft to palpation and non-tender PALPATION: Yes Soft to palpation : COMMON NORMALS: Yes no CVA tenderness BLADDER/KIDNEY EXAM: Yes no CVA tenderness Back/Pelvis: COMMON NORMALS: no CVA tenderness Extremity: NARRATIVE EXTREMITY EXAM: Right above-knee amputation Left lower extremity, multiple superficial diabetic ulcers throughout the left lal, left lower extremity, left heel, appear infected, erythematous, actively draining, foul-smelling OTHER: R AKA Left hip wound VAC present Neuro: SENSORIUM/ORIENTATION: Yes alert, Yes oriented to person, Yes oriented to place and Yes oriented to time Skin: NARRATIVE SKIN EXAM: Improvement in diffuse erythema, show ulcerations, mild weeping with blister ration of left lower extremity from dorsal foot to about three quarters of the way up the lower leg. Mildly less intense erythema. Urinary Catheter Management: Garber: Cath Placed During This Visit: yes, but has since been removed by the nurse Reason for Continuing Indwelling Catheter: Accurate Measurement of Urinary Output in Critically Ill Patients Urinary Catheter Date of Insertion: 12/24/23 Urinary Catheter Time of Insertion: 10:00 Date Urinary Catheter Removed: 12/20/23 Time Urinary Catheter Discontinued: 19:31 Data 12/29/23 03:49 12/29/23 03:49 Micro: Microbiology 12/25/23 15:00 Anaerobic Culture - Preliminary Hip - #2 12/20/23 Unknown Anaerobic Culture - Preliminary Hip - Aspirate 12/23/23 14:20 Blood Culture - Final Blood NO GROWTH AFTER 5 DAYS 12/23/23 14:15 Blood Culture - Final Blood NO GROWTH AFTER 5 DAYS 12/25/23 15:00 Gram Stain - Final Hip - #1 Wound Culture - Final A&P Assessment and plan (1) Infected fluid collection: (2) Postoperative hypotension: (3) Postoperative anemia: (4) Sepsis: Qualifiers: Sepsis type: Streptococcus, other Sepsis acute organ dysfunction status: with acute organ dysfunction Severe sepsis acute organ dysfunction type: encephalopathy Severe sepsis shock status: without septic shock Qualified Code(s): A40.8 - Other streptococcal sepsis; R65.20 - Severe sepsis without septic shock; G93.41 - Metabolic encephalopathy (5) Left leg cellulitis: (6) Acute encephalopathy: (7) Hypoalbuminemia: (8) Urinary tract infection: Qualifiers: Hematuria presence: with hematuria Urinary tract infection type: acute cystitis Qualified Code(s): N30.01 - Acute cystitis with hematuria (9) Essential hypertension: (10) Pulmonary embolism: (11) Diabetes mellitus, type II: Plan Large hematoma collection around the left hip: First I&D on 12/25. Repeat washout on 12/27. Wound VAC in place. Last drain and wound VAC overnight. Wound VAC management as per orthopedic team. Follow-up cultures. For now Gram stain shows GPC. Await final culture results. Leukocytosis have resolved for now. Postoperative hypotension: Most likely in setting of excessive fluid loss from the wound. Overall patient received 4 unit of blood transfusion. Hemoglobin stable for now. Target hemoglobin more than 8. Leukocytosis have resolved. Continue with broad-spectrum antibiotics for now. Patient has been on IV vancomycin and Zosyn since 12/16. Repeat blood cultures from 12/23 negative. Will plan to discontinue Zosyn tomorrow. Continue vancomycin to finish a 14-day course from 12/23. As per past culture history she has a history of group G Streptococcus, Pseudomonas and Klebsiella pneumonia. Plan to continue with IV vancomycin and Zosyn. History of MRSA in the past. Left leg cellulitis: Antibiotics as above. Orthopedic team has recommended AKA. Patient was agreeable at first but currently is declining as per orthopedic team. Wound care with wet-to-dry on the leg and Hydrofera Blue on the heel. History of pulmonary embolism: Eliquis is on hold given hematoma on admission. Holding off on anticoagulation for now given blood loss anemia. Will continue to monitor for now. Anemia: Postoperative anemia. Target hemoglobin around 8. Post to the blood transfusion. Continue with IV iron supplementation for overall 1 g of dose. Last dose on 12/29. Staphylococcus epidermidis bacteremia: Blood cultures from admission 1 out of 4 bottles positive. Given hematoma in place cannot rule out being actual bacteremia. Repeat blood cultures from 12/23 negative. PICC line was placed on admission. For now we will continue with PICC line. If repeat blood cultures are positive will remove PICC line accordingly. Acute encephalopathy: Present on admission. Resolved. In setting of sepsis and polypharmacy. Continue diazepam as needed, gabapentin at 300 mg 3 times daily. Patient not on methadone anymore. Continue with home dose of Effexor 150 mg daily. Full code Cardiac diet Protonix for PUD prophylaxis Cannot do SCD as patient has right leg AKA, left leg cellulitis. Cannot do medical prophylaxis because of acute anemia requiring transfusion. Plan for the day: Continue wound VAC management as per orthopedic team. Continue follow-up the wound cultures. Blood cultures negative. Patient has had Zosyn for last 12 days. Will discontinue after today's 48 hours since last washout. Continue with IV vancomycin with last dose on 01/06 for positive blood cultures with negative blood cultures from 12/23. Continue with IV iron. Blood sugar today morning slightly decreased. Hold off on Lantus for now. Continue with sliding scale. Goal blood pressure less than 140/90 mmHg. Start losartan 25 mg oral daily. Continue with metoprolol 25 mg twice daily. Hemoglobin stable. Continue with wound care for left heel and leg. Patient will benefit from podiatry consultation for possible debridement of the heel. Replace potassium with 40 mg orally. Monitor daily for now. Discharge plan: Patient will need IV antibiotics on discharge because of bacteremia. Patient is still pending amputation. 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 Will continue to follow. Case management alerted. Attestations 2 Medical Necessity Statement*: Requires further hospitalization for management of large infected hematoma around the left hip, cellulitis and gangrene of the left hip while safe discharge planning is sought, Staphylococcus epidermidis bacteremia. Diagnoses Infected fluid collection Postoperative hypotension I95.81 Postoperative anemia D64.9 Sepsis due to other Streptococcus species with encephalopathy without septic shock A40.8; R65.20; G93.41 Sepsis type: Streptococcus, other Sepsis acute organ dysfunction status: with acute organ dysfunction Severe sepsis acute organ dysfunction type: encephalopathy Severe sepsis shock status: without septic shock Left leg cellulitis L03.116 Acute encephalopathy G93.40 Hypoalbuminemia E88.09 Urinary tract infection N30.01 Hematuria presence: with hematuria Urinary tract infection type: acute cystitis Essential hypertension I10 Pulmonary embolism I26.99 Type 2 diabetes mellitus with other diabetic arthropathy, 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
[2023-12-29] MEDS: iron sucrose 200 MG in sodium chloride 0.9% (100 ml) 100 ML 220 MG IV (17:08)
[2023-12-29 17:10] LABS: Glucose Point of Care 90 mg/dL (70-110)
--- NOTE | 2023-12-29 17:28 | PC.NURSE ---
now resting after dressing change to leg wounds and heel .. michelle care done after large bm has been anxious most of afternoon. frequent reposition done .
[2023-12-29 20:38] LABS: Glucose Point of Care 174 mg/dL (70-110)
[2023-12-29] MEDS: pantoprazole 40 mg SDV IVP (21:27)
[2023-12-29] MEDS: vancomycin 1,250 MG/250 ML PIGGYBACK 250 MG IV (23:43)
[2023-12-30] VITALS (50 sets, daily range): BP systolic 127–179; BP diastolic 72–117; PULSE 100–119; RESP 17–29; TEMP 36.6–37.6; O2SAT 91–98
[2023-12-30] MEDS: hyDRALAzine 20 mg/mL INJ 1 mL 10 MG IVP (01:29)
[2023-12-30] MEDS: HYDROmorphone 1 mg/mL INJ 1 mL 0.2 MG IVP ×4 (03:12→21:24)
[2023-12-30 03:18] LABS: Glucose Point of Care 149 mg/dL (70-110)
[2023-12-30 04:14] LABS: Basophils % 0.4 %; Eosinophils # 0.4 10^3/uL (0.0-0.8); Eosinophils % 3.5 %; Hematocrit 31.9 % (36-47); Lymphocytes # 0.8 10^3/uL (0.8-4.8); Lymphocytes % 7.3 %; Mean Corpuscular HGB Conc 31.3 g/dL (30-55); Mean Corpuscular Volume 92.5 fl (85-98); Monocytes # 0.9 10^3/uL (0.2-0.9); Monocytes % 8.1 %; Neutrophils # 8.99 10^3/uL (1.8-7.7); Neutrophils % 80.2 %; Nucleated Red Blood Cells % 0 %; Platelet Count 427 10^3/cmm (157-399); Red Blood Count 3.45 10^6/uL (3.85-5.65); White Blood Count 11.21 10^3/uL (3.29-11.43)
[2023-12-30 04:36] LABS: Alanine Aminotransferase < 5 U/L (0-33); Albumin Level 3.7 g/dL (3.5-5.2); Alkaline Phosphatase 103 U/L (35-105); Anion Gap 12.5 (5-19); Aspartate Amino Transferase 9 U/L (0-32); Blood Urea Nitrogen 6 mg/dL (8-23); Calcium 8.3 mg/dL (8.5-10.5); Carbon Dioxide 25 mmol/L (22-29); Chloride 104 mmol/L (98-107); Globulin 2.6 g/dL (1.3-4.6); Glomerular Filtration Rate 358.7 mL/min (90-130); Glucose 82 mg/dL (65-115); Osmolality Calculated 283 mOsm/kg (285-295); Potassium 3.5 mmol/L (3.5-5.1); Sodium 138 mmol/L (136-145); Total Bilirubin 0.8 mg/dL (0.15-1.2); Total Protein 6.3 g/dL (6.6-8.7)
[2023-12-30] MEDS: amlodipine 5 mg Tablet PO ×2 (04:51→09:04)
[2023-12-30] MEDS: venlafaxine ER (24HR) 150 mg Capsule PO (05:09)
[2023-12-30] MEDS: HYDROcodone-acetaminophen 5-325 mg Tablet 1 TAB PO ×3 (05:33→19:22)
[2023-12-30] MEDS: acetaminophen 325 mg Tablet 650 MG PO ×2 (05:33→21:26)
[2023-12-30 07:20] LABS: Glucose Point of Care 84 mg/dL (70-110)
[2023-12-30] MEDS: metoprolol tartrate 25 mg Tablet PO ×2 (09:04→21:26)
[2023-12-30] MEDS: gabapentin 300 mg Capsule PO ×3 (09:05→21:25)
[2023-12-30] MEDS: losartan 50 mg Tablet 25 MG PO (09:05)
--- NOTE | 2023-12-30 10:36 | PC.NURSE ---
PHONE: Significant other, Scout, called to speak to pt. Informed that pt is in isolation and portable phone is for everyone and cannot go into isolation room. Scout called [employer], Venessa Nettles RN and complained about phone. Isolation reiterated and Scout informed that he could bring in pt's cell phone, even if she does not have service she can use the guest Wi-fi and make calls out to him.
--- NOTE | 2023-12-30 11:57 | PC.SOCIAL ---
IMM updated Updated pt on IMM. No questions voiced. Provided pt a copy. Initialed, dated, & timed copy in chart.
--- NOTE | 2023-12-30 11:59 | P.CONIM_ITS ---
Providers/Reason For Consult 2 Consulting Physician/Specialty*: Jose Garrido D.P.M./podiatry Reason for Consult*: Left leg and heel wound. Attending Physician: Lashell Campos MD Primary Care Provider: Wilner Hdez DO History of Present Illness History of Present Illness Polina Snyder is a 63 year old female with significant comorbidities consisting of diabetes mellitus type 2, pulmonary embolism history of pulmonary embolism, history of right above-knee amputation. Admitted to the hospital service for altered mental status and sepsis. Found to have wounds at the left lower extremity and podiatry consulted for heel wound and leg wounds. Review of Systems 2 General: Reports: 10 or more systems reviewed and unremarkable except in HPI and below Const: Denies: fever(s) or chills Eyes: Denies: change in vision Card: Denies: chest pain or palpitations Resp: Denies: dyspnea or productive cough GI: Denies: abdominal pain, nausea or vomiting : Denies: flank pain Musc: Reports: extremity swelling, joint stiffness and deformity Skin/Breast: Reports: erythema, sores, changes in skin color, dry skin, nail changes and change in hair Neuro: Reports: numbness in extremities, sensory changes and difficulty walking Psych: Denies: suicidal ideation Endo: Denies: change in body appearance Napoleon/Lymph: Denies: tender lymph nodes Medications/Allergies Home Medications Medication Instructions Recorded Confirmed Last Taken Type Nubia Lift #1 ea 12/25/22 12/16/23 Unknown Rx Hospital bed #1 ea 03/22/23 12/16/23 Unknown Rx fenofibrate micronized 200 mg 200 mg PO BEDTIME 06/11/23 12/16/23 10/25/23 History capsule pantoprazole 40 mg tablet,delayed 40 mg PO BID 06/11/23 12/16/23 10/26/23 History release prochlorperazine maleate 10 mg 10 mg PO BID PRN Nausea And 06/11/23 12/16/23 Unknown History tablet (Compazine) Vomiting albuterol sulfate 90 mcg/actuation 2 inh inhalation Q4H PRN shortness 07/17/23 12/16/23 Unknown Rx aerosol inhaler of breath or wheezing #18 grams budesonide 0.5 mg/2 mL suspension 0.5 mg inhalation BID PRN 07/17/23 12/16/23 Unknown History for nebulization Shortness Of Breath Power chair repair #1 ea 07/30/23 12/16/23 Unknown Rx silver sulfadiazine 1 % topical 1 applic topical BID #20 grams 09/09/23 12/16/23 Unknown Rx cream (Silvadene) ketoconazole 2 % shampoo See Rx Instructions .Route 09/18/23 12/16/23 Unknown Rx .COMPLEX #120 mL furosemide 40 mg tablet 40 mg PO DAILY PRN Edema 10/26/23 12/16/23 Unknown History potassium chloride 20 mEq 20 meq PO DAILY PRN unknown 10/26/23 12/16/23 Unknown History tablet,extended release diazepam 5 mg tablet 5 mg PO QAM PRN anxiety #2 tabs 11/03/23 12/16/23 10/26/23 Rx see pharmacy comment lactulose 10 gram oral packet 10 g PO DAILY encephalopathy #15 ea 11/03/23 12/16/23 Unknown Rx apixaban 5 mg tablet (Eliquis) 5 mg PO BID@0900,2100 pulmonary 11/15/23 12/16/23 Unknown Rx embolism #60 tabs venlafaxine 150 mg 150 mg PO QAM #90 caps 12/12/23 12/16/23 Unknown Rx capsule,extended release 24 hr Methadone (Unknown Source) See Rx Instructions .Route .COMPLEX 12/16/23 12/16/23 Unknown History atenolol 100 mg tablet 100 mg PO BID 12/16/23 12/16/23 Unknown History gabapentin 300 mg capsule 300 mg PO TID 12/16/23 12/16/23 Unknown History metformin 500 mg tablet,extended 500 mg PO DAILY 12/16/23 12/16/23 Unknown History release 24 hr venlafaxine 75 mg capsule,extended 75 mg PO DAILY 12/16/23 12/16/23 Unknown History release 24 hr Podus Boot to the Left #1 ea 12/30/23 Unknown Rx Allergies Allergy/AdvReac Type Severity Reaction Status Date / Time nalbuphine Allergy Unknown sick to Verified 10/07/23 09:01 stomach adhesive tape Allergy rash Verified 10/07/23 09:01 amitriptyline Allergy Unknown Verified 10/07/23 09:01 morphine Allergy ADR-Vomitin Verified 12/25/23 11:52 g nitrofurantoin Allergy ADR-Vomitin Verified 10/07/23 09:01 [From Macrobid] g Sulfa (Sulfonamide Allergy Itch all Verified 10/07/23 09:01 Antibiotics) over Current Medications Generic Name Dose Route Start Last Admin Trade Name Jensen PRN Reason Stop Dose Admin Acetaminophen 650 mg 12/16/23 22:02 12/30/23 05:33 Acetaminophen 325 Mg Tablet PO 650 mg Q6H PRN Administration Mild/Mod Pain Or Temp >/= 101 Hydrocodone Bitart/Acetaminophen 1 tab 12/25/23 18:44 12/30/23 11:15 Hydrocodone-Acetaminophen 5-325 Mg Tablet PO 1 tab Q6H PRN Administration MODERATE PAIN Amlodipine Besylate 5 mg 12/30/23 04:30 12/30/23 09:04 Amlodipine 5 Mg Tablet PO 5 mg DAILY RANJIT Administration Diazepam 5 mg 12/22/23 12:58 12/29/23 14:43 Diazepam 5 Mg Tablet PO 5 mg DAILY PRN Administration anxiety Gabapentin 300 mg 12/27/23 17:15 12/30/23 09:05 Gabapentin 300 Mg Capsule PO 300 mg TID RANJIT Administration Hydromorphone HCl 0.2 mg 12/25/23 19:04 12/30/23 09:06 Hydromorphone 1 Mg/Ml Inj 1 Ml IVP 0.2 mg Q6H PRN Administration pain Vancomycin/PEG/NADA/Lysine/Water 1,250 mg in 250 mls @ 250 mls/hr 12/17/23 23:00 12/30/23 00:45 Vancocin IV 01/06/24 23:59 Infused Q24H RANJIT Infusion Insulin Glargine 5 unit 12/20/23 12:00 12/29/23 09:19 Insulin Glargine 100 Units/1 Ml SUBCUT 5 unit DAILY RANJIT Administration Insulin Human Lispro 0 unit 12/20/23 18:00 12/30/23 08:47 Insulin Lispro 100 Unit/1 Ml SUBCUT Not Given WM&BEDTIME [facility] Protocol Losartan Potassium 25 mg 12/29/23 10:15 12/30/23 09:05 Losartan 50 Mg Tablet PO 25 mg DAILY RANJIT Administration Metoprolol Tartrate 25 mg 12/28/23 10:45 12/30/23 09:04 Metoprolol Tartrate 25 Mg Tablet PO 25 mg BID@0900,2100 [facility] Administration Non-Formulary Medication 200 mg 12/22/23 21:00 12/29/23 21:17 Fenofibrate Micronized PO Not Given BEDTIME RANJIT Ondansetron HCl 4 mg 12/16/23 22:02 12/27/23 08:32 Ondansetron 2 Mg/Ml Sdv 2 Ml IVP 4 mg Q8H PRN Administration vomiting, or N/V if npo Pantoprazole Sodium 40 mg 12/16/23 22:15 12/29/23 21:27 Pantoprazole 40 Mg Sdv IVP 40 mg Q24H RANJIT Administration Venlafaxine HCl 150 mg 12/22/23 13:05 12/30/23 05:09 Venlafaxine Er (24hr) 150 Mg Capsule PO 150 mg QAM RANJIT Administration PFSH Acute 2 PFSH: Medical History AMS (altered mental status) COPD (chronic obstructive pulmonary disease) Metabolic encephalopathy Degenerative joint disease of left knee Closed fracture of left distal femur Hypertension Closed femur fracture Venous stasis ulcer Cellulitis Diabetic neuropathy associated with type 2 diabetes mellitus Diastolic CHF Anemia Substance abuse Depression with anxiety Chronic pain History of DVT of lower extremity post-operative Hyperlipidemia Hypertension History of cardioversion history of SVT vs for other arrhythmia Methamphetamine use Diabetes mellitus, type II Xgaorvy-Ssuzd-Zwohe disease-like deformity of foot right Lung cancer Torticollis, acquired Has had good results with Botox in the past Lumbar radiculopathy Cervical post-laminectomy syndrome Surgical History Status post above-knee amputation of right lower extremity Hx of neck surgery x 2, posterior laminectomy and cervical fusion with hardware in place, limited ROM neck at baseline Hx of total knee replacement (~2010) Right History of arthroplasty of left knee (~1976) History of partial hysterectomy Hx of dilation and curettage Hx of tubal ligation Hx of appendectomy Family History Family/Other Hypertension Depression Anxiety Diabetes Father Aneurysm Mother Hypertension Brother Diabetes Sister Diabetes Social History Smoking and tobacco/nicotine status: current every day tobacco/nicotine user Alcohol intake: never Substance/Drug Use: current Substance/Drug use frequency: few times a month Additional social history: unknown if patient continues to smoke, documented to smoke previously Marital status: Female Reproductive History: Spontaneous abortions: No Vitals/I&O/Wt Last Vital Signs Temp 98.2 F 12/30/23 07:30 Pulse 102 H 12/30/23 11:00 Resp 22 H 12/30/23 11:00 BP 148/79 12/30/23 11:00 Pulse Ox 94 12/30/23 11:00 O2 Del Method Nasal Cannula 12/29/23 06:00 O2 Flow Rate 2 12/29/23 06:00 12/29/23 12/30/23 12/30/23 22:59 06:59 14:59 Intake Total 580 / 1380 1330 / 2710 240 / 240 Output Total 1500 / 1500 2225 / 3725 Balance -920 / -120 -895 / -1015 240 / 240 Weight last 48 hrs Weight 176 lb Weight 184 lb 1.376 oz Physical Exam 2 Narrative: GENERAL: Patient is alert and oriented ?3 and in no acute distress. The following is a focused left lower extremity exam. VASCULAR: Dorsalis pedis palpable left. Posterior tibial artery palpable, left. Capillary refill time less than 5 seconds to the distal hallux bilaterally. Calf is supple and nontender proximally and distally. Decreased pedal hair growth. +1 pitting edema to left lower extremity. NEUROLOGICAL: Protective sensation intact 0/10 sites, tested with Smilax Jeanne monofilament to bilateral feet. DERMATOLOGICAL: Wound left posterior heel measures 5.5 cm x 5.2 cm x 0.2 cm with eschar, no fluctuance or bogginess, no periwound erythema or purulent drainage, no crepitus with palpation of soft tissue adjacent to the wound. Grade 1 wound limited to breakdown of skin at the left anterior leg with serous exudate, no purulence. MUSCULOSKELETAL: History of right above-knee amputation. Unable to extend left knee. Contracted digits 1 through 5 left foot. Urinary Catheter Management: Garber: Cath Placed During This Visit: yes, but has since been removed by the nurse Reason for Continuing Indwelling Catheter: Accurate Measurement of Urinary Output in Critically Ill Patients Urinary Catheter Date of Insertion: 12/24/23 Urinary Catheter Time of Insertion: 10:00 Date Urinary Catheter Removed: 12/20/23 Time Urinary Catheter Discontinued: 19:31 Data 12/30/23 03:50 12/30/23 03:50 Micro: Microbiology 12/25/23 15:00 Anaerobic Culture - Preliminary Hip - #2 12/20/23 Unknown Anaerobic Culture - Preliminary Hip - Aspirate A&P Assessment and plan (1) Diabetic peripheral neuropathy associated with type 2 diabetes mellitus: (2) Non-pressure chronic ulcer of left heel and midfoot with fat layer exposed: (3) Non-pressure chronic ulcer of left ankle limited to breakdown of skin: Plan 63-year-old diabetic female with Arriaza grade 2 to wound to the left posterior heel with stable eschar and grade 1 wound to left anterior ankle with serous drainage. -X-ray left foot taken today 01/28/2024 negative for bony destruction, no indications of osteomyelitis or soft tissue edema or foreign body. -Bedside debridement performed excisional in nature sharply with dermal curette left heel -Left heel dressing Hydrofera Blue, gauze and Kerlix -Left anterior lal and ankle grade 1 wound dressed with Hydrofera Blue, gauze and Kerlix -Advised PODUS boot for offloading of left heel, will be dispensed by [facility] for transfer from podiatry standpoint, will continue wound care at her next facility, they have in-house wound care provider Coding Level of Care Code Acute Code for Chg Fwd Diagnoses Diabetic peripheral neuropathy associated with type 2 diabetes mellitus E11.42 Non-pressure chronic ulcer of left heel and midfoot with fat layer exposed L97.422 Non-pressure chronic ulcer of left ankle limited to breakdown of skin L97.321
[2023-12-30 12:05] LABS: Glucose Point of Care 163 mg/dL (70-110)
[2023-12-30] MEDS: insulin lispro 100 unit/1 mL SUBCUT ×2 (12:18→18:28)
--- NOTE | 2023-12-30 12:20 | XRR_ITS ---
PROCEDURE INFORMATION: Exam: XR Left Foot Exam date and time: 12/30/2023 12:31 PM Age: 63 years old Clinical indication: Condition or disease; Other: Heel ulcer; Patient HX: HX of lung cancer TECHNIQUE: Imaging protocol: Radiologic exam of the left foot. Views: 3 or more views. COMPARISON: MR hip LT wo con* [id number] 12/22/2023 2:26 PM FINDINGS: Bones/joints: Osteopenia. Multifocal arthritis. Pes planus. No convincing evidence of acute abnormality. Calcaneal spurs and enthesophyte. Soft tissues: Diffuse soft tissue swelling. XR/XR foot LT min 3V* [id number] IMPRESSION: 1. No obvious acute finding, but quite limited examination. 2. Additional details as above.
--- NOTE | 2023-12-30 13:23 | PC.NURSE ---
Rings: Pt asked where her rings where. Retrieved them from the Pyxis they are now with patient now in her possession.
--- NOTE | 2023-12-30 13:35 | PC.NURSE ---
HOME MEDS: removed from [facility] now in ICU. Medications will not fit into HOME med bin in [facility]. Placed in closet in pt's room.
--- NOTE | 2023-12-30 14:19 | P.PN_ITS ---
Subjective 2 Subjective: seen this morning [facility] wants us to call her family and let them know Vitals/I&O/Wt Last Vital Signs Temp 97.9 F 12/30/23 13:00 Pulse 100 12/30/23 13:30 Resp 25 H 12/30/23 13:30 BP 154/80 12/30/23 13:30 Pulse Ox 95 12/30/23 13:30 O2 Del Method Nasal Cannula 12/29/23 06:00 O2 Flow Rate 2 12/29/23 06:00 12/29/23 12/30/23 12/30/23 22:59 06:59 14:59 Intake Total 580 / 1380 1330 / 2710 480 / 480 Output Total 1500 / 1500 2225 / 3725 Balance -920 / -120 -895 / -1015 480 / 480 Weight last 48 hrs Weight 79.832 kg Weight 83.5 kg Physical Exam 2 Const: COMMON NORMALS: no acute distress and alert O RIENTATION/CONSCIOUSNESS: Yes awake, Yes oriented to person, Yes oriented to place and Yes oriented to time HENMT: COMMON NORMALS: oropharynx normal Eye: COMMON NORMALS: Equal, round and reactive pupils present PUPIL: Yes Equal, round and reactive pupils present Neck/C-Spine: COMMON NORMALS: no JVD Lymph: LYMPHATIC: no lymphadenopathy noted Resp: COMMON NORMALS: normal respiratory effort, No retractions, No use of accessory muscles and clear to auscultation bilaterally AUSCULTATION: clear to auscultation bilaterally Cardio: COMMON NORMALS: no JVD, regular rate, regular rhythm, S1 normal heart sound present, S2 normal heart sound present and No murmurs present (Cardio) RATE: regular rate RHYTHM: regular rhythm HEART SOUNDS: S1 normal heart sound present and S2 normal heart sound present GI: COMMON NORMALS: Normal to inspection, nondistended, normoactive bowel sounds present, Soft to palpation and non-tender PALPATION: Yes Soft to palpation : COMMON NORMALS: Yes no CVA tenderness BLADDER/KIDNEY EXAM: Yes no CVA tenderness Back/Pelvis: COMMON NORMALS: no CVA tenderness Extremity: NARRATIVE EXTREMITY EXAM: Right above-knee amputation Left lower extremity, multiple superficial diabetic ulcers throughout the left lal, left lower extremity, left heel, appear infected, erythematous, actively draining, foul-smelling OTHER: R AKA Left hip wound VAC present Neuro: SENSORIUM/ORIENTATION: Yes alert, Yes oriented to person, Yes oriented to place and Yes oriented to time Skin: NARRATIVE SKIN EXAM: Improvement in diffuse erythema, show ulcerations, mild weeping with blister ration of left lower extremity from dorsal foot to about three quarters of the way up the lower leg. Mildly less intense erythema. Urinary Catheter Management: Garber: Cath Placed During This Visit: yes, but has since been removed by the nurse Reason for Continuing Indwelling Catheter: Accurate Measurement of Urinary Output in Critically Ill Patients Urinary Catheter Date of Insertion: 12/24/23 Urinary Catheter Time of Insertion: 10:00 Date Urinary Catheter Removed: 12/20/23 Time Urinary Catheter Discontinued: 19:31 Data 12/30/23 03:50 12/30/23 03:50 Micro: Microbiology 12/25/23 15:00 Anaerobic Culture - Preliminary Hip - #2 12/20/23 Unknown Anaerobic Culture - Preliminary Hip - Aspirate A&P Assessment and plan (1) Infected fluid collection: (2) Postoperative hypotension: (3) Postoperative anemia: (4) Sepsis: Qualifiers: Sepsis type: Streptococcus, other Sepsis acute organ dysfunction status: with acute organ dysfunction Severe sepsis acute organ dysfunction type: encephalopathy Severe sepsis shock status: without septic shock Qualified Code(s): A40.8 - Other streptococcal sepsis; R65.20 - Severe sepsis without septic shock; G93.41 - Metabolic encephalopathy (5) Left leg cellulitis: (6) Acute encephalopathy: (7) Hypoalbuminemia: (8) Urinary tract infection: Qualifiers: Hematuria presence: with hematuria Urinary tract infection type: acute cystitis Qualified Code(s): N30.01 - Acute cystitis with hematuria (9) Essential hypertension: (10) Pulmonary embolism: (11) Diabetes mellitus, type II: Plan Large hematoma collection around the left hip: First I&D on 12/25. Repeat washout on 12/27. Wound VAC in place. Last drain and wound VAC overnight. Wound VAC management as per orthopedic team. Follow-up cultures. For now Gram stain shows GPC. Await final culture results. Leukocytosis have resolved for now. Postoperative hypotension: Most likely in setting of excessive fluid loss from the wound. Overall patient received 4 unit of blood transfusion. Hemoglobin stable for now. Target hemoglobin more than 8. Leukocytosis have resolved. Continue with broad-spectrum antibiotics for now. Patient has been on IV vancomycin and Zosyn since 12/16. Repeat blood cultures from 12/23 negative. Will plan to discontinue Zosyn tomorrow. Continue vancomycin to finish a 14-day course from 12/23. As per past culture history she has a history of group G Streptococcus, Pseudomonas and Klebsiella pneumonia. Plan to continue with IV vancomycin and Zosyn. History of MRSA in the past. Left leg cellulitis: Antibiotics as above. Orthopedic team has recommended AKA. Patient was agreeable at first but currently is declining as per orthopedic team. Wound care with wet-to-dry on the leg and Hydrofera Blue on the heel. History of pulmonary embolism: Eliquis is on hold given hematoma on admission. Holding off on anticoagulation for now given blood loss anemia. Will continue to monitor for now. Anemia: Postoperative anemia. Target hemoglobin around 8. Post to the blood transfusion. Continue with IV iron supplementation for overall 1 g of dose. Last dose on 12/29. Staphylococcus epidermidis bacteremia: Blood cultures from admission 1 out of 4 bottles positive. Given hematoma in place cannot rule out being actual bacteremia. Repeat blood cultures from 12/23 negative. PICC line was placed on admission. For now we will continue with PICC line. If repeat blood cultures are positive will remove PICC line accordingly. Acute encephalopathy: Present on admission. Resolved. In setting of sepsis and polypharmacy. Continue diazepam as needed, gabapentin at 300 mg 3 times daily. Patient not on methadone anymore. Continue with home dose of Effexor 150 mg daily. Full code Cardiac diet Protonix for PUD prophylaxis Cannot do SCD as patient has right leg AKA, left leg cellulitis. Cannot do medical prophylaxis because of acute anemia requiring transfusion. Plan for the day: Continue wound VAC management as per orthopedic team. Continue follow-up the wound cultures. Blood cultures negative. Patient has had Zosyn for last 12 days. Will discontinue after today's 48 hours since last washout. Continue with IV vancomycin with last dose on 01/06 for positive blood cultures with negative blood cultures from 12/23. Continue with IV iron. Blood sugar today morning slightly decreased. Hold off on Lantus for now. Continue with sliding scale. Goal blood pressure less than 140/90 mmHg. Start losartan 25 mg oral daily. Continue with metoprolol 25 mg twice daily. Hemoglobin stable. Continue with wound care for left heel and leg. Consult podiatry. Replace potassium with 40 mg orally. Monitor daily for now. Discharge plan: Patient will need IV antibiotics on discharge because of bacteremia. Patient is still pending amputation. 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 Will continue to follow. Case management alerted. Attestations 2 Medical Necessity Statement*: Requires further hospitalization for management of large infected hematoma around the left hip, cellulitis and gangrene of the left hip while safe discharge planning is sought, Staphylococcus epidermidis bacteremia. Diagnoses Infected fluid collection Postoperative hypotension I95.81 Postoperative anemia D64.9 Sepsis due to other Streptococcus species with encephalopathy without septic shock A40.8; R65.20; G93.41 Sepsis type: Streptococcus, other Sepsis acute organ dysfunction status: with acute organ dysfunction Severe sepsis acute organ dysfunction type: encephalopathy Severe sepsis shock status: without septic shock Left leg cellulitis L03.116 Acute encephalopathy G93.40 Hypoalbuminemia E88.09 Urinary tract infection N30.01 Hematuria presence: with hematuria Urinary tract infection type: acute cystitis Essential hypertension I10 Pulmonary embolism I26.99 Type 2 diabetes mellitus with other diabetic arthropathy, 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
[2023-12-30] MEDS: diazePAM 5 mg Tablet PO (14:20)
--- NOTE | 2023-12-30 17:15 | PC.NURSE ---
PODUS boot here. Size regular/medium. Boot applied to pt's left foot. Pt stated it felt much better.
--- NOTE | 2023-12-30 17:20 | PC.NURSE ---
Belongings: Home medications, Several rings, a necklace, paper and some other loose belongings taken home by [employer], pt's significant other. Pt still has dentures, glasses, cell phone and charge, purse and clothing in room with her for her soon to be transfer to [facility].
[2023-12-30 17:28] LABS: Glucose Point of Care 142 mg/dL (70-110)
--- NOTE | 2023-12-30 19:17 | PC.NURSE ---
Shift summary: No significant changes today. Pt rested in bed throughout the shift. Very frequent positioning provided for her comfort. She requests pain meds frequently. She has received Dilaudid and hydrocodone this shift as soon as time would allow. Sinus tach noted on monitor. Blood sugars have only required the lowest dose on sliding scale. WOund vac on left hip intact and patent 200ml of light red fluid noted in cannister. Hemovac noted to be draining red and yellow fluid. It had 100ml of output. Dr Huang man came by this afternoon and examines pt's left lower leg and heel. Dressing change done 9 Continues to be hydrofera blue, gauze and Kerlix.) PODUS boot ordered and applied. She has ate her meals well. Significant other brought her in Dr Young. She had 2450 ml of urinary output this shift. Plan is to transfer to [facility] when ready.
--- NOTE | 2023-12-30 20:34 | P.PN_ITS ---
Subjective 2 Subjective: Patient seen and examined this morning she is doing well been seen by podiatry for management of her left lower extremity wounds. Rate is slowing down and output roughly 150 from deep drain with incisional VAC and 50 cc out on the Hemovac drain over the past shift. Possible transfer to LTAC facility tomorrow Vitals/I&O/Wt Last Vital Signs Temp 99.7 F H 12/30/23 19:30 Pulse 113 H 12/30/23 19:30 Resp 25 H 12/30/23 19:30 BP 164/87 12/30/23 19:30 Pulse Ox 94 12/30/23 19:30 O2 Del Method Room Air 12/30/23 19:00 O2 Flow Rate 2 12/29/23 06:00 12/30/23 12/30/23 12/30/23 06:59 14:59 22:59 Intake Total 1330 / 2710 480 / 480 300 / 780 Output Total 2225 / 3725 2750 / 2750 Balance -895 / -1015 480 / 480 -2450 / -1970 Weight last 48 hrs Weight 176 lb Weight 184 lb 1.376 oz Physical Exam 2 Const: COMMON NORMALS: no acute distress and alert Resp: COMMON NORMALS: normal respiratory effort and No retractions Cardio: COMMON NORMALS: Peripheral pulses 2+ throughout PERIPHERAL PULSES: Peripheral pulses 2+ throughout Extremity: NARRATIVE EXTREMITY EXAM: Left hip-wound vac dressing is on and inplace. Wound vac is working and no seal issues. bloody tinge drainage from wound vac-150 ml. Hemovacc with a deep drain intact and has 50 ml of bloody tinge serosanguineous drainage. No surrounding erythema or warmth around wound site. Neuro: SENSORIUM/ORIENTATION: Yes alert Skin: GENERAL SKIN EXAM: dry skin Urinary Catheter Management: Garber: Cath Placed During This Visit: yes, but has since been removed by the nurse Reason for Continuing Indwelling Catheter: Accurate Measurement of Urinary Output in Critically Ill Patients Urinary Catheter Date of Insertion: 12/24/23 Urinary Catheter Time of Insertion: 10:00 Date Urinary Catheter Removed: 12/20/23 Time Urinary Catheter Discontinued: 19:31 Data 12/30/23 03:50 12/30/23 03:50 Micro: Microbiology 12/25/23 15:00 Anaerobic Culture - Preliminary Hip - #2 12/20/23 Unknown Anaerobic Culture - Preliminary Hip - Aspirate A&P Assessment and plan (1) Infected hematoma: (2) Hematoma and contusion: (3) Ankle wound: Qualifiers: Encounter type: initial encounter Laterality: left Qualified Code(s): S91.002A - Unspecified open wound, left ankle, initial encounter (4) Right above-knee amputee: Plan Plan: Medicine on board Chart reviewed Labs reviewed Imaging reviewed Pain control PT/OT antibiotics per medicine Keep vacuum dressing on and dry and continue monitoring output Ortho will continue to follow-hopefully plan to discontinue some of the deep drains once output slows down Podiatry on board for left lower extremity wound evaluation and recommendations Attestations 2 Medical Necessity Statement*: Ongoing care infected left hip hematoma status post 2 I&D's Coding Level of Care Code Acute Code for Chg Fwd Diagnoses Infected hematoma T14.8XXA; L08.9 Hematoma and contusion T14.8XXA Wound of left ankle, initial encounter S91.002A Encounter type: initial encounter Laterality: left Right above-knee amputee Z89.611
[2023-12-30 21:14] LABS: Glucose Point of Care 116 mg/dL (70-110)
[2023-12-30] MEDS: pantoprazole 40 mg SDV IVP (21:31)
[2023-12-31] VITALS (45 sets, daily range): BP systolic 100–186; BP diastolic 63–94; PULSE 87–114; RESP 16–24; TEMP 36.6–37.4; O2SAT 90–94
[2023-12-31] MEDS: vancomycin 1,250 MG/250 ML PIGGYBACK 250 MG IV ×2 (00:17→23:10)
[2023-12-31] MEDS: HYDROcodone-acetaminophen 5-325 mg Tablet 1 TAB PO ×3 (01:46→18:39)
[2023-12-31] MEDS: HYDROmorphone 1 mg/mL INJ 1 mL 0.2 MG IVP ×4 (03:27→23:09)
[2023-12-31 04:28] LABS: Basophils % 0.5 %; Eosinophils # 0.5 10^3/uL (0.0-0.8); Eosinophils % 6.5 %; Hematocrit 32.2 % (36-47); Lymphocytes % 13.5 %; Mean Corpuscular HGB Conc 31.1 g/dL (30-55); Mean Corpuscular Hemoglobin 28.5 pg (27-33); Mean Corpuscular Volume 91.7 fl (85-98); Mean Platelet Volume 9.2 fL (7.4-10.4); Monocytes # 0.8 10^3/uL (0.2-0.9); Monocytes % 10.4 %; Neutrophils # 5.11 10^3/uL (1.8-7.7); Neutrophils % 68.8 %; Nucleated Red Blood Cells % 0 %; Platelet Count 413 10^3/cmm (157-399); Red Blood Count 3.51 10^6/uL (3.85-5.65); Red Cell Distribution Width 20.6 % (12.1-15.1); White Blood Count 7.42 10^3/uL (3.29-11.43)
[2023-12-31 04:39] LABS: Alanine Aminotransferase < 5 U/L (0-33); Albumin Level 3.5 g/dL (3.5-5.2); Alkaline Phosphatase 118 U/L (35-105); Anion Gap 13.5 (5-19); Aspartate Amino Transferase 6 U/L (0-32); Blood Urea Nitrogen 12 mg/dL (8-23); Calcium 8.2 mg/dL (8.5-10.5); Carbon Dioxide 28 mmol/L (22-29); Chloride 102 mmol/L (98-107); Globulin 2.7 g/dL (1.3-4.6); Glomerular Filtration Rate 161.2 mL/min (90-130); Glucose 153 mg/dL (65-115); Osmolality Calculated 293 mOsm/kg (285-295); Potassium 3.5 mmol/L (3.5-5.1); Sodium 140 mmol/L (136-145); Total Bilirubin 0.5 mg/dL (0.15-1.2); Total Protein 6.2 g/dL (6.6-8.7)
[2023-12-31 04:50] LABS: Magnesium 1.4 mg/dL (1.7-2.3)
[2023-12-31] MEDS: venlafaxine ER (24HR) 150 mg Capsule PO (05:49)
[2023-12-31] MEDS: acetaminophen 325 mg Tablet 650 MG PO (06:13)
[2023-12-31 07:07] LABS: Glucose Point of Care 118 mg/dL (70-110)
[2023-12-31] MEDS: losartan 50 mg Tablet 25 MG PO (08:36)
[2023-12-31] MEDS: metoprolol tartrate 25 mg Tablet PO ×2 (08:38→21:25)
[2023-12-31] MEDS: amlodipine 5 mg Tablet PO (08:38)
[2023-12-31] MEDS: gabapentin 300 mg Capsule PO ×3 (08:38→21:25)
[2023-12-31] MEDS: magnesium sulfate premix 4 GM/100 ML PREMIX IV (09:20)
--- NOTE | 2023-12-31 09:36 | PC.NURSE ---
Pt received orders for a boot. Boot in place this morning.
--- NOTE | 2023-12-31 11:49 | P.PN_ITS ---
Subjective 2 Subjective: seen this morning she is doing well hemovac output 135 ml wound vac 350 ml Vitals/I&O/Wt Last Vital Signs Temp 97.9 F 12/31/23 08:00 Pulse 114 H 12/31/23 10:00 Resp 18 12/31/23 10:00 BP 141/85 12/31/23 10:00 Pulse Ox 91 12/31/23 10:00 O2 Del Method Room Air 12/30/23 19:00 O2 Flow Rate 2 12/29/23 06:00 12/30/23 12/31/23 12/31/23 22:59 06:59 14:59 Intake Total 780 / 1260 730 / 1990 580 / 580 Output Total 2750 / 2750 1720 / 4470 65 / 65 Balance -1970 / -1490 -990 / -2480 515 / 515 Weight last 48 hrs Weight 79.2 kg Weight 79.832 kg Physical Exam 2 Const: COMMON NORMALS: no acute distress and alert O RIENTATION/CONSCIOUSNESS: Yes awake, Yes oriented to person, Yes oriented to place and Yes oriented to time HENMT: COMMON NORMALS: oropharynx normal Eye: COMMON NORMALS: Equal, round and reactive pupils present PUPIL: Yes Equal, round and reactive pupils present Neck/C-Spine: COMMON NORMALS: no JVD Lymph: LYMPHATIC: no lymphadenopathy noted Resp: COMMON NORMALS: normal respiratory effort, No retractions, No use of accessory muscles and clear to auscultation bilaterally AUSCULTATION: clear to auscultation bilaterally Cardio: COMMON NORMALS: no JVD, regular rate, regular rhythm, S1 normal heart sound present, S2 normal heart sound present and No murmurs present (Cardio) RATE: regular rate RHYTHM: regular rhythm HEART SOUNDS: S1 normal heart sound present and S2 normal heart sound present GI: COMMON NORMALS: Normal to inspection, nondistended, normoactive bowel sounds present, Soft to palpation and non-tender PALPATION: Yes Soft to palpation : COMMON NORMALS: Yes no CVA tenderness BLADDER/KIDNEY EXAM: Yes no CVA tenderness Back/Pelvis: COMMON NORMALS: no CVA tenderness Extremity: NARRATIVE EXTREMITY EXAM: Right above-knee amputation Left lower extremity, multiple superficial diabetic ulcers throughout the left lal,covered with dressing and boot today. OTHER: R AKA Left hip wound VAC present Neuro: SENSORIUM/ORIENTATION: Yes alert, Yes oriented to person, Yes oriented to place and Yes oriented to time Skin: NARRATIVE SKIN EXAM: Improvement in diffuse erythema, show ulcerations, mild weeping with blister ration of left lower extremity from dorsal foot to about three quarters of the way up the lower leg. Mildly less intense erythema. Urinary Catheter Management: Garber: Cath Placed During This Visit: yes, but has since been removed by the nurse Reason for Continuing Indwelling Catheter: Accurate Measurement of Urinary Output in Critically Ill Patients Urinary Catheter Date of Insertion: 12/24/23 Urinary Catheter Time of Insertion: 10:00 Date Urinary Catheter Removed: 12/20/23 Time Urinary Catheter Discontinued: 19:31 Data 12/31/23 04:19 12/31/23 04:19 Micro: Microbiology 12/25/23 15:00 Anaerobic Culture - Preliminary Hip - #2 12/20/23 Unknown Anaerobic Culture - Preliminary Hip - Aspirate A&P Assessment and plan (1) Infected fluid collection: (2) Postoperative hypotension: (3) Postoperative anemia: (4) Sepsis: Qualifiers: Sepsis type: Streptococcus, other Sepsis acute organ dysfunction status: with acute organ dysfunction Severe sepsis acute organ dysfunction type: encephalopathy Severe sepsis shock status: without septic shock Qualified Code(s): A40.8 - Other streptococcal sepsis; R65.20 - Severe sepsis without septic shock; G93.41 - Metabolic encephalopathy (5) Left leg cellulitis: (6) Acute encephalopathy: (7) Hypoalbuminemia: (8) Urinary tract infection: Qualifiers: Hematuria presence: with hematuria Urinary tract infection type: acute cystitis Qualified Code(s): N30.01 - Acute cystitis with hematuria (9) Essential hypertension: (10) Pulmonary embolism: (11) Diabetes mellitus, type II: Plan Large hematoma collection around the left hip: First I&D on 12/25. Repeat washout on 12/27. Wound VAC in place. Last drain and wound VAC overnight. Wound VAC management as per orthopedic team. Follow-up cultures. For now Gram stain shows GPC. Await final culture results. Leukocytosis have resolved for now. Postoperative hypotension: Most likely in setting of excessive fluid loss from the wound. Overall patient received 4 unit of blood transfusion. Hemoglobin stable for now. Target hemoglobin more than 8. Leukocytosis have resolved. Continue with broad-spectrum antibiotics for now. Patient has been on IV vancomycin and Zosyn since 12/16. Repeat blood cultures from 12/23 negative. Will plan to discontinue Zosyn tomorrow. Continue vancomycin to finish a 14-day course from 12/23. As per past culture history she has a history of group G Streptococcus, Pseudomonas and Klebsiella pneumonia. Plan to continue with IV vancomycin and Zosyn. History of MRSA in the past. Left leg cellulitis: Antibiotics as above. Orthopedic team has recommended AKA. Patient was agreeable at first but currently is declining as per orthopedic team. Wound care with wet-to-dry on the leg and Hydrofera Blue on the heel. History of pulmonary embolism: Eliquis is on hold given hematoma on admission. Holding off on anticoagulation for now given blood loss anemia. Will continue to monitor for now. Anemia: Postoperative anemia. Target hemoglobin around 8. Post to the blood transfusion. Continue with IV iron supplementation for overall 1 g of dose. Last dose on 12/29. Staphylococcus epidermidis bacteremia: Blood cultures from admission 1 out of 4 bottles positive. Given hematoma in place cannot rule out being actual bacteremia. Repeat blood cultures from 12/23 negative. PICC line was placed on admission. For now we will continue with PICC line. If repeat blood cultures are positive will remove PICC line accordingly. Acute encephalopathy: Present on admission. Resolved. In setting of sepsis and polypharmacy. Continue diazepam as needed, gabapentin at 300 mg 3 times daily. Patient not on methadone anymore. Continue with home dose of Effexor 150 mg daily. Full code Cardiac diet Protonix for PUD prophylaxis Cannot do SCD as patient has right leg AKA, left leg cellulitis. Cannot do medical prophylaxis because of acute anemia requiring transfusion. Plan for the day: Continue wound VAC management as per orthopedic team. Continue follow-up the wound cultures. Blood cultures negative. Stop zosyn today. Continue with IV vancomycin with last dose on 01/06 for positive blood cultures with negative blood cultures from 12/23. IV iron completed. Continue with sliding scale. Goal blood pressure less than 140/90 mmHg. Start losartan 25 mg oral daily. Continue with metoprolol 25 mg twice daily. Hemoglobin stable. Continue with wound care for left heel and leg. Consult podiatry. Replace potassium with 40 mg orally. Monitor daily for now. Discharge plan: Patient will need IV antibiotics on discharge because of bacteremia. Patient is still pending amputation. 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 Will continue to follow. Case management alerted. Attestations 2 Medical Necessity Statement*: Ongoing care infected left hip hematoma status post 2 I&D's Diagnoses Infected fluid collection Postoperative hypotension I95.81 Postoperative anemia D64.9 Sepsis due to other Streptococcus species with encephalopathy without septic shock A40.8; R65.20; G93.41 Sepsis type: Streptococcus, other Sepsis acute organ dysfunction status: with acute organ dysfunction Severe sepsis acute organ dysfunction type: encephalopathy Severe sepsis shock status: without septic shock Left leg cellulitis L03.116 Acute encephalopathy G93.40 Hypoalbuminemia E88.09 Urinary tract infection N30.01 Hematuria presence: with hematuria Urinary tract infection type: acute cystitis Essential hypertension I10 Pulmonary embolism I26.99 Type 2 diabetes mellitus with other diabetic arthropathy, 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
[2023-12-31 12:03] LABS: Glucose Point of Care 186 mg/dL (70-110)
[2023-12-31] MEDS: insulin lispro 100 unit/1 mL SUBCUT ×2 (12:09→18:14)
--- NOTE | 2023-12-31 13:36 | PC.NURSE ---
Pt still complaining of pain of 6-7 after receiving 0.2 mg of hydromorphe and says that dose isn't really helping her pain. Called Dr. Wilson and she said ok to put in orders for a one time dose of 0.5 mg of hydromorphone. We will see how the pt responds to 0.5 mg before increasing the scheduled dose.
[2023-12-31] MEDS: HYDROmorphone 1 mg/mL INJ 1 mL 0.5 MG IVP (13:47)
--- NOTE | 2023-12-31 16:11 | P.PN_ITS ---
Subjective 2 Subjective: Pt is 4 days post op left hip I & D. Patient seen and examined this afternoon. Wound vac drainage 450 ml over last 12 hours and deep Hemovac drain 135 ml. No acute events overnight. Pt got out of bed today and was in chair. Dr. Garrido saw pt yesterday and managed wound on heel. Pt likely being transfered up to med surg unit tomorrow. pain controlled. no fevers. Vitals/I&O/Wt Last Vital Signs Temp 99.4 F 12/31/23 12:00 Pulse 91 12/31/23 14:00 Resp 18 12/31/23 14:00 BP 147/87 12/31/23 14:00 Pulse Ox 91 12/31/23 14:00 O2 Del Method Room Air 12/30/23 19:00 O2 Flow Rate 2 12/29/23 06:00 12/31/23 12/31/23 12/31/23 06:59 14:59 22:59 Intake Total 730 / 1990 820 / 820 Output Total 1720 / 4470 65 / 65 1500 / 1565 Balance -990 / -2480 755 / 755 -1500 / -745 Weight last 48 hrs Weight 174 lb 9.698 oz Weight 176 lb Physical Exam 2 Const: COMMON NORMALS: no acute distress and alert Resp: COMMON NORMALS: normal respiratory effort and No retractions Cardio: COMMON NORMALS: Peripheral pulses 2+ throughout PERIPHERAL PULSES: Peripheral pulses 2+ throughout Extremity: NARRATIVE EXTREMITY EXAM: Left hip-wound vac dressing is on and inplace. Wound vac is working and no seal issues. bloody tinge drainage from wound vac-450 ml over last 12 hours. Hemovacc with a deep drain intact and has 135 ml of bloody tinge serosanguineous drainage. No surrounding erythema or warmth around wound site. Neuro: SENSORIUM/ORIENTATION: Yes alert Skin: GENERAL SKIN EXAM: dry skin Urinary Catheter Management: Garber: Cath Placed During This Visit: yes, but has since been removed by the nurse Reason for Continuing Indwelling Catheter: Accurate Measurement of Urinary Output in Critically Ill Patients Urinary Catheter Date of Insertion: 12/24/23 Urinary Catheter Time of Insertion: 10:00 Date Urinary Catheter Removed: 12/20/23 Time Urinary Catheter Discontinued: 19:31 Data 12/31/23 04:19 12/31/23 04:19 Micro: Microbiology 12/25/23 15:00 Anaerobic Culture - Preliminary Hip - #2 12/20/23 Unknown Anaerobic Culture - Preliminary Hip - Aspirate A&P Assessment and plan (1) Infected hematoma: (2) Hematoma and contusion: (3) Ankle wound: Qualifiers: Encounter type: initial encounter Laterality: left Qualified Code(s): S91.002A - Unspecified open wound, left ankle, initial encounter (4) Right above-knee amputee: Plan Plan: Medicine on board Chart reviewed Labs reviewed Imaging reviewed Pain control PT/OT antibiotics per medicine Keep vacuum dressing on and dry and continue monitoring output-drainage output has not decreased enough to warrant any drains being pulled yet. Ortho will continue to follow-hopefully plan to discontinue some of the drains once output slows down Podiatry on board for left lower extremity wound evaluation and recommendations Attestations 2 Medical Necessity Statement*: Ongoing care infected left hip hematoma Coding Level of Care Code Acute Code for [facility] Fwd Diagnoses Infected hematoma T14.8XXA; L08.9 Hematoma and contusion T14.8XXA Wound of left ankle, initial encounter S91.002A Encounter type: initial encounter Laterality: left Right above-knee amputee Z89.611
[2023-12-31] MEDS: diazePAM 5 mg Tablet PO (16:54)
[2023-12-31 17:34] LABS: Glucose Point of Care 157 mg/dL (70-110)
--- NOTE | 2023-12-31 18:47 | P.PN_ITS ---
Subjective 2 Subjective: Patient seen bedside, denies any acute events overnight. She received her PODUS boot and this is being worn to the left lower extremity for offloading of the heel. Vitals/I&O/Wt Last Vital Signs Temp 98.9 F 12/31/23 16:00 Pulse 104 H 12/31/23 18:00 Resp 18 12/31/23 18:00 BP 100/63 12/31/23 18:00 Pulse Ox 93 12/31/23 18:00 O2 Del Method Room Air 12/30/23 19:00 O2 Flow Rate 2 12/29/23 06:00 12/31/23 12/31/23 12/31/23 06:59 14:59 22:59 Intake Total 730 / 1990 820 / 820 240 / 1060 Output Total 1720 / 4470 65 / 65 1575 / 1640 Balance -990 / -2480 755 / 755 -1335 / -580 Weight last 48 hrs Weight 174 lb 9.698 oz Weight 176 lb Physical Exam 2 Narrative: GENERAL: Patient is alert and oriented ?3 and in no acute distress. The following is a focused left lower extremity exam. VASCULAR: Dorsalis pedis palpable left. Posterior tibial artery palpable, left. Capillary refill time less than 5 seconds to the distal hallux bilaterally. Calf is supple and nontender proximally and distally. Decreased pedal hair growth. +1 pitting edema to left lower extremity. NEUROLOGICAL: Protective sensation intact 0/10 sites, tested with [place] Jeanne monofilament to bilateral feet. DERMATOLOGICAL: Wound left posterior heel measures 5.5 cm x 5.2 cm x 0.2 cm with eschar, no fluctuance or bogginess, no periwound erythema or purulent drainage, no crepitus with palpation of soft tissue adjacent to the wound. Grade 1 wound limited to breakdown of skin at the left anterior leg with serous exudate, no purulence. MUSCULOSKELETAL: History of right above-knee amputation. Unable to extend left knee. Contracted digits 1 through 5 left foot. Urinary Catheter Management: Garber: Cath Placed During This Visit: yes, but has since been removed by the nurse Reason for Continuing Indwelling Catheter: Accurate Measurement of Urinary Output in Critically Ill Patients Urinary Catheter Date of Insertion: 12/24/23 Urinary Catheter Time of Insertion: 10:00 Date Urinary Catheter Removed: 12/20/23 Time Urinary Catheter Discontinued: 19:31 Data 12/31/23 04:19 12/31/23 04:19 Micro: Microbiology 12/25/23 15:00 Anaerobic Culture - Preliminary Hip - #2 12/20/23 Unknown Anaerobic Culture - Preliminary Hip - Aspirate A&P Assessment and plan (1) Diabetic peripheral neuropathy associated with type 2 diabetes mellitus: (2) Non-pressure chronic ulcer of left heel and midfoot with fat layer exposed: (3) Non-pressure chronic ulcer of left ankle limited to breakdown of skin: Plan 63-year-old diabetic female with Arriaza grade 2 to wound to the left posterior heel with stable eschar and grade 1 wound to left anterior ankle with serous drainage. -X-ray left foot taken today 01/28/2024 negative for bony destruction, no indications of osteomyelitis or soft tissue edema or foreign body. -Left heel dressing Hydrofera Blue, gauze and Kerlix -Left anterior lal and ankle grade 1 wound dressed with Hydrofera Blue, gauze and Kerlix -Patient received her PODUS boot and is wearing this, is to wear this at all times for offloading of the left heel. -Okay for transfer from podiatry standpoint, will continue wound care at her next facility, they have in-house wound care provider Attestations 2 Medical Necessity Statement*: Left heel and left leg wound Coding Level of Care Code Acute Code for Chg Fwd Diagnoses Diabetic peripheral neuropathy associated with type 2 diabetes mellitus E11.42 Non-pressure chronic ulcer of left heel and midfoot with fat layer exposed L97.422 Non-pressure chronic ulcer of left ankle limited to breakdown of skin L97.321
--- NOTE | 2023-12-31 19:00 | PC.NURSE ---
Pts significant other Scout took her homemeds home with him earlier today. No home meds here at this time.
[2023-12-31 21:13] LABS: Glucose Point of Care 115 mg/dL (70-110)
[2023-12-31] MEDS: pantoprazole 40 mg SDV IVP (21:25)
[2024-01-01] VITALS (15 sets, daily range): BP systolic 135–179; BP diastolic 61–91; PULSE 83–112; RESP 15–21; TEMP 36.8; O2SAT 89–96; BMI 28.2
[2024-01-01] MEDS: HYDROcodone-acetaminophen 5-325 mg Tablet 1 TAB PO ×4 (01:59→20:22)
[2024-01-01 04:53] LABS: Basophils # 0.1 10^3/uL (0.0-0.1); Basophils % 0.9 %; Eosinophils # 0.5 10^3/uL (0.0-0.8); Lymphocytes % 13.6 %; Mean Corpuscular HGB Conc 30.9 g/dL (30-55); Mean Corpuscular Hemoglobin 29.1 pg (27-33); Mean Corpuscular Volume 94.3 fl (85-98); Monocytes # 0.7 10^3/uL (0.2-0.9); Monocytes % 9.2 %; Neutrophils # 5.25 10^3/uL (1.8-7.7); Nucleated Red Blood Cells % 0 %; Platelet Count 424 10^3/cmm (157-399); Red Blood Count 3.71 10^6/uL (3.85-5.65); Red Cell Distribution Width 20.6 % (12.1-15.1)
[2024-01-01 05:17] LABS: Alanine Aminotransferase < 5 U/L (0-33); Albumin Level 3.4 g/dL (3.5-5.2); Alkaline Phosphatase 127 U/L (35-105); Aspartate Amino Transferase 7 U/L (0-32); Blood Urea Nitrogen 13 mg/dL (8-23); Calcium 8.2 mg/dL (8.5-10.5); Carbon Dioxide 30 mmol/L (22-29); Chloride 104 mmol/L (98-107); Globulin 3.1 g/dL (1.3-4.6); Glomerular Filtration Rate 224.7 mL/min (90-130); Glucose 134 mg/dL (65-115); Osmolality Calculated 300 mOsm/kg (285-295); Sodium 144 mmol/L (136-145); Total Bilirubin 0.3 mg/dL (0.15-1.2); Total Protein 6.5 g/dL (6.6-8.7)
[2024-01-01] MEDS: venlafaxine ER (24HR) 150 mg Capsule PO (06:29)
[2024-01-01] MEDS: HYDROmorphone 1 mg/mL INJ 1 mL 0.2 MG IVP ×2 (06:29→15:34)
--- NOTE | 2024-01-01 06:39 | PM.PN ---
Subjective Subjective: Patient seen bedside, planning on transfer to halfway this evening around 6 PM. States that the PODUS boot to the left lower extremity is comfortable. Vitals/I&O/Wt Last Vital Signs Temp 98.3 F 01/01/24 03:28 Pulse 83 01/01/24 03:28 Resp 18 01/01/24 06:29 BP 164/87 01/01/24 03:28 Pulse Ox 92 01/01/24 06:29 O2 Del Method Room Air 12/31/23 20:00 O2 Flow Rate 2 12/29/23 06:00 12/31/23 12/31/23 01/01/24 14:59 22:59 06:59 Intake Total 820 / 820 480 / 1300 250 / 1550 Output Total 65 / 65 2575 / 2640 80 / 2720 Balance 755 / 755 -2095 / -1340 170 / -1170 Weight last 48 hrs Weight 174 lb 9.698 oz Physical Exam Narrative: GENERAL: Patient is alert and oriented ?3 and in no acute distress. The following is a focused left lower extremity exam. VASCULAR: Dorsalis pedis palpable left. Posterior tibial artery palpable, left. Capillary refill time less than 5 seconds to the distal hallux bilaterally. Calf is supple and nontender proximally and distally. Decreased pedal hair growth. +1 pitting edema to left lower extremity. NEUROLOGICAL: Protective sensation intact 0/10 sites, tested with [place] Jeanne monofilament to bilateral feet. DERMATOLOGICAL: Wound left posterior heel measures 5.5 cm x 5.2 cm x 0.2 cm with eschar, no fluctuance or bogginess, no periwound erythema or purulent drainage, no crepitus with palpation of soft tissue adjacent to the wound. Grade 1 wound limited to breakdown of skin at the left anterior leg with serous exudate, no purulence. MUSCULOSKELETAL: History of right above-knee amputation. Unable to extend left knee. Contracted digits 1 through 5 left foot. Urinary Catheter Management: Garber: Cath Placed During This Visit: yes, but has since been removed by the nurse Reason for Continuing Indwelling Catheter: Accurate Measurement of Urinary Output in Critically Ill Patients Urinary Catheter Date of Insertion: 12/24/23 Urinary Catheter Time of Insertion: 10:00 Date Urinary Catheter Removed: 12/20/23 Time Urinary Catheter Discontinued: 19:31 Data 01/01/24 04:32 01/01/24 04:32 Micro: Microbiology 12/25/23 15:00 Anaerobic Culture - Preliminary Hip - #2 12/20/23 Unknown Anaerobic Culture - Preliminary Hip - Aspirate A&P Assessment and plan (1) Diabetic peripheral neuropathy associated with type 2 diabetes mellitus: (2) Non-pressure chronic ulcer of left heel and midfoot with fat layer exposed: (3) Non-pressure chronic ulcer of left ankle limited to breakdown of skin: Plan 63-year-old diabetic female with Arriaza grade 2 to wound to the left posterior heel with stable eschar and grade 1 wound to left anterior ankle with serous drainage. -X-ray left foot taken today 01/28/2024 negative for bony destruction, no indications of osteomyelitis or soft tissue edema or foreign body. -Left heel dressing Hydrofera Blue, gauze and Kerlix -Left anterior lal and ankle grade 1 wound dressed with Hydrofera Blue, gauze and Kerlix, calamine at dry skin adjacent to the wound. -Recommend PODUS boot to the left lower extremity at all times for offloading of the left heel wound. -Okay for transfer from podiatry standpoint, will continue wound care at her next facility, they have in-house wound care provider Attestations Medical Necessity Statement*: Left diabetic leg and foot ulcer Coding Level of Care Code Acute Code for [facility] Fwd Diagnoses Diabetic peripheral neuropathy associated with type 2 diabetes mellitus E11.42 Non-pressure chronic ulcer of left heel and midfoot with fat layer exposed L97.422 Non-pressure chronic ulcer of left ankle limited to breakdown of skin L97.321
[2024-01-01] MEDS: gabapentin 300 mg Capsule PO ×3 (08:27→20:21)
[2024-01-01] MEDS: amlodipine 5 mg Tablet PO (08:27)
[2024-01-01] MEDS: losartan 50 mg Tablet 25 MG PO (08:27)
[2024-01-01] MEDS: metoprolol tartrate 25 mg Tablet PO ×2 (08:27→20:21)
[2024-01-01 08:32] LABS: Glucose Point of Care 112 mg/dL (70-110)
--- NOTE | 2024-01-01 08:48 | PM.TDS ---
Transfer Summary Providers Date of Admission: 12/16/23 21:37 Date of Discharge/Transfer: 01/01/24 Attending Provider at Admission: Jose Tapia MD Attending Provider at Transfer: Lashell Campos MD Primary Care Provider: Wilner Hdez DO Transfer Plans: Anticipated date of transfer: 01/01/24. Receiving Facility: [facility]. Receiving Provider: Dr. Fofana. Diagnoses at Discharge Discharge Diagnosis (1) Diabetic peripheral neuropathy associated with type 2 diabetes mellitus: Status: Acute (2) Non-pressure chronic ulcer of left heel and midfoot with fat layer exposed: Status: Acute (3) Non-pressure chronic ulcer of left ankle limited to breakdown of skin: Status: Acute Reason for Visit Reason for Visit ams, post fall last night Brief History: As per Dr. Tapia Polina Snyder is a 63 year old female with a past medical history of type 2 diabetes mellitus, history of right above-knee amputation, history of left leg cellulitis diabetic ulcer, managed with wound care, history of pulmonary embolism, hospitalization in October for altered mental status secondary to sepsis septic shock left lower extremity cellulitis history of altered mental status secondary to polypharmacy, history of hepatic encephalopathy, history of methadone use, history of amphetamine abuse who presents [facility] due to altered mental status. Currently patient is examined, she awakens to sternal rub but falls back asleep, does not follow commands, blood pressure 105/48, pulse 68, temperature 98.2, she is 93% on room air, according to ER provider patient had a fall last night was found on the floor by family, with altered mental status, she was found covered in her urine, urine covering her dressing, malodorous, unkempt Hospital Course Hospital Course 63-year-old female presented to the hospital with altered mental status secondary to UTI, cellulitis, sepsis. She was diagnosed with septic shock most likely secondary to UTI versus lower extremity cellulitis and wounds required vasopressors initially. CT scan of the left lower extremity was ordered which showed soft tissue infiltration throughout superficial and deep compartments of left lower extremity. No focal collection or abscess identified on this unenhanced exam this may be edema or cellulitis. Orthopedic surgery was consulted at this point. It was suspected that patient has a left hip hematoma. MRI hip was ordered which showed left lateral hip collection extending into anterior thigh with internal fat signal suggestive Ortega Joe lesion superimposed infection not totally excluded. Patient underwent left hematoma of the hip evacuation 55 cm x 35 cm x 12 cm (2 L evacuated) left hip irrigation debridement done intraoperative cultures taken for infected hematoma, deep wound VAC applied. Patient did develop postoperative hypotension due to postoperative blood loss. Received 4 units packed RBCs. Eliquis being held secondary to hematoma and admission. Patient had to go back to the OR on 27 December for deep drains placement and wound VAC. During hospitalization she was also found to have Staphylococcus epidermidis bacteremia blood culture 1 out of 4 bottles positive. PICC line was placed. Patient treated with Zosyn since admission until 12/16. Vancomycin also given and she is to complete 2 weeks from 12/23. Last day antibiotic vancomycin 12/1919. For left lower extremity wounds podiatry was consulted on 12/30/2023. Bedside debridement performed an excisional in nature sharply with dermal curette left heel. Recommend left heel dressing Hydrofera Blue, gauze, Kerlix. Left anterior lal and ankle grade 1 wound dressed with Hydrofera Blue gauze and Kerlix. POTUS boot advised for offloading of left heel. Patient received boot 12/31 2023. Patient currently has a Hemovac and wound VAC in place. Orthopedic surgery managing those at this time. One of the drains to be removed by Ortho today and second drain instructions for removal to be provided by ortho today. Patient will be sent to select LTAC at this point. We recommend to continue to hold Eliquis at this time due to large hip hematoma. Physical Exam Const: COMMON NORMALS: no acute distress and alert ORIENTATION/CONSCIOUSNESS: Yes awake, Yes oriented to person, Yes oriented to place and Yes oriented to time HENMT: COMMON NORMALS: oropharynx normal Eye: COMMON NORMALS: Equal, round and reactive pupils present PUPIL: Yes Equal, round and reactive pupils present Neck/C-Spine: COMMON NORMALS: no JVD Lymph: LYMPHATIC: no lymphadenopathy noted Resp: COMMON NORMALS: normal respiratory effort, No retractions, No use of accessory muscles and clear to auscultation bilaterally AUSCULTATION: clear to auscultation bilaterally Cardio: COMMON NORMALS: no JVD, regular rate, regular rhythm, S1 normal heart sound present, S2 normal heart sound present and No murmurs present (Cardio) RATE: regular rate RHYTHM: regular rhythm HEART SOUNDS: S1 normal heart sound present and S2 normal heart sound present GI: COMMON NORMALS: Normal to inspection, nondistended, normoactive bowel sounds present, Soft to palpation and non-tender PALPATION: Yes Soft to palpation : COMMON NORMALS: Yes no CVA tenderness BLADDER/KIDNEY EXAM: Yes no CVA tenderness Back/Pelvis: COMMON NORMALS: no CVA tenderness Extremity: NARRATIVE EXTREMITY EXAM: Right above-knee amputation Left lower extremity, multiple superficial diabetic ulcers throughout the left lal,covered with dressing and boot today. OTHER: R AKA Left hip wound VAC present Neuro: SENSORIUM/ORIENTATION: Yes alert, Yes oriented to person, Yes oriented to place and Yes oriented to time Skin: NARRATIVE SKIN EXAM: Left lower extremity seen and POTUS boot at this time wrapped. Did not take dressing down today. Urinary Catheter Management: Agrber: Cath Placed During This Visit: yes, but has since been removed by the nurse Reason for Continuing Indwelling Catheter: Accurate Measurement of Urinary Output in Critically Ill Patients Urinary Catheter Date of Insertion: 12/24/23 Urinary Catheter Time of Insertion: 10:00 Date Urinary Catheter Removed: 12/20/23 Time Urinary Catheter Discontinued: 19:31 TS Data Studies Completed and Pending Pending at discharge Category Date Time Status Anaerobic Culture Routine Lab 12/20/23 Results Anaerobic Culture Routine Lab 12/25/23 13:44 Uncollected Anaerobic Culture Routine Lab 12/25/23 14:52 Uncollected Anaerobic Culture Routine Lab 12/25/23 15:00 Results Type and Screen Routine Lab 12/24/23 12:59 Uncollected Completed Studies During Hospitalization Category Date Time Status CT abdomen pelvis wo con [id number] Routine Cat Scan 12/17/23 21:[address] cervical spin wo con* [id number] Stat Cat Scan 12/16/23 15:[address] head wo con* [id number] Stat Cat Scan 12/16/23 15:[address] lower leg LT wo con* [id number] Routine Cat Scan 12/17/23 21:56 Completed CXRP [XR chest 1V portable [id number]] Routine Exams 12/17/23 08:06 Completed XR chest 1V portable [id number] Routine Exams 12/17/23 Completed XR chest 1V portable [id number] Stat Exams 12/16/23 15:20 Completed XR foot LT min 3V* [id number] Routine Exams 12/30/23 12:20 Completed Blood Cultures ([facility]) Routine Lab 12/16/23 17:06 Completed Blood Cultures ([facility]) Routine Lab 12/16/23 17:06 Completed MR hip LT wo con* [id number] Urgent MRI 12/22/23 11:14 Completed US guide FNA [id number] Routine Ultrasound 12/20/23 11:35 Completed US soft tissue and or extremity [US soft tissue/ Ultrasound 12/20/23 07:00 Completed extremity [id number]] Routine US soft tissue/extremity [id number] Routine Ultrasound 12/18/23 19:36 Completed Laboratory Last Values WBC 7.60 10^3/uL (3.29-11.43) 01/01/24 04:32 Corrected WBC Cancelled 12/18/23 04:12 RBC 3.71 10^6/uL (3.85-5.65) L 01/01/24 04:32 Hgb 10.80 g/dL (11.27-16.99) L 01/01/24 04:32 Hct 35.0 % (36-47) L 01/01/24 04:32 MCV 94.3 fl (85-98) 01/01/24 04:32 MCH 29.1 pg (27-33) 01/01/24 04:32 MCHC 30.9 g/dL (30-55) 01/01/24 04:32 RDW 20.6 % (12.1-15.1) H 01/01/24 04:32 Plt Count 424 10^3/cmm (157-399) H 01/01/24 04:32 MPV 9.0 fL (7.4-10.4) 01/01/24 04:32 Gran % Cancelled 12/18/23 04:12 Neut % (Auto) 69.0 % 01/01/24 04:32 Lymph % (Auto) 13.6 % 01/01/24 04:32 [place] % (Auto) 9.2 % 01/01/24 04:32 Eos % (Auto) 7.0 % 01/01/24 04:32 Baso % (Auto) 0.9 % 01/01/24 04:32 Neut # (Auto) 5.25 10^3/uL (1.8-7.7) 01/01/24 04:32 Lymph # (Auto) 1.0 10^3/uL (0.8-4.8) 01/01/24 04:32 [place] # (Auto) 0.7 10^3/uL (0.2-0.9) 01/01/24 04:32 Eos # (Auto) 0.5 10^3/uL (0.0-0.8) 01/01/24 04:32 Baso # (Auto) 0.1 10^3/uL (0.0-0.1) 01/01/24 04:32 Absolute Gran (auto) Cancelled 12/18/23 04:12 Nucleated RBC % (auto) 0 % 01/01/24 04:32 Total Counted 100 (0-100) 12/25/23 16:17 Atypical Lymphs % 2.0 % (0-5) 12/25/23 16:17 Absolute Neutrophils 23.6 10^3/cmm (1.4-6.5) H 12/25/23 16:17 Segmented Neutrophils 90 % 12/25/23 16:17 Abs Segm Neuts (Man) 23.6 10/cmm (1.6-7.1) H 12/25/23 16:17 Band Neutrophils 0.0 % 12/25/23 16:17 Abs Band Neuts (Man) 0.0 10^3/cmm (0.0-1.2) 12/25/23 16:17 Absolute Lymphocytes 1.6 10^3/cmm (1.2-3.4) 12/25/23 16:17 Lymphocytes (Manual) 4 % 12/25/23 16:17 Monocytes (Manual) 1.0 % 12/25/23 16:17 Absolute Monocytes 0.3 10^3/cmm (0.1-0.6) 12/25/23 16:17 Eosinophils (Manual) 2 % 12/25/23 16:17 Absolute Eosinophils 0.5 10^3/cmm (0.0-0.7) 12/25/23 16:17 Basophils (Manual) 1.0 % 12/25/23 16:17 Absolute Basophils 0.3 10^3/cmm (0.0-0.2) H 12/25/23 16:17 Metamyelocytes 2.0 % 12/16/23 14:44 Myelocytes 1.0 % 12/16/23 14:44 Nucleated RBCs # 0.0 /100WBC 01/01/24 04:32 Differential Comment Yes 12/20/23 Unknown Platelet Estimate Increased (Normal) H 12/25/23 16:17 Polychromasia 1+ H 12/25/23 16:17 Hypochromasia 1+ H 12/25/23 16:17 Poikilocytosis 1+ H 12/25/23 16:17 Anisocytosis 2+ H 12/25/23 16:17 Macrocytosis Trace 12/25/23 16:17 ESR 125 mm/hr (0-15) H 12/16/23 14:44 APTT 47.6 SECONDS (23.9-36.7) H 12/17/23 22:00 Specimen Type Arterial 12/20/23 02:07 Sample Site Radial, right 12/20/23 02:07 ABG pH 7.42 (7.35-7.45) 12/20/23 02:07 ABG pCO2 25.8 mmHg (35-45) L 12/20/23 02:07 ABG pO2 68.4 mmHg (80.0-100.0) L 12/20/23 02:07 ABG HCO3 16.8 mmol/L (22-26) L 12/20/23 02:07 ABG Base Excess -6.7 mmol/L (-2.0-2.0) L 12/20/23 02:07 Abdoulaye Test Pos 12/20/23 02:07 Hematocrit 24.5 % (37-47) L 12/20/23 02:07 O2 Delivery Device Room air 12/20/23 02:07 Operating Room Rn ID [id number] 12/20/23 02:07 Sodium 144 mmol/L (136-145) 01/01/24 04:32 Potassium 4.0 mmol/L (3.5-5.1) 01/01/24 04:32 Chloride 104 mmol/L (98-107) 01/01/24 04:32 Carbon Dioxide 30 mmol/L (22-29) H 01/01/24 04:32 Anion Gap 14.0 (5-19) 01/01/24 04:32 BUN 13 mg/dL (8-23) 01/01/24 04:32 Creatinine 0.3 mg/dL (0.5-0.9) L 01/01/24 04:32 GFR Calculation 224.7 mL/min (90-130) H 01/01/24 04:32 Glucose 134 mg/dL (65-115) H 01/01/24 04:32 POC Glucose 112 mg/dL (70-110) H 01/01/24 08:14 Estimat Average Glucose 160 12/16/23 14:44 Hemoglobin A1c 7.2 % (4.0-6.0) H 12/16/23 14:44 Calculated Osmolality 300 mOsm/kg (285-295) H 01/01/24 04:32 Lactic Acid 2.0 mmol/L (0.5-2.2) 12/16/23 21:34 Calcium 8.2 mg/dL (8.5-10.5) L 01/01/24 04:32 Phosphorus 3.9 mg/dL (2.5-4.5) 12/17/23 07:00 Magnesium 1.4 mg/dL (1.7-2.3) L 12/31/23 04:19 Total Bilirubin 0.3 mg/dL (0.15-1.2) 01/01/24 04:32 AST 7 U/L (0-32) 01/01/24 04:32 ALT < 5 U/L (0-33) 01/01/24 04:32 Alkaline Phosphatase 127 U/L (35-105) H 01/01/24 04:32 Ammonia 27 umol/L (11-51) 12/17/23 00:57 Creatine Kinase 74 U/L (26-192) 12/16/23 22:36 Troponin T Baseline 39 ng/L (0-10) H 12/16/23 22:36 Troponin T 120 Minute 37.11 ng/L (0-10) H 12/17/23 00:57 Delta Troponin T -1.89 ABS# (0-10) L 12/17/23 00:57 Troponin T Hi Sens 6Hr 32.50 ng/L (0-10) H 12/17/23 05:30 Troponin T Hi Sens 6Hr Delta -6.50 ng/L (0-12) L 12/17/23 05:30 C-Reactive Protein 289.5 mg/L (0.0-4.9) H 12/16/23 19:19 NT-Pro-B Natriuret Pep 4626 pg/mL (0-125) H 12/16/23 22:36 Total Protein 6.5 g/dL (6.6-8.7) L 01/01/24 04:32 Albumin 3.4 g/dL (3.5-5.2) L 01/01/24 04:32 Globulin 3.1 g/dL (1.3-4.6) 01/01/24 04:32 Triglycerides 260 mg/dL (0-150) H 12/16/23 22:36 Cholesterol 110 mg/dL (0-200) 12/16/23 22:36 LDL Cholesterol, Calc 45 mg/dL (50-129) L 12/16/23 22:36 HDL Cholesterol 13 mg/dL (60-100) L 12/16/23 22:36 LDL/HDL Ratio 3.46 RATIO (0.00-3.22) H 12/16/23 22:36 Cholesterol/HDL Ratio 8.46 mg/dL (0.0-4.40) H 12/16/23 22:36 Procalcitonin 11.06 ng/mL (0-0.5) H 12/16/23 19:19 TSH 5.41 uIU/mL (0.27-4.20) H 12/16/23 22:36 Urine Color Batsheva (Yellow) 12/16/23 18:01 Urine Appearance Cloudy (CLEAR) A 12/16/23 18:01 Urine pH 5 (5-7) 12/16/23 18:01 Ur Specific [place] 1.015 (1.005-1.030) 12/16/23 18:01 Urine Protein 1+ (Negative) H 12/16/23 18:01 Urine Glucose (UA) Norm (Normal) 12/16/23 18:01 Urine Ketones 1+ (Negative) H 12/16/23 18:01 Urine Blood 2+ (Negative) H 12/16/23 18:01 Urine Nitrate Negative (Negative) 12/16/23 18:01 Urine Bilirubin 1+ (Negative) H 12/16/23 18:01 Urine Urobilinogen 1 mg/dL (Negative) H 12/16/23 18:01 Ur Leukocyte Esterase 2+ (Negative) H 12/16/23 18:01 Urine RBC 10-15 /hpf (0-2) H 12/16/23 18:01 Urine WBC 40-55 /hpf (0-5) H 12/16/23 18:01 Ur Squamous Epith Cells 0-4 /hpf (0-5) H 12/16/23 18:01 Amorphous Sediment Not Reportable 12/16/23 18:01 Urine Bacteria 4+ /hpf (NONE) H 12/16/23 18:01 Fluid Color Red 12/20/23 Unknown Fluid Appearance Bloody 12/20/23 Unknown Fluid WBC [id number] /uL 12/20/23 Unknown Fluid RBC 245.000 10^3/uL 12/20/23 Unknown Fld Polynuclear WBCs # 184.782 12/20/23 Unknown Fld Polynuclear WBCs % 95.800 % 12/20/23 Unknown Fl Mononucl WBCs #(Auto) 8.112 12/20/23 Unknown Fl Mononuclear % Auto 4.200 % 12/20/23 Unknown Fld Crystal Laterality Right hip hematoma 12/20/23 Unknown Vancomycin Trough 11.7 ug/mL (10-15) 12/26/23 21:46 Urine Opiates Screen Negative ng/mL (Negative) 12/17/23 04:00 Ur Barbiturates Screen Negative ng/mL (Negative) 12/17/23 04:00 Ur Phencyclidine Scrn Negative ng/mL (Negative) 12/17/23 04:00 Ur Amphetamines Screen Positive ng/mL (Negative) H 12/17/23 04:00 U Benzodiazepines Scrn Positive ng/mL (Negative) H 12/17/23 04:00 Urine Cocaine Screen Negative ng/mL (Negative) 12/17/23 04:00 U Marijuana (THC) Screen Negative ng/mL (Negative) 12/17/23 04:00 Ethyl Alcohol < 10 mg/dL (0-10) 12/17/23 00:57 MRSA (PCR) Detected (NOT DETECTED) A 12/17/23 11:04 Blood Type B Negative 12/24/23 11:07 Rho(D) Type Negative 12/24/23 11:07 Antibody Screen Negative 12/24/23 11:07 Crossmatch See Detail 12/24/23 11:07 Radiology Impressions Cervical Spine CT 12/16/23 15:20 IMPRESSION: Stable exam with no evidence of acute traumatic injury. Features of prior decompression and fusion and other minor findings are again seen as detailed above. Head CT 12/16/23 15:20 IMPRESSION: No acute traumatic pathology. Hip MRI 12/22/23 11:14 IMPRESSION: 1. Left lateral hip collection extending into the anterior thigh with internal fat signal suggestive of Ortega Romi lesion. Superimposed infection is not totally excluded. 2. 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 3. Moderate to severe atrophy of the left gluteus, left hamstring and left quadriceps muscles. Strain of the adductor muscles. Foot X-Ray 12/30/23 12:20 IMPRESSION: 1. No obvious acute finding, but quite limited examination. 2. Additional details as above. Recent Clincial Data Last Vital Signs Temp 98.3 F 01/01/24 03:28 Pulse 89 01/01/24 07:09 Resp 15 01/01/24 07:09 BP 179/91 01/01/24 08:27 Pulse Ox 91 01/01/24 07:09 O2 Del Method Room Air 12/31/23 20:00 O2 Flow Rate 2 12/29/23 06:00 Vital Signs Temp Pulse Resp BP Pulse Ox 01/01/24 08:27 179/91 01/01/24 07:09 89 15 179/79 91 01/01/24 06:29 18 92 01/01/24 06:00 85 01/01/24 03:28 98.3 F 83 15 164/87 91 01/01/24 00:40 94 16 149/83 89 L 12/31/23 23:09 24 H 91 12/31/23 22:00 105 H Intake & Output/Weight 12/30/23 12/31/23 01/01/24 01/02/24 06:59 06:59 06:59 06:59 Intake Total 2710 / 2710 1989 / 1989 1550 / 1550 Output Total 3725 / 3725 4470 / 4470 4070 / 4070 Balance -1015 / -1015 -2480 / -2480 -2520 / -2520 Weight 79.832 kg 79.2 kg 81.76 kg Vitals Last Vital Signs Temp 98.3 F 01/01/24 03:28 Pulse 89 01/01/24 07:09 Resp 15 01/01/24 07:09 BP 179/91 01/01/24 08:27 Pulse Ox 91 01/01/24 07:09 O2 Del Method Room Air 12/31/23 20:00 O2 Flow Rate 2 12/29/23 06:00 TS Medications Medications Acetaminophen (Acetaminophen 325 Mg Tablet) 650 mg PO Q6H PRN PRN Reason: Mild/Mod Pain Or Temp >/= 101 Last Admin: 12/31/23 06:13 Dose: 650 mg Hydrocodone Bitart/Acetaminophen (Hydrocodone-Acetaminophen 5-325 Mg Tablet) 1 tab PO Q6H PRN PRN Reason: MODERATE PAIN Last Admin: 01/01/24 01:59 Dose: 1 tab Amlodipine Besylate (Amlodipine 5 Mg Tablet) 5 mg PO DAILY [facility] Last Admin: 01/01/24 08:27 Dose: 5 mg Gabapentin (Gabapentin 300 Mg Capsule) 300 mg PO TID [facility] Last Admin: 01/01/24 08:27 Dose: 300 mg Hydromorphone HCl (Hydromorphone 1 Mg/Ml Inj 1 Ml) 0.2 mg IVP Q6H PRN PRN Reason: pain Last Admin: 01/01/24 06:29 Dose: 0.2 mg Dextrose (D5w) 500 mls @ 0 mls/hr IV ONCE PRN; Protocol PRN Reason: Adult Acute Hypoglycemia Prot Vancomycin/PEG/NADA/Lysine/Water (Vancocin) 1,250 mg in 250 mls @ 250 mls/hr IV Q24H [facility] Stop: 01/06/24 23:59 Last Infusion: 01/01/24 01:57 Dose: Infused Dextrose (D10w) 125 mls @ 750 mls/hr IV PRN PRN; Protocol PRN Reason: Adult Acute Hypoglycemia Nursing Protocol Dextrose (D10w) 250 mls @ 1,000 mls/hr IV PRN PRN; Protocol PRN Reason: Adult Acute Hypoglycemia Nursing Protocol Insulin Glargine (Insulin Glargine 100 Units/1 Ml) 5 unit SUBCUT DAILY [facility] Last Admin: 12/29/23 09:19 Dose: 5 unit Insulin Human Lispro (Insulin Lispro 100 Unit/1 Ml) 0 unit SUBCUT WM&BEDTIME [facility]; Protocol Last Admin: 01/01/24 08:28 Dose: Not Given Losartan Potassium (Losartan 50 Mg Tablet) 25 mg PO DAILY [facility] Last Admin: 01/01/24 08:27 Dose: 25 mg Metoprolol Tartrate (Metoprolol Tartrate 25 Mg Tablet) 25 mg PO BID@0900,2100 [facility] Last Admin: 01/01/24 08:27 Dose: 25 mg Non-Formulary Medication (Fenofibrate Micronized) 200 mg PO BEDTIME [facility] Last Admin: 12/31/23 21:25 Dose: Not Given Ondansetron HCl (Ondansetron 2 Mg/Ml Sdv 2 Ml) 4 mg IVP Q8H PRN PRN Reason: vomiting, or N/V if npo Last Admin: 12/27/23 08:32 Dose: 4 mg Pantoprazole Sodium (Pantoprazole 40 Mg Sdv) 40 mg IVP Q24H [facility] Last Admin: 12/31/23 21:25 Dose: 40 mg Venlafaxine HCl (Venlafaxine Er (24hr) 150 Mg Capsule) 150 mg PO QAM [facility] Last Admin: 01/01/24 06:29 Dose: 150 mg Discontinued Medications Albuterol Sulfate (Albuterol 2.5 Mg/3 Ml Neb) 2.5 mg INHALATION ONCE PRN PRN Reason: WHEEZING Dextrose (Dextrose 50% Syringe 50 Ml) 25 ml IVP ONCE PRN; Protocol PRN Reason: hypoglycemia protocol Dextrose (Dextrose 50% Syringe 50 Ml) 50 ml IVP PRN PRN; Protocol PRN Reason: hypoglycemia protocol Dextrose (Dextrose 50% Syringe 50 Ml) 50 ml IVP ONCE ONE Stop: 12/16/23 22:26 Last Admin: 12/16/23 23:31 Dose: 50 ml Diazepam (Diazepam 5 Mg Tablet) 5 mg PO DAILY PRN PRN Reason: anxiety Last Admin: 12/31/23 16:54 Dose: 5 mg Famotidine (Famotidine 20 Mg/2 Ml Inj) 20 mg IVP ONCE PRN PRN Reason: HEARTBURN Fentanyl (Fentanyl 50 Mcg/Ml Inj 2ml) 50 mcg IVP Q10M PRN PRN Reason: Preop Pain Fentanyl (Fentanyl 50 Mcg/Ml Inj 2ml) 100 mcg IVP ONCE PRN PRN Reason: Per anesthesia for block Fentanyl (Fentanyl 50 Mcg/Ml Inj 2ml) Confirm Administered Dose 100 mcg .ROUTE .STK-MED ONE Stop: 12/25/23 12:30 Fentanyl (Fentanyl 50 Mcg/Ml Inj 2ml) Confirm Administered Dose 100 mcg .ROUTE .STK-MED ONE Stop: 12/25/23 16:07 Last Admin: 12/25/23 19:34 Dose: Not Given Fentanyl (Fentanyl 50 Mcg/Ml Inj 2ml) Confirm Administered Dose 100 mcg .ROUTE .STK-MED ONE Stop: 12/27/23 12:07 Gabapentin (Gabapentin 300 Mg Capsule) 300 mg PO TID [facility] Last Admin: 12/27/23 17:55 Dose: Not Given Gabapentin (Gabapentin 300 Mg Capsule) 300 mg PO ONCE ONE Stop: 12/27/23 16:10 Last Admin: 12/27/23 17:55 Dose: Not Given Heparin Sodium (Porcine) (Heparin 5,000 Unit/Ml Inj 1 Ml) 0 unit IV PRN PRN; Protocol PRN Reason: Heparin weight-base protocol Heparin Sodium (Porcine) (Heparin 5,000 Unit/Ml Inj 1 Ml) 0 unit IV PRN PRN; Protocol PRN Reason: Heparin weight-base protocol Hydralazine HCl (Hydralazine 20 Mg/Ml Inj 1 Ml) 10 mg IVP ONCE ONE Stop: 12/30/23 01:20 Last Admin: 12/30/23 01:29 Dose: 10 mg Hydromorphone HCl (Hydromorphone 1 Mg/Ml Inj 1 Ml) 0.4 mg IVP Q4H PRN PRN Reason: SEVERE PAIN Last Admin: 12/25/23 08:52 Dose: 0.4 mg Hydromorphone HCl (Hydromorphone 1 Mg/Ml Inj 1 Ml) 1 mg IVP Q6H PRN PRN Reason: PAIN Last Admin: 12/26/23 02:13 Dose: 1 mg Hydromorphone HCl (Hydromorphone 1 Mg/Ml Inj 1 Ml) 0.5 mg IVP ONCE ONE Stop: 12/31/23 12:54 Last Admin: 12/31/23 13:47 Dose: 0.5 mg Sodium Chloride (Sodium Chloride 0.9%) 1,000 mls @ 999 mls/hr IV .Q1H1M [facility] Stop: 12/16/23 19:15 Last Infusion: 12/16/23 21:33 Dose: Infused Piperacillin Sod/Tazobactam (Sod 3.375 gm/ Sodium Chloride) 50 mls @ 100 mls/hr IV ONCE ONE; Protocol Stop: 12/16/23 21:35 Last Infusion: 12/17/23 01:09 Dose: Infused Albumin Human (Albumin) 25 g in 100 mls @ 60 mls/hr IV Q8H [facility] Last Admin: 12/19/23 09:51 Dose: Not Given Vancomycin HCl / Sodium (Chloride) 250 mls @ 0 mls/hr [id number] PROTOCOL RANJIT; Protocol Piperacillin Sod/Tazobactam (Sod / Sodium Chloride) 50 mls @ 0 mls/hr [id number] CONT RANJIT; Protocol Heparin Sodium/Sodium Chloride (Heparin Drip) 25,000 unit in 500 mls @ 0 mls/hr IV .Q0M RANJIT; Protocol Last Titration: 12/19/23 07:28 Dose: Infused Sodium Chloride (Sodium Chloride 0.9%) 1,000 mls @ 30 mls/hr IV .Q24H [facility] Last Infusion: 12/19/23 19:49 Dose: Infused Insulin Human Regular 10 unit/ (N/A) 0.1 mls @ 0 mls/hr IVP ONCE ONE Stop: 12/16/23 22:26 Last Infusion: 12/17/23 00:01 Dose: Infused norepinephrine (Levophed) 4 mg in 250 mls @ 0 mls/hr IV .Q0M RANJIT; Protocol Last Titration: 12/19/23 07:27 Dose: Infused Vancomycin/PEG/NA[place]/Lysine/Water (Vancocin) 1,500 mg in 300 mls @ 200 mls/hr IV ONCE ONE Stop: 12/17/23 00:44 Last Infusion: 12/17/23 02:40 Dose: Infused Piperacillin Sod/Tazobactam (Sod 3.375 gm/ Sodium Chloride) 50 mls @ 12.5 mls/hr IV Q8H [facility] Last Infusion: 12/22/23 08:37 Dose: Infused Magnesium Sulfate (Magnesium Sulfate Premix) 2 gm in 50 mls @ 50 mls/hr IV ONCE ONE Stop: 12/18/23 10:11 Last Infusion: 12/18/23 19:32 Dose: Infused Albumin Human (Albumin) 25 g in 100 mls @ 60 mls/hr IV Q12H [facility] Albumin Human (Albumin) 25 gm in 100 mls @ 60 mls/hr IV Q12H [facility] Last Infusion: 12/20/23 09:36 Dose: Infused Lidocaine HCl 5 ml/ Potassium (Chloride) 105 mls @ 26.25 mls/hr IV ONCE ONE Stop: 12/19/23 14:39 Last Infusion: 12/19/23 19:49 Dose: Infused Dextrose (D5w) 1,000 mls @ 30 mls/hr IV .Q24H [facility] Last Infusion: 12/22/23 23:43 Dose: Infused Lidocaine HCl 5 ml/ Potassium (Chloride) 105 mls @ 26.25 mls/hr IV ONCE ONE Stop: 12/21/23 14:01 Last Infusion: 12/21/23 20:12 Dose: Infused Piperacillin Sod/Tazobactam (Sod 3.375 gm/ Dextrose) 50 mls @ 12.5 mls/hr IV Q8H [facility] Last Infusion: 12/21/23 20:11 Dose: Infused Piperacillin Sod/Tazobactam (Sod 3.375 gm/ Sodium Chloride) 50 mls @ 12.5 mls/hr IV Q8H [facility] Last Admin: 12/23/23 14:48 Dose: Not Given Magnesium Sulfate (Magnesium Sulfate Premix) 2 gm in 50 mls @ 50 mls/hr IV ONCE ONE Stop: 12/22/23 11:24 Last Infusion: 12/22/23 11:35 Dose: Infused Piperacillin Sod/Tazobactam (Sod 3.375 gm/ Sodium Chloride) 50 mls @ 12.5 mls/hr IV Q8H [facility] Last Infusion: 12/27/23 10:27 Dose: Infused Heparin Sodium/Sodium Chloride (Heparin Drip) 25,000 unit in 500 mls @ 0 mls/hr IV .Q0M [facility]; Protocol Cefazolin Sodium 2,000 mg/ (Sodium Chloride) 50 mls @ 100 mls/hr IV [employer]; Protocol Stop: 12/24/23 13:26 Last Infusion: 12/25/23 13:48 Dose: Infused Tranexamic Acid (Tranexamic Acid) 1,000 mg in 100 mls @ 600 mls/hr IV ONCE ONE Stop: 12/24/23 13:06 Last Admin: 12/24/23 13:24 Dose: Not Given Tranexamic Acid (Tranexamic Acid) 1,000 mg in 100 mls @ 600 mls/hr IV ONCE ONE Stop: 12/24/23 21:09 Last Admin: 12/24/23 20:02 Dose: Not Given Iron Sucrose 200 mg/ Sodium (Chloride) 110 mls @ 220 mls/hr IV Q24H [facility] Stop: 12/29/23 18:33 Last Infusion: 12/29/23 18:29 Dose: Infused Sodium Chloride (Sodium Chloride 0.9%) Confirm Administered Dose 1,000 mls @ as directed .ROUTE .[facility] Stop: 12/25/23 11:51 Cefazolin Sodium 2,000 mg/ (Sodium Chloride) 50 mls @ 100 mls/hr IV [employer] ONE; Protocol Stop: 12/25/23 12:26 Acetaminophen (Acetaminophen) 1,000 mg in 100 mls @ 400 mls/hr IV ONCE ONE Stop: 12/25/23 12:11 Last Admin: 12/25/23 13:24 Dose: 400 mls/hr Sodium Chloride (Sodium Chloride 0.9%) 1,000 mls @ 30 mls/hr IV .Q24H [facility] Stop: 12/26/23 11:59 Last Admin: 12/25/23 12:41 Dose: 30 mls/hr Sodium Chloride (Sodium Chloride 0.9%) Confirm Administered Dose 1,000 mls @ as directed .ROUTE .[facility] ONE Stop: 12/25/23 16:14 Last Admin: 12/25/23 19:35 Dose: Not Given Albumin Human (Albumin) 25 g in 100 mls @ 60 mls/hr IV Q8H [facility] Last Infusion: 12/27/23 10:27 Dose: Infused Sodium Chloride (Sodium Chloride 0.9%) 1,000 mls @ 75 mls/hr IV .[id number] [facility] Last Infusion: 12/27/23 09:06 Dose: Infused Calcium Gluconate/Sodium Chloride (Calcium Gluconate 0.9% Nacl) 1 gm in 50 mls @ 50 mls/hr IV ONCE ONE Stop: 12/27/23 10:20 Last Infusion: 12/27/23 13:09 Dose: Infused Sodium Chloride (Sodium Chloride 0.9% (100 Ml)) Confirm Administered Dose 100 mls @ as directed .ROUTE .[facility] ONE Stop: 12/27/23 10:55 Last Infusion: 12/28/23 07:08 Dose: Infused Piperacillin Sod/Tazobactam (Sod 3.375 gm/ Sodium Chloride) 50 mls @ 12.5 mls/hr IV ONCE ONE; Protocol Stop: 12/27/23 20:07 Last Infusion: 12/28/23 07:08 Dose: Infused Piperacillin Sod/Tazobactam (Sod 3.375 gm/ Sodium Chloride) 50 mls @ 12.5 mls/hr IV Q8H [facility] Last Infusion: 12/29/23 08:04 Dose: Infused Albumin Human (Albumin) 25 g in 100 mls @ 60 mls/hr IV Q8H [facility] Last Infusion: 12/29/23 11:29 Dose: Infused Magnesium Sulfate (Magnesium Sulfate Premix) 4 gm in 100 mls @ 50 mls/hr IV ONCE ONE Stop: 12/31/23 10:59 Last Infusion: 12/31/23 11:20 Dose: Infused Insulin Human Lispro (Insulin Lispro 100 Unit/1 Ml) 0 unit SUBCUT TIDWM [facility]; Protocol Last Admin: 12/20/23 13:17 Dose: 8 unit Insulin Human Regular (Insulin Regular-Human 100 Units/1 Ml) Confirm Administered Dose 1 unit .ROUTE .[facility] ONE Stop: 12/16/23 23:18 Ipratropium Red[place] (Ipratropium 0.5 Mg/2.5 Ml Neb) 0.5 mg INHALATION ONCE PRN PRN Reason: WHEEZING Ketorolac Tromethamine (Ketorolac 30 Mg/Ml Inj) 30 mg IVP ONCE ONE Stop: 12/25/23 11:58 Last Admin: 12/25/23 13:23 Dose: 30 mg Lidocaine HCl (Lidocaine 1% Inj 10 Ml (Per Ml)) 0.1 ml INTRADERMA PRN PRN PRN Reason: anesthetic prior to IV start Metoclopramide HCl (Metoclopramide 5 Mg/Ml Sdv 2 Ml) 5 mg IVP Q6H PRN PRN Reason: NAUSEA AND VOMITING Metoclopramide HCl (Metoclopramide 5 Mg/Ml Sdv 2 Ml) 10 mg IVP ONCE PRN PRN Reason: N/V if zofran ineffective Midazolam HCl (Midazolam 1 Mg/Ml Inj 2 Ml) 2 mg IVP Q5M PRN PRN Reason: Preop Anxiety Midazolam HCl (Midazolam 1 Mg/Ml Inj 5 Ml) 5 mg IVP ONCE PRN PRN Reason: Per anesthesia for block Morphine Sulfate (Morphine 4 Mg/Ml Sdv 1 Ml) 1 mg IVP Q4H PRN PRN Reason: SEVERE PAIN Last Admin: 12/20/23 20:37 Dose: 1 mg Ondansetron HCl (Ondansetron 2 Mg/Ml Sdv 2 Ml) 4 mg IVP Q5M PRN PRN Reason: NAUSEA AND VOMITING Ondansetron HCl (Ondansetron 2 Mg/Ml Sdv 2 Ml) Confirm Administered Dose 4 mg .ROUTE .STK-[facility] ONE Stop: 12/25/23 12:30 Phenylephrine HCl (Phenylephrine 10 Mg/Ml Sdv 1 Ml) Confirm Administered Dose 10 mg .ROUTE .STK-MED ONE Stop: 12/25/23 14:42 Phenylephrine HCl (Phenylephrine 10 Mg/Ml Sdv 1 Ml) Confirm Administered Dose 10 mg .ROUTE .STK-MED ONE Stop: 12/25/23 15:52 Potassium Chloride (Potassium Chloride Er 20 Meq Tablet) 80 meq PO ONCE ONE Stop: 12/24/23 14:07 Last Admin: 12/24/23 14:59 Dose: 80 meq Potassium Chloride (Potassium Chloride Er 20 Meq Tablet) 40 meq PO ONCE ONE Stop: 12/27/23 05:41 Last Admin: 12/27/23 05:35 Dose: 40 meq Potassium Chloride (Potassium Chloride Er 20 Meq Tablet) 40 meq PO ONCE ONE Stop: 12/27/23 08:24 Last Admin: 12/27/23 08:40 Dose: 40 meq Potassium Chloride (Potassium Chloride Er 20 Meq Tablet) 40 meq PO ONCE ONE Stop: 12/29/23 10:15 Last Admin: 12/29/23 11:05 Dose: 40 meq Propofol (Propofol 10 Mg/Ml Sdv 20 Ml) Confirm Administered Dose 200 mg .ROUTE .STK-MED ONE Stop: 12/25/23 12:30 Propofol (Propofol 10 Mg/Ml Sdv 20 Ml) Confirm Administered Dose 200 mg .ROUTE .STK-MED ONE Stop: 12/27/23 12:06 Rocuronium Redgranite (Rocuronium 10 Mg/Ml Inj 5ml) Confirm Administered Dose 50 mg .ROUTE .STK-MED ONE Stop: 12/25/23 12:30 Scopolamine (Scopolamine 1.5 Patch) 1 patch TRANSDERMA ONCE ONE Stop: 12/25/23 11:58 Last Admin: 12/25/23 13:23 Dose: 1 patch Scopolamine (Scopolamine 1.5 Patch) 1 patch TRANSDERMA ONCE PRN PRN Reason: Nausea/ Vomiting Prophylaxis Sodium Chloride (Sodium Chloride 0.9% 100 Ml Bag) 50 ml IV PRN PRN PRN Reason: Blood transfusion prime and flush Stop: 12/19/23 10:01 Sodium Chloride (Sodium Chloride 0.9% 100 Ml Bag) 50 ml IV PRN PRN PRN Reason: Blood transfusion prime and flush Stop: 12/26/23 16:12 Sodium Chloride (Sodium Chloride 0.9% 100 Ml Bag) 50 ml IV PRN PRN PRN Reason: Blood transfusion prime and flush Stop: 12/26/23 18:24 Sodium Chloride (Sodium Chloride 0.9% 100 Ml Bag) 50 ml IV PRN PRN PRN Reason: Blood transfusion prime and flush Stop: 12/27/23 06:11 Last Admin: 12/27/23 05:16 Dose: 50 ml Sodium Chloride (Sodium Chloride 0.9% 100 Ml Bag) 50 ml IV PRN PRN PRN Reason: Blood transfusion prime and flush Stop: 12/27/23 06:30 Sodium Chloride (Sodium Chloride 0.9% 100 Ml Bag) 50 ml IV PRN PRN PRN Reason: Blood transfusion prime and flush Stop: 12/28/23 05:06 Sodium Chloride (Sodium Chloride 0.9% 100 Ml Bag) 50 ml IV PRN PRN PRN Reason: Blood transfusion prime and flush Stop: 12/28/23 09:58 Sugammadex Sodium (Sugammadex 200 Mg/2 Ml Sdv) Confirm Administered Dose 200 mg .ROUTE .STK-MED ONE Stop: 12/27/23 14:21 Vancomycin HCl (Vancomycin 1,000 Mg Sdv) Confirm Administered Dose 1,000 mg .ROUTE .STK-MED ONE Stop: 12/25/23 12:53 Vancomycin HCl (Vancomycin 1,000 Mg Sdv) 1,000 mg XX ONCE ONE; Protocol Stop: 12/25/23 13:14 Last Admin: 12/25/23 15:00 Dose: 1,000 mg Vancomycin HCl (Vancomycin 1,000 Mg Sdv) Confirm Administered Dose 3,000 mg .ROUTE .STK-MED ONE Stop: 12/25/23 14:37 Vancomycin HCl (Vancomycin 1,000 Mg Sdv) 3,000 mg XX ONCE ONE; Protocol Stop: 12/25/23 15:01 Last Admin: 12/25/23 15:00 Dose: 3,000 mg Vancomycin HCl (Vancomycin 1,000 Mg Sdv) Confirm Administered Dose 1,000 mg .ROUTE .STK-MED ONE Stop: 12/27/23 11:04 Vancomycin HCl (Vancomycin 1,000 Mg Sdv) Confirm Administered Dose 1,000 mg .ROUTE .STK-MED ONE Stop: 12/27/23 13:19 Vancomycin HCl (Vancomycin 1,000 Mg Sdv) 2,000 mg IRRIGATION ONCE ONE; Protocol Stop: 12/27/23 13:38 Last Admin: 12/27/23 13:38 Dose: 2,000 mg Allergies nalbuphine Allergy (Unknown, Verified 10/07/23 09:01) sick to stomach adhesive tape Allergy (Verified 10/07/23 09:01) rash amitriptyline Allergy (Verified 10/07/23 09:01) Unknown pt states it makes her feel out of it morphine Allergy (Verified 12/25/23 11:52) ADR-Vomiting nitrofurantoin [From Macrobid] Allergy (Verified 10/07/23 09:01) ADR-Vomiting Sulfa (Sulfonamide Antibiotics) Allergy (Verified 10/07/23 09:01) Itch all over Home Medications Nubia Lift #1 ea 12/25/22 [Rx Confirmed 12/16/23] Hospital bed #1 ea 03/22/23 [Rx Confirmed 12/16/23] fenofibrate micronized 200 mg capsule 200 mg PO BEDTIME 06/11/23 [History Confirmed 12/16/23] pantoprazole 40 mg tablet,delayed release 40 mg PO BID 06/11/23 [History Confirmed 12/16/23] prochlorperazine maleate 10 mg tablet (Compazine) 10 mg PO BID PRN Nausea And Vomiting 06/11/23 [History Confirmed 12/16/23] albuterol sulfate 90 mcg/actuation aerosol inhaler 2 inh inhalation Q4H PRN shortness of breath or wheezing #18 grams 07/17/23 [Rx Confirmed 12/16/23] budesonide 0.5 mg/2 mL suspension for nebulization 0.5 mg inhalation BID PRN Shortness Of Breath 07/17/23 [History Confirmed 12/16/23] Power chair repair #1 ea 07/30/23 [Rx Confirmed 12/16/23] silver sulfadiazine 1 % topical cream (Silvadene) 1 applic topical BID #20 grams 09/09/23 [Rx Confirmed 12/16/23] ketoconazole 2 % shampoo See Rx Instructions .Route .COMPLEX #120 mL 09/18/23 [Rx Confirmed 12/16/23] furosemide 40 mg tablet 40 mg PO DAILY PRN Edema 10/26/23 [History Confirmed 12/16/23] potassium chloride 20 mEq tablet,extended release 20 meq PO DAILY PRN unknown 10/26/23 [History Confirmed 12/16/23] diazepam 5 mg tablet 5 mg PO QAM PRN anxiety #2 tabs 11/03/23 [Rx Confirmed 12/16/23] lactulose 10 gram oral packet 10 g PO DAILY encephalopathy #15 ea 11/03/23 [Rx Confirmed 12/16/23] apixaban 5 mg tablet (Eliquis) 5 mg PO BID@0900,2100 pulmonary embolism #60 tabs 11/15/23 [Rx Confirmed 12/16/23] venlafaxine 150 mg capsule,extended release 24 hr 150 mg PO QAM #90 caps 12/12/23 [Rx Confirmed 12/16/23] Methadone (Unknown Source) See Rx Instructions .Route .COMPLEX 12/16/23 [History Confirmed 12/16/23] atenolol 100 mg tablet 100 mg PO BID 12/16/23 [History Confirmed 12/16/23] gabapentin 300 mg capsule 300 mg PO TID 12/16/23 [History Confirmed 12/16/23] metformin 500 mg tablet,extended release 24 hr 500 mg PO DAILY 12/16/23 [History Confirmed 12/16/23] venlafaxine 75 mg capsule,extended release 24 hr 75 mg PO DAILY 12/16/23 [History Confirmed 12/16/23] Podus Boot to the Left #1 ea 12/30/23 [Rx] Discharge Plan Discharge Patient Disposition: Xfer Other Condition: Stable Prescriptions: No Action (DME) Nubia Lift See Rx Instructions .Route .MEDSUPPLY Qty: 1 0RF Rx Instructions: Please issue mechanical or electric lift for patient to use at home for transfers and mobility due to high risk of falls, R AKA, Charcot foot of the Left foot. silver sulfadiazine [Silvadene] 1 % cream 1 applic topical BID Qty: 20 0RF Rx Instructions: apply a 1.5 mm thickness (DME) Hospital bed See Rx Instructions .Route .MEDSUPPLY Qty: 1 0RF Rx Instructions: As directed (DME) Power chair repair See Rx Instructions .Route .MEDSUPPLY Qty: 1 0RF Rx Instructions: As directed ketoconazole 2 % shampoo See Rx Instructions .ROUTE .COMPLEX Qty: 120 0RF Dose Instruction: USE NEEDED TO SCALP Rx Instructions: USE NEEDED TO SCALP Eliquis 5 mg tablet 5 mg PO BID@0900,2100 Qty: 60 3RF venlafaxine 150 mg capsule,extended release 24hr 150 mg PO QAM Qty: 90 2RF (DME) Podus Boot to the Left See Rx Instructions .Route .MEDSUPPLY Qty: 1 0RF Rx Instructions: As directed Home prochlorperazine maleate [Compazine] 10 mg tablet 10 mg PO BID PRN (Reason: Nausea And Vomiting) fenofibrate micronized 200 mg capsule 200 mg PO BEDTIME pantoprazole 40 mg tablet,delayed release (DR/EC) 40 mg PO BID furosemide 40 mg tablet 40 mg PO DAILY PRN (Reason: Edema) potassium chloride 20 mEq tablet extended release 20 meq PO DAILY PRN (Reason: unknown) diazepam 5 mg tablet 5 mg PO QAM PRN (Reason: anxiety) Qty: 2 0RF Rx Instructions: Disregard the prescription as patient already has the medications at home lactulose 10 gram packet 10 g PO DAILY Qty: 15 0RF budesonide 0.5 mg/2 mL suspension for nebulization 0.5 mg inhalation BID PRN (Reason: Shortness Of Breath) albuterol sulfate 90 mcg/actuation HFA aerosol inhaler 2 inh INHALATION Q4H PRN (Reason: shortness of breath or wheezing) Qty: 18 0RF venlafaxine 75 mg capsule,extended release 24hr 75 mg PO DAILY atenolol 100 mg tablet 100 mg PO BID gabapentin 300 mg capsule 300 mg PO TID Methadone (Unknown Source) See Rx Instructions .ROUTE .COMPLEX Rx Instructions: DIRECTED- UNKNOWN SOURCE metformin 500 mg tablet extended release 24 hr 500 mg PO DAILY Referrals: Wilner Hdez DO [Primary Care Provider] - Patient Instructions: Altered Mental Status (ED) Activity Restrictions/Additional Instructions: Dr. Garrido wound care dressing recommendations. Wound care dressings to be determined by wound care clinic at her new facility moving forward, until that time I am recommending: Primary dressing: Hydrofera Blue at left heel and anterior lal. Secondary dressin x 4 gauze and Kerlix, secured by tape. Dressing change frequency: Every other day Offloading left heel wound with PODUS boot left lower extremity to be worn at all times. Left lower extremity to be kept clean and dry and avoid getting wet when bathing. 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
--- NOTE | 2024-01-01 08:51 | PC.NURSE ---
155 mL of output charted from the wound vac overnight. NOthing from the hemovac. Day shift nurse recorded another 25mL from the wound vac. Hemovac had 30mL emptied.
[2024-01-01] MEDS: HYDROmorphone 1 mg/mL INJ 1 mL 0.5 MG IVP (10:18)
[2024-01-01 11:59] LABS: Glucose Point of Care 152 mg/dL (70-110)
[2024-01-01 11:59] LABS: Glucose Point of Care 135 mg/dL (70-110)
--- NOTE | 2024-01-01 12:52 | PC.SOCIAL ---
IMM updated Updated pt on IMM. No questions voiced. Provided pt a copy. Initialed, dated, & timed copy in chart.
--- NOTE | 2024-01-01 13:34 | PC.NURSE ---
this nurse assumed care approximately 1230
--- NOTE | 2024-01-01 15:59 | PC.NURSE ---
Report called to [facility], room will be 121. Kenendy guillory ETA 1900 for transport
--- NOTE | 2024-01-01 15:59 | PC.NURSE ---
Dr. Hussein at bedside, hemovac removed
--- NOTE | 2024-01-01 17:44 | P.PN_ITS ---
Subjective 2 Subjective: Pt is post op left hip I & D. Patient seen and examined this afternoon. Hemovac drain has had under 30 cc out over the last shift this point in time plan to have this removed which was removed today. She is planning on discharging/transfered to LTAC facitily today.no other issues overnight. Deep drain with incisional VAC left in place and should be pulled this coming Saturday for 10 days postop and followed up with pressure dressings. Vitals/I&O/Wt Last Vital Signs Temp 98.3 F 01/01/24 03:28 Pulse 92 01/01/24 16:05 Resp 17 01/01/24 16:05 BP 152/81 01/01/24 16:05 Pulse Ox 91 01/01/24 16:05 O2 Del Method Room Air 01/01/24 10:24 O2 Flow Rate 2 12/29/23 06:00 01/01/24 01/01/24 01/01/24 06:59 14:59 22:59 Intake Total 250 / 1550 500 / 500 Output Total 1430 / 4070 305 / 305 Balance -1180 / -2520 195 / 195 Weight last 48 hrs Weight 180 lb 4 oz Weight 174 lb 9.698 oz Physical Exam 2 Const: COMMON NORMALS: no acute distress and alert Resp: COMMON NORMALS: normal respiratory effort and No retractions Cardio: COMMON NORMALS: Peripheral pulses 2+ throughout PERIPHERAL PULSES: Peripheral pulses 2+ throughout Extremity: NARRATIVE EXTREMITY EXAM: Left hip-wound vac dressing is on and inplace. Wound vac is working and no seal issues. bloody tinge drainage from wound vac-150 ml over last 12 hours. Hemovacc with a deep drain intact and has 30ml of bloody tinge serosanguineous drainage. No surrounding erythema or warmth around wound site. Neuro: SENSORIUM/ORIENTATION: Yes alert Skin: GENERAL SKIN EXAM: dry skin Urinary Catheter Management: Garber: Cath Placed During This Visit: yes, but has since been removed by the nurse Reason for Continuing Indwelling Catheter: Accurate Measurement of Urinary Output in Critically Ill Patients Urinary Catheter Date of Insertion: 12/24/23 Urinary Catheter Time of Insertion: 10:00 Date Urinary Catheter Removed: 12/20/23 Time Urinary Catheter Discontinued: 19:31 Data 01/01/24 04:32 01/01/24 04:32 Micro: Microbiology 12/20/23 Unknown Anaerobic Culture - Final Hip - Aspirate 12/25/23 15:00 Anaerobic Culture - Final Hip - #2 A&P Assessment and plan (1) Infected hematoma: (2) Hematoma and contusion: (3) Ankle wound: Qualifiers: Encounter type: initial encounter Laterality: left Qualified Code(s): S91.002A - Unspecified open wound, left ankle, initial encounter (4) Right above-knee amputee: Plan Plan: Medicine on board Chart reviewed Labs reviewed Imaging reviewed Pain control PT/OT antibiotics per medicine Hemovac drain pulled today, deep drain with incisional VAC left in place and should be removed on Saturday postop day 10 from patient's surgery. Transferring to LTAC today. Patient to follow-up in the office postop. Podiatry on board for left lower extremity wound evaluation and recommendations Attestations 2 Medical Necessity Statement*: Ongoing care left hip infected hematoma persistent drainage deep drain and incisional vacs in place for Coding Level of Care Code Acute Code for g Fwd Diagnoses Infected hematoma T14.8XXA; L08.9 Hematoma and contusion T14.8XXA Wound of left ankle, initial encounter S91.002A Encounter type: initial encounter Laterality: left Right above-knee amputee Z89.611 Time Spent (min) 35
[2024-01-01 18:10] LABS: Glucose Point of Care 202 mg/dL (70-110)
[2024-01-01] MEDS: insulin lispro 100 unit/1 mL SUBCUT (18:36)
[2024-01-01] MEDS: diazePAM 5 mg Tablet PO (19:34)
== END 2024-01-01 21:45 | disposition skilled nursing facility (03) | DRG 853 ==
LOC: ER 21:26 → ICU 21:37 → MEDSURG 12-19 00:19 → ICU 12-25 16:25
PROVIDERS: Anesthesiology; Internal Medicine; Student in an Organized Health Care Education/Training Program; Admitting Provider Family Medicine; Emergency Provider Internal Medicine; PCP Family Medicine; Visit Provider Internal Medicine
PROC: 0LBK0ZZ Excision of Left Hip Tendon, Open Approach (ICD-10-PCS; principal; 2023-12-25 16:40)
PROC: 0JBM0ZZ Excision of Left Upper Leg Subcutaneous Tissue and Fascia, Open Approach (ICD-10-PCS; principal; 2023-12-27 11:05)
DX: A40.8 Other streptococcal sepsis (principal); G93.41 Metabolic encephalopathy; R65.21 Severe sepsis with septic shock; N17.9 Acute kidney failure, unspecified; N30.01 Acute cystitis with hematuria; L03.116 Cellulitis of left lower limb; E87.20 Acidosis, unspecified; E87.0 Hyperosmolality and hypernatremia; L97.422 Non-pressure chronic ulcer of left heel and midfoot with fat layer exposed; L97.321 Non-pressure chronic ulcer of left ankle limited to breakdown of skin; L97.829 Non-pressure chronic ulcer of other part of left lower leg with unspecified severity; E87.1 Hypo-osmolality and hyponatremia; D62 Acute posthemorrhagic anemia; E11.52 Type 2 diabetes mellitus with diabetic peripheral angiopathy with gangrene; I96 Gangrene, not elsewhere classified; B96.1 Klebsiella pneumoniae [K. pneumoniae] as the cause of diseases classified elsewhere; F15.10 Other stimulant abuse, uncomplicated; E87.5 Hyperkalemia; E88.09 Other disorders of plasma-protein metabolism, not elsewhere classified; E86.0 Dehydration; E83.42 Hypomagnesemia; I95.81 Postprocedural hypotension; M24.562 Contracture, left knee; E11.621 Type 2 diabetes mellitus with foot ulcer; E87.6 Hypokalemia; Z53.09 Procedure and treatment not carried out because of other contraindication; F17.210 Nicotine dependence, cigarettes, uncomplicated; Z89.611 Acquired absence of right leg above knee; E78.5 Hyperlipidemia, unspecified; Z86.718 Personal history of other venous thrombosis and embolism; Z79.01 Long term (current) use of anticoagulants; Z86.711 Personal history of pulmonary embolism; G89.29 Other chronic pain; F41.8 Other specified anxiety disorders; E11.42 Type 2 diabetes mellitus with diabetic polyneuropathy; I10 Essential (primary) hypertension; J44.9 Chronic obstructive pulmonary disease, unspecified; S70.02XA Contusion of left hip, initial encounter; X58.XXXA Exposure to other specified factors, initial encounter; Y92.9 Unspecified place or not applicable
CPT/HCPCS: 10005; 36415; 36416; 36430; 36573; 36592; 36600; 51702; 70450; 71045; 72125; 73630; 73700; 73721; 74176; 76882; 80048; 80053; 80061; 80202; 80306; 80307; 80503; 81001; 82140; 82550; 82803; 82962; 83036; 83605; 83735; 83880; 84100; 84145; 84443; 84484; 85007; 85014; 85018; 85025; 85027; 85651; 85730; 86140; 86850; 86900; 86920; 87040; 87070; 87075; 87077; 87086; 87186; 87205; 87641; 89050; 92523; 92610; 93005; 96365; 96372; 96376; 99285; C1751; C9113; J0131; J0360; J0610; J0690; J1170; J1644; J1756; J1815; J1885; J2270; J2371; J2405; J2543; J2704; J3010; J3370; J3475; J3480; J3490; J7030; J7070; P9016; P9040; P9046; P9047

== ENCOUNTER → 2024-01-21 14:24 | Outpatient (BNVA) | payer MEDICARE, MEDICAID, SELFPAY | PROVIDERS: PCP Family Medicine; Visit Provider Physician Assistant | DX: L08.9 Local infection of the skin and subcutaneous tissue, unspecified; Z98.890 Other specified postprocedural states; L76.32 Postprocedural hematoma of skin and subcutaneous tissue following other procedure | CPT/HCPCS: 99024 ==

== ENCOUNTER → 2024-01-28 08:17 | Outpatient (BNVA) | payer MEDICARE, MEDICAID, SELFPAY | PROVIDERS: PCP Family Medicine; Visit Provider Thoracic Surgery (Cardiothoracic Vascular Surgery) | DX: T81.31XD Disruption of external operation (surgical) wound, not elsewhere classified, subsequent encounter (principal); Y83.8 Other surgical procedures as the cause of abnormal reaction of the patient, or of later complication, without mention of misadventure at the time of the procedure; E11.52 Type 2 diabetes mellitus with diabetic peripheral angiopathy with gangrene; E11.621 Type 2 diabetes mellitus with foot ulcer; L97.421 Non-pressure chronic ulcer of left heel and midfoot limited to breakdown of skin; I89.0 Lymphedema, not elsewhere classified | CPT/HCPCS: 11042; 87070; 97597; 97598; 99213 ==

== ENCOUNTER → 2024-01-31 13:44 | Outpatient (BNVA) | payer MEDICARE, MEDICAID, SELFPAY | PROVIDERS: PCP Family Medicine; Visit Provider Physician Assistant | DX: T14.8XXA Other injury of unspecified body region, initial encounter; X58.XXXA Exposure to other specified factors, initial encounter; S70.02XA Contusion of left hip, initial encounter; L08.9 Local infection of the skin and subcutaneous tissue, unspecified | CPT/HCPCS: 36415; 85025; 99214 ==

== ENCOUNTER → 2024-02-04 10:01 | Outpatient (BNVA) | payer MEDICARE, MEDICAID, SELFPAY | PROVIDERS: PCP Family Medicine; Visit Provider Thoracic Surgery (Cardiothoracic Vascular Surgery) | DX: E11.52 Type 2 diabetes mellitus with diabetic peripheral angiopathy with gangrene (principal); E11.621 Type 2 diabetes mellitus with foot ulcer; L97.421 Non-pressure chronic ulcer of left heel and midfoot limited to breakdown of skin; I89.0 Lymphedema, not elsewhere classified; L02.416 Cutaneous abscess of left lower limb | CPT/HCPCS: 11042; 87070; 87075; 87077; 87186; 87205; 97597; 97598 ==

== ENCOUNTER → 2024-02-07 08:56 | Outpatient (BNVA) | payer MEDICARE, MEDICAID, SELFPAY | PROVIDERS: PCP Family Medicine; Visit Provider Thoracic Surgery (Cardiothoracic Vascular Surgery) | DX: T81.31XD Disruption of external operation (surgical) wound, not elsewhere classified, subsequent encounter (principal); Y83.8 Other surgical procedures as the cause of abnormal reaction of the patient, or of later complication, without mention of misadventure at the time of the procedure; E11.52 Type 2 diabetes mellitus with diabetic peripheral angiopathy with gangrene; E11.621 Type 2 diabetes mellitus with foot ulcer; L97.421 Non-pressure chronic ulcer of left heel and midfoot limited to breakdown of skin; I89.0 Lymphedema, not elsewhere classified; L97.821 Non-pressure chronic ulcer of other part of left lower leg limited to breakdown of skin | CPT/HCPCS: 99211 ==

== ENCOUNTER → 2024-02-11 09:18 | Outpatient (BNVA) | payer MEDICARE, MEDICAID, SELFPAY | PROVIDERS: PCP Family Medicine; Visit Provider Thoracic Surgery (Cardiothoracic Vascular Surgery) | DX: T81.31XD Disruption of external operation (surgical) wound, not elsewhere classified, subsequent encounter (principal); Y83.8 Other surgical procedures as the cause of abnormal reaction of the patient, or of later complication, without mention of misadventure at the time of the procedure; E11.52 Type 2 diabetes mellitus with diabetic peripheral angiopathy with gangrene; E11.621 Type 2 diabetes mellitus with foot ulcer; L97.421 Non-pressure chronic ulcer of left heel and midfoot limited to breakdown of skin; L97.521 Non-pressure chronic ulcer of other part of left foot limited to breakdown of skin; I89.0 Lymphedema, not elsewhere classified; L97.821 Non-pressure chronic ulcer of other part of left lower leg limited to breakdown of skin | CPT/HCPCS: 11042; 97597; 97598 ==

== ENCOUNTER → 2024-02-14 10:29 | Outpatient (BNVA) | payer MEDICARE, MEDICAID, SELFPAY | PROVIDERS: PCP Family Medicine; Visit Provider Student in an Organized Health Care Education/Training Program | DX: L08.9 Local infection of the skin and subcutaneous tissue, unspecified; T14.8XXD Other injury of unspecified body region, subsequent encounter; T81.31XD Disruption of external operation (surgical) wound, not elsewhere classified, subsequent encounter; Y83.8 Other surgical procedures as the cause of abnormal reaction of the patient, or of later complication, without mention of misadventure at the time of the procedure; X58.XXXD Exposure to other specified factors, subsequent encounter | CPT/HCPCS: 99213 ==

== ENCOUNTER → 2024-02-18 08:48 | Outpatient (BNVA) | payer MEDICARE, MEDICAID, SELFPAY | PROVIDERS: PCP Family Medicine; Visit Provider Thoracic Surgery (Cardiothoracic Vascular Surgery) | DX: T81.31XD Disruption of external operation (surgical) wound, not elsewhere classified, subsequent encounter (principal); Y83.8 Other surgical procedures as the cause of abnormal reaction of the patient, or of later complication, without mention of misadventure at the time of the procedure; E11.52 Type 2 diabetes mellitus with diabetic peripheral angiopathy with gangrene; E11.621 Type 2 diabetes mellitus with foot ulcer; L97.521 Non-pressure chronic ulcer of other part of left foot limited to breakdown of skin; L97.421 Non-pressure chronic ulcer of left heel and midfoot limited to breakdown of skin; I89.0 Lymphedema, not elsewhere classified; L97.822 Non-pressure chronic ulcer of other part of left lower leg with fat layer exposed | CPT/HCPCS: 87070; 87077; 87176; 87186; 87205; 97597; 97598 ==

== ENCOUNTER → 2024-02-25 10:31 | Outpatient (BNVA) | payer MEDICARE, MEDICAID, SELFPAY | PROVIDERS: PCP Family Medicine; Visit Provider Thoracic Surgery (Cardiothoracic Vascular Surgery) | DX: T81.31XD Disruption of external operation (surgical) wound, not elsewhere classified, subsequent encounter (principal); Y83.8 Other surgical procedures as the cause of abnormal reaction of the patient, or of later complication, without mention of misadventure at the time of the procedure; E11.52 Type 2 diabetes mellitus with diabetic peripheral angiopathy with gangrene; L97.421 Non-pressure chronic ulcer of left heel and midfoot limited to breakdown of skin; I89.0 Lymphedema, not elsewhere classified; L97.821 Non-pressure chronic ulcer of other part of left lower leg limited to breakdown of skin; L97.521 Non-pressure chronic ulcer of other part of left foot limited to breakdown of skin | CPT/HCPCS: 11042; 97597; 97598 ==

== ENCOUNTER 2024-02-28 10:07 | Outpatient (CLI) | payer MEDICARE, MEDICAID, SELFPAY ==
[2024-02-28 10:25] LABS: Basophils % 0.4 %; Eosinophils # 0.3 10^3/uL (0.0-0.8); Eosinophils % 5.9 %; Hematocrit 34.4 % (36-47); Lymphocytes # 0.9 10^3/uL (0.8-4.8); Lymphocytes % 16.1 %; Mean Corpuscular HGB Conc 30.2 g/dL (30-55); Mean Corpuscular Hemoglobin 29.9 pg (27-33); Mean Corpuscular Volume 98.9 fl (85-98); Mean Platelet Volume 9.1 fL (7.4-10.4); Monocytes # 0.5 10^3/uL (0.2-0.9); Monocytes % 9.3 %; Neutrophils % 68.1 %; Nucleated Red Blood Cells % 0 %; Platelet Count 361 10^3/cmm (157-399); Red Blood Count 3.48 10^6/uL (3.85-5.65); Red Cell Distribution Width 17.6 % (12.1-15.1); White Blood Count 5.28 10^3/uL (3.29-11.43)
[2024-02-28 10:45] LABS: Alanine Aminotransferase < 5 U/L (0-33); Albumin Level 3.6 g/dL (3.5-5.2); Alkaline Phosphatase 83 U/L (35-105); Anion Gap 11.8 (5-19); Aspartate Amino Transferase 13 U/L (0-32); Blood Urea Nitrogen 12 mg/dL (8-23); Calcium 8.7 mg/dL (8.5-10.5); Carbon Dioxide 28 mmol/L (22-29); Chloride 100 mmol/L (98-107); Globulin 3.8 g/dL (1.3-4.6); Glomerular Filtration Rate 161.2 mL/min (90-130); Glucose 84 mg/dL (65-115); Osmolality Calculated 281 mOsm/kg (285-295); Potassium 3.8 mmol/L (3.5-5.1); Sodium 136 mmol/L (136-145); Total Bilirubin 0.3 mg/dL (0.15-1.2); Total Protein 7.4 g/dL (6.6-8.7)
[2024-02-28 10:49] LABS: Erythrocyte Sedimentation Rate 47 mm/hr (0-15)
== END 2024-02-28 10:08 | disposition home or self-care (01) ==
LOC: LAB 10:08
PROVIDERS: PCP Family Medicine; Visit Provider Thoracic Surgery (Cardiothoracic Vascular Surgery)
DX: E11.42 Type 2 diabetes mellitus with diabetic polyneuropathy (principal); Z79.899 Other long term (current) drug therapy
CPT/HCPCS: 36415; 80053; 85025; 85651; 86140

== ENCOUNTER → 2024-03-03 10:49 | Outpatient (BNVA) | payer MEDICARE, MEDICAID, SELFPAY | PROVIDERS: PCP Family Medicine; Visit Provider Thoracic Surgery (Cardiothoracic Vascular Surgery) | DX: T81.31XD Disruption of external operation (surgical) wound, not elsewhere classified, subsequent encounter (principal); Y83.8 Other surgical procedures as the cause of abnormal reaction of the patient, or of later complication, without mention of misadventure at the time of the procedure; E11.52 Type 2 diabetes mellitus with diabetic peripheral angiopathy with gangrene; E11.621 Type 2 diabetes mellitus with foot ulcer; L97.421 Non-pressure chronic ulcer of left heel and midfoot limited to breakdown of skin; L97.521 Non-pressure chronic ulcer of other part of left foot limited to breakdown of skin; I89.0 Lymphedema, not elsewhere classified; L97.821 Non-pressure chronic ulcer of other part of left lower leg limited to breakdown of skin | CPT/HCPCS: 97597; 97598; A6252 ==

== ENCOUNTER → 2024-03-10 10:29 | Outpatient (BNVA) | payer MEDICARE, MEDICAID, SELFPAY | PROVIDERS: PCP Family Medicine; Visit Provider Thoracic Surgery (Cardiothoracic Vascular Surgery) | DX: T87.81 Dehiscence of amputation stump (principal); Y83.8 Other surgical procedures as the cause of abnormal reaction of the patient, or of later complication, without mention of misadventure at the time of the procedure; E11.52 Type 2 diabetes mellitus with diabetic peripheral angiopathy with gangrene; E11.621 Type 2 diabetes mellitus with foot ulcer; L97.421 Non-pressure chronic ulcer of left heel and midfoot limited to breakdown of skin; L97.521 Non-pressure chronic ulcer of other part of left foot limited to breakdown of skin; I89.0 Lymphedema, not elsewhere classified; L97.821 Non-pressure chronic ulcer of other part of left lower leg limited to breakdown of skin | CPT/HCPCS: 97597; 97598; A6252 ==

== ENCOUNTER → 2024-03-24 10:10 | Outpatient (BNVA) | payer MEDICARE, MEDICAID, SELFPAY | PROVIDERS: PCP Family Medicine; Visit Provider Thoracic Surgery (Cardiothoracic Vascular Surgery) | DX: T81.31XD Disruption of external operation (surgical) wound, not elsewhere classified, subsequent encounter (principal); Y83.8 Other surgical procedures as the cause of abnormal reaction of the patient, or of later complication, without mention of misadventure at the time of the procedure; E11.52 Type 2 diabetes mellitus with diabetic peripheral angiopathy with gangrene; E11.621 Type 2 diabetes mellitus with foot ulcer; L97.421 Non-pressure chronic ulcer of left heel and midfoot limited to breakdown of skin; L97.521 Non-pressure chronic ulcer of other part of left foot limited to breakdown of skin; I89.0 Lymphedema, not elsewhere classified; L97.821 Non-pressure chronic ulcer of other part of left lower leg limited to breakdown of skin | CPT/HCPCS: 97597; 97598; 99213 ==

== ENCOUNTER → 2024-03-31 10:00 | Outpatient (BNVA) | payer MEDICARE, MEDICAID, SELFPAY | PROVIDERS: PCP Family Medicine; Visit Provider Thoracic Surgery (Cardiothoracic Vascular Surgery) | DX: T81.31XD Disruption of external operation (surgical) wound, not elsewhere classified, subsequent encounter (principal); Y83.8 Other surgical procedures as the cause of abnormal reaction of the patient, or of later complication, without mention of misadventure at the time of the procedure; E11.52 Type 2 diabetes mellitus with diabetic peripheral angiopathy with gangrene; E11.621 Type 2 diabetes mellitus with foot ulcer; L97.422 Non-pressure chronic ulcer of left heel and midfoot with fat layer exposed; L97.521 Non-pressure chronic ulcer of other part of left foot limited to breakdown of skin; Z09 Encounter for follow-up examination after completed treatment for conditions other than malignant neoplasm; E11.622 Type 2 diabetes mellitus with other skin ulcer; L97.811 Non-pressure chronic ulcer of other part of right lower leg limited to breakdown of skin; L97.821 Non-pressure chronic ulcer of other part of left lower leg limited to breakdown of skin | CPT/HCPCS: 11042; 11045; 97597; 97598; A6252; A6253 ==

== ENCOUNTER → 2024-04-07 10:27 | Outpatient (BNVA) | payer MEDICARE, MEDICAID, SELFPAY | PROVIDERS: PCP Family Medicine; Visit Provider Thoracic Surgery (Cardiothoracic Vascular Surgery) | DX: T81.31XD Disruption of external operation (surgical) wound, not elsewhere classified, subsequent encounter (principal); Y83.8 Other surgical procedures as the cause of abnormal reaction of the patient, or of later complication, without mention of misadventure at the time of the procedure; E11.52 Type 2 diabetes mellitus with diabetic peripheral angiopathy with gangrene; E11.621 Type 2 diabetes mellitus with foot ulcer; L97.425 Non-pressure chronic ulcer of left heel and midfoot with muscle involvement without evidence of necrosis; L97.521 Non-pressure chronic ulcer of other part of left foot limited to breakdown of skin; E11.622 Type 2 diabetes mellitus with other skin ulcer; L97.821 Non-pressure chronic ulcer of other part of left lower leg limited to breakdown of skin | CPT/HCPCS: 11043; 11046; 97597; A6253 ==

== ENCOUNTER → 2024-04-14 13:07 | Outpatient (BNVA) | payer MEDICARE, MEDICAID, SELFPAY | PROVIDERS: PCP Family Medicine; Visit Provider Thoracic Surgery (Cardiothoracic Vascular Surgery) | DX: T81.31XD Disruption of external operation (surgical) wound, not elsewhere classified, subsequent encounter (principal); Y83.8 Other surgical procedures as the cause of abnormal reaction of the patient, or of later complication, without mention of misadventure at the time of the procedure; E11.52 Type 2 diabetes mellitus with diabetic peripheral angiopathy with gangrene; E11.621 Type 2 diabetes mellitus with foot ulcer; L97.421 Non-pressure chronic ulcer of left heel and midfoot limited to breakdown of skin; L97.521 Non-pressure chronic ulcer of other part of left foot limited to breakdown of skin; E11.622 Type 2 diabetes mellitus with other skin ulcer; L97.821 Non-pressure chronic ulcer of other part of left lower leg limited to breakdown of skin | CPT/HCPCS: 97597; 97598; A6251; A6253 ==

== ENCOUNTER → 2024-04-21 10:47 | Outpatient (BNVA) | payer MEDICARE, MEDICAID, SELFPAY | PROVIDERS: PCP Family Medicine; Visit Provider Thoracic Surgery (Cardiothoracic Vascular Surgery) | DX: T81.31XD Disruption of external operation (surgical) wound, not elsewhere classified, subsequent encounter (principal); Y83.8 Other surgical procedures as the cause of abnormal reaction of the patient, or of later complication, without mention of misadventure at the time of the procedure; E11.52 Type 2 diabetes mellitus with diabetic peripheral angiopathy with gangrene; E11.621 Type 2 diabetes mellitus with foot ulcer; L97.421 Non-pressure chronic ulcer of left heel and midfoot limited to breakdown of skin; Z09 Encounter for follow-up examination after completed treatment for conditions other than malignant neoplasm | CPT/HCPCS: 97597; 97598 ==

== ENCOUNTER 2024-04-28 12:25 | Inpatient (IN) | payer MEDICARE, MEDICAID, SELFPAY ==
[2024-04-28] VITALS (12 sets, daily range): BP systolic 88–111; BP diastolic 51–66; PULSE 69–98; RESP 16–22; TEMP 36.7–37.1; O2SAT 86–100; BMI 29.0
--- NOTE | 2024-04-28 12:27 | XRR_ITS ---
PROCEDURE INFORMATION: Exam: XR Chest Exam date and time: 04/28/2024 1:03 PM Age: 64 years old Clinical indication: Cough and dyspnea; Additional info: Dyspnea/cough TECHNIQUE: Imaging protocol: Radiologic exam of the chest. Views: 1 view. COMPARISON: CR XR chest 1V portable [id number] 12/17/2023 9:05 AM FINDINGS: Lungs: Small amount of new atelectasis and/or pneumonitis in the right lung base. Slightly increased atelectasis and/or pneumonitis in the left mid lung. Unchanged calcified granuloma left lower lung. Otherwise, unremarkable. Pleural spaces: Unremarkable. No pleural effusion. No pneumothorax. Heart/Mediastinum: Unremarkable. No cardiomegaly. Diaphragm: Slightly increased mild elevation of the right hemidiaphragm. Bones/joints: Unchanged mild scoliosis with mild and moderate multilevel spondylosis. Unchanged surgical hardware attached to the visualized cervical and upper thoracic spine. Unchanged bilateral shoulder arthritis. Otherwise, unremarkable. XR/XR chest 1V portable [id number] IMPRESSION: 1. Slightly increased mild elevation of the right hemidiaphragm. 2. Small amount of new atelectasis and/or pneumonitis right lung base. 3. Slightly increased atelectasis and/or pneumonitis left mid lung.
--- NOTE | 2024-04-28 12:38 | W.ED.EXTPRO ---
HPI - Extremity Problem General: Chief complaint: Extremity Problem,Nontraumatic Stated complaint: LT Leg Pain/ Hot/ Red Time Seen by Provider: 04/28/24 12:26 History of Present Illness: 64-year-old female presents emergency room planing of left leg pain reddened and inflamed mildly altered mental status. She is chronically on methadone. She has a longstanding left heel wound and left lateral hip wound from hematoma that was incised and drained. She describes low-grade subjective fever general aches and pains. No chest pain or shortness of breath no abdominal pain. She has been seen for a long period of time by the wound care clinic and has previously been on extended course of vancomycin for osteomyelitis no recent antibiotics. Associated symptoms: Reports fever(s) and rash; Deny chest pain Review of Systems Const: Reports: fever(s), fatigue and malaise; Denies: chills Card: Denies: chest pain Resp: Denies: dyspnea GI: Denies: abdominal pain : Denies: dysuria, urinary frequency or urinary urgency Musc: Denies: neck pain or back pain Skin/Breast: Reports: rash, lesions and changes in skin color PFSH ED PFSH: Medical History AMS (altered mental status) COPD (chronic obstructive pulmonary disease) Metabolic encephalopathy Degenerative joint disease of left knee Closed fracture of left distal femur Hypertension Closed femur fracture Venous stasis ulcer Cellulitis Diabetic neuropathy associated with type 2 diabetes mellitus Diastolic CHF Anemia Substance abuse Depression with anxiety Chronic pain History of DVT of lower extremity post-operative Hyperlipidemia Hypertension History of cardioversion history of SVT vs for other arrhythmia Methamphetamine use Diabetes mellitus, type II Cnvpfkf-Kjksf-Fcxjt disease-like deformity of foot right Lung cancer Torticollis, acquired Has had good results with Botox in the past Lumbar radiculopathy Cervical post-laminectomy syndrome Surgical History Status post above-knee amputation of right lower extremity Hx of neck surgery x 2, posterior laminectomy and cervical fusion with hardware in place, limited ROM neck at baseline Hx of total knee replacement (~2010) Right History of arthroplasty of left knee (~1976) History of partial hysterectomy Hx of dilation and curettage Hx of tubal ligation Hx of appendectomy Family History Family/Other Hypertension Depression Anxiety Diabetes Father Aneurysm Mother Hypertension Brother Diabetes Sister Diabetes Social History Smoking and tobacco/nicotine status: current every day tobacco/nicotine user Alcohol intake: never Substance/Drug Use: current Substance/Drug use frequency: few times a month Additional social history: unknown if patient continues to smoke, documented to smoke previously Marital status: Female Reproductive History: Spontaneous abortions: No Physical Exam Const: GENERAL APPEARANCE: cooperative ORIENTATION/CONSCIOUSNESS: Yes awake, Yes oriented to person, Yes oriented to place and Yes oriented to time HENMT: COMMON NORMALS: normocephalic, atraumatic and hearing grossly normal bilaterally HEAD & SCALP: normocephalic and atraumatic Resp: COMMON NORMALS: normal respiratory effort, No retractions, No use of accessory muscles and clear to auscultation bilaterally AUSCULTATION: clear to auscultation bilaterally Cardio: COMMON NORMALS: regular rate, regular rhythm and No murmurs present (Cardio) RATE: regular rate RHYTHM: regular rhythm GI: COMMON NORMALS: Soft to palpation and No hepatosplenomegaly present AUSCULTATION: Yes normoactive bowel sounds PALPATION: Yes Soft to palpation, No Tenderness to palpation present (GI), No Guarding due to palpation present (GI) and Yes No hepatosplenomegaly present Extremity: OTHER: 3+ edema lower extremity beginning at the foot there is a full-thickness ulceration at the heel with mucousy eschar present. Proximally the erythema and induration of the skin continues with some skin breakdown and serous drainage through defects in the skin. It is red and erythematous all the way to the level of the iliac crest laterally into the level of the groin crease more medially. There is an wound in the left lateral hip from previous hematoma incision and drainage and healing by secondary intent no active drainage from this wound. The erythema from the lower portion of the leg does encroach upon this. Neuro: SENSORIUM/ORIENTATION: Yes oriented to person, Yes oriented to place and Yes oriented to time Skin: COMMON NORMALS: no rashes or lesions noted GENERAL SKIN EXAM: no rashes or lesions noted Course Vital Signs: Vital signs: Vital Signs Temperature 98.1 F 04/28/24 12:33 Pulse Rate 91 04/28/24 15:37 Respiratory Rate 19 H 04/28/24 16:01 Blood Pressure 110/57 04/28/24 15:37 Pulse Oximetry 98 04/28/24 15:37 Oxygen Delivery Me thod Nasal Cannula 04/28/24 15:37 Oxygen Flow Rate 3 04/28/24 15:37 MDM - Extremity (Nontraumatic) Medical Decision Making Cellulitis osteomyelitis of the left leg and left heel. The cellulitis extends proximally to the level of the iliac crest on the left. There is full skin breakdown on the left heel. This is been a longstanding ongoing issue for the patient was started on IV vancomycin. Segmental Dopplers of the left leg shows restriction in flow but probably better than what it thought it might be. Is been a longstanding issue for the patient of Dr. Dr. Champagne with previously recommended amputation. Will admit started on IV antibiotics discussed with hospitalist they will make arrangements for consultation. Orders written. Medical Records I reviewed the patient's medical records. Lab Data I reviewed the patient's lab results. 04/28/24 12:49 04/28/24 12:49 Radiology Impressions Chest X-Ray 04/28/24 12:27 IMPRESSION: 1. Slightly increased mild elevation of the right hemidiaphragm. 2. Small amount of new atelectasis and/or pneumonitis right lung base. 3. Slightly increased atelectasis and/or pneumonitis left mid lung. Foot X-Ray 04/28/24 13:16 IMPRESSION: 1. Osteomyelitis and soft tissue infection are possible. See above discussion. This can be better evaluated with MRI if clinically warranted. 2. Additional details as above. Laboratory Results WBC 23.42 10^3/uL (3.29-11.43) H 04/28/24 12:49 RBC 3.75 10^6/uL (3.85-5.65) L 04/28/24 12:49 Hgb 11.60 g/dL (11.27-16.99) 04/28/24 12:49 Hct 37.4 % (36-47) 04/28/24 12:49 MCV 99.7 fl (85-98) H 04/28/24 12:49 MCH 30.9 pg (27-33) 04/28/24 12:49 MCHC 31.0 g/dL (30-55) 04/28/24 12:49 RDW 14.6 % (12.1-15.1) 04/28/24 12:49 Plt Count 360 10^3/cmm (157-399) 04/28/24 12:49 MPV 9.8 fL (7.4-10.4) 04/28/24 12:49 Neut % (Auto) 93.0 % 04/28/24 12:49 Lymph % (Auto) 3.1 % 04/28/24 12:49 [place] % (Auto) 2.0 % 04/28/24 12:49 Eos % (Auto) 0.0 % 04/28/24 12:49 Baso % (Auto) 0.3 % 04/28/24 12:49 Neut # (Auto) 21.81 10^3/uL (1.8-7.7) H 04/28/24 12:49 Lymph # (Auto) 0.7 10^3/uL (0.8-4.8) L 04/28/24 12:49 [place] # (Auto) 0.5 10^3/uL (0.2-0.9) 04/28/24 12:49 Eos # (Auto) 0.0 10^3/uL (0.0-0.8) 04/28/24 12:49 Baso # (Auto) 0.1 10^3/uL (0.0-0.1) 04/28/24 12:49 Nucleated RBC % (auto) 0 % 04/28/24 12:49 Nucleated RBCs # 0.0 /100WBC 04/28/24 12:49 Sodium 133 mmol/L (136-145) L 04/28/24 12:49 Potassium 4.9 mmol/L (3.5-5.1) 04/28/24 12:49 Chloride 97 mmol/L (98-107) L 04/28/24 12:49 Carbon Dioxide 23 mmol/L (22-29) 04/28/24 12:49 Anion Gap 17.9 (5-19) 04/28/24 12:49 BUN 29 mg/dL (8-23) H 04/28/24 12:49 Creatinine 0.9 mg/dL (0.5-0.9) 04/28/24 12:49 GFR Calculation 63.0 mL/min (90-130) L 04/28/24 12:49 Glucose 130 mg/dL (65-115) H 04/28/24 12:49 Calculated Osmolality 284 mOsm/kg (285-295) L 04/28/24 12:49 Lactic Acid 2.8 mmol/L (0.5-2.2) H 04/28/24 12:49 Calcium 9.1 mg/dL (8.5-10.5) 04/28/24 12:49 Total Bilirubin 1.3 mg/dL (0.15-1.2) H 04/28/24 12:49 AST 15 U/L (0-32) 04/28/24 12:49 ALT 10 U/L (0-33) 04/28/24 12:49 Alkaline Phosphatase 164 U/L (35-105) H 04/28/24 12:49 Total Protein 7.7 g/dL (6.6-8.7) 04/28/24 12:49 Albumin 3.0 g/dL (3.5-5.2) L 04/28/24 12:49 Globulin 4.7 g/dL (1.3-4.6) H 04/28/24 12:49 All radiology interpretation(s) finalized by discharge Discharge Plan Discharge Patient Disposition: Admitted As Inpatient Admit Provider: Alexander Chang Clinical Impression: Cellulitis of left lower leg, Septic shock, Wound dehiscence, Cellulitis Diabetes mellitus, type II Qualifiers: Diabetes mellitus termite treater insulin use: without [facility] use Diabetes mellitus complication status: with circulatory complication Diabetes mellitus complication detail: with peripheral angiopathy without gangrene Qualified Code(s): E11.51 - Type 2 diabetes mellitus with diabetic peripheral angiopathy without gangrene Condition: Stable Coding Level of Care Code ED Small Equipment Operator for Trent Crews
[2024-04-28 13:03] LABS: Basophils # 0.1 10^3/uL (0.0-0.1); Basophils % 0.3 %; Hematocrit 37.4 % (36-47); Lymphocytes # 0.7 10^3/uL (0.8-4.8); Lymphocytes % 3.1 %; Mean Corpuscular Hemoglobin 30.9 pg (27-33); Mean Corpuscular Volume 99.7 fl (85-98); Mean Platelet Volume 9.8 fL (7.4-10.4); Monocytes # 0.5 10^3/uL (0.2-0.9); Neutrophils # 21.81 10^3/uL (1.8-7.7); Nucleated Red Blood Cells % 0 %; Platelet Count 360 10^3/cmm (157-399); Red Blood Count 3.75 10^6/uL (3.85-5.65); Red Cell Distribution Width 14.6 % (12.1-15.1); White Blood Count 23.42 10^3/uL (3.29-11.43)
--- NOTE | 2024-04-28 13:16 | ECG_ITS ---
[facility] Test Date: 2024-04-28 Pat Name: Polina Snyder Department: Room: Gender: Female Business Support Specialist: : 1960 Requested By: Gene Cruz Order Number: [id number] Rosalba MD: Gil Ramos M.D. Measurements Intervals [place] Rate: 80 P: 46 MT: 134 QRS: 14 QRSD: 86 T: 38 QT: 380 QTc: 439 Interpretive Statements SINUS RHYTHM Compared to ECG 12/17/2023 03:41:21 Intraventricular conduction delay no longer present Electronically Signed On 04-28-2024 17:19:11 CDT by Gil Ramos M.D. [email or web address] [email or web address] [id number]
--- NOTE | 2024-04-28 13:16 | XRR_ITS ---
PROCEDURE INFORMATION: Exam: XR Left Foot Exam date and time: 04/28/2024 1:25 PM Age: 64 years old Clinical indication: Condition or disease; Other: Heel ulcer; Patient HX: Lt foot swollen and ulcer on heel, HX of lung cancer TECHNIQUE: Imaging protocol: Radiologic exam of the left foot. Views: 3 or more views. COMPARISON: CR XR foot LT min 3V* [id number] 12/30/2023 12:31 PM FINDINGS: Bones/joints: Diffuse osteopenia. Valgus deformity and severe arthritis left great toe interphalangeal joint. 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 Moderate arthritis all tarsometatarsal articulations and the talonavicular articulation. Pes planus. Diffuse mottled appearance to the bones may be due to the osteopenia, but this makes it difficult to exclude osteomyelitis. Otherwise, grossly unremarkable. Soft tissues: Heel ulcer. Diffuse soft tissue swelling. Soft tissue infection is possible. XR/XR foot LT min 3V* [id number] IMPRESSION: 1. Osteomyelitis and soft tissue infection are possible. See above discussion. This can be better evaluated with MRI if clinically warranted. 2. Additional details as above.
--- NOTE | 2024-04-28 13:16 | USCV_ITS ---
Polina Snyder Age: 64 Gender: F : 1960 Exam Date: 04/28/2024 13:57 Ordering Phys: Gene King DO Technologist: Exam Location: [facility] [place] Indication: lt leg pain and swelling PROCEDURES: Venous duplex imaging was performed in only the left lower extremity. The following venous structures were evaluated: common femoral vein, profunda vein, proximal portion of the greater saphenous vein, superficial femoral vein, and the popliteal vein. In addition, the posterior tibial and peroneal trunk were evaluated. FINDINGS: Normal 2-D Doppler and augmentation and compressibility throughout the lower extremity venous structures. Additional imaging through the proximal calf veins also reveals no thrombus. Limited evaluation of the greater saphenous vein is patent with no thrombus. Tech limited exam. CONCLUSIONS No evidence of left lower extremity DVT. Tom Leyva MD (Electronically Signed) Final Date: 28 April 2024 16:33 S
[2024-04-28 13:21] LABS: Alanine Aminotransferase 10 U/L (0-33); Alkaline Phosphatase 164 U/L (35-105); Anion Gap 17.9 (5-19); Aspartate Amino Transferase 15 U/L (0-32); Blood Urea Nitrogen 29 mg/dL (8-23); Calcium 9.1 mg/dL (8.5-10.5); Carbon Dioxide 23 mmol/L (22-29); Chloride 97 mmol/L (98-107); Creatinine Clr Calc Pharmacy 68.0282; Globulin 4.7 g/dL (1.3-4.6); Glucose 130 mg/dL (65-115); Osmolality Calculated 284 mOsm/kg (285-295); Potassium 4.9 mmol/L (3.5-5.1); Sodium 133 mmol/L (136-145); Total Bilirubin 1.3 mg/dL (0.15-1.2); Total Protein 7.7 g/dL (6.6-8.7)
[2024-04-28 13:58] LABS: Lactic Sepsis W/Reflex 2.8 mmol/L (0.5-2.2)
--- NOTE | 2024-04-28 14:04 | USR_ITS ---
PROCEDURE INFORMATION: Exam: US Duplex Left Lower Extremity Arteries Or Arterial Bypass Grafts Exam date and time: 04/28/2024 2:10 PM Age: 64 years old Clinical indication: Pain; Leg, lower; Left; Additional info: Pad - cellulitis TECHNIQUE: Imaging protocol: Left Real-time duplex scan of the arteries or arterial bypass grafts of the left lower extremity with 2-D ludwig scale, color Doppler flow and spectral waveform analysis. Images documented and saved. COMPARISON: CT hip LT w con [id number] 06/16/2023 1:59 PM FINDINGS: Left common femoral artery: Elevated peak systolic velocity of 205 cm/s, but no occlusion or hemodynamically significant stenosis is known to be the case by CTA. Monophasic waveform. Left superficial femoral artery: Elevated peak systolic velocities, the greatest being 167 cm/s, but no occlusion or hemodynamically significant stenosis is known to be the case by CTA. Monophasic waveform. Left popliteal artery: No occlusion or significant stenosis. Monophasic waveform. Left calf/foot arteries: No occlusion or significant stenosis in the visualized arteries. Monophasic waveforms. Dorsalis pedis artery [place]. US/[place] [id number] IMPRESSION: 1. No hemodynamically significant stenosis or occlusion is known to be the case in the left leg by CTA from the level of the distal left common iliac artery to the foot. 2. However, monophasic waveforms throughout the arteries of the left leg suggest high-grade stenosis if not occlusion involving the aorta and/or the mid and proximal left common iliac artery. This examination does show an elevated peak systolic velocity in the proximal left common iliac artery of 174 cm/s and in the mid left common iliac artery of 218 cm/s.
[2024-04-28] MEDS: ondansetron 2 mg/ML SDV 2 mL 4 MG IVP (14:37)
--- NOTE | 2024-04-28 14:37 | CTR_ITS ---
PROCEDURE INFORMATION: Exam: CTA Left Lower Extremity With Contrast Exam date and time: 04/28/2024 2:57 PM Age: 64 years old Clinical indication: Pain; Lower leg and thigh; Left; Additional info: L lower leg TECHNIQUE: Imaging protocol: Computed tomographic angiography of the left lower extremity with contrast. 3D rendering (Not supervised by radiologist): MIP and/or 3D reconstructed images were created by the technologist. Radiation optimization: All CT scans at this facility use at least one of these dose optimization techniques: automated exposure control; mA and/or kV adjustment per patient size (includes targeted exams where dose is matched to clinical indication); or iterative reconstruction. Contrast material: OMNI 350; Contrast volume: 100 ml; Contrast route: INTRAVENOUS (IV); COMPARISON: CT hip LT w con [id number] 06/16/2023 1:59 PM RADIATION DOSE METRICS: Total DLP (mGy-cm): 739.9 FINDINGS: Left iliac arteries: Unremarkable visualized left common iliac artery. 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 Unremarkable left external iliac artery. Left femoral/popliteal arteries: No occlusion or significant stenosis. Left infrapopliteal arteries: No occlusion or significant stenosis. Right iliac arteries: Unremarkable visualized right common iliac artery. Unremarkable right internal iliac artery. Unremarkable right external iliac artery. Right femoral/popliteal arteries: Unremarkable remaining right femoral arteries. Veins: Calcified phleboliths. Bones/joints: Fractures involving the 1st and 2nd toes are now suspected, however, this may simply be an appearance due to overlap of bones, patient positioning, and imaging technique. There is considerable mottling in all the bones, particularly involving the left ankle and foot, the left knee, in the hips, and in the remaining right femur. Osteomyelitis in any of these locations is possible. Severe arthritis left hip, left ankle, left knee, and in the left foot. Infected joints cannot be excluded. Fixation hardware in the left femur. This transfixes a distal left femoral fracture which appears old. There has been a right [id number] amputation. Small bilateral hip and left knee joint effusions. Considerable lateral subluxation of the left patella. Avulsion fractures medial to the left ankle are now suspected. Left pes planus. Soft tissues: Small radiopaque foreign bodies near the plantar bases of the left 1st and 2nd toes. Large amount diffuse soft tissue edema. This could indicate soft tissue infection. No obvious abscess or hematoma. Open wound versus postsurgical distortion and scarring lateral to the left hip. Otherwise, unremarkable soft tissues. Other findings: No obvious extravasation of contrast. CT/[place] [id number] IMPRESSION: 1. 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 2. No other significant arterial pathology. 3. Additional details as above.
[2024-04-28] MEDS: morphine 4 mg/mL SDV 1 mL 2 MG IVP (14:39)
[2024-04-28] MEDS: vancomycin 1,000 MG in sodium chloride 0.9% 250 ML 250 MG IV (14:41)
[2024-04-28] MEDS: iohexol 350 mg/mL 500 mL Btl (per mL) IV (15:10)
--- NOTE | 2024-04-28 15:17 | P.HP_ITS ---
Providers/Chief Complaint 2 Primary Care Provider: Wilner Hdez DO Chief Complaint: LT Leg Pain/ Hot/ Red History of Present Illness Polina Snyder is a 64 year old female with history of right leg AKA amputation, extremity contractures, poorly controlled diabetic, history of polysubstance abuse, hip joint infection status post washout, presented today with chief complaint of worsening of pain of her left leg, patient has been following up with wound care clinic followed up with Dr. Champagne who recommended amputation but patient was reluctant to go for amputation, patient is stating that for last 2 to 3 days she has been noticing high-grade fever, her leg is more erythematous swollen and painful, she takes methadone 20 mg once daily and then takes naproxen. Patient is emotionally labile stating that her is in trouble there is some concern related to child pornography, and legal team is after him. She starts crying every time I ask any question Currently she is on 3 L, hemodynamically stable, I will add vancomycin Zosyn and clindamycin Dr. Chirinos will be consulted Patient is agreeable for amputation she does understand that this is her only way to avoid septic shock and , patient stating that she is living with her significant other for last 20+ years, they have medical power of trust and estates attorney paperwork at home but has not signed it yet, stating that her son is in , in case something happens to her she wants her significant other to make decisions for her Patient is stating that she uses electric scooter to carry out daily activities Review of Systems 2 Const: Reports: fever(s) and chills Eyes: Denies: change in vision ENMT: Denies: throat pain Card: Denies: chest pain Resp: Reports: dyspnea GI: Reports: nausea; Denies: abdominal pain : Denies: flank pain Musc: Reports: back pain, extremity swelling, joint pain, joint swelling, joint redness, joint warmth, joint stiffness, muscle cramps and muscle weakness Skin/Breast: Reports: rash, pruritus and erythema Medications/Allergies Home Medications Medication Instructions Recorded Confirmed Last Taken Type albuterol sulfate 90 mcg/actuation 2 inh inhalation Q4H PRN shortness 07/17/23 04/28/24 Unknown Rx aerosol inhaler of breath or wheezing #18 grams venlafaxine 150 mg 150 mg PO QAM #90 caps 12/12/23 04/28/24 04/27/24 Rx capsule,extended release 24 hr Methadone (Unknown Source) See Rx Instructions .Route .COMPLEX 12/16/23 04/28/24 Unknown History atenolol 50 mg tablet 50 mg PO BID #60 tabs 01/28/24 04/28/24 04/27/24 Rx tizanidine 4 mg tablet 4 mg PO Q8H PRN muscle spasticity 01/28/24 04/28/24 Unknown Rx #90 tabs sodium chloride 0.9 % irrigation 1 irrig irrigation BID wound care 01/29/24 04/28/24 Unknown Rx solution #250 mL amlodipine 5 mg tablet 5 mg PO DAILY #90 tabs 02/26/24 04/28/24 04/28/24 Rx fenofibrate nanocrystallized 145 145 mg PO DAILY #90 tabs 02/26/24 04/28/24 04/27/24 Rx mg tablet losartan 50 mg tablet 50 mg PO DAILY #90 tabs 02/26/24 04/28/24 04/27/24 Rx pantoprazole 40 mg tablet,delayed 40 mg PO DAILY #90 tabs 02/26/24 04/28/24 04/27/24 Rx release sodium hypochlorite 0.125 % 1 applic topical DAILY #473 mL 03/24/24 04/28/24 04/27/24 Rx solution (Dakin's Solution) diazepam 5 mg tablet 5 mg PO BID PRN anxiety #60 tabs 03/25/24 04/28/24 Unknown Rx furosemide 40 mg tablet 40 mg PO DAILY PRN Edema #90 tabs 03/25/24 04/28/24 04/27/24 Rx gabapentin 300 mg capsule 300 mg PO TID #90 caps 03/25/24 04/28/24 04/27/24 Rx metformin 500 mg tablet,extended 500 mg PO BID #60 tabs 03/25/24 04/28/24 04/28/24 Rx release 24 hr hydrocodone 7.5 mg-acetaminophen 1 tab PO Q6H PRN pain 5 days #20 04/01/24 04/28/24 Unknown Rx 325 mg tablet tabs ketorolac 10 mg tablet 10 mg PO Q8H PRN pain #15 tabs 04/08/24 04/28/24 Unknown Rx lidocaine-prilocaine 2.5 %-2.5 % 1 applic topical BID 04/28/24 04/28/24 04/27/24 History topical cream nystatin 100,000 unit/gram topical 1 applic topical TID 04/28/24 04/28/24 Unknown History powder Allergies Allergy/AdvReac Type Severity Reaction Status Date / Time nalbuphine Allergy Unknown sick to Verified 03/25/24 09:22 stomach adhesive tape Allergy rash Verified 03/25/24 09:22 amitriptyline Allergy Unknown Verified 03/25/24 09:22 morphine Allergy ADR-Vomitin Verified 03/25/24 09:22 g nitrofurantoin Allergy ADR-Vomitin Verified 03/25/24 09:22 [From Macrobid] g Sulfa (Sulfonamide Allergy Itch all Verified 03/25/24 09:22 Antibiotics) over PFSH Acute 2 PFSH: Medical History AMS (altered mental status) COPD (chronic obstructive pulmonary disease) Metabolic encephalopathy Degenerative joint disease of left knee Closed fracture of left distal femur Hypertension Closed femur fracture Venous stasis ulcer Cellulitis Diabetic neuropathy associated with type 2 diabetes mellitus Diastolic CHF Anemia Substance abuse Depression with anxiety Chronic pain History of DVT of lower extremity post-operative Hyperlipidemia Hypertension History of cardioversion history of SVT vs for other arrhythmia Methamphetamine use Diabetes mellitus, type II Bxipumx-Lbvel-Jqgxw disease-like deformity of foot right Lung cancer Torticollis, acquired Has had good results with Botox in the past Lumbar radiculopathy Cervical post-laminectomy syndrome Surgical History Status post above-knee amputation of right lower extremity Hx of neck surgery x 2, posterior laminectomy and cervical fusion with hardware in place, limited ROM neck at baseline Hx of total knee replacement (~2010) Right History of arthroplasty of left knee (~1976) History of partial hysterectomy Hx of dilation and curettage Hx of tubal ligation Hx of appendectomy Family History Family/Other Hypertension Depression Anxiety Diabetes Father Aneurysm Mother Hypertension Brother Diabetes Sister Diabetes Social History Smoking and tobacco/nicotine status: current every day tobacco/nicotine user Alcohol intake: never Substance/Drug Use: current Substance/Drug use frequency: few times a month Additional social history: unknown if patient continues to smoke, documented to smoke previously Marital status: Female Reproductive History: Spontaneous abortions: No Vitals/I&O/Wt Last Vital Signs Temp 98.1 F 04/28/24 12:33 Pulse 81 04/28/24 13:15 Resp 22 H 04/28/24 14:39 BP 92/51 04/28/24 13:15 Pulse Ox 100 04/28/24 13:15 O2 Del Method Nasal Cannula 04/28/24 13:15 O2 Flow Rate 2 04/28/24 12:33 Weight last 48 hrs Weight 81.647 kg Physical Exam 2 Narrative: Left leg erythematous Swollen Nonhealing heel ulcer Swelling is extending from toes all the way up to thigh Tender to touch Erythematous Ankle is very swollen and seems displaced Chronic wound on left hip area noted as well She is on 3 L Hemoglobin stable Emotional labile S1, S2 Awake and alert nonfocal neuroexam Data 04/28/24 12:49 04/28/24 12:49 Micro: Microbiology 04/28/24 12:49 Blood Culture - Preliminary Blood SPECIMEN COLLECTED 04/28/24 12:49 Blood Culture - Preliminary Blood SPECIMEN COLLECTED A&P Assessment and plan (1) Noncompliance: (2) Depression with anxiety: (3) Diabetes mellitus, type II: Qualifiers: Diabetes mellitus correction insulin use: without correction use Diabetes mellitus complication status: with circulatory complication Diabetes mellitus complication detail: with peripheral angiopathy without gangrene Qualified Code(s): E11.51 - Type 2 diabetes mellitus with diabetic peripheral angiopathy without gangrene (4) Cellulitis: (5) Cellulitis of left lower leg: (6) Ulcer of left heel: Qualifiers: Non-pressure ulcer stage: with fat layer exposed Qualified Code(s): L 97.422 - Non-pressure chronic ulcer of left heel and midfoot with fat layer exposed (7) Hallux malleus of left foot: (8) Diabetic neuropathy associated with type 2 diabetes mellitus: (9) Hypoxemia: (10) Chronic hypercapnic respiratory failure: (11) Uses wheelchair: (12) Leg swelling: Plan Nonhealing left leg ulcer Poorly controlled diabetic History of polysubstance abuse Peripheral arterial disease CTA angiogram of lower extremity showed internal iliac 70% stenosis which does not need intervention Patient is agreeable for amputation I will add vancomycin Zosyn and clindamycin Keep n.p.o. after midnight Consult Dr. Chirinos Sepsis related to cellulitis of left lower extremity Received septic bolus Continue IV fluids Blood cultures taken, lactic acid noted Poorly controlled diabetic will keep her on sliding scale for now Uses electric scooter Lives with significant other Full code Patient carries high risk for mortality morbidity In case of any hemodynamic instability threshold to admit to ICU will stay low For pain management I would use anti-inflammatory ketorolac along methadone and for breakthrough pain can use oxycodone at lower dose Attestations 2 Medical Necessity Statement*: More than 2 midnights anticipated Diagnoses Noncompliance Z91.19 Depression with anxiety F41.8 Type 2 diabetes mellitus with diabetic peripheral angiopathy without gangrene, without long-term current use of insulin E11.51 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
[2024-04-28 15:21] LABS: Reflex Lactate Order REFLEX LACTIC ORDERD
[2024-04-28] MEDS: morphine 4 mg/mL SDV 1 mL IVP (16:01)
[2024-04-28] MEDS: sodium chloride 0.9% 1,000 ML 100 ML IV (17:33)
[2024-04-28 17:50] LABS: Lactic Acid level (Lactate) 1.8 mmol/L (0.5-2.2)
[2024-04-28 18:26] LABS: Blood Urine Neg (Negative); Glucose Urine UA Norm (Normal); Ketones Urine 1+ (Negative); Nitrate Urine Negative (Negative); Protein Urine Trace (Negative); Urine Appearance Slightly Cloudy (CLEAR); Urine Color Dark yellow (Yellow); pH Urine 5 (5-7)
[2024-04-28 18:27] LABS: Add Urine Microscopic? YES; Bilirubin Urine 1+ (Negative); Leukocyte Esterase Urine 1+ (Negative); Urobilinogen Urine 8 mg/dL (Negative)
[2024-04-28 18:29] LABS: Add Urine Culture? No; Bacteria Urine 1+ /hpf; Squamous Epithelial Cell Urine 25-40 /hpf (0-5)
[2024-04-28 19:13] LABS: Estmated Average Glucose 154
[2024-04-28] MEDS: clindamycin 900 MG/50 ML PREMIX 100 MG IV (19:32)
[2024-04-28] MEDS: ketorolac 30 mg/mL INJ 15 MG IVP (19:37)
[2024-04-28 19:44] LABS: Procalcitonin 1.14 ng/mL (0-0.5)
--- NOTE | 2024-04-28 20:05 | PC.NURSE ---
Friend at bedside states that she wants Dr. Champagne consulted because Dr. Champagne is who the patient sees outpatient for her leg issues.
[2024-04-28] MEDS: piperacillin-tazobactam 3.375 GM in sodium chloride 0.9% (plus) 50 ML IV (20:14)
[2024-04-28 20:57] LABS: Glucose Point of Care 126 mg/dL (70-110)
--- NOTE | 2024-04-28 21:07 | PC.NURSE ---
Dr. Pineda notified of patient asking for Zanaflex that she takes at home. Ordered okay to order home dose of PRN Zanaflex. Dr. Pineda then notified that patient's blood pressure is 100/62. Ordered to give 2 mg Zanaflex at this time instead of home dose of 4 mg.
[2024-04-28] MEDS: tizanidine 4 mg Tablet 2 MG PO (21:13)
[2024-04-28 21:34] LABS: Thyroid Stimulating Hormone 1.79 uIU/mL (0.27-4.20)
[2024-04-28] MEDS: vancomycin 1,250 MG/250 ML PIGGYBACK 250 MG IV (22:08)
--- NOTE | 2024-04-28 23:07 | PC.NURSE ---
Unable to place SCDs on patient. Patient's left leg is swollen, red, painful, and weeping. Patient has amputation to right leg.
[2024-04-29] VITALS (71 sets, daily range): BP systolic 60–144; BP diastolic 38–90; PULSE 67–98; RESP 10–23; TEMP 36.2–37.3; O2SAT 90–100
[2024-04-29] MEDS: sodium chloride 0.9% 1,000 ML 999 ML IV (00:01)
--- NOTE | 2024-04-29 01:40 | PC.NURSE ---
At 0000, patients BP was 70/43 but asymptomatic. Patient placed in trendelenburg. Dr. Winters notified and ordered a 1 liter bolus of NS. At 0025, patients BP was 60/38. At approximately 0045 Dr. Winters ordered to transfer patient to ICU. Report called to Maynor in ICU. Patient transferred to ICU. Attempted to contact significant other but he did not answer. Patient's aunt, who was listed in the patient's PHI, was contacted and notified of patient's condition and transfer to ICU.
[2024-04-29] MEDS: norepinephrine 4 MG/250 ML BAG 30 MG IV (01:45)
[2024-04-29] MEDS: sodium chloride 0.9% 1,000 ML 100 ML IV (03:33)
[2024-04-29] MEDS: piperacillin-tazobactam 3.375 GM in sodium chloride 0.9% (plus) 50 ML IV ×3 (04:30→18:31)
[2024-04-29] MEDS: clindamycin 900 MG/50 ML PREMIX 100 MG IV ×3 (05:00→18:16)
[2024-04-29 06:14] LABS: Hematocrit 30.6 % (36-47); Mean Corpuscular HGB Conc 30.4 g/dL (30-55); Mean Corpuscular Hemoglobin 30.9 pg (27-33); Mean Corpuscular Volume 101.7 fl (85-98); Mean Platelet Volume 9.6 fL (7.4-10.4); Platelet Count 299 10^3/cmm (157-399); Red Blood Count 3.01 10^6/uL (3.85-5.65); Red Cell Distribution Width 14.6 % (12.1-15.1); White Blood Count 15.89 10^3/uL (3.29-11.43)
[2024-04-29 06:30] LABS: Anion Gap 15.8 (5-19); Blood Urea Nitrogen 25 mg/dL (8-23); Calcium 8.1 mg/dL (8.5-10.5); Carbon Dioxide 20 mmol/L (22-29); Chloride 106 mmol/L (98-107); Glomerular Filtration Rate 84.2 mL/min (90-130); Glucose 112 mg/dL (65-115); Magnesium 1.4 mg/dL (1.7-2.3); Osmolality Calculated 291 mOsm/kg (285-295); Phosphorus 4.8 mg/dL (2.5-4.5); Potassium 3.8 mmol/L (3.5-5.1); Sodium 138 mmol/L (136-145)
[2024-04-29 06:55] LABS: Slide Review Slide Review Perform
[2024-04-29 06:56] LABS: Absolute Eosinophils 0.2 10^3/cmm (0.0-0.7); Band Neutrophils Absolute 2.4 10^3/cmm (0.0-1.2); Eosinophils 1 %; Lymphocytes 5 %; Lymphocytes Absolute 1.1 10^3/cmm (1.2-3.4); Total Cells Counted 100 (0-100)
[2024-04-29 06:57] LABS: Absolute Neutrophil 14.5 10^3/cmm (1.4-6.5); Absolute Segmented Neutrophil 12.1 10/cmm (1.6-7.1); Macrocytosis 1+; Monocytes Absolute 0.2 10^3/cmm (0.1-0.6); Platelet Estimate Normal (Normal); Segmented Neutrophils 76 %
[2024-04-29 07:44] LABS: Glucose Point of Care 102 mg/dL (70-110)
[2024-04-29] MEDS: morphine 4 mg/mL SDV 1 mL 2 MG IVP (07:49)
[2024-04-29] MEDS: magnesium sulfate premix 2 GM/50 ML PIGGYBACK IV (08:54)
[2024-04-29] MEDS: pantoprazole 40 mg SDV IVP ×2 (08:55→17:26)
[2024-04-29] MEDS: sennosides-docusate Tablet 1 TAB PO (08:55)
[2024-04-29] MEDS: potassium chloride ER 20 mEq Tablet 40 MEQ PO (08:55)
--- NOTE | 2024-04-29 11:16 | PC.SOCIAL ---
IMM Update Pg. 2 of IMM updated and reviewed with life partner, who verbalized understanding. Copy provided.
[2024-04-29] MEDS: vancomycin 1,250 MG/250 ML PIGGYBACK 250 MG IV ×2 (11:19→22:24)
--- NOTE | 2024-04-29 11:42 | P.PN_ITS ---
Subjective 2 Subjective: Is n.p.o. Levophed at 4 mics She had to be transferred to ICU because of low blood pressure Currently resting well White count 15,000 No fever this morning Leukocytosis with bandemia Potassium and magnesium replenished Vitals/I&O/Wt Last Vital Signs Temp 99.1 F 04/29/24 08:00 Pulse 76 04/29/24 08:59 Resp 18 04/29/24 08:59 BP 138/66 04/29/24 08:00 Pulse Ox 96 04/29/24 08:59 O2 Del Method Nasal Cannula 04/29/24 08:59 O2 Flow Rate 3 04/29/24 08:59 04/28/24 04/29/24 04/29/24 22:59 06:59 14:59 Intake Total 1350 / 1350 2322.5 / 3672.5 50 / 50 Output Total 350 / 350 350 / 700 Balance 1000 / 1000 1972.5 / 2972.5 50 / 50 Weight last 48 hrs Weight 79.968 kg Weight 81.647 kg Weight 81.647 kg Physical Exam 2 Narrative: Left leg erythema Significant ulcers noticed on sacral area Hip area with joint contracture, Currently on Levophed at 4 mics Hemodynamically stable Sinus rhythm Currently on 3 L nasal cannula Garber catheter in place S1, S2 sinus rhythm Urinary Catheter Management: Garber: Cath Placed During This Visit: yes Reason for Continuing Indwelling Catheter: Accurate Measurement of Urinary Output in Critically Ill Patients Urinary Catheter Date of Insertion: 04/28/24 Urinary Catheter Time of Insertion: 19:59 Data 04/29/24 06:06 04/29/24 06:06 Micro: Microbiology 04/28/24 12:49 Blood Culture - Preliminary Blood SPECIMEN COLLECTED 04/28/24 12:49 Blood Culture - Preliminary Blood SPECIMEN COLLECTED A&P Assessment and plan (1) Noncompliance: (2) Chronic anxiety: (3) Depression with anxiety: (4) Acute hypotension: (5) Essential hypertension: (6) Pulmonary embolism: (7) Metabolic acidosis: (8) Sepsis: Qualifiers: Sepsis acute organ dysfunction status: with acute organ dysfunction S epsis type: sepsis due to unspecified organism Severe sepsis acute organ dysfunction type: unspecified Severe sepsis shock status: with septic shock Qualified Code(s): A41.9 - Sepsis, unspecified organism; R65.21 - Severe sepsis with septic shock (9) Cellulitis: (10) Septic shock: (11) Diabetic peripheral neuropathy associated with type 2 diabetes mellitus: (12) Chronic pain: (13) Non-pressure chronic ulcer of other part of left foot with fat layer exposed: (14) Non-pressure chronic ulcer of left ankle limited to breakdown of skin: (15) Hypoxemia: (16) Chronic hypercapnic respiratory failure: Plan Sepsis from cellulitis of left leg Continue all three antimicrobial IV No fever this morning Leukocytosis improved Bandemia noted Cultures results are pending Nonhealing ulcer left leg No sign of significant vascular ischemia N.p.o. for now Dr. Chirinos planning for amputation today Patient developed significant hypotension during last surgery, will monitor in ICU after her surgery as wel Septic shock: Requiring Levophed at 4 mics Continue IV fluid I may add stress dose steroids Patient may need fci placement, significant other was stating that they might opt for home health at home will evaluate after surgery Poorly controlled diabetes Sliding scale for now Attestations 2 Medical Necessity Statement*: Continue medical management in ICU Diagnoses Noncompliance Z91.19 Chronic anxiety F41.9 Depression with anxiety F41.8 Acute hypotension I95.9 Essential hypertension I10 Pulmonary embolism I26.99 Metabolic acidosis E87.20 Sepsis A41.9; R65.21 Sepsis acute organ dysfunction status: with acute organ dysfunction Sepsis type: sepsis due to unspecified organism Severe sepsis acute organ dysfunction type: unspecified Severe sepsis shock status: with septic shock Cellulitis L03.90 Septic shock A41.9; R65.21 Diabetic peripheral neuropathy associated with type 2 diabetes mellitus E11.42 Other chronic pain G89.29 Non-pressure chronic ulcer of other part of left foot with fat layer exposed L97.522 Non-pressure chronic ulcer of left ankle limited to breakdown of skin L97.321 Hypoxemia R09.02 Chronic hypercapnic respiratory failure J96.12
[2024-04-29 11:57] LABS: Glucose Point of Care 126 mg/dL (70-110)
--- NOTE | 2024-04-29 12:12 | PC.NURSE ---
3 rings and 2 neckalaces removed and given to Cheryle Stein other.
--- NOTE | 2024-04-29 13:19 | P.CONIM_ITS ---
Providers/Reason For Consult 2 Consulting Physician/Specialty*: Dr. Hakeem Chirinos, /General surgery Reason for Consult*: Chronic wound left lower extremity with edema and cellulitis Attending Physician: Alexander Chang MD Primary Care Provider: Wilner Hdez DO History of Present Illness History of Present Illness Polina Snyder is a 64 year old female with a history of right above-knee amputation and IV drug use, along with chronic nonhealing wound of the left heel, who is currently in the ICU with sepsis after presenting with high-grade fevers for 3 days. Wound care surgeon has recommended amputation. Patient reports constant sharp and throbbing left leg pain. Palpation makes the pain worse. Nothing makes pain better. Denies any nausea or vomiting Review of Systems 2 General: Reports: 10 or more systems reviewed and unremarkable except in HPI and below Medications/Allergies Home Medications Medication Instructions Recorded Confirmed Last Taken Type albuterol sulfate 90 mcg/actuation 2 inh inhalation Q4H PRN shortness 07/17/23 04/28/24 Unknown Rx aerosol inhaler of breath or wheezing #18 grams venlafaxine 150 mg 150 mg PO QAM #90 caps 12/12/23 04/28/24 04/27/24 Rx capsule,extended release 24 hr Methadone (Unknown Source) See Rx Instructions .Route .COMPLEX 12/16/23 04/28/24 Unknown History atenolol 50 mg tablet 50 mg PO BID #60 tabs 01/28/24 04/28/24 04/27/24 Rx tizanidine 4 mg tablet 4 mg PO Q8H PRN muscle spasticity 01/28/24 04/28/24 Unknown Rx #90 tabs sodium chloride 0.9 % irrigation 1 irrig irrigation BID wound care 01/29/24 04/28/24 Unknown Rx solution #250 mL amlodipine 5 mg tablet 5 mg PO DAILY #90 tabs 02/26/24 04/28/24 04/28/24 Rx fenofibrate nanocrystallized 145 145 mg PO DAILY #90 tabs 02/26/24 04/28/24 04/27/24 Rx mg tablet losartan 50 mg tablet 50 mg PO DAILY #90 tabs 02/26/24 04/28/24 04/27/24 Rx pantoprazole 40 mg tablet,delayed 40 mg PO DAILY #90 tabs 02/26/24 04/28/24 04/27/24 Rx release sodium hypochlorite 0.125 % 1 applic topical DAILY #473 mL 03/24/24 04/28/24 04/27/24 Rx solution (Dakin's Solution) diazepam 5 mg tablet 5 mg PO BID PRN anxiety #60 tabs 03/25/24 04/28/24 Unknown Rx furosemide 40 mg tablet 40 mg PO DAILY PRN Edema #90 tabs 03/25/24 04/28/24 04/27/24 Rx gabapentin 300 mg capsule 300 mg PO TID #90 caps 03/25/24 04/28/24 04/27/24 Rx metformin 500 mg tablet,extended 500 mg PO BID #60 tabs 03/25/24 04/28/24 04/28/24 Rx release 24 hr hydrocodone 7.5 mg-acetaminophen 1 tab PO Q6H PRN pain 5 days #20 04/01/24 04/28/24 Unknown Rx 325 mg tablet tabs ketorolac 10 mg tablet 10 mg PO Q8H PRN pain #15 tabs 04/08/24 04/28/24 Unknown Rx lidocaine-prilocaine 2.5 %-2.5 % 1 applic topical BID 04/28/24 04/28/24 04/27/24 History topical cream nystatin 100,000 unit/gram topical 1 applic topical TID 04/28/24 04/28/24 Unknown History powder Allergies Allergy/AdvReac Type Severity Reaction Status Date / Time nalbuphine Allergy Unknown sick to Verified 03/25/24 09:22 stomach adhesive tape Allergy rash Verified 03/25/24 09:22 amitriptyline Allergy Unknown Verified 03/25/24 09:22 morphine Allergy ADR-Vomitin Verified 03/25/24 09:22 g nitrofurantoin Allergy ADR-Vomitin Verified 03/25/24 09:22 [From Macrobid] g Sulfa (Sulfonamide Allergy Itch all Verified 03/25/24 09:22 Antibiotics) over Current Medications Generic Name Dose Route Start Last Admin Trade Name Freq PRN Reason Stop Dose Admin Sodium Chloride 1,000 mls @ 100 mls/hr 04/28/24 17:03 04/29/24 03:33 Sodium Chloride 0.9% IV 100 mls/hr .Q10H RANJIT Administration Sodium Chloride 1,000 mls @ 100 mls/hr 04/28/24 18:30 04/29/24 00:06 Sodium Chloride 0.9% IV Not Given .Q10H RANJIT Clindamycin HCl/Dextrose 900 mg in 50 mls @ 100 mls/hr 04/28/24 19:00 04/29/24 12:51 Cleocin IV Infused Q8H RANJIT Infusion Protocol Piperacillin Sod/Tazobactam 50 mls @ 12.5 mls/hr 04/29/24 03:00 04/29/24 11:07 Sod 3.375 gm/ Sodium Chloride IV 12.5 mls/hr Q8H RANJIT Administration Norepinephrine Bitartrate 4 mg in 250 mls @ 0 mls/hr 04/29/24 01:00 04/29/24 12:51 Levophed IV 4 mcg/min .Q0M RANJIT 15 mls/hr Titration Protocol Per Protocol Vancomycin/PEG/NADA/Lysine/Water 1,250 mg in 250 mls @ 250 mls/hr 04/29/24 11:00 04/29/24 12:51 Vancocin IV Infused Q12H RANJIT Infusion Insulin Human Lispro 0 unit 04/29/24 08:00 04/29/24 11:30 Insulin Lispro 100 Unit/1 Ml SUBCUT Not Given TIDWM [facility] Protocol Ketorolac Tromethamine 15 mg 04/28/24 18:29 04/28/24 19:37 Ketorolac 30 Mg/Ml Inj IVP 05/03/24 18:29 15 mg Q6H PRN Administration leg pain - REFRACTORY Morphine Sulfate 2 mg 04/28/24 17:03 04/29/24 07:49 Morphine 4 Mg/Ml Sdv 1 Ml IVP 2 mg Q4H PRN Administration SEVERE PAIN Pantoprazole Sodium 40 mg 04/29/24 09:00 04/29/24 08:55 Pantoprazole 40 Mg Sdv IVP 40 mg BID RANJIT Administration Senna/Docusate Sodium 1 tab 04/29/24 09:00 04/29/24 08:55 Sennosides-Docusate Tablet PO 1 tab DAILY RANJIT Administration PFSH Acute 2 PFSH: Medical History AMS (altered mental status) COPD (chronic obstructive pulmonary disease) Metabolic encephalopathy Degenerative joint disease of left knee Closed fracture of left distal femur Hypertension Closed femur fracture Venous stasis ulcer Cellulitis Diabetic neuropathy associated with type 2 diabetes mellitus Diastolic CHF Anemia Substance abuse Depression with anxiety Chronic pain History of DVT of lower extremity post-operative Hyperlipidemia Hypertension History of cardioversion history of SVT vs for other arrhythmia Methamphetamine use Diabetes mellitus, type II Kmphlky-Ptwsp-Tzede disease-like deformity of foot right Lung cancer Torticollis, acquired Has had good results with Botox in the past Lumbar radiculopathy Cervical post-laminectomy syndrome Surgical History Status post above-knee amputation of right lower extremity Hx of neck surgery x 2, posterior laminectomy and cervical fusion with hardware in place, limited ROM neck at baseline Hx of total knee replacement (~2010) Right History of arthroplasty of left knee (~1976) History of partial hysterectomy Hx of dilation and curettage Hx of tubal ligation Hx of appendectomy Family History Family/Other Hypertension Depression Anxiety Diabetes Father Aneurysm Mother Hypertension Brother Diabetes Sister Diabetes Social History Smoking and tobacco/nicotine status: current every day tobacco/nicotine user Alcohol intake: never Substance/Drug Use: current Substance/Drug use frequency: few times a month Additional social history: unknown if patient continues to smoke, documented to smoke previously Marital status: Female Reproductive History: Spontaneous abortions: No Vitals/I&O/Wt Last Vital Signs Temp 99.1 F 04/29/24 08:00 Pulse 85 04/29/24 12:00 Resp 17 04/29/24 12:00 BP 107/65 04/29/24 12:00 Pulse Ox 100 04/29/24 12:00 O2 Del Method Nasal Cannula 04/29/24 12:00 O2 Flow Rate 2.5 04/29/24 12:00 04/28/24 04/29/24 04/29/24 22:59 06:59 14:59 Intake Total 1350 / 1350 2322.5 / 3672.5 547.125 / 547.125 Output Total 350 / 350 350 / 700 700 / 700 Balance 1000 / 1000 1972.5 / 2972.5 -152.875 / -152.875 Weight last 48 hrs Weight 176 lb 4.8 oz Weight 180 lb Weight 180 lb Physical Exam 2 Narrative: General : Patient is well developed , no acute distress, oriented x3 Head : Normal cephalic, a-traumatic. Ears : Pinnae and external canal are normal. Hearing is normal. Eyes : PERRLA, Sclera and injection are normal. No conjunctival discharge. Nose : Mucous membranes are without erythema. Throat : buccal mucosa is normal, gums are without significant recession or hypertrophy. Lungs : Equal chest rise bilaterally, no use of accessory muscles, trachea is midline. Cor : Rate and rhythm are normal. Abdomen : Soft, ND, NT, no g/r/m Extremities : Right AKA, chronic ulcer left heel with erythema and edema to left leg Back : non-tender to palpation, no CVA tenderness. Neuro : CN II - XII intact, Upper and lower extremities have equal and full strength Urinary Catheter Management: Garber: Cath Placed During This Visit: yes Reason for Continuing Indwelling Catheter: Accurate Measurement of Urinary Output in Critically Ill Patients Urinary Catheter Date of Insertion: 04/28/24 Urinary Catheter Time of Insertion: 19:59 Data 04/29/24 06:06 04/29/24 06:06 Micro: Microbiology 04/28/24 12:49 Blood Culture - Preliminary Blood SPECIMEN COLLECTED 04/28/24 12:49 Blood Culture - Preliminary Blood SPECIMEN COLLECTED A&P Assessment and plan (1) Cellulitis: (2) Septic shock: (3) Non-pressure chronic ulcer of left heel and midfoot with fat layer exposed: Plan Left guillotine below-knee amputation The risks and benefits of the procedure, including but not limited to, bleeding, infection, pain, phantom limb syndrome, , the fact that in the upcoming future she will need a completion BKA, possibility of progressing to above-knee amputation, were explained to the patient. She is understand the risks and wishes to proceed Coding Level of Care Code 54799 Diagnoses Cellulitis L03.90 Septic shock A41.9; R65.21 Non-pressure chronic ulcer of left heel and midfoot with fat layer exposed L97.422
[2024-04-29] MEDS: ketorolac 30 mg/mL INJ 15 MG IVP (13:45)
--- NOTE | 2024-04-29 14:46 | P.ANESASSM_ITS ---
Pre-Anesthetic Assessment Height/Weight: Height 1.68 m Weight 79.968 kg Temp Pulse Resp BP Pulse Ox O2 Del Method O2 Flow Rate 98.9 F 78 17 137/76 93 Nasal Cannula 2.5 04/29/24 13:00 04/29/24 14:00 04/29/24 14:00 04/29/24 14:00 04/29/24 14:00 04/29/24 14:00 04/29/24 14:00 Preop Diagnosis: Osteomyelitis Operation Date: 04/29/24 14:00 Proposed Procedures p BKA (Below Knee Amputation)(Left) - Hakeem Chirinos DO Familial anesthetic complications: none Was Beta Lester taken within 24 hours: N/A Last intake: Intake Last Liquid Date 04/29/24 Last Liquid Time 09:00 Last Solid Date 04/28/24 Last Solid Time 22:00 Social Tobacco (History of polysubstance abuse 03/11 + meth, benzo) Exam alert, oriented x 3, clear to auscultation bilaterally and regular rate & rhythm Airway Submandibular: within normal limits Cervical ROM: within normal limits Mallampati: Class I Dentition: false Pulmonary Chronic Obstructive Pulmonary Disease Lung Cancer CV/HEM Coronary Artery Disease, Congestive Heart Failure, Deep Vein Thrombosis (PE) and Hypertension 06/13/23 ECHO CONCLUSIONS Normal left ventricular size and systolic function, EF 58 %. No regional wall motion abnormalities. Mild left ventricular hypertrophy. (Echo contrast - Optison was used to delineate the endocardium and to estimate the LV ejection fraction) Normal RV size with a slightly diminished ejection fraction. Mild biatrial enlargement Thickened aortic valve. No pericardial effusion Technically difficult study. Kidney Stones Hepatic None reported GI Gastroesophageal Reflux Disease Metabolic Diabetes Mellitus and Hyperlipidemia Musc/skel Weakness (wheel chair use) Neuropsych Anxiety, Deficit, Depression and Neuropathy Anesthetic Plan ASA status: 4 Anesthesia: General (LMA) Other: Sepsis, Diabetic Ulcers, Levophed gtt. Medications/Allergies Home Medications Medication Instructions Recorded Confirmed Last Taken Type albuterol sulfate 90 mcg/actuation 2 inh inhalation Q4H PRN shortness 07/17/23 04/28/24 Unknown Rx aerosol inhaler of breath or wheezing #18 grams venlafaxine 150 mg 150 mg PO QAM #90 caps 12/12/23 04/28/24 04/27/24 Rx capsule,extended release 24 hr Methadone (Unknown Source) See Rx Instructions .Route .COMPLEX 12/16/23 04/28/24 Unknown History atenolol 50 mg tablet 50 mg PO BID #60 tabs 01/28/24 04/28/24 04/27/24 Rx tizanidine 4 mg tablet 4 mg PO Q8H PRN muscle spasticity 01/28/24 04/28/24 Unknown Rx #90 tabs sodium chloride 0.9 % irrigation 1 irrig irrigation BID wound care 01/29/24 04/28/24 Unknown Rx solution #250 mL amlodipine 5 mg tablet 5 mg PO DAILY #90 tabs 02/26/24 04/28/24 04/28/24 Rx fenofibrate nanocrystallized 145 145 mg PO DAILY #90 tabs 02/26/24 04/28/24 04/27/24 Rx mg tablet losartan 50 mg tablet 50 mg PO DAILY #90 tabs 02/26/24 04/28/24 04/27/24 Rx pantoprazole 40 mg tablet,delayed 40 mg PO DAILY #90 tabs 02/26/24 04/28/24 04/27/24 Rx release sodium hypochlorite 0.125 % 1 applic topical DAILY #473 mL 03/24/24 04/28/24 04/27/24 Rx solution (Dakin's Solution) diazepam 5 mg tablet 5 mg PO BID PRN anxiety #60 tabs 03/25/24 04/28/24 Unknown Rx furosemide 40 mg tablet 40 mg PO DAILY PRN Edema #90 tabs 03/25/24 04/28/24 04/27/24 Rx gabapentin 300 mg capsule 300 mg PO TID #90 caps 03/25/24 04/28/24 04/27/24 Rx metformin 500 mg tablet,extended 500 mg PO BID #60 tabs 03/25/24 04/28/24 04/28/24 Rx release 24 hr hydrocodone 7.5 mg-acetaminophen 1 tab PO Q6H PRN pain 5 days #20 04/01/24 04/28/24 Unknown Rx 325 mg tablet tabs ketorolac 10 mg tablet 10 mg PO Q8H PRN pain #15 tabs 04/08/24 04/28/24 Unknown Rx lidocaine-prilocaine 2.5 %-2.5 % 1 applic topical BID 04/28/24 04/28/24 04/27/24 History topical cream nystatin 100,000 unit/gram topical 1 applic topical TID 04/28/24 04/28/24 Unknown History powder Allergies Allergy/AdvReac Type Severity Reaction Status Date / Time nalbuphine Allergy Unknown sick to Verified 03/25/24 09:22 stomach adhesive tape Allergy rash Verified 03/25/24 09:22 amitriptyline Allergy Unknown Verified 03/25/24 09:22 morphine Allergy ADR-Vomitin Verified 03/25/24 09:22 g nitrofurantoin Allergy ADR-Vomitin Verified 03/25/24 09:22 [From Macrobid] g Sulfa (Sulfonamide Allergy Itch all Verified 03/25/24 09:22 Antibiotics) over Current Medications Generic Name Dose Route Start Last Admin Trade Name Freq PRN Reason Stop Dose Admin Sodium Chloride 1,000 mls @ 100 mls/hr 04/28/24 17:03 04/29/24 03:33 Sodium Chloride 0.9% IV 100 mls/hr .Q10H RANJIT Administration Sodium Chloride 1,000 mls @ 100 mls/hr 04/28/24 18:30 04/29/24 00:06 Sodium Chloride 0.9% IV Not Given .Q10H RANJIT Clindamycin HCl/Dextrose 900 mg in 50 mls @ 100 mls/hr 04/28/24 19:00 04/29/24 12:51 Cleocin IV Infused Q8H RANJIT Infusion Protocol Piperacillin Sod/Tazobactam 50 mls @ 12.5 mls/hr 04/29/24 03:00 04/29/24 11:07 Sod 3.375 gm/ Sodium Chloride IV 12.5 mls/hr Q8H RANJIT Administration Norepinephrine Bitartrate 4 mg in 250 mls @ 0 mls/hr 04/29/24 01:00 04/29/24 12:51 Levophed IV 4 mcg/min .Q0M RANJIT 15 mls/hr Titration Protocol Per Protocol Vancomycin/PEG/NADA/Lysine/Water 1,250 mg in 250 mls @ 250 mls/hr 04/29/24 11:00 04/29/24 12:51 Vancocin IV Infused Q12H RANJIT Infusion Insulin Human Lispro 0 unit 04/29/24 08:00 04/29/24 11:30 Insulin Lispro 100 Unit/1 Ml SUBCUT Not Given TIDWM RANJIT Protocol Ketorolac Tromethamine 15 mg 04/28/24 18:29 04/29/24 13:45 Ketorolac 30 Mg/Ml Inj IVP 05/03/24 18:29 15 mg Q6H PRN Administration leg pain - REFRACTORY Morphine Sulfate 2 mg 04/28/24 17:03 04/29/24 07:49 Morphine 4 Mg/Ml Sdv 1 Ml IVP 2 mg Q4H PRN Administration SEVERE PAIN Pantoprazole Sodium 40 mg 04/29/24 09:00 04/29/24 08:55 Pantoprazole 40 Mg Sdv IVP 40 mg BID RANJIT Administration Senna/Docusate Sodium 1 tab 04/29/24 09:00 04/29/24 08:55 Sennosides-Docusate Tablet PO 1 tab DAILY RANJIT Administration PFS Anesthesia Medical History AMS (altered mental status) COPD (chronic obstructive pulmonary disease) Metabolic encephalopathy Degenerative joint disease of left knee Closed fracture of left distal femur Hypertension Closed femur fracture Venous stasis ulcer Cellulitis Diabetic neuropathy associated with type 2 diabetes mellitus Diastolic CHF Anemia Substance abuse Depression with anxiety Chronic pain History of DVT of lower extremity post-operative Hyperlipidemia Hypertension History of cardioversion history of SVT vs for other arrhythmia Methamphetamine use Diabetes mellitus, type II Citmjmu-Aufgy-Kvipv disease-like deformity of foot right Lung cancer Torticollis, acquired Has had good results with Botox in the past Lumbar radiculopathy Cervical post-laminectomy syndrome Surgical History Status post above-knee amputation of right lower extremity Hx of neck surgery x 2, posterior laminectomy and cervical fusion with hardware in place, limited ROM neck at baseline Hx of total knee replacement (~2010) Right History of arthroplasty of left knee (~1976) History of partial hysterectomy Hx of dilation and curettage Hx of tubal ligation Hx of appendectomy Family History Family/Other Hypertension Depression Anxiety Diabetes Father Aneurysm Mother Hypertension Brother Diabetes Sister Diabetes Social History Smoking and tobacco/nicotine status: current every day tobacco/nicotine user Alcohol intake: never Substance/Drug Use: current Substance/Drug use frequency: few times a month Additional social history: unknown if patient continues to smoke, documented to smoke previously Marital status: Female Reproductive History Spontaneous abortions: No Data Anesthesia 04/29/24 06:06 04/29/24 06:06 Short CBC 04/28/24 04/29/24 Range/Units 12:49 06:06 WBC 23.42 H 15.89 H (3.29-11.43) 10^3/uL Hgb 11.60 9.30 L (11.27-16.99) g/dL Hct 37.4 30.6 L (36-47) % MCV 99.7 H 101.7 H (85-98) fl Plt Count 360 299 (157-399) 10^3/cmm Neut % (Auto) 93.0 % Neut # (Auto) 21.81 H (1.8-7.7) 10^3/uL BMP 04/28/24 04/29/24 12:49 06:06 Sodium 133 L 138 Potassium 4.9 3.8 Chloride 97 L 106 Carbon Dioxide 23 20 L BUN 29 H 25 H Creatinine 0.9 0.7 Glucose 130 H 112 Calcium 9.1 8.1 L Liver Function 04/28/24 Range/Units 12:49 Total Bilirubin 1.3 H (0.15-1.2) mg/dL AST 15 (0-32) U/L ALT 10 (0-33) U/L Alkaline Phosphatase 164 H (35-105) U/L Albumin 3.0 L (3.5-5.2) g/dL Urine 04/28/24 Range/Units 17:34 Urine Color Dark yellow (Yellow) Urine Appearance Slightly cloudy (CLEAR) Urine pH 5 (5-7) Ur Specific [place] 1.010 (1.005-1.030) Urine Protein Trace (Negative) Urine Glucose (UA) Norm (Normal) Urine Ketones 1+ H (Negative) Urine Nitrate Negative (Negative) Urine Bilirubin 1+ H (Negative) Ur Leukocyte Esterase 1+ H (Negative) Urine RBC None (0-2) /hpf Urine WBC 5-10 H (0-5) /hpf Microbiology 04/28/24 12:49 Blood Culture - Preliminary Blood NEGATIVE TO DATE 04/28/24 12:49 Blood Culture - Preliminary Blood NEGATIVE TO DATE Cardiac Studies: 2 Echocardiogram 06/13/23 Echocardiogram Limited Views 12/27/20 Echocardiogram Ultrasound 01/01/21
--- NOTE | 2024-04-29 15:01 | PC.NURSE ---
to OR with OR team
[2024-04-29] MEDS: heparin 5,000 unit/mL INJ 1 mL 5000 UNIT SUBCUT (15:27)
--- NOTE | 2024-04-29 15:52 | PM.OP ---
Operative Report Date of procedure: April 29, 2024 Pre-op diagnosis: Atherosclerosis of the left lower extremity with chronic nonhealing wound, cellulitis and edema Post-op diagnosis: same Procedure done: Guillotine left below knee amputation Implants: None Surgeon: Hakeem Chirinos DO Anesthesia: General Estimated blood loss (mL): 50 Complications: None apparent Brief History: This is a 64-year-old female with a history of IV drug abuse that was found to have atherosclerosis of her left lower extremity along with a chronic wound this not healing despite extensive treatment by a wound care physician, along with acute cellulitis and edema. Guillotine left below-knee amputation was indicated with plans for completion left below-knee amputation in the future after infection and edema have drained. The risk and benefits explained and documented. Procedure: Patient was wheeled operative room and intubated on the hospital bed in the supine position. He was then transferred to the OR table in the supine position. The left lower extremity was inspected prepped and draped in usual sterile fashion. Timeout was performed. All present were in agreement. A tourniquet was placed around the thigh and inflated to 300 mmHg. A 10 blade scalpel was then used to make a circumferential incision around the leg about the gangrene. A pencil was then used to cut through the tibia and fibula. An amputation knife was then used to cut through muscle and other soft tissue. Bleeding vessels were controlled with hemostats and then ligated with 0 silk sutures. Further hemostasis was achieved with electrocautery. Tourniquet was let down. Specimen was passed off. Hemostasis was noted. A multilayer dressing consisting of Adaptic, 4 x 4's, 4 x 4's, Curlex, laparotomy towel and Coban was applied. Patient tolerated procedure well.
--- NOTE | 2024-04-29 16:14 | NUR.SHIFT ---
pt back from OR. report from anesthesia
[2024-04-29] MEDS: HYDROmorphone 1 mg/mL INJ 1 mL IVP ×2 (16:22→21:24)
[2024-04-29 17:02] LABS: Glucose Point of Care 137 mg/dL (70-110)
--- NOTE | 2024-04-29 17:03 | ANE.PACU2 ---
Inpatient post-anesthesia follow up: Airway intact: Yes Vital signs: Temperature 97.2 F Pulse Rate 81 Respiratory Rate 12 Blood Pressure 104/72 Pulse Oximetry 93 Oxygen Delivery Me thod Nasal Cannula Oxygen Flow Rate 3 Fraction of Inspir ed Oxygen Hydration adequate: Yes Nausea and vomiting: No Pain level: 1 Mental status: Altered (sedated) Additional Comments: Extubated (LMA) to ICU
[2024-04-29] MEDS: sodium hypochlorite 0.125% Btl 473 mL 1 APPLIC TOPICAL (17:26)
[2024-04-29] MEDS: norepinephrine 4 MG/250 ML BAG 15 MG IV (17:29)
[2024-04-29] MEDS: methadone 10 mg Tablet 20 MG PO (18:30)
--- NOTE | 2024-04-29 19:47 | PC.NURSE ---
Levophed Titration: Upon arrival to shift levophed was running at 6mcg/min. MAR updated to reflect dose.
[2024-04-29 20:55] LABS: Glucose Point of Care 292 mg/dL (70-110)
[2024-04-29] MEDS: insulin lispro 100 unit/1 mL SUBCUT (21:55)
--- NOTE | 2024-04-29 21:58 | PC.NURSE ---
Insulin Sliding Scale change: Patients's blood sugar was 292 with no insulin ordered. Dr. Winters was contacted and gave telephone orders to switch to sliding scale AC+HS and give the evening dose per protocol.
[2024-04-30] VITALS (99 sets, daily range): BP systolic 75–150; BP diastolic 42–84; PULSE 53–99; RESP 11–23; TEMP 36.4–36.8; O2SAT 64–100; BMI 31.6
[2024-04-30 01:48] LABS: Glucose Point of Care 274 mg/dL (70-110)
[2024-04-30] MEDS: HYDROmorphone 1 mg/mL INJ 1 mL IVP ×2 (01:48→06:25)
[2024-04-30] MEDS: clindamycin 900 MG/50 ML PREMIX 100 MG IV ×3 (02:09→18:19)
[2024-04-30] MEDS: sodium chloride 0.9% 1,000 ML 100 ML IV ×2 (02:09→14:48)
[2024-04-30] MEDS: piperacillin-tazobactam 3.375 GM in sodium chloride 0.9% (plus) 50 ML IV ×3 (02:10→18:20)
[2024-04-30 05:38] LABS: Basophils % 0.1 %; Hematocrit 30.5 % (36-47); Lymphocytes # 0.7 10^3/uL (0.8-4.8); Lymphocytes % 4.9 %; Mean Corpuscular HGB Conc 30.2 g/dL (30-55); Mean Corpuscular Hemoglobin 30.2 pg (27-33); Mean Platelet Volume 9.9 fL (7.4-10.4); Monocytes # 0.5 10^3/uL (0.2-0.9); Monocytes % 3.3 %; Neutrophils # 12.34 10^3/uL (1.8-7.7); Neutrophils % 89.9 %; Nucleated Red Blood Cells % 0 %; Platelet Count 306 10^3/cmm (157-399); Red Blood Count 3.05 10^6/uL (3.85-5.65); Red Cell Distribution Width 14.6 % (12.1-15.1); White Blood Count 13.74 10^3/uL (3.29-11.43)
[2024-04-30 05:57] LABS: Anion Gap 14.7 (5-19); Blood Urea Nitrogen 22 mg/dL (8-23); Calcium 8.2 mg/dL (8.5-10.5); Carbon Dioxide 21 mmol/L (22-29); Chloride 107 mmol/L (98-107); Glomerular Filtration Rate 100.6 mL/min (90-130); Glucose 200 mg/dL (65-115); Osmolality Calculated 295 mOsm/kg (285-295); Potassium 4.7 mmol/L (3.5-5.1); Sodium 138 mmol/L (136-145)
[2024-04-30 06:24] LABS: Slide Review Slide Review Perform
[2024-04-30 09:02] LABS: Glucose Point of Care 156 mg/dL (70-110)
[2024-04-30] MEDS: insulin lispro 100 unit/1 mL SUBCUT ×2 (09:16→13:42)
[2024-04-30] MEDS: pantoprazole 40 mg SDV IVP ×2 (09:16→18:20)
[2024-04-30] MEDS: sennosides-docusate Tablet 1 TAB PO (09:16)
--- NOTE | 2024-04-30 10:04 | PM.PN ---
Subjective Subjective: This morning patient was drowsy He was on minimal dose of Levophed On 3 L nasal cannula Requested ABG currently on 3 different antibiotics 3 fluids No postoperative complication other than mild hypotension Hemoglobin 9.2 Vitals/I&O/Wt Last Vital Signs Temp 98.0 F 04/30/24 04:00 Pulse 99 04/30/24 09:41 Resp 18 04/30/24 09:41 BP 95/56 04/30/24 06:30 Pulse Ox 98 04/30/24 09:41 O2 Del Method Nasal Cannula 04/30/24 09:41 O2 Flow Rate 3 04/30/24 09:41 04/29/24 04/30/24 04/30/24 22:59 06:59 14:59 Intake Total 609.875 / 3069.263 8699.125 / 2557.125 Output Total 350 / 1300 950 / 2250 Balance 259.875 / -143.000 450.125 / 307.125 Weight last 48 hrs Weight 88.961 kg Weight 79.968 kg Weight 81.647 kg Weight 81.647 kg Physical Exam Narrative: Morning patient is extremely drowsy Quiring low-dose Levophed On 3 L Saturating well Abdomen soft Left below-knee amputation stump covered with dressing Neuroexam is limited No signs of respiratory distress Urinary Catheter Management: Garber: Cath Placed During This Visit: yes Reason for Continuing Indwelling Catheter: Accurate Measurement of Urinary Output in Critically Ill Patients Urinary Catheter Date of Insertion: 04/28/24 Urinary Catheter Time of Insertion: 19:59 Data 04/30/24 05:09 04/30/24 05:09 Micro: Microbiology 04/28/24 12:49 Blood Culture - Preliminary Blood NEGATIVE TO DATE 04/28/24 12:49 Blood Culture - Preliminary Blood NEGATIVE TO DATE A&P Assessment and plan (1) Depression with anxiety: (2) Noncompliance: (3) Postoperative hypotension: (4) Diabetes mellitus, type II: Qualifiers: Diabetes mellitus [facility] insulin use: without [facility] use Diabetes mellitus complication status: with circulatory complication Diabetes mellitus complication detail: with peripheral angiopathy without gangrene Qualified Code(s): E11.51 - Type 2 diabetes mellitus with diabetic peripheral angiopathy without gangrene (5) GERD without esophagitis: (6) Sepsis: (7) Cellulitis: (8) Septic shock: (9) Right above-knee amputee: (10) Diabetic neuropathy associated with type 2 diabetes mellitus: (11) Hypoxemia: (12) Chronic hypercapnic respiratory failure: (13) Amputation of left lower extremity below knee: Plan Postop day 1 Left below-knee amputation Patient gets drowsy after getting opioids She takes methadone once daily at home I have requested nurse to only use methadone for now onwards Will request ABG this morning Septic shock: Still requiring low-dose Levophed Continue antibiotics Cultures negative to date We are recommending [facility] placement however patient and significant other are reluctant to go to [facility] for now Patient need to stay in the ICU for 1 more day Opioid dependence uses methadone Significant depression: Patient will need antidepressant therapy intervention as well Diabetic Consistent carb diet with insulin sliding scale, hemoglobin A1c 7 COPD currently requiring 3 L Attestations Medical Necessity Statement*: Continue medical management in ICU Diagnoses Depression with anxiety F41.8 Noncompliance Z91.19 Postoperative hypotension I95.81 Type 2 diabetes mellitus with diabetic peripheral angiopathy without gangrene, without long-term current use of insulin E11.51 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
[2024-04-30] MEDS: methadone 10 mg Tablet 20 MG PO ×2 (10:39→22:42)
[2024-04-30] MEDS: vancomycin 1,250 MG/250 ML PIGGYBACK 250 MG IV (10:47)
[2024-04-30 10:53] LABS: ABG PCO2 42.9 mmHg (35-45); ABG PH Result 7.32 (7.35-7.45); Arterial Blood Gas Hematocrit 29.2 % (37-47); Base Excess ABG -4.1 mmol/L (-2.0-2.0); Blood Gas Allen Test Pos; Blood Gas LPM 2.5 %; Blood Gas Operator Identificat GD; Blood Gas Sample Site Radial, right; Blood Gas Sample Type Arterial; HCO3 ABG 21.8 mmol/L (22-26); Oxygen Device NC; PO2 ABG 86.8 mmHg (80.0-100.0)
[2024-04-30 13:04] LABS: Glucose Point of Care 153 mg/dL (70-110)
--- NOTE | 2024-04-30 13:23 | PC.NURSE ---
Nurse observed that there is swelling above the surgery site, above the level of coban. Nurse asked the nurse who cared for this patient yesterday to assess and she states that the swelling is Greater than yesterday. Nurse has concerns for blood flow to the surgical site due to the degree of swelling and alerted Dr haywood. Dr haywood ordered to remove coban dressing ONLY and reapply more loosely.
--- NOTE | 2024-04-30 15:38 | PM.PN ---
Subjective Subjective: Patient seen and examined. She is resting comfortably in bed Vitals/I&O/Wt Last Vital Signs Temp 97.6 F 04/30/24 12:00 Pulse 82 04/30/24 14:30 Resp 20 H 04/30/24 14:30 BP 116/60 04/30/24 14:30 Pulse Ox 99 04/30/24 14:30 O2 Del Method Nasal Cannula 04/30/24 14:30 O2 Flow Rate 3 04/30/24 14:30 04/30/24 04/30/24 04/30/24 06:59 14:59 22:59 Intake Total 1450.125 / 2607.125 1550 / 1550 Output Total 950 / 2250 675 / 675 Balance 500.125 / 357.125 875 / 875 Weight last 48 hrs Weight 196 lb 2 oz Weight 176 lb 4.8 oz Weight 180 lb Physical Exam Narrative: General: No acute distress, resting comfortably Extremities: Left leg above guillotine below-knee amputation still quite edematous with pitting edema and some cellulitis Urinary Catheter Management: Garber: Cath Placed During This Visit: yes Reason for Continuing Indwelling Catheter: Accurate Measurement of Urinary Output in Critically Ill Patients Urinary Catheter Date of Insertion: 04/28/24 Urinary Catheter Time of Insertion: 19:59 Data 04/30/24 05:09 04/30/24 05:09 Micro: Microbiology 04/28/24 12:49 Blood Culture - Preliminary Blood NEGATIVE TO DATE 04/28/24 12:49 Blood Culture - Preliminary Blood NEGATIVE TO DATE A&P Assessment and plan (1) Cellulitis: (2) Septic shock: (3) Non-pressure chronic ulcer of left heel and midfoot with fat layer exposed: Plan Postoperative day #1 status post left guillotine below-knee amputation Dressing to remain in place Plans for completion left below-knee amputation once edema and infection have subsided Will check patient daily for progress Possible surgery Saturday or Saturday Medical management per hospitalist Attestations Medical Necessity Statement*: Per primary Coding Level of Care Code Acute Code for [facility] Diagnoses Cellulitis L03.90 Septic shock A41.9; R65.21 Non-pressure chronic ulcer of left heel and midfoot with fat layer exposed L97.422
--- NOTE | 2024-04-30 15:40 | PC.NURSE ---
Report received from Antony. Care assumed.
[2024-04-30] MEDS: sodium hypochlorite 0.125% Btl 473 mL 1 APPLIC TOPICAL (15:56)
[2024-04-30 17:34] LABS: Glucose Point of Care 131 mg/dL (70-110)
[2024-04-30] MEDS: tizanidine 4 mg Tablet PO (20:02)
[2024-04-30] MEDS: oxyCODONE 5 mg IR Tab/Cap PO (20:02)
[2024-04-30] MEDS: heparin 5,000 unit/mL INJ 1 mL 5000 UNIT SUBCUT (20:06)
[2024-04-30 20:11] LABS: Glucose Point of Care 83 mg/dL (70-110)
[2024-05-01] VITALS (50 sets, daily range): BP systolic 81–154; BP diastolic 50–117; PULSE 55–98; RESP 12–25; TEMP 36.4–36.8; O2SAT 88–100
[2024-05-01] MEDS: sodium chloride 0.9% 1,000 ML 100 ML IV ×3 (01:21→20:31)
[2024-05-01] MEDS: piperacillin-tazobactam 3.375 GM in sodium chloride 0.9% (plus) 50 ML IV ×3 (02:05→19:23)
[2024-05-01] MEDS: clindamycin 900 MG/50 ML PREMIX 100 MG IV ×3 (02:12→19:19)
[2024-05-01] MEDS: vancomycin 1,500 MG/300 ML PIGGYBACK 200 MG IV ×2 (04:06→22:40)
[2024-05-01 04:20] LABS: Basophils % 0.3 %; Eosinophils # 0.1 10^3/uL (0.0-0.8); Eosinophils % 0.5 %; Hematocrit 29.4 % (36-47); Lymphocytes # 1.4 10^3/uL (0.8-4.8); Lymphocytes % 11.6 %; Mean Corpuscular HGB Conc 30.6 g/dL (30-55); Mean Corpuscular Hemoglobin 31.5 pg (27-33); Mean Corpuscular Volume 102.8 fl (85-98); Mean Platelet Volume 9.7 fL (7.4-10.4); Monocytes # 0.9 10^3/uL (0.2-0.9); Monocytes % 7.6 %; Neutrophils # 9.17 10^3/uL (1.8-7.7); Neutrophils % 78.8 %; Nucleated Red Blood Cells % 0 %; Platelet Count 281 10^3/cmm (157-399); Red Blood Count 2.86 10^6/uL (3.85-5.65); Red Cell Distribution Width 14.7 % (12.1-15.1); White Blood Count 11.64 10^3/uL (3.29-11.43)
[2024-05-01 04:37] LABS: Blood Urea Nitrogen 23 mg/dL (8-23); Carbon Dioxide 24 mmol/L (22-29); Chloride 108 mmol/L (98-107); Sodium 143 mmol/L (136-145)
[2024-05-01 04:38] LABS: Calcium 7.9 mg/dL (8.5-10.5); Creatinine Clr Calc Pharmacy 106.4171; Glomerular Filtration Rate 100.6 mL/min (90-130); Glucose 81 mg/dL (65-115); Osmolality Calculated 299 mOsm/kg (285-295)
[2024-05-01] MEDS: morphine 4 mg/mL SDV 1 mL 2 MG IVP ×3 (07:12→22:38)
[2024-05-01 07:50] LABS: Glucose Point of Care 54 mg/dL (70-110)
[2024-05-01 08:01] LABS: Glucose Point of Care 68 mg/dL (70-110)
[2024-05-01] MEDS: pantoprazole 40 mg SDV IVP ×2 (08:05→17:40)
[2024-05-01] MEDS: sennosides-docusate Tablet 1 TAB PO (08:05)
[2024-05-01] MEDS: heparin 5,000 unit/mL INJ 1 mL 5000 UNIT SUBCUT ×2 (08:05→20:28)
--- NOTE | 2024-05-01 09:03 | PC.SOCIAL ---
IMM Update Pg. 2 of IMM updated and reviewed with patient, who verbalized understanding. Copy provided.
--- NOTE | 2024-05-01 09:07 | PM.PN ---
Subjective Subjective: Patient seen and examined. She is resting comfortably Vitals/I&O/Wt Last Vital Signs Temp 97.8 F 05/01/24 07:30 Pulse 76 05/01/24 08:00 Resp 13 05/01/24 08:00 BP 139/64 05/01/24 08:00 Pulse Ox 97 05/01/24 08:00 O2 Del Method Nasal Cannula 05/01/24 07:54 O2 Flow Rate 2 05/01/24 07:54 04/30/24 05/01/24 05/01/24 22:59 06:59 14:59 Intake Total 1080 / 2630 1165 / 3795 Output Total 450 / 1125 1550 / 2675 Balance 630 / 1505 -385 / 1120 Weight last 48 hrs Weight 178 lb 8 oz Weight 196 lb 2 oz Physical Exam Narrative: General: No acute distress, resting comfortably Extremities: Left leg above guillotine below-knee amputation still quite edematous with pitting edema and some cellulitis Urinary Catheter Management: Garber: Cath Placed During This Visit: yes Reason for Continuing Indwelling Catheter: Accurate Measurement of Urinary Output in Critically Ill Patients Urinary Catheter Date of Insertion: 04/28/24 Urinary Catheter Time of Insertion: 19:59 Data 05/01/24 04:05 05/01/24 04:05 A&P Assessment and plan (1) Cellulitis: (2) Septic shock: (3) Non-pressure chronic ulcer of left heel and midfoot with fat layer exposed: Plan Postoperative day #2 status post left guillotine below-knee amputation Dressing to remain in place Plans for completion left below-knee amputation once edema and infection have subsided Will check patient daily for progress Possible surgery Saturday or Saturday Medical management per hospitalist Attestations Medical Necessity Statement*: Per primary Coding Level of Care Code Acute Code for [facility] Diagnoses Cellulitis L03.90 Septic shock A41.9; R65.21 Non-pressure chronic ulcer of left heel and midfoot with fat layer exposed L97.422
[2024-05-01] MEDS: oxyCODONE 5 mg IR Tab/Cap PO ×2 (09:24→17:39)
[2024-05-01] MEDS: ketorolac 30 mg/mL INJ 15 MG IVP ×2 (11:59→19:28)
--- NOTE | 2024-05-01 12:08 | P.PN_ITS ---
Subjective 2 Subjective: This morning patient is more awake and alert Hemodynamic stable Off Levophed Currently on 2 L Passing flatus, no BM yet Will transfer out of ICU to [facility] Continuing methadone for now Patient gets more drowsy and gets low blood pressure after getting opioids H&H stable, mild leukocytosis, BMP unremarkable Will use low-dose Lasix for positive fluid balance Vitals/I&O/Wt Last Vital Signs Temp 97.8 F 05/01/24 07:30 Pulse 71 05/01/24 10:00 Resp 14 05/01/24 10:00 BP 120/69 05/01/24 10:00 Pulse Ox 97 05/01/24 10:00 O2 Del Method Nasal Cannula 05/01/24 07:54 O2 Flow Rate 2 05/01/24 07:54 04/30/24 05/01/24 05/01/24 22:59 06:59 14:59 Intake Total 1080 / 2630 1165 / 3795 885 / 885 Output Total 450 / 1125 1550 / 2675 Balance 630 / 1505 -385 / 1120 885 / 885 Weight last 48 hrs Weight 80.966 kg Weight 88.961 kg Physical Exam 2 Narrative: Awake and alert Left leg stump covered with dressing, edematous leg, Hemodynamically stable Currently on 2 L Off Levophed Pleasant calm Nonfocal neuroexam Abdomen soft Extremity contractures Gluteal wound with granulation tissue Sacral area ulcer is chronic Urinary Catheter Management: Garber: Cath Placed During This Visit: yes Reason for Continuing Indwelling Catheter: Accurate Measurement of Urinary Output in Critically Ill Patients Urinary Catheter Date of Insertion: 04/28/24 Urinary Catheter Time of Insertion: 19:59 Data 05/01/24 04:05 05/01/24 04:05 A&P Assessment and plan (1) Noncompliance: (2) Depression with anxiety: (3) Diabetic neuropathy associated with type 2 diabetes mellitus: (4) Hypoxemia: (5) Chronic hypercapnic respiratory failure: (6) Septic shock: (7) Postoperative anemia: (8) GERD without esophagitis: (9) Diabetes mellitus, type II: Qualifiers: 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: without intermediate school 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 use Diabetes mellitus complication status: with circulatory complication Diabetes mellitus complication detail: with peripheral angiopathy without gangrene Qualified Code(s): E11.51 - Type 2 diabetes mellitus with diabetic peripheral angiopathy without gangrene (10) Right above-knee amputee: (11) Amputation of left lower extremity below knee: Plan Septic shock: Resolved Off Levophed Sepsis source of infection left leg ulcer Status post below-knee amputation 04/29 Postoperative anemia noted Off Levophed Cultures negative Plan for revision likely Saturday versus Saturday Positive fluid balance low-dose Lasix this morning Positive flatus no BM yet Continue bowel regimen Garber catheter in place Continue IV antibiotics until day of discharge: Patient is getting methadone which I would increase to twice a day on as-needed basis Gets very drowsy after getting any opioids other than methadone We are recommending [facility] placement however patient and her significant other not interested at this point they are wanting home health services and discharged home Continue insulin with sliding scale for diabetes COPD currently around home oxygen requirement of 3 L Full code Transfer out of ICU to [facility] Attestations 2 Medical Necessity Statement*: Continue medical management Diagnoses Noncompliance Z91.19 Depression with anxiety F41.8 Diabetic polyneuropathy associated with type 2 diabetes mellitus E11.40 Hypoxemia R09.02 Chronic hypercapnic respiratory failure J96.12 Septic shock A41.9; R65.21 Postoperative anemia D64.9 GERD without esophagitis K21.9 Type 2 diabetes mellitus with diabetic peripheral angiopathy without gangrene, without long-term current use of insulin 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
[2024-05-01 12:35] LABS: Glucose Point of Care 69 mg/dL (70-110)
[2024-05-01] MEDS: FUROsemide 10 mg/mL SDV 2mL 20 MG IVP (12:43)
[2024-05-01] MEDS: dextrose 10% 125 ML 750 ML IV (13:05)
[2024-05-01] MEDS: ondansetron 2 mg/ML SDV 2 mL 4 MG IVP (13:05)
[2024-05-01 13:46] LABS: Glucose Point of Care 186 mg/dL (70-110)
[2024-05-01 17:35] LABS: Glucose Point of Care 89 mg/dL (70-110)
[2024-05-01] MEDS: sodium hypochlorite 0.125% Btl 473 mL 1 APPLIC TOPICAL (17:40)
[2024-05-01] MEDS: methadone 10 mg Tablet 20 MG PO (19:28)
[2024-05-01] MEDS: insulin lispro 100 unit/1 mL SUBCUT (20:28)
[2024-05-01 20:32] LABS: Glucose Point of Care 200 mg/dL (70-110)
--- NOTE | 2024-05-01 21:00 | PC.NURSE ---
Transferred to [facility] room 108 via bed. Update given to LEDY Hood at bedside.
[2024-05-02] VITALS (15 sets, daily range): BP systolic 124–157; BP diastolic 63–84; PULSE 71–92; RESP 14–24; TEMP 36.2–36.7; O2SAT 93–99
[2024-05-02 02:58] LABS: Basophils % 0.4 %; Eosinophils # 0.2 10^3/uL (0.0-0.8); Eosinophils % 1.8 %; Lymphocytes # 1.3 10^3/uL (0.8-4.8); Mean Corpuscular Hemoglobin 30.2 pg (27-33); Mean Corpuscular Volume 100.7 fl (85-98); Mean Platelet Volume 9.8 fL (7.4-10.4); Monocytes % 11.6 %; Neutrophils # 5.52 10^3/uL (1.8-7.7); Neutrophils % 66.9 %; Nucleated Red Blood Cells % 0 %; Platelet Count 291 10^3/cmm (157-399); Red Blood Count 2.98 10^6/uL (3.85-5.65); Red Cell Distribution Width 14.6 % (12.1-15.1); White Blood Count 8.25 10^3/uL (3.29-11.43)
[2024-05-02] MEDS: oxyCODONE 5 mg IR Tab/Cap PO ×3 (03:10→23:53)
[2024-05-02] MEDS: piperacillin-tazobactam 3.375 GM in sodium chloride 0.9% (plus) 50 ML IV ×3 (03:15→18:25)
[2024-05-02 03:17] LABS: Anion Gap 15.2 (5-19); Blood Urea Nitrogen 17 mg/dL (8-23); Calcium 7.8 mg/dL (8.5-10.5); Carbon Dioxide 24 mmol/L (22-29); Chloride 108 mmol/L (98-107); Creatinine Clr Calc Pharmacy 121.9619; Glomerular Filtration Rate 124.2 mL/min (90-130); Glucose 68 mg/dL (65-115); Osmolality Calculated 298 mOsm/kg (285-295); Potassium 3.2 mmol/L (3.5-5.1); Sodium 144 mmol/L (136-145)
[2024-05-02] MEDS: clindamycin 900 MG/50 ML PREMIX 100 MG IV ×3 (03:17→18:25)
[2024-05-02] MEDS: ketorolac 30 mg/mL INJ 15 MG IVP ×3 (03:35→21:45)
[2024-05-02 06:13] LABS: Glucose Point of Care 88 mg/dL (70-110)
[2024-05-02] MEDS: morphine 4 mg/mL SDV 1 mL 2 MG IVP (06:27)
[2024-05-02] MEDS: methadone 10 mg Tablet 20 MG PO ×2 (08:22→20:03)
[2024-05-02] MEDS: heparin 5,000 unit/mL INJ 1 mL 5000 UNIT SUBCUT ×2 (08:22→20:07)
[2024-05-02] MEDS: pantoprazole 40 mg SDV IVP ×2 (08:22→17:07)
[2024-05-02] MEDS: sennosides-docusate Tablet 1 TAB PO (08:22)
[2024-05-02 10:48] LABS: Glucose Point of Care 235 mg/dL (70-110)
[2024-05-02 10:48] LABS: Glucose Point of Care 120 mg/dL (70-110)
[2024-05-02] MEDS: sodium chloride 0.9% 1,000 ML 100 ML IV (11:09)
[2024-05-02] MEDS: insulin lispro 100 unit/1 mL SUBCUT ×2 (12:41→20:58)
--- NOTE | 2024-05-02 14:19 | P.PN_ITS ---
Subjective 2 Subjective: Patient seen and examined. Pain controlled Vitals/I&O/Wt Last Vital Signs Temp 98.0 F 05/02/24 12:00 Pulse 78 05/02/24 12:00 Resp 24 H 05/02/24 12:00 BP 153/84 05/02/24 12:00 Pulse Ox 93 05/02/24 12:00 O2 Del Method Room Air 05/02/24 12:00 O2 Flow Rate 2 05/02/24 08:37 05/01/24 05/02/24 05/02/24 22:59 06:59 14:59 Intake Total 1151.667 / 2086.667 1400 / 3486.667 410 / 410 Output Total 2500 / 3450 800 / 4250 Balance -1348.333 / -1363.333 600 / -763.333 410 / 410 Weight last 48 hrs Weight 184 lb 9.6 oz Weight 178 lb 8 oz Physical Exam 2 Narrative: General: No acute distress, resting comfortably Extremities: Left leg above guillotine below-knee amputation still quite edematous with pitting edema and some cellulitis Urinary Catheter Management: Garber: Cath Placed During This Visit: yes Reason for Continuing Indwelling Catheter: Accurate Measurement of Urinary Output in Critically Ill Patients Urinary Catheter Date of Insertion: 04/28/24 Urinary Catheter Time of Insertion: 19:59 Data 05/02/24 02:18 05/02/24 02:18 A&P Assessment and plan (1) Cellulitis: (2) Septic shock: (3) Non-pressure chronic ulcer of left heel and midfoot with fat layer exposed: Plan Postoperative day #3 status post left guillotine below-knee amputation Dressing to remain in place N.p.o. after midnight Completion left below-knee amputation tomorrow The risks and benefits of the procedure, including but not limited to, bleeding, infection, scar, numbness, pain, phantom limb syndrome, poor wound healing, need to convert to an above-knee amputation now or in the future, or explained to the patient. She is understanding of the risks and wishes to proceed. Medical management per hospitalist Attestations 2 Medical Necessity Statement*: Per primary Coding Level of Care Code Acute Code for [facility] Diagnoses Cellulitis L03.90 Septic shock A41.9; R65.21 Non-pressure chronic ulcer of left heel and midfoot with fat layer exposed L97.978
[2024-05-02 16:39] LABS: Glucose Point of Care 92 mg/dL (70-110)
--- NOTE | 2024-05-02 16:46 | PM.PN ---
Subjective Subjective: Patient reports pain at her surgical site. She is noted to be somewhat emotional over her illness. She denies fevers, chills, nausea or emesis. Denies bowel movement. Medications: Reviewed: Yes Vitals/I&O/Wt Last Vital Signs Temp 97.1 F L 05/02/24 15:57 Pulse 77 05/02/24 15:57 Resp 14 05/02/24 15:57 BP 124/64 05/02/24 15:57 Pulse Ox 94 05/02/24 15:57 O2 Del Method Room Air 05/02/24 15:57 O2 Flow Rate 2 05/02/24 08:37 05/02/24 05/02/24 05/02/24 06:59 14:59 22:59 Intake Total 1400 / 3486.667 410 / 410 Output Total 800 / 4250 Balance 600 / -763.333 410 / 410 Weight last 48 hrs Weight 83.733 kg Weight 80.966 kg Physical Exam Narrative: General: Patient is awake. Frail-appearing. Head: Normocephalic. Atraumatic. EOM intact. Neck: No JVD. Cardiovascular: RRR. No gallops. No murmurs. No peripheral edema. Lungs: Clear to auscultation, no use of accessory muscles, no crackles or wheezes. Skin: No jaundice. No rashes. Gluteal and sacral wound. Abdomen: Normal bowel sounds, abdomen soft and nontender. Genito Urinary: Genital exam not performed since complaints not related. Rectal: Rectal exam not performed since no symptoms indicated blood loss. Extremities: Left leg stump site is covered with dressing. Extremity is edematous. Neurological: Contractures in extremities. No myoclonus. Urinary Catheter Management: Garber: Cath Placed During This Visit: yes Reason for Continuing Indwelling Catheter: Accurate Measurement of Urinary Output in Critically Ill Patients Urinary Catheter Date of Insertion: 04/28/24 Urinary Catheter Time of Insertion: 19:59 Data 05/02/24 02:18 05/02/24 02:18 A&P Assessment and plan (1) Noncompliance: (2) Depression with anxiety: (3) Diabetic neuropathy associated with type 2 diabetes mellitus: (4) Hypoxemia: (5) Chronic hypercapnic respiratory failure: (6) Septic shock: (7) Postoperative anemia: (8) GERD without esophagitis: (9) Diabetes mellitus, type II: Qualifiers: Diabetes mellitus terminal worker insulin use: without terminal worker use Diabetes mellitus complication status: with circulatory complication Diabetes mellitus complication detail: with peripheral angiopathy without gangrene Qualified Code(s): E11.51 - Type 2 diabetes mellitus with diabetic peripheral angiopathy without gangrene (10) Right above-knee amputee: (11) Amputation of left lower extremity below knee: Plan Sepsis -Septic shock is resolved -Source: Left leg ulcer -Status post below-knee amputation 04/29 -Continue broad-spectrum antibiotics -Follow cultures -Telemetry monitoring -Additional surgical revision is required, possibly Saturday or Saturday Postoperative anemia noted -Monitor hemoglobin, transfuse if needed Hypervolemia -Stop IV fluids, may restart after she is n.p.o. again Constipation -Judicious use of opiates -Continue bowel regimen Chronic pain -Continue current pain regiment Debility and physical deconditioning -Would benefit from postacute care, however patient is reportedly already refused this with plans to return home with significant other Type 2 diabetes mellitus -Sliding-scale insulin correction COPD with chronic hypoxic respiratory failure -Not in exacerbation -Breathing treatments DVT prophylaxis: Heparin CODE STATUS: Full code Attestations Medical Necessity Statement*: Patient requires ongoing hospitalization for IV antibiotics, aggressive wound care, further surgical intervention, serial labs, and supportive care. Coding Level of Care Code Acute Code for [facility] Diagnoses Noncompliance Z91.19 Depression with anxiety F41.8 Diabetic polyneuropathy associated with type 2 diabetes mellitus E11.40 Hypoxemia R09.02 Chronic hypercapnic respiratory failure J96.12 Septic shock A41.9; R65.21 Postoperative anemia D64.9 GERD without esophagitis K21.9 Type 2 diabetes mellitus with diabetic peripheral angiopathy without gangrene, without long-term current use of insulin E11.51 Diabetes mellitus assisted insulin use: without terminal worker use Diabetes mellitus complication status: with circulatory complication Diabetes mellitus complication detail: with peripheral angiopathy without gangrene Right above-knee amputee Z89.611 Amputation of left lower extremity below knee S88.112A
[2024-05-02] MEDS: potassium chloride ER 20 mEq Tablet 40 MEQ PO (17:07)
[2024-05-02] MEDS: sennosides-docusate Tablet 2 TAB PO (17:07)
[2024-05-02] MEDS: vancomycin 1,500 MG/300 ML PIGGYBACK 200 MG IV (17:07)
[2024-05-02] MEDS: sodium hypochlorite 0.125% Btl 473 mL 1 APPLIC TOPICAL (17:08)
[2024-05-02] MEDS: polyethylene glycol 3350 Pkt 17 gm PO (20:03)
[2024-05-02] MEDS: nystatin powder 15 gm Btl 1 APPLIC TOPICAL (20:05)
[2024-05-02 20:39] LABS: Glucose Point of Care 210 mg/dL (70-110)
[2024-05-02] MEDS: tizanidine 4 mg Tablet PO (21:09)
[2024-05-03] VITALS (49 sets, daily range): BP systolic 126–168; BP diastolic 68–100; PULSE 70–120; RESP 7–22; TEMP 36.5–37.5; O2SAT 90–98
[2024-05-03] MEDS: piperacillin-tazobactam 3.375 GM in sodium chloride 0.9% (plus) 50 ML IV ×3 (03:39→19:34)
[2024-05-03] MEDS: clindamycin 900 MG/50 ML PREMIX 100 MG IV ×3 (03:41→19:34)
[2024-05-03] MEDS: ketorolac 30 mg/mL INJ 15 MG IVP (03:46)
[2024-05-03 03:53] LABS: Basophils % 0.4 %; Eosinophils # 0.2 10^3/uL (0.0-0.8); Eosinophils % 1.7 %; Hematocrit 28.8 % (36-47); Lymphocytes # 1.5 10^3/uL (0.8-4.8); Lymphocytes % 16.4 %; Mean Corpuscular HGB Conc 31.3 g/dL (30-55); Mean Corpuscular Hemoglobin 31.5 pg (27-33); Mean Corpuscular Volume 100.7 fl (85-98); Mean Platelet Volume 9.8 fL (7.4-10.4); Monocytes # 0.9 10^3/uL (0.2-0.9); Monocytes % 10.3 %; Neutrophils # 6.02 10^3/uL (1.8-7.7); Neutrophils % 67.8 %; Nucleated Red Blood Cells % 0 %; Platelet Count 283 10^3/cmm (157-399); Red Blood Count 2.86 10^6/uL (3.85-5.65); Red Cell Distribution Width 14.5 % (12.1-15.1); White Blood Count 8.89 10^3/uL (3.29-11.43)
[2024-05-03 04:27] LABS: Albumin Level 2.3 g/dL (3.5-5.2); Anion Gap 13.9 (5-19); Blood Urea Nitrogen 15 mg/dL (8-23); Calcium 7.8 mg/dL (8.5-10.5); Carbon Dioxide 25 mmol/L (22-29); Chloride 105 mmol/L (98-107); Glomerular Filtration Rate 160.7 mL/min (90-130); Glucose 120 mg/dL (65-115); Magnesium 1.3 mg/dL (1.7-2.3); Phosphorus 3.7 mg/dL (2.5-4.5); Potassium 3.9 mmol/L (3.5-5.1); Sodium 140 mmol/L (136-145)
[2024-05-03] MEDS: oxyCODONE 5 mg IR Tab/Cap PO (06:06)
[2024-05-03 06:17] LABS: Glucose Point of Care 96 mg/dL (70-110)
--- NOTE | 2024-05-03 09:00 | PC.NURSE ---
Noticed pt scheduled to receive Heparin SQ but noted that the pt was to go to surgery this afternoon. The original plan was for 3PM but has been bumped to 1PM. Called Dr. Chirinos to verify whether he wanted heparin to be given or not. He stated that he wanted it given.
[2024-05-03] MEDS: heparin 5,000 unit/mL INJ 1 mL 5000 UNIT SUBCUT ×2 (09:13→20:49)
[2024-05-03] MEDS: pantoprazole 40 mg SDV IVP ×2 (09:13→19:34)
[2024-05-03] MEDS: nystatin powder 15 gm Btl 1 APPLIC TOPICAL (09:14)
[2024-05-03] MEDS: methadone 10 mg Tablet 20 MG PO ×2 (09:19→19:49)
[2024-05-03 10:14] LABS: Vancomycin Trough 18.5 ug/mL (10-15)
[2024-05-03] MEDS: vancomycin 1,500 MG/300 ML PIGGYBACK 200 MG IV (11:30)
--- NOTE | 2024-05-03 11:52 | ANES.PREANE2 ---
Pre-Anesthetic Assessment Height/Weight: Height 1.68 m Weight 85.003 kg Temp Pulse Resp BP Pulse Ox O2 Del Method O2 Flow Rate 98.0 F 95 18 168/69 97 Nasal Cannula 2 05/03/24 07:56 05/03/24 07:56 05/03/24 09:19 05/03/24 07:56 05/03/24 07:56 05/03/24 07:30 05/03/24 07:30 Preop Diagnosis: Osteomyelitis Operation Date: 04/29/24 14:00 Proposed Procedures p BKA (Below Knee Amputation)(Left) - Hakeem Chirinos DO Operation Date: 05/03/24 14:55 Proposed Procedures p Amputation Lower Extremity(Left) - Hakeem Chirinos DO Was Beta Lester taken within 24 hours: Yes Last intake: Intake Last Liquid Date 05/02/24 Last Liquid Time 09:00 Last Solid Date 05/02/24 Last Solid Time 22:00 Social Tobacco and No alcohol Exam alert, oriented x 3, clear to auscultation bilaterally and regular rate & rhythm Airway Submandibular: within normal limits Cervical ROM: within normal limits Mallampati: Class II Pulmonary Chronic Obstructive Pulmonary Disease, Cough and Shortness of Breath CV/HEM Coronary Artery Disease, Congestive Heart Failure and Hypertension GI Gastroesophageal Reflux Disease Metabolic Diabetes Mellitus Musc/skel Lower Back Pain, Osteoarthritis/DJD and Weakness Neuropsych Depression and Neuropathy Anesthetic Plan ASA status: 3E Anesthesia: General Medications/Allergies Home Medications Medication Instructions Recorded Confirmed Last Taken Type albuterol sulfate 90 mcg/actuation 2 inh inhalation Q4H PRN shortness 07/17/23 04/28/24 Unknown Rx aerosol inhaler of breath or wheezing #18 grams venlafaxine 150 mg 150 mg PO QAM #90 caps 12/12/23 04/28/24 04/27/24 Rx capsule,extended release 24 hr Methadone (Unknown Source) See Rx Instructions .Route .COMPLEX 12/16/23 04/28/24 Unknown History atenolol 50 mg tablet 50 mg PO BID #60 tabs 01/28/24 04/28/24 04/27/24 Rx tizanidine 4 mg tablet 4 mg PO Q8H PRN muscle spasticity 01/28/24 04/28/24 Unknown Rx #90 tabs sodium chloride 0.9 % irrigation 1 irrig irrigation BID wound care 01/29/24 04/28/24 Unknown Rx solution #250 mL amlodipine 5 mg tablet 5 mg PO DAILY #90 tabs 02/26/24 04/28/24 04/28/24 Rx fenofibrate nanocrystallized 145 145 mg PO DAILY #90 tabs 02/26/24 04/28/24 04/27/24 Rx mg tablet losartan 50 mg tablet 50 mg PO DAILY #90 tabs 02/26/24 04/28/24 04/27/24 Rx pantoprazole 40 mg tablet,delayed 40 mg PO DAILY #90 tabs 02/26/24 04/28/24 04/27/24 Rx release sodium hypochlorite 0.125 % 1 applic topical DAILY #473 mL 03/24/24 04/28/24 04/27/24 Rx solution (Dakin's Solution) diazepam 5 mg tablet 5 mg PO BID PRN anxiety #60 tabs 03/25/24 04/28/24 Unknown Rx furosemide 40 mg tablet 40 mg PO DAILY PRN Edema #90 tabs 03/25/24 04/28/24 04/27/24 Rx gabapentin 300 mg capsule 300 mg PO TID #90 caps 03/25/24 04/28/24 04/27/24 Rx metformin 500 mg tablet,extended 500 mg PO BID #60 tabs 03/25/24 04/28/24 04/28/24 Rx release 24 hr hydrocodone 7.5 mg-acetaminophen 1 tab PO Q6H PRN pain 5 days #20 04/01/24 04/28/24 Unknown Rx 325 mg tablet tabs ketorolac 10 mg tablet 10 mg PO Q8H PRN pain #15 tabs 04/08/24 04/28/24 Unknown Rx lidocaine-prilocaine 2.5 %-2.5 % 1 applic topical BID 04/28/24 04/28/24 04/27/24 History topical cream nystatin 100,000 unit/gram topical 1 applic topical TID 04/28/24 04/28/24 Unknown History powder Allergies Allergy/AdvReac Type Severity Reaction Status Date / Time nalbuphine Allergy Unknown sick to Verified 03/25/24 09:22 stomach adhesive tape Allergy rash Verified 03/25/24 09:22 amitriptyline Allergy Unknown Verified 03/25/24 09:22 morphine Allergy ADR-Vomitin Verified 03/25/24 09:22 g nitrofurantoin Allergy ADR-Vomitin Verified 03/25/24 09:22 [From Macrobid] g Sulfa (Sulfonamide Allergy Itch all Verified 03/25/24 09:22 Antibiotics) over Current Medications Generic Name Dose Route Start Last Admin Trade Name Freq PRN Reason Stop Dose Admin Heparin Sodium (Porcine) 5,000 unit 04/30/24 21:00 05/03/24 09:13 Heparin 5,000 Unit/Ml Inj 1 Ml SUBCUT 5,000 unit Q12H RANJIT Administration Dextrose 125 mls @ 750 mls/hr 04/28/24 18:24 05/01/24 21:20 D10w IV Infused PRN PRN Infusion Adult Acute Hypoglycemia Nursing Protocol Protocol Clindamycin HCl/Dextrose 900 mg in 50 mls @ 100 mls/hr 04/28/24 19:00 05/03/24 11:29 Cleocin IV 100 mls/hr Q8H RANJIT Administration Protocol Piperacillin Sod/Tazobactam 50 mls @ 12.5 mls/hr 04/29/24 03:00 05/03/24 11:29 Sod 3.375 gm/ Sodium Chloride IV 12.5 mls/hr Q8H RANJIT Administration Vancomycin/PEG/NADA/Lysine/Water 1,500 mg in 300 mls @ 200 mls/hr 05/01/24 05:00 05/03/24 11:30 Vancocin IV 200 mls/hr Q18H RANJIT Administration Insulin Human Lispro 0 unit 04/29/24 21:00 05/03/24 08:49 Insulin Lispro 100 Unit/1 Ml SUBCUT Not Given WM&BEDTIME [facility] Protocol Ketorolac Tromethamine 15 mg 04/28/24 18:29 05/03/24 03:46 Ketorolac 30 Mg/Ml Inj IVP 05/03/24 18:29 15 mg Q6H PRN Administration leg pain - REFRACTORY Methadone HCl 20 mg 04/28/24 18:24 05/03/24 09:19 Methadone 10 Mg Tablet PO 20 mg BID PRN Administration leg pain Nystatin 1 applic 05/02/24 09:00 05/03/24 09:14 Nystatin Powder 15 Gm Btl TOPICAL 1 applic TID RANJIT Administration Ondansetron HCl 4 mg 04/28/24 18:24 05/01/24 13:05 Ondansetron 2 Mg/Ml Sdv 2 Ml IVP 4 mg Q6H PRN Administration NAUSEA AND VOMITING Oxycodone HCl 5 mg 04/28/24 18:24 05/03/24 06:06 Oxycodone 5 Mg Ir Tab/Cap PO 5 mg Q6H PRN Administration MODERATE PAIN Pantoprazole Sodium 40 mg 04/29/24 09:00 05/03/24 09:13 Pantoprazole 40 Mg Sdv IVP 40 mg BID RANJIT Administration Polyethylene Glycol 17 gm 05/02/24 21:00 05/02/24 20:03 Polyethylene Glycol 3350 Pkt 17 Gm PO 17 gm BEDTIME RANIJT Administration Senna/Docusate Sodium 2 tab 05/02/24 18:00 05/03/24 08:50 Sennosides-Docusate Tablet PO Not Given BID RANJIT Sodium Hypochlorite 1 applic 04/29/24 17:15 05/02/24 17:08 Sodium Hypochlorite 0.125% Btl 473 Ml TOPICAL 1 applic Q24H RANJIT Administration Tizanidine HCl 4 mg 04/28/24 20:52 05/02/24 21:09 Tizanidine 4 Mg Tablet PO 4 mg TID PRN Administration SPASMS PFSH Anesthesia Medical History (Updated 05/01/24 @ 12:12 by Alexander Chang MD) Pulmonary embolism AMS (altered mental status) COPD (chronic obstructive pulmonary disease) Metabolic encephalopathy Degenerative joint disease of left knee Closed fracture of left distal femur Hypertension Closed femur fracture Venous stasis ulcer Cellulitis Diabetic neuropathy associated with type 2 diabetes mellitus Diastolic CHF Anemia Substance abuse Depression with anxiety Chronic pain History of DVT of lower extremity post-operative Hyperlipidemia Hypertension History of cardioversion history of SVT vs for other arrhythmia Methamphetamine use Diabetes mellitus, type II Kzeeape-Ckfrh-Pculr disease-like deformity of foot right Lung cancer Torticollis, acquired Has had good results with Botox in the past Lumbar radiculopathy Cervical post-laminectomy syndrome Surgical History Status post above-knee amputation of right lower extremity Hx of neck surgery x 2, posterior laminectomy and cervical fusion with hardware in place, limited ROM neck at baseline Hx of total knee replacement (~2010) Right History of arthroplasty of left knee (~1976) History of partial hysterectomy Hx of dilation and curettage Hx of tubal ligation Hx of appendectomy Family History Family/Other Hypertension Depression Anxiety Diabetes Father Aneurysm Mother Hypertension Brother Diabetes Sister Diabetes Social History Smoking and tobacco/nicotine status: current every day tobacco/nicotine user Alcohol intake: never Substance/Drug Use: current Substance/Drug use frequency: few times a month Additional social history: unknown if patient continues to smoke, documented to smoke previously Marital status: Female Reproductive History Spontaneous abortions: No Data Anesthesia 05/03/24 03:13 05/03/24 03:13 Short CBC 05/02/24 05/03/24 Range/Units 02:18 03:13 WBC 8.25 8.89 (3.29-11.43) 10^3/uL Hgb 9.00 L 9.00 L (11.27-16.99) g/dL Hct 30.0 L 28.8 L (36-47) % MCV 100.7 H 100.7 H (85-98) fl Plt Count 291 283 (157-399) 10^3/cmm Neut % (Auto) 66.9 67.8 % Neut # (Auto) 5.52 6.02 (1.8-7.7) 10^3/uL BMP 05/02/24 05/03/24 02:18 03:13 Sodium 144 140 Potassium 3.2 L 3.9 Chloride 108 H 105 Carbon Dioxide 24 25 BUN 17 15 Creatinine 0.5 0.4 L Glucose 68 120 H Calcium 7.8 L 7.8 L Liver Function 05/03/24 Range/Units 03:13 Albumin 2.3 L (3.5-5.2) g/dL Cardiac Studies: Echocardiogram 06/13/23 Echocardiogram Limited Views 12/27/20 Echocardiogram Ultrasound 01/01/21
[2024-05-03 11:53] LABS: Glucose Point of Care 97 mg/dL (70-110)
--- NOTE | 2024-05-03 13:10 | PC.NURSE ---
Went to hang the Magnesium Sulfate IV med but surgery was on their way to take the pt and was told by the circulating RN not to hang the medication but to give when they arrive back. Medication will be given upon pt return from surgery.
--- NOTE | 2024-05-03 13:30 | P.PN_ITS ---
Vitals/I&O/Wt Last Vital Signs Temp 97.7 F 05/03/24 12:00 Pulse 83 05/03/24 12:00 Resp 19 H 05/03/24 12:00 BP 156/77 05/03/24 12:00 Pulse Ox 96 05/03/24 12:00 O2 Del Method Nasal Cannula 05/03/24 12:00 O2 Flow Rate 2 05/03/24 07:30 05/02/24 05/03/24 05/03/24 22:59 06:59 14:59 Intake Total 2179 / 2639 100 / 2739 100 / 100 Output Total 800 / 800 550 / 1350 500 / 500 Balance 1379 / 1839 -450 / 1389 -400 / -400 Weight last 48 hrs Weight 187 lb 6.4 oz Weight 184 lb 9.6 oz Physical Exam 2 Urinary Catheter Management: Garber: Cath Placed During This Visit: yes Reason for Continuing Indwelling Catheter: Accurate Measurement of Urinary Output in Critically Ill Patients Urinary Catheter Date of Insertion: 04/28/24 Urinary Catheter Time of Insertion: 19:59 Data 05/03/24 03:13 05/03/24 03:13 Micro: Microbiology 04/28/24 12:49 Blood Culture - Final Blood NO GROWTH AFTER 5 DAYS 04/28/24 12:49 Blood Culture - Final Blood NO GROWTH AFTER 5 DAYS A&P Assessment and plan (1) Cellulitis: (2) Septic shock: (3) Non-pressure chronic ulcer of left heel and midfoot with fat layer exposed: Plan Postoperative day #4 status post left guillotine below-knee amputation Completion left below-knee amputation The risks and benefits of the procedure, including but not limited to, bleeding, infection, scar, numbness, pain, phantom limb syndrome, poor wound healing, need to convert to an above-knee amputation now or in the future, or explained to the patient. She is understanding of the risks and wishes to proceed. Medical management per hospitalist Attestations 2 Medical Necessity Statement*: per primary Coding Level of Care Code Acute Code for [facility] Diagnoses Cellulitis L03.90 Septic shock A41.9; R65.21 Non-pressure chronic ulcer of left heel and midfoot with fat layer exposed L97.422
[2024-05-03 14:07] LABS: Glucose Point of Care 81 mg/dL (70-110)
--- NOTE | 2024-05-03 14:13 | PC.NURSE ---
1413 - Dr Alex in pacu with patient - notified of pts spot blood sugar check
[2024-05-03 14:57] LABS: Glucose Point of Care 80 mg/dL (70-110)
--- NOTE | 2024-05-03 16:12 | P.PN_ITS ---
Subjective 2 Subjective: Patient is n.p.o. for procedure this afternoon. She endorses severe anxiety think she is can have a panic attack. She is very nervous over the surgery. Psychosocial support given. She denies fevers, chills, chest pain or shortness of breath. Medications: Reviewed: Yes Vitals/I&O/Wt Last Vital Signs Temp 97.7 F 05/03/24 13:46 Pulse 91 05/03/24 13:46 Resp 18 05/03/24 13:46 BP 168/83 05/03/24 13:46 Pulse Ox 94 05/03/24 13:46 O2 Del Method Nasal Cannula 05/03/24 13:46 O2 Flow Rate 3 05/03/24 13:46 05/03/24 05/03/24 05/03/24 06:59 14:59 22:59 Intake Total 100 / 2739 150 / 150 Output Total 550 / 1350 650 / 650 Balance -450 / 1389 -500 / -500 Weight last 48 hrs Weight 85.003 kg Weight 83.733 kg Physical Exam 2 Narrative: General: Patient is awake. Frail-appearing. Very anxious. Head: Normocephalic. Atraumatic. Neck: No JVD. Cardiovascular: RRR. No gallops. No murmurs. Lungs: Clear to auscultation, no use of accessory muscles, no crackles or wheezes. Skin: No jaundice. No rashes. Gluteal and sacral wound. Abdomen: Normal bowel sounds, abdomen soft and nontender. Extremities: Left leg stump site is covered with dressing. Extremity is edematous. Neurological: Contractures in extremities. No myoclonus. Urinary Catheter Management: Garber: Cath Placed During This Visit: yes Reason for Continuing Indwelling Catheter: Accurate Measurement of Urinary Output in Critically Ill Patients Urinary Catheter Date of Insertion: 04/28/24 Urinary Catheter Time of Insertion: 19:59 Data 05/03/24 03:13 05/03/24 03:13 Micro: Microbiology 04/28/24 12:49 Blood Culture - Final Blood NO GROWTH AFTER 5 DAYS 04/28/24 12:49 Blood Culture - Final Blood NO GROWTH AFTER 5 DAYS A&P Assessment and plan (1) Noncompliance: (2) Depression with anxiety: (3) Diabetic neuropathy associated with type 2 diabetes mellitus: (4) Hypoxemia: (5) Chronic hypercapnic respiratory failure: (6) Septic shock: (7) Postoperative anemia: (8) GERD without esophagitis: (9) Diabetes mellitus, type II: Qualifiers: Diabetes mellitus truck terminal manager insulin use: without truck terminal manager use Diabetes mellitus complication status: with circulatory complication Diabetes mellitus complication detail: with peripheral angiopathy without gangrene Qualified Code(s): E11.51 - Type 2 diabetes mellitus with diabetic peripheral angiopathy without gangrene (10) Right above-knee amputee: (11) Amputation of left lower extremity below knee: Plan Sepsis -Septic shock is resolved -Source: Left leg ulcer -Status post below-knee amputation 04/29 -Continue broad-spectrum antibiotics -Blood cultures are now negative at 5 days -Telemetry monitoring -Additional surgical revision is required, which is scheduled for this afternoon with Dr. Chirinos Postoperative anemia -Monitor hemoglobin, transfuse if needed Hypervolemia -Daily assessment of volume status -She remains volume overloaded -She is n.p.o. so no Lasix today -Consider further diuresis tomorrow pending clinical course Constipation -Judicious use of opiates -Continue bowel regimen Chronic pain -Continue current pain regiment Debility and physical deconditioning -Would benefit from postacute care, however patient is reportedly already refused this with plans to return home with significant other Type 2 diabetes mellitus -Sliding-scale insulin correction COPD with chronic hypoxic respiratory failure -Not in exacerbation -Breathing treatments DVT prophylaxis: Heparin CODE STATUS: Full code Attestations 2 Medical Necessity Statement*: Patient requires ongoing hospitalization for IV antibiotics, serial labs, surgical intervention, and supportive care. Coding Level of Care Code Acute Code for [facility] Diagnoses Noncompliance Z91.19 Depression with anxiety F41.8 Diabetic polyneuropathy associated with type 2 diabetes mellitus E11.40 Hypoxemia R09.02 Chronic hypercapnic respiratory failure J96.12 Septic shock A41.9; R65.21 Postoperative anemia D64.9 GERD without esophagitis K21.9 Type 2 diabetes mellitus with diabetic peripheral angiopathy without gangrene, without long-term current use of insulin E11.51 Diabetes mellitus long-term insulin use: without long-term use Diabetes mellitus complication status: with circulatory complication Diabetes mellitus complication detail: with peripheral angiopathy without gangrene Right above-knee amputee Z89.611 Amputation of left lower extremity below knee S88.112A
--- NOTE | 2024-05-03 17:29 | PM.OP ---
Operative Report Date of procedure: May 03, 2024 Pre-op diagnosis: Atherosclerosis of the left lower extremity with chronic nonhealing wound, cellulitis and edema Post-op diagnosis: same Surgeon: Hakeem Chirinos DO Procedure: Procedure done: Left Below-knee amputation Implants: None Specimens removed/disposition: left leg Surgeon: Hakeem Chirinos DO Anesthesia: General Estimated blood loss (mL): 100 cc Complications: None apparent Brief History: This is a very pleasant 64-year-old female with a history of IV drug abuse and right [id number] amputation who presented to the hospital with chronic nonhealing wounds of her left foot along with cellulitis and severe lymphedema to the left lower extremity. Left below-knee amputation was indicated. The risks and benefits of the procedure, especially the possibility of poor wound healing and the need for a future above-knee amputation, similar to her right lower extremity, were explained to the patient. She is understand the risks and wished to proceed Procedure: Patient was wheeled in the OR and placed on the OR table in the supine position. A spinal and MAC was performed by the department of anesthesia. The left lower extremity was prepped and draped in usual sterile fashion. A timeout was performed. All present were in agreement. Unfortunately, there were still healthy appearing wounds on his left leg where the posterior flap was to be made. A posterior flap was drawn from 1 handbreadth below the tibial plateau on the posterior one third of the leg going down to one third the diameter of the leg. This crossed over a wound on the posterior most aspect. Tourniquet was brought up to 250 mmHg. A 10 blade scalpel was then used to cut the skin and subcutaneous tissue down along the line to round. A periosteal elevator was used to clear the tibia up to 1 cm. A gently saw was then used to transect the tibia. The periosteal elevator was then used to clear the fibula up to 2 cm. The Tg was then used to transect the fibula. An amputation knife was then used to cut down through the muscle and subcutaneous tissue to create the posterior flap. The leg was passed off. Vessels were ligated with 2-0 silk. The tourniquet was let down. Tourniquet time was 8 minutes. Small areas of bleeding were controlled with electrocautery. The fascia was then approximated with 0 Vicryl in an interrupted fashion. Dermis was then approximated using 2-0 Vicryl in interrupted fashion. 0 and 3-0 nylon were used in a interrupted vertical mattress fashion to approximate the dermis and epidermis. the fascia, dermis and epidermis were very thin and friable.. Even the 0 nylons and Vicryls often ripped through. With difficulty, the layers were eventually brought together. Sterile bandage was applied. Anesthesia had some difficulty maintaining his vitals during the procedure.
[2024-05-03 17:38] LABS: Glucose Point of Care 102 mg/dL (70-110)
--- NOTE | 2024-05-03 18:48 | PC.NURSE ---
Pt returned from surgery to room
[2024-05-03] MEDS: sodium chloride 0.9% 1,000 ML 30 ML IV (19:14)
[2024-05-03] MEDS: magnesium sulfate premix 2 GM/50 ML PIGGYBACK IV (19:33)
[2024-05-03 20:59] LABS: Glucose Point of Care 126 mg/dL (70-110)
[2024-05-04] VITALS (64 sets, daily range): BP systolic 117–181; BP diastolic 51–104; PULSE 70–114; RESP 14–35; TEMP 36.2–36.9; O2SAT 93–100
[2024-05-04] MEDS: oxyCODONE 5 mg IR Tab/Cap PO ×3 (01:00→15:37)
[2024-05-04] MEDS: tizanidine 4 mg Tablet PO (01:05)
[2024-05-04] MEDS: piperacillin-tazobactam 3.375 GM in sodium chloride 0.9% (plus) 50 ML IV ×2 (03:03→12:33)
[2024-05-04] MEDS: clindamycin 900 MG/50 ML PREMIX 100 MG IV ×2 (03:05→12:33)
[2024-05-04] MEDS: vancomycin 1,500 MG/300 ML PIGGYBACK 200 MG IV (04:20)
[2024-05-04] MEDS: methadone 10 mg Tablet 20 MG PO ×2 (04:52→17:56)
[2024-05-04 05:33] LABS: Basophils % 0.2 %; Eosinophils % 0.3 %; Hematocrit 22.5 % (36-47); Lymphocytes # 1.4 10^3/uL (0.8-4.8); Lymphocytes % 10.5 %; Mean Corpuscular HGB Conc 30.7 g/dL (30-55); Mean Corpuscular Hemoglobin 30.8 pg (27-33); Mean Corpuscular Volume 100.4 fl (85-98); Mean Platelet Volume 9.5 fL (7.4-10.4); Monocytes # 1.1 10^3/uL (0.2-0.9); Monocytes % 8.2 %; Neutrophils # 10.01 10^3/uL (1.8-7.7); Neutrophils % 76.9 %; Nucleated Red Blood Cells % 0 %; Platelet Count 298 10^3/cmm (157-399); Red Blood Count 2.24 10^6/uL (3.85-5.65); Red Cell Distribution Width 14.1 % (12.1-15.1); White Blood Count 13.01 10^3/uL (3.29-11.43)
[2024-05-04 05:58] LABS: Albumin Level 2.4 g/dL (3.5-5.2); Anion Gap 13.3 (5-19); Blood Urea Nitrogen 10 mg/dL (8-23); Carbon Dioxide 25 mmol/L (22-29); Chloride 105 mmol/L (98-107); Creatinine Clr Calc Pharmacy 154.7726; Glomerular Filtration Rate 160.7 mL/min (90-130); Glucose 188 mg/dL (65-115); Magnesium 1.7 mg/dL (1.7-2.3); Phosphorus 3.8 mg/dL (2.5-4.5); Potassium 4.3 mmol/L (3.5-5.1); Sodium 139 mmol/L (136-145)
[2024-05-04 06:34] LABS: Glucose Point of Care 165 mg/dL (70-110)
--- NOTE | 2024-05-04 09:00 | PC.NURSE ---
Dr. Chang ordered a stat Hgb / Hct to recheck from [facility] and instructed me to hold off on starting the blood transfusion until we verify that the Hgb / Hct were correct from earlier this morning.
[2024-05-04] MEDS: insulin lispro 100 unit/1 mL SUBCUT ×2 (09:05→12:34)
[2024-05-04] MEDS: pantoprazole 40 mg SDV IVP (09:05)
[2024-05-04] MEDS: heparin 5,000 unit/mL INJ 1 mL 5000 UNIT SUBCUT (09:05)
[2024-05-04] MEDS: nystatin powder 15 gm Btl 1 APPLIC TOPICAL ×2 (09:06→17:57)
--- NOTE | 2024-05-04 10:10 | PC.NURSE ---
Called lab about stat H/H to be drawn and was ordered at 08:46. Safia stated that she would send someone down now.
[2024-05-04 11:37] LABS: Glucose Point of Care 156 mg/dL (70-110)
--- NOTE | 2024-05-04 11:51 | PC.NURSE ---
Lab called for the 2nd time for a stat lab draw that was ordered at 08:46 a.m. 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 notified as well.
[2024-05-04 12:19] LABS: Hematocrit 24.7 % (36-47)
[2024-05-04] MEDS: acetaminophen 500 mg Tablet PO (12:21)
--- NOTE | 2024-05-04 13:28 | P.DS_ITS ---
Discharge Providers Date of Admission: 04/28/24 15:56 Date of Discharge: May 04, 2024 Attending Provider at Admission: Alexander Chang MD Attending Provider at Discharge: Alexander Chang MD Primary Care Provider: Wilner Hdez DO Diagnoses at Discharge Discharge Diagnosis (1) Noncompliance: Status: Chronic (2) Depression with anxiety: Status: Acute (3) Diabetic neuropathy associated with type 2 diabetes mellitus: Status: Acute (4) Hypoxemia: Status: Acute (5) Chronic hypercapnic respiratory failure: Status: Acute (6) Septic shock: Status: Acute (7) Postoperative anemia: Status: Acute (8) GERD without esophagitis: Status: Acute (9) Diabetes mellitus, type II: Status: Chronic Qualifiers: Diabetes mellitus complication detail: with peripheral angiopathy without gangrene Diabetes mellitus complication status: with circulatory complication 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: without long-term use Qualified Code(s): E11.51 - Type 2 diabetes mellitus with diabetic peripheral angiopathy without gangrene (10) Right above-knee amputee: Status: Acute (11) Amputation of left lower extremity below knee: Status: Acute Reason for Visit Reason for Visit: LT Leg Pain/ Hot/ Red Hospital Course Hospital Course 64-year-old female with history of chronic extremity contractures, right above the knee amputation, multiple comorbid conditions with worsening ulcer of left lower extremity her left leg was extremely erythematous, painful to touch, patient was diagnosed with sepsis, CT angiogram was done which did not show any acute occlusion of arterial supply of the leg, it showed internal iliac stenosis which supplies pelvic organs, general surgery was consulted who recommended amputation of left extremity below the knee. Dr. Chirinos initially perform amputation followed by revision of amputation on 05/03. Blood culture remain negative at 6 days. She remained on broad-spectrum antibiotics till the time of discharge. Please note patient is on methadone 20 mg daily regimen she gets extremely drowsy and confused when we were giving her Dilaudid and decision was made to de-escalate to other opioids, Dilaudid was added by general surgery which was changed pretty quickly to oral opioids. Patient remained hemodynamically stable able postoperative anemia required 1 unit PRBC during hospitalization. Patient is adamant that she does not want rehab, she is wants to go home will home health services, she wants to stay with her at home. I have asked patient to call her methadone clinic to prescribe her more at this point She may resume her home dose of opioids Physical Exam Narrative: Awake and alert Hemodynamic stable Currently on 2 L Abdomen soft Stump covered with dressing S1, S2 tachycardia variable Normotensive Urinary Catheter Management: Garber: Cath Placed During This Visit: yes Reason for Continuing Indwelling Catheter: Accurate Measurement of Urinary Output in Critically Ill Patients Urinary Catheter Date of Insertion: 04/28/24 Urinary Catheter Time of Insertion: 19:59 Discharge Data Studies Completed and Pending Completed Studies During Hospitalization Category Date Time Status CTA lower extremity bilateral [place] [id number]] Cat Scan 04/28/24 14:37 Completed Stat XR chest 1V portable [id number] Stat Exams 04/28/24 12:27 Completed XR foot LT min 3V* [id number] Stat Exams 04/28/24 13:16 [place] [id number] Stat Ultrasound 04/28/24 14:04 Completed US venous duplex lower extremity LT [CV venous duplex Ultrasound 04/28/24 13:[place] [id number]] Stat Pending at discharge Category Date Time Status Leukocyte Reduced RBC Routine Lab 05/04/24 07:08 Results Type and Screen Routine Lab 05/04/24 07:08 Results Vancomycin Trough Timed Lab 05/06/24 10:00 Ordered Pathology: Surgical [PTH] Routine Pth 04/29/24 15:45 Received Pathology: Surgical [PTH] Routine Pth 05/03/24 16:59 Ordered Radiology Impressions Chest X-Ray 04/28/24 12:27 IMPRESSION: 1. Slightly increased mild elevation of the right hemidiaphragm. 2. Small amount of new atelectasis and/or pneumonitis right lung base. 3. Slightly increased atelectasis and/or pneumonitis left mid lung. Foot X-Ray 04/28/24 13:16 IMPRESSION: 1. Osteomyelitis and soft tissue infection are possible. See above discussion. This can be better evaluated with MRI if clinically warranted. 2. Additional details as above. Duplex Scan Lower Extremity Artery 04/28/24 14:04 IMPRESSION: 1. No hemodynamically significant stenosis or occlusion is known to be the case in the left leg by CTA from the level of the distal left common iliac artery to the foot. 2. However, monophasic waveforms throughout the arteries of the left leg suggest high-grade stenosis if not occlusion involving the aorta and/or the mid and proximal left common iliac artery. This examination does show an elevated peak systolic velocity in the proximal left common iliac artery of 174 cm/s and in the mid left common iliac artery of 218 cm/s. Lower Extremity CTA 04/28/24 14:37 IMPRESSION: 1. 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 2. No other significant arterial pathology. 3. Additional details as above. Laboratory Results WBC 13.01 10^3/uL (3.29-11.43) H 05/04/24 05:19 RBC 2.24 10^6/uL (3.85-5.65) L 05/04/24 05:19 Hgb 7.60 g/dL (11.27-16.99) L 05/04/24 12:08 Hct 24.7 % (36-47) L 05/04/24 12:08 MCV 100.4 fl (85-98) H 05/04/24 05:19 MCH 30.8 pg (27-33) 05/04/24 05:19 MCHC 30.7 g/dL (30-55) 05/04/24 05:19 RDW 14.1 % (12.1-15.1) 05/04/24 05:19 Plt Count 298 10^3/cmm (157-399) 05/04/24 05:19 MPV 9.5 fL (7.4-10.4) 05/04/24 05:19 Neut % (Auto) 76.9 % 05/04/24 05:19 Lymph % (Auto) 10.5 % 05/04/24 05:19 [place] % (Auto) 8.2 % 05/04/24 05:19 Eos % (Auto) 0.3 % 05/04/24 05:19 Baso % (Auto) 0.2 % 05/04/24 05:19 Neut # (Auto) 10.01 10^3/uL (1.8-7.7) H 05/04/24 05:19 Lymph # (Auto) 1.4 10^3/uL (0.8-4.8) 05/04/24 05:19 [place] # (Auto) 1.1 10^3/uL (0.2-0.9) H 05/04/24 05:19 Eos # (Auto) 0.0 10^3/uL (0.0-0.8) 05/04/24 05:19 Baso # (Auto) 0.0 10^3/uL (0.0-0.1) 05/04/24 05:19 Nucleated RBC % (auto) 0 % 05/04/24 05:19 Total Counted 100 (0-100) 04/29/24 06:06 Atypical Lymphs % 2.0 % (0-5) 04/29/24 06:06 Absolute Neutrophils 14.5 10^3/cmm (1.4-6.5) H 04/29/24 06:06 Segmented Neutrophils 76 % 04/29/24 06:06 Abs Segm Neuts (Man) 12.1 10/cmm (1.6-7.1) H 04/29/24 06:06 Band Neutrophils 15.0 % 04/29/24 06:06 Abs Band Neuts (Man) 2.4 10^3/cmm (0.0-1.2) H 04/29/24 06:06 Absolute Lymphocytes 1.1 10^3/cmm (1.2-3.4) L 04/29/24 06:06 Lymphocytes (Manual) 5 % 04/29/24 06:06 Monocytes (Manual) 1.0 % 04/29/24 06:06 Absolute Monocytes 0.2 10^3/cmm (0.1-0.6) 04/29/24 06:06 Eosinophils (Manual) 1 % 04/29/24 06:06 Absolute Eosinophils 0.2 10^3/cmm (0.0-0.7) 04/29/24 06:06 Basophils (Manual) 0.0 % 04/29/24 06:06 Absolute Basophils 0.0 10^3/cmm (0.0-0.2) 04/29/24 06:06 Nucleated RBCs # 0.0 /100WBC 05/04/24 05:19 Platelet Estimate Normal (Normal) 04/29/24 06:06 Macrocytosis 1+ H 04/29/24 06:06 Specimen Type Arterial 04/30/24 10:35 Sample Site Radial, right 04/30/24 10:35 ABG pH 7.32 (7.35-7.45) L 04/30/24 10:35 ABG pCO2 42.9 mmHg (35-45) 04/30/24 10:35 ABG pO2 86.8 mmHg (80.0-100.0) 04/30/24 10:35 ABG HCO3 21.8 mmol/L (22-26) L 04/30/24 10:35 ABG Base Excess -4.1 mmol/L (-2.0-2.0) L 04/30/24 10:35 Abdoulaye Test Pos 04/30/24 10:35 Hematocrit 29.2 % (37-47) L 04/30/24 10:35 O2 Delivery Device Nc 04/30/24 10:35 O2 Liters/Min 2.5 % 04/30/24 10:35 Veterinary Practice Manager ID Gd 04/30/24 10:35 Sodium 139 mmol/L (136-145) 05/04/24 05:19 Potassium 4.3 mmol/L (3.5-5.1) 05/04/24 05:19 Chloride 105 mmol/L (98-107) 05/04/24 05:19 Carbon Dioxide 25 mmol/L (22-29) 05/04/24 05:19 Anion Gap 13.3 (5-19) 05/04/24 05:19 BUN 10 mg/dL (8-23) 05/04/24 05:19 Creatinine 0.4 mg/dL (0.5-0.9) L 05/04/24 05:19 GFR Calculation 160.7 mL/min (90-130) H 05/04/24 05:19 Glucose 188 mg/dL (65-115) H 05/04/24 05:19 POC Glucose 156 mg/dL (70-110) H 05/04/24 11:23 Estimat Average Glucose 154 04/28/24 12:49 Hemoglobin A1c 7.0 % (4.0-6.0) H 04/28/24 12:49 Calculated Osmolality 298 mOsm/kg (285-295) H 05/02/24 02:18 Lactic Acid 2.8 mmol/L (0.5-2.2) H 04/28/24 12:49 Lactic Acid (Sepsis) 1.8 mmol/L (0.5-2.2) 04/28/24 17:00 Calcium 8.0 mg/dL (8.5-10.5) L 05/04/24 05:19 Phosphorus 3.8 mg/dL (2.5-4.5) 05/04/24 05:19 Magnesium 1.7 mg/dL (1.7-2.3) 05/04/24 05:19 Total Bilirubin 1.3 mg/dL (0.15-1.2) H 04/28/24 12:49 AST 15 U/L (0-32) 04/28/24 12:49 ALT 10 U/L (0-33) 04/28/24 12:49 Alkaline Phosphatase 164 U/L (35-105) H 04/28/24 12:49 Total Protein 7.7 g/dL (6.6-8.7) 04/28/24 12:49 Albumin 2.4 g/dL (3.5-5.2) L 05/04/24 05:19 Globulin 4.7 g/dL (1.3-4.6) H 04/28/24 12:49 Procalcitonin 1.14 ng/mL (0-0.5) H 04/28/24 12:49 TSH 1.79 uIU/mL (0.27-4.20) 04/28/24 12:49 Urine Color Dark yellow (Yellow) 04/28/24 17:34 Urine Appearance Slightly cloudy (CLEAR) 04/28/24 17:34 Urine pH 5 (5-7) 04/28/24 17:34 Ur Specific [place] 1.010 (1.005-1.030) 04/28/24 17:34 Urine Protein Trace (Negative) 04/28/24 17:34 Urine Glucose (UA) Norm (Normal) 04/28/24 17:34 Urine Ketones 1+ (Negative) H 04/28/24 17:34 Urine Blood Neg (Negative) 04/28/24 17:34 Urine Nitrate Negative (Negative) 04/28/24 17:34 Urine Bilirubin 1+ (Negative) H 04/28/24 17:34 Urine Urobilinogen 8 mg/dL (Negative) H 04/28/24 17:34 Ur Leukocyte Esterase 1+ (Negative) H 04/28/24 17:34 Urine RBC None /hpf (0-2) 04/28/24 17:34 Urine WBC 5-10 /hpf (0-5) H 04/28/24 17:34 Ur Squamous Epith Cells 25-40 /hpf (0-5) H 04/28/24 17:34 Amorphous Sediment Not Reportable 04/28/24 17:34 Urine Bacteria 1+ /hpf (NONE) H 04/28/24 17:34 Urine Yeast 2+ /hpf H 04/28/24 17:34 Vancomycin Trough 18.5 ug/mL (10-15) H 05/03/24 09:51 Blood Type B Negative 05/04/24 07:08 Rho(D) Type Rh negative 05/04/24 07:08 Antibody Screen Negative 05/04/24 07:08 Crossmatch See Detail 05/04/24 07:08 Vitals Last Vital Signs Temp 98.0 F 05/04/24 11:24 Pulse 105 H 05/04/24 11:24 Resp 17 05/04/24 11:24 BP 136/80 05/04/24 11:24 Pulse Ox 94 05/04/24 11:24 O2 Del Method Nasal Cannula 05/04/24 11:24 O2 Flow Rate 3.5 05/04/24 07:14 Discharge Plan Discharge Patient Disposition: Home Condition: Stable Prescriptions: New amoxicillin-pot clavulanate 875-125 mg tablet 1 tab PO BID Qty: 10 0RF doxycycline hyclate 100 mg tablet 100 mg PO BID 10 Days Qty: 20 0RF sennosides-docusate sodium [Senna-S] 8.6-50 mg tablet 1 tab-cap PO DAILY Qty: 10 0RF Continued Dakin's Solution 0.125 % solution 1 applic topical DAILY Qty: 473 0RF gabapentin 300 mg capsule 300 mg PO TID Qty: 90 5RF metformin 500 mg tablet extended release 24 hr 500 mg PO BID Qty: 60 5RF diazepam 5 mg tablet 5 mg PO BID PRN (Reason: anxiety) Qty: 60 3RF furosemide 40 mg tablet 40 mg PO DAILY PRN (Reason: Edema) Qty: 90 3RF tizanidine 4 mg tablet 4 mg PO Q8H PRN (Reason: muscle spasticity) Qty: 90 2RF atenolol 50 mg tablet 50 mg PO BID Qty: 60 5RF venlafaxine 150 mg capsule,extended release 24hr 150 mg PO QAM Qty: 90 2RF sodium chloride 0.9 % solution 1 irrig irrigation BID Qty: 250 1RF Rx Instructions: dispense quantity on hand if 250ml bottle unavailable losartan 50 mg tablet 50 mg PO DAILY Qty: 90 3RF fenofibrate nanocrystallized 145 mg tablet 145 mg PO DAILY Qty: 90 3RF amlodipine 5 mg tablet 5 mg PO DAILY Qty: 90 3RF pantoprazole 40 mg tablet,delayed release (DR/EC) 40 mg PO DAILY Qty: 90 3RF hydrocodone-acetaminophen 7.5-325 mg tablet 1 tab PO Q6H PRN (Reason: pain) 5 Days Qty: 20 0RF ketorolac 10 mg tablet 10 mg PO Q8H PRN (Reason: pain) Qty: 15 0RF Rx Instructions: maximum total duration of 5 days from all oral, intranasal, or parenteral formulations lidocaine-prilocaine 2.5-2.5 % cream 1 applic topical BID nystatin 100,000 unit/gram powder 1 applic topical TID albuterol sulfate 90 mcg/actuation HFA aerosol inhaler 2 inh INHALATION Q4H PRN (Reason: shortness of breath or wheezing) Qty: 18 0RF Methadone (Unknown Source) See Rx Instructions .ROUTE .COMPLEX Rx Instructions: DIRECTED- UNKNOWN SOURCE Discharge Orders: Discharge Order (Routine); Ordered 05/04/24 Ordered By: Alexander Chang Referrals: Wilner Hdez DO [Primary Care Provider] - 05/12/24 3:30 pm Patient Instructions: Heart Failure (DC), CHF Stoplight, Opioid Safety Discharge Attestations Time Spent in Discharge Care*: greater than 30 min Status at Discharge: Cognitive status at discharge: cognitively intact , Behavioral status at discharge: cooperative , Quality Metrics Clinical Quality Measures [ No reported AMI, CVA or VTE this stay] Coding Level of Care Code Acute Code for Chg Fwd Diagnoses Noncompliance Z91.19 Depression with anxiety F41.8 Diabetic polyneuropathy associated with type 2 diabetes mellitus E11.40 Hypoxemia R09.02 Chronic hypercapnic respiratory failure J96.12 Septic shock A41.9; R65.21 Postoperative anemia D64.9 GERD without esophagitis K21.9 Type 2 diabetes mellitus with diabetic peripheral angiopathy without gangrene, without long-term current use of insulin E11.51 Diabetes mellitus complication detail: with peripheral angiopathy without gangrene Diabetes mellitus complication status: with circulatory complication Diabetes mellitus long-term insulin use: without long-term use Right above-knee amputee Z89.611 Amputation of left lower extremity below knee S88.112P
--- NOTE | 2024-05-04 13:36 | PC.SOCIAL ---
IMM Updated Updated pt on IMM. No questions voiced. Provided pt a copy. Initialed, dated, & timed copy in chart.
[2024-05-04] MEDS: gabapentin 300 mg Capsule PO (15:37)
--- NOTE | 2024-05-04 16:10 | PC.NURSE ---
See Documented VS pulled over in [facility] for blood transfusion.
[2024-05-04 16:39] LABS: Glucose Point of Care 132 mg/dL (70-110)
--- NOTE | 2024-05-04 17:14 | PC.NURSE ---
[facility] called @ 17:10p.m. to arrange stretcher transport home. Spoke with Sujey, trip id # [id number]
[2024-05-04] MEDS: atenolol 50 mg Tablet PO (17:56)
[2024-05-04] MEDS: metformin XR 500 MG Tablet PO (17:56)
[2024-05-04] MEDS: sodium hypochlorite 0.125% Btl 473 mL 1 APPLIC TOPICAL (17:58)
[2024-05-04] MEDS: ketorolac 10 mg Tablet PO (20:09)
[2024-05-04 20:42] LABS: Glucose Point of Care 135 mg/dL (70-110)
== END 2024-05-04 21:58 | disposition home health service (06) | DRG 853 ==
LOC: ER 13:06 → MEDSURG 15:56 → ICU 04-29 01:14 → CSU 05-01 21:24
PROVIDERS: Internal Medicine; Surgery; Admitting Provider Internal Medicine; Emergency Provider Family Medicine; PCP Family Medicine; Visit Provider Internal Medicine
PROC: 0Y6J0Z3 Detachment at Left Lower Leg, Low, Open Approach (ICD-10-PCS; CPT 27880; principal; 2024-04-29 14:00)
PROC: 0Y6J0Z1 Detachment at Left Lower Leg, High, Open Approach (ICD-10-PCS; principal; 2024-05-03 14:45)
DX: A41.9 Sepsis, unspecified organism (principal); R65.21 Severe sepsis with septic shock; L03.116 Cellulitis of left lower limb; I50.32 Chronic diastolic (congestive) heart failure; L97.422 Non-pressure chronic ulcer of left heel and midfoot with fat layer exposed; D62 Acute posthemorrhagic anemia; E87.20 Acidosis, unspecified; J96.12 Chronic respiratory failure with hypercapnia; E11.51 Type 2 diabetes mellitus with diabetic peripheral angiopathy without gangrene; E11.40 Type 2 diabetes mellitus with diabetic neuropathy, unspecified; J44.9 Chronic obstructive pulmonary disease, unspecified; I11.0 Hypertensive heart disease with heart failure; F41.8 Other specified anxiety disorders; G89.29 Other chronic pain; E78.5 Hyperlipidemia, unspecified; F17.200 Nicotine dependence, unspecified, uncomplicated; E11.621 Type 2 diabetes mellitus with foot ulcer; K59.00 Constipation, unspecified; Z79.84 Long term (current) use of oral hypoglycemic drugs; Z89.611 Acquired absence of right leg above knee; Z85.118 Personal history of other malignant neoplasm of bronchus and lung; Z91.199 Patient's noncompliance with other medical treatment and regimen due to unspecified reason; Z86.711 Personal history of pulmonary embolism; Z99.3 Dependence on wheelchair
CPT/HCPCS: 36415; 36416; 36600; 51702; 71045; 73630; 73706; 80048; 80053; 80069; 80202; 81001; 82803; 82962; 83036; 83605; 83735; 84100; 84145; 84443; 85007; 85014; 85018; 85025; 86850; 86900; 86920; 87040; 88307; 88311; 93005; 93926; 93971; 96365; 96372; 96375; 96376; 99285; C9113; J1100; J1170; J1644; J1815; J1885; J1940; J2270; J2371; J2405; J2543; J2704; J3010; J3370; J3475; J3490; J7030; J7050; J7799; P9016; P9045; Q9967

== ENCOUNTER 2024-05-15 19:17 | Emergency (ER) | payer MEDICARE, MEDICAID, SELFPAY ==
[2024-05-15 19:24] VITALS: BP 145/105; PULSE 77; RESP 18; TEMP 36.4; O2SAT 91; BMI 28.0
[2024-05-15 19:38] VITALS: BP 145/105; PULSE 80; RESP 16; O2SAT 97
--- NOTE | 2024-05-15 19:56 | ED_ITS ---
HPI - Wound/Laceration 2 General: Chief Complaint: Wound/Laceration Stated Complaint: POST OP INFECTION Time Seen by Provider: 05/15/24 19:26 History of Present Illness: 64-year-old female with a history of olive ateral BKA, COPD, diabetes, methamphetamine abuse, and a recent infection of her left BKA with an surgical opening and debridement. I spoke with her surgeon who says that she left AMA from the ICU on her postsurgical day 1. She has not yet changed the dressing. She presents today with pain in that area and concern for postop infection. On exam I do not see much erythema. Incision is closed clean and dry. She has had no fevers. Review of Systems 2 Narrative: Constitutional symptoms: Negative except as documented in HPI. Skin symptoms: Negative except as documented in HPI. Eye symptoms: Negative except as documented in HPI. ENMT symptoms: Negative except as documented in HPI. Respiratory symptoms: Negative except as documented in HPI. Cardiovascular symptoms: Negative except as documented in HPI. Gastrointestinal symptoms: Negative except as documented in HPI. Genitourinary symptoms: Negative except as documented in HPI. Musculoskeletal symptoms: Negative except as documented in HPI. Neurologic symptoms: Negative except as documented in HPI. Psychiatric symptoms: Negative except as documented in HPI. Endocrine symptoms: Negative except as documented in HPI. PFSH ED 2 PFSH: Medical History (Updated 05/15/24 @ 20:48 by Sweetie Kern MD) Amputation of left lower extremity below knee Right above-knee amputee Leg swelling GERD without esophagitis Wound dehiscence Non-pressure chronic ulcer of left ankle limited to breakdown of skin Non-pressure chronic ulcer of left heel and midfoot with fat layer exposed Diabetic peripheral neuropathy associated with type 2 diabetes mellitus Postoperative anemia Postoperative hypotension Metabolic acidosis Septic shock Cellulitis of left lower leg Acute hypotension Sepsis Ulcer of left heel Cellulitis Pulmonary embolism Hallux malleus of left foot Non-pressure chronic ulcer of other part of left foot with fat layer exposed Chronic anxiety Essential hypertension Cellulitis Sepsis Chronic hypercapnic respiratory failure Hypoxemia Noncompliance Uses wheelchair AMS (altered mental status) COPD (chronic obstructive pulmonary disease) Metabolic encephalopathy Degenerative joint disease of left knee Closed fracture of left distal femur Hypertension Closed femur fracture Venous stasis ulcer Cellulitis Diabetic neuropathy associated with type 2 diabetes mellitus Diastolic CHF Anemia Substance abuse Depression with anxiety Chronic pain History of DVT of lower extremity post-operative Hyperlipidemia Hypertension History of cardioversion history of SVT vs for other arrhythmia Methamphetamine use Diabetes mellitus, type II Vtbkqma-Diypi-Etlcg disease-like deformity of foot right Lung cancer Torticollis, acquired Has had good results with Botox in the past Lumbar radiculopathy Cervical post-laminectomy syndrome Surgical History (Updated 05/12/24 @ 16:00 by Wilner Hdez DO) Status post above-knee amputation of right lower extremity Hx of neck surgery x 2, posterior laminectomy and cervical fusion with hardware in place, limited ROM neck at baseline Hx of total knee replacement (~2010) Right History of arthroplasty of left knee (~1976) History of partial hysterectomy Hx of dilation and curettage Hx of tubal ligation Hx of appendectomy Family History Family/Other Hypertension Depression Anxiety Diabetes Father Aneurysm Mother Hypertension Brother Diabetes Sister Diabetes Social History Smoking and tobacco/nicotine status: current every day tobacco/nicotine user Alcohol intake: never Substance/Drug Use: current Substance/Drug use frequency: few times a month Additional social history: unknown if patient continues to smoke, documented to smoke previously Marital status: Female Reproductive History: Spontaneous abortions: No Physical Exam 2 Narrative: EXAM NARRATIVE: General: Alert, no acute distress. Skin: Warm, dry. Head: Normocephalic, atraumatic. Neck: Supple, trachea midline. Eye: Extraocular movements are intact. Ears, nose, mouth and throat: mucosa moist. Cardiovascular: Regular, Normal peripheral perfusion. Respiratory: Lungs are clear to auscultation, respirations are non-labored, breath sounds are equal, Symmetrical chest wall expansion. Gastrointestinal: Soft, Nontender, Non distended Musculoskeletal: Bilateral BKA. Left stump has recent surgery. On initial exam the original dressing is in place. There is no pus. No drainage. Neurological: Alert and oriented, No focal neurological deficit observed. Psychiatric: Cooperative, appropriate mood & affect. Course 2 Vital Signs: Vital signs: Vital Signs Temperature 97.5 F L 05/15/24 19:24 Pulse Rate 64 05/15/24 20:09 Respiratory Rate 15 05/15/24 20:09 Blood Pressure 135/87 05/15/24 20:09 Pulse Oximetry 97 05/15/24 20:09 Oxygen Delivery Me thod Nasal Cannula 05/15/24 20:09 Oxygen Flow Rate 2 05/15/24 20:09 MDM - Wound/Laceration Medical Decision Making Medical decision making: Differential diagnosis including but not limited to and based on the above HPI, review of systems and physical exam: White count and inflammatory markers to evaluate for infection. Orders placed to evaluate differential diagnosis based on the above differential, HPI and physical exam Lab Review: Laboratory results were reviewed and interpreted by myself the emergency room physician. CRP and ESR are around 40 which is improved are close to her baseline. Definitely coming down from past measurements. She has no leukocytosis. I reviewed the patient's medical record. Reexamination: Patient remained stable. I evaluated the wound with all of the dressings off. There is some mild erythema and a small amount of skin breakdown because she had not changed her dressing. No signs of infection. No open wound. Consultation: I spoke with Dr. Chirinos and sent him pictures of the patient's postsurgical site and he feels this looks appropriate and recommends send her home and dressing changes with daily washing of her stump. Assessment and plan: Postsurgical wound pain - Discharged home - Discussed plan with patient. Answered any questions. - Evaluation and treatment of this problem were appropriate in the emergency setting. Lab Data 05/15/24 19:48 05/15/24 19:48 Laboratory Results WBC 5.22 10^3/uL (3.29-11.43) 05/15/24 19:48 RBC 2.60 10^6/uL (3.85-5.65) L 05/15/24 19:48 Hgb 7.90 g/dL (11.27-16.99) L 05/15/24 19:48 Hct 27.6 % (36-47) L 05/15/24 19:48 MCV 106.2 fl (85-98) H 05/15/24 19:48 MCH 30.4 pg (27-33) 05/15/24 19:48 MCHC 28.6 g/dL (30-55) L 05/15/24 19:48 RDW 15.9 % (12.1-15.1) H 05/15/24 19:48 Plt Count 384 10^3/cmm (157-399) 05/15/24 19:48 MPV 9.7 fL (7.4-10.4) 05/15/24 19:48 Neut % (Auto) 64.8 % 05/15/24 19:48 Lymph % (Auto) 21.6 % 05/15/24 19:48 [place] % (Auto) 10.3 % 05/15/24 19:48 Eos % (Auto) 2.3 % 05/15/24 19:48 Baso % (Auto) 0.8 % 05/15/24 19:48 Neut # (Auto) 3.38 10^3/uL (1.8-7.7) 05/15/24 19:48 Lymph # (Auto) 1.1 10^3/uL (0.8-4.8) 05/15/24 19:48 [place] # (Auto) 0.5 10^3/uL (0.2-0.9) 05/15/24 19:48 Eos # (Auto) 0.1 10^3/uL (0.0-0.8) 05/15/24 19:48 Baso # (Auto) 0.0 10^3/uL (0.0-0.1) 05/15/24 19:48 Nucleated RBC % (auto) 0 % 05/15/24 19:48 Nucleated RBCs # 0.0 /100WBC 05/15/24 19:48 ESR 42 mm/hr (0-15) H 05/15/24 19:48 Sodium 139 mmol/L (136-145) 05/15/24 19:48 Potassium 4.0 mmol/L (3.5-5.1) 05/15/24 19:48 Chloride 102 mmol/L (98-107) 05/15/24 19:48 Carbon Dioxide 28 mmol/L (22-29) 05/15/24 19:48 Anion Gap 13.0 (5-19) 05/15/24 19:48 BUN 10 mg/dL (8-23) 05/15/24 19:48 Creatinine 0.4 mg/dL (0.5-0.9) L 05/15/24 19:48 GFR Calculation 160.7 mL/min (90-130) H 05/15/24 19:48 Glucose 160 mg/dL (65-115) H 05/15/24 19:48 Calculated Osmolality 290 mOsm/kg (285-295) 05/15/24 19:48 Lactic Acid 1.2 mmol/L (0.5-2.2) 05/15/24 19:48 Calcium 8.3 mg/dL (8.5-10.5) L 05/15/24 19:48 Total Bilirubin 0.2 mg/dL (0.15-1.2) 05/15/24 19:48 AST 10 U/L (0-32) 05/15/24 19:48 ALT 7 U/L (0-33) 05/15/24 19:48 Alkaline Phosphatase 103 U/L (35-105) 05/15/24 19:48 C-Reactive Protein 42.8 mg/L (0.0-4.9) H 05/15/24 19:48 Total Protein 6.2 g/dL (6.6-8.7) L 05/15/24 19:48 Albumin 2.9 g/dL (3.5-5.2) L 05/15/24 19:48 Globulin 3.3 g/dL (1.3-4.6) 05/15/24 19:48 Procalcitonin 0.02 ng/mL (0-0.5) 05/15/24 19:48 No radiology studies performed this visit Discharge Plan Discharge Patient Disposition: Home Clinical Impression: Postoperative pain Below knee amputation Qualifiers: Encounter type: subsequent encounter Laterality: left Qualified Code(s): S 88.112D - Complete traumatic amputation at level between knee and ankle, left lower leg, subsequent encounter Condition: Stable Prescriptions: No Action gabapentin 300 mg capsule 300 mg PO TID Qty: 90 5RF metformin 500 mg tablet extended release 24 hr 500 mg PO BID Qty: 60 5RF diazepam 5 mg tablet 5 mg PO BID PRN (Reason: anxiety) Qty: 60 3RF furosemide 40 mg tablet 40 mg PO DAILY PRN (Reason: Edema) Qty: 90 3RF prochlorperazine maleate 10 mg tablet 10 mg PO BID PRN oxycodone 10 mg tablet 10 mg PO BID PRN (Reason: pain) 5 Days Qty: 10 0RF Rx Instructions: 1/2 to 1 tab two times a day as needed for pain. tizanidine 4 mg tablet 4 mg PO Q8H PRN (Reason: muscle spasticity) Qty: 90 2RF atenolol 50 mg tablet 50 mg PO BID Qty: 60 5RF venlafaxine 150 mg capsule,extended release 24hr 150 mg PO QAM Qty: 90 2RF losartan 50 mg tablet 50 mg PO DAILY Qty: 90 3RF fenofibrate nanocrystallized 145 mg tablet 145 mg PO DAILY Qty: 90 3RF pantoprazole 40 mg tablet,delayed release (DR/EC) 40 mg PO DAILY Qty: 90 3RF ketorolac 10 mg tablet 10 mg PO Q8H PRN (Reason: pain) Qty: 15 0RF Rx Instructions: maximum total duration of 5 days from all oral, intranasal, or parenteral formulations (DME) Hospital bed See Rx Instructions .Route .MEDSUPPLY Qty: 1 0RF Rx Instructions: Please issue adjustable hospital bed. lidocaine-prilocaine 2.5-2.5 % cream 1 applic topical BID nystatin 100,000 unit/gram powder 1 applic topical TID amoxicillin-pot clavulanate 875-125 mg tablet 1 tab PO BID Qty: 10 0RF Senna-S 8.6-50 mg tablet 1 tab-cap PO DAILY Qty: 10 0RF albuterol sulfate 90 mcg/actuation HFA aerosol inhaler 2 inh INHALATION Q4H PRN (Reason: shortness of breath or wheezing) Qty: 18 0RF Methadone (Unknown Source) See Rx Instructions .ROUTE .COMPLEX Rx Instructions: DIRECTED- UNKNOWN SOURCE Discharge Orders: Discharge ED (Routine); Ordered 05/15/24 Ordered By: Sweetie Kern Referrals: Wilner Hdez DO [Primary Care Provider] - Hakeem Chirinos DO [Physician] - (Please follow-up with Dr. Chirinos as previously instructed. If you do not have an appointment scheduled 1 for within the next 4 to 7 days.) Discharge Diet: Usual diet Discharge Activity: Increase activity as tolerated Patient Instructions: Below the Knee Amputation (DC) Activity Restrictions/Additional Instructions: Clean your surgical site daily. Keep covered with dry gauze. Thank you for choosing [facility] for your healthcare needs today. Please realize this is an emergency room and that we are providing you with a medical screening exam and this may not be complete and all inclusive of all the testing and or work up that you may need to determine your ailment or severity of your illness. You have been screened and evaluated and felt safe for discharge. Health conditions do change or evolve sometimes and as such it is important that you follow up with your Primary Doctor to be re checked, 3-5 days is a general good time frame for follow up. You are always welcome to return to the ED for re assessment if your symptoms are worsening or you have new concerns Coding Level of Care Code ED Mailing Manager for Trent Crews
[2024-05-15 20:01] LABS: Basophils % 0.8 %; Eosinophils # 0.1 10^3/uL (0.0-0.8); Eosinophils % 2.3 %; Hematocrit 27.6 % (36-47); Lymphocytes # 1.1 10^3/uL (0.8-4.8); Lymphocytes % 21.6 %; Mean Corpuscular HGB Conc 28.6 g/dL (30-55); Mean Corpuscular Hemoglobin 30.4 pg (27-33); Mean Corpuscular Volume 106.2 fl (85-98); Mean Platelet Volume 9.7 fL (7.4-10.4); Monocytes # 0.5 10^3/uL (0.2-0.9); Monocytes % 10.3 %; Neutrophils # 3.38 10^3/uL (1.8-7.7); Neutrophils % 64.8 %; Nucleated Red Blood Cells % 0 %; Platelet Count 384 10^3/cmm (157-399); Red Cell Distribution Width 15.9 % (12.1-15.1); White Blood Count 5.22 10^3/uL (3.29-11.43)
[2024-05-15 20:09] VITALS: BP 135/87; PULSE 64; RESP 15; O2SAT 97
[2024-05-15 20:17] LABS: Erythrocyte Sedimentation Rate 42 mm/hr (0-15)
[2024-05-15 20:20] LABS: Alanine Aminotransferase 7 U/L (0-33); Albumin Level 2.9 g/dL (3.5-5.2); Alkaline Phosphatase 103 U/L (35-105); Aspartate Amino Transferase 10 U/L (0-32); Blood Urea Nitrogen 10 mg/dL (8-23); C Reactive Protein 42.8 mg/L (0.0-4.9); Calcium 8.3 mg/dL (8.5-10.5); Carbon Dioxide 28 mmol/L (22-29); Chloride 102 mmol/L (98-107); Creatinine Clr Calc Pharmacy 150.6212; Globulin 3.3 g/dL (1.3-4.6); Glomerular Filtration Rate 160.7 mL/min (90-130); Glucose 160 mg/dL (65-115); Lactic Sepsis W/Reflex 1.2 mmol/L (0.5-2.2); Osmolality Calculated 290 mOsm/kg (285-295); Sodium 139 mmol/L (136-145); Total Bilirubin 0.2 mg/dL (0.15-1.2); Total Protein 6.2 g/dL (6.6-8.7)
[2024-05-15 20:26] LABS: Procalcitonin 0.02 ng/mL (0-0.5)
[2024-05-15 22:14] VITALS: PULSE 67; O2SAT 96
[2024-05-15 23:44] VITALS: BP 135/87; PULSE 67; RESP 15; TEMP 36.4; O2SAT 96
== END 2024-05-15 23:45 | disposition home or self-care (01) ==
PROVIDERS: Emergency Provider Emergency Medicine; PCP Family Medicine
DX: G89.18 Other acute postprocedural pain (principal); Z89.512 Acquired absence of left leg below knee; Z89.511 Acquired absence of right leg below knee; J44.9 Chronic obstructive pulmonary disease, unspecified; E11.40 Type 2 diabetes mellitus with diabetic neuropathy, unspecified; I11.0 Hypertensive heart disease with heart failure; I50.30 Unspecified diastolic (congestive) heart failure; E78.5 Hyperlipidemia, unspecified; Z85.118 Personal history of other malignant neoplasm of bronchus and lung; Z72.0 Tobacco use
CPT/HCPCS: 80053; 83605; 84145; 85025; 85651; 86140; 99283

== ENCOUNTER → 2024-05-19 14:47 | Outpatient (BNVA) | payer MEDICARE, MEDICAID, SELFPAY | PROVIDERS: PCP Family Medicine; Visit Provider Thoracic Surgery (Cardiothoracic Vascular Surgery) | DX: E11.621 Type 2 diabetes mellitus with foot ulcer (principal); L97.421 Non-pressure chronic ulcer of left heel and midfoot limited to breakdown of skin; L97.521 Non-pressure chronic ulcer of other part of left foot limited to breakdown of skin; L98.491 Non-pressure chronic ulcer of skin of other sites limited to breakdown of skin; T87.81 Dehiscence of amputation stump; Y83.8 Other surgical procedures as the cause of abnormal reaction of the patient, or of later complication, without mention of misadventure at the time of the procedure; Z89.512 Acquired absence of left leg below knee | CPT/HCPCS: 97597 ==

== ENCOUNTER → 2024-05-27 08:37 | Outpatient (BNVA) | payer MEDICARE, MEDICAID, SELFPAY | PROVIDERS: PCP Family Medicine; Visit Provider Thoracic Surgery (Cardiothoracic Vascular Surgery) | DX: I96 Gangrene, not elsewhere classified (principal); L98.491 Non-pressure chronic ulcer of skin of other sites limited to breakdown of skin; T87.81 Dehiscence of amputation stump; Y83.8 Other surgical procedures as the cause of abnormal reaction of the patient, or of later complication, without mention of misadventure at the time of the procedure; Z89.512 Acquired absence of left leg below knee | CPT/HCPCS: 97597; 97598; A6220 ==

== ENCOUNTER → 2024-06-02 10:11 | Outpatient (BNVA) | payer MEDICARE, MEDICAID, SELFPAY | PROVIDERS: PCP Family Medicine; Visit Provider Thoracic Surgery (Cardiothoracic Vascular Surgery) | DX: I96 Gangrene, not elsewhere classified (principal); T81.31XD Disruption of external operation (surgical) wound, not elsewhere classified, subsequent encounter; Y83.8 Other surgical procedures as the cause of abnormal reaction of the patient, or of later complication, without mention of misadventure at the time of the procedure | CPT/HCPCS: 97597 ==

== ENCOUNTER → 2024-06-09 10:08 | Outpatient (BNVA) | payer MEDICARE, MEDICAID, SELFPAY | PROVIDERS: PCP Family Medicine; Visit Provider Nurse Practitioner Family | DX: T81.31XD Disruption of external operation (surgical) wound, not elsewhere classified, subsequent encounter (principal); Y83.8 Other surgical procedures as the cause of abnormal reaction of the patient, or of later complication, without mention of misadventure at the time of the procedure; T87.81 Dehiscence of amputation stump; Z89.512 Acquired absence of left leg below knee | CPT/HCPCS: 11042; 11045; 87070; 87176; 87205 ==

== ENCOUNTER → 2024-06-16 09:37 | Outpatient (BNVA) | payer MEDICARE, MEDICAID, SELFPAY | PROVIDERS: PCP Family Medicine; Visit Provider Thoracic Surgery (Cardiothoracic Vascular Surgery) | DX: T81.31XD Disruption of external operation (surgical) wound, not elsewhere classified, subsequent encounter (principal); Y83.8 Other surgical procedures as the cause of abnormal reaction of the patient, or of later complication, without mention of misadventure at the time of the procedure; T87.81 Dehiscence of amputation stump; Z89.512 Acquired absence of left leg below knee | CPT/HCPCS: 11042; 11045; 97597 ==

== ENCOUNTER → 2024-06-22 08:14 | Outpatient (BNVA) | payer MEDICARE, MEDICAID, SELFPAY | PROVIDERS: PCP Family Medicine; Visit Provider Thoracic Surgery (Cardiothoracic Vascular Surgery) | DX: T81.31XD Disruption of external operation (surgical) wound, not elsewhere classified, subsequent encounter (principal); Y83.8 Other surgical procedures as the cause of abnormal reaction of the patient, or of later complication, without mention of misadventure at the time of the procedure; T87.81 Dehiscence of amputation stump; Z89.512 Acquired absence of left leg below knee | CPT/HCPCS: 11042; 11045; 97597 ==

== ENCOUNTER → 2024-07-07 10:02 | Outpatient (BNVA) | payer MEDICARE, MEDICAID, SELFPAY | PROVIDERS: PCP Family Medicine; Visit Provider Thoracic Surgery (Cardiothoracic Vascular Surgery) | DX: I96 Gangrene, not elsewhere classified (principal); T81.31XD Disruption of external operation (surgical) wound, not elsewhere classified, subsequent encounter; Y83.8 Other surgical procedures as the cause of abnormal reaction of the patient, or of later complication, without mention of misadventure at the time of the procedure; T87.81 Dehiscence of amputation stump; Z89.512 Acquired absence of left leg below knee | CPT/HCPCS: 97597; 97598 ==

== ENCOUNTER → 2024-07-14 10:12 | Outpatient (BNVA) | payer MEDICARE, MEDICAID, SELFPAY | PROVIDERS: PCP Family Medicine; Visit Provider Thoracic Surgery (Cardiothoracic Vascular Surgery) | DX: I96 Gangrene, not elsewhere classified (principal); T81.31XD Disruption of external operation (surgical) wound, not elsewhere classified, subsequent encounter; Y83.8 Other surgical procedures as the cause of abnormal reaction of the patient, or of later complication, without mention of misadventure at the time of the procedure; T87.81 Dehiscence of amputation stump; Z89.512 Acquired absence of left leg below knee | CPT/HCPCS: 97597; 97598; A6210; A6248 ==

== ENCOUNTER → 2024-07-21 10:26 | Outpatient (BNVA) | payer MEDICARE, MEDICAID, SELFPAY | PROVIDERS: PCP Family Medicine; Visit Provider Thoracic Surgery (Cardiothoracic Vascular Surgery) | DX: T81.31XD Disruption of external operation (surgical) wound, not elsewhere classified, subsequent encounter (principal); Y83.8 Other surgical procedures as the cause of abnormal reaction of the patient, or of later complication, without mention of misadventure at the time of the procedure; I96 Gangrene, not elsewhere classified; T87.81 Dehiscence of amputation stump; Z89.512 Acquired absence of left leg below knee | CPT/HCPCS: 97597; 97598; A6210 ==

== ENCOUNTER → 2024-08-04 09:58 | Outpatient (BNVA) | payer MEDICARE, MEDICAID, SELFPAY | PROVIDERS: PCP Family Medicine; Visit Provider Thoracic Surgery (Cardiothoracic Vascular Surgery) | DX: I96 Gangrene, not elsewhere classified (principal); T81.31XD Disruption of external operation (surgical) wound, not elsewhere classified, subsequent encounter; Y83.8 Other surgical procedures as the cause of abnormal reaction of the patient, or of later complication, without mention of misadventure at the time of the procedure; T87.81 Dehiscence of amputation stump; Z89.512 Acquired absence of left leg below knee | CPT/HCPCS: 99211 ==

== ENCOUNTER → 2024-08-11 09:06 | Outpatient (BNVA) | payer MEDICARE, MEDICAID, SELFPAY | PROVIDERS: PCP Family Medicine; Visit Provider Thoracic Surgery (Cardiothoracic Vascular Surgery) | DX: T87.81 Dehiscence of amputation stump (principal); Y83.8 Other surgical procedures as the cause of abnormal reaction of the patient, or of later complication, without mention of misadventure at the time of the procedure; Z89.512 Acquired absence of left leg below knee; L98.491 Non-pressure chronic ulcer of skin of other sites limited to breakdown of skin; Z09 Encounter for follow-up examination after completed treatment for conditions other than malignant neoplasm | CPT/HCPCS: 97597; 97598 ==

== ENCOUNTER → 2024-08-20 09:57 | Outpatient (BNVA) | payer MEDICARE, MEDICAID, SELFPAY | PROVIDERS: PCP Family Medicine; Visit Provider Thoracic Surgery (Cardiothoracic Vascular Surgery) | DX: T87.81 Dehiscence of amputation stump (principal); Y83.8 Other surgical procedures as the cause of abnormal reaction of the patient, or of later complication, without mention of misadventure at the time of the procedure; Z89.512 Acquired absence of left leg below knee; Z09 Encounter for follow-up examination after completed treatment for conditions other than malignant neoplasm | CPT/HCPCS: 97597; 97598 ==

== ENCOUNTER → 2024-09-03 09:59 | Outpatient (BNVA) | payer MEDICARE, MEDICAID, SELFPAY | PROVIDERS: PCP Family Medicine; Visit Provider Thoracic Surgery (Cardiothoracic Vascular Surgery) | DX: I96 Gangrene, not elsewhere classified (principal); T87.81 Dehiscence of amputation stump; Y83.8 Other surgical procedures as the cause of abnormal reaction of the patient, or of later complication, without mention of misadventure at the time of the procedure; Z89.512 Acquired absence of left leg below knee | CPT/HCPCS: 97597; 97598 ==

== ENCOUNTER → 2024-09-17 09:45 | Outpatient (BNVA) | payer MEDICARE, MEDICAID, SELFPAY | PROVIDERS: PCP Family Medicine; Visit Provider Thoracic Surgery (Cardiothoracic Vascular Surgery) | DX: I96 Gangrene, not elsewhere classified (principal); T81.31XD Disruption of external operation (surgical) wound, not elsewhere classified, subsequent encounter; Y83.8 Other surgical procedures as the cause of abnormal reaction of the patient, or of later complication, without mention of misadventure at the time of the procedure | CPT/HCPCS: 97597; 97598; A6197; A6252 ==

== ENCOUNTER → 2024-09-24 08:58 | Outpatient (BNVA) | payer MEDICARE, MEDICAID, SELFPAY | PROVIDERS: PCP Family Medicine; Visit Provider Thoracic Surgery (Cardiothoracic Vascular Surgery) | DX: I96 Gangrene, not elsewhere classified (principal); T87.81 Dehiscence of amputation stump; Y83.8 Other surgical procedures as the cause of abnormal reaction of the patient, or of later complication, without mention of misadventure at the time of the procedure; Z89.512 Acquired absence of left leg below knee | CPT/HCPCS: 97597; 97598 ==

== ENCOUNTER → 2024-10-13 09:12 | Outpatient (BNVA) | payer MEDICARE, MEDICAID, SELFPAY | PROVIDERS: PCP Family Medicine; Visit Provider Thoracic Surgery (Cardiothoracic Vascular Surgery) | DX: I96 Gangrene, not elsewhere classified (principal); T87.81 Dehiscence of amputation stump; Y83.8 Other surgical procedures as the cause of abnormal reaction of the patient, or of later complication, without mention of misadventure at the time of the procedure; Z89.512 Acquired absence of left leg below knee | CPT/HCPCS: 97597; 97598 ==

== ENCOUNTER → 2024-10-27 09:45 | Outpatient (BNVA) | payer MEDICARE, MEDICAID, SELFPAY | PROVIDERS: PCP Family Medicine; Visit Provider Thoracic Surgery (Cardiothoracic Vascular Surgery) | DX: I96 Gangrene, not elsewhere classified (principal); T87.81 Dehiscence of amputation stump; Y83.8 Other surgical procedures as the cause of abnormal reaction of the patient, or of later complication, without mention of misadventure at the time of the procedure; Z89.512 Acquired absence of left leg below knee | CPT/HCPCS: 11042; 97597 ==

== ENCOUNTER → 2024-11-03 10:00 | Outpatient (BNVA) | payer MEDICARE, MEDICAID, SELFPAY | PROVIDERS: PCP Family Medicine; Visit Provider Family Medicine | DX: R79.89 Other specified abnormal findings of blood chemistry; I10 Essential (primary) hypertension; E78.5 Hyperlipidemia, unspecified; E55.9 Vitamin D deficiency, unspecified; E11.51 Type 2 diabetes mellitus with diabetic peripheral angiopathy without gangrene; F41.8 Other specified anxiety disorders; F51.05 Insomnia due to other mental disorder; F40.9 Phobic anxiety disorder, unspecified | CPT/HCPCS: 80053; 80061; 82306; 82533; 82607; 82728; 82746; 83540; 83735; 84439; 84443; 85025 ==

== ENCOUNTER → 2024-11-04 09:34 | Outpatient (BNVA) | payer MEDICARE, MEDICAID, SELFPAY | PROVIDERS: PCP Family Medicine; Visit Provider Thoracic Surgery (Cardiothoracic Vascular Surgery) | DX: Z09 Encounter for follow-up examination after completed treatment for conditions other than malignant neoplasm (principal); Z87.2 Personal history of diseases of the skin and subcutaneous tissue | CPT/HCPCS: 99213 ==

== ENCOUNTER → 2024-12-09 10:19 | Outpatient (BNVA) | payer MEDICAID, SELFPAY | PROVIDERS: PCP Family Medicine; Visit Provider Registered Nurse Neonatal Intensive Care | DX: J02.9 Acute pharyngitis, unspecified (principal) | CPT/HCPCS: 87880 ==

== ENCOUNTER → 2024-12-11 10:10 | Outpatient (BNVA) | payer MEDICAID, SELFPAY | PROVIDERS: PCP Family Medicine; Visit Provider Thoracic Surgery (Cardiothoracic Vascular Surgery) | DX: Z09 Encounter for follow-up examination after completed treatment for conditions other than malignant neoplasm (principal); Z87.2 Personal history of diseases of the skin and subcutaneous tissue | CPT/HCPCS: 99212 ==

== ENCOUNTER 2024-12-29 17:31 | Observation (INO) | payer MEDICARE, MEDICAID, SELFPAY ==
[2024-12-29] VITALS (33 sets, daily range): BP systolic 103–161; BP diastolic 50–91; PULSE 72–83; RESP 13–22; TEMP 36.7; O2SAT 90–98
[2024-12-29 18:13] LABS: Basophils % 0.2 %; Eosinophils # 0.2 10^3/uL (0.0-0.8); Eosinophils % 1.7 %; Hematocrit 41.7 % (36-47); Lymphocytes # 1.1 10^3/uL (0.8-4.8); Lymphocytes % 9.1 %; Mean Corpuscular HGB Conc 30.9 g/dL (30-55); Mean Corpuscular Hemoglobin 31.9 pg (27-33); Mean Platelet Volume 9.7 fL (7.4-10.4); Monocytes # 1.2 10^3/uL (0.2-0.9); Monocytes % 9.5 %; Neutrophils # 9.69 10^3/uL (1.8-7.7); Neutrophils % 79.2 %; Nucleated Red Blood Cells % 0 %; Platelet Count 264 10^3/cmm (157-399); Red Blood Count 4.05 10^6/uL (3.85-5.65); Red Cell Distribution Width 13.5 % (12.1-15.1); White Blood Count 12.25 10^3/uL (3.29-11.43)
[2024-12-29 18:31] LABS: Alanine Aminotransferase 17 U/L (0-33); Albumin Level 3.2 g/dL (3.5-5.2); Alkaline Phosphatase 110 U/L (35-105); Anion Gap 15.3 (5-19); Aspartate Amino Transferase 16 U/L (0-32); Blood Urea Nitrogen 21 mg/dL (8-23); C Reactive Protein 163.1 mg/L (0.0-4.9); Carbon Dioxide 27 mmol/L (22-29); Chloride 101 mmol/L (98-107); Creatinine Clr Calc Pharmacy 122.4507; Globulin 3.7 g/dL (1.3-4.6); Glomerular Filtration Rate 124.2 mL/min (90-130); Glucose 183 mg/dL (65-115); Osmolality Calculated 296 mOsm/kg (285-295); Potassium 4.3 mmol/L (3.5-5.1); Sodium 139 mmol/L (136-145); Total Bilirubin 0.5 mg/dL (0.15-1.2); Total Protein 6.9 g/dL (6.6-8.7)
--- NOTE | 2024-12-29 18:33 | W.ED.SKABFB ---
HPI - Skin/Abscess/Foreign Bdy General: Chief complaint: Skin/Abscess/Foreign Body Stated complaint: Skin infection Time Seen by Provider: 12/29/24 17:41 History of Present Illness: 64-year-old female with a history of type 2 diabetes, left BKA, right AKA, diabetic peripheral neuropathy, PE, chronic hypercapnic respiratory failure, COPD, chronic hypoxemic respiratory failure, diastolic CHF who presents emergency room by ambulance with a yeast infection in the folds of her stomach. She says it has been getting much worse over the last few days. This is present in her pannus, groin and upper thighs. She says she has had some yellow weeping. She has been applying nystatin cream to no avail. Related Data Home Medications ?Medication ?Instructions ?Recorded ?Confirmed Methadone (Unknown Source) See Rx Instructions .Route .COMPLEX 12/16/23 12/09/24 atenolol 50 mg tablet 100 mg PO BID 11/03/24 12/09/24 Previous Rx's ?Medication ?Instructions ?Recorded albuterol sulfate 90 mcg/actuation 2 inh inhalation Q4H PRN shortness 07/17/23 aerosol inhaler of breath or wheezing #18 grams pantoprazole 40 mg tablet,delayed 40 mg PO DAILY #90 tabs 02/26/24 release furosemide 40 mg tablet 40 mg PO DAILY PRN Edema #90 tabs 03/25/24 sennosides 8.6 mg-docusate sodium 1 tab-cap PO DAILY #10 tabs 05/04/24 50 mg tablet (Senna-S) prochlorperazine maleate 10 mg 10 mg PO BID PRN nausea and 08/06/24 tablet vomiting #60 tabs nystatin 100,000 unit/gram topical See Rx Instructions .Route 08/11/24 powder .COMPLEX #15 grams losartan 100 mg tablet 100 mg PO DAILY #90 tabs 09/04/24 mecobalamin (vitamin B12) 1,000 1,000 mcg PO DAILY #90 tabs 09/04/24 mcg chewable tablet gabapentin 300 mg capsule See Rx Instructions .Route 09/14/24 .COMPLEX #90 caps metformin 500 mg tablet,extended See Rx Instructions .Route 09/14/24 release 24 hr .COMPLEX #60 tabs tizanidine 4 mg tablet See Rx Instructions .Route 09/14/24 .COMPLEX #90 tabs diazepam 5 mg tablet 5 mg PO DAILY PRN anxiety 30 days 11/03/24 #10 tabs fenofibrate nanocrystallized 145 145 mg PO DAILY #90 tabs 11/03/24 mg tablet lidocaine-prilocaine 2.5 %-2.5 % See Rx Instructions .Route 11/03/24 topical cream .COMPLEX #30 grams hydrocortisone 2.5 % topical cream 1 applic IA DAILY PRN hemorrhoids 11/09/24 with perineal applicator 30 days #30 grams (Proctozone-HC) amoxicillin 875 mg tablet 875 mg PO BID 10 days #20 tabs 12/09/24 fluticasone propionate 50 1 spray intranasal DAILY nasal 12/09/24 mcg/actuation nasal congestion #16 grams spray,suspension (Flonase Allergy Relief) ketoconazole 2 % shampoo 1 applic topical .3x weekly #120 mL 12/12/24 Allergies Allergy/AdvReac Type Severity Reaction Status Date / Time nalbuphine Allergy Unknown sick to Verified 12/09/24 09:52 stomach adhesive tape Allergy rash Verified 12/09/24 09:52 amitriptyline Allergy Unknown Verified 12/09/24 09:52 morphine Allergy ADR-Vomitin Verified 12/09/24 09:52 g nitrofurantoin (From Allergy ADR-Vomitin Verified 12/09/24 09:52 Macrobid) g Sulfa (Sulfonamide Allergy Itch all Verified 12/09/24 09:52 Antibiotics) over Review of Systems Narrative: Constitutional symptoms: Negative except as documented in HPI. Skin symptoms: Negative except as documented in HPI. Eye symptoms: Negative except as documented in HPI. ENMT symptoms: Negative except as documented in HPI. Respiratory symptoms: Negative except as documented in HPI. Cardiovascular symptoms: Negative except as documented in HPI. Gastrointestinal symptoms: Negative except as documented in HPI. Genitourinary symptoms: Negative except as documented in HPI. Musculoskeletal symptoms: Negative except as documented in HPI. Neurologic symptoms: Negative except as documented in HPI. Psychiatric symptoms: Negative except as documented in HPI. Endocrine symptoms: Negative except as documented in HPI. PFS ED PFSH: Medical History (Updated 12/29/24 @ 20:23 by Sweetie Kern MD) Left below-knee amputee GERD without esophagitis Unable to ambulate Essential hypertension Depression with anxiety Diabetes mellitus, type II Hx of malignant neoplasm of lung hx of lung cancer L upper lobe txed w/ radiation only at Man Amputation of left lower extremity below knee Right above-knee amputee Leg swelling Wound dehiscence Diabetic peripheral neuropathy associated with type 2 diabetes mellitus Postoperative anemia Pulmonary embolism Chronic anxiety Chronic hypercapnic respiratory failure Noncompliance Uses wheelchair COPD (chronic obstructive pulmonary disease) Degenerative joint disease of left knee Closed fracture of left distal femur Closed femur fracture Cellulitis Diabetic neuropathy associated with type 2 diabetes mellitus Diastolic CHF Substance abuse Chronic pain History of DVT of lower extremity post-operative Hyperlipidemia History of cardioversion history of SVT vs for other arrhythmia Methamphetamine use Tkvhtze-Gjdmf-Oltvl disease-like deformity of foot right Torticollis, acquired Has had good results with Botox in the past Lumbar radiculopathy Cervical post-laminectomy syndrome Surgical History (Updated 09/04/24 @ 17:36 by Shelly Rahman MD) History of left lower extremity amputation below the knee Status post above-knee amputation of right lower extremity Hx of neck surgery x 2, posterior laminectomy and cervical fusion with hardware in place, limited ROM neck at baseline Hx of total knee replacement (~2010) Right History of arthroplasty of left knee (~1976) History of partial hysterectomy ovaries remaining; hyst done for bleeding, no cancer Hx of dilation and curettage Hx of tubal ligation Hx of appendectomy Family History Family/Other Hypertension Depression Anxiety Diabetes Father Aneurysm Mother Hypertension Brother Diabetes Sister Diabetes Social History (Updated 09/04/24 @ 14:59 by Shelly Rahman MD) Smoking and tobacco/nicotine status: current every day tobacco/nicotine user cigarettes Alcohol intake: never Substance/Drug Use: current Substance/Drug use frequency: few times a month Other substance/drug use details: has used meth and marijuana; last meth use early Aug 11 Additional social history: unknown if patient continues to smoke, documented to smoke previously Household members: none Marital status: Life Partner Marital status details: but life partner X 23yrs--he is now in half-way--has charges Number of children: 2 Highest education level completed: Associate Degree: Occupational, Technical, Vocational Program Education level details: nursing school, cosmetology school Current occupational status: disabled Female Reproductive History: Spontaneous abortions: No Physical Exam Narrative: EXAM NARRATIVE: General: Alert, no acute distress. Skin: Warm, dry. Excoriating red rash that looks typical for a yeast infection in her pannus area groin and thighs. There is white powder covering a lot of this. Head: Normocephalic, atraumatic. Neck: Supple, trachea midline. Eye: Extraocular movements are intact. Ears, nose, mouth and throat: mucosa moist. Cardiovascular: Regular, Normal peripheral perfusion. Respiratory: Lungs are clear to auscultation, respirations are non-labored, breath sounds are equal, Symmetrical chest wall expansion. Gastrointestinal: Soft, Nontender, Non distended Musculoskeletal: Bilateral leg amputation Neurological: Alert and oriented, No focal neurological deficit observed. Psychiatric: Cooperative, appropriate mood & affect. Course Vital Signs: Vital signs: Vital Signs Temperature 98.0 F 12/29/24 17:40 Pulse Rate 72 12/29/24 18:51 Respiratory Rate 16 12/29/24 18:51 Blood Pressure 161/50 12/29/24 18:51 Pulse Oximetry 94 12/29/24 18:51 Oxygen Delivery Me thod Nasal Cannula 12/29/24 18:51 Oxygen Flow Rate 3 12/29/24 18:51 MDM - Skin/Abscess/Foreign Bdy Medicial Decision Making Differential diagnosis: Concern for bacterial infection. Would also have concern for things like Jermain's gangrene or abscess so CT was ordered. Lab Review: Laboratory results were reviewed and interpreted by myself the emergency room physician. Moderate leukocytosis with a white count of 12,000. CRP is very elevated. At 163. She is always elevated but not usually this elevated. Renal function is fairly normal at 21 0.5. Liver enzymes are normal. CT of the abdomen and pelvis with contrast: Extensive subcutaneous fat stranding along the lateral aspect of the left hip and buttocks along the right lateral abdominal subcutaneous fat no obvious abscess. No obstruction or inflammatory process associated with bowel. No free air. This was reviewed and interpreted by myself the emergency room physician. I also reviewed the radiology report. This exam is consistent with physical exam. Fairly severe cellulitis. I reviewed the patient's medical record. Reexamination: Patient remained stable. No increased work of breathing. No altered mental status. No focal motor deficits. Consultation: I spoke with Dr. Spencer who is rn bone marrow transplant for the hospitalist service who agrees to admission to observation. Assessment and plan: Cellulitis ?This had started his yeast infection but difficult to say if this is not bacterial. Given her history will cover with broad-spectrum antibiotics. Fluconazole for yeast. Cefepime and Zyvox for bacterial. Possible staph -I discussed the patient with the hospitalist on-call who is admitting the patient. - Discussed findings and plan with patient. Answered any questions. - All laboratory values were reviewed and interpreted personally by myself, the ER physician - All imaging was reviewed and interpreted personally by myself, the ER physician. - Evaluation and treatment of this problem were appropriate in the emergency setting Lab Data 12/29/24 18:04 12/29/24 18:04 Radiology Impressions Abdomen/Pelvis CT 12/29/24 18:37 IMPRESSION: 1. Extensive subcutaneous fat stranding along the lateral aspect of the left hip and buttocks and along the right lateral abdominal subcutaneous fat. No abscess. 2. No bowel obstruction or inflammatory process associated with the bowel. 3. No free air or significant free fluid in the abdomen or pelvis. 4. The appendix is not visualized but there are no secondary signs of acute appendicitis. Laboratory Results WBC 12.25 10^3/uL (3.29-11.43) H 12/29/24 18:04 RBC 4.05 10^6/uL (3.85-5.65) 12/29/24 18:04 Hgb 12.90 g/dL (11.27-16.99) 12/29/24 18:04 Hct 41.7 % (36-47) 12/29/24 18:04 MCV 103.0 fl (85-98) H 12/29/24 18:04 MCH 31.9 pg (27-33) 12/29/24 18:04 MCHC 30.9 g/dL (30-55) 12/29/24 18:04 RDW 13.5 % (12.1-15.1) 12/29/24 18:04 Plt Count 264 10^3/cmm (157-399) 12/29/24 18:04 MPV 9.7 fL (7.4-10.4) 12/29/24 18:04 Neut % (Auto) 79.2 % 12/29/24 18:04 Lymph % (Auto) 9.1 % 12/29/24 18:04 [place] % (Auto) 9.5 % 12/29/24 18:04 Eos % (Auto) 1.7 % 12/29/24 18:04 Baso % (Auto) 0.2 % 12/29/24 18:04 Neut # (Auto) 9.69 10^3/uL (1.8-7.7) H 12/29/24 18:04 Lymph # (Auto) 1.1 10^3/uL (0.8-4.8) 12/29/24 18:04 [place] # (Auto) 1.2 10^3/uL (0.2-0.9) H 12/29/24 18:04 Eos # (Auto) 0.2 10^3/uL (0.0-0.8) 12/29/24 18:04 Baso # (Auto) 0.0 10^3/uL (0.0-0.1) 12/29/24 18:04 Nucleated RBC % (auto) 0 % 12/29/24 18:04 Nucleated RBCs # 0.0 /100WBC 12/29/24 18:04 Sodium 139 mmol/L (136-145) 12/29/24 18:04 Potassium 4.3 mmol/L (3.5-5.1) 12/29/24 18:04 Chloride 101 mmol/L (98-107) 12/29/24 18:04 Carbon Dioxide 27 mmol/L (22-29) 12/29/24 18:04 Anion Gap 15.3 (5-19) 12/29/24 18:04 BUN 21 mg/dL (8-23) 12/29/24 18:04 Creatinine 0.5 mg/dL (0.5-0.9) 12/29/24 18:04 GFR Calculation 124.2 mL/min (90-130) 12/29/24 18:04 Glucose 183 mg/dL (65-115) H 12/29/24 18:04 Calculated Osmolality 296 mOsm/kg (285-295) H 12/29/24 18:04 Calcium 9.0 mg/dL (8.5-10.5) 12/29/24 18:04 Total Bilirubin 0.5 mg/dL (0.15-1.2) 12/29/24 18:04 AST 16 U/L (0-32) 12/29/24 18:04 ALT 17 U/L (0-33) 12/29/24 18:04 Alkaline Phosphatase 110 U/L (35-105) H 12/29/24 18:04 C-Reactive Protein 163.1 mg/L (0.0-4.9) H 12/29/24 18:04 Total Protein 6.9 g/dL (6.6-8.7) 12/29/24 18:04 Albumin 3.2 g/dL (3.5-5.2) L 12/29/24 18:04 Globulin 3.7 g/dL (1.3-4.6) 12/29/24 18:04 All radiology interpretation(s) finalized by discharge Discharge Plan Discharge Patient Disposition: Placed in Observation Clinical Impression: Cellulitis Coding Level of Care Code ED [employer] Mach[employer] Instructor for Trent Crews
--- NOTE | 2024-12-29 18:37 | CTR_ITS ---
PROCEDURE INFORMATION: Exam: CT Abdomen And Pelvis With Contrast Exam date and time: 12/29/2024 7:25 PM Age: 64 years old Clinical indication: Other: Abd wall infection; Additional info: Abdominal wall infection, rule out internal infection TECHNIQUE: Imaging protocol: Computed tomography of the abdomen and pelvis with contrast. Radiation optimization: All CT scans at this facility use at least one of these dose optimization techniques: automated exposure control; mA and/or kV adjustment per patient size (includes targeted exams where dose is matched to clinical indication); or iterative reconstruction. Contrast material: OMNIPAQUE 350; Contrast volume: 100 ml; Contrast route: INTRAVENOUS (IV); COMPARISON: CT abdomen pelvis wo con [id number] 12/17/2023 1:23 PM RADIATION DOSE METRICS: Total DLP (mGy-cm): 969.34 FINDINGS: Coronary arteries: Coronary arterial atherosclerotic calcifications are present. Liver: Normal. No mass. Gallbladder and biliary ducts: Normal. No calcified stones. No ductal dilation. Pancreas: Normal. No ductal dilation. Spleen: Multiple punctate calcifications in the spleen consistent with prior granulomatous infection. Adrenal glands: Normal. No mass. Kidneys and ureters: There are 2 nonobstructing stones in the right kidney measuring up to 3 mm. No hydronephrosis. Stomach and bowel: Unremarkable. No obstruction. No mucosal thickening. Appendix: The appendix is not visualized but there are no secondary signs of acute appendicitis. Intraperitoneal space: Unremarkable. No free air. No significant fluid collection. Vasculature: Unremarkable. No abdominal aortic aneurysm. Lymph nodes: Unremarkable. No enlarged lymph nodes. Urinary bladder: Unremarkable as visualized. Reproductive: Unremarkable as visualized. Bones/joints: Multilevel severe degenerative disc disease in the upper and mid lumbar spine. Soft tissues: Anasarca. Severe degenerative changes in the left hip joint with architectural distortion and flattening of the left femoral head. Extensive subcutaneous fat stranding along the lateral aspect of the left hip and buttocks and along the right lateral abdominal subcutaneous fat. No abscess. CT/CT abdomen pelvis w con* [id number] IMPRESSION: 1. Extensive subcutaneous fat stranding along the lateral aspect of the left hip and buttocks and along the right lateral abdominal subcutaneous fat. No abscess. 2. No bowel obstruction or inflammatory process associated with the bowel. 3. No free air or significant free fluid in the abdomen or pelvis. 4. The appendix is not visualized but there are no secondary signs of acute appendicitis.
--- NOTE | 2024-12-29 18:51 | PC.NURSE ---
Addendum entered by Sharmaine Rouse RN 12/29/24 18:52: CORRECTION: PATIENT PLACED ON 3 L NC. Original Note: PATIENT PLACED ON 2 L NC DUE TO TAKEN HER OWN MUSCLE RELAXERS FROM HOME PRIOR TO ARRIVAL AND SATTING 84%.
[2024-12-29] MEDS: fluconazole premix 200 MG/100 ML PREMIX 100 MG IV (18:52)
[2024-12-29] MEDS: iohexol 350 mg/mL 500 mL Btl (per mL) IV (19:36)
--- NOTE | 2024-12-29 20:20 | PM.HP ---
Providers/Chief Complaint Primary Care Provider: Wilner Hdez DO Chief Complaint: Skin infection History of Present Illness Polina Snyder is a 64 year old female with a past medical history significant for bilateral lower extremity amputations, diabetes mellitus, COPD, neuropathy, chronic pain, hypertension, hyperlipidemia, substance abuse, and multiple other comorbidities who presents to the emergency department with erythema, redness, and pain in her lower skin folds. Patient reports symptoms started 4 days ago but acutely worse in the last 2 days. She states has been using topical agents but the infection is taken off on her. She describes the pain as severe. Endorses associated fevers and chills. Pressing on the area makes the pain worse. Denies other alleviating or aggravating factors. She reports about 10 days ago she completed an Augmentin course. Denies other recent oral antibiotics. In the emergency department, patient was noted to have significant skin infection in her inguinal and other abdominal/leg folds. Labs revealed leukocytosis to 12.25. CRP elevated to 163. CT imaging showed extensive subcutaneous fat stranding along the lateral portion of the left hip and buttocks as well as along the right lateral abdominal subcutaneous fat. There is no drainable abscess identified. Patient started on broad-spectrum antibiotics. Review of Systems Narrative: A complete review of systems was obtained and is negative except as stated in HPI. Medications/Allergies Home Medications ?Medication ?Instructions ?Recorded ?Confirmed ?Last Taken ?Type albuterol sulfate 90 mcg/actuation 2 inh inhalation Q4H PRN shortness 07/17/23 12/09/24 Unknown Rx aerosol inhaler of breath or wheezing #18 grams Methadone (Unknown Source) See Rx Instructions .Route .COMPLEX 12/16/23 12/09/24 Unknown History pantoprazole 40 mg tablet,delayed 40 mg PO DAILY #90 tabs 02/26/24 12/09/24 04/27/24 Rx release furosemide 40 mg tablet 40 mg PO DAILY PRN Edema #90 tabs 03/25/24 12/09/24 04/27/24 Rx sennosides 8.6 mg-docusate sodium 1 tab-cap PO DAILY #10 tabs 05/04/24 12/09/24 Unknown Rx 50 mg tablet (Senna-S) prochlorperazine maleate 10 mg 10 mg PO BID PRN nausea and 08/06/24 12/09/24 Unknown Rx tablet vomiting #60 tabs nystatin 100,000 unit/gram topical See Rx Instructions .Route 08/11/24 12/09/24 Unknown Rx powder .COMPLEX #15 grams losartan 100 mg tablet 100 mg PO DAILY #90 tabs 09/04/24 12/09/24 Unknown Rx mecobalamin (vitamin B12) 1,000 1,000 mcg PO DAILY #90 tabs 09/04/24 12/09/24 Unknown Rx mcg chewable tablet gabapentin 300 mg capsule See Rx Instructions .Route 09/14/24 12/09/24 Unknown Rx .COMPLEX #90 caps metformin 500 mg tablet,extended See Rx Instructions .Route 09/14/24 12/09/24 Unknown Rx release 24 hr .COMPLEX #60 tabs tizanidine 4 mg tablet See Rx Instructions .Route 09/14/24 12/09/24 Unknown Rx .COMPLEX #90 tabs atenolol 50 mg tablet 100 mg PO BID 11/03/24 12/09/24 Unknown History diazepam 5 mg tablet 5 mg PO DAILY PRN anxiety 30 days 11/03/24 12/09/24 Unknown Rx #10 tabs fenofibrate nanocrystallized 145 145 mg PO DAILY #90 tabs 11/03/24 12/09/24 Unknown Rx mg tablet lidocaine-prilocaine 2.5 %-2.5 % See Rx Instructions .Route 11/03/24 12/09/24 Unknown Rx topical cream .COMPLEX #30 grams hydrocortisone 2.5 % topical cream 1 applic [place] DAILY PRN hemorrhoids 11/09/24 12/09/24 Unknown Rx with perineal applicator 30 days #30 grams (Proctozone-HC) amoxicillin 875 mg tablet 875 mg PO BID 10 days #20 tabs 12/09/24 12/09/24 Unknown Rx fluticasone propionate 50 1 spray intranasal DAILY nasal 12/09/24 12/09/24 Unknown Rx mcg/actuation nasal congestion #16 grams spray,suspension (Flonase Allergy Relief) ketoconazole 2 % shampoo 1 applic topical .3x weekly #120 mL 12/12/24 Unknown Rx Allergies Allergy/AdvReac Type Severity Reaction Status Date / Time nalbuphine Allergy Unknown sick to Verified 12/09/24 09:52 stomach adhesive tape Allergy rash Verified 12/09/24 09:52 amitriptyline Allergy Unknown Verified 12/09/24 09:52 morphine Allergy ADR-Vomitin Verified 12/09/24 09:52 g nitrofurantoin (From Allergy ADR-Vomitin Verified 12/09/24 09:52 Macrobid) g Sulfa (Sulfonamide Allergy Itch all Verified 12/09/24 09:52 Antibiotics) over PFSH Acute PFSH: Medical History (Updated 12/29/24 @ 21:23 by Josh Spencer MD) Chronic pain Left below-knee amputee GERD without esophagitis Unable to ambulate Essential hypertension Depression with anxiety Diabetes mellitus, type II Hx of malignant neoplasm of lung hx of lung cancer L upper lobe txed w/ radiation only at [place] Amputation of left lower extremity below knee Right above-knee amputee Leg swelling Wound dehiscence Diabetic peripheral neuropathy associated with type 2 diabetes mellitus Postoperative anemia Pulmonary embolism Chronic anxiety Chronic hypercapnic respiratory failure Noncompliance Uses wheelchair COPD (chronic obstructive pulmonary disease) Degenerative joint disease of left knee Closed fracture of left distal femur Closed femur fracture Cellulitis Diabetic neuropathy associated with type 2 diabetes mellitus Diastolic CHF Substance abuse History of DVT of lower extremity post-operative Hyperlipidemia History of cardioversion history of SVT vs for other arrhythmia Methamphetamine use [id number] disease-like deformity of foot right Torticollis, acquired Has had good results with Botox in the past Lumbar radiculopathy Cervical post-laminectomy syndrome Surgical History (Updated 09/04/24 @ 17:36 by Shelly Rahman MD) History of left lower extremity amputation below the knee Status post above-knee amputation of right lower extremity Hx of neck surgery x 2, posterior laminectomy and cervical fusion with hardware in place, limited ROM neck at baseline Hx of total knee replacement (~2010) Right History of arthroplasty of left knee (~1976) History of partial hysterectomy ovaries remaining; hyst done for bleeding, no cancer Hx of dilation and curettage Hx of tubal ligation Hx of appendectomy Family History Family/Other Hypertension Depression Anxiety Diabetes Father Aneurysm Mother Hypertension Brother Diabetes Sister Diabetes Social History (Updated 09/04/24 @ 14:59 by Shelly Rahman MD) Smoking and tobacco/nicotine status: current every day tobacco/nicotine user cigarettes Alcohol intake: never Substance/Drug Use: current Substance/Drug use frequency: few times a month Other substance/drug use details: has used meth and marijuana; last meth use early Aug 11 Additional social history: unknown if patient continues to smoke, documented to smoke previously Household members: none Marital status: Life Partner Marital status details: but life partner X 23yrs--he is now in [facility]--has charges Number of children: 2 Highest education level completed: Associate Degree: Occupational, Technical, Vocational Program Education level details: nursing school, cosmetology school Current occupational status: disabled Female Reproductive History: Spontaneous abortions: No Vitals/I&O/Wt Last Vital Signs Temp 98.0 F 12/29/24 17:40 Pulse 72 12/29/24 18:51 Resp 16 12/29/24 18:51 BP 161/50 12/29/24 18:51 Pulse Ox 94 12/29/24 18:51 O2 Del Method Nasal Cannula 12/29/24 18:51 O2 Flow Rate 3 12/29/24 18:51 Weight last 48 hrs Weight 81.647 kg Physical Exam Narrative: General: Patient is awake and alert. Head: Normocephalic. Atraumatic. EOM intact. Neck: No JVD. Cardiovascular: RRR. No gallops. No murmurs. Lungs: Clear to auscultation, no use of accessory muscles, no crackles or wheezes. Skin: No jaundice. There is marked erythema, warmth, and tenderness to palpation throughout her inguinal skin lines, and pannus. Abdomen: Normal bowel sounds, abdomen soft. Extremities: No cyanosis or clubbing. Right AKA. Left AKA. Musculoskeletal:No swollen or erythematous joints. Neurological: Moves all 4 extremities. No myoclonus. Data 12/29/24 18:04 12/29/24 18:04 A&P Assessment and plan (1) Cellulitis: Cellulitis of lower skin folds and pannus Received cefepime, linezolid and fluconazole in ER We will continue this current regiment for now Blood cultures obtained Check procalcitonin Continue cefepime and linezolid Continue fluconazole Wound care Supportive care (2) Diabetes mellitus, type II: Hold metformin Sliding-scale insulin correction Qualifiers: Diabetes mellitus retirement insulin use: without computer terminal operator use Diabetes mellitus complication status: with circulatory complication Diabetes mellitus complication detail: with peripheral angiopathy without gangrene Qualified Code(s): E11.51 - Type 2 diabetes mellitus with diabetic peripheral angiopathy without gangrene (3) Essential hypertension: Continue home antihypertensives (4) GERD without esophagitis: Continue PPI (5) Chronic pain: Continue home pain regiment Plan DVT prophylaxis: Lovenox PDMP PDMP Reviewed: Not Reviewed Attestations Medical Necessity Statement*: Patient presents with significant cellulitis requiring IV antibiotics and IV antifungals with expected health after cross 2 midnights for continued antibiotic treatment and further workup. Coding Level of Care Code Acute Code for [facility] Diagnoses Cellulitis L03.90 Type 2 diabetes mellitus with diabetic peripheral angiopathy without gangrene, without long-term current use of insulin E11.51 Diabetes mellitus retirement insulin use: without computer terminal operator use Diabetes mellitus complication status: with circulatory complication Diabetes mellitus complication detail: with peripheral angiopathy without gangrene Essential hypertension I10 GERD without esophagitis K21.9 Other chronic pain G89.29
[2024-12-29] MEDS: cefepime 2,000 mg SDV 2000 MG IVP (20:41)
[2024-12-29] MEDS: linezolid premix 600 MG/300 ML PREMIX 300 MG IV (20:46)
[2024-12-29] MEDS: gabapentin 300 mg Capsule PO (21:53)
[2024-12-29 21:59] LABS: Procalcitonin 0.08 ng/mL (0-0.5)
[2024-12-29] MEDS: enoxaparin 40 mg/0.4 mL Syringe SUBCUT (22:15)
[2024-12-30] VITALS (9 sets, daily range): BP systolic 103–142; BP diastolic 51–77; PULSE 62–81; RESP 15–66; TEMP 36.7–37.4; O2SAT 92–98
[2024-12-30 03:34] LABS: Basophils % 0.3 %; Eosinophils # 0.2 10^3/uL (0.0-0.8); Eosinophils % 1.8 %; Hematocrit 39.1 % (36-47); Lymphocytes % 8.1 %; Mean Corpuscular HGB Conc 30.7 g/dL (30-55); Mean Corpuscular Hemoglobin 31.7 pg (27-33); Mean Corpuscular Volume 103.4 fl (85-98); Mean Platelet Volume 9.8 fL (7.4-10.4); Monocytes # 1.2 10^3/uL (0.2-0.9); Monocytes % 10.2 %; Neutrophils # 9.47 10^3/uL (1.8-7.7); Neutrophils % 79.3 %; Nucleated Red Blood Cells % 0 %; Platelet Count 255 10^3/cmm (157-399); Red Blood Count 3.78 10^6/uL (3.85-5.65); Red Cell Distribution Width 13.5 % (12.1-15.1); White Blood Count 11.92 10^3/uL (3.29-11.43)
[2024-12-30 03:50] LABS: Blood Urea Nitrogen 19 mg/dL (8-23); Carbon Dioxide 28 mmol/L (22-29); Chloride 103 mmol/L (98-107); Creatinine Clr Calc Pharmacy 122.4507; Glomerular Filtration Rate 124.2 mL/min (90-130); Glucose 162 mg/dL (65-115); Magnesium 1.8 mg/dL (1.7-2.3); Osmolality Calculated 298 mOsm/kg (285-295); Phosphorus 3.8 mg/dL (2.5-4.5); Sodium 141 mmol/L (136-145)
[2024-12-30 03:57] LABS: Anion Gap 14.1 (5-19); Potassium 4.1 mmol/L (3.5-5.1)
[2024-12-30] MEDS: cefepime 2,000 mg SDV 2000 MG IVP ×3 (04:24→21:06)
[2024-12-30 09:06] LABS: Glucose Point of Care 203 mg/dL (70-110)
[2024-12-30] MEDS: fluticasone nasal spray 16gm Btl 1 SPRAY INTRANASAL (09:16)
[2024-12-30] MEDS: losartan 50 mg Tablet 100 MG PO (09:16)
[2024-12-30] MEDS: atenolol 50 mg Tablet 100 MG PO ×2 (09:17→17:21)
[2024-12-30] MEDS: sennosides-docusate Tablet 1 TAB PO (09:17)
[2024-12-30] MEDS: gabapentin 300 mg Capsule PO ×3 (09:17→21:06)
[2024-12-30] MEDS: fenofibrate 145 mg Tablet PO (09:17)
[2024-12-30] MEDS: pantoprazole DR 40 mg Tablet PO (09:17)
[2024-12-30] MEDS: insulin lispro 100 unit/1 mL SUBCUT ×2 (09:19→13:10)
[2024-12-30] MEDS: linezolid premix 600 MG/300 ML PREMIX 300 MG IV ×2 (09:58→21:06)
--- NOTE | 2024-12-30 10:16 | PC.NURSE ---
pt states she takes 20 mg methadone at home, pharmacy order was put in for 80 mg.
[2024-12-30 12:43] LABS: Glucose Point of Care 186 mg/dL (70-110)
--- NOTE | 2024-12-30 15:58 | P.PN_ITS ---
Subjective 2 Subjective: 64-year-old female with a past medical h istory of diabetes, coronary artery disease, COPD, neuropathy, hypertension, and hyperlipidemia presents with an infection under her abdomen for the past 4 days. She noted it started as a small area on Saturday and progressively worsened, becoming more moist, leaky, and hot. She has been using topical mupirocin and clotrimazole at home with some improvement in symptoms. She denies any fever or chills. 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 She follows with the wound care clinic for her right AKA stump, which has had poor healing but no signs of active infection. She does have lymphedema and requires daily dressing changes by her caregiver. Initial evaluation in the ER revealed: - Laboratory Findings: WBC 12. - Imaging Studies: CT abdomen/pelvis atul wing extensive subcutaneous fat stranding along the lateral portion of the left hip and buttock area along with right lateral abdominal subcutaneous fat, no drainable abscess. The patient was started on IV cefepime 2 grams every 8 hours and IV Zyvox 600 mg twice daily. She remains hemodynamically stable but symptomatic.Was wanting to go home however. Vitals/I&O/Wt Last Vital Signs Temp 98.0 F 12/29/24 17:40 Pulse 81 12/30/24 15:32 Resp 66 H 12/30/24 13:33 BP 110/52 12/30/24 15:32 Pulse Ox 98 12/30/24 15:32 O2 Del Method Nasal Cannula 12/30/24 13:33 O2 Flow Rate 2 12/30/24 13:33 12/30/24 12/30/24 12/30/24 06:59 14:59 22:59 Intake Total 300 / 400 Output Total 500 / 500 Balance -200 / -100 Weight last 48 hrs Weight 85.049 kg Weight 81.647 kg Physical Exam 2 Narrative: General: Patient is awake and alert. Head: Normocephalic. Atraumatic. EOM intact. Neck: No JVD. Cardiovascular: RRR. No gallops. No murmurs. Lungs: Clear to auscultation, no use of accessory muscles, no crackles or wheezes. Skin: No jaundice. There is marked erythema, warmth, and tenderness to palpation throughout her inguinal skin lines, and pannus.- unchanged Abdomen: Normal bowel sounds, abdomen soft. Extremities: No cyanosis or clubbing. Right AKA. Left AKA. Musculoskeletal:No swollen or erythematous joints. Neurological: Moves all 4 extremities. No myoclonus. Urinary Catheter Management: Garber: Cath Placed During This Visit: yes Reason for Continuing Indwelling Catheter: Assist Healing of Perineal & Sacral Wounds- Incontinent Patients Urinary Catheter Date of Insertion: 12/29/24 Data 12/30/24 03:21 12/30/24 03:21 A&P Assessment and plan (1) Cellulitis: (2) Diabetes mellitus, type II: Qualifiers: Diabetes mellitus adjunct faculty for medical terminology insulin use: without alf use Diabetes mellitus complication status: with circulatory complication Diabetes mellitus complication detail: with peripheral angiopathy without gangrene Qualified Code(s): E11.51 - Type 2 diabetes mellitus with diabetic peripheral angiopathy without gangrene (3) Essential hypertension: (4) GERD without esophagitis: (5) Chronic pain: Plan Abdominal Cellulitis with Possible underlying Fungal component - 64-year-old female with diabetes presenting with 4 days of worsening redness, tenderness, and drainage under her pannus, extending into the suprapubic region and groin. CT findings consistent with subcutaneous fat stranding without drainable collection. Differential Diagnosis: 1. Cellulitis due to skin leonela like Staphylococcus or Streptococcus. 2. Fungal superinfection, possibly Silvia, given moist environment. Plan: 1. Continue IV cefepime and Zyvox to cover for cellulitis. 2. Keep area clean and dry. Involve wound care for dressing changes and assessment. 3. Trend WBC and inflammatory markers. 4. Adjust antibiotics based on culture results. 5. Transition to PO antibiotics when improved for total 7-10 day course. Right Above-Knee Amputation - History of right AKA due to diabetic foot infection in April/May 2024. Follows with wound care clinic. Noted to have poor healing but no signs of active infection on exam. Plan: 1. Continue daily dressing changes. 2. Follow up with wound care clinic on discharge. Left Below-Knee Amputation - History of left BKA due to diabetic foot infection. No acute concerns. Plan: 1. Ensure proper positioning and offloading. 2. Stable appearing Diabetes Mellitus - Long-standing diabetes with complications including neuropathy and amputations. Plan: 1. Sliding scale insulin . 2. Diabetic diet COPD - History of COPD with occasional exacerbations requiring oxygen. - Currently on 2L NC but states she is not on home oxygen. Denied dyspnea Plan: 1. Continue oxygen to keep saturation >92%. 2. Wean off oxygen Chronic Pain - On methadone 20 mg daily Also takes diazepam PRN as well . - Reports current leg pain is not well-controlled. Plan: 1. Ensure accurate medication reconciliation, especially given potential methadone dosing error in ER. 2. Avoid oversedation and monitor respiratory status closely. Hypertension - Continue home antihypertensives. - Monitor blood pressure and titrate medications as needed. Hyperlipidemia - Resume statins PDMP PDMP Reviewed: Not Reviewed Attestations 2 Medical Necessity Statement*: Patient presents with significant cellulitis requiring IV antibiotics and IV antifungals with expected health after cross 2 midnights for continued antibiotic treatment and further workup. Coding Level of Care Code Acute Code for [facility] Diagnoses Cellulitis L03.90 Type 2 diabetes mellitus with diabetic peripheral angiopathy without gangrene, without long-term current use of insulin E11.51 Diabetes mellitus adjunct faculty for medical terminology insulin use: without alf use Diabetes mellitus complication status: with circulatory complication Diabetes mellitus complication detail: with peripheral angiopathy without gangrene Essential hypertension I10 GERD without esophagitis K21.9 Other chronic pain G89.29
[2024-12-30 17:05] LABS: Glucose Point of Care 102 mg/dL (70-110)
[2024-12-30] MEDS: fluconazole premix 200 MG/100 ML PREMIX 100 MG IV (17:38)
[2024-12-30 20:47] LABS: Glucose Point of Care 106 mg/dL (70-110)
[2024-12-30] MEDS: enoxaparin 40 mg/0.4 mL Syringe SUBCUT (21:06)
[2024-12-30] MEDS: acetaminophen 325 mg Tablet 650 MG PO (22:31)
[2024-12-30] MEDS: diazePAM 5 mg Tablet PO (23:12)
[2024-12-30] MEDS: ondansetron 2 mg/ML SDV 2 mL 4 MG IVP (23:16)
[2024-12-31] VITALS (8 sets, daily range): BP systolic 108–135; BP diastolic 58–83; PULSE 61–68; RESP 12–18; TEMP 36.3–36.8; O2SAT 91–96
[2024-12-31] MEDS: cefepime 2,000 mg SDV 2000 MG IVP ×3 (04:30→20:27)
[2024-12-31 06:31] LABS: Glucose Point of Care 94 mg/dL (70-110)
[2024-12-31] MEDS: atenolol 50 mg Tablet 100 MG PO ×2 (09:26→17:44)
[2024-12-31] MEDS: pantoprazole DR 40 mg Tablet PO (09:26)
[2024-12-31] MEDS: sennosides-docusate Tablet 1 TAB PO (09:26)
[2024-12-31] MEDS: losartan 50 mg Tablet 100 MG PO (09:26)
[2024-12-31] MEDS: gabapentin 300 mg Capsule PO (09:26)
[2024-12-31] MEDS: fenofibrate 145 mg Tablet PO (09:26)
[2024-12-31] MEDS: methadone 10 mg Tablet 20 MG PO (09:26)
[2024-12-31] MEDS: fluticasone nasal spray 16gm Btl 1 SPRAY INTRANASAL (09:27)
[2024-12-31] MEDS: linezolid premix 600 MG/300 ML PREMIX 300 MG IV ×2 (09:27→20:27)
--- NOTE | 2024-12-31 10:21 | PC.CHAP ---
Pastoral Care Encounter/Spiritual Assessment Type of Contact [] Declined winemaker visit [] Patient/Family/Request visit [] Outpatient visit [] Follow-up visit [] Physician referral [] Code/Alert [x] Routine visit [] Staff referral [] Actively dying [] Patient sleeping [x] Family support [] [] Out of room [] Palliative care [] [] Receiving care in room [] Pre-surgical visit [] Trauma [] Long length of stay [] ICU visit [x] Other:Prayed with family member Relational/Emotional Strength [x] Patient feels connected with others/family/visitors/staff [] Distress [] Loneliness/isolation [] Abandonment Spirituality of Patient [] Person of Amee [] Attends Mormon of their Amee [] Believes in Prayer [] Reads Bible or Taoism materials [] There are Spiritual issues to be addressed File Clerk Data Entry Interventions [x] Prayer [] Active listening [x] Non-anxious presence [] Spiritual/emotional support [] Crisis/trauma care [] Spiritual counseling [] Bereavement support [] Provided bereavement packet [] Provided Bible/devotional materials [] Provided toy/stuffed animal, coloring book to patient or family member [] Provided Communion [] Anointing/[place] [] Salvation [x] Completed spiritual assessment [] Other: Impact on Illness or Injury [] Angry [] Fearful [] Anxious [] Often cries [] Exhaustion [] Unable to work [] Unable to attend catholic [] Unable to walk/stand [] Unable to read [] Unable to drive [] Unable to eat/drink [] Unable to sleep [] Unable to be with family [] Patient intubated [] Other: Summary Time spent with patient 5 min
--- NOTE | 2024-12-31 10:21 | PC.NURSE ---
report received from Kelli, assumed care of patient at this time.
[2024-12-31 11:25] LABS: Basophils % 0.4 %; Eosinophils # 0.2 10^3/uL (0.0-0.8); Eosinophils % 1.7 %; Lymphocytes # 0.7 10^3/uL (0.8-4.8); Mean Corpuscular HGB Conc 30.5 g/dL (30-55); Mean Corpuscular Hemoglobin 31.9 pg (27-33); Mean Corpuscular Volume 104.6 fl (85-98); Mean Platelet Volume 9.7 fL (7.4-10.4); Monocytes % 9.2 %; Neutrophils # 9.26 10^3/uL (1.8-7.7); Neutrophils % 82.3 %; Nucleated Red Blood Cells % 0 %; Platelet Count 244 10^3/cmm (157-399); Red Blood Count 3.73 10^6/uL (3.85-5.65); Red Cell Distribution Width 13.6 % (12.1-15.1); White Blood Count 11.24 10^3/uL (3.29-11.43)
--- NOTE | 2024-12-31 11:36 | P.PN_ITS ---
Subjective 2 Subjective: 64-year-old female with a past medical h istory of diabetes, coronary artery disease, COPD, neuropathy, hypertension, and hyperlipidemia presents with an infection under her abdomen for the past 4 days. She noted it started as a small area on Saturday and progressively worsened, becoming more moist, leaky, and hot. She has been using topical mupirocin and clotrimazole at home with some improvement in symptoms. She denies any fever or chills. 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 She follows with the wound care clinic for her right AKA stump, which has had poor healing but no signs of active infection. She does have lymphedema and requires daily dressing changes by her caregiver. Initial evaluation in the ER revealed: - Laboratory Findings: WBC 12. - Imaging Studies: CT abdomen/pelvis atul wing extensive subcutaneous fat stranding along the lateral portion of the left hip and buttock area along with right lateral abdominal subcutaneous fat, no drainable abscess. The patient was started on IV cefepime 2 grams every 8 hours and IV Zyvox 600 mg twice daily. Unfortunately no blood cultures were drawn on admission. Noted to have improvement in erythema and tenderness in lower abdomen. She remained on 3LPM of oxygen, when i had asked her if she was on home O2 she had denied however today stated she does have oxygen tanks at home which she uses as needed. Denied any respiratory distress. It was noted in prior notes patient was supposed to be on chronic supplemental oxygen. Overnight no new clinical events. Remained afebrile. She was very drowsy at the time of eval and tearful at times. Vitals/I&O/Wt Last Vital Signs Temp 97.9 F 12/31/24 07:58 Pulse 66 12/31/24 08:06 Resp 18 12/31/24 08:06 BP 108/60 12/31/24 07:58 Pulse Ox 91 12/31/24 08:06 O2 Del Method Nasal Cannula 12/31/24 08:06 O2 Flow Rate 3 12/31/24 08:06 12/30/24 12/31/24 12/31/24 22:59 06:59 14:59 Intake Total 700 / 700 120 / 820 300 / 300 Output Total 900 / 900 200 / 1100 Balance -200 / -200 -80 / -280 300 / 300 Weight last 48 hrs Weight 83.824 kg Weight 85.049 kg Weight 81.647 kg Physical Exam 2 Narrative: General: Patient is awake and alert. Head: Normocephalic. Atraumatic. EOM intact. Neck: No JVD. Cardiovascular: RRR. No gallops. No murmurs. Lungs: Clear to auscultation, no use of accessory muscles, no crackles or wheezes. Skin: No jaundice. There is marked erythema, warmth, and tenderness to palpation throughout her inguinal skin lines, and pannus.- unchanged Abdomen: Normal bowel sounds, abdomen soft. Extremities: No cyanosis or clubbing. Right AKA. Left AKA. Musculoskeletal:No swollen or erythematous joints. Neurological: Moves all 4 extremities. No myoclonus. Urinary Catheter Management: Garber: Cath Placed During This Visit: yes Reason for Continuing Indwelling Catheter: Other Urinary Catheter Date of Insertion: 12/29/24 Data 12/31/24 10:52 12/30/24 03:21 A&P Assessment and plan (1) Cellulitis: (2) Diabetes mellitus, type II: Qualifiers: Diabetes mellitus penitentiary insulin use: without termite treater helper use Diabetes mellitus complication status: with circulatory complication Diabetes mellitus complication detail: with peripheral angiopathy without gangrene Qualified Code(s): E11.51 - Type 2 diabetes mellitus with diabetic peripheral angiopathy without gangrene (3) Essential hypertension: (4) GERD without esophagitis: (5) Chronic pain: Plan Abdominal Cellulitis with Possible underlying Fungal component - 64-year-old female with diabetes presenting with 4 days of worsening redness, tenderness, and drainage under her pannus, extending into the suprapubic region and groin. CT findings consistent with subcutaneous fat stranding without drainable collection. She was noted to have mild leukocytosis which resolved. Unfortunately no blood culture were drawn on admission. - Gradually improving. Plan: 1. Continue IV cefepime and Zyvox to cover for cellulitis. No culture to tailor antibiotic therapy. Leukocytosis resolved. Remains afebrile. Will continue Broad spectrum antibiotics for additional date. If continues to improve and she remains afebrile will plan to transition to broad spectrum antibiotic to complete a total 7 day course 2. Added nystatin powder as well to area. Also will continue diflucan for additional date given extent. COPD - History of COPD with occasional exacerbations requiring oxygen. - Currently on 3L NC but states she is not on home oxygen. Denied dyspnea Plan: 1. She has not had any distress, remains on 3lpm oxygen. Will attempt to wean as tolerated. If increasing requirements or dyspnea, will obtain chest xray. Also encourage incentive spirometer. * No change to management of her Chronic issues noted below* Right Above-Knee Amputation - History of right AKA due to diabetic foot infection in April/May 2024. Follows with wound care clinic. Noted to have poor healing but no signs of active infection on exam. Plan: 1. Continue daily dressing changes. 2. Follow up with wound care clinic on discharge. Left Below-Knee Amputation - History of left BKA due to diabetic foot infection. No acute concerns. Plan: 1. Ensure proper positioning and offloading. 2. Stable appearing Diabetes Mellitus - Long-standing diabetes with complications including neuropathy and amputations. Plan: 1. Sliding scale insulin . 2. Diabetic diet Chronic Pain - On methadone 20 mg daily Also takes diazepam PRN as well . - Reports current leg pain is not well-controlled. Plan: 1. Ensure accurate medication reconciliation, especially given potential methadone dosing error in ER. 2. Avoid oversedation and monitor respiratory status closely. Hypertension - Continue home antihypertensives. - Monitor blood pressure and titrate medications as needed. Hyperlipidemia - Resume statins PDMP PDMP Reviewed: Not Reviewed Attestations 2 Medical Necessity Statement*: Patient presents with significant cellulitis requiring IV antibiotics and IV antifungals with expected health after cross 2 midnights for continued antibiotic treatment and further workup. Coding Level of Care Code Acute Code for [facility] Diagnoses Cellulitis L03.90 Type 2 diabetes mellitus with diabetic peripheral angiopathy without gangrene, without long-term current use of insulin E11.51 Diabetes mellitus penitentiary insulin use: without termite treater helper use Diabetes mellitus complication status: with circulatory complication Diabetes mellitus complication detail: with peripheral angiopathy without gangrene Essential hypertension I10 GERD without esophagitis K21.9 Other chronic pain G89.29
[2024-12-31 11:45] LABS: Glucose Point of Care 196 mg/dL (70-110)
[2024-12-31 11:50] LABS: Blood Urea Nitrogen 16 mg/dL (8-23); Carbon Dioxide 29 mmol/L (22-29); Chloride 100 mmol/L (98-107); Creatinine Clr Calc Pharmacy 155.0167; Glomerular Filtration Rate 160.7 mL/min (90-130); Glucose 182 mg/dL (65-115); Osmolality Calculated 294 mOsm/kg (285-295); Sodium 139 mmol/L (136-145)
[2024-12-31] MEDS: insulin lispro 100 unit/1 mL SUBCUT (11:57)
[2024-12-31 16:28] LABS: Glucose Point of Care 111 mg/dL (70-110)
[2024-12-31] MEDS: fluconazole premix 200 MG/100 ML PREMIX 100 MG IV (17:43)
[2024-12-31] MEDS: nystatin powder 15 gm Btl 1 APPLIC TOPICAL (17:44)
--- NOTE | 2024-12-31 17:52 | PC.NURSE ---
patient has been very sleepy this shift and maintaining the same semi fowlers position. When attempting to turn patient throughout the shift, she refused and said her bottom hurts I informed her we can turn her to one side or the other for a while to help with the pain and she states no, I don't want to. Patient is alert and oriented, resting in bed at this time with supper tray in front of her and call light within reach.
[2024-12-31] MEDS: enoxaparin 40 mg/0.4 mL Syringe SUBCUT (20:37)
[2024-12-31 20:43] LABS: Glucose Point of Care 98 mg/dL (70-110)
--- NOTE | 2024-12-31 22:03 | PC.NURSE ---
patient resting in bed with eyes closed. patient unarrousable, will open eyes for a second then close them again. unable to administer 2100 gabapentin at this time. patient is unable to state her name or birthdate. nurse will try again at a later time.
[2025-01-01] VITALS (8 sets, daily range): BP systolic 122–159; BP diastolic 64–76; PULSE 62–69; RESP 12–17; TEMP 36.4–36.7; O2SAT 80–94
[2025-01-01 05:11] LABS: Basophils % 0.4 %; Eosinophils # 0.2 10^3/uL (0.0-0.8); Eosinophils % 1.6 %; Hematocrit 38.9 % (36-47); Lymphocytes % 8.7 %; Mean Corpuscular HGB Conc 30.1 g/dL (30-55); Mean Corpuscular Hemoglobin 31.6 pg (27-33); Mean Corpuscular Volume 105.1 fl (85-98); Mean Platelet Volume 10.1 fL (7.4-10.4); Monocytes # 1.3 10^3/uL (0.2-0.9); Monocytes % 11.6 %; Neutrophils % 77.3 %; Nucleated Red Blood Cells % 0 %; Platelet Count 279 10^3/cmm (157-399); Red Cell Distribution Width 13.5 % (12.1-15.1); White Blood Count 11.12 10^3/uL (3.29-11.43)
[2025-01-01 05:47] LABS: Blood Urea Nitrogen 16 mg/dL (8-23); Calcium 9.5 mg/dL (8.5-10.5); Carbon Dioxide 31 mmol/L (22-29); Chloride 102 mmol/L (98-107); Creatinine Clr Calc Pharmacy 154.7314; Glomerular Filtration Rate 160.7 mL/min (90-130); Glucose 97 mg/dL (65-115); Osmolality Calculated 299 mOsm/kg (285-295); Sodium 144 mmol/L (136-145)
[2025-01-01] MEDS: cefepime 2,000 mg SDV 2000 MG IVP (05:57)
[2025-01-01 06:26] LABS: Glucose Point of Care 94 mg/dL (70-110)
[2025-01-01] MEDS: losartan 50 mg Tablet 100 MG PO (09:23)
[2025-01-01] MEDS: gabapentin 300 mg Capsule PO (09:23)
[2025-01-01] MEDS: fenofibrate 145 mg Tablet PO (09:23)
[2025-01-01] MEDS: methadone 10 mg Tablet 20 MG PO (09:23)
[2025-01-01] MEDS: pantoprazole DR 40 mg Tablet PO (09:24)
[2025-01-01] MEDS: sennosides-docusate Tablet 1 TAB PO (09:24)
[2025-01-01] MEDS: atenolol 50 mg Tablet 100 MG PO (09:31)
--- NOTE | 2025-01-01 10:18 | PC.SOCIAL ---
IMM Updated Updated pt on IMM. No questions voiced. Provided pt a copy. Initialed, dated, & timed a copy & placed in chart.
[2025-01-01 10:42] LABS: Glucose Point of Care 115 mg/dL (70-110)
--- NOTE | 2025-01-01 12:49 | PC.NURSE ---
Pt pulled out catheter at shift change this morning. Doctor was notified and said not to insert another IV because patient will be discharging today.
--- NOTE | 2025-01-01 16:05 | PC.NURSE ---
Spoke to Pinky at this time who states that no one has a car to come and get the patient. Dr. Yang notified.
[2025-01-01 16:29] LABS: Glucose Point of Care 102 mg/dL (70-110)
--- NOTE | 2025-01-01 18:15 | PC.NURSE ---
2 people came to bulk picker patient in which patient was alert and compliant. She stated that she was ready to go home. Pt was assisted in getting dressed and transferred over to the wheelchair with 3 assisting. Her wounds were dressed, dry, and intact at that time. Her baseline oxygen requirement is 3L in which we transported her downstairs on portable oxygen. When we got to the patient's friends vehicle, we found that it was a lifted truck. The man that came to transport the patient decided to pick the patient up by himself and place her in the passenger seat. The patient was not bleeding when she left the facility.
--- NOTE | 2025-01-08 13:49 | P.DS_ITS ---
Discharge Providers Date of Admission: 12/30/24 16:01 Date of Discharge: January 01, 2025 Attending Provider at Admission: Josh Spencer MD Attending Provider at Discharge: Kiersten Yang Consults: None Primary Care Provider: Wilner Hdez DO Diagnoses at Discharge Discharge Diagnosis (1) Cellulitis: Status: Resolved (2) Diabetes mellitus, type II: Status: Chronic Qualifiers: Diabetes mellitus half-way insulin use: without half-way use Diabetes mellitus complication status: with circulatory complication Diabetes mellitus complication detail: with peripheral angiopathy without gangrene Qualified Code(s): E11.51 - Type 2 diabetes mellitus with diabetic peripheral angiopathy without gangrene (3) Essential hypertension: Status: Chronic (4) GERD without esophagitis: Status: Chronic (5) Chronic pain: Status: Inactive Reason for Visit Reason for Visit: Skin infection Hospital Course Hospital Course 64-year-old female with a past medical history of diabetes, coronary artery disease, COPD, neuropathy, hypertension, and hyperlipidemia presents with an infection under her abdomen for the past 4 days. She noted it started as a small area on Saturday and progressively worsened, becoming more moist, leaky, and hot. She has been using topical mupirocin and clotrimazole at home with some improvement in symptoms. 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 She follows with the wound care clinic for her right AKA stump, which has had poor healing but no signs of active infection. She does have lymphedema and requires daily dressing changes by her caregiver. Laboratory work up in ER: - Laboratory Findings: WBC 12. - Imaging Studies: CT abdomen/pelvis showing extensive subcutaneous fat stranding along the lateral portion of the left hip and buttock area along with right lateral abdominal subcutaneous fat, no drainable abscess. The patient was started on IV cefepime 2 grams every 8 hours and IV Zyvox 600 mg twice daily. Unfortunately no blood cultures were drawn on admission. Noted to have improvement in erythema and tenderness in lower abdomen. She remained on 3LPM of oxygen, when i had asked her if she was on home O2 she had denied however today stated she does have oxygen tanks at home which she uses as needed. Denied any respiratory distress. It was noted in prior notes patient was supposed to be on chronic supplemental oxygen. Continue IV diflucan, cefepime and Zyvox to cover for cellulitis. No culture to tailor antibiotic therapy. Leukocytosis resolved. Remains afebrile. Will continue Broad spectrum antibiotics for additional date. If continues to improve and she remains afebrile will plan to transition to broad spectrum antibiotic to complete a total 7 day course.Added nystatin powder as well to area. During hospitalization patient noted to have improvement in erythema, tenderness to lower abdominal wall. No culture to assist with management. Patient was requiring supplemental oxygen during hospitalization. She stated that she had oxygen at home but was not using. Home O2 eval was performed at the time of discharge during which time she was requiring 2 L at rest. This was arranged for patient at the time of discharge. Transitioned to oral antibiotics at the time of discharge. Physical Exam Narrative: General: Patient is awake and alert. Head: Normocephalic. Atraumatic. EOM intact. Neck: No JVD. Cardiovascular: RRR. No gallops. No murmurs. Lungs: Clear to auscultation, no use of accessory muscles, no crackles or wheezes. On supplemental oxygen. Skin: No jaundice. There is marked erythema, warmth, and tenderness to palpation throughout her inguinal skin lines, and pannus Significantly improved at the time of discharge. Abdomen: Normal bowel sounds, abdomen soft. Extremities: No cyanosis or clubbing. Right AKA. Left AKA. Musculoskeletal:No swollen or erythematous joints. Neurological: Moves all 4 extremities. No myoclonus. Urinary Catheter Management: Garber: Cath Placed During This Visit: yes Reason for Continuing Indwelling Catheter: Accurate Measurement of Urinary Output in Critically Ill Patients Urinary Catheter Date of Insertion: 12/29/24 Discharge Data Studies Completed and Pending Completed Studies During Hospitalization Category Date Time Status CT abdomen pelvis w con* [id number] Stat Cat Scan 12/29/24 18:37 Completed Radiology Impressions Abdomen/Pelvis CT 12/29/24 18:37 IMPRESSION: 1. Extensive subcutaneous fat stranding along the lateral aspect of the left hip and buttocks and along the right lateral abdominal subcutaneous fat. No abscess. 2. No bowel obstruction or inflammatory process associated with the bowel. 3. No free air or significant free fluid in the abdomen or pelvis. 4. The appendix is not visualized but there are no secondary signs of acute appendicitis. Laboratory Results WBC 11.12 10^3/uL (3.29-11.43) 01/01/25 04:20 RBC 3.70 10^6/uL (3.85-5.65) L 01/01/25 04:20 Hgb 11.70 g/dL (11.27-16.99) 01/01/25 04:20 Hct 38.9 % (36-47) 01/01/25 04:20 MCV 105.1 fl (85-98) H 01/01/25 04:20 MCH 31.6 pg (27-33) 01/01/25 04:20 MCHC 30.1 g/dL (30-55) 01/01/25 04:20 RDW 13.5 % (12.1-15.1) 01/01/25 04:20 Plt Count 279 10^3/cmm (157-399) 01/01/25 04:20 MPV 10.1 fL (7.4-10.4) 01/01/25 04:20 Neut % (Auto) 77.3 % 01/01/25 04:20 Lymph % (Auto) 8.7 % 01/01/25 04:20 [place] % (Auto) 11.6 % 01/01/25 04:20 Eos % (Auto) 1.6 % 01/01/25 04:20 Baso % (Auto) 0.4 % 01/01/25 04:20 Neut # (Auto) 8.60 10^3/uL (1.8-7.7) H 01/01/25 04:20 Lymph # (Auto) 1.0 10^3/uL (0.8-4.8) 01/01/25 04:20 [place] # (Auto) 1.3 10^3/uL (0.2-0.9) H 01/01/25 04:20 Eos # (Auto) 0.2 10^3/uL (0.0-0.8) 01/01/25 04:20 Baso # (Auto) 0.0 10^3/uL (0.0-0.1) 01/01/25 04:20 Nucleated RBC % (auto) 0 % 01/01/25 04:20 Nucleated RBCs # 0.0 /100WBC 01/01/25 04:20 Sodium 144 mmol/L (136-145) 01/01/25 04:20 Potassium 4.0 mmol/L (3.5-5.1) 01/01/25 04:20 Chloride 102 mmol/L (98-107) 01/01/25 04:20 Carbon Dioxide 31 mmol/L (22-29) H 01/01/25 04:20 Anion Gap 15.0 (5-19) 01/01/25 04:20 BUN 16 mg/dL (8-23) 01/01/25 04:20 Creatinine 0.4 mg/dL (0.5-0.9) L 01/01/25 04:20 GFR Calculation 160.7 mL/min (90-130) H 01/01/25 04:20 Glucose 97 mg/dL (65-115) 01/01/25 04:20 POC Glucose 102 mg/dL (70-110) 01/01/25 16:22 Calculated Osmolality 299 mOsm/kg (285-295) H 01/01/25 04:20 Calcium 9.5 mg/dL (8.5-10.5) 01/01/25 04:20 Phosphorus 3.8 mg/dL (2.5-4.5) 12/30/24 03:21 Magnesium 1.8 mg/dL (1.7-2.3) 12/30/24 03:21 Total Bilirubin 0.5 mg/dL (0.15-1.2) 12/29/24 18:04 AST 16 U/L (0-32) 12/29/24 18:04 ALT 17 U/L (0-33) 12/29/24 18:04 Alkaline Phosphatase 110 U/L (35-105) H 12/29/24 18:04 C-Reactive Protein 163.1 mg/L (0.0-4.9) H 12/29/24 18:04 Total Protein 6.9 g/dL (6.6-8.7) 12/29/24 18:04 Albumin 3.2 g/dL (3.5-5.2) L 12/29/24 18:04 Globulin 3.7 g/dL (1.3-4.6) 12/29/24 18:04 Procalcitonin 0.08 ng/mL (0-0.5) 12/29/24 18:04 Vitals Last Vital Signs Temp 97.9 F 01/01/25 17:36 Pulse 64 01/01/25 17:36 Resp 16 01/01/25 17:36 BP 142/65 01/01/25 17:36 Pulse Ox 90 01/01/25 17:36 O2 Del Method Nasal Cannula 01/01/25 15:48 O2 Flow Rate 3 01/01/25 08:00 Discharge Plan Discharge Patient Disposition: Home Condition: Stable Prescriptions: Continued furosemide 40 mg tablet 40 mg PO DAILY PRN (Reason: Edema) Qty: 90 3RF diazepam 5 mg tablet 5 mg PO DAILY PRN (Reason: anxiety) 30 Days Qty: 10 5RF fenofibrate nanocrystallized 145 mg tablet 145 mg PO DAILY Qty: 90 3RF lidocaine-prilocaine 2.5-2.5 % cream See Rx Instructions .ROUTE .COMPLEX Qty: 30 2RF Dose Instruction: APPLY TO THE AFFECTED AREA(S) TWICE DAILY Rx Instructions: APPLY TO THE AFFECTED AREA(S) TWICE DAILY prochlorperazine maleate 10 mg tablet 10 mg PO BID PRN (Reason: nausea and vomiting) Qty: 60 1RF mecobalamin (vitamin B12) 1,000 mcg tablet,chewable 1,000 mcg PO DAILY Qty: 90 0RF losartan 100 mg tablet 100 mg PO DAILY Qty: 90 1RF fluticasone propionate [Flonase Allergy Relief] 50 mcg/actuation sp ray,suspension 1 spray intranasal DAILY Qty: 16 0RF Rx Instructions: administer into each nostril pantoprazole 40 mg tablet,delayed release (DR/EC) 40 mg PO DAILY Qty: 90 3RF gabapentin 300 mg capsule See Rx Instructions .ROUTE .COMPLEX Qty: 90 5RF Dose Instruction: take 1 capsule BY MOUTH THREE TIMES DAILY Rx Instructions: take 1 capsule BY MOUTH THREE TIMES DAILY metformin 500 mg tablet extended release 24 hr See Rx Instructions .ROUTE .COMPLEX Qty: 60 5RF Dose Instruction: TAKE 1 TABLET BY MOUTH TWICE DAILY Rx Instructions: TAKE 1 TABLET BY MOUTH TWICE DAILY tizanidine 4 mg tablet See Rx Instructions .ROUTE .COMPLEX Qty: 90 5RF Dose Instruction: TAKE 1 TABLET BY MOUTH EVERY 8 HOURS NEEDED FOR muscle spasticity Rx Instructions: TAKE 1 TABLET BY MOUTH EVERY 8 HOURS NEEDED FOR muscle spasticity ketoconazole 2 % shampoo 1 applic topical .3x weekly Qty: 120 1RF fluconazole 150 mg tablet 150 mg PO Q3D Qty: 3 0RF sennosides-docusate sodium [Senna-S] 8.6-50 mg tablet 1 tab-cap PO DAILY Qty: 10 0RF albuterol sulfate 90 mcg/actuation HFA aerosol inhaler 2 inh INHALATION Q4H PRN (Reason: shortness of breath or wheezing) Qty: 18 0RF Methadone (Unknown Source) See Rx Instructions .ROUTE .COMPLEX Rx Instructions: Take 20mg daily. May take aditional 20mg in the evening if needed. UNKNOWN SOURCE Discontinued potassium chloride 20 mEq tablet extended release 20 meq PO BID No Action amoxicillin-pot clavulanate [Augmentin] 500-125 mg tablet 1 tab PO BID Qty: 14 0RF atenolol 50 mg tablet 100 mg PO ONCE potassium chloride [K-Tab] 20 mEq tablet extended release 20 meq PO DAILY Discharge Orders: Discharge Order (Routine); Ordered 01/01/25 Ordered By: Kiersten Yang Referrals: Wilner Hdez DO [Primary Care Provider] - 01/11/25 1:30 pm (APPOINTMENT AT [facility] [phone]) Discharge Diet: Diabetic Discharge Activity: Increase activity as tolerated Patient Instructions: Cellulitis, Doxycycline (By mouth), Opioid Safety Discharge Attestations Time Spent in Discharge Care*: greater than 30 min Specific Discharge Activities: educating patient, discussing with pillowcase folder/social workers/dc planners, documenting/other paperwork and evaluating patient/reviewing data Status at Discharge: Cognitive status at discharge: cognitively intact , Behavioral status at discharge: cooperative , Functional status at discharge: bed bound , Overall status at discharge: patient is progressing back to baseline Quality Metrics Clinical Quality Measures [ No reported AMI, CVA or VTE this stay] Coding Level of Care Code Acute Code for g Fwd Diagnoses Cellulitis L03.90 Type 2 diabetes mellitus with diabetic peripheral angiopathy without gangrene, without long-term current use of insulin E11.51 Diabetes mellitus half-way insulin use: without half-way use Diabetes mellitus complication status: with circulatory complication Diabetes mellitus complication detail: with peripheral angiopathy without gangrene Essential hypertension I10 GERD without esophagitis K21.9 Other chronic pain G89.29
== END 2025-01-01 17:37 | disposition home or self-care (01) ==
LOC: ER 21:40 → ER IP 21:47 → MEDSURG 12-30 14:15
PROVIDERS: Family Medicine; Admitting Provider Internal Medicine; Emergency Provider Emergency Medicine; PCP Family Medicine; Visit Provider Hospitalist
DX: L03.311 Cellulitis of abdominal wall (principal); Z90.711 Acquired absence of uterus with remaining cervical stump; J44.9 Chronic obstructive pulmonary disease, unspecified; E78.5 Hyperlipidemia, unspecified; Z79.899 Other long term (current) drug therapy; Z79.84 Long term (current) use of oral hypoglycemic drugs; Z88.2 Allergy status to sulfonamides; Z88.8 Allergy status to other drugs, medicaments and biological substances; Z88.5 Allergy status to narcotic agent; Z91.09 Other allergy status, other than to drugs and biological substances; K21.9 Gastro-esophageal reflux disease without esophagitis; G89.29 Other chronic pain; F41.8 Other specified anxiety disorders; Z85.118 Personal history of other malignant neoplasm of bronchus and lung; E11.42 Type 2 diabetes mellitus with diabetic polyneuropathy; Z86.711 Personal history of pulmonary embolism; Z99.3 Dependence on wheelchair; I11.0 Hypertensive heart disease with heart failure; I50.32 Chronic diastolic (congestive) heart failure; Z89.512 Acquired absence of left leg below knee; Z89.611 Acquired absence of right leg above knee; Z96.652 Presence of left artificial knee joint; F17.210 Nicotine dependence, cigarettes, uncomplicated; E11.51 Type 2 diabetes mellitus with diabetic peripheral angiopathy without gangrene; I89.0 Lymphedema, not elsewhere classified; J96.11 Chronic respiratory failure with hypoxia
CPT/HCPCS: 36415; 36416; 51702; 74177; 80048; 80053; 82962; 83735; 84100; 84145; 85025; 86140; 94760; 96365; 96372; 96375; 99285; G0378; J0692; J1450; J1650; J1815; J2020; J2405

== ENCOUNTER 2025-01-01 17:50 | Emergency (ER) | payer MEDICARE, MEDICAID, SELFPAY ==
[2025-01-01 17:52] VITALS: BP 157/98; PULSE 72; RESP 16; TEMP 36.7; O2SAT 95; BMI 32.3
--- NOTE | 2025-01-01 18:08 | W.ED.WOUNDLC ---
HPI - Wound/Laceration General: Chief Complaint: Wound/Laceration Stated Complaint: amputee bleeding Time Seen by Provider: 01/01/25 17:53 Source: patient Mode of arrival: wheelchair Limitations: no limitations History of Present Illness: Patient is a 64-year-old female who was just discharged from the hospital here after her left BKA stump got bumped getting her into the vehicle and is now bleeding. Patient is a bilateral lower extremity amputee. She does follow-up with Dr. Champagne at the wound care clinic. She has also been recently referred to a specialty company for a stump manager sales and marketing. She has had issues with lymphedema. Apparently a family friend named Levi picked her up at time of her hospital discharge just earlier and he has a truck that is hard to get in and out of and he accidentally bumped patient's stump getting her into the truck. Onset (ago): hour(s) Extremity Location: Left: knee Context: accidental Associated symptoms: Reports no associated symptoms; Denies fever(s) Related Data Home Medications ?Medication ?Instructions ?Recorded ?Confirmed Methadone (Unknown Source) See Rx Instructions .Route .COMPLEX 12/16/23 12/30/24 atenolol 50 mg tablet 100 mg PO BID 11/03/24 12/30/24 amlodipine 5 mg tablet 5 mg PO DAILY 12/30/24 12/30/24 Previous Rx's ?Medication ?Instructions ?Recorded albuterol sulfate 90 mcg/actuation 2 inh inhalation Q4H PRN shortness 07/17/23 aerosol inhaler of breath or wheezing #18 grams pantoprazole 40 mg tablet,delayed 40 mg PO DAILY #90 tabs 02/26/24 release furosemide 40 mg tablet 40 mg PO DAILY PRN Edema #90 tabs 03/25/24 sennosides 8.6 mg-docusate sodium 1 tab-cap PO DAILY #10 tabs 05/04/24 50 mg tablet (Senna-S) prochlorperazine maleate 10 mg 10 mg PO BID PRN nausea and 08/06/24 tablet vomiting #60 tabs losartan 100 mg tablet 100 mg PO DAILY #90 tabs 09/04/24 mecobalamin (vitamin B12) 1,000 1,000 mcg PO DAILY #90 tabs 09/04/24 mcg chewable tablet gabapentin 300 mg capsule See Rx Instructions .Route 09/14/24 .COMPLEX #90 caps metformin 500 mg tablet,extended See Rx Instructions .Route 09/14/24 release 24 hr .COMPLEX #60 tabs tizanidine 4 mg tablet See Rx Instructions .Route 09/14/24 .COMPLEX #90 tabs diazepam 5 mg tablet 5 mg PO DAILY PRN anxiety 30 days 11/03/24 #10 tabs fenofibrate nanocrystallized 145 145 mg PO DAILY #90 tabs 11/03/24 mg tablet lidocaine-prilocaine 2.5 %-2.5 % See Rx Instructions .Route 11/03/24 topical cream .COMPLEX #30 grams fluticasone propionate 50 1 spray intranasal DAILY nasal 12/09/24 mcg/actuation nasal congestion #16 grams spray,suspension (Flonase Allergy Relief) ketoconazole 2 % shampoo 1 applic topical .3x weekly #120 mL 12/12/24 fluconazole 150 mg tablet 150 mg PO Q3D 3 doses #3 tabs 12/30/24 doxycycline hyclate 100 mg capsule 100 mg PO BID 7 days #14 caps 01/01/25 Allergies Allergy/AdvReac Type Severity Reaction Status Date / Time nalbuphine Allergy Unknown sick to Verified 12/09/24 09:52 stomach adhesive tape Allergy rash Verified 12/09/24 09:52 amitriptyline Allergy Unknown Verified 12/09/24 09:52 morphine Allergy ADR-Vomitin Verified 12/09/24 09:52 g nitrofurantoin (From Allergy ADR-Vomitin Verified 12/09/24 09:52 Macrobid) g Sulfa (Sulfonamide Allergy Itch all Verified 12/09/24 09:52 Antibiotics) over Review of Systems Const: Denies: fever(s) Musc: Reports: other (bleeding to L BKA stump) Skin/Breast: Reports: other (bleeding/chronic wounds to L BKA stump) PFSH ED PFSH: Medical History Chronic pain Left below-knee amputee GERD without esophagitis Unable to ambulate Essential hypertension Depression with anxiety Diabetes mellitus, type II Hx of malignant neoplasm of lung hx of lung cancer L upper lobe txed w/ radiation only at [place] Amputation of left lower extremity below knee Right above-knee amputee Leg swelling Wound dehiscence Diabetic peripheral neuropathy associated with type 2 diabetes mellitus Postoperative anemia Pulmonary embolism Chronic anxiety Chronic hypercapnic respiratory failure Noncompliance Uses wheelchair COPD (chronic obstructive pulmonary disease) Degenerative joint disease of left knee Closed fracture of left distal femur Closed femur fracture Cellulitis Diabetic neuropathy associated with type 2 diabetes mellitus Diastolic CHF Substance abuse History of DVT of lower extremity post-operative Hyperlipidemia History of cardioversion history of SVT vs for other arrhythmia Methamphetamine use Buetkbx-Ubwtk-Ssypy disease-like deformity of foot right Torticollis, acquired Has had good results with Botox in the past Lumbar radiculopathy Cervical post-laminectomy syndrome Surgical History History of left lower extremity amputation below the knee Status post above-knee amputation of right lower extremity Hx of neck surgery x 2, posterior laminectomy and cervical fusion with hardware in place, limited ROM neck at baseline Hx of total knee replacement (~2010) Right History of arthroplasty of left knee (~1976) History of partial hysterectomy ovaries remaining; hyst done for bleeding, no cancer Hx of dilation and curettage Hx of tubal ligation Hx of appendectomy Family History Family/Other Hypertension Depression Anxiety Diabetes Father Aneurysm Mother Hypertension Brother Diabetes Sister Diabetes Social History Smoking and tobacco/nicotine status: current every day tobacco/nicotine user cigarettes Alcohol intake: never Substance/Drug Use: current Substance/Drug use frequency: few times a month Other substance/drug use details: has used meth and marijuana; last meth use early Aug 11 Additional social history: unknown if patient continues to smoke, documented to smoke previously Household members: none Marital status: Life Partner Marital status details: but life partner X 23yrs--he is now in penitentiary--has charges Number of children: 2 Highest education level completed: Associate Degree: Occupational, Technical, Vocational Program Education level details: nursing school, cosmetology school Current occupational status: disabled Female Reproductive History: Spontaneous abortions: No Physical Exam Const: COMMON NORMALS: patient oriented x3, no limitations and alert GENERAL APPEARANCE: cooperative ORIENTATION/CONSCIOUSNESS: Yes awake, Yes oriented to person, Yes oriented to place and Yes oriented to time Resp: COMMON NORMALS: normal respiratory effort and clear to auscultation bilaterally AUSCULTATION: clear to auscultation bilaterally OTHER: satting normal on the 3-4L that she was discharged from the hospital with Cardio: COMMON NORMALS: regular rate and regular rhythm RATE: regular rate RHYTHM: regular rhythm Extremity: OTHER: bilateral amputee; L BKA with exposed raw skin that is chronic; no evidence for active infection; she does have a few hematomas on distal end of stump that were oozing/evacuated Neuro: COMMON NORMALS: patient oriented x3 SENSORIUM/ORIENTATION: Yes alert, Yes oriented to person, Yes oriented to place and Yes oriented to time Course Vital Signs: Vital signs: Vital Signs Temperature 98.0 F 01/01/25 17:52 Pulse Rate 72 01/01/25 17:52 Respiratory Rate 16 01/01/25 17:52 Blood Pressure 134/60 01/01/25 18:23 Pulse Oximetry 93 01/01/25 18:23 Oxygen Delivery Me thod Nasal Cannula 01/01/25 17:52 Oxygen Flow Rate 4 01/01/25 17:52 MDM - Wound/Laceration Medical Decision Making Patient chronically has friable/exposed skin to her L BKA stump. Bleeding was controlled here using surgicel and dressing. She has follow up [facility] Dr. Champagne scheduled for Saturday next week. No radiology studies performed this visit Discharge Plan Discharge Patient Disposition: Home Clinical Impression: Non-healing wound of left lower extremity, Left below-knee amputee Condition: Stable Prescriptions: No Action furosemide 40 mg tablet 40 mg PO DAILY PRN (Reason: Edema) Qty: 90 3RF atenolol 50 mg tablet 100 mg PO BID diazepam 5 mg tablet 5 mg PO DAILY PRN (Reason: anxiety) 30 Days Qty: 10 5RF fenofibrate nanocrystallized 145 mg tablet 145 mg PO DAILY Qty: 90 3RF lidocaine-prilocaine 2.5-2.5 % cream See Rx Instructions .ROUTE .COMPLEX Qty: 30 2RF Dose Instruction: APPLY TO THE AFFECTED AREA(S) TWICE DAILY Rx Instructions: APPLY TO THE AFFECTED AREA(S) TWICE DAILY prochlorperazine maleate 10 mg tablet 10 mg PO BID PRN (Reason: nausea and vomiting) Qty: 60 1RF mecobalamin (vitamin B12) 1,000 mcg tablet,chewable 1,000 mcg PO DAILY Qty: 90 0RF losartan 100 mg tablet 100 mg PO DAILY Qty: 90 1RF fluticasone propionate [Flonase Allergy Relief] 50 mcg/actuation spray,suspension 1 spray intranasal DAILY Qty: 16 0RF Rx Instructions: administer into each nostril pantoprazole 40 mg tablet,delayed release (DR/EC) 40 mg PO DAILY Qty: 90 3RF gabapentin 300 mg capsule See Rx Instructions .ROUTE .COMPLEX Qty: 90 5RF Dose Instruction: take 1 capsule BY MOUTH THREE TIMES DAILY Rx Instructions: take 1 capsule BY MOUTH THREE TIMES DAILY metformin 500 mg tablet extended release 24 hr See Rx Instructions .ROUTE .COMPLEX Qty: 60 5RF Dose Instruction: TAKE 1 TABLET BY MOUTH TWICE DAILY Rx Instructions: TAKE 1 TABLET BY MOUTH TWICE DAILY tizanidine 4 mg tablet See Rx Instructions .ROUTE .COMPLEX Qty: 90 5RF Dose Instruction: TAKE 1 TABLET BY MOUTH EVERY 8 HOURS NEEDED FOR muscle spasticity Rx Instructions: TAKE 1 TABLET BY MOUTH EVERY 8 HOURS NEEDED FOR muscle spasticity ketoconazole 2 % shampoo 1 applic topical .3x weekly Qty: 120 1RF fluconazole 150 mg tablet 150 mg PO Q3D Qty: 3 0RF sennosides-docusate sodium [Senna-S] 8.6-50 mg tablet 1 tab-cap PO DAILY Qty: 10 0RF amlodipine 5 mg tablet 5 mg PO DAILY doxycycline hyclate 100 mg capsule 100 mg PO BID 7 Days Qty: 14 0RF albuterol sulfate 90 mcg/actuation HFA aerosol inhaler 2 inh INHALATION Q4H PRN (Reason: shortness of breath or wheezing) Qty: 18 0RF Methadone (Unknown Source) See Rx Instructions .ROUTE .COMPLEX Rx Instructions: Take 20mg daily. May take aditional 20mg in the evening if needed. UNKNOWN SOURCE Discharge Orders: Discharge ED (Routine); Ordered 01/01/25 Ordered By: Dania Palacios Referrals: Wilner Hdez DO [Primary Care Provider] - Activity Restrictions/Additional Instructions: As we discussed, you currently have an appointment scheduled with Dr. Champagne next Saturday. Make sure you do not miss this appointment. The bleeding from your left stump has been controlled here. Leave dressing on over the next 48 hours. Area may require redressing at that time. It anytime you cannot get bleeding to subside or if it becomes severe, please return to the emergency department for reevaluation. Print Language: Belarusian Coding Level of Care Code ED Video Game Repair Technician for Trent Crews
--- NOTE | 2025-01-01 18:09 | PC.NURSE ---
Correction to triage note, unknown person did leave his name and number with registration, Levi [phone]
--- NOTE | 2025-01-01 18:14 | PC.NURSE ---
Spoke with nurse on [facility] who discharged this pt just about an hour before her arrival to the ER. The nurse advised she took the pt (no bleeding from amputation) to the exit in a wheelchair to Levi who had a lifted truck, the nurse questioned Levi on his plans of getting this pt in and out of the truck, Levi grabbed ahold of pt and man handled her into the truck, closed the door, and left. Nurse states Levi called back to [facility] center about 5 min later frantic because the amputation site was bleeding, same day surgery center advised pt to return to ER.
[2025-01-01 18:23] VITALS: BP 134/60; O2SAT 93
[2025-01-01 18:31] VITALS: BP 150/89; PULSE 73; RESP 16; O2SAT 94
[2025-01-01 19:36] VITALS: BP 150/89; PULSE 72; RESP 18; O2SAT 98
[2025-01-01 21:03] VITALS: BP 155/73; PULSE 69; RESP 18; O2SAT 93
== END 2025-01-01 21:26 | disposition home or self-care (01) ==
PROVIDERS: Emergency Provider Physician Assistant; PCP Family Medicine
DX: Z89.612 Acquired absence of left leg above knee (principal); S81.802A Unspecified open wound, left lower leg, initial encounter; X58.XXXA Exposure to other specified factors, initial encounter; Z79.84 Long term (current) use of oral hypoglycemic drugs; F17.210 Nicotine dependence, cigarettes, uncomplicated; J44.9 Chronic obstructive pulmonary disease, unspecified; E11.42 Type 2 diabetes mellitus with diabetic polyneuropathy; I11.0 Hypertensive heart disease with heart failure; I50.30 Unspecified diastolic (congestive) heart failure; E78.5 Hyperlipidemia, unspecified
CPT/HCPCS: 99282

== ENCOUNTER → 2025-01-08 08:51 | Outpatient (BNVA) | payer MEDICARE, MEDICAID, SELFPAY | PROVIDERS: PCP Family Medicine; Visit Provider Thoracic Surgery (Cardiothoracic Vascular Surgery) | DX: I96 Gangrene, not elsewhere classified (principal); I89.0 Lymphedema, not elsewhere classified; S81.802D Unspecified open wound, left lower leg, subsequent encounter; W22.8XXD Striking against or struck by other objects, subsequent encounter; Z89.512 Acquired absence of left leg below knee | CPT/HCPCS: 11042; 11045 ==

== ENCOUNTER → 2025-01-20 13:53 | Outpatient (BNVA) | payer MEDICARE, MEDICAID, SELFPAY | PROVIDERS: PCP Family Medicine; Visit Provider Thoracic Surgery (Cardiothoracic Vascular Surgery) | DX: I96 Gangrene, not elsewhere classified (principal); T87.81 Dehiscence of amputation stump; Z89.512 Acquired absence of left leg below knee | CPT/HCPCS: 97597; 97598; A6197 ==

== ENCOUNTER → 2025-01-27 13:55 | Outpatient (BNVA) | payer MEDICARE, MEDICAID, SELFPAY | PROVIDERS: PCP Family Medicine; Visit Provider Thoracic Surgery (Cardiothoracic Vascular Surgery) | DX: I96 Gangrene, not elsewhere classified (principal); T87.81 Dehiscence of amputation stump; Y83.8 Other surgical procedures as the cause of abnormal reaction of the patient, or of later complication, without mention of misadventure at the time of the procedure; Z89.512 Acquired absence of left leg below knee | CPT/HCPCS: 97597; 97598; A6197 ==

== ENCOUNTER → 2025-02-03 14:05 | Outpatient (BNVA) | payer MEDICARE, MEDICAID, SELFPAY | PROVIDERS: PCP Family Medicine; Visit Provider Thoracic Surgery (Cardiothoracic Vascular Surgery) | DX: I96 Gangrene, not elsewhere classified (principal); T87.81 Dehiscence of amputation stump; Y83.8 Other surgical procedures as the cause of abnormal reaction of the patient, or of later complication, without mention of misadventure at the time of the procedure; Z89.512 Acquired absence of left leg below knee | CPT/HCPCS: 97597; 97598; A6197 ==

== ENCOUNTER → 2025-02-17 11:05 | Outpatient (BNVA) | payer MEDICARE, MEDICAID, SELFPAY | PROVIDERS: PCP Family Medicine; Visit Provider Thoracic Surgery (Cardiothoracic Vascular Surgery) | DX: I96 Gangrene, not elsewhere classified (principal); T87.81 Dehiscence of amputation stump; Y83.8 Other surgical procedures as the cause of abnormal reaction of the patient, or of later complication, without mention of misadventure at the time of the procedure; Z89.512 Acquired absence of left leg below knee | CPT/HCPCS: 97597; 97598 ==

== ENCOUNTER → 2025-03-17 10:43 | Outpatient (BNVA) | payer MEDICARE, MEDICAID, SELFPAY | PROVIDERS: PCP Family Medicine; Visit Provider Thoracic Surgery (Cardiothoracic Vascular Surgery) | DX: I89.0 Lymphedema, not elsewhere classified (principal); L98.491 Non-pressure chronic ulcer of skin of other sites limited to breakdown of skin; Z89.512 Acquired absence of left leg below knee | CPT/HCPCS: 97597; 97598 ==

== ENCOUNTER → 2025-03-31 10:51 | Outpatient (BNVA) | payer MEDICARE, MEDICAID, SELFPAY | PROVIDERS: PCP Family Medicine; Visit Provider Thoracic Surgery (Cardiothoracic Vascular Surgery) | DX: I96 Gangrene, not elsewhere classified (principal); I89.0 Lymphedema, not elsewhere classified; L97.821 Non-pressure chronic ulcer of other part of left lower leg limited to breakdown of skin; Z89.512 Acquired absence of left leg below knee | CPT/HCPCS: 97597; 97598 ==

== ENCOUNTER → 2025-04-21 11:03 | Outpatient (BNVA) | payer MEDICARE, MEDICAID, SELFPAY | PROVIDERS: PCP Family Medicine; Visit Provider Thoracic Surgery (Cardiothoracic Vascular Surgery) | DX: I96 Gangrene, not elsewhere classified (principal); L97.821 Non-pressure chronic ulcer of other part of left lower leg limited to breakdown of skin; I89.0 Lymphedema, not elsewhere classified; Z89.512 Acquired absence of left leg below knee | CPT/HCPCS: 97597; 97598 ==

== ENCOUNTER 2025-04-25 00:55 | Inpatient (IN) | payer MEDICARE, MEDICAID, SELFPAY ==
[2025-04-25] VITALS (12 sets, daily range): BP systolic 107–181; BP diastolic 64–106; PULSE 81–100; RESP 15–22; TEMP 38.2; O2SAT 85–98; BMI 40.3
--- NOTE | 2025-04-25 01:38 | CTR_ITS ---
PROCEDURE INFORMATION: Exam: CT Left Lower Extremity With Contrast, Knee Exam date and time: 04/25/2025 1:51 AM Age: 65 years old Clinical indication: Pain; Left; Prior surgery; Surgery date: 6+ months; Surgery type: Femoral nail. Amputation; Patient with below knee amputation has swelling, redness, and multiple small ulcerations to stump. History of recurrent cellulitis. ; Additional info: Infection, pain TECHNIQUE: Imaging protocol: CT of the left lower extremity with intravenous contrast was performed. Exam focused on the knee. Radiation optimization: All CT scans at this facility use at least one of these dose optimization techniques: automated exposure control; mA and/or kV adjustment per patient size (includes targeted exams where dose is matched to clinical indication); or iterative reconstruction. Contrast material: OMNI 350; Contrast volume: 100 ml; Contrast route: INTRAVENOUS (IV); COMPARISON: [place] [id number] 04/28/2024 2:57 PM RADIATION DOSE METRICS: Total DLP (mGy-cm): 879.43 FINDINGS: Bones/joints: Intramedullary nail with interlocking screws in the femur. There has been [id number] amputation. There is osteopenia. No fracture. No evidence of osteomyelitis. Soft tissues: Mild circumferential edema of the lower thigh and over the stump. No soft tissue air or gas. Other findings: Skin thickening over the distal aspect of the stump. No focal collection or evidence of abscess. CT/CT knee LT w con [id number] IMPRESSION: No focal collection or evidence of abscess. No acute findings.
[2025-04-25] MEDS: iohexol 350 mg/mL 500 mL Btl (per mL) IV (01:52)
[2025-04-25 01:58] LABS: Basophils # 0.1 10^3/uL (0.0-0.1); Basophils % 0.4 %; Eosinophils # 0.2 10^3/uL (0.0-0.8); Eosinophils % 1.2 %; Hematocrit 37.9 % (36-47); Lymphocytes # 1.2 10^3/uL (0.8-4.8); Lymphocytes % 8.7 %; Mean Corpuscular HGB Conc 31.4 g/dL (30-55); Mean Corpuscular Hemoglobin 31.3 pg (27-33); Mean Corpuscular Volume 99.7 fl (85-98); Mean Platelet Volume 10.2 fL (7.4-10.4); Monocytes # 1.1 10^3/uL (0.2-0.9); Monocytes % 8.2 %; Neutrophils # 10.76 10^3/uL (1.8-7.7); Neutrophils % 81.2 %; Nucleated Red Blood Cells % 0 %; Platelet Count 226 10^3/cmm (157-399); Red Cell Distribution Width 14.6 % (12.1-15.1); White Blood Count 13.25 10^3/uL (3.29-11.43)
[2025-04-25 02:05] LABS: INR 0.95 (0.8-1.2)
[2025-04-25 02:06] LABS: Partial Thromboplastin Time 33.6 SECONDS (23.9-36.7)
[2025-04-25 02:10] LABS: Alanine Aminotransferase 12 U/L (0-33); Albumin Level 3.5 g/dL (3.5-5.2); Alkaline Phosphatase 101 U/L (35-105); Aspartate Amino Transferase 13 U/L (0-32); Blood Urea Nitrogen 19 mg/dL (8-23); C Reactive Protein 203.6 mg/L (0.0-4.9); Calcium 9.4 mg/dL (8.5-10.5); Carbon Dioxide 30 mmol/L (22-29); Chloride 95 mmol/L (98-107); Creatinine Clr Calc Pharmacy 89.5811; Globulin 3.6 g/dL (1.3-4.6); Glomerular Filtration Rate 123.8 mL/min (90-130); Glucose 101 mg/dL (65-115); Osmolality Calculated 286 mOsm/kg (285-295); Sodium 137 mmol/L (136-145); Total Bilirubin 0.5 mg/dL (0.15-1.2); Total Protein 7.1 g/dL (6.6-8.7)
[2025-04-25 02:11] LABS: Lactic Sepsis W/Reflex 0.7 mmol/L (0.5-2.2)
[2025-04-25] MEDS: HYDROmorphone 0.5 MG/0.5 ML INJ 1 MG IVP ×2 (02:19→08:14)
[2025-04-25 02:32] LABS: Erythrocyte Sedimentation Rate 57 mm/hr (0-15)
[2025-04-25] MEDS: clindamycin 600 MG/50 ML PREMIX 100 MG IV (02:50)
--- NOTE | 2025-04-25 04:46 | W.ED.EXTPRO ---
HPI - Extremity Problem General: Chief complaint: Extremity Problem,Nontraumatic Stated complaint: LEG PAIN Time Seen by Provider: 04/25/25 01:31 History of Present Illness: Patient is a 65-year-old female from home by ambulance seen for painful left knee. She has underwent left leg below the knee amputation and is currently being seen by wound care for this. She reports that over the last 2 days she has had increasing redness and warmth and tenderness of the left stump and lower leg to above the level of the knee. Pain is worse with motion and better with rest. She denies fever. She is not currently taking antibiotics. Pain is currently 8 of 10 at rest. She is tearful. Related Data Home Medications ?Medication ?Instructions ?Recorded ?Confirmed Methadone (Unknown Source) See Rx Instructions .Route .COMPLEX 12/16/23 03/25/25 Previous Rx's ?Medication ?Instructions ?Recorded mecobalamin (vitamin B12) 1,000 1,000 mcg PO DAILY #90 tabs 09/04/24 mcg chewable tablet fenofibrate nanocrystallized 145 145 mg PO DAILY #90 tabs 11/03/24 mg tablet fluticasone propionate 50 1 spray intranasal DAILY nasal 12/09/24 mcg/actuation nasal congestion #16 grams spray,suspension (Flonase Allergy Relief) lidocaine-prilocaine 2.5 %-2.5 % See Rx Instructions .Route 02/10/25 topical cream .COMPLEX #30 grams losartan 100 mg tablet See Rx Instructions .Route 02/10/25 .COMPLEX #90 tabs potassium chloride 20 mEq See Rx Instructions .Route 02/10/25 tablet,extended release .COMPLEX #90 tabs atenolol 50 mg tablet See Rx Instructions .Route 02/16/25 .COMPLEX #60 tabs gabapentin 300 mg capsule See Rx Instructions .Route 02/16/25 .COMPLEX #90 caps metformin 500 mg tablet,extended See Rx Instructions .Route 02/16/25 release 24 hr .COMPLEX #60 tabs tizanidine 4 mg tablet See Rx Instructions .Route 02/16/25 .COMPLEX #90 tabs diazepam 5 mg tablet 5 mg PO DAILY PRN anxiety 30 days 03/11/25 #10 tabs pantoprazole 40 mg tablet,delayed 40 mg PO DAILY #90 tabs 03/11/25 release prochlorperazine maleate 10 mg 10 mg PO BID PRN nausea and 03/11/25 tablet vomiting #60 tabs escitalopram oxalate 10 mg tablet 10 mg PO DAILY #30 tabs 04/16/25 (Lexapro) Allergies Allergy/AdvReac Type Severity Reaction Status Date / Time nalbuphine Allergy Unknown sick to Verified 03/25/25 09:50 stomach adhesive tape Allergy rash Verified 03/25/25 09:50 amitriptyline Allergy Unknown Verified 03/25/25 09:50 morphine Allergy ADR-Vomitin Verified 03/25/25 09:50 g nitrofurantoin (From Allergy ADR-Vomitin Verified 03/25/25 09:50 Macrobid) g Sulfa (Sulfonamide Allergy Itch all Verified 03/25/25 09:50 Antibiotics) over PFSH ED PFSH: Medical History Chronic pain Left below-knee amputee GERD without esophagitis Unable to ambulate Essential hypertension Depression with anxiety Diabetes mellitus, type II Hx of malignant neoplasm of lung hx of lung cancer L upper lobe txed w/ radiation only at [place] Amputation of left lower extremity below knee Right above-knee amputee Leg swelling Wound dehiscence Diabetic peripheral neuropathy associated with type 2 diabetes mellitus Postoperative anemia Pulmonary embolism Chronic anxiety Chronic hypercapnic respiratory failure Noncompliance Uses wheelchair COPD (chronic obstructive pulmonary disease) Degenerative joint disease of left knee Closed fracture of left distal femur Closed femur fracture Cellulitis Diabetic neuropathy associated with type 2 diabetes mellitus Diastolic CHF Substance abuse History of DVT of lower extremity post-operative Hyperlipidemia History of cardioversion history of SVT vs for other arrhythmia 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 Torticollis, acquired Has had good results with Botox in the past Lumbar radiculopathy Cervical post-laminectomy syndrome Surgical History History of left lower extremity amputation below the knee Status post above-knee amputation of right lower extremity Hx of neck surgery x 2, posterior laminectomy and cervical fusion with hardware in place, limited ROM neck at baseline Hx of total knee replacement (~2010) Right History of arthroplasty of left knee (~1976) History of partial hysterectomy ovaries remaining; hyst done for bleeding, no cancer Hx of dilation and curettage Hx of tubal ligation Hx of appendectomy Family History Family/Other Hypertension Depression Anxiety Diabetes Father Aneurysm Mother Hypertension Brother Diabetes Sister Diabetes Social History Smoking and tobacco/nicotine status: current every day tobacco/nicotine user cigarettes Alcohol intake: never Substance/Drug Use: current Substance/Drug use frequency: few times a month Other substance/drug use details: has used meth and marijuana; last meth use early Aug 11 Additional social history: unknown if patient continues to smoke, documented to smoke previously Household members: none Marital status: Life Partner Marital status details: but life partner X 23yrs--he is now in [place] [facility]--has charges Number of children: 2 Highest education level completed: Associate Degree: Occupational, Technical, Vocational Program Education level details: nursing school, cosmetology school Current occupational status: disabled Female Reproductive History: Spontaneous abortions: No Physical Exam Const: COMMON NORMALS: patient oriented x3 and alert OTHER: Mild distress due to pain HENMT: COMMON NORMALS: normocephalic and atraumatic HEAD & SCALP: normocephalic and atraumatic Eye: COMMON NORMALS: Equal, round and reactive pupils present, EOMs intact bilaterally and no scleral icterus PUPIL: Yes Equal, round and reactive pupils present Resp: COMMON NORMALS: normal respiratory effort and No retractions Cardio: COMMON NORMALS: regular rate, regular rhythm and No murmurs present (Cardio) RATE: regular rate RHYTHM: regular rhythm GI: COMMON NORMALS: Normal to inspection, nondistended, normoactive bowel sounds present, Soft to palpation and non-tender PALPATION: Yes Soft to palpation Extremity: OTHER: Left leg below the knee amputation with areas of skin breakdown at the stump with erythema surrounding extending to above the level of the knee circumferentially concerning for cellulitis. Neuro: COMMON NORMALS: patient oriented x3 SENSORIUM/ORIENTATION: Yes alert Skin: COMMON NORMALS: no rashes or lesions noted GENERAL SKIN EXAM: no rashes or lesions noted Course Vital Signs: Vital signs: Vital Signs Temperature 100.7 F H 04/25/25 01:11 Pulse Rate 81 04/25/25 04:00 Respiratory Rate 17 04/25/25 04:00 Blood Pressure 149/70 04/25/25 04:00 Pulse Oximetry 94 04/25/25 04:00 Oxygen Delivery Me thod Room Air 04/25/25 04:00 Oxygen Flow Rate 2 04/25/25 03:15 MDM - Extremity (Nontraumatic) Medical Decision Making Patient remained hemodynamically stable through ED course. White blood cell count is somewhat elevated. Blood cultures were drawn. CT of the lower extremity with contrast was performed and Fortune does not show evidence of gas gangrene, joint involvement, or other abnormalitybesides what appears to be cellulitis. I believe this area of the leg is too large to be treated with oral antibiotics and is causing a fever. She was given IV clindamycin and will be admitted to the hospitalist service for further observation and care Lab Data 04/25/25 01:30 04/25/25 01:[address] 04/25/25 01:38 IMPRESSION: No focal collection or evidence of abscess. No acute findings. Laboratory Results WBC 13.25 10^3/uL (3.29-11.43) H 04/25/25 01:30 RBC 3.80 10^6/uL (3.85-5.65) L 04/25/25 01:30 Hgb 11.90 g/dL (11.27-16.99) 04/25/25 01:30 Hct 37.9 % (36-47) 04/25/25 01:30 MCV 99.7 fl (85-98) H 04/25/25 01:30 MCH 31.3 pg (27-33) 04/25/25 01:30 MCHC 31.4 g/dL (30-55) 04/25/25 01:30 RDW 14.6 % (12.1-15.1) 04/25/25 01:30 Plt Count 226 10^3/cmm (157-399) 04/25/25 01:30 MPV 10.2 fL (7.4-10.4) 04/25/25 01:30 Neut % (Auto) 81.2 % 04/25/25 01:30 Lymph % (Auto) 8.7 % 04/25/25 01:30 [place] % (Auto) 8.2 % 04/25/25 01:30 Eos % (Auto) 1.2 % 04/25/25 01:30 Baso % (Auto) 0.4 % 04/25/25 01:30 Neut # (Auto) 10.76 10^3/uL (1.8-7.7) H 04/25/25 01:30 Lymph # (Auto) 1.2 10^3/uL (0.8-4.8) 04/25/25 01:30 [place] # (Auto) 1.1 10^3/uL (0.2-0.9) H 04/25/25 01:30 Eos # (Auto) 0.2 10^3/uL (0.0-0.8) 04/25/25 01:30 Baso # (Auto) 0.1 10^3/uL (0.0-0.1) 04/25/25 01:30 Nucleated RBC % (auto) 0 % 04/25/25 01:30 Nucleated RBCs # 0.0 /100WBC 04/25/25 01:30 ESR 57 mm/hr (0-15) H 04/25/25 01:30 PT 13.40 SECONDS (12.1-14.9) 04/25/25 01:30 INR 0.95 (0.8-1.2) 04/25/25 01:30 APTT 33.6 SECONDS (23.9-36.7) 04/25/25 01:30 Sodium 137 mmol/L (136-145) 04/25/25 01:30 Potassium 4.0 mmol/L (3.5-5.1) 04/25/25 01:30 Chloride 95 mmol/L (98-107) L 04/25/25 01:30 Carbon Dioxide 30 mmol/L (22-29) H 04/25/25 01:30 Anion Gap 16.0 (5-19) 04/25/25 01:30 BUN 19 mg/dL (8-23) 04/25/25 01:30 Creatinine 0.5 mg/dL (0.5-0.9) 04/25/25 01:30 GFR Calculation 123.8 mL/min (90-130) 04/25/25 01:30 Glucose 101 mg/dL (65-115) 04/25/25 01:30 Calculated Osmolality 286 mOsm/kg (285-295) 04/25/25 01:30 Lactic Acid 0.7 mmol/L (0.5-2.2) 04/25/25 01:30 Calcium 9.4 mg/dL (8.5-10.5) 04/25/25 01:30 Total Bilirubin 0.5 mg/dL (0.15-1.2) 04/25/25 01:30 AST 13 U/L (0-32) 04/25/25 01:30 ALT 12 U/L (0-33) 04/25/25 01:30 Alkaline Phosphatase 101 U/L (35-105) 04/25/25 01:30 C-Reactive Protein 203.6 mg/L (0.0-4.9) H 04/25/25 01:30 Total Protein 7.1 g/dL (6.6-8.7) 04/25/25 01:30 Albumin 3.5 g/dL (3.5-5.2) 04/25/25 01:30 Globulin 3.6 g/dL (1.3-4.6) 04/25/25 01:30 All radiology interpretation(s) finalized by discharge Discharge Plan Discharge Patient Disposition: Admitted As Inpatient Admit Provider: Yvonne Phillips Clinical Impression: Cellulitis of left leg Condition: Stable Coding Level of Care Code ED Adult Remedial Education Instructor for Trent Crews
--- NOTE | 2025-04-25 06:27 | PM.HP ---
Providers/Chief Complaint Admitting Physician: Yvonne Phillips MD--- patient is seen and admitted after 12 midnight Primary Care Provider: Wilner Hdez DO Chief Complaint: LEG PAIN History of Present Illness Polina Snyder is a 65 year old female with medical history significant for diabetes left BKA and bilateral lower extremity amputation with a right AKA. Patient is coming in with a left BKA pain and erythema warm to touch significant for cellulitis in the area with the hope to follow through with medical management with antibiotics. Nothing to debride. Patient had received clindamycin in the emergency room and I will continue with his antibiotics for it we will cover the anaerobes gram-negative and gram-positive. Patient left BKA is swollen red warm to touch and actually twice as big as the right AKA. Patient is an inpatient and met the criteria because of requiring IV antibiotics in-house for a very extensive left BKA infection needing clindamycin. Patient will need a minimum of 2 midnights for care Review of Systems Narrative: Patient is alert awake oriented x 3 and upon 10 organ system review evaluated found to be unremarkable except for infectious process in the musculoskeletal tissues of the left BKA. Medications/Allergies Home Medications ?Medication ?Instructions ?Recorded ?Confirmed ?Last Taken ?Type Methadone (Unknown Source) See Rx Instructions .Route .COMPLEX 12/16/23 04/25/25 04/24/25 History mecobalamin (vitamin B12) 1,000 1,000 mcg PO DAILY #90 tabs 09/04/24 04/25/25 04/24/25 Rx mcg chewable tablet fenofibrate nanocrystallized 145 145 mg PO DAILY #90 tabs 11/03/24 04/25/25 04/24/25 Rx mg tablet diazepam 5 mg tablet 5 mg PO DAILY PRN anxiety 30 days 03/11/25 04/25/25 Unknown Rx #10 tabs pantoprazole 40 mg tablet,delayed 40 mg PO DAILY #90 tabs 03/11/25 04/25/25 04/24/25 Rx release prochlorperazine maleate 10 mg 10 mg PO BID PRN nausea and 03/11/25 04/25/25 Unknown Rx tablet vomiting #60 tabs escitalopram oxalate 10 mg tablet 10 mg PO DAILY #30 tabs 04/16/25 04/25/25 Unknown Rx (Lexapro) atenolol 50 mg tablet 50 mg PO BID 04/25/25 04/25/25 04/24/25 History fluticasone propionate 50 1 spray intranasal DAILY PRN nasal 04/25/25 04/25/25 Unknown History mcg/actuation nasal congestion spray,suspension (Flonase Allergy Relief) furosemide 40 mg tablet 40 mg PO DAILY PRN Edema 04/25/25 04/25/25 Unknown History gabapentin 300 mg capsule 300 mg PO TID 04/25/25 04/25/25 04/24/25 History ketoconazole 2 % shampoo 1 applic topical .[id number] 04/25/25 04/25/25 Unknown History lidocaine-prilocaine 2.5 %-2.5 % 1 applic topical BID 04/25/25 04/25/25 04/24/25 History topical cream losartan 100 mg tablet 100 mg PO DAILY 04/25/25 04/25/25 04/24/25 History metformin 500 mg tablet,extended 500 mg PO BID 04/25/25 04/25/25 04/24/25 History release 24 hr potassium chloride 20 mEq 20 meq PO BID 04/25/25 04/25/25 04/24/25 History tablet,extended release tizanidine 4 mg tablet 4 mg PO Q8H PRN Muscle Spasticity 04/25/25 04/25/25 04/24/25 History Allergies Allergy/AdvReac Type Severity Reaction Status Date / Time nalbuphine Allergy Unknown sick to Verified 03/25/25 09:50 stomach adhesive tape Allergy rash Verified 03/25/25 09:50 amitriptyline Allergy Unknown Verified 03/25/25 09:50 morphine Allergy ADR-Vomitin Verified 03/25/25 09:50 g nitrofurantoin (From Allergy ADR-Vomitin Verified 03/25/25 09:50 Macrobid) g Sulfa (Sulfonamide Allergy Itch all Verified 03/25/25 09:50 Antibiotics) over PFSH Acute PFSH: Medical History Chronic pain Left below-knee amputee GERD without esophagitis Unable to ambulate Essential hypertension Depression with anxiety Diabetes mellitus, type II Hx of malignant neoplasm of lung hx of lung cancer L upper lobe txed w/ radiation only at [place] Amputation of left lower extremity below knee Right above-knee amputee Leg swelling Wound dehiscence Diabetic peripheral neuropathy associated with type 2 diabetes mellitus Postoperative anemia Pulmonary embolism Chronic anxiety Chronic hypercapnic respiratory failure Noncompliance Uses wheelchair COPD (chronic obstructive pulmonary disease) Degenerative joint disease of left knee Closed fracture of left distal femur Closed femur fracture Cellulitis Diabetic neuropathy associated with type 2 diabetes mellitus Diastolic CHF Substance abuse History of DVT of lower extremity post-operative Hyperlipidemia History of cardioversion history of SVT vs for other arrhythmia 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 Torticollis, acquired Has had good results with Botox in the past Lumbar radiculopathy Cervical post-laminectomy syndrome Surgical History History of left lower extremity amputation below the knee Status post above-knee amputation of right lower extremity Hx of neck surgery x 2, posterior laminectomy and cervical fusion with hardware in place, limited ROM neck at baseline Hx of total knee replacement (~2010) Right History of arthroplasty of left knee (~1976) History of partial hysterectomy ovaries remaining; hyst done for bleeding, no cancer Hx of dilation and curettage Hx of tubal ligation Hx of appendectomy Family History Family/Other Hypertension Depression Anxiety Diabetes Father Aneurysm Mother Hypertension Brother Diabetes Sister Diabetes Social History Smoking and tobacco/nicotine status: current every day tobacco/nicotine user cigarettes Alcohol intake: never Substance/Drug Use: current Substance/Drug use frequency: few times a month Other substance/drug use details: has used meth and marijuana; last meth use early Aug 11 Additional social history: unknown if patient continues to smoke, documented to smoke previously Household members: none Marital status: Life Partner Marital status details: but life partner X 23yrs--he is now in retirement--has charges Number of children: 2 Highest education level completed: Associate Degree: Occupational, Technical, Vocational Program Education level details: nursing school, cosmetology school Current occupational status: disabled Female Reproductive History: Spontaneous abortions: No Vitals/I&O/Wt Last Vital Signs Temp 100.7 F H 04/25/25 01:11 Pulse 81 04/25/25 04:00 Resp 17 04/25/25 04:00 BP 149/70 04/25/25 04:00 Pulse Ox 94 04/25/25 04:00 O2 Del Method Room Air 04/25/25 04:00 O2 Flow Rate 2 04/25/25 03:15 04/24/25 04/24/25 04/25/25 14:59 22:59 06:59 Intake Total 0 / 0 Balance 0 / 0 Weight last 48 hrs Weight 113.398 kg Physical Exam Narrative: Generally patient is doing okay but in pain to the left BKA cellulitis. HEENT normocephalic/atraumatic neck neck is supple cardiovascular heart is regular lungs are clear abdomen soft nontender nondistended unremarkable extremities edematous and they left BKA region is pretty swollen warm to touch very cellulitic. Initiated antibiotics with clindamycin for this patient. Patient need to be on antibiotics for treatment. There is not anything the breathable for this particular extremity. The right lower extremity AKA was infected and was treated last week according to the patient. Data 04/25/25 01:30 04/25/25 01:30 Micro: Microbiology 04/25/25 01:36 Blood Culture - Preliminary Blood SPECIMEN COLLECTED 04/25/25 01:30 Blood Culture - Preliminary Blood SPECIMEN COLLECTED A&P Assessment and plan (1) Cellulitis of left leg: Severe cellulitis of the left BKA - I have initiated IV clindamycin 900 mg IV Q8 - Monitor and treat accordingly - IV hydration normal saline (2) Hx of left BKA: Patient is with left BKA history continue to monitor and treat the infection (3) Diabetes mellitus, type II: Diabetes type 2 Continue insulin per protocol and keep patient euglycemic Continue to monitor and optimize Left BKA extremity pain - Continue with pain management PDMP PDMP Reviewed: Last Reviewed 04/25/25 08:06 by Yvonne Phillips MD Attestations Medical Necessity Statement*: Patient has severe cellulitis requiring IV antibiotics patient is also diabetic must continue to treat with IV antibiotics for patient care and appropriate management. Patient needs at least a minimum of 2 midnights for treatment patient meets inpatient criteria Coding Level of Care Code 67521 Diagnoses Cellulitis of left leg L03.116 Hx of left BKA Z89.512 Type 2 diabetes mellitus with diabetic peripheral angiopathy without gangrene, without long-term current use of insulin E11.51 Diabetes mellitus terminal supervisor insulin use: without terminal supervisor use Diabetes mellitus complication status: with circulatory complication Diabetes mellitus complication detail: with peripheral angiopathy without gangrene Time Spent (min) 70
--- NOTE | 2025-04-25 07:59 | PC.PHAR ---
Pt states she gets Methadone from [facility]. Pharmacy note on the chart states-PTS- [facility] HAS SOMEONE BRING THIS TO HER- NOT OBTAINED AT [facility]. Government quit funding the ride source to [facility]. Can't verify until Saturday. Pt has new order for Lexapro 10mg from 04/16/25 not picked up yet.
[2025-04-25 08:16] LABS: Glucose Point of Care 93 mg/dL (70-110)
[2025-04-25] MEDS: clindamycin 900 MG/50 ML PREMIX 100 MG IV ×2 (10:15→17:09)
--- NOTE | 2025-04-25 12:08 | PC.NURSE ---
pt sitting up eating lunch tray, given water
[2025-04-25 12:11] LABS: Glucose Point of Care 91 mg/dL (70-110)
[2025-04-25] MEDS: HYDROmorphone 0.5 MG/0.5 ML INJ IVP (14:10)
--- NOTE | 2025-04-25 14:54 | PM.PN ---
Subjective Subjective: States that she is having a lot of pain in the leg. She is emotional about her situation. Vitals/I&O/Wt Last Vital Signs Temp 100.7 F H 04/25/25 01:11 Pulse 94 04/25/25 13:31 Resp 22 H 04/25/25 13:31 BP 107/98 04/25/25 13:31 Pulse Ox 92 04/25/25 13:31 O2 Del Method Nasal Cannula 04/25/25 13:31 O2 Flow Rate 4 04/25/25 08:15 04/24/25 04/25/25 04/25/25 22:59 06:59 14:59 Intake Total 0 / 0 100 / 100 Balance 0 / 0 100 / 100 Weight last 48 hrs Weight 250 lb Physical Exam Narrative: General: Cooperative patient. She is tearful and upset with situation. HEENT: Normocephalic, Atraumatic. External ears normal. Nasal passages patent without drainage. MMM. Heart: RRR. Resp: LCTA. No respiratory distress, no use of accessory muscles. Abd: Soft, non-tender. Non-distended. Extremities: L BKA. There is skin breakdown with erythema around the stump and up the leg. Purulent discharge noted on the distal wounds. Skin: No rash or lesions on exposed areas. Urinary Catheter Management: Garber: Cath Placed During This Visit: yes Urinary Catheter Date of Insertion: 04/25/25 Urinary Catheter Time of Insertion: 13:31 Data 04/25/25 01:30 04/25/25 01:30 Micro: Microbiology 04/25/25 01:36 Blood Culture - Preliminary Blood SPECIMEN COLLECTED 04/25/25 01:30 Blood Culture - Preliminary Blood SPECIMEN COLLECTED A&P Assessment and plan (1) Cellulitis of left leg: (2) Fever: (3) Non-healing wound of left lower extremity: (4) Left below-knee amputee: (5) Leukocytosis: (6) Elevated C-reactive protein (CRP): (7) Elevated erythrocyte sedimentation rate: (8) Diabetes mellitus, type II: (9) Essential hypertension: Plan 65 y/o F admitted for Cellulitis of Left leg, fever, leukocytosis and elevated inflammatory markers, non-healing wound of the Left LE, which is previous BKA. Continue inpatient monitoring. She is currently in ER due to lack of bed availability. Started on Clindamycin and will continue. May need to expand coverage for other organisms. Fever today to 101. CRP elevated to 203. ESR to 57. Leukocytosis to 13k. CT of Left LE: Bones/joints: Intramedullary nail with interlocking screws in the femur. There has been xlhnq-xgi-sdml amputation. There is osteopenia. No fracture. No evidence of osteomyelitis. Soft tissues: Mild circumferential edema of the lower thigh and over the stump. No soft tissue air or gas. Other findings: Skin thickening over the distal aspect of the stump. No focal collection or evidence of abscess. No focal collection or evidence of abscess. No acute findings. Currently awaiting transfer to other facility due to lack of bed availability. Dilaudid for pain control. She is on methadone chronically. Pain may be difficult to control. Diabetes management with insulin SS. BCx pending and will follow. Diet consistent CHO. Recheck am labs. Code Status: Full IVF: NS@75 DVT PPx: Heparin GI PPx: None ABx: Clindamycin Diet: CC Discharge plan: Home PDMP PDMP Reviewed: Not Reviewed Attestations Medical Necessity Statement*: Patient has severe cellulitis requiring IV antibiotics patient is also diabetic must continue to treat with IV antibiotics for patient care and appropriate management. Patient needs at least a minimum of 2 midnights for treatment patient meets inpatient criteria Coding Level of Care Code Acute Code for Chg Fwd Moderate MDM includes number and complexity of problems actively addressed during encounter, amount and/or complexity of data reviewed/ordered and described risk of complication, morbidity or mortality of management as documented Diagnoses Cellulitis of left leg L03.116 Fever, unspecified fever cause R50.9 Fever type: unspecified Non-healing wound of left lower extremity S81.802A Left below-knee amputee Z89.512 Bandemia D72.825 Leukocytosis type: bandemia Elevated C-reactive protein (CRP) R79.82 Elevated erythrocyte sedimentation rate R70.0 Type 2 diabetes mellitus with diabetic peripheral angiopathy without gangrene, without long-term current use of insulin E11.51 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
[2025-04-25] MEDS: heparin 5,000 unit/mL INJ 1 mL 5000 UNIT SUBCUT (17:08)
[2025-04-25] MEDS: pantoprazole DR 40 mg Tablet PO (17:09)
[2025-04-25] MEDS: docusate sodium 100 mg Capsule PO (17:09)
[2025-04-25] MEDS: sodium chloride 0.9% 1,000 ML 75 ML IV (17:10)
--- NOTE | 2025-04-25 17:11 | PC.NURSE ---
per verbal order of Dr. Hdez to only administer 75mL/hr NS maintenance fluids.
[2025-04-25 17:17] LABS: Basophils % 0.2 %; Eosinophils # 0.1 10^3/uL (0.0-0.8); Eosinophils % 0.3 %; Hematocrit 36.3 % (36-47); Lymphocytes # 0.6 10^3/uL (0.8-4.8); Lymphocytes % 4.3 %; Mean Corpuscular HGB Conc 30.6 g/dL (30-55); Mean Corpuscular Volume 101.4 fl (85-98); Mean Platelet Volume 9.7 fL (7.4-10.4); Monocytes # 1.4 10^3/uL (0.2-0.9); Monocytes % 9.7 %; Neutrophils # 12.34 10^3/uL (1.8-7.7); Nucleated Red Blood Cells % 0 %; Platelet Count 208 10^3/cmm (157-399); Red Blood Count 3.58 10^6/uL (3.85-5.65); Red Cell Distribution Width 14.3 % (12.1-15.1); White Blood Count 14.53 10^3/uL (3.29-11.43)
--- NOTE | 2025-04-25 17:30 | PC.NURSE ---
pt gave this nurse and Michaela Whitmore RN verbal permission to sign transfer form, pt unable d/t pain 08/27 at this time.
--- NOTE | 2025-04-25 17:31 | PC.NURSE ---
@1734: report called to ELDY Grossman at [facility] on Stepdown unit. report number
--- NOTE | 2025-04-25 17:32 | PC.NURSE ---
pt is refusing to allow nurse to assist in turning. pt reports positioning self appropriately how she prefers.
[2025-04-25 17:34] LABS: Alanine Aminotransferase 10 U/L (0-33); Albumin Level 3.2 g/dL (3.5-5.2); Alkaline Phosphatase 103 U/L (35-105); Aspartate Amino Transferase 10 U/L (0-32); Blood Urea Nitrogen 12 mg/dL (8-23); Calcium 8.6 mg/dL (8.5-10.5); Carbon Dioxide 29 mmol/L (22-29); Chloride 96 mmol/L (98-107); Creatinine Clr Calc Pharmacy 89.5811; Globulin 4.2 g/dL (1.3-4.6); Glomerular Filtration Rate 160.2 mL/min (90-130); Glucose 99 mg/dL (65-115); Magnesium 1.7 mg/dL (1.7-2.3); Osmolality Calculated 282 mOsm/kg (285-295); Phosphorus 3.1 mg/dL (2.5-4.5); Sodium 136 mmol/L (136-145); Total Bilirubin 0.6 mg/dL (0.15-1.2); Total Protein 7.4 g/dL (6.6-8.7)
[2025-04-25 17:40] LABS: Estmated Average Glucose 148; Hemoglobin A1C 6.8 % (4.0-6.0)
--- NOTE | 2025-04-25 18:11 | PC.NURSE ---
glucose 157 via FS; not wanting to eat dinner at this time. did not administer PRN insulin
[2025-04-25 18:12] LABS: Glucose Point of Care 157 mg/dL (70-110)
--- NOTE | 2025-04-25 18:34 | PC.NURSE ---
report given to [facility] @[id number], no further questions.
== END 2025-04-25 18:47 | disposition short-term general hospital (02) | DRG 565 ==
LOC: ER 04:58 → ER IP 06:17 → ER 17:32 → ER IP 05-05 10:15
PROVIDERS: Admitting Provider Internal Medicine; Emergency Provider Student in an Organized Health Care Education/Training Program; PCP Family Medicine; Visit Provider Internal Medicine
DX: T87.44 Infection of amputation stump, left lower extremity (principal); I50.30 Unspecified diastolic (congestive) heart failure; L03.116 Cellulitis of left lower limb; J96.12 Chronic respiratory failure with hypercapnia; F17.210 Nicotine dependence, cigarettes, uncomplicated; Z85.118 Personal history of other malignant neoplasm of bronchus and lung; J44.9 Chronic obstructive pulmonary disease, unspecified; E78.5 Hyperlipidemia, unspecified; Y82.9 Unspecified medical devices associated with adverse incidents; Z89.512 Acquired absence of left leg below knee; R79.82 Elevated C-reactive protein (CRP); R70.0 Elevated erythrocyte sedimentation rate; E11.42 Type 2 diabetes mellitus with diabetic polyneuropathy; I11.0 Hypertensive heart disease with heart failure; M85.88 Other specified disorders of bone density and structure, other site; Z79.891 Long term (current) use of opiate analgesic; Z79.4 Long term (current) use of insulin; G89.29 Other chronic pain; K21.9 Gastro-esophageal reflux disease without esophagitis; F41.8 Other specified anxiety disorders; Z92.3 Personal history of irradiation; Z89.611 Acquired absence of right leg above knee; Z98.1 Arthrodesis status; M96.1 Postlaminectomy syndrome, not elsewhere classified; Z86.718 Personal history of other venous thrombosis and embolism
CPT/HCPCS: 36415; 36416; 51702; 73701; 80053; 82962; 83036; 83605; 83735; 84100; 85025; 85610; 85651; 85730; 86140; 87040; 96365; 96366; 96372; 96375; 96376; 99285; 99291; 99292; J1171; J1644; J3490; J7030; J9999

== ENCOUNTER → 2025-05-19 13:03 | Outpatient (BNVA) | payer MEDICARE, MEDICAID, SELFPAY | PROVIDERS: PCP Family Medicine; Visit Provider Thoracic Surgery (Cardiothoracic Vascular Surgery) | DX: I96 Gangrene, not elsewhere classified (principal); T87.81 Dehiscence of amputation stump; Y83.8 Other surgical procedures as the cause of abnormal reaction of the patient, or of later complication, without mention of misadventure at the time of the procedure; Z89.512 Acquired absence of left leg below knee; L89.152 Pressure ulcer of sacral region, stage 2 | CPT/HCPCS: 97597; 97598 ==

== ENCOUNTER → 2025-05-27 13:31 | Outpatient (BNVA) | payer MEDICARE, MEDICAID, SELFPAY | PROVIDERS: PCP Family Medicine; Visit Provider Thoracic Surgery (Cardiothoracic Vascular Surgery) | DX: I96 Gangrene, not elsewhere classified (principal); T87.81 Dehiscence of amputation stump; Y83.8 Other surgical procedures as the cause of abnormal reaction of the patient, or of later complication, without mention of misadventure at the time of the procedure; Z89.512 Acquired absence of left leg below knee; L89.152 Pressure ulcer of sacral region, stage 2 | CPT/HCPCS: 97597; 97598 ==

== ENCOUNTER → 2025-06-09 15:17 | Outpatient (BNVA) | payer MEDICARE, MEDICAID, SELFPAY | PROVIDERS: PCP Family Medicine; Visit Provider Thoracic Surgery (Cardiothoracic Vascular Surgery) | DX: I96 Gangrene, not elsewhere classified (principal); T87.81 Dehiscence of amputation stump; Y83.8 Other surgical procedures as the cause of abnormal reaction of the patient, or of later complication, without mention of misadventure at the time of the procedure; Z89.512 Acquired absence of left leg below knee; L89.152 Pressure ulcer of sacral region, stage 2 | CPT/HCPCS: 97597; 97598 ==

== ENCOUNTER → 2025-06-17 10:37 | Outpatient (BNVA) | payer MEDICARE, MEDICAID, SELFPAY | PROVIDERS: PCP Family Medicine; Visit Provider Thoracic Surgery (Cardiothoracic Vascular Surgery) | DX: I96 Gangrene, not elsewhere classified (principal); L89.152 Pressure ulcer of sacral region, stage 2; T87.81 Dehiscence of amputation stump; Y83.8 Other surgical procedures as the cause of abnormal reaction of the patient, or of later complication, without mention of misadventure at the time of the procedure; Z89.511 Acquired absence of right leg below knee | CPT/HCPCS: 97597; 97598 ==

== ENCOUNTER 2025-10-29 12:42 | Inpatient (IN) | payer MEDICARE, MEDICAID, SELFPAY ==
[2025-10-29] VITALS (10 sets, daily range): BP systolic 124–176; BP diastolic 67–105; PULSE 69–82; RESP 14–18; TEMP 36.3–36.8; O2SAT 90–95
--- NOTE | 2025-10-29 12:45 | XR_ITS ---
WS: [id number] XR chest 1V portable [id number] REASON FOR EXAM: Weakness FINDINGS: The chest is significantly rotated. As best as can be ascertained the chest is stable compared to presumed baseline examination of 12/17/2023. Mild cardiomegaly and central pulmonary venous congestion. No acute pulmonary parenchymal or pleural abnormality. XR/XR chest 1V portable [id number] IMPRESSION: Cardiomegaly with pulmonary venous hypertension. No acute pulmonary parenchymal or pleural abnormality.
--- NOTE | 2025-10-29 12:54 | W.ED.WOUNDLC ---
HPI - Wound/Laceration General: Chief Complaint: Wound/Laceration Stated Complaint: decreased LOC - leg infection Time Seen by Provider: 10/29/25 12:50 History of Present Illness: 64-year-old female with a history of type 2 diabetes, left BKA, right AKA, diabetic peripheral neuropathy, PE, chronic hypercapnic respiratory failure, COPD, chronic hypoxemic respiratory failure, diastolic CHF who presents emergency room with somnolence and concern for worsening cellulitis of her left BKA. Upon arrival here she is somnolent but does arouse. No focal motor deficits and does not really seem confused when she wakes up. In clinic today they report that she has some green drainage from her left stump. They also reports she was quite somnolent Related Data Home Medications ?Medication ?Instructions ?Recorded ?Confirmed atenolol 50 mg tablet 50 mg PO BID 04/25/25 10/29/25 fluticasone propionate 50 1 spray intranasal DAILY PRN nasal 04/25/25 10/29/25 mcg/actuation nasal congestion spray,suspension (Flonase Allergy Relief) furosemide 40 mg tablet 40 mg PO DAILY PRN Edema 04/25/25 10/29/25 gabapentin 300 mg capsule 300 mg PO TID 04/25/25 10/29/25 ketoconazole 2 % shampoo 1 applic topical .[id number] 04/25/25 10/29/25 lidocaine-prilocaine 2.5 %-2.5 % 1 applic topical BID 10/29/25 10/29/25 topical cream losartan 100 mg tablet 100 mg PO DAILY 10/29/25 10/29/25 metformin 500 mg tablet,extended 500 mg PO BID 10/29/25 10/29/25 release 24 hr methadone 40 mg soluble tablet 10 mg PO Q6H 10/29/25 10/29/25 nystatin 100,000 unit/gram topical 1 applic topical BID 10/29/25 10/29/25 powder potassium chloride 20 mEq 20 meq PO BID 10/29/25 10/29/25 tablet,extended release prochlorperazine maleate 10 mg 10 mg PO BID PRN Nausea And 10/29/25 10/29/25 tablet Vomiting tizanidine 4 mg tablet 4 mg PO Q8H PRN Muscle Spasticity 10/29/25 10/29/25 Previous Rx's ?Medication ?Instructions ?Recorded mecobalamin (vitamin B12) 1,000 1,000 mcg PO DAILY #90 tabs 09/04/24 mcg chewable tablet fenofibrate nanocrystallized 145 145 mg PO DAILY #90 tabs 11/03/24 mg tablet pantoprazole 40 mg tablet,delayed 40 mg PO DAILY #90 tabs 03/11/25 release diazepam 5 mg tablet 5 mg PO DAILY PRN anxiety 30 days 09/13/25 #10 tabs Allergies Allergy/AdvReac Type Severity Reaction Status Date / Time nalbuphine Allergy Unknown sick to Verified 10/29/25 10:50 stomach adhesive tape Allergy rash Verified 10/29/25 10:50 amitriptyline Allergy Unknown Verified 10/29/25 10:50 morphine Allergy ADR-Vomitin Verified 10/29/25 10:50 g nitrofurantoin (From Allergy ADR-Vomitin Verified 10/29/25 10:50 Macrobid) g Review of Systems Narrative: Constitutional symptoms: Negative except as documented in HPI. Skin symptoms: Negative except as documented in HPI. Eye symptoms: Negative except as documented in HPI. ENMT symptoms: Negative except as documented in HPI. Respiratory symptoms: Negative except as documented in HPI. Cardiovascular symptoms: Negative except as documented in HPI. Gastrointestinal symptoms: Negative except as documented in HPI. Genitourinary symptoms: Negative except as documented in HPI. Musculoskeletal symptoms: Negative except as documented in HPI. Neurologic symptoms: Negative except as documented in HPI. Psychiatric symptoms: Negative except as documented in HPI. Endocrine symptoms: Negative except as documented in HPI. PFS ED PFSH: Medical History (Updated 10/29/25 @ 16:40 by Sweetie Kern MD) Chronic pain Left below-knee amputee GERD without esophagitis Unable to ambulate Essential hypertension Depression with anxiety Diabetes mellitus, type II Hx of malignant neoplasm of lung hx of lung cancer L upper lobe txed w/ radiation only at [place] Amputation of left lower extremity below knee Right above-knee amputee Leg swelling Wound dehiscence Diabetic peripheral neuropathy associated with type 2 diabetes mellitus Postoperative anemia Pulmonary embolism Chronic anxiety Chronic hypercapnic respiratory failure Noncompliance Uses wheelchair COPD (chronic obstructive pulmonary disease) Degenerative joint disease of left knee Closed fracture of left distal femur Closed femur fracture Cellulitis Diabetic neuropathy associated with type 2 diabetes mellitus Diastolic CHF Substance abuse History of DVT of lower extremity post-operative Hyperlipidemia History of cardioversion history of SVT vs for other arrhythmia 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 Torticollis, acquired Has had good results with Botox in the past Lumbar radiculopathy Cervical post-laminectomy syndrome Surgical History History of left lower extremity amputation below the knee Status post above-knee amputation of right lower extremity Hx of neck surgery x 2, posterior laminectomy and cervical fusion with hardware in place, limited ROM neck at baseline Hx of total knee replacement (~2010) Right History of arthroplasty of left knee (~1976) History of partial hysterectomy ovaries remaining; hyst done for bleeding, no cancer Hx of dilation and curettage Hx of tubal ligation Hx of appendectomy Family History Family/Other Hypertension Depression Anxiety Diabetes Father Aneurysm Mother Hypertension Brother Diabetes Sister Diabetes Social History Smoking and tobacco/nicotine status: current every day tobacco/nicotine user cigarettes Alcohol intake: never Substance/Drug Use: current Substance/Drug use frequency: few times a month Other substance/drug use details: has used meth and marijuana; last meth use early Aug 11 Additional social history: unknown if patient continues to smoke, documented to smoke previously Household members: none Marital status: Life Partner Marital status details: but life partner X 23yrs--he is now in [facility]--has charges Number of children: 2 Highest education level completed: Associate Degree: Occupational, Technical, Vocational Program Education level details: nursing school, cosmetology school Current occupational status: disabled Female Reproductive History: Spontaneous abortions: No Physical Exam Narrative: EXAM NARRATIVE: General: Alert, no acute distress. Skin: Warm, dry. Head: Normocephalic, atraumatic. Neck: Supple, trachea midline. Eye: Extraocular movements are intact. Ears, nose, mouth and throat: mucosa moist. Cardiovascular: Regular, Normal peripheral perfusion. Respiratory: Lungs are clear to auscultation, respirations are non-labored, breath sounds are equal, Symmetrical chest wall expansion. Gastrointestinal: Soft, Nontender, Non distended Musculoskeletal: Right AKA. Left BKA. There is some distal erythema. I do not see any openings or drainage. Neurological: Alert and oriented, No focal neurological deficit observed. Psychiatric: Cooperative, appropriate mood & affect. Course Vital Signs: Vital signs: Vital Signs Temperature 97.6 F 10/29/25 12:43 Pulse Rate 82 10/29/25 16:20 Respiratory Rate 16 10/29/25 16:00 Blood Pressure 131/79 10/29/25 16:20 Pulse Oximetry 92 10/29/25 16:20 Oxygen Delivery Me thod Nasal Cannula 10/29/25 16:00 Oxygen Flow Rate 2 10/29/25 16:00 MDM - Wound/Laceration Medical Decision Making Medical decision making Patient's reason for coming to the emergency room: Somnolence, possible leg infection Social determinants: Patient is disabled I reviewed the patient's medical record. 64-year-old female with a history of type 2 diabetes, left BKA, right AKA, diabetic peripheral neuropathy, PE, chronic hypercapnic respiratory failure, COPD, chronic hypoxemic respiratory failure, diastolic CHF. In clinic today they report that she has some green drainage from her left stump. I reviewed the patient's current home meds OUTREACH SPECIALIST shows regular diazepam. Also methadone is listed in her medication list Alternate historians: None Differential diagnosis including but not limited to and based on the above HPI, review of systems and physical exam: In this patient with altered mental status: Stroke. Hypoglycemia. Metabolic encephalopathy. Infections such as pneumonia, urinary tract infection, Covid-19, Influenza. Electrolyte abnormalities such as hypernatremia. Renal failure / uremia. Hepatic encephalopathy. Hypoxemia. Hypercapnic respiratory failure. Psychosis. Drug or alcohol intoxication. Medication overdose. Orders placed to evaluate differential diagnosis based on the above differential, HPI and physical exam Lab Review: Laboratory results were reviewed and interpreted by myself the emergency room physician. No leukocytosis. No anemia. No renal failure. Lactic acid is not elevated. Urinalysis is positive for infection. Chest x-ray: Cardiomegaly with pulmonary venous hypertension. No acute process. This was reviewed and interpreted by myself the emergency room physician. I also reviewed the radiology report. X-ray of the left BKA: Old femur fracture. Soft tissue changes. No evidence of acute osteomyelitis. This was reviewed and interpreted by myself the emergency room physician. I also reviewed the radiology report. CT of the head: Senescent changes. No acute process. This was reviewed and interpreted by myself the emergency room physician. I also reviewed the radiology report. CT of the left BKA: Nonspecific subcutaneous edema or cellulitis involving the knee and amputation stump. No evidence of gas producing infection. No necrotizing fasciitis or identified abscess. This was reviewed and interpreted by myself the emergency room physician. I also reviewed the radiology report. Assessment of risk: Level of risk: Patient is a very high risk patient. Multiple comorbidities. Hospitalization considerations: Patient is being admitted. She remains very somnolent. Reexamination: Patient remains extremely somnolent. She will wake up at times. She is complaining of some back pain and the hospitalist examine her and discovered a decubitus ulcer. Consultation: I spoke with Dr. Pineda with the hospitalist service who agrees to admission. Consultation: I spoke with Dr. Decker general surgeon who will evaluate the decubitus ulcer Assessment and plan: Encephalopathy since Somnolence UTI Decubitus ulcer Cellulitis of the left BKA ?Patient appears very somnolent but does not have any leukocytosis or lactic acidosis so I do not think this is sepsis at this point but might be early so limited fluids were given and broad-spectrum antibiotics -1 L normal saline bolus. -Broad-spectrum antibiotics were administered. -Sepsis quality measures. -Lactic acid with a reflex was ordered. -Blood cultures were ordered. -I discussed the patient with the hospitalist on-call who is admitting the patient. - Discussed findings and plan with patient. Answered any questions. - All laboratory values were reviewed and interpreted personally by myself, the ER physician - All imaging was reviewed and interpreted personally by myself, the ER physician. - Evaluation and treatment of this problem were appropriate in the emergency setting Lab Data 10/29/25 13:04 10/29/25 13:04 Radiology Impressions Chest X-Ray 10/29/25 12:45 IMPRESSION: Cardiomegaly with pulmonary venous hypertension. No acute pulmonary parenchymal or pleural abnormality. Tibia/Fibula X-Ray 10/29/25 14:19 IMPRESSION: Old femur fracture with internal fixation and severe osteoarthritis in the knee joint. Soft tissue changes as above which presumably represent pseudocapsule and fat. No findings of acute osteomyelitis are identified. There are changes in the remnant tibial diaphysis that could represent chronic osteomyelitis. Head CT 10/29/25 14:58 IMPRESSION: 1. No acute intracranial head CT findings identified. 2. Atrophy/involutional changes of aging. 3. Question history of thyroid ophthalmopathy. 4. Postsurgical craniocervical findings with hardware again seen. Lower Extremity CT 10/29/25 14:58 IMPRESSION: Nonspecific subcutaneous edema or cellulitis involving the knee and amputation stump. No evidence of gas producing infection, necrotizing fasciitis or definite identified abscess. Laboratory Results WBC 8.08 10^3/uL (3.29-11.43) 10/29/25 13:04 RBC 4.50 10^6/uL (3.85-5.65) 10/29/25 13:04 Hgb 13.00 g/dL (11.27-16.99) 10/29/25 13:04 Hct 42.5 % (36-47) 10/29/25 13:04 MCV 94.4 fl (85-98) 10/29/25 13:04 MCH 28.9 pg (27-33) 10/29/25 13:04 MCHC 30.6 g/dL (30-55) 10/29/25 13:04 RDW 14.6 % (12.1-15.1) 10/29/25 13:04 Plt Count 317 10^3/cmm (157-399) 10/29/25 13:04 MPV 9.9 fL (7.4-10.4) 10/29/25 13:04 Neut % (Auto) 61.6 % 10/29/25 13:04 Lymph % (Auto) 22.6 % 10/29/25 13:04 [place] % (Auto) 10.8 % 10/29/25 13:04 Eos % (Auto) 4.2 % 10/29/25 13:04 Baso % (Auto) 0.6 % 10/29/25 13:04 Neut # (Auto) 4.97 10^3/uL (1.8-7.7) 10/29/25 13:04 Lymph # (Auto) 1.8 10^3/uL (0.8-4.8) 10/29/25 13:04 [place] # (Auto) 0.9 10^3/uL (0.2-0.9) 10/29/25 13:04 Eos # (Auto) 0.3 10^3/uL (0.0-0.8) 10/29/25 13:04 Baso # (Auto) 0.1 10^3/uL (0.0-0.1) 10/29/25 13:04 Nucleated RBC % (auto) 0 % 10/29/25 13:04 Nucleated RBCs # 0.0 /100WBC 10/29/25 13:04 ESR 50 mm/hr (0-15) H 10/29/25 13:04 Specimen Type Arterial 10/29/25 13:04 Sample Site Radial, left 10/29/25 13:04 ABG pH 7.35 (7.35-7.45) 10/29/25 13:04 ABG pCO2 53.5 mmHg (35-45) H 10/29/25 13:04 ABG pO2 70.8 mmHg (80.0-100.0) L 10/29/25 13:04 ABG PO2/FiO2 Ratio 272 10/29/25 13:04 ABG HCO3 29.4 mmol/L (22-26) H 10/29/25 13:04 ABG O2 Saturation 93.0 10/29/25 13:04 ABG Base Excess 2.7 mmol/L (-2.0-2.0) H 10/29/25 13:04 Abdoulaye Test Pos 10/29/25 13:04 A-a O2 Gradient 6.4 mmHg (5-10) 10/29/25 13:04 Hematocrit 38.6 % (37-47) 10/29/25 13:04 Hgb O2 Saturation 90.4 % (95-100) L 10/29/25 13:04 Carboxyhemoglobin 1.7 %THgb (0.4-20.1) 10/29/25 13:04 Methemoglobin 1.1 % (0.4-1.5) 10/29/25 13:04 Total Hemoglobin 12.6 g/dL (12-16) 10/29/25 13:04 Sodium 141.0 mmol/L (131-143) 10/29/25 13:04 Potassium 4.1 mmol/L (3.5-5.0) 10/29/25 13:04 Glucose 114.0 mg/dL (70-115) 10/29/25 13:04 Ionized Calcium 1.2 mmol/L (1.1-1.4) 10/29/25 13:04 O2 Delivery Device Nc 10/29/25 13:04 O2 Liters/Min 1.5 % 10/29/25 13:04 FiO2 26.0 % 10/29/25 13:04 Pest Locator ID glc 10/29/25 13:04 Sodium 139 mmol/L (136-145) 10/29/25 13:04 Potassium 4.4 mmol/L (3.5-5.1) 10/29/25 13:04 Chloride 99 mmol/L (98-107) 10/29/25 13:04 Carbon Dioxide 30 mmol/L (22-29) H 10/29/25 13:04 Anion Gap 14.4 (5-19) 10/29/25 13:04 BUN 22 mg/dL (8-23) 10/29/25 13:04 Creatinine 0.5 mg/dL (0.5-0.9) 10/29/25 13:04 GFR Calculation 123.8 mL/min (90-130) 10/29/25 13:04 Glucose 116 mg/dL (65-115) H 10/29/25 13:04 Calculated Osmolality 292 mOsm/kg (285-295) 10/29/25 13:04 Lactic Acid 1.4 mmol/L (0.5-2.2) 10/29/25 13:04 Calcium 9.7 mg/dL (8.5-10.5) 10/29/25 13:04 Total Bilirubin 0.3 mg/dL (0.15-1.2) 10/29/25 13:04 AST 14 U/L (0-32) 10/29/25 13:04 ALT 10 U/L (0-33) 10/29/25 13:04 Alkaline Phosphatase 95 U/L (35-105) 10/29/25 13:04 C-Reactive Protein 13.1 mg/L (0.0-4.9) H 10/29/25 13:04 Total Protein 7.8 g/dL (6.6-8.7) 10/29/25 13:04 Albumin 4.1 g/dL (3.5-5.2) 10/29/25 13:04 Globulin 3.7 g/dL (1.3-4.6) 10/29/25 13:04 Procalcitonin 0.10 ng/mL (0-0.5) 10/29/25 13:04 Urine Color Yellow (Yellow) 10/29/25 14:10 Urine Appearance Turbid (CLEAR) A 10/29/25 14:10 Urine pH 5.5 (5-7) 10/29/25 14:10 Ur Specific [place] 1.021 (1.005-1.030) 10/29/25 14:10 Urine Protein Trace (Negative) A 10/29/25 14:10 Urine Glucose (UA) Negative (Normal) 10/29/25 14:10 Urine Ketones Negative (Negative) 10/29/25 14:10 Urine Blood 1+ (Negative) A 10/29/25 14:10 Urine Nitrate Negative (Negative) 10/29/25 14:10 Urine Bilirubin Negative (Negative) 10/29/25 14:10 Urine Urobilinogen 1.0 mg/dL (Negative) 10/29/25 14:10 Ur Leukocyte Esterase 3+ (Negative) A 10/29/25 14:10 Urine RBC 3-5 /hpf (0-2) 10/29/25 14:10 Urine WBC >100 /hpf (0-5) H 10/29/25 14:10 Ur Squamous Epith Cells 21-50 /hpf (0-5) H 10/29/25 14:10 Amorphous Sediment Not Reportable 10/29/25 14:10 Urine Bacteria 4+ /hpf (NONE) H 10/29/25 14:10 Hyaline Casts 6.67 /lpf 10/29/25 14:10 Urine Opiates Screen Negative ng/mL (Negative) 10/29/25 14:10 Ur Barbiturates Screen Negative ng/mL (Negative) 10/29/25 14:10 Ur Phencyclidine Scrn Negative ng/mL (Negative) 10/29/25 14:10 Ur Amphetamines Screen Positive ng/mL (Negative) H 10/29/25 14:10 U Benzodiazepines Scrn Positive ng/mL (Negative) H 10/29/25 14:10 Urine Cocaine Screen Negative ng/mL (Negative) 10/29/25 14:10 U Marijuana (THC) Screen Negative ng/mL (Negative) 10/29/25 14:10 All radiology interpretation(s) finalized by discharge Discharge Plan Discharge Patient Disposition: Admitted As Inpatient Admit Provider: Eduardo Pineda Clinical Impression: Decubitus ulcer, Somnolence, Urinary tract infection Condition: Stable Coding Level of Care Code ED Injection Molding Machine Offbearer for Trent Crews
[2025-10-29 13:13] LABS: ABG PCO2 53.5 mmHg (35-45); ABG PH Result 7.35 (7.35-7.45); Alveolar-Arterial Oxygen Gradi 6.4 mmHg (5-10); Arterial Blood Gas Hematocrit 38.6 % (37-47); Blood Gas Allen Test Pos; Blood Gas LPM 1.5 %; Blood Gas Operator Identificat glc; Blood Gas Sample Site Radial, left; Blood Gas Sample Type Arterial; Carboxyhemoglobin 1.7 %THgb (0.4-20.1); Glucose Level-ABG 114.0 mg/dL (70-115); HCO3 ABG 29.4 mmol/L (22-26); Ionized Calcium Level - ABG 1.2 mmol/L (1.1-1.4); Methemoglobin 1.1 % (0.4-1.5); Oxygen Saturation ABG 93.0; PO2 ABG 70.8 mmHg (80.0-100.0); PO2 FiO2 Ratio Arterial Blood 272; Potassium Level - ABG 4.1 mmol/L (3.5-5.0); Sodium Level - ABG 141.0 mmol/L (131-143)
[2025-10-29 13:16] LABS: Hematocrit 42.5 % (36-47); Hemoglobin 13.00 g/dL (11.27-16.99); Mean Corpuscular HGB Conc 30.6 g/dL (30-55); Mean Corpuscular Hemoglobin 28.9 pg (27-33); Mean Corpuscular Volume 94.4 fl (85-98); Nucleated Red Blood Cells % 0 %; Platelet Count 317 10^3/cmm (157-399); Red Blood Count 4.50 10^6/uL (3.85-5.65); White Blood Count 8.08 10^3/uL (3.29-11.43)
[2025-10-29 13:35] LABS: Lactic Sepsis W/Reflex 1.4 mmol/L (0.5-2.2)
[2025-10-29 13:36] LABS: Alanine Aminotransferase 10 U/L (0-33); Albumin Level 4.1 g/dL (3.5-5.2); Alkaline Phosphatase 95 U/L (35-105); Anion Gap 14.4 (5-19); Aspartate Amino Transferase 14 U/L (0-32); Blood Urea Nitrogen 22 mg/dL (8-23); Calcium 9.7 mg/dL (8.5-10.5); Carbon Dioxide 30 mmol/L (22-29); Chloride 99 mmol/L (98-107); Globulin 3.7 g/dL (1.3-4.6); Glucose 116 mg/dL (65-115); Osmolality Calculated 292 mOsm/kg (285-295); Potassium 4.4 mmol/L (3.5-5.1); Sodium 139 mmol/L (136-145); Total Protein 7.8 g/dL (6.6-8.7)
[2025-10-29 13:41] LABS: Procalcitonin 0.10 ng/mL (0-0.5)
--- NOTE | 2025-10-29 14:19 | XR_ITS ---
WS: [id number] XR tibia fibula LT 2V [id number] REASON FOR EXAM: possible osteo FINDINGS: Significantly decreased bone density. Long intramedullary femoral radha with old healed supracondylar fracture. Severe osteoarthritis in the knee joint. Amputation of the tibia and fibula. Large area of lucency in the central portion of the soft tissue stump as well as a more focal lucency around the distal end of the amputated tibia. No bone erosion or bone destruction is identified. There is old organized periosteal reaction along the remnant tibial diaphysis with a tunneled appearance of thickened cortex. The remnant fibula is unremarkable. XR/XR tibia fibula LT 2V [id number] IMPRESSION: Old femur fracture with internal fixation and severe osteoarthritis in the knee joint. Soft tissue changes as above which presumably represent pseudocapsule and fat. No findings of acute osteomyelitis are identified. There are changes in the rem nant tibial diaphysis that could represent chronic osteomyelitis.
[2025-10-29 14:23] LABS: Glucose Urine UA Negative (Normal); Nitrate Urine Negative (Negative); Specific Gravity, Urine 1.021 (1.005-1.030)
--- NOTE | 2025-10-29 14:30 | PC.NURSE ---
Pt O2 noted to have went down to 82% on room air, pt encouraged to wake up and take deep breaths, pt did not, pt placed on 2LNC and o2 is at 93%.
[2025-10-29 14:33] LABS: PCP Screen Urine Negative (Negative)
[2025-10-29 14:46] LABS: UA Slide Review UA Slide Review Perf
--- NOTE | 2025-10-29 14:58 | CTR_ITS ---
PROCEDURE INFORMATION: Exam: CT Head Without Contrast Exam date and time: 10/29/2025 3:31 PM Age: 65 years old Clinical indication: Altered mental status/memory loss; Prior surgery; Surgery date: 6+ months; Surgery type: Neck; Additional info: AMS TECHNIQUE: Imaging protocol: Computed tomography of the head without contrast. Radiation optimization: All CT scans at this facility use at least one of these dose optimization techniques: automated exposure control; mA and/or kV adjustment per patient size (includes targeted exams where dose is matched to clinical indication); or iterative reconstruction. COMPARISON: CT head wo con* [id number] 16/12/2023 16:30 RADIATION DOSE METRICS: Total DLP (mGy-cm): 901.79 FINDINGS: Limitations: Prominent streaking artifacts are seen secondary to metallic hardware over the occipital region particularly obscuring lower posterior fossa. Brain: Parenchymal structures of the brain appear to be in the range of normal. Beam hardening artifact obscures resolution through the posterior fossa structures. No hemorrhage. Unremarkable white matter. No mass effect. Streaking artifact is seen over the right frontoparietal region extending past anatomic boundaries. Cerebral ventricles: Ventricles demonstrate normal size shape and configuration and are felt to be in proportion to the degree of widening of the sulci, sylvian fissures and basilar cisterns. Paranasal sinuses: Visualized sinuses are unremarkable. No fluid levels. Mastoid air cells: Visualized mastoid air cells are well aerated. Orbital cavities: Bilateral cataract surgery. Bilateral exophthalmos. Bones: Partially visualized at the edge of the [id number] are fusion/stabilization metallic artifacts spanning the occiput to upper C2-C3 region at which point there cut from view. No acute fracture. Soft tissues: Scattered punctate radiopacities are noted along forehead/scalp region. CT/CT head wo con* [id number] IMPRESSION: 1. No acute intracranial head CT findings identified. 2. Atrophy/involutional changes of aging. 3. Question history of thyroid ophthalmopathy. 4. Postsurgical craniocervical findings with hardware again seen.
--- NOTE | 2025-10-29 14:58 | CTR_ITS ---
PROCEDURE INFORMATION: Exam: CT Left Lower Extremity With Contrast, Leg Exam date and time: 10/29/2025 3:36 PM Age: 65 years old Clinical indication: Pain; Left; Prior Surgery; Surgery Date: 6+ months; Surgery Type: lt lower leg; Additional Info: possible infection bka TECHNIQUE: Imaging protocol: CT of the left lower extremity with intravenous contrast was performed. Exam focused on the lower leg. Radiation optimization: All CT scans at this facility use at least one of these dose optimization techniques: automated exposure control; mA and/or kV adjustment per patient size (includes targeted exams where dose is matched to clinical indication); or iterative reconstruction. Contrast material: OMNI 350; Contrast volume: 100 ml; Contrast route: INTRAVENOUS (IV); COMPARISON: 1[place] [id number] 04/28/2024 2:[address] lower leg LT wo con* [id number] 12/17/2023 1:26 PM RADIATION DOSE METRICS: Total DLP (mGy-cm): 351.98 FINDINGS: Bones/joints: Intramedullary radha and 2 distal fixation screws transfix an old impacted fracture of the distal femur. Severe disuse osteopenia is noted. No identified acute fracture. No evidence of abnormal periosteal reaction, osseous sclerosis or definite sinus tract. Soft tissues: There has been a total left BKA. Community Health Advisor image also shows a prior mid thigh amputation on the right. Significant atrophy and sarcopenia of the distal leg muscles. Mild to moderate subcutaneous fat stranding and skin thickening throughout the soft tissue stump. No evidence of gas producing infection. No focal fluid collections. No identified significant fluid within the deep intermuscular fascia. CT/CT lower leg LT w con [id number] IMPRESSION: Nonspecific subcutaneous edema or cellulitis involving the knee and amputation stump. No evidence of gas producing infection, necrotizing fasciitis or definite identified abscess.
[2025-10-29] MEDS: cefepime 2,000 mg SDV 2000 MG IVP (15:05)
[2025-10-29] MEDS: linezolid premix 600 MG/300 ML PREMIX 300 MG IV (15:06)
--- NOTE | 2025-10-29 15:19 | PC.PHAR ---
Unable to verify medications with pt. Verified with DENYS Munoz. Unable to verify methadone dosage due to [facility] closes at 2pm and after hours services are unavailable today [phone].
--- NOTE | 2025-10-29 15:31 | PC.NURSE ---
PT HAS UN-STAGEABLE COCCYX WOUND, OPEN WITH NON BLANCHABLE BLACK TISSUE NOTED.
--- NOTE | 2025-10-29 15:51 | PM.HP ---
Providers/Chief Complaint Primary Care Provider: Wilner Hdez DO Chief Complaint: decreased LOC - leg infection History of Present Illness Polina Snyder is a 65 year old female with a past medical history of left below the knee amputation, right [id number] amputation, GERD, hypertension, depression with anxiety, diabetes mellitus type 2, history of malignant neoplasm of lung, COPD, chronic pain on chronic pain management, diastolic heart failure, hyperlipidemia, history of substance use abuse who presented to the ER with complaints of worsening cellulitis of her left BKA and increasing fatigue. Patient was seen and treated in the ER by provider , who found the patient to be somnolent but could arouse with voice and touch. ER provider contacted general surgeon for consultation. When assessing patient she continued to be very somnolent, was able to adjust the patient and wake her up at which time she stated that she was having extreme pain in her buttocks area. With the assistance of ER nurse was able to roll the patient and find an unstageable wound to her coccyx. Patient also has continued erythema and tenderness to her left stump. Patient denies chest pain, shortness of breath, nausea, vomiting, diarrhea, abdominal pain, or syncope. Admitting labs WBC 8.08, hemoglobin 13, ESR 50, glucose 116, C-reactive protein 13.1. ABG with pH 7.35, pCO2 53.5, pO2 70.8, HCO3 29.4. CXR: With cardiomegaly, pulmonary venous hypertension, no acute pulmonary parenchymal or pleural abnormality noted. CT head pending results. Review of Systems General: Reports: 10 or more systems reviewed and unremarkable except in HPI and below Medications/Allergies Home Medications ?Medication ?Instructions ?Recorded ?Confirmed ?Last Taken ?Type mecobalamin (vitamin B12) 1,000 1,000 mcg PO DAILY #90 tabs 09/04/24 10/29/25 04/24/25 Rx mcg chewable tablet fenofibrate nanocrystallized 145 145 mg PO DAILY #90 tabs 11/03/24 10/29/25 04/24/25 Rx mg tablet pantoprazole 40 mg tablet,delayed 40 mg PO DAILY #90 tabs 03/11/25 10/29/25 04/24/25 Rx release atenolol 50 mg tablet 50 mg PO BID 04/25/25 10/29/25 04/24/25 History fluticasone propionate 50 1 spray intranasal DAILY PRN nasal 04/25/25 10/29/25 Unknown History mcg/actuation nasal congestion spray,suspension (Flonase Allergy Relief) furosemide 40 mg tablet 40 mg PO DAILY PRN Edema 04/25/25 10/29/25 Unknown History gabapentin 300 mg capsule 300 mg PO TID 04/25/25 10/29/25 04/24/25 History ketoconazole 2 % shampoo 1 applic topical .[id number] 04/25/25 10/29/25 Unknown History diazepam 5 mg tablet 5 mg PO DAILY PRN anxiety 30 days 09/13/25 10/29/25 Unknown Rx #10 tabs lidocaine-prilocaine 2.5 %-2.5 % 1 applic topical BID 10/29/25 10/29/25 Unknown History topical cream losartan 100 mg tablet 100 mg PO DAILY 10/29/25 10/29/25 Unknown History metformin 500 mg tablet,extended 500 mg PO BID 10/29/25 10/29/25 Unknown History release 24 hr methadone 40 mg soluble tablet 10 mg PO Q6H 10/29/25 10/29/25 Unknown History nystatin 100,000 unit/gram topical 1 applic topical BID 10/29/25 10/29/25 Unknown History powder potassium chloride 20 mEq 20 meq PO BID 10/29/25 10/29/25 Unknown History tablet,extended release prochlorperazine maleate 10 mg 10 mg PO BID PRN Nausea And 10/29/25 10/29/25 Unknown History tablet Vomiting tizanidine 4 mg tablet 4 mg PO Q8H PRN Muscle Spasticity 10/29/25 10/29/25 Unknown History Allergies Allergy/AdvReac Type Severity Reaction Status Date / Time nalbuphine Allergy Unknown sick to Verified 10/29/25 10:50 stomach adhesive tape Allergy rash Verified 10/29/25 10:50 amitriptyline Allergy Unknown Verified 10/29/25 10:50 morphine Allergy ADR-Vomitin Verified 10/29/25 10:50 g nitrofurantoin (From Allergy ADR-Vomitin Verified 10/29/25 10:50 Macrobid) g PFSH Acute PFSH: Medical History (Updated 10/29/25 @ 16:40 by Sweetie Kern MD) Chronic pain Left below-knee amputee GERD without esophagitis Unable to ambulate Essential hypertension Depression with anxiety Diabetes mellitus, type II Hx of malignant neoplasm of lung hx of lung cancer L upper lobe txed w/ radiation only at [facility] Amputation of left lower extremity below knee Right above-knee amputee Leg swelling Wound dehiscence Diabetic peripheral neuropathy associated with type 2 diabetes mellitus Postoperative anemia Pulmonary embolism Chronic anxiety Chronic hypercapnic respiratory failure Noncompliance Uses wheelchair COPD (chronic obstructive pulmonary disease) Degenerative joint disease of left knee Closed fracture of left distal femur Closed femur fracture Cellulitis Diabetic neuropathy associated with type 2 diabetes mellitus Diastolic CHF Substance abuse History of DVT of lower extremity post-operative Hyperlipidemia History of cardioversion history of SVT vs for other arrhythmia 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 Torticollis, acquired Has had good results with Botox in the past Lumbar radiculopathy Cervical post-laminectomy syndrome Surgical History History of left lower extremity amputation below the knee Status post above-knee amputation of right lower extremity Hx of neck surgery x 2, posterior laminectomy and cervical fusion with hardware in place, limited ROM neck at baseline Hx of total knee replacement (~2010) Right History of arthroplasty of left knee (~1976) History of partial hysterectomy ovaries remaining; hyst done for bleeding, no cancer Hx of dilation and curettage Hx of tubal ligation Hx of appendectomy Family History Family/Other Hypertension Depression Anxiety Diabetes Father Aneurysm Mother Hypertension Brother Diabetes Sister Diabetes Social History Smoking and tobacco/nicotine status: current every day tobacco/nicotine user cigarettes Alcohol intake: never Substance/Drug Use: current Substance/Drug use frequency: few times a month Other substance/drug use details: has used meth and marijuana; last meth use early Aug 11 Additional social history: unknown if patient continues to smoke, documented to smoke previously Household members: none Marital status: Life Partner Marital status details: but life partner X 23yrs--he is now in [place] [facility]--has charges Number of children: 2 Highest education level completed: Associate Degree: Occupational, Technical, Vocational Program Education level details: nursing school, cosmetology school Current occupational status: disabled Female Reproductive History: Spontaneous abortions: No Vitals/I&O/Wt Last Vital Signs Temp 97.6 F 10/29/25 12:43 Pulse 70 10/29/25 15:10 Resp 18 10/29/25 15:10 BP 124/74 10/29/25 15:10 Pulse Ox 92 10/29/25 15:10 O2 Del Method Nasal Cannula 10/29/25 15:10 O2 Flow Rate 2 10/29/25 15:10 Weight last 48 hrs Weight 78.925 kg Physical Exam Const: EXAM LIMITATIONS: altered mental status GENERAL APPEARANCE: disheveled ORIENTATION/CONSCIOUSNESS: Yes patient obtunded HENMT: COMMON NORMALS: normocephalic, Normal external nose present and moist oral mucous membranes OTHER: No teeth and no dentures in place Eye: PUPIL: Yes Pinpoint pupils Resp: COMMON NORMALS: normal respiratory effort, No retractions and clear to auscultation bilaterally Cardio: COMMON NORMALS: no JVD, S1 normal heart sound present and S2 normal heart sound present GI: COMMON NORMALS: Normal to inspection, nondistended, normoactive bowel sounds present Back/Pelvis: OTHER: Unstageable coccyx/sacral pressure ulcer with blackening to right side buttocks Extremity: OTHER: Left BKA with erythema and edema with no noticeable drainage or open sore, right AKA Neuro: SENSORIUM/ORIENTATION: Yes somnolent and Yes other (Able to arouse and answer most questions appropriately) Skin: NARRATIVE SKIN EXAM: Unstageable sacral pressure ulcer, left BKA stump with erythema and edema Data 10/29/25 13:04 10/29/25 13:04 Micro: Microbiology 10/29/25 13:05 Blood Culture - Preliminary Blood SPECIMEN COLLECTED 10/29/25 13:04 Blood Culture - Preliminary Blood SPECIMEN COLLECTED A&P Assessment and plan 1. Acute UTI: 2. Cellulitis: 3. Unstageable pressure ulcer of sacral region: 4. Hx of left BKA: 5. Anxiety: 6. Diabetes mellitus, type II: 7. GERD without esophagitis: 8. Unable to ambulate: 9. Essential hypertension: 10. Right above-knee amputee: Plan: Acute UTI, present on arrival - Pending Urine Culture - Continue IV antibiotics with Cefepime to cover UTI and Cellulitis -de-escalate as appropriate - May be contributing to AMS Acute metabolic encephalopathy - Fall precautions - Neurochecks every shift - Pending TSH Cellulitis, left BKA History of left BKA and right AKA Unstageable sacral ulcer - Patient has had MSSA and Pseudomonas in the past - Admitting WBC 8.08, ESR 50, CRP 13.1 - Given linezolid and cefepime in the ER - Pending blood cultures x 2 - Managed outpatient by wound care - Pending general surgical consultation and management with - Turn every 2 hour - Continue empiric antibiotic coverage with cefepime 1 g every 8 hour - Consider ID consultation if warranted Diabetes mellitus type 2 - Pending A1C - Holding home metformin - Medium dose sliding scale insulin, POC - Hypoglycemic protocols - Carb controlled diet Chronic Diastolic Heart Failure - Does not appear to be volume overloaded - Continue cardioprotective medications as previously prescribed with atenolol, furosemide with potassium supplementation, losartan, fenofibrate - Pending lipid panel COPD Hx of lung cancer - Continue supplemental oxygen - PRN DuoNeb GERD - Continue PPI Chronic pain management - Stated takes methadone, unable to verify dosing - Called methadone clinic, closed, after our services sent to [facility] with full mailbox - will call again in the AM Anxiety/depression - PDMP reviewed - Resume PRN Valium when no longer somnolent Essential hypertension - Admitting blood pressure 131/79 - Continue home medication atenolol 50 mg twice daily, losartan 100 mg p.o. daily - Monitor Topical candidiasis - Continue nystatin powder twice daily to abdominal folds DVT PPx: SQ Lovenox GI PPx: PPI CODE STATUS: Full code PDMP PDMP Reviewed: Last Reviewed 10/29/25 16:44 by Pamela Love, FREIGHT RATE ANALYST Attestations Medical Necessity Statement*: Patient is admitted inpatient requiring more than 2 midnight stay secondary to UTI, metabolic encephalopathy, cellulitis needing general surgical consultation and management of complex comorbidities. and High Time for a total of 80 minutes, includes reviewing past or interval history, examining/interviewing patient, placing orders, counseling patient/family/other support, updating patient/family/other support, discussing plan of care with staff, communicating with other healthcare providers, documenting encounter and coordinating care Diagnoses Acute UTI N39.0 Cellulitis L03.115 Unstageable pressure ulcer of sacral region L89.150 Hx of left BKA Z89.512 Anxiety F41.9 Diabetes mellitus, type II E11.9 GERD without esophagitis K21.9 Unable to ambulate R26.2 Essential hypertension I10 Right above-knee amputee Z89.611
[2025-10-29] MEDS: iohexol 350 mg/mL 500 mL Btl (per mL) IV (15:52)
--- NOTE | 2025-10-29 16:50 | PC.NURSE ---
Patient arrived to the floor from the ER. This nurse along with Brisa NAVA changed patient into a hospital gown and removed street clothes. This nurse found a bag of meth in patient's bra. Security was notified and disposed of the drug. Patient has methadone box on hand. This along with patients purse were locked in [facility].
[2025-10-29 19:12] LABS: Cholesterol 257 mg/dL (0-200); HDL Cholesterol 42 mg/dL (60-100); Triglycerides 310 mg/dL (0-150)
[2025-10-29 19:16] LABS: Estmated Average Glucose 151; Hemoglobin A1C 6.9 % (4.0-6.0)
[2025-10-29 20:14] LABS: Thyroid Stimulating Hormone 2.42 uIU/mL (0.27-4.20)
[2025-10-29] MEDS: cefepime 1,000 mg SDV 1000 MG IVP (21:20)
[2025-10-30] VITALS (7 sets, daily range): BP systolic 100–155; BP diastolic 56–90; PULSE 64–87; RESP 15–19; TEMP 36.4–37; O2SAT 90–96
[2025-10-30 04:52] LABS: Hematocrit 36.5 % (36-47); Hemoglobin 11.10 g/dL (11.27-16.99); Mean Corpuscular HGB Conc 30.4 g/dL (30-55); Mean Corpuscular Hemoglobin 29.1 pg (27-33); Mean Corpuscular Volume 95.8 fl (85-98); Nucleated Red Blood Cells % 0 %; Platelet Count 274 10^3/cmm (157-399); Red Blood Count 3.81 10^6/uL (3.85-5.65); White Blood Count 6.88 10^3/uL (3.29-11.43)
[2025-10-30] MEDS: cefepime 1,000 mg SDV 1000 MG IVP ×3 (05:17→21:13)
[2025-10-30 05:19] LABS: Alanine Aminotransferase 7 U/L (0-33); Albumin Level 3.4 g/dL (3.5-5.2); Alkaline Phosphatase 80 U/L (35-105); Anion Gap 11.3 (5-19); Aspartate Amino Transferase 15 U/L (0-32); Blood Urea Nitrogen 18 mg/dL (8-23); Calcium 8.9 mg/dL (8.5-10.5); Carbon Dioxide 28 mmol/L (22-29); Chloride 102 mmol/L (98-107); Globulin 3.6 g/dL (1.3-4.6); Glucose 94 mg/dL (65-115); Magnesium 1.8 mg/dL (1.7-2.3); Osmolality Calculated 286 mOsm/kg (285-295); Potassium 4.3 mmol/L (3.5-5.1); Sodium 137 mmol/L (136-145); Total Protein 7.0 g/dL (6.6-8.7)
--- NOTE | 2025-10-30 07:37 | P.PN_ITS ---
Subjective 2 Subjective: Patient is a 65-year-old female seen and examined at bedside on hospital rounds today. Patient sitting up in bed more alert and interactive this morning. Patient is concern for withdrawal if she does not get her methadone she says that she takes this typically before 9:00 in the morning. Currently awaiting methadone card for confirmation of dosing, unable to get a hold of the methadone clinic on the weekend. Patient continues to have complaints of pain in her coccyx and her left BKA. Patient denies new or worsening symptoms this morning. Vital signs remained stable, patient is on 2 L/min of oxygen supplementation, she states she is not on oxygen at home. Hemoglobin is 11.10, normal WBC 6.88. Will continue current interventions inpatient, patient is NPO in anticipation for consultation with general surgeon Dr. Condon. Vitals/I&O/Wt Last Vital Signs Temp 98.6 F 10/30/25 04:00 Pulse 64 10/30/25 04:00 Resp 17 10/30/25 04:00 BP 117/65 10/30/25 04:00 Pulse Ox 91 10/30/25 04:00 O2 Del Method Nasal Cannula 10/29/25 18:02 O2 Flow Rate 2 10/30/25 04:00 10/29/25 10/30/25 10/30/25 22:59 06:59 14:59 Intake Total 1540 / 1540 250 / 1790 Balance 1540 / 1540 250 / 1790 Weight last 48 hrs Weight 78.925 kg Weight 78.925 kg Weight 78.925 kg Physical Exam 2 Const: COMMON NORMALS: patient oriented x3 GENERAL APPEARANCE: cooperative and disheveled ORIENTATION/CONSCIOUSNESS: Yes patient obtunded HENMT: COMMON NORMALS: normocephalic, Normal external nose present and moist oral mucous membranes HEAD & SCALP: normocephalic NOSE: Normal external nose present OTHER: No teeth and no dentures in place Eye: COMMON NORMALS: Equal, round and reactive pupils present PUPIL: Yes Equal, round and reactive pupils present Neck/C-Spine: COMMON NORMALS: no JVD Resp: COMMON NORMALS: normal respiratory effort, No retractions and clear to auscultation bilaterally AUSCULTATION: clear to auscultation bilaterally Cardio: COMMON NORMALS: no JVD, S1 normal heart sound present and S2 normal heart sound present HEART SOUNDS: S1 normal heart sound present and S2 normal heart sound present GI: COMMON NORMALS: Normal to inspection, nondistended, normoactive bowel sounds present Back/Pelvis: OTHER: Unstageable coccyx/sacral pressure ulcer with blackening to right side buttocks Extremity: OTHER: Left BKA with erythema and edema with no noticeable drainage or open sore, right AKA Neuro: COMMON NORMALS: patient oriented x3 SENSORIUM/ORIENTATION: Yes somnolent and Yes other (Able to arouse and answer most questions appropriately) Skin: NARRATIVE SKIN EXAM: Unstageable sacral pressure ulcer, left BKA stump with erythema and edema Data 10/30/25 04:44 10/30/25 04:44 Micro: Microbiology 10/29/25 13:05 Blood Culture - Preliminary Blood SPECIMEN COLLECTED 10/29/25 13:04 Blood Culture - Preliminary Blood SPECIMEN COLLECTED A&P Assessment and plan 1. Acute UTI: 2. Cellulitis: 3. Unstageable pressure ulcer of sacral region: 4. Hx of left BKA: 5. Anxiety: 6. Diabetes mellitus, type II: 7. GERD without esophagitis: 8. Unable to ambulate: 9. Essential hypertension: 10. Right above-knee amputee: Plan: Acute UTI, present on arrival - Pending Urine Culture - Continue IV antibiotics with Cefepime to cover UTI and Cellulitis -de-escalate as appropriate - May be contributing to AMS Acute metabolic encephalopathy - Improving mentation - Fall precautions - Neurochecks every shift - TSH 2.42 Cellulitis, left BKA History of left BKA and right AKA Unstageable sacral ulcer - Patient has had MSSA and Pseudomonas in the past - Admitting WBC 8.08, ESR 50, CRP 13.1 - Given linezolid and cefepime in the ER - Pending blood cultures x 2 - Managed outpatient by wound care - Pending general surgical consultation and management with - Turn every 2 hour - Continue empiric antibiotic coverage with cefepime 1 g every 8 hour - Consider ID consultation if warranted Diabetes mellitus type 2 - A1C 6.9 - Holding home metformin - Medium dose sliding scale insulin, POC - Hypoglycemic protocols - Carb controlled diet Chronic Diastolic Heart Failure - Does not appear to be volume overloaded - Continue cardioprotective medications as previously prescribed with atenolol, furosemide with potassium supplementation, losartan, fenofibrate - Lipid panel: Triglycerides 310, cholesterol 257, LDL 153, HDL 42 COPD Hx of lung cancer - Continue supplemental oxygen - PRN DuoNeb GERD - Continue PPI Chronic pain management - Stated takes methadone, unable to verify dosing - Called methadone clinic, closed, after our services sent to [facility] with full mailbox - will call again in the AM Anxiety/depression - PDMP reviewed - Resume PRN Valium when no longer somnolent Essential hypertension - Admitting blood pressure 131/79, currently 100/66 - Continue home medication atenolol 50 mg twice daily, losartan 100 mg p.o. daily - hold for hypotension - Monitor Topical candidiasis - Continue nystatin powder twice daily to abdominal folds DVT PPx: SQ Lovenox GI PPx: PPI CODE STATUS: Full code PDMP PDMP Reviewed: Last Reviewed 10/29/25 16:44 by Pamela Love, OPERATIONS EXAMINER Attestations 2 Medical Necessity Statement*: Patient is admitted inpatient requiring more than 2 midnight stay secondary to UTI, metabolic encephalopathy, cellulitis needing general surgical consultation and management of complex comorbidities. Coding Level of Care Code 06302 Diagnoses Acute UTI N39.0 Cellulitis L03.115 Unstageable pressure ulcer of sacral region L89.150 Hx of left BKA Z89.512 Anxiety F41.9 Diabetes mellitus, type II E11.9 GERD without esophagitis K21.9 Unable to ambulate R26.2 Essential hypertension I10 Right above-knee amputee Z89.611
[2025-10-30] MEDS: ondansetron 2 mg/ML SDV 2 mL 4 MG IVP (12:42)
--- NOTE | 2025-10-30 14:55 | PM.CONSULT ---
Providers/Reason For Consult Consulting Physician/Specialty*: solange salinas MD general surgery Reason for Consult*: pressure sores decubitus area Requesting Physician: belen love NP hospitalist Attending Physician: Pamela Love NP Primary Care Provider: Wilner Hdez DO History of Present Illness History of Present Illness Polina Snyder is a 65 year old female with PVD and bilateral leg amputations. She states she has had cellulitis at stump sites before. She has not had a pressure bed sore before. She has sensation at skin and is not paraplegic. She uses a electric scooter a lot. She does not have low pressure air mattress at home. She has left stump cellulitis with some epidermolysis in central portion and a small 15 mm area of epidermolysis of left upper buttockand 5 mm puncture like wound that is superficial over sacrum with no evidenc of infection with no erythema/warmth/swelling/significant pain. She had CT of leg per ER provider with no abscess or osteomyelitis seen. She is type 2 diabetic. Review of Systems Narrative: Constitutional: denies rigors, singnificant weight gain, increased appetite HEENT: denies chronic cough, blurry vision, excessive tearing, eye pain, flashing lights, odynophagia, painful mastication, change in voice, change in taste, chronic sore throat, hypersalivation Heart: denies racing heart, palpitations, othropnea, PND Lungs: denies hemoptysis, pain with deep inspiration, chronic bronchitis GI: denies hematemesis, hematochezia, dysphagia, tenesmus : denies polyuria, hematuria, painful micturation Musculoskeletal: denies hemarthrosis, Muscle wasting Neuro: denies new onset syncope, dysesthesia, dysequilibrium, ptosis eyelid or face SKin: denies new onset hyperalgia, new rash new cyanosis Endocrine: denies new polyuria, polydipsia, polyphagia, heat intolerance, excessive energy Hem/Onc: denies new petechiae, swollen glands, new excessive epstaxis Psych: denies racing thought Medications/Allergies Home Medications ?Medication ?Instructions ?Recorded ?Confirmed ?Last Taken ?Type mecobalamin (vitamin B12) 1,000 1,000 mcg PO DAILY #90 tabs 09/04/24 10/29/25 04/24/25 Rx mcg chewable tablet fenofibrate nanocrystallized 145 145 mg PO DAILY #90 tabs 11/03/24 10/29/25 04/24/25 Rx mg tablet pantoprazole 40 mg tablet,delayed 40 mg PO DAILY #90 tabs 03/11/25 10/29/25 04/24/25 Rx release atenolol 50 mg tablet 50 mg PO BID 04/25/25 10/29/25 04/24/25 History fluticasone propionate 50 1 spray intranasal DAILY PRN nasal 04/25/25 10/29/25 Unknown History mcg/actuation nasal congestion spray,suspension (Flonase Allergy Relief) furosemide 40 mg tablet 40 mg PO DAILY PRN Edema 04/25/25 10/29/25 Unknown History gabapentin 300 mg capsule 300 mg PO TID 04/25/25 10/29/25 04/24/25 History ketoconazole 2 % shampoo 1 applic topical .[id number] 04/25/25 10/29/25 Unknown History diazepam 5 mg tablet 5 mg PO DAILY PRN anxiety 30 days 09/13/25 10/29/25 Unknown Rx #10 tabs lidocaine-prilocaine 2.5 %-2.5 % 1 applic topical BID 10/29/25 10/29/25 Unknown History topical cream losartan 100 mg tablet 100 mg PO DAILY 10/29/25 10/29/25 Unknown History metformin 500 mg tablet,extended 500 mg PO BID 10/29/25 10/29/25 Unknown History release 24 hr methadone 40 mg soluble tablet 10 mg PO Q6H 10/29/25 10/29/25 Unknown History nystatin 100,000 unit/gram topical 1 applic topical BID 10/29/25 10/29/25 Unknown History powder potassium chloride 20 mEq 20 meq PO BID 10/29/25 10/29/25 Unknown History tablet,extended release prochlorperazine maleate 10 mg 10 mg PO BID PRN Nausea And 10/29/25 10/29/25 Unknown History tablet Vomiting tizanidine 4 mg tablet 4 mg PO Q8H PRN Muscle Spasticity 10/29/25 10/29/25 Unknown History Allergies Allergy/AdvReac Type Severity Reaction Status Date / Time nalbuphine Allergy Unknown sick to Verified 10/29/25 10:50 stomach adhesive tape Allergy rash Verified 10/29/25 10:50 amitriptyline Allergy Unknown Verified 10/29/25 10:50 morphine Allergy ADR-Vomitin Verified 10/29/25 10:50 g nitrofurantoin (From Allergy ADR-Vomitin Verified 10/29/25 10:50 Macrobid) g Current Medications Generic Name Dose Route Start Last Admin Trade Name Freq PRN Reason Stop Dose Admin Acetaminophen 650 mg 10/29/25 16:31 10/29/25 22:00 Acetaminophen 325 Mg Tablet PO 650 mg Q6H PRN Administration Mild/Mod Pain Or Temp >/= 101 Atenolol 50 mg 10/29/25 17:00 10/30/25 09:29 Atenolol 50 Mg Tablet PO Not Given On Hold: 10/30/25 11:00 BID RANJIT Cefepime HCl 1,000 mg 10/29/25 22:00 10/30/25 13:34 Cefepime 1,000 Mg Sdv IVP 1,000 mg Q8H RANJIT Administration Protocol Docusate Sodium 100 mg 10/29/25 17:00 10/30/25 09:29 Docusate Sodium 100 Mg Capsule PO Not Given BID RANJIT Enoxaparin Sodium 40 mg 10/29/25 16:31 10/29/25 17:46 Enoxaparin 40 Mg/0.4 Ml Syringe SUBCUT 40 mg Q24H RANJIT Administration Fenofibrate 145 mg 10/30/25 05:00 10/30/25 09:29 Fenofibrate 145 Mg Tablet PO Not Given DAILY [facility] Insulin Human Lispro 0 unit 10/29/25 18:00 10/30/25 12:39 Insulin Lispro 100 Unit/1 Ml SUBCUT Not Given WM&BEDTIME [facility] Protocol Losartan Potassium 100 mg 10/30/25 05:00 10/30/25 09:30 Losartan 100 Mg Tablet PO Not Given DAILY [facility] Non-Formulary Medication 70 mg 10/30/25 11:45 10/30/25 11:32 Methadone PO 70 mg DAILY RANJIT Administration Nystatin 1 applic 10/29/25 17:00 10/30/25 05:20 Nystatin Powder 15 Gm Btl TOPICAL 1 applic BID RANJIT Administration Ondansetron HCl 4 mg 10/29/25 16:31 10/30/25 12:42 Ondansetron 2 Mg/Ml Sdv 2 Ml IVP 4 mg Q8H PRN Administration vomiting, or N/V if npo Pantoprazole Sodium 40 mg 10/30/25 05:00 10/30/25 09:[address] 40 Mg Tablet PO Not Given DAILY RANJIT Potassium Chloride 20 meq 10/29/25 17:00 10/30/25 09:30 Potassium Chloride Er 20 Meq Tablet PO Not Given On Hold: 10/30/25 11:01 BID RANJIT PFSH Acute PFSH: Medical History (Updated 10/29/25 @ 16:40 by Sweetie Kern MD) Chronic pain Left below-knee amputee GERD without esophagitis Unable to ambulate Essential hypertension Depression with anxiety Diabetes mellitus, type II Hx of malignant neoplasm of lung hx of lung cancer L upper lobe txed w/ radiation only at [place] Amputation of left lower extremity below knee Right above-knee amputee Leg swelling Wound dehiscence Diabetic peripheral neuropathy associated with type 2 diabetes mellitus Postoperative anemia Pulmonary embolism Chronic anxiety Chronic hypercapnic respiratory failure Noncompliance Uses wheelchair COPD (chronic obstructive pulmonary disease) Degenerative joint disease of left knee Closed fracture of left distal femur Closed femur fracture Cellulitis Diabetic neuropathy associated with type 2 diabetes mellitus Diastolic CHF Substance abuse History of DVT of lower extremity post-operative Hyperlipidemia History of cardioversion history of SVT vs for other arrhythmia 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 Torticollis, acquired Has had good results with Botox in the past Lumbar radiculopathy Cervical post-laminectomy syndrome Surgical History History of left lower extremity amputation below the knee Status post above-knee amputation of right lower extremity Hx of neck surgery x 2, posterior laminectomy and cervical fusion with hardware in place, limited ROM neck at baseline Hx of total knee replacement (~2010) Right History of arthroplasty of left knee (~1976) History of partial hysterectomy ovaries remaining; hyst done for bleeding, no cancer Hx of dilation and curettage Hx of tubal ligation Hx of appendectomy Family History Family/Other Hypertension Depression Anxiety Diabetes Father Aneurysm Mother Hypertension Brother Diabetes Sister Diabetes Social History Smoking and tobacco/nicotine status: current every day tobacco/nicotine user cigarettes Alcohol intake: never Substance/Drug Use: current Substance/Drug use frequency: few times a month Other substance/drug use details: has used meth and marijuana; last meth use early Aug 11 Additional social history: unknown if patient continues to smoke, documented to smoke previously Household members: none Marital status: Life Partner Marital status details: but life partner X 23yrs--he is now in fpc--has charges Number of children: 2 Highest education level completed: Associate Degree: Occupational, Technical, Vocational Program Education level details: nursing school, cosmetology school Current occupational status: disabled Female Reproductive History: Spontaneous abortions: No Vitals/I&O/Wt Last Vital Signs Temp 97.7 F 10/30/25 11:02 Pulse 87 10/30/25 11:02 Resp 15 10/30/25 11:02 BP 155/72 10/30/25 11:02 Pulse Ox 96 10/30/25 11:02 O2 Del Method Nasal Cannula 10/30/25 11:02 O2 Flow Rate 2 10/30/25 11:02 10/29/25 10/30/25 10/30/25 22:59 06:59 14:59 Intake Total 1540 / 1540 250 / 1790 120 / 120 Balance 1540 / 1540 250 / 1790 120 / 120 Weight last 48 hrs Weight 174 lb Weight 174 lb Weight 174 lb Physical Exam Narrative: Patient is a well developed well nourished and in NAD and is afebrile with vitals stable and is answering questions appropriately with a normal affect and is alert and oriented x3 HEENT: normocephalic with normal external ears and nonicteric, oral mucosa moist and dentition normal for age, trachea midline with no large masses visualized Heart: RRR, no gallops murmurs or rubs, normal PMI with no thrills Lungs: normal excursions, no loud audible wheezing, no subcutaneous emphysema Abdomen: nondistended, no gross hepatosplenomegaly, no masses, no rigidity or rebound, no loud borborygmi Neuro: nonfocal, CRUZ, grossly normal sensation Musculoskeletal: good muscle tone, no fasciculations Skin: pink warm and dry with no rashes or ecchymosis. She has left stump cellulitis with some epidermolysis in central portion with 12 live of erythema. A small 15 mm area of epidermolysis of left upper buttockand 5 mm puncture like wound that is superficial over sacrum with no evidenc of infection with no erythema/warmth/swelling/significant pain. Vascular: good radial pulses, no ulceration, less than 2 second capillary refill in hand : deferred Data 10/30/25 04:44 10/30/25 04:44 Micro: Microbiology 10/29/25 13:05 Blood Culture - Preliminary Blood NEGATIVE TO DATE 10/29/25 13:04 Blood Culture - Preliminary Blood NEGATIVE TO DATE A&P Assessment and plan 1. Cellulitis: 2. Unstageable pressure ulcer of sacral region: No necrotic tissue to debride at pressure sores. Can clean area with hibiclens soap then apply calmoseptine ointment to pressure sores then cover with mepilex dressing to protect area. Clean area with hibiclens soap and wipe off ointment every 3 days and re apply ointment and mepilex. Cellulitis treatment with antibiotics. Get CT scan on prn basis if concerned about deeper infection. Clean cellulitis daily with hibiclens soap and water and cover area with xeroform guaze and dry guaze with roller kerlix and either usman wrap or coban or both. Do not apply wraps too tightly. Call if you feel wound is worsening or get wound care to see patient on follow up. Get low pressure air mattress while in hospital. Place right stump area on soft pillows and elevated. PDMP PDMP Reviewed: Not Reviewed Coding Level of Care Code Acute Code for [facility] Diagnoses Cellulitis L03.90 Unstageable pressure ulcer of sacral region L89.150
[2025-10-31] VITALS (9 sets, daily range): BP systolic 107–154; BP diastolic 63–74; PULSE 80–88; RESP 16–18; TEMP 36.6–36.9; O2SAT 87–95
[2025-10-31 04:24] LABS: Hematocrit 36.7 % (36-47); Hemoglobin 10.80 g/dL (11.27-16.99); Mean Corpuscular HGB Conc 29.4 g/dL (30-55); Mean Corpuscular Hemoglobin 28.9 pg (27-33); Mean Corpuscular Volume 98.1 fl (85-98); Nucleated Red Blood Cells % 0 %; Platelet Count 189 10^3/cmm (157-399); Red Blood Count 3.74 10^6/uL (3.85-5.65); White Blood Count 5.12 10^3/uL (3.29-11.43)
[2025-10-31 04:51] LABS: Alanine Aminotransferase 8 U/L (0-33); Albumin Level 3.5 g/dL (3.5-5.2); Alkaline Phosphatase 80 U/L (35-105); Anion Gap 14.5 (5-19); Aspartate Amino Transferase 13 U/L (0-32); Blood Urea Nitrogen 17 mg/dL (8-23); Calcium 9.0 mg/dL (8.5-10.5); Carbon Dioxide 29 mmol/L (22-29); Chloride 103 mmol/L (98-107); Globulin 2.9 g/dL (1.3-4.6); Glucose 100 mg/dL (65-115); Magnesium 1.9 mg/dL (1.7-2.3); Osmolality Calculated 296 mOsm/kg (285-295); Potassium 4.5 mmol/L (3.5-5.1); Sodium 142 mmol/L (136-145); Total Protein 6.4 g/dL (6.6-8.7)
[2025-10-31] MEDS: cefepime 1,000 mg SDV 1000 MG IVP ×3 (06:09→20:37)
[2025-10-31] MEDS: LOSARTAN 100 MG TABLET PO (06:10)
--- NOTE | 2025-10-31 09:19 | P.PN_ITS ---
Subjective 2 Subjective: Patient is a very pleasant 65-year-old female seen and examined at bedside on hospital rounds today. Patient sitting up in bed stating that she would like to go home, discussed need for urine cultures and oxygen evaluation before discharging and patient stated that she was agreeable to staying 1 more day. Vital signs are stable, patient still requiring supplemental oxygen via nasal cannula to keep O2 sats greater than 88%. Hemoglobin 10.80, normal WBC 5.12, good kidney functions with creatinine 0.5 and BUN 17. Will continue current interventions with IV antibiotics, transition to oral at discharge if capable, and await home O2 evaluation. All questions and concerns addressed with the patient at bedside today. Vitals/I&O/Wt Last Vital Signs Temp 98.1 F 10/31/25 05:00 Pulse 88 10/31/25 07:48 Resp 18 10/31/25 07:48 BP 146/68 10/31/25 07:48 Pulse Ox 87 L 10/31/25 09:12 O2 Del Method Nasal Cannula 10/31/25 07:48 O2 Flow Rate 2 10/31/25 09:12 10/30/25 10/31/25 10/31/25 22:59 06:59 14:59 Intake Total 120 / 240 480 / 720 Balance 120 / 240 480 / 720 Weight last 48 hrs Weight 78.925 kg Weight 78.925 kg Weight 78.925 kg Weight 78.925 kg Physical Exam 2 Const: COMMON NORMALS: patient oriented x3 GENERAL APPEARANCE: cooperative and disheveled ORIENTATION/CONSCIOUSNESS: Yes patient obtunded HENMT: COMMON NORMALS: normocephalic, Normal external nose present and moist oral mucous membranes HEAD & SCALP: normocephalic NOSE: Normal external nose present OTHER: No teeth and no dentures in place Eye: COMMON NORMALS: Equal, round and reactive pupils present PUPIL: Yes Equal, round and reactive pupils present Neck/C-Spine: COMMON NORMALS: no JVD Resp: COMMON NORMALS: normal respiratory effort, No retractions and clear to auscultation bilaterally AUSCULTATION: clear to auscultation bilaterally Cardio: COMMON NORMALS: no JVD, S1 normal heart sound present and S2 normal heart sound present HEART SOUNDS: S1 normal heart sound present and S2 normal heart sound present GI: COMMON NORMALS: Normal to inspection, nondistended, normoactive bowel sounds present Back/Pelvis: OTHER: Unstageable coccyx/sacral pressure ulcer with blackening to right side buttocks Extremity: OTHER: Left BKA with erythema and edema with no noticeable drainage or open sore, right AKA Neuro: COMMON NORMALS: patient oriented x3 SENSORIUM/ORIENTATION: Yes somnolent and Yes other (Able to arouse and answer most questions appropriately) Skin: NARRATIVE SKIN EXAM: Unstageable sacral pressure ulcer, left BKA stump with erythema and edema Data 10/31/25 03:46 10/31/25 03:46 Micro: Microbiology 10/29/25 13:05 Blood Culture - Preliminary Blood NEGATIVE TO DATE 10/29/25 13:04 Blood Culture - Preliminary Blood NEGATIVE TO DATE A&P Assessment and plan 1. Acute UTI: 2. Cellulitis: 3. Unstageable pressure ulcer of sacral region: 4. Hx of left BKA: 5. Anxiety: 6. Diabetes mellitus, type II: 7. GERD without esophagitis: 8. Unable to ambulate: 9. Essential hypertension: 10. Right above-knee amputee: Plan: Acute UTI, present on arrival - Pending Urine Culture - Continue IV antibiotics with Cefepime to cover UTI and Cellulitis -de-escalate as appropriate - May be contributing to AMS Acute metabolic encephalopathy, resolved - Improving mentation - Fall precautions - Neurochecks every shift - TSH 2.42 Cellulitis, left BKA History of left BKA and right AKA Unstageable sacral ulcer - Patient has had MSSA and Pseudomonas in the past - Admitting WBC 8.08, ESR 50, CRP 13.1 - Given linezolid and cefepime in the ER - Pending blood cultures x 2 - Managed outpatient by wound care - Pending general surgical consultation and management with - Turn every 2 hour - Continue empiric antibiotic coverage with cefepime 1 g every 8 hour - Consider ID consultation if warranted Diabetes mellitus type 2 - A1C 6.9 - Holding home metformin - Medium dose sliding scale insulin, POC - Hypoglycemic protocols - Carb controlled diet Chronic Diastolic Heart Failure - Does not appear to be volume overloaded - Continue cardioprotective medications as previously prescribed with atenolol, furosemide with potassium supplementation, losartan, fenofibrate - Lipid panel: Triglycerides 310, cholesterol 257, LDL 153, HDL 42 - Outpatient f/u for continued close management of lipids COPD Hx of lung cancer - Continue supplemental oxygen - PRN DuoNeb GERD - Continue PPI Chronic pain management - Stated takes methadone, unable to verify dosing - Called methadone clinic, closed, after our services sent to voicemail with full mailbox - will call again in the AM Anxiety/depression - PDMP reviewed - Resume PRN Valium when no longer somnolent Essential hypertension - Admitting blood pressure 131/79, currently 100/66 - Continue home medication atenolol 50 mg twice daily, losartan 100 mg p.o. daily - hold for hypotension - Monitor Topical candidiasis - Continue nystatin powder twice daily to abdominal folds DVT PPx: SQ Lovenox GI PPx: PPI CODE STATUS: Full code PDMP PDMP Reviewed: Last Reviewed 10/29/25 16:44 by Pamela Love, [employer] Attestations 2 Medical Necessity Statement*: Patient is admitted inpatient requiring more than 2 midnight stay secondary to UTI, metabolic encephalopathy, cellulitis needing general surgical consultation and management of complex comorbidities. Coding Level of Care Code 67718 Diagnoses Acute UTI N39.0 Cellulitis L03.115 Unstageable pressure ulcer of sacral region L89.150 Hx of left BKA Z89.512 Anxiety F41.9 Diabetes mellitus, type II E11.9 GERD without esophagitis K21.9 Unable to ambulate R26.2 Essential hypertension I10 Right above-knee amputee Z89.611
--- NOTE | 2025-10-31 11:08 | PC.NURSE ---
patient was unable to stay awake to eat
[2025-11-01] VITALS: BP 156/86; PULSE 81; RESP 16; TEMP 36.7; O2SAT 95
--- NOTE | 2025-11-01 00:15 | PC.NURSE ---
complete Dressing change done on left stump. 11/01 at 0015,
[2025-11-01] MEDS: LOSARTAN 100 MG TABLET PO (04:49)
[2025-11-01 05:42] LABS: Hematocrit 37.8 % (36-47); Hemoglobin 11.60 g/dL (11.27-16.99); Mean Corpuscular HGB Conc 30.7 g/dL (30-55); Mean Corpuscular Hemoglobin 29.7 pg (27-33); Mean Corpuscular Volume 96.9 fl (85-98); Nucleated Red Blood Cells % 0 %; Platelet Count 273 10^3/cmm (157-399); Red Blood Count 3.90 10^6/uL (3.85-5.65); White Blood Count 5.15 10^3/uL (3.29-11.43)
[2025-11-01] MEDS: cefepime 1,000 mg SDV 1000 MG IVP (05:49)
[2025-11-01 06:00] VITALS: BP 178/84; PULSE 91; RESP 17; TEMP 36.5; O2SAT 95
[2025-11-01 06:02] LABS: Alanine Aminotransferase 9 U/L (0-33); Albumin Level 3.5 g/dL (3.5-5.2); Alkaline Phosphatase 79 U/L (35-105); Anion Gap 11.2 (5-19); Aspartate Amino Transferase 15 U/L (0-32); Blood Urea Nitrogen 13 mg/dL (8-23); Calcium 9.3 mg/dL (8.5-10.5); Carbon Dioxide 31 mmol/L (22-29); Chloride 102 mmol/L (98-107); Globulin 3.8 g/dL (1.3-4.6); Glucose 99 mg/dL (65-115); Magnesium 2.0 mg/dL (1.7-2.3); Osmolality Calculated 290 mOsm/kg (285-295); Potassium 4.2 mmol/L (3.5-5.1); Sodium 140 mmol/L (136-145); Total Protein 7.3 g/dL (6.6-8.7)
[2025-11-01 07:25] VITALS: BP 178/78; PULSE 100; RESP 18; TEMP 36.7; O2SAT 97
[2025-11-01 08:39] VITALS: RESP 18
--- NOTE | 2025-11-01 09:25 | P.DS_ITS ---
Discharge Providers Date of Admission: 10/29/25 16:06 Date of Discharge: November 01, 2025 Attending Provider at Admission: Eduardo Pineda MD Attending Provider at Discharge: Pamela Love NP Primary Care Provider: Wilner Hdez DO Diagnoses at Discharge Discharge Diagnosis 1. Acute UTI: 2. Unstageable pressure ulcer of sacral region: 3. Hx of left BKA: 4. Anxiety: 5. Type 2 diabetes mellitus with diabetic peripheral angiopathy without gangrene, without long-term current use of insulin: 6. GERD without esophagitis: 7. Unable to ambulate: 8. Essential hypertension: 9. Right above-knee amputee: Reason for Visit Reason for Visit: decreased LOC - leg infection Brief History: Admission: Polina Snyder is a 65 year old female with a past medical history of left below the knee amputation, right [id number]-ljdh amputation, GERD, hypertension, depression with anxiety, diabetes mellitus type 2, history of malignant neoplasm of lung, COPD, chronic pain on chronic pain management, diastolic heart failure, hyperlipidemia, history of substance use abuse who presented to the ER with complaints of worsening cellulitis of her left BKA and increasing fatigue. Patient was seen and treated in the ER by provider , who found the patient to be somnolent but could arouse with voice and touch. ER provider contacted general surgeon for consultation. When assessing patient she continued to be very somnolent, was able to adjust the patient and wake her up at which time she stated that she was having extreme pain in her buttocks area. With the assistance of ER nurse was able to roll the patient and find an unstageable wound to her coccyx. Patient also has continued erythema and tenderness to her left stump. Patient denies chest pain, shortness of breath, nausea, vomiting, diarrhea, abdominal pain, or syncope. Admitting labs WBC 8.08, hemoglobin 13, ESR 50, glucose 116, C-reactive protein 13.1. ABG with pH 7.35, pCO2 53.5, pO2 70.8, HCO3 29.4. CXR: With cardiomegaly, pulmonary venous hypertension, no acute pulmonary parenchymal or pleural abnormality noted. CT head pending results. Hospital Course Hospital Course Acute UTI, present on arrival - Pending Urine Culture, gram neg rods - Continue IV antibiotics with Cefepime to cover UTI and Cellulitis -de-escalate as appropriate - May be contributing to AMS Acute metabolic encephalopathy, resolved - Improving mentation - Fall precautions - Neurochecks every shift - TSH 2.42 Cellulitis, left BKA History of left BKA and right AKA Unstageable sacral ulcer - Patient has had MSSA and Pseudomonas in the past - Admitting WBC 8.08, ESR 50, CRP 13.1 - Given linezolid and cefepime in the ER - Pending blood cultures x 2 - Managed outpatient by wound care - Pending general surgical consultation and management with - Turn every 2 hour - Continue empiric antibiotic coverage with cefepime 1 g every 8 hour - Consider ID consultation if warranted Diabetes mellitus type 2 - A1C 6.9 - Holding home metformin - Medium dose sliding scale insulin, POC - Hypoglycemic protocols - Carb controlled diet Chronic Diastolic Heart Failure - Does not appear to be volume overloaded - Continue cardioprotective medications as previously prescribed with atenolol, furosemide with potassium supplementation, losartan, fenofibrate - Lipid panel: Triglycerides 310, cholesterol 257, LDL 153, HDL 42 - Outpatient f/u for continued close management of lipids COPD Hx of lung cancer - Continue supplemental oxygen - PRN DuoNeb GERD - Continue PPI Chronic pain management - Stated takes methadone, unable to verify dosing - Called methadone clinic, closed, after our services sent to voicemail with full mailbox - will call again in the AM Anxiety/depression - PDMP reviewed - Resume PRN Valium when no longer somnolent Essential hypertension - Admitting blood pressure 131/79, currently 100/66 - Continue home medication atenolol 50 mg twice daily, losartan 100 mg p.o. daily - hold for hypotension - Monitor Topical candidiasis - Continue nystatin powder twice daily to abdominal folds Wound care instructions per : Clean cellulitis daily with hibiclens soap and water and cover area with xeroform guaze and dry guaze with roller kerlix and either usman wrap or coban or both. Do not apply wraps too tightly. Discharge: Discharge is home in stable condition to continue oral antibiotic with Keflex at discharge. Patient is advised to follow-up with primary care provider in 1 to 2 days of discharge. Patient is to resume home medications as previously prescribed. Patient advised to complete and total cessation of any illicit substance use. Patient is also referred to outpatient wound care for continued outpatient management of left BKA and sacral pressure ulcer. All questions and concerns addressed with patient prior to discharge. Physical Exam Const: COMMON NORMALS: patient oriented x3 GENERAL APPEARANCE: cooperative ORIENTATION/CONSCIOUSNESS: Yes patient obtunded HENMT: COMMON NORMALS: normocephalic, Normal external nose present and moist oral mucous membranes HEAD & SCALP: normocephalic NOSE: Normal external nose present OTHER: No teeth and no dentures in place Eye: COMMON NORMALS: Equal, round and reactive pupils present PUPIL: Yes Equal, round and reactive pupils present Neck/C-Spine: COMMON NORMALS: no JVD Resp: COMMON NORMALS: normal respiratory effort, No retractions and clear to auscultation bilaterally AUSCULTATION: clear to auscultation bilaterally Cardio: COMMON NORMALS: no JVD, S1 normal heart sound present and S2 normal heart sound present HEART SOUNDS: S1 normal heart sound present and S2 normal heart sound present GI: COMMON NORMALS: Normal to inspection, nondistended, normoactive bowel sounds present Back/Pelvis: OTHER: Unstageable coccyx/sacral pressure ulcer with blackening to right side buttocks Extremity: OTHER: Left BKA with erythema and edema with no noticeable drainage or open sore, right AKA Neuro: COMMON NORMALS: patient oriented x3 SENSORIUM/ORIENTATION: Yes somnolent and Yes other (Able to arouse and answer most questions appropriately) Skin: NARRATIVE SKIN EXAM: Unstageable sacral pressure ulcer, left BKA stump with erythema and edema Urinary Catheter Management: Garber: Cath Placed During This Visit: yes Reason for Continuing Indwelling Catheter: Other Urinary Catheter Date of Insertion: 11/01/25 Urinary Catheter Time of Insertion: 05:51 Discharge Data Studies Completed and Pending Completed Studies During Hospitalization Category Date Time Status CT head wo con* [id number] Stat Cat Scan 10/29/25 14:[address] lower leg LT w con [id number] Stat Cat Scan 10/29/25 14:58 Completed XR chest 1V portable [id number] Stat Exams 10/29/25 12:45 Completed XR tibia fibula LT 2V [id number] Stat Exams 10/29/25 14:19 Completed Pending at discharge Category Date Time Status Blood Culture Stat Lab 10/29/25 13:05 Results Urine Culture Stat Lab 10/29/25 14:10 Results Radiology Impressions Chest X-Ray 10/29/25 12:45 IMPRESSION: Cardiomegaly with pulmonary venous hypertension. No acute pulmonary parenchymal or pleural abnormality. Tibia/Fibula X-Ray 10/29/25 14:19 IMPRESSION: Old femur fracture with internal fixation and severe osteoarthritis in the knee joint. Soft tissue changes as above which presumably represent pseudocapsule and fat. No findings of acute osteomyelitis are identified. There are changes in the remnant tibial diaphysis that could represent chronic osteomyelitis. Head CT 10/29/25 14:58 IMPRESSION: 1. No acute intracranial head CT findings identified. 2. Atrophy/involutional changes of aging. 3. Question history of thyroid ophthalmopathy. 4. Postsurgical craniocervical findings with hardware again seen. Lower Extremity CT 10/29/25 14:58 IMPRESSION: Nonspecific subcutaneous edema or cellulitis involving the knee and amputation stump. No evidence of gas producing infection, necrotizing fasciitis or definite identified abscess. Laboratory Results WBC 5.15 10^3/uL (3.29-11.43) 11/01/25 04:37 RBC 3.90 10^6/uL (3.85-5.65) 11/01/25 04:37 Hgb 11.60 g/dL (11.27-16.99) 11/01/25 04:37 Hct 37.8 % (36-47) 11/01/25 04:37 MCV 96.9 fl (85-98) 11/01/25 04:37 MCH 29.7 pg (27-33) 11/01/25 04:37 MCHC 30.7 g/dL (30-55) 11/01/25 04:37 RDW 14.6 % (12.1-15.1) 11/01/25 04:37 Plt Count 273 10^3/cmm (157-399) D 11/01/25 04:37 MPV 10.2 fL (7.4-10.4) 11/01/25 04:37 Neut % (Auto) 61.5 % 11/01/25 04:37 Lymph % (Auto) 21.0 % 11/01/25 04:37 [place] % (Auto) 11.3 % 11/01/25 04:37 Eos % (Auto) 5.4 % 11/01/25 04:37 Baso % (Auto) 0.6 % 11/01/25 04:37 Neut # (Auto) 3.17 10^3/uL (1.8-7.7) 11/01/25 04:37 Lymph # (Auto) 1.1 10^3/uL (0.8-4.8) 11/01/25 04:37 [place] # (Auto) 0.6 10^3/uL (0.2-0.9) 11/01/25 04:37 Eos # (Auto) 0.3 10^3/uL (0.0-0.8) 11/01/25 04:37 Baso # (Auto) 0.0 10^3/uL (0.0-0.1) 11/01/25 04:37 Nucleated RBC % (auto) 0 % 11/01/25 04:37 Nucleated RBCs # 0.0 /100WBC 11/01/25 04:37 ESR 50 mm/hr (0-15) H 10/29/25 13:04 Specimen Type Arterial 10/29/25 13:04 Sample Site Radial, left 10/29/25 13:04 ABG pH 7.35 (7.35-7.45) 10/29/25 13:04 ABG pCO2 53.5 mmHg (35-45) H 10/29/25 13:04 ABG pO2 70.8 mmHg (80.0-100.0) L 10/29/25 13:04 ABG PO2/FiO2 Ratio 272 10/29/25 13:04 ABG HCO3 29.4 mmol/L (22-26) H 10/29/25 13:04 ABG O2 Saturation 93.0 10/29/25 13:04 ABG Base Excess 2.7 mmol/L (-2.0-2.0) H 10/29/25 13:04 Abdoulaye Test Pos 10/29/25 13:04 A-a O2 Gradient 6.4 mmHg (5-10) 10/29/25 13:04 Hematocrit 38.6 % (37-47) 10/29/25 13:04 Hgb O2 Saturation 90.4 % (95-100) L 10/29/25 13:04 Carboxyhemoglobin 1.7 %THgb (0.4-20.1) 10/29/25 13:04 Methemoglobin 1.1 % (0.4-1.5) 10/29/25 13:04 Total Hemoglobin 12.6 g/dL (12-16) 10/29/25 13:04 Sodium 141.0 mmol/L (131-143) 10/29/25 13:04 Potassium 4.1 mmol/L (3.5-5.0) 10/29/25 13:04 Glucose 114.0 mg/dL (70-115) 10/29/25 13:04 Ionized Calcium 1.2 mmol/L (1.1-1.4) 10/29/25 13:04 O2 Delivery Device Nc 10/29/25 13:04 O2 Liters/Min 1.5 % 10/29/25 13:04 FiO2 26.0 % 10/29/25 13:04 Line Installer Repairer ID glc 10/29/25 13:04 Sodium 140 mmol/L (136-145) 11/01/25 04:37 Potassium 4.2 mmol/L (3.5-5.1) 11/01/25 04:37 Chloride 102 mmol/L (98-107) 11/01/25 04:37 Carbon Dioxide 31 mmol/L (22-29) H 11/01/25 04:37 Anion Gap 11.2 (5-19) 11/01/25 04:37 BUN 13 mg/dL (8-23) 11/01/25 04:37 Creatinine 0.4 mg/dL (0.5-0.9) L 11/01/25 04:37 GFR Calculation 160.2 mL/min (90-130) H 11/01/25 04:37 Glucose 99 mg/dL (65-115) 11/01/25 04:37 POC Glucose 149 mg/dL (70-110) H 11/01/25 06:50 Estimat Average Glucose 151 10/29/25 13:04 Hemoglobin A1c 6.9 % (4.0-6.0) H 10/29/25 13:04 Calculated Osmolality 290 mOsm/kg (285-295) 11/01/25 04:37 Lactic Acid 1.4 mmol/L (0.5-2.2) 10/29/25 13:04 Calcium 9.3 mg/dL (8.5-10.5) 11/01/25 04:37 Magnesium 2.0 mg/dL (1.7-2.3) 11/01/25 04:37 Total Bilirubin 0.3 mg/dL (0.15-1.2) 11/01/25 04:37 AST 15 U/L (0-32) 11/01/25 04:37 ALT 9 U/L (0-33) 11/01/25 04:37 Alkaline Phosphatase 79 U/L (35-105) 11/01/25 04:37 C-Reactive Protein 13.1 mg/L (0.0-4.9) H 10/29/25 13:04 Total Protein 7.3 g/dL (6.6-8.7) 11/01/25 04:37 Albumin 3.5 g/dL (3.5-5.2) 11/01/25 04:37 Globulin 3.8 g/dL (1.3-4.6) 11/01/25 04:37 Triglycerides 310 mg/dL (0-150) H 10/29/25 13:04 Cholesterol 257 mg/dL (0-200) H 10/29/25 13:04 LDL Cholesterol, Calc 153 mg/dL (50-129) H 10/29/25 13:04 HDL Cholesterol 42 mg/dL (60-100) L 10/29/25 13:04 LDL/HDL Ratio 3.64 RATIO (0.00-3.22) H 10/29/25 13:04 Cholesterol/HDL Ratio 6.12 mg/dL (0.0-4.40) H 10/29/25 13:04 Procalcitonin 0.10 ng/mL (0-0.5) 10/29/25 13:04 TSH 2.42 uIU/mL (0.27-4.20) 10/29/25 13:04 Urine Color Yellow (Yellow) 10/29/25 14:10 Urine Appearance Turbid (CLEAR) A 10/29/25 14:10 Urine pH 5.5 (5-7) 10/29/25 14:10 Ur Specific [place] 1.021 (1.005-1.030) 10/29/25 14:10 Urine Protein Trace (Negative) A 10/29/25 14:10 Urine Glucose (UA) Negative (Normal) 10/29/25 14:10 Urine Ketones Negative (Negative) 10/29/25 14:10 Urine Blood 1+ (Negative) A 10/29/25 14:10 Urine Nitrate Negative (Negative) 10/29/25 14:10 Urine Bilirubin Negative (Negative) 10/29/25 14:10 Urine Urobilinogen 1.0 mg/dL (Negative) 10/29/25 14:10 Ur Leukocyte Esterase 3+ (Negative) A 10/29/25 14:10 Urine RBC 3-5 /hpf (0-2) 10/29/25 14:10 Urine WBC >100 /hpf (0-5) H 10/29/25 14:10 Ur Squamous Epith Cells 21-50 /hpf (0-5) H 10/29/25 14:10 Amorphous Sediment Not Reportable 10/29/25 14:10 Urine Bacteria 4+ /hpf (NONE) H 10/29/25 14:10 Hyaline Casts 6.67 /lpf 10/29/25 14:10 Urine Opiates Screen Negative ng/mL (Negative) 10/29/25 14:10 Ur Barbiturates Screen Negative ng/mL (Negative) 10/29/25 14:10 Ur Phencyclidine Scrn Negative ng/mL (Negative) 10/29/25 14:10 Ur Amphetamines Screen Positive ng/mL (Negative) H 10/29/25 14:10 U Benzodiazepines Scrn Positive ng/mL (Negative) H 10/29/25 14:10 Urine Cocaine Screen Negative ng/mL (Negative) 10/29/25 14:10 U Marijuana (THC) Screen Negative ng/mL (Negative) 10/29/25 14:10 Vitals Last Vital Signs Temp 98.0 F 11/01/25 07:25 Pulse 100 11/01/25 07:25 Resp 18 11/01/25 08:39 BP 178/78 11/01/25 07:25 Pulse Ox 97 11/01/25 07:25 O2 Del Method Nasal Cannula 11/01/25 07:25 O2 Flow Rate 2 10/31/25 09:12 Discharge Plan Discharge Patient Disposition: Home Condition: Stable Prescriptions: New cephalexin 500 mg capsule 500 mg PO BID 7 Days Qty: 14 0RF Continued fenofibrate nanocrystallized 145 mg tablet 145 mg PO DAILY Qty: 90 3RF pantoprazole 40 mg tablet,delayed release (DR/EC) 40 mg PO DAILY Qty: 90 3RF methadone 40 mg tablet,soluble 10 mg PO Q6H mecobalamin (vitamin B12) 1,000 mcg tablet,chewable 1,000 mcg PO DAILY Qty: 90 0RF diazepam 5 mg tablet 5 mg PO DAILY PRN (Reason: anxiety) 30 Days Qty: 10 5RF furosemide 40 mg tablet 40 mg PO DAILY PRN (Reason: Edema) ketoconazole 2 % shampoo 1 applic TOPICAL .3XWEEKLY gabapentin 300 mg capsule 300 mg PO TID fluticasone propionate [Flonase Allergy Relief] 50 mcg/actuation spray,suspension 1 spray intranasal DAILY PRN (Reason: nasal congestion) Rx Instructions: administer into each nostril atenolol 50 mg tablet 50 mg PO BID tizanidine 4 mg tablet 4 mg PO Q8H PRN (Reason: Muscle Spasticity) prochlorperazine maleate 10 mg tablet 10 mg PO BID PRN (Reason: Nausea And Vomiting) lidocaine-prilocaine 2.5-2.5 % cream 1 applic topical BID nystatin 100,000 unit/gram powder 1 applic topical BID losartan 100 mg tablet 100 mg PO DAILY metformin 500 mg tablet extended release 24 hr 500 mg PO BID potassium chloride 20 mEq tablet extended release 20 meq PO BID Discharge Order = DC NOW: Discharge Order (Routine); Ordered 11/01/25 Ordered By: Pamela Love Other Ambulatory Orders: DME: Oxygen (Order) Location: None Selected Ordered By: Pamela Love Referrals: Wilner Hdez DO [Primary Care Provider, Family Practice] - 11/04/25 2:00 pm Casey Champagne MD [Physician, Wound Care] - 11/09/25 1:15 pm Discharge Diet: Usual diet Discharge Activity: Resume usual activity Patient Instructions: Opioid Safety, Patient Portal & Matthias Instructions Activity Restrictions/Additional Instructions: Clean cellulitis daily with hibiclens soap and water and cover area with xeroform guaze and dry guaze with roller kerlix and either usman wrap or coban or both. Do not apply wraps too tightly. Discharge Attestations Time Spent in Discharge Care*: greater than 30 min Status at Discharge: Cognitive status at discharge: cognitively intact , Behavioral status at discharge: cooperative , Quality Metrics Clinical Quality Measures [ No reported AMI, CVA or VTE this stay] Coding Level of Care Code 01789 Diagnoses Acute UTI N39.0 Cellulitis L03.115 Laterality: right Site of cellulitis: extremity Site of cellulitis of extremity: lower extremity Unstageable pressure ulcer of sacral region L89.150 Hx of left BKA Z89.512 Anxiety F41.9 Type 2 diabetes mellitus with diabetic peripheral angiopathy without gangrene, without long-term current use of insulin E11.51 Diabetes mellitus complication detail: with peripheral angiopathy without gangrene Diabetes mellitus complication status: with circulatory complication Diabetes mellitus intermission coordinator insulin use: without intermission coordinator use GERD without esophagitis K21.9 Unable to ambulate R26.2 Essential hypertension I10 Right above-knee amputee Z89.611
[2025-11-01 10:09] VITALS: PULSE 96; RESP 17; O2SAT 96
[2025-11-01 11:18] VITALS: BP 178/78; PULSE 96; RESP 17; TEMP 36.7; O2SAT 96
--- NOTE | 2025-11-01 12:36 | PC.SOCIAL ---
IMM update pg 2 of IMM updated and reviewed w/ patient. Copy provided and copy dated, initialed and placed in chart.
== END 2025-11-01 11:19 | disposition home or self-care (01) | DRG 564 ==
LOC: ER 14:59 → MEDSURG 16:06
PROVIDERS: Admitting Provider Student in an Organized Health Care Education/Training Program; Emergency Provider Emergency Medicine; PCP Family Medicine; Visit Provider Registered Nurse
DX: T87.44 Infection of amputation stump, left lower extremity (principal); G93.41 Metabolic encephalopathy; N39.0 Urinary tract infection, site not specified; L03.116 Cellulitis of left lower limb; I50.32 Chronic diastolic (congestive) heart failure; J96.12 Chronic respiratory failure with hypercapnia; J96.11 Chronic respiratory failure with hypoxia; L89.150 Pressure ulcer of sacral region, unstageable; I11.0 Hypertensive heart disease with heart failure; J44.9 Chronic obstructive pulmonary disease, unspecified; E11.42 Type 2 diabetes mellitus with diabetic polyneuropathy; R26.2 Difficulty in walking, not elsewhere classified; B37.2 Candidiasis of skin and nail; E11.9 Type 2 diabetes mellitus without complications; K21.9 Gastro-esophageal reflux disease without esophagitis; F41.8 Other specified anxiety disorders; G89.29 Other chronic pain; F17.210 Nicotine dependence, cigarettes, uncomplicated; Z89.512 Acquired absence of left leg below knee; I27.20 Pulmonary hypertension, unspecified; Z89.611 Acquired absence of right leg above knee; Z79.84 Long term (current) use of oral hypoglycemic drugs; Z85.118 Personal history of other malignant neoplasm of bronchus and lung; Z86.711 Personal history of pulmonary embolism; Z88.5 Allergy status to narcotic agent; Z88.8 Allergy status to other drugs, medicaments and biological substances; Z91.048 Other nonmedicinal substance allergy status; Z92.3 Personal history of irradiation; Z91.199 Patient's noncompliance with other medical treatment and regimen due to unspecified reason; Z99.3 Dependence on wheelchair; Z86.718 Personal history of other venous thrombosis and embolism
CPT/HCPCS: 36415; 36416; 36600; 51702; 70450; 71045; 73590; 73701; 80051; 80053; 80061; 80306; 81001; 82330; 82805; 82962; 83036; 83605; 83735; 84145; 84443; 85025; 85651; 86140; 87040; 87077; 87086; 87186; 94760; 96365; 96372; 96375; 99285; J0692; J1650; J1815; J2020; J2405; J7030; J9999

== ENCOUNTER → 2025-11-09 12:48 | Outpatient (BNVA) | payer MEDICARE, MEDICAID, SELFPAY | PROVIDERS: PCP Family Medicine; Visit Provider Thoracic Surgery (Cardiothoracic Vascular Surgery) | DX: I96 Gangrene, not elsewhere classified (principal); L89.152 Pressure ulcer of sacral region, stage 2; S81.002A Unspecified open wound, left knee, initial encounter; X58.XXXD Exposure to other specified factors, subsequent encounter | CPT/HCPCS: 97597; 97598; 99213; A6212 ==

== ENCOUNTER → 2025-11-17 13:02 | Outpatient (BNVA) | payer MEDICARE, MEDICAID, SELFPAY | PROVIDERS: PCP Family Medicine; Visit Provider Thoracic Surgery (Cardiothoracic Vascular Surgery) | DX: I96 Gangrene, not elsewhere classified (principal); L89.152 Pressure ulcer of sacral region, stage 2; S81.002D Unspecified open wound, left knee, subsequent encounter; X58.XXXD Exposure to other specified factors, subsequent encounter | CPT/HCPCS: 97597; 97598 ==